=== PATIENT | female | born 1955 | race Caucasian/White ===

== ENCOUNTER 2016-07-05 10:44 | Emergency (ER) | payer MEDICARE, MEDICAID ==
[~2016-07-05] VITALS: Ht 162.6 cm; Wt 68.5 kg
[~2016-07-05 10:44] MED LIST: ALPR0.5T PO; AMLO5TAB2 PO; AMLO5TAB4 PO; CIPR500T94 PO; CLON0.5T PO; CLON1PAT2; DICY10CA53 PO; DOXY100T PO; DULO30CA2; DULO30CA2 PO; DULO60CA6 PO; ESCI10TA PO; ESOM40CA; ESOM40CA PO; FENT1PAT91 TP; FLUC100T7 PO; HYDR-971 PO; HYDR2TAB13 PO; HYDR4TAB13; HYDR4TAB13 PO; LEVO75TA PO; LIDO700A4 TP; LIPA1CAP12 PO; LISI10TA2 PO; LORA-434 PO; LORA2TAB PO; LORA2TAB89 PO; METO10TA81 PO; METO5VIA4 PO; METR500T PO; MORP30TA83 PO; NYST15CR2 TP; ONDA4TAB10 PO; OXYC10TA PO; OXYC10TA32; OXYC15TA60 PO; OXYC1TAB7 PO; OXYC1TAB9 PO; SILV400C TP; SIMV20TA3 PO; SULF1TAB24 PO; Sulfamethoxazole/Trimethoprim PO; TRAZ50TA15 PO; VANC125C2 PO; VITS56.7 TP; Vancomycin Hcl PO; ZOLP5TAB PO
[2016-07-05] MEDS ORDERED: LIDO:MAALOX:DONNATAL 1:1:1 15 ML SINGLE DOSE SWSW ONE (11:00)
[2016-07-05] MEDS ORDERED: ONDANSETRON PF 4 MG/2 ML VIAL. IV ONE (11:00)
[2016-07-05] MEDS ORDERED: IV NORMAL SALINE 1000ML BAG 1,000 ML IV SCH (11:00)
[2016-07-05 11:22] LABS: BILIRUBIN,URINE NEGATIVE (NEG); GLUCOSE,URINE NEGATIVE (NEG); NITRITE,URINE NEGATIVE (NEG); PH,URINE 6.5; PROTEIN,URINE >=300 mg/dL (NEG-TRACE); UROBILINOGEN,URINE 0.2 mg/dL (0.2 mg/dL)
--- NOTE | 2016-07-05 11:22 | EKG ---
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
--- NOTE | 2016-07-05 11:24 | PHYS DOC ---
Past Medical History Past Medical History: Alcoholism, Anxiety, Arthritis Additional Past Medical Histor: c diff, chronic n/v/d and abdominal pain, gastritis, renal insufficiency, Past Surgical History: Knee Replacement, Other Additional Past Surgical Histo: back and foot surger, LEFT KNEE REPLACEMENT X2 Additional Information: non-smoker Alcohol Use: Heavy Drug Use: None Adult General Chief Complaint Chief Complaint: ABDOMINAL PAIN HPI HPI Patient is a 60 year old female who presents with nausea, vomiting, and epigastric pain starting yesterday. She estimates approximately 10 episodes of emesis in the last 24 hours. She denies fevers, diarrhea, chest pain, or shortness of breath. She has a history of gastroparesis. She reports that she took 1 Reglan yesterday and another this morning at 0730. She vomited shortly after taking the Reglan this morning, however did not see the pill in the vomitus. She has a history of heavy alcohol use. She admits to drinking on and had one beer yesterday. She vomited shortly after drinking the period. She states that she is trying to quit drinking. She also has a history of hypertension. She did not take her blood pressure medication this morning. Upon arrival to the emergency department, her blood pressure significantly elevated and she is tachycardic. She states that she believes her pulse is high because she is in pain. She also informs me that she is allergic to morphine and Dilaudid is the only medication that ever helps her pain; fentanyl does not work. The patient has been seen in this emergency department 13 times in the past year, mostly for her chronic nausea, vomiting, and abdominal pain. She does not have a PCP. She has seen Dr. Amezquita with GI. Review of Systems Review of Systems Constitutional: Denies fever or chills. [] Eyes: Denies change in visual acuity, redness, or eye pain. [] HENT: Denies ear pain, nasal congestion or sore throat. [] Respiratory: Denies cough or shortness of breath. [] Cardiovascular: Denies chest pain. [] GI: Denies bloody stools or diarrhea. Reports nausea, vomiting, and epigastric pain. : Denies dysuria, hematuria or urinary frequency. [] Musculoskeletal: Denies back pain or joint pain. [] Integument: Denies rash or skin lesions. [] Neurologic: Denies headache, focal weakness or sensory changes. [] Endocrine: Denies polyuria or polydipsia. [] Psych: Denies anxiety or depression. [] All systems reviewed and negative unless otherwise stated in the HPI. Current Medications Current Medications Current Medications Medications (Trade) Dose Ordered Sig/Taz Start Time Stop Time Status Last Admin Dose Admin Ceftriaxone Sodium 1 gm/ Sodium Chloride 50 ml @ 100 mls/hr Q24H 07/06/16 13:00 07/06/16 13:00 DC Ceftriaxone Sodium (Rocephin 1gm Ivpb For Omni) 50 ml @ 100 mls/hr 1X ONCE 07/05/16 12:45 07/05/16 13:14 DC 07/05/16 12:46 100 MLS/HR Hydromorphone HCl 0.25 mg 0.25 mg PRN Q15MIN PRN 07/05/16 11:00 07/05/16 14:07 DC 07/05/16 12:27 0.25 MG Labetalol HCl 10 mg 10 mg 1X ONCE 07/05/16 12:45 07/05/16 12:46 DC 07/05/16 12:47 10 MG Multi-Ingredient Mouthwash/Gargle (Gi Cocktail Single Dose) 15 ml 1X ONCE 07/05/16 11:00 07/05/16 11:04 DC 07/05/16 11:20 15 ML Ondansetron HCl (Zofran) 4 mg 1X ONCE 07/05/16 11:00 07/05/16 11:04 DC 07/05/16 11:26 4 MG Sodium Chloride 1,000 ml @ 1,000 mls/hr 1X ONCE 07/05/16 12:45 07/05/16 13:44 DC 07/05/16 12:46 1,000 MLS/HR Sodium Chloride (Iv Sodium Chloride 0.9% 1000ml Bag) 1,000 ml @ 1,000 mls/hr Q1H 07/05/16 11:00 07/05/16 11:59 DC 07/05/16 11:20 1,000 MLS/HR Allergies Allergies Allergies Coded Allergies Type Severity Reaction Last Updated Verified levofloxacin Allergy Intermediate 01/27/16 Yes morphine Allergy Intermediate tolerates Dilaudid 01/27/16 Yes I S O L A T I O N *CONTACT* Allergy Unknown 04/06/16 Yes diphenhydramine HCl Adverse Reaction Intermediate "Jittery on the inside" 01/26 Yes Physical Exam Physical Exam Constitutional: Well developed, well nourished, no acute distress, non-toxic appearance. [] HENT: Normocephalic, atraumatic, oropharynx moist. [] Eyes: PERRLA, EOMI, conjunctiva normal, no discharge. [] Neck: Normal range of motion, no tenderness, supple, no stridor. [] Cardiovascular: Tachycardia, regular rhythm, no murmur. [] Lungs & Thorax: Bilateral breath sounds clear to auscultation without wheezes, rales, or rhonchi. [] Abdomen: Bowel sounds normal, soft, epigastric tenderness, no masses, no pulsatile masses. [] Skin: Warm, dry, no erythema, no rash. [] Extremities: No tenderness, ROM intact, no edema. 2+ DP pulses bilaterally. [] Neurologic: Alert and oriented X 3, normal motor function, normal sensory function, no focal deficits noted. [] Psychologic: Affect normal, judgement normal, mood normal. [] Current Patient Data Vital Signs Vital Signs Date Time Temp Pulse Resp B/P Pulse Ox O2 Delivery O2 Flow Rate FiO2 07/05/16 13:28 94 20 189/105 94 07/05/16 10:55 98.6 Room Air 98.6 Lab Values Laboratory Tests Test 07/05/16 10:50 07/05/16 11:25 Urine Collection Type Unknown Urine Color Yellow Urine Clarity Cloudy Urine pH 6.5 Urine Specific [place] 1.020 Urine Protein >=300mg/dL (NEG-TRACE) Urine Glucose (UA) Negativemg/dL (NEG) Urine Ketones (Stick) Negativemg/dL (NEG) Urine Blood Moderate (NEG) Urine Nitrite Negative (NEG) Urine Bilirubin Negative (NEG) Urine Urobilinogen Dipstick 0.2mg/dL (0.2 mg/dL) Urine Leukocyte Esterase Small (NEG) Urine RBC 3-5/HPF (0-2) Urine WBC 20-40/HPF (0-4) Urine Squamous Epithelial Cells Few/LPF Urine Bacteria Many/HPF (0-FEW) Urine Hyaline Casts Occasional/HPF White Blood Count 12.1x10^3/uL (4.0-11.0) H Red Blood Count 4.57x10^6/uL (3.50-5.40) Hemoglobin 14.3g/dL (12.0-15.5) Hematocrit 42.4% (36.0-47.0) Mean Corpuscular Volume 93fL (79-100) Mean Corpuscular Hemoglobin 31pg (25-35) Mean Corpuscular Hemoglobin Concent 34g/dL (31-37) Red Cell Distribution Width 17.0% (11.5-14.5) H Platelet Count 420x10^3/uL (140-400) #H Neutrophils (%) (Auto) 87% (31-73) H Lymphocytes (%) (Auto) 8% (24-48) L Monocytes (%) (Auto) 5% (0-9) Eosinophils (%) (Auto) 0% (0-3) Basophils (%) (Auto) 1% (0-3) Neutrophils # (Auto) 10.5x10^3uL (1.8-7.7) H Lymphocytes # (Auto) 0.9x10^3/uL (1.0-4.8) L Monocytes # (Auto) 0.6x10^3/uL (0.0-1.1) Eosinophils # (Auto) 0.0x10^3/uL (0.0-0.7) Basophils # (Auto) 0.1x10^3/uL (0.0-0.2) Segmented Neutrophils % 86% (35-66) H Lymphocytes % 6% (24-48) L Monocytes % 7% (0-10) Basophils % 1% (0-3) Platelet Estimate Increased (ADEQUATE) Stomatocytes Occ Sodium Level 136mmol/L (136-145) Potassium Level 3.0mmol/L (3.5-5.1) L Chloride Level 92mmol/L (98-107) L Carbon Dioxide Level 24mmol/L (21-32) Anion Gap 20 (6-14) H Blood Urea Nitrogen 20mg/dL (7-20) Creatinine 2.4mg/dL (0.6-1.0) H Estimated GFR (Cockcroft-Gault) 20.7 BUN/Creatinine Ratio 8 (6-20) Glucose Level 133mg/dL (70-99) H Calcium Level 10.9mg/dL (8.5-10.1) H Total Bilirubin 0.5mg/dL (0.2-1.0) Aspartate Amino Transferase (AST) 33U/L (15-37) Alanine Aminotransferase (ALT) 27U/L (14-59) Alkaline Phosphatase 87U/L (46-116) Troponin I Quantitative 0.017ng/mL (0.000-0.055) Total Protein 9.5g/dL (6.4-8.2) H Albumin 4.3g/dL (3.4-5.0) Albumin/Globulin Ratio 0.8 (1.0-1.7) L Lipase 171U/L (73-393) Laboratory Tests 07/05/16 11:25 Laboratory Tests 07/05/16 11:25 EKG EKG EKG at 1107. Heart rate 124 bpm. Sinus tachycardia without acute ischemic changes or STEMI, as interpreted by Dr. Landa. Radiology/Procedures Radiology/Procedures REASON: epigastric pain, n/v PROCEDURE: ACUTE ABDOMEN SERIES Abdomen series with chest, 3 views, 07/05/2016: History: Epigastric pain, nausea and vomiting The abdominal gas pattern is unremarkable. No free air seen in the abdomen. There is no evidence of organomegaly. Lower pelvic calcifications are probably phleboliths. There is a mild thoracolumbar scoliosis. Surgical rods and screws are present in the lower lumbar spine. The heart size and pulmonary vascularity are normal. No pulmonary infiltrates are seen. There is no evidence of pleural fluid. IMPRESSION: No acute abdominal abnormality is detected. Course & Med Decision Making Course & Med Decision Making Pertinent Labs and Imaging studies reviewed. (See chart for details) The patient is a 60-year-old female with history of chronic abdominal pain with nausea and vomiting who presents with epigastric pain with nausea and vomiting starting yesterday. On exam, her abdomen is soft and nonsurgical with epigastric tenderness. Upon arrival to the emergency department, her blood pressure significantly elevated and she is tachycardic. She is afebrile. She did not take her blood pressure medication today. EKG shows a sinus rhythm without acute ischemic changes or STEMI. Initial troponin level is negative. Abdominal x-ray does not show any obstruction or other acute abnormalities. Urine is positive for infection. There are no other significant laboratory abnormalities. Her pain improved with IV Dilaudid, given in small doses. She is given a dose of IV labetalol to decrease her blood pressure in her heart rate with adequate results. Heart rate decreased to 90s with blood pressure 190s/ 100s. She was also given a dose of Rocephin in the emergency department for her UTI. Patient is instructed to follow-up with her GI doctor. She is encouraged to establish a primary care doctor as well. She states that she has tried this in the past but has been denied due to her ongoing pain issues. We discussed the relationship of alcohol with gastritis. We also discussed the potential for both alcohol and narcotic withdrawal as possible causes of her symptoms. She states that she has detoxed from alcohol in the past and has never had withdrawal symptoms. She informs me that she has not taken narcotics at home for approximately 8 months. She has however been seen in the emergency department and admitted to the hospital many times for pain related issues and discharged home with narcotic medications. Today she is discharged home in stable condition with prescription for UTI, Zofran, and #10 [place]. She is again given contact information for Dr. Amezquita with GI for follow-up. Patient verbalizes understanding of all of the above and agrees with plan. Dragon Disclaimer Dragon Disclaimer This electronic medical record was generated, in whole or in part, using a voice recognition dictation system. Departure Departure Impression: Primary Impression: UTI (urinary tract infection) Additional Impressions: Abdominal pain Nausea & vomiting Disposition: 01 HOME, SELF-CARE Condition: IMPROVED Referrals: PREET AMEZQUITA MD Patient Instructions: Abdominal Pain, Ymsd-de-Payn, Nausea and Vomiting, Easy- to-Read, Urinary Tract Infection, Mlcc-[id number] Additional Instructions: Your urine shows a urinary tract infection. Please complete all the prescribed antibiotics. Please follow-up with your GI doctor regarding your abdominal pain with nausea and vomiting. Return to the emergency department if you have continued nausea and vomiting, severe pain, diarrhea, fever, or other new or concerning symptoms. Scripts Ondansetron (Zofran Odt)4 Mg Tab.rapdis1 Tab SL Q8HRS #10 TAB Prov:MANUEL CAVANAUGH 07/05/16 Hydrocodone/Apap 5-325 ([place] 5-325 Tablet)1 Each Tablet1 Tab PO PRN Q6HRS PRN PAIN #10 TAB Prov:MANUEL CAVANAUGH 07/05/16 Cephalexin (Keflex)500 Mg Capsule1 Cap PO BID #14 CAP Prov:MANUEL CAVANAUGH 07/05/16 Problem Qualifiers Primary Impression: UTI (urinary tract infection) Urinary tract infection type: acute cystitis Hematuria presence: with hematuria Qualified Code: N30.01 - Acute cystitis with hematuria Additional Impressions: Abdominal pain Abdominal location: epigastric Qualified Code: R10.13 - Epigastric pain Nausea & vomiting Vomiting type: unspecified Vomiting Intractability: non-intractable Qualified Code: R11.2 - Nausea with vomiting, unspecified MANUEL CAVANAUGH Jul 05, 2016 11:24
[2016-07-05] MEDS: HYDROMORPHONE 2 MG/ML VIAL. IV/SQ PRN ×2 (11:26→12:27)
--- NOTE | 2016-07-05 11:29 | RAD ---
Abdomen series with chest, 3 views, 07/05/2016: History: Epigastric pain, nausea and vomiting The abdominal gas pattern is unremarkable. No free air seen in the abdomen. There is no evidence of organomegaly. Lower pelvic calcifications are probably phleboliths. There is a mild thoracolumbar scoliosis. Surgical rods and screws are present in the lower lumbar spine. The heart size and pulmonary vascularity are normal. No pulmonary infiltrates are seen. There is no evidence of pleural fluid. IMPRESSION: No acute abdominal abnormality is detected.
[2016-07-05 11:37] LABS: BASO # 0.1 x10^3/uL (0.0-0.2); BASO % 1 % (0-3); EOS % 0 % (0-3); HEMATOCRIT 42.4 % (36.0-47.0); HEMOGLOBIN 14.3 g/dL (12.0-15.5); LYMPH # 0.9 x10^3/uL (1.0-4.8); LYMPH % 8 % (24-48); MEAN CORPUSCULAR HEMOGLOBIN 31 pg (25-35); MEAN CORPUSCULAR HGB CONC 34 g/dL (31-37); MEAN CORPUSCULAR VOLUME 93 fL (79-100); MONO % 5 % (0-9); NEUT % 87 % (31-73); PLATELET COUNT 420 x10^3/uL (140-400); RED BLOOD COUNT 4.57 x10^6/uL (3.50-5.40); WHITE BLOOD COUNT 12.1 x10^3/uL (4.0-11.0)
[2016-07-05 11:39] LABS: BACTERIA,URINE MANY /HPF (0-FEW); SQUAMOUS EPITHELIAL CELL,UR FEW /LPF; WBC,URINE 20-40 /HPF (0-4)
[2016-07-05 11:39] LABS: CALCIUM 10.9 mg/dL (8.5-10.1); CREATININE 2.4 mg/dL (0.6-1.0); GFR 20.7
[2016-07-05 11:45] LABS: ALBUMIN 4.3 g/dL (3.4-5.0); ALBUMIN/GLOBULIN RATIO 0.8 (1.0-1.7); TOTAL BILIRUBIN 0.5 mg/dL (0.2-1.0); TOTAL PROTEIN 9.5 g/dL (6.4-8.2)
[2016-07-05] MEDS ORDERED: CEFTRIAXONE 1GM IVPB FOR OMNI 50 ML IV ONE (12:45)
[2016-07-05] MEDS ORDERED: IV NORMAL SALINE 1000ML BAG 1,000 ML IV ONE (12:45)
[2016-07-05] MEDS ORDERED: LABETALOL 20 MG/4 ML DISP.SYRIN. IVP ONE (12:45)
[2016-07-05 13:24] LABS: % BASOS 1 % (0-3)
[2016-07-05 13:25] LABS: PLT ESTIMATE INCREASED (ADEQUATE)
[2016-07-05 13:27] LABS: STOMATOCYTES OCC
[2016-07-05 13:28] VITALS: BP 189/105
[2016-07-05] MEDS ORDERED: CEPH-264 PO (13:42)
[2016-07-05] MEDS ORDERED: ONDA4TAB10 SL (13:42)
[2016-07-05] MEDS ORDERED: HYDR-971 PO (13:42)
[2016-07-06] MEDS ORDERED: CEFTRIAXONE SODIUM 1 GM in IV NORMAL SALINE 50ML 50 ML IV SCH (13:00)
[2016-07-10] MEDS ORDERED: HYDR2TAB13 PO (13:03)
== END 2016-07-05 14:07 | disposition home or self-care (01) ==
LOC: ER 10:44
DX: N39.0 Urinary tract infection, site not specified (principal); R11.2 Nausea with vomiting, unspecified; R10.13 Epigastric pain; F41.9 Anxiety disorder, unspecified; M19.90 Unspecified osteoarthritis, unspecified site; Z96.659 Presence of unspecified artificial knee joint; F10.20 Alcohol dependence, uncomplicated; Y90.9 Presence of alcohol in blood, level not specified; Z88.5 Allergy status to narcotic agent; Z88.8 Allergy status to other drugs, medicaments and biological substances; Z88.1 Allergy status to other antibiotic agents; Z91.041 Radiographic dye allergy status
CPT/HCPCS: 99285; J0690; J1170; J2405; J3490; J7030; 36415; 74022; 80053; 81001; 83690; 84484; 85007; 85027; 87086; 87186; 93005

== ENCOUNTER 2016-08-13 11:57 | Inpatient (IN) | payer MEDICARE, MEDICAID ==
[~2016-08-13] VITALS: Ht 154.9 cm; Wt 68.0 kg
[~2016-08-13 11:57] MED LIST changes: +ACET325T16 PO; +ACID1TAB14 PO; +CEPH-264 PO; +ESOM20CA30 PO; +IBUP-1060 PO; +ONDA4TAB10 SL; +OSEL30CA PO; +OXYC5TAB PO
[2016-08-13] MEDS ORDERED: FENTANYL PF 100 MCG/2 ML VIAL. IV ONE (14:30)
[2016-08-13] MEDS ORDERED: IV NORMAL SALINE 500ML BAG 500 ML IV ONE (14:30)
--- NOTE | 2016-08-13 14:42 | EKG ---
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
[2016-08-13 14:52] LABS: CALCIUM 9.2 mg/dL (8.5-10.1); CREATININE 2.8 mg/dL (0.6-1.0); GFR 17.3; POTASSIUM 4.5 mmol/L (3.5-5.1)
[2016-08-13 14:53] LABS: BASO % 0 % (0-3); EOS % 3 % (0-3); HEMATOCRIT 31.7 % (36.0-47.0); HEMOGLOBIN 10.4 g/dL (12.0-15.5); LYMPH # 2.4 x10^3/uL (1.0-4.8); LYMPH % 20 % (24-48); MEAN CORPUSCULAR HEMOGLOBIN 31 pg (25-35); MEAN CORPUSCULAR HGB CONC 33 g/dL (31-37); MEAN CORPUSCULAR VOLUME 94 fL (79-100); MONO % 13 % (0-9); NEUT % 64 % (31-73); PLATELET COUNT 385 x10^3/uL (140-400); RED BLOOD COUNT 3.37 x10^6/uL (3.50-5.40); RED CELL DISTRIBUTION WIDTH 15.8 % (11.5-14.5); WHITE BLOOD COUNT 12.1 x10^3/uL (4.0-11.0)
[2016-08-13 14:53] LABS: BILIRUBIN,URINE NEGATIVE (NEG); GLUCOSE,URINE NEGATIVE (NEG); NITRITE,URINE NEGATIVE (NEG); PROTEIN,URINE 100 mg/dL (NEG-TRACE); UROBILINOGEN,URINE 0.2 mg/dL (0.2 mg/dL)
[2016-08-13 15:13] LABS: BACTERIA,URINE MANY /HPF (0-FEW); RBC,URINE OCC /HPF (0-2); WBC,URINE >40 /HPF (0-4)
[2016-08-13 15:14] LABS: BARBITURATES NEG (NEG); BENZODIAZEPINES NEG (NEG); CANNABINOIDS NEG (NEG); COCAINE NEG (NEG); METHADONE NEG (NEG); OPIATES NEG (NEG); PHENCYCLIDINE NEG (NEG); SQUAMOUS EPITHELIAL CELL,UR OCC /LPF
--- NOTE | 2016-08-13 15:49 | RAD ---
INDICATION: multiple falls with head and neck pain COMPARISON: 08/11/2016 TECHNIQUE: Axial CT images obtained through the head and cervical spine without intravenous contrast. FINDINGS: No intracranial hemorrhage. No midline shift. Basal cisterns patents. Ventricles and sulci are globally prominent. Eastman white differentiation is maintained without evidence of acute ischemia to large vessel territory. No acute osseous abnormality. Orbits and paranasal sinuses unremarkable. Scattered foci of low attenuation within the white matter. Cervical spine: No definite acute fracture or dislocation. No paravertebral hematoma. Degenerative changes. IMPRESSION: 1. No acute intracranial hemorrhage. 2. Scattered regions of low attenuation within the white matter. Non-specific in nature but frequently secondary to chronic small vessel ischemic disease. 3. Prominence of ventricles and sulci which is frequently secondary to age related volume loss. 4. Degenerative changes without acute fracture of cervical spine. 5. Apparent 20 x 7 mm expansile lytic focus in the right posterior aspect of the calvarium this has been present since at least 2008 and therefore would favor benign causes. May be slightly increased in size. PQRS Compliance Statement: One or more of the following individualized dose reduction techniques were utilized for this examination: 1. Automated exposure control 2. Adjustment of the mA and/or kV according to patient size 3. Use of iterative reconstruction technique
--- NOTE | 2016-08-13 16:30 | PHYS DOC ---
Past Medical History Past Medical History: Alcoholism, Anxiety, Arthritis Additional Past Medical Histor: c diff, chronic n/v/d and abdominal pain, gastritis, renal insufficiency Past Surgical History: Knee Replacement, Other Additional Past Surgical Histo: back and foot surger, LEFT KNEE REPLACEMENT X2 Alcohol Use: Occasionally Drug Use: None Adult General Chief Complaint Chief Complaint: LOWER BACK PAIN OR INJURY HPI HPI Patient is a 60 year old female who suffers from alcoholism and chronic pain who presents by EMS for severe pain all over her body and multiple falls recently. She states she gets up and her legs follow-up from under her. She has fallen multiple times in the past few days and hit her head each time. She notes severe pain all over her body and cannot localize what hurts the worst. She denies any focal bony pain. She denies chest pain, dyspnea, abdominal pain, nausea or vomiting, fever or chills, vision changes, numbness, tingling, bowel or bladder dysfunction, saddle anesthesia. She states she is taking no [id number] medicines for her chronic or acute pain. Review of Systems Review of Systems Constitutional: Denies fever or chills [] Eyes: Denies change in visual acuity, redness, or eye pain [] HENT: Denies nasal congestion or sore throat [] Respiratory: Denies cough or shortness of breath [] Cardiovascular: No additional information not addressed in HPI [] GI: Denies abdominal pain, nausea, vomiting, bloody stools or diarrhea [] : Denies dysuria or hematuria [] Musculoskeletal: Denies specific joint pain [] Integument: Denies rash or skin lesions [] Neurologic: Denies focal weakness or sensory changes [] Endocrine: Denies polyuria or polydipsia [] Current Medications Current Medications Current Medications Medications (Trade) Dose Ordered Sig/Taz Start Time Stop Time Status Last Admin Dose Admin Fentanyl Citrate (Fentanyl 2ml Vial) 50 mcg 1X ONCE 08/13/16 14:30 08/13/16 14:31 DC 08/13/16 14:37 50 MCG Sodium Chloride (Iv Sodium Chloride 0.9% 500ml Bag) 500 ml @ 500 mls/hr 1X ONCE 08/13/16 14:30 08/13/16 15:29 DC 08/13/16 14:30 500 MLS/HR Allergies Allergies Allergies Coded Allergies Type Severity Reaction Last Updated Verified levofloxacin Allergy Intermediate 07/26/16 Yes morphine Allergy Intermediate tolerates Dilaudid 07/26/16 Yes I S O L A T I O N *CONTACT* Allergy Unknown 07/26/16 Yes diphenhydramine HCl Adverse Reaction Intermediate "Jittery on the inside" 07/26 Yes Physical Exam Physical Exam Constitutional: Well developed, well nourished, mild distress, non-toxic appearance. Constantly adjusting position in bed. Smells of poor hygiene. [] HENT: Normocephalic, atraumatic, bilateral external ears normal, oropharynx moist, no oral exudates, nose normal. [] Eyes: PERRLA, EOMI, conjunctiva normal, no discharge. [] Neck: Normal range of motion, no tenderness, supple. [] Cardiovascular:Heart rate regular rhythm [] Lungs & Thorax: Bilateral breath sounds clear to auscultation [] Abdomen: Bowel sounds normal, soft, no tenderness. [] Skin: Warm, dry, no erythema, no rash. [] Back: No midline spinal tenderness, no CVA tenderness. Has diffuse bilateral paraspinal tenderness with no visual or palpable abnormality. [] Extremities: No focal bony tenderness, ROM intact, no edema. [] Neurologic: Alert and oriented X 3, normal motor function, normal sensory function, no focal deficits noted, cranial nerves II through XII intact. [] Psychologic: Affect normal, judgement normal, mood normal. [] Current Patient Data Vital Signs Vital Signs Date Time Temp Pulse Resp B/P Pulse Ox O2 Delivery O2 Flow Rate FiO2 08/13/16 16:00 74 20 141/81 97 08/13/16 13:15 97.8 Room Air 97.8 Lab Values Laboratory Tests Test 08/13/16 14:30 08/13/16 14:40 White Blood Count 12.1x10^3/uL (4.0-11.0) H Red Blood Count 3.37x10^6/uL (3.50-5.40) L Hemoglobin 10.4g/dL (12.0-15.5) L Hematocrit 31.7% (36.0-47.0) L Mean Corpuscular Volume 94fL (79-100) Mean Corpuscular Hemoglobin 31pg (25-35) Mean Corpuscular Hemoglobin Concent 33g/dL (31-37) Red Cell Distribution Width 15.8% (11.5-14.5) H Platelet Count 385x10^3/uL (140-400) Neutrophils (%) (Auto) 64% (31-73) Lymphocytes (%) (Auto) 20% (24-48) L Monocytes (%) (Auto) 13% (0-9) H Eosinophils (%) (Auto) 3% (0-3) Basophils (%) (Auto) 0% (0-3) Neutrophils # (Auto) 7.7x10^3uL (1.8-7.7) Lymphocytes # (Auto) 2.4x10^3/uL (1.0-4.8) Monocytes # (Auto) 1.6x10^3/uL (0.0-1.1) H Eosinophils # (Auto) 0.4x10^3/uL (0.0-0.7) Basophils # (Auto) 0.0x10^3/uL (0.0-0.2) Sodium Level 134mmol/L (136-145) L Potassium Level 4.5mmol/L (3.5-5.1) Chloride Level 103mmol/L (98-107) Carbon Dioxide Level 25mmol/L (21-32) Anion Gap 6 (6-14) Blood Urea Nitrogen 21mg/dL (7-20) H Creatinine 2.8mg/dL (0.6-1.0) H Estimated GFR (Cockcroft-Gault) 17.3 Glucose Level 96mg/dL (70-99) Calcium Level 9.2mg/dL (8.5-10.1) Creatine Kinase 128U/L (26-192) Urine Collection Type U cath Urine Color Yellow Urine Clarity Cloudy Urine pH 6.0 Urine Specific [place] 1.010 Urine Protein 100mg/dL (NEG-TRACE) Urine Glucose (UA) Negativemg/dL (NEG) Urine Ketones (Stick) Negativemg/dL (NEG) Urine Blood Small (NEG) Urine Nitrite Negative (NEG) Urine Bilirubin Negative (NEG) Urine Urobilinogen Dipstick 0.2mg/dL (0.2 mg/dL) Urine Leukocyte Esterase Large (NEG) Urine RBC Occ/HPF (0-2) Urine WBC >40/HPF (0-4) Urine Squamous Epithelial Cells Occ/LPF Urine Transitional Epithelial Cells Occ/LPF Urine Renal Epithelial Cells Occ/LPF Urine Bacteria Many/HPF (0-FEW) Urine Mucus Slight/LPF Urine Opiates Screen Neg (NEG) Urine Methadone Screen Neg (NEG) Urine Barbiturates Neg (NEG) Urine Phencyclidine Screen Neg (NEG) Urine Amphetamine/Methamphetamine Neg (NEG) Urine Benzodiazepines Screen Neg (NEG) Urine Cocaine Screen Neg (NEG) Urine Cannabinoids Screen Neg (NEG) Urine Ethyl Alcohol (NEG) Laboratory Tests 08/13/16 14:30 Laboratory Tests 08/13/16 14:30 EKG EKG EKG as interpreted by me as normal sinus rhythm, rate 74, no ST-T changes, normal intervals, no ectopy Radiology/Procedures Radiology/Procedures CT head and C-spine without contrast IMPRESSION: 1. No acute intracranial hemorrhage. 2. Scattered regions of low attenuation within the white matter. Non-specific in nature but frequently secondary to chronic small vessel ischemic disease. 3. Prominence of ventricles and sulci which is frequently secondary to age related volume loss. 4. Degenerative changes without acute fracture of cervical spine. 5. Apparent 20 x 7 mm expansile lytic focus in the right posterior aspect of the calvarium this has been present since at least 2008 and therefore would favor benign causes. May be slightly increased in size. DICTATED and SIGNED BY: ELA DEVLIN MD DATE: 08/13/161531 Course & Med Decision Making Course & Med Decision Making Pertinent Labs and Imaging studies reviewed. (See chart for details) Imaging is unremarkable as above. Laboratory evaluation reveals acute on chronic renal insufficiency and urinary tract infection. Will admit for hydration and PT/OT evaluation as it is obvious she is not caring for herself appropriately. Discussed case with Dr. Marin, who will. Dragon Disclaimer Dragon Disclaimer This electronic medical record was generated, in whole or in part, using a voice recognition dictation system. Departure Departure Impression: Primary Impression: Fall Additional Impression: Acute renal failure Disposition: ADMITTED INPATIENT Condition: STABLE Referrals: UNKNOWN PCP NAME (PCP) Problem Qualifiers Primary Impression: Fall Encounter type: initial encounter Qualified Code: W19.XXXA - Unspecified fall, initial encounter Additional Impression: Acute renal failure Acute renal failure type: unspecified Qualified Code: N17.9 - Acute kidney failure, unspecified Stephany HOROWITZ MD Aug 13, 2016 16:30
[2016-08-13] MEDS ORDERED: ONDANSETRON PF 4 MG/2 ML VIAL. IV PRN (18:00)
[2016-08-13] MEDS ORDERED: ACETAMINOPHEN 325 MG TABLET. PO PRN ×2 (18:00→22:30)
[2016-08-13] MEDS ORDERED: CEFTRIAXONE SODIUM 1 GM in IV NORMAL SALINE 50ML 50 ML IV SCH (20:00)
[2016-08-13 21:02] VITALS: BP 137/86
[2016-08-13] MEDS ORDERED: ALPR0.5T PO (21:41)
[2016-08-13] MEDS ORDERED: HYDROMORPHONE 2 MG/ML VIAL. IVP PRN (22:30)
[2016-08-13] MEDS ORDERED: HYDROMORPHONE 2 MG/ML VIAL. IV ONE (22:30)
[2016-08-13 23:00] VITALS: BP 158/83
[2016-08-13] MEDS: ALPRAZOLAM 0.5 MG TABLET PO PRN (23:01)
[2016-08-14] VITALS (7 sets, daily range): BP systolic 90–115; BP diastolic 60–78
[2016-08-14] MEDS: OXYCODONE IR 5 MG TABLET. PO PRN ×4 (01:28→20:26)
--- NOTE | 2016-08-14 01:40 | HP ---
ADMIT DATE: 08/13/2016 CHIEF COMPLAINT: Status post fall x 2 with back and shoulder injury. HISTORY OF PRESENT ILLNESS: The patient is a 60-year-old woman, well known to our service with history of alcohol use and chronic pain issues, who actually had been discharged from this hospital on 08/02/2016. The patient relates that she had been doing fairly well at home since then, had not been tolerating in any alcohol whatsoever. Last Saturday; however, she had a fall at home when getting up to go to the bathroom. She was unable to get up by herself called her daughter, who actually brought her to the Emergency Room. No injuries were found. The following morning; however, the patient once again got up and fell once again unable to get up. Unfortunately, her phone was turned off and the patient essentially remained on the floor for the next 2 days, till her neighbor came to check up on her today. She was brought in to the ER by her neighbor. She is unclear if she had loss of consciousness with these episodes. She said everything just gave out. Further details not known. In the Emergency Room, no bony injury was noted. She did have bruising and was admitted for pain control. PAST MEDICAL HISTORY: Alcoholism, anxiety, diffuse abdominal pain, gastritis, renal insufficiency, osteoarthritis, status post lower back surgery, status post knee replacement as well as back and foot surgery. FAMILY HISTORY: Noncontributory. She has no contact to family safe for daughter. SOCIAL HISTORY: Lives by herself. History of severe alcohol use, has been try according to herself for the past couple of months. No tobacco use. ALLERGIES: INCLUDE LEVOFLOXACIN AND MORPHINE WELL BENADRYL. MEDICATIONS: MAR reconciled with home medications. REVIEW OF SYSTEMS: The patient complains of severe pain in her lower back, in her shoulder and head with falling onto the front of her head and back of her head with each fall. Denies any nausea, vomiting, very hungry. No other focal symptoms. PHYSICAL EXAMINATION: VITAL SIGNS: From today shows a blood pressure of 137/86, heart rate of 78, respiratory rate at 18. She is afebrile. GENERAL: This is a well-nourished, a very pale appearing, 60-year-old, woman, alert and oriented, in no acute distress. HEENT: Shows no scleral icterus. Oral mucosa is pink and moist. NECK: Supple. LUNGS: Fairly clear anteriorly. HEART: Regular rate and rhythm. ABDOMEN: Has positive bowel sounds, soft, nontender. EXTREMITIES: Show no edema. Bruising noted over her right upper extremity close to the axillary, no other bruises over lower extremities, back hips or torso. LABORATORY DATA: CBC from today shows a WBC of 12.1, hemoglobin 10.4, platelets of 385. Of note, hemoglobin with last admission was in the 7-8 range. Chemistries with BUN and creatinine of 21 and 2.8. Typically, creatinine baseline at 1.6 and 1.8. Electrolytes with a sodium of 134, creatine kinase was 128. Urinalysis with greater than 40 wbc's, negative nitrite. Drug screen completely negative. RADIOGRAPHIC IMAGING: CT of the head and cervical spine without contrast shows no acute intracranial hemorrhage, low attenuation areas in the white matter, nonspecific in nature, but suspicious for chronic small vessel ischemic disease. Degenerative changes seen, but no acute fracture or other injury. ASSESSMENT AND PLAN: The patient is a 60-year-old woman status post fall x 2 found on the ground at home by neighbor after approximately 2 days. Now admitted for pain control. Interestingly enough, her CK is actually perfectly normal, ruling out a rhabdomyolysis. We will treat with IV fluids. She does have a history for IV drug seeking behavior. We will get her started tonight with IV Dilaudid, but otherwise will switch to p.o. pain medication. We will continue all her other home medications. She has not bee drinking alcohol since her last hospitalization, and with negative drug screen, will hold off on CIWA protocol for now. She will be evaluated by OT, PT in a.m. She has declined SNF placement in the past. We will rediscuss with her, would most likely benefit from ongoing OT, PT rehabilitation. MARK MONTES MD DR: MIKE/hal JOB#: [id number] / [id number] GREGORY
[2016-08-14] MEDS: PANTOPRAZOLE 40 MG TABLET. PO SCH (08:19)
[2016-08-14] MEDS: ESCITALOPRAM 10 MG TABLET. PO SCH (08:59)
[2016-08-14] MEDS: LACTOBACILLUS ACIDOPH & BULGAR 1 TABLET. PO SCH ×3 (08:59→20:26)
[2016-08-14] MEDS: ALPRAZOLAM 0.5 MG TABLET PO PRN ×2 (08:59→20:26)
[2016-08-14] MEDS: LISINOPRIL 10 MG TABLET PO SCH (09:00)
--- NOTE | 2016-08-14 14:44 | PDOC ---
PROGRESS NOTES Chief Complaint Chief Complaint s/p fall Back pain ASSESSMENT AND PLAN: 1. Acute on chronic back pain: long-standing hx of back pain, post surgery in distant past. now aggravated s/p falls x2 and down for 2 days. current oxy not covering sufficiently. increase dose and frequency. She does have IV dilaudid PRN prior to activity. 2. Narcotic dependence: try and avoid IV meds as possible. difficult to manage with true underlying pain issues 3. EtOH dependence: states she has been "dry" since her last admit. drug screen neg. observe for W/D sx. 4. GILES: 2/2 dehydration/vasomotor. cont IVF/PO fluids. monitor creat. 5. CKD: baseline creat about 1.5 6. UTI: on empiric ceftriax. awaiting cult and sens 7. Dispo: OT/PT eval in progress; limited by severe pain. She has declined SNF placement in the past and has only a few days available. would most likely benefit from ongoing OT/ PT Vitals Vitals Vital Signs Date Time Temp Pulse Resp B/P Pulse Ox O2 Delivery O2 Flow Rate FiO2 08/14/16 11:05 97.9 84 18 100/73 97 Room Air 97.9 Physical Exam General: Alert, Oriented X3, Cooperative Heart: Regular rate Lungs: Clear Abdomen: Normal bowel sounds, No tenderness Extremities: No edema Skin: No rashes Labs LABS Laboratory Tests Test 08/13/16 14:30 08/13/16 14:40 White Blood Count 12.1x10^3/uL (4.0-11.0) Red Blood Count 3.37x10^6/uL (3.50-5.40) Hemoglobin 10.4g/dL (12.0-15.5) Hematocrit 31.7% (36.0-47.0) Mean Corpuscular Volume 94fL (79-100) Mean Corpuscular Hemoglobin 31pg (25-35) Mean Corpuscular Hemoglobin Concent 33g/dL (31-37) Red Cell Distribution Width 15.8% (11.5-14.5) Platelet Count 385x10^3/uL (140-400) Neutrophils (%) (Auto) 64% (31-73) Lymphocytes (%) (Auto) 20% (24-48) Monocytes (%) (Auto) 13% (0-9) Eosinophils (%) (Auto) 3% (0-3) Basophils (%) (Auto) 0% (0-3) Neutrophils # (Auto) 7.7x10^3uL (1.8-7.7) Lymphocytes # (Auto) 2.4x10^3/uL (1.0-4.8) Monocytes # (Auto) 1.6x10^3/uL (0.0-1.1) Eosinophils # (Auto) 0.4x10^3/uL (0.0-0.7) Basophils # (Auto) 0.0x10^3/uL (0.0-0.2) Sodium Level 134mmol/L (136-145) Potassium Level 4.5mmol/L (3.5-5.1) Chloride Level 103mmol/L (98-107) Carbon Dioxide Level 25mmol/L (21-32) Anion Gap 6 (6-14) Blood Urea Nitrogen 21mg/dL (7-20) Creatinine 2.8mg/dL (0.6-1.0) Estimated GFR (Cockcroft-Gault) 17.3 Glucose Level 96mg/dL (70-99) Calcium Level 9.2mg/dL (8.5-10.1) Creatine Kinase 128U/L (26-192) Urine Collection Type U cath Urine Color Yellow Urine Clarity Cloudy Urine pH 6.0 Urine Specific [place] 1.010 Urine Protein 100mg/dL (NEG-TRACE) Urine Glucose (UA) Negativemg/dL (NEG) Urine Ketones (Stick) Negativemg/dL (NEG) Urine Blood Small (NEG) Urine Nitrite Negative (NEG) Urine Bilirubin Negative (NEG) Urine Urobilinogen Dipstick 0.2mg/dL (0.2 mg/dL) Urine Leukocyte Esterase Large (NEG) Urine RBC Occ/HPF (0-2) Urine WBC >40/HPF (0-4) Urine Squamous Epithelial Cells Occ/LPF Urine Transitional Epithelial Cells Occ/LPF Urine Renal Epithelial Cells Occ/LPF Urine Bacteria Many/HPF (0-FEW) Urine Mucus Slight/LPF Urine Opiates Screen Neg (NEG) Urine Methadone Screen Neg (NEG) Urine Barbiturates Neg (NEG) Urine Phencyclidine Screen Neg (NEG) Urine Amphetamine/Methamphetamine Neg (NEG) Urine Benzodiazepines Screen Neg (NEG) Urine Cocaine Screen Neg (NEG) Urine Cannabinoids Screen Neg (NEG) Urine Ethyl Alcohol (NEG) Review of Systems Review of Systems c/o severe back pain, yanely w/ moving. at rest she is doing ok. states oxy "not touching it" MARK MONTES MD Aug 14, 2016 14:44
[2016-08-14] MEDS: IV 1/2 NORMAL SALINE 1,000 ML IV SCH (15:22)
[2016-08-14] MEDS: POLYETHYLENE GLYCOL 3350 17 GM PACKET. PO SCH (15:23)
[2016-08-14] MEDS: HYDROMORPHONE 2 MG/ML VIAL. IVP PRN ×2 (15:49→22:09)
[2016-08-14] MEDS ORDERED: CEFTRIAXONE SODIUM 1 GM in IV NORMAL SALINE 50ML 50 ML IV SCH (21:00)
[2016-08-15] MEDS: OXYCODONE IR 5 MG TABLET. PO PRN ×4 (01:13→16:52)
[2016-08-15] MEDS: IV 1/2 NORMAL SALINE 1,000 ML IV SCH ×3 (01:15→16:55)
[2016-08-15 03:00] VITALS: BP 113/73
[2016-08-15] MEDS: HYDROMORPHONE 2 MG/ML VIAL. IVP PRN ×4 (03:13→21:42)
[2016-08-15 06:13] LABS: BASO # 0.1 x10^3/uL (0.0-0.2); BASO % 1 % (0-3); EOS % 5 % (0-3); HEMATOCRIT 29.2 % (36.0-47.0); HEMOGLOBIN 9.6 g/dL (12.0-15.5); LYMPH # 1.9 x10^3/uL (1.0-4.8); LYMPH % 24 % (24-48); MEAN CORPUSCULAR HEMOGLOBIN 31 pg (25-35); MEAN CORPUSCULAR HGB CONC 33 g/dL (31-37); MEAN CORPUSCULAR VOLUME 95 fL (79-100); MONO % 12 % (0-9); NEUT % 58 % (31-73); PLATELET COUNT 345 x10^3/uL (140-400); RED BLOOD COUNT 3.07 x10^6/uL (3.50-5.40); RED CELL DISTRIBUTION WIDTH 15.6 % (11.5-14.5); WHITE BLOOD COUNT 8.1 x10^3/uL (4.0-11.0)
[2016-08-15 06:30] LABS: CALCIUM 8.7 mg/dL (8.5-10.1); CREATININE 2.3 mg/dL (0.6-1.0); GFR 21.7; POTASSIUM 4.7 mmol/L (3.5-5.1)
[2016-08-15 07:00] VITALS: BP 110/68
[2016-08-15] MEDS: POLYETHYLENE GLYCOL 3350 17 GM PACKET. PO SCH (09:00)
[2016-08-15] MEDS: LACTOBACILLUS ACIDOPH & BULGAR 1 TABLET. PO SCH ×3 (09:00→21:31)
[2016-08-15] MEDS: LISINOPRIL 10 MG TABLET PO SCH (09:00)
[2016-08-15 11:00] VITALS: BP 113/67
[2016-08-15] MEDS: PANTOPRAZOLE 40 MG TABLET. PO SCH ×2 (11:01→21:31)
[2016-08-15] MEDS: ESCITALOPRAM 10 MG TABLET. PO SCH (11:01)
--- NOTE | 2016-08-15 13:48 | PDOC ---
PROGRESS NOTES Chief Complaint Chief Complaint s/p fall Back pain ASSESSMENT AND PLAN: 1. Acute on chronic back pain: long-standing hx of back pain, post surgery in distant past. now aggravated s/p falls x2 and down for 2 days. oxyIR still not adequate, but she can deal with it. using dilaudid regularly 2. Narcotic dependence: try and avoid IV meds as possible. difficult to manage with true underlying pain issues 3. EtOH dependence: states she has been "dry" since her last admit. drug screen neg. observe for W/D sx. 4. GILES: 2/2 dehydration/vasomotor. improving. cont IVF/PO fluids. monitor creat. 5. CKD: baseline creat about 1.5 6. UTI: E.coli with high resistance. switch to cipro 7. Dispo: Home with services in AM Vitals Vitals Vital Signs Date Time Temp Pulse Resp B/P Pulse Ox O2 Delivery O2 Flow Rate FiO2 08/15/16 11:00 97.7 80 18 113/67 97 Room Air 97.7 Physical Exam General: Alert, Oriented X3, Cooperative Heart: Regular rate Lungs: Clear Abdomen: Normal bowel sounds, No tenderness Extremities: No edema Skin: No rashes Labs LABS Laboratory Tests Test 08/15/16 05:27 White Blood Count 8.1x10^3/uL (4.0-11.0) Red Blood Count 3.07x10^6/uL (3.50-5.40) Hemoglobin 9.6g/dL (12.0-15.5) Hematocrit 29.2% (36.0-47.0) Mean Corpuscular Volume 95fL (79-100) Mean Corpuscular Hemoglobin 31pg (25-35) Mean Corpuscular Hemoglobin Concent 33g/dL (31-37) Red Cell Distribution Width 15.6% (11.5-14.5) Platelet Count 345x10^3/uL (140-400) Neutrophils (%) (Auto) 58% (31-73) Lymphocytes (%) (Auto) 24% (24-48) Monocytes (%) (Auto) 12% (0-9) Eosinophils (%) (Auto) 5% (0-3) Basophils (%) (Auto) 1% (0-3) Neutrophils # (Auto) 4.7x10^3uL (1.8-7.7) Lymphocytes # (Auto) 1.9x10^3/uL (1.0-4.8) Monocytes # (Auto) 1.0x10^3/uL (0.0-1.1) Eosinophils # (Auto) 0.4x10^3/uL (0.0-0.7) Basophils # (Auto) 0.1x10^3/uL (0.0-0.2) Sodium Level 136mmol/L (136-145) Potassium Level 4.7mmol/L (3.5-5.1) Chloride Level 104mmol/L (98-107) Carbon Dioxide Level 23mmol/L (21-32) Anion Gap 9 (6-14) Blood Urea Nitrogen 25mg/dL (7-20) Creatinine 2.3mg/dL (0.6-1.0) Estimated GFR (Cockcroft-Gault) 21.7 Glucose Level 97mg/dL (70-99) Calcium Level 8.7mg/dL (8.5-10.1) Review of Systems Review of Systems pain tolerable. requesting dilaudid as preferred med MARK MONTES MD Aug 15, 2016 13:48
[2016-08-15 15:00] VITALS: BP 115/68
[2016-08-15] MEDS ORDERED: SIMETHICONE 80 MG TAB.CHEW PO PRN (18:45)
[2016-08-15] MEDS ORDERED: MAG HYDROX/ALUMINUM HYD/SIMETH 30 ML ORAL.SUSP PO PRN (18:45)
[2016-08-15] MEDS ORDERED: CALCIUM CARBONATE 500 MG TAB.CHEW PO PRN (18:45)
[2016-08-15 19:00] VITALS: BP 108/76
[2016-08-15] MEDS ORDERED: CIPROFLOXACIN HCL 250 MG TABLET PO SCH (21:15)
[2016-08-15] MEDS: ALPRAZOLAM 0.5 MG TABLET PO PRN (21:41)
[2016-08-15 23:00] VITALS: BP 144/83
[2016-08-15] MEDS ORDERED: NORMAL SALINE IV SCH (23:00)
[2016-08-15] MEDS ORDERED: TOBRAMYCIN SULFATE IV SCH (23:00)
[2016-08-15] MEDS ORDERED: TOBRAMYCIN PER PHARMACY MC PRN (23:15)
[2016-08-16] MEDS: HYDROMORPHONE 2 MG/ML VIAL. IVP PRN ×5 (00:14→22:54)
[2016-08-16 03:00] VITALS: BP_SYST 133; BP_SYST 144; BP_DIAS 83; BP_DIAS 84
[2016-08-16] MEDS: OXYCODONE IR 5 MG TABLET. PO PRN (03:20)
[2016-08-16] MEDS: IV 1/2 NORMAL SALINE 1,000 ML IV SCH ×2 (04:53→15:15)
[2016-08-16] MEDS ORDERED: TOBRAMYCIN SULFATE IV SCH (06:00)
[2016-08-16] MEDS ORDERED: NORMAL SALINE IV SCH (06:00)
[2016-08-16 07:00] VITALS: BP 130/86
[2016-08-16] MEDS: POLYETHYLENE GLYCOL 3350 17 GM PACKET. PO SCH (09:00)
--- NOTE | 2016-08-16 09:14 | PDOC ---
Infectious Disease Note ROS ROS GEN: Denies fevers, chills, sweats HEENT: Denies blurred vision, sore throat CV: Denies chest pain RESP: Denies shortness of air, cough GI: Denies n/v/d NEURO: Denies confusion, dizziness MSK: Denies weakness, joint pain/swelling Vital Sign Vital Signs Vital Signs Date Time Temp Pulse Resp B/P Pulse Ox O2 Delivery O2 Flow Rate FiO2 08/16/16 04:20 96 Room Air 08/16/16 03:00 98.8 83 144/83 98.8 08/16/16 03:00 18 Objective Assessment S/P Fall UTI Diarrhea rule out c diff h/o ETOH Plan Plan of Care po vanco check c diff d/c maday,, cipro for 3 days fluids TESS ONEILL MD Aug 16, 2016 09:14
[2016-08-16] MEDS: PANTOPRAZOLE 40 MG TABLET. PO SCH ×2 (09:18→18:44)
[2016-08-16] MEDS: LACTOBACILLUS ACIDOPH & BULGAR 1 TABLET. PO SCH ×3 (09:18→20:47)
[2016-08-16] MEDS: ESCITALOPRAM 10 MG TABLET. PO SCH (09:18)
[2016-08-16] MEDS: LISINOPRIL 10 MG TABLET PO SCH (09:20)
[2016-08-16 11:00] VITALS: BP 107/69
[2016-08-16] MEDS: ALPRAZOLAM 0.5 MG TABLET PO PRN ×2 (11:24→22:54)
[2016-08-16] MEDS: CIPROFLOXACIN HCL 250 MG TABLET PO SCH ×2 (11:24→20:48)
[2016-08-16] MEDS: VANCOMYCIN 125 MG/2.5 ML ORAL SOLUTION. PO SCH ×4 (11:24→20:49)
--- NOTE | 2016-08-16 13:15 | PDOC ---
PROGRESS NOTES Chief Complaint Chief Complaint s/p fall Back pain ASSESSMENT AND PLAN: 1. Acute on chronic back pain: long-standing hx of back pain, post surgery in distant past. now aggravated s/p falls x2 and down for 2 days. oxyIR still not adequate, but she can deal with it. using dilaudid regularly 2. Narcotic dependence: try and avoid IV meds as possible. difficult to manage with true underlying pain issues 3. EtOH dependence: states she has been "dry" since her last admit. drug screen neg. observe for W/D sx. 4. GILES: 2/2 dehydration/vasomotor. improving. cont IVF/PO fluids. monitor creat. 5. CKD: baseline creat about 1.5 6. UTI: E.coli with high resistance. switch to cipro 7. C.diff colitis: dx.ed at previous admit, never completed Abx at home. still diarrhea. restart PO vanco 8. Dispo: Home with services in AM Vitals Vitals Vital Signs Date Time Temp Pulse Resp B/P Pulse Ox O2 Delivery O2 Flow Rate FiO2 08/16/16 09:45 18 96 Room Air 08/16/16 09:20 138/87 08/16/16 03:00 98.8 83 98.8 Physical Exam General: Alert, Oriented X3, Cooperative Heart: Regular rate Lungs: Clear Abdomen: Normal bowel sounds, No tenderness Extremities: No edema Skin: No rashes Review of Systems Review of Systems states she is feeling poorly, mainly due to aches and pains in shoulder and back. diarrhea ongoing, no incontinence MARK MONTES MD Aug 16, 2016 13:15
[2016-08-16 15:00] VITALS: BP 135/84
[2016-08-16 19:00] VITALS: BP 124/75
[2016-08-16 23:00] VITALS: BP 131/81
[2016-08-17] MEDS: IV 1/2 NORMAL SALINE 1,000 ML IV SCH ×2 (01:32→12:34)
[2016-08-17 03:00] VITALS: BP 135/86
[2016-08-17] MEDS: HYDROMORPHONE 2 MG/ML VIAL. IVP PRN ×3 (03:02→12:35)
[2016-08-17 07:15] VITALS: BP 155/98
[2016-08-17] MEDS: PANTOPRAZOLE 40 MG TABLET. PO SCH ×2 (08:06→17:39)
[2016-08-17] MEDS: CIPROFLOXACIN HCL 250 MG TABLET PO SCH (09:03)
[2016-08-17] MEDS: VANCOMYCIN 125 MG/2.5 ML ORAL SOLUTION. PO SCH ×3 (09:03→17:39)
[2016-08-17] MEDS: LACTOBACILLUS ACIDOPH & BULGAR 1 TABLET. PO SCH ×2 (09:03→13:23)
[2016-08-17] MEDS: POLYETHYLENE GLYCOL 3350 17 GM PACKET. PO SCH (09:04)
[2016-08-17] MEDS: ESCITALOPRAM 10 MG TABLET. PO SCH (09:04)
[2016-08-17] MEDS: ALPRAZOLAM 0.5 MG TABLET PO PRN (09:05)
[2016-08-17] MEDS: LISINOPRIL 10 MG TABLET PO SCH (09:05)
--- NOTE | 2016-08-17 09:57 | PDOC ---
Infectious Disease Note Subjective Subjective feeling better ROS ROS GEN: Denies fevers, chills, sweats HEENT: Denies blurred vision, sore throat CV: Denies chest pain RESP: Denies shortness of air, cough NEURO: Denies confusion, dizziness MSK: Denies weakness, joint pain/swelling Vital Sign Vital Signs Vital Signs Date Time Temp Pulse Resp B/P Pulse Ox O2 Delivery O2 Flow Rate FiO2 08/17/16 09:08 14 Room Air 08/17/16 09:05 79 155/98 08/17/16 07:45 96 08/17/16 07:15 98.2 98.2 Physical Exam PHYSICAL EXAM GENERAL: NAD, Alert HEENT: PERRL, OC/OP NECK: Supple, no JVD, no LN LUNGS: Clear HEART: S1S2, no gallop, no murmur ABD: Soft, NT, no organomegaly, no rebound EXT: No edema, no cyanosis 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
[2016-08-17 11:15] VITALS: BP 131/77
[2016-08-17 11:22] VITALS: BP 131/77
[2016-08-17 15:15] VITALS: BP 132/78
--- NOTE | 2016-08-17 15:51 | PDOC ---
PROGRESS NOTES Chief Complaint Chief Complaint s/p fall Back pain ASSESSMENT AND PLAN: 1. Acute on chronic back pain: long-standing hx of back pain, post surgery in distant past. now aggravated s/p falls x2 and down for 2 days. oxyIR PRN 2. Narcotic dependence: difficult to manage with true underlying pain issues. no IV narcotics 3. EtOH dependence: states she has been "dry" since her last admit. drug screen neg. no W/D sx 4. GILES: resolving 5. CKD: baseline creat about 1.5 6. UTI: E.coli with high resistance. on cipro 7. C.diff colitis: dx.ed at previous admit, never completed Abx at home. still diarrhea. PO vanco 8. Dispo: Home, declines services Vitals Vitals Vital Signs Date Time Temp Pulse Resp B/P Pulse Ox O2 Delivery O2 Flow Rate FiO2 08/17/16 15:15 97.5 84 18 132/78 95 Room Air 97.5 Physical Exam General: Alert, Oriented X3, Cooperative Heart: Regular rate Lungs: Clear Abdomen: Normal bowel sounds, No tenderness Extremities: No edema Skin: No rashes Review of Systems Review of Systems requesting IV dilaudid. trying to stay in for another day, stating another MD told her she would go home in AM Comment Review of Relevant I have reviewed the following items blade (where applicable) has been applied. Labs Laboratory Tests Test 08/16/16 09:00 Clostridium difficile Toxin (PCR) Positive (Negative) Microbiology 08/13/16 Urine Culture - Final, Complete 08/13/16 Urine Culture Result 1 (DARCIE) - Final, Complete 08/13/16 Antimicrobic Susceptibility - Final, Complete Medications Current Medications Sodium Chloride (Iv Sodium Chloride 0.9% 500ml Bag) 500 ml @ 500 mls/hr 1X ONCE IV Last administered on 08/13/16 14:30; Start 08/13/16 at 14:30; Stop at 15:29; Status DC Fentanyl Citrate (Fentanyl 2ml Vial) 50 mcg 1X ONCE IV Last administered on t 14:37; Start 08/13/16 at 14:30; Stop 08/13/16 at 14:31; Status DC Ondansetron HCl (Zofran) 4 mg PRN Q8HRS PRN IV NAUSEA/VOMITING; Start 08/13/16 at 18:00; Stop 08/14/16 at 17:59; Status DC Acetaminophen 650 mg 650 mg PRN Q4HRS PRN PO FEVER or pain; Start 08/13/16 at 18:00; Stop 08/14/16 at 17:59; Status DC Ceftriaxone Sodium/Sodium Chloride (Rocephin/Iv Sodium Chloride 0.9% 50ml) 50 ml @ 100 mls/hr Q24H IV Last administered on 08/13/16 22:02; Start 08/13/16 at 20:00; Stop 08/13/16 at 22:32; Status DC Acetaminophen (Tylenol) 650 mg PRN Q6HRS PRN PO PAIN; Start 08/13/16 at 22:30 Lactobacillus Acidophilus (Bacid, Kathryn-Bid) 1 tab TID PO Last administered on 13:23; Start 08/14/16 at 09:00 Alprazolam (Xanax) 0.5 mg PRN BID PRN PO ANXIETY / AGITATION Last administered on 08/17/16 09:05; Start 08/13/16 at 22:30 Escitalopram Oxalate (Lexapro) 20 mg DAILY PO Last administered on 08/17/16 09 :04; Start 08/14/16 at 09:00 Lisinopril (Prinivil) 10 mg DAILY PO Last administered on 08/17/16 09:05; Start 08/14/16 at 09:00 Oxycodone HCl (Roxicodone) 5 mg PRN Q8HRS PRN PO severe pain Last administered on 08/14/16 09:00; Start 08/13/16 at 22:30; Stop 08/14/16 at 14:44; Status DC Pantoprazole Sodium (Protonix) 40 mg DAILYAC PO Last administered on 08/15/16 11:01; Start 08/14/16 at 07:30; Stop 08/15/16 at 18:36; Status DC Hydromorphone HCl (Dilaudid) 2 mg 1X ONCE IV Last administered on 08/13/16 22 :55; Start 08/13/16 at 22:30; Stop 08/13/16 at 22:31; Status DC Hydromorphone HCl 0.3 mg 0.3 mg PRN Q4HRS PRN IVP PAIN 2nd choice; Start at 22:30; Stop 08/14/16 at 14:44; Status DC Ceftriaxone Sodium/Sodium Chloride (Rocephin/Iv Sodium Chloride 0.9% 50ml) 50 ml @ 100 mls/hr Q24H IV Last administered on 08/14/16 20:26; Start 08/14/16 at 21:00; Stop 08/15/16 at 21:03; Status DC Hydromorphone HCl (Dilaudid) 0.6 mg PRN Q4HRS PRN IVP PAIN 2nd choice Last administered on 08/17/16 12:35; Start 08/14/16 at 14:45 Oxycodone HCl 10 mg 10 mg PRN Q4HRS PRN PO severe pain Last administered on 03:20; Start 08/14/16 at 14:45 Sodium Chloride (Iv Sodium Chloride 0.45%) 1,000 ml @ 100 mls/hr Q10H IV Last administered on 08/17/16 12:34; Start 08/14/16 at 15:30 Polyethylene Glycol (miraLAX PACKET) 17 gm DAILY PO Last administered on 09:04; Start 08/14/16 at 15:30 Pantoprazole Sodium (Protonix) 40 mg BIDAC PO Last administered on 08/17/16 08 :06; Start 08/15/16 at 21:00 Calcium Carbonate/ Glycine (Tums) 500 mg PRN AFTMEALHC PRN PO INDIGESTION Last administered on 08/16/16 13:33; Start 08/15/16 at 18:45 Simethicone (Gas-X) 80 mg PRN AFTMEALHC PRN PO GAS / BLOATING; Start 08/15/16 at 18:45 Ciprofloxacin 500 mg 500 mg BID PO ; Start 08/15/16 at 21:15; Stop 08/15/16 at 22:54; Status DC Tobramycin Sulfate 80 mg/ Sodium Chloride 52 ml @ 104 mls/hr Q8HRS IV ; Start 08/16/16 at 06:00; Stop 08/16/16 at 06:00; Status DC Tobramycin Sulfate/Sodium Chloride (Nebcin/Iv Sodium Chloride 0.9% 50ml) 52 ml @ 104 mls/hr Q24H IV Last administered on 08/16/16 00:39; Start 08/15/16 at 23:00; Stop 08/16/16 at 16:42; Status DC Tobramycin Sulfate (Nebcin Per Pharmacy) 1 each PRN DAILY PRN MC SEE COMMENTS Last administered on 08/16/16 00:31; Start 08/15/16 at 23:15; Stop 08/16/16 at 16:43; Status DC Vancomycin HCl 125 mg [id number] PO Last administered on 08/17/16 13:23; Start at 09:30 Ciprofloxacin (Cipro) 250 mg BID PO Last administered on 08/17/16 09:03; Start 08/16/16 at 09:30; Stop 08/18/16 at 21:01 Active Scripts Active Ibuprofen 800 Mg Tablet 800 Mg PO PRN Q6HRS PRN Nexium 24Hr (Esomeprazole Magnesium) 20 Mg Capsule.dr 20 Mg PO DAILY Flagyl (Metronidazole) 500 Mg Tablet 500 Mg PO TID Oxycodone Hcl 5 Mg Tablet 5 Mg PO Q8H PRN Tamiflu (Oseltamivir Phosphate) 30 Mg Capsule 30 Mg PO BID Kathryn-Bid Caplet (Acidoph/L.bulg/Bif.b/S.thermop) 1 Each Tablet 1 Tab PO TID Mapap (Acetaminophen) 325 Mg Tablet 650 Mg PO PRN Q6HRS PRN Zofran Odt (Ondansetron) 4 Mg Tab.rapdis 1 Tab SL Q8HRS Escitalopram Oxalate 10 Mg Tablet 1 Tab PO DAILY Reported Xanax (Alprazolam) 0.5 Mg Tablet 1 Tab PO BID PRN Lisinopril 10 Mg Tablet 1 Tab PO DAILY Vitals/I & O Vital Sign - Last 24 Hours 08/16/16 08/16/16 08/16/16 08/16/16 18:43 19:00 20:00 22:54 Temp 98.4 98.4 Pulse 82 Resp 20 18 20 B/P 124/75 Pulse Ox 96 98 96 O2 Delivery Room Air Room Air Room Air Room Air 08/16/16 08/17/16 08/17/16 08/17/16 23:00 03:00 03:02 03:32 Temp 98.7 98.8 98.7 98.8 Pulse 80 81 Resp 18 18 B/P 131/81 135/86 Pulse Ox 96 98 96 96 O2 Delivery Room Air Room Air Room Air 08/17/16 08/17/16 08/17/16 08/17/16 07:15 07:45 08:00 09:05 Temp 98.2 98.2 Pulse 79 79 Resp 18 18 B/P 155/98 155/98 Pulse Ox 96 96 O2 Delivery Room Air Room Air Room Air 08/17/16 08/17/16 08/17/16 08/17/16 11:15 11:22 12:35 13:24 Temp 97.7 97.7 97.7 97.7 Pulse 80 80 Resp 16 16 20 16 B/P 131/77 131/77 Pulse Ox 97 99 99 O2 Delivery Room Air Room Air Room Air Room Air 08/17/16 15:15 Temp 97.5 97.5 Pulse 84 Resp 18 B/P 132/78 Pulse Ox 95 O2 Delivery Room Air Intake and Output 08/16/16 08/16/16 08/17/16 15:00 23:00 07:00 Intake Total 1380 ml Output Total 1100 ml Balance 1380 ml -1100 ml MARK MONTES MD Aug 17, 2016 15:51
[2016-08-17] MEDS ORDERED: CIPR250T30 PO (15:55)
[2016-08-17] MEDS ORDERED: OXYC5TAB PO (15:55)
[2016-08-17] MEDS ORDERED: Vancomycin Hcl PO (15:56)
[2016-08-17] MEDS: OXYCODONE IR 5 MG TABLET. PO PRN (17:39)
--- NOTE | 2016-08-18 03:36 | CONS ---
DATE OF CONSULTATION: 08/16/2016 REQUESTING PHYSICIAN: Dr. Marin REASON FOR CONSULTATION: Multidrug resistant UTI. HISTORY OF PRESENT ILLNESS: This is a 60-year-old female who is well known to us from multiple admissions, alcohol issues in the past. Now, she says she has not had any alcohol for one month. She had a fall. She came in the ER, was discharged. She came back with a fall, another fall. The patient now is found to have acute renal failure, dehydration, UTI. The patient says she was having some burning since Saturday. The patient has been getting tobramycin and consult has been requested. The patient also had the C. difficile in July and early August and the patient was supposed to be on p.o. vancomycin, but she says she was not sent on anything. PAST MEDICAL HISTORY: Positive for multiple admissions. The patient also has alcoholism, chronic pain problem with back surgery in the past, knee replacement done, C. diff in the past, multiple UTIs. SOCIAL HISTORY: Negative for smoking. The patient says she quit alcohol about a month ago. No drug use. ALLERGIES: LISTED ALLERGIC TO LEVOFLOXACIN, WHICH SHE SAYS SHE HAD MUSCLE WEAKNESS WHEN SHE WAS REALLY SICK WITH C. DIFF. CURRENT MEDICATIONS: The patient is on tobramycin. REVIEW OF SYSTEMS: As per HPI, all other systems reviewed are negative. PHYSICAL EXAMINATION: GENERAL: Alert, oriented female, not in distress. VITAL SIGNS: Stable, afebrile. HEENT: NAD. NECK: Supple, no JVP, no lymphadenopathy. LUNGS: Clear. HEART: S1, S2 regular. ABDOMEN: Benign. EXTREMITIES: No edema or cyanosis. SKIN: Unremarkable. NEUROLOGIC: The patient is neurologically intact. LABORATORY DATA: White count is 8.1, two days ago was 12.1. BUN is 25, creatinine is 2.3. Urinalysis showed more than 40 wbc's. The last C. diff positive was in 07/23/2016. Urine culture is showing Enterobacter cloacae, which is sensitive to fluoroquinolone, Bactrim, and tobramycin. IMPRESSION: 1. Status post fall. 2. Multidrug-resistant urinary tract infection. 3. Diarrhea, rule out Clostridium difficile. 4. History of alcohol abuse, which she says she has quit a month ago. 5. Acute renal failure. RECOMMENDATIONS: We will start p.o. vancomycin. Check stool for C. diff. Discontinue tobramycin. We will start ciprofloxacin ____ should need more than three days, fluids and we will continue to follow. Thank you very much, Dr. Marin for giving me the opportunity to participate in this patient's care. TESS ONEILL MD DR: BIRGIT/hal JOB#: [id number] / [id number]
--- NOTE | 2016-08-19 00:24 | DS ---
DATE OF DISCHARGE: 08/17/2016 CHIEF COMPLAINT: Status post fall and back pain. HOSPITAL COURSE: This is a 60-year-old woman, well known to our service with ETOH as well as narcotic dependence who presented after a syncopal fall and back pain. She was diagnosed with an E. coli UTI with high resistance and after initial empiric cephalosporins, she had to be switched to ciprofloxacin. Suspicion was also that she had ongoing C. diff colitis as she had ongoing diarrhea and I filled her prescriptions for p.o. vancomycin after her most recent discharge. With infectious issues under control, she was treated with narcotics for her acute on chronic back pain. Try to minimize IV drug use given her dependence. She was deemed stable for discharge on the . She declined home services. PHYSICAL EXAMINATION: Please refer to note. DISCHARGE DISPOSITION: To home. DISCHARGE CONDITION: Improved. DISCHARGE DIAGNOSES: Acute on chronic back pain, status post fall, urinary tract infection, Clostridium difficile colitis. DISCHARGE MEDICATIONS: Please refer to MAR. DISCHARGE INSTRUCTIONS: The patient will seek help with a new PCP TANJA. MARK MONTES MD DR: MIKE/nts JOB#: [id number] / [id number] GREGORY
[2016-09-09] MEDS ORDERED: METO10TA81 PO (11:32)
== END 2016-08-17 19:30 | disposition home or self-care (01) | DRG 871 ==
LOC: ER 11:57 → 5 NORTH 16:10
PROVIDERS: ADMIT Internal Medicine Hematology & Oncology; ATTEND Internal Medicine Hematology & Oncology
DX: A41.9 Sepsis, unspecified organism (principal); N17.0 Acute kidney failure with tubular necrosis; N39.0 Urinary tract infection, site not specified; A04.7 Enterocolitis due to Clostridium difficile; F11.20 Opioid dependence, uncomplicated; M54.9 Dorsalgia, unspecified; B96.20 Unspecified Escherichia coli [E. coli] as the cause of diseases classified elsewhere; Z96.652 Presence of left artificial knee joint; F10.20 Alcohol dependence, uncomplicated; G89.29 Other chronic pain; N18.9 Chronic kidney disease, unspecified; Z16.24 Resistance to multiple antibiotics; Z91.81 History of falling; Z88.6 Allergy status to analgesic agent; Z88.1 Allergy status to other antibiotic agents; Z88.8 Allergy status to other drugs, medicaments and biological substances
CPT/HCPCS: 36415; 70450; 72100; 72125; 73130; 73502; 80048; 81001; 82550; 85027; 87086; 87186; 87324; 87641; 93005; 96374; G0481; J0696; J1170; J3010; J7040; 97116; 97535; 99285-25

== ENCOUNTER 2016-08-25 13:38 | Inpatient (IN) | payer MEDICARE, MEDICAID ==
[~2016-08-25] VITALS: Ht 162.6 cm; Wt 68.0 kg
[~2016-08-25 13:38] MED LIST changes: +CIPR250T30 PO
[2016-08-25] MEDS ORDERED: IV NORMAL SALINE 1000ML BAG 1,000 ML IV SCH (15:14)
--- NOTE | 2016-08-25 15:14 | PHYS DOC ---
Past Medical History Past Medical History: Alcoholism, Anxiety, Arthritis Additional Past Medical Histor: c diff, chronic n/v/d and abdominal pain, gastritis, renal insufficiency Past Surgical History: Knee Replacement, Other Additional Past Surgical Histo: back and foot surger, LEFT KNEE REPLACEMENT X2 Alcohol Use: Occasionally Drug Use: None Adult General Chief Complaint Chief Complaint: NAUSEA/VOMITING/DIARRHA HPI HPI Patient is a 60 year old female well known to the ED who presents with acute on chronic N/V/D. Patient reports she has been having these symptoms for the past two weeks. The N/V have been especially bad for the past 2-3 days. She was admitted for several days starting on 08/13 and was treated with PO vancomycin for C diff and cipro for UTI. She says she has completed both courses, but continues to have diarrhea, she estimates x12 today. Also complains of general abdominal pain. She has not taken anything for pain or nausea today. Review of Systems Review of Systems Constitutional: Fatigue. Denies fever or chills Eyes: Denies change in visual acuity or eye pain HENT: Denies nasal congestion or sore throat Respiratory: Denies cough or shortness of breath Cardiovascular: Denies chest pain GI: General abdominal pain, nausea, vomiting, diarrhea. Denies bloody stools : Denies dysuria or hematuria Musculoskeletal: Denies back pain or joint pain Integument: Denies rash or skin lesions Neurologic: Denies headache, focal weakness or sensory changes Current Medications Current Medications Current Medications Medications (Trade) Dose Ordered Sig/Taz Start Time Stop Time Status Last Admin Dose Admin Acetaminophen (Tylenol) 650 mg PRN Q4HRS PRN 08/25/16 17:30 08/26/16 17:29 Famotidine (Pepcid) 20 mg 1X ONCE 08/25/16 15:15 08/25/16 17:10 DC 08/25/16 15:33 20 MG Fentanyl Citrate (Fentanyl 2ml Vial) 50 mcg 1X ONCE 08/25/16 15:15 08/25/16 17:10 DC 08/25/16 15:33 50 MCG Fentanyl Citrate 25 mcg 25 mcg PRN Q1HR PRN 08/25/16 17:30 08/26/16 17:29 Ondansetron HCl (Zofran) 4 mg PRN Q8HRS PRN 08/25/16 17:30 08/26/16 17:29 Potassium Chloride (Klor-Con) 40 meq 1X ONCE 08/25/16 18:00 08/25/16 18:01 UNV Sodium Chloride (Iv Sodium Chloride 0.9% 1000ml Bag) 1,000 ml @ 125 mls/hr Q8H 08/25/16 17:28 08/26/16 17:27 Vancomycin HCl 125 mg [id number] 08/25/16 23:00 UNV Allergies Allergies Allergies Coded Allergies Type Severity Reaction Last Updated Verified levofloxacin Allergy Intermediate 08/16/16 Yes morphine Allergy Intermediate tolerates Dilaudid 07/26/16 Yes I S O L A T I O N *CONTACT* Allergy Unknown 07/26/16 Yes diphenhydramine HCl Adverse Reaction Intermediate "Jittery on the inside" 07/26 Yes Physical Exam Physical Exam Constitutional: Well developed, well nourished, no acute distress, non-toxic appearance HENT: Normocephalic, atraumatic, bilateral external ears normal Eyes: EOMI, conjunctiva normal, no discharge Neck: Normal range of motion, no stridor Cardiovascular: Heart rate normal, regular rhythm, murmur noted; tachycardic up to 130 with sitting up in bed Lungs & Thorax: Bilateral breath sounds clear to auscultation Abdomen: Bowel sounds normal, soft, non-distended, mild generalized TTP without guarding or rebound Skin: Warm, dry, no erythema, no rash Extremities: No obvious deformity, no edema Neurologic: Alert and oriented X 3, no gross deficits noted Current Patient Data Vital Signs Vital Signs Date Time Temp Pulse Resp B/P Pulse Ox O2 Delivery O2 Flow Rate FiO2 08/25/16 13:50 98.9 97 20 153/82 97 Room Air 98.9 Lab Values Laboratory Tests Test 08/25/16 13:50 White Blood Count 18.0x10^3/uL (4.0-11.0) H Red Blood Count 3.98x10^6/uL (3.50-5.40) Hemoglobin 12.0g/dL (12.0-15.5) Hematocrit 36.4% (36.0-47.0) Mean Corpuscular Volume 91fL (79-100) Mean Corpuscular Hemoglobin 30pg (25-35) Mean Corpuscular Hemoglobin Concent 33g/dL (31-37) Red Cell Distribution Width 14.9% (11.5-14.5) H Platelet Count 501x10^3/uL (140-400) H Neutrophils (%) (Auto) 80% (31-73) H Lymphocytes (%) (Auto) 13% (24-48) L Monocytes (%) (Auto) 7% (0-9) Eosinophils (%) (Auto) 0% (0-3) Basophils (%) (Auto) 1% (0-3) Neutrophils # (Auto) 14.3x10^3uL (1.8-7.7) H Lymphocytes # (Auto) 2.3x10^3/uL (1.0-4.8) Monocytes # (Auto) 1.2x10^3/uL (0.0-1.1) H Eosinophils # (Auto) 0.0x10^3/uL (0.0-0.7) Basophils # (Auto) 0.1x10^3/uL (0.0-0.2) Segmented Neutrophils % 65% (35-66) Band Neutrophils % 10% (0-9) H Lymphocytes % 13% (24-48) L Monocytes % 10% (0-10) Basophils % 2% (0-3) Toxic Granulation Mod Platelet Estimate Increased (ADEQUATE) Sodium Level 137mmol/L (136-145) Potassium Level 3.1mmol/L (3.5-5.1) L Chloride Level 91mmol/L (98-107) L Carbon Dioxide Level 28mmol/L (21-32) Anion Gap 18 (6-14) H Blood Urea Nitrogen 17mg/dL (7-20) Creatinine 3.5mg/dL (0.6-1.0) H Estimated GFR (Cockcroft-Gault) 13.4 BUN/Creatinine Ratio 5 (6-20) L Glucose Level 126mg/dL (70-99) H Calcium Level 9.4mg/dL (8.5-10.1) Total Bilirubin 0.3mg/dL (0.2-1.0) Aspartate Amino Transferase (AST) 23U/L (15-37) Alanine Aminotransferase (ALT) 16U/L (14-59) Alkaline Phosphatase 82U/L (46-116) Total Protein 8.4g/dL (6.4-8.2) H Albumin 3.1g/dL (3.4-5.0) L Albumin/Globulin Ratio 0.6 (1.0-1.7) L Lipase 117U/L (73-393) Laboratory Tests 08/25/16 13:50 Laboratory Tests 08/25/16 13:50 EKG EKG [] Radiology/Procedures Radiology/Procedures [] Course & Med Decision Making Course & Med Decision Making Pertinent Labs and Imaging studies reviewed. (See chart for details) Patient is 60 year old female who presents with abdominal pain, N/V/D. Concern for persistent C diff diarrhea. Will check labs, UA, C diff PCR. IVF bolus, pain meds, nausea meds, pepcid ordered for relief of symptoms. Labs notable for leukocytosis (WBC up to 18 from 8 10 days ago), elevated creatinine (up to 3.5 from 2.3 10 days ago), hypokalemia. Still awaiting UA and C diff PCR. Discussed results with patient, who continues to have pain. Discussed with Dr. Campos, will admit under his care for further evaluation and treatment. Per his request will consult GI and Nephro. Hugo Disclaimer Hugo Disclaimer This electronic medical record was generated, in whole or in part, using a voice recognition dictation system. Departure Departure Impression: Primary Impression: GILES (acute kidney injury) Additional Impression: C. difficile diarrhea Disposition: ADMITTED INPATIENT Admitting Physician: Leda Campos Condition: STABLE Referrals: UNKNOWN PCP NAME (PCP) Problem Qualifiers TAMMY RUIZ MD Aug 25, 2016 15:14
[2016-08-25] MEDS ORDERED: FENTANYL PF 100 MCG/2 ML VIAL. IV ONE (15:15)
[2016-08-25] MEDS ORDERED: ONDANSETRON PF 4 MG/2 ML VIAL. IV ONE (15:15)
[2016-08-25] MEDS ORDERED: FAMOTIDINE 20 MG/2 ML VIAL IVP ONE (15:15)
[2016-08-25 15:35] LABS: BASO # 0.1 x10^3/uL (0.0-0.2); BASO % 1 % (0-3); EOS % 0 % (0-3); HEMATOCRIT 36.4 % (36.0-47.0); LYMPH # 2.3 x10^3/uL (1.0-4.8); LYMPH % 13 % (24-48); MEAN CORPUSCULAR HEMOGLOBIN 30 pg (25-35); MEAN CORPUSCULAR HGB CONC 33 g/dL (31-37); MEAN CORPUSCULAR VOLUME 91 fL (79-100); MONO % 7 % (0-9); NEUT % 80 % (31-73); PLATELET COUNT 501 x10^3/uL (140-400); RED BLOOD COUNT 3.98 x10^6/uL (3.50-5.40); RED CELL DISTRIBUTION WIDTH 14.9 % (11.5-14.5)
[2016-08-25 15:45] LABS: CALCIUM 9.4 mg/dL (8.5-10.1); CREATININE 3.5 mg/dL (0.6-1.0); GFR 13.4; POTASSIUM 3.1 mmol/L (3.5-5.1)
[2016-08-25 15:51] LABS: ALBUMIN 3.1 g/dL (3.4-5.0); ALBUMIN/GLOBULIN RATIO 0.6 (1.0-1.7); TOTAL BILIRUBIN 0.3 mg/dL (0.2-1.0); TOTAL PROTEIN 8.4 g/dL (6.4-8.2)
[2016-08-25 16:15] LABS: % BASOS 2 % (0-3)
[2016-08-25 16:17] LABS: PLT ESTIMATE INCREASED (ADEQUATE); TOXIC GRANULATION MOD
[2016-08-25] MEDS ORDERED: VANCOMYCIN 125 MG/2.5 ML ORAL SOLUTION. PO ONE (17:15)
[2016-08-25] MEDS ORDERED: ACETAMINOPHEN 325 MG TABLET. PO PRN (17:30)
[2016-08-25] MEDS: FENTANYL PF 100 MCG/2 ML VIAL. IV PRN ×2 (17:59→20:07)
[2016-08-25] MEDS ORDERED: POTASSIUM CHLORIDE 20 MEQ TABLET.ER. PO ONE (18:00)
--- NOTE | 2016-08-25 18:08 | ACF ---
Admission Forms Criteria RENAL FAILURE, ACUTE Clinical Indications for Admission to Inpatient Care ( Place 'X' for any and all applicable criteria): Admission is indicated for ALL (if I & II) or III of the following [A](2)(3)(4)( 5)(6)(7): [X]I. Acute renal failure as indicated by ANY ONE of the following: [X]a) A 3-fold rise in serum creatinine from baseline [ ]b) Serum creatinine greater than 4 mg/dL (354 micromoles/L) with an acute rise greater than 0.5 mg/dL (44.2 micromoles/L) [ ]c) Reduction of more than 75% in estimated glomerular filtration rate from baseline [ ]d) Estimated glomerular filtration rate less than 35 mL/min/1.73m2 (0.59mL/sec/1.73m2)in a child up to 18 years of age [ ]e) Anuria indicated by ALL of the following: [ ]i) Adequate volume status [ ]ii) Cessation of urine output indicated by ANY ONE of the following: [ ]1) Urine output less than 0.3 mL/kg/hr for 24 hours [ ]2) Anuria (urine output less than 0.1 mL/kg/ hr) for 12 hours [X] II. Renal failure cannot be managed in an outpatient setting or observational care setting as indicating by ANY ONE of the following: [ ]a) Altered mental status that is severe or persistent [ ]b) Volume overload or Respiratory distress (eg, clinically significant pulmonary edema) that is severe or persistent [ ]c) Cardiac arrhythmias of immediate concern [ ]d) Hemodynamic instability [ ]e) Clinically significant electrolyte abnormality that requires inpatient care (eg, hyperkalemia with severe ECG findings)[B] [ ]f) Clinically significant metabolic abnormality (eg, acidosis) that is severe or persistent [ ]g) Acute treatment of renal failure (eg, renal replacement therapy) not feasible or appropriate in observational care setting [ ]h) Clinical situation too unstable or uncertain (eg, inadequate urine output, ongoing decline in renal function, etiology unclear) [ ]i) Necessary support and caregiver ability to comply with outpatient treatment cannot be arranged in observation care timeframe (eg, within 24 hours) [X]j) Other significant finding or clinical condition judged not to be within scope of observation care [ ]III.General contraindications and/or Inappropriate clinical situations for Observational Care in patients with Acute Renal Failure, when ANY ONE of the following is required: [ ]a) Prediction of prolongation of LOS based on ANY ONE of the following may be considered as a contraindication for observational care 2, 3, 4, 5, 6, 7, 8 , 9, 10, 11 [ ]i) Age > 65 yrs. [ ]ii) Patient arriving by ambulance [ ]iii) Patient with high acuity [ ]iv) Patient requiring vital sign monitoring [ ]v) Patient on IV medication [ ]b) Systolic blood pressures 180mmHg 3,12 [ ]c) Patient with altered mental status including delirium and other alteration of consciousness, (3) [ ]d) Patient whose discharge disposition will be to a group home home or rehabilitation home should not be managed in Emergency Department Observation Unit. CMS rule requires 3 days hospital stay before such placement.3,13 [ ]e) Patient with failure to thrive due to broad array of etiologies 3, 16,17 [ ]f) Inability to ambulate 3,14 Extended stay beyond goal length of stay may be needed for(13) [ ]a) Continuing uremic complications [ ]b) Care for comorbidities [ ]c) acute renal failure [ ]d) Need for dialysis The original [employer] content created by [employer] has been revised. The portions of the content which have been revised are identified through the use of italic text or in bold, and [facility] has neither reviewed nor approved the modified material. All other unmodified content is copyright [employer]. Please see references footnoted in the original [email or web address] edition 2016 Admission Criteria Met?: Yes JENNIFER TRIMBLE Aug 25, 2016 18:08
[2016-08-25 19:00] VITALS: BP 168/82
[2016-08-25] MEDS: IV NORMAL SALINE 1000ML BAG 1,000 ML IV SCH (20:00)
[2016-08-25] MEDS ORDERED: CIPROFLOXACIN HCL 250 MG TABLET PO SCH (21:00)
[2016-08-25] MEDS ORDERED: VANCOMYCIN HCL 125 MG PO SCH (21:00)
[2016-08-25] MEDS: HYDROMORPHONE 2 MG/ML VIAL. IV PRN (21:18)
[2016-08-25] MEDS: ALPRAZOLAM 0.5 MG TABLET PO PRN (21:20)
[2016-08-25] MEDS: LACTOBACILLUS ACIDOPH & BULGAR 1 TABLET. PO SCH (21:20)
[2016-08-25] MEDS: VANCOMYCIN 125 MG/2.5 ML ORAL SOLUTION. PO SCH (21:20)
[2016-08-25] MEDS: ONDANSETRON PF 4 MG/2 ML VIAL. IV PRN (21:27)
--- NOTE | 2016-08-25 22:52 | HP ---
ADMIT DATE: 08/25/2016 CHIEF COMPLAINT: Abdominal pain, nausea, vomiting and diarrhea. HISTORY OF PRESENT ILLNESS: The patient is a pleasant 60-year-old female, who was admitted perhaps 50 times in the last few years. Once again, she presents with signs of C. diff. She has got nausea, vomiting, diarrhea. Her white count is 18,000. I have discussed the case with the ER physician. We are going to admit the patient. Consult ID and GI. PAST MEDICAL HISTORY: Chronic C. difficile; previous alcohol abuse, but she states she is quit now; anxiety; arthritis; chronic pain; gastritis; renal insufficiency; knee replacement; back surgery and foot surgery. ALLERGIES: BENADRYL, LEVAQUIN AND MORPHINE. FAMILY HISTORY: Coronary artery disease. SOCIAL HISTORY: She is quit drinking and smoking. Does not do any drugs. MEDICATIONS: Reviewed, please refer to the MRAD. REVIEW OF SYSTEMS: GENERAL: No history of weight change, weakness or fevers. SKIN: No bruising, hair changes or rashes. EYES: No blurred, double or loss of vision. NOSE AND THROAT: No history of nosebleeds, hoarseness or sore throat. HEART: No history of palpitations, chest pain or shortness of breath on exertion. LUNGS: Denies cough, hemoptysis, wheezing or shortness of breath. GASTROINTESTINAL: She complains of abdominal pain, nausea, vomiting and diarrhea. GENITOURINARY: No history of frequency, urgency, hesitancy or nocturia. NEUROLOGIC: Denies history of numbness, tingling, tremor or weakness. PSYCHIATRIC: No history of panic, anxiety or depression. ENDOCRINE: No history of heat or cold intolerance, polyuria or polydipsia. EXTREMITIES: Denies muscle weakness, joint pain, pain on walking or stiffness. PHYSICAL EXAMINATION: VITAL SIGNS: Temperature afebrile, pulse 77, respirations 20, blood pressure 153/62. GENERAL: She is alert, cooperative. HEART: Normal S1, S2. LUNGS: Clear. ABDOMEN: Soft. Decreased bowel sounds and tender. EXTREMITIES: No edema. SKIN: No rashes. PSYCHIATRIC: She is anxious. VASCULAR: Good capillary refill. ENDOCRINE: No thyromegaly. LYMPHATICS: No cervical nodes. HEMATOPOIETIC: No bruising. LABORATORY DATA: White count 18, hemoglobin 12, platelets 501. Electrolytes: Sodium 137, potassium 3.1, chloride ____, bicarbonate 28, BUN 17, creatinine 3.5, glucose 126. 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 She is going to be admitted. We are going to give her IV fluids. Continue her home meds. We will start either Flagyl or vancomycin according per ID once they see the patient. Frequent labs, p.r.n. Dilaudid, replace her potassium and consult Nephrology. ZA MAHONEY DO DR: CORY/hal JOB#: [id number] / [id number]
[2016-08-25 23:00] VITALS: BP 153/95
[2016-08-26] MEDS: HYDROMORPHONE 2 MG/ML VIAL. IV PRN ×6 (01:24→22:53)
[2016-08-26 03:00] VITALS: BP 141/80
[2016-08-26] MEDS: IV NORMAL SALINE 1000ML BAG 1,000 ML IV SCH ×2 (03:39→09:28)
[2016-08-26 05:21] LABS: BASO # 0.1 x10^3/uL (0.0-0.2); BASO % 1 % (0-3); EOS % 2 % (0-3); HEMATOCRIT 28.7 % (36.0-47.0); HEMOGLOBIN 9.3 g/dL (12.0-15.5); LYMPH % 26 % (24-48); MEAN CORPUSCULAR HEMOGLOBIN 30 pg (25-35); MEAN CORPUSCULAR HGB CONC 32 g/dL (31-37); MEAN CORPUSCULAR VOLUME 94 fL (79-100); MONO % 8 % (0-9); NEUT % 63 % (31-73); PLATELET COUNT 337 x10^3/uL (140-400); RED BLOOD COUNT 3.06 x10^6/uL (3.50-5.40); RED CELL DISTRIBUTION WIDTH 14.8 % (11.5-14.5); WHITE BLOOD COUNT 11.8 x10^3/uL (4.0-11.0)
[2016-08-26 05:35] LABS: CREATININE 2.9 mg/dL (0.6-1.0); GFR 16.6; POTASSIUM 3.3 mmol/L (3.5-5.1)
[2016-08-26 07:00] VITALS: BP 139/84
[2016-08-26] MEDS: ESCITALOPRAM 10 MG TABLET. PO SCH (08:21)
[2016-08-26] MEDS: LACTOBACILLUS ACIDOPH & BULGAR 1 TABLET. PO SCH ×3 (08:21→20:30)
[2016-08-26] MEDS: PANTOPRAZOLE 40 MG TABLET. PO SCH (08:21)
[2016-08-26] MEDS ORDERED: LISINOPRIL 10 MG TABLET PO SCH (09:00)
[2016-08-26] MEDS: VANCOMYCIN 125 MG/2.5 ML ORAL SOLUTION. PO SCH ×4 (09:25→20:30)
[2016-08-26 11:00] VITALS: BP 98/59
[2016-08-26] MEDS: ONDANSETRON PF 4 MG/2 ML VIAL. IV PRN (11:37)
[2016-08-26] MEDS: ALPRAZOLAM 0.5 MG TABLET PO PRN ×2 (11:37→22:52)
[2016-08-26 15:00] VITALS: BP 113/63
--- NOTE | 2016-08-26 15:51 | PDOC ---
Infectious Disease Note Vital Sign Vital Signs Vital Signs Date Time Temp Pulse Resp B/P Pulse Ox O2 Delivery O2 Flow Rate FiO2 08/26/16 14:31 20 95 Room Air 08/26/16 11:00 98.1 84 98/59 98.1 Labs Lab Laboratory Tests Test 08/26/16 04:34 White Blood Count 11.8x10^3/uL (4.0-11.0) Red Blood Count 3.06x10^6/uL (3.50-5.40) Hemoglobin 9.3g/dL (12.0-15.5) Hematocrit 28.7% (36.0-47.0) Mean Corpuscular Volume 94fL (79-100) Mean Corpuscular Hemoglobin 30pg (25-35) Mean Corpuscular Hemoglobin Concent 32g/dL (31-37) Red Cell Distribution Width 14.8% (11.5-14.5) Platelet Count 337x10^3/uL (140-400) Neutrophils (%) (Auto) 63% (31-73) Lymphocytes (%) (Auto) 26% (24-48) Monocytes (%) (Auto) 8% (0-9) Eosinophils (%) (Auto) 2% (0-3) Basophils (%) (Auto) 1% (0-3) Neutrophils # (Auto) 7.4x10^3uL (1.8-7.7) Lymphocytes # (Auto) 3.0x10^3/uL (1.0-4.8) Monocytes # (Auto) 1.0x10^3/uL (0.0-1.1) Eosinophils # (Auto) 0.2x10^3/uL (0.0-0.7) Basophils # (Auto) 0.1x10^3/uL (0.0-0.2) Sodium Level 139mmol/L (136-145) Potassium Level 3.3mmol/L (3.5-5.1) Chloride Level 101mmol/L (98-107) Carbon Dioxide Level 30mmol/L (21-32) Anion Gap 8 (6-14) Blood Urea Nitrogen 16mg/dL (7-20) Creatinine 2.9mg/dL (0.6-1.0) Estimated GFR (Cockcroft-Gault) 16.6 Glucose Level 94mg/dL (70-99) Calcium Level 8.0mg/dL (8.5-10.1) Objective Assessment Diarrhea. Recent C. diff Leukocytosis GILES on CKD Plan Plan of Care Agree with po vanc QID Maintain hydration f/u am labs Thank you [id number] Patient seen and examined. Chart reviewed. Case discussed with HISTOLOGY ASSISTANT. Agree with above plan in addition to checking for Norovirus due to N/V MURTAZA TSAI APRN Aug 26, 2016 15:51 BEN CARDONA MD Aug 26, 2016 17:17
[2016-08-26 19:00] VITALS: BP 100/68
[2016-08-26] MEDS ORDERED: IV NORMAL SALINE 1000ML BAG 1,000 ML IV ONE (22:15)
[2016-08-26 23:00] VITALS: BP 113/72
--- NOTE | 2016-08-26 23:22 | PDOC ---
PROGRESS NOTES Chief Complaint Chief Complaint Diarrhea Dehydration ASSESSMENT AND PLAN: 1. Diarrhea: recent dx of C.diff, on PO vanco at home. no improvement of sx. recheck C.diff toxin. cont vanco for now. appreciate ID input 2. Dehydration: 2/2 above. IFV 3. GILES: vasomotor. improving. cont IVF 4. Hypokalemia: GI losses. replete PO and IV 5. chronic back pain: long-standing hx of back pain, post surgery in distant past. oxyIR PRN 6. Narcotic dependence: difficult to manage with true underlying pain issues. no IV narcotics 7. EtOH dependence: states she has been "dry" since Jul. 8. CKD: baseline creat about 1.5 Vitals Vitals Vital Signs Date Time Temp Pulse Resp B/P Pulse Ox O2 Delivery O2 Flow Rate FiO2 08/26/16 22:53 95 Room Air 08/26/16 19:00 97.9 78 18 100/68 97.9 Physical Exam General: Alert, Oriented X3, Cooperative Heart: Regular rate Lungs: Clear Abdomen: Normal bowel sounds, No tenderness Extremities: No edema Skin: No significant lesion Labs LABS Laboratory Tests Test 08/26/16 04:34 White Blood Count 11.8x10^3/uL (4.0-11.0) Red Blood Count 3.06x10^6/uL (3.50-5.40) Hemoglobin 9.3g/dL (12.0-15.5) Hematocrit 28.7% (36.0-47.0) Mean Corpuscular Volume 94fL (79-100) Mean Corpuscular Hemoglobin 30pg (25-35) Mean Corpuscular Hemoglobin Concent 32g/dL (31-37) Red Cell Distribution Width 14.8% (11.5-14.5) Platelet Count 337x10^3/uL (140-400) Neutrophils (%) (Auto) 63% (31-73) Lymphocytes (%) (Auto) 26% (24-48) Monocytes (%) (Auto) 8% (0-9) Eosinophils (%) (Auto) 2% (0-3) Basophils (%) (Auto) 1% (0-3) Neutrophils # (Auto) 7.4x10^3uL (1.8-7.7) Lymphocytes # (Auto) 3.0x10^3/uL (1.0-4.8) Monocytes # (Auto) 1.0x10^3/uL (0.0-1.1) Eosinophils # (Auto) 0.2x10^3/uL (0.0-0.7) Basophils # (Auto) 0.1x10^3/uL (0.0-0.2) Sodium Level 139mmol/L (136-145) Potassium Level 3.3mmol/L (3.5-5.1) Chloride Level 101mmol/L (98-107) Carbon Dioxide Level 30mmol/L (21-32) Anion Gap 8 (6-14) Blood Urea Nitrogen 16mg/dL (7-20) Creatinine 2.9mg/dL (0.6-1.0) Estimated GFR (Cockcroft-Gault) 16.6 Glucose Level 94mg/dL (70-99) Calcium Level 8.0mg/dL (8.5-10.1) Review of Systems Review of Systems good appetite. no U/O or diarrhea since admit Comment Labs Laboratory Tests Test 08/25/16 13:50 08/25/16 21:30 08/26/16 04:34 White Blood Count 18.0x10^3/uL (4.0-11.0) 11.8x10^3/uL (4.0-11.0) Red Blood Count 3.98x10^6/uL (3.50-5.40) 3.06x10^6/uL (3.50-5.40) Hemoglobin 12.0g/dL (12.0-15.5) 9.3g/dL (12.0-15.5) Hematocrit 36.4% (36.0-47.0) 28.7% (36.0-47.0) Mean Corpuscular Volume 91fL (79-100) 94fL (79-100) Mean Corpuscular Hemoglobin 30pg (25-35) 30pg (25-35) Mean Corpuscular Hemoglobin Concent 33g/dL (31-37) 32g/dL (31-37) Red Cell Distribution Width 14.9% (11.5-14.5) 14.8% (11.5-14.5) Platelet Count 501x10^3/uL (140-400) 337x10^3/uL (140-400) Neutrophils (%) (Auto) 80% (31-73) 63% (31-73) Lymphocytes (%) (Auto) 13% (24-48) 26% (24-48) Monocytes (%) (Auto) 7% (0-9) 8% (0-9) Eosinophils (%) (Auto) 0% (0-3) 2% (0-3) Basophils (%) (Auto) 1% (0-3) 1% (0-3) Neutrophils # (Auto) 14.3x10^3uL (1.8-7.7) 7.4x10^3uL (1.8-7.7) Lymphocytes # (Auto) 2.3x10^3/uL (1.0-4.8) 3.0x10^3/uL (1.0-4.8) Monocytes # (Auto) 1.2x10^3/uL (0.0-1.1) 1.0x10^3/uL (0.0-1.1) Eosinophils # (Auto) 0.0x10^3/uL (0.0-0.7) 0.2x10^3/uL (0.0-0.7) Basophils # (Auto) 0.1x10^3/uL (0.0-0.2) 0.1x10^3/uL (0.0-0.2) Segmented Neutrophils % 65% (35-66) Band Neutrophils % 10% (0-9) Lymphocytes % 13% (24-48) Monocytes % 10% (0-10) Basophils % 2% (0-3) Toxic Granulation Mod Platelet Estimate Increased (ADEQUATE) Sodium Level 137mmol/L (136-145) 139mmol/L (136-145) Potassium Level 3.1mmol/L (3.5-5.1) 3.3mmol/L (3.5-5.1) Chloride Level 91mmol/L (98-107) 101mmol/L (98-107) Carbon Dioxide Level 28mmol/L (21-32) 30mmol/L (21-32) Anion Gap 18 (6-14) 8 (6-14) Blood Urea Nitrogen 17mg/dL (7-20) 16mg/dL (7-20) Creatinine 3.5mg/dL (0.6-1.0) 2.9mg/dL (0.6-1.0) Estimated GFR (Cockcroft-Gault) 13.4 16.6 BUN/Creatinine Ratio 5 (6-20) Glucose Level 126mg/dL (70-99) 94mg/dL (70-99) Calcium Level 9.4mg/dL (8.5-10.1) 8.0mg/dL (8.5-10.1) Total Bilirubin 0.3mg/dL (0.2-1.0) Aspartate Amino Transf (AST/SGOT) 23U/L (15-37) Alanine Aminotransferase (ALT/SGPT) 16U/L (14-59) Alkaline Phosphatase 82U/L (46-116) Total Protein 8.4g/dL (6.4-8.2) Albumin 3.1g/dL (3.4-5.0) Albumin/Globulin Ratio 0.6 (1.0-1.7) Lipase 117U/L (73-393) Nasal Screen MRSA (PCR) Negative (Negative) Laboratory Tests Test 08/26/16 04:34 White Blood Count 11.8x10^3/uL (4.0-11.0) Red Blood Count 3.06x10^6/uL (3.50-5.40) Hemoglobin 9.3g/dL (12.0-15.5) Hematocrit 28.7% (36.0-47.0) Mean Corpuscular Volume 94fL (79-100) Mean Corpuscular Hemoglobin 30pg (25-35) Mean Corpuscular Hemoglobin Concent 32g/dL (31-37) Red Cell Distribution Width 14.8% (11.5-14.5) Platelet Count 337x10^3/uL (140-400) Neutrophils (%) (Auto) 63% (31-73) Lymphocytes (%) (Auto) 26% (24-48) Monocytes (%) (Auto) 8% (0-9) Eosinophils (%) (Auto) 2% (0-3) Basophils (%) (Auto) 1% (0-3) Neutrophils # (Auto) 7.4x10^3uL (1.8-7.7) Lymphocytes # (Auto) 3.0x10^3/uL (1.0-4.8) Monocytes # (Auto) 1.0x10^3/uL (0.0-1.1) Eosinophils # (Auto) 0.2x10^3/uL (0.0-0.7) Basophils # (Auto) 0.1x10^3/uL (0.0-0.2) Sodium Level 139mmol/L (136-145) Potassium Level 3.3mmol/L (3.5-5.1) Chloride Level 101mmol/L (98-107) Carbon Dioxide Level 30mmol/L (21-32) Anion Gap 8 (6-14) Blood Urea Nitrogen 16mg/dL (7-20) Creatinine 2.9mg/dL (0.6-1.0) Estimated GFR (Cockcroft-Gault) 16.6 Glucose Level 94mg/dL (70-99) Calcium Level 8.0mg/dL (8.5-10.1) Medications Current Medications Sodium Chloride (Iv Sodium Chloride 0.9% 1000ml Bag) 1,000 ml @ 1,000 mls/hr Q1H IV Last administered on 08/25/16 15:32; Start 08/25/16 at 15:14; Stop at 17:10; Status DC Fentanyl Citrate (Fentanyl 2ml Vial) 50 mcg 1X ONCE IV Last administered on 15:33; Start 08/25/16 at 15:15; Stop 08/25/16 at 17:10; Status DC Ondansetron HCl (Zofran) 4 mg 1X ONCE IV Last administered on 08/25/16 15:33 ; Start 08/25/16 at 15:15; Stop 08/25/16 at 17:10; Status DC Famotidine (Pepcid) 20 mg 1X ONCE IVP Last administered on 08/25/16 15:33; Start 08/25/16 at 15:15; Stop 08/25/16 at 17:10; Status DC Vancomycin HCl 125 mg 1X ONCE PO Last administered on 08/25/16 17:20; Start 08/25/16 at 17:15; Stop 08/25/16 at 17:16; Status DC Ondansetron HCl (Zofran) 4 mg PRN Q8HRS PRN IV NAUSEA/VOMITING Last administered on 08/26/16 11:37; Start 08/25/16 at 17:30; Stop 08/26/16 at 17:29 ; Status DC Fentanyl Citrate 25 mcg 25 mcg PRN Q1HR PRN IV PAIN Last administered on 20:07; Start 08/25/16 at 17:30; Stop 08/26/16 at 17:29; Status DC Sodium Chloride (Iv Sodium Chloride 0.9% 1000ml Bag) 1,000 ml @ 125 mls/hr Q8H IV Last administered on 08/26/16 09:28; Start 08/25/16 at 17:28; Stop at 17:27; Status DC Acetaminophen (Tylenol) 650 mg PRN Q4HRS PRN PO FEVER; Start 08/25/16 at 17:30 ; Stop 08/26/16 at 17:29; Status DC Vancomycin HCl 125 mg [id number] PO Last administered on 08/26/16 20:30; Start at 23:00 Potassium Chloride (Klor-Con) 40 meq 1X ONCE PO Last administered on 18:51; Start 08/25/16 at 18:00; Stop 08/25/16 at 18:01; Status DC Acetaminophen (Tylenol) 650 mg PRN Q6HRS PRN PO PAIN MILD; Start 08/25/16 at 20 :15 Lactobacillus Acidophilus (Bacid, Kathryn-Bid) 1 tab TID PO Last administered on 20:30; Start 08/25/16 at 21:00 Alprazolam (Xanax) 0.5 mg PRN BID PRN PO ANXIETY / AGITATION Last administered on 08/26/16 22:52; Start 08/25/16 at 20:15 Ciprofloxacin (Cipro) 250 mg BID PO ; Start 08/25/16 at 21:00; Status UNV Escitalopram Oxalate (Lexapro) 10 mg DAILY PO Last administered on 08/26/16 08 :21; Start 08/26/16 at 09:00 Lisinopril (Prinivil) 10 mg DAILY PO Last administered on 08/26/16 08:23; Start 08/26/16 at 09:00; Stop 08/26/16 at 18:45; Status DC Oxycodone HCl (Roxicodone) 5 mg PRN Q8HRS PRN PO severe pain; Start 08/25/16 at 20:15 Pantoprazole Sodium (Protonix) 40 mg DAILYAC PO Last administered on 08/26/16 08:21; Start 08/26/16 at 07:30 Non-Formulary Medication 125 mg QID PO ; Start 08/25/16 at 21:00; Status UNV Hydromorphone HCl 1 mg 1 mg PRN Q4HRS PRN IV PAIN Last administered on 22:53; Start 08/25/16 at 20:15 Sodium Chloride (Iv Sodium Chloride 0.9% 1000ml Bag) 1,000 ml @ 1,000 mls/hr 1X ONCE IV Last administered on 08/26/16 22:15; Start 08/26/16 at 22:15; Stop 08/26/16 at 23:14 Active Scripts Active [Vancomycin Hcl] 125 MG/2.5 ML Solution 125 Mg PO QID 14 Days Cipro (Ciprofloxacin Hcl) 250 Mg Tablet 250 Mg PO BID Oxycodone Hcl 5 Mg Tablet 5 Mg PO Q8H PRN Nexium 24Hr (Esomeprazole Magnesium) 20 Mg Capsule.dr 20 Mg PO DAILY Kathryn-Bid Caplet (Acidoph/L.bulg/Bif.b/S.thermop) 1 Each Tablet 1 Tab PO TID Mapap (Acetaminophen) 325 Mg Tablet 650 Mg PO PRN Q6HRS PRN Escitalopram Oxalate 10 Mg Tablet 1 Tab PO DAILY Reported Xanax (Alprazolam) 0.5 Mg Tablet 1 Tab PO BID PRN Lisinopril 10 Mg Tablet 1 Tab PO DAILY Vitals/I & O Vital Sign - Last 24 Hours 08/26/16 08/26/16 08/26/16 08/26/16 01:24 03:00 05:25 07:00 Temp 97.9 97.9 97.9 97.9 Pulse 80 87 Resp 16 18 B/P 141/80 139/84 Pulse Ox 100 97 100 96 O2 Delivery Room Air Room Air Room Air Room Air 08/26/16 08/26/16 08/26/16 08/26/16 08:00 08:23 09:25 11:00 Temp 98.1 98.1 Pulse 87 84 Resp 18 B/P 139/84 98/59 Pulse Ox 96 95 O2 Delivery Room Air Room Air Room Air 08/26/16 08/26/16 08/26/16 08/26/16 14:31 15:00 18:38 19:00 Temp 98.8 97.9 98.8 97.9 Pulse 86 78 Resp 20 18 18 B/P 113/63 100/68 Pulse Ox 95 97 95 95 O2 Delivery Room Air Room Air Room Air Room Air 08/26/16 08/26/16 08/26/16 19:08 20:18 22:53 Pulse Ox 95 95 O2 Delivery Room Air Room Air Room Air Intake and Output 08/25/16 08/25/16 08/26/16 15:00 23:00 07:00 Intake Total 1000 ml 180 ml Balance 1000 ml 180 ml MARK MONTES MD Aug 26, 2016 23:22
--- NOTE | 2016-08-26 23:45 | PDOC2 ---
CONSULT Date of Consult Date of Consult DATE: 08/26/16 TIME: 23:44 Past Medical History Cardiovascular: HTN Heme/Onc: Anemia NOS Psych: Anxiety, Depression Musculoskeletal: Osteoarthritis Rheumatologic: Fibromyalgia Infectious disease: Other Renal/: Chronic renal insuff, Other Past Surgical History Past Surgical History: Total knee replacement, Tubal Ligation, Other Family History Family History: Stroke Social History ALCOHOL: heavy Drugs: None Lives: Alone Current Problem List Problem List Problems Medical Problems: (1) GILES (acute kidney injury) Status: Acute (2) C. difficile diarrhea Status: Acute Current Medications Current Medications Current Medications Sodium Chloride (Iv Sodium Chloride 0.9% 1000ml Bag) 1,000 ml @ 1,000 mls/hr Q1H IV Last administered on 08/25/16 15:32; Start 08/25/16 at 15:14; Stop at 17:10; Status DC Fentanyl Citrate (Fentanyl 2ml Vial) 50 mcg 1X ONCE IV Last administered on 15:33; Start 08/25/16 at 15:15; Stop 08/25/16 at 17:10; Status DC Ondansetron HCl (Zofran) 4 mg 1X ONCE IV Last administered on 08/25/16 15:33 ; Start 08/25/16 at 15:15; Stop 08/25/16 at 17:10; Status DC Famotidine (Pepcid) 20 mg 1X ONCE IVP Last administered on 08/25/16 15:33; Start 08/25/16 at 15:15; Stop 08/25/16 at 17:10; Status DC Vancomycin HCl 125 mg 1X ONCE PO Last administered on 08/25/16 17:20; Start 08/25/16 at 17:15; Stop 08/25/16 at 17:16; Status DC Ondansetron HCl (Zofran) 4 mg PRN Q8HRS PRN IV NAUSEA/VOMITING Last administered on 08/26/16 11:37; Start 08/25/16 at 17:30; Stop 08/26/16 at 17:29 ; Status DC Fentanyl Citrate 25 mcg 25 mcg PRN Q1HR PRN IV PAIN Last administered on 20:07; Start 08/25/16 at 17:30; Stop 08/26/16 at 17:29; Status DC Sodium Chloride (Iv Sodium Chloride 0.9% 1000ml Bag) 1,000 ml @ 125 mls/hr Q8H IV Last administered on 08/26/16 09:28; Start 08/25/16 at 17:28; Stop at 17:27; Status DC Acetaminophen (Tylenol) 650 mg PRN Q4HRS PRN PO FEVER; Start 08/25/16 at 17:30 ; Stop 08/26/16 at 17:29; Status DC Vancomycin HCl 125 mg [id number] PO Last administered on 08/26/16 20:30; Start at 23:00 Potassium Chloride (Klor-Con) 40 meq 1X ONCE PO Last administered on 18:51; Start 08/25/16 at 18:00; Stop 08/25/16 at 18:01; Status DC Acetaminophen (Tylenol) 650 mg PRN Q6HRS PRN PO PAIN MILD; Start 08/25/16 at 20 :15 Lactobacillus Acidophilus (Bacid, Kathryn-Bid) 1 tab TID PO Last administered on 20:30; Start 08/25/16 at 21:00 Alprazolam (Xanax) 0.5 mg PRN BID PRN PO ANXIETY / AGITATION Last administered on 08/26/16 22:52; Start 08/25/16 at 20:15 Ciprofloxacin (Cipro) 250 mg BID PO ; Start 08/25/16 at 21:00; Status UNV Escitalopram Oxalate (Lexapro) 10 mg DAILY PO Last administered on 08/26/16 08 :21; Start 08/26/16 at 09:00 Lisinopril (Prinivil) 10 mg DAILY PO Last administered on 08/26/16 08:23; Start 08/26/16 at 09:00; Stop 08/26/16 at 18:45; Status DC Oxycodone HCl (Roxicodone) 5 mg PRN Q8HRS PRN PO severe pain; Start 08/25/16 at 20:15 Pantoprazole Sodium (Protonix) 40 mg DAILYAC PO Last administered on 08/26/16 08:21; Start 08/26/16 at 07:30 Non-Formulary Medication 125 mg QID PO ; Start 08/25/16 at 21:00; Status UNV Hydromorphone HCl 1 mg 1 mg PRN Q4HRS PRN IV PAIN Last administered on 22:53; Start 08/25/16 at 20:15 Sodium Chloride (Iv Sodium Chloride 0.9% 1000ml Bag) 1,000 ml @ 1,000 mls/hr 1X ONCE IV Last administered on 08/26/16 22:15; Start 08/26/16 at 22:15; Stop 08/26/16 at 23:14; Status DC Active Scripts Active [Vancomycin Hcl] 125 MG/2.5 ML Solution 125 Mg PO QID 14 Days Cipro (Ciprofloxacin Hcl) 250 Mg Tablet 250 Mg PO BID Oxycodone Hcl 5 Mg Tablet 5 Mg PO Q8H PRN Nexium 24Hr (Esomeprazole Magnesium) 20 Mg Capsule.dr 20 Mg PO DAILY Kathryn-Bid Caplet (Acidoph/L.bulg/Bif.b/S.thermop) 1 Each Tablet 1 Tab PO TID Mapap (Acetaminophen) 325 Mg Tablet 650 Mg PO PRN Q6HRS PRN Escitalopram Oxalate 10 Mg Tablet 1 Tab PO DAILY Reported Xanax (Alprazolam) 0.5 Mg Tablet 1 Tab PO BID PRN Lisinopril 10 Mg Tablet 1 Tab PO DAILY Allergies Allergies: Coded Allergies: levofloxacin (Verified Allergy, Intermediate, 08/16/16) TOLERATES CIPRO morphine (Verified Allergy, Intermediate, tolerates Dilaudid, 07/26/16) I S O L A T I O N *CONTACT* (Verified Allergy, Unknown, 07/26/16) mrsa diphenhydramine HCl (Verified Adverse Reaction, Intermediate, "Jittery on the inside", 07/26/16) Vitals VITALS Vital Signs Date Time Temp Pulse Resp B/P Pulse Ox O2 Delivery O2 Flow Rate FiO2 08/26/16 23:23 97 Room Air 08/26/16 23:00 98.1 77 18 113/72 98.1 Labs Labs Laboratory Tests Test 08/25/16 13:50 08/25/16 21:30 08/26/16 04:34 White Blood Count 18.0x10^3/uL (4.0-11.0) 11.8x10^3/uL (4.0-11.0) Red Blood Count 3.98x10^6/uL (3.50-5.40) 3.06x10^6/uL (3.50-5.40) Hemoglobin 12.0g/dL (12.0-15.5) 9.3g/dL (12.0-15.5) Hematocrit 36.4% (36.0-47.0) 28.7% (36.0-47.0) Mean Corpuscular Volume 91fL (79-100) 94fL (79-100) Mean Corpuscular Hemoglobin 30pg (25-35) 30pg (25-35) Mean Corpuscular Hemoglobin Concent 33g/dL (31-37) 32g/dL (31-37) Red Cell Distribution Width 14.9% (11.5-14.5) 14.8% (11.5-14.5) Platelet Count 501x10^3/uL (140-400) 337x10^3/uL (140-400) Neutrophils (%) (Auto) 80% (31-73) 63% (31-73) Lymphocytes (%) (Auto) 13% (24-48) 26% (24-48) Monocytes (%) (Auto) 7% (0-9) 8% (0-9) Eosinophils (%) (Auto) 0% (0-3) 2% (0-3) Basophils (%) (Auto) 1% (0-3) 1% (0-3) Neutrophils # (Auto) 14.3x10^3uL (1.8-7.7) 7.4x10^3uL (1.8-7.7) Lymphocytes # (Auto) 2.3x10^3/uL (1.0-4.8) 3.0x10^3/uL (1.0-4.8) Monocytes # (Auto) 1.2x10^3/uL (0.0-1.1) 1.0x10^3/uL (0.0-1.1) Eosinophils # (Auto) 0.0x10^3/uL (0.0-0.7) 0.2x10^3/uL (0.0-0.7) Basophils # (Auto) 0.1x10^3/uL (0.0-0.2) 0.1x10^3/uL (0.0-0.2) Segmented Neutrophils % 65% (35-66) Band Neutrophils % 10% (0-9) Lymphocytes % 13% (24-48) Monocytes % 10% (0-10) Basophils % 2% (0-3) Toxic Granulation Mod Platelet Estimate Increased (ADEQUATE) Sodium Level 137mmol/L (136-145) 139mmol/L (136-145) Potassium Level 3.1mmol/L (3.5-5.1) 3.3mmol/L (3.5-5.1) Chloride Level 91mmol/L (98-107) 101mmol/L (98-107) Carbon Dioxide Level 28mmol/L (21-32) 30mmol/L (21-32) Anion Gap 18 (6-14) 8 (6-14) Blood Urea Nitrogen 17mg/dL (7-20) 16mg/dL (7-20) Creatinine 3.5mg/dL (0.6-1.0) 2.9mg/dL (0.6-1.0) Estimated GFR (Cockcroft-Gault) 13.4 16.6 BUN/Creatinine Ratio 5 (6-20) Glucose Level 126mg/dL (70-99) 94mg/dL (70-99) Calcium Level 9.4mg/dL (8.5-10.1) 8.0mg/dL (8.5-10.1) Total Bilirubin 0.3mg/dL (0.2-1.0) Aspartate Amino Transf (AST/SGOT) 23U/L (15-37) Alanine Aminotransferase (ALT/SGPT) 16U/L (14-59) Alkaline Phosphatase 82U/L (46-116) Total Protein 8.4g/dL (6.4-8.2) Albumin 3.1g/dL (3.4-5.0) Albumin/Globulin Ratio 0.6 (1.0-1.7) Lipase 117U/L (73-393) Nasal Screen MRSA (PCR) Negative (Negative) Laboratory Tests Test 08/26/16 04:34 White Blood Count 11.8x10^3/uL (4.0-11.0) Red Blood Count 3.06x10^6/uL (3.50-5.40) Hemoglobin 9.3g/dL (12.0-15.5) Hematocrit 28.7% (36.0-47.0) Mean Corpuscular Volume 94fL (79-100) Mean Corpuscular Hemoglobin 30pg (25-35) Mean Corpuscular Hemoglobin Concent 32g/dL (31-37) Red Cell Distribution Width 14.8% (11.5-14.5) Platelet Count 337x10^3/uL (140-400) Neutrophils (%) (Auto) 63% (31-73) Lymphocytes (%) (Auto) 26% (24-48) Monocytes (%) (Auto) 8% (0-9) Eosinophils (%) (Auto) 2% (0-3) Basophils (%) (Auto) 1% (0-3) Neutrophils # (Auto) 7.4x10^3uL (1.8-7.7) Lymphocytes # (Auto) 3.0x10^3/uL (1.0-4.8) Monocytes # (Auto) 1.0x10^3/uL (0.0-1.1) Eosinophils # (Auto) 0.2x10^3/uL (0.0-0.7) Basophils # (Auto) 0.1x10^3/uL (0.0-0.2) Sodium Level 139mmol/L (136-145) Potassium Level 3.3mmol/L (3.5-5.1) Chloride Level 101mmol/L (98-107) Carbon Dioxide Level 30mmol/L (21-32) Anion Gap 8 (6-14) Blood Urea Nitrogen 16mg/dL (7-20) Creatinine 2.9mg/dL (0.6-1.0) Estimated GFR (Cockcroft-Gault) 16.6 Glucose Level 94mg/dL (70-99) Calcium Level 8.0mg/dL (8.5-10.1) Assessment/Plan Assessment/Plan RENAL CONSULT / DAVI Dictated. See orders. ARF on CKD Flu like illness. Labs I/Os Thank you. SONG TOMLINSON MD Aug 26, 2016 23:45
[2016-08-27] MEDS ORDERED: IV NORMAL SALINE 1000ML BAG 1,000 ML IV ONE (00:30)
--- NOTE | 2016-08-27 00:46 | CONS ---
DATE OF CONSULTATION: PRIMARY CARE PHYSICIAN: . CHIEF COMPLAINT: Nausea, vomiting, history of C. diff. HISTORY OF PRESENT ILLNESS: This is a fairly complicated lady with a history of chronic alcohol use, but more recently chronic diarrhea. She has been documented to have Clostridium difficile infection on a couple of occasions, although many occasions last year, she had negative cultures. Most recently, she was in the hospital about 10 days ago and was seen by Infectious Disease because she had multidrug resistant urinary tract infection and also had a recurrence of her C. diff with positive stool toxin. At that time, she was placed on vancomycin on a 14-day course, but it turns out she ran out after about 5 days apparently taking too much, I am not sure, but she ran out Saturday and her symptoms now have recurred 24-48 hours after discontinuing the vancomycin. She has had difficulty with compliance in the past, although on this occasion it sounds like she took more of the liquid vancomycin with each dose than she should have. She returns now with these recurrent symptoms that are very consistent with recurrence of C. difficile infection, although other possibilities should be considered because she has a long history of multiple medical issues including alcohol abuse with pancreatitis in the past and a history of what is described as gastroparesis with abnormal gastric emptying and some retained food. However, she says that when she is not ill with acute symptoms, she does not have a significant amount of chronic nausea and vomiting. This seems to be more directly related to other illnesses. She also has chronic diarrhea, but it improved with the use of Questran in the past when she was not acutely ill with an infection such as C. difficile. She was readmitted and we were asked to see her. PAST MEDICAL HISTORY: Extensive. She has spent most of the last year here in the hospital with numerous admissions. She has a history of hypertension, alcohol abuse, chronic renal insufficiency, chronic urinary tract infection, chronic nausea and vomiting, depression, suicidal ideation, C. difficile infection in the past, and acute on chronic pancreatitis. PAST SURGICAL HISTORY: Includes numerous endoscopic evaluations, total knee replacement, tubal ligation. ALLERGIES: LEVAQUIN, MORPHINE AND BENADRYL. SOCIAL HISTORY: Does smoke, heavy alcohol use. No illicit drugs presently, but apparently in the past by the chart. FAMILY HISTORY: Positive for stroke, but negative for GI related disorders. MEDICATIONS: See the list. However, as mentioned above, she ran out of vancomycin back on Saturday. REVIEW OF SYSTEMS: GENERAL: Nausea, vomiting, diarrhea. No fever. HEENT: No headache or blurred vision. PULMONARY: No shortness of breath or productive cough. CARDIOVASCULAR: No chest pain, pedal edema. GENITOURINARY: No change in urinary pattern, but a history of urinary tract infections in the past. NEUROLOGIC: Some weakness. No focal deficits. MUSCULOSKELETAL: No acute arthritis or arthralgias. SKIN: No rashes, pruritus or jaundice. PHYSICAL EXAMINATION: GENERAL: She is awake and alert, feels better today. VITAL SIGNS: Blood pressure 139/82, pulse 89, respirations 18. She is afebrile, but she was hypotensive yesterday. She is anicteric. NECK: Supple. CHEST: Clear. HEART: Regular rate and rhythm. ABDOMEN: Bowel sounds are present, soft, nontender, no organomegaly or masses. RECTAL: Deferred. EXTREMITIES: No cyanosis, clubbing or edema. LABORATORY DATA: On admission, white blood cell count 18,000, now 11,800, platelet count 501,000 now 337,000, hemoglobin was 12, now 9.3. Electrolytes show potassium of 3.1 with an anion gap, BUN 17, creatinine 3.5, now after hydration, creatinine is 2.9. Liver function studies are normal. Lipase normal. Stool studies are pending, but was C. diff toxin positive on 08/16/2016. ASSESSMENT: 1. Nausea, vomiting, diarrhea. This is a chronic recurring for her. 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 She was given appropriate vancomycin, but apparently took it too quickly and as soon as she stopped taking it, her symptoms recurred. All of her symptoms certainly could be related to C. diff, but she has an underlying number of other medical problems including what is described as gastroparesis, chronic and acute pancreatitis in the past, all of which could be contributing to this. She has a long history of alcohol abuse, although she presently has stopped drinking. This certainly could be playing a role if she continues to drink. 2. Clostridium difficile infection. This has been documented on a couple of occasions, but most of the time with her diarrhea, it is not related to C. diff directly. She has responded to bile binder such as Questran in the past, but presently she has what sounds like a recurrent and acute C. diff infection. She was seen by Dr. Agrawal in infectious disease, but she did not follow the appropriate treatment regimen and ran out of vancomycin early. Because of her urinary tract infection, history of exposure to antibiotics and now this inadequate treatment, I certainly think Infectious Disease ought to be involved again to plan another course of therapy. Vancomycin was reinstituted yesterday and already clinically she has improved. PLAN: 1. Supportive care with reintroduction of vancomycin with a careful approach to making sure that she takes an adequate regimen. 2. Once the vancomycin treatment, the acute treatment, for C. diff is completed, then I would reintroduce Questran or similar agent. 3. Outpatient evaluation if she has any other chronic medical problems would be appropriate, but she has had an extensive endoscopic evaluation in the past. REYNALDO HOWE MD DR: MARIBEL/hal JOB#: [id number] / [id number]
[2016-08-27] MEDS: IV NORMAL SALINE 1000ML BAG 1,000 ML IV SCH ×3 (01:59→18:00)
[2016-08-27 03:00] VITALS: BP 126/76
[2016-08-27] MEDS: HYDROMORPHONE 2 MG/ML VIAL. IV PRN ×4 (03:04→17:28)
[2016-08-27 06:36] LABS: BASO # 0.2 x10^3/uL (0.0-0.2); BASO % 2 % (0-3); EOS % 9 % (0-3); HEMATOCRIT 29.5 % (36.0-47.0); HEMOGLOBIN 9.4 g/dL (12.0-15.5); LYMPH # 3.3 x10^3/uL (1.0-4.8); LYMPH % 37 % (24-48); MEAN CORPUSCULAR HEMOGLOBIN 31 pg (25-35); MEAN CORPUSCULAR HGB CONC 32 g/dL (31-37); MEAN CORPUSCULAR VOLUME 96 fL (79-100); MONO % 9 % (0-9); NEUT % 43 % (31-73); PLATELET COUNT 329 x10^3/uL (140-400); RED BLOOD COUNT 3.06 x10^6/uL (3.50-5.40); RED CELL DISTRIBUTION WIDTH 15.4 % (11.5-14.5); WHITE BLOOD COUNT 8.8 x10^3/uL (4.0-11.0)
[2016-08-27 07:00] VITALS: BP 126/79
[2016-08-27 07:07] LABS: CALCIUM 8.1 mg/dL (8.5-10.1); CREATININE 2.5 mg/dL (0.6-1.0); GFR 19.7; MAGNESIUM 1.7 mg/dL (1.8-2.4); POTASSIUM 3.8 mmol/L (3.5-5.1)
[2016-08-27] MEDS: PANTOPRAZOLE 40 MG TABLET. PO SCH (07:30)
[2016-08-27] MEDS: ESCITALOPRAM 10 MG TABLET. PO SCH (09:00)
[2016-08-27] MEDS: LACTOBACILLUS ACIDOPH & BULGAR 1 TABLET. PO SCH ×3 (09:00→20:39)
[2016-08-27] MEDS: VANCOMYCIN 125 MG/2.5 ML ORAL SOLUTION. PO SCH ×4 (09:00→20:40)
[2016-08-27] MEDS: ALPRAZOLAM 0.5 MG TABLET PO PRN ×2 (09:15→20:39)
--- NOTE | 2016-08-27 09:22 | PDOC ---
Infectious Disease Note Subjective Subjective Pt feeling better this am No diarrhea or BM since admission Still feels nauseous intermittently Complains of throat pain due to frequency of vomiting [employer] ROS ROS GEN: Denies fevers, chills, sweats HEENT: Denies blurred vision, complains of sore throat CV: Denies chest pain RESP: Denies shortness of air, cough GI: Complains of n/v, no diarrhea since admission, slight abdominal pain NEURO: Denies confusion, dizziness MSK: Denies weakness, joint pain/swelling Vital Sign Vital Signs Vital Signs Date Time Temp Pulse Resp B/P Pulse Ox O2 Delivery O2 Flow Rate FiO2 08/27/16 09:07 16 Room Air 08/27/16 07:00 97.7 70 126/79 98 97.7 Physical Exam PHYSICAL EXAM GENERAL: NAD, Alert - looks well HEENT: PERRL, OC/OP- clear NECK: Supple, no JVD, no LN LUNGS: Clear HEART: S1S2, no gallop, no murmur ABD: Soft, no organomegaly, no rebound, slight TTP EXT: No edema, no cyanosis [employer]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, 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, no focal neurologic deficit SKIN: No rash IV: ok Labs Lab Laboratory Tests Test 08/27/16 06:10 White Blood Count 8.8x10^3/uL (4.0-11.0) Red Blood Count 3.06x10^6/uL (3.50-5.40) Hemoglobin 9.4g/dL (12.0-15.5) Hematocrit 29.5% (36.0-47.0) Mean Corpuscular Volume 96fL (79-100) Mean Corpuscular Hemoglobin 31pg (25-35) Mean Corpuscular Hemoglobin Concent 32g/dL (31-37) Red Cell Distribution Width 15.4% (11.5-14.5) Platelet Count 329x10^3/uL (140-400) Neutrophils (%) (Auto) 43% (31-73) Lymphocytes (%) (Auto) 37% (24-48) Monocytes (%) (Auto) 9% (0-9) Eosinophils (%) (Auto) 9% (0-3) Basophils (%) (Auto) 2% (0-3) Neutrophils # (Auto) 3.8x10^3uL (1.8-7.7) Lymphocytes # (Auto) 3.3x10^3/uL (1.0-4.8) Monocytes # (Auto) 0.8x10^3/uL (0.0-1.1) Eosinophils # (Auto) 0.8x10^3/uL (0.0-0.7) Basophils # (Auto) 0.2x10^3/uL (0.0-0.2) Sodium Level 142mmol/L (136-145) Potassium Level 3.8mmol/L (3.5-5.1) Chloride Level 107mmol/L (98-107) Carbon Dioxide Level 24mmol/L (21-32) Anion Gap 11 (6-14) Blood Urea Nitrogen 16mg/dL (7-20) Creatinine 2.5mg/dL (0.6-1.0) Estimated GFR (Cockcroft-Gault) 19.7 Glucose Level 87mg/dL (70-99) Calcium Level 8.1mg/dL (8.5-10.1) Magnesium Level 1.7mg/dL (1.8-2.4) Objective Assessment N/V - POA - improved Diarrhea - Recurrent C.diff infections, awaiting stool sample for dx. No significant stool since admit Leukocytosis - resolved GILES on CKD Plan Plan of Care Cont po vanc QID for 10 days then taper to BID for a month F/u ID office 2 weeks [phone] ID to sign off GILBERTO SEQUEIRA MD Aug 27, 2016 09:22
--- NOTE | 2016-08-27 11:11 | PDOC ---
Renal-Progress Notes Subjective Notes Notes FEELING BETTER BUT STILL HAS DIARRHEA History of Present Illness Hx of present illness BETTER Vitals Vitals Vital Signs Date Time Temp Pulse Resp B/P Pulse Ox O2 Delivery O2 Flow Rate FiO2 08/27/16 09:07 16 Room Air 08/27/16 07:00 97.7 70 126/79 98 97.7 Weight Weight [ ] I.O. Intake and Output Intake and Output 08/27/16 06:59 Intake Total 1420 ml Output Total 350 ml Balance 1070 ml Intake Oral 1420 ml Output Urine Total 350 ml Labs Labs Laboratory Tests Test 08/27/16 06:10 White Blood Count 8.8x10^3/uL (4.0-11.0) Red Blood Count 3.06x10^6/uL (3.50-5.40) Hemoglobin 9.4g/dL (12.0-15.5) Hematocrit 29.5% (36.0-47.0) Mean Corpuscular Volume 96fL (79-100) Mean Corpuscular Hemoglobin 31pg (25-35) Mean Corpuscular Hemoglobin Concent 32g/dL (31-37) Red Cell Distribution Width 15.4% (11.5-14.5) Platelet Count 329x10^3/uL (140-400) Neutrophils (%) (Auto) 43% (31-73) Lymphocytes (%) (Auto) 37% (24-48) Monocytes (%) (Auto) 9% (0-9) Eosinophils (%) (Auto) 9% (0-3) Basophils (%) (Auto) 2% (0-3) Neutrophils # (Auto) 3.8x10^3uL (1.8-7.7) Lymphocytes # (Auto) 3.3x10^3/uL (1.0-4.8) Monocytes # (Auto) 0.8x10^3/uL (0.0-1.1) Eosinophils # (Auto) 0.8x10^3/uL (0.0-0.7) Basophils # (Auto) 0.2x10^3/uL (0.0-0.2) Sodium Level 142mmol/L (136-145) Potassium Level 3.8mmol/L (3.5-5.1) Chloride Level 107mmol/L (98-107) Carbon Dioxide Level 24mmol/L (21-32) Anion Gap 11 (6-14) Blood Urea Nitrogen 16mg/dL (7-20) Creatinine 2.5mg/dL (0.6-1.0) Estimated GFR (Cockcroft-Gault) 19.7 Glucose Level 87mg/dL (70-99) Calcium Level 8.1mg/dL (8.5-10.1) Magnesium Level 1.7mg/dL (1.8-2.4) Review of Systems Constitutional: yes: alert, oriented, weakness Ears/Nose/Throat: Yes: no symptom reported Eyes: Yes: no symptom reported Cardiovascular: Yes no symptom reported Gastrointestional: Yes: diarrhea Genitourinary: Yes: no symptom reported Musculoskeletal: Yes: no symptom reported Skin: Yes no symptom reported Physical Exam General Appearance: no apparent distress Skin: warm Respiratory: bilateral CTA Heart: S1S2, RRR Abdomen: soft, bowel sounds present Genitourinary: bladder flat Extremities: no edema Neurology: alert, oriented, follow commands Assessment Assessment IMP GILES-BETTER CKD STAGE 3 WITH CR OF 1.8 AT BASELINE DEHYDRATION C DIF LOW MAG PLAN CONT IVF'S REPLACE MAG WILL FOLLOW LABS IN AM DESIREE HERNANDEZ MD Aug 27, 2016 11:11
[2016-08-27 11:23] VITALS: BP 112/72
--- NOTE | 2016-08-27 12:17 | PDOC ---
PROGRESS NOTES Chief Complaint Chief Complaint Diarrhea Dehydration ASSESSMENT AND PLAN: 1. Diarrhea: recent dx of C.diff, on PO vanco at home. no improvement of sx. recheck C.diff toxin. cont vanco for now. labs pending. 2. Dehydration: 2/2 above. IFV 3. GILES: vasomotor. improving. cont IVF 4. Hypokalemia: better now 5. chronic back pain: long-standing hx of back pain, post surgery in distant past. oxyIR PRN 6. Narcotic dependence: difficult to manage with true underlying pain issues. on IV Dilaudid prn 7. EtOH dependence: states she has been "dry" since Jul.08. CKD: baseline creat about 1.5 History of Present Illness History of Present Illness pain /10, nausea no vomiting. dehydration Vitals Vitals Vital Signs Date Time Temp Pulse Resp B/P Pulse Ox O2 Delivery O2 Flow Rate FiO2 08/27/16 11:23 98.4 73 18 112/72 100 Room Air 98.4 Physical Exam General: Alert, Oriented X3, Cooperative Heart: Regular rate Lungs: Clear Abdomen: Normal bowel sounds, No tenderness Extremities: No edema Skin: No significant lesion Labs LABS Laboratory Tests Test 08/27/16 06:10 White Blood Count 8.8x10^3/uL (4.0-11.0) Red Blood Count 3.06x10^6/uL (3.50-5.40) Hemoglobin 9.4g/dL (12.0-15.5) Hematocrit 29.5% (36.0-47.0) Mean Corpuscular Volume 96fL (79-100) Mean Corpuscular Hemoglobin 31pg (25-35) Mean Corpuscular Hemoglobin Concent 32g/dL (31-37) Red Cell Distribution Width 15.4% (11.5-14.5) Platelet Count 329x10^3/uL (140-400) Neutrophils (%) (Auto) 43% (31-73) Lymphocytes (%) (Auto) 37% (24-48) Monocytes (%) (Auto) 9% (0-9) Eosinophils (%) (Auto) 9% (0-3) Basophils (%) (Auto) 2% (0-3) Neutrophils # (Auto) 3.8x10^3uL (1.8-7.7) Lymphocytes # (Auto) 3.3x10^3/uL (1.0-4.8) Monocytes # (Auto) 0.8x10^3/uL (0.0-1.1) Eosinophils # (Auto) 0.8x10^3/uL (0.0-0.7) Basophils # (Auto) 0.2x10^3/uL (0.0-0.2) Sodium Level 142mmol/L (136-145) Potassium Level 3.8mmol/L (3.5-5.1) Chloride Level 107mmol/L (98-107) Carbon Dioxide Level 24mmol/L (21-32) Anion Gap 11 (6-14) Blood Urea Nitrogen 16mg/dL (7-20) Creatinine 2.5mg/dL (0.6-1.0) Estimated GFR (Cockcroft-Gault) 19.7 Glucose Level 87mg/dL (70-99) Calcium Level 8.1mg/dL (8.5-10.1) Magnesium Level 1.7mg/dL (1.8-2.4) Assessment and Plan Assessmemt and Plan Problems Medical Problems: (1) GILES (acute kidney injury) Status: Acute (2) C. difficile diarrhea Status: Acute Problems: Comment Review of Relevant I have reviewed the following items blade (where applicable) has been applied. Labs Laboratory Tests Test 08/25/16 13:50 08/25/16 21:30 08/26/16 04:34 08/27/16 06:10 White Blood Count 18.0x10^3/uL (4.0-11.0) 11.8x10^3/uL (4.0-11.0) 8.8x10^3/uL (4.0-11.0) Red Blood Count 3.98x10^6/uL (3.50-5.40) 3.06x10^6/uL (3.50-5.40) 3.06x10^6/uL (3.50-5.40) Hemoglobin 12.0g/dL (12.0-15.5) 9.3g/dL (12.0-15.5) 9.4g/dL (12.0-15.5) Hematocrit 36.4% (36.0-47.0) 28.7% (36.0-47.0) 29.5% (36.0-47.0) Mean Corpuscular Volume 91fL (79-100) 94fL (79-100) 96fL (79-100) Mean Corpuscular Hemoglobin 30pg (25-35) 30pg (25-35) 31pg (25-35) Mean Corpuscular Hemoglobin Concent 33g/dL (31-37) 32g/dL (31-37) 32g/dL (31-37) Red Cell Distribution Width 14.9% (11.5-14.5) 14.8% (11.5-14.5) 15.4% (11.5-14.5) Platelet Count 501x10^3/uL (140-400) 337x10^3/uL (140-400) 329x10^3/uL (140-400) Neutrophils (%) (Auto) 80% (31-73) 63% (31-73) 43% (31-73) Lymphocytes (%) (Auto) 13% (24-48) 26% (24-48) 37% (24-48) Monocytes (%) (Auto) 7% (0-9) 8% (0-9) 9% (0-9) Eosinophils (%) (Auto) 0% (0-3) 2% (0-3) 9% (0-3) Basophils (%) (Auto) 1% (0-3) 1% (0-3) 2% (0-3) Neutrophils # (Auto) 14.3x10^3uL (1.8-7.7) 7.4x10^3uL (1.8-7.7) 3.8x10^3uL (1.8-7.7) Lymphocytes # (Auto) 2.3x10^3/uL (1.0-4.8) 3.0x10^3/uL (1.0-4.8) 3.3x10^3/uL (1.0-4.8) Monocytes # (Auto) 1.2x10^3/uL (0.0-1.1) 1.0x10^3/uL (0.0-1.1) 0.8x10^3/uL (0.0-1.1) Eosinophils # (Auto) 0.0x10^3/uL (0.0-0.7) 0.2x10^3/uL (0.0-0.7) 0.8x10^3/uL (0.0-0.7) Basophils # (Auto) 0.1x10^3/uL (0.0-0.2) 0.1x10^3/uL (0.0-0.2) 0.2x10^3/uL (0.0-0.2) Segmented Neutrophils % 65% (35-66) Band Neutrophils % 10% (0-9) Lymphocytes % 13% (24-48) Monocytes % 10% (0-10) Basophils % 2% (0-3) Toxic Granulation Mod Platelet Estimate Increased (ADEQUATE) Sodium Level 137mmol/L (136-145) 139mmol/L (136-145) 142mmol/L (136-145) Potassium Level 3.1mmol/L (3.5-5.1) 3.3mmol/L (3.5-5.1) 3.8mmol/L (3.5-5.1) Chloride Level 91mmol/L (98-107) 101mmol/L (98-107) 107mmol/L (98-107) Carbon Dioxide Level 28mmol/L (21-32) 30mmol/L (21-32) 24mmol/L (21-32) Anion Gap 18 (6-14) 8 (6-14) 11 (6-14) Blood Urea Nitrogen 17mg/dL (7-20) 16mg/dL (7-20) 16mg/dL (7-20) Creatinine 3.5mg/dL (0.6-1.0) 2.9mg/dL (0.6-1.0) 2.5mg/dL (0.6-1.0) Estimated GFR (Cockcroft-Gault) 13.4 16.6 19.7 BUN/Creatinine Ratio 5 (6-20) Glucose Level 126mg/dL (70-99) 94mg/dL (70-99) 87mg/dL (70-99) Calcium Level 9.4mg/dL (8.5-10.1) 8.0mg/dL (8.5-10.1) 8.1mg/dL (8.5-10.1) Total Bilirubin 0.3mg/dL (0.2-1.0) Aspartate Amino Transf (AST/SGOT) 23U/L (15-37) Alanine Aminotransferase (ALT/SGPT) 16U/L (14-59) Alkaline Phosphatase 82U/L (46-116) Total Protein 8.4g/dL (6.4-8.2) Albumin 3.1g/dL (3.4-5.0) Albumin/Globulin Ratio 0.6 (1.0-1.7) Lipase 117U/L (73-393) Nasal Screen MRSA (PCR) Negative (Negative) Magnesium Level 1.7mg/dL (1.8-2.4) Laboratory Tests Test 08/27/16 06:10 White Blood Count 8.8x10^3/uL (4.0-11.0) Red Blood Count 3.06x10^6/uL (3.50-5.40) Hemoglobin 9.4g/dL (12.0-15.5) Hematocrit 29.5% (36.0-47.0) Mean Corpuscular Volume 96fL (79-100) Mean Corpuscular Hemoglobin 31pg (25-35) Mean Corpuscular Hemoglobin Concent 32g/dL (31-37) Red Cell Distribution Width 15.4% (11.5-14.5) Platelet Count 329x10^3/uL (140-400) Neutrophils (%) (Auto) 43% (31-73) Lymphocytes (%) (Auto) 37% (24-48) Monocytes (%) (Auto) 9% (0-9) Eosinophils (%) (Auto) 9% (0-3) Basophils (%) (Auto) 2% (0-3) Neutrophils # (Auto) 3.8x10^3uL (1.8-7.7) Lymphocytes # (Auto) 3.3x10^3/uL (1.0-4.8) Monocytes # (Auto) 0.8x10^3/uL (0.0-1.1) Eosinophils # (Auto) 0.8x10^3/uL (0.0-0.7) Basophils # (Auto) 0.2x10^3/uL (0.0-0.2) Sodium Level 142mmol/L (136-145) Potassium Level 3.8mmol/L (3.5-5.1) Chloride Level 107mmol/L (98-107) Carbon Dioxide Level 24mmol/L (21-32) Anion Gap 11 (6-14) Blood Urea Nitrogen 16mg/dL (7-20) Creatinine 2.5mg/dL (0.6-1.0) Estimated GFR (Cockcroft-Gault) 19.7 Glucose Level 87mg/dL (70-99) Calcium Level 8.1mg/dL (8.5-10.1) Magnesium Level 1.7mg/dL (1.8-2.4) Medications Current Medications Sodium Chloride (Iv Sodium Chloride 0.9% 1000ml Bag) 1,000 ml @ 1,000 mls/hr Q1H IV Last administered on 08/25/16 15:32; Start 08/25/16 at 15:14; Stop at 17:10; Status DC Fentanyl Citrate (Fentanyl 2ml Vial) 50 mcg 1X ONCE IV Last administered on 15:33; Start 08/25/16 at 15:15; Stop 08/25/16 at 17:10; Status DC Ondansetron HCl (Zofran) 4 mg 1X ONCE IV Last administered on 08/25/16 15:33 ; Start 08/25/16 at 15:15; Stop 08/25/16 at 17:10; Status DC Famotidine (Pepcid) 20 mg 1X ONCE IVP Last administered on 08/25/16 15:33; Start 08/25/16 at 15:15; Stop 08/25/16 at 17:10; Status DC Vancomycin HCl 125 mg 1X ONCE PO Last administered on 08/25/16 17:20; Start 08/25/16 at 17:15; Stop 08/25/16 at 17:16; Status DC Ondansetron HCl (Zofran) 4 mg PRN Q8HRS PRN IV NAUSEA/VOMITING Last administered on 08/26/16 11:37; Start 08/25/16 at 17:30; Stop 08/26/16 at 17:29 ; Status DC Fentanyl Citrate 25 mcg 25 mcg PRN Q1HR PRN IV PAIN Last administered on 20:07; Start 08/25/16 at 17:30; Stop 08/26/16 at 17:29; Status DC Sodium Chloride (Iv Sodium Chloride 0.9% 1000ml Bag) 1,000 ml @ 125 mls/hr Q8H IV Last administered on 08/26/16 09:28; Start 08/25/16 at 17:28; Stop at 17:27; Status DC Acetaminophen (Tylenol) 650 mg PRN Q4HRS PRN PO FEVER; Start 08/25/16 at 17:30 ; Stop 08/26/16 at 17:29; Status DC Vancomycin HCl 125 mg [id number] PO Last administered on 08/27/16 09:00; Start at 23:00 Potassium Chloride (Klor-Con) 40 meq 1X ONCE PO Last administered on 18:51; Start 08/25/16 at 18:00; Stop 08/25/16 at 18:01; Status DC Acetaminophen (Tylenol) 650 mg PRN Q6HRS PRN PO PAIN MILD; Start 08/25/16 at 20 :15 Lactobacillus Acidophilus (Bacid, Kathryn-Bid) 1 tab TID PO Last administered on 09:00; Start 08/25/16 at 21:00 Alprazolam (Xanax) 0.5 mg PRN BID PRN PO ANXIETY / AGITATION Last administered on 08/27/16 09:15; Start 08/25/16 at 20:15 Ciprofloxacin (Cipro) 250 mg BID PO ; Start 08/25/16 at 21:00; Status UNV Escitalopram Oxalate (Lexapro) 10 mg DAILY PO Last administered on 08/27/16 09 :00; Start 08/26/16 at 09:00 Lisinopril (Prinivil) 10 mg DAILY PO Last administered on 08/26/16 08:23; Start 08/26/16 at 09:00; Stop 08/26/16 at 18:45; Status DC Oxycodone HCl (Roxicodone) 5 mg PRN Q8HRS PRN PO severe pain; Start 08/25/16 at 20:15 Pantoprazole Sodium (Protonix) 40 mg DAILYAC PO Last administered on 08/27/16 07:30; Start 08/26/16 at 07:30 Non-Formulary Medication 125 mg QID PO ; Start 08/25/16 at 21:00; Status UNV Hydromorphone HCl 1 mg 1 mg PRN Q4HRS PRN IV PAIN Last administered on 09:07; Start 08/25/16 at 20:15 Sodium Chloride 1,000 ml @ 1,000 mls/hr 1X ONCE IV Last administered on 22:15; Start 08/26/16 at 22:15; Stop 08/26/16 at 23:14; Status DC Sodium Chloride 1,000 ml @ 1,000 mls/hr 1X ONCE IV Last administered on 00:30; Start 08/27/16 at 00:30; Stop 08/27/16 at 01:29; Status DC Sodium Chloride (Iv Sodium Chloride 0.9% 1000ml Bag) 1,000 ml @ 125 mls/hr Q8H IV Last administered on 08/27/16 10:00; Start 08/27/16 at 02:00 Ondansetron HCl (Zofran) 4 mg PRN Q8HRS PRN IV NAUSEA/VOMITING; Start 08/27/16 at 12:15 Active Scripts Active [Vancomycin Hcl] 125 MG/2.5 ML Solution 125 Mg PO QID 14 Days Cipro (Ciprofloxacin Hcl) 250 Mg Tablet 250 Mg PO BID Oxycodone Hcl 5 Mg Tablet 5 Mg PO Q8H PRN Nexium 24Hr (Esomeprazole Magnesium) 20 Mg Capsule.dr 20 Mg PO DAILY Kathryn-Bid Caplet (Acidoph/L.bulg/Bif.b/S.thermop) 1 Each Tablet 1 Tab PO TID Mapap (Acetaminophen) 325 Mg Tablet 650 Mg PO PRN Q6HRS PRN Escitalopram Oxalate 10 Mg Tablet 1 Tab PO DAILY Reported Xanax (Alprazolam) 0.5 Mg Tablet 1 Tab PO BID PRN Lisinopril 10 Mg Tablet 1 Tab PO DAILY Vitals/I & O Vital Sign - Last 24 Hours 08/26/16 08/26/16 08/26/16 08/26/16 14:31 15:00 18:38 19:00 Temp 98.8 97.9 98.8 97.9 Pulse 86 78 Resp 20 18 18 B/P 113/63 100/68 Pulse Ox 95 97 95 95 O2 Delivery Room Air Room Air Room Air Room Air 08/26/16 08/26/16 08/26/16 08/27/16 20:18 22:53 23:00 03:00 Temp 98.1 97.7 98.1 97.7 Pulse 77 76 Resp 18 18 B/P 113/72 126/76 Pulse Ox 95 97 97 O2 Delivery Room Air Room Air Room Air Room Air 08/27/16 08/27/16 08/27/16 08/27/16 03:04 03:34 07:00 09:07 Temp 97.7 97.7 Pulse 70 Resp 20 16 B/P 126/79 Pulse Ox 97 97 98 O2 Delivery Room Air Room Air Room Air 08/27/16 08/27/16 09:37 11:23 Temp 98.4 98.4 Pulse 73 Resp 18 18 B/P 112/72 Pulse Ox 100 O2 Delivery Room Air Room Air Intake and Output 08/26/16 08/26/16 08/27/16 15:00 23:00 07:00 Intake Total 720 ml 0 ml 700 ml Output Total 350 ml Balance 720 ml 0 ml 350 ml MARY PARISI MD Aug 27, 2016 12:17
[2016-08-27] MEDS: ONDANSETRON PF 4 MG/2 ML VIAL. IV PRN (13:03)
--- NOTE | 2016-08-27 13:43 | PDOC ---
Subjective: Subjective: No appetite. No vomiting, no diarrhea. Concerned because hasn't urinated much. Objective: Vital Signs: Vital Signs Date Time Temp Pulse Resp B/P Pulse Ox O2 Delivery O2 Flow Rate FiO2 08/27/16 12:55 16 Room Air 08/27/16 11:23 98.4 73 112/72 100 98.4 Labs: Laboratory Tests Test 08/27/16 06:10 White Blood Count 8.8x10^3/uL Red Blood Count 3.06x10^6/uL Hemoglobin 9.4g/dL Hematocrit 29.5% Mean Corpuscular Volume 96fL Mean Corpuscular Hemoglobin 31pg Mean Corpuscular Hemoglobin Concent 32g/dL Red Cell Distribution Width 15.4% Platelet Count 329x10^3/uL Neutrophils (%) (Auto) 43% Lymphocytes (%) (Auto) 37% Monocytes (%) (Auto) 9% Eosinophils (%) (Auto) 9% Basophils (%) (Auto) 2% Neutrophils # (Auto) 3.8x10^3uL Lymphocytes # (Auto) 3.3x10^3/uL Monocytes # (Auto) 0.8x10^3/uL Eosinophils # (Auto) 0.8x10^3/uL Basophils # (Auto) 0.2x10^3/uL Sodium Level 142mmol/L Potassium Level 3.8mmol/L Chloride Level 107mmol/L Carbon Dioxide Level 24mmol/L Anion Gap 11 Blood Urea Nitrogen 16mg/dL Creatinine 2.5mg/dL Estimated GFR (Cockcroft-Gault) 19.7 Glucose Level 87mg/dL Calcium Level 8.1mg/dL Magnesium Level 1.7mg/dL PE: GEN: NAD, sitting up in bed, hamburger about half-eaten LUNGS: CTAB anteriorly HEART: RRR ABD: NABS, S/ND/NT NEURO/PSYCH: A & O 3 A/P: N/v, diarrhea - no recurrence since admission -h/o alcohol use -on PPI, Reglan susp, cholestyramine at home H/o C Diff -vanco recs per ID CKD -- Will restart Reglan. Other per Dr. Orosco. ANNE-MARIE GARCIA Aug 27, 2016 13:43
[2016-08-27 15:00] VITALS: BP 122/84
--- NOTE | 2016-08-27 15:05 | CONS ---
DATE OF CONSULTATION: 08/26/2016 REFERRING PHYSICIAN: Dr. Campos. REASON FOR CONSULTATION: Possible Clostridium difficile. HISTORY OF PRESENT ILLNESS: The patient is a 60-year-old female well known to our service for recurrent clostridium difficile colitis and multidrug resistant Enterobacter UTI. She recently was discharged from the hospital on 08/17/2016. The patient explains she continued to have watery diarrhea, averaging about 12 stools a day. She was needing to wear pads for bowel incontinence at times and also was having to get up at night to go to the bathroom. Few days ago, she developed nausea and vomiting. She was unable to keep fluids down. She tried to drink Gatorade spray water, but was unable to keep fluids down. She also developed subjective on fevers. On arrival to the ER, she was afebrile with an elevated WBC of 18,000. She was in acute renal failure with a creatinine of 3.5. Lipase was normal. She has been restarted on oral vancomycin. PAST MEDICAL HISTORY: Recurrent clostridium difficile on 06/15/2016, 07/23/2016 and 08/16/2016. History of MRSA of the nares. Influenza A on 07/20/2016. Cardiomyopathy, hypertension, esophagitis, pancreatitis, hiatal hernia, gastroesophageal reflux disease, urinary tract infection, fibromyalgia, osteoarthritis, hypothyroidism, systemic lupus erythematosus, depression, anxiety, alcoholism, anemia, chronic kidney disease ____ and also a Klebsiella bacteremia, urinary retention requiring self catheterization and also gastroparesis. Multidrug resistant Enterobacter cloacae sensitive to ciprofloxacin, levofloxacin, gentamicin, tobramycin and Bactrim, otherwise resistant an intermediate nitrofurantoin. PAST SURGICAL HISTORY: 1. Tubal ligation. 2. Joint replacement. 3. Back surgery. ALLERGIES: LISTED LEVOFLOXACIN CAUSING BONE PAIN; HOWEVER, HAS TOLERATED CIPROFLOXACIN WITHOUT PROBLEM. BENADRYL AND MORPHINE ARE ALSO LISTED. SOCIAL HISTORY: The patient lives at home alone. History of alcohol and tobacco abuse. FAMILY HISTORY: Positive for cancer, stroke, heart disease and hypertension. MEDICATIONS: Oral vancomycin q.i.d., Xanax, Lexapro, probiotics, lisinopril, Zofran p.r.n., oxycodone, Protonix, Klor-Con and Tylenol. REVIEW OF SYSTEMS: The patient is feeling a little bit better since admission. She is starting to feel a little bit hungry. Denies headache, nasal/sinus congestion or sore throat. Denies cough, shortness of air or wheezing. Denies chest pain, palpitations or swelling. Denies muscle aches or joint pains. PHYSICAL EXAMINATION: GENERAL: female, propped up in bed, in no apparent distress. VITAL SIGNS: Afebrile. Stable. HEENT: Pupils equally round, reactive. Normal conjunctivae. Oral mucosa is pink and moist. NECK: Supple, no adenopathy present. LUNGS: Clear to auscultation. CARDIOVASCULAR: Normal S1, S2. ABDOMEN: Bowel sounds are present, soft, nontender. EXTREMITIES: No gross edema or cyanosis. SKIN: Without rash. Warm to touch. NEUROLOGIC: Alert and 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. Moves all extremities. LABORATORY DATA: Today's WBC 11.8 from 18.0 on admission, hemoglobin 9.3, platelet count 337,000. Sodium 139, potassium 3.3, creatinine 2.9 from 3.5 on admission. BUN 16, glucose 94, total bilirubin 0.3, AST 23, ALT 16, albumin 3.1, lipase 117. MRSA screen pending, C. diff with PCR pending. IMPRESSION: 1. Diarrhea. Recent Clostridium difficile colitis. 2. Leukocytosis. 3. Acute kidney injury. 4. ALLERGY TO LEVOFLOXACIN CAUSING BONE PAIN. HAS TOLERATED CIPROFLOXACIN. PLAN: Agree with oral vancomycin q.i.d. Maintain hydration. We will follow up on laboratory values in the morning. Supportive care. Thank you, Dr. Campos, for asking me to participate in this patient's care. Should you have further questions or concerns, please call. BEN CARDONA MD DR: DAVID/hal JOB#: [id number] / [id number]
[2016-08-27] MEDS: METOCLOPRAMIDE HCL 10 MG/10 ML SOLUTION. PO SCH ×2 (16:30→20:40)
[2016-08-27 19:00] VITALS: BP 139/73
[2016-08-27] MEDS: OXYCODONE IR 5 MG TABLET. PO PRN (20:40)
[2016-08-27 22:29] VITALS: BP 119/79
[2016-08-28] VITALS (14 sets, daily range): BP systolic 130–215; BP diastolic 76–136
[2016-08-28] MEDS: HYDROMORPHONE 2 MG/ML VIAL. IV PRN ×4 (02:23→20:18)
[2016-08-28] MEDS: IV NORMAL SALINE 1000ML BAG 1,000 ML IV SCH ×3 (02:26→20:21)
[2016-08-28 04:53] LABS: CREATININE 2.1 mg/dL (0.6-1.0); GFR 24.1; POTASSIUM 4.5 mmol/L (3.5-5.1)
[2016-08-28] MEDS: METOCLOPRAMIDE HCL 10 MG/10 ML SOLUTION. PO SCH ×4 (08:50→20:17)
[2016-08-28] MEDS: ESCITALOPRAM 10 MG TABLET. PO SCH (08:51)
[2016-08-28] MEDS: LACTOBACILLUS ACIDOPH & BULGAR 1 TABLET. PO SCH ×3 (08:51→20:17)
[2016-08-28] MEDS: ALPRAZOLAM 0.5 MG TABLET PO PRN ×2 (08:51→20:17)
[2016-08-28] MEDS: PANTOPRAZOLE 40 MG TABLET. PO SCH (08:51)
[2016-08-28] MEDS: VANCOMYCIN 125 MG/2.5 ML ORAL SOLUTION. PO SCH ×4 (08:51→20:16)
--- NOTE | 2016-08-28 09:55 | PDOC ---
PROGRESS NOTES Chief Complaint Chief Complaint Diarrhea Dehydration ASSESSMENT AND PLAN: 1. Diarrhea: recent dx of C.diff, on PO vanco , continue to have diarrhea, C diff positive. 2. Dehydration: 2/2 above. IFV 3. GILES: vasomotor. improving. cont IVF 4. Hypokalemia: better now 5. chronic back pain: long-standing hx of back pain, post surgery in distant past. oxyIR PRN on iv Dilaudid pRN 6. Narcotic dependence: difficult to manage with true underlying pain issues. 7. EtOH dependence: states she has been "dry" since Jul. 8. CKD: baseline creat about 1.5 9. Accelerated HTN: IV hydralazine 20 mg History of Present Illness History of Present Illness pain 12/08, nausea no vomiting. dehydration Vitals Vitals Vital Signs Date Time Temp Pulse Resp B/P Pulse Ox O2 Delivery O2 Flow Rate FiO2 08/28/16 09:15 20 100 Room Air 08/28/16 07:00 98.7 87 145/90 98.7 Physical Exam General: Alert, Oriented X3, Cooperative Heart: Regular rate, Normal S1, Normal S2 Lungs: Clear Abdomen: Normal bowel sounds, No tenderness Extremities: No edema Skin: No significant lesion Labs LABS Laboratory Tests Test 08/28/16 04:15 Sodium Level 141mmol/L (136-145) Potassium Level 4.5mmol/L (3.5-5.1) Chloride Level 110mmol/L (98-107) Carbon Dioxide Level 20mmol/L (21-32) Anion Gap 11 (6-14) Blood Urea Nitrogen 18mg/dL (7-20) Creatinine 2.1mg/dL (0.6-1.0) Estimated GFR (Cockcroft-Gault) 24.1 Glucose Level 100mg/dL (70-99) Calcium Level 8.0mg/dL (8.5-10.1) Assessment and Plan Assessmemt and Plan Problems Medical Problems: (1) GILES (acute kidney injury) Status: Acute (2) C. difficile diarrhea Status: Acute Problems: Comment Review of Relevant I have reviewed the following items blade (where applicable) has been applied. Labs Laboratory Tests Test 08/27/16 06:10 08/28/16 04:15 White Blood Count 8.8x10^3/uL (4.0-11.0) Red Blood Count 3.06x10^6/uL (3.50-5.40) Hemoglobin 9.4g/dL (12.0-15.5) Hematocrit 29.5% (36.0-47.0) Mean Corpuscular Volume 96fL (79-100) Mean Corpuscular Hemoglobin 31pg (25-35) Mean Corpuscular Hemoglobin Concent 32g/dL (31-37) Red Cell Distribution Width 15.4% (11.5-14.5) Platelet Count 329x10^3/uL (140-400) Neutrophils (%) (Auto) 43% (31-73) Lymphocytes (%) (Auto) 37% (24-48) Monocytes (%) (Auto) 9% (0-9) Eosinophils (%) (Auto) 9% (0-3) Basophils (%) (Auto) 2% (0-3) Neutrophils # (Auto) 3.8x10^3uL (1.8-7.7) Lymphocytes # (Auto) 3.3x10^3/uL (1.0-4.8) Monocytes # (Auto) 0.8x10^3/uL (0.0-1.1) Eosinophils # (Auto) 0.8x10^3/uL (0.0-0.7) Basophils # (Auto) 0.2x10^3/uL (0.0-0.2) Sodium Level 142mmol/L (136-145) 141mmol/L (136-145) Potassium Level 3.8mmol/L (3.5-5.1) 4.5mmol/L (3.5-5.1) Chloride Level 107mmol/L (98-107) 110mmol/L (98-107) Carbon Dioxide Level 24mmol/L (21-32) 20mmol/L (21-32) Anion Gap 11 (6-14) 11 (6-14) Blood Urea Nitrogen 16mg/dL (7-20) 18mg/dL (7-20) Creatinine 2.5mg/dL (0.6-1.0) 2.1mg/dL (0.6-1.0) Estimated GFR (Cockcroft-Gault) 19.7 24.1 Glucose Level 87mg/dL (70-99) 100mg/dL (70-99) Calcium Level 8.1mg/dL (8.5-10.1) 8.0mg/dL (8.5-10.1) Magnesium Level 1.7mg/dL (1.8-2.4) Laboratory Tests Test 08/28/16 04:15 Sodium Level 141mmol/L (136-145) Potassium Level 4.5mmol/L (3.5-5.1) Chloride Level 110mmol/L (98-107) Carbon Dioxide Level 20mmol/L (21-32) Anion Gap 11 (6-14) Blood Urea Nitrogen 18mg/dL (7-20) Creatinine 2.1mg/dL (0.6-1.0) Estimated GFR (Cockcroft-Gault) 24.1 Glucose Level 100mg/dL (70-99) Calcium Level 8.0mg/dL (8.5-10.1) Medications Current Medications Sodium Chloride (Iv Sodium Chloride 0.9% 1000ml Bag) 1,000 ml @ 1,000 mls/hr Q1H IV Last administered on 08/25/16 15:32; Start 08/25/16 at 15:14; Stop at 17:10; Status DC Fentanyl Citrate (Fentanyl 2ml Vial) 50 mcg 1X ONCE IV Last administered on 15:33; Start 08/25/16 at 15:15; Stop 08/25/16 at 17:10; Status DC Ondansetron HCl (Zofran) 4 mg 1X ONCE IV Last administered on 08/25/16 15:33 ; Start 08/25/16 at 15:15; Stop 08/25/16 at 17:10; Status DC Famotidine (Pepcid) 20 mg 1X ONCE IVP Last administered on 08/25/16 15:33; Start 08/25/16 at 15:15; Stop 08/25/16 at 17:10; Status DC Vancomycin HCl 125 mg 1X ONCE PO Last administered on 08/25/16 17:20; Start 08/25/16 at 17:15; Stop 08/25/16 at 17:16; Status DC Ondansetron HCl (Zofran) 4 mg PRN Q8HRS PRN IV NAUSEA/VOMITING Last administered on 08/26/16 11:37; Start 08/25/16 at 17:30; Stop 08/26/16 at 17:29 ; Status DC Fentanyl Citrate 25 mcg 25 mcg PRN Q1HR PRN IV PAIN Last administered on 20:07; Start 08/25/16 at 17:30; Stop 08/26/16 at 17:29; Status DC Sodium Chloride (Iv Sodium Chloride 0.9% 1000ml Bag) 1,000 ml @ 125 mls/hr Q8H IV Last administered on 08/26/16 09:28; Start 08/25/16 at 17:28; Stop at 17:27; Status DC Acetaminophen (Tylenol) 650 mg PRN Q4HRS PRN PO FEVER; Start 08/25/16 at 17:30 ; Stop 08/26/16 at 17:29; Status DC Vancomycin HCl 125 mg [id number] PO Last administered on 08/28/16 08:51; Start at 23:00 Potassium Chloride (Klor-Con) 40 meq 1X ONCE PO Last administered on 18:51; Start 08/25/16 at 18:00; Stop 08/25/16 at 18:01; Status DC Acetaminophen (Tylenol) 650 mg PRN Q6HRS PRN PO PAIN MILD; Start 08/25/16 at 20 :15 Lactobacillus Acidophilus (Bacid, Kathryn-Bid) 1 tab TID PO Last administered on 08:51; Start 08/25/16 at 21:00 Alprazolam (Xanax) 0.5 mg PRN BID PRN PO ANXIETY / AGITATION Last administered on 08/28/16 08:51; Start 08/25/16 at 20:15 Ciprofloxacin (Cipro) 250 mg BID PO ; Start 08/25/16 at 21:00; Status UNV Escitalopram Oxalate (Lexapro) 10 mg DAILY PO Last administered on 08/28/16 08 :51; Start 08/26/16 at 09:00 Lisinopril (Prinivil) 10 mg DAILY PO Last administered on 08/26/16 08:23; Start 08/26/16 at 09:00; Stop 08/26/16 at 18:45; Status DC Oxycodone HCl (Roxicodone) 5 mg PRN Q8HRS PRN PO severe pain Last administered on 08/27/16 20:40; Start 08/25/16 at 20:15 Pantoprazole Sodium (Protonix) 40 mg DAILYAC PO Last administered on 08/28/16 08:51; Start 08/26/16 at 07:30 Non-Formulary Medication 125 mg QID PO ; Start 08/25/16 at 21:00; Status UNV Hydromorphone HCl 1 mg 1 mg PRN Q4HRS PRN IV PAIN Last administered on 09:15; Start 08/25/16 at 20:15 Sodium Chloride 1,000 ml @ 1,000 mls/hr 1X ONCE IV Last administered on 22:15; Start 08/26/16 at 22:15; Stop 08/26/16 at 23:14; Status DC Sodium Chloride 1,000 ml @ 1,000 mls/hr 1X ONCE IV Last administered on 00:30; Start 08/27/16 at 00:30; Stop 08/27/16 at 01:29; Status DC Sodium Chloride (Iv Sodium Chloride 0.9% 1000ml Bag) 1,000 ml @ 125 mls/hr Q8H IV Last administered on 08/28/16 02:26; Start 08/27/16 at 02:00 Ondansetron HCl (Zofran) 4 mg PRN Q8HRS PRN IV NAUSEA/VOMITING Last administered on 08/27/16 13:03; Start 08/27/16 at 12:15 Metoclopramide HCl (Reglan) 5 mg QIDACHS PO Last administered on 08/28/16 08: 50; Start 08/27/16 at 16:30 Active Scripts Active [Vancomycin Hcl] 125 MG/2.5 ML Solution 125 Mg PO QID 14 Days Cipro (Ciprofloxacin Hcl) 250 Mg Tablet 250 Mg PO BID Oxycodone Hcl 5 Mg Tablet 5 Mg PO Q8H PRN Nexium 24Hr (Esomeprazole Magnesium) 20 Mg Capsule.dr 20 Mg PO DAILY Kathryn-Bid Caplet (Acidoph/L.bulg/Bif.b/S.thermop) 1 Each Tablet 1 Tab PO TID Mapap (Acetaminophen) 325 Mg Tablet 650 Mg PO PRN Q6HRS PRN Escitalopram Oxalate 10 Mg Tablet 1 Tab PO DAILY Reported Xanax (Alprazolam) 0.5 Mg Tablet 1 Tab PO BID PRN Lisinopril 10 Mg Tablet 1 Tab PO DAILY Vitals/I & O Vital Sign - Last 24 Hours 08/27/16 08/27/16 08/27/16 08/27/16 11:23 12:55 15:00 17:28 Temp 98.4 98.2 98.4 98.2 Pulse 73 66 Resp 18 16 18 16 B/P 112/72 122/84 Pulse Ox 100 98 O2 Delivery Room Air Room Air Room Air Room Air 08/27/16 08/27/16 08/27/16 08/27/16 17:58 19:00 20:00 20:40 Temp 98.2 98.2 Pulse 83 Resp 18 18 18 B/P 139/73 Pulse Ox 100 100 O2 Delivery Room Air Room Air Room Air Room Air 08/27/16 08/27/16 08/28/16 08/28/16 21:40 22:29 02:23 03:10 Temp 97.9 98.1 97.9 98.1 Pulse 76 86 Resp 18 18 18 B/P 119/79 146/93 Pulse Ox 100 96 96 94 O2 Delivery Room Air Room Air Room Air Room Air 08/28/16 08/28/16 07:00 09:15 Temp 98.7 98.7 Pulse 87 Resp 19 20 B/P 145/90 Pulse Ox 100 100 O2 Delivery Room Air Room Air Intake and Output 08/27/16 08/27/16 08/28/16 15:00 23:00 07:00 Intake Total 1000 ml 600 ml Balance 1000 ml 600 ml MARY PARISI MD Aug 28, 2016 09:55
--- NOTE | 2016-08-28 10:11 | PDOC ---
Subjective: Subjective: Had some runny stools - hard to make it to restroom. Appetite a little better w/ Reglan. Objective: Vital Signs: Vital Signs Date Time Temp Pulse Resp B/P Pulse Ox O2 Delivery O2 Flow Rate FiO2 08/28/16 09:15 20 100 Room Air 08/28/16 07:00 98.7 87 145/90 98.7 Labs: Laboratory Tests Test 08/28/16 04:15 Sodium Level 141mmol/L Potassium Level 4.5mmol/L Chloride Level 110mmol/L Carbon Dioxide Level 20mmol/L Anion Gap 11 Blood Urea Nitrogen 18mg/dL Creatinine 2.1mg/dL Estimated GFR (Cockcroft-Gault) 24.1 Glucose Level 100mg/dL Calcium Level 8.0mg/dL PE: GEN: NAD, sitting up in bed eating cheerios LUNGS: CTAB HEART: RRR ABD: NABS, S/ND/NT NEURO/PSYCH: A & O 3 A/P: Recurrent n/v, diarrhea -h/o alcohol use -on PPI and Reglan susp here, cholestyramine at home -on vanco for C Diff (again +) -- Continue same per GI. ANNE-MARIE GARCIA Aug 28, 2016 10:11
--- NOTE | 2016-08-28 11:00 | PDOC ---
Renal-Progress Notes Subjective Notes Notes STILL HAVING DIARRHEA History of Present Illness Hx of present illness BETTER Vitals Vitals Vital Signs Date Time Temp Pulse Resp B/P Pulse Ox O2 Delivery O2 Flow Rate FiO2 08/28/16 10:54 98.1 97 19 147/86 98 Room Air 98.1 Weight Weight [ ] I.O. Intake and Output Intake and Output 08/28/16 07:00 Intake Total 1600 ml Balance 1600 ml Intake Oral 600 ml IV Total 1000 ml # Voids 1 # Bowel Movements 2 Labs Labs Laboratory Tests Test 08/28/16 04:15 Sodium Level 141mmol/L (136-145) Potassium Level 4.5mmol/L (3.5-5.1) Chloride Level 110mmol/L (98-107) Carbon Dioxide Level 20mmol/L (21-32) Anion Gap 11 (6-14) Blood Urea Nitrogen 18mg/dL (7-20) Creatinine 2.1mg/dL (0.6-1.0) Estimated GFR (Cockcroft-Gault) 24.1 Glucose Level 100mg/dL (70-99) Calcium Level 8.0mg/dL (8.5-10.1) Review of Systems Constitutional: yes: alert, oriented, weakness Ears/Nose/Throat: Yes: no symptom reported Eyes: Yes: no symptom reported Cardiovascular: Yes no symptom reported Gastrointestional: Yes: diarrhea Genitourinary: Yes: no symptom reported Musculoskeletal: Yes: no symptom reported Skin: Yes no symptom reported Physical Exam General Appearance: no apparent distress Skin: warm Respiratory: bilateral CTA Heart: S1S2, RRR Abdomen: soft, bowel sounds present Genitourinary: bladder flat Extremities: no edema Neurology: alert, oriented, follow commands Assessment Assessment IMP GILES-BETTER WITH CR DOWN TO 2.1 CKD STAGE 3 WITH CR OF 1.8 AT BASELINE DEHYDRATION C DIF-DIARRHEA LOW MAG LOW K CORRECTED PLAN CONT IVF'S REPLACE MAG WILL FOLLOW LABS IN AM DESIREE HERNANDEZ MD Aug 28, 2016 11:00
[2016-08-28] MEDS ORDERED: MAGNESIUM SULFATE 2GM 50 ML IV ONE (11:30)
[2016-08-28] MEDS: hydrALAZINE 20 MG/ML VIAL. IVP PRN (15:13)
[2016-08-28] MEDS ORDERED: IV NORMAL SALINE 500ML BAG 500 ML IV ONE (19:15)
[2016-08-28] MEDS: ONDANSETRON PF 4 MG/2 ML VIAL. IV PRN (20:18)
[2016-08-29] MEDS: OXYCODONE IR 5 MG TABLET. PO PRN ×3 (00:30→22:23)
[2016-08-29] MEDS: IV NORMAL SALINE 1000ML BAG 1,000 ML IV SCH ×3 (02:00→17:59)
[2016-08-29] MEDS: HYDROMORPHONE 2 MG/ML VIAL. IV PRN ×4 (04:07→17:59)
[2016-08-29 06:00] LABS: CALCIUM 8.3 mg/dL (8.5-10.1); CREATININE 1.9 mg/dL (0.6-1.0); GFR 27.1; MAGNESIUM 2.1 mg/dL (1.8-2.4); POTASSIUM 4.9 mmol/L (3.5-5.1)
[2016-08-29 07:00] VITALS: BP 150/99
--- NOTE | 2016-08-29 09:12 | PDOC ---
Subjective: Subjective: Vomiting and abdominal pain. Objective: Vital Signs: Vital Signs Date Time Temp Pulse Resp B/P Pulse Ox O2 Delivery O2 Flow Rate FiO2 08/29/16 07:00 98.6 93 20 150/99 97 Room Air 98.6 Labs: Laboratory Tests Test 08/29/16 05:15 Sodium Level 141mmol/L Potassium Level 4.9mmol/L Chloride Level 111mmol/L Carbon Dioxide Level 23mmol/L Anion Gap 7 Blood Urea Nitrogen 16mg/dL Creatinine 1.9mg/dL Estimated GFR (Cockcroft-Gault) 27.1 Glucose Level 94mg/dL Calcium Level 8.3mg/dL Magnesium Level 2.1mg/dL PE: GEN: tearful, holding emesis basin LUNGS: CTAB HEART: RRR ABD: tender NEURO/PSYCH: A & O 3 A/P: Recurrent n/v, abd pain, diarrhea - recurrence of n/v and pain today -h/o alcohol use -on PPI and Reglan susp here, cholestyramine at home -on vanco for C Diff (again +) -- Change to NPO, IV Reglan. ANNE-MARIE GARCIA Aug 29, 2016 09:12
[2016-08-29] MEDS: ONDANSETRON PF 4 MG/2 ML VIAL. IV PRN (09:21)
[2016-08-29] MEDS: VANCOMYCIN 125 MG/2.5 ML ORAL SOLUTION. PO SCH ×4 (09:26→22:23)
[2016-08-29] MEDS: ESCITALOPRAM 10 MG TABLET. PO SCH (09:27)
[2016-08-29] MEDS: LACTOBACILLUS ACIDOPH & BULGAR 1 TABLET. PO SCH ×3 (09:27→22:24)
[2016-08-29] MEDS: ALPRAZOLAM 0.5 MG TABLET PO PRN ×2 (09:28→22:23)
[2016-08-29] MEDS: PANTOPRAZOLE IV PUSH 40 MG VIAL. IVP SCH (09:58)
--- NOTE | 2016-08-29 10:05 | PDOC ---
PROGRESS NOTES Chief Complaint Chief Complaint Diarrhea Dehydration ASSESSMENT AND PLAN: 1. Diarrhea: recent dx of C.diff, on PO vanco , continue to have diarrhea, C diff positive. 2. Dehydration: 2/2 above. IFV 3. GILES: vasomotor. improving. cont IVF 4. Hypokalemia: better now 5. chronic back pain: long-standing hx of back pain, post surgery in distant past. oxyIR PRN on iv Dilaudid pRN 6. Narcotic dependence: difficult to manage with true underlying pain issues. 7. EtOH dependence: states she has been "dry" since Jul. 8. CKD: baseline creat about 1.5 9. Accelerated HTN: IV hydralazine 20 mg better. History of Present Illness History of Present Illness vomiting today no fever not feeling well wants to eat. Vitals Vitals Vital Signs Date Time Temp Pulse Resp B/P Pulse Ox O2 Delivery O2 Flow Rate FiO2 08/29/16 09:49 20 97 Room Air 08/29/16 07:00 98.6 93 150/99 98.6 Physical Exam General: Alert, Oriented X3, Cooperative Heart: Regular rate, Normal S1, Normal S2 Lungs: Clear Abdomen: Normal bowel sounds, No tenderness Extremities: No edema Skin: No significant lesion Labs LABS Laboratory Tests Test 08/29/16 05:15 Sodium Level 141mmol/L (136-145) Potassium Level 4.9mmol/L (3.5-5.1) Chloride Level 111mmol/L (98-107) Carbon Dioxide Level 23mmol/L (21-32) Anion Gap 7 (6-14) Blood Urea Nitrogen 16mg/dL (7-20) Creatinine 1.9mg/dL (0.6-1.0) Estimated GFR (Cockcroft-Gault) 27.1 Glucose Level 94mg/dL (70-99) Calcium Level 8.3mg/dL (8.5-10.1) Magnesium Level 2.1mg/dL (1.8-2.4) Assessment and Plan Assessmemt and Plan Problems Medical Problems: (1) GILES (acute kidney injury) Status: Acute (2) C. difficile diarrhea Status: Acute Problems: Comment Review of Relevant I have reviewed the following items blade (where applicable) has been applied. Labs Laboratory Tests Test 08/28/16 04:15 08/29/16 05:15 Sodium Level 141mmol/L (136-145) 141mmol/L (136-145) Potassium Level 4.5mmol/L (3.5-5.1) 4.9mmol/L (3.5-5.1) Chloride Level 110mmol/L (98-107) 111mmol/L (98-107) Carbon Dioxide Level 20mmol/L (21-32) 23mmol/L (21-32) Anion Gap 11 (6-14) 7 (6-14) Blood Urea Nitrogen 18mg/dL (7-20) 16mg/dL (7-20) Creatinine 2.1mg/dL (0.6-1.0) 1.9mg/dL (0.6-1.0) Estimated GFR (Cockcroft-Gault) 24.1 27.1 Glucose Level 100mg/dL (70-99) 94mg/dL (70-99) Calcium Level 8.0mg/dL (8.5-10.1) 8.3mg/dL (8.5-10.1) Magnesium Level 2.1mg/dL (1.8-2.4) Laboratory Tests Test 08/29/16 05:15 Sodium Level 141mmol/L (136-145) Potassium Level 4.9mmol/L (3.5-5.1) Chloride Level 111mmol/L (98-107) Carbon Dioxide Level 23mmol/L (21-32) Anion Gap 7 (6-14) Blood Urea Nitrogen 16mg/dL (7-20) Creatinine 1.9mg/dL (0.6-1.0) Estimated GFR (Cockcroft-Gault) 27.1 Glucose Level 94mg/dL (70-99) Calcium Level 8.3mg/dL (8.5-10.1) Magnesium Level 2.1mg/dL (1.8-2.4) Medications Current Medications Sodium Chloride (Iv Sodium Chloride 0.9% 1000ml Bag) 1,000 ml @ 1,000 mls/hr Q1H IV Last administered on 08/25/16t 15:32; Start 08/25/16 at 15:14; Stop at 17:10; Status DC Fentanyl Citrate (Fentanyl 2ml Vial) 50 mcg 1X ONCE IV Last administered on 15:33; Start 08/25/16 at 15:15; Stop 08/25/16 at 17:10; Status DC Ondansetron HCl (Zofran) 4 mg 1X ONCE IV Last administered on 08/25/16 15:33 ; Start 08/25/16 at 15:15; Stop 08/25/16 at 17:10; Status DC Famotidine (Pepcid) 20 mg 1X ONCE IVP Last administered on 08/25/16 15:33; Start 08/25/16 at 15:15; Stop 08/25/16 at 17:10; Status DC Vancomycin HCl 125 mg 1X ONCE PO Last administered on 08/25/16 17:20; Start 08/25/16 at 17:15; Stop 08/25/16 at 17:16; Status DC Ondansetron HCl (Zofran) 4 mg PRN Q8HRS PRN IV NAUSEA/VOMITING Last administered on 08/26/16 11:37; Start 08/25/16 at 17:30; Stop 08/26/16 at 17:29 ; Status DC Fentanyl Citrate 25 mcg 25 mcg PRN Q1HR PRN IV PAIN Last administered on 20:07; Start 08/25/16 at 17:30; Stop 08/26/16 at 17:29; Status DC Sodium Chloride (Iv Sodium Chloride 0.9% 1000ml Bag) 1,000 ml @ 125 mls/hr Q8H IV Last administered on 08/26/16 09:28; Start 08/25/16 at 17:28; Stop at 17:27; Status DC Acetaminophen (Tylenol) 650 mg PRN Q4HRS PRN PO FEVER; Start 08/25/16 at 17:30 ; Stop 08/26/16 at 17:29; Status DC Vancomycin HCl 125 mg [id number] PO Last administered on 08/29/16 09:26; Start at 23:00 Potassium Chloride (Klor-Con) 40 meq 1X ONCE PO Last administered on 18:51; Start 08/25/16 at 18:00; Stop 08/25/16 at 18:01; Status DC Acetaminophen (Tylenol) 650 mg PRN Q6HRS PRN PO PAIN MILD; Start 08/25/16 at 20 :15 Lactobacillus Acidophilus (Bacid, Kathryn-Bid) 1 tab TID PO Last administered on 09:27; Start 08/25/16 at 21:00 Alprazolam (Xanax) 0.5 mg PRN BID PRN PO ANXIETY / AGITATION Last administered on 08/29/16 09:28; Start 08/25/16 at 20:15 Ciprofloxacin (Cipro) 250 mg BID PO ; Start 08/25/16 at 21:00; Status UNV Escitalopram Oxalate (Lexapro) 10 mg DAILY PO Last administered on 08/29/16 09: 27; Start 08/26/16 at 09:00 Lisinopril (Prinivil) 10 mg DAILY PO Last administered on 08/26/16 08:23; Start 08/26/16 at 09:00; Stop 08/26/16 at 18:45; Status DC Oxycodone HCl (Roxicodone) 5 mg PRN Q8HRS PRN PO severe pain Last administered on 08/29/16 00:30; Start 08/25/16 at 20:15 Pantoprazole Sodium (Protonix) 40 mg DAILYAC PO Last administered on 08/28/16 08:51; Start 08/26/16 at 07:30; Stop 08/29/16 at 09:13; Status DC Non-Formulary Medication 125 mg QID PO ; Start 08/25/16 at 21:00; Status UNV Hydromorphone HCl 1 mg 1 mg PRN Q4HRS PRN IV PAIN Last administered on 09:19; Start 08/25/16 at 20:15 Sodium Chloride 1,000 ml @ 1,000 mls/hr 1X ONCE IV Last administered on 22:15; Start 08/26/16 at 22:15; Stop 08/26/16 at 23:14; Status DC Sodium Chloride 1,000 ml @ 1,000 mls/hr 1X ONCE IV Last administered on 00:30; Start 08/27/16 at 00:30; Stop 08/27/16 at 01:29; Status DC Sodium Chloride (Iv Sodium Chloride 0.9% 1000ml Bag) 1,000 ml @ 125 mls/hr Q8H IV Last administered on 08/29/16 02:00; Start 08/27/16 at 02:00 Ondansetron HCl (Zofran) 4 mg PRN Q8HRS PRN IV NAUSEA/VOMITING Last administered on 08/29/16 09:21; Start 08/27/16 at 12:15 Metoclopramide HCl 5 mg 5 mg QIDACHS PO Last administered on 08/28/16 20:17; Start 08/27/16 at 16:30; Stop 08/29/16 at 09:13; Status DC Magnesium Sulfate/ Dextrose (Magnesium Sulfate PREMIX 2GM) 50 ml @ 25 mls/hr 1X ONCE IV Last administered on 08/28/16 13:52; Start 08/28/16 at 11:30; Stop 08/28/16 at 13:29; Status DC Hydralazine HCl 20 mg 20 mg PRN Q4HRS PRN IVP for SBP > 170 Last administered on 08/28/16 15:13; Start 08/28/16 at 15:00 Sodium Chloride (Iv Sodium Chloride 0.9% 500ml Bag) 500 ml @ 500 mls/hr 1X ONCE IV Last administered on 08/28/16 19:15; Start 08/28/16 at 19:15; Stop at 20:14; Status DC Metoclopramide HCl (Reglan) 5 mg QIDACHS IV ; Start 08/29/16 at 11:30 Pantoprazole Sodium (Protonix Vial) 40 mg DAILYAC IVP ; Start 08/29/16 at 10:00 Active Scripts Active [Vancomycin Hcl] 125 MG/2.5 ML Solution 125 Mg PO QID 14 Days Cipro (Ciprofloxacin Hcl) 250 Mg Tablet 250 Mg PO BID Oxycodone Hcl 5 Mg Tablet 5 Mg PO Q8H PRN Nexium 24Hr (Esomeprazole Magnesium) 20 Mg Capsule.dr 20 Mg PO DAILY Kathryn-Bid Caplet (Acidoph/L.bulg/Bif.b/S.thermop) 1 Each Tablet 1 Tab PO TID Mapap (Acetaminophen) 325 Mg Tablet 650 Mg PO PRN Q6HRS PRN Escitalopram Oxalate 10 Mg Tablet 1 Tab PO DAILY Reported Xanax (Alprazolam) 0.5 Mg Tablet 1 Tab PO BID PRN Lisinopril 10 Mg Tablet 1 Tab PO DAILY Vitals/I & O Vital Sign - Last 24 Hours 08/28/16 08/28/16 08/28/16 08/28/16 10:54 14:59 15:03 15:13 Temp 98.1 96.6 98.1 96.6 Pulse 97 101 109 Resp 19 22 20 B/P 147/86 209/123 208/121 Pulse Ox 98 100 100 O2 Delivery Room Air Room Air Room Air 08/28/16 08/28/16 08/28/16 08/28/16 16:05 16:11 16:16 16:22 Pulse 108 114 114 115 Resp 22 20 20 20 B/P 215/136 198/125 167/96 150/88 Pulse Ox 97 97 97 97 O2 Delivery Room Air Room Air Room Air Room Air 08/28/16 08/28/16 08/28/16 08/28/16 16:30 16:38 16:53 17:00 Pulse 119 120 125 123 Resp 20 20 20 20 B/P 131/76 139/79 130/80 130/79 Pulse Ox 97 97 97 97 O2 Delivery Room Air Room Air Room Air Room Air 08/28/16 08/28/16 08/28/16 08/28/16 19:00 19:00 20:00 20:18 Temp 98.8 98.8 Pulse 115 113 Resp 18 20 B/P 163/96 167/96 Pulse Ox 99 97 99 O2 Delivery Room Air Room Air Room Air Room Air 08/28/16 08/29/16 08/29/16 08/29/16 23:00 00:30 01:30 02:55 Temp 99.0 99.0 Pulse 102 Resp 18 18 18 B/P 141/86 Pulse Ox 97 97 97 O2 Delivery Room Air Room Air Room Air Room Air 08/29/16 08/29/16 08/29/16 08/29/16 04:07 07:00 09:19 09:49 Temp 98.6 98.6 Pulse 93 Resp 18 20 20 20 B/P 150/99 Pulse Ox 97 97 97 97 O2 Delivery Room Air Room Air Room Air Room Air Intake and Output 08/28/16 08/28/16 08/29/16 15:00 23:00 07:00 Intake Total 450 ml 800 ml Output Total 0 ml Balance 450 ml 800 ml 0 ml MARY PARISI MD Aug 29, 2016 10:05
--- NOTE | 2016-08-29 10:47 | PDOC ---
Renal-Progress Notes Subjective Notes Notes STABLE History of Present Illness Hx of present illness BETTER Vitals Vitals Vital Signs Date Time Temp Pulse Resp B/P Pulse Ox O2 Delivery O2 Flow Rate FiO2 08/29/16 09:49 20 97 Room Air 08/29/16 07:00 98.6 93 150/99 98.6 Weight Weight [ ] I.O. Intake and Output Intake and Output 08/29/16 07:00 Intake Total 1250 ml Output Total 0 ml Balance 1250 ml Intake Oral 1250 ml Output Urine Total 0 ml # Voids 3 # Bowel Movements 2 Labs Labs Laboratory Tests Test 08/29/16 05:15 Sodium Level 141mmol/L (136-145) Potassium Level 4.9mmol/L (3.5-5.1) Chloride Level 111mmol/L (98-107) Carbon Dioxide Level 23mmol/L (21-32) Anion Gap 7 (6-14) Blood Urea Nitrogen 16mg/dL (7-20) Creatinine 1.9mg/dL (0.6-1.0) Estimated GFR (Cockcroft-Gault) 27.1 Glucose Level 94mg/dL (70-99) Calcium Level 8.3mg/dL (8.5-10.1) Magnesium Level 2.1mg/dL (1.8-2.4) Review of Systems Constitutional: yes: alert, oriented, weakness Ears/Nose/Throat: Yes: no symptom reported Eyes: Yes: no symptom reported Cardiovascular: Yes no symptom reported Gastrointestional: Yes: diarrhea Genitourinary: Yes: no symptom reported Musculoskeletal: Yes: no symptom reported Skin: Yes no symptom reported Physical Exam General Appearance: no apparent distress Skin: warm Respiratory: bilateral CTA Heart: S1S2, RRR Abdomen: soft, bowel sounds present Genitourinary: bladder flat Extremities: no edema Neurology: alert, oriented, follow commands Assessment Assessment IMP GILES-BETTER WITH CR DOWN TO 1.9 CKD STAGE 3 WITH CR OF 1.8 AT BASELINE DEHYDRATION C DIF-DIARRHEA LOW MAG-CORRECTED LOW K CORRECTED PLAN DECREASE IVF'S REPLACE MAG WILL FOLLOW LABS IN AM DESIREE HERNANDEZ MD Aug 29, 2016 10:47
[2016-08-29 11:00] VITALS: BP 146/87
[2016-08-29] MEDS: METOCLOPRAMIDE HCL 10 MG/2 ML VIAL. IV SCH ×3 (12:23→22:22)
[2016-08-29 15:00] VITALS: BP 152/91
[2016-08-29 19:00] VITALS: BP 153/89
[2016-08-29 23:00] VITALS: BP 140/91
[2016-08-30] VITALS (9 sets, daily range): BP systolic 126–227; BP diastolic 83–141
[2016-08-30] MEDS: IV NORMAL SALINE 1000ML BAG 1,000 ML IV SCH ×3 (01:12→20:00)
[2016-08-30] MEDS: HYDROMORPHONE 2 MG/ML VIAL. IV PRN ×5 (02:55→21:17)
[2016-08-30] MEDS: ONDANSETRON PF 4 MG/2 ML VIAL. IV PRN ×2 (02:55→11:45)
[2016-08-30 03:51] LABS: CALCIUM 8.7 mg/dL (8.5-10.1); CREATININE 1.8 mg/dL (0.6-1.0); GFR 28.8; POTASSIUM 4.8 mmol/L (3.5-5.1)
[2016-08-30] MEDS: ALPRAZOLAM 0.5 MG TABLET PO PRN ×2 (06:30→21:16)
[2016-08-30] MEDS: OXYCODONE IR 5 MG TABLET. PO PRN ×3 (06:30→22:59)
[2016-08-30] MEDS: METOCLOPRAMIDE HCL 10 MG/2 ML VIAL. IV SCH ×4 (08:12→21:17)
[2016-08-30] MEDS: ESCITALOPRAM 10 MG TABLET. PO SCH (08:14)
[2016-08-30] MEDS: hydrALAZINE 20 MG/ML VIAL. IVP PRN (08:14)
[2016-08-30] MEDS: LACTOBACILLUS ACIDOPH & BULGAR 1 TABLET. PO SCH ×3 (08:14→21:17)
[2016-08-30] MEDS: PANTOPRAZOLE IV PUSH 40 MG VIAL. IVP SCH (08:15)
[2016-08-30] MEDS: VANCOMYCIN 125 MG/2.5 ML ORAL SOLUTION. PO SCH ×4 (08:30→21:16)
--- NOTE | 2016-08-30 09:54 | PDOC ---
PROGRESS NOTES Chief Complaint Chief Complaint Diarrhea Dehydration ASSESSMENT AND PLAN: 1. Diarrhea: recent dx of C.diff, on PO vanco , continue to have diarrhea, C diff positive. 2. Nausea and vomiting: on iv Zofran and IV regaln, GI following. 3. GILES: vasomotor. improving. cont IVF 4. Hypokalemia: better now 5. Acute abdominal pain:increase dilaudid to 2 mg, add CT abdomen, 6. Narcotic dependence: difficult to manage with true underlying pain issues. 7. EtOH dependence: states she has been "dry" since Jul. 8. CKD: baseline creat about 1.5 9. Accelerated HTN: IV hydralazine 20 mg better. with IV Metoprolol. History of Present Illness History of Present Illness vomiting today no fever not feeling well clear liquid diet. Vitals Vitals Vital Signs Date Time Temp Pulse Resp B/P Pulse Ox O2 Delivery O2 Flow Rate FiO2 08/30/16 09:33 121 175/99 08/30/16 07:50 99.1 20 96 Room Air 99.1 Physical Exam General: Alert, Oriented X3, Cooperative Heart: Regular rate, Normal S1, Normal S2 Lungs: Clear Abdomen: Normal bowel sounds, No tenderness Extremities: No edema Skin: No significant lesion Labs LABS Laboratory Tests Test 08/30/16 03:10 Sodium Level 139mmol/L (136-145) Potassium Level 4.8mmol/L (3.5-5.1) Chloride Level 110mmol/L (98-107) Carbon Dioxide Level 22mmol/L (21-32) Anion Gap 7 (6-14) Blood Urea Nitrogen 15mg/dL (7-20) Creatinine 1.8mg/dL (0.6-1.0) Estimated GFR (Cockcroft-Gault) 28.8 Glucose Level 90mg/dL (70-99) Calcium Level 8.7mg/dL (8.5-10.1) Assessment and Plan Assessmemt and Plan Problems Medical Problems: (1) GILES (acute kidney injury) Status: Acute (2) C. difficile diarrhea Status: Acute Problems: Comment Review of Relevant I have reviewed the following items blade (where applicable) has been applied. Labs Laboratory Tests Test 08/29/16 05:15 08/30/16 03:10 Sodium Level 141mmol/L (136-145) 139mmol/L (136-145) Potassium Level 4.9mmol/L (3.5-5.1) 4.8mmol/L (3.5-5.1) Chloride Level 111mmol/L (98-107) 110mmol/L (98-107) Carbon Dioxide Level 23mmol/L (21-32) 22mmol/L (21-32) Anion Gap 7 (6-14) 7 (6-14) Blood Urea Nitrogen 16mg/dL (7-20) 15mg/dL (7-20) Creatinine 1.9mg/dL (0.6-1.0) 1.8mg/dL (0.6-1.0) Estimated GFR (Cockcroft-Gault) 27.1 28.8 Glucose Level 94mg/dL (70-99) 90mg/dL (70-99) Calcium Level 8.3mg/dL (8.5-10.1) 8.7mg/dL (8.5-10.1) Magnesium Level 2.1mg/dL (1.8-2.4) Laboratory Tests Test 08/30/16 03:10 Sodium Level 139mmol/L (136-145) Potassium Level 4.8mmol/L (3.5-5.1) Chloride Level 110mmol/L (98-107) Carbon Dioxide Level 22mmol/L (21-32) Anion Gap 7 (6-14) Blood Urea Nitrogen 15mg/dL (7-20) Creatinine 1.8mg/dL (0.6-1.0) Estimated GFR (Cockcroft-Gault) 28.8 Glucose Level 90mg/dL (70-99) Calcium Level 8.7mg/dL (8.5-10.1) Medications Current Medications Sodium Chloride (Iv Sodium Chloride 0.9% 1000ml Bag) 1,000 ml @ 1,000 mls/hr Q1H IV Last administered on 08/25/16 15:32; Start 08/25/16 at 15:14; Stop at 17:10; Status DC Fentanyl Citrate (Fentanyl 2ml Vial) 50 mcg 1X ONCE IV Last administered on 15:33; Start 08/25/16 at 15:15; Stop 08/25/16 at 17:10; Status DC Ondansetron HCl (Zofran) 4 mg 1X ONCE IV Last administered on 08/25/16 15:33 ; Start 08/25/16 at 15:15; Stop 08/25/16 at 17:10; Status DC Famotidine (Pepcid) 20 mg 1X ONCE IVP Last administered on 08/25/16 15:33; Start 08/25/16 at 15:15; Stop 08/25/16 at 17:10; Status DC Vancomycin HCl 125 mg 1X ONCE PO Last administered on 08/25/16 17:20; Start 08/25/16 at 17:15; Stop 08/25/16 at 17:16; Status DC Ondansetron HCl (Zofran) 4 mg PRN Q8HRS PRN IV NAUSEA/VOMITING Last administered on 08/26/16 11:37; Start 08/25/16 at 17:30; Stop 08/26/16 at 17:29 ; Status DC Fentanyl Citrate 25 mcg 25 mcg PRN Q1HR PRN IV PAIN Last administered on 20:07; Start 08/25/16 at 17:30; Stop 08/26/16 at 17:29; Status DC Sodium Chloride (Iv Sodium Chloride 0.9% 1000ml Bag) 1,000 ml @ 125 mls/hr Q8H IV Last administered on 08/26/16 09:28; Start 08/25/16 at 17:28; Stop at 17:27; Status DC Acetaminophen (Tylenol) 650 mg PRN Q4HRS PRN PO FEVER; Start 08/25/16 at 17:30 ; Stop 08/26/16 at 17:29; Status DC Vancomycin HCl 125 mg [id number] PO Last administered on 08/30/16 08:30; Start at 23:00 Potassium Chloride (Klor-Con) 40 meq 1X ONCE PO Last administered on 18:51; Start 08/25/16 at 18:00; Stop 08/25/16 at 18:01; Status DC Acetaminophen (Tylenol) 650 mg PRN Q6HRS PRN PO PAIN MILD; Start 08/25/16 at 20 :15 Lactobacillus Acidophilus (Bacid, Kathryn-Bid) 1 tab TID PO Last administered on 08:14; Start 08/25/16 at 21:00 Alprazolam (Xanax) 0.5 mg PRN BID PRN PO ANXIETY / AGITATION Last administered on 08/30/16 06:30; Start 08/25/16 at 20:15 Ciprofloxacin (Cipro) 250 mg BID PO ; Start 08/25/16 at 21:00; Status UNV Escitalopram Oxalate (Lexapro) 10 mg DAILY PO Last administered on 08/30/16 08: 14; Start 08/26/16 at 09:00 Lisinopril (Prinivil) 10 mg DAILY PO Last administered on 08/26/16 08:23; Start 08/26/16 at 09:00; Stop 08/26/16 at 18:45; Status DC Oxycodone HCl (Roxicodone) 5 mg PRN Q8HRS PRN PO severe pain Last administered on 08/30/16 06:30; Start 08/25/16 at 20:15 Pantoprazole Sodium (Protonix) 40 mg DAILYAC PO Last administered on 08/28/16 08:51; Start 08/26/16 at 07:30; Stop 08/29/16 at 09:13; Status DC Non-Formulary Medication 125 mg QID PO ; Start 08/25/16 at 21:00; Status UNV Hydromorphone HCl 1 mg 1 mg PRN Q4HRS PRN IV PAIN Last administered on 08:10; Start 08/25/16 at 20:15 Sodium Chloride 1,000 ml @ 1,000 mls/hr 1X ONCE IV Last administered on 22:15; Start 08/26/16 at 22:15; Stop 08/26/16 at 23:14; Status DC Sodium Chloride 1,000 ml @ 1,000 mls/hr 1X ONCE IV Last administered on 00:30; Start 08/27/16 at 00:30; Stop 08/27/16 at 01:29; Status DC Sodium Chloride (Iv Sodium Chloride 0.9% 1000ml Bag) 1,000 ml @ 125 mls/hr Q8H IV Last administered on 08/30/16 01:12; Start 08/27/16 at 02:00 Ondansetron HCl (Zofran) 4 mg PRN Q8HRS PRN IV NAUSEA/VOMITING Last administered on 08/30/16 02:55; Start 08/27/16 at 12:15 Metoclopramide HCl 5 mg 5 mg QIDACHS PO Last administered on 08/28/16 20:17; Start 08/27/16 at 16:30; Stop 08/29/16 at 09:13; Status DC Magnesium Sulfate/ Dextrose (Magnesium Sulfate PREMIX 2GM) 50 ml @ 25 mls/hr 1X ONCE IV Last administered on 08/28/16 13:52; Start 08/28/16 at 11:30; Stop 08/28/16 at 13:29; Status DC Hydralazine HCl 20 mg 20 mg PRN Q4HRS PRN IVP for SBP > 170 Last administered on 08/30/16 08:14; Start 08/28/16 at 15:00 Sodium Chloride (Iv Sodium Chloride 0.9% 500ml Bag) 500 ml @ 500 mls/hr 1X ONCE IV Last administered on 08/28/16 19:15; Start 08/28/16 at 19:15; Stop at 20:14; Status DC Metoclopramide HCl (Reglan) 5 mg QIDACHS IV Last administered on 08/30/16 08:12 ; Start 08/29/16 at 11:30 Pantoprazole Sodium (Protonix Vial) 40 mg DAILYAC IVP Last administered on 08:15; Start 08/29/16 at 10:00 Active Scripts Active [Vancomycin Hcl] 125 MG/2.5 ML Solution 125 Mg PO QID 14 Days Cipro (Ciprofloxacin Hcl) 250 Mg Tablet 250 Mg PO BID Oxycodone Hcl 5 Mg Tablet 5 Mg PO Q8H PRN Nexium 24Hr (Esomeprazole Magnesium) 20 Mg Capsule.dr 20 Mg PO DAILY Kathryn-Bid Caplet (Acidoph/L.bulg/Bif.b/S.thermop) 1 Each Tablet 1 Tab PO TID Mapap (Acetaminophen) 325 Mg Tablet 650 Mg PO PRN Q6HRS PRN Escitalopram Oxalate 10 Mg Tablet 1 Tab PO DAILY Reported Xanax (Alprazolam) 0.5 Mg Tablet 1 Tab PO BID PRN Lisinopril 10 Mg Tablet 1 Tab PO DAILY Vitals/I & O Vital Sign - Last 24 Hours 08/29/16 08/29/16 08/29/16 08/29/16 11:00 12:25 13:25 13:56 Temp 98.6 98.6 Pulse 84 Resp 20 20 20 20 B/P 146/87 Pulse Ox 98 98 98 98 O2 Delivery Room Air Room Air Room Air Room Air 08/29/16 08/29/16 08/29/16 08/29/16 15:00 17:59 18:29 19:00 Temp 98.5 98.7 98.5 98.7 Pulse 95 101 Resp 19 20 20 20 B/P 152/91 153/89 Pulse Ox 98 98 98 98 O2 Delivery Room Air Room Air Room Air Room Air 08/29/16 08/29/16 08/29/16 08/30/16 20:00 22:23 23:00 02:55 Temp 98.9 98.9 Pulse 100 Resp 18 20 18 B/P 140/91 Pulse Ox 98 97 97 O2 Delivery Room Air Room Air Room Air Room Air 08/30/16 08/30/16 08/30/16 08/30/16 03:00 06:30 07:50 08:14 Temp 98.9 99.1 98.9 99.1 Pulse 89 117 117 Resp 20 18 20 B/P 156/95 218/131 218/131 Pulse Ox 98 98 96 O2 Delivery Room Air Room Air Room Air 08/30/16 09:33 Pulse 121 B/P 175/99 Intake and Output 08/29/16 08/29/16 08/30/16 15:00 23:00 07:00 Intake Total 250 ml 250 ml 600 ml Output Total 1 ml Balance 250 ml 249 ml 600 ml MARY PARISI MD Aug 30, 2016 09:54
--- NOTE | 2016-08-30 10:59 | PDOC ---
Subjective: Subjective: Still miserable w/ nausea, vomiting (twice this morning - clear, greenish bile) , and epigastric pain. Diarrhea x 2-3. Objective: Objective: HTN noted. GI history/workup: EGD 07/21/[address] Orosco: acute esophagitis, hiatal hernia. HIDA in 03/2015 was normal w/ normal gallbladder ejection fraction. GET in 03/2015 showed markedly delayed gastric emptying w/ T1/2 time of [address]3 min[address] Dr[address] Díaz in 2013: colon biopsies were negative for microscopic colitis. Vital Signs: Vital Signs Date Time Temp Pulse Resp B/P Pulse Ox O2 Delivery O2 Flow Rate FiO2 08/30/16 09:33 121 175/99 08/30/16 08:00 Room Air 08/30/16 07:50 99.1 20 96 99.1 Labs: Laboratory Tests Test 08/30/16 03:10 Sodium Level 139mmol/L Potassium Level 4.8mmol/L Chloride Level 110mmol/L Carbon Dioxide Level 22mmol/L Anion Gap 7 Blood Urea Nitrogen 15mg/dL Creatinine 1.8mg/dL Estimated GFR (Cockcroft-Gault) 28.8 Glucose Level 90mg/dL Calcium Level 8.7mg/dL PE: GEN: looks ill LUNGS: clear anteriorly HEART: tachycardic ABD: epigastric tenderness NEURO/PSYCH: A & O 3 A/P: Recurrent n/v, abd pain, diarrhea -h/o reflux, gastroparesis, alcoholism -changed Reglan and PPI to IV yesterday, along w/ NPO -on oral vanco for C Diff (again +) -- Will review w/ Dr. Orosco. ANNE-MARIE GARCIA Aug 30, 2016 10:59
[2016-08-30] MEDS ORDERED: METOPROLOL TART IMMED RELEASE 25 MG TABLET PO SCH (11:00)
--- NOTE | 2016-08-30 11:09 | PDOC ---
Renal-Progress Notes Subjective Notes Notes NONE History of Present Illness Hx of present illness NO CHANGE STILL HAVING SAME SYMPTOMS Vitals Vitals Vital Signs Date Time Temp Pulse Resp B/P Pulse Ox O2 Delivery O2 Flow Rate FiO2 08/30/16 11:03 121 175/99 08/30/16 08:00 Room Air 08/30/16 07:50 99.1 20 96 99.1 Weight Weight [ ] I.O. Intake and Output Intake and Output 08/30/16 07:00 Intake Total 1100 ml Output Total 1 ml Balance 1099 ml Intake Oral 1100 ml Output Urine Total 1 ml # Voids 3 Labs Labs Laboratory Tests Test 08/30/16 03:10 Sodium Level 139mmol/L (136-145) Potassium Level 4.8mmol/L (3.5-5.1) Chloride Level 110mmol/L (98-107) Carbon Dioxide Level 22mmol/L (21-32) Anion Gap 7 (6-14) Blood Urea Nitrogen 15mg/dL (7-20) Creatinine 1.8mg/dL (0.6-1.0) Estimated GFR (Cockcroft-Gault) 28.8 Glucose Level 90mg/dL (70-99) Calcium Level 8.7mg/dL (8.5-10.1) Review of Systems Constitutional: yes: alert, oriented, weakness Ears/Nose/Throat: Yes: no symptom reported Eyes: Yes: no symptom reported Cardiovascular: Yes no symptom reported Gastrointestional: Yes: diarrhea Genitourinary: Yes: no symptom reported Musculoskeletal: Yes: no symptom reported Skin: Yes no symptom reported Physical Exam General Appearance: no apparent distress Skin: warm Respiratory: bilateral CTA Heart: S1S2, RRR Abdomen: soft, bowel sounds present Genitourinary: bladder flat Extremities: no edema Neurology: alert, oriented, follow commands Assessment Assessment IMP GILES-BETTER WITH CR DOWN TO 1.8 NOW CKD STAGE 3 WITH CR OF 1.8 AT BASELINE DEHYDRATION C DIF-DIARRHEA LOW MAG-CORRECTED LOW K CORRECTED PLAN DECREASE IVF'S REPLACE MAG WILL FOLLOW LABS IN AM DESIREE HERNANDEZ MD Aug 30, 2016 11:09
[2016-08-30] MEDS: METOPROLOL TARTRATE 5 MG/5 ML VIAL. IVP SCH ×2 (11:45→16:51)
--- NOTE | 2016-08-30 13:14 | RAD ---
Exam performed: CT abdomen pelvis without contrast. History: Abdominal pain and intractable nausea and vomiting. Date of service: 08/30/16. Comparison: 07/30/16. Technique: Contiguous helical acquisitions are obtained through the abdomen and pelvis without IV contrast. Sagittal and coronal reformatted images are obtained and reviewed. Findings: The lung bases demonstrates small right and tiny left pleural effusion. Small hiatal hernia. Lack of IV contrast limits evaluation of abdominal viscera, however the liver, spleen, pancreas and gallbladder appear normal. Both adrenal glands and bilateral kidneys are normal in size and mild bilateral renal cortical scarring is noted. There is mild right extrarenal pelvis, no hydronephrosis. No nephrolithiasis. The appearance is similar to the previous study. The small and large bowel loops are nondilated and unremarkable. The urinary bladder is massively distended. No adnexal masses are seen. There is no free fluid. Sigmoid diverticulosis without acute diverticulitis. Interrogation of bone windows demonstrates postoperative changes at L3-4 and 5 level. Scoliosis, spondylotic changes and multilevel disc degenerative changes are seen. Impression: 1. Small bilateral pleural effusions. 2. No acute intra-abdominal or pelvic process seen. 3. Bilateral renal cortical scarring with a distended urinary bladder. PQRS Compliance Statement: One or more of the following individualized dose reduction techniques were utilized for this examination: 1. Automated exposure control 2. Adjustment of the mA and/or kV according to patient size 3. Use of iterative reconstruction technique
[2016-08-31] VITALS (8 sets, daily range): BP systolic 129–169; BP diastolic 69–102
[2016-08-31] MEDS: METOPROLOL TARTRATE 5 MG/5 ML VIAL. IVP SCH ×4 (00:07→18:40)
[2016-08-31] MEDS: HYDROMORPHONE 2 MG/ML VIAL. IV PRN ×5 (02:37→20:19)
[2016-08-31] MEDS: IV NORMAL SALINE 1000ML BAG 1,000 ML IV SCH ×3 (02:39→20:20)
[2016-08-31 06:41] LABS: CALCIUM 8.9 mg/dL (8.5-10.1); CREATININE 1.8 mg/dL (0.6-1.0); GFR 28.8; POTASSIUM 4.7 mmol/L (3.5-5.1)
[2016-08-31] MEDS: VANCOMYCIN 125 MG/2.5 ML ORAL SOLUTION. PO SCH ×4 (07:40→20:19)
[2016-08-31] MEDS: METOCLOPRAMIDE HCL 10 MG/2 ML VIAL. IV SCH ×4 (07:40→20:18)
[2016-08-31] MEDS: PANTOPRAZOLE IV PUSH 40 MG VIAL. IVP SCH (07:40)
[2016-08-31] MEDS: ESCITALOPRAM 10 MG TABLET. PO SCH (07:42)
[2016-08-31] MEDS: LACTOBACILLUS ACIDOPH & BULGAR 1 TABLET. PO SCH ×3 (07:42→20:18)
[2016-08-31] MEDS: hydrALAZINE 20 MG/ML VIAL. IVP PRN (07:43)
--- NOTE | 2016-08-31 09:52 | PDOC ---
PROGRESS NOTES Chief Complaint Chief Complaint Diarrhea Dehydration ASSESSMENT AND PLAN: 1. Diarrhea: recent dx of C.diff, on PO vanco , continue to have diarrhea, C diff positive. 2. Nausea and vomiting: on iv Zofran and IV regaln, GI following. advance diet. 3. GILES: vasomotor. improving. cont IVF 4. Hypokalemia: better now 5. Acute abdominal pain:increase Dilaudid to 2 mg, add CT abdomen, not acute abdominal process. 6. Narcotic dependence: limit narcotics. 7. EtOH dependence: states she has been "dry" since Jul. 8. CKD: baseline creat about 1.5 9. HTN: stable. History of Present Illness History of Present Illness vomiting better no fever no chills. Vitals Vitals Vital Signs Date Time Temp Pulse Resp B/P Pulse Ox O2 Delivery O2 Flow Rate FiO2 08/31/16 08:47 129/69 08/31/16 08:00 Room Air 08/31/16 07:43 98 08/31/16 07:43 86 08/31/16 07:00 98.1 14 98.1 Physical Exam General: Alert, Oriented X3, Cooperative Heart: Regular rate, Normal S1, Normal S2 Lungs: Clear Abdomen: Normal bowel sounds, No tenderness Extremities: No edema Skin: No significant lesion Labs LABS Laboratory Tests Test 08/31/16 05:45 Sodium Level 143mmol/L (136-145) Potassium Level 4.7mmol/L (3.5-5.1) Chloride Level 110mmol/L (98-107) Carbon Dioxide Level 24mmol/L (21-32) Anion Gap 9 (6-14) Blood Urea Nitrogen 11mg/dL (7-20) Creatinine 1.8mg/dL (0.6-1.0) Estimated GFR (Cockcroft-Gault) 28.8 Glucose Level 88mg/dL (70-99) Calcium Level 8.9mg/dL (8.5-10.1) Assessment and Plan Assessmemt and Plan Problems Medical Problems: (1) GILES (acute kidney injury) Status: Acute (2) C. difficile diarrhea Status: Acute Problems: Comment Review of Relevant I have reviewed the following items blade (where applicable) has been applied. Labs Laboratory Tests Test 08/30/16 03:10 08/31/16 05:45 Sodium Level 139mmol/L (136-145) 143mmol/L (136-145) Potassium Level 4.8mmol/L (3.5-5.1) 4.7mmol/L (3.5-5.1) Chloride Level 110mmol/L (98-107) 110mmol/L (98-107) Carbon Dioxide Level 22mmol/L (21-32) 24mmol/L (21-32) Anion Gap 7 (6-14) 9 (6-14) Blood Urea Nitrogen 15mg/dL (7-20) 11mg/dL (7-20) Creatinine 1.8mg/dL (0.6-1.0) 1.8mg/dL (0.6-1.0) Estimated GFR (Cockcroft-Gault) 28.8 28.8 Glucose Level 90mg/dL (70-99) 88mg/dL (70-99) Calcium Level 8.7mg/dL (8.5-10.1) 8.9mg/dL (8.5-10.1) Lipase 320U/L (73-393) Laboratory Tests Test 08/31/16 05:45 Sodium Level 143mmol/L (136-145) Potassium Level 4.7mmol/L (3.5-5.1) Chloride Level 110mmol/L (98-107) Carbon Dioxide Level 24mmol/L (21-32) Anion Gap 9 (6-14) Blood Urea Nitrogen 11mg/dL (7-20) Creatinine 1.8mg/dL (0.6-1.0) Estimated GFR (Cockcroft-Gault) 28.8 Glucose Level 88mg/dL (70-99) Calcium Level 8.9mg/dL (8.5-10.1) Medications Current Medications Sodium Chloride (Iv Sodium Chloride 0.9% 1000ml Bag) 1,000 ml @ 1,000 mls/hr Q1H IV Last administered on 08/25/16 15:32; Start 08/25/16 at 15:14; Stop at 17:10; Status DC Fentanyl Citrate (Fentanyl 2ml Vial) 50 mcg 1X ONCE IV Last administered on 15:33; Start 08/25/16 at 15:15; Stop 08/25/16 at 17:10; Status DC Ondansetron HCl (Zofran) 4 mg 1X ONCE IV Last administered on 08/25/16 15:33 ; Start 08/25/16 at 15:15; Stop 08/25/16 at 17:10; Status DC Famotidine (Pepcid) 20 mg 1X ONCE IVP Last administered on 08/25/16 15:33; Start 08/25/16 at 15:15; Stop 08/25/16 at 17:10; Status DC Vancomycin HCl 125 mg 1X ONCE PO Last administered on 08/25/16 17:20; Start 08/25/16 at 17:15; Stop 08/25/16 at 17:16; Status DC Ondansetron HCl (Zofran) 4 mg PRN Q8HRS PRN IV NAUSEA/VOMITING Last administered on 08/26/16 11:37; Start 08/25/16 at 17:30; Stop 08/26/16 at 17:29 ; Status DC Fentanyl Citrate 25 mcg 25 mcg PRN Q1HR PRN IV PAIN Last administered on 20:07; Start 08/25/16 at 17:30; Stop 08/26/16 at 17:29; Status DC Sodium Chloride (Iv Sodium Chloride 0.9% 1000ml Bag) 1,000 ml @ 125 mls/hr Q8H IV Last administered on 08/26/16 09:28; Start 08/25/16 at 17:28; Stop at 17:27; Status DC Acetaminophen (Tylenol) 650 mg PRN Q4HRS PRN PO FEVER; Start 08/25/16 at 17:30 ; Stop 08/26/16 at 17:29; Status DC Vancomycin HCl 125 mg [id number] PO Last administered on 08/31/16 07:40; Start at 23:00 Potassium Chloride (Klor-Con) 40 meq 1X ONCE PO Last administered on 18:51; Start 08/25/16 at 18:00; Stop 08/25/16 at 18:01; Status DC Acetaminophen (Tylenol) 650 mg PRN Q6HRS PRN PO PAIN MILD; Start 08/25/16 at 20 :15 Lactobacillus Acidophilus (Bacid, Kathryn-Bid) 1 tab TID PO Last administered on 07:42; Start 08/25/16 at 21:00 Alprazolam (Xanax) 0.5 mg PRN BID PRN PO ANXIETY / AGITATION Last administered on 08/30/16 21:16; Start 08/25/16 at 20:15 Ciprofloxacin (Cipro) 250 mg BID PO ; Start 08/25/16 at 21:00; Status UNV Escitalopram Oxalate (Lexapro) 10 mg DAILY PO Last administered on 08/31/16 07: 42; Start 08/26/16 at 09:00 Lisinopril (Prinivil) 10 mg DAILY PO Last administered on 08/26/16 08:23; Start 08/26/16 at 09:00; Stop 08/26/16 at 18:45; Status DC Oxycodone HCl (Roxicodone) 5 mg PRN Q8HRS PRN PO severe pain Last administered on 08/30/16 22:59; Start 08/25/16 at 20:15 Pantoprazole Sodium (Protonix) 40 mg DAILYAC PO Last administered on 08/28/16 08:51; Start 08/26/16 at 07:30; Stop 08/29/16 at 09:13; Status DC Non-Formulary Medication 125 mg QID PO ; Start 08/25/16 at 21:00; Status UNV Hydromorphone HCl 1 mg 1 mg PRN Q4HRS PRN IV PAIN Last administered on 08:10; Start 08/25/16 at 20:15; Stop 08/30/16 at 11:11; Status DC Sodium Chloride 1,000 ml @ 1,000 mls/hr 1X ONCE IV Last administered on 22:15; Start 08/26/16 at 22:15; Stop 08/26/16 at 23:14; Status DC Sodium Chloride 1,000 ml @ 1,000 mls/hr 1X ONCE IV Last administered on 00:30; Start 08/27/16 at 00:30; Stop 08/27/16 at 01:29; Status DC Sodium Chloride (Iv Sodium Chloride 0.9% 1000ml Bag) 1,000 ml @ 125 mls/hr Q8H IV Last administered on 08/31/16 02:39; Start 08/27/16 at 02:00 Ondansetron HCl (Zofran) 4 mg PRN Q8HRS PRN IV NAUSEA/VOMITING Last administered on 08/30/16 11:45; Start 08/27/16 at 12:15 Metoclopramide HCl 5 mg 5 mg QIDACHS PO Last administered on 08/28/16 20:17; Start 08/27/16 at 16:30; Stop 08/29/16 at 09:13; Status DC Magnesium Sulfate/ Dextrose (Magnesium Sulfate PREMIX 2GM) 50 ml @ 25 mls/hr 1X ONCE IV Last administered on 08/28/16 13:52; Start 08/28/16 at 11:30; Stop 08/28/16 at 13:29; Status DC Hydralazine HCl 20 mg 20 mg PRN Q4HRS PRN IVP for SBP > 170 Last administered on 08/31/16 07:43; Start 08/28/16 at 15:00 Sodium Chloride (Iv Sodium Chloride 0.9% 500ml Bag) 500 ml @ 500 mls/hr 1X ONCE IV Last administered on 08/28/16 19:15; Start 08/28/16 at 19:15; Stop at 20:14; Status DC Metoclopramide HCl (Reglan) 5 mg QIDACHS IV Last administered on 08/31/16 07:40 ; Start 08/29/16 at 11:30 Pantoprazole Sodium (Protonix Vial) 40 mg DAILYAC IVP Last administered on 07:40; Start 08/29/16 at 10:00 Metoprolol Tartrate (Lopressor) 25 mg BID PO Last administered on 08/30/16 11: 03; Start 08/30/16 at 11:00; Stop 08/30/16 at 11:11; Status DC Hydromorphone HCl (Dilaudid) 2 mg PRN Q4HRS PRN IV PAIN Last administered on 07:43; Start 08/30/16 at 11:15 Metoprolol Tartrate (Lopressor) 5 mg Q6HRS IVP Last administered on 08/31/16 05 :17; Start 08/30/16 at 12:00 Active Scripts Active [Vancomycin Hcl] 125 MG/2.5 ML Solution 125 Mg PO QID 14 Days Cipro (Ciprofloxacin Hcl) 250 Mg Tablet 250 Mg PO BID Oxycodone Hcl 5 Mg Tablet 5 Mg PO Q8H PRN Nexium 24Hr (Esomeprazole Magnesium) 20 Mg Capsule.dr 20 Mg PO DAILY Kathryn-Bid Caplet (Acidoph/L.bulg/Bif.b/S.thermop) 1 Each Tablet 1 Tab PO TID Mapap (Acetaminophen) 325 Mg Tablet 650 Mg PO PRN Q6HRS PRN Escitalopram Oxalate 10 Mg Tablet 1 Tab PO DAILY Reported Xanax (Alprazolam) 0.5 Mg Tablet 1 Tab PO BID PRN Lisinopril 10 Mg Tablet 1 Tab PO DAILY Vitals/I & O Vital Sign - Last 24 Hours 08/30/16 08/30/16 08/30/16 08/30/16 10:55 11:03 11:45 12:59 Temp 98.6 97.7 98.6 97.7 Pulse 121 121 121 95 Resp 20 18 B/P 195/119 175/99 197/121 140/91 Pulse Ox 98 95 O2 Delivery Room Air Room Air 08/30/16 08/30/16 08/30/16 08/30/16 14:40 16:51 17:17 19:10 Temp 97.9 98.6 98.3 97.9 98.6 98.3 Pulse 91 102 102 83 Resp 18 18 20 B/P 160/94 227/141 227/141 126/83 Pulse Ox 98 96 95 O2 Delivery Room Air Room Air 08/30/16 08/30/16 08/30/16 08/30/16 20:15 21:17 21:50 22:59 Resp 18 18 18 Pulse Ox 95 95 95 O2 Delivery Room Air Room Air Room Air Room Air 08/30/16 08/30/16 08/31/16 08/31/16 23:04 23:59 00:07 02:37 Temp 98.3 98.3 Pulse 83 83 Resp 20 18 18 B/P 137/94 137/94 Pulse Ox 98 98 98 O2 Delivery Room Air Room Air Room Air 08/31/16 08/31/16 08/31/16 08/31/16 03:00 05:17 07:00 07:43 Temp 98.6 98.1 98.6 98.1 Pulse 87 85 86 86 Resp 20 14 B/P 145/92 131/76 165/102 165/102 Pulse Ox 98 98 O2 Delivery Room Air Room Air 08/31/16 08/31/16 08/31/16 07:43 08:00 08:47 B/P 129/69 Pulse Ox 98 O2 Delivery Room Air Room Air Intake and Output 08/30/16 08/30/16 08/31/16 15:00 23:00 07:00 Intake Total 300 ml 880 ml Output Total 1375 ml 1500 ml Balance -1375 ml 300 ml -620 ml MARY PARISI MD Aug 31, 2016 09:52
[2016-08-31] MEDS: ALPRAZOLAM 0.5 MG TABLET PO PRN (10:55)
--- NOTE | 2016-08-31 12:50 | PDOC ---
Renal-Progress Notes Subjective Notes Notes NAUSEA AND VOMITING History of Present Illness Hx of present illness NO CHANGE Vitals Vitals Vital Signs Date Time Temp Pulse Resp B/P Pulse Ox O2 Delivery O2 Flow Rate FiO2 08/31/16 11:51 16 96 Room Air 08/31/16 11:25 102 130/77 08/31/16 11:00 99.3 99.3 Weight Weight [ ] I.O. Intake and Output Intake and Output 08/31/16 07:00 Intake Total 1180 ml Output Total 2875 ml Balance -1695 ml Intake Oral 1180 ml Output Urine Total 2875 ml # Voids 2 Labs Labs Laboratory Tests Test 08/31/16 05:45 Sodium Level 143mmol/L (136-145) Potassium Level 4.7mmol/L (3.5-5.1) Chloride Level 110mmol/L (98-107) Carbon Dioxide Level 24mmol/L (21-32) Anion Gap 9 (6-14) Blood Urea Nitrogen 11mg/dL (7-20) Creatinine 1.8mg/dL (0.6-1.0) Estimated GFR (Cockcroft-Gault) 28.8 Glucose Level 88mg/dL (70-99) Calcium Level 8.9mg/dL (8.5-10.1) Review of Systems Constitutional: yes: alert, oriented, weakness Ears/Nose/Throat: Yes: no symptom reported Eyes: Yes: no symptom reported Cardiovascular: Yes no symptom reported Gastrointestional: Yes: diarrhea Genitourinary: Yes: no symptom reported Musculoskeletal: Yes: no symptom reported Skin: Yes no symptom reported Physical Exam General Appearance: no apparent distress Skin: warm Respiratory: bilateral CTA Heart: S1S2, RRR Abdomen: soft, bowel sounds present Genitourinary: bladder flat Extremities: no edema Neurology: alert, oriented, follow commands Assessment Assessment IMP GILES-BETTER WITH CR DOWN TO 1.8 NOW CKD STAGE 3 WITH CR OF 1.8 AT BASELINE DEHYDRATION C DIF-DIARRHEA LOW K CORRECTED PLAN IVF'S WILL FOLLOW LABS IN AM DESIREE HERNANDEZ MD Aug 31, 2016 12:49
--- NOTE | 2016-08-31 13:44 | PDOC ---
Subjective: Subjective: No n/v. Ate some cheerios for breakfast, going to try mashed potatoes for lunch. Less abd pain. No stools today. Has a "terrible" headache - had some double-vision earlier. Concerned about her BP. Would like to advance diet for more options although not feeling too hungry. Objective: Objective: Per RN - 1300cc urine out yesterday. No n/v today. Asks about advancing diet. Vital Signs: Vital Signs Date Time Temp Pulse Resp B/P Pulse Ox O2 Delivery O2 Flow Rate FiO2 08/31/16 13:28 16 95 Room Air 08/31/16 11:25 102 130/77 08/31/16 11:00 99.3 99.3 Labs: Laboratory Tests Test 08/31/16 05:45 Sodium Level 143mmol/L Potassium Level 4.7mmol/L Chloride Level 110mmol/L Carbon Dioxide Level 24mmol/L Anion Gap 9 Blood Urea Nitrogen 11mg/dL Creatinine 1.8mg/dL Estimated GFR (Cockcroft-Gault) 28.8 Glucose Level 88mg/dL Calcium Level 8.9mg/dL Note normal lipase (320) yesterday. Imaging: CT A/P w/o contrast 08/30/16 Impression: 1. Small bilateral pleural effusions. 2. No acute intra-abdominal or pelvic process seen. 3. Bilateral renal cortical scarring with a distended urinary bladder. PE: GEN: looks better LUNGS: clear anteriorly HEART: tachycardic ABD: less tender NEURO/PSYCH: A & O 3 A/P: Recurrent n/v, abd pain, diarrhea - IMPROVED -h/o reflux, gastroparesis, alcoholism -currently on Reglan and PPI to IV yesterday -on oral vanco for C Diff (again + this admission) Urinary retention -now w/ Drummond -- GI symptoms improved w/ placement of Drummond. Will discuss diet w/ Dr. Orosco. ANNE-MARIE GARCIA Aug 31, 2016 13:44
[2016-08-31] MEDS: OXYCODONE IR 5 MG TABLET. PO PRN (16:52)
[2016-09-01] MEDS: HYDROMORPHONE 2 MG/ML VIAL. IV PRN ×6 (00:13→21:20)
[2016-09-01] MEDS: METOPROLOL TARTRATE 5 MG/5 ML VIAL. IVP SCH ×5 (00:14→23:57)
[2016-09-01 03:00] VITALS: BP 166/95
[2016-09-01] MEDS: IV NORMAL SALINE 1000ML BAG 1,000 ML IV SCH ×4 (04:24→23:47)
[2016-09-01 06:08] LABS: CALCIUM 8.4 mg/dL (8.5-10.1); CREATININE 1.6 mg/dL (0.6-1.0); POTASSIUM 4.6 mmol/L (3.5-5.1)
[2016-09-01] MEDS: OXYCODONE IR 5 MG TABLET. PO PRN ×3 (06:31→23:57)
[2016-09-01] MEDS: ALPRAZOLAM 0.5 MG TABLET PO PRN ×2 (06:31→21:19)
[2016-09-01 07:00] VITALS: BP 159/100
[2016-09-01] MEDS: METOCLOPRAMIDE HCL 10 MG/2 ML VIAL. IV SCH (08:35)
[2016-09-01] MEDS: PANTOPRAZOLE IV PUSH 40 MG VIAL. IVP SCH (08:37)
[2016-09-01] MEDS: VANCOMYCIN 125 MG/2.5 ML ORAL SOLUTION. PO SCH ×4 (08:46→21:19)
[2016-09-01] MEDS: ESCITALOPRAM 10 MG TABLET. PO SCH (08:47)
[2016-09-01] MEDS: LACTOBACILLUS ACIDOPH & BULGAR 1 TABLET. PO SCH ×3 (08:47→21:19)
[2016-09-01] MEDS: ACETAMINOPHEN 325 MG TABLET. PO PRN (09:31)
[2016-09-01 11:14] VITALS: BP 158/95
--- NOTE | 2016-09-01 11:21 | PDOC ---
G I PROGRESS NOTE Subjective Has headache. No more N or V. Diarrhea better. Physical Exam Lungs clear. RRR Abdomen soft, not distended. Review of Relevant I have reviewed the following items blade (where applicable) has been applied. Labs Laboratory Tests Test 08/31/16 05:45 09/01/16 05:40 Sodium Level 143mmol/L (136-145) 138mmol/L (136-145) Potassium Level 4.7mmol/L (3.5-5.1) 4.6mmol/L (3.5-5.1) Chloride Level 110mmol/L (98-107) 108mmol/L (98-107) Carbon Dioxide Level 24mmol/L (21-32) 22mmol/L (21-32) Anion Gap 9 (6-14) 8 (6-14) Blood Urea Nitrogen 11mg/dL (7-20) 10mg/dL (7-20) Creatinine 1.8mg/dL (0.6-1.0) 1.6mg/dL (0.6-1.0) Estimated GFR (Cockcroft-Gault) 28.8 33.0 Glucose Level 88mg/dL (70-99) 99mg/dL (70-99) Calcium Level 8.9mg/dL (8.5-10.1) 8.4mg/dL (8.5-10.1) Laboratory Tests Test 09/01/16 05:40 Sodium Level 138mmol/L (136-145) Potassium Level 4.6mmol/L (3.5-5.1) Chloride Level 108mmol/L (98-107) Carbon Dioxide Level 22mmol/L (21-32) Anion Gap 8 (6-14) Blood Urea Nitrogen 10mg/dL (7-20) Creatinine 1.6mg/dL (0.6-1.0) Estimated GFR (Cockcroft-Gault) 33.0 Glucose Level 99mg/dL (70-99) Calcium Level 8.4mg/dL (8.5-10.1) Medications Current Medications Sodium Chloride (Iv Sodium Chloride 0.9% 1000ml Bag) 1,000 ml @ 1,000 mls/hr Q1H IV Last administered on 08/25/16t 15:32; Start 08/25/16 at 15:14; Stop at 17:10; Status DC Fentanyl Citrate (Fentanyl 2ml Vial) 50 mcg 1X ONCE IV Last administered on 15:33; Start 08/25/16 at 15:15; Stop 08/25/16 at 17:10; Status DC Ondansetron HCl (Zofran) 4 mg 1X ONCE IV Last administered on 08/25/16 15:33 ; Start 08/25/16 at 15:15; Stop 08/25/16 at 17:10; Status DC Famotidine (Pepcid) 20 mg 1X ONCE IVP Last administered on 08/25/16 15:33; Start 08/25/16 at 15:15; Stop 08/25/16 at 17:10; Status DC Vancomycin HCl 125 mg 1X ONCE PO Last administered on 08/25/16 17:20; Start 08/25/16 at 17:15; Stop 08/25/16 at 17:16; Status DC Ondansetron HCl (Zofran) 4 mg PRN Q8HRS PRN IV NAUSEA/VOMITING Last administered on 08/26/16 11:37; Start 08/25/16 at 17:30; Stop 08/26/16 at 17:29 ; Status DC Fentanyl Citrate 25 mcg 25 mcg PRN Q1HR PRN IV PAIN Last administered on 20:07; Start 08/25/16 at 17:30; Stop 08/26/16 at 17:29; Status DC Sodium Chloride (Iv Sodium Chloride 0.9% 1000ml Bag) 1,000 ml @ 125 mls/hr Q8H IV Last administered on 08/26/16 09:28; Start 08/25/16 at 17:28; Stop at 17:27; Status DC Acetaminophen (Tylenol) 650 mg PRN Q4HRS PRN PO FEVER; Start 08/25/16 at 17:30 ; Stop 08/26/16 at 17:29; Status DC Vancomycin HCl 125 mg [id number] PO Last administered on 09/01/16 08:46; Start at 23:00 Potassium Chloride (Klor-Con) 40 meq 1X ONCE PO Last administered on 18:51; Start 08/25/16 at 18:00; Stop 08/25/16 at 18:01; Status DC Acetaminophen (Tylenol) 650 mg PRN Q6HRS PRN PO PAIN MILD Last administered on 09/01/16 09:31; Start 08/25/16 at 20:15 Lactobacillus Acidophilus (Bacid, Kathryn-Bid) 1 tab TID PO Last administered on 08:47; Start 08/25/16 at 21:00 Alprazolam (Xanax) 0.5 mg PRN BID PRN PO ANXIETY / AGITATION Last administered on 09/01/16 06:31; Start 08/25/16 at 20:15 Ciprofloxacin (Cipro) 250 mg BID PO ; Start 08/25/16 at 21:00; Status UNV Escitalopram Oxalate (Lexapro) 10 mg DAILY PO Last administered on 09/01/16 08: 47; Start 08/26/16 at 09:00 Lisinopril (Prinivil) 10 mg DAILY PO Last administered on 08/26/16 08:23; Start 08/26/16 at 09:00; Stop 08/26/16 at 18:45; Status DC Oxycodone HCl (Roxicodone) 5 mg PRN Q8HRS PRN PO severe pain Last administered on 09/01/16 06:31; Start 08/25/16 at 20:15 Pantoprazole Sodium (Protonix) 40 mg DAILYAC PO Last administered on 08/28/16 08:51; Start 08/26/16 at 07:30; Stop 08/29/16 at 09:13; Status DC Non-Formulary Medication 125 mg QID PO ; Start 08/25/16 at 21:00; Status UNV Hydromorphone HCl 1 mg 1 mg PRN Q4HRS PRN IV PAIN Last administered on 08:10; Start 08/25/16 at 20:15; Stop 08/30/16 at 11:11; Status DC Sodium Chloride 1,000 ml @ 1,000 mls/hr 1X ONCE IV Last administered on 22:15; Start 08/26/16 at 22:15; Stop 08/26/16 at 23:14; Status DC Sodium Chloride 1,000 ml @ 1,000 mls/hr 1X ONCE IV Last administered on 00:30; Start 08/27/16 at 00:30; Stop 08/27/16 at 01:29; Status DC Sodium Chloride (Iv Sodium Chloride 0.9% 1000ml Bag) 1,000 ml @ 125 mls/hr Q8H IV Last administered on 09/01/16 04:24; Start 08/27/16 at 02:00 Ondansetron HCl (Zofran) 4 mg PRN Q8HRS PRN IV NAUSEA/VOMITING Last administered on 08/30/16 11:45; Start 08/27/16 at 12:15 Metoclopramide HCl 5 mg 5 mg QIDACHS PO Last administered on 08/28/16 20:17; Start 08/27/16 at 16:30; Stop 08/29/16 at 09:13; Status DC Magnesium Sulfate/ Dextrose (Magnesium Sulfate PREMIX 2GM) 50 ml @ 25 mls/hr 1X ONCE IV Last administered on 08/28/16 13:52; Start 08/28/16 at 11:30; Stop 08/28/16 at 13:29; Status DC Hydralazine HCl 20 mg 20 mg PRN Q4HRS PRN IVP for SBP > 170 Last administered on 08/31/16 07:43; Start 08/28/16 at 15:00 Sodium Chloride (Iv Sodium Chloride 0.9% 500ml Bag) 500 ml @ 500 mls/hr 1X ONCE IV Last administered on 08/28/16 19:15; Start 08/28/16 at 19:15; Stop at 20:14; Status DC Metoclopramide HCl (Reglan) 5 mg QIDACHS IV Last administered on 09/01/16 08:35 ; Start 08/29/16 at 11:30 Pantoprazole Sodium (Protonix Vial) 40 mg DAILYAC IVP Last administered on 08:37; Start 08/29/16 at 10:00 Metoprolol Tartrate (Lopressor) 25 mg BID PO Last administered on 08/30/16 11: 03; Start 08/30/16 at 11:00; Stop 08/30/16 at 11:11; Status DC Hydromorphone HCl (Dilaudid) 2 mg PRN Q4HRS PRN IV PAIN Last administered on 11:51; Start 08/30/16 at 11:15; Stop 08/31/16 at 14:05; Status DC Metoprolol Tartrate (Lopressor) 5 mg Q6HRS IVP Last administered on 09/01/16 06 :25; Start 08/30/16 at 12:00 Hydromorphone HCl (Dilaudid) 1 mg PRN Q4HRS PRN IV PAIN Last administered on 08:32; Start 08/31/16 at 14:15 Active Scripts Active [Vancomycin Hcl] 125 MG/2.5 ML Solution 125 Mg PO QID 14 Days Cipro (Ciprofloxacin Hcl) 250 Mg Tablet 250 Mg PO BID Oxycodone Hcl 5 Mg Tablet 5 Mg PO Q8H PRN Nexium 24Hr (Esomeprazole Magnesium) 20 Mg Capsule.dr 20 Mg PO DAILY Kathryn-Bid Caplet (Acidoph/L.bulg/Bif.b/S.thermop) 1 Each Tablet 1 Tab PO TID Mapap (Acetaminophen) 325 Mg Tablet 650 Mg PO PRN Q6HRS PRN Escitalopram Oxalate 10 Mg Tablet 1 Tab PO DAILY Reported Xanax (Alprazolam) 0.5 Mg Tablet 1 Tab PO BID PRN Lisinopril 10 Mg Tablet 1 Tab PO DAILY Vitals/I & O Vital Sign - Last 24 Hours 08/31/16 08/31/16 08/31/16 08/31/16 11:25 11:51 13:28 14:46 Temp 98.4 98.4 Pulse 102 94 Resp 16 16 18 B/P 130/77 157/91 Pulse Ox 96 95 98 O2 Delivery Room Air Room Air Room Air 08/31/16 08/31/16 08/31/16 08/31/16 18:02 18:40 19:00 20:19 Temp 99.1 99.1 Pulse 88 88 85 Resp 16 18 20 B/P 155/91 155/91 157/88 Pulse Ox 98 99 O2 Delivery Room Air Room Air Room Air 08/31/16 08/31/16 09/01/16 09/01/16 20:19 23:00 00:13 00:14 Temp 98.8 98.8 Pulse 82 82 Resp 18 20 B/P 169/99 169/99 Pulse Ox 95 O2 Delivery Room Air Room Air Room Air 09/01/16 09/01/16 09/01/16 09/01/16 03:00 04:24 06:25 06:31 Temp 98.1 98.1 Pulse 77 76 Resp 18 20 20 B/P 166/95 148/86 Pulse Ox 97 O2 Delivery Room Air Room Air Room Air 09/01/16 09/01/16 09/01/16 09/01/16 07:00 07:31 08:00 08:32 Temp 98.4 98.4 Pulse 82 Resp 19 20 20 B/P 159/100 Pulse Ox 97 97 97 O2 Delivery Room Air Room Air Room Air Room Air 09/01/16 09/01/16 09:02 11:14 Temp 99.1 99.1 Pulse 77 Resp 20 20 B/P 158/95 Pulse Ox 97 96 O2 Delivery Room Air Room Air Intake and Output 08/31/16 08/31/16 09/01/16 15:00 23:00 07:00 Intake Total 375 ml 250 ml 1173 ml Output Total 550 ml 300 ml Balance -175 ml -50 ml 1173 ml Problem List Problems Medical Problems: (1) GILES (acute kidney injury) Status: Acute (2) C. difficile diarrhea Status: Acute Assessment Seems to be responding to treatment. Plan of Care Note Back to po prokinetic and PPI. Probably needs re-instruction re: self-cathing at home; reinforced she needs to do this on scheduled basis. PREET AMEZQUITA MD Sep 01, 2016 11:21
[2016-09-01] MEDS: METOCLOPRAMIDE HCL 10 MG/10 ML SOLUTION. PO SCH ×3 (12:32→21:19)
--- NOTE | 2016-09-01 12:41 | PDOC ---
PROGRESS NOTES Chief Complaint Chief Complaint - Diarrhea - Dehydration - CKD - ETOH dependence - Hypokalemia - Acute abdominal pain - HTN - Nausea/Vomiting History of Present Illness History of Present Illness Patient was lying in bed, complaining headache, reported improved vomiting, nausea and diarrhea, plan of care discussed. Vitals Vitals Vital Signs Date Time Temp Pulse Resp B/P Pulse Ox O2 Delivery O2 Flow Rate FiO2 09/01/16 11:14 99.1 77 20 158/95 96 Room Air 99.1 Physical Exam General: Alert, Oriented X3, Cooperative Heart: Regular rate, Normal S1, Normal S2 Lungs: Clear Abdomen: Normal bowel sounds, Soft, No tenderness Extremities: No edema Skin: No significant lesion Labs LABS Laboratory Tests Test 09/01/16 05:40 Sodium Level 138mmol/L (136-145) Potassium Level 4.6mmol/L (3.5-5.1) Chloride Level 108mmol/L (98-107) Carbon Dioxide Level 22mmol/L (21-32) Anion Gap 8 (6-14) Blood Urea Nitrogen 10mg/dL (7-20) Creatinine 1.6mg/dL (0.6-1.0) Estimated GFR (Cockcroft-Gault) 33.0 Glucose Level 99mg/dL (70-99) Calcium Level 8.4mg/dL (8.5-10.1) Review of Systems Review of Systems Improved nausea, vomiting, and diarrhea, abdomen soft and nontender, no SOB, no CP, awake, alert and oriented. Assessment and Plan Assessmemt and Plan ASSESSMENT: - Diarrhea - Dehydration - CKD - ETOH dependence - Hypokalemia - Acute abdominal pain - HTN - Nausea/Vomiting PLAN: - Continue care per floor protocol - continue Vanco and Cipro PO - Recheck labs in AM - Continue prn pain meds - Probable discharge if subspecialities ok to it - appreciate subspecialities inputs and recommendations Problems Medical Problems: (1) GILES (acute kidney injury) Status: Acute (2) C. difficile diarrhea Status: Acute Problems: Comment Review of Relevant I have reviewed the following items blade (where applicable) has been applied. Labs Laboratory Tests Test 08/31/16 05:45 09/01/16 05:40 Sodium Level 143mmol/L (136-145) 138mmol/L (136-145) Potassium Level 4.7mmol/L (3.5-5.1) 4.6mmol/L (3.5-5.1) Chloride Level 110mmol/L (98-107) 108mmol/L (98-107) Carbon Dioxide Level 24mmol/L (21-32) 22mmol/L (21-32) Anion Gap 9 (6-14) 8 (6-14) Blood Urea Nitrogen 11mg/dL (7-20) 10mg/dL (7-20) Creatinine 1.8mg/dL (0.6-1.0) 1.6mg/dL (0.6-1.0) Estimated GFR (Cockcroft-Gault) 28.8 33.0 Glucose Level 88mg/dL (70-99) 99mg/dL (70-99) Calcium Level 8.9mg/dL (8.5-10.1) 8.4mg/dL (8.5-10.1) Laboratory Tests Test 09/01/16 05:40 Sodium Level 138mmol/L (136-145) Potassium Level 4.6mmol/L (3.5-5.1) Chloride Level 108mmol/L (98-107) Carbon Dioxide Level 22mmol/L (21-32) Anion Gap 8 (6-14) Blood Urea Nitrogen 10mg/dL (7-20) Creatinine 1.6mg/dL (0.6-1.0) Estimated GFR (Cockcroft-Gault) 33.0 Glucose Level 99mg/dL (70-99) Calcium Level 8.4mg/dL (8.5-10.1) Medications Current Medications Sodium Chloride (Iv Sodium Chloride 0.9% 1000ml Bag) 1,000 ml @ 1,000 mls/hr Q1H IV Last administered on 08/25/16 15:32; Start 08/25/16 at 15:14; Stop at 17:10; Status DC Fentanyl Citrate (Fentanyl 2ml Vial) 50 mcg 1X ONCE IV Last administered on 15:33; Start 08/25/16 at 15:15; Stop 08/25/16 at 17:10; Status DC Ondansetron HCl (Zofran) 4 mg 1X ONCE IV Last administered on 08/25/16 15:33 ; Start 08/25/16 at 15:15; Stop 08/25/16 at 17:10; Status DC Famotidine (Pepcid) 20 mg 1X ONCE IVP Last administered on 08/25/16 15:33; Start 08/25/16 at 15:15; Stop 08/25/16 at 17:10; Status DC Vancomycin HCl 125 mg 1X ONCE PO Last administered on 08/25/16 17:20; Start 08/25/16 at 17:15; Stop 08/25/16 at 17:16; Status DC Ondansetron HCl (Zofran) 4 mg PRN Q8HRS PRN IV NAUSEA/VOMITING Last administered on 08/26/16 11:37; Start 08/25/16 at 17:30; Stop 08/26/16 at 17:29 ; Status DC Fentanyl Citrate 25 mcg 25 mcg PRN Q1HR PRN IV PAIN Last administered on 20:07; Start 08/25/16 at 17:30; Stop 08/26/16 at 17:29; Status DC Sodium Chloride (Iv Sodium Chloride 0.9% 1000ml Bag) 1,000 ml @ 125 mls/hr Q8H IV Last administered on 08/26/16 09:28; Start 08/25/16 at 17:28; Stop at 17:27; Status DC Acetaminophen (Tylenol) 650 mg PRN Q4HRS PRN PO FEVER; Start 08/25/16 at 17:30 ; Stop 08/26/16 at 17:29; Status DC Vancomycin HCl 125 mg [id number] PO Last administered on 09/01/16 08:46; Start at 23:00 Potassium Chloride (Klor-Con) 40 meq 1X ONCE PO Last administered on 18:51; Start 08/25/16 at 18:00; Stop 08/25/16 at 18:01; Status DC Acetaminophen (Tylenol) 650 mg PRN Q6HRS PRN PO PAIN MILD Last administered on 09/01/16 09:31; Start 08/25/16 at 20:15 Lactobacillus Acidophilus (Bacid, Kathryn-Bid) 1 tab TID PO Last administered on 08:47; Start 08/25/16 at 21:00 Alprazolam (Xanax) 0.5 mg PRN BID PRN PO ANXIETY / AGITATION Last administered on 09/01/16 06:31; Start 08/25/16 at 20:15 Ciprofloxacin (Cipro) 250 mg BID PO ; Start 08/25/16 at 21:00; Status UNV Escitalopram Oxalate (Lexapro) 10 mg DAILY PO Last administered on 09/01/16 08: 47; Start 08/26/16 at 09:00 Lisinopril (Prinivil) 10 mg DAILY PO Last administered on 08/26/16 08:23; Start 08/26/16 at 09:00; Stop 08/26/16 at 18:45; Status DC Oxycodone HCl (Roxicodone) 5 mg PRN Q8HRS PRN PO severe pain Last administered on 09/01/16 06:31; Start 08/25/16 at 20:15 Pantoprazole Sodium (Protonix) 40 mg DAILYAC PO Last administered on 08/28/16 08:51; Start 08/26/16 at 07:30; Stop 08/29/16 at 09:13; Status DC Non-Formulary Medication 125 mg QID PO ; Start 08/25/16 at 21:00; Status UNV Hydromorphone HCl 1 mg 1 mg PRN Q4HRS PRN IV PAIN Last administered on 08:10; Start 08/25/16 at 20:15; Stop 08/30/16 at 11:11; Status DC Sodium Chloride 1,000 ml @ 1,000 mls/hr 1X ONCE IV Last administered on 22:15; Start 08/26/16 at 22:15; Stop 08/26/16 at 23:14; Status DC Sodium Chloride 1,000 ml @ 1,000 mls/hr 1X ONCE IV Last administered on 00:30; Start 08/27/16 at 00:30; Stop 08/27/16 at 01:29; Status DC Sodium Chloride (Iv Sodium Chloride 0.9% 1000ml Bag) 1,000 ml @ 125 mls/hr Q8H IV Last administered on 09/01/16 04:24; Start 08/27/16 at 02:00 Ondansetron HCl (Zofran) 4 mg PRN Q8HRS PRN IV NAUSEA/VOMITING Last administered on 08/30/16 11:45; Start 08/27/16 at 12:15 Metoclopramide HCl 5 mg 5 mg QIDACHS PO Last administered on 08/28/16 20:17; Start 08/27/16 at 16:30; Stop 08/29/16 at 09:13; Status DC Magnesium Sulfate/ Dextrose (Magnesium Sulfate PREMIX 2GM) 50 ml @ 25 mls/hr 1X ONCE IV Last administered on 08/28/16 13:52; Start 08/28/16 at 11:30; Stop 08/28/16 at 13:29; Status DC Hydralazine HCl 20 mg 20 mg PRN Q4HRS PRN IVP for SBP > 170 Last administered on 08/31/16 07:43; Start 08/28/16 at 15:00 Sodium Chloride (Iv Sodium Chloride 0.9% 500ml Bag) 500 ml @ 500 mls/hr 1X ONCE IV Last administered on 08/28/16 19:15; Start 08/28/16 at 19:15; Stop at 20:14; Status DC Metoclopramide HCl (Reglan) 5 mg QIDACHS IV Last administered on 09/01/16 08:35 ; Start 08/29/16 at 11:30; Stop 09/01/16 at 11:25; Status DC Pantoprazole Sodium (Protonix Vial) 40 mg DAILYAC IVP Last administered on 08:37; Start 08/29/16 at 10:00; Stop 09/01/16 at 11:25; Status DC Metoprolol Tartrate (Lopressor) 25 mg BID PO Last administered on 08/30/16 11: 03; Start 08/30/16 at 11:00; Stop 08/30/16 at 11:11; Status DC Hydromorphone HCl (Dilaudid) 2 mg PRN Q4HRS PRN IV PAIN Last administered on 11:51; Start 08/30/16 at 11:15; Stop 08/31/16 at 14:05; Status DC Metoprolol Tartrate (Lopressor) 5 mg Q6HRS IVP Last administered on 09/01/16 06 :25; Start 08/30/16 at 12:00 Hydromorphone HCl (Dilaudid) 1 mg PRN Q4HRS PRN IV PAIN Last administered on 08:32; Start 08/31/16 at 14:15 Metoclopramide HCl (Reglan) 10 mg QIDACHS PO ; Start 09/01/16 at 11:30 Pantoprazole Sodium (Protonix) 40 mg BIDAC PO ; Start 09/01/16 at 16:30 Active Scripts Active [Vancomycin Hcl] 125 MG/2.5 ML Solution 125 Mg PO QID 14 Days Cipro (Ciprofloxacin Hcl) 250 Mg Tablet 250 Mg PO BID Oxycodone Hcl 5 Mg Tablet 5 Mg PO Q8H PRN Nexium 24Hr (Esomeprazole Magnesium) 20 Mg Capsule.dr 20 Mg PO DAILY Kathryn-Bid Caplet (Acidoph/L.bulg/Bif.b/S.thermop) 1 Each Tablet 1 Tab PO TID Mapap (Acetaminophen) 325 Mg Tablet 650 Mg PO PRN Q6HRS PRN Escitalopram Oxalate 10 Mg Tablet 1 Tab PO DAILY Reported Xanax (Alprazolam) 0.5 Mg Tablet 1 Tab PO BID PRN Lisinopril 10 Mg Tablet 1 Tab PO DAILY Vitals/I & O Vital Sign - Last 24 Hours 08/31/16 08/31/16 08/31/16 08/31/16 13:28 14:46 18:02 18:40 Temp 98.4 98.4 Pulse 94 88 88 Resp 16 18 16 B/P 157/91 155/91 155/91 Pulse Ox 95 98 98 O2 Delivery Room Air Room Air Room Air 08/31/16 08/31/16 08/31/16 08/31/16 19:00 20:19 20:19 23:00 Temp 99.1 98.8 99.1 98.8 Pulse 85 82 Resp 18 20 18 B/P 157/88 169/99 Pulse Ox 99 95 O2 Delivery Room Air Room Air Room Air Room Air 09/01/16 09/01/16 09/01/16 09/01/16 00:13 00:14 03:00 04:24 Temp 98.1 98.1 Pulse 82 77 Resp 20 18 20 B/P 169/99 166/95 Pulse Ox 97 O2 Delivery Room Air Room Air Room Air 09/01/16 09/01/16 09/01/16 09/01/16 06:25 06:31 07:00 07:31 Temp 98.4 98.4 Pulse 76 82 Resp 20 19 20 B/P 148/86 159/100 Pulse Ox 97 97 O2 Delivery Room Air Room Air Room Air 09/01/16 09/01/16 09/01/16 09/01/16 08:00 08:32 09:02 11:14 Temp 99.1 99.1 Pulse 77 Resp 20 20 20 B/P 158/95 Pulse Ox 97 97 96 O2 Delivery Room Air Room Air Room Air Room Air Intake and Output 08/31/16 08/31/16 09/01/16 15:00 23:00 07:00 Intake Total 375 ml 250 ml 1173 ml Output Total 550 ml 300 ml Balance -175 ml -50 ml 1173 ml ZA MAHONEY III DO Sep 01, 2016 12:41
--- NOTE | 2016-09-01 14:07 | PDOC ---
PROGRESS NOTES Subjective Subjective SEEN IN FOLLOW UP OF CKD3 Objective Objective Vital Signs Date Time Temp Pulse Resp B/P Pulse Ox O2 Delivery O2 Flow Rate FiO2 09/01/16 12:36 20 96 Room Air 09/01/16 12:33 77 158/95 09/01/16 11:14 99.1 99.1 Intake and Output 09/01/16 07:00 Intake Total 1798 ml Output Total 850 ml Balance 948 ml Intake Oral 1375 ml IV Total 423 ml Output Urine Total 850 ml Physical Exam Abdomen: Normal bowel sounds, Soft, No tenderness, No hepatosplenomegaly, No masses Heart: Regular rate, Normal S1, Normal S2, No murmurs, Gallops Extremities: No clubbing, No cyanosis, No edema, Normal pulses, No tenderness/ swelling General: Alert, Oriented X3, Cooperative, No acute distress Lungs: Clear to auscultation, Normal air movement Psych/Mental Status: Mental status NL, Mood NL Diagnosis RENAL FAILURE: Chronic (CKD stage III), Other Assessment Assessment Problems Medical Problems: (1) GILES (acute kidney injury) Status: Acute (2) C. difficile diarrhea Status: Acute Plan Plan of Care HER GFR IS BETTER. CONT IVF Comment Review of Relevant I have reviewed the following items blade (where applicable) has been applied. Labs Laboratory Tests Test 08/31/16 05:45 09/01/16 05:40 Sodium Level 143mmol/L (136-145) 138mmol/L (136-145) Potassium Level 4.7mmol/L (3.5-5.1) 4.6mmol/L (3.5-5.1) Chloride Level 110mmol/L (98-107) 108mmol/L (98-107) Carbon Dioxide Level 24mmol/L (21-32) 22mmol/L (21-32) Anion Gap 9 (6-14) 8 (6-14) Blood Urea Nitrogen 11mg/dL (7-20) 10mg/dL (7-20) Creatinine 1.8mg/dL (0.6-1.0) 1.6mg/dL (0.6-1.0) Estimated GFR (Cockcroft-Gault) 28.8 33.0 Glucose Level 88mg/dL (70-99) 99mg/dL (70-99) Calcium Level 8.9mg/dL (8.5-10.1) 8.4mg/dL (8.5-10.1) Laboratory Tests Test 09/01/16 05:40 Sodium Level 138mmol/L (136-145) Potassium Level 4.6mmol/L (3.5-5.1) Chloride Level 108mmol/L (98-107) Carbon Dioxide Level 22mmol/L (21-32) Anion Gap 8 (6-14) Blood Urea Nitrogen 10mg/dL (7-20) Creatinine 1.6mg/dL (0.6-1.0) Estimated GFR (Cockcroft-Gault) 33.0 Glucose Level 99mg/dL (70-99) Calcium Level 8.4mg/dL (8.5-10.1) Medications Current Medications Sodium Chloride (Iv Sodium Chloride 0.9% 1000ml Bag) 1,000 ml @ 1,000 mls/hr Q1H IV Last administered on 08/25/16 15:32; Start 08/25/16 at 15:14; Stop at 17:10; Status DC Fentanyl Citrate (Fentanyl 2ml Vial) 50 mcg 1X ONCE IV Last administered on 15:33; Start 08/25/16 at 15:15; Stop 08/25/16 at 17:10; Status DC Ondansetron HCl (Zofran) 4 mg 1X ONCE IV Last administered on 08/25/16 15:33 ; Start 08/25/16 at 15:15; Stop 08/25/16 at 17:10; Status DC Famotidine (Pepcid) 20 mg 1X ONCE IVP Last administered on 08/25/16 15:33; Start 08/25/16 at 15:15; Stop 08/25/16 at 17:10; Status DC Vancomycin HCl 125 mg 1X ONCE PO Last administered on 08/25/16 17:20; Start 08/25/16 at 17:15; Stop 08/25/16 at 17:16; Status DC Ondansetron HCl (Zofran) 4 mg PRN Q8HRS PRN IV NAUSEA/VOMITING Last administered on 08/26/16 11:37; Start 08/25/16 at 17:30; Stop 08/26/16 at 17:29 ; Status DC Fentanyl Citrate 25 mcg 25 mcg PRN Q1HR PRN IV PAIN Last administered on 20:07; Start 08/25/16 at 17:30; Stop 08/26/16 at 17:29; Status DC Sodium Chloride (Iv Sodium Chloride 0.9% 1000ml Bag) 1,000 ml @ 125 mls/hr Q8H IV Last administered on 08/26/16 09:28; Start 08/25/16 at 17:28; Stop at 17:27; Status DC Acetaminophen (Tylenol) 650 mg PRN Q4HRS PRN PO FEVER; Start 08/25/16 at 17:30 ; Stop 08/26/16 at 17:29; Status DC Vancomycin HCl 125 mg [id number] PO Last administered on 09/01/16 12:35; Start at 23:00 Potassium Chloride (Klor-Con) 40 meq 1X ONCE PO Last administered on 18:51; Start 08/25/16 at 18:00; Stop 08/25/16 at 18:01; Status DC Acetaminophen (Tylenol) 650 mg PRN Q6HRS PRN PO PAIN MILD Last administered on 09/01/16 09:31; Start 08/25/16 at 20:15 Lactobacillus Acidophilus (Bacid, Kathryn-Bid) 1 tab TID PO Last administered on 08:47; Start 08/25/16 at 21:00 Alprazolam (Xanax) 0.5 mg PRN BID PRN PO ANXIETY / AGITATION Last administered on 09/01/16 06:31; Start 08/25/16 at 20:15 Ciprofloxacin (Cipro) 250 mg BID PO ; Start 08/25/16 at 21:00; Status UNV Escitalopram Oxalate (Lexapro) 10 mg DAILY PO Last administered on 09/01/16 08: 47; Start 08/26/16 at 09:00 Lisinopril (Prinivil) 10 mg DAILY PO Last administered on 08/26/16 08:23; Start 08/26/16 at 09:00; Stop 08/26/16 at 18:45; Status DC Oxycodone HCl (Roxicodone) 5 mg PRN Q8HRS PRN PO severe pain Last administered on 09/01/16 06:31; Start 08/25/16 at 20:15 Pantoprazole Sodium (Protonix) 40 mg DAILYAC PO Last administered on 08/28/16 08:51; Start 08/26/16 at 07:30; Stop 08/29/16 at 09:13; Status DC Non-Formulary Medication 125 mg QID PO ; Start 08/25/16 at 21:00; Status UNV Hydromorphone HCl 1 mg 1 mg PRN Q4HRS PRN IV PAIN Last administered on 08:10; Start 08/25/16 at 20:15; Stop 08/30/16 at 11:11; Status DC Sodium Chloride 1,000 ml @ 1,000 mls/hr 1X ONCE IV Last administered on 22:15; Start 08/26/16 at 22:15; Stop 08/26/16 at 23:14; Status DC Sodium Chloride 1,000 ml @ 1,000 mls/hr 1X ONCE IV Last administered on 00:30; Start 08/27/16 at 00:30; Stop 08/27/16 at 01:29; Status DC Sodium Chloride (Iv Sodium Chloride 0.9% 1000ml Bag) 1,000 ml @ 125 mls/hr Q8H IV Last administered on 09/01/16 12:32; Start 08/27/16 at 02:00 Ondansetron HCl (Zofran) 4 mg PRN Q8HRS PRN IV NAUSEA/VOMITING Last administered on 08/30/16 11:45; Start 08/27/16 at 12:15 Metoclopramide HCl 5 mg 5 mg QIDACHS PO Last administered on 08/28/16 20:17; Start 08/27/16 at 16:30; Stop 08/29/16 at 09:13; Status DC Magnesium Sulfate/ Dextrose (Magnesium Sulfate PREMIX 2GM) 50 ml @ 25 mls/hr 1X ONCE IV Last administered on 08/28/16 13:52; Start 08/28/16 at 11:30; Stop 08/28/16 at 13:29; Status DC Hydralazine HCl 20 mg 20 mg PRN Q4HRS PRN IVP for SBP > 170 Last administered on 08/31/16 07:43; Start 08/28/16 at 15:00 Sodium Chloride (Iv Sodium Chloride 0.9% 500ml Bag) 500 ml @ 500 mls/hr 1X ONCE IV Last administered on 08/28/16 19:15; Start 08/28/16 at 19:15; Stop at 20:14; Status DC Metoclopramide HCl (Reglan) 5 mg QIDACHS IV Last administered on 09/01/16 08:35 ; Start 08/29/16 at 11:30; Stop 09/01/16 at 11:25; Status DC Pantoprazole Sodium (Protonix Vial) 40 mg DAILYAC IVP Last administered on 08:37; Start 08/29/16 at 10:00; Stop 09/01/16 at 11:25; Status DC Metoprolol Tartrate (Lopressor) 25 mg BID PO Last administered on 08/30/16 11: 03; Start 08/30/16 at 11:00; Stop 08/30/16 at 11:11; Status DC Hydromorphone HCl (Dilaudid) 2 mg PRN Q4HRS PRN IV PAIN Last administered on 11:51; Start 08/30/16 at 11:15; Stop 08/31/16 at 14:05; Status DC Metoprolol Tartrate (Lopressor) 5 mg Q6HRS IVP Last administered on 09/01/16 12 :33; Start 08/30/16 at 12:00 Hydromorphone HCl (Dilaudid) 1 mg PRN Q4HRS PRN IV PAIN Last administered on 12:36; Start 08/31/16 at 14:15 Metoclopramide HCl (Reglan) 10 mg QIDACHS PO Last administered on 09/01/16 12: 32; Start 09/01/16 at 11:30 Pantoprazole Sodium (Protonix) 40 mg BIDAC PO ; Start 09/01/16 at 16:30 Active Scripts Active [Vancomycin Hcl] 125 MG/2.5 ML Solution 125 Mg PO QID 14 Days Cipro (Ciprofloxacin Hcl) 250 Mg Tablet 250 Mg PO BID Oxycodone Hcl 5 Mg Tablet 5 Mg PO Q8H PRN Nexium 24Hr (Esomeprazole Magnesium) 20 Mg Capsule.dr 20 Mg PO DAILY Kathryn-Bid Caplet (Acidoph/L.bulg/Bif.b/S.thermop) 1 Each Tablet 1 Tab PO TID Mapap (Acetaminophen) 325 Mg Tablet 650 Mg PO PRN Q6HRS PRN Escitalopram Oxalate 10 Mg Tablet 1 Tab PO DAILY Reported Xanax (Alprazolam) 0.5 Mg Tablet 1 Tab PO BID PRN Lisinopril 10 Mg Tablet 1 Tab PO DAILY Vitals/I & O Vital Sign - Last 24 Hours 08/31/16 08/31/16 08/31/16 08/31/16 14:46 18:02 18:40 19:00 Temp 98.4 99.1 98.4 99.1 Pulse 94 88 88 85 Resp 18 16 18 B/P 157/91 155/91 155/91 157/88 Pulse Ox 98 98 99 O2 Delivery Room Air Room Air Room Air 08/31/16 08/31/16 08/31/16 09/01/16 20:19 20:19 23:00 00:13 Temp 98.8 98.8 Pulse 82 Resp 20 18 20 B/P 169/99 Pulse Ox 95 O2 Delivery Room Air Room Air Room Air Room Air 09/01/16 09/01/16 09/01/16 09/01/16 00:14 03:00 04:24 06:25 Temp 98.1 98.1 Pulse 82 77 76 Resp 18 20 B/P 169/99 166/95 148/86 Pulse Ox 97 O2 Delivery Room Air Room Air 09/01/16 09/01/16 09/01/16 09/01/16 06:31 07:00 07:31 08:00 Temp 98.4 98.4 Pulse 82 Resp 20 19 20 B/P 159/100 Pulse Ox 97 97 O2 Delivery Room Air Room Air Room Air Room Air 09/01/16 09/01/16 09/01/16 09/01/16 08:32 09:02 11:14 12:33 Temp 99.1 99.1 Pulse 77 77 Resp 20 20 20 B/P 158/95 158/95 Pulse Ox 97 97 96 O2 Delivery Room Air Room Air Room Air 09/01/16 12:36 Resp 20 Pulse Ox 96 O2 Delivery Room Air Intake and Output 08/31/16 08/31/16 09/01/16 15:00 23:00 07:00 Intake Total 375 ml 250 ml 1173 ml Output Total 550 ml 300 ml Balance -175 ml -50 ml 1173 ml PREET HAYS MD Sep 01, 2016 14:07
[2016-09-01 14:59] VITALS: BP 150/90
[2016-09-01] MEDS: PANTOPRAZOLE 40 MG TABLET. PO SCH (16:59)
[2016-09-01 19:00] VITALS: BP 162/89
[2016-09-01 23:00] VITALS: BP 165/96
[2016-09-02] VITALS (7 sets, daily range): BP systolic 118–219; BP diastolic 83–118
[2016-09-02] MEDS: HYDROMORPHONE 2 MG/ML VIAL. IV PRN ×6 (01:40→23:48)
[2016-09-02 04:50] LABS: BASO # 0.1 x10^3/uL (0.0-0.2); BASO % 1 % (0-3); EOS % 6 % (0-3); HEMATOCRIT 25.6 % (36.0-47.0); HEMOGLOBIN 8.2 g/dL (12.0-15.5); LYMPH # 2.6 x10^3/uL (1.0-4.8); LYMPH % 33 % (24-48); MEAN CORPUSCULAR HEMOGLOBIN 30 pg (25-35); MEAN CORPUSCULAR HGB CONC 32 g/dL (31-37); MEAN CORPUSCULAR VOLUME 95 fL (79-100); MONO % 14 % (0-9); NEUT % 46 % (31-73); PLATELET COUNT 259 x10^3/uL (140-400); RED CELL DISTRIBUTION WIDTH 15.1 % (11.5-14.5); WHITE BLOOD COUNT 7.7 x10^3/uL (4.0-11.0)
[2016-09-02 05:14] LABS: CALCIUM 8.8 mg/dL (8.5-10.1); CREATININE 1.6 mg/dL (0.6-1.0); POTASSIUM 4.9 mmol/L (3.5-5.1)
[2016-09-02] MEDS: IV NORMAL SALINE 1000ML BAG 1,000 ML IV SCH ×2 (05:21→15:08)
[2016-09-02] MEDS: ACETAMINOPHEN 325 MG TABLET. PO PRN ×3 (05:21→22:42)
[2016-09-02] MEDS: METOPROLOL TARTRATE 5 MG/5 ML VIAL. IVP SCH ×4 (05:22→22:43)
[2016-09-02] MEDS: METOCLOPRAMIDE HCL 10 MG/10 ML SOLUTION. PO SCH ×4 (05:50→19:45)
[2016-09-02] MEDS: PANTOPRAZOLE 40 MG TABLET. PO SCH ×2 (05:51→17:04)
[2016-09-02] MEDS: VANCOMYCIN 125 MG/2.5 ML ORAL SOLUTION. PO SCH ×4 (08:58→19:45)
[2016-09-02] MEDS: LACTOBACILLUS ACIDOPH & BULGAR 1 TABLET. PO SCH ×3 (08:59→19:45)
[2016-09-02] MEDS: ESCITALOPRAM 10 MG TABLET. PO SCH (08:59)
[2016-09-02] MEDS: OXYCODONE IR 5 MG TABLET. PO PRN ×2 (09:00→17:05)
[2016-09-02] MEDS: ALPRAZOLAM 0.5 MG TABLET PO PRN ×2 (09:18→19:45)
[2016-09-02] MEDS: hydrALAZINE 20 MG/ML VIAL. IVP PRN ×4 (09:19→23:49)
--- NOTE | 2016-09-02 09:51 | PDOC ---
G I PROGRESS NOTE Subjective No nausea or vomiting. Having some odynodysphagia like last time. Diarrhea better. Keeping meds down. Physical Exam Lungs clear. RRR Abdomen soft, not tender nor distended. Review of Relevant I have reviewed the following items blade (where applicable) has been applied. Labs Laboratory Tests Test 09/01/16 05:40 09/02/16 04:20 Sodium Level 138mmol/L (136-145) 140mmol/L (136-145) Potassium Level 4.6mmol/L (3.5-5.1) 4.9mmol/L (3.5-5.1) Chloride Level 108mmol/L (98-107) 108mmol/L (98-107) Carbon Dioxide Level 22mmol/L (21-32) 23mmol/L (21-32) Anion Gap 8 (6-14) 9 (6-14) Blood Urea Nitrogen 10mg/dL (7-20) 12mg/dL (7-20) Creatinine 1.6mg/dL (0.6-1.0) 1.6mg/dL (0.6-1.0) Estimated GFR (Cockcroft-Gault) 33.0 33.0 Glucose Level 99mg/dL (70-99) 90mg/dL (70-99) Calcium Level 8.4mg/dL (8.5-10.1) 8.8mg/dL (8.5-10.1) White Blood Count 7.7x10^3/uL (4.0-11.0) Red Blood Count 2.70x10^6/uL (3.50-5.40) Hemoglobin 8.2g/dL (12.0-15.5) Hematocrit 25.6% (36.0-47.0) Mean Corpuscular Volume 95fL (79-100) Mean Corpuscular Hemoglobin 30pg (25-35) Mean Corpuscular Hemoglobin Concent 32g/dL (31-37) Red Cell Distribution Width 15.1% (11.5-14.5) Platelet Count 259x10^3/uL (140-400) Neutrophils (%) (Auto) 46% (31-73) Lymphocytes (%) (Auto) 33% (24-48) Monocytes (%) (Auto) 14% (0-9) Eosinophils (%) (Auto) 6% (0-3) Basophils (%) (Auto) 1% (0-3) Neutrophils # (Auto) 3.5x10^3uL (1.8-7.7) Lymphocytes # (Auto) 2.6x10^3/uL (1.0-4.8) Monocytes # (Auto) 1.1x10^3/uL (0.0-1.1) Eosinophils # (Auto) 0.5x10^3/uL (0.0-0.7) Basophils # (Auto) 0.1x10^3/uL (0.0-0.2) Laboratory Tests Test 09/02/16 04:20 White Blood Count 7.7x10^3/uL (4.0-11.0) Red Blood Count 2.70x10^6/uL (3.50-5.40) Hemoglobin 8.2g/dL (12.0-15.5) Hematocrit 25.6% (36.0-47.0) Mean Corpuscular Volume 95fL (79-100) Mean Corpuscular Hemoglobin 30pg (25-35) Mean Corpuscular Hemoglobin Concent 32g/dL (31-37) Red Cell Distribution Width 15.1% (11.5-14.5) Platelet Count 259x10^3/uL (140-400) Neutrophils (%) (Auto) 46% (31-73) Lymphocytes (%) (Auto) 33% (24-48) Monocytes (%) (Auto) 14% (0-9) Eosinophils (%) (Auto) 6% (0-3) Basophils (%) (Auto) 1% (0-3) Neutrophils # (Auto) 3.5x10^3uL (1.8-7.7) Lymphocytes # (Auto) 2.6x10^3/uL (1.0-4.8) Monocytes # (Auto) 1.1x10^3/uL (0.0-1.1) Eosinophils # (Auto) 0.5x10^3/uL (0.0-0.7) Basophils # (Auto) 0.1x10^3/uL (0.0-0.2) Sodium Level 140mmol/L (136-145) Potassium Level 4.9mmol/L (3.5-5.1) Chloride Level 108mmol/L (98-107) Carbon Dioxide Level 23mmol/L (21-32) Anion Gap 9 (6-14) Blood Urea Nitrogen 12mg/dL (7-20) Creatinine 1.6mg/dL (0.6-1.0) Estimated GFR (Cockcroft-Gault) 33.0 Glucose Level 90mg/dL (70-99) Calcium Level 8.8mg/dL (8.5-10.1) Medications Current Medications Sodium Chloride (Iv Sodium Chloride 0.9% 1000ml Bag) 1,000 ml @ 1,000 mls/hr Q1H IV Last administered on 08/25/16 15:32; Start 08/25/16 at 15:14; Stop at 17:10; Status DC Fentanyl Citrate (Fentanyl 2ml Vial) 50 mcg 1X ONCE IV Last administered on 15:33; Start 08/25/16 at 15:15; Stop 08/25/16 at 17:10; Status DC Ondansetron HCl (Zofran) 4 mg 1X ONCE IV Last administered on 08/25/16 15:33 ; Start 08/25/16 at 15:15; Stop 08/25/16 at 17:10; Status DC Famotidine (Pepcid) 20 mg 1X ONCE IVP Last administered on 08/25/16 15:33; Start 08/25/16 at 15:15; Stop 08/25/16 at 17:10; Status DC Vancomycin HCl 125 mg 1X ONCE PO Last administered on 08/25/16 17:20; Start 08/25/16 at 17:15; Stop 08/25/16 at 17:16; Status DC Ondansetron HCl (Zofran) 4 mg PRN Q8HRS PRN IV NAUSEA/VOMITING Last administered on 08/26/16 11:37; Start 08/25/16 at 17:30; Stop 08/26/16 at 17:29 ; Status DC Fentanyl Citrate 25 mcg 25 mcg PRN Q1HR PRN IV PAIN Last administered on 20:07; Start 08/25/16 at 17:30; Stop 08/26/16 at 17:29; Status DC Sodium Chloride (Iv Sodium Chloride 0.9% 1000ml Bag) 1,000 ml @ 125 mls/hr Q8H IV Last administered on 08/26/16 09:28; Start 08/25/16 at 17:28; Stop at 17:27; Status DC Acetaminophen (Tylenol) 650 mg PRN Q4HRS PRN PO FEVER; Start 08/25/16 at 17:30 ; Stop 08/26/16 at 17:29; Status DC Vancomycin HCl 125 mg [id number] PO Last administered on 09/02/16 08:58; Start at 23:00 Potassium Chloride (Klor-Con) 40 meq 1X ONCE PO Last administered on 18:51; Start 08/25/16 at 18:00; Stop 08/25/16 at 18:01; Status DC Acetaminophen (Tylenol) 650 mg PRN Q6HRS PRN PO PAIN MILD Last administered on 09/02/16 05:21; Start 08/25/16 at 20:15 Lactobacillus Acidophilus (Bacid, Kathryn-Bid) 1 tab TID PO Last administered on 08:59; Start 08/25/16 at 21:00 Alprazolam (Xanax) 0.5 mg PRN BID PRN PO ANXIETY / AGITATION Last administered on 09/02/16 09:18; Start 08/25/16 at 20:15 Ciprofloxacin (Cipro) 250 mg BID PO ; Start 08/25/16 at 21:00; Status UNV Escitalopram Oxalate (Lexapro) 10 mg DAILY PO Last administered on 09/02/16 08: 59; Start 08/26/16 at 09:00 Lisinopril (Prinivil) 10 mg DAILY PO Last administered on 08/26/16 08:23; Start 08/26/16 at 09:00; Stop 08/26/16 at 18:45; Status DC Oxycodone HCl (Roxicodone) 5 mg PRN Q8HRS PRN PO severe pain Last administered on 09/02/16 09:00; Start 08/25/16 at 20:15 Pantoprazole Sodium (Protonix) 40 mg DAILYAC PO Last administered on 08/28/16 08:51; Start 08/26/16 at 07:30; Stop 08/29/16 at 09:13; Status DC Non-Formulary Medication 125 mg QID PO ; Start 08/25/16 at 21:00; Status UNV Hydromorphone HCl 1 mg 1 mg PRN Q4HRS PRN IV PAIN Last administered on 08:10; Start 08/25/16 at 20:15; Stop 08/30/16 at 11:11; Status DC Sodium Chloride 1,000 ml @ 1,000 mls/hr 1X ONCE IV Last administered on 22:15; Start 08/26/16 at 22:15; Stop 08/26/16 at 23:14; Status DC Sodium Chloride 1,000 ml @ 1,000 mls/hr 1X ONCE IV Last administered on 00:30; Start 08/27/16 at 00:30; Stop 08/27/16 at 01:29; Status DC Sodium Chloride (Iv Sodium Chloride 0.9% 1000ml Bag) 1,000 ml @ 125 mls/hr Q8H IV Last administered on 09/02/16 05:21; Start 08/27/16 at 02:00 Ondansetron HCl (Zofran) 4 mg PRN Q8HRS PRN IV NAUSEA/VOMITING Last administered on 08/30/16 11:45; Start 08/27/16 at 12:15 Metoclopramide HCl 5 mg 5 mg QIDACHS PO Last administered on 08/28/16 20:17; Start 08/27/16 at 16:30; Stop 08/29/16 at 09:13; Status DC Magnesium Sulfate/ Dextrose (Magnesium Sulfate PREMIX 2GM) 50 ml @ 25 mls/hr 1X ONCE IV Last administered on 08/28/16 13:52; Start 08/28/16 at 11:30; Stop 08/28/16 at 13:29; Status DC Hydralazine HCl 20 mg 20 mg PRN Q4HRS PRN IVP for SBP > 170 Last administered on 09/02/16 09:19; Start 08/28/16 at 15:00 Sodium Chloride (Iv Sodium Chloride 0.9% 500ml Bag) 500 ml @ 500 mls/hr 1X ONCE IV Last administered on 08/28/16 19:15; Start 08/28/16 at 19:15; Stop at 20:14; Status DC Metoclopramide HCl (Reglan) 5 mg QIDACHS IV Last administered on 09/01/16 08:35 ; Start 08/29/16 at 11:30; Stop 09/01/16 at 11:25; Status DC Pantoprazole Sodium (Protonix Vial) 40 mg DAILYAC IVP Last administered on 08:37; Start 08/29/16 at 10:00; Stop 09/01/16 at 11:25; Status DC Metoprolol Tartrate (Lopressor) 25 mg BID PO Last administered on 08/30/16 11: 03; Start 08/30/16 at 11:00; Stop 08/30/16 at 11:11; Status DC Hydromorphone HCl (Dilaudid) 2 mg PRN Q4HRS PRN IV PAIN Last administered on 11:51; Start 08/30/16 at 11:15; Stop 08/31/16 at 14:05; Status DC Metoprolol Tartrate (Lopressor) 5 mg Q6HRS IVP Last administered on 09/02/16 05 :22; Start 08/30/16 at 12:00 Hydromorphone HCl (Dilaudid) 1 mg PRN Q4HRS PRN IV PAIN Last administered on 05:50; Start 08/31/16 at 14:15 Metoclopramide HCl (Reglan) 10 mg QIDACHS PO Last administered on 09/02/16 05: 50; Start 09/01/16 at 11:30 Pantoprazole Sodium (Protonix) 40 mg BIDAC PO Last administered on 09/02/16 05: 51; Start 09/01/16 at 16:30 Active Scripts Active [Vancomycin Hcl] 125 MG/2.5 ML Solution 125 Mg PO QID 14 Days Cipro (Ciprofloxacin Hcl) 250 Mg Tablet 250 Mg PO BID Oxycodone Hcl 5 Mg Tablet 5 Mg PO Q8H PRN Nexium 24Hr (Esomeprazole Magnesium) 20 Mg Capsule.dr 20 Mg PO DAILY Kathryn-Bid Caplet (Acidoph/L.bulg/Bif.b/S.thermop) 1 Each Tablet 1 Tab PO TID Mapap (Acetaminophen) 325 Mg Tablet 650 Mg PO PRN Q6HRS PRN Escitalopram Oxalate 10 Mg Tablet 1 Tab PO DAILY Reported Xanax (Alprazolam) 0.5 Mg Tablet 1 Tab PO BID PRN Lisinopril 10 Mg Tablet 1 Tab PO DAILY Vitals/I & O Vital Sign - Last 24 Hours 09/01/16 09/01/16 09/01/16 09/01/16 11:14 12:33 12:36 14:59 Temp 99.1 98.2 99.1 98.2 Pulse 77 77 128 Resp 20 20 20 B/P 158/95 158/95 150/90 Pulse Ox 96 96 95 O2 Delivery Room Air Room Air Room Air 09/01/16 09/01/16 09/01/16 09/01/16 15:02 16:02 17:08 17:11 Pulse 128 Resp 20 20 20 B/P 150/90 Pulse Ox 95 95 95 O2 Delivery Room Air Room Air Room Air 09/01/16 09/01/16 09/01/16 09/01/16 17:38 19:00 20:00 23:00 Temp 98.6 98.2 98.6 98.2 Pulse 74 76 Resp 20 20 20 B/P 162/89 165/96 Pulse Ox 95 97 97 O2 Delivery Room Air Room Air Room Air Room Air 09/01/16 09/02/16 09/02/16 09/02/16 23:57 03:01 05:22 07:00 Temp 98.6 97.8 98.6 97.8 Pulse 76 74 74 77 Resp 20 18 B/P 165/96 167/98 167/98 173/95 Pulse Ox 95 93 O2 Delivery Room Air Room Air 09/02/16 09/02/16 09:00 09:19 Pulse 77 Resp 20 B/P 173/95 Pulse Ox 93 O2 Delivery Room Air Intake and Output 09/01/16 09/01/16 09/02/16 15:00 23:00 07:00 Intake Total 480 ml 400 ml Output Total 2000 ml 1600 ml 1400 ml Balance -2000 ml -1120 ml -1000 ml Problem List Problems Medical Problems: (1) GILES (acute kidney injury) Status: Acute (2) C. difficile diarrhea Status: Acute Assessment Swallowing issues likely reflect her severe esophagitis from all the emesis we saw last EGD; time and meds should help. C.diff, clinically better. Neurogenic bladder--certainly contributes. Plan of Care: Continue current Tx, Mgmt Plan of Care Note Will likely take some time for the esophageal issues to markedly improve. PREET AMEZQUITA MD Sep 02, 2016 09:51
--- NOTE | 2016-09-02 10:23 | PDOC ---
PROGRESS NOTES Chief Complaint Chief Complaint - Diarrhea, hx c diff - resolving/resolved - Dehydration, resolved - CKD' - GILES sec to volume loss, resolved - ETOH dependence - Hypokalemia, corrected - Acute abdominal pain, on chronic GAstroparesis - HTN, uncontrolled - Nausea/Vomiting with hypokalemia Hx chronic UTI Neurogenic bladder self caths intermittently History of Present Illness History of Present Illness Headache SBP 170s IVF running NOt eating much claims [place] in, good UO Creatinine back to baseline at 1,.6 PLAn: Inc lopressor to 10 IV q6 REstart home lisinopril Dc kerns Dec iVF If better rach, home rach Vitals Vitals Vital Signs Date Time Temp Pulse Resp B/P Pulse Ox O2 Delivery O2 Flow Rate FiO2 09/02/16 09:19 77 173/95 09/02/16 09:00 20 93 Room Air 09/02/16 07:00 97.8 97.8 Physical Exam General: Alert, Oriented X3, Cooperative, No acute distress Heart: Regular rate, Normal S1, Normal S2, No murmurs, Gallops Lungs: Clear Abdomen: Normal bowel sounds, Soft, No tenderness, No hepatosplenomegaly, No masses Extremities: No clubbing, No cyanosis, No edema, Normal pulses, No tenderness/ swelling Skin: No significant lesion Labs LABS Laboratory Tests Test 09/02/16 04:20 White Blood Count 7.7x10^3/uL (4.0-11.0) Red Blood Count 2.70x10^6/uL (3.50-5.40) Hemoglobin 8.2g/dL (12.0-15.5) Hematocrit 25.6% (36.0-47.0) Mean Corpuscular Volume 95fL (79-100) Mean Corpuscular Hemoglobin 30pg (25-35) Mean Corpuscular Hemoglobin Concent 32g/dL (31-37) Red Cell Distribution Width 15.1% (11.5-14.5) Platelet Count 259x10^3/uL (140-400) Neutrophils (%) (Auto) 46% (31-73) Lymphocytes (%) (Auto) 33% (24-48) Monocytes (%) (Auto) 14% (0-9) Eosinophils (%) (Auto) 6% (0-3) Basophils (%) (Auto) 1% (0-3) Neutrophils # (Auto) 3.5x10^3uL (1.8-7.7) Lymphocytes # (Auto) 2.6x10^3/uL (1.0-4.8) Monocytes # (Auto) 1.1x10^3/uL (0.0-1.1) Eosinophils # (Auto) 0.5x10^3/uL (0.0-0.7) Basophils # (Auto) 0.1x10^3/uL (0.0-0.2) Sodium Level 140mmol/L (136-145) Potassium Level 4.9mmol/L (3.5-5.1) Chloride Level 108mmol/L (98-107) Carbon Dioxide Level 23mmol/L (21-32) Anion Gap 9 (6-14) Blood Urea Nitrogen 12mg/dL (7-20) Creatinine 1.6mg/dL (0.6-1.0) Estimated GFR (Cockcroft-Gault) 33.0 Glucose Level 90mg/dL (70-99) Calcium Level 8.8mg/dL (8.5-10.1) Review of Systems Review of Systems headache, no appetite, nausea Assessment and Plan Assessmemt and Plan Problems Medical Problems: (1) GILES (acute kidney injury) Status: Acute (2) C. difficile diarrhea Status: Acute Problems: Comment Review of Relevant I have reviewed the following items blade (where applicable) has been applied. Labs Laboratory Tests Test 09/01/16 05:40 09/02/16 04:20 Sodium Level 138mmol/L (136-145) 140mmol/L (136-145) Potassium Level 4.6mmol/L (3.5-5.1) 4.9mmol/L (3.5-5.1) Chloride Level 108mmol/L (98-107) 108mmol/L (98-107) Carbon Dioxide Level 22mmol/L (21-32) 23mmol/L (21-32) Anion Gap 8 (6-14) 9 (6-14) Blood Urea Nitrogen 10mg/dL (7-20) 12mg/dL (7-20) Creatinine 1.6mg/dL (0.6-1.0) 1.6mg/dL (0.6-1.0) Estimated GFR (Cockcroft-Gault) 33.0 33.0 Glucose Level 99mg/dL (70-99) 90mg/dL (70-99) Calcium Level 8.4mg/dL (8.5-10.1) 8.8mg/dL (8.5-10.1) White Blood Count 7.7x10^3/uL (4.0-11.0) Red Blood Count 2.70x10^6/uL (3.50-5.40) Hemoglobin 8.2g/dL (12.0-15.5) Hematocrit 25.6% (36.0-47.0) Mean Corpuscular Volume 95fL (79-100) Mean Corpuscular Hemoglobin 30pg (25-35) Mean Corpuscular Hemoglobin Concent 32g/dL (31-37) Red Cell Distribution Width 15.1% (11.5-14.5) Platelet Count 259x10^3/uL (140-400) Neutrophils (%) (Auto) 46% (31-73) Lymphocytes (%) (Auto) 33% (24-48) Monocytes (%) (Auto) 14% (0-9) Eosinophils (%) (Auto) 6% (0-3) Basophils (%) (Auto) 1% (0-3) Neutrophils # (Auto) 3.5x10^3uL (1.8-7.7) Lymphocytes # (Auto) 2.6x10^3/uL (1.0-4.8) Monocytes # (Auto) 1.1x10^3/uL (0.0-1.1) Eosinophils # (Auto) 0.5x10^3/uL (0.0-0.7) Basophils # (Auto) 0.1x10^3/uL (0.0-0.2) Laboratory Tests Test 09/02/16 04:20 White Blood Count 7.7x10^3/uL (4.0-11.0) Red Blood Count 2.70x10^6/uL (3.50-5.40) Hemoglobin 8.2g/dL (12.0-15.5) Hematocrit 25.6% (36.0-47.0) Mean Corpuscular Volume 95fL (79-100) Mean Corpuscular Hemoglobin 30pg (25-35) Mean Corpuscular Hemoglobin Concent 32g/dL (31-37) Red Cell Distribution Width 15.1% (11.5-14.5) Platelet Count 259x10^3/uL (140-400) Neutrophils (%) (Auto) 46% (31-73) Lymphocytes (%) (Auto) 33% (24-48) Monocytes (%) (Auto) 14% (0-9) Eosinophils (%) (Auto) 6% (0-3) Basophils (%) (Auto) 1% (0-3) Neutrophils # (Auto) 3.5x10^3uL (1.8-7.7) Lymphocytes # (Auto) 2.6x10^3/uL (1.0-4.8) Monocytes # (Auto) 1.1x10^3/uL (0.0-1.1) Eosinophils # (Auto) 0.5x10^3/uL (0.0-0.7) Basophils # (Auto) 0.1x10^3/uL (0.0-0.2) Sodium Level 140mmol/L (136-145) Potassium Level 4.9mmol/L (3.5-5.1) Chloride Level 108mmol/L (98-107) Carbon Dioxide Level 23mmol/L (21-32) Anion Gap 9 (6-14) Blood Urea Nitrogen 12mg/dL (7-20) Creatinine 1.6mg/dL (0.6-1.0) Estimated GFR (Cockcroft-Gault) 33.0 Glucose Level 90mg/dL (70-99) Calcium Level 8.8mg/dL (8.5-10.1) Medications Current Medications Sodium Chloride (Iv Sodium Chloride 0.9% 1000ml Bag) 1,000 ml @ 1,000 mls/hr Q1H IV Last administered on 08/25/16 15:32; Start 08/25/16 at 15:14; Stop at 17:10; Status DC Fentanyl Citrate (Fentanyl 2ml Vial) 50 mcg 1X ONCE IV Last administered on 15:33; Start 08/25/16 at 15:15; Stop 08/25/16 at 17:10; Status DC Ondansetron HCl (Zofran) 4 mg 1X ONCE IV Last administered on 08/25/16 15:33 ; Start 08/25/16 at 15:15; Stop 08/25/16 at 17:10; Status DC Famotidine (Pepcid) 20 mg 1X ONCE IVP Last administered on 08/25/16 15:33; Start 08/25/16 at 15:15; Stop 08/25/16 at 17:10; Status DC Vancomycin HCl 125 mg 1X ONCE PO Last administered on 08/25/16 17:20; Start 08/25/16 at 17:15; Stop 08/25/16 at 17:16; Status DC Ondansetron HCl (Zofran) 4 mg PRN Q8HRS PRN IV NAUSEA/VOMITING Last administered on 08/26/16 11:37; Start 08/25/16 at 17:30; Stop 08/26/16 at 17:29 ; Status DC Fentanyl Citrate 25 mcg 25 mcg PRN Q1HR PRN IV PAIN Last administered on 20:07; Start 08/25/16 at 17:30; Stop 08/26/16 at 17:29; Status DC Sodium Chloride (Iv Sodium Chloride 0.9% 1000ml Bag) 1,000 ml @ 125 mls/hr Q8H IV Last administered on 08/26/16 09:28; Start 08/25/16 at 17:28; Stop at 17:27; Status DC Acetaminophen (Tylenol) 650 mg PRN Q4HRS PRN PO FEVER; Start 08/25/16 at 17:30 ; Stop 08/26/16 at 17:29; Status DC Vancomycin HCl 125 mg [id number] PO Last administered on 09/02/16 08:58; Start at 23:00 Potassium Chloride (Klor-Con) 40 meq 1X ONCE PO Last administered on 18:51; Start 08/25/16 at 18:00; Stop 08/25/16 at 18:01; Status DC Acetaminophen (Tylenol) 650 mg PRN Q6HRS PRN PO PAIN MILD Last administered on 09/02/16 05:21; Start 08/25/16 at 20:15 Lactobacillus Acidophilus (Bacid, Kathryn-Bid) 1 tab TID PO Last administered on 08:59; Start 08/25/16 at 21:00 Alprazolam (Xanax) 0.5 mg PRN BID PRN PO ANXIETY / AGITATION Last administered on 09/02/16 09:18; Start 08/25/16 at 20:15 Ciprofloxacin (Cipro) 250 mg BID PO ; Start 08/25/16 at 21:00; Status UNV Escitalopram Oxalate (Lexapro) 10 mg DAILY PO Last administered on 09/02/16 08: 59; Start 08/26/16 at 09:00 Lisinopril (Prinivil) 10 mg DAILY PO Last administered on 08/26/16 08:23; Start 08/26/16 at 09:00; Stop 08/26/16 at 18:45; Status DC Oxycodone HCl (Roxicodone) 5 mg PRN Q8HRS PRN PO severe pain Last administered on 09/02/16 09:00; Start 08/25/16 at 20:15 Pantoprazole Sodium (Protonix) 40 mg DAILYAC PO Last administered on 08/28/16 08:51; Start 08/26/16 at 07:30; Stop 08/29/16 at 09:13; Status DC Non-Formulary Medication 125 mg QID PO ; Start 08/25/16 at 21:00; Status UNV Hydromorphone HCl 1 mg 1 mg PRN Q4HRS PRN IV PAIN Last administered on 08:10; Start 08/25/16 at 20:15; Stop 08/30/16 at 11:11; Status DC Sodium Chloride 1,000 ml @ 1,000 mls/hr 1X ONCE IV Last administered on 22:15; Start 08/26/16 at 22:15; Stop 08/26/16 at 23:14; Status DC Sodium Chloride 1,000 ml @ 1,000 mls/hr 1X ONCE IV Last administered on 00:30; Start 08/27/16 at 00:30; Stop 08/27/16 at 01:29; Status DC Sodium Chloride (Iv Sodium Chloride 0.9% 1000ml Bag) 1,000 ml @ 125 mls/hr Q8H IV Last administered on 09/02/16 05:21; Start 08/27/16 at 02:00 Ondansetron HCl (Zofran) 4 mg PRN Q8HRS PRN IV NAUSEA/VOMITING Last administered on 08/30/16 11:45; Start 08/27/16 at 12:15 Metoclopramide HCl 5 mg 5 mg QIDACHS PO Last administered on 08/28/16 20:17; Start 08/27/16 at 16:30; Stop 08/29/16 at 09:13; Status DC Magnesium Sulfate/ Dextrose (Magnesium Sulfate PREMIX 2GM) 50 ml @ 25 mls/hr 1X ONCE IV Last administered on 08/28/16 13:52; Start 08/28/16 at 11:30; Stop 08/28/16 at 13:29; Status DC Hydralazine HCl 20 mg 20 mg PRN Q4HRS PRN IVP for SBP > 170 Last administered on 09/02/16 09:19; Start 08/28/16 at 15:00 Sodium Chloride (Iv Sodium Chloride 0.9% 500ml Bag) 500 ml @ 500 mls/hr 1X ONCE IV Last administered on 08/28/16 19:15; Start 08/28/16 at 19:15; Stop at 20:14; Status DC Metoclopramide HCl (Reglan) 5 mg QIDACHS IV Last administered on 09/01/16 08:35 ; Start 08/29/16 at 11:30; Stop 09/01/16 at 11:25; Status DC Pantoprazole Sodium (Protonix Vial) 40 mg DAILYAC IVP Last administered on 08:37; Start 08/29/16 at 10:00; Stop 09/01/16 at 11:25; Status DC Metoprolol Tartrate (Lopressor) 25 mg BID PO Last administered on 08/30/16 11: 03; Start 08/30/16 at 11:00; Stop 08/30/16 at 11:11; Status DC Hydromorphone HCl (Dilaudid) 2 mg PRN Q4HRS PRN IV PAIN Last administered on 11:51; Start 08/30/16 at 11:15; Stop 08/31/16 at 14:05; Status DC Metoprolol Tartrate (Lopressor) 5 mg Q6HRS IVP Last administered on 09/02/16 05 :22; Start 08/30/16 at 12:00; Stop 09/02/16 at 09:49; Status DC Hydromorphone HCl (Dilaudid) 1 mg PRN Q4HRS PRN IV PAIN Last administered on 05:50; Start 08/31/16 at 14:15 Metoclopramide HCl (Reglan) 10 mg QIDACHS PO Last administered on 09/02/16 05: 50; Start 09/01/16 at 11:30 Pantoprazole Sodium (Protonix) 40 mg BIDAC PO Last administered on 09/02/16 05: 51; Start 09/01/16 at 16:30 Metoprolol Tartrate (Lopressor) 10 mg Q6HRS IVP ; Start 09/02/16 at 12:00 Lisinopril (Prinivil) 10 mg DAILY PO ; Start 09/02/16 at 10:00 Active Scripts Active [Vancomycin Hcl] 125 MG/2.5 ML Solution 125 Mg PO QID 14 Days Cipro (Ciprofloxacin Hcl) 250 Mg Tablet 250 Mg PO BID Oxycodone Hcl 5 Mg Tablet 5 Mg PO Q8H PRN Nexium 24Hr (Esomeprazole Magnesium) 20 Mg Capsule.dr 20 Mg PO DAILY Kathryn-Bid Caplet (Acidoph/L.bulg/Bif.b/S.thermop) 1 Each Tablet 1 Tab PO TID Mapap (Acetaminophen) 325 Mg Tablet 650 Mg PO PRN Q6HRS PRN Escitalopram Oxalate 10 Mg Tablet 1 Tab PO DAILY Reported Xanax (Alprazolam) 0.5 Mg Tablet 1 Tab PO BID PRN Lisinopril 10 Mg Tablet 1 Tab PO DAILY Vitals/I & O Vital Sign - Last 24 Hours 09/01/16 09/01/16 09/01/16 09/01/16 11:14 12:33 12:36 14:59 Temp 99.1 98.2 99.1 98.2 Pulse 77 77 128 Resp 20 20 20 B/P 158/95 158/95 150/90 Pulse Ox 96 96 95 O2 Delivery Room Air Room Air Room Air 09/01/16 09/01/16 09/01/16 09/01/16 15:02 16:02 17:08 17:11 Pulse 128 Resp 20 20 20 B/P 150/90 Pulse Ox 95 95 95 O2 Delivery Room Air Room Air Room Air 09/01/16 09/01/16 09/01/16 09/01/16 17:38 19:00 20:00 23:00 Temp 98.6 98.2 98.6 98.2 Pulse 74 76 Resp 20 20 20 B/P 162/89 165/96 Pulse Ox 95 97 97 O2 Delivery Room Air Room Air Room Air Room Air 09/01/16 09/02/16 09/02/16 09/02/16 23:57 03:01 05:22 07:00 Temp 98.6 97.8 98.6 97.8 Pulse 76 74 74 77 Resp 20 18 B/P 165/96 167/98 167/98 173/95 Pulse Ox 95 93 O2 Delivery Room Air Room Air 09/02/16 09/02/16 09:00 09:19 Pulse 77 Resp 20 B/P 173/95 Pulse Ox 93 O2 Delivery Room Air Intake and Output 09/01/16 09/01/16 09/02/16 15:00 23:00 07:00 Intake Total 480 ml 400 ml Output Total 2000 ml 1600 ml 1400 ml Balance -2000 ml -1120 ml -1000 ml LIDIA URIAS MD Sep 02, 2016 10:23
[2016-09-02] MEDS: LISINOPRIL 10 MG TABLET PO SCH (10:43)
[2016-09-03] MEDS: HYDROMORPHONE 2 MG/ML VIAL. IV PRN ×7 (02:58→21:36)
[2016-09-03 03:05] VITALS: BP 146/89
[2016-09-03] MEDS: METOPROLOL TARTRATE 5 MG/5 ML VIAL. IVP SCH ×2 (05:56→11:25)
[2016-09-03 07:00] VITALS: BP 172/95
[2016-09-03 07:03] LABS: CALCIUM 8.9 mg/dL (8.5-10.1); CREATININE 1.7 mg/dL (0.6-1.0); GFR 30.8; POTASSIUM 4.7 mmol/L (3.5-5.1)
[2016-09-03] MEDS: METOCLOPRAMIDE HCL 10 MG/10 ML SOLUTION. PO SCH ×4 (07:56→20:16)
[2016-09-03] MEDS: PANTOPRAZOLE 40 MG TABLET. PO SCH ×2 (07:56→16:37)
[2016-09-03] MEDS: LACTOBACILLUS ACIDOPH & BULGAR 1 TABLET. PO SCH ×3 (07:56→20:17)
[2016-09-03] MEDS: LISINOPRIL 10 MG TABLET PO SCH (07:56)
[2016-09-03] MEDS: ESCITALOPRAM 10 MG TABLET. PO SCH (07:56)
[2016-09-03] MEDS: VANCOMYCIN 125 MG/2.5 ML ORAL SOLUTION. PO SCH ×4 (07:56→20:17)
[2016-09-03] MEDS: OXYCODONE IR 5 MG TABLET. PO PRN ×2 (08:00→16:41)
[2016-09-03] MEDS: ACETAMINOPHEN 325 MG TABLET. PO PRN ×2 (09:06→16:41)
[2016-09-03] MEDS: ALPRAZOLAM 0.5 MG TABLET PO PRN ×2 (09:07→20:17)
[2016-09-03 10:51] VITALS: BP 130/77
--- NOTE | 2016-09-03 12:51 | PDOC ---
Subjective: Subjective: Better. Some odynophagia but eating soft foods okay. No n/v. Mild upper abd discomfort. Had a semi-formed stool yesterday but was looser today. Says going home tomorrow. Daughter and family moving in to help her. Plans to self cath QID. Still concerned about BP. Objective: Vital Signs: Vital Signs Date Time Temp Pulse Resp B/P Pulse Ox O2 Delivery O2 Flow Rate FiO2 09/03/16 12:15 Room Air 09/03/16 11:25 77 130/77 09/03/16 10:51 97.9 18 92 97.9 Labs: Laboratory Tests Test 09/03/16 06:30 Sodium Level 140mmol/L Potassium Level 4.7mmol/L Chloride Level 107mmol/L Carbon Dioxide Level 24mmol/L Anion Gap 9 Blood Urea Nitrogen 12mg/dL Creatinine 1.7mg/dL Estimated GFR (Cockcroft-Gault) 30.8 Glucose Level 93mg/dL Calcium Level 8.9mg/dL PE: GEN: NAD, sitting up in bed eating chicken salad sandwich LUNGS: CTAB HEART: RRR ABD: NABS, S/ND, epigastric discomfort (typical for her) NEURO/PSYCH: A & O 3 A/P: Recurrent n/v, abd pain, C Diff diarrhea - improving -h/o reflux, gastroparesis, alcoholism, urinary retention -on oral vanco, probiotics, pantoprazole, Reglan susp Odynophagia - stable -- Continue same per GI. ANNE-MARIE GARCIA Sep 03, 2016 12:51
--- NOTE | 2016-09-03 13:56 | PDOC ---
PROGRESS NOTES Chief Complaint Chief Complaint - Diarrhea, + cdiff h/o cdiff - Dehydration, resolved - CKD' - GILES sec to volume loss, resolved - ETOH dependence - Hypokalemia, corrected - Acute abdominal pain, on chronic GAstroparesis - HTN, uncontrolled - Nausea/Vomiting with hypokalemia Hx chronic UTI Neurogenic bladder self caths intermittently alcoholism plan: 1. fu with GI 2. ON IVF 3. ON lisinopril. dc lopressor on dilaudid pt always required pain med iv in every admission. pt comes here every month dc tmr with vancomycin bid for 1month History of Present Illness History of Present Illness Headache SBP 170s better to 130s IVF running NOt eating much claims [place] in, good UO Creatinine back to baseline at 1,.6 Vitals Vitals Vital Signs Date Time Temp Pulse Resp B/P Pulse Ox O2 Delivery O2 Flow Rate FiO2 09/03/16 13:11 Room Air 09/03/16 11:25 77 130/77 09/03/16 10:51 97.9 18 92 97.9 Physical Exam General: Alert, Oriented X3, Cooperative, No acute distress Heart: Regular rate, Normal S1, Normal S2, No murmurs, Gallops Lungs: Clear Abdomen: Normal bowel sounds, Soft, No tenderness, No hepatosplenomegaly, No masses Extremities: No clubbing, No cyanosis, No edema, Normal pulses, No tenderness/ swelling Skin: No significant lesion Labs LABS Laboratory Tests Test 09/03/16 06:30 Sodium Level 140mmol/L (136-145) Potassium Level 4.7mmol/L (3.5-5.1) Chloride Level 107mmol/L (98-107) Carbon Dioxide Level 24mmol/L (21-32) Anion Gap 9 (6-14) Blood Urea Nitrogen 12mg/dL (7-20) Creatinine 1.7mg/dL (0.6-1.0) Estimated GFR (Cockcroft-Gault) 30.8 Glucose Level 93mg/dL (70-99) Calcium Level 8.9mg/dL (8.5-10.1) Review of Systems Review of Systems no fever, chills, sob or chest pain Assessment and Plan Assessmemt and Plan Problems Medical Problems: (1) GILES (acute kidney injury) Status: Acute (2) C. difficile diarrhea Status: Acute Problems: Comment Review of Relevant I have reviewed the following items blade (where applicable) has been applied. Labs Laboratory Tests Test 09/02/16 04:20 09/03/16 06:30 White Blood Count 7.7x10^3/uL (4.0-11.0) Red Blood Count 2.70x10^6/uL (3.50-5.40) Hemoglobin 8.2g/dL (12.0-15.5) Hematocrit 25.6% (36.0-47.0) Mean Corpuscular Volume 95fL (79-100) Mean Corpuscular Hemoglobin 30pg (25-35) Mean Corpuscular Hemoglobin Concent 32g/dL (31-37) Red Cell Distribution Width 15.1% (11.5-14.5) Platelet Count 259x10^3/uL (140-400) Neutrophils (%) (Auto) 46% (31-73) Lymphocytes (%) (Auto) 33% (24-48) Monocytes (%) (Auto) 14% (0-9) Eosinophils (%) (Auto) 6% (0-3) Basophils (%) (Auto) 1% (0-3) Neutrophils # (Auto) 3.5x10^3uL (1.8-7.7) Lymphocytes # (Auto) 2.6x10^3/uL (1.0-4.8) Monocytes # (Auto) 1.1x10^3/uL (0.0-1.1) Eosinophils # (Auto) 0.5x10^3/uL (0.0-0.7) Basophils # (Auto) 0.1x10^3/uL (0.0-0.2) Sodium Level 140mmol/L (136-145) 140mmol/L (136-145) Potassium Level 4.9mmol/L (3.5-5.1) 4.7mmol/L (3.5-5.1) Chloride Level 108mmol/L (98-107) 107mmol/L (98-107) Carbon Dioxide Level 23mmol/L (21-32) 24mmol/L (21-32) Anion Gap 9 (6-14) 9 (6-14) Blood Urea Nitrogen 12mg/dL (7-20) 12mg/dL (7-20) Creatinine 1.6mg/dL (0.6-1.0) 1.7mg/dL (0.6-1.0) Estimated GFR (Cockcroft-Gault) 33.0 30.8 Glucose Level 90mg/dL (70-99) 93mg/dL (70-99) Calcium Level 8.8mg/dL (8.5-10.1) 8.9mg/dL (8.5-10.1) Laboratory Tests Test 09/03/16 06:30 Sodium Level 140mmol/L (136-145) Potassium Level 4.7mmol/L (3.5-5.1) Chloride Level 107mmol/L (98-107) Carbon Dioxide Level 24mmol/L (21-32) Anion Gap 9 (6-14) Blood Urea Nitrogen 12mg/dL (7-20) Creatinine 1.7mg/dL (0.6-1.0) Estimated GFR (Cockcroft-Gault) 30.8 Glucose Level 93mg/dL (70-99) Calcium Level 8.9mg/dL (8.5-10.1) Medications Current Medications Sodium Chloride (Iv Sodium Chloride 0.9% 1000ml Bag) 1,000 ml @ 1,000 mls/hr Q1H IV Last administered on 08/25/16 15:32; Start 08/25/16 at 15:14; Stop at 17:10; Status DC Fentanyl Citrate (Fentanyl 2ml Vial) 50 mcg 1X ONCE IV Last administered on 15:33; Start 08/25/16 at 15:15; Stop 08/25/16 at 17:10; Status DC Ondansetron HCl (Zofran) 4 mg 1X ONCE IV Last administered on 08/25/16 15:33 ; Start 08/25/16 at 15:15; Stop 08/25/16 at 17:10; Status DC Famotidine (Pepcid) 20 mg 1X ONCE IVP Last administered on 08/25/16 15:33; Start 08/25/16 at 15:15; Stop 08/25/16 at 17:10; Status DC Vancomycin HCl 125 mg 1X ONCE PO Last administered on 08/25/16 17:20; Start 08/25/16 at 17:15; Stop 08/25/16 at 17:16; Status DC Ondansetron HCl (Zofran) 4 mg PRN Q8HRS PRN IV NAUSEA/VOMITING Last administered on 08/26/16 11:37; Start 08/25/16 at 17:30; Stop 08/26/16 at 17:29 ; Status DC Fentanyl Citrate 25 mcg 25 mcg PRN Q1HR PRN IV PAIN Last administered on 20:07; Start 08/25/16 at 17:30; Stop 08/26/16 at 17:29; Status DC Sodium Chloride (Iv Sodium Chloride 0.9% 1000ml Bag) 1,000 ml @ 125 mls/hr Q8H IV Last administered on 08/26/16 09:28; Start 08/25/16 at 17:28; Stop at 17:27; Status DC Acetaminophen (Tylenol) 650 mg PRN Q4HRS PRN PO FEVER; Start 08/25/16 at 17:30 ; Stop 08/26/16 at 17:29; Status DC Vancomycin HCl 125 mg [id number] PO Last administered on 09/03/16 13:11; Start at 23:00 Potassium Chloride (Klor-Con) 40 meq 1X ONCE PO Last administered on 18:51; Start 08/25/16 at 18:00; Stop 08/25/16 at 18:01; Status DC Acetaminophen (Tylenol) 650 mg PRN Q6HRS PRN PO PAIN MILD Last administered on 09/03/16 09:06; Start 08/25/16 at 20:15 Lactobacillus Acidophilus (Bacid, Kathryn-Bid) 1 tab TID PO Last administered on 13:12; Start 08/25/16 at 21:00 Alprazolam (Xanax) 0.5 mg PRN BID PRN PO ANXIETY / AGITATION Last administered on 09/03/16 09:07; Start 08/25/16 at 20:15 Ciprofloxacin (Cipro) 250 mg BID PO ; Start 08/25/16 at 21:00; Status UNV Escitalopram Oxalate (Lexapro) 10 mg DAILY PO Last administered on 09/03/16 07: 56; Start 08/26/16 at 09:00 Lisinopril (Prinivil) 10 mg DAILY PO Last administered on 08/26/16 08:23; Start 08/26/16 at 09:00; Stop 08/26/16 at 18:45; Status DC Oxycodone HCl (Roxicodone) 5 mg PRN Q8HRS PRN PO severe pain Last administered on 09/03/16 08:00; Start 08/25/16 at 20:15 Pantoprazole Sodium (Protonix) 40 mg DAILYAC PO Last administered on 08/28/16 08:51; Start 08/26/16 at 07:30; Stop 08/29/16 at 09:13; Status DC Non-Formulary Medication 125 mg QID PO ; Start 08/25/16 at 21:00; Status UNV Hydromorphone HCl 1 mg 1 mg PRN Q4HRS PRN IV PAIN Last administered on 08:10; Start 08/25/16 at 20:15; Stop 08/30/16 at 11:11; Status DC Sodium Chloride 1,000 ml @ 1,000 mls/hr 1X ONCE IV Last administered on 22:15; Start 08/26/16 at 22:15; Stop 08/26/16 at 23:14; Status DC Sodium Chloride 1,000 ml @ 1,000 mls/hr 1X ONCE IV Last administered on 00:30; Start 08/27/16 at 00:30; Stop 08/27/16 at 01:29; Status DC Sodium Chloride (Iv Sodium Chloride 0.9% 1000ml Bag) 1,000 ml @ 80 mls/hr [id number] IV Last administered on 09/02/16 15:08; Start 08/27/16 at 02:00 Ondansetron HCl (Zofran) 4 mg PRN Q8HRS PRN IV NAUSEA/VOMITING Last administered on 08/30/16 11:45; Start 08/27/16 at 12:15 Metoclopramide HCl 5 mg 5 mg QIDACHS PO Last administered on 08/28/16 20:17; Start 08/27/16 at 16:30; Stop 08/29/16 at 09:13; Status DC Magnesium Sulfate/ Dextrose (Magnesium Sulfate PREMIX 2GM) 50 ml @ 25 mls/hr 1X ONCE IV Last administered on 08/28/16 13:52; Start 08/28/16 at 11:30; Stop 08/28/16 at 13:29; Status DC Hydralazine HCl 20 mg 20 mg PRN Q4HRS PRN IVP for SBP > 170 Last administered on 09/02/16 23:49; Start 08/28/16 at 15:00 Sodium Chloride (Iv Sodium Chloride 0.9% 500ml Bag) 500 ml @ 500 mls/hr 1X ONCE IV Last administered on 08/28/16 19:15; Start 08/28/16 at 19:15; Stop at 20:14; Status DC Metoclopramide HCl (Reglan) 5 mg QIDACHS IV Last administered on 09/01/16 08:35 ; Start 08/29/16 at 11:30; Stop 09/01/16 at 11:25; Status DC Pantoprazole Sodium (Protonix Vial) 40 mg DAILYAC IVP Last administered on 08:37; Start 08/29/16 at 10:00; Stop 09/01/16 at 11:25; Status DC Metoprolol Tartrate (Lopressor) 25 mg BID PO Last administered on 08/30/16 11: 03; Start 08/30/16 at 11:00; Stop 08/30/16 at 11:11; Status DC Hydromorphone HCl (Dilaudid) 2 mg PRN Q4HRS PRN IV PAIN Last administered on 11:51; Start 08/30/16 at 11:15; Stop 08/31/16 at 14:05; Status DC Metoprolol Tartrate (Lopressor) 5 mg Q6HRS IVP Last administered on 09/02/16 05 :22; Start 08/30/16 at 12:00; Stop 09/02/16 at 09:49; Status DC Hydromorphone HCl (Dilaudid) 1 mg PRN Q4HRS PRN IV PAIN Last administered on 19:44; Start 08/31/16 at 14:15; Stop 09/02/16 at 23:27; Status DC Metoclopramide HCl (Reglan) 10 mg QIDACHS PO Last administered on 09/03/16 11: 27; Start 09/01/16 at 11:30 Pantoprazole Sodium (Protonix) 40 mg BIDAC PO Last administered on 09/03/16 07: 56; Start 09/01/16 at 16:30 Metoprolol Tartrate (Lopressor) 10 mg Q6HRS IVP Last administered on 09/03/16 05:56; Start 09/02/16 at 12:00 Lisinopril (Prinivil) 10 mg DAILY PO Last administered on 09/03/16 07:56; Start 09/02/16 at 10:00 Hydromorphone HCl (Dilaudid) 1 mg PRN Q3HRS PRN IV SEVERE PAIN Last administered on 09/03/16 12:15; Start 09/02/16 at 23:25 Active Scripts Active [Vancomycin Hcl] 125 MG/2.5 ML Solution 125 Mg PO QID 14 Days Cipro (Ciprofloxacin Hcl) 250 Mg Tablet 250 Mg PO BID Oxycodone Hcl 5 Mg Tablet 5 Mg PO Q8H PRN Nexium 24Hr (Esomeprazole Magnesium) 20 Mg Capsule.dr 20 Mg PO DAILY Kathryn-Bid Caplet (Acidoph/L.bulg/Bif.b/S.thermop) 1 Each Tablet 1 Tab PO TID Mapap (Acetaminophen) 325 Mg Tablet 650 Mg PO PRN Q6HRS PRN Escitalopram Oxalate 10 Mg Tablet 1 Tab PO DAILY Reported Xanax (Alprazolam) 0.5 Mg Tablet 1 Tab PO BID PRN Lisinopril 10 Mg Tablet 1 Tab PO DAILY Vitals/I & O Vital Sign - Last 24 Hours 09/02/16 09/02/16 09/02/16 09/02/16 14:26 15:08 15:32 15:34 Temp 97.8 97.8 Pulse 87 79 79 Resp 18 20 20 B/P 145/83 174/109 174/109 Pulse Ox 96 96 96 O2 Delivery Room Air Room Air Room Air 09/02/16 09/02/16 09/02/16 09/02/16 15:38 17:05 17:09 18:05 Pulse 89 Resp 20 20 20 B/P 191/102 Pulse Ox 96 96 96 O2 Delivery Room Air Room Air 09/02/16 09/02/16 09/02/16 09/02/16 19:44 19:55 20:00 22:43 Temp 98.8 98.8 Pulse 86 91 85 Resp 20 B/P 219/118 219/118 180/111 Pulse Ox 95 O2 Delivery Room Air Room Air 09/02/16 09/02/16 09/03/16 09/03/16 23:14 23:49 03:05 05:56 Temp 99.3 98.1 99.3 98.1 Pulse 85 75 134 Resp 18 B/P 118/111 178/107 146/89 172/117 Pulse Ox 95 O2 Delivery Room Air Room Air 09/03/16 09/03/16 09/03/16 09/03/16 06:06 06:36 07:00 07:30 Temp 98.1 98.1 Pulse 78 Resp 18 B/P 172/95 Pulse Ox 95 95 92 O2 Delivery Room Air Room Air Room Air 09/03/16 09/03/16 09/03/16 09/03/16 07:56 08:00 09:07 09:07 Pulse 78 B/P 172/95 O2 Delivery Room Air Room Air Room Air 09/03/16 09/03/16 09/03/16 09/03/16 10:51 11:25 12:15 13:11 Temp 97.9 97.9 Pulse 77 77 Resp 18 B/P 130/77 130/77 Pulse Ox 92 O2 Delivery Room Air Room Air Room Air Intake and Output 09/02/16 09/02/16 09/03/16 15:00 23:00 07:00 Intake Total 360 ml 720 ml 240 ml Output Total 2150 ml 500 ml 1000 ml Balance -1790 ml 220 ml -760 ml NIA MANLEY MD Sep 03, 2016 13:56
[2016-09-03 15:00] VITALS: BP 135/79
--- NOTE | 2016-09-03 15:57 | PDOC ---
SUBJECTIVE ROS CKD III Doing OK overall OBJECTIVE Vital Signs Vital Signs Date Time Temp Pulse Resp B/P Pulse Ox O2 Delivery O2 Flow Rate FiO2 09/03/16 15:24 Room Air 09/03/16 15:00 97.9 78 18 135/79 92 97.9 I & 0 Intake and Output 09/03/16 07:00 Intake Total 1320 ml Output Total 3650 ml Balance -2330 ml Intake Oral 1320 ml Output Urine Total 3650 ml # Voids 1 # Bowel Movements 2 PHYSICAL EXAM Physical Exam General Appearance: Awake: Alert Oriented x 3 Neck: No JVD or JVP Chest: CTA Ashu Heart: S1 S2 Abdomen - Soft NTND Extremities - No Edema DIAGNOSIS/ASSESSMENT Assessment & Plan CK DIII - Creat at or close to basline; encourage PO intake Problems: COMMENT/RELEVANT DATA Meds Current Medications Medications (Trade) Dose Ordered Sig/Taz Start Time Stop Time Status Last Admin Dose Admin Acetaminophen (Tylenol) 650 mg PRN Q6HRS PRN 08/25/16 20:15 09/03/16 09:06 650 MG Alprazolam (Xanax) 0.5 mg PRN BID PRN 08/25/16 20:15 09/03/16 09:07 0.5 MG Ciprofloxacin (Cipro) 250 mg BID 08/25/16 21:00 UNV Escitalopram Oxalate (Lexapro) 10 mg DAILY 08/26/16 09:00 09/03/16 07:56 10 MG Famotidine (Pepcid) 20 mg 1X ONCE 08/25/16 15:15 08/25/16 17:10 DC 08/25/16 15:33 20 MG Fentanyl Citrate (Fentanyl 2ml Vial) 25 mcg PRN Q1HR PRN 08/25/16 17:30 08/26/16 17:29 DC 08/25/16 20:07 25 MCG Hydralazine HCl 20 mg 20 mg PRN Q4HRS PRN 08/28/16 15:00 09/02/16 23:49 20 MG Hydromorphone HCl (Dilaudid) 1 mg PRN Q3HRS PRN 09/02/16 23:25 09/03/16 15:24 1 MG Hydromorphone HCl 1 mg 1 mg PRN Q4HRS PRN 08/25/16 20:15 08/30/16 11:11 DC 08/30/16 08:10 1 MG Lactobacillus Acidophilus (Bacid, Kathryn-Bid) 1 tab TID 08/25/16 21:00 09/03/16 13:12 1 TAB Lisinopril (Prinivil) 10 mg DAILY 09/02/16 10:00 09/03/16 07:56 10 MG Magnesium Sulfate/ Dextrose (Magnesium Sulfate PREMIX 2GM) 50 ml @ 25 mls/hr 1X ONCE 08/28/16 11:30 08/28/16 13:29 DC 08/28/16 13:52 25 MLS/HR Metoclopramide HCl 5 mg 5 mg QIDACHS 08/27/16 16:30 08/29/16 09:13 DC 08/28/16 20:17 5 MG Metoclopramide HCl (Reglan) 10 mg QIDACHS 09/01/16 11:30 09/03/16 11:27 10 MG Metoprolol Tartrate (Lopressor) 10 mg Q6HRS 09/02/16 12:00 09/03/16 13:54 DC 09/03/16 05:56 10 MG Non-Formulary Medication 125 mg QID 08/25/16 21:00 UNV Ondansetron HCl (Zofran) 4 mg PRN Q8HRS PRN 08/27/16 12:15 08/30/16 11:45 4 MG Oxycodone HCl (Roxicodone) 5 mg PRN Q8HRS PRN 08/25/16 20:15 09/03/16 08:00 5 MG Pantoprazole Sodium (Protonix Vial) 40 mg DAILYAC 08/29/16 10:00 09/01/16 11:25 DC 09/01/16 08:37 40 MG Pantoprazole Sodium (Protonix) 40 mg BIDAC 09/01/16 16:30 09/03/16 07:56 40 MG Potassium Chloride (Klor-Con) 40 meq 1X ONCE 08/25/16 18:00 08/25/16 18:01 DC 08/25/16 18:51 40 MEQ Sodium Chloride (Iv Sodium Chloride 0.9% 500ml Bag) 500 ml @ 500 mls/hr 1X ONCE 08/28/16 19:15 08/28/16 20:14 DC 08/28/16 19:15 500 MLS/HR Sodium Chloride (Iv Sodium Chloride 0.9% 1000ml Bag) 1,000 ml @ 80 mls/hr [id number] 08/27/16 02:00 09/02/16 15:08 80 MLS/HR Vancomycin HCl 125 mg [id number] 08/25/16 23:00 09/03/16 13:11 125 MG Lab Laboratory Tests Test 09/03/16 06:30 Sodium Level 140mmol/L (136-145) Potassium Level 4.7mmol/L (3.5-5.1) Chloride Level 107mmol/L (98-107) Carbon Dioxide Level 24mmol/L (21-32) Anion Gap 9 (6-14) Blood Urea Nitrogen 12mg/dL (7-20) Creatinine 1.7mg/dL (0.6-1.0) Estimated GFR (Cockcroft-Gault) 30.8 Glucose Level 93mg/dL (70-99) Calcium Level 8.9mg/dL (8.5-10.1) CHLOE ONEILL MD Sep 03, 2016 15:57
[2016-09-03] MEDS: IV NORMAL SALINE 1000ML BAG 1,000 ML IV SCH (16:37)
[2016-09-03 19:00] VITALS: BP 141/75
[2016-09-03 23:00] VITALS: BP 129/78
[2016-09-04] MEDS: HYDROMORPHONE 2 MG/ML VIAL. IV PRN ×4 (00:37→12:40)
[2016-09-04 03:00] VITALS: BP 185/117
[2016-09-04] MEDS: IV NORMAL SALINE 1000ML BAG 1,000 ML IV SCH ×2 (03:50→11:08)
[2016-09-04] MEDS: hydrALAZINE 20 MG/ML VIAL. IVP PRN (03:55)
[2016-09-04 04:17] LABS: BASO # 0.1 x10^3/uL (0.0-0.2); BASO % 1 % (0-3); EOS % 5 % (0-3); HEMATOCRIT 25.7 % (36.0-47.0); HEMOGLOBIN 8.6 g/dL (12.0-15.5); LYMPH # 2.5 x10^3/uL (1.0-4.8); LYMPH % 34 % (24-48); MEAN CORPUSCULAR HEMOGLOBIN 31 pg (25-35); MEAN CORPUSCULAR HGB CONC 33 g/dL (31-37); MEAN CORPUSCULAR VOLUME 92 fL (79-100); MONO % 16 % (0-9); NEUT % 43 % (31-73); PLATELET COUNT 286 x10^3/uL (140-400); RED BLOOD COUNT 2.81 x10^6/uL (3.50-5.40); RED CELL DISTRIBUTION WIDTH 15.1 % (11.5-14.5); WHITE BLOOD COUNT 7.3 x10^3/uL (4.0-11.0)
[2016-09-04 04:34] LABS: CALCIUM 8.7 mg/dL (8.5-10.1); CREATININE 1.8 mg/dL (0.6-1.0); GFR 28.8; POTASSIUM 4.4 mmol/L (3.5-5.1)
[2016-09-04] MEDS: METOCLOPRAMIDE HCL 10 MG/10 ML SOLUTION. PO SCH ×2 (07:14→11:05)
[2016-09-04] MEDS: PANTOPRAZOLE 40 MG TABLET. PO SCH (07:15)
[2016-09-04 07:45] VITALS: BP 169/99
[2016-09-04] MEDS: LACTOBACILLUS ACIDOPH & BULGAR 1 TABLET. PO SCH (09:02)
[2016-09-04] MEDS: ESCITALOPRAM 10 MG TABLET. PO SCH (09:02)
[2016-09-04] MEDS: LISINOPRIL 10 MG TABLET PO SCH (09:02)
[2016-09-04] MEDS: ALPRAZOLAM 0.5 MG TABLET PO PRN (09:02)
[2016-09-04] MEDS: VANCOMYCIN 125 MG/2.5 ML ORAL SOLUTION. PO SCH (09:02)
[2016-09-04] MEDS: ACETAMINOPHEN 325 MG TABLET. PO PRN (09:11)
[2016-09-04] MEDS: OXYCODONE IR 5 MG TABLET. PO PRN (09:12)
[2016-09-04 10:33] VITALS: BP 160/93
[2016-09-04] MEDS ORDERED: ALPR0.5T PO (10:38)
[2016-09-04] MEDS ORDERED: Vancomycin Hcl PO (10:42)
[2016-09-04] MEDS ORDERED: HYDROMORPHONE 2 MG TABLET. PO PRN (10:45)
[2016-09-04] MEDS ORDERED: HYDR2TAB13 PO (10:46)
--- NOTE | 2016-09-04 11:20 | PDOC ---
Subjective: Subjective: Feels about the same. Some epigastric pain (unchanged), some odynophagia ( unchanged), eating a little. Worried she might not get to DC because elevated BP overnight. Objective: Vital Signs: Vital Signs Date Time Temp Pulse Resp B/P Pulse Ox O2 Delivery O2 Flow Rate FiO2 09/04/16 11:06 Room Air 09/04/16 10:33 97.9 91 18 160/93 98 97.9 Labs: Laboratory Tests Test 09/04/16 03:14 White Blood Count 7.3x10^3/uL Red Blood Count 2.81x10^6/uL Hemoglobin 8.6g/dL Hematocrit 25.7% Mean Corpuscular Volume 92fL Mean Corpuscular Hemoglobin 31pg Mean Corpuscular Hemoglobin Concent 33g/dL Red Cell Distribution Width 15.1% Platelet Count 286x10^3/uL Neutrophils (%) (Auto) 43% Lymphocytes (%) (Auto) 34% Monocytes (%) (Auto) 16% Eosinophils (%) (Auto) 5% Basophils (%) (Auto) 1% Neutrophils # (Auto) 3.1x10^3uL Lymphocytes # (Auto) 2.5x10^3/uL Monocytes # (Auto) 1.2x10^3/uL Eosinophils # (Auto) 0.4x10^3/uL Basophils # (Auto) 0.1x10^3/uL Sodium Level 139mmol/L Potassium Level 4.4mmol/L Chloride Level 106mmol/L Carbon Dioxide Level 25mmol/L Anion Gap 8 Blood Urea Nitrogen 13mg/dL Creatinine 1.8mg/dL Estimated GFR (Cockcroft-Gault) 28.8 Glucose Level 87mg/dL Calcium Level 8.7mg/dL PE: GEN: NAD LUNGS: CTAB HEART: RRR ABD: NABS, S/ND, epigastric tenderness NEURO/PSYCH: A & O 3 A/P: Recurrent n/v, abd pain, C Diff diarrhea - improved -h/o reflux, gastroparesis, alcoholism, urinary retention -on oral vanco, probiotics, pantoprazole, Reglan susp Odynophagia HTN -- Continue same per GI - if DCs, would send w/ Reglan suspension (not pills). Has Nexium at home. ?30 days of vanc KRISTAL-ANNE-MARIE CHICAS Sep 04, 2016 11:20
--- NOTE | 2016-09-04 12:27 | PDOC3 ---
Discharge Summary [facility] Date of Admission: Sep 22, 2016 Discharge Date: Sep 04, 2016 Admitting Diagnosis - Diarrhea, + cdiff h/o cdiff - Dehydration, resolved - CKD' - GILES sec to volume loss, resolved - ETOH dependence - Hypokalemia, corrected - Acute abdominal pain, on chronic GAstroparesis - HTN, uncontrolled - Nausea/Vomiting with hypokalemia Hx chronic UTI Neurogenic bladder self caths intermittently alcoholism plan: 1. fu with GI 2. ON IVF 3. ON lisinopril. dc lopressor on dilaudid pt always required pain med iv in every admission. pt comes here every month dc tmr with vancomycin bid for 1month History of Present Illness History of Present Illness Headache SBP 170s better to 130s IVF running NOt eating much claims Luong in, good UO Creatinine back to baseline at 1,.6 Vitals Vitals Vital Signs Date Time Temp Pulse Resp B/P Pulse Ox O2 Delivery O2 Flow Rate FiO2 09/03/16 13:11 Room Air 09/03/16 11:25 77 130/77 09/03/16 10:51 97.9 18 92 97.9 Physical Exam Problems: Final Diagnosis Problems Medical Problems: (1) GILES (acute kidney injury) Status: Acute (2) Back pain Status: Acute (3) C. difficile diarrhea Status: Acute (4) Fall Status: Acute CONSULTS gi id Brief Hospital Course Ms. Rodriguez is a 60 old F, comes here every month for abd pain and diarrhea. Pt lives alone, alcoholism, always comes to hosp for pain meds since her PCP wont give it to her. cdiff positive again this time, altho just treated last month. She knows what to say to keep her here in hosp, always require iv dilaudid and refuse to go home. she still has diarrhea, better. dc home with dilaudid 2mg 10 pills, xanax 20 pills, vanco 125mcg bid x30ds. refer to pain clinic. cannot dc to rehab or snf, because she comes to hosp every month and used ALL her days for medicaid. dc time 40min General: Alert, Oriented X3, Cooperative, No acute distress Heart: Regular rate, Normal S1, Normal S2, No murmurs, Gallops Lungs: Clear Abdomen: Normal bowel sounds, Soft, No tenderness, No hepatosplenomegaly, No masses Extremities: No clubbing, No cyanosis, No edema, Normal pulses, No tenderness/ swelling Skin: No significant lesion Patient History: Cancer confirmed (situation) 32 MOTHER, Onset:52 Family history: Angina (situation) 32 MOTHER Family history: Autoimmune disease (situation) 32 MOTHER Family history: Cardiomyopathy (situation) 32 MOTHER Family history: Cardiovascular disease (situation) 32 MOTHER Family history: Depression (situation) 32 MOTHER Family history: Gastrointestinal disease (situation) 32 MOTHER Family history: Hypertension (situation) 32 MOTHER Stroke 33 FATHER, Onset:77 No Family History of: Family history: Allergy Family history: Alzheimer's disease (situation) Family history: Asthma Family history: Blood disorder (situation) Family history: Breast disease (situation) Family history: Crohn's disease (situation) Family history: Diabetes mellitus (situation) Family history: Epilepsy (situation) Family history: Gallbladder disease (situation) Family history: Hemophilia (situation) Family history: Obesity (situation) Family history: Schizophrenia (situation) Family history: Sickle cell trait (situation) Family history: Suicide (situation) Family history: neoplasm - trachea/bronchus/lung (situation) Family history: neoplasm - urinary organ (situation) Family history: neoplasm of skin (situation) Malignant hyperthermia Sleep apnea Problems: Disposition home CONDITION AT DISCHARGE: Improved, Stable Diet regular Scheduled ([Vancomycin Hcl]) 125 MG PO BID Acidoph/L.bulg/Bif.b/S.thermop (Kathryn-Bid Caplet) 1 TAB PO TID Escitalopram Oxalate (Escitalopram Oxalate) 1 TAB PO DAILY Esomeprazole Magnesium (Nexium 24Hr) 20 MG PO DAILY Lisinopril (Lisinopril) 1 TAB PO DAILY (Reported) Scheduled PRN Acetaminophen (Mapap) 650 MG PO PRN Q6HRS PRN PRN PAIN Alprazolam (Xanax) 1 TAB PO BID PRN PRN ANXIETY / AGITATION Hydromorphone Hcl (Dilaudid) 1 MG PO PRN Q4HRS PRN PRN PAIN Discontinued Medications ([Vancomycin Hcl]) 125 MG PO QID Ciprofloxacin Hcl (Cipro) 250 MG PO BID Oxycodone Hcl (Oxycodone Hcl) 5 MG PO Q8H PRN PRN severe pain Follow Up pcp in 2 week NIA MANLEY MD Sep 04, 2016 12:27
[2016-09-04] MEDS ORDERED: HYDR25TA9 PO (18:52)
[2016-09-04] MEDS ORDERED: VANCOMYCIN 125 MG/2.5 ML ORAL SOLUTION. PO SCH (21:00)
[2016-09-05] MEDS ORDERED: AMLO5TAB4 PO (01:24)
[2016-09-09] MEDS ORDERED: METO10TA81 PO (11:32)
== END 2016-09-04 13:14 | disposition home or self-care (01) | DRG 371 ==
LOC: ER 13:38 → 5 NORTH 17:26
PROVIDERS: ADMIT Internal Medicine; ATTEND Internal Medicine
DX: A04.7 Enterocolitis due to Clostridium difficile (principal); N17.0 Acute kidney failure with tubular necrosis; F11.20 Opioid dependence, uncomplicated; I42.9 Cardiomyopathy, unspecified; K86.1 Other chronic pancreatitis; E03.9 Hypothyroidism, unspecified; E87.6 Hypokalemia; F10.20 Alcohol dependence, uncomplicated; F17.200 Nicotine dependence, unspecified, uncomplicated; G89.29 Other chronic pain; K21.0 Gastro-esophageal reflux disease with esophagitis; F32.9 Major depressive disorder, single episode, unspecified; F41.9 Anxiety disorder, unspecified; M19.90 Unspecified osteoarthritis, unspecified site; I12.9 Hypertensive chronic kidney disease with stage 1 through stage 4 chronic kidney disease, or unspecified chronic kidney disease; K31.84 Gastroparesis; M32.9 Systemic lupus erythematosus, unspecified; D72.829 Elevated white blood cell count, unspecified; Z60.2 Problems related to living alone; M79.7 Fibromyalgia; N18.3 Chronic kidney disease, stage 3 (moderate); N31.9 Neuromuscular dysfunction of bladder, unspecified; Z96.652 Presence of left artificial knee joint; Z16.24 Resistance to multiple antibiotics; Z81.8 Family history of other mental and behavioral disorders; Z82.0 Family history of epilepsy and other diseases of the nervous system; Z82.49 Family history of ischemic heart disease and other diseases of the circulatory system; Z82.5 Family history of asthma and other chronic lower respiratory diseases; Z83.3 Family history of diabetes mellitus; Z86.14 Personal history of Methicillin resistant Staphylococcus aureus infection; Z82.3 Family history of stroke; Z88.5 Allergy status to narcotic agent; Z88.1 Allergy status to other antibiotic agents; Z88.8 Allergy status to other drugs, medicaments and biological substances; Z98.51 Tubal ligation status; Z87.440 Personal history of urinary (tract) infections
CPT/HCPCS: 36415; 74176; 80048; 80053; 83690; 83735; 85007; 85027; 87324; 87641; 96361; 96374; 96375; A4314; C9113; J0360; J1170; J2405; J2765; J3010; J3490; J7030; J7040; J7060; J8597; S0028; 99285-25

== ENCOUNTER 2016-09-04 17:47 | Emergency (ER) | payer MEDICARE, MEDICAID ==
[~2016-09-04] VITALS: Ht 162.6 cm; Wt 68.0 kg
[2016-09-04] MEDS ORDERED: CLONIDINE HCL 0.1 MG TABLET PO ONE (18:45)
[2016-09-04] MEDS ORDERED: HYDR25TA9 PO (18:52)
--- NOTE | 2016-09-04 18:52 | PHYS DOC ---
Past Medical History Past Medical History: Alcoholism, Anxiety, Arthritis, Hypertension, Other Additional Past Medical Histor: c diff, chronic n/v/d & abdominal pain, gastritis, renal insufficiency Past Surgical History: Knee Replacement, Other Additional Past Surgical Histo: back and foot surger, LEFT KNEE REPLACEMENT X2 Alcohol Use: Occasionally Drug Use: None Adult General Chief Complaint Chief Complaint: HYPERTENSION HPI HPI 60-year-old female presenting to the emergency department today after having significant hypertension at home. She recently was admitted to our hospital for nausea vomiting dehydration and C. difficile. She also had acute kidney injury and hypokalemia. She took her blood pressure 3 times a day home and all 3 times it was over 200 systolic. She called her nurse who instructed her to come to the emergency department for evaluation. Currently she has a mild headache. She denies vision changes. She denies chest pain or shortness of breath. She denies abdominal pain blood in her urine. She denies decreased urinary output. Review of systems is negative for chest pain shortness of breath abdominal pain nausea vomiting. All other review of systems is negative unless otherwise noted in history of present illness. Review of Systems Review of Systems SEE ABOVE Current Medications Current Medications Current Medications Medications (Trade) Dose Ordered Sig/Taz Start Time Stop Time Status Last Admin Dose Admin Amlodipine Besylate (Norvasc) 5 mg 1X ONCE 09/04/16 20:30 09/04/16 20:31 DC 09/04/16 20:39 5 MG Aspirin (Children'S Aspirin) 324 mg 1X ONCE 09/04/16 20:00 09/04/16 20:03 DC 09/04/16 20:07 324 MG Clonidine HCl (Catapres) 0.1 mg 1X ONCE 09/04/16 18:45 09/04/16 18:46 DC 09/04/16 18:49 0.1 MG Morphine Sulfate 2 mg PRN Q2HR PRN 09/04/16 20:15 09/05/16 20:14 UNV Ondansetron HCl (Zofran) 4 mg PRN Q8HRS PRN 09/04/16 20:15 09/05/16 20:14 Allergies Allergies Allergies Coded Allergies Type Severity Reaction Last Updated Verified levofloxacin Allergy Intermediate 08/16/16 Yes morphine Allergy Intermediate tolerates Dilaudid 07/26/16 Yes I S O L A T I O N *CONTACT* Allergy Unknown 07/26/16 Yes diphenhydramine HCl Adverse Reaction Intermediate "Jittery on the inside" 07/26 Yes Physical Exam Physical Exam Constitutional: Well developed, well nourished, no acute distress, non-toxic appearance. HENT: Normocephalic, atraumatic, bilateral external ears normal, oropharynx moist, no oral exudates, nose normal. [] Eyes: PERRLA, EOMI, conjunctiva normal, no discharge. [] Neck: Normal range of motion, no tenderness, supple, no stridor. Cardiovascular:Heart rate regular rhythm, no murmur [] Lungs & Thorax: Bilateral breath sounds clear to auscultation . No crackles on auscultation. No wheezing. Abdomen: Bowel sounds normal, soft, no tenderness, no masses, no pulsatile masses. [] Skin: Warm, dry, no erythema, no rash. Back: No tenderness, no flank pain to palpation. Extremities: No tenderness, no cyanosis, no clubbing, ROM intact, no edema. Neurologic: Alert and oriented X 3, normal motor function, normal sensory function, no focal deficits noted. [] Psychologic: Affect normal, judgement normal, mood normal. [] Current Patient Data Vital Signs Vital Signs Date Time Temp Pulse Resp B/P Pulse Ox O2 Delivery O2 Flow Rate FiO2 09/04/16 20:39 78 154/106 09/04/16 20:18 18 96 Room Air 09/04/16 18:12 98.9 98.9 Lab Values Laboratory Tests Test 09/04/16 18:38 09/04/16 19:05 09/04/16 23:20 Sodium Level 139mmol/L (136-145) Potassium Level 4.4mmol/L (3.5-5.1) Chloride Level 104mmol/L (98-107) Carbon Dioxide Level 23mmol/L (21-32) Anion Gap 12 (6-14) Blood Urea Nitrogen 12mg/dL (7-20) Creatinine 1.9mg/dL (0.6-1.0) H Estimated GFR (Cockcroft-Gault) 27.1 Glucose Level 89mg/dL (70-99) Calcium Level 9.1mg/dL (8.5-10.1) Total Bilirubin 0.2mg/dL (0.2-1.0) Direct Bilirubin < 0.1mg/dL (0.0-0.2) Aspartate Amino Transferase (AST) 18U/L (15-37) Alanine Aminotransferase (ALT) 10U/L (14-59) L Alkaline Phosphatase 59U/L (46-116) Troponin I Quantitative 0.109ng/mL (0.000-0.055) 0.105ng/mL (0.000-0.055) Total Protein 7.1g/dL (6.4-8.2) Albumin 2.6g/dL (3.4-5.0) L Lipase 139U/L (73-393) White Blood Count 9.4x10^3/uL (4.0-11.0) Red Blood Count 3.12x10^6/uL (3.50-5.40) L Hemoglobin 9.5g/dL (12.0-15.5) L Hematocrit 28.5% (36.0-47.0) L Mean Corpuscular Volume 92fL (79-100) Mean Corpuscular Hemoglobin 31pg (25-35) Mean Corpuscular Hemoglobin Concent 33g/dL (31-37) Red Cell Distribution Width 15.0% (11.5-14.5) H Platelet Count 317x10^3/uL (140-400) Neutrophils (%) (Auto) 50% (31-73) Lymphocytes (%) (Auto) 32% (24-48) Monocytes (%) (Auto) 15% (0-9) H Eosinophils (%) (Auto) 3% (0-3) Basophils (%) (Auto) 1% (0-3) Neutrophils # (Auto) 4.7x10^3uL (1.8-7.7) Lymphocytes # (Auto) 3.0x10^3/uL (1.0-4.8) Monocytes # (Auto) 1.4x10^3/uL (0.0-1.1) H Eosinophils # (Auto) 0.3x10^3/uL (0.0-0.7) Basophils # (Auto) 0.1x10^3/uL (0.0-0.2) Laboratory Tests 09/04/16 19:05 Laboratory Tests 09/04/16 18:38 EKG EKG [] Radiology/Procedures Radiology/Procedures [] Course & Med Decision Making Course & Med Decision Making Pertinent Labs and Imaging studies reviewed. (See chart for details) [] 60-year-old female presenting to the emergency department today after having elevated blood pressures at home. On triage here she was afebrile with normal heart rate. Blood pressure was elevated at 220 systolic. In the emergency department she was given oral clonidine which improved her blood pressure. Blood work was sent along with chest x-ray. Chest x-ray unremarkable. Blood work showed troponin elevated just above the reference range of normal. She was feeling much better on reevaluation. Otherwise her blood work showed mild baseline anemia. Chemistry panel shows chronic kidney disease. Repeat troponin 3 hours afterwards similar to previous. I discussed the case with Dr. Hill at 2014 for admission to the hospital for the positive troponin. She refused for the patient to be admitted because she felt the patient's positive troponin was not clinically significant. I insisted that I did not feel comfortable discharging the patient because the patient had a positive troponin. She asked me metacarpal or cardiology colleagues for recommendations. I discussed the case with Dr. Clayton who agreed that the patient should be hospitalized for serial troponins and further care. I then rediscussed the case with Dr. Hill who again refused to admit the patient to her team because she felt that the patient's positive troponin was insignificant. I again insisted however she refused admission. I then discussed the case with Dr. Concepcion who recommended that I repeated troponin the emergency department and if the troponin was not above 0.2 that the patient was to be discharged home to follow up with cardiology over the next day or 2. I called another hospital at [facility] for possible transfer for direct admission as an alternative way to continue caring for the patient. They also refused admission. I repeated the patient's troponin 3 hours after the initial. The troponin continued to be elevated but was less than 0.2. As instructed by Dr. Concepcion, the patient was started on Norvasc in the emergency department and subsequently allowed to follow-up with him over the next day or 2 for continue hypertensive management. I feel that I did everything within my power to admit this patient for further monitoring evaluation and care. Unfortunately, I'm unable to force our admitting physician to take this patient. Subsequently discharged home to follow -up with Dr. Concepcion tomorrow. She was prescribed oral norvasc to help maintain her blood pressure until she saw him. Patient was comfortable with discharge. [id number] discharge instructions were given. Hugo Disclaimer Dragon Disclaimer This electronic medical record was generated, in whole or in part, using a voice recognition dictation system. Departure Departure Impression: Primary Impression: Severe hypertension Disposition: HOME, SELF-CARE Condition: STABLE Referrals: UNKNOWN PCP NAME (PCP) PREET JASSO MD Patient Instructions: Hypertension Additional Instructions: Thank you for allowing us to participate in your care today. Followup with your primary care physician in 3 days if your symptoms do not improve. Return to the emergency department you have any new or concerning findings. This should be evaluated by the primary care physician and any necessary consulting services for continued management within a few days after discharge. Return to emergency room if you have any new or concerning symptoms including but not limited to fever, chills, nausea, vomiting, intractable pain, any new rashes, chest pain, shortness of air, uncontrolled bleeding, difficulty breathing, and/or vision loss. Scripts Amlodipine Besylate (Norvasc)5 Mg Tablet1 Tab PO DAILY #7 TAB Ref 5 Prov:RIC DESHPANDE MD 09/05/16 Hydrochlorothiazide (Hydrochlorothiazide Tablet )25 Mg Tablet1 Tab PO DAILY # 7 TAB Ref 5 Prov:RIC DESHPANDE MD 09/04/16 RIC DESHPANDE MD Sep 04, 2016 18:52
[2016-09-04 19:08] LABS: ANION GAP 12 (6-14); BLOOD UREA NITROGEN 12 mg/dL (7-20); CALCIUM 9.1 mg/dL (8.5-10.1); CARBON DIOXIDE 23 mmol/L (21-32); CHLORIDE 104 mmol/L (98-107); CREATININE 1.9 mg/dL (0.6-1.0); GFR 27.1; GLUCOSE 89 mg/dL (70-99); POTASSIUM 4.4 mmol/L (3.5-5.1); SODIUM 139 mmol/L (136-145)
[2016-09-04 19:13] LABS: ALBUMIN 2.6 g/dL (3.4-5.0); ALK PHOS 59 U/L (46-116); ALT (SGPT) 10 U/L (14-59); AST (SGOT) 18 U/L (15-37); DIRECT BILIRUBIN < 0.1 mg/dL (0.0-0.2); TOTAL BILIRUBIN 0.2 mg/dL (0.2-1.0); TOTAL PROTEIN 7.1 g/dL (6.4-8.2)
[2016-09-04 19:16] LABS: BASO # 0.1 x10^3/uL (0.0-0.2); BASO % 1 % (0-3); EOS % 3 % (0-3); HEMATOCRIT 28.5 % (36.0-47.0); HEMOGLOBIN 9.5 g/dL (12.0-15.5); LYMPH % 32 % (24-48); MEAN CORPUSCULAR HEMOGLOBIN 31 pg (25-35); MEAN CORPUSCULAR HGB CONC 33 g/dL (31-37); MEAN CORPUSCULAR VOLUME 92 fL (79-100); MONO % 15 % (0-9); NEUT % 50 % (31-73); PLATELET COUNT 317 x10^3/uL (140-400); RED BLOOD COUNT 3.12 x10^6/uL (3.50-5.40); WHITE BLOOD COUNT 9.4 x10^3/uL (4.0-11.0)
[2016-09-04] MEDS ORDERED: ASPIRIN 81 MG TAB.CHEW PO ONE (20:00)
[2016-09-04] MEDS ORDERED: ONDANSETRON PF 4 MG/2 ML VIAL. IV PRN (20:15)
[2016-09-04] MEDS ORDERED: MORPHINE SULFATE 2 MG/ML DISP.SYRIN. IV PRN (20:15)
[2016-09-04] MEDS ORDERED: AMLODIPINE BESYLATE 5 MG TABLET PO ONE (20:30)
[2016-09-04 20:39] VITALS: BP 154/106
[2016-09-05] MEDS ORDERED: AMLO5TAB4 PO (01:24)
--- NOTE | 2016-09-05 06:28 | EKG ---
[facility] [address] [place] [address] Test Date: 2016-09-04 Test Time: 19:01:16 Pat Name: SANTI HERRON Department: Room: Gender: F [employer]: : [id number] Requested By: RIC DESHPANDE Order Number: [id number] Reading MD: Measurements Intervals [place] Rate: 74 P: 48 [place]: 140 QRS: 0 QRSD: 82 T: 8 QT: 428 QTc: 481 Interpretive Statements SINUS RHYTHM LEFTWARD AXIS PROLONGED QT RI6.01 Unconfirmed report No previous ECG available for comparison
--- NOTE | 2016-09-05 08:46 | RAD ---
EXAM: Chest one view. HISTORY: Hypertension. COMPARISON: 07/05/2016. FINDINGS: A frontal view of the chest is obtained. There is a small left pleural effusion. Trace pulmonary edema is likely present. There is no pneumothorax. The heart is not enlarged. IMPRESSION: 1. Suspect trace pulmonary edema and a small left pleural effusion. Correlate with volume status.
== END 2016-09-05 01:54 | disposition home or self-care (01) ==
LOC: ER 17:51
DX: I10 Essential (primary) hypertension (principal); R11.2 Nausea with vomiting, unspecified; E86.0 Dehydration; E87.6 Hypokalemia; R51 Headache; M19.90 Unspecified osteoarthritis, unspecified site; F10.20 Alcohol dependence, uncomplicated; Z88.5 Allergy status to narcotic agent; Z88.1 Allergy status to other antibiotic agents; Z88.8 Allergy status to other drugs, medicaments and biological substances; Z91.041 Radiographic dye allergy status
CPT/HCPCS: 36415; 71010; 80048; 80076; 83690; 84484; 85027; 93005; 99285-25

== ENCOUNTER 2016-09-08 12:53 | Inpatient (IN) | payer MEDICARE, MEDICAID ==
[~2016-09-08] VITALS: Ht 162.6 cm; Wt 66.3 kg
[~2016-09-08 12:53] MED LIST changes: +HYDR25TA9 PO
[2016-09-08] MEDS ORDERED: HYDROMORPHONE 2 MG/ML VIAL. IV ONE (14:00)
[2016-09-08] MEDS ORDERED: IV NORMAL SALINE 1000ML BAG 1,000 ML IV SCH ×2 (14:00→16:20)
[2016-09-08] MEDS ORDERED: METOCLOPRAMIDE HCL 10 MG/2 ML VIAL. IV ONE (14:00)
[2016-09-08 14:31] LABS: BASO # 0.1 x10^3/uL (0.0-0.2); BASO % 1 % (0-3); EOS % 0 % (0-3); HEMATOCRIT 31.5 % (36.0-47.0); HEMOGLOBIN 10.5 g/dL (12.0-15.5); LYMPH # 2.6 x10^3/uL (1.0-4.8); LYMPH % 18 % (24-48); MEAN CORPUSCULAR HEMOGLOBIN 30 pg (25-35); MEAN CORPUSCULAR HGB CONC 33 g/dL (31-37); MEAN CORPUSCULAR VOLUME 91 fL (79-100); MONO % 13 % (0-9); NEUT % 68 % (31-73); PLATELET COUNT 382 x10^3/uL (140-400); RED BLOOD COUNT 3.48 x10^6/uL (3.50-5.40); RED CELL DISTRIBUTION WIDTH 14.7 % (11.5-14.5); WHITE BLOOD COUNT 14.6 x10^3/uL (4.0-11.0)
[2016-09-08 14:41] LABS: ALBUMIN 3.1 g/dL (3.4-5.0); ALBUMIN/GLOBULIN RATIO 0.6 (1.0-1.7); CALCIUM 9.4 mg/dL (8.5-10.1); CREATININE 2.5 mg/dL (0.6-1.0); GFR 19.6; TOTAL BILIRUBIN 0.3 mg/dL (0.2-1.0); TOTAL PROTEIN 8.1 g/dL (6.4-8.2)
[2016-09-08 14:47] LABS: POTASSIUM 2.8 mmol/L (3.5-5.1)
[2016-09-08 14:49] LABS: CKMB INDEX 1.3 % (0-4)
[2016-09-08] MEDS ORDERED: POTASSIUM CHLORIDE 20 MEQ/15 ML ORAL LIQUID. PO ONE (15:15)
--- NOTE | 2016-09-08 15:40 | PHYS DOC ---
Past Medical History Past Medical History: Alcoholism, Anxiety, Arthritis, Hypertension, Other Additional Past Medical Histor: c diff, chronic n/v/d & abdominal pain, gastritis, renal insufficiency Past Surgical History: Knee Replacement, Other Additional Past Surgical Histo: back and foot surger, LEFT KNEE REPLACEMENT X2 Alcohol Use: Occasionally Drug Use: Opiates Adult General Chief Complaint Chief Complaint: vomiting HPI HPI Patient is a 61 year old female who presents from home with the complaint of vomiting and abdominal pain. The patient states that night she ate some [place] food, she was fine, she refrigerated leftovers and reheated them and ate them for lunch on Saturday, about 30 minutes later she started vomiting, and has vomited all night long maybe 15 times since then. It is now just coming up clear. No blood in the emesis. She last vomited at 11 AM. She's had no blood in the vomit. She had one episode of a little bit of diarrhea. She does have a history of gastroparesis, takes Reglan for that. She has been taking the Reglan but may have vomited it. She also is prescribed Dilaudid for back pain and Zofran, she has tried taking both of those. She does have a recent history of C. difficile and was in the hospital for 10 days and treated for that. That seemed to be better[facility] Systems Review of Systems Constitutional: Denies fever or chills [] Eyes: Denies change in visual acuity, redness, or eye pain [] HENT: Denies nasal congestion or sore throat [] Respiratory: Denies cough or shortness of breath [] Cardiovascular: Denies chest pain GI: As in history of present illness : Denies dysuria or hematuria [] Musculoskeletal: Denies back pain or joint pain [] Integument: Denies rash or skin lesions [] Neurologic: Denies headache, focal weakness or sensory changes [] Current Medications Current Medications Current Medications Medications (Trade) Dose Ordered Sig/Taz Start Time Stop Time Status Last Admin Dose Admin Hydromorphone HCl (Dilaudid) 1 mg 1X ONCE 09/08/16 14:00 09/08/16 14:01 DC 09/08/16 14:06 1 MG Metoclopramide HCl (Reglan) 10 mg 1X ONCE 09/08/16 14:00 09/08/16 14:01 DC 09/08/16 14:07 10 MG Potassium Chloride (KCl Oral Soln) 40 meq 1X ONCE 09/08/16 15:15 09/08/16 15:16 DC 09/08/16 15:15 40 MEQ Sodium Chloride (Iv Sodium Chloride 0.9% 1000ml Bag) 1,000 ml @ 1,000 mls/hr Q1H 09/08/16 14:00 09/08/16 14:59 DC 09/08/16 14:07 1,000 MLS/HR Allergies Allergies Allergies Coded Allergies Type Severity Reaction Last Updated Verified levofloxacin Allergy Intermediate 08/16/16 Yes morphine Allergy Intermediate tolerates Dilaudid 07/26/16 Yes I S O L A T I O N *CONTACT* Allergy Unknown 07/26/16 Yes diphenhydramine HCl Adverse Reaction Intermediate "Jittery on the inside" 07/26 Yes Physical Exam Physical Exam Constitutional: Well developed, well nourished, no acute distress, non-toxic appearance. [] HENT: Normocephalic, atraumatic, bilateral external ears normal, nose normal. [] Eyes: conjunctiva normal, no discharge. [] Neck: Normal range of motion, no stridor. [] Cardiovascular:Heart rate regular rhythm, no murmur [] Lungs & Thorax: Bilateral breath sounds clear to auscultation [] Abdomen: Bowel sounds normal, soft, nondistended, no masses, no pulsatile masses. Mild tenderness to palpation down the mid abdomen, no rebound or guarding, benign exam overall. Skin: Warm, dry, no erythema, no rash. [] Extremities: No tenderness, no cyanosis, no clubbing, ROM intact, no edema. [] Neurologic: Alert and oriented X 3, normal motor function, normal sensory function, no focal deficits noted. [] Current Patient Data Vital Signs Vital Signs Date Time Temp Pulse Resp B/P Pulse Ox O2 Delivery O2 Flow Rate FiO2 09/08/16 14:06 18 97 Room Air 09/08/16 13:10 98.7 99 141/86 98.7 Lab Values Laboratory Tests Test 09/08/16 14:10 White Blood Count 14.6x10^3/uL (4.0-11.0) #H Red Blood Count 3.48x10^6/uL (3.50-5.40) L Hemoglobin 10.5g/dL (12.0-15.5) L Hematocrit 31.5% (36.0-47.0) L Mean Corpuscular Volume 91fL (79-100) Mean Corpuscular Hemoglobin 30pg (25-35) Mean Corpuscular Hemoglobin Concent 33g/dL (31-37) Red Cell Distribution Width 14.7% (11.5-14.5) H Platelet Count 382x10^3/uL (140-400) Neutrophils (%) (Auto) 68% (31-73) Lymphocytes (%) (Auto) 18% (24-48) L Monocytes (%) (Auto) 13% (0-9) H Eosinophils (%) (Auto) 0% (0-3) Basophils (%) (Auto) 1% (0-3) Neutrophils # (Auto) 10.0x10^3uL (1.8-7.7) H Lymphocytes # (Auto) 2.6x10^3/uL (1.0-4.8) Monocytes # (Auto) 1.8x10^3/uL (0.0-1.1) H Eosinophils # (Auto) 0.0x10^3/uL (0.0-0.7) Basophils # (Auto) 0.1x10^3/uL (0.0-0.2) Sodium Level 139mmol/L (136-145) Potassium Level 2.8mmol/L (3.5-5.1) *L Chloride Level 94mmol/L (98-107) L Carbon Dioxide Level 38mmol/L (21-32) H Anion Gap 7 (6-14) Blood Urea Nitrogen 15mg/dL (7-20) Creatinine 2.5mg/dL (0.6-1.0) H Estimated GFR (Cockcroft-Gault) 19.6 BUN/Creatinine Ratio 6 (6-20) Glucose Level 121mg/dL (70-99) H Calcium Level 9.4mg/dL (8.5-10.1) Magnesium Level 1.9mg/dL (1.8-2.4) Total Bilirubin 0.3mg/dL (0.2-1.0) Aspartate Amino Transferase (AST) 22U/L (15-37) Alanine Aminotransferase (ALT) 14U/L (14-59) Alkaline Phosphatase 83U/L (46-116) Creatine Kinase 79U/L (26-192) Creatine Kinase MB (Mass) 1.0ng/mL (0.0-3.6) Creatine Kinase MB Relative Index 1.3% (0-4) Troponin I Quantitative 0.033ng/mL (0.000-0.055) Total Protein 8.1g/dL (6.4-8.2) Albumin 3.1g/dL (3.4-5.0) L Albumin/Globulin Ratio 0.6 (1.0-1.7) L Lipase 183U/L (73-393) Laboratory Tests 09/08/16 14:10 Laboratory Tests 09/08/16 14:10 EKG EKG [] Radiology/Procedures Radiology/Procedures [] Course & Med Decision Making Course & Med Decision Making Pertinent Labs and Imaging studies reviewed. (See chart for details) 61-year-old female presents with abdominal pain and vomiting. She does have a history of gastroparesis. It sounds like that was diagnosed with a gastric emptying study. I reviewed her chart and the patient is here relatively regularly for abdominal pain and vomiting. I discussed with the patient some pain and nausea medicine and IV fluids and she is agreeable to that plan. The patient did not have any significant vomiting while in the ED. She did get a liter of fluids and some pain and nausea medicine. Labs significant for an elevated creatinine and hypokalemia, both likely secondary to dehydration from vomiting. I feel the patient will need a longer episode of IV fluids and symptom control so needs to be admitted to the hospital. I discussed the case with Dr. Mcgill, [facility], who will admit the patient. I wrote bridge orders. It's possible that some of her symptoms are from opiate withdrawal. The patient states that she does not take Dilaudid even every day but she is prescribed that at home for back pain and that's a consideration. She is requesting IV Dilaudid here. I gave her one dose in the emergency department but I don't believe it is indicated to continue at will IV dosing of Dilaudid in the hospital. She does not have any documentation of an acutely painful condition that would necessitate this. I discussed with the patient that some of her symptoms may be worsened by strong IV opiates and I suggested that we back off a little bit and use and now. She is reluctantly agreeable to that. [] Dragon Disclaimer Dragon Disclaimer This electronic medical record was generated, in whole or in part, using a voice recognition dictation system. Departure Departure Impression: Primary Impression: Dehydration Additional Impression: Hypokalemia Disposition: ADMITTED INPATIENT Admitting Physician: Franck Mcgill Condition: STABLE Referrals: UNKNOWN PCP NAME (PCP) Problem Qualifiers HARSH BEY MD Sep 08, 2016 15:40
--- NOTE | 2016-09-08 16:02 | ACF ---
Admission Forms Criteria DEHYDRATION Clinical Indications for Admission to Inpatient Care (Place 'X' for any and all applicable criteria): Admission is indicated for ANY ONE of the following (1)(2)(3)(4)(5): [X]I. Inpatient admission required rather than observation care (see Dehydration: Observation Care guideline as appropriate) because of ANY ONE of the following: [X]a) Vomiting that is severe or persistent [X]b) Severe electrolyte abnormalities requiring inpatient care [ ]c) Hemodynamic instability [ ]d) IV fluid to replace significant ongoing losses (greater than 3 L/m2 per day (10) (11) [ ]e) Parenteral nutrition regimen that must be implemented on inpatient basis [X]f) Other condition,treatment or monitoring requiring inpatient admission [ ]II. Serious cause for dehydration requiring acute hospitalization (eg, bowel obstruction, increased intracranial pressure, infectious cause) Extended stay beyond goal length of stay may be needed for(1)(3 )(4)(17): [ ]a) Chronic severe dehydration [ ]b) Persistent vital sign changes, severe electrolyte imbalance, or diagnosed cause of dehydration that requires continued hospitalization (eg, bowel obstruction, increased intracranial pressure) [ ]c) Older patients (65 years or older) [ ]d) Severe comorbid illness (eg, renal failure, heart failure, poorly controlled diabetes) The original [employer] content created by [employer] has been revised. The portions of the content which have been revised are identified through the use of italic text or in bold, and [facility] [employer] has neither reviewed nor approved the modified material. All other unmodified content is copyright [employer]. Please see references footnoted in the original [employer] edition 2016 Admission Criteria Met?: Yes NIKKIE TRINIDAD Sep 08, 2016 16:02
[2016-09-08] MEDS ORDERED: METOCLOPRAMIDE HCL 10 MG/2 ML VIAL. IV PRN (16:30)
[2016-09-08] MEDS: FENTANYL PF 100 MCG/2 ML VIAL. IV PRN (16:52)
[2016-09-08 17:30] VITALS: BP 152/98
[2016-09-08] MEDS ORDERED: METO10TA81 PO (17:47)
[2016-09-08 18:15] VITALS: BP 152/98
[2016-09-08] MEDS ORDERED: HYDROMORPHONE 2 MG/ML VIAL. IV PRN (19:00)
[2016-09-08] MEDS ORDERED: ONDANSETRON PF 4 MG/2 ML VIAL. IV PRN (19:00)
[2016-09-08] MEDS ORDERED: ACETAMINOPHEN 325 MG TABLET. PO PRN (19:00)
[2016-09-08] MEDS ORDERED: HYDROMORPHONE 2 MG TABLET. PO PRN (19:00)
--- NOTE | 2016-09-08 19:02 | PDOC1 ---
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 pt also like to lie to different staff , docs and then require for dilaudid all the time and refuse to leave the hosp. cannot send to SNF since she stayed in hosp too long and too many times and likely SNF too many times too, used up her insurance coverage. She was found Cr 2.5 from 1.9 when dced last week, with low k, likely 2/2 dehydration. Past Medical History Cardiovascular: HTN Heme/Onc: Anemia NOS Psych: Anxiety, Depression Rheumatologic: Fibromyalgia Infectious disease: Other Renal/: Chronic renal insuff, Other Past Surgical History Past Surgical History: Total knee replacement, Tubal Ligation, Other Family History Family History: Stroke Social History Smoke: <1 pack per day ALCOHOL: heavy Drugs: None Current Problem List Problem List Problems Medical Problems: (1) Dehydration Status: Acute (2) Hypokalemia Status: Acute Current Medications Current Medications Current Medications Medications (Trade) Dose Ordered Sig/Taz Start Time Stop Time Status Last Admin Dose Admin Fentanyl Citrate 50 mcg 50 mcg PRN Q1HR PRN 09/08/16 16:30 09/09/16 16:29 09/08/16 16:52 50 MCG Hydromorphone HCl (Dilaudid) 1 mg 1X ONCE 09/08/16 14:00 09/08/16 14:01 DC 09/08/16 14:06 1 MG Metoclopramide HCl (Reglan) 10 mg PRN Q6HRS PRN 09/08/16 16:30 Potassium Chloride (KCl Oral Soln) 40 meq 1X ONCE 09/08/16 15:15 09/08/16 15:16 DC 09/08/16 15:15 40 MEQ Sodium Chloride (Iv Sodium Chloride 0.9% 1000ml Bag) 1,000 ml @ 100 mls/hr Q10H 09/08/16 16:20 09/09/16 16:19 09/08/16 17:24 100 MLS/HR Allergies Allergies Allergies Coded Allergies Type Severity Reaction Last Updated Verified levofloxacin Allergy Intermediate 08/16/16 Yes morphine Allergy Intermediate tolerates Dilaudid 07/26/16 Yes I S O L A T I O N *CONTACT* Allergy Unknown 07/26/16 Yes diphenhydramine HCl Adverse Reaction Intermediate "Jittery on the inside" 07/26 Yes ROS Review of System CONSTITUTIONAL: No fever or chills EYES: No recent changes SKIN: No rash or itching CARDIOVASCULAR: No chest pain, syncope, palpitations, or edema RESPIRATORY: No SOB or cough GASTROINTESTINAL: No nausea, vomiting or abdominal pain NEUROLOGICAL: No headaches or weakness ENDOCRINE: No cold or heat intolerance GENITOURINARY: No urgency or frequency of urination MUSCULOSKELETAL: No back pain or joint pain LYMPHATICS: No enlarged lymph nodes PSYCHIATRIC: No anxiety or depression Physical Exam Physical Exam GEN.: No apparent distress. Alert and oriented. HEENT: Head is normocephalic, atraumatic NECK: Supple. LUNGS: Clear to auscultation. HEART: RRR, S1, S2 present. Peripheral pulses intact ABDOMEN: Soft, nontender. Positive bowel sounds. EXTREMITIES: Without any cyanosis. NEUROLOGIC: Normal speech, normal tone PSYCHIATRIC: Normal affect, normal mood. SKIN: No ulcerations Vitals Vitals Vital Signs Date Time Temp Pulse Resp B/P Pulse Ox O2 Delivery O2 Flow Rate FiO2 09/08/16 18:15 97.9 116 19 152/98 Room Air 97.9 09/08/16 17:30 95 Labs Labs Laboratory Tests Test 09/08/16 14:10 White Blood Count 14.6x10^3/uL (4.0-11.0) Red Blood Count 3.48x10^6/uL (3.50-5.40) Hemoglobin 10.5g/dL (12.0-15.5) Hematocrit 31.5% (36.0-47.0) Mean Corpuscular Volume 91fL (79-100) Mean Corpuscular Hemoglobin 30pg (25-35) Mean Corpuscular Hemoglobin Concent 33g/dL (31-37) Red Cell Distribution Width 14.7% (11.5-14.5) Platelet Count 382x10^3/uL (140-400) Neutrophils (%) (Auto) 68% (31-73) Lymphocytes (%) (Auto) 18% (24-48) Monocytes (%) (Auto) 13% (0-9) Eosinophils (%) (Auto) 0% (0-3) Basophils (%) (Auto) 1% (0-3) Neutrophils # (Auto) 10.0x10^3uL (1.8-7.7) Lymphocytes # (Auto) 2.6x10^3/uL (1.0-4.8) Monocytes # (Auto) 1.8x10^3/uL (0.0-1.1) Eosinophils # (Auto) 0.0x10^3/uL (0.0-0.7) Basophils # (Auto) 0.1x10^3/uL (0.0-0.2) Sodium Level 139mmol/L (136-145) Potassium Level 2.8mmol/L (3.5-5.1) Chloride Level 94mmol/L (98-107) Carbon Dioxide Level 38mmol/L (21-32) Anion Gap 7 (6-14) Blood Urea Nitrogen 15mg/dL (7-20) Creatinine 2.5mg/dL (0.6-1.0) Estimated GFR (Cockcroft-Gault) 19.6 BUN/Creatinine Ratio 6 (6-20) Glucose Level 121mg/dL (70-99) Calcium Level 9.4mg/dL (8.5-10.1) Total Bilirubin 0.3mg/dL (0.2-1.0) Aspartate Amino Transf (AST/SGOT) 22U/L (15-37) Alanine Aminotransferase (ALT/SGPT) 14U/L (14-59) Alkaline Phosphatase 83U/L (46-116) Creatine Kinase 79U/L (26-192) Creatine Kinase MB (Mass) 1.0ng/mL (0.0-3.6) Creatine Kinase MB Relative Index 1.3% (0-4) Troponin I Quantitative 0.033ng/mL (0.000-0.055) Total Protein 8.1g/dL (6.4-8.2) Albumin 3.1g/dL (3.4-5.0) Albumin/Globulin Ratio 0.6 (1.0-1.7) Lipase 183U/L (73-393) Laboratory Tests Test 09/08/16 14:10 White Blood Count 14.6x10^3/uL (4.0-11.0) Red Blood Count 3.48x10^6/uL (3.50-5.40) Hemoglobin 10.5g/dL (12.0-15.5) Hematocrit 31.5% (36.0-47.0) Mean Corpuscular Volume 91fL (79-100) Mean Corpuscular Hemoglobin 30pg (25-35) Mean Corpuscular Hemoglobin Concent 33g/dL (31-37) Red Cell Distribution Width 14.7% (11.5-14.5) Platelet Count 382x10^3/uL (140-400) Neutrophils (%) (Auto) 68% (31-73) Lymphocytes (%) (Auto) 18% (24-48) Monocytes (%) (Auto) 13% (0-9) Eosinophils (%) (Auto) 0% (0-3) Basophils (%) (Auto) 1% (0-3) Neutrophils # (Auto) 10.0x10^3uL (1.8-7.7) Lymphocytes # (Auto) 2.6x10^3/uL (1.0-4.8) Monocytes # (Auto) 1.8x10^3/uL (0.0-1.1) Eosinophils # (Auto) 0.0x10^3/uL (0.0-0.7) Basophils # (Auto) 0.1x10^3/uL (0.0-0.2) Sodium Level 139mmol/L (136-145) Potassium Level 2.8mmol/L (3.5-5.1) Chloride Level 94mmol/L (98-107) Carbon Dioxide Level 38mmol/L (21-32) Anion Gap 7 (6-14) Blood Urea Nitrogen 15mg/dL (7-20) Creatinine 2.5mg/dL (0.6-1.0) Estimated GFR (Cockcroft-Gault) 19.6 BUN/Creatinine Ratio 6 (6-20) Glucose Level 121mg/dL (70-99) Calcium Level 9.4mg/dL (8.5-10.1) Total Bilirubin 0.3mg/dL (0.2-1.0) Aspartate Amino Transf (AST/SGOT) 22U/L (15-37) Alanine Aminotransferase (ALT/SGPT) 14U/L (14-59) Alkaline Phosphatase 83U/L (46-116) Creatine Kinase 79U/L (26-192) Creatine Kinase MB (Mass) 1.0ng/mL (0.0-3.6) Creatine Kinase MB Relative Index 1.3% (0-4) Troponin I Quantitative 0.033ng/mL (0.000-0.055) Total Protein 8.1g/dL (6.4-8.2) Albumin 3.1g/dL (3.4-5.0) Albumin/Globulin Ratio 0.6 (1.0-1.7) Lipase 183U/L (73-393) VTE Prophylaxis Ordered VTE Prophylaxis Devices: Yes VTE Pharmacological Prophylaxi: Yes Assessment/Plan Assessment/Plan chronic Diarrhea, + cdiff, on vanco chronic now GILES with Vasomotor, dehydration hypokalemia CKD 3 ETOH dependence chronic abd pain GAstroparesis HTN, uncontrolled Nausea/Vomiting with gastroparesis possibly Hx chronic UTI Neurogenic bladder self caths intermittently 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 GI consult 2. dilaudid po prn. 0.5mg iv q4h prn . 3. ivf 4. replete K ptot need cont vanco bid for 1 month lisinopril incease to 20mg daily for now dvt ppx NIA MANLEY MD Sep 08, 2016 19:02
[2016-09-08 19:16] VITALS: BP 157/97
[2016-09-08] MEDS: POTASSIUM CHLORIDE 10MEQ 100 ML IV SCH ×2 (19:30→20:30)
[2016-09-08] MEDS ORDERED: POTASSIUM CHLORIDE 20 MEQ TABLET.ER. PO ONE (21:00)
[2016-09-08] MEDS: METOCLOPRAMIDE 10 MG TABLET PO SCH (22:07)
[2016-09-08] MEDS: VANCOMYCIN 125 MG/2.5 ML ORAL SOLUTION. PO SCH (22:17)
[2016-09-08] MEDS: HEPARIN PF for SUB-Q USE 5,000 UNIT/0.5 ML VIAL. SQ SCH (22:17)
[2016-09-08] MEDS: HYDROMORPHONE 2 MG/ML VIAL. IV PRN (22:20)
[2016-09-08] MEDS: POTASSIUM CL 20MEQ D5-0.9%NACL 1,000 ML IV SCH (22:41)
[2016-09-08 23:18] VITALS: BP 170/109
[2016-09-08] MEDS: ALPRAZOLAM 0.5 MG TABLET PO PRN (23:32)
[2016-09-09 03:00] VITALS: BP 151/92
[2016-09-09] MEDS: HYDROMORPHONE 2 MG/ML VIAL. IV PRN (03:24)
[2016-09-09 04:06] LABS: BARBITURATES NEG (NEG); BENZODIAZEPINES POS (NEG); CANNABINOIDS NEG (NEG); COCAINE NEG (NEG); METHADONE NEG (NEG); OPIATES POS (NEG); PHENCYCLIDINE NEG (NEG)
[2016-09-09 04:07] LABS: ETHANOL, URINE NEG (NEG)
[2016-09-09] MEDS: HEPARIN PF for SUB-Q USE 5,000 UNIT/0.5 ML VIAL. SQ SCH (06:00)
[2016-09-09 07:00] LABS: CALCIUM 8.4 mg/dL (8.5-10.1); CREATININE 2.2 mg/dL (0.6-1.0); GFR 22.8; POTASSIUM 3.8 mmol/L (3.5-5.1)
[2016-09-09 07:02] LABS: BASO # 0.1 x10^3/uL (0.0-0.2); BASO % 1 % (0-3); EOS % 3 % (0-3); HEMATOCRIT 28.8 % (36.0-47.0); HEMOGLOBIN 9.2 g/dL (12.0-15.5); LYMPH # 3.4 x10^3/uL (1.0-4.8); LYMPH % 32 % (24-48); MEAN CORPUSCULAR HEMOGLOBIN 30 pg (25-35); MEAN CORPUSCULAR HGB CONC 32 g/dL (31-37); MEAN CORPUSCULAR VOLUME 93 fL (79-100); MONO % 12 % (0-9); NEUT % 53 % (31-73); PLATELET COUNT 316 x10^3/uL (140-400); RED BLOOD COUNT 3.11 x10^6/uL (3.50-5.40); RED CELL DISTRIBUTION WIDTH 15.2 % (11.5-14.5); WHITE BLOOD COUNT 10.7 x10^3/uL (4.0-11.0)
[2016-09-09 07:25] VITALS: BP 169/105
[2016-09-09] MEDS ORDERED: PANTOPRAZOLE 40 MG TABLET. PO SCH (07:30)
[2016-09-09] MEDS: FENTANYL PF 100 MCG/2 ML VIAL. IV PRN (08:11)
[2016-09-09] MEDS: METOCLOPRAMIDE 10 MG TABLET PO SCH ×2 (08:13→12:29)
[2016-09-09] MEDS ORDERED: ESCITALOPRAM 10 MG TABLET. PO SCH (09:00)
[2016-09-09] MEDS ORDERED: LISINOPRIL 20 MG TABLET PO SCH (09:00)
[2016-09-09] MEDS: POTASSIUM CL 20MEQ D5-0.9%NACL 1,000 ML IV SCH (09:20)
[2016-09-09] MEDS: VANCOMYCIN 125 MG/2.5 ML ORAL SOLUTION. PO SCH (10:09)
[2016-09-09] MEDS: ALPRAZOLAM 0.5 MG TABLET PO PRN (10:10)
--- NOTE | 2016-09-09 10:33 | PDOC2 ---
GI CONSULT Date Date/Time DATE: 09/09/16 TIME: 10:26 Providers Attending Physician Ba Mcgill MD Referring Physician Consulting Physician Dr. Howe History of Present Illness HPI REcurrent n/v and diarrhea just a few days after d/c from prolonged hospitalization- several issues- she thinks from "bad" food but on no restriction regarding diet- has not picked up vanco or Reglan yet inspite of similar issue last admission with inadequate C diff treatment. Denies recent alcohol and urine is negative History Past Medical History pancreatitis gastroparesis C diff see last admission Past Surgical History no change from last consultation Past Surgical History: Total knee replacement, Tubal Ligation, Other Review of Systems Constitutional: yes: weakness Gastrointestinal: Yes: diarrhea, nausea, vomiting Allergies Allergies Allergies Coded Allergies Type Severity Reaction Last Updated Verified levofloxacin Allergy Intermediate 08/16/16 Yes morphine Allergy Intermediate tolerates Dilaudid 07/26/16 Yes I S O L A T I O N *CONTACT* Allergy Unknown 07/26/16 Yes diphenhydramine HCl Adverse Reaction Intermediate "Jittery on the inside" 07/26 Yes Medications Medications Current Medications Sodium Chloride (Iv Sodium Chloride 0.9% 1000ml Bag) 1,000 ml @ 1,000 mls/hr Q1H IV Last administered on 09/08/16 14:07; Start 09/08/16 at 14:00; Stop 05/17 at 14:59; Status DC Metoclopramide HCl (Reglan) 10 mg 1X ONCE IV Last administered on 09/08/16 14 :07; Start 09/08/16 at 14:00; Stop 09/08/16 at 14:01; Status DC Hydromorphone HCl (Dilaudid) 1 mg 1X ONCE IV Last administered on 09/08/16 14 :06; Start 09/08/16 at 14:00; Stop 09/08/16 at 14:01; Status DC Potassium Chloride (KCl Oral Soln) 40 meq 1X ONCE PO Last administered on 09/08 15:15; Start 09/08/16 at 15:15; Stop 09/08/16 at 15:16; Status DC Fentanyl Citrate 50 mcg 50 mcg PRN Q1HR PRN IV PAIN Last administered on 08:11; Start 09/08/16 at 16:30; Stop 09/09/16 at 16:29 Sodium Chloride (Iv Sodium Chloride 0.9% 1000ml Bag) 1,000 ml @ 100 mls/hr Q10H IV Last administered on 09/08/16 17:24; Start 09/08/16 at 16:20; Stop 05/17 at 20:33; Status DC Metoclopramide HCl (Reglan) 10 mg PRN Q6HRS PRN IV NAUSEA/VOMITING; Start 09/08 at 16:30; Stop 09/08/16 at 19:02; Status DC Alprazolam (Xanax) 0.5 mg PRN BID PRN PO ANXIETY / AGITATION Last administered on 09/09/16 10:10; Start 09/08/16 at 19:00 Escitalopram Oxalate (Lexapro) 10 mg DAILY PO Last administered on 09/09/16 08 :13; Start 09/09/16 at 09:00 Hydromorphone HCl (Dilaudid) 1 mg PRN Q4HRS PRN PO PAIN Last administered on 10:10; Start 09/08/16 at 19:00 Lisinopril (Prinivil) 20 mg DAILY PO Last administered on 09/09/16 08:12; Start 09/09/16 at 09:00 Metoclopramide HCl (Reglan) 10 mg QIDACHS PO Last administered on 09/09/16 08: 13; Start 09/08/16 at 21:00 Pantoprazole Sodium (Protonix) 40 mg DAILYAC PO Last administered on 09/09/16 08:13; Start 09/09/16 at 07:30 Acetaminophen (Tylenol) 650 mg PRN Q6HRS PRN PO MILD PAIN / TEMP; Start at 19:00 Ondansetron HCl (Zofran) 4 mg PRN Q6HRS PRN IV NAUSEA/VOMITING; Start 09/08/16 at 19:00 Vancomycin HCl 125 mg BID PO Last administered on 09/09/16 10:09; Start at 21:00; Stop 10/08/16 at 09:01 Hydromorphone HCl 0.5 mg 0.5 mg PRN Q4HRS PRN IV PAIN; Start 09/08/16 at 19:00 ; Stop 09/08/16 at 19:05; Status DC Potassium Chloride/Dextrose/ Sod Cl 1,000 ml @ 75 mls/hr [id number] IV Last administered on 09/08/16 22:41; Start 09/08/16 at 20:00 Potassium Chloride (KCl Premix 10meq) 100 ml @ 100 mls/hr Q1H IV ; Start at 19:30; Stop 09/08/16 at 20:33; Status DC Heparin Sodium (Porcine) 5,000 unit Q8HRS SQ Last administered on 09/08/16 22: 17; Start 09/08/16 at 22:00 Hydromorphone HCl (Dilaudid) 0.25 mg PRN Q4HRS PRN IV PAIN Last administered on 09/09/16 03:24; Start 09/08/16 at 19:15 Potassium Chloride (Klor-Con) 40 meq 1X ONCE PO Last administered on 22:08; Start 09/08/16 at 21:00; Stop 09/08/16 at 21:01; Status DC Active Scripts Active Dilaudid (Hydromorphone Hcl) 2 Mg Tablet 1 Mg PO PRN Q4HRS PRN Xanax (Alprazolam) 0.5 Mg Tablet 1 Tab PO BID PRN Nexium 24Hr (Esomeprazole Magnesium) 20 Mg Capsule.dr 20 Mg PO DAILY Escitalopram Oxalate 10 Mg Tablet 1 Tab PO DAILY Reported Reglan (Metoclopramide Hcl) 10 Mg Tablet 10 Ml PO QID Lisinopril 10 Mg Tablet 1 Tab PO DAILY Physical Exam Physical Exam VSS alert in NO distress chest- clear abd- soft non tender Labs Labs Laboratory Tests Test 09/08/16 14:10 09/09/16 01:40 09/09/16 06:30 White Blood Count 14.6x10^3/uL (4.0-11.0) 10.7x10^3/uL (4.0-11.0) Red Blood Count 3.48x10^6/uL (3.50-5.40) 3.11x10^6/uL (3.50-5.40) Hemoglobin 10.5g/dL (12.0-15.5) 9.2g/dL (12.0-15.5) Hematocrit 31.5% (36.0-47.0) 28.8% (36.0-47.0) Mean Corpuscular Volume 91fL (79-100) 93fL (79-100) Mean Corpuscular Hemoglobin 30pg (25-35) 30pg (25-35) Mean Corpuscular Hemoglobin Concent 33g/dL (31-37) 32g/dL (31-37) Red Cell Distribution Width 14.7% (11.5-14.5) 15.2% (11.5-14.5) Platelet Count 382x10^3/uL (140-400) 316x10^3/uL (140-400) Neutrophils (%) (Auto) 68% (31-73) 53% (31-73) Lymphocytes (%) (Auto) 18% (24-48) 32% (24-48) Monocytes (%) (Auto) 13% (0-9) 12% (0-9) Eosinophils (%) (Auto) 0% (0-3) 3% (0-3) Basophils (%) (Auto) 1% (0-3) 1% (0-3) Neutrophils # (Auto) 10.0x10^3uL (1.8-7.7) 5.6x10^3uL (1.8-7.7) Lymphocytes # (Auto) 2.6x10^3/uL (1.0-4.8) 3.4x10^3/uL (1.0-4.8) Monocytes # (Auto) 1.8x10^3/uL (0.0-1.1) 1.3x10^3/uL (0.0-1.1) Eosinophils # (Auto) 0.0x10^3/uL (0.0-0.7) 0.3x10^3/uL (0.0-0.7) Basophils # (Auto) 0.1x10^3/uL (0.0-0.2) 0.1x10^3/uL (0.0-0.2) Sodium Level 139mmol/L (136-145) 140mmol/L (136-145) Potassium Level 2.8mmol/L (3.5-5.1) 3.8mmol/L (3.5-5.1) Chloride Level 94mmol/L (98-107) 101mmol/L (98-107) Carbon Dioxide Level 38mmol/L (21-32) 31mmol/L (21-32) Anion Gap 7 (6-14) 8 (6-14) Blood Urea Nitrogen 15mg/dL (7-20) 11mg/dL (7-20) Creatinine 2.5mg/dL (0.6-1.0) 2.2mg/dL (0.6-1.0) Estimated GFR (Cockcroft-Gault) 19.6 22.8 BUN/Creatinine Ratio 6 (6-20) Glucose Level 121mg/dL (70-99) 98mg/dL (70-99) Calcium Level 9.4mg/dL (8.5-10.1) 8.4mg/dL (8.5-10.1) Magnesium Level 1.9mg/dL (1.8-2.4) Total Bilirubin 0.3mg/dL (0.2-1.0) Aspartate Amino Transf (AST/SGOT) 22U/L (15-37) Alanine Aminotransferase (ALT/SGPT) 14U/L (14-59) Alkaline Phosphatase 83U/L (46-116) Creatine Kinase 79U/L (26-192) Creatine Kinase MB (Mass) 1.0ng/mL (0.0-3.6) Creatine Kinase MB Relative Index 1.3% (0-4) Troponin I Quantitative 0.033ng/mL (0.000-0.055) Total Protein 8.1g/dL (6.4-8.2) Albumin 3.1g/dL (3.4-5.0) Albumin/Globulin Ratio 0.6 (1.0-1.7) Lipase 183U/L (73-393) Urine Opiates Screen Pos (NEG) Urine Methadone Screen Neg (NEG) Urine Barbiturates Neg (NEG) Urine Phencyclidine Screen Neg (NEG) Urine Amphetamine/Methamphetamine Neg (NEG) Urine Benzodiazepines Screen Pos (NEG) Urine Cocaine Screen Neg (NEG) Urine Cannabinoids Screen Neg (NEG) Urine Ethyl Alcohol Neg (NEG) Assessment Assessment Recurrent n/v and diarrhea- lots of potential triggers- has not picked up beck nelson or Reglan in spite of similar issues precipitating last admission. Also has no knowledge of any diet restrictions- ate meatballs after d/c - thinks it might have triggered food poisioning but more likely, high fat meal with no reglan or vanco is the issue Problems: Plan Plan make sure she is aware of diet - gastroparesis restrictions make sure she gets vanco as outpt make sure she gets reglan as outpt No further Gi suggestions Thank you for allowing us to participate in the care of your patient. We will continue to follow the patient with you and provide an appropriate recommendation as it becomes available. REYNALDO HOWE MD Sep 09, 2016 10:33
[2016-09-09 10:51] VITALS: BP 136/87
[2016-09-09] MEDS ORDERED: METO10TA81 PO (11:32)
--- NOTE | 2016-09-09 14:13 | PDOC3 ---
Discharge Summary 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 pt also like to lie to different staff , docs and then require for dilaudid all the time and refuse to leave the hosp. cannot send to SNF since she stayed in hosp too long and too many times and likely SNF too many times too, used up her insurance coverage. She was found Cr 2.5 from 1.9 when dced last week, with low k, likely 2/2 dehydration. Pt feels better overnight for N/V. cr better with ivf. dc home with lisinopril 40mg daily. reglan prescript given. need to take vanco for 1 month, but cannot afford it, not sure why. her daughter should pay for her. dc time 40min GEN.: No apparent distress. Alert and oriented. HEENT: Head is normocephalic, atraumatic NECK: Supple. LUNGS: Clear to auscultation. HEART: RRR, S1, S2 present. Peripheral pulses intact ABDOMEN: Soft, nontender. Positive bowel sounds. EXTREMITIES: Without any cyanosis. NEUROLOGIC: Normal speech, normal tone PSYCHIATRIC: Normal affect, normal mood. SKIN: No ulcerations Patient History: Cancer confirmed (situation) 32 MOTHER, Onset:52 Family history: Angina (situation) 32 MOTHER Family history: Autoimmune disease (situation) 32 MOTHER Family history: Cardiomyopathy (situation) 32 MOTHER Family history: Cardiovascular disease (situation) 32 MOTHER Family history: Depression (situation) 32 MOTHER Family history: Gastrointestinal disease (situation) 32 MOTHER Family history: Hypertension (situation) 32 MOTHER Stroke 33 FATHER, Onset:77 No Family History of: Family history: Allergy Family history: Alzheimer's disease (situation) Family history: Asthma Family history: Blood disorder (situation) Family history: Breast disease (situation) Family history: Crohn's disease (situation) Family history: Diabetes mellitus (situation) Family history: Epilepsy (situation) Family history: Gallbladder disease (situation) Family history: Hemophilia (situation) Family history: Obesity (situation) Family history: Schizophrenia (situation) Family history: Sickle cell trait (situation) Family history: Suicide (situation) Family history: neoplasm - trachea/bronchus/lung (situation) Family history: neoplasm - urinary organ (situation) Family history: neoplasm of skin (situation) Malignant hyperthermia Sleep apnea Problems: Disposition home CONDITION AT DISCHARGE: Improved, Stable Diet regular Scheduled Escitalopram Oxalate (Escitalopram Oxalate) 1 TAB PO DAILY Esomeprazole Magnesium (Nexium 24Hr) 20 MG PO DAILY Lisinopril (Lisinopril) 1 TAB PO DAILY (Reported) Metoclopramide Hcl (Reglan) 10 ML PO QID Scheduled PRN Alprazolam (Xanax) 1 TAB PO BID PRN PRN ANXIETY / AGITATION Hydromorphone Hcl (Dilaudid) 1 MG PO PRN Q4HRS PRN PRN PAIN Discontinued Medications ([Vancomycin Hcl]) 125 MG PO QID Ciprofloxacin Hcl (Cipro) 250 MG PO BID Oxycodone Hcl (Oxycodone Hcl) 5 MG PO Q8H PRN PRN severe pain Follow Up pcp in 2 weeks NIA MANLEY MD Sep 09, 2016 14:13
[2016-09-10] MEDS ORDERED: LISINOPRIL 40 MG TABLET. PO SCH (09:00)
== END 2016-09-09 13:30 | disposition home or self-care (01) | DRG 683 ==
LOC: ER 12:53 → 6 SOUTH 15:25
PROVIDERS: ADMIT Internal Medicine; ATTEND Internal Medicine
DX: N17.0 Acute kidney failure with tubular necrosis (principal); A04.7 Enterocolitis due to Clostridium difficile; N18.3 Chronic kidney disease, stage 3 (moderate); I12.9 Hypertensive chronic kidney disease with stage 1 through stage 4 chronic kidney disease, or unspecified chronic kidney disease; F10.20 Alcohol dependence, uncomplicated; M19.90 Unspecified osteoarthritis, unspecified site; F41.9 Anxiety disorder, unspecified; Z96.652 Presence of left artificial knee joint; E87.6 Hypokalemia; G89.29 Other chronic pain; K31.84 Gastroparesis; F32.9 Major depressive disorder, single episode, unspecified; Z96.659 Presence of unspecified artificial knee joint; F17.210 Nicotine dependence, cigarettes, uncomplicated; N31.9 Neuromuscular dysfunction of bladder, unspecified; E86.0 Dehydration; Z98.51 Tubal ligation status; Z81.8 Family history of other mental and behavioral disorders; Z82.0 Family history of epilepsy and other diseases of the nervous system; Z82.3 Family history of stroke; Z82.49 Family history of ischemic heart disease and other diseases of the circulatory system; Z82.5 Family history of asthma and other chronic lower respiratory diseases; Z83.3 Family history of diabetes mellitus; Z88.1 Allergy status to other antibiotic agents; Z88.5 Allergy status to narcotic agent; Z79.899 Other long term (current) drug therapy; Z87.440 Personal history of urinary (tract) infections
CPT/HCPCS: 36415; 80048; 80053; 82553; 83690; 83735; 84484; 85027; 87641; 96361; 96374; 96375; G0481; J1170; J2765; J3010; J7030; J8597; 99285-25

== ENCOUNTER 2016-09-11 15:59 | Inpatient (IN) | payer MEDICARE, MEDICAID ==
[~2016-09-11] VITALS: Ht 162.6 cm; Wt 65.3 kg
[2016-09-11] MEDS ORDERED: IV NORMAL SALINE 1000ML BAG 1,000 ML IV ONE (17:15)
[2016-09-11] MEDS ORDERED: ONDANSETRON PF 4 MG/2 ML VIAL. IV ONE (17:30)
[2016-09-11] MEDS ORDERED: VANCOMYCIN 125 MG/2.5 ML ORAL SOLUTION. PO ONE (17:30)
[2016-09-11 17:31] LABS: BASO % 0 % (0-3); EOS % 1 % (0-3); HEMATOCRIT 39.1 % (36.0-47.0); HEMOGLOBIN 12.6 g/dL (12.0-15.5); LYMPH # 4.1 x10^3/uL (1.0-4.8); LYMPH % 28 % (24-48); MEAN CORPUSCULAR HEMOGLOBIN 30 pg (25-35); MEAN CORPUSCULAR HGB CONC 32 g/dL (31-37); MEAN CORPUSCULAR VOLUME 92 fL (79-100); MONO % 9 % (0-9); NEUT % 61 % (31-73); PLATELET COUNT 439 x10^3/uL (140-400); RED BLOOD COUNT 4.26 x10^6/uL (3.50-5.40); RED CELL DISTRIBUTION WIDTH 15.5 % (11.5-14.5); WHITE BLOOD COUNT 14.6 x10^3/uL (4.0-11.0)
[2016-09-11 17:43] LABS: INR 1.1 (0.8-1.1); PROTHROMBIN TIME PATIENT 13.3 SEC (11.7-14.0)
[2016-09-11] MEDS ORDERED: HYDROMORPHONE 2 MG/ML VIAL. IV ONE (17:45)
[2016-09-11 17:51] LABS: CALCIUM 9.8 mg/dL (8.5-10.1); CREATININE 2.1 mg/dL (0.6-1.0)
[2016-09-11 18:02] LABS: ALBUMIN/GLOBULIN RATIO 0.6 (1.0-1.7); TOTAL BILIRUBIN 0.3 mg/dL (0.2-1.0); TOTAL PROTEIN 8.3 g/dL (6.4-8.2)
[2016-09-11] MEDS ORDERED: ACETAMINOPHEN 325 MG TABLET. PO PRN (19:15)
[2016-09-11] MEDS ORDERED: ONDANSETRON PF 4 MG/2 ML VIAL. IV PRN (19:15)
[2016-09-11] MEDS: FENTANYL PF 100 MCG/2 ML VIAL. IV PRN ×2 (19:32→22:17)
[2016-09-11] MEDS: IV NORMAL SALINE 1000ML BAG 1,000 ML IV SCH (20:22)
[2016-09-11] MEDS ORDERED: VANCOMYCIN 125 MG/2.5 ML ORAL SOLUTION. PO SCH (21:00)
--- NOTE | 2016-09-11 21:56 | PHYS DOC ---
Past Medical History Past Medical History: Alcoholism, Anxiety, Arthritis, Hypertension, Other Additional Past Medical Histor: c diff, chronic n/v/d & abdominal pain, gastritis, renal insufficiency Past Surgical History: Knee Replacement, Other Additional Past Surgical Histo: back and foot surger, LEFT KNEE REPLACEMENT X2 Alcohol Use: Occasionally Drug Use: Opiates Adult General Chief Complaint Chief Complaint: ABDOMINAL PAIN HPI HPI 61-year-old female who was recently in the hospital for 10 days secondary to Clostridium difficile colitis and chronic abdominal pain presents secondary to intractable diarrhea at home and more abdominal pain. She also states that she is supposed to be on 30 days of oral vancomycin which she states she cannot afford. When asked if she has taken her medication she states she has not because she is unable to afford it. She denies any melena or hematochezia or hematemesis. She states she's really not been eating or drinking because she can 't hold anything down. [] Review of Systems Review of Systems Constitutional: Denies fever or chills [] Eyes: Denies change in visual acuity, redness, or eye pain [] HENT: Denies nasal congestion or sore throat [] Respiratory: Denies cough or shortness of breath [] Cardiovascular: No additional information not addressed in HPI [] GI: Per history of present illness [] : Denies dysuria or hematuria [] Musculoskeletal: Denies back pain or joint pain [] Integument: Denies rash or skin lesions [] Neurologic: Denies headache, focal weakness or sensory changes [] Endocrine: Denies polyuria or polydipsia [] Current Medications Current Medications Current Medications Medications (Trade) Dose Ordered Sig/[facility] Start Time Stop Time Status Last Admin Dose Admin Acetaminophen (Tylenol) 650 mg PRN Q4HRS PRN 09/11/16 19:15 09/12/16 19:14 Fentanyl Citrate (Fentanyl 2ml Vial) 50 mcg PRN Q2HRS PRN 09/11/16 19:30 09/11/16 19:32 50 MCG Hydromorphone HCl (Dilaudid) 1 mg 1X ONCE 09/11/16 17:45 09/11/16 17:46 DC 09/11/16 17:43 1 MG Ondansetron HCl (Zofran) 4 mg 1X ONCE 09/11/16 17:30 09/11/16 17:31 DC 09/11/16 17:26 4 MG Ondansetron HCl 4 mg 4 mg PRN Q8HRS PRN 09/11/16 19:15 09/12/16 19:14 Sodium Chloride (Iv Sodium Chloride 0.9% 1000ml Bag) 1,000 ml @ 125 mls/hr Q8H 09/11/16 19:13 09/12/16 19:12 09/11/16 20:22 125 MLS/HR Vancomycin HCl 125 mg 1X ONCE 09/11/16 17:30 09/11/16 17:31 DC 09/11/16 17:27 125 MG Allergies Allergies Allergies Coded Allergies Type Severity Reaction Last Updated Verified levofloxacin Allergy Intermediate 08/16/16 Yes morphine Allergy Intermediate tolerates Dilaudid 07/26/16 Yes I S O L A T I O N *CONTACT* Allergy Unknown 07/26/16 Yes diphenhydramine HCl Adverse Reaction Intermediate "Jittery on the inside" 07/26 Yes Physical Exam Physical Exam Constitutional: Well developed, well nourished, no acute distress, non-toxic appearance. [] HENT: Normocephalic, atraumatic, bilateral external ears normal, oropharynx moist, no oral exudates, nose normal. [] Eyes: PERRLA, EOMI, conjunctiva normal, no discharge. [] Neck: Normal range of motion, no tenderness, supple, no stridor. [] Cardiovascular:Heart rate regular rhythm, no murmur [] Lungs & Thorax: Bilateral breath sounds clear to auscultation [] Abdomen: Diffuse tender to palp no rebound or guarding. [] Skin: Warm, dry, no erythema, no rash. [] Back: No tenderness, no CVA tenderness. [] Extremities: No tenderness, no cyanosis, no clubbing, ROM intact, no edema. [] Neurologic: Alert and oriented X 3, normal motor function, normal sensory function, no focal deficits noted. [] Psychologic: Affect normal, judgement normal, mood normal. [] Current Patient Data Vital Signs Vital Signs Date Time Temp Pulse Resp B/P Pulse Ox O2 Delivery O2 Flow Rate FiO2 09/11/16 17:43 Room Air 09/11/16 16:12 98.0 107 18 175/112 98 98.0 Lab Values Laboratory Tests Test 09/11/16 16:36 White Blood Count 14.6x10^3/uL (4.0-11.0) H Red Blood Count 4.26x10^6/uL (3.50-5.40) Hemoglobin 12.6g/dL (12.0-15.5) # Hematocrit 39.1% (36.0-47.0) # Mean Corpuscular Volume 92fL (79-100) Mean Corpuscular Hemoglobin 30pg (25-35) Mean Corpuscular Hemoglobin Concent 32g/dL (31-37) Red Cell Distribution Width 15.5% (11.5-14.5) H Platelet Count 439x10^3/uL (140-400) H Neutrophils (%) (Auto) 61% (31-73) Lymphocytes (%) (Auto) 28% (24-48) Monocytes (%) (Auto) 9% (0-9) Eosinophils (%) (Auto) 1% (0-3) Basophils (%) (Auto) 0% (0-3) Neutrophils # (Auto) 9.0x10^3uL (1.8-7.7) H Lymphocytes # (Auto) 4.1x10^3/uL (1.0-4.8) Monocytes # (Auto) 1.3x10^3/uL (0.0-1.1) H Eosinophils # (Auto) 0.1x10^3/uL (0.0-0.7) Basophils # (Auto) 0.0x10^3/uL (0.0-0.2) Prothrombin Time 13.3SEC (11.7-14.0) Prothrombin Time INR 1.1 (0.8-1.1) Sodium Level 136mmol/L (136-145) Potassium Level 4.0mmol/L (3.5-5.1) Chloride Level 97mmol/L (98-107) L Carbon Dioxide Level 25mmol/L (21-32) Anion Gap 14 (6-14) Blood Urea Nitrogen 15mg/dL (7-20) Creatinine 2.1mg/dL (0.6-1.0) H Estimated GFR (Cockcroft-Gault) 24.0 BUN/Creatinine Ratio 7 (6-20) Glucose Level 102mg/dL (70-99) H Calcium Level 9.8mg/dL (8.5-10.1) Total Bilirubin 0.3mg/dL (0.2-1.0) Aspartate Amino Transferase (AST) 21U/L (15-37) Alanine Aminotransferase (ALT) 15U/L (14-59) Alkaline Phosphatase 82U/L (46-116) Total Protein 8.3g/dL (6.4-8.2) H Albumin 3.0g/dL (3.4-5.0) L Albumin/Globulin Ratio 0.6 (1.0-1.7) L Lipase 157U/L (73-393) Laboratory Tests 09/11/16 16:36 Laboratory Tests 09/11/16 16:36 EKG EKG [] Radiology/Procedures Radiology/Procedures [] Course & Med Decision Making Course & Med Decision Making Pertinent Labs and Imaging studies reviewed. (See chart for details) [ED course: Evaluation reveals 61-year-old chronically ill female with abdominal pain. She was given IV fluids and pain medicine during her stay in the MRSA from which did help alleviate her symptoms. Was noted that she had a 14 ,000 white count which is likely residual from her Clostridium differential still colitis. I was able to provide her with some oral vancomycin during her stay in the department. I spoke with Dr. [address] the patient well and agreed to accept her for admission to the hospital.] Hugo Disclaimer Dragon Disclaimer This electronic medical record was generated, in whole or in part, using a voice recognition dictation system. Departure Departure Impression: Primary Impression: C. difficile diarrhea Disposition: ADMITTED INPATIENT Admitting Physician: Other (Mary Janeuscmera) Condition: GUARDED Referrals: UNKNOWN PCP NAME (PCP) EARLE ARREOLA DO Sep 11, 2016 21:56
--- NOTE | 2016-09-11 22:06 | ACF ---
Admission Forms Criteria GASTROENTEROLOGY [facility] Clinical Indications for Admission to Inpatient Care (Place 'X' for any and all applicable criteria): Hospital admission is needed for appropriate care of the patient because of ANY ONE of the following: [ ]I. Hemoperitoneum(7) [ ]II. Ascites requiring acute treatment indicated by ANY ONE of the following( 8)(9): [ ]a) Hemodynamic instability remaining after emergency or observation level care (as appropriate) [ ]b) Peritoneal signs present (eg, abdominal rigidity, rebound tenderness, absent bowel sounds) [ ]c) Tachypnea, Hypoxemia, or other respiratory symptoms remain after emergency or observation level care (as appropriate) [ ]d) Suspected infected ascites as indicated by ANY ONE of the following: [ ]i) Temperature greater than 100 degrees F (37.8 degrees C) [ ]ii) Abdominal pain or tenderness not relieved by paracentesis [ ]iii) Systemic signs of infection (eg, elevated WBC count, fever) [ ]iv) Ascitic fluid analysis consistent with infection ( eg, elevated WBC count): [ ]v) Vital sign abnormality [ ]III. Suspected acute intra-abdominal process indicated by ANY ONE of the following(1)(2)(3)(4)(5): [ ]a) Hemodynamic instability [ ]b) Peritoneal signs present (eg, abdominal rigidity, rebound tenderness, absent bowel sounds) [ ]c) Bowel obstruction suspected (eg, severe vomiting, abdominal distension) [ ]d) Suspected mesenteric ischemia or ischemic colitis(6) [ ]e) Other signs or symptoms of acute abdominal disease (eg, severe pain, free air): [ ]IV. Severe liver disease indicated by ANY ONE of the following(8)(9)(10)(11)( 12)(13)(14): [ ]a) Acute hepatitis (eg, transaminase level greater than 1000 IU/L) [ ]b) Acute elevation of prothrombin time to more than 50% above normal or INR greater than 1.5 [ ]c) Bilirubin greater than 20 mg/dL (342 micromoles/L) (15) [ ]d) New-onset or worsening hepatic encephalopathy [ ]e) Acute liver necrosis [ ]f) Vomiting or dehydration that is severe of persistent [ ]g) Hemodynamic instability due to liver disease [ ]h) Acute renal failure [ ]i) Hepatic abscess [ ]j) Dehydration that is severe or persistent [ ]k) Hepatic hydrothorax(21) [ ]l) Other indications of severe liver disease (eg, persistent fever , ingestion of hepatotoxin) [X]V. Severe diarrhea indicated by ANY ONE of the following(17)(18)(19)(20)(21)( 22)(23): [ ]a) High fever or other high-risk infection situation [ ]b) Intractable bloody diarrhea (eg, more than 6 bloody stools per day) [X]c) Suspected Clostridium difficile-associated diarrhea(24) [ ]d) Change in mental status that persists after emergency or observation level care (as appropriate) [ ]e) Severe dehydration (eg, greater than 9% loss of body weight in children) [ ]f) Inability to maintain hydration [ ]g) Peritoneal signs present (eg, abdominal rigidity, rebound tenderness, absent bowel sounds) [ ]h) Abdominal ischemia suspected(6) [ ]i) Hemodynamic instability that persists after emergency or observation level care (as appropriate) [ ]j) Severe electrolyte abnormalities requiring inpatient care [ ]k) Acute renal failure [ ]. Suspected toxic megacolon(5)(6) [ ]VII.Severe dysphagia indicated by ANY ONE of the following(25)(26): [ ]a) Suspected esophageal perforation or fistula(27) [ ]b) Suspected cause that requires inpatient care (eg, caustic ingestion, severe esophagitis) (28) [ ]c) Severe dehydration (eg, greater than 9% loss of body weight in children) [ ]d) Inability to manage secretions or maintain hydration [ ]e) Hemodynamic instability that persists after emergency or observation level care (as appropriate) [ ]f) Severe electrolyte abnormalities requiring inpatient care [ ]g) Acute renal failure [ ]VIII.Vomiting and ANY ONE of the following (29)(30)(31)(32): [ ]a) High fever or other high-risk infection situation [ ]b) Change in mental status that persists after emergency or observation level care (as appropriate) [ ]c) Severe dehydration (e.g., greater than 9% loss of body weight in children) [ ]d) Peritoneal signs present (e.g., abdominal rigidity, rebound tenderness, absent bowel sounds) [ ]e) Hemodynamic instability that persists after emergency or observation level care (as appropriate) [ ]f) Severe electrolyte abnormalities requiring inpatient care [ ]g) Acute renal failure [ ]h) Bowel obstruction suspected (e.g., severe vomiting, abdominal distension) [ ]i) Vomiting that is severe or persistent after medical treatment [ ]IX. Significant dehydration indicated by ANY ONE of the following(23)(24)(25) [ ]a) Clinical findings of severe dehydration indicated by ANY ONE of the following: [ ]i) Acute loss of weight from baseline (5% of body weight in adults, 9% in pediatric patients) [ ]ii) Hemodynamic instability [ ]iii) Acute renal failure [ ]iv) Serum sodium greater than 150 mEq/L (mmol/L) [ ]b) Dehydration that is persistent indicated by ALL of the following: [ ]i) Oral rehydration therapy not tolerated or insufficient to adequately correct dehydration [ ]ii) Appropriate intravenous treatment (eg, fluids) does not readily correct dehydration hours of (ie, after 12 to 24 of treatment) [ ]X. Gastroparesis and ANY ONE of the following(37)(38)(39): [ ]a) Dehydration that is severe or persistent [ ]b) Severe electrolyte abnormalities requiring inpatient care [ ]c) Acute renal failure [ ]d) Vomiting that is severe or persistent [ ]XI. Complications of transplanted liver indicated by ANY ONE of the following (40)(41): [ ]a) Acute graft rejection requiring inpatient management (eg, intravenous immunosuppression)(42) [ ]b) Failure of transplanted liver as indicated by ANY ONE of the following: [ ]i) Acute hepatitis (eg, transaminase level greater than 1000 International Units per liter (IU/L)) [ ]ii) Acute elevation of prothrombin time to more than 50% above baseline or INR greater than 1.5 [ ]iii) Bilirubin greater than 20 mg/dL (342 micromoles/L) [ ]iv) New-onset or worsening hepatic encephalopathy [ ]v) Acute elevation of serum ammonia level (eg, greater than 210 mcg/dL (150 micromoles/L)) [ ]vi) Acute liver necrosis [ ]c) Infection requiring inpatient management (eg, Hemodynamic instability, need for intravenous antimicrobial treatment)(43)(44)(45)(46)(47)(48)(49)(50) [ ]d) Other complication of transplanted liver (eg, thrombosis, autoimmune hepatitis, variceal bleeding) requiring inpatient management(51)(52) [ ]XII Complications of transplanted pancreas indicated by ANY ONE of the following(53): [ ]a) Acute graft rejection requiring inpatient management (eg, intravenous immunosuppression)(42)(54) [ ]b) Failure of transplanted pancreas as indicated by ANY ONE of the following: [ ]i) Serum amylase greater than 3 times the upper limit of normal or baseline [ ]ii) Serum lipase greater than 3 times the upper limit of normal or baseline [ ]iii) Imaging findings consistent with pancreatic inflammation or necrosis [ ]c) Infection requiring inpatient management (eg, Hemodynamic instability, need for intravenous antimicrobial treatment)(43)(44)(45)(46)(47)(48)(49)(50) [ ]d) Other complication of transplanted liver (eg, thrombosis, autoimmune hepatitis, variceal bleeding) requiring inpatient management(51)(52) [ ]X. Gastroenterology condition and ALL of the following: [ ]a) Symptom or finding for which emergency and observation care have failed or are not considered appropriate (Also use General Criteria: Observation Care as appropriate) [ ]b) Presence of ANY ONE of the following: [ ]i) A General Admission Criteria [ ]ii) A Pediatric General Admission Criteria. The original [facility] [email or web address] content created by [employer] has been revised. The portions of the content which have been revised are identified through the use of italic text or in bold,and [facility] has neither reviewed nor approved the modified material. All other unmodified content is copyright [facility]. Please see references footnoted in the original [facility] edition 2016 Admission Criteria Met?: Yes JENNIFER TRIMBLE Sep 11, 2016 22:06
[2016-09-11] MEDS: VANCOMYCIN 125 MG/2.5 ML ORAL SOLUTION. PO SCH (22:18)
[2016-09-11 22:42] VITALS: BP 195/121
[2016-09-11] MEDS ORDERED: hydrALAZINE 20 MG/ML VIAL. IVP PRN (23:15)
[2016-09-11] MEDS: HYDROMORPHONE 2 MG TABLET. PO PRN (23:45)
[2016-09-11] MEDS: ALPRAZOLAM 0.5 MG TABLET PO PRN (23:45)
--- NOTE | 2016-09-11 23:57 | HP ---
ADMIT DATE: 09/11/2016 CHIEF COMPLAINT: Abdominal pain, diarrhea. HISTORY OF PRESENT ILLNESS: The patient is a 61-year-old woman with chronic C. diff infection who had been admitted for diarrhea, nausea, vomiting multiple times in recent past. She had been admitted here in the hospital recently for C. diff colitis, had been discharged on p.o. vancomycin, but was unable to afford medications, therefore never filled her script. She now once again presents with abdominal pain, copious diarrhea, mild nausea, vomiting without any blood in bowel movements or emesis. She has not been eating and drinking well because of her vomiting. In the Emergency Room, she was found once again with leukocytosis, elevated creatinine and admitted for further management of her C. diff. PAST MEDICAL HISTORY: C. diff colitis with diffuse abdominal pain, gastritis, alcoholism, osteoarthritis status post back surgery as well as knee replacement and foot surgery. Renal insufficiency. FAMILY HISTORY: No known family history. SOCIAL HISTORY: Currently living by herself, but her daughter's family preparing to move in with her. History of severe alcohol use, has been dry since May and no tobacco use. ALLERGIES: LEVOFLOXACIN, MORPHINE AND BENADRYL. MEDICATIONS: MAR reconciled with home medications. REVIEW OF SYSTEMS: Positive as per HPI with diarrhea, some nausea and diffuse abdominal pain. She does have chronic lower back pain, but has been minimizing her narcotic use. Rest of organ system review is essentially negative save for generalized malaise and weakness. PHYSICAL EXAMINATION: VITAL SIGNS: From today show a blood pressure of 195/121, heart rate of 95, respiratory rate at 18. She is afebrile. GENERAL: This is an ill-appearing 61-year-old woman, alert and oriented, in no acute distress. HEENT: Shows no scleral icterus. NECK: Supple. LUNGS: Fairly clear anteriorly. HEART: Regular rate and rhythm. ABDOMEN: Has positive bowel sounds, soft, minimal tenderness to palpation throughout. EXTREMITIES: Show no edema. SKIN: Warm, soft and dry without any rashes. LABORATORY DATA: CBC with a WBC of 14.6, hemoglobin 12.6, platelets of 439, normal differential. Chemistries with a BUN and creatinine of 15 and 2.1, which is slightly elevated over her baseline of 1.6-1.8. Electrolytes are within normal limits today. Calcium at 9.8, total bilirubin 0.3. LFTs otherwise normal. Albumin at 3.0, lipase at 157. IMAGING: None obtained. The patient had been in the hospital with CT of the abdomen and pelvis on 08/30/2016, at which time no acute intra-abdominal or pelvic process was seen. ASSESSMENT AND PLAN: The patient is a 61-year-old woman with C. diff for which she unfortunately is unable to afford the appropriate antibiotics. We will have to elucidate if Flagyl may be a cheaper option for her. Given the choice between none or a second choice antibiotic, a second choice clearly would be preferable. We will gently hydrate. No other issues save for hypertension are at play currently. We will restart her home medications. Add hydralazine p.r.n. Anticipate discharge within the next couple of days. Continue on p.o. narcotics only. MARK MONTES MD DR: MIKE/nts JOB#: [id number] / [id number] GREGORY
[2016-09-12 03:00] VITALS: BP 141/103
[2016-09-12] MEDS: IV NORMAL SALINE 1000ML BAG 1,000 ML IV SCH ×2 (03:13→17:13)
[2016-09-12] MEDS: HYDROMORPHONE 2 MG TABLET. PO PRN ×5 (03:56→20:48)
[2016-09-12] MEDS: METRONIDAZOLE 500 MG TABLET. PO SCH ×3 (05:37→23:55)
[2016-09-12 06:11] LABS: BASO # 0.2 x10^3/uL (0.0-0.2); BASO % 1 % (0-3); EOS % 3 % (0-3); HEMATOCRIT 33.4 % (36.0-47.0); HEMOGLOBIN 10.7 g/dL (12.0-15.5); LYMPH # 3.3 x10^3/uL (1.0-4.8); LYMPH % 27 % (24-48); MEAN CORPUSCULAR HEMOGLOBIN 30 pg (25-35); MEAN CORPUSCULAR HGB CONC 32 g/dL (31-37); MEAN CORPUSCULAR VOLUME 93 fL (79-100); MONO % 12 % (0-9); NEUT % 57 % (31-73); PLATELET COUNT 386 x10^3/uL (140-400); RED BLOOD COUNT 3.59 x10^6/uL (3.50-5.40); RED CELL DISTRIBUTION WIDTH 14.8 % (11.5-14.5); WHITE BLOOD COUNT 12.2 x10^3/uL (4.0-11.0)
--- NOTE | 2016-09-12 06:11 | EKG ---
[facility] [address] [place] [address] Test Date: 2016-09-11 Test Time: 16:33:36 Pat Name: SANTI HERRON Department: Room: 524 1 Gender: F Pet Caregiver: / : 1955 Requested By: MARK MONTES Order Number: [id number] Reading MD: Julieta Wu Measurements Intervals Hope Rate: 98 P: 34 LA: 128 QRS: 7 QRSD: 68 T: 22 QT: 376 QTc: 482 Interpretive Statements SINUS RHYTHM. MISSING LEAD V 4. OTHERWISE NORMAL EKG. Electronically Signed On 09-13-2016 21:34:43 CDT by Julieta Wu
[2016-09-12 06:12] LABS: GFR 25.4; POTASSIUM 4.1 mmol/L (3.5-5.1)
[2016-09-12] MEDS ORDERED: PANTOPRAZOLE 40 MG TABLET. PO SCH (07:30)
[2016-09-12 08:44] VITALS: BP 187/112
[2016-09-12] MEDS: ESCITALOPRAM 10 MG TABLET. PO SCH (09:08)
[2016-09-12] MEDS: LISINOPRIL 10 MG TABLET PO SCH (09:09)
[2016-09-12] MEDS: VANCOMYCIN 125 MG/2.5 ML ORAL SOLUTION. PO SCH ×4 (09:09→20:47)
[2016-09-12] MEDS: ALPRAZOLAM 0.5 MG TABLET PO PRN ×2 (09:31→21:01)
--- NOTE | 2016-09-12 10:00 | PDOC ---
Subjective: Subjective: Discharged 09/09. Readmitted through ER last night w/ n/v, abd pain, diarrhea. Says unable to afford vanco as outpatient ($130). Says urinating okay at home but hasn't used cath. Objective: Objective: See previous GI consults. Vital Signs: Vital Signs Date Time Temp Pulse Resp B/P Pulse Ox O2 Delivery O2 Flow Rate FiO2 09/12/16 09:31 97 Room Air 09/12/16 09:09 96 187/112 09/12/16 08:44 98.1 16 98.1 Labs: Laboratory Tests Test 09/11/16 16:36 09/12/16 05:00 White Blood Count 14.6x10^3/uL 12.2x10^3/uL Red Blood Count 4.26x10^6/uL 3.59x10^6/uL Hemoglobin 12.6g/dL 10.7g/dL Hematocrit 39.1% 33.4% Mean Corpuscular Volume 92fL 93fL Mean Corpuscular Hemoglobin 30pg 30pg Mean Corpuscular Hemoglobin Concent 32g/dL 32g/dL Red Cell Distribution Width 15.5% 14.8% Platelet Count 439x10^3/uL 386x10^3/uL Neutrophils (%) (Auto) 61% 57% Lymphocytes (%) (Auto) 28% 27% Monocytes (%) (Auto) 9% 12% Eosinophils (%) (Auto) 1% 3% Basophils (%) (Auto) 0% 1% Neutrophils # (Auto) 9.0x10^3uL 6.9x10^3uL Lymphocytes # (Auto) 4.1x10^3/uL 3.3x10^3/uL Monocytes # (Auto) 1.3x10^3/uL 1.5x10^3/uL Eosinophils # (Auto) 0.1x10^3/uL 0.3x10^3/uL Basophils # (Auto) 0.0x10^3/uL 0.2x10^3/uL Prothrombin Time 13.3SEC Prothromb Time International Ratio 1.1 Sodium Level 136mmol/L 135mmol/L Potassium Level 4.0mmol/L 4.1mmol/L Chloride Level 97mmol/L 101mmol/L Carbon Dioxide Level 25mmol/L 24mmol/L Anion Gap 14 10 Blood Urea Nitrogen 15mg/dL 15mg/dL Creatinine 2.1mg/dL 2.0mg/dL Estimated GFR (Cockcroft-Gault) 24.0 25.4 BUN/Creatinine Ratio 7 Glucose Level 102mg/dL 103mg/dL Calcium Level 9.8mg/dL 9.0mg/dL Total Bilirubin 0.3mg/dL Aspartate Amino Transf (AST/SGOT) 21U/L Alanine Aminotransferase (ALT/SGPT) 15U/L Alkaline Phosphatase 82U/L Total Protein 8.3g/dL Albumin 3.0g/dL Albumin/Globulin Ratio 0.6 Lipase 157U/L PE: GEN: ill, actively vomiting HEENT: atraumatic, PERRL LUNGS: CTAB HEART: RRR ABD: BS+, soft, epigastric tenderness EXTREMITY: no edema SKIN: no rashes, no jaundice NEURO/PSYCH: A & O 3 A/P: Recurrent n/v, abd pain, C Diff diarrhea -frequent admissions, apparently unable to afford vanco as outpatient -h/o reflux, gastroparesis, alcoholism, urinary retention -- On PO Flagyl and vanco. Will change to IV PPI and add IV Reglan, which usually helps her. ?bladder scan since this has been an issue previously ?SW consult ANNE-MARIE GARCIA Sep 12, 2016 10:00
[2016-09-12 11:00] VITALS: BP 126/81
--- NOTE | 2016-09-12 13:03 | PDOC ---
PROGRESS NOTES Chief Complaint Chief Complaint Abdominal pain, diarrhea - recurring C. Diff colitis with diffuse abdominal pain - recurring gastritis - alcoholism - osteoarthritis status post back surgery as well as knee replacement and foot surgery. - Renal insufficiency History of Present Illness History of Present Illness Patient was febrile T 101.0 at 0300, but is now afebrile. Continues to complain of diarrhea, nausea, and diffuse abdominal pain. Pt reiterated cost of vanco is a problem at home, and has not been able to take it as prescribed. Vitals Vitals Vital Signs Date Time Temp Pulse Resp B/P Pulse Ox O2 Delivery O2 Flow Rate FiO2 09/12/16 11:00 97.8 101 16 126/81 96 Room Air 97.8 Physical Exam General: Alert, Cooperative, No acute distress Heart: Regular rate, Normal S1, No murmurs Lungs: Clear Abdomen: Soft, No tenderness Extremities: No cyanosis, No edema Skin: No significant lesion Labs LABS Laboratory Tests Test 09/11/16 16:36 09/12/16 05:00 White Blood Count 14.6x10^3/uL (4.0-11.0) 12.2x10^3/uL (4.0-11.0) Red Blood Count 4.26x10^6/uL (3.50-5.40) 3.59x10^6/uL (3.50-5.40) Hemoglobin 12.6g/dL (12.0-15.5) 10.7g/dL (12.0-15.5) Hematocrit 39.1% (36.0-47.0) 33.4% (36.0-47.0) Mean Corpuscular Volume 92fL (79-100) 93fL (79-100) Mean Corpuscular Hemoglobin 30pg (25-35) 30pg (25-35) Mean Corpuscular Hemoglobin Concent 32g/dL (31-37) 32g/dL (31-37) Red Cell Distribution Width 15.5% (11.5-14.5) 14.8% (11.5-14.5) Platelet Count 439x10^3/uL (140-400) 386x10^3/uL (140-400) Neutrophils (%) (Auto) 61% (31-73) 57% (31-73) Lymphocytes (%) (Auto) 28% (24-48) 27% (24-48) Monocytes (%) (Auto) 9% (0-9) 12% (0-9) Eosinophils (%) (Auto) 1% (0-3) 3% (0-3) Basophils (%) (Auto) 0% (0-3) 1% (0-3) Neutrophils # (Auto) 9.0x10^3uL (1.8-7.7) 6.9x10^3uL (1.8-7.7) Lymphocytes # (Auto) 4.1x10^3/uL (1.0-4.8) 3.3x10^3/uL (1.0-4.8) Monocytes # (Auto) 1.3x10^3/uL (0.0-1.1) 1.5x10^3/uL (0.0-1.1) Eosinophils # (Auto) 0.1x10^3/uL (0.0-0.7) 0.3x10^3/uL (0.0-0.7) Basophils # (Auto) 0.0x10^3/uL (0.0-0.2) 0.2x10^3/uL (0.0-0.2) Prothrombin Time 13.3SEC (11.7-14.0) Prothromb Time International Ratio 1.1 (0.8-1.1) Sodium Level 136mmol/L (136-145) 135mmol/L (136-145) Potassium Level 4.0mmol/L (3.5-5.1) 4.1mmol/L (3.5-5.1) Chloride Level 97mmol/L (98-107) 101mmol/L (98-107) Carbon Dioxide Level 25mmol/L (21-32) 24mmol/L (21-32) Anion Gap 14 (6-14) 10 (6-14) Blood Urea Nitrogen 15mg/dL (7-20) 15mg/dL (7-20) Creatinine 2.1mg/dL (0.6-1.0) 2.0mg/dL (0.6-1.0) Estimated GFR (Cockcroft-Gault) 24.0 25.4 BUN/Creatinine Ratio 7 (6-20) Glucose Level 102mg/dL (70-99) 103mg/dL (70-99) Calcium Level 9.8mg/dL (8.5-10.1) 9.0mg/dL (8.5-10.1) Total Bilirubin 0.3mg/dL (0.2-1.0) Aspartate Amino Transf (AST/SGOT) 21U/L (15-37) Alanine Aminotransferase (ALT/SGPT) 15U/L (14-59) Alkaline Phosphatase 82U/L (46-116) Total Protein 8.3g/dL (6.4-8.2) Albumin 3.0g/dL (3.4-5.0) Albumin/Globulin Ratio 0.6 (1.0-1.7) Lipase 157U/L (73-393) Review of Systems Review of Systems afebrile at this time; 101.0 @ 0300 + diarrhea, mild nausea, and diffuse abdominal pain + chronic lower back pain Assessment and Plan Assessmemt and Plan ASSESSMENT: - abdominal pain, diarrhea - recurring C. Diff colitis with diffuse abdominal pain - recurring gastritis - alcoholism - osteoarthritis status post back surgery as well as knee replacement and foot surgery. - renal insufficiency PLAN: - cont IVF - cont pain control - cont antibiotics - appreciate subspecialist input - repeat daily labs Problems: Comment Review of Relevant I have reviewed the following items blade (where applicable) has been applied. Labs Laboratory Tests Test 09/11/16 16:36 09/12/16 05:00 White Blood Count 14.6x10^3/uL (4.0-11.0) 12.2x10^3/uL (4.0-11.0) Red Blood Count 4.26x10^6/uL (3.50-5.40) 3.59x10^6/uL (3.50-5.40) Hemoglobin 12.6g/dL (12.0-15.5) 10.7g/dL (12.0-15.5) Hematocrit 39.1% (36.0-47.0) 33.4% (36.0-47.0) Mean Corpuscular Volume 92fL (79-100) 93fL (79-100) Mean Corpuscular Hemoglobin 30pg (25-35) 30pg (25-35) Mean Corpuscular Hemoglobin Concent 32g/dL (31-37) 32g/dL (31-37) Red Cell Distribution Width 15.5% (11.5-14.5) 14.8% (11.5-14.5) Platelet Count 439x10^3/uL (140-400) 386x10^3/uL (140-400) Neutrophils (%) (Auto) 61% (31-73) 57% (31-73) Lymphocytes (%) (Auto) 28% (24-48) 27% (24-48) Monocytes (%) (Auto) 9% (0-9) 12% (0-9) Eosinophils (%) (Auto) 1% (0-3) 3% (0-3) Basophils (%) (Auto) 0% (0-3) 1% (0-3) Neutrophils # (Auto) 9.0x10^3uL (1.8-7.7) 6.9x10^3uL (1.8-7.7) Lymphocytes # (Auto) 4.1x10^3/uL (1.0-4.8) 3.3x10^3/uL (1.0-4.8) Monocytes # (Auto) 1.3x10^3/uL (0.0-1.1) 1.5x10^3/uL (0.0-1.1) Eosinophils # (Auto) 0.1x10^3/uL (0.0-0.7) 0.3x10^3/uL (0.0-0.7) Basophils # (Auto) 0.0x10^3/uL (0.0-0.2) 0.2x10^3/uL (0.0-0.2) Prothrombin Time 13.3SEC (11.7-14.0) Prothromb Time International Ratio 1.1 (0.8-1.1) Sodium Level 136mmol/L (136-145) 135mmol/L (136-145) Potassium Level 4.0mmol/L (3.5-5.1) 4.1mmol/L (3.5-5.1) Chloride Level 97mmol/L (98-107) 101mmol/L (98-107) Carbon Dioxide Level 25mmol/L (21-32) 24mmol/L (21-32) Anion Gap 14 (6-14) 10 (6-14) Blood Urea Nitrogen 15mg/dL (7-20) 15mg/dL (7-20) Creatinine 2.1mg/dL (0.6-1.0) 2.0mg/dL (0.6-1.0) Estimated GFR (Cockcroft-Gault) 24.0 25.4 BUN/Creatinine Ratio 7 (6-20) Glucose Level 102mg/dL (70-99) 103mg/dL (70-99) Calcium Level 9.8mg/dL (8.5-10.1) 9.0mg/dL (8.5-10.1) Total Bilirubin 0.3mg/dL (0.2-1.0) Aspartate Amino Transf (AST/SGOT) 21U/L (15-37) Alanine Aminotransferase (ALT/SGPT) 15U/L (14-59) Alkaline Phosphatase 82U/L (46-116) Total Protein 8.3g/dL (6.4-8.2) Albumin 3.0g/dL (3.4-5.0) Albumin/Globulin Ratio 0.6 (1.0-1.7) Lipase 157U/L (73-393) Laboratory Tests Test 09/11/16 16:36 09/12/16 05:00 White Blood Count 14.6x10^3/uL (4.0-11.0) 12.2x10^3/uL (4.0-11.0) Red Blood Count 4.26x10^6/uL (3.50-5.40) 3.59x10^6/uL (3.50-5.40) Hemoglobin 12.6g/dL (12.0-15.5) 10.7g/dL (12.0-15.5) Hematocrit 39.1% (36.0-47.0) 33.4% (36.0-47.0) Mean Corpuscular Volume 92fL (79-100) 93fL (79-100) Mean Corpuscular Hemoglobin 30pg (25-35) 30pg (25-35) Mean Corpuscular Hemoglobin Concent 32g/dL (31-37) 32g/dL (31-37) Red Cell Distribution Width 15.5% (11.5-14.5) 14.8% (11.5-14.5) Platelet Count 439x10^3/uL (140-400) 386x10^3/uL (140-400) Neutrophils (%) (Auto) 61% (31-73) 57% (31-73) Lymphocytes (%) (Auto) 28% (24-48) 27% (24-48) Monocytes (%) (Auto) 9% (0-9) 12% (0-9) Eosinophils (%) (Auto) 1% (0-3) 3% (0-3) Basophils (%) (Auto) 0% (0-3) 1% (0-3) Neutrophils # (Auto) 9.0x10^3uL (1.8-7.7) 6.9x10^3uL (1.8-7.7) Lymphocytes # (Auto) 4.1x10^3/uL (1.0-4.8) 3.3x10^3/uL (1.0-4.8) Monocytes # (Auto) 1.3x10^3/uL (0.0-1.1) 1.5x10^3/uL (0.0-1.1) Eosinophils # (Auto) 0.1x10^3/uL (0.0-0.7) 0.3x10^3/uL (0.0-0.7) Basophils # (Auto) 0.0x10^3/uL (0.0-0.2) 0.2x10^3/uL (0.0-0.2) Prothrombin Time 13.3SEC (11.7-14.0) Prothromb Time International Ratio 1.1 (0.8-1.1) Sodium Level 136mmol/L (136-145) 135mmol/L (136-145) Potassium Level 4.0mmol/L (3.5-5.1) 4.1mmol/L (3.5-5.1) Chloride Level 97mmol/L (98-107) 101mmol/L (98-107) Carbon Dioxide Level 25mmol/L (21-32) 24mmol/L (21-32) Anion Gap 14 (6-14) 10 (6-14) Blood Urea Nitrogen 15mg/dL (7-20) 15mg/dL (7-20) Creatinine 2.1mg/dL (0.6-1.0) 2.0mg/dL (0.6-1.0) Estimated GFR (Cockcroft-Gault) 24.0 25.4 BUN/Creatinine Ratio 7 (6-20) Glucose Level 102mg/dL (70-99) 103mg/dL (70-99) Calcium Level 9.8mg/dL (8.5-10.1) 9.0mg/dL (8.5-10.1) Total Bilirubin 0.3mg/dL (0.2-1.0) Aspartate Amino Transf (AST/SGOT) 21U/L (15-37) Alanine Aminotransferase (ALT/SGPT) 15U/L (14-59) Alkaline Phosphatase 82U/L (46-116) Total Protein 8.3g/dL (6.4-8.2) Albumin 3.0g/dL (3.4-5.0) Albumin/Globulin Ratio 0.6 (1.0-1.7) Lipase 157U/L (73-393) Medications Current Medications Vancomycin HCl 125 mg 125 mg [id number] PO Last administered on 09/12/16 09:09; Start 09/11/16 at 21:00 Sodium Chloride (Iv Sodium Chloride 0.9% 1000ml Bag) 1,000 ml @ 1,000 mls/hr 1X ONCE IV Last administered on 09/11/16 17:26; Start 09/11/16 at 17:15; Stop 09/11/16 at 18:14; Status DC Ondansetron HCl (Zofran) 4 mg 1X ONCE IV Last administered on 09/11/16 17:26 ; Start 09/11/16 at 17:30; Stop 09/11/16 at 17:31; Status DC Vancomycin HCl 125 mg 1X ONCE PO Last administered on 09/11/16 17:27; Start 09/11/16 at 17:30; Stop 09/11/16 at 17:31; Status DC Hydromorphone HCl (Dilaudid) 1 mg 1X ONCE IV Last administered on 09/11/16 17 :43; Start 09/11/16 at 17:45; Stop 09/11/16 at 17:46; Status DC Ondansetron HCl 4 mg 4 mg PRN Q8HRS PRN IV NAUSEA/VOMITING Last administered on 09/12/16 09:32; Start 09/11/16 at 19:15; Stop 09/12/16 at 19:14 Sodium Chloride (Iv Sodium Chloride 0.9% 1000ml Bag) 1,000 ml @ 125 mls/hr Q8H IV Last administered on 09/12/16 03:13; Start 09/11/16 at 19:13; Stop at 19:12 Acetaminophen (Tylenol) 650 mg PRN Q4HRS PRN PO FEVER Last administered on 09/12 03:56; Start 09/11/16 at 19:15; Stop 09/12/16 at 19:14 Vancomycin HCl 125 mg [id number] PO ; Start 09/11/16 at 21:00; Status UNV Fentanyl Citrate (Fentanyl 2ml Vial) 50 mcg PRN Q2HRS PRN IV PAIN Last administered on 09/11/16 22:17; Start 09/11/16 at 19:30; Stop 09/11/16 at 23:13 ; Status DC Alprazolam (Xanax) 0.5 mg PRN BID PRN PO ANXIETY / AGITATION Last administered on 09/12/16 09:31; Start 09/11/16 at 23:15 Escitalopram Oxalate (Lexapro) 10 mg DAILY PO Last administered on 09/12/16 09 :08; Start 09/12/16 at 09:00 Hydromorphone HCl (Dilaudid) 1 mg PRN Q4HRS PRN PO PAIN Last administered on 09:31; Start 09/11/16 at 23:15 Lisinopril (Prinivil) 10 mg DAILY PO Last administered on 09/12/16 09:09; Start 09/12/16 at 09:00 Pantoprazole Sodium (Protonix) 40 mg DAILYAC PO Last administered on 09/12/16 09:08; Start 09/12/16 at 07:30; Stop 09/12/16 at 09:59; Status DC Hydralazine HCl (Apresoline) 10 mg PRN Q4HRS PRN IVP ELEVATED BP, SEE COMMENTS Last administered on 3/14/17at 23:47; Start 09/11/16 at 23:15 Metronidazole (Flagyl) 500 mg Q8HRS PO Last administered on 09/12/16t 05:37; Start 09/12/16 at 06:00 Pantoprazole Sodium (Protonix Vial) 40 mg DAILYAC IVP ; Start 09/13/16 at 07:30 Metoclopramide HCl (Reglan) 5 mg QIDACHS IV ; Start 09/12/16 at 11:30 Active Scripts Active Reglan (Metoclopramide Hcl) 10 Mg Tablet 10 Ml PO QID Dilaudid (Hydromorphone Hcl) 2 Mg Tablet 1 Mg PO PRN Q4HRS PRN Xanax (Alprazolam) 0.5 Mg Tablet 1 Tab PO BID PRN Nexium 24Hr (Esomeprazole Magnesium) 20 Mg Capsule.dr 20 Mg PO DAILY Escitalopram Oxalate 10 Mg Tablet 1 Tab PO DAILY Reported Lisinopril 10 Mg Tablet 1 Tab PO DAILY Vitals/I & O Vital Sign - Last 24 Hours 09/11/16 09/11/16 09/11/16 09/11/16 16:12 17:43 19:32 19:51 Temp 98.0 98.0 Pulse 107 106 Resp 18 15 B/P 175/112 158/99 Pulse Ox 98 97 94 O2 Delivery Room Air Room Air Room Air 09/11/16 09/11/16 09/11/16 09/11/16 20:21 20:51 21:21 22:17 Pulse 96 88 92 Resp 14 14 20 B/P 153/103 201/105 215/109 Pulse Ox 97 96 96 97 09/11/16 09/11/16 09/11/16 09/11/16 22:39 22:42 22:42 22:47 Temp 98.9 98.9 Pulse 95 Resp 18 B/P 195/121 Pulse Ox 97 97 O2 Delivery Room Air Room Air Room Air Room Air 09/11/16 09/11/16 09/12/16 09/12/16 23:45 23:47 03:00 03:56 Temp 101.0 101.0 Pulse 95 105 Resp 20 B/P 195/121 141/103 Pulse Ox 97 95 95 O2 Delivery Room Air Room Air Room Air 09/12/16 09/12/16 09/12/16 09/12/16 04:56 08:44 09:00 09:09 Temp 98.1 98.1 Pulse 96 96 Resp 16 B/P 187/112 187/112 Pulse Ox 95 97 O2 Delivery Room Air Room Air Room Air 09/12/16 09/12/16 09:31 11:00 Temp 97.8 97.8 Pulse 101 Resp 16 B/P 126/81 Pulse Ox 97 96 O2 Delivery Room Air Room Air Intake and Output 09/11/16 09/11/16 09/12/16 15:00 23:00 07:00 Intake Total 1250 ml 850 ml Balance 1250 ml 850 ml ZA MAHONEY III DO Sep 12, 2016 13:02
[2016-09-12] MEDS: METOCLOPRAMIDE HCL 10 MG/2 ML VIAL. IV SCH ×3 (13:25→20:49)
[2016-09-12 16:00] VITALS: BP 133/88
[2016-09-12 19:00] VITALS: BP 92/60
[2016-09-12 23:26] VITALS: BP 97/58
[2016-09-13 03:49] VITALS: BP 129/96
[2016-09-13] MEDS: HYDROMORPHONE 2 MG TABLET. PO PRN ×3 (03:55→14:49)
[2016-09-13 03:58] LABS: BASO # 0.1 x10^3/uL (0.0-0.2); BASO % 1 % (0-3); EOS % 6 % (0-3); HEMATOCRIT 34.3 % (36.0-47.0); HEMOGLOBIN 10.9 g/dL (12.0-15.5); LYMPH # 3.1 x10^3/uL (1.0-4.8); LYMPH % 36 % (24-48); MEAN CORPUSCULAR HEMOGLOBIN 30 pg (25-35); MEAN CORPUSCULAR HGB CONC 32 g/dL (31-37); MEAN CORPUSCULAR VOLUME 94 fL (79-100); MONO % 10 % (0-9); NEUT % 47 % (31-73); PLATELET COUNT 316 x10^3/uL (140-400); RED BLOOD COUNT 3.66 x10^6/uL (3.50-5.40); RED CELL DISTRIBUTION WIDTH 15.5 % (11.5-14.5); WHITE BLOOD COUNT 8.6 x10^3/uL (4.0-11.0)
[2016-09-13 04:18] LABS: CALCIUM 9.1 mg/dL (8.5-10.1); CREATININE 1.9 mg/dL (0.6-1.0); POTASSIUM 4.3 mmol/L (3.5-5.1)
[2016-09-13] MEDS: METRONIDAZOLE 500 MG TABLET. PO SCH ×2 (05:56→14:00)
[2016-09-13 07:15] VITALS: BP 113/77
[2016-09-13] MEDS ORDERED: PANTOPRAZOLE IV PUSH 40 MG VIAL. IVP SCH (07:30)
[2016-09-13] MEDS: VANCOMYCIN 125 MG/2.5 ML ORAL SOLUTION. PO SCH ×2 (08:49→14:48)
[2016-09-13] MEDS: ESCITALOPRAM 10 MG TABLET. PO SCH (08:49)
[2016-09-13] MEDS: LISINOPRIL 10 MG TABLET PO SCH (08:50)
[2016-09-13] MEDS: METOCLOPRAMIDE HCL 10 MG/2 ML VIAL. IV SCH ×2 (08:52→11:32)
[2016-09-13 11:00] VITALS: BP 108/75
[2016-09-13] MEDS: ALPRAZOLAM 0.5 MG TABLET PO PRN (11:32)
--- NOTE | 2016-09-13 12:27 | PDOC ---
PROGRESS NOTES Chief Complaint Chief Complaint Abdominal pain, diarrhea - recurring C. Diff colitis with diffuse abdominal pain - recurring gastritis - alcoholism - osteoarthritis status post back surgery as well as knee replacement and foot surgery. - Renal insufficiency History of Present Illness History of Present Illness Patient was lying in her bed at the time of evaluation, she is feeling better but still have some ?subjective abdominal pain, her leukocytosis resolved, she is afebrile, renal function improving, plan of care discussed with pt. and case management specialist. Vitals Vitals Vital Signs Date Time Temp Pulse Resp B/P Pulse Ox O2 Delivery O2 Flow Rate FiO2 09/13/16 08:51 20 95 Room Air 09/13/16 08:50 90 113/77 09/13/16 07:15 98.7 98.7 Physical Exam General: Alert, Oriented X3, Cooperative, No acute distress Heart: Regular rate, Normal S1, No murmurs Lungs: Clear Abdomen: Soft, No tenderness Extremities: No cyanosis, No edema Skin: No significant lesion Labs LABS Laboratory Tests Test 09/13/16 03:30 White Blood Count 8.6x10^3/uL (4.0-11.0) Red Blood Count 3.66x10^6/uL (3.50-5.40) Hemoglobin 10.9g/dL (12.0-15.5) Hematocrit 34.3% (36.0-47.0) Mean Corpuscular Volume 94fL (79-100) Mean Corpuscular Hemoglobin 30pg (25-35) Mean Corpuscular Hemoglobin Concent 32g/dL (31-37) Red Cell Distribution Width 15.5% (11.5-14.5) Platelet Count 316x10^3/uL (140-400) Neutrophils (%) (Auto) 47% (31-73) Lymphocytes (%) (Auto) 36% (24-48) Monocytes (%) (Auto) 10% (0-9) Eosinophils (%) (Auto) 6% (0-3) Basophils (%) (Auto) 1% (0-3) Neutrophils # (Auto) 4.1x10^3uL (1.8-7.7) Lymphocytes # (Auto) 3.1x10^3/uL (1.0-4.8) Monocytes # (Auto) 0.8x10^3/uL (0.0-1.1) Eosinophils # (Auto) 0.5x10^3/uL (0.0-0.7) Basophils # (Auto) 0.1x10^3/uL (0.0-0.2) Sodium Level 135mmol/L (136-145) Potassium Level 4.3mmol/L (3.5-5.1) Chloride Level 103mmol/L (98-107) Carbon Dioxide Level 22mmol/L (21-32) Anion Gap 10 (6-14) Blood Urea Nitrogen 17mg/dL (7-20) Creatinine 1.9mg/dL (0.6-1.0) Estimated GFR (Cockcroft-Gault) 27.0 Glucose Level 111mg/dL (70-99) Calcium Level 9.1mg/dL (8.5-10.1) Review of Systems Review of Systems Denies fever, chills Denies SOB, CP reported mild ?subjective abdominal pain Awake, alert, oriented Assessment and Plan Assessmemt and Plan ASSESSMENT: - abdominal pain, diarrhea - recurring C. Diff colitis with diffuse abdominal pain - recurring gastritis - alcoholism - osteoarthritis status post back surgery as well as knee replacement and foot surgery. - renal insufficiency PLAN: - Probable discharge home today - Encourage PO intakes - Labs improved - cont pain control - cont antibiotics - appreciate subspecialist input - repeat daily labs Problems Medical Problems: (1) C. difficile diarrhea Status: Acute Problems: Comment Review of Relevant I have reviewed the following items blade (where applicable) has been applied. Labs Laboratory Tests Test 09/11/16 16:36 09/11/16 23:00 09/12/16 05:00 09/13/16 03:30 White Blood Count 14.6x10^3/uL (4.0-11.0) 12.2x10^3/uL (4.0-11.0) 8.6x10^3/uL (4.0-11.0) Red Blood Count 4.26x10^6/uL (3.50-5.40) 3.59x10^6/uL (3.50-5.40) 3.66x10^6/uL (3.50-5.40) Hemoglobin 12.6g/dL (12.0-15.5) 10.7g/dL (12.0-15.5) 10.9g/dL (12.0-15.5) Hematocrit 39.1% (36.0-47.0) 33.4% (36.0-47.0) 34.3% (36.0-47.0) Mean Corpuscular Volume 92fL (79-100) 93fL (79-100) 94fL (79-100) Mean Corpuscular Hemoglobin 30pg (25-35) 30pg (25-35) 30pg (25-35) Mean Corpuscular Hemoglobin Concent 32g/dL (31-37) 32g/dL (31-37) 32g/dL (31-37) Red Cell Distribution Width 15.5% (11.5-14.5) 14.8% (11.5-14.5) 15.5% (11.5-14.5) Platelet Count 439x10^3/uL (140-400) 386x10^3/uL (140-400) 316x10^3/uL (140-400) Neutrophils (%) (Auto) 61% (31-73) 57% (31-73) 47% (31-73) Lymphocytes (%) (Auto) 28% (24-48) 27% (24-48) 36% (24-48) Monocytes (%) (Auto) 9% (0-9) 12% (0-9) 10% (0-9) Eosinophils (%) (Auto) 1% (0-3) 3% (0-3) 6% (0-3) Basophils (%) (Auto) 0% (0-3) 1% (0-3) 1% (0-3) Neutrophils # (Auto) 9.0x10^3uL (1.8-7.7) 6.9x10^3uL (1.8-7.7) 4.1x10^3uL (1.8-7.7) Lymphocytes # (Auto) 4.1x10^3/uL (1.0-4.8) 3.3x10^3/uL (1.0-4.8) 3.1x10^3/uL (1.0-4.8) Monocytes # (Auto) 1.3x10^3/uL (0.0-1.1) 1.5x10^3/uL (0.0-1.1) 0.8x10^3/uL (0.0-1.1) Eosinophils # (Auto) 0.1x10^3/uL (0.0-0.7) 0.3x10^3/uL (0.0-0.7) 0.5x10^3/uL (0.0-0.7) Basophils # (Auto) 0.0x10^3/uL (0.0-0.2) 0.2x10^3/uL (0.0-0.2) 0.1x10^3/uL (0.0-0.2) Prothrombin Time 13.3SEC (11.7-14.0) Prothromb Time International Ratio 1.1 (0.8-1.1) Sodium Level 136mmol/L (136-145) 135mmol/L (136-145) 135mmol/L (136-145) Potassium Level 4.0mmol/L (3.5-5.1) 4.1mmol/L (3.5-5.1) 4.3mmol/L (3.5-5.1) Chloride Level 97mmol/L (98-107) 101mmol/L (98-107) 103mmol/L (98-107) Carbon Dioxide Level 25mmol/L (21-32) 24mmol/L (21-32) 22mmol/L (21-32) Anion Gap 14 (6-14) 10 (6-14) 10 (6-14) Blood Urea Nitrogen 15mg/dL (7-20) 15mg/dL (7-20) 17mg/dL (7-20) Creatinine 2.1mg/dL (0.6-1.0) 2.0mg/dL (0.6-1.0) 1.9mg/dL (0.6-1.0) Estimated GFR (Cockcroft-Gault) 24.0 25.4 27.0 BUN/Creatinine Ratio 7 (6-20) Glucose Level 102mg/dL (70-99) 103mg/dL (70-99) 111mg/dL (70-99) Calcium Level 9.8mg/dL (8.5-10.1) 9.0mg/dL (8.5-10.1) 9.1mg/dL (8.5-10.1) Total Bilirubin 0.3mg/dL (0.2-1.0) Aspartate Amino Transf (AST/SGOT) 21U/L (15-37) Alanine Aminotransferase (ALT/SGPT) 15U/L (14-59) Alkaline Phosphatase 82U/L (46-116) Total Protein 8.3g/dL (6.4-8.2) Albumin 3.0g/dL (3.4-5.0) Albumin/Globulin Ratio 0.6 (1.0-1.7) Lipase 157U/L (73-393) Nasal Screen MRSA (PCR) Negative (Negative) Laboratory Tests Test 09/13/16 03:30 White Blood Count 8.6x10^3/uL (4.0-11.0) Red Blood Count 3.66x10^6/uL (3.50-5.40) Hemoglobin 10.9g/dL (12.0-15.5) Hematocrit 34.3% (36.0-47.0) Mean Corpuscular Volume 94fL (79-100) Mean Corpuscular Hemoglobin 30pg (25-35) Mean Corpuscular Hemoglobin Concent 32g/dL (31-37) Red Cell Distribution Width 15.5% (11.5-14.5) Platelet Count 316x10^3/uL (140-400) Neutrophils (%) (Auto) 47% (31-73) Lymphocytes (%) (Auto) 36% (24-48) Monocytes (%) (Auto) 10% (0-9) Eosinophils (%) (Auto) 6% (0-3) Basophils (%) (Auto) 1% (0-3) Neutrophils # (Auto) 4.1x10^3uL (1.8-7.7) Lymphocytes # (Auto) 3.1x10^3/uL (1.0-4.8) Monocytes # (Auto) 0.8x10^3/uL (0.0-1.1) Eosinophils # (Auto) 0.5x10^3/uL (0.0-0.7) Basophils # (Auto) 0.1x10^3/uL (0.0-0.2) Sodium Level 135mmol/L (136-145) Potassium Level 4.3mmol/L (3.5-5.1) Chloride Level 103mmol/L (98-107) Carbon Dioxide Level 22mmol/L (21-32) Anion Gap 10 (6-14) Blood Urea Nitrogen 17mg/dL (7-20) Creatinine 1.9mg/dL (0.6-1.0) Estimated GFR (Cockcroft-Gault) 27.0 Glucose Level 111mg/dL (70-99) Calcium Level 9.1mg/dL (8.5-10.1) Medications Current Medications Vancomycin HCl 125 mg 125 mg [id number] PO Last administered on 09/13/16 08:49; Start 09/11/16 at 21:00 Sodium Chloride (Iv Sodium Chloride 0.9% 1000ml Bag) 1,000 ml @ 1,000 mls/hr 1X ONCE IV Last administered on 09/11/16 17:26; Start 09/11/16 at 17:15; Stop 09/11/16 at 18:14; Status DC Ondansetron HCl (Zofran) 4 mg 1X ONCE IV Last administered on 09/11/16 17:26 ; Start 09/11/16 at 17:30; Stop 09/11/16 at 17:31; Status DC Vancomycin HCl 125 mg 1X ONCE PO Last administered on 09/11/16 17:27; Start 09/11/16 at 17:30; Stop 09/11/16 at 17:31; Status DC Hydromorphone HCl (Dilaudid) 1 mg 1X ONCE IV Last administered on 09/11/16 17 :43; Start 09/11/16 at 17:45; Stop 09/11/16 at 17:46; Status DC Ondansetron HCl 4 mg 4 mg PRN Q8HRS PRN IV NAUSEA/VOMITING Last administered on 09/12/16 09:32; Start 09/11/16 at 19:15; Stop 09/12/16 at 19:14; Status DC Sodium Chloride (Iv Sodium Chloride 0.9% 1000ml Bag) 1,000 ml @ 125 mls/hr Q8H IV Last administered on 09/12/16 17:13; Start 09/11/16 at 19:13; Stop at 19:12; Status DC Acetaminophen (Tylenol) 650 mg PRN Q4HRS PRN PO FEVER Last administered on 09/12 03:56; Start 09/11/16 at 19:15; Stop 09/12/16 at 19:14; Status DC Vancomycin HCl 125 mg [id number] PO ; Start 09/11/16 at 21:00; Status UNV Fentanyl Citrate (Fentanyl 2ml Vial) 50 mcg PRN Q2HRS PRN IV PAIN Last administered on 09/11/16 22:17; Start 09/11/16 at 19:30; Stop 09/11/16 at 23:13 ; Status DC Alprazolam (Xanax) 0.5 mg PRN BID PRN PO ANXIETY / AGITATION Last administered on 09/13/16 11:32; Start 09/11/16 at 23:15 Escitalopram Oxalate (Lexapro) 10 mg DAILY PO Last administered on 09/13/16 08 :49; Start 09/12/16 at 09:00 Hydromorphone HCl (Dilaudid) 1 mg PRN Q4HRS PRN PO PAIN Last administered on 13:26; Start 09/11/16 at 23:15; Stop 09/12/16 at 15:45; Status DC Lisinopril (Prinivil) 10 mg DAILY PO Last administered on 09/13/16 08:50; Start 09/12/16 at 09:00 Pantoprazole Sodium (Protonix) 40 mg DAILYAC PO Last administered on 09/12/16 09:08; Start 09/12/16 at 07:30; Stop 09/12/16 at 09:59; Status DC Hydralazine HCl (Apresoline) 10 mg PRN Q4HRS PRN IVP ELEVATED BP, SEE COMMENTS Last administered on 09/11/16 23:47; Start 09/11/16 at 23:15 Metronidazole (Flagyl) 500 mg Q8HRS PO Last administered on 09/13/16 05:56; Start 09/12/16 at 06:00 Pantoprazole Sodium (Protonix Vial) 40 mg DAILYAC IVP Last administered on 09/13 08:48; Start 09/13/16 at 07:30 Metoclopramide HCl (Reglan) 5 mg QIDACHS IV Last administered on 09/13/16 11: 32; Start 09/12/16 at 11:30 Hydromorphone HCl (Dilaudid) 2 mg PRN Q4HRS PRN PO PAIN Last administered on 08:51; Start 09/12/16 at 15:45 Active Scripts Active Reglan (Metoclopramide Hcl) 10 Mg Tablet 10 Ml PO QID Dilaudid (Hydromorphone Hcl) 2 Mg Tablet 1 Mg PO PRN Q4HRS PRN Xanax (Alprazolam) 0.5 Mg Tablet 1 Tab PO BID PRN Nexium 24Hr (Esomeprazole Magnesium) 20 Mg Capsule.dr 20 Mg PO DAILY Escitalopram Oxalate 10 Mg Tablet 1 Tab PO DAILY Reported Lisinopril 10 Mg Tablet 1 Tab PO DAILY Vitals/I & O Vital Sign - Last 24 Hours 09/12/16 09/12/16 09/12/16 09/12/16 13:26 16:00 17:09 18:17 Temp 98.6 98.6 Pulse 102 Resp 16 B/P 133/88 Pulse Ox 96 96 96 O2 Delivery Room Air Room Air Room Air Room Air 09/12/16 09/12/16 09/12/16 09/13/16 19:00 20:48 23:26 03:49 Temp 98.8 97.0 98.3 98.8 97.0 98.3 Pulse 94 91 88 Resp 20 18 20 20 B/P 92/60 97/58 129/96 Pulse Ox 96 95 97 O2 Delivery Room Air Room Air Room Air Room Air 09/13/16 09/13/16 09/13/16 09/13/16 03:55 07:15 08:50 08:51 Temp 98.7 98.7 Pulse 93 90 Resp 20 20 20 B/P 113/77 113/77 Pulse Ox 97 95 95 O2 Delivery Room Air Room Air Room Air Intake and Output 09/12/16 09/12/16 09/13/16 15:00 23:00 07:00 Intake Total 1350 ml 180 ml Output Total 800 ml Balance 1350 ml -620 ml Nutrition Consultation Dietary Evaluation: Recommendations by RD: Increase Calorie Intake, Protein supplementation Comments: boost plus Expected Outcomes/Goals: to meet > 75% est nutr needs Interpretation of weight loss: >5% in 1 month Malnutrition Findings: Food and Nutrition Intake (Mod: <75% est energy req 7days Reduced [employer] Strength: N/A Weight Status: Appropriate Fluid Accumulation (N/A): N/A ZA MAHONEY III DO Sep 13, 2016 12:27
--- NOTE | 2016-09-13 13:51 | PDOC ---
G I PROGRESS NOTE Subjective Complains mostly of nausea. Not eating much at least not at lunch. Physical Exam Lungs clear. RRR Abdomen soft, not distended. Review of Relevant I have reviewed the following items blade (where applicable) has been applied. Labs Laboratory Tests Test 09/11/16 16:36 09/11/16 23:00 09/12/16 05:00 09/13/16 03:30 White Blood Count 14.6x10^3/uL (4.0-11.0) 12.2x10^3/uL (4.0-11.0) 8.6x10^3/uL (4.0-11.0) Red Blood Count 4.26x10^6/uL (3.50-5.40) 3.59x10^6/uL (3.50-5.40) 3.66x10^6/uL (3.50-5.40) Hemoglobin 12.6g/dL (12.0-15.5) 10.7g/dL (12.0-15.5) 10.9g/dL (12.0-15.5) Hematocrit 39.1% (36.0-47.0) 33.4% (36.0-47.0) 34.3% (36.0-47.0) Mean Corpuscular Volume 92fL (79-100) 93fL (79-100) 94fL (79-100) Mean Corpuscular Hemoglobin 30pg (25-35) 30pg (25-35) 30pg (25-35) Mean Corpuscular Hemoglobin Concent 32g/dL (31-37) 32g/dL (31-37) 32g/dL (31-37) Red Cell Distribution Width 15.5% (11.5-14.5) 14.8% (11.5-14.5) 15.5% (11.5-14.5) Platelet Count 439x10^3/uL (140-400) 386x10^3/uL (140-400) 316x10^3/uL (140-400) Neutrophils (%) (Auto) 61% (31-73) 57% (31-73) 47% (31-73) Lymphocytes (%) (Auto) 28% (24-48) 27% (24-48) 36% (24-48) Monocytes (%) (Auto) 9% (0-9) 12% (0-9) 10% (0-9) Eosinophils (%) (Auto) 1% (0-3) 3% (0-3) 6% (0-3) Basophils (%) (Auto) 0% (0-3) 1% (0-3) 1% (0-3) Neutrophils # (Auto) 9.0x10^3uL (1.8-7.7) 6.9x10^3uL (1.8-7.7) 4.1x10^3uL (1.8-7.7) Lymphocytes # (Auto) 4.1x10^3/uL (1.0-4.8) 3.3x10^3/uL (1.0-4.8) 3.1x10^3/uL (1.0-4.8) Monocytes # (Auto) 1.3x10^3/uL (0.0-1.1) 1.5x10^3/uL (0.0-1.1) 0.8x10^3/uL (0.0-1.1) Eosinophils # (Auto) 0.1x10^3/uL (0.0-0.7) 0.3x10^3/uL (0.0-0.7) 0.5x10^3/uL (0.0-0.7) Basophils # (Auto) 0.0x10^3/uL (0.0-0.2) 0.2x10^3/uL (0.0-0.2) 0.1x10^3/uL (0.0-0.2) Prothrombin Time 13.3SEC (11.7-14.0) Prothromb Time International Ratio 1.1 (0.8-1.1) Sodium Level 136mmol/L (136-145) 135mmol/L (136-145) 135mmol/L (136-145) Potassium Level 4.0mmol/L (3.5-5.1) 4.1mmol/L (3.5-5.1) 4.3mmol/L (3.5-5.1) Chloride Level 97mmol/L (98-107) 101mmol/L (98-107) 103mmol/L (98-107) Carbon Dioxide Level 25mmol/L (21-32) 24mmol/L (21-32) 22mmol/L (21-32) Anion Gap 14 (6-14) 10 (6-14) 10 (6-14) Blood Urea Nitrogen 15mg/dL (7-20) 15mg/dL (7-20) 17mg/dL (7-20) Creatinine 2.1mg/dL (0.6-1.0) 2.0mg/dL (0.6-1.0) 1.9mg/dL (0.6-1.0) Estimated GFR (Cockcroft-Gault) 24.0 25.4 27.0 BUN/Creatinine Ratio 7 (6-20) Glucose Level 102mg/dL (70-99) 103mg/dL (70-99) 111mg/dL (70-99) Calcium Level 9.8mg/dL (8.5-10.1) 9.0mg/dL (8.5-10.1) 9.1mg/dL (8.5-10.1) Total Bilirubin 0.3mg/dL (0.2-1.0) Aspartate Amino Transf (AST/SGOT) 21U/L (15-37) Alanine Aminotransferase (ALT/SGPT) 15U/L (14-59) Alkaline Phosphatase 82U/L (46-116) Total Protein 8.3g/dL (6.4-8.2) Albumin 3.0g/dL (3.4-5.0) Albumin/Globulin Ratio 0.6 (1.0-1.7) Lipase 157U/L (73-393) Nasal Screen MRSA (PCR) Negative (Negative) Laboratory Tests Test 09/13/16 03:30 White Blood Count 8.6x10^3/uL (4.0-11.0) Red Blood Count 3.66x10^6/uL (3.50-5.40) Hemoglobin 10.9g/dL (12.0-15.5) Hematocrit 34.3% (36.0-47.0) Mean Corpuscular Volume 94fL (79-100) Mean Corpuscular Hemoglobin 30pg (25-35) Mean Corpuscular Hemoglobin Concent 32g/dL (31-37) Red Cell Distribution Width 15.5% (11.5-14.5) Platelet Count 316x10^3/uL (140-400) Neutrophils (%) (Auto) 47% (31-73) Lymphocytes (%) (Auto) 36% (24-48) Monocytes (%) (Auto) 10% (0-9) Eosinophils (%) (Auto) 6% (0-3) Basophils (%) (Auto) 1% (0-3) Neutrophils # (Auto) 4.1x10^3uL (1.8-7.7) Lymphocytes # (Auto) 3.1x10^3/uL (1.0-4.8) Monocytes # (Auto) 0.8x10^3/uL (0.0-1.1) Eosinophils # (Auto) 0.5x10^3/uL (0.0-0.7) Basophils # (Auto) 0.1x10^3/uL (0.0-0.2) Sodium Level 135mmol/L (136-145) Potassium Level 4.3mmol/L (3.5-5.1) Chloride Level 103mmol/L (98-107) Carbon Dioxide Level 22mmol/L (21-32) Anion Gap 10 (6-14) Blood Urea Nitrogen 17mg/dL (7-20) Creatinine 1.9mg/dL (0.6-1.0) Estimated GFR (Cockcroft-Gault) 27.0 Glucose Level 111mg/dL (70-99) Calcium Level 9.1mg/dL (8.5-10.1) Medications Current Medications Vancomycin HCl 125 mg 125 mg [id number] PO Last administered on 09/13/16 08:49; Start 09/11/16 at 21:00 Sodium Chloride (Iv Sodium Chloride 0.9% 1000ml Bag) 1,000 ml @ 1,000 mls/hr 1X ONCE IV Last administered on 09/11/16 17:26; Start 09/11/16 at 17:15; Stop 09/11/16 at 18:14; Status DC Ondansetron HCl (Zofran) 4 mg 1X ONCE IV Last administered on 09/11/16 17:26 ; Start 09/11/16 at 17:30; Stop 09/11/16 at 17:31; Status DC Vancomycin HCl 125 mg 1X ONCE PO Last administered on 09/11/16 17:27; Start 09/11/16 at 17:30; Stop 09/11/16 at 17:31; Status DC Hydromorphone HCl (Dilaudid) 1 mg 1X ONCE IV Last administered on 09/11/16 17 :43; Start 09/11/16 at 17:45; Stop 09/11/16 at 17:46; Status DC Ondansetron HCl 4 mg 4 mg PRN Q8HRS PRN IV NAUSEA/VOMITING Last administered on 09/12/16 09:32; Start 09/11/16 at 19:15; Stop 09/12/16 at 19:14; Status DC Sodium Chloride (Iv Sodium Chloride 0.9% 1000ml Bag) 1,000 ml @ 125 mls/hr Q8H IV Last administered on 09/12/16 17:13; Start 09/11/16 at 19:13; Stop at 19:12; Status DC Acetaminophen (Tylenol) 650 mg PRN Q4HRS PRN PO FEVER Last administered on 09/12 03:56; Start 09/11/16 at 19:15; Stop 09/12/16 at 19:14; Status DC Vancomycin HCl 125 mg [id number] PO ; Start 09/11/16 at 21:00; Status UNV Fentanyl Citrate (Fentanyl 2ml Vial) 50 mcg PRN Q2HRS PRN IV PAIN Last administered on 09/11/16 22:17; Start 09/11/16 at 19:30; Stop 09/11/16 at 23:13 ; Status DC Alprazolam (Xanax) 0.5 mg PRN BID PRN PO ANXIETY / AGITATION Last administered on 09/13/16 11:32; Start 09/11/16 at 23:15 Escitalopram Oxalate (Lexapro) 10 mg DAILY PO Last administered on 09/13/16 08 :49; Start 09/12/16 at 09:00 Hydromorphone HCl (Dilaudid) 1 mg PRN Q4HRS PRN PO PAIN Last administered on 13:26; Start 09/11/16 at 23:15; Stop 09/12/16 at 15:45; Status DC Lisinopril (Prinivil) 10 mg DAILY PO Last administered on 09/13/16 08:50; Start 09/12/16 at 09:00 Pantoprazole Sodium (Protonix) 40 mg DAILYAC PO Last administered on 09/12/16 09:08; Start 09/12/16 at 07:30; Stop 09/12/16 at 09:59; Status DC Hydralazine HCl (Apresoline) 10 mg PRN Q4HRS PRN IVP ELEVATED BP, SEE COMMENTS Last administered on 09/11/16 23:47; Start 09/11/16 at 23:15 Metronidazole (Flagyl) 500 mg Q8HRS PO Last administered on 09/13/16 05:56; Start 09/12/16 at 06:00 Pantoprazole Sodium (Protonix Vial) 40 mg DAILYAC IVP Last administered on 09/13 08:48; Start 09/13/16 at 07:30 Metoclopramide HCl (Reglan) 5 mg QIDACHS IV Last administered on 09/13/16 11: 32; Start 09/12/16 at 11:30 Hydromorphone HCl (Dilaudid) 2 mg PRN Q4HRS PRN PO PAIN Last administered on 08:51; Start 09/12/16 at 15:45 Active Scripts Active Reglan (Metoclopramide Hcl) 10 Mg Tablet 10 Ml PO QID Dilaudid (Hydromorphone Hcl) 2 Mg Tablet 1 Mg PO PRN Q4HRS PRN Xanax (Alprazolam) 0.5 Mg Tablet 1 Tab PO BID PRN Nexium 24Hr (Esomeprazole Magnesium) 20 Mg Capsule.dr 20 Mg PO DAILY Escitalopram Oxalate 10 Mg Tablet 1 Tab PO DAILY Reported Lisinopril 10 Mg Tablet 1 Tab PO DAILY Vitals/I & O Vital Sign - Last 24 Hours 09/12/16 09/12/16 09/12/16 09/12/16 16:00 17:09 18:17 19:00 Temp 98.6 98.8 98.6 98.8 Pulse 102 94 Resp 16 16 20 B/P 133/88 92/60 Pulse Ox 96 96 96 O2 Delivery Room Air Room Air Room Air Room Air 3/1509/12/16 09/13/16 09/13/16 20:48 23:26 03:49 03:55 Temp 97.0 98.3 97.0 98.3 Pulse 91 88 Resp 18 20 20 20 B/P 97/58 129/96 Pulse Ox 95 97 97 O2 Delivery Room Air Room Air Room Air Room Air 09/13/16 09/13/16 09/13/16 07:15 08:50 08:51 Temp 98.7 98.7 Pulse 93 90 Resp 20 20 B/P 113/77 113/77 Pulse Ox 95 95 O2 Delivery Room Air Room Air Intake and Output 09/12/16 09/12/16 09/13/16 15:00 23:00 07:00 Intake Total 1350 ml 180 ml Output Total 800 ml Balance 1350 ml -620 ml Problem List Problems Medical Problems: (1) C. difficile diarrhea Status: Acute Assessment On-going issues. Last admit, issues with bladder upset GI tract. Plan of Care Note Continue PPI, iv Reglan. Check post-void residual (doesn't reliably self-cath at home). PREET AMEZQUITA MD Sep 13, 2016 13:51
[2016-09-13 15:19] VITALS: BP 111/70
[2016-09-14] MEDS ORDERED: PANTOPRAZOLE IV PUSH 40 MG VIAL. IVP SCH (16:30)
--- NOTE | 2016-09-19 12:24 | DS ---
DATE OF DISCHARGE: 09/13/2016 ADMISSION DIAGNOSIS: Clostridium difficile. DISCHARGE DIAGNOSIS: Resolving chronic C. difficile. HOSPITAL COURSE: The patient is a pleasant 61-year-old female well known to our service. She gets admitted about once a week with chronic C. difficile. She also has some drug narcotic dependence. She was admitted. We gave her Flagyl and narcotics. Her symptoms resolved. She usually has an element of chronic renal failure as well today her creatinine is 1.9, which is good for her. Her white count is 8.6. She is doing well. We will plan to discharge. DISPOSITION: Home. ACTIVITY: As tolerated. DIET: Low sodium. MEDICATIONS: Please see the MRAD. TOTAL TIME ON DISCHARGE: 33 minutes. ZA MAHONEY DO DR: CORY/hal JOB#: [id number] / [id number]
== END 2016-09-13 16:45 | disposition home or self-care (01) | DRG 371 ==
LOC: ER 15:59 → 5 NORTH 19:30
PROVIDERS: ADMIT Internal Medicine Hematology & Oncology; ATTEND Internal Medicine Hematology & Oncology
DX: A04.7 Enterocolitis due to Clostridium difficile (principal); R65.11 Systemic inflammatory response syndrome (SIRS) of non-infectious origin with acute organ dysfunction; K29.70 Gastritis, unspecified, without bleeding; N28.9 Disorder of kidney and ureter, unspecified; F10.20 Alcohol dependence, uncomplicated; G89.29 Other chronic pain; I10 Essential (primary) hypertension; K21.9 Gastro-esophageal reflux disease without esophagitis; K31.84 Gastroparesis; Z96.652 Presence of left artificial knee joint; F41.9 Anxiety disorder, unspecified; Z88.1 Allergy status to other antibiotic agents; Z88.5 Allergy status to narcotic agent; Z88.8 Allergy status to other drugs, medicaments and biological substances
CPT/HCPCS: 36415; 80048; 80053; 83690; 85027; 85610; 87641; 93005; 96361; 96374; 96375; C9113; J0360; J1170; J2405; J2765; J3010; J7030; 99285-25

== ENCOUNTER 2016-10-16 19:24 | Emergency (ER) | payer MEDICARE, MEDICAID ==
[~2016-10-16] VITALS: Ht 162.6 cm; Wt 65.8 kg
[2016-10-16 20:10] LABS: BILIRUBIN,URINE NEGATIVE (NEG); GLUCOSE,URINE NEGATIVE (NEG); NITRITE,URINE NEGATIVE (NEG); PH,URINE 5.5; PROTEIN,URINE 30 mg/dL (NEG-TRACE); UROBILINOGEN,URINE 0.2 mg/dL (0.2 mg/dL)
[2016-10-16 20:16] LABS: BACTERIA,URINE MANY /HPF (0-FEW); RBC,URINE 0 /HPF (0-2); SQUAMOUS EPITHELIAL CELL,UR FEW /LPF; WBC,URINE 20-40 /HPF (0-4)
[2016-10-16] MEDS ORDERED: SULF1TAB24 PO (21:27)
[2016-10-16] MEDS ORDERED: ACET-704 PO (21:27)
--- NOTE | 2016-10-16 21:28 | PHYS DOC ---
Past Medical History Past Medical History: Alcoholism, Anxiety, Arthritis, Hypertension, Other Additional Past Medical Histor: c diff, chronic n/v/d & abdominal pain, gastritis, renal insufficiency Past Surgical History: Knee Replacement, Other Additional Past Surgical Histo: back and foot surger, LEFT KNEE REPLACEMENT X2 Alcohol Use: Occasionally Drug Use: Opiates Adult General Chief Complaint Chief Complaint: FLANK PAIN HPI HPI Patient is a 61 year old female who is well-known to the Emergency Department who presents with bilateral flank pain, urinary urgency and frequency. Has been having symptoms for the past week. Has tried Nexium and Reglan at home with insufficient relief. No fever. No other acute complaints. Review of Systems Review of Systems Constitutional: Denies fever or chills Eyes: Denies change in visual acuity or eye pain HENT: Denies nasal congestion or sore throat Respiratory: Denies cough or shortness of breath Cardiovascular: Denies chest pain GI: Denies abdominal pain, nausea, vomiting, bloody stools or diarrhea : Urinary urgency and frequency Musculoskeletal: B/l flank pain Integument: Denies rash or skin lesions Neurologic: Denies headache, focal weakness or sensory changes Current Medications Current Medications Current Medications Medications (Trade) Dose Ordered Sig/Taz Start Time Stop Time Status Last Admin Dose Admin Ceftriaxone Sodium 1 gm/ Sodium Chloride 50 ml @ 100 mls/hr 1X ONCE 10/16/16 21:30 10/16/16 21:59 UNV Ceftriaxone Sodium (Rocephin 1gm Ivpb For Omni) 50 ml @ 100 mls/hr 1X ONCE 10/16/16 22:00 10/16/16 22:29 DC 10/16/16 21:36 100 MLS/HR Fentanyl Citrate 50 mcg 50 mcg 1X ONCE 10/16/16 22:00 10/16/16 22:01 DC 10/16/16 21:35 50 MCG Sodium Chloride (Iv Sodium Chloride 0.9% 1000ml Bag) 1,000 ml @ 1,000 mls/hr Q1H 10/16/16 22:00 10/16/16 22:48 DC 10/16/16 21:34 1,000 MLS/HR Allergies Allergies Allergies Coded Allergies Type Severity Reaction Last Updated Verified levofloxacin Allergy Intermediate 08/16/16 Yes morphine Allergy Intermediate tolerates Dilaudid 07/26/16 Yes I S O L A T I O N *CONTACT* Allergy Unknown 07/26/16 Yes diphenhydramine HCl Adverse Reaction Intermediate "Jittery on the inside" 07/26 Yes Physical Exam Physical Exam Constitutional: Well developed, well nourished, no acute distress, non-toxic appearance HENT: Normocephalic, atraumatic, bilateral external ears normal Neck: Normal range of motion, no stridor Cardiovascular: Heart rate normal, regular rhythm, no murmur Lungs & Thorax: Bilateral breath sounds clear to auscultation Abdomen: Bowel sounds normal, soft, non-distended, no TTP Skin: Warm, dry, no erythema, no rash Back: Minimal b/l CVA tenderness Extremities: No obvious deformity, no edema Neurologic: Alert and oriented X 3, no gross deficits noted Current Patient Data Vital Signs Vital Signs Date Time Temp Pulse Resp B/P Pulse Ox O2 Delivery O2 Flow Rate FiO2 10/16/16 22:43 87 22 144/82 98 Room Air 10/16/16 20:09 97.9 97.9 Lab Values Laboratory Tests Test 10/16/16 19:35 Urine Collection Type Unknown Urine Color Yellow Urine Clarity Clear Urine pH 5.5 Urine Specific [place] <=1.005 Urine Protein 30mg/dL (NEG-TRACE) Urine Glucose (UA) Negativemg/dL (NEG) Urine Ketones (Stick) Negativemg/dL (NEG) Urine Blood Negative (NEG) Urine Nitrite Negative (NEG) Urine Bilirubin Negative (NEG) Urine Urobilinogen Dipstick 0.2mg/dL (0.2 mg/dL) Urine Leukocyte Esterase Moderate (NEG) Urine RBC 0/HPF (0-2) Urine WBC 20-40/HPF (0-4) Urine Squamous Epithelial Cells Few/LPF Urine Bacteria Many/HPF (0-FEW) Urine Mucus Slight/LPF EKG EKG [] Radiology/Procedures Radiology/Procedures [] Course & Med Decision Making Course & Med Decision Making Pertinent Labs and Imaging studies reviewed. (See chart for details) Patient is 7-year-old female who presents with urinary symptoms, flank pain. UA already obtained, shows UTI. IV fluids, Rocephin, pain medication ordered. Discussed results with patient. Will discharge with prescription for pain medication and antibiotics. Given instructions for follow-up and return precautions. Dragon Disclaimer Dragon Disclaimer This electronic medical record was generated, in whole or in part, using a voice recognition dictation system. Departure Departure Impression: Primary Impression: UTI (urinary tract infection) Disposition: 01 HOME, SELF-CARE Condition: STABLE Referrals: UNKNOWN PCP NAME (PCP) JENNIFER MITCHELL MD Patient Instructions: Urinary Tract Infection Additional Instructions: Thank you for allowing us to provide care today in the Emergency Department. Take the provided medication as directed. Use caution when taking the pain medication as it can make you drowsy. Schedule a follow up appointment with your primary care doctor and a GI doctor using the provided contact information. Return promptly to the Emergency Department if you develop any new or concerning symptoms. Scripts Sulfamethoxazole/Trimethoprim (Bactrim Ds Tablet)1 Each Tablet1 Tab PO BID #14 TAB Prov:TAMMY RUIZ MD 10/16/16 Acetaminophen With Codeine (Tylenol With Codeine #3 Tablet)1 Each Tablet1 Tab PO PRN Q6HRS PRN PAIN #15 TAB Prov:TAMMY RUIZ MD 10/16/16 TAMMY RUIZ MD Oct 16, 2016 21:28
[2016-10-16] MEDS ORDERED: CEFTRIAXONE SODIUM 1 GM in IV NORMAL SALINE 50ML 50 ML IV ONE (21:30)
[2016-10-16] MEDS ORDERED: FENTANYL PF 100 MCG/2 ML VIAL. IV ONE (22:00)
[2016-10-16] MEDS ORDERED: IV NORMAL SALINE 1000ML BAG 1,000 ML IV SCH (22:00)
[2016-10-16] MEDS ORDERED: CEFTRIAXONE 1GM IVPB FOR OMNI 50 ML IV ONE (22:00)
[2016-10-16 22:43] VITALS: BP 144/82
--- NOTE | 2016-10-19 08:18 | VNOTE ---
CALL BACK NOTE CALL BACK Microbiology 10/16/16 Urine Culture - Final, Complete 10/16/16 Urine Culture Result 1 (DARCIE) - Final, Complete 10/16/16 Antimicrobic Susceptibility - Final, Complete Attempted to contact patient regards to urine cultures was positive for Escherichia coli. Patient was placed on Bactrim at discharge which shows resistant to this infection. Patient's message was left at [phone] for her to call the emergency department. KENNETH MCKEON APRN Oct 19, 2016 08:18
== END 2016-10-16 22:47 | disposition home or self-care (01) ==
LOC: ER 19:24
DX: N39.0 Urinary tract infection, site not specified (principal); M19.90 Unspecified osteoarthritis, unspecified site; I12.9 Hypertensive chronic kidney disease with stage 1 through stage 4 chronic kidney disease, or unspecified chronic kidney disease; N18.9 Chronic kidney disease, unspecified; F11.10 Opioid abuse, uncomplicated; Z88.1 Allergy status to other antibiotic agents; Z91.041 Radiographic dye allergy status; Z88.5 Allergy status to narcotic agent; Z88.8 Allergy status to other drugs, medicaments and biological substances
CPT/HCPCS: 81001; 87086; 96365; 96375; 99284; J0690; J3010; J7030

== ENCOUNTER 2016-11-01 14:03 | Inpatient (IN) | payer MEDICARE, MEDICAID ==
[~2016-11-01] VITALS: Ht 162.6 cm; Wt 65.8 kg
[~2016-11-01 14:03] MED LIST changes: +ACET-704 PO
--- NOTE | 2016-11-01 14:37 | EKG ---
[facility] [address] [place] [address] Test Date: 2016-11-01 Test Time: 14:15:06 Pat Name: SANTI HERRON Department: Room: Gender: Female Ultrasound Tech: : [id number] Requested By: RIC DESHPANDE Order Number: [id number] Reading MD: Julieta Wu Measurements Intervals [place] Rate: 90 P: 33 TX: 136 QRS: -21 QRSD: 74 T: 9 QT: 390 QTc: 481 Interpretive Statements SINUS RHYTHM LEFTWARD AXIS NON SPECIFIC T ABNORMALITY Electronically Signed On 11-04-2016 17:41:01 CDT by Julieta Wu
[2016-11-01 14:38] LABS: BASO # 0.1 x10^3/uL (0.0-0.2); BASO % 1 % (0-3); EOS % 0 % (0-3); HEMATOCRIT 38.1 % (36.0-47.0); HEMOGLOBIN 12.9 g/dL (12.0-15.5); LYMPH # 3.4 x10^3/uL (1.0-4.8); LYMPH % 19 % (24-48); MEAN CORPUSCULAR HEMOGLOBIN 29 pg (25-35); MEAN CORPUSCULAR HGB CONC 34 g/dL (31-37); MEAN CORPUSCULAR VOLUME 87 fL (79-100); MONO % 8 % (0-9); NEUT % 72 % (31-73); PLATELET COUNT 429 x10^3/uL (140-400); RED BLOOD COUNT 4.38 x10^6/uL (3.50-5.40); RED CELL DISTRIBUTION WIDTH 14.7 % (11.5-14.5); WHITE BLOOD COUNT 17.8 x10^3/uL (4.0-11.0)
[2016-11-01 14:44] LABS: CALCIUM 10.5 mg/dL (8.5-10.1); CREATININE 2.4 mg/dL (0.6-1.0); GFR 20.6; POTASSIUM 4.4 mmol/L (3.5-5.1)
[2016-11-01] MEDS ORDERED: ONDANSETRON PF 4 MG/2 ML VIAL. IV ONE (14:45)
[2016-11-01] MEDS ORDERED: IV NORMAL SALINE 1000ML BAG 1,000 ML IV ONE (14:45)
[2016-11-01] MEDS ORDERED: ASPIRIN 325 MG TABLET PO ONE (14:45)
[2016-11-01] MEDS ORDERED: LIDO:MAALOX:DONNATAL 1:1:1 15 ML SINGLE DOSE SWSW ONE (14:45)
--- NOTE | 2016-11-01 14:46 | RAD ---
Portable chest, 11/01/2016: History: Chest pain Comparison is made to a study from 09/04/2016. The heart size and pulmonary vascularity are normal. No pulmonary infiltrate is seen. There is no evidence of pleural fluid. IMPRESSION: No acute cardiopulmonary abnormality is detected.
[2016-11-01 14:49] LABS: ALBUMIN 3.5 g/dL (3.4-5.0); DIRECT BILIRUBIN 0.1 mg/dL (0.0-0.2); TOTAL BILIRUBIN 0.3 mg/dL (0.2-1.0); TOTAL PROTEIN 8.4 g/dL (6.4-8.2)
[2016-11-01 14:52] LABS: BILIRUBIN,URINE NEGATIVE (NEG); GLUCOSE,URINE NEGATIVE (NEG); NITRITE,URINE NEGATIVE (NEG); PROTEIN,URINE 100 mg/dL (NEG-TRACE); UROBILINOGEN,URINE 0.2 mg/dL (0.2 mg/dL)
[2016-11-01 15:04] LABS: BACTERIA,URINE FEW /HPF (0-FEW); SQUAMOUS EPITHELIAL CELL,UR MOD /LPF
[2016-11-01] MEDS: fentaNYL PF VIAL 100 MCG/2 ML VIAL IV PRN ×4 (15:08→18:00)
[2016-11-01] MEDS ORDERED: HYDROmorphone 2 MG/ML VIAL IV ONE (15:45)
[2016-11-01] MEDS ORDERED: hydrALAZINE 20 MG/ML VIAL. IVP PRN (17:00)
[2016-11-01] MEDS ORDERED: ONDANSETRON PF 4 MG/2 ML VIAL. IV PRN ×2 (17:00)
[2016-11-01] MEDS ORDERED: ACETAMINOPHEN/CODEINE 300/30MG TABLET. PO PRN (17:00)
[2016-11-01] MEDS ORDERED: ACETAMINOPHEN 325 MG TABLET. PO PRN ×2 (17:00)
[2016-11-01] MEDS: METOCLOPRAMIDE 10 MG TABLET. PO SCH ×2 (17:00→20:33)
--- NOTE | 2016-11-01 17:12 | PDOC1 ---
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 pt also like to manipulate to different staff , docs and then require for dilaudid all the time and refuse to leave the hosp. Poor home environment, lives alone, sometimes get help from her daughter who refused to pay for her for vancomycin 2 months ago. Cannot send to SNF since she stayed in hosp too long and too many times and SNF too many times too, used up her insurance coverage. Pt said she saw her PCP last month, who aways refused to give her pain meds. She was here 2 weeks ago for UTI symptom, was given bactrim, but symptoms not improving with still dysuria and smells. She said chronic back pain is worse. She was found Cr 2.4 from baseline 1.9, likely 2/2 dehydration. She looks calm to me, refuses to go home. Past Medical History Cardiovascular: HTN Heme/Onc: Anemia NOS Psych: Anxiety, Depression Rheumatologic: Fibromyalgia Infectious disease: Other Renal/: Chronic renal insuff, Other Past Surgical History Past Surgical History: Total knee replacement, Tubal Ligation, Other Family History Family History: Stroke Social History Smoke: No ALCOHOL: heavy Drugs: None Current Medications Current Medications Current Medications Medications (Trade) Dose Ordered Sig/Taz Start Time Stop Time Status Last Admin Dose Admin Acetaminophen (Tylenol) 650 mg PRN Q4HRS PRN 11/01/16 17:00 11/02/16 16:59 UNV Aspirin (Belen Aspirin) 325 mg 1X ONCE 11/01/16 14:45 11/01/16 14:46 DC 11/01/16 14:45 325 MG Ceftriaxone Sodium 50 ml @ 100 mls/hr 1X ONCE 11/01/16 15:45 11/01/16 16:14 DC 11/01/16 15:45 100 MLS/HR Fentanyl Citrate (Fentanyl 2ml Vial) 50 mcg PRN Q15MIN PRN 11/01/16 14:45 11/02/16 14:44 11/01/16 15:36 50 MCG Hydromorphone HCl (Dilaudid) 1 mg 1X ONCE 11/01/16 15:45 11/01/16 15:46 DC 11/01/16 15:45 1 MG Lorazepam (Ativan) 1 mg 1X ONCE 11/01/16 14:45 11/01/16 14:46 DC 11/01/16 14:45 1 MG Multi-Ingredient Mouthwash/Gargle (Gi Cocktail Single Dose) 15 ml 1X ONCE 11/01/16 14:45 11/01/16 14:46 DC 11/01/16 14:45 15 ML Ondansetron HCl (Zofran) 4 mg PRN Q8HRS PRN 11/01/16 17:00 11/02/16 16:59 Sodium Chloride 1,000 ml @ 100 mls/hr Q10H 11/01/16 16:53 11/02/16 16:52 UNV Allergies Allergies Allergies Coded Allergies Type Severity Reaction Last Updated Verified levofloxacin Allergy Intermediate 08/16/16 Yes morphine Allergy Intermediate tolerates Dilaudid 07/26/16 Yes I S O L A T I O N *CONTACT* Allergy Unknown 07/26/16 Yes diphenhydramine HCl Adverse Reaction Intermediate "Jittery on the inside" 07/26 Yes ROS Review of System CONSTITUTIONAL: No fever or chills EYES: No recent changes SKIN: No rash or itching CARDIOVASCULAR: No chest pain, syncope, palpitations, or edema RESPIRATORY: No SOB or cough GASTROINTESTINAL: No nausea, vomiting or abdominal pain NEUROLOGICAL: No headaches or weakness ENDOCRINE: No cold or heat intolerance GENITOURINARY: No urgency or frequency of urination MUSCULOSKELETAL: No back pain or joint pain LYMPHATICS: No enlarged lymph nodes PSYCHIATRIC: No anxiety or depression Physical Exam Physical Exam GEN.: No apparent distress. Alert and oriented. HEENT: Head is normocephalic, atraumatic NECK: Supple. LUNGS: Clear to auscultation. HEART: RRR, S1, S2 present. Peripheral pulses intact ABDOMEN: Soft, nontender. Positive bowel sounds. EXTREMITIES: Without any cyanosis. NEUROLOGIC: Normal speech, normal tone PSYCHIATRIC: Normal affect, normal mood. SKIN: No ulcerations Vitals Vitals Vital Signs Date Time Temp Pulse Resp B/P (MAP) Pulse Ox O2 Delivery O2 Flow Rate FiO2 11/01/16 16:23 Room Air 11/01/16 15:43 84 34 138/83 (101) 94 11/01/16 14:10 99.2 99.2 Labs Labs Laboratory Tests Test 11/01/16 14:05 11/01/16 14:23 Urine Collection Type Unknown Urine Color Yellow Urine Clarity Clear Urine pH 8.0 Urine Specific [place] 1.010 Urine Protein 100 mg/dL (NEG-TRACE) Urine Glucose (UA) Negative mg/dL (NEG) Urine Ketones (Stick) Negative mg/dL (NEG) Urine Blood Small (NEG) Urine Nitrite Negative (NEG) Urine Bilirubin Negative (NEG) Urine Urobilinogen Dipstick 0.2 mg/dL (0.2 mg/dL) Urine Leukocyte Esterase Moderate (NEG) Urine RBC 1-2 /HPF (0-2) Urine WBC 11-20 /HPF (0-4) Urine Squamous Epithelial Cells Mod /LPF Urine Transitional Epithelial Cells Few /LPF Urine Bacteria Few /HPF (0-FEW) White Blood Count 17.8 x10^3/uL (4.0-11.0) Red Blood Count 4.38 x10^6/uL (3.50-5.40) Hemoglobin 12.9 g/dL (12.0-15.5) Hematocrit 38.1 % (36.0-47.0) Mean Corpuscular Volume 87 fL (79-100) Mean Corpuscular Hemoglobin 29 pg (25-35) Mean Corpuscular Hemoglobin Concent 34 g/dL (31-37) Red Cell Distribution Width 14.7 % (11.5-14.5) Platelet Count 429 x10^3/uL (140-400) Neutrophils (%) (Auto) 72 % (31-73) Lymphocytes (%) (Auto) 19 % (24-48) Monocytes (%) (Auto) 8 % (0-9) Eosinophils (%) (Auto) 0 % (0-3) Basophils (%) (Auto) 1 % (0-3) Neutrophils # (Auto) 12.8 x10^3uL (1.8-7.7) Lymphocytes # (Auto) 3.4 x10^3/uL (1.0-4.8) Monocytes # (Auto) 1.4 x10^3/uL (0.0-1.1) Eosinophils # (Auto) 0.1 x10^3/uL (0.0-0.7) Basophils # (Auto) 0.1 x10^3/uL (0.0-0.2) Sodium Level 138 mmol/L (136-145) Potassium Level 4.4 mmol/L (3.5-5.1) Chloride Level 94 mmol/L (98-107) Carbon Dioxide Level 32 mmol/L (21-32) Anion Gap 12 (6-14) Blood Urea Nitrogen 39 mg/dL (7-20) Creatinine 2.4 mg/dL (0.6-1.0) Estimated GFR (Cockcroft-Gault) 20.6 Glucose Level 100 mg/dL (70-99) Calcium Level 10.5 mg/dL (8.5-10.1) Total Bilirubin 0.3 mg/dL (0.2-1.0) Direct Bilirubin 0.1 mg/dL (0.0-0.2) Aspartate Amino Transf (AST/SGOT) 27 U/L (15-37) Alanine Aminotransferase (ALT/SGPT) 18 U/L (14-59) Alkaline Phosphatase 82 U/L (46-116) Troponin I Quantitative < 0.017 ng/mL (0.000-0.055) NN-Xik-Q-Type Natriuretic Peptide 1412 pg/mL (0-124) Total Protein 8.4 g/dL (6.4-8.2) Albumin 3.5 g/dL (3.4-5.0) Lipase 283 U/L (73-393) Laboratory Tests Test 11/01/16 14:05 11/01/16 14:23 Urine Collection Type Unknown Urine Color Yellow Urine Clarity Clear Urine pH 8.0 Urine Specific [place] 1.010 Urine Protein 100 mg/dL (NEG-TRACE) Urine Glucose (UA) Negative mg/dL (NEG) Urine Ketones (Stick) Negative mg/dL (NEG) Urine Blood Small (NEG) Urine Nitrite Negative (NEG) Urine Bilirubin Negative (NEG) Urine Urobilinogen Dipstick 0.2 mg/dL (0.2 mg/dL) Urine Leukocyte Esterase Moderate (NEG) Urine RBC 1-2 /HPF (0-2) Urine WBC 11-20 /HPF (0-4) Urine Squamous Epithelial Cells Mod /LPF Urine Transitional Epithelial Cells Few /LPF Urine Bacteria Few /HPF (0-FEW) White Blood Count 17.8 x10^3/uL (4.0-11.0) Red Blood Count 4.38 x10^6/uL (3.50-5.40) Hemoglobin 12.9 g/dL (12.0-15.5) Hematocrit 38.1 % (36.0-47.0) Mean Corpuscular Volume 87 fL (79-100) Mean Corpuscular Hemoglobin 29 pg (25-35) Mean Corpuscular Hemoglobin Concent 34 g/dL (31-37) Red Cell Distribution Width 14.7 % (11.5-14.5) Platelet Count 429 x10^3/uL (140-400) Neutrophils (%) (Auto) 72 % (31-73) Lymphocytes (%) (Auto) 19 % (24-48) Monocytes (%) (Auto) 8 % (0-9) Eosinophils (%) (Auto) 0 % (0-3) Basophils (%) (Auto) 1 % (0-3) Neutrophils # (Auto) 12.8 x10^3uL (1.8-7.7) Lymphocytes # (Auto) 3.4 x10^3/uL (1.0-4.8) Monocytes # (Auto) 1.4 x10^3/uL (0.0-1.1) Eosinophils # (Auto) 0.1 x10^3/uL (0.0-0.7) Basophils # (Auto) 0.1 x10^3/uL (0.0-0.2) Sodium Level 138 mmol/L (136-145) Potassium Level 4.4 mmol/L (3.5-5.1) Chloride Level 94 mmol/L (98-107) Carbon Dioxide Level 32 mmol/L (21-32) Anion Gap 12 (6-14) Blood Urea Nitrogen 39 mg/dL (7-20) Creatinine 2.4 mg/dL (0.6-1.0) Estimated GFR (Cockcroft-Gault) 20.6 Glucose Level 100 mg/dL (70-99) Calcium Level 10.5 mg/dL (8.5-10.1) Total Bilirubin 0.3 mg/dL (0.2-1.0) Direct Bilirubin 0.1 mg/dL (0.0-0.2) Aspartate Amino Transf (AST/SGOT) 27 U/L (15-37) Alanine Aminotransferase (ALT/SGPT) 18 U/L (14-59) Alkaline Phosphatase 82 U/L (46-116) Troponin I Quantitative < 0.017 ng/mL (0.000-0.055) DV-Owa-B-Type Natriuretic Peptide 1412 pg/mL (0-124) Total Protein 8.4 g/dL (6.4-8.2) Albumin 3.5 g/dL (3.4-5.0) Lipase 283 U/L (73-393) VTE Prophylaxis Ordered VTE Prophylaxis Devices: Yes VTE Pharmacological Prophylaxi: Yes Assessment/Plan Assessment/Plan UTI with h/o chronic UTI chronic abd pain chronic back pain GILES with Vasomotor, dehydration 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
[2016-11-01] MEDS ORDERED: traMADol 50 MG TABLET PO PRN (17:15)
--- NOTE | 2016-11-01 17:29 | PHYS DOC ---
Past Medical History Past Medical History: Alcoholism, Anxiety, Arthritis, Hypertension, Other Additional Past Medical Histor: c diff, chronic n/v/d & abdominal pain, gastritis, renal insufficiency Past Surgical History: Knee Replacement, Other Additional Past Surgical Histo: back and foot surger, LEFT KNEE REPLACEMENT X2 Alcohol Use: Occasionally Drug Use: Opiates Adult General Chief Complaint Chief Complaint: CHEST PAIN HPI HPI Patient is a 61 year old female who presents with abdominal pain. The patient reports 2 day history of epigastric pain & flank pain. She reports numerous episodes of vomiting & diarrhea. Denies fevers/chills, hematemesis, hematochezia/melena, dysuria/hematuria. Reports burning pain radiating to center of chest. She has history of gastroparesis & chronic abdominal pain, well known to this emergency department. PCP at [facility]. Review of Systems Review of Systems Constitutional: Denies fever or chills Eyes: Denies change in visual acuity HENT: Denies nasal congestion or sore throat Respiratory: Denies cough or shortness of breath Cardiovascular: Denies chest pain or edema GI: Reports abdominal pain, nausea, vomiting, and diarrhea, denies bloody stools : Denies dysuria or hematuria Musculoskeletal: Denies back pain or joint pain Integument: Denies rash or skin lesions Neurologic: Denies headache, focal weakness or sensory changes Current Medications Current Medications Current Medications Medications (Trade) Dose Ordered Sig/Taz Start Time Stop Time Status Last Admin Dose Admin Acetaminophen (Tylenol) 650 mg PRN Q6HRS PRN 11/01/16 17:00 Acetaminophen/ Codeine Phosphate (Tylenol #3) 1 tab PRN Q6HRS PRN 11/01/16 17:00 UNV Alprazolam (Xanax) 0.5 mg BID PRN 11/01/16 17:00 Aspirin (Belen Aspirin) 325 mg 1X ONCE 11/01/16 14:45 11/01/16 14:46 DC 11/01/16 14:45 325 MG Ceftriaxone Sodium 1 gm/ Sodium Chloride 50 ml @ 100 mls/hr Q24H 11/02/16 08:00 UNV Ceftriaxone Sodium 50 ml @ 100 mls/hr 1X ONCE 11/01/16 15:45 11/01/16 16:14 DC 11/01/16 15:45 100 MLS/HR Escitalopram Oxalate (Lexapro) 10 mg DAILY 11/02/16 09:00 UNV Fentanyl Citrate (Fentanyl 2ml Vial) 50 mcg PRN Q15MIN PRN 11/01/16 14:45 11/02/16 14:44 11/01/16 17:14 50 MCG Hydralazine HCl (Apresoline) 10 mg PRN Q4HRS PRN 11/01/16 17:00 Hydromorphone HCl (Dilaudid) 0.5 mg PRN Q4HRS PRN 11/01/16 17:00 UNV Lisinopril (Prinivil) 10 mg DAILY 11/02/16 09:00 UNV Lorazepam (Ativan) 2 mg PRN Q4HRS PRN 11/01/16 17:15 UNV Metoclopramide HCl (Reglan) 10 mg QID 11/01/16 17:00 Multi-Ingredient Mouthwash/Gargle (Gi Cocktail Single Dose) 15 ml 1X ONCE 11/01/16 14:45 11/01/16 14:46 DC 11/01/16 14:45 15 ML Non-Formulary Medication 20 mg DAILY 11/02/16 09:00 UNV Ondansetron HCl (Zofran) 4 mg PRN Q6HRS PRN 11/01/16 17:00 Sodium Chloride 1,000 ml @ 100 mls/hr Q10H 11/01/16 17:15 11/02/16 17:14 Tramadol HCl (Ultram) 100 mg PRN Q6HRS PRN 11/01/16 17:15 UNV Allergies Allergies Allergies Coded Allergies Type Severity Reaction Last Updated Verified levofloxacin Allergy Intermediate 08/16/16 Yes morphine Allergy Intermediate tolerates Dilaudid 07/26/16 Yes I S O L A T I O N *CONTACT* Allergy Unknown 07/26/16 Yes diphenhydramine HCl Adverse Reaction Intermediate "Jittery on the inside" 07/26 Yes Physical Exam Physical Exam Constitutional: Well developed, well nourished, no acute distress, non-toxic appearance. HENT: Normocephalic, atraumatic, bilateral external ears normal, oropharynx moist, nose normal. Eyes: PERRLA, EOMI, conjunctiva normal, no discharge. Neck: supple, no stridor. Cardiovascular: Tachycardic, regular, no murmurs, no edema. Lungs & Thorax: LCTAB, no wheezing, no respiratory distress. Abdomen: Normal bowel sounds, soft, epigastric tenderness without rebound or guarding, no masses or pulsatile masses, nondistended. Skin: Warm, dry, no erythema, no rash. Back: Bilateral CVA and lower back tenderness. It is present Extremities: No tenderness, no edema. Neurologic: Alert and oriented X 3, no focal deficits noted. Psychologic: Affect normal, judgement normal, mood normal. Current Patient Data Vital Signs Vital Signs Date Time Temp Pulse Resp B/P (MAP) Pulse Ox O2 Delivery O2 Flow Rate FiO2 11/01/16 17:14 Room Air 11/01/16 15:43 84 34 138/83 (101) 94 11/01/16 14:10 99.2 99.2 Lab Values Laboratory Tests Test 11/01/16 14:05 11/01/16 14:23 Urine Collection Type Unknown Urine Color Yellow Urine Clarity Clear Urine pH 8.0 Urine Specific [place] 1.010 Urine Protein 100 mg/dL (NEG-TRACE) Urine Glucose (UA) Negative mg/dL (NEG) Urine Ketones (Stick) Negative mg/dL (NEG) Urine Blood Small (NEG) Urine Nitrite Negative (NEG) Urine Bilirubin Negative (NEG) Urine Urobilinogen Dipstick 0.2 mg/dL (0.2 mg/dL) Urine Leukocyte Esterase Moderate (NEG) Urine RBC 1-2 /HPF (0-2) Urine WBC 11-20 /HPF (0-4) Urine Squamous Epithelial Cells Mod /LPF Urine Transitional Epithelial Cells Few /LPF Urine Bacteria Few /HPF (0-FEW) White Blood Count 17.8 x10^3/uL (4.0-11.0) H Red Blood Count 4.38 x10^6/uL (3.50-5.40) Hemoglobin 12.9 g/dL (12.0-15.5) Hematocrit 38.1 % (36.0-47.0) Mean Corpuscular Volume 87 fL (79-100) Mean Corpuscular Hemoglobin 29 pg (25-35) Mean Corpuscular Hemoglobin Concent 34 g/dL (31-37) Red Cell Distribution Width 14.7 % (11.5-14.5) H Platelet Count 429 x10^3/uL (140-400) H Neutrophils (%) (Auto) 72 % (31-73) Lymphocytes (%) (Auto) 19 % (24-48) L Monocytes (%) (Auto) 8 % (0-9) Eosinophils (%) (Auto) 0 % (0-3) Basophils (%) (Auto) 1 % (0-3) Neutrophils # (Auto) 12.8 x10^3uL (1.8-7.7) H Lymphocytes # (Auto) 3.4 x10^3/uL (1.0-4.8) Monocytes # (Auto) 1.4 x10^3/uL (0.0-1.1) H Eosinophils # (Auto) 0.1 x10^3/uL (0.0-0.7) Basophils # (Auto) 0.1 x10^3/uL (0.0-0.2) Sodium Level 138 mmol/L (136-145) Potassium Level 4.4 mmol/L (3.5-5.1) Chloride Level 94 mmol/L (98-107) L Carbon Dioxide Level 32 mmol/L (21-32) Anion Gap 12 (6-14) Blood Urea Nitrogen 39 mg/dL (7-20) H Creatinine 2.4 mg/dL (0.6-1.0) H Estimated GFR (Cockcroft-Gault) 20.6 Glucose Level 100 mg/dL (70-99) H Calcium Level 10.5 mg/dL (8.5-10.1) H Total Bilirubin 0.3 mg/dL (0.2-1.0) Direct Bilirubin 0.1 mg/dL (0.0-0.2) Aspartate Amino Transferase (AST) 27 U/L (15-37) Alanine Aminotransferase (ALT) 18 U/L (14-59) Alkaline Phosphatase 82 U/L (46-116) Troponin I Quantitative < 0.017 ng/mL (0.000-0.055) QZ-Rcc-Y-Type Natriuretic Peptide 1412 pg/mL (0-124) H Total Protein 8.4 g/dL (6.4-8.2) H Albumin 3.5 g/dL (3.4-5.0) Lipase 283 U/L (73-393) Laboratory Tests 11/01/16 14:23 Laboratory Tests 11/01/16 14:23 EKG EKG interpreted by me: NSR rate 90, no acute ST/T wave changes, QTc prolonged 481 ms, no ectopy.[] Radiology/Procedures Radiology/Procedures PROCEDURE: CHEST AP ONLY Portable chest, 11/01/2016: History: Chest pain Comparison is made to a study from 09/04/2016. The heart size and pulmonary vascularity are normal. No pulmonary infiltrate is seen. There is no evidence of pleural fluid. IMPRESSION: No acute cardiopulmonary abnormality is detected. DICTATED and SIGNED BY: FRANSISCO TREJO MD DATE: 11/01/16 1444[] Course & Med Decision Making Course & Med Decision Making Pertinent Labs and Imaging studies reviewed. (See chart for details) The patient presents with abdominal pain & chest pain. Gave IV fluids, zofran, pain medication, aspirin, & GI cocktail. Obtained labs, EKG, CXR, UA. She has UTI, leukocytosis, acute renal failure. Mild tachycardia resolved with IV fluids. Pain persistent. She recently took bactrim for UTI without resolution of symptoms. She did not improve with treatment here. Gave IV rocephin. Discussed with Dr. Mcgill who agrees to admit to inpatient status. The patient is admitted in stable condition. [] Dragon Disclaimer Dragon Disclaimer This electronic medical record was generated, in whole or in part, using a voice recognition dictation system. Departure Departure Impression: Primary Impression: Pyelonephritis Additional Impressions: Leukocytosis Acute renal failure Vomiting and diarrhea Gastroparesis Disposition: ADMITTED INPATIENT Admitting Physician: Franck Mcgill Condition: STABLE Problem Qualifiers JOSE C CHUA MD November 01, 2016 17:29
--- NOTE | 2016-11-01 18:20 | ACF ---
Admission Forms Criteria PYELONEPHRITIS, ACUTE Clinical Indications for Admission to Inpatient Care (Place 'X' for any and all applicable criteria): Admission is indicated for ANY ONE of the following 1,2,3,4,5 [ ]I. Outpatient treatment has failed or is not feasible (eg, multidrug- resistant organism).5 [ ]II. beyond 24 weeks' gestation6 [ ]III. Hemodynamic instability [ ]IV. Immunocompromised state (eg, AIDS, diabetes, sickle cell disease) [ ]V. Known renal or urologic abnormalities (eg, indwelling catheter, structural abnormalities, renal calculi, urinary stent, previous urologic surgery) [ ]. Condition that requires drainage procedure, including ANY ONE of the following: [ ]a) Urinary obstruction [ ]b) Pyelitis [ ]c) Pyonephrosis [ ]d) Renal or perinephric abscess [ ]e) Emphysematous pyelonephritis 7 [X]VII. Inpatient admission required rather than observation care (Also use Pyelonephritis, Acute: Observation Care Criteria as appropriate) because of ANY ONE of the following: [ ]a) High fever or infection requiring inpatient admission as indicated by ANY ONE of [id number] [ ]A. Documented bacteremia [ ]B. Temp>104.9 [id number] (oral) [ ]C. Temp>103.10F (oral) or <96.80F (rectal) that does not respond to all emergency treatment [X]b) Acute renal failure [ ]c) Other significant finding or clinical condition judged not to be within the scope of observation care [ ]d) IV fluid to replace significant ongoing (eg, for over 24hrs) losses (> 3 L/m2 per day) [ ]e) Other condition,treatment or monitoring requiring inpatient admission The original [facility] content created by [employer] has been revised. The portions of the content which have been revised are identified through the use of italic text or in bold, and [facility] has neither reviewed nor approved the modified material. All other unmodified content is copyright [facility]. Please see references footnoted in the original [facility] edition 2016 Admission Criteria Met?: Yes DUANE MILLER November 01, 2016 18:20
[2016-11-01 19:38] VITALS: BP 115/75
[2016-11-01] MEDS: IV NORMAL SALINE 1000ML BAG 1,000 ML IV SCH (20:27)
[2016-11-01] MEDS: HYDROmorphone 2 MG TABLET PO PRN (20:33)
[2016-11-01 23:00] VITALS: BP 137/86
[2016-11-02] VITALS (8 sets, daily range): BP systolic 100–176; BP diastolic 60–99
[2016-11-02 03:43] LABS: BASO # 0.1 x10^3/uL (0.0-0.2); BASO % 1 % (0-3); EOS % 4 % (0-3); HEMATOCRIT 32.2 % (36.0-47.0); HEMOGLOBIN 11.1 g/dL (12.0-15.5); LYMPH # 2.4 x10^3/uL (1.0-4.8); LYMPH % 29 % (24-48); MEAN CORPUSCULAR HEMOGLOBIN 31 pg (25-35); MEAN CORPUSCULAR HGB CONC 34 g/dL (31-37); MEAN CORPUSCULAR VOLUME 90 fL (79-100); MONO % 13 % (0-9); NEUT % 54 % (31-73); PLATELET COUNT 293 x10^3/uL (140-400); RED CELL DISTRIBUTION WIDTH 14.8 % (11.5-14.5); WHITE BLOOD COUNT 8.5 x10^3/uL (4.0-11.0)
[2016-11-02 04:04] LABS: CALCIUM 8.6 mg/dL (8.5-10.1); CREATININE 2.4 mg/dL (0.6-1.0); GFR 20.6; POTASSIUM 3.5 mmol/L (3.5-5.1)
[2016-11-02] MEDS: IV NORMAL SALINE 1000ML BAG 1,000 ML IV SCH ×2 (06:09→15:42)
[2016-11-02] MEDS: METOCLOPRAMIDE 10 MG TABLET. PO SCH ×4 (08:02→19:51)
[2016-11-02] MEDS: ESCITALOPRAM 10 MG TABLET. PO SCH (08:02)
[2016-11-02] MEDS: PANTOPRAZOLE 40 MG TABLET.DR. PO SCH (08:02)
[2016-11-02] MEDS: LISINOPRIL 10 MG TABLET PO SCH (08:03)
[2016-11-02] MEDS: HYDROmorphone 2 MG TABLET PO PRN ×3 (08:09→19:51)
[2016-11-02] MEDS ORDERED: HYDROmorphone 2 MG/ML VIAL IVP PRN (09:30)
--- NOTE | 2016-11-02 10:59 | PDOC ---
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 CKD 3 ETOH dependence GAstroparesis HTN, uncontrolled chronic Nausea/Vomiting with gastroparesis possibly Neurogenic bladder self caths intermittently chronic Diarrhea with h/o cdiff colitis SIRS with uti, no sepsis History of Present Illness History of Present Illness asleep, known to me Admittd for uTI and GILES on CKD CRea higher than baseline PT hx complicated uTI - self caths Urine cx pending WBC down to normal now NO temps Plan: Await urine C and S Contr iV rocephin for now COnt NS Renal consult for GILES on CKD REsume home meds Requests IV dilaudid Vitals Vitals Vital Signs Date Time Temp Pulse Resp B/P (MAP) Pulse Ox O2 Delivery O2 Flow Rate FiO2 11/02/16 09:09 17 Room Air 11/02/16 08:03 84 147/91 11/02/16 07:00 98.7 98 98.7 Physical Exam General: Cooperative Heart: Regular rate, Normal S1, Normal S2 Lungs: Clear Abdomen: Normal bowel sounds, Soft Extremities: No clubbing, No cyanosis Skin: No rashes, No breakdown Labs LABS Laboratory Tests Test 11/01/16 14:05 11/01/16 14:23 11/02/16 03:15 Urine Collection Type Unknown Urine Color Yellow Urine Clarity Clear Urine pH 8.0 Urine Specific [place]wl 1.010 Urine Protein 100 mg/dL (NEG-TRACE) Urine Glucose (UA) Negative mg/dL (NEG) Urine Ketones (Stick) Negative mg/dL (NEG) Urine Blood Small (NEG) Urine Nitrite Negative (NEG) Urine Bilirubin Negative (NEG) Urine Urobilinogen Dipstick 0.2 mg/dL (0.2 mg/dL) Urine Leukocyte Esterase Moderate (NEG) Urine RBC 1-2 /HPF (0-2) Urine WBC 11-20 /HPF (0-4) Urine Squamous Epithelial Cells Mod /LPF Urine Transitional Epithelial Cells Few /LPF Urine Bacteria Few /HPF (0-FEW) White Blood Count 17.8 x10^3/uL (4.0-11.0) 8.5 x10^3/uL (4.0-11.0) Red Blood Count 4.38 x10^6/uL (3.50-5.40) 3.60 x10^6/uL (3.50-5.40) Hemoglobin 12.9 g/dL (12.0-15.5) 11.1 g/dL (12.0-15.5) Hematocrit 38.1 % (36.0-47.0) 32.2 % (36.0-47.0) Mean Corpuscular Volume 87 fL (79-100) 90 fL (79-100) Mean Corpuscular Hemoglobin 29 pg (25-35) 31 pg (25-35) Mean Corpuscular Hemoglobin Concent 34 g/dL (31-37) 34 g/dL (31-37) Red Cell Distribution Width 14.7 % (11.5-14.5) 14.8 % (11.5-14.5) Platelet Count 429 x10^3/uL (140-400) 293 x10^3/uL (140-400) Neutrophils (%) (Auto) 72 % (31-73) 54 % (31-73) Lymphocytes (%) (Auto) 19 % (24-48) 29 % (24-48) Monocytes (%) (Auto) 8 % (0-9) 13 % (0-9) Eosinophils (%) (Auto) 0 % (0-3) 4 % (0-3) Basophils (%) (Auto) 1 % (0-3) 1 % (0-3) Neutrophils # (Auto) 12.8 x10^3uL (1.8-7.7) 4.5 x10^3uL (1.8-7.7) Lymphocytes # (Auto) 3.4 x10^3/uL (1.0-4.8) 2.4 x10^3/uL (1.0-4.8) Monocytes # (Auto) 1.4 x10^3/uL (0.0-1.1) 1.1 x10^3/uL (0.0-1.1) Eosinophils # (Auto) 0.1 x10^3/uL (0.0-0.7) 0.3 x10^3/uL (0.0-0.7) Basophils # (Auto) 0.1 x10^3/uL (0.0-0.2) 0.1 x10^3/uL (0.0-0.2) Sodium Level 138 mmol/L (136-145) 139 mmol/L (136-145) Potassium Level 4.4 mmol/L (3.5-5.1) 3.5 mmol/L (3.5-5.1) Chloride Level 94 mmol/L (98-107) 101 mmol/L (98-107) Carbon Dioxide Level 32 mmol/L (21-32) 33 mmol/L (21-32) Anion Gap 12 (6-14) 5 (6-14) Blood Urea Nitrogen 39 mg/dL (7-20) 38 mg/dL (7-20) Creatinine 2.4 mg/dL (0.6-1.0) 2.4 mg/dL (0.6-1.0) Estimated GFR (Cockcroft-Gault) 20.6 20.6 Glucose Level 100 mg/dL (70-99) 94 mg/dL (70-99) Calcium Level 10.5 mg/dL (8.5-10.1) 8.6 mg/dL (8.5-10.1) Total Bilirubin 0.3 mg/dL (0.2-1.0) Direct Bilirubin 0.1 mg/dL (0.0-0.2) Aspartate Amino Transf (AST/SGOT) 27 U/L (15-37) Alanine Aminotransferase (ALT/SGPT) 18 U/L (14-59) Alkaline Phosphatase 82 U/L (46-116) Troponin I Quantitative < 0.017 ng/mL (0.000-0.055) [id number]-Type Natriuretic Peptide 1412 pg/mL (0-124) Total Protein 8.4 g/dL (6.4-8.2) Albumin 3.5 g/dL (3.4-5.0) Lipase 283 U/L (73-393) Review of Systems Review of Systems asleep - did not obtain - but known to have chronic abd pain, nausea but no emesis or CP Assessment and Plan Assessmemt and Plan Problems Medical Problems: (1) Acute renal failure Status: Acute (2) Gastroparesis Status: Acute (3) Leukocytosis Status: Acute (4) Pyelonephritis Status: Acute (5) Vomiting and diarrhea Status: Acute Problems: Comment Review of Relevant I have reviewed the following items blade (where applicable) has been applied. Labs Laboratory Tests Test 11/01/16 14:05 11/01/16 14:23 11/02/16 03:15 Urine Collection Type Unknown Urine Color Yellow Urine Clarity Clear Urine pH 8.0 Urine Specific [place] 1.010 Urine Protein 100 mg/dL (NEG-TRACE) Urine Glucose (UA) Negative mg/dL (NEG) Urine Ketones (Stick) Negative mg/dL (NEG) Urine Blood Small (NEG) Urine Nitrite Negative (NEG) Urine Bilirubin Negative (NEG) Urine Urobilinogen Dipstick 0.2 mg/dL (0.2 mg/dL) Urine Leukocyte Esterase Moderate (NEG) Urine RBC 1-2 /HPF (0-2) Urine WBC 11-20 /HPF (0-4) Urine Squamous Epithelial Cells Mod /LPF Urine Transitional Epithelial Cells Few /LPF Urine Bacteria Few /HPF (0-FEW) White Blood Count 17.8 x10^3/uL (4.0-11.0) 8.5 x10^3/uL (4.0-11.0) Red Blood Count 4.38 x10^6/uL (3.50-5.40) 3.60 x10^6/uL (3.50-5.40) Hemoglobin 12.9 g/dL (12.0-15.5) 11.1 g/dL (12.0-15.5) Hematocrit 38.1 % (36.0-47.0) 32.2 % (36.0-47.0) Mean Corpuscular Volume 87 fL (79-100) 90 fL (79-100) Mean Corpuscular Hemoglobin 29 pg (25-35) 31 pg (25-35) Mean Corpuscular Hemoglobin Concent 34 g/dL (31-37) 34 g/dL (31-37) Red Cell Distribution Width 14.7 % (11.5-14.5) 14.8 % (11.5-14.5) Platelet Count 429 x10^3/uL (140-400) 293 x10^3/uL (140-400) Neutrophils (%) (Auto) 72 % (31-73) 54 % (31-73) Lymphocytes (%) (Auto) 19 % (24-48) 29 % (24-48) Monocytes (%) (Auto) 8 % (0-9) 13 % (0-9) Eosinophils (%) (Auto) 0 % (0-3) 4 % (0-3) Basophils (%) (Auto) 1 % (0-3) 1 % (0-3) Neutrophils # (Auto) 12.8 x10^3uL (1.8-7.7) 4.5 x10^3uL (1.8-7.7) Lymphocytes # (Auto) 3.4 x10^3/uL (1.0-4.8) 2.4 x10^3/uL (1.0-4.8) Monocytes # (Auto) 1.4 x10^3/uL (0.0-1.1) 1.1 x10^3/uL (0.0-1.1) Eosinophils # (Auto) 0.1 x10^3/uL (0.0-0.7) 0.3 x10^3/uL (0.0-0.7) Basophils # (Auto) 0.1 x10^3/uL (0.0-0.2) 0.1 x10^3/uL (0.0-0.2) Sodium Level 138 mmol/L (136-145) 139 mmol/L (136-145) Potassium Level 4.4 mmol/L (3.5-5.1) 3.5 mmol/L (3.5-5.1) Chloride Level 94 mmol/L (98-107) 101 mmol/L (98-107) Carbon Dioxide Level 32 mmol/L (21-32) 33 mmol/L (21-32) Anion Gap 12 (6-14) 5 (6-14) Blood Urea Nitrogen 39 mg/dL (7-20) 38 mg/dL (7-20) Creatinine 2.4 mg/dL (0.6-1.0) 2.4 mg/dL (0.6-1.0) Estimated GFR (Cockcroft-Gault) 20.6 20.6 Glucose Level 100 mg/dL (70-99) 94 mg/dL (70-99) Calcium Level 10.5 mg/dL (8.5-10.1) 8.6 mg/dL (8.5-10.1) Total Bilirubin 0.3 mg/dL (0.2-1.0) Direct Bilirubin 0.1 mg/dL (0.0-0.2) Aspartate Amino Transf (AST/SGOT) 27 U/L (15-37) Alanine Aminotransferase (ALT/SGPT) 18 U/L (14-59) Alkaline Phosphatase 82 U/L (46-116) Troponin I Quantitative < 0.017 ng/mL (0.000-0.055) [id number]-Type Natriuretic Peptide 1412 pg/mL (0-124) Total Protein 8.4 g/dL (6.4-8.2) Albumin 3.5 g/dL (3.4-5.0) Lipase 283 U/L (73-393) Laboratory Tests Test 11/01/16 14:05 11/01/16 14:23 11/02/16 03:15 Urine Collection Type Unknown Urine Color Yellow Urine Clarity Clear Urine pH 8.0 Urine Specific [place] 1.010 Urine Protein 100 mg/dL (NEG-TRACE) Urine Glucose (UA) Negative mg/dL (NEG) Urine Ketones (Stick) Negative mg/dL (NEG) Urine Blood Small (NEG) Urine Nitrite Negative (NEG) Urine Bilirubin Negative (NEG) Urine Urobilinogen Dipstick 0.2 mg/dL (0.2 mg/dL) Urine Leukocyte Esterase Moderate (NEG) Urine RBC 1-2 /HPF (0-2) Urine WBC 11-20 /HPF (0-4) Urine Squamous Epithelial Cells Mod /LPF Urine Transitional Epithelial Cells Few /LPF Urine Bacteria Few /HPF (0-FEW) White Blood Count 17.8 x10^3/uL (4.0-11.0) 8.5 x10^3/uL (4.0-11.0) Red Blood Count 4.38 x10^6/uL (3.50-5.40) 3.60 x10^6/uL (3.50-5.40) Hemoglobin 12.9 g/dL (12.0-15.5) 11.1 g/dL (12.0-15.5) Hematocrit 38.1 % (36.0-47.0) 32.2 % (36.0-47.0) Mean Corpuscular Volume 87 fL (79-100) 90 fL (79-100) Mean Corpuscular Hemoglobin 29 pg (25-35) 31 pg (25-35) Mean Corpuscular Hemoglobin Concent 34 g/dL (31-37) 34 g/dL (31-37) Red Cell Distribution Width 14.7 % (11.5-14.5) 14.8 % (11.5-14.5) Platelet Count 429 x10^3/uL (140-400) 293 x10^3/uL (140-400) Neutrophils (%) (Auto) 72 % (31-73) 54 % (31-73) Lymphocytes (%) (Auto) 19 % (24-48) 29 % (24-48) Monocytes (%) (Auto) 8 % (0-9) 13 % (0-9) Eosinophils (%) (Auto) 0 % (0-3) 4 % (0-3) Basophils (%) (Auto) 1 % (0-3) 1 % (0-3) Neutrophils # (Auto) 12.8 x10^3uL (1.8-7.7) 4.5 x10^3uL (1.8-7.7) Lymphocytes # (Auto) 3.4 x10^3/uL (1.0-4.8) 2.4 x10^3/uL (1.0-4.8) Monocytes # (Auto) 1.4 x10^3/uL (0.0-1.1) 1.1 x10^3/uL (0.0-1.1) Eosinophils # (Auto) 0.1 x10^3/uL (0.0-0.7) 0.3 x10^3/uL (0.0-0.7) Basophils # (Auto) 0.1 x10^3/uL (0.0-0.2) 0.1 x10^3/uL (0.0-0.2) Sodium Level 138 mmol/L (136-145) 139 mmol/L (136-145) Potassium Level 4.4 mmol/L (3.5-5.1) 3.5 mmol/L (3.5-5.1) Chloride Level 94 mmol/L (98-107) 101 mmol/L (98-107) Carbon Dioxide Level 32 mmol/L (21-32) 33 mmol/L (21-32) Anion Gap 12 (6-14) 5 (6-14) Blood Urea Nitrogen 39 mg/dL (7-20) 38 mg/dL (7-20) Creatinine 2.4 mg/dL (0.6-1.0) 2.4 mg/dL (0.6-1.0) Estimated GFR (Cockcroft-Gault) 20.6 20.6 Glucose Level 100 mg/dL (70-99) 94 mg/dL (70-99) Calcium Level 10.5 mg/dL (8.5-10.1) 8.6 mg/dL (8.5-10.1) Total Bilirubin 0.3 mg/dL (0.2-1.0) Direct Bilirubin 0.1 mg/dL (0.0-0.2) Aspartate Amino Transf (AST/SGOT) 27 U/L (15-37) Alanine Aminotransferase (ALT/SGPT) 18 U/L (14-59) Alkaline Phosphatase 82 U/L (46-116) Troponin I Quantitative < 0.017 ng/mL (0.000-0.055) QU-[id number]-Type Natriuretic Peptide 1412 pg/mL (0-124) Total Protein 8.4 g/dL (6.4-8.2) Albumin 3.5 g/dL (3.4-5.0) Lipase 283 U/L (73-393) Medications Current Medications Aspirin (Synergy Hub Aspirin) 325 mg 1X ONCE PO Last administered on 11/01/16 14:45 ; Start 11/01/16 at 14:45; Stop 11/01/16 at 14:46; Status DC Sodium Chloride 1,000 ml @ 1,000 mls/hr 1X ONCE IV Last administered on 14:45; Start 11/01/16 at 14:45; Stop 11/01/16 at 15:44; Status DC Ondansetron HCl (Zofran) 4 mg 1X ONCE IV Last administered on 11/01/16 14:45; Start 11/01/16 at 14:45; Stop 11/01/16 at 14:46; Status DC Lorazepam (Ativan) 1 mg 1X ONCE IV Last administered on 11/01/16 14:45; Start 11/01/16 at 14:45; Stop 11/01/16 at 14:46; Status DC Fentanyl Citrate (Fentanyl 2ml Vial) 50 mcg PRN Q15MIN PRN IV PAIN GREATER THAN 3/10 Last administered on 11/01/16 18:00; Start 11/01/16 at 14:45; Stop 11/02 at 09:29; Status DC Multi-Ingredient Mouthwash/Gargle (Gi Cocktail Single Dose) 15 ml 1X ONCE SWSW Last administered on 11/01/16 14:45; Start 11/01/16 at 14:45; Stop 11/01/16 at 14:46; Status DC Ceftriaxone Sodium 50 ml @ 100 mls/hr 1X ONCE IV Last administered on 15:45; Start 11/01/16 at 15:45; Stop 11/01/16 at 16:14; Status DC Hydromorphone HCl (Dilaudid) 1 mg 1X ONCE IV Last administered on 11/01/16 15: 45; Start 11/01/16 at 15:45; Stop 11/01/16 at 15:46; Status DC Ondansetron HCl (Zofran) 4 mg PRN Q8HRS PRN IV NAUSEA/VOMITING; Start 11/01/16 at 17:00; Stop 11/02/16 at 16:59 Sodium Chloride 1,000 ml @ 100 mls/hr Q10H IV Last administered on 11/02/16 06 :09; Start 11/01/16 at 17:15; Stop 11/02/16 at 17:14 Acetaminophen (Tylenol) 650 mg PRN Q4HRS PRN PO FEVER Last administered on 18:00; Start 11/01/16 at 17:00; Stop 11/02/16 at 16:59 Acetaminophen/ Codeine Phosphate (Tylenol #3) 1 tab PRN Q6HRS PRN PO PAIN; Start 11/01/16 at 17:00 Alprazolam (Xanax) 0.5 mg BID PRN PO ANXIETY / AGITATION; Start 11/01/16 at 17: 00 Escitalopram Oxalate (Lexapro) 10 mg DAILY PO Last administered on 11/02/16 08: 02; Start 11/02/16 at 09:00 Hydromorphone HCl (Dilaudid) 0.5 mg PRN Q4HRS PRN PO PAIN Last administered on 11/02/16 08:09; Start 11/01/16 at 17:00 Lisinopril (Prinivil) 10 mg DAILY PO Last administered on 11/02/16 08:03; Start 11/02/16 at 09:00 Metoclopramide HCl (Reglan) 10 mg QID PO Last administered on 11/02/16 08:02; Start 11/01/16 at 17:00 Pantoprazole Sodium (Protonix) 40 mg DAILYAC PO Last administered on 11/02/16 08:02; Start 11/02/16 at 07:30 Acetaminophen (Tylenol) 650 mg PRN Q6HRS PRN PO FEVER; Start 11/01/16 at 17:00 Ondansetron HCl (Zofran) 4 mg PRN Q6HRS PRN IV NAUSEA/VOMITING; Start 11/01/16 at 17:00 Ceftriaxone Sodium 1 gm/ Sodium Chloride 50 ml @ 100 mls/hr Q24H IV ; Start 11/02/16 at 16:00 Hydralazine HCl (Apresoline) 10 mg PRN Q4HRS PRN IVP ELEVATED BP, SEE COMMENTS ; Start 11/01/16 at 17:00 Tramadol HCl (Ultram) 100 mg PRN Q6HRS PRN PO PAIN; Start 11/01/16 at 17:15 Lorazepam (Ativan) 2 mg PRN Q4HRS PRN IV ANXIETY / AGITATION Last administered on 11/02/16 08:09; Start 11/01/16 at 17:15; Stop 11/02/16 at 09:29; Status DC Lorazepam (Ativan) 1 mg PRN Q4HRS PRN IV ANXIETY / AGITATION; Start 11/02/16 at 09:30 Hydromorphone HCl (Dilaudid) 0.4 mg PRN Q4HRS PRN IVP PAIN; Start 11/02/16 at 09 :30 Active Scripts Active Bactrim Ds Tablet (Sulfamethoxazole/Trimethoprim) 1 Each Tablet 1 Tab PO BID Tylenol With Codeine #3 Tablet (Acetaminophen/Codeine Phosphate) 1 Each Tablet 1 Tab PO PRN Q6HRS PRN Reglan (Metoclopramide Hcl) 10 Mg Tablet 10 Ml PO QID Dilaudid (Hydromorphone Hcl) 2 Mg Tablet 1 Mg PO PRN Q4HRS PRN Xanax (Alprazolam) 0.5 Mg Tablet 1 Tab PO BID PRN Nexium 24Hr (Esomeprazole Magnesium) 20 Mg Capsule.dr 20 Mg PO DAILY Escitalopram Oxalate 10 Mg Tablet 1 Tab PO DAILY Reported Lisinopril 10 Mg Tablet 1 Tab PO DAILY Vitals/I & O Vital Sign - Last 24 Hours 11/01/16 11/01/16 11/01/16 11/01/16 14:10 14:43 15:08 15:13 Temp 99.2 99.2 Pulse 95 90 80 Resp 17 32 29 B/P (MAP) 165/99 (121) 119/91 (100) 119/78 (92) Pulse Ox 100 98 95 O2 Delivery Room Air Room Air Room Air 11/01/16 11/01/16 11/01/16 11/01/16 15:36 15:43 15:45 16:13 Pulse 84 82 Resp 34 26 B/P (MAP) 138/83 (101) 122/80 (94) Pulse Ox 94 92 O2 Delivery Room Air Room Air 11/01/16 11/01/16 11/01/16 11/01/16 16:23 16:43 17:13 17:14 Pulse 84 88 Resp 23 30 B/P (MAP) 111/79 (90) 114/81 (92) Pulse Ox 94 95 O2 Delivery Room Air Room Air 11/01/16 11/01/16 11/01/16 11/01/16 17:43 17:49 18:00 18:13 Pulse 80 80 Resp 18 29 B/P (MAP) 103/69 (80) 110/77 (88) Pulse Ox 92 91 O2 Delivery Room Air Room Air 11/01/16 11/01/16 11/01/16 11/02/16 19:38 19:48 23:00 03:00 Temp 98.8 98.6 98.6 98.8 98.6 98.6 Pulse 70 76 74 Resp 19 19 19 B/P (MAP) 115/75 (88) 137/86 (103) 143/85 (104) Pulse Ox 92 94 94 O2 Delivery Room Air Room Air Room Air Room Air 11/02/16 11/02/16 11/02/16 11/02/16 07:00 08:03 08:09 09:09 Temp 98.7 98.7 Pulse 81 84 Resp 18 18 17 B/P (MAP) 147/94 (111) 147/91 Pulse Ox 98 O2 Delivery Room Air Room Air Room Air Intake and Output 11/01/16 11/01/16 11/02/16 15:00 23:00 07:00 Intake Total 1050 ml Balance 1050 ml LIDIA URIAS MD November 02, 2016 10:59
--- NOTE | 2016-11-02 11:06 | PDOC2 ---
CONSULT Date of Consult Date of Consult DATE: 11/02/16 TIME: 10:57 Reason for Consult Reason for Consult: GILES/ CKD III Referring Physician Referring Physician: Dr Hill Identification/Chief Complaint Chief Complaint NVD Problems: Source Source: Chart review, Patient History of Present Illness Reason for Visit: as dictated Past Medical History Cardiovascular: HTN Heme/Onc: Anemia NOS Psych: Anxiety, Depression Rheumatologic: Fibromyalgia Infectious disease: Other Renal/: Chronic renal insuff, Other Past Surgical History Past Surgical History: Total knee replacement, Tubal Ligation, Other Family History Family History: Stroke Social History No ALCOHOL: heavy Drugs: None Lives: Alone Current Problem List Problem List Problems Medical Problems: (1) Acute renal failure Status: Acute (2) Gastroparesis Status: Acute (3) Leukocytosis Status: Acute (4) Pyelonephritis Status: Acute (5) Vomiting and diarrhea Status: Acute Current Medications Current Medications Current Medications Aspirin (Belen Aspirin) 325 mg 1X ONCE PO Last administered on 11/01/16 14:45 ; Start 11/01/16 at 14:45; Stop 11/01/16 at 14:46; Status DC Sodium Chloride 1,000 ml @ 1,000 mls/hr 1X ONCE IV Last administered on 14:45; Start 11/01/16 at 14:45; Stop 11/01/16 at 15:44; Status DC Ondansetron HCl (Zofran) 4 mg 1X ONCE IV Last administered on 11/01/16 14:45; Start 11/01/16 at 14:45; Stop 11/01/16 at 14:46; Status DC Lorazepam (Ativan) 1 mg 1X ONCE IV Last administered on 11/01/16 14:45; Start 11/01/16 at 14:45; Stop 11/01/16 at 14:46; Status DC Fentanyl Citrate (Fentanyl 2ml Vial) 50 mcg PRN Q15MIN PRN IV PAIN GREATER THAN 3/10 Last administered on 11/01/16 18:00; Start 11/01/16 at 14:45; Stop 11/02 at 09:29; Status DC Multi-Ingredient Mouthwash/Gargle (Gi Cocktail Single Dose) 15 ml 1X ONCE SWSW Last administered on 11/01/16 14:45; Start 11/01/16 at 14:45; Stop 11/01/16 at 14:46; Status DC Ceftriaxone Sodium 50 ml @ 100 mls/hr 1X ONCE IV Last administered on 15:45; Start 11/01/16 at 15:45; Stop 11/01/16 at 16:14; Status DC Hydromorphone HCl (Dilaudid) 1 mg 1X ONCE IV Last administered on 11/01/16 15: 45; Start 11/01/16 at 15:45; Stop 11/01/16 at 15:46; Status DC Ondansetron HCl (Zofran) 4 mg PRN Q8HRS PRN IV NAUSEA/VOMITING; Start 11/01/16 at 17:00; Stop 11/02/16 at 16:59 Sodium Chloride 1,000 ml @ 100 mls/hr Q10H IV Last administered on 11/02/16 06 :09; Start 11/01/16 at 17:15; Stop 11/02/16 at 17:14 Acetaminophen (Tylenol) 650 mg PRN Q4HRS PRN PO FEVER Last administered on 18:00; Start 11/01/16 at 17:00; Stop 11/02/16 at 16:59 Acetaminophen/ Codeine Phosphate (Tylenol #3) 1 tab PRN Q6HRS PRN PO PAIN; Start 11/01/16 at 17:00 Alprazolam (Xanax) 0.5 mg BID PRN PO ANXIETY / AGITATION; Start 11/01/16 at 17: 00 Escitalopram Oxalate (Lexapro) 10 mg DAILY PO Last administered on 11/02/16 08: 02; Start 11/02/16 at 09:00 Hydromorphone HCl (Dilaudid) 0.5 mg PRN Q4HRS PRN PO PAIN Last administered on 11/02/16 08:09; Start 11/01/16 at 17:00 Lisinopril (Prinivil) 10 mg DAILY PO Last administered on 11/02/16 08:03; Start 11/02/16 at 09:00 Metoclopramide HCl (Reglan) 10 mg QID PO Last administered on 11/02/16 08:02; Start 11/01/16 at 17:00 Pantoprazole Sodium (Protonix) 40 mg DAILYAC PO Last administered on 11/02/16 08:02; Start 11/02/16 at 07:30 Acetaminophen (Tylenol) 650 mg PRN Q6HRS PRN PO FEVER; Start 11/01/16 at 17:00 Ondansetron HCl (Zofran) 4 mg PRN Q6HRS PRN IV NAUSEA/VOMITING; Start 11/01/16 at 17:00 Ceftriaxone Sodium 1 gm/ Sodium Chloride 50 ml @ 100 mls/hr Q24H IV ; Start 11/02/16 at 16:00 Hydralazine HCl (Apresoline) 10 mg PRN Q4HRS PRN IVP ELEVATED BP, SEE COMMENTS ; Start 11/01/16 at 17:00 Tramadol HCl (Ultram) 100 mg PRN Q6HRS PRN PO PAIN; Start 11/01/16 at 17:15 Lorazepam (Ativan) 2 mg PRN Q4HRS PRN IV ANXIETY / AGITATION Last administered on 11/02/16 08:09; Start 11/01/16 at 17:15; Stop 11/02/16 at 09:29; Status DC Lorazepam (Ativan) 1 mg PRN Q4HRS PRN IV ANXIETY / AGITATION; Start 11/02/16 at 09:30 Hydromorphone HCl (Dilaudid) 0.4 mg PRN Q4HRS PRN IVP PAIN; Start 11/02/16 at 09 :30 Active Scripts Active Bactrim Ds Tablet (Sulfamethoxazole/Trimethoprim) 1 Each Tablet 1 Tab PO BID Tylenol With Codeine #3 Tablet (Acetaminophen/Codeine Phosphate) 1 Each Tablet 1 Tab PO PRN Q6HRS PRN Reglan (Metoclopramide Hcl) 10 Mg Tablet 10 Ml PO QID Dilaudid (Hydromorphone Hcl) 2 Mg Tablet 1 Mg PO PRN Q4HRS PRN Xanax (Alprazolam) 0.5 Mg Tablet 1 Tab PO BID PRN Nexium 24Hr (Esomeprazole Magnesium) 20 Mg Capsule.dr 20 Mg PO DAILY Escitalopram Oxalate 10 Mg Tablet 1 Tab PO DAILY Reported Lisinopril 10 Mg Tablet 1 Tab PO DAILY Allergies Allergies: Coded Allergies: levofloxacin (Verified Allergy, Intermediate, 08/16/16) TOLERATES CIPRO morphine (Verified Allergy, Intermediate, tolerates Dilaudid, 07/26/16) I S O L A T I O N *CONTACT* (Verified Allergy, Unknown, 07/26/16) mrsa diphenhydramine HCl (Verified Adverse Reaction, Intermediate, "Jittery on the inside", 07/26/16) ROS Review of System GEN: no Fevers occ Chills EYES: no Visual Complaints ENT: no EN Drainage no Hearing deficiets CVS: no Orthopnea no CP RESP: no SOB no ROBIN GI: + Nausea + Vomiting + Diarrhea : occ Dysuria no Urgency + self-caths at times HEME: no easy bruising no Palp Ly Nodes NEURO no Focal Weakness no Sz PSYCH: no Suicidal Ideation + Depression SKIN: no Rashes ENDO: no Polyuria or Polydipsia no Hot/Cold Intolerance MU SK: no Arthraigia no Myalgia Physical Exam Physical Exam General Appearance: Awake Alert Oriented x 3 In no Distress Eyes: VIsion Unchanged Conjunctiva Normal EN: No EN Drainage Mucous Memb. moist Neck: no JVD no JVP Supple no Thyromegaly CVS: S1 S2 ? Murmur No Gallop No Rub no Edema Resp: no Rales no Rhonchi no Acc. Muscle use GI: BAS +ve NO Bruit min Epigastric Tender Non Distended : no CVA tenderness; no Suprapubic Tenderness SKIN: no Rashes Breast Exam deferred Mu.Sk: Adequate ROM no Muscle Atrophy Heme: Unable to palpate Obvious LAD no Splenomegaly NEURO: Good Strength and Tone Cranial Nerves II - XII grossly intact Psych: min Depressed no Active hallucination; flattish affect Vital Signs Vital Signs Date Time Temp Pulse Resp B/P (MAP) Pulse Ox O2 Delivery O2 Flow Rate FiO2 11/02/16 09:09 17 Room Air 11/02/16 08:03 84 147/91 11/02/16 07:00 98.7 98 98.7 Assessment & Plan ARF: suspect due to recent bactrim use and VMN from NVD. Current FLuid and E- lyte status does not necessitate emergent need for Dialysis. CKD III Creat is 1.8-2.0 at baseline Vol Depeltion - IVF as needed Anemia: check Izard; HTN: Current BP meds reviewed. See orders for changes. Discussed Plan of Care and prognosis Labs Labs Laboratory Tests Test 11/01/16 14:05 11/01/16 14:23 11/02/16 03:15 Urine Collection Type Unknown Urine Color Yellow Urine Clarity Clear Urine pH 8.0 Urine Specific [place] 1.010 Urine Protein 100 mg/dL (NEG-TRACE) Urine Glucose (UA) Negative mg/dL (NEG) Urine Ketones (Stick) Negative mg/dL (NEG) Urine Blood Small (NEG) Urine Nitrite Negative (NEG) Urine Bilirubin Negative (NEG) Urine Urobilinogen Dipstick 0.2 mg/dL (0.2 mg/dL) Urine Leukocyte Esterase Moderate (NEG) Urine RBC 1-2 /HPF (0-2) Urine WBC 11-20 /HPF (0-4) Urine Squamous Epithelial Cells Mod /LPF Urine Transitional Epithelial Cells Few /LPF Urine Bacteria Few /HPF (0-FEW) White Blood Count 17.8 x10^3/uL (4.0-11.0) 8.5 x10^3/uL (4.0-11.0) Red Blood Count 4.38 x10^6/uL (3.50-5.40) 3.60 x10^6/uL (3.50-5.40) Hemoglobin 12.9 g/dL (12.0-15.5) 11.1 g/dL (12.0-15.5) Hematocrit 38.1 % (36.0-47.0) 32.2 % (36.0-47.0) Mean Corpuscular Volume 87 fL (79-100) 90 fL (79-100) Mean Corpuscular Hemoglobin 29 pg (25-35) 31 pg (25-35) Mean Corpuscular Hemoglobin Concent 34 g/dL (31-37) 34 g/dL (31-37) Red Cell Distribution Width 14.7 % (11.5-14.5) 14.8 % (11.5-14.5) Platelet Count 429 x10^3/uL (140-400) 293 x10^3/uL (140-400) Neutrophils (%) (Auto) 72 % (31-73) 54 % (31-73) Lymphocytes (%) (Auto) 19 % (24-48) 29 % (24-48) Monocytes (%) (Auto) 8 % (0-9) 13 % (0-9) Eosinophils (%) (Auto) 0 % (0-3) 4 % (0-3) Basophils (%) (Auto) 1 % (0-3) 1 % (0-3) Neutrophils # (Auto) 12.8 x10^3uL (1.8-7.7) 4.5 x10^3uL (1.8-7.7) Lymphocytes # (Auto) 3.4 x10^3/uL (1.0-4.8) 2.4 x10^3/uL (1.0-4.8) Monocytes # (Auto) 1.4 x10^3/uL (0.0-1.1) 1.1 x10^3/uL (0.0-1.1) Eosinophils # (Auto) 0.1 x10^3/uL (0.0-0.7) 0.3 x10^3/uL (0.0-0.7) Basophils # (Auto) 0.1 x10^3/uL (0.0-0.2) 0.1 x10^3/uL (0.0-0.2) Sodium Level 138 mmol/L (136-145) 139 mmol/L (136-145) Potassium Level 4.4 mmol/L (3.5-5.1) 3.5 mmol/L (3.5-5.1) Chloride Level 94 mmol/L (98-107) 101 mmol/L (98-107) Carbon Dioxide Level 32 mmol/L (21-32) 33 mmol/L (21-32) Anion Gap 12 (6-14) 5 (6-14) Blood Urea Nitrogen 39 mg/dL (7-20) 38 mg/dL (7-20) Creatinine 2.4 mg/dL (0.6-1.0) 2.4 mg/dL (0.6-1.0) Estimated GFR (Cockcroft-Gault) 20.6 20.6 Glucose Level 100 mg/dL (70-99) 94 mg/dL (70-99) Calcium Level 10.5 mg/dL (8.5-10.1) 8.6 mg/dL (8.5-10.1) Total Bilirubin 0.3 mg/dL (0.2-1.0) Direct Bilirubin 0.1 mg/dL (0.0-0.2) Aspartate Amino Transf (AST/SGOT) 27 U/L (15-37) Alanine Aminotransferase (ALT/SGPT) 18 U/L (14-59) Alkaline Phosphatase 82 U/L (46-116) Troponin I Quantitative < 0.017 ng/mL (0.000-0.055) DK-Wgg-I-Type Natriuretic Peptide 1412 pg/mL (0-124) Total Protein 8.4 g/dL (6.4-8.2) Albumin 3.5 g/dL (3.4-5.0) Lipase 283 U/L (73-393) Laboratory Tests Test 11/01/16 14:05 11/01/16 14:23 11/02/16 03:15 Urine Collection Type Unknown Urine Color Yellow Urine Clarity Clear Urine pH 8.0 Urine Specific [place] 1.010 Urine Protein 100 mg/dL (NEG-TRACE) Urine Glucose (UA) Negative mg/dL (NEG) Urine Ketones (Stick) Negative mg/dL (NEG) Urine Blood Small (NEG) Urine Nitrite Negative (NEG) Urine Bilirubin Negative (NEG) Urine Urobilinogen Dipstick 0.2 mg/dL (0.2 mg/dL) Urine Leukocyte Esterase Moderate (NEG) Urine RBC 1-2 /HPF (0-2) Urine WBC 11-20 /HPF (0-4) Urine Squamous Epithelial Cells Mod /LPF Urine Transitional Epithelial Cells Few /LPF Urine Bacteria Few /HPF (0-FEW) White Blood Count 17.8 x10^3/uL (4.0-11.0) 8.5 x10^3/uL (4.0-11.0) Red Blood Count 4.38 x10^6/uL (3.50-5.40) 3.60 x10^6/uL (3.50-5.40) Hemoglobin 12.9 g/dL (12.0-15.5) 11.1 g/dL (12.0-15.5) Hematocrit 38.1 % (36.0-47.0) 32.2 % (36.0-47.0) Mean Corpuscular Volume 87 fL (79-100) 90 fL (79-100) Mean Corpuscular Hemoglobin 29 pg (25-35) 31 pg (25-35) Mean Corpuscular Hemoglobin Concent 34 g/dL (31-37) 34 g/dL (31-37) Red Cell Distribution Width 14.7 % (11.5-14.5) 14.8 % (11.5-14.5) Platelet Count 429 x10^3/uL (140-400) 293 x10^3/uL (140-400) Neutrophils (%) (Auto) 72 % (31-73) 54 % (31-73) Lymphocytes (%) (Auto) 19 % (24-48) 29 % (24-48) Monocytes (%) (Auto) 8 % (0-9) 13 % (0-9) Eosinophils (%) (Auto) 0 % (0-3) 4 % (0-3) Basophils (%) (Auto) 1 % (0-3) 1 % (0-3) Neutrophils # (Auto) 12.8 x10^3uL (1.8-7.7) 4.5 x10^3uL (1.8-7.7) Lymphocytes # (Auto) 3.4 x10^3/uL (1.0-4.8) 2.4 x10^3/uL (1.0-4.8) Monocytes # (Auto) 1.4 x10^3/uL (0.0-1.1) 1.1 x10^3/uL (0.0-1.1) Eosinophils # (Auto) 0.1 x10^3/uL (0.0-0.7) 0.3 x10^3/uL (0.0-0.7) Basophils # (Auto) 0.1 x10^3/uL (0.0-0.2) 0.1 x10^3/uL (0.0-0.2) Sodium Level 138 mmol/L (136-145) 139 mmol/L (136-145) Potassium Level 4.4 mmol/L (3.5-5.1) 3.5 mmol/L (3.5-5.1) Chloride Level 94 mmol/L (98-107) 101 mmol/L (98-107) Carbon Dioxide Level 32 mmol/L (21-32) 33 mmol/L (21-32) Anion Gap 12 (6-14) 5 (6-14) Blood Urea Nitrogen 39 mg/dL (7-20) 38 mg/dL (7-20) Creatinine 2.4 mg/dL (0.6-1.0) 2.4 mg/dL (0.6-1.0) Estimated GFR (Cockcroft-Gault) 20.6 20.6 Glucose Level 100 mg/dL (70-99) 94 mg/dL (70-99) Calcium Level 10.5 mg/dL (8.5-10.1) 8.6 mg/dL (8.5-10.1) Total Bilirubin 0.3 mg/dL (0.2-1.0) Direct Bilirubin 0.1 mg/dL (0.0-0.2) Aspartate Amino Transf (AST/SGOT) 27 U/L (15-37) Alanine Aminotransferase (ALT/SGPT) 18 U/L (14-59) Alkaline Phosphatase 82 U/L (46-116) Troponin I Quantitative < 0.017 ng/mL (0.000-0.055) IL-Unf-T-Type Natriuretic Peptide 1412 pg/mL (0-124) Total Protein 8.4 g/dL (6.4-8.2) Albumin 3.5 g/dL (3.4-5.0) Lipase 283 U/L (73-393) CHLOE ONEILL MD November 02, 2016 11:06
--- NOTE | 2016-11-03 01:32 | CONS ---
DATE OF CONSULTATION: PRIMARY PHYSICIAN: Dr. Hill. REASON FOR CONSULTATION: [id number] renal insufficiency. HISTORY OF PRESENT ILLNESS: The patient is a pleasant 61-year-old female who was known to have urinary retention related issues. She also developed severe nausea, vomiting, and diarrhea. She was also taking Bactrim recently. Through all this, she is noted to have an elevated creatinine at 2.4 with baselines running usually in the 1.8-2.0 range. She was admitted to the hospital for further evaluation. She initially presented with abdominal pain/chest pain, abdominal pain was felt to be in her epigastric area. She does usually self cath herself and was recently noted to have a UTI and was treated with Bactrim by her primary care physician. PAST MEDICAL HISTORY: Extensive. 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 FAMILY HISTORY: Positive for stroke, hypertension, GERD, depression, cardiovascular disease and angina. For rest of the details, see electronic records. CHLOE ONEILL MD DR: SHAWNEE/hal JOB#: [id number] / [id number]
[2016-11-03] MEDS: HYDROmorphone 2 MG TABLET PO PRN ×5 (02:22→20:25)
[2016-11-03 03:00] VITALS: BP 121/93
[2016-11-03 07:49] VITALS: BP 146/88
[2016-11-03] MEDS: PANTOPRAZOLE 40 MG TABLET.DR. PO SCH (08:17)
[2016-11-03] MEDS: ESCITALOPRAM 10 MG TABLET. PO SCH (08:18)
[2016-11-03] MEDS: LISINOPRIL 10 MG TABLET PO SCH (08:18)
[2016-11-03] MEDS: METOCLOPRAMIDE 10 MG TABLET. PO SCH ×4 (08:18→20:20)
--- NOTE | 2016-11-03 10:52 | PDOC ---
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 CKD 3 ETOH dependence GAstroparesis HTN, uncontrolled chronic Nausea/Vomiting with gastroparesis possibly Neurogenic bladder self caths intermittently chronic Diarrhea with h/o cdiff colitis SIRS with uti, no sepsis History of Present Illness History of Present Illness urine cx not yet out NO fevers no white ct Does not klnow she has IV dilaudid on board Needed to insert FC yesterday 900cc residula She admits to me she does not self ctah at home as often Did disucss with her suprapubic cath- she tells me she'll try harder at home to self cath Some GERD sxs, difficulty swallowing but ate breakfast tray 100% LAst EGD few mos ago - "ulcers" PLAn: Trial of viscous lidocaine and SW And SW Hold off GI consult - known to them and just ahd EGD few mos ago Add carafate Already on PPI dc IV dilaudid wait on urine cx Dw RN and Renal Vitals Vitals Vital Signs Date Time Temp Pulse Resp B/P (MAP) Pulse Ox O2 Delivery O2 Flow Rate FiO2 11/03/16 08:19 Room Air 11/03/16 08:18 71 121/93 11/03/16 07:49 98.0 18 94 98.0 Physical Exam General: Cooperative Heart: Regular rate, Normal S1, Normal S2 Lungs: Clear Abdomen: Normal bowel sounds, Soft Extremities: No clubbing, No cyanosis Skin: No rashes, No breakdown Review of Systems Review of Systems difficulty swallowing, no diarrhea, abd pain, cp Assessment and Plan Assessmemt and Plan Problems Medical Problems: (1) Acute renal failure Status: Acute (2) Gastroparesis Status: Acute (3) Leukocytosis Status: Acute (4) Pyelonephritis Status: Acute (5) Vomiting and diarrhea Status: Acute Problems: Comment Review of Relevant I have reviewed the following items blade (where applicable) has been applied. Labs Laboratory Tests Test 11/01/16 14:05 11/01/16 14:23 11/02/16 03:15 Urine Collection Type Unknown Urine Color Yellow Urine Clarity Clear Urine pH 8.0 Urine Specific [place] 1.010 Urine Protein 100 mg/dL (NEG-TRACE) Urine Glucose (UA) Negative mg/dL (NEG) Urine Ketones (Stick) Negative mg/dL (NEG) Urine Blood Small (NEG) Urine Nitrite Negative (NEG) Urine Bilirubin Negative (NEG) Urine Urobilinogen Dipstick 0.2 mg/dL (0.2 mg/dL) Urine Leukocyte Esterase Moderate (NEG) Urine RBC 1-2 /HPF (0-2) Urine WBC 11-20 /HPF (0-4) Urine Squamous Epithelial Cells Mod /LPF Urine Transitional Epithelial Cells Few /LPF Urine Bacteria Few /HPF (0-FEW) White Blood Count 17.8 x10^3/uL (4.0-11.0) 8.5 x10^3/uL (4.0-11.0) Red Blood Count 4.38 x10^6/uL (3.50-5.40) 3.60 x10^6/uL (3.50-5.40) Hemoglobin 12.9 g/dL (12.0-15.5) 11.1 g/dL (12.0-15.5) Hematocrit 38.1 % (36.0-47.0) 32.2 % (36.0-47.0) Mean Corpuscular Volume 87 fL (79-100) 90 fL (79-100) Mean Corpuscular Hemoglobin 29 pg (25-35) 31 pg (25-35) Mean Corpuscular Hemoglobin Concent 34 g/dL (31-37) 34 g/dL (31-37) Red Cell Distribution Width 14.7 % (11.5-14.5) 14.8 % (11.5-14.5) Platelet Count 429 x10^3/uL (140-400) 293 x10^3/uL (140-400) Neutrophils (%) (Auto) 72 % (31-73) 54 % (31-73) Lymphocytes (%) (Auto) 19 % (24-48) 29 % (24-48) Monocytes (%) (Auto) 8 % (0-9) 13 % (0-9) Eosinophils (%) (Auto) 0 % (0-3) 4 % (0-3) Basophils (%) (Auto) 1 % (0-3) 1 % (0-3) Neutrophils # (Auto) 12.8 x10^3uL (1.8-7.7) 4.5 x10^3uL (1.8-7.7) Lymphocytes # (Auto) 3.4 x10^3/uL (1.0-4.8) 2.4 x10^3/uL (1.0-4.8) Monocytes # (Auto) 1.4 x10^3/uL (0.0-1.1) 1.1 x10^3/uL (0.0-1.1) Eosinophils # (Auto) 0.1 x10^3/uL (0.0-0.7) 0.3 x10^3/uL (0.0-0.7) Basophils # (Auto) 0.1 x10^3/uL (0.0-0.2) 0.1 x10^3/uL (0.0-0.2) Sodium Level 138 mmol/L (136-145) 139 mmol/L (136-145) Potassium Level 4.4 mmol/L (3.5-5.1) 3.5 mmol/L (3.5-5.1) Chloride Level 94 mmol/L (98-107) 101 mmol/L (98-107) Carbon Dioxide Level 32 mmol/L (21-32) 33 mmol/L (21-32) Anion Gap 12 (6-14) 5 (6-14) Blood Urea Nitrogen 39 mg/dL (7-20) 38 mg/dL (7-20) Creatinine 2.4 mg/dL (0.6-1.0) 2.4 mg/dL (0.6-1.0) Estimated GFR (Cockcroft-Gault) 20.6 20.6 Glucose Level 100 mg/dL (70-99) 94 mg/dL (70-99) Calcium Level 10.5 mg/dL (8.5-10.1) 8.6 mg/dL (8.5-10.1) Total Bilirubin 0.3 mg/dL (0.2-1.0) Direct Bilirubin 0.1 mg/dL (0.0-0.2) Aspartate Amino Transf (AST/SGOT) 27 U/L (15-37) Alanine Aminotransferase (ALT/SGPT) 18 U/L (14-59) Alkaline Phosphatase 82 U/L (46-116) Troponin I Quantitative < 0.017 ng/mL (0.000-0.055) VW-Fmy-H-Type Natriuretic Peptide 1412 pg/mL (0-124) Total Protein 8.4 g/dL (6.4-8.2) Albumin 3.5 g/dL (3.4-5.0) Lipase 283 U/L (73-393) Medications Current Medications Aspirin (Belen Aspirin) 325 mg 1X ONCE PO Last administered on 11/01/16 14:45 ; Start 11/01/16 at 14:45; Stop 11/01/16 at 14:46; Status DC Sodium Chloride 1,000 ml @ 1,000 mls/hr 1X ONCE IV Last administered on 14:45; Start 11/01/16 at 14:45; Stop 11/01/16 at 15:44; Status DC Ondansetron HCl (Zofran) 4 mg 1X ONCE IV Last administered on 11/01/16 14:45; Start 11/01/16 at 14:45; Stop 11/01/16 at 14:46; Status DC Lorazepam (Ativan) 1 mg 1X ONCE IV Last administered on 11/01/16 14:45; Start 11/01/16 at 14:45; Stop 11/01/16 at 14:46; Status DC Fentanyl Citrate (Fentanyl 2ml Vial) 50 mcg PRN Q15MIN PRN IV PAIN GREATER THAN 3/10 Last administered on 11/01/16 18:00; Start 11/01/16 at 14:45; Stop 11/02 at 09:29; Status DC Multi-Ingredient Mouthwash/Gargle (Gi Cocktail Single Dose) 15 ml 1X ONCE SWSW Last administered on 11/01/16 14:45; Start 11/01/16 at 14:45; Stop 11/01/16 at 14:46; Status DC Ceftriaxone Sodium 50 ml @ 100 mls/hr 1X ONCE IV Last administered on 15:45; Start 11/01/16 at 15:45; Stop 11/01/16 at 16:14; Status DC Hydromorphone HCl (Dilaudid) 1 mg 1X ONCE IV Last administered on 11/01/16 15: 45; Start 11/01/16 at 15:45; Stop 11/01/16 at 15:46; Status DC Ondansetron HCl (Zofran) 4 mg PRN Q8HRS PRN IV NAUSEA/VOMITING; Start 11/01/16 at 17:00; Stop 11/02/16 at 16:59; Status DC Sodium Chloride 1,000 ml @ 100 mls/hr Q10H IV Last administered on 11/02/16 15 :42; Start 11/01/16 at 17:15; Stop 11/02/16 at 17:14; Status DC Acetaminophen (Tylenol) 650 mg PRN Q4HRS PRN PO FEVER Last administered on 18:00; Start 11/01/16 at 17:00; Stop 11/02/16 at 16:59; Status DC Acetaminophen/ Codeine Phosphate (Tylenol #3) 1 tab PRN Q6HRS PRN PO PAIN; Start 11/01/16 at 17:00 Alprazolam (Xanax) 0.5 mg BID PRN PO ANXIETY / AGITATION; Start 11/01/16 at 17: 00 Escitalopram Oxalate (Lexapro) 10 mg DAILY PO Last administered on 11/03/16 08: 18; Start 11/02/16 at 09:00 Hydromorphone HCl (Dilaudid) 0.5 mg PRN Q4HRS PRN PO PAIN Last administered on 11/03/16 08:19; Start 11/01/16 at 17:00 Lisinopril (Prinivil) 10 mg DAILY PO Last administered on 11/03/16 08:18; Start 11/02/16 at 09:00 Metoclopramide HCl (Reglan) 10 mg QID PO Last administered on 11/03/16 08:18; Start 11/01/16 at 17:00 Pantoprazole Sodium (Protonix) 40 mg DAILYAC PO Last administered on 11/03/16 08:17; Start 11/02/16 at 07:30 Acetaminophen (Tylenol) 650 mg PRN Q6HRS PRN PO FEVER; Start 11/01/16 at 17:00 Ondansetron HCl (Zofran) 4 mg PRN Q6HRS PRN IV NAUSEA/VOMITING; Start 11/01/16 at 17:00 Ceftriaxone Sodium 1 gm/ Sodium Chloride 50 ml @ 100 mls/hr Q24H IV Last administered on 11/02/16 15:45; Start 11/02/16 at 16:00 Hydralazine HCl (Apresoline) 10 mg PRN Q4HRS PRN IVP ELEVATED BP, SEE COMMENTS ; Start 11/01/16 at 17:00 Tramadol HCl (Ultram) 100 mg PRN Q6HRS PRN PO PAIN; Start 11/01/16 at 17:15 Lorazepam (Ativan) 2 mg PRN Q4HRS PRN IV ANXIETY / AGITATION Last administered on 11/02/16 08:09; Start 11/01/16 at 17:15; Stop 11/02/16 at 09:29; Status DC Lorazepam (Ativan) 1 mg PRN Q4HRS PRN IV ANXIETY / AGITATION Last administered on 11/03/16 08:29; Start 11/02/16 at 09:30 Hydromorphone HCl (Dilaudid) 0.4 mg PRN Q4HRS PRN IVP PAIN; Start 11/02/16 at 09 :30 Active Scripts Active Bactrim Ds Tablet (Sulfamethoxazole/Trimethoprim) 1 Each Tablet 1 Tab PO BID Tylenol With Codeine #3 Tablet (Acetaminophen/Codeine Phosphate) 1 Each Tablet 1 Tab PO PRN Q6HRS PRN Reglan (Metoclopramide Hcl) 10 Mg Tablet 10 Ml PO QID Dilaudid (Hydromorphone Hcl) 2 Mg Tablet 1 Mg PO PRN Q4HRS PRN Xanax (Alprazolam) 0.5 Mg Tablet 1 Tab PO BID PRN Nexium 24Hr (Esomeprazole Magnesium) 20 Mg Capsule.dr 20 Mg PO DAILY Escitalopram Oxalate 10 Mg Tablet 1 Tab PO DAILY Reported Lisinopril 10 Mg Tablet 1 Tab PO DAILY Vitals/I & O Vital Sign - Last 24 Hours 11/02/16 11/02/16 11/02/16 11/02/16 11:00 15:00 15:41 16:41 Temp 98.7 98.5 98.7 98.5 Pulse 93 92 Resp 18 18 18 16 B/P (MAP) 100/63 (75) 103/60 (74) Pulse Ox 93 95 93 93 O2 Delivery Room Air Room Air Room Air Room Air 11/02/16 11/02/16 11/02/16 11/03/16 19:42 20:20 23:00 03:00 Temp 98.3 98.8 98.4 98.3 98.8 98.4 Pulse 98 77 71 Resp 18 18 18 B/P (MAP) 176/99 (124) 137/84 (101) 121/93 (102) Pulse Ox 95 95 95 O2 Delivery Room Air Room Air Room Air Room Air 11/03/16 11/03/16 11/03/16 07:49 08:18 08:19 Temp 98.0 98.0 Pulse 73 71 Resp 18 B/P (MAP) 146/88 (107) 121/93 Pulse Ox 94 O2 Delivery Room Air Room Air Intake and Output 11/02/16 11/02/16 11/03/16 15:00 23:00 07:00 Intake Total 400 ml 240 ml Output Total 1650 ml Balance -1250 ml 240 ml LIDIA URIAS MD November 03, 2016 10:52
[2016-11-03] MEDS ORDERED: LIDOCAINE 2% VISCOUS 15 ML SOLUTION. SWSW PRN (11:00)
[2016-11-03] MEDS ORDERED: LIDOCAINE 2% JELLY 6ML IN APPLICATOR. MM ONE (11:00)
--- NOTE | 2016-11-03 11:08 | PDOC ---
SUBJECTIVE ROS GILES/ CKD III c/o odynophagia CVS: no Orthopnea, no CP RESP: no SOB, no ROBIN GI: no Nausea, no Vomiting : no Dysuria, no Urgency - now has kerns OBJECTIVE Vital Signs Vital Signs Date Time Temp Pulse Resp B/P (MAP) Pulse Ox O2 Delivery O2 Flow Rate FiO2 11/03/16 09:45 Room Air 11/03/16 08:18 71 121/93 11/03/16 07:49 98.0 18 94 98.0 I & 0 Intake and Output 11/03/16 07:00 Intake Total 640 ml Output Total 1650 ml Balance -1010 ml Intake Oral 640 ml Output Urine Total 1650 ml PHYSICAL EXAM Physical Exam General Appearance: Awake Alert Oriented x 3 In no Distress Eyes: VIsion Unchanged Conjunctiva Normal EN: No EN Drainage Mucous Memb. moist Neck: no JVD no JVP Supple no Thyromegaly CVS: S1 S2 ? Murmur No Gallop No Rub no Edema Resp: no Rales no Rhonchi no Acc. Muscle use GI: BAS +ve NO Bruit min Epigastric Tender Non Distended : no CVA tenderness; no Suprapubic Tenderness Assessment & Plan ARF: suspect due to recent bactrim use and VMN from NVD. Urinar retention may be contributing too. Check US to r/o Hydronephrosis; Current FLuid and E-lyte status does not necessitate emergent need for Dialysis. Previous UA looked benign. CKD III Creat is 1.8-2.0 at baseline Vol Depeltion - IVF as ordered Anemia: check Iron; HTN: Current BP meds reviewed. See orders for changes. Urinary Retention - highly suspicious that pt does not self-cath regularly at Home COMMENT/RELEVANT DATA Meds Current Medications Medications (Trade) Dose Ordered Sig/Taz Start Time Stop Time Status Last Admin Dose Admin Acetaminophen (Tylenol) 650 mg PRN Q6HRS PRN 11/01/16 17:00 Acetaminophen/ Codeine Phosphate (Tylenol #3) 1 tab PRN Q6HRS PRN 11/01/16 17:00 Alprazolam (Xanax) 0.5 mg BID PRN 11/01/16 17:00 Aspirin (Belen Aspirin) 325 mg 1X ONCE 11/01/16 14:45 11/01/16 14:46 DC 11/01/16 14:45 325 MG Ceftriaxone Sodium 1 gm/ Sodium Chloride 50 ml @ 100 mls/hr Q24H 11/02/16 16:00 11/02/16 15:45 100 MLS/HR Ceftriaxone Sodium 50 ml @ 100 mls/hr 1X ONCE 11/01/16 15:45 11/01/16 16:14 DC 11/01/16 15:45 100 MLS/HR Escitalopram Oxalate (Lexapro) 10 mg DAILY 11/02/16 09:00 11/03/16 08:18 10 MG Fentanyl Citrate (Fentanyl 2ml Vial) 50 mcg PRN Q15MIN PRN 11/01/16 14:45 11/02/16 09:29 DC 11/01/16 18:00 50 MCG Hydralazine HCl (Apresoline) 10 mg PRN Q4HRS PRN 11/01/16 17:00 Hydromorphone HCl (Dilaudid) 0.4 mg PRN Q4HRS PRN 11/02/16 09:30 11/03/16 10:50 DC Lidocaine HCl (Glydo (Lidocaine) Jelly) 1 veronica 1X ONCE 11/03/16 11:00 11/03/16 11:01 DC Lidocaine HCl (Viscous Lidocaine) 15 ml PRN Q4HRS PRN 11/03/16 11:00 Lisinopril (Prinivil) 10 mg DAILY 11/02/16 09:00 11/03/16 08:18 10 MG Lorazepam (Ativan) 1 mg PRN Q4HRS PRN 11/02/16 09:30 11/03/16 08:29 1 MG Metoclopramide HCl (Reglan) 10 mg QID 11/01/16 17:00 11/03/16 08:18 10 MG Multi-Ingredient Mouthwash/Gargle (Gi Cocktail Single Dose) 15 ml 1X ONCE 11/01/16 14:45 11/01/16 14:46 DC 11/01/16 14:45 15 ML Ondansetron HCl (Zofran) 4 mg PRN Q6HRS PRN 11/01/16 17:00 Pantoprazole Sodium (Protonix) 40 mg DAILYAC 11/02/16 07:30 11/03/16 08:17 40 MG Sodium Chloride 1,000 ml @ 100 mls/hr Q10H 11/01/16 17:15 11/02/16 17:14 DC 11/02/16 15:42 100 MLS/HR Sucralfate (Carafate) 1 gm QIDACHS 11/03/16 11:30 Tramadol HCl (Ultram) 100 mg PRN Q6HRS PRN 11/01/16 17:15 CHLOE ONEILL MD November 03, 2016 11:08
[2016-11-03] MEDS ORDERED: POTASSIUM CHLORIDE IV SCH (11:15)
[2016-11-03] MEDS ORDERED: SODIUM CHLORIDE IV SCH (11:15)
[2016-11-03 11:17] VITALS: BP 130/67
[2016-11-03 12:08] LABS: % SAT IRON 11 % (15-34); IRON,SERUM 39 ug/dL (50-170)
[2016-11-03] MEDS: SUCRALFATE 1 GM TABLET. PO SCH ×3 (12:10→20:20)
[2016-11-03] MEDS: POTASSIUM CL 20MEQ-0.45% NACL 1,000 ML IV SCH (12:11)
--- NOTE | 2016-11-03 15:29 | RAD ---
Indication abnormal renal function tests. The right kidney measures 8.2 x 3.5 x 3.7 cm. The kidney is echogenic compatible with medical renal disease. A dominant mass or hydronephrosis is not seen. There is a Drummond catheter in the urinary bladder. The bladder, as a result, is collapsed and poorly evaluated with ultrasound. The left kidney measures 8.8 x 3.9 x 4 cm. It is slightly echogenic but not nearly to the degree as the right kidney. No hydronephrosis or mass is seen. IMPRESSION: Findings suggesting medical renal disease right to a significantly greater than left
[2016-11-03 15:42] VITALS: BP 135/86
[2016-11-03 19:00] VITALS: BP 139/82
[2016-11-03 22:55] VITALS: BP 142/93
[2016-11-04] MEDS: POTASSIUM CL 20MEQ-0.45% NACL 1,000 ML IV SCH ×2 (01:40→14:24)
[2016-11-04 02:53] VITALS: BP 159/97
[2016-11-04 07:33] VITALS: BP 169/98
[2016-11-04] MEDS: METOCLOPRAMIDE 10 MG TABLET. PO SCH ×4 (08:23→20:56)
[2016-11-04] MEDS: ESCITALOPRAM 10 MG TABLET. PO SCH (08:23)
[2016-11-04] MEDS: PANTOPRAZOLE 40 MG TABLET.DR. PO SCH (08:23)
[2016-11-04] MEDS: SUCRALFATE 1 GM TABLET. PO SCH ×4 (08:23→20:56)
[2016-11-04] MEDS: LISINOPRIL 10 MG TABLET PO SCH (08:24)
[2016-11-04] MEDS: HYDROmorphone 2 MG TABLET PO PRN ×4 (08:25→22:38)
[2016-11-04 11:15] VITALS: BP 147/105
--- NOTE | 2016-11-04 13:49 | PDOC ---
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 CKD 3 ETOH dependence GAstroparesis HTN, uncontrolled chronic Nausea/Vomiting with gastroparesis possibly Neurogenic bladder self caths intermittently chronic Diarrhea with h/o cdiff colitis SIRS with uti, no sepsis History of Present Illness History of Present Illness urine cx not yet out NO fevers no white ct No IV dilaudid on board - and she is cool with that Needed to insert FC Saturday- 900cc residual She admits to me she does not self caths at home as often LAst EGD few mos ago - "ulcers" PLAn: Trial of viscous lidocaine and SW And SW Hold off GI consult - known to them and just had EGD few mos ago - no need this admission Add carafate Already on PPI dc IV dilaudid wait on urine cx ONCE URINE CX OUT AND SENSITIVITIES, DC HOME Dw RN Vitals Vitals Vital Signs Date Time Temp Pulse Resp B/P (MAP) Pulse Ox O2 Delivery O2 Flow Rate FiO2 11/04/16 12:35 Room Air 11/04/16 11:15 98.4 87 18 147/105 (119) 98 98.4 Physical Exam General: Cooperative Heart: Regular rate, Normal S1, Normal S2 Lungs: Clear Abdomen: Normal bowel sounds, Soft Extremities: No clubbing, No cyanosis Skin: No rashes, No breakdown Review of Systems Review of Systems abd pain, pain all over, no n/v/d Assessment and Plan Assessmemt and Plan Problems Medical Problems: (1) Acute renal failure Status: Acute (2) Gastroparesis Status: Acute (3) Leukocytosis Status: Acute (4) Pyelonephritis Status: Acute (5) Vomiting and diarrhea Status: Acute Problems: Comment Review of Relevant I have reviewed the following items blade (where applicable) has been applied. Labs Laboratory Tests Test 11/03/16 11:25 Reticulocyte Count (auto) 1.2 % (0.5-2.5) Iron Level 39 ug/dL (50-170) Total Iron Binding Capacity 340 ug/dL (250-450) Iron Saturation 11 % (15-34) Ferritin 110 ng/mL (8-252) Medications Current Medications Aspirin (Belen Aspirin) 325 mg 1X ONCE PO Last administered on 11/01/16t 14:45 ; Start 11/01/16 at 14:45; Stop 11/01/16 at 14:46; Status DC Sodium Chloride 1,000 ml @ 1,000 mls/hr 1X ONCE IV Last administered on 14:45; Start 11/01/16 at 14:45; Stop 11/01/16 at 15:44; Status DC Ondansetron HCl (Zofran) 4 mg 1X ONCE IV Last administered on 11/01/16 14:45; Start 11/01/16 at 14:45; Stop 11/01/16 at 14:46; Status DC Lorazepam (Ativan) 1 mg 1X ONCE IV Last administered on 11/01/16 14:45; Start 11/01/16 at 14:45; Stop 11/01/16 at 14:46; Status DC Fentanyl Citrate (Fentanyl 2ml Vial) 50 mcg PRN Q15MIN PRN IV PAIN GREATER THAN 3/10 Last administered on 11/01/16 18:00; Start 11/01/16 at 14:45; Stop 11/02 at 09:29; Status DC Multi-Ingredient Mouthwash/Gargle (Gi Cocktail Single Dose) 15 ml 1X ONCE SWSW Last administered on 11/01/16 14:45; Start 11/01/16 at 14:45; Stop 11/01/16 at 14:46; Status DC Ceftriaxone Sodium 50 ml @ 100 mls/hr 1X ONCE IV Last administered on 15:45; Start 11/01/16 at 15:45; Stop 11/01/16 at 16:14; Status DC Hydromorphone HCl (Dilaudid) 1 mg 1X ONCE IV Last administered on 11/01/16 15: 45; Start 11/01/16 at 15:45; Stop 11/01/16 at 15:46; Status DC Ondansetron HCl (Zofran) 4 mg PRN Q8HRS PRN IV NAUSEA/VOMITING; Start 11/01/16 at 17:00; Stop 11/02/16 at 16:59; Status DC Sodium Chloride 1,000 ml @ 100 mls/hr Q10H IV Last administered on 11/02/16 15 :42; Start 11/01/16 at 17:15; Stop 11/02/16 at 17:14; Status DC Acetaminophen (Tylenol) 650 mg PRN Q4HRS PRN PO FEVER Last administered on 18:00; Start 11/01/16 at 17:00; Stop 11/02/16 at 16:59; Status DC Acetaminophen/ Codeine Phosphate (Tylenol #3) 1 tab PRN Q6HRS PRN PO MILD PAIN ; Start 11/01/16 at 17:00 Alprazolam (Xanax) 0.5 mg BID PRN PO ANXIETY / AGITATION; Start 11/01/16 at 17: 00 Escitalopram Oxalate (Lexapro) 10 mg DAILY PO Last administered on 11/04/16 08: 23; Start 11/02/16 at 09:00 Hydromorphone HCl (Dilaudid) 0.5 mg PRN Q4HRS PRN PO SEVERE PAIN Last administered on 11/04/16 12:35; Start 11/01/16 at 17:00 Lisinopril (Prinivil) 10 mg DAILY PO Last administered on 11/04/16 08:24; Start 11/02/16 at 09:00 Metoclopramide HCl (Reglan) 10 mg QID PO Last administered on 11/03/16 12:10; Start 11/01/16 at 17:00; Stop 11/03/16 at 15:23; Status DC Pantoprazole Sodium (Protonix) 40 mg DAILYAC PO Last administered on 11/04/16 08:23; Start 11/02/16 at 07:30 Acetaminophen (Tylenol) 650 mg PRN Q6HRS PRN PO FEVER; Start 11/01/16 at 17:00 Ondansetron HCl (Zofran) 4 mg PRN Q6HRS PRN IV NAUSEA/VOMITING; Start 11/01/16 at 17:00 Ceftriaxone Sodium 1 gm/ Sodium Chloride 50 ml @ 100 mls/hr Q24H IV Last administered on 11/03/16 16:22; Start 11/02/16 at 16:00 Hydralazine HCl (Apresoline) 10 mg PRN Q4HRS PRN IVP ELEVATED BP, SEE COMMENTS ; Start 11/01/16 at 17:00 Tramadol HCl (Ultram) 100 mg PRN Q6HRS PRN PO MODERATE PAIN; Start 11/01/16 at 17:15 Lorazepam (Ativan) 2 mg PRN Q4HRS PRN IV ANXIETY / AGITATION Last administered on 11/02/16 08:09; Start 11/01/16 at 17:15; Stop 11/02/16 at 09:29; Status DC Lorazepam (Ativan) 1 mg PRN Q4HRS PRN IV ANXIETY / AGITATION Last administered on 11/04/16 08:26; Start 11/02/16 at 09:30 Hydromorphone HCl (Dilaudid) 0.4 mg PRN Q4HRS PRN IVP PAIN; Start 11/02/16 at 09 :30; Stop 11/03/16 at 10:50; Status DC Lidocaine HCl (Glydo (Lidocaine) Jelly) 1 veronica 1X ONCE MM ; Start 11/03/16 at 11: 00; Stop 11/03/16 at 11:01; Status DC Lidocaine HCl (Viscous Lidocaine) 15 ml PRN Q4HRS PRN SWSW MOUTH PAIN; Start at 11:00 Sucralfate (Carafate) 1 gm QIDACHS PO Last administered on 11/04/16 12:34; Start 11/03/16 at 11:30 Potassium Chloride 20 meq/ Potassium Chloride/Sodium Chloride 1,010 ml @ 75 mls /hr [id number] IV ; Start 11/03/16 at 11:15; Status Cancel Potassium Chloride/Sodium Chloride 1,000 ml @ 75 mls/hr [id number] IV Last administered on 11/04/16 01:40; Start 11/03/16 at 11:15 Metoclopramide HCl (Reglan) 5 mg QID PO Last administered on 11/04/16 12:34; Start 11/03/16 at 17:00 Active Scripts Active Bactrim Ds Tablet (Sulfamethoxazole/Trimethoprim) 1 Each Tablet 1 Tab PO BID Tylenol With Codeine #3 Tablet (Acetaminophen/Codeine Phosphate) 1 Each Tablet 1 Tab PO PRN Q6HRS PRN Reglan (Metoclopramide Hcl) 10 Mg Tablet 10 Ml PO QID Dilaudid (Hydromorphone Hcl) 2 Mg Tablet 1 Mg PO PRN Q4HRS PRN Xanax (Alprazolam) 0.5 Mg Tablet 1 Tab PO BID PRN Nexium 24Hr (Esomeprazole Magnesium) 20 Mg Capsule.dr 20 Mg PO DAILY Escitalopram Oxalate 10 Mg Tablet 1 Tab PO DAILY Reported Lisinopril 10 Mg Tablet 1 Tab PO DAILY Vitals/I & O Vital Sign - Last 24 Hours 11/03/16 11/03/16 11/03/16 11/03/16 15:42 16:23 19:00 20:00 Temp 98.3 98.7 98.3 98.7 Pulse 83 81 Resp 18 18 B/P (MAP) 135/86 (102) 139/82 (101) Pulse Ox 97 95 O2 Delivery Room Air Room Air Room Air Room Air 11/03/16 11/04/16 11/04/16 11/04/16 22:55 02:53 07:33 08:08 Temp 98.4 98.4 98.2 98.4 98.4 98.2 Pulse 76 70 76 Resp 18 18 18 B/P (MAP) 142/93 (109) 159/97 (117) 169/98 (121) Pulse Ox 96 96 97 O2 Delivery Room Air Room Air Room Air Room Air 11/04/16 11/04/16 11/04/16 11/04/16 08:24 08:25 09:27 11:15 Temp 98.4 98.4 Pulse 76 87 Resp 18 B/P (MAP) 169/98 147/105 (119) Pulse Ox 98 O2 Delivery Room Air Room Air Room Air 11/04/16 12:35 O2 Delivery Room Air Intake and Output 11/03/16 11/03/16 11/04/16 15:00 23:00 07:00 Intake Total 1037.89 ml 612.11 ml Output Total 1300 ml 1500 ml Balance -262.11 ml -887.89 ml LIDIA URIAS MD November 04, 2016 13:49
[2016-11-04 14:24] VITALS: BP 151/98
[2016-11-04 19:43] VITALS: BP 147/97
[2016-11-04 23:55] VITALS: BP 154/97
--- NOTE | 2016-11-04 23:57 | PDOC ---
Provider Note Provider Note RENAL F/U : DAVI S : Doing better O : VSS Afebrile. Neck : Supple Lungs : Non labored. CVS : RRR Abd : Bengin appearance with no obvious distention Ext : No edema/trace Alert No distress. Labs reviewed. Overall labs better. CPM. SONG TOMLINSON MD November 04, 2016 23:57
[2016-11-05] MEDS: HYDROmorphone 2 MG TABLET PO PRN ×5 (03:23→22:21)
[2016-11-05 03:56] VITALS: BP 146/96
[2016-11-05] MEDS: SUCRALFATE 1 GM TABLET. PO SCH ×4 (06:08→21:17)
[2016-11-05] MEDS: PANTOPRAZOLE 40 MG TABLET.DR. PO SCH (06:08)
[2016-11-05 07:00] VITALS: BP 152/98
[2016-11-05] MEDS: ESCITALOPRAM 10 MG TABLET. PO SCH (08:02)
[2016-11-05] MEDS: METOCLOPRAMIDE 10 MG TABLET. PO SCH ×4 (08:03→21:17)
[2016-11-05] MEDS: LISINOPRIL 10 MG TABLET PO SCH (08:03)
[2016-11-05] MEDS: POTASSIUM CL 20MEQ-0.45% NACL 1,000 ML IV SCH ×2 (08:16→16:35)
[2016-11-05 11:00] VITALS: BP 155/97
[2016-11-05] MEDS ORDERED: LOPERAMIDE 2 MG CAPSULE PO PRN (14:00)
--- NOTE | 2016-11-05 14:11 | PDOC2 ---
GI CONSULT Reason For Consult: Abd pain, possible C Diff HPI: HPI: 60 y/o white female well-known to GI service. Chronic flares of diarrhea, abd pain, and n/v with repeated admissions. Symptoms possibly correlate w/ recurrent UTIs, at one point also thought to be related to alcohol use. GI history/workup: Most recent EGD by Dr. Orosco in 07/2016: acute esophagitis (entire esophagus) , small hiatal hernia. Colonoscopy by Dr. Díaz in 2013; colon biopsies were negative for microscopic colitis. GET in 03/2015 showed markedly delayed gastric emptying w/ T1/2 time of 1203 min. She does well w/ Reglan suspension, which is too expensive as an outpt, so she has been taking pills QIDACHS. HIDA in 03/2015 was normal w/ normal gallbladder ejection fraction. H/o GERD, symptoms controlled best w/ Nexium. H/o recurrent C Diff, treated w/ vanco as inpatient which is too expensive for her as outpt. Cholestyramine helps w/ diarrhea. Apparently was doing well GI-pink until last when LUQ/epigastric pain, n/v, odynophagia, and diarrhea recurred. Admitted w/ pyelonephritis on Rocephin. GI-pink, on Reglan, Carafate, viscous lidocaine, and PPI here. C Diff pending. Still has nausea although hasn't vomited in a couple days. Tolerating PO although hurts to swallow. Abd pain ongoing. Diarrhea w/ incontinence throughout the day. Now drinks wine "every now and again." PMH: PMH: HTN, GERD, gastroparesis, anemia, anxiety/depression, OA, fibromyalgia, C Diff, CRI, urinary retention w/ intermittent self cath, UTIs, knee replacement, tubal ligation, back surgery, foot surgery FH: Family History: No pertinent hx, CVA Social History: Smoke: No ALCOHOL: heavy (says now only a glass of wine "every now and again") Drugs: None ROS: GEN: Denies fevers, chills, sweats HEENT: Denies blurred vision, sore throat CV: Denies chest pain RESP: Denies shortness of air, cough GI: Per HPI : +dysuria - better ENDO: Denies weight changes NEURO: Denies confusion, dizziness MSK: Denies weakness, joint pain/swelling SKIN: Denies jaundice, pruritus Vitals: Vitals: Vital Signs Date Time Temp Pulse Resp B/P (MAP) Pulse Ox O2 Delivery O2 Flow Rate FiO2 11/05/16 11:23 97 Room Air 11/05/16 11:00 98.5 71 18 155/97 (116) 98.5 Labs: Labs: Please see EMR. Allergies: Coded Allergies: levofloxacin (Verified Allergy, Intermediate, 08/16/16) TOLERATES CIPRO morphine (Verified Allergy, Intermediate, tolerates Dilaudid, 07/26/16) I S O L A T I O N *CONTACT* (Verified Allergy, Unknown, 07/26/16) mrsa diphenhydramine HCl (Verified Adverse Reaction, Intermediate, "Jittery on the inside", 07/26/16) Medications: Please see EMR. Imaging: Imaging: Renal US IMPRESSION: Findings suggesting medical renal disease right to a significantly greater than left. CXR IMPRESSION: No acute cardiopulmonary abnormality is detected. PE: GEN: NAD HEENT: Atraumatic, PERRLA LUNGS: CTAB HEART: RRR, no murmurs ABD: NABS, S/ND/NT, no masses EXTREMITY: No edema SKIN: No rashes, no jaundice NEURO/PSYCH: A & O 3 A/P: A/P: Recurrent n/v, upper abd pain, diarrhea, and odynophagia -extensive GI workup as above -h/o gastroparesis, GERD/esophagitis, C Diff H/o C Diff UTI, GILES -- Await C Diff. Other per Dr. Orosco. ANNE-MARIE GARCIA November 05, 2016 14:11
[2016-11-05 15:00] VITALS: BP 135/78
--- NOTE | 2016-11-05 16:57 | PDOC ---
Renal-Progress Notes Subjective Notes Notes NONE History of Present Illness Hx of present illness NO CHANGE Vitals Vitals Vital Signs Date Time Temp Pulse Resp B/P (MAP) Pulse Ox O2 Delivery O2 Flow Rate FiO2 11/05/16 15:25 93 Room Air 11/05/16 15:00 98.5 89 18 135/78 (97) 98.5 Weight Weight [ ] I.O. Intake and Output Intake and Output 11/05/16 07:00 Intake Total 890 ml Output Total 3803 ml Balance -2913 ml Intake Oral 890 ml Output Urine Total 3800 ml Stool Total 3 ml Micro Micro Microbiology 11/01/16 Urine Culture - Final, Complete Review of Systems Constitutional: yes: alert Ears/Nose/Throat: Yes: no symptom reported Eyes: Yes: no symptom reported Genitourinary: Yes: no symptom reported Skin: Yes no symptom reported Psychiatric/Neurological: Yes: no symptom reported Physical Exam General Appearance: no apparent distress Skin: warm Respiratory: bilateral CTA Heart: S1S2, RRR Abdomen: soft, bowel sounds present Genitourinary: bladder flat Extremities: pulses present Neurology: alert Assessment Assessment IMP UTI URINARY RETENTION CKD STAGE 4 WITH CR OF 2.4 AND AT BASELINE LEUCOCYTOSIS-BETTER PLAN CONT IVF'S CONT ANTIBIOTICS CONT ESVIN-I ENC COMPLIANCE WITH SELF CATH LABS IN AM DESIREE HERNANDEZ MD November 05, 2016 16:56
[2016-11-05] MEDS: VANCOMYCIN 125 MG/2.5 ML ORAL SOLUTION. PO SCH ×2 (17:19→21:16)
[2016-11-05 19:30] VITALS: BP 144/98
[2016-11-05 23:00] VITALS: BP 123/82
[2016-11-06 03:00] VITALS: BP 128/81
[2016-11-06 07:00] VITALS: BP 131/78
[2016-11-06] MEDS: VANCOMYCIN 125 MG/2.5 ML ORAL SOLUTION. PO SCH ×4 (08:50→21:03)
[2016-11-06] MEDS: HYDROmorphone 2 MG TABLET PO PRN ×4 (08:51→21:04)
[2016-11-06] MEDS: ESCITALOPRAM 10 MG TABLET. PO SCH (08:51)
[2016-11-06] MEDS: METOCLOPRAMIDE 10 MG TABLET. PO SCH ×4 (08:51→21:03)
[2016-11-06] MEDS: SUCRALFATE 1 GM TABLET. PO SCH ×4 (08:52→21:03)
[2016-11-06] MEDS: LISINOPRIL 10 MG TABLET PO SCH (08:52)
[2016-11-06] MEDS: PANTOPRAZOLE 40 MG TABLET.DR. PO SCH (08:52)
--- NOTE | 2016-11-06 10:58 | PDOC ---
G I PROGRESS NOTE Subjective Sleeping, did not awaken. Physical Exam NO PE. Review of Relevant I have reviewed the following items blade (where applicable) has been applied. Labs Microbiology 11/01/16 Urine Culture - Final, Complete Medications Current Medications Aspirin (Belen Aspirin) 325 mg 1X ONCE PO Last administered on 11/01/16 14:45 ; Start 11/01/16 at 14:45; Stop 11/01/16 at 14:46; Status DC Sodium Chloride 1,000 ml @ 1,000 mls/hr 1X ONCE IV Last administered on 14:45; Start 11/01/16 at 14:45; Stop 11/01/16 at 15:44; Status DC Ondansetron HCl (Zofran) 4 mg 1X ONCE IV Last administered on 11/01/16 14:45; Start 11/01/16 at 14:45; Stop 11/01/16 at 14:46; Status DC Lorazepam (Ativan) 1 mg 1X ONCE IV Last administered on 11/01/16 14:45; Start 11/01/16 at 14:45; Stop 11/01/16 at 14:46; Status DC Fentanyl Citrate (Fentanyl 2ml Vial) 50 mcg PRN Q15MIN PRN IV PAIN GREATER THAN 3/10 Last administered on 11/01/16 18:00; Start 11/01/16 at 14:45; Stop 11/02 at 09:29; Status DC Multi-Ingredient Mouthwash/Gargle (Gi Cocktail Single Dose) 15 ml 1X ONCE SWSW Last administered on 11/01/16 14:45; Start 11/01/16 at 14:45; Stop 11/01/16 at 14:46; Status DC Ceftriaxone Sodium 50 ml @ 100 mls/hr 1X ONCE IV Last administered on 15:45; Start 11/01/16 at 15:45; Stop 11/01/16 at 16:14; Status DC Hydromorphone HCl (Dilaudid) 1 mg 1X ONCE IV Last administered on 11/01/16 15: 45; Start 11/01/16 at 15:45; Stop 11/01/16 at 15:46; Status DC Ondansetron HCl (Zofran) 4 mg PRN Q8HRS PRN IV NAUSEA/VOMITING; Start 11/01/16 at 17:00; Stop 11/02/16 at 16:59; Status DC Sodium Chloride 1,000 ml @ 100 mls/hr Q10H IV Last administered on 11/02/16 15 :42; Start 11/01/16 at 17:15; Stop 11/02/16 at 17:14; Status DC Acetaminophen (Tylenol) 650 mg PRN Q4HRS PRN PO FEVER Last administered on 18:00; Start 11/01/16 at 17:00; Stop 11/02/16 at 16:59; Status DC Acetaminophen/ Codeine Phosphate (Tylenol #3) 1 tab PRN Q6HRS PRN PO MILD PAIN ; Start 11/01/16 at 17:00 Alprazolam (Xanax) 0.5 mg BID PRN PO ANXIETY / AGITATION; Start 11/01/16 at 17: 00 Escitalopram Oxalate (Lexapro) 10 mg DAILY PO Last administered on 11/06/16 08: 51; Start 11/02/16 at 09:00 Hydromorphone HCl (Dilaudid) 0.5 mg PRN Q4HRS PRN PO SEVERE PAIN Last administered on 11/06/16 08:51; Start 11/01/16 at 17:00 Lisinopril (Prinivil) 10 mg DAILY PO Last administered on 11/06/16 08:52; Start 11/02/16 at 09:00 Metoclopramide HCl (Reglan) 10 mg QID PO Last administered on 11/03/16 12:10; Start 11/01/16 at 17:00; Stop 11/03/16 at 15:23; Status DC Pantoprazole Sodium (Protonix) 40 mg DAILYAC PO Last administered on 11/06/16 08:52; Start 11/02/16 at 07:30 Acetaminophen (Tylenol) 650 mg PRN Q6HRS PRN PO FEVER; Start 11/01/16 at 17:00 Ondansetron HCl (Zofran) 4 mg PRN Q6HRS PRN IV NAUSEA/VOMITING; Start 11/01/16 at 17:00 Ceftriaxone Sodium 1 gm/ Sodium Chloride 50 ml @ 100 mls/hr Q24H IV Last administered on 11/05/16 17:19; Start 11/02/16 at 16:00 Hydralazine HCl (Apresoline) 10 mg PRN Q4HRS PRN IVP ELEVATED BP, SEE COMMENTS ; Start 11/01/16 at 17:00 Tramadol HCl (Ultram) 100 mg PRN Q6HRS PRN PO MODERATE PAIN; Start 11/01/16 at 17:15 Lorazepam (Ativan) 2 mg PRN Q4HRS PRN IV ANXIETY / AGITATION Last administered on 11/02/16 08:09; Start 11/01/16 at 17:15; Stop 11/02/16 at 09:29; Status DC Lorazepam (Ativan) 1 mg PRN Q4HRS PRN IV ANXIETY / AGITATION Last administered on 11/06/16 08:50; Start 11/02/16 at 09:30 Hydromorphone HCl (Dilaudid) 0.4 mg PRN Q4HRS PRN IVP PAIN; Start 11/02/16 at 09 :30; Stop 11/03/16 at 10:50; Status DC Lidocaine HCl (Glydo (Lidocaine) Jelly) 1 veronica 1X ONCE MM ; Start 11/03/16 at 11: 00; Stop 11/03/16 at 11:01; Status DC Lidocaine HCl (Viscous Lidocaine) 15 ml PRN Q4HRS PRN SWSW MOUTH PAIN; Start at 11:00 Sucralfate (Carafate) 1 gm QIDACHS PO Last administered on 11/06/16 08:52; Start 11/03/16 at 11:30 Potassium Chloride 20 meq/ Potassium Chloride/Sodium Chloride 1,010 ml @ 75 mls /hr [id number] IV ; Start 11/03/16 at 11:15; Status Cancel Potassium Chloride/Sodium Chloride 1,000 ml @ 75 mls/hr [id number] IV Last administered on 11/05/16 16:35; Start 11/03/16 at 11:15 Metoclopramide HCl (Reglan) 5 mg QID PO Last administered on 11/06/16 08:51; Start 11/03/16 at 17:00 Loperamide HCl (Imodium) 2 mg PRN Q15MIN PRN PO DIARRHEA Last administered on 13:57; Start 5/8/17 at 14:00 Vancomycin HCl 125 mg [id number] PO Last administered on 11/06/16t 08:50; Start 11/05/16 at 17:00 Active Scripts Active Bactrim Ds Tablet (Sulfamethoxazole/Trimethoprim) 1 Each Tablet 1 Tab PO BID Tylenol With Codeine #3 Tablet (Acetaminophen/Codeine Phosphate) 1 Each Tablet 1 Tab PO PRN Q6HRS PRN Reglan (Metoclopramide Hcl) 10 Mg Tablet 10 Ml PO QID Dilaudid (Hydromorphone Hcl) 2 Mg Tablet 1 Mg PO PRN Q4HRS PRN Xanax (Alprazolam) 0.5 Mg Tablet 1 Tab PO BID PRN Nexium 24Hr (Esomeprazole Magnesium) 20 Mg Capsule.dr 20 Mg PO DAILY Escitalopram Oxalate 10 Mg Tablet 1 Tab PO DAILY Reported Lisinopril 10 Mg Tablet 1 Tab PO DAILY Vitals/I & O Vital Sign - Last 24 Hours 11/05/16 11/05/16 11/05/16 11/05/16 11:00 13:57 15:00 18:14 Temp 98.5 98.5 98.5 98.5 Pulse 71 89 Resp 18 18 B/P (MAP) 155/97 (116) 135/78 (97) Pulse Ox 97 97 93 93 O2 Delivery Room Air Room Air Room Air Room Air 11/05/16 11/05/16 11/05/16 11/06/16 19:30 22:21 23:00 03:00 Temp 98.9 98.2 98.4 98.9 98.2 98.4 Pulse 90 60 71 Resp 18 20 18 18 B/P (MAP) 144/98 (113) 123/82 (96) 128/81 (97) Pulse Ox 96 98 96 O2 Delivery Room Air Room Air Room Air Room Air 11/06/16 11/06/16 11/06/16 11/06/16 07:00 07:29 08:00 08:51 Temp 98.5 98.5 Pulse 82 Resp 18 B/P (MAP) 131/78 (95) Pulse Ox 97 96 96 O2 Delivery Room Air Room Air Room Air Room Air 11/06/16 08:52 Pulse 82 B/P (MAP) 131/78 Intake and Output 11/05/16 11/05/16 11/06/16 15:00 23:00 07:00 Intake Total 200 ml 840 ml Output Total 2903 ml 1600 ml Balance -2703 ml -760 ml Problem List Problems Medical Problems: (1) Acute renal failure Status: Acute (2) Gastroparesis Status: Acute (3) Leukocytosis Status: Acute (4) Pyelonephritis Status: Acute (5) Vomiting and diarrhea Status: Acute Assessment Recurrent C.diff. Management will be an issue, I think, given limited financial resources. Plan of Care: Continue current Tx, Mgmt PREET AMEZQUITA MD November 06, 2016 10:58
[2016-11-06 11:00] VITALS: BP 129/86
--- NOTE | 2016-11-06 11:48 | PDOC ---
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 Rodriguez states that her pain is "unbearable" today. She reports still having diarrhea. We discussed care with nurse. Vitals Vitals Vital Signs Date Time Temp Pulse Resp B/P (MAP) Pulse Ox O2 Delivery O2 Flow Rate FiO2 11/06/16 08:52 82 131/78 11/06/16 08:51 96 Room Air 11/06/16 07:00 98.5 18 98.5 Physical Exam General: Alert, Cooperative Heart: Regular rate, Normal S1, Normal S2 Lungs: Clear Abdomen: Normal bowel sounds, Soft Extremities: No clubbing, No cyanosis Skin: No rashes, No breakdown Review of Systems Review of Systems General: complains of generalized pain GI: complains of diarrhea, denies N/V/C Assessment and Plan Assessmemt and Plan Problems Medical Problems: (1) Acute renal failure Status: Acute (2) Gastroparesis Status: Acute (3) Leukocytosis Status: Acute (4) Pyelonephritis Status: Acute (5) Vomiting and diarrhea Status: Acute Complicated UTI UTI with h/o chronic UTI chronic abd pain chronic back pain 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 C.diff positive - GI recommends continued Vanc and Ceftriaxone 2. Increase pain meds 3. Repeat labs in AM 4. PT/OT as appropriate 5. Subspecialist input appreciated Problems: Comment Review of Relevant I have reviewed the following items blade (where applicable) has been applied. Labs Microbiology 11/01/16 Urine Culture - Final, Complete Medications Current Medications Aspirin (Belen Aspirin) 325 mg 1X ONCE PO Last administered on 11/01/16t 14:45 ; Start 11/01/16 at 14:45; Stop 11/01/16 at 14:46; Status DC Sodium Chloride 1,000 ml @ 1,000 mls/hr 1X ONCE IV Last administered on 14:45; Start 11/01/16 at 14:45; Stop 11/01/16 at 15:44; Status DC Ondansetron HCl (Zofran) 4 mg 1X ONCE IV Last administered on 11/01/16 14:45; Start 11/01/16 at 14:45; Stop 11/01/16 at 14:46; Status DC Lorazepam (Ativan) 1 mg 1X ONCE IV Last administered on 11/01/16 14:45; Start 11/01/16 at 14:45; Stop 11/01/16 at 14:46; Status DC Fentanyl Citrate (Fentanyl 2ml Vial) 50 mcg PRN Q15MIN PRN IV PAIN GREATER THAN 3/10 Last administered on 11/01/16 18:00; Start 11/01/16 at 14:45; Stop 11/02 at 09:29; Status DC Multi-Ingredient Mouthwash/Gargle (Gi Cocktail Single Dose) 15 ml 1X ONCE SWSW Last administered on 11/01/16 14:45; Start 11/01/16 at 14:45; Stop 11/01/16 at 14:46; Status DC Ceftriaxone Sodium 50 ml @ 100 mls/hr 1X ONCE IV Last administered on 15:45; Start 11/01/16 at 15:45; Stop 11/01/16 at 16:14; Status DC Hydromorphone HCl (Dilaudid) 1 mg 1X ONCE IV Last administered on 11/01/16 15: 45; Start 11/01/16 at 15:45; Stop 11/01/16 at 15:46; Status DC Ondansetron HCl (Zofran) 4 mg PRN Q8HRS PRN IV NAUSEA/VOMITING; Start 11/01/16 at 17:00; Stop 11/02/16 at 16:59; Status DC Sodium Chloride 1,000 ml @ 100 mls/hr Q10H IV Last administered on 11/02/16 15 :42; Start 11/01/16 at 17:15; Stop 11/02/16 at 17:14; Status DC Acetaminophen (Tylenol) 650 mg PRN Q4HRS PRN PO FEVER Last administered on 18:00; Start 11/01/16 at 17:00; Stop 11/02/16 at 16:59; Status DC Acetaminophen/ Codeine Phosphate (Tylenol #3) 1 tab PRN Q6HRS PRN PO MILD PAIN ; Start 11/01/16 at 17:00 Alprazolam (Xanax) 0.5 mg BID PRN PO ANXIETY / AGITATION; Start 11/01/16 at 17: 00 Escitalopram Oxalate (Lexapro) 10 mg DAILY PO Last administered on 11/06/16 08: 51; Start 11/02/16 at 09:00 Hydromorphone HCl (Dilaudid) 0.5 mg PRN Q4HRS PRN PO SEVERE PAIN Last administered on 11/06/16 08:51; Start 11/01/16 at 17:00 Lisinopril (Prinivil) 10 mg DAILY PO Last administered on 11/06/16 08:52; Start 11/02/16 at 09:00 Metoclopramide HCl (Reglan) 10 mg QID PO Last administered on 11/03/16 12:10; Start 11/01/16 at 17:00; Stop 11/03/16 at 15:23; Status DC Pantoprazole Sodium (Protonix) 40 mg DAILYAC PO Last administered on 11/06/16 08:52; Start 11/02/16 at 07:30 Acetaminophen (Tylenol) 650 mg PRN Q6HRS PRN PO FEVER; Start 11/01/16 at 17:00 Ondansetron HCl (Zofran) 4 mg PRN Q6HRS PRN IV NAUSEA/VOMITING; Start 11/01/16 at 17:00 Ceftriaxone Sodium 1 gm/ Sodium Chloride 50 ml @ 100 mls/hr Q24H IV Last administered on 11/05/16 17:19; Start 11/02/16 at 16:00 Hydralazine HCl (Apresoline) 10 mg PRN Q4HRS PRN IVP ELEVATED BP, SEE COMMENTS ; Start 11/01/16 at 17:00 Tramadol HCl (Ultram) 100 mg PRN Q6HRS PRN PO MODERATE PAIN; Start 11/01/16 at 17:15 Lorazepam (Ativan) 2 mg PRN Q4HRS PRN IV ANXIETY / AGITATION Last administered on 11/02/16 08:09; Start 11/01/16 at 17:15; Stop 11/02/16 at 09:29; Status DC Lorazepam (Ativan) 1 mg PRN Q4HRS PRN IV ANXIETY / AGITATION Last administered on 11/06/16 08:50; Start 11/02/16 at 09:30 Hydromorphone HCl (Dilaudid) 0.4 mg PRN Q4HRS PRN IVP PAIN; Start 11/02/16 at 09 :30; Stop 11/03/16 at 10:50; Status DC Lidocaine HCl (Glydo (Lidocaine) Jelly) 1 veronica 1X ONCE MM ; Start 11/03/16 at 11: 00; Stop 11/03/16 at 11:01; Status DC Lidocaine HCl (Viscous Lidocaine) 15 ml PRN Q4HRS PRN SWSW MOUTH PAIN; Start at 11:00 Sucralfate (Carafate) 1 gm QIDACHS PO Last administered on 11/06/16 08:52; Start 11/03/16 at 11:30 Potassium Chloride 20 meq/ Potassium Chloride/Sodium Chloride 1,010 ml @ 75 mls /hr [id number] IV ; Start 11/03/16 at 11:15; Status Cancel Potassium Chloride/Sodium Chloride 1,000 ml @ 75 mls/hr [id number] IV Last administered on 11/05/16 16:35; Start 11/03/16 at 11:15 Metoclopramide HCl (Reglan) 5 mg QID PO Last administered on 11/06/16 08:51; Start 11/03/16 at 17:00 Loperamide HCl (Imodium) 2 mg PRN Q15MIN PRN PO DIARRHEA Last administered on 13:57; Start 11/05/16 at 14:00 Vancomycin HCl 125 mg [id number] PO Last administered on 11/06/16 08:50; Start 11/05/16 at 17:00 Active Scripts Active Bactrim Ds Tablet (Sulfamethoxazole/Trimethoprim) 1 Each Tablet 1 Tab PO BID Tylenol With Codeine #3 Tablet (Acetaminophen/Codeine Phosphate) 1 Each Tablet 1 Tab PO PRN Q6HRS PRN Reglan (Metoclopramide Hcl) 10 Mg Tablet 10 Ml PO QID Dilaudid (Hydromorphone Hcl) 2 Mg Tablet 1 Mg PO PRN Q4HRS PRN Xanax (Alprazolam) 0.5 Mg Tablet 1 Tab PO BID PRN Nexium 24Hr (Esomeprazole Magnesium) 20 Mg Capsule.dr 20 Mg PO DAILY Escitalopram Oxalate 10 Mg Tablet 1 Tab PO DAILY Reported Lisinopril 10 Mg Tablet 1 Tab PO DAILY Vitals/I & O Vital Sign - Last 24 Hours 11/05/16 11/05/16 11/05/16 11/05/16 13:57 15:00 18:14 19:30 Temp 98.5 98.9 98.5 98.9 Pulse 89 90 Resp 18 18 B/P (MAP) 135/78 (97) 144/98 (113) Pulse Ox 97 93 93 96 O2 Delivery Room Air Room Air Room Air Room Air 11/05/16 11/05/16 11/06/16 11/06/16 22:21 23:00 03:00 07:00 Temp 98.2 98.4 98.5 98.2 98.4 98.5 Pulse 60 71 82 Resp 20 18 18 18 B/P (MAP) 123/82 (96) 128/81 (97) 131/78 (95) Pulse Ox 98 96 97 O2 Delivery Room Air Room Air Room Air Room Air 11/06/16 11/06/16 11/06/16 11/06/16 07:29 08:00 08:51 08:52 Pulse 82 B/P (MAP) 131/78 Pulse Ox 96 96 O2 Delivery Room Air Room Air Room Air Intake and Output 11/05/16 11/05/16 11/06/16 15:00 23:00 07:00 Intake Total 200 ml 840 ml Output Total 2903 ml 1600 ml Balance -2703 ml -760 ml ZA MAHONEY III DO November 06, 2016 11:48
--- NOTE | 2016-11-06 12:14 | PDOC ---
Renal-Progress Notes Subjective Notes Notes NONE History of Present Illness Hx of present illness NO CHANGE Vitals Vitals Vital Signs Date Time Temp Pulse Resp B/P (MAP) Pulse Ox O2 Delivery O2 Flow Rate FiO2 11/06/16 11:00 98.2 86 18 129/86 (100) 99 Room Air 98.2 Weight Weight [ ] I.O. Intake and Output Intake and Output 11/06/16 06:59 Intake Total 1040 ml Output Total 4503 ml Balance -3463 ml Intake Oral 440 ml Other 600 ml Output Urine Total 4500 ml Stool Total 3 ml Micro Micro Microbiology 11/01/16 Urine Culture - Final, Complete Review of Systems Constitutional: yes: alert Ears/Nose/Throat: Yes: no symptom reported Eyes: Yes: no symptom reported Genitourinary: Yes: no symptom reported Skin: Yes no symptom reported Psychiatric/Neurological: Yes: no symptom reported Physical Exam General Appearance: no apparent distress Skin: warm Respiratory: bilateral CTA Heart: S1S2, RRR Abdomen: soft, bowel sounds present Genitourinary: bladder flat Extremities: pulses present Neurology: alert Assessment Assessment IMP UTI URINARY RETENTION CKD STAGE 4 WITH CR OF 2.4 AND AT BASELINE YESTERDAY LEUCOCYTOSIS-BETTER PLAN CONT IVF'S CONT ANTIBIOTICS CONT ESVIN-I ENC COMPLIANCE WITH SELF CATH LABS IN AM, LABS TODAY STILL PENDING DESIREE HERNANDEZ MD November 06, 2016 12:14
[2016-11-06] MEDS: POTASSIUM CL 20MEQ-0.45% NACL 1,000 ML IV SCH ×2 (12:58→19:15)
[2016-11-06 15:00] VITALS: BP 119/83
[2016-11-06 19:38] VITALS: BP 133/78
[2016-11-06 23:09] VITALS: BP 131/81
[2016-11-07 02:38] VITALS: BP 124/86
[2016-11-07] MEDS: POTASSIUM CL 20MEQ-0.45% NACL 1,000 ML IV SCH ×2 (03:00→16:53)
[2016-11-07 05:44] LABS: BASO # 0.1 x10^3/uL (0.0-0.2); BASO % 1 % (0-3); EOS % 8 % (0-3); HEMATOCRIT 36.7 % (36.0-47.0); HEMOGLOBIN 12.5 g/dL (12.0-15.5); LYMPH # 2.9 x10^3/uL (1.0-4.8); LYMPH % 38 % (24-48); MEAN CORPUSCULAR HEMOGLOBIN 30 pg (25-35); MEAN CORPUSCULAR HGB CONC 34 g/dL (31-37); MEAN CORPUSCULAR VOLUME 88 fL (79-100); MONO % 13 % (0-9); NEUT % 40 % (31-73); PLATELET COUNT 356 x10^3/uL (140-400); RED BLOOD COUNT 4.16 x10^6/uL (3.50-5.40); WHITE BLOOD COUNT 7.8 x10^3/uL (4.0-11.0)
[2016-11-07 05:54] LABS: CALCIUM 9.3 mg/dL (8.5-10.1); GFR 25.4; POTASSIUM 5.1 mmol/L (3.5-5.1)
[2016-11-07 05:59] LABS: RED CELL DISTRIBUTION WIDTH 14.8 % (11.5-14.5)
[2016-11-07 07:00] VITALS: BP 156/99
[2016-11-07] MEDS: VANCOMYCIN 125 MG/2.5 ML ORAL SOLUTION. PO SCH ×4 (09:01→21:25)
[2016-11-07] MEDS: SUCRALFATE 1 GM TABLET. PO SCH ×4 (09:01→21:15)
[2016-11-07] MEDS: PANTOPRAZOLE 40 MG TABLET.DR. PO SCH (09:01)
[2016-11-07] MEDS: HYDROmorphone 2 MG TABLET PO PRN ×4 (09:02→21:16)
[2016-11-07] MEDS: METOCLOPRAMIDE 10 MG TABLET. PO SCH (09:02)
[2016-11-07] MEDS: ESCITALOPRAM 10 MG TABLET. PO SCH (09:02)
[2016-11-07] MEDS: LISINOPRIL 10 MG TABLET PO SCH (09:03)
--- NOTE | 2016-11-07 09:38 | PDOC ---
G I PROGRESS NOTE Subjective Diarrhea/incontinence continue. Odynophagia/occasional nausea and vomiting as well. Objective Discussed better effect with prokinetic suspension; she's to speak with insurance company re: this. Physical Exam Lungs clear. RRR Abdomen soft, not tender nor distended. Review of Relevant I have reviewed the following items blade (where applicable) has been applied. Labs Laboratory Tests Test 11/07/16 04:30 White Blood Count 7.8 x10^3/uL (4.0-11.0) Red Blood Count 4.16 x10^6/uL (3.50-5.40) Hemoglobin 12.5 g/dL (12.0-15.5) Hematocrit 36.7 % (36.0-47.0) Mean Corpuscular Volume 88 fL (79-100) Mean Corpuscular Hemoglobin 30 pg (25-35) Mean Corpuscular Hemoglobin Concent 34 g/dL (31-37) Red Cell Distribution Width 14.8 % (11.5-14.5) Platelet Count 356 x10^3/uL (140-400) Neutrophils (%) (Auto) 40 % (31-73) Lymphocytes (%) (Auto) 38 % (24-48) Monocytes (%) (Auto) 13 % (0-9) Eosinophils (%) (Auto) 8 % (0-3) Basophils (%) (Auto) 1 % (0-3) Neutrophils # (Auto) 3.1 x10^3uL (1.8-7.7) Lymphocytes # (Auto) 2.9 x10^3/uL (1.0-4.8) Monocytes # (Auto) 1.0 x10^3/uL (0.0-1.1) Eosinophils # (Auto) 0.6 x10^3/uL (0.0-0.7) Basophils # (Auto) 0.1 x10^3/uL (0.0-0.2) Sodium Level 132 mmol/L (136-145) Potassium Level 5.1 mmol/L (3.5-5.1) Chloride Level 103 mmol/L (98-107) Carbon Dioxide Level 26 mmol/L (21-32) Anion Gap 3 (6-14) Blood Urea Nitrogen 40 mg/dL (7-20) Creatinine 2.0 mg/dL (0.6-1.0) Estimated GFR (Cockcroft-Gault) 25.4 Glucose Level 83 mg/dL (70-99) Calcium Level 9.3 mg/dL (8.5-10.1) Laboratory Tests Test 11/07/16 04:30 White Blood Count 7.8 x10^3/uL (4.0-11.0) Red Blood Count 4.16 x10^6/uL (3.50-5.40) Hemoglobin 12.5 g/dL (12.0-15.5) Hematocrit 36.7 % (36.0-47.0) Mean Corpuscular Volume 88 fL (79-100) Mean Corpuscular Hemoglobin 30 pg (25-35) Mean Corpuscular Hemoglobin Concent 34 g/dL (31-37) Red Cell Distribution Width 14.8 % (11.5-14.5) Platelet Count 356 x10^3/uL (140-400) Neutrophils (%) (Auto) 40 % (31-73) Lymphocytes (%) (Auto) 38 % (24-48) Monocytes (%) (Auto) 13 % (0-9) Eosinophils (%) (Auto) 8 % (0-3) Basophils (%) (Auto) 1 % (0-3) Neutrophils # (Auto) 3.1 x10^3uL (1.8-7.7) Lymphocytes # (Auto) 2.9 x10^3/uL (1.0-4.8) Monocytes # (Auto) 1.0 x10^3/uL (0.0-1.1) Eosinophils # (Auto) 0.6 x10^3/uL (0.0-0.7) Basophils # (Auto) 0.1 x10^3/uL (0.0-0.2) Sodium Level 132 mmol/L (136-145) Potassium Level 5.1 mmol/L (3.5-5.1) Chloride Level 103 mmol/L (98-107) Carbon Dioxide Level 26 mmol/L (21-32) Anion Gap 3 (6-14) Blood Urea Nitrogen 40 mg/dL (7-20) Creatinine 2.0 mg/dL (0.6-1.0) Estimated GFR (Cockcroft-Gault) 25.4 Glucose Level 83 mg/dL (70-99) Calcium Level 9.3 mg/dL (8.5-10.1) Microbiology 11/01/16 Urine Culture - Final, Complete Medications Current Medications Aspirin (Belen Aspirin) 325 mg 1X ONCE PO Last administered on 11/01/16 14:45 ; Start 11/01/16 at 14:45; Stop 11/01/16 at 14:46; Status DC Sodium Chloride 1,000 ml @ 1,000 mls/hr 1X ONCE IV Last administered on 14:45; Start 11/01/16 at 14:45; Stop 11/01/16 at 15:44; Status DC Ondansetron HCl (Zofran) 4 mg 1X ONCE IV Last administered on 11/01/16 14:45; Start 11/01/16 at 14:45; Stop 11/01/16 at 14:46; Status DC Lorazepam (Ativan) 1 mg 1X ONCE IV Last administered on 11/01/16 14:45; Start 11/01/16 at 14:45; Stop 11/01/16 at 14:46; Status DC Fentanyl Citrate (Fentanyl 2ml Vial) 50 mcg PRN Q15MIN PRN IV PAIN GREATER THAN 3/10 Last administered on 11/01/16 18:00; Start 11/01/16 at 14:45; Stop 11/02 at 09:29; Status DC Multi-Ingredient Mouthwash/Gargle (Gi Cocktail Single Dose) 15 ml 1X ONCE SWSW Last administered on 11/01/16 14:45; Start 11/01/16 at 14:45; Stop 11/01/16 at 14:46; Status DC Ceftriaxone Sodium 50 ml @ 100 mls/hr 1X ONCE IV Last administered on 15:45; Start 11/01/16 at 15:45; Stop 11/01/16 at 16:14; Status DC Hydromorphone HCl (Dilaudid) 1 mg 1X ONCE IV Last administered on 11/01/16 15: 45; Start 11/01/16 at 15:45; Stop 11/01/16 at 15:46; Status DC Ondansetron HCl (Zofran) 4 mg PRN Q8HRS PRN IV NAUSEA/VOMITING; Start 11/01/16 at 17:00; Stop 11/02/16 at 16:59; Status DC Sodium Chloride 1,000 ml @ 100 mls/hr Q10H IV Last administered on 11/02/16 15 :42; Start 11/01/16 at 17:15; Stop 11/02/16 at 17:14; Status DC Acetaminophen (Tylenol) 650 mg PRN Q4HRS PRN PO FEVER Last administered on 18:00; Start 11/01/16 at 17:00; Stop 11/02/16 at 16:59; Status DC Acetaminophen/ Codeine Phosphate (Tylenol #3) 1 tab PRN Q6HRS PRN PO MILD PAIN ; Start 11/01/16 at 17:00 Alprazolam (Xanax) 0.5 mg BID PRN PO ANXIETY / AGITATION; Start 11/01/16 at 17: 00 Escitalopram Oxalate (Lexapro) 10 mg DAILY PO Last administered on 11/07/16 09 :02; Start 11/02/16 at 09:00 Hydromorphone HCl (Dilaudid) 0.5 mg PRN Q4HRS PRN PO SEVERE PAIN Last administered on 11/07/16 09:02; Start 11/01/16 at 17:00 Lisinopril (Prinivil) 10 mg DAILY PO Last administered on 11/07/16 09:03; Start 11/02/16 at 09:00 Metoclopramide HCl (Reglan) 10 mg QID PO Last administered on 11/03/16 12:10; Start 11/01/16 at 17:00; Stop 11/03/16 at 15:23; Status DC Pantoprazole Sodium (Protonix) 40 mg DAILYAC PO Last administered on 11/07/16 09:01; Start 11/02/16 at 07:30 Acetaminophen (Tylenol) 650 mg PRN Q6HRS PRN PO FEVER; Start 11/01/16 at 17:00 Ondansetron HCl (Zofran) 4 mg PRN Q6HRS PRN IV NAUSEA/VOMITING; Start 11/01/16 at 17:00 Ceftriaxone Sodium 1 gm/ Sodium Chloride 50 ml @ 100 mls/hr Q24H IV Last administered on 11/06/16 16:47; Start 11/02/16 at 16:00 Hydralazine HCl (Apresoline) 10 mg PRN Q4HRS PRN IVP ELEVATED BP, SEE COMMENTS ; Start 11/01/16 at 17:00 Tramadol HCl (Ultram) 100 mg PRN Q6HRS PRN PO MODERATE PAIN; Start 11/01/16 at 17:15 Lorazepam (Ativan) 2 mg PRN Q4HRS PRN IV ANXIETY / AGITATION Last administered on 11/02/16 08:09; Start 11/01/16 at 17:15; Stop 11/02/16 at 09:29; Status DC Lorazepam (Ativan) 1 mg PRN Q4HRS PRN IV ANXIETY / AGITATION Last administered on 11/07/16 09:03; Start 11/02/16 at 09:30 Hydromorphone HCl (Dilaudid) 0.4 mg PRN Q4HRS PRN IVP PAIN; Start 11/02/16 at 09 :30; Stop 11/03/16 at 10:50; Status DC Lidocaine HCl (Glydo (Lidocaine) Jelly) 1 veronica 1X ONCE MM ; Start 11/03/16 at 11: 00; Stop 11/03/16 at 11:01; Status DC Lidocaine HCl (Viscous Lidocaine) 15 ml PRN Q4HRS PRN SWSW MOUTH PAIN; Start at 11:00 Sucralfate (Carafate) 1 gm QIDACHS PO Last administered on 11/07/16 09:01; Start 11/03/16 at 11:30 Potassium Chloride 20 meq/ Potassium Chloride/Sodium Chloride 1,010 ml @ 75 mls /hr [id number] IV ; Start 11/03/16 at 11:15; Status Cancel Potassium Chloride/Sodium Chloride 1,000 ml @ 75 mls/hr [id number] IV Last administered on 11/07/16 03:00; Start 11/03/16 at 11:15 Metoclopramide HCl (Reglan) 5 mg QID PO Last administered on 11/07/16 09:02; Start 11/03/16 at 17:00 Loperamide HCl (Imodium) 2 mg PRN Q15MIN PRN PO DIARRHEA Last administered on 13:57; Start 11/05/16 at 14:00 Vancomycin HCl 125 mg [id number] PO Last administered on 5/10/17at 09:01; Start at 17:00 Active Scripts Active Bactrim Ds Tablet (Sulfamethoxazole/Trimethoprim) 1 Each Tablet 1 Tab PO BID Tylenol With Codeine #3 Tablet (Acetaminophen/Codeine Phosphate) 1 Each Tablet 1 Tab PO PRN Q6HRS PRN Reglan (Metoclopramide Hcl) 10 Mg Tablet 10 Ml PO QID Dilaudid (Hydromorphone Hcl) 2 Mg Tablet 1 Mg PO PRN Q4HRS PRN Xanax (Alprazolam) 0.5 Mg Tablet 1 Tab PO BID PRN Nexium 24Hr (Esomeprazole Magnesium) 20 Mg Capsule.dr 20 Mg PO DAILY Escitalopram Oxalate 10 Mg Tablet 1 Tab PO DAILY Reported Lisinopril 10 Mg Tablet 1 Tab PO DAILY Vitals/I & O Vital Sign - Last 24 Hours 11/06/16 11/06/16 11/06/16 11/06/16 11:00 13:00 15:00 16:44 Temp 98.2 98.2 98.2 98.2 Pulse 86 84 Resp 18 18 B/P (MAP) 129/86 (100) 119/83 (95) Pulse Ox 99 99 96 96 O2 Delivery Room Air Room Air Room Air Room Air 11/06/16 11/06/16 11/06/16 11/06/16 18:17 19:38 20:00 21:04 Pulse 93 Resp 18 16 B/P (MAP) 133/78 (96) Pulse Ox 96 98 O2 Delivery Room Air Room Air Room Air Room Air 11/06/16 11/07/16 11/07/16 11/07/16 23:09 02:38 07:00 09:02 Temp 98.8 97.5 98.8 97.5 Pulse 75 74 81 Resp 18 18 18 18 B/P (MAP) 131/81 (98) 124/86 (99) 156/99 (118) Pulse Ox 97 96 99 O2 Delivery Room Air Room Air Room Air Room Air 11/07/16 09:03 Pulse 81 B/P (MAP) 156/99 Intake and Output 11/06/16 11/06/16 11/07/16 14:59 22:59 06:59 Intake Total 600 ml 840 ml Output Total 1400 ml 950 ml Balance 600 ml -560 ml -950 ml Problem List Problems Medical Problems: (1) Acute renal failure Status: Acute (2) Gastroparesis Status: Acute (3) Leukocytosis Status: Acute (4) Pyelonephritis Status: Acute (5) Vomiting and diarrhea Status: Acute Assessment Recurrent C.diff. GERD/gastroparesis. Plan of Care: Continue current Tx, Mgmt Plan of Care Note Will be sure she's on Reglan suspension. PREET AMEZQUITA MD November 07, 2016 09:38
[2016-11-07 11:00] VITALS: BP 109/79
--- NOTE | 2016-11-07 11:03 | PDOC ---
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 Nurse was present changing bed covers bc of loose BM by patient. Patient educated on C. Diff. Patient states that she's had this for a couple of years. Plans to chronically manage were discussed. Vitals Vitals Vital Signs Date Time Temp Pulse Resp B/P (MAP) Pulse Ox O2 Delivery O2 Flow Rate FiO2 11/07/16 09:58 16 Room Air 11/07/16 09:03 81 156/99 11/07/16 07:00 97.5 99 97.5 Physical Exam General: Alert, Cooperative Heart: Regular rate, Normal S1, Normal S2 Lungs: Clear Abdomen: Normal bowel sounds, Soft Extremities: No clubbing, No cyanosis Skin: No rashes, No breakdown Labs LABS Laboratory Tests Test 11/07/16 04:30 White Blood Count 7.8 x10^3/uL (4.0-11.0) Red Blood Count 4.16 x10^6/uL (3.50-5.40) Hemoglobin 12.5 g/dL (12.0-15.5) Hematocrit 36.7 % (36.0-47.0) Mean Corpuscular Volume 88 fL (79-100) Mean Corpuscular Hemoglobin 30 pg (25-35) Mean Corpuscular Hemoglobin Concent 34 g/dL (31-37) Red Cell Distribution Width 14.8 % (11.5-14.5) Platelet Count 356 x10^3/uL (140-400) Neutrophils (%) (Auto) 40 % (31-73) Lymphocytes (%) (Auto) 38 % (24-48) Monocytes (%) (Auto) 13 % (0-9) Eosinophils (%) (Auto) 8 % (0-3) Basophils (%) (Auto) 1 % (0-3) Neutrophils # (Auto) 3.1 x10^3uL (1.8-7.7) Lymphocytes # (Auto) 2.9 x10^3/uL (1.0-4.8) Monocytes # (Auto) 1.0 x10^3/uL (0.0-1.1) Eosinophils # (Auto) 0.6 x10^3/uL (0.0-0.7) Basophils # (Auto) 0.1 x10^3/uL (0.0-0.2) Sodium Level 132 mmol/L (136-145) Potassium Level 5.1 mmol/L (3.5-5.1) Chloride Level 103 mmol/L (98-107) Carbon Dioxide Level 26 mmol/L (21-32) Anion Gap 3 (6-14) Blood Urea Nitrogen 40 mg/dL (7-20) Creatinine 2.0 mg/dL (0.6-1.0) Estimated GFR (Cockcroft-Gault) 25.4 Glucose Level 83 mg/dL (70-99) Calcium Level 9.3 mg/dL (8.5-10.1) Review of Systems Review of Systems No HOLLAND/blurry vision No SOB No chest pain No rashes Assessment and Plan Assessmemt and Plan Problems Medical Problems: (1) Acute renal failure Status: Acute (2) Gastroparesis Status: Acute (3) Leukocytosis Status: Acute (4) Pyelonephritis Status: Acute (5) Vomiting and diarrhea Status: Acute Chronic Diarrhea with h/o cdiff colitis Complicated UTI UTI with h/o chronic UTI Chronic abd pain Chronic back pain GILES with Vasomotor, dehydration 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 -Continue contact precautions due to confirmed C. Diff. -Continue consultation with GI b/c of C. Diff. -Continue consultation with nephrology b/c of CKD. -Continue daily blood draws to monitor CKD. -Continue PT/OT. Problems: Comment Review of Relevant I have reviewed the following items blade (where applicable) has been applied. Labs Laboratory Tests Test 11/07/16 04:30 White Blood Count 7.8 x10^3/uL (4.0-11.0) Red Blood Count 4.16 x10^6/uL (3.50-5.40) Hemoglobin 12.5 g/dL (12.0-15.5) Hematocrit 36.7 % (36.0-47.0) Mean Corpuscular Volume 88 fL (79-100) Mean Corpuscular Hemoglobin 30 pg (25-35) Mean Corpuscular Hemoglobin Concent 34 g/dL (31-37) Red Cell Distribution Width 14.8 % (11.5-14.5) Platelet Count 356 x10^3/uL (140-400) Neutrophils (%) (Auto) 40 % (31-73) Lymphocytes (%) (Auto) 38 % (24-48) Monocytes (%) (Auto) 13 % (0-9) Eosinophils (%) (Auto) 8 % (0-3) Basophils (%) (Auto) 1 % (0-3) Neutrophils # (Auto) 3.1 x10^3uL (1.8-7.7) Lymphocytes # (Auto) 2.9 x10^3/uL (1.0-4.8) Monocytes # (Auto) 1.0 x10^3/uL (0.0-1.1) Eosinophils # (Auto) 0.6 x10^3/uL (0.0-0.7) Basophils # (Auto) 0.1 x10^3/uL (0.0-0.2) Sodium Level 132 mmol/L (136-145) Potassium Level 5.1 mmol/L (3.5-5.1) Chloride Level 103 mmol/L (98-107) Carbon Dioxide Level 26 mmol/L (21-32) Anion Gap 3 (6-14) Blood Urea Nitrogen 40 mg/dL (7-20) Creatinine 2.0 mg/dL (0.6-1.0) Estimated GFR (Cockcroft-Gault) 25.4 Glucose Level 83 mg/dL (70-99) Calcium Level 9.3 mg/dL (8.5-10.1) Laboratory Tests Test 11/07/16 04:30 White Blood Count 7.8 x10^3/uL (4.0-11.0) Red Blood Count 4.16 x10^6/uL (3.50-5.40) Hemoglobin 12.5 g/dL (12.0-15.5) Hematocrit 36.7 % (36.0-47.0) Mean Corpuscular Volume 88 fL (79-100) Mean Corpuscular Hemoglobin 30 pg (25-35) Mean Corpuscular Hemoglobin Concent 34 g/dL (31-37) Red Cell Distribution Width 14.8 % (11.5-14.5) Platelet Count 356 x10^3/uL (140-400) Neutrophils (%) (Auto) 40 % (31-73) Lymphocytes (%) (Auto) 38 % (24-48) Monocytes (%) (Auto) 13 % (0-9) Eosinophils (%) (Auto) 8 % (0-3) Basophils (%) (Auto) 1 % (0-3) Neutrophils # (Auto) 3.1 x10^3uL (1.8-7.7) Lymphocytes # (Auto) 2.9 x10^3/uL (1.0-4.8) Monocytes # (Auto) 1.0 x10^3/uL (0.0-1.1) Eosinophils # (Auto) 0.6 x10^3/uL (0.0-0.7) Basophils # (Auto) 0.1 x10^3/uL (0.0-0.2) Sodium Level 132 mmol/L (136-145) Potassium Level 5.1 mmol/L (3.5-5.1) Chloride Level 103 mmol/L (98-107) Carbon Dioxide Level 26 mmol/L (21-32) Anion Gap 3 (6-14) Blood Urea Nitrogen 40 mg/dL (7-20) Creatinine 2.0 mg/dL (0.6-1.0) Estimated GFR (Cockcroft-Gault) 25.4 Glucose Level 83 mg/dL (70-99) Calcium Level 9.3 mg/dL (8.5-10.1) Microbiology 11/01/16 Urine Culture - Final, Complete Medications Current Medications Aspirin (Belen Aspirin) 325 mg 1X ONCE PO Last administered on 11/01/16 14:45 ; Start 11/01/16 at 14:45; Stop 11/01/16 at 14:46; Status DC Sodium Chloride 1,000 ml @ 1,000 mls/hr 1X ONCE IV Last administered on 14:45; Start 11/01/16 at 14:45; Stop 11/01/16 at 15:44; Status DC Ondansetron HCl (Zofran) 4 mg 1X ONCE IV Last administered on 11/01/16 14:45; Start 11/01/16 at 14:45; Stop 11/01/16 at 14:46; Status DC Lorazepam (Ativan) 1 mg 1X ONCE IV Last administered on 11/01/16 14:45; Start 11/01/16 at 14:45; Stop 11/01/16 at 14:46; Status DC Fentanyl Citrate (Fentanyl 2ml Vial) 50 mcg PRN Q15MIN PRN IV PAIN GREATER THAN 3/10 Last administered on 11/01/16 18:00; Start 11/01/16 at 14:45; Stop 11/02 at 09:29; Status DC Multi-Ingredient Mouthwash/Gargle (Gi Cocktail Single Dose) 15 ml 1X ONCE SWSW Last administered on 11/01/16 14:45; Start 11/01/16 at 14:45; Stop 11/01/16 at 14:46; Status DC Ceftriaxone Sodium 50 ml @ 100 mls/hr 1X ONCE IV Last administered on 15:45; Start 11/01/16 at 15:45; Stop 11/01/16 at 16:14; Status DC Hydromorphone HCl (Dilaudid) 1 mg 1X ONCE IV Last administered on 11/01/16 15: 45; Start 11/01/16 at 15:45; Stop 11/01/16 at 15:46; Status DC Ondansetron HCl (Zofran) 4 mg PRN Q8HRS PRN IV NAUSEA/VOMITING; Start 11/01/16 at 17:00; Stop 11/02/16 at 16:59; Status DC Sodium Chloride 1,000 ml @ 100 mls/hr Q10H IV Last administered on 11/02/16 15 :42; Start 11/01/16 at 17:15; Stop 11/02/16 at 17:14; Status DC Acetaminophen (Tylenol) 650 mg PRN Q4HRS PRN PO FEVER Last administered on 18:00; Start 11/01/16 at 17:00; Stop 11/02/16 at 16:59; Status DC Acetaminophen/ Codeine Phosphate (Tylenol #3) 1 tab PRN Q6HRS PRN PO MILD PAIN ; Start 11/01/16 at 17:00 Alprazolam (Xanax) 0.5 mg BID PRN PO ANXIETY / AGITATION; Start 11/01/16 at 17: 00 Escitalopram Oxalate (Lexapro) 10 mg DAILY PO Last administered on 11/07/16 09 :02; Start 11/02/16 at 09:00 Hydromorphone HCl (Dilaudid) 0.5 mg PRN Q4HRS PRN PO SEVERE PAIN Last administered on 11/07/16 09:02; Start 11/01/16 at 17:00; Stop 11/07/16 at 10:07 ; Status DC Lisinopril (Prinivil) 10 mg DAILY PO Last administered on 11/07/16 09:03; Start 11/02/16 at 09:00 Metoclopramide HCl (Reglan) 10 mg QID PO Last administered on 11/03/16 12:10; Start 11/01/16 at 17:00; Stop 11/03/16 at 15:23; Status DC Pantoprazole Sodium (Protonix) 40 mg DAILYAC PO Last administered on 11/07/16 09:01; Start 11/02/16 at 07:30 Acetaminophen (Tylenol) 650 mg PRN Q6HRS PRN PO FEVER; Start 11/01/16 at 17:00 Ondansetron HCl (Zofran) 4 mg PRN Q6HRS PRN IV NAUSEA/VOMITING; Start 11/01/16 at 17:00 Ceftriaxone Sodium 1 gm/ Sodium Chloride 50 ml @ 100 mls/hr Q24H IV Last administered on 11/06/16 16:47; Start 11/02/16 at 16:00 Hydralazine HCl (Apresoline) 10 mg PRN Q4HRS PRN IVP ELEVATED BP, SEE COMMENTS ; Start 11/01/16 at 17:00 Tramadol HCl (Ultram) 100 mg PRN Q6HRS PRN PO MODERATE PAIN; Start 11/01/16 at 17:15 Lorazepam (Ativan) 2 mg PRN Q4HRS PRN IV ANXIETY / AGITATION Last administered on 11/02/16 08:09; Start 11/01/16 at 17:15; Stop 11/02/16 at 09:29; Status DC Lorazepam (Ativan) 1 mg PRN Q4HRS PRN IV ANXIETY / AGITATION Last administered on 11/07/16 09:03; Start 11/02/16 at 09:30 Hydromorphone HCl (Dilaudid) 0.4 mg PRN Q4HRS PRN IVP PAIN; Start 11/02/16 at 09 :30; Stop 11/03/16 at 10:50; Status DC Lidocaine HCl (Glydo (Lidocaine) Jelly) 1 veronica 1X ONCE MM ; Start 11/03/16 at 11: 00; Stop 11/03/16 at 11:01; Status DC Lidocaine HCl (Viscous Lidocaine) 15 ml PRN Q4HRS PRN SWSW MOUTH PAIN; Start at 11:00 Sucralfate (Carafate) 1 gm QIDACHS PO Last administered on 11/07/16 09:01; Start 11/03/16 at 11:30 Potassium Chloride 20 meq/ Potassium Chloride/Sodium Chloride 1,010 ml @ 75 mls /hr [id number] IV ; Start 11/03/16 at 11:15; Status Cancel Potassium Chloride/Sodium Chloride 1,000 ml @ 75 mls/hr [id number] IV Last administered on 11/07/16 03:00; Start 11/03/16 at 11:15 Metoclopramide HCl (Reglan) 5 mg QID PO Last administered on 11/07/16 09:02; Start 11/03/16 at 17:00; Stop 11/07/16 at 09:41; Status DC Loperamide HCl (Imodium) 2 mg PRN Q15MIN PRN PO DIARRHEA Last administered on 13:57; Start 11/05/16 at 14:00 Vancomycin HCl 125 mg [id number] PO Last administered on 11/07/16 09:01; Start at 17:00 Metoclopramide HCl (Reglan) 5 mg QIDACHS PO ; Start 11/07/16 at 11:30 Hydromorphone HCl (Dilaudid) 1 mg PRN Q4HRS PRN PO PAIN; Start 11/07/16 at 11: 00 Active Scripts Active Bactrim Ds Tablet (Sulfamethoxazole/Trimethoprim) 1 Each Tablet 1 Tab PO BID Tylenol With Codeine #3 Tablet (Acetaminophen/Codeine Phosphate) 1 Each Tablet 1 Tab PO PRN Q6HRS PRN Reglan (Metoclopramide Hcl) 10 Mg Tablet 10 Ml PO QID Dilaudid (Hydromorphone Hcl) 2 Mg Tablet 1 Mg PO PRN Q4HRS PRN Xanax (Alprazolam) 0.5 Mg Tablet 1 Tab PO BID PRN Nexium 24Hr (Esomeprazole Magnesium) 20 Mg Capsule.dr 20 Mg PO DAILY Escitalopram Oxalate 10 Mg Tablet 1 Tab PO DAILY Reported Lisinopril 10 Mg Tablet 1 Tab PO DAILY Vitals/I & O Vital Sign - Last 24 Hours 11/06/16 11/06/16 11/06/16 11/06/16 11:00 13:00 15:00 16:44 Temp 98.2 98.2 98.2 98.2 Pulse 86 84 Resp 18 18 B/P (MAP) 129/86 (100) 119/83 (95) Pulse Ox 99 99 96 96 O2 Delivery Room Air Room Air Room Air Room Air 11/06/16 11/06/16 11/06/16 11/06/16 18:17 19:38 20:00 21:04 Pulse 93 Resp 18 16 B/P (MAP) 133/78 (96) Pulse Ox 96 98 O2 Delivery Room Air Room Air Room Air 11/06/16 11/07/16 11/07/16 11/07/16 23:09 02:38 07:00 08:00 Temp 98.8 97.5 98.8 97.5 Pulse 75 74 81 Resp 18 18 18 B/P (MAP) 131/81 (98) 124/86 (99) 156/99 (118) Pulse Ox 97 96 99 O2 Delivery Room Air Room Air Room Air Room Air 11/07/16 11/07/16 11/07/16 09:02 09:03 09:58 Pulse 81 Resp 18 16 B/P (MAP) 156/99 O2 Delivery Room Air Room Air Intake and Output 11/06/16 11/06/16 11/07/16 15:00 23:00 07:00 Intake Total 600 ml 840 ml Output Total 1400 ml 950 ml Balance 600 ml -560 ml -950 ml ZA MAHONEY III DO November 07, 2016 11:03
--- NOTE | 2016-11-07 12:07 | PDOC ---
Renal-Progress Notes Subjective Notes Notes STILL TIRED, AND STILL HAS NO APPETITE History of Present Illness Hx of present illness BETTER Vitals Vitals Vital Signs Date Time Temp Pulse Resp B/P (MAP) Pulse Ox O2 Delivery O2 Flow Rate FiO2 11/07/16 11:00 97.9 94 18 109/79 (89) 98 Room Air 97.9 Weight Weight [ ] I.O. Intake and Output Intake and Output 11/07/16 06:59 Intake Total 1440 ml Output Total 2350 ml Balance -910 ml Intake Oral 1440 ml Output Urine Total 2350 ml # Voids 2 # Bowel Movements 1 Labs Labs Laboratory Tests Test 11/07/16 04:30 White Blood Count 7.8 x10^3/uL (4.0-11.0) Red Blood Count 4.16 x10^6/uL (3.50-5.40) Hemoglobin 12.5 g/dL (12.0-15.5) Hematocrit 36.7 % (36.0-47.0) Mean Corpuscular Volume 88 fL (79-100) Mean Corpuscular Hemoglobin 30 pg (25-35) Mean Corpuscular Hemoglobin Concent 34 g/dL (31-37) Red Cell Distribution Width 14.8 % (11.5-14.5) Platelet Count 356 x10^3/uL (140-400) Neutrophils (%) (Auto) 40 % (31-73) Lymphocytes (%) (Auto) 38 % (24-48) Monocytes (%) (Auto) 13 % (0-9) Eosinophils (%) (Auto) 8 % (0-3) Basophils (%) (Auto) 1 % (0-3) Neutrophils # (Auto) 3.1 x10^3uL (1.8-7.7) Lymphocytes # (Auto) 2.9 x10^3/uL (1.0-4.8) Monocytes # (Auto) 1.0 x10^3/uL (0.0-1.1) Eosinophils # (Auto) 0.6 x10^3/uL (0.0-0.7) Basophils # (Auto) 0.1 x10^3/uL (0.0-0.2) Sodium Level 132 mmol/L (136-145) Potassium Level 5.1 mmol/L (3.5-5.1) Chloride Level 103 mmol/L (98-107) Carbon Dioxide Level 26 mmol/L (21-32) Anion Gap 3 (6-14) Blood Urea Nitrogen 40 mg/dL (7-20) Creatinine 2.0 mg/dL (0.6-1.0) Estimated GFR (Cockcroft-Gault) 25.4 Glucose Level 83 mg/dL (70-99) Calcium Level 9.3 mg/dL (8.5-10.1) Micro Micro Microbiology 11/01/16 Urine Culture - Final, Complete Review of Systems Constitutional: yes: alert Ears/Nose/Throat: Yes: no symptom reported Eyes: Yes: no symptom reported Genitourinary: Yes: no symptom reported Skin: Yes no symptom reported Psychiatric/Neurological: Yes: no symptom reported Physical Exam General Appearance: no apparent distress Skin: warm Respiratory: bilateral CTA Heart: S1S2, RRR Abdomen: soft, bowel sounds present Genitourinary: bladder flat Extremities: pulses present Neurology: alert Assessment Assessment IMP UTI URINARY RETENTION CKD STAGE 4 WITH CR OF 2.0 LEUCOCYTOSIS-BETTER PLAN CONT IVF'S CONT ANTIBIOTICS CONT ESVIN-I ENC COMPLIANCE WITH SELF CATH LABS IN AM DESIREE HERNANDEZ MD November 07, 2016 12:07
[2016-11-07] MEDS: METOCLOPRAMIDE HCL 10 MG/10 ML SOLUTION. PO SCH ×3 (12:41→21:15)
[2016-11-07 15:00] VITALS: BP 131/86
[2016-11-07 19:15] VITALS: BP 113/74
[2016-11-07] MEDS: CEFPODOXIME PROXETIL 100 MG TABLET. PO SCH (21:15)
[2016-11-07 23:05] VITALS: BP 103/70
[2016-11-08] MEDS: ALPRAZolam 0.5 MG TABLET PO PRN (02:42)
[2016-11-08] MEDS: HYDROmorphone 2 MG TABLET PO PRN ×5 (02:42→20:48)
[2016-11-08 03:05] VITALS: BP 116/69
[2016-11-08] MEDS: POTASSIUM CL 20MEQ-0.45% NACL 1,000 ML IV SCH (06:34)
[2016-11-08 07:08] VITALS: BP 97/64
[2016-11-08 07:31] LABS: BASO # 0.1 x10^3/uL (0.0-0.2); BASO % 1 % (0-3); EOS % 7 % (0-3); HEMATOCRIT 33.9 % (36.0-47.0); HEMOGLOBIN 11.6 g/dL (12.0-15.5); LYMPH # 3.4 x10^3/uL (1.0-4.8); LYMPH % 46 % (24-48); MEAN CORPUSCULAR HEMOGLOBIN 30 pg (25-35); MEAN CORPUSCULAR HGB CONC 34 g/dL (31-37); MEAN CORPUSCULAR VOLUME 88 fL (79-100); MONO % 14 % (0-9); NEUT % 32 % (31-73); PLATELET COUNT 316 x10^3/uL (140-400); RED BLOOD COUNT 3.85 x10^6/uL (3.50-5.40); RED CELL DISTRIBUTION WIDTH 14.6 % (11.5-14.5); WHITE BLOOD COUNT 7.4 x10^3/uL (4.0-11.0)
[2016-11-08 07:43] LABS: CALCIUM 9.6 mg/dL (8.5-10.1); CREATININE 1.9 mg/dL (0.6-1.0); POTASSIUM 5.7 mmol/L (3.5-5.1)
[2016-11-08] MEDS: METOCLOPRAMIDE HCL 10 MG/10 ML SOLUTION. PO SCH ×4 (08:51→20:39)
[2016-11-08] MEDS: VANCOMYCIN 125 MG/2.5 ML ORAL SOLUTION. PO SCH ×4 (08:51→20:41)
[2016-11-08] MEDS: CEFPODOXIME PROXETIL 100 MG TABLET. PO SCH ×2 (08:52→20:39)
[2016-11-08] MEDS: SUCRALFATE 1 GM TABLET. PO SCH ×4 (08:52→20:40)
[2016-11-08] MEDS: PANTOPRAZOLE 40 MG TABLET.DR. PO SCH (08:54)
[2016-11-08] MEDS: ESCITALOPRAM 10 MG TABLET. PO SCH (08:54)
[2016-11-08] MEDS: LISINOPRIL 10 MG TABLET PO SCH (08:56)
--- NOTE | 2016-11-08 10:53 | PDOC ---
Renal-Progress Notes Subjective Notes Notes NO NEW COMPLAINTS History of Present Illness Hx of present illness STABLE Vitals Vitals Vital Signs Date Time Temp Pulse Resp B/P (MAP) Pulse Ox O2 Delivery O2 Flow Rate FiO2 11/08/16 10:45 94 Room Air 11/08/16 08:56 70 97/64 11/08/16 07:08 99.4 20 99.4 Weight Weight [ ] I.O. Intake and Output Intake and Output 11/08/16 07:00 Intake Total 500 ml Output Total 1400 ml Balance -900 ml Intake Oral 500 ml Output Urine Total 1400 ml # Voids 1 Labs Labs Laboratory Tests Test 11/08/16 07:10 White Blood Count 7.4 x10^3/uL (4.0-11.0) Red Blood Count 3.85 x10^6/uL (3.50-5.40) Hemoglobin 11.6 g/dL (12.0-15.5) Hematocrit 33.9 % (36.0-47.0) Mean Corpuscular Volume 88 fL (79-100) Mean Corpuscular Hemoglobin 30 pg (25-35) Mean Corpuscular Hemoglobin Concent 34 g/dL (31-37) Red Cell Distribution Width 14.6 % (11.5-14.5) Platelet Count 316 x10^3/uL (140-400) Neutrophils (%) (Auto) 32 % (31-73) Lymphocytes (%) (Auto) 46 % (24-48) Monocytes (%) (Auto) 14 % (0-9) Eosinophils (%) (Auto) 7 % (0-3) Basophils (%) (Auto) 1 % (0-3) Neutrophils # (Auto) 2.3 x10^3uL (1.8-7.7) Lymphocytes # (Auto) 3.4 x10^3/uL (1.0-4.8) Monocytes # (Auto) 1.0 x10^3/uL (0.0-1.1) Eosinophils # (Auto) 0.6 x10^3/uL (0.0-0.7) Basophils # (Auto) 0.1 x10^3/uL (0.0-0.2) Sodium Level 135 mmol/L (136-145) Potassium Level 5.7 mmol/L (3.5-5.1) Chloride Level 104 mmol/L (98-107) Carbon Dioxide Level 24 mmol/L (21-32) Anion Gap 7 (6-14) Blood Urea Nitrogen 44 mg/dL (7-20) Creatinine 1.9 mg/dL (0.6-1.0) Estimated GFR (Cockcroft-Gault) 27.0 Glucose Level 91 mg/dL (70-99) Calcium Level 9.6 mg/dL (8.5-10.1) Micro Micro Microbiology 11/01/16 Urine Culture - Final, Complete Review of Systems Constitutional: yes: alert Ears/Nose/Throat: Yes: no symptom reported Eyes: Yes: no symptom reported Genitourinary: Yes: no symptom reported Skin: Yes no symptom reported Psychiatric/Neurological: Yes: no symptom reported Physical Exam General Appearance: no apparent distress Skin: warm Respiratory: bilateral CTA Heart: S1S2, RRR Abdomen: soft, bowel sounds present Genitourinary: bladder flat Extremities: pulses present Neurology: alert Assessment Assessment IMP UTI URINARY RETENTION 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
[2016-11-08 11:00] VITALS: BP 110/73
--- NOTE | 2016-11-08 11:34 | PDOC ---
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 Patient continues to have loose stools. Patient understands plan of action to continue antibiotics for C.Diff. and pyelonephritis. Vitals Vitals Vital Signs Date Time Temp Pulse Resp B/P (MAP) Pulse Ox O2 Delivery O2 Flow Rate FiO2 11/08/16 11:00 97.6 78 19 110/73 (85) 95 Room Air 97.6 Physical Exam General: Alert, Cooperative Heart: Regular rate, Normal S1, Normal S2 Lungs: Clear Abdomen: Normal bowel sounds, Soft Extremities: No clubbing, No cyanosis Skin: No rashes, No breakdown Labs LABS Laboratory Tests Test 11/08/16 07:10 White Blood Count 7.4 x10^3/uL (4.0-11.0) Red Blood Count 3.85 x10^6/uL (3.50-5.40) Hemoglobin 11.6 g/dL (12.0-15.5) Hematocrit 33.9 % (36.0-47.0) Mean Corpuscular Volume 88 fL (79-100) Mean Corpuscular Hemoglobin 30 pg (25-35) Mean Corpuscular Hemoglobin Concent 34 g/dL (31-37) Red Cell Distribution Width 14.6 % (11.5-14.5) Platelet Count 316 x10^3/uL (140-400) Neutrophils (%) (Auto) 32 % (31-73) Lymphocytes (%) (Auto) 46 % (24-48) Monocytes (%) (Auto) 14 % (0-9) Eosinophils (%) (Auto) 7 % (0-3) Basophils (%) (Auto) 1 % (0-3) Neutrophils # (Auto) 2.3 x10^3uL (1.8-7.7) Lymphocytes # (Auto) 3.4 x10^3/uL (1.0-4.8) Monocytes # (Auto) 1.0 x10^3/uL (0.0-1.1) Eosinophils # (Auto) 0.6 x10^3/uL (0.0-0.7) Basophils # (Auto) 0.1 x10^3/uL (0.0-0.2) Sodium Level 135 mmol/L (136-145) Potassium Level 5.7 mmol/L (3.5-5.1) Chloride Level 104 mmol/L (98-107) Carbon Dioxide Level 24 mmol/L (21-32) Anion Gap 7 (6-14) Blood Urea Nitrogen 44 mg/dL (7-20) Creatinine 1.9 mg/dL (0.6-1.0) Estimated GFR (Cockcroft-Gault) 27.0 Glucose Level 91 mg/dL (70-99) Calcium Level 9.6 mg/dL (8.5-10.1) Review of Systems Review of Systems No JVD No SOB No chest pain No rashes No HOLLAND/blurry vision Assessment and Plan Assessmemt and Plan Problems Medical Problems: (1) Acute renal failure Status: Acute (2) Gastroparesis Status: Acute (3) Leukocytosis Status: Acute (4) Pyelonephritis Status: Acute (5) Vomiting and diarrhea Status: Acute Chronic Diarrhea with h/o cdiff colitis Complicated UTI UTI with h/o chronic UTI Chronic abd pain Chronic back pain 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 -Continue PT/OT. -Continue contact precautions since patient is C Diff. positive. -Consider chronic Flagyl to prophylax patient- patient has chronic C Diff. -Continue consultation with GI b/c of C. Diff. -Continue consultation with nephrology b/c of CKD. -Continue daily blood draws to monitor CKD. Problems: Comment Review of Relevant I have reviewed the following items blade (where applicable) has been applied. Labs Laboratory Tests Test 11/07/16 04:30 11/08/16 07:10 White Blood Count 7.8 x10^3/uL (4.0-11.0) 7.4 x10^3/uL (4.0-11.0) Red Blood Count 4.16 x10^6/uL (3.50-5.40) 3.85 x10^6/uL (3.50-5.40) Hemoglobin 12.5 g/dL (12.0-15.5) 11.6 g/dL (12.0-15.5) Hematocrit 36.7 % (36.0-47.0) 33.9 % (36.0-47.0) Mean Corpuscular Volume 88 fL (79-100) 88 fL (79-100) Mean Corpuscular Hemoglobin 30 pg (25-35) 30 pg (25-35) Mean Corpuscular Hemoglobin Concent 34 g/dL (31-37) 34 g/dL (31-37) Red Cell Distribution Width 14.8 % (11.5-14.5) 14.6 % (11.5-14.5) Platelet Count 356 x10^3/uL (140-400) 316 x10^3/uL (140-400) Neutrophils (%) (Auto) 40 % (31-73) 32 % (31-73) Lymphocytes (%) (Auto) 38 % (24-48) 46 % (24-48) Monocytes (%) (Auto) 13 % (0-9) 14 % (0-9) Eosinophils (%) (Auto) 8 % (0-3) 7 % (0-3) Basophils (%) (Auto) 1 % (0-3) 1 % (0-3) Neutrophils # (Auto) 3.1 x10^3uL (1.8-7.7) 2.3 x10^3uL (1.8-7.7) Lymphocytes # (Auto) 2.9 x10^3/uL (1.0-4.8) 3.4 x10^3/uL (1.0-4.8) Monocytes # (Auto) 1.0 x10^3/uL (0.0-1.1) 1.0 x10^3/uL (0.0-1.1) Eosinophils # (Auto) 0.6 x10^3/uL (0.0-0.7) 0.6 x10^3/uL (0.0-0.7) Basophils # (Auto) 0.1 x10^3/uL (0.0-0.2) 0.1 x10^3/uL (0.0-0.2) Sodium Level 132 mmol/L (136-145) 135 mmol/L (136-145) Potassium Level 5.1 mmol/L (3.5-5.1) 5.7 mmol/L (3.5-5.1) Chloride Level 103 mmol/L (98-107) 104 mmol/L (98-107) Carbon Dioxide Level 26 mmol/L (21-32) 24 mmol/L (21-32) Anion Gap 3 (6-14) 7 (6-14) Blood Urea Nitrogen 40 mg/dL (7-20) 44 mg/dL (7-20) Creatinine 2.0 mg/dL (0.6-1.0) 1.9 mg/dL (0.6-1.0) Estimated GFR (Cockcroft-Gault) 25.4 27.0 Glucose Level 83 mg/dL (70-99) 91 mg/dL (70-99) Calcium Level 9.3 mg/dL (8.5-10.1) 9.6 mg/dL (8.5-10.1) Laboratory Tests Test 11/08/16 07:10 White Blood Count 7.4 x10^3/uL (4.0-11.0) Red Blood Count 3.85 x10^6/uL (3.50-5.40) Hemoglobin 11.6 g/dL (12.0-15.5) Hematocrit 33.9 % (36.0-47.0) Mean Corpuscular Volume 88 fL (79-100) Mean Corpuscular Hemoglobin 30 pg (25-35) Mean Corpuscular Hemoglobin Concent 34 g/dL (31-37) Red Cell Distribution Width 14.6 % (11.5-14.5) Platelet Count 316 x10^3/uL (140-400) Neutrophils (%) (Auto) 32 % (31-73) Lymphocytes (%) (Auto) 46 % (24-48) Monocytes (%) (Auto) 14 % (0-9) Eosinophils (%) (Auto) 7 % (0-3) Basophils (%) (Auto) 1 % (0-3) Neutrophils # (Auto) 2.3 x10^3uL (1.8-7.7) Lymphocytes # (Auto) 3.4 x10^3/uL (1.0-4.8) Monocytes # (Auto) 1.0 x10^3/uL (0.0-1.1) Eosinophils # (Auto) 0.6 x10^3/uL (0.0-0.7) Basophils # (Auto) 0.1 x10^3/uL (0.0-0.2) Sodium Level 135 mmol/L (136-145) Potassium Level 5.7 mmol/L (3.5-5.1) Chloride Level 104 mmol/L (98-107) Carbon Dioxide Level 24 mmol/L (21-32) Anion Gap 7 (6-14) Blood Urea Nitrogen 44 mg/dL (7-20) Creatinine 1.9 mg/dL (0.6-1.0) Estimated GFR (Cockcroft-Gault) 27.0 Glucose Level 91 mg/dL (70-99) Calcium Level 9.6 mg/dL (8.5-10.1) Microbiology 11/01/16 Urine Culture - Final, Complete Medications Current Medications Aspirin (FatSkunk Aspirin) 325 mg 1X ONCE PO Last administered on 11/01/16 14:45 ; Start 11/01/16 at 14:45; Stop 11/01/16 at 14:46; Status DC Sodium Chloride 1,000 ml @ 1,000 mls/hr 1X ONCE IV Last administered on 14:45; Start 11/01/16 at 14:45; Stop 11/01/16 at 15:44; Status DC Ondansetron HCl (Zofran) 4 mg 1X ONCE IV Last administered on 11/01/16 14:45; Start 11/01/16 at 14:45; Stop 11/01/16 at 14:46; Status DC Lorazepam (Ativan) 1 mg 1X ONCE IV Last administered on 11/01/16 14:45; Start 11/01/16 at 14:45; Stop 11/01/16 at 14:46; Status DC Fentanyl Citrate (Fentanyl 2ml Vial) 50 mcg PRN Q15MIN PRN IV PAIN GREATER THAN 3/10 Last administered on 11/01/16 18:00; Start 11/01/16 at 14:45; Stop 11/02 at 09:29; Status DC Multi-Ingredient Mouthwash/Gargle (Gi Cocktail Single Dose) 15 ml 1X ONCE SWSW Last administered on 11/01/16 14:45; Start 11/01/16 at 14:45; Stop 11/01/16 at 14:46; Status DC Ceftriaxone Sodium 50 ml @ 100 mls/hr 1X ONCE IV Last administered on 15:45; Start 11/01/16 at 15:45; Stop 11/01/16 at 16:14; Status DC Hydromorphone HCl (Dilaudid) 1 mg 1X ONCE IV Last administered on 11/01/16 15: 45; Start 11/01/16 at 15:45; Stop 11/01/16 at 15:46; Status DC Ondansetron HCl (Zofran) 4 mg PRN Q8HRS PRN IV NAUSEA/VOMITING; Start 11/01/16 at 17:00; Stop 11/02/16 at 16:59; Status DC Sodium Chloride 1,000 ml @ 100 mls/hr Q10H IV Last administered on 11/02/16 15 :42; Start 11/01/16 at 17:15; Stop 11/02/16 at 17:14; Status DC Acetaminophen (Tylenol) 650 mg PRN Q4HRS PRN PO FEVER Last administered on 18:00; Start 11/01/16 at 17:00; Stop 11/02/16 at 16:59; Status DC Acetaminophen/ Codeine Phosphate (Tylenol #3) 1 tab PRN Q6HRS PRN PO MILD PAIN ; Start 11/01/16 at 17:00 Alprazolam (Xanax) 0.5 mg BID PRN PO ANXIETY / AGITATION Last administered on 02:42; Start 11/01/16 at 17:00 Escitalopram Oxalate (Lexapro) 10 mg DAILY PO Last administered on 11/08/16 08 :54; Start 11/02/16 at 09:00 Hydromorphone HCl (Dilaudid) 0.5 mg PRN Q4HRS PRN PO SEVERE PAIN Last administered on 11/07/16 09:02; Start 11/01/16 at 17:00; Stop 11/07/16 at 10:07 ; Status DC Lisinopril (Prinivil) 10 mg DAILY PO Last administered on 11/07/16 09:03; Start 11/02/16 at 09:00 Metoclopramide HCl (Reglan) 10 mg QID PO Last administered on 11/03/16 12:10; Start 11/01/16 at 17:00; Stop 11/03/16 at 15:23; Status DC Pantoprazole Sodium (Protonix) 40 mg DAILYAC PO Last administered on 11/08/16 08:54; Start 11/02/16 at 07:30 Acetaminophen (Tylenol) 650 mg PRN Q6HRS PRN PO FEVER; Start 11/01/16 at 17:00 Ondansetron HCl (Zofran) 4 mg PRN Q6HRS PRN IV NAUSEA/VOMITING; Start 11/01/16 at 17:00 Ceftriaxone Sodium 1 gm/ Sodium Chloride 50 ml @ 100 mls/hr Q24H IV Last administered on 11/07/16 15:53; Start 11/02/16 at 16:00; Stop 11/07/16 at 18:00 ; Status DC Hydralazine HCl (Apresoline) 10 mg PRN Q4HRS PRN IVP ELEVATED BP, SEE COMMENTS ; Start 11/01/16 at 17:00 Tramadol HCl (Ultram) 100 mg PRN Q6HRS PRN PO MODERATE PAIN; Start 11/01/16 at 17:15 Lorazepam (Ativan) 2 mg PRN Q4HRS PRN IV ANXIETY / AGITATION Last administered on 11/02/16 08:09; Start 11/01/16 at 17:15; Stop 11/02/16 at 09:29; Status DC Lorazepam (Ativan) 1 mg PRN Q4HRS PRN IV ANXIETY / AGITATION Last administered on 11/08/16 08:55; Start 11/02/16 at 09:30 Hydromorphone HCl (Dilaudid) 0.4 mg PRN Q4HRS PRN IVP PAIN; Start 11/02/16 at 09 :30; Stop 11/03/16 at 10:50; Status DC Lidocaine HCl (Glydo (Lidocaine) Jelly) 1 veronica 1X ONCE MM ; Start 11/03/16 at 11: 00; Stop 11/03/16 at 11:01; Status DC Lidocaine HCl (Viscous Lidocaine) 15 ml PRN Q4HRS PRN SWSW MOUTH PAIN; Start at 11:00 Sucralfate (Carafate) 1 gm QIDACHS PO Last administered on 11/08/16 08:52; Start 11/03/16 at 11:30 Potassium Chloride 20 meq/ Potassium Chloride/Sodium Chloride 1,010 ml @ 75 mls /hr [id number] IV ; Start 11/03/16 at 11:15; Status Cancel Potassium Chloride/Sodium Chloride 1,000 ml @ 75 mls/hr [id number] IV Last administered on 11/08/16 06:34; Start 11/03/16 at 11:15; Stop 11/08/16 at 10:55 ; Status DC Metoclopramide HCl (Reglan) 5 mg QID PO Last administered on 11/07/16 09:02; Start 11/03/16 at 17:00; Stop 11/07/16 at 09:41; Status DC Loperamide HCl (Imodium) 2 mg PRN Q15MIN PRN PO DIARRHEA Last administered on 13:57; Start 11/05/16 at 14:00 Vancomycin HCl 125 mg [id number] PO Last administered on 11/08/16 08:51; Start at 17:00 Metoclopramide HCl (Reglan) 5 mg QIDACHS PO Last administered on 11/08/16 08: 51; Start 11/07/16 at 11:30 Hydromorphone HCl (Dilaudid) 1 mg PRN Q4HRS PRN PO PAIN Last administered on 08:55; Start 11/07/16 at 11:00 Cefpodoxime Proxetil (Vantin) 200 mg BID PO Last administered on 11/08/16 08: 52; Start 11/07/16 at 21:00 Sodium Chloride 1,000 ml @ 75 mls/hr [id number] IV ; Start 11/08/16 at 11:00 Active Scripts Active Bactrim Ds Tablet (Sulfamethoxazole/Trimethoprim) 1 Each Tablet 1 Tab PO BID Tylenol With Codeine #3 Tablet (Acetaminophen/Codeine Phosphate) 1 Each Tablet 1 Tab PO PRN Q6HRS PRN Reglan (Metoclopramide Hcl) 10 Mg Tablet 10 Ml PO QID Dilaudid (Hydromorphone Hcl) 2 Mg Tablet 1 Mg PO PRN Q4HRS PRN Xanax (Alprazolam) 0.5 Mg Tablet 1 Tab PO BID PRN Nexium 24Hr (Esomeprazole Magnesium) 20 Mg Capsule.dr 20 Mg PO DAILY Escitalopram Oxalate 10 Mg Tablet 1 Tab PO DAILY Reported Lisinopril 10 Mg Tablet 1 Tab PO DAILY Vitals/I & O Vital Sign - Last 24 Hours 11/07/16 11/07/16 11/07/16 11/07/16 12:42 15:00 16:54 17:58 Temp 98.7 98.7 Pulse 88 Resp 16 18 16 16 B/P (MAP) 131/86 (101) Pulse Ox 96 O2 Delivery Room Air Room Air Room Air 11/07/16 11/07/16 11/07/16 11/08/16 19:15 20:00 23:05 03:05 Temp 99.4 99.4 Pulse 81 83 74 Resp 18 18 18 B/P (MAP) 113/74 (87) 103/70 (81) 116/69 (85) Pulse Ox 95 94 95 O2 Delivery Room Air Room Air Room Air Room Air 11/08/16 11/08/16 11/08/16 11/08/16 07:08 08:00 08:55 08:56 Temp 99.4 99.4 Pulse 70 70 Resp 20 B/P (MAP) 97/64 (75) 97/64 Pulse Ox 94 94 O2 Delivery Room Air Room Air Room Air 11/08/16 11/08/16 10:45 11:00 Temp 97.6 97.6 Pulse 78 Resp 19 B/P (MAP) 110/73 (85) Pulse Ox 94 95 O2 Delivery Room Air Room Air Intake and Output 11/07/16 11/07/16 11/08/16 15:00 23:00 07:00 Intake Total 500 ml Output Total 1000 ml 400 ml Balance -1000 ml 500 ml -400 ml ZA MAHONEY III DO November 08, 2016 11:34
[2016-11-08] MEDS: IV NORMAL SALINE 1000ML BAG 1,000 ML IV SCH (12:42)
--- NOTE | 2016-11-08 12:53 | PDOC ---
G I PROGRESS NOTE Subjective No worse. Odynophagia seems to be worst issue today. Physical Exam Lungs clear. RRR Abdomen soft, not tender. Review of Relevant I have reviewed the following items blade (where applicable) has been applied. Labs Laboratory Tests Test 11/07/16 04:30 11/08/16 07:10 White Blood Count 7.8 x10^3/uL (4.0-11.0) 7.4 x10^3/uL (4.0-11.0) Red Blood Count 4.16 x10^6/uL (3.50-5.40) 3.85 x10^6/uL (3.50-5.40) Hemoglobin 12.5 g/dL (12.0-15.5) 11.6 g/dL (12.0-15.5) Hematocrit 36.7 % (36.0-47.0) 33.9 % (36.0-47.0) Mean Corpuscular Volume 88 fL (79-100) 88 fL (79-100) Mean Corpuscular Hemoglobin 30 pg (25-35) 30 pg (25-35) Mean Corpuscular Hemoglobin Concent 34 g/dL (31-37) 34 g/dL (31-37) Red Cell Distribution Width 14.8 % (11.5-14.5) 14.6 % (11.5-14.5) Platelet Count 356 x10^3/uL (140-400) 316 x10^3/uL (140-400) Neutrophils (%) (Auto) 40 % (31-73) 32 % (31-73) Lymphocytes (%) (Auto) 38 % (24-48) 46 % (24-48) Monocytes (%) (Auto) 13 % (0-9) 14 % (0-9) Eosinophils (%) (Auto) 8 % (0-3) 7 % (0-3) Basophils (%) (Auto) 1 % (0-3) 1 % (0-3) Neutrophils # (Auto) 3.1 x10^3uL (1.8-7.7) 2.3 x10^3uL (1.8-7.7) Lymphocytes # (Auto) 2.9 x10^3/uL (1.0-4.8) 3.4 x10^3/uL (1.0-4.8) Monocytes # (Auto) 1.0 x10^3/uL (0.0-1.1) 1.0 x10^3/uL (0.0-1.1) Eosinophils # (Auto) 0.6 x10^3/uL (0.0-0.7) 0.6 x10^3/uL (0.0-0.7) Basophils # (Auto) 0.1 x10^3/uL (0.0-0.2) 0.1 x10^3/uL (0.0-0.2) Sodium Level 132 mmol/L (136-145) 135 mmol/L (136-145) Potassium Level 5.1 mmol/L (3.5-5.1) 5.7 mmol/L (3.5-5.1) Chloride Level 103 mmol/L (98-107) 104 mmol/L (98-107) Carbon Dioxide Level 26 mmol/L (21-32) 24 mmol/L (21-32) Anion Gap 3 (6-14) 7 (6-14) Blood Urea Nitrogen 40 mg/dL (7-20) 44 mg/dL (7-20) Creatinine 2.0 mg/dL (0.6-1.0) 1.9 mg/dL (0.6-1.0) Estimated GFR (Cockcroft-Gault) 25.4 27.0 Glucose Level 83 mg/dL (70-99) 91 mg/dL (70-99) Calcium Level 9.3 mg/dL (8.5-10.1) 9.6 mg/dL (8.5-10.1) Laboratory Tests Test 11/08/16 07:10 White Blood Count 7.4 x10^3/uL (4.0-11.0) Red Blood Count 3.85 x10^6/uL (3.50-5.40) Hemoglobin 11.6 g/dL (12.0-15.5) Hematocrit 33.9 % (36.0-47.0) Mean Corpuscular Volume 88 fL (79-100) Mean Corpuscular Hemoglobin 30 pg (25-35) Mean Corpuscular Hemoglobin Concent 34 g/dL (31-37) Red Cell Distribution Width 14.6 % (11.5-14.5) Platelet Count 316 x10^3/uL (140-400) Neutrophils (%) (Auto) 32 % (31-73) Lymphocytes (%) (Auto) 46 % (24-48) Monocytes (%) (Auto) 14 % (0-9) Eosinophils (%) (Auto) 7 % (0-3) Basophils (%) (Auto) 1 % (0-3) Neutrophils # (Auto) 2.3 x10^3uL (1.8-7.7) Lymphocytes # (Auto) 3.4 x10^3/uL (1.0-4.8) Monocytes # (Auto) 1.0 x10^3/uL (0.0-1.1) Eosinophils # (Auto) 0.6 x10^3/uL (0.0-0.7) Basophils # (Auto) 0.1 x10^3/uL (0.0-0.2) Sodium Level 135 mmol/L (136-145) Potassium Level 5.7 mmol/L (3.5-5.1) Chloride Level 104 mmol/L (98-107) Carbon Dioxide Level 24 mmol/L (21-32) Anion Gap 7 (6-14) Blood Urea Nitrogen 44 mg/dL (7-20) Creatinine 1.9 mg/dL (0.6-1.0) Estimated GFR (Cockcroft-Gault) 27.0 Glucose Level 91 mg/dL (70-99) Calcium Level 9.6 mg/dL (8.5-10.1) Microbiology 11/01/16 Urine Culture - Final, Complete Medications Current Medications Aspirin (Belen Aspirin) 325 mg 1X ONCE PO Last administered on 11/01/16 14:45 ; Start 11/01/16 at 14:45; Stop 11/01/16 at 14:46; Status DC Sodium Chloride 1,000 ml @ 1,000 mls/hr 1X ONCE IV Last administered on 14:45; Start 11/01/16 at 14:45; Stop 11/01/16 at 15:44; Status DC Ondansetron HCl (Zofran) 4 mg 1X ONCE IV Last administered on 11/01/16 14:45; Start 11/01/16 at 14:45; Stop 11/01/16 at 14:46; Status DC Lorazepam (Ativan) 1 mg 1X ONCE IV Last administered on 11/01/16 14:45; Start 11/01/16 at 14:45; Stop 11/01/16 at 14:46; Status DC Fentanyl Citrate (Fentanyl 2ml Vial) 50 mcg PRN Q15MIN PRN IV PAIN GREATER THAN 3/10 Last administered on 11/01/16 18:00; Start 11/01/16 at 14:45; Stop 11/02 at 09:29; Status DC Multi-Ingredient Mouthwash/Gargle (Gi Cocktail Single Dose) 15 ml 1X ONCE SWSW Last administered on 11/01/16 14:45; Start 11/01/16 at 14:45; Stop 11/01/16 at 14:46; Status DC Ceftriaxone Sodium 50 ml @ 100 mls/hr 1X ONCE IV Last administered on 15:45; Start 11/01/16 at 15:45; Stop 11/01/16 at 16:14; Status DC Hydromorphone HCl (Dilaudid) 1 mg 1X ONCE IV Last administered on 11/01/16 15: 45; Start 11/01/16 at 15:45; Stop 11/01/16 at 15:46; Status DC Ondansetron HCl (Zofran) 4 mg PRN Q8HRS PRN IV NAUSEA/VOMITING; Start 11/01/16 at 17:00; Stop 11/02/16 at 16:59; Status DC Sodium Chloride 1,000 ml @ 100 mls/hr Q10H IV Last administered on 11/02/16 15 :42; Start 11/01/16 at 17:15; Stop 11/02/16 at 17:14; Status DC Acetaminophen (Tylenol) 650 mg PRN Q4HRS PRN PO FEVER Last administered on 18:00; Start 11/01/16 at 17:00; Stop 11/02/16 at 16:59; Status DC Acetaminophen/ Codeine Phosphate (Tylenol #3) 1 tab PRN Q6HRS PRN PO MILD PAIN ; Start 11/01/16 at 17:00 Alprazolam (Xanax) 0.5 mg BID PRN PO ANXIETY / AGITATION Last administered on 02:42; Start 11/01/16 at 17:00 Escitalopram Oxalate (Lexapro) 10 mg DAILY PO Last administered on 11/08/16 08 :54; Start 11/02/16 at 09:00 Hydromorphone HCl (Dilaudid) 0.5 mg PRN Q4HRS PRN PO SEVERE PAIN Last administered on 11/07/16 09:02; Start 11/01/16 at 17:00; Stop 11/07/16 at 10:07 ; Status DC Lisinopril (Prinivil) 10 mg DAILY PO Last administered on 11/07/16 09:03; Start 11/02/16 at 09:00 Metoclopramide HCl (Reglan) 10 mg QID PO Last administered on 11/03/16 12:10; Start 11/01/16 at 17:00; Stop 11/03/16 at 15:23; Status DC Pantoprazole Sodium (Protonix) 40 mg DAILYAC PO Last administered on 11/08/16 08:54; Start 11/02/16 at 07:30 Acetaminophen (Tylenol) 650 mg PRN Q6HRS PRN PO FEVER; Start 11/01/16 at 17:00 Ondansetron HCl (Zofran) 4 mg PRN Q6HRS PRN IV NAUSEA/VOMITING; Start 11/01/16 at 17:00 Ceftriaxone Sodium 1 gm/ Sodium Chloride 50 ml @ 100 mls/hr Q24H IV Last administered on 11/07/16 15:53; Start 11/02/16 at 16:00; Stop 11/07/16 at 18:00 ; Status DC Hydralazine HCl (Apresoline) 10 mg PRN Q4HRS PRN IVP ELEVATED BP, SEE COMMENTS ; Start 11/01/16 at 17:00 Tramadol HCl (Ultram) 100 mg PRN Q6HRS PRN PO MODERATE PAIN; Start 11/01/16 at 17:15 Lorazepam (Ativan) 2 mg PRN Q4HRS PRN IV ANXIETY / AGITATION Last administered on 11/02/16 08:09; Start 11/01/16 at 17:15; Stop 11/02/16 at 09:29; Status DC Lorazepam (Ativan) 1 mg PRN Q4HRS PRN IV ANXIETY / AGITATION Last administered on 11/08/16 12:40; Start 11/02/16 at 09:30 Hydromorphone HCl (Dilaudid) 0.4 mg PRN Q4HRS PRN IVP PAIN; Start 11/02/16 at 09 :30; Stop 11/03/16 at 10:50; Status DC Lidocaine HCl (Glydo (Lidocaine) Jelly) 1 veronica 1X ONCE MM ; Start 11/03/16 at 11: 00; Stop 11/03/16 at 11:01; Status DC Lidocaine HCl (Viscous Lidocaine) 15 ml PRN Q4HRS PRN SWSW MOUTH PAIN; Start at 11:00 Sucralfate (Carafate) 1 gm QIDACHS PO Last administered on 11/08/16 12:41; Start 11/03/16 at 11:30 Potassium Chloride 20 meq/ Potassium Chloride/Sodium Chloride 1,010 ml @ 75 mls /hr [id number] IV ; Start 11/03/16 at 11:15; Status Cancel Potassium Chloride/Sodium Chloride 1,000 ml @ 75 mls/hr [id number] IV Last administered on 11/08/16 06:34; Start 11/03/16 at 11:15; Stop 11/08/16 at 10:55 ; Status DC Metoclopramide HCl (Reglan) 5 mg QID PO Last administered on 11/07/16 09:02; Start 11/03/16 at 17:00; Stop 11/07/16 at 09:41; Status DC Loperamide HCl (Imodium) 2 mg PRN Q15MIN PRN PO DIARRHEA Last administered on 13:57; Start 11/05/16 at 14:00 Vancomycin HCl 125 mg [id number] PO Last administered on 11/08/16 12:42; Start at 17:00 Metoclopramide HCl (Reglan) 5 mg QIDACHS PO Last administered on 11/08/16 12: 41; Start 11/07/16 at 11:30 Hydromorphone HCl (Dilaudid) 1 mg PRN Q4HRS PRN PO PAIN Last administered on 12:40; Start 11/07/16 at 11:00 Cefpodoxime Proxetil (Vantin) 200 mg BID PO Last administered on 11/08/16 08: 52; Start 11/07/16 at 21:00 Sodium Chloride 1,000 ml @ 75 mls/hr [id number] IV Last administered on 12:42; Start 11/08/16 at 11:00 Active Scripts Active Bactrim Ds Tablet (Sulfamethoxazole/Trimethoprim) 1 Each Tablet 1 Tab PO BID Tylenol With Codeine #3 Tablet (Acetaminophen/Codeine Phosphate) 1 Each Tablet 1 Tab PO PRN Q6HRS PRN Reglan (Metoclopramide Hcl) 10 Mg Tablet 10 Ml PO QID Dilaudid (Hydromorphone Hcl) 2 Mg Tablet 1 Mg PO PRN Q4HRS PRN Xanax (Alprazolam) 0.5 Mg Tablet 1 Tab PO BID PRN Nexium 24Hr (Esomeprazole Magnesium) 20 Mg Capsule.dr 20 Mg PO DAILY Escitalopram Oxalate 10 Mg Tablet 1 Tab PO DAILY Reported Lisinopril 10 Mg Tablet 1 Tab PO DAILY Vitals/I & O Vital Sign - Last 24 Hours 11/07/16 11/07/16 11/07/16 11/07/16 15:00 16:54 17:58 19:15 Temp 98.7 99.4 98.7 99.4 Pulse 88 81 Resp 18 16 16 18 B/P (MAP) 131/86 (101) 113/74 (87) Pulse Ox 96 95 O2 Delivery Room Air Room Air Room Air 11/07/16 11/07/16 11/08/16 11/08/16 20:00 23:05 03:05 07:08 Temp 99.4 99.4 Pulse 83 74 70 Resp 18 18 20 B/P (MAP) 103/70 (81) 116/69 (85) 97/64 (75) Pulse Ox 94 95 94 O2 Delivery Room Air Room Air Room Air Room Air 11/08/16 11/08/16 11/08/16 11/08/16 08:00 08:55 08:56 10:45 Pulse 70 B/P (MAP) 97/64 Pulse Ox 94 94 O2 Delivery Room Air Room Air Room Air 11/08/16 11/08/16 11:00 12:40 Temp 97.6 97.6 Pulse 78 Resp 19 B/P (MAP) 110/73 (85) Pulse Ox 95 95 O2 Delivery Room Air Room Air Intake and Output 11/07/16 11/07/16 11/08/16 15:00 23:00 07:00 Intake Total 500 ml Output Total 1000 ml 400 ml Balance -1000 ml 500 ml -400 ml Problem List Problems Medical Problems: (1) Acute renal failure Status: Acute (2) Gastroparesis Status: Acute (3) Leukocytosis Status: Acute (4) Pyelonephritis Status: Acute (5) Vomiting and diarrhea Status: Acute Assessment Reflux/esophagitis/gastroparesis. Recurrent C.diff. Plan of Care: Continue current Tx, Mgmt Plan of Care Note If not getting GI cocktail, will start prn. PREET AMEZQUITA MD November 08, 2016 12:53
[2016-11-08] MEDS ORDERED: LIDO:MAALOX:DONNATAL 1:1:1 15 ML SINGLE DOSE SWSW PRN (13:00)
[2016-11-08 15:00] VITALS: BP 118/74
[2016-11-08 19:00] VITALS: BP 116/72
[2016-11-08 23:00] VITALS: BP 124/75
[2016-11-09] MEDS: IV NORMAL SALINE 1000ML BAG 1,000 ML IV SCH (03:13)
[2016-11-09 03:40] VITALS: BP 119/73
[2016-11-09] MEDS: HYDROmorphone 2 MG TABLET PO PRN ×2 (04:17→08:42)
[2016-11-09 04:36] LABS: BASO # 0.1 x10^3/uL (0.0-0.2); BASO % 1 % (0-3); EOS % 6 % (0-3); HEMATOCRIT 32.6 % (36.0-47.0); LYMPH # 3.3 x10^3/uL (1.0-4.8); LYMPH % 44 % (24-48); MEAN CORPUSCULAR HEMOGLOBIN 30 pg (25-35); MEAN CORPUSCULAR HGB CONC 34 g/dL (31-37); MEAN CORPUSCULAR VOLUME 88 fL (79-100); MONO % 14 % (0-9); NEUT % 35 % (31-73); PLATELET COUNT 302 x10^3/uL (140-400); RED BLOOD COUNT 3.69 x10^6/uL (3.50-5.40); RED CELL DISTRIBUTION WIDTH 14.6 % (11.5-14.5); WHITE BLOOD COUNT 7.4 x10^3/uL (4.0-11.0)
[2016-11-09 04:56] LABS: CALCIUM 9.2 mg/dL (8.5-10.1); CREATININE 1.9 mg/dL (0.6-1.0); POTASSIUM 5.2 mmol/L (3.5-5.1)
[2016-11-09 07:25] VITALS: BP 124/81
[2016-11-09] MEDS: SUCRALFATE 1 GM TABLET. PO SCH (07:30)
[2016-11-09 08:41] VITALS: BP 124/81
[2016-11-09] MEDS: LISINOPRIL 10 MG TABLET PO SCH (08:41)
[2016-11-09] MEDS: ALPRAZolam 0.5 MG TABLET PO PRN (08:42)
[2016-11-09] MEDS: CEFPODOXIME PROXETIL 100 MG TABLET. PO SCH (08:42)
[2016-11-09] MEDS: PANTOPRAZOLE 40 MG TABLET.DR. PO SCH (08:43)
[2016-11-09] MEDS: METOCLOPRAMIDE HCL 10 MG/10 ML SOLUTION. PO SCH (08:43)
[2016-11-09] MEDS: ESCITALOPRAM 10 MG TABLET. PO SCH (08:43)
[2016-11-09] MEDS: VANCOMYCIN 125 MG/2.5 ML ORAL SOLUTION. PO SCH (08:45)
--- NOTE | 2016-11-09 11:29 | PDOC ---
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 Patient continues to have loose stools. Prescriptions for Percocet and Xanax were written and given to nursing staff. Patient understands plan of action to continue antibiotics for C.Diff. and pyelonephritis. Discussed with patient hoping to D/C. Vitals Vitals Vital Signs Date Time Temp Pulse Resp B/P (MAP) Pulse Ox O2 Delivery O2 Flow Rate FiO2 11/09/16 08:42 100 Room Air 11/09/16 08:41 63 124/81 11/09/16 07:25 97.5 18 97.5 Physical Exam General: Alert, Cooperative Heart: Regular rate, Normal S1, Normal S2 Lungs: Clear Abdomen: Normal bowel sounds, Soft Extremities: No clubbing, No cyanosis Skin: No rashes, No breakdown Labs LABS Laboratory Tests Test 11/09/16 04:00 White Blood Count 7.4 x10^3/uL (4.0-11.0) Red Blood Count 3.69 x10^6/uL (3.50-5.40) Hemoglobin 11.0 g/dL (12.0-15.5) Hematocrit 32.6 % (36.0-47.0) Mean Corpuscular Volume 88 fL (79-100) Mean Corpuscular Hemoglobin 30 pg (25-35) Mean Corpuscular Hemoglobin Concent 34 g/dL (31-37) Red Cell Distribution Width 14.6 % (11.5-14.5) Platelet Count 302 x10^3/uL (140-400) Neutrophils (%) (Auto) 35 % (31-73) Lymphocytes (%) (Auto) 44 % (24-48) Monocytes (%) (Auto) 14 % (0-9) Eosinophils (%) (Auto) 6 % (0-3) Basophils (%) (Auto) 1 % (0-3) Neutrophils # (Auto) 2.6 x10^3uL (1.8-7.7) Lymphocytes # (Auto) 3.3 x10^3/uL (1.0-4.8) Monocytes # (Auto) 1.0 x10^3/uL (0.0-1.1) Eosinophils # (Auto) 0.5 x10^3/uL (0.0-0.7) Basophils # (Auto) 0.1 x10^3/uL (0.0-0.2) Sodium Level 135 mmol/L (136-145) Potassium Level 5.2 mmol/L (3.5-5.1) Chloride Level 105 mmol/L (98-107) Carbon Dioxide Level 25 mmol/L (21-32) Anion Gap 5 (6-14) Blood Urea Nitrogen 45 mg/dL (7-20) Creatinine 1.9 mg/dL (0.6-1.0) Estimated GFR (Cockcroft-Gault) 27.0 Glucose Level 95 mg/dL (70-99) Calcium Level 9.2 mg/dL (8.5-10.1) Review of Systems Review of Systems No HOLLAND/blurry vision No rashes No fever/chills No SOB No chest pain Assessment and Plan Assessmemt and Plan Problems Medical Problems: (1) Acute renal failure Status: Acute (2) Gastroparesis Status: Acute (3) Leukocytosis Status: Acute (4) Pyelonephritis Status: Acute (5) Vomiting and diarrhea Status: Acute Chronic Diarrhea with h/o cdiff colitis Complicated UTI UTI with h/o chronic UTI Chronic abd pain Chronic back pain 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 -Gave prescription Percocet #20 tabs 5 mg q 6 hr prn pain to nursing staff. -Gave prescription Xanax #20 tabs 5 mg q 6 hrs prn. -Continue PT/OT -Continue to consult GI. -D/C patient if specialities agree. Problems: Comment Review of Relevant I have reviewed the following items blade (where applicable) has been applied. Labs Laboratory Tests Test 11/08/16 07:10 11/09/16 04:00 White Blood Count 7.4 x10^3/uL (4.0-11.0) 7.4 x10^3/uL (4.0-11.0) Red Blood Count 3.85 x10^6/uL (3.50-5.40) 3.69 x10^6/uL (3.50-5.40) Hemoglobin 11.6 g/dL (12.0-15.5) 11.0 g/dL (12.0-15.5) Hematocrit 33.9 % (36.0-47.0) 32.6 % (36.0-47.0) Mean Corpuscular Volume 88 fL (79-100) 88 fL (79-100) Mean Corpuscular Hemoglobin 30 pg (25-35) 30 pg (25-35) Mean Corpuscular Hemoglobin Concent 34 g/dL (31-37) 34 g/dL (31-37) Red Cell Distribution Width 14.6 % (11.5-14.5) 14.6 % (11.5-14.5) Platelet Count 316 x10^3/uL (140-400) 302 x10^3/uL (140-400) Neutrophils (%) (Auto) 32 % (31-73) 35 % (31-73) Lymphocytes (%) (Auto) 46 % (24-48) 44 % (24-48) Monocytes (%) (Auto) 14 % (0-9) 14 % (0-9) Eosinophils (%) (Auto) 7 % (0-3) 6 % (0-3) Basophils (%) (Auto) 1 % (0-3) 1 % (0-3) Neutrophils # (Auto) 2.3 x10^3uL (1.8-7.7) 2.6 x10^3uL (1.8-7.7) Lymphocytes # (Auto) 3.4 x10^3/uL (1.0-4.8) 3.3 x10^3/uL (1.0-4.8) Monocytes # (Auto) 1.0 x10^3/uL (0.0-1.1) 1.0 x10^3/uL (0.0-1.1) Eosinophils # (Auto) 0.6 x10^3/uL (0.0-0.7) 0.5 x10^3/uL (0.0-0.7) Basophils # (Auto) 0.1 x10^3/uL (0.0-0.2) 0.1 x10^3/uL (0.0-0.2) Sodium Level 135 mmol/L (136-145) 135 mmol/L (136-145) Potassium Level 5.7 mmol/L (3.5-5.1) 5.2 mmol/L (3.5-5.1) Chloride Level 104 mmol/L (98-107) 105 mmol/L (98-107) Carbon Dioxide Level 24 mmol/L (21-32) 25 mmol/L (21-32) Anion Gap 7 (6-14) 5 (6-14) Blood Urea Nitrogen 44 mg/dL (7-20) 45 mg/dL (7-20) Creatinine 1.9 mg/dL (0.6-1.0) 1.9 mg/dL (0.6-1.0) Estimated GFR (Cockcroft-Gault) 27.0 27.0 Glucose Level 91 mg/dL (70-99) 95 mg/dL (70-99) Calcium Level 9.6 mg/dL (8.5-10.1) 9.2 mg/dL (8.5-10.1) Laboratory Tests Test 11/09/16 04:00 White Blood Count 7.4 x10^3/uL (4.0-11.0) Red Blood Count 3.69 x10^6/uL (3.50-5.40) Hemoglobin 11.0 g/dL (12.0-15.5) Hematocrit 32.6 % (36.0-47.0) Mean Corpuscular Volume 88 fL (79-100) Mean Corpuscular Hemoglobin 30 pg (25-35) Mean Corpuscular Hemoglobin Concent 34 g/dL (31-37) Red Cell Distribution Width 14.6 % (11.5-14.5) Platelet Count 302 x10^3/uL (140-400) Neutrophils (%) (Auto) 35 % (31-73) Lymphocytes (%) (Auto) 44 % (24-48) Monocytes (%) (Auto) 14 % (0-9) Eosinophils (%) (Auto) 6 % (0-3) Basophils (%) (Auto) 1 % (0-3) Neutrophils # (Auto) 2.6 x10^3uL (1.8-7.7) Lymphocytes # (Auto) 3.3 x10^3/uL (1.0-4.8) Monocytes # (Auto) 1.0 x10^3/uL (0.0-1.1) Eosinophils # (Auto) 0.5 x10^3/uL (0.0-0.7) Basophils # (Auto) 0.1 x10^3/uL (0.0-0.2) Sodium Level 135 mmol/L (136-145) Potassium Level 5.2 mmol/L (3.5-5.1) Chloride Level 105 mmol/L (98-107) Carbon Dioxide Level 25 mmol/L (21-32) Anion Gap 5 (6-14) Blood Urea Nitrogen 45 mg/dL (7-20) Creatinine 1.9 mg/dL (0.6-1.0) Estimated GFR (Cockcroft-Gault) 27.0 Glucose Level 95 mg/dL (70-99) Calcium Level 9.2 mg/dL (8.5-10.1) Microbiology 11/01/16 Urine Culture - Final, Complete Medications Current Medications Aspirin (DerbyJackpot Aspirin) 325 mg 1X ONCE PO Last administered on 11/01/16 14:45 ; Start 11/01/16 at 14:45; Stop 11/01/16 at 14:46; Status DC Sodium Chloride 1,000 ml @ 1,000 mls/hr 1X ONCE IV Last administered on 14:45; Start 11/01/16 at 14:45; Stop 11/01/16 at 15:44; Status DC Ondansetron HCl (Zofran) 4 mg 1X ONCE IV Last administered on 11/01/16 14:45; Start 11/01/16 at 14:45; Stop 11/01/16 at 14:46; Status DC Lorazepam (Ativan) 1 mg 1X ONCE IV Last administered on 11/01/16 14:45; Start 11/01/16 at 14:45; Stop 11/01/16 at 14:46; Status DC Fentanyl Citrate (Fentanyl 2ml Vial) 50 mcg PRN Q15MIN PRN IV PAIN GREATER THAN 3/10 Last administered on 11/01/16 18:00; Start 11/01/16 at 14:45; Stop 11/02 at 09:29; Status DC Multi-Ingredient Mouthwash/Gargle (Gi Cocktail Single Dose) 15 ml 1X ONCE SWSW Last administered on 11/01/16 14:45; Start 11/01/16 at 14:45; Stop 11/01/16 at 14:46; Status DC Ceftriaxone Sodium 50 ml @ 100 mls/hr 1X ONCE IV Last administered on 15:45; Start 11/01/16 at 15:45; Stop 11/01/16 at 16:14; Status DC Hydromorphone HCl (Dilaudid) 1 mg 1X ONCE IV Last administered on 11/01/16 15: 45; Start 11/01/16 at 15:45; Stop 11/01/16 at 15:46; Status DC Ondansetron HCl (Zofran) 4 mg PRN Q8HRS PRN IV NAUSEA/VOMITING; Start 11/01/16 at 17:00; Stop 11/02/16 at 16:59; Status DC Sodium Chloride 1,000 ml @ 100 mls/hr Q10H IV Last administered on 11/02/16 15 :42; Start 11/01/16 at 17:15; Stop 11/02/16 at 17:14; Status DC Acetaminophen (Tylenol) 650 mg PRN Q4HRS PRN PO FEVER Last administered on 18:00; Start 11/01/16 at 17:00; Stop 11/02/16 at 16:59; Status DC Acetaminophen/ Codeine Phosphate (Tylenol #3) 1 tab PRN Q6HRS PRN PO MILD PAIN ; Start 11/01/16 at 17:00 Alprazolam (Xanax) 0.5 mg BID PRN PO ANXIETY / AGITATION Last administered on 08:42; Start 11/01/16 at 17:00 Escitalopram Oxalate (Lexapro) 10 mg DAILY PO Last administered on 11/09/16 08 :43; Start 11/02/16 at 09:00 Hydromorphone HCl (Dilaudid) 0.5 mg PRN Q4HRS PRN PO SEVERE PAIN Last administered on 11/07/16 09:02; Start 11/01/16 at 17:00; Stop 11/07/16 at 10:07 ; Status DC Lisinopril (Prinivil) 10 mg DAILY PO Last administered on 11/09/16 08:41; Start 11/02/16 at 09:00 Metoclopramide HCl (Reglan) 10 mg QID PO Last administered on 11/03/16 12:10; Start 11/01/16 at 17:00; Stop 11/03/16 at 15:23; Status DC Pantoprazole Sodium (Protonix) 40 mg DAILYAC PO Last administered on 11/09/16 08:43; Start 11/02/16 at 07:30 Acetaminophen (Tylenol) 650 mg PRN Q6HRS PRN PO FEVER; Start 11/01/16 at 17:00 Ondansetron HCl (Zofran) 4 mg PRN Q6HRS PRN IV NAUSEA/VOMITING; Start 11/01/16 at 17:00 Ceftriaxone Sodium 1 gm/ Sodium Chloride 50 ml @ 100 mls/hr Q24H IV Last administered on 11/07/16 15:53; Start 11/02/16 at 16:00; Stop 11/07/16 at 18:00 ; Status DC Hydralazine HCl (Apresoline) 10 mg PRN Q4HRS PRN IVP ELEVATED BP, SEE COMMENTS ; Start 11/01/16 at 17:00 Tramadol HCl (Ultram) 100 mg PRN Q6HRS PRN PO MODERATE PAIN; Start 11/01/16 at 17:15 Lorazepam (Ativan) 2 mg PRN Q4HRS PRN IV ANXIETY / AGITATION Last administered on 11/02/16 08:09; Start 11/01/16 at 17:15; Stop 11/02/16 at 09:29; Status DC Lorazepam (Ativan) 1 mg PRN Q4HRS PRN IV ANXIETY / AGITATION Last administered on 11/09/16 04:17; Start 11/02/16 at 09:30 Hydromorphone HCl (Dilaudid) 0.4 mg PRN Q4HRS PRN IVP PAIN; Start 11/02/16 at 09 :30; Stop 11/03/16 at 10:50; Status DC Lidocaine HCl (Glydo (Lidocaine) Jelly) 1 veronica 1X ONCE MM ; Start 11/03/16 at 11: 00; Stop 11/03/16 at 11:01; Status DC Lidocaine HCl (Viscous Lidocaine) 15 ml PRN Q4HRS PRN SWSW MOUTH PAIN; Start at 11:00 Sucralfate (Carafate) 1 gm QIDACHS PO Last administered on 11/08/16 20:40; Start 11/03/16 at 11:30 Potassium Chloride 20 meq/ Potassium Chloride/Sodium Chloride 1,010 ml @ 75 mls /hr [id number] IV ; Start 11/03/16 at 11:15; Status Cancel Potassium Chloride/Sodium Chloride 1,000 ml @ 75 mls/hr [id number] IV Last administered on 11/08/16 06:34; Start 11/03/16 at 11:15; Stop 11/08/16 at 10:55 ; Status DC Metoclopramide HCl (Reglan) 5 mg QID PO Last administered on 11/07/16 09:02; Start 11/03/16 at 17:00; Stop 11/07/16 at 09:41; Status DC Loperamide HCl (Imodium) 2 mg PRN Q15MIN PRN PO DIARRHEA Last administered on 13:57; Start 11/05/16 at 14:00 Vancomycin HCl 125 mg [id number] PO Last administered on 11/09/16 08:45; Start at 17:00 Metoclopramide HCl (Reglan) 5 mg QIDACHS PO Last administered on 11/09/16 08: 43; Start 11/07/16 at 11:30 Hydromorphone HCl (Dilaudid) 1 mg PRN Q4HRS PRN PO PAIN Last administered on 08:42; Start 11/07/16 at 11:00 Cefpodoxime Proxetil (Vantin) 200 mg BID PO Last administered on 11/09/16 08: 42; Start 11/07/16 at 21:00 Sodium Chloride 1,000 ml @ 75 mls/hr [id number] IV Last administered on 03:13; Start 11/08/16 at 11:00 Multi-Ingredient Mouthwash/Gargle (Gi Cocktail Single Dose) 15 ml PRN Q2HRS PRN SWSW ODYNOPHAGIA Last administered on 11/08/16t 16:33; Start 11/08/16 at 13: 00 Active Scripts Active Bactrim Ds Tablet (Sulfamethoxazole/Trimethoprim) 1 Each Tablet 1 Tab PO BID Tylenol With Codeine #3 Tablet (Acetaminophen/Codeine Phosphate) 1 Each Tablet 1 Tab PO PRN Q6HRS PRN Reglan (Metoclopramide Hcl) 10 Mg Tablet 10 Ml PO QID Dilaudid (Hydromorphone Hcl) 2 Mg Tablet 1 Mg PO PRN Q4HRS PRN Xanax (Alprazolam) 0.5 Mg Tablet 1 Tab PO BID PRN Nexium 24Hr (Esomeprazole Magnesium) 20 Mg Capsule.dr 20 Mg PO DAILY Escitalopram Oxalate 10 Mg Tablet 1 Tab PO DAILY Reported Lisinopril 10 Mg Tablet 1 Tab PO DAILY Vitals/I & O Vital Sign - Last 24 Hours 11/08/16 11/08/16 11/08/16 11/08/16 12:40 15:00 16:32 19:00 Temp 98.0 98.0 98.0 98.0 Pulse 72 75 Resp 19 18 B/P (MAP) 118/74 (89) 116/72 (87) Pulse Ox 95 92 92 96 O2 Delivery Room Air Room Air Room Air 11/08/16 11/08/16 11/08/16 11/08/16 19:55 20:48 21:48 23:00 Temp 99.0 99.0 Pulse 83 Resp 20 18 B/P (MAP) 124/75 (91) Pulse Ox 96 98 O2 Delivery Room Air Room Air Room Air 11/09/16 11/09/16 11/09/16 11/09/16 03:40 04:17 05:17 07:25 Temp 98.1 97.5 98.1 97.5 Pulse 65 63 Resp 20 18 18 18 B/P (MAP) 119/73 (88) 124/81 (95) Pulse Ox 98 96 96 100 O2 Delivery Room Air Room Air Room Air 11/09/16 11/09/16 11/09/16 08:00 08:41 08:42 Pulse 63 B/P (MAP) 124/81 Pulse Ox 100 O2 Delivery Room Air Room Air Intake and Output 5/11/17 5/11/17 5/12/17 15:00 23:00 07:00 Intake Total 1350 ml 250 ml Output Total 825 ml 1400 ml Balance 525 ml -1150 ml ZA MAHONEY III DO November 09, 2016 11:29
--- NOTE | 2016-11-09 11:49 | PDOC ---
Renal-Progress Notes Subjective Notes Notes SLEEPING History of Present Illness Hx of present illness BETTER Vitals Vitals Vital Signs Date Time Temp Pulse Resp B/P (MAP) Pulse Ox O2 Delivery O2 Flow Rate FiO2 11/09/16 08:42 100 Room Air 11/09/16 08:41 63 124/81 11/09/16 07:25 97.5 18 97.5 Weight Weight [ ] I.O. Intake and Output Intake and Output 11/09/16 07:00 Intake Total 1600 ml Output Total 2225 ml Balance -625 ml Intake Oral 1600 ml Output Urine Total 2225 ml # Bowel Movements 2 Labs Labs Laboratory Tests Test 11/09/16 04:00 White Blood Count 7.4 x10^3/uL (4.0-11.0) Red Blood Count 3.69 x10^6/uL (3.50-5.40) Hemoglobin 11.0 g/dL (12.0-15.5) Hematocrit 32.6 % (36.0-47.0) Mean Corpuscular Volume 88 fL (79-100) Mean Corpuscular Hemoglobin 30 pg (25-35) Mean Corpuscular Hemoglobin Concent 34 g/dL (31-37) Red Cell Distribution Width 14.6 % (11.5-14.5) Platelet Count 302 x10^3/uL (140-400) Neutrophils (%) (Auto) 35 % (31-73) Lymphocytes (%) (Auto) 44 % (24-48) Monocytes (%) (Auto) 14 % (0-9) Eosinophils (%) (Auto) 6 % (0-3) Basophils (%) (Auto) 1 % (0-3) Neutrophils # (Auto) 2.6 x10^3uL (1.8-7.7) Lymphocytes # (Auto) 3.3 x10^3/uL (1.0-4.8) Monocytes # (Auto) 1.0 x10^3/uL (0.0-1.1) Eosinophils # (Auto) 0.5 x10^3/uL (0.0-0.7) Basophils # (Auto) 0.1 x10^3/uL (0.0-0.2) Sodium Level 135 mmol/L (136-145) Potassium Level 5.2 mmol/L (3.5-5.1) Chloride Level 105 mmol/L (98-107) Carbon Dioxide Level 25 mmol/L (21-32) Anion Gap 5 (6-14) Blood Urea Nitrogen 45 mg/dL (7-20) Creatinine 1.9 mg/dL (0.6-1.0) Estimated GFR (Cockcroft-Gault) 27.0 Glucose Level 95 mg/dL (70-99) Calcium Level 9.2 mg/dL (8.5-10.1) Micro Micro Microbiology 11/01/16 Urine Culture - Final, Complete Review of Systems Constitutional: yes: alert Ears/Nose/Throat: Yes: no symptom reported Eyes: Yes: no symptom reported Genitourinary: Yes: no symptom reported Skin: Yes no symptom reported Psychiatric/Neurological: Yes: no symptom reported Physical Exam General Appearance: no apparent distress Skin: warm Respiratory: bilateral CTA Heart: S1S2, RRR Abdomen: soft, bowel sounds present Genitourinary: bladder flat Extremities: pulses present Neurology: alert Assessment Assessment IMP UTI URINARY RETENTION CKD STAGE 4 WITH CR OF 2.0 LEUCOCYTOSIS-BETTER HYPERKALEMIA-BETTER PLAN CONT IVF'S CONT ANTIBIOTICS CONT ESVIN-I ENC COMPLIANCE WITH SELF CATH LABS IN AM DESIREE HERNANDEZ MD November 09, 2016 11:49
== END 2016-11-09 11:15 | disposition home or self-care (01) | DRG 371 ==
LOC: ER 14:03 → 6 SOUTH 16:37
PROVIDERS: ADMIT Internal Medicine; ATTEND Internal Medicine
DX: A04.7 Enterocolitis due to Clostridium difficile (principal); N17.0 Acute kidney failure with tubular necrosis; R65.10 Systemic inflammatory response syndrome (SIRS) of non-infectious origin without acute organ dysfunction; I42.9 Cardiomyopathy, unspecified; N18.4 Chronic kidney disease, stage 4 (severe); N12 Tubulo-interstitial nephritis, not specified as acute or chronic; K31.84 Gastroparesis; F10.20 Alcohol dependence, uncomplicated; E86.0 Dehydration; E87.5 Hyperkalemia; F32.9 Major depressive disorder, single episode, unspecified; G89.29 Other chronic pain; I12.9 Hypertensive chronic kidney disease with stage 1 through stage 4 chronic kidney disease, or unspecified chronic kidney disease; K21.0 Gastro-esophageal reflux disease with esophagitis; Z81.8 Family history of other mental and behavioral disorders; Z82.3 Family history of stroke; Z82.49 Family history of ischemic heart disease and other diseases of the circulatory system; Z87.440 Personal history of urinary (tract) infections; Z87.11 Personal history of peptic ulcer disease; Z96.652 Presence of left artificial knee joint; M19.90 Unspecified osteoarthritis, unspecified site; Z98.51 Tubal ligation status
CPT/HCPCS: 36415; 71010; 76770; 80048; 80076; 81001; 82728; 83540; 83550; 83690; 83880; 84484; 85027; 85045; 87086; 87324; 93005; 96361; 96374; 96375; J0690; J0696; J1170; J2060; J2405; J3010; J7030; J8597; 99285-25

== ENCOUNTER 2016-11-12 21:25 | Inpatient (IN) | payer MEDICARE, MEDICAID ==
[~2016-11-12] VITALS: Ht 162.6 cm; Wt 65.8 kg
[2016-11-12 23:16] LABS: BASO # 0.1 x10^3/uL (0.0-0.2); BASO % 1 % (0-3); EOS % 5 % (0-3); HEMATOCRIT 33.5 % (36.0-47.0); HEMOGLOBIN 11.4 g/dL (12.0-15.5); LYMPH # 3.4 x10^3/uL (1.0-4.8); LYMPH % 33 % (24-48); MEAN CORPUSCULAR HEMOGLOBIN 30 pg (25-35); MEAN CORPUSCULAR HGB CONC 34 g/dL (31-37); MEAN CORPUSCULAR VOLUME 88 fL (79-100); MONO % 13 % (0-9); NEUT % 48 % (31-73); PLATELET COUNT 348 x10^3/uL (140-400); RED BLOOD COUNT 3.83 x10^6/uL (3.50-5.40); RED CELL DISTRIBUTION WIDTH 14.3 % (11.5-14.5); WHITE BLOOD COUNT 10.2 x10^3/uL (4.0-11.0)
--- NOTE | 2016-11-12 23:27 | ED.ADGEN ---
Past Medical History Past Medical History: Alcoholism, Anxiety, Arthritis, Hypertension, Other Additional Past Medical Histor: c diff, chronic n/v/d & abdominal pain, gastritis, renal insufficiency Past Surgical History: Knee Replacement, Other Additional Past Surgical Histo: back and foot surger, LEFT KNEE REPLACEMENT X2 Alcohol Use: Occasionally Drug Use: Opiates Adult General Chief Complaint Chief Complaint: DIARRHEA HPI HPI Patient is a 61 year oldfemale with multiple coronary disease and recent hospital admission for pyelonephritis, chronic C. difficile, exacerbation of reflux disease, and chronic abdominal pain and gastroparesis who presents with continued abdominal pain since discharge from hospital 3 days ago. Patient reports nausea, denies vomiting. She reports continued diarrhea and feelings of generalized weakness and fatigue and dizziness. She does not have fever chills or sweats. She denies flank pain or dysuria.She denies any new symptoms or complaints. Patient is not currently on antibiotics. Review of Systems Review of Systems ROS as per HPI Current Medications Current Medications Current Medications Medications (Trade) Dose Ordered Sig/Taz Start Time Stop Time Status Last Admin Dose Admin Haloperidol Lactate (Haldol) 1.25 mg 1X ONCE 11/12/16 23:45 11/12/16 23:46 UNV Sodium Chloride 1,000 ml @ 1,000 mls/hr 1X ONCE 11/12/16 23:45 11/13/16 00:44 UNV Allergies Allergies Allergies Coded Allergies Type Severity Reaction Last Updated Verified levofloxacin Allergy Intermediate 08/16/16 Yes morphine Allergy Intermediate tolerates Dilaudid 07/26/16 Yes I S O L A T I O N *CONTACT* Allergy Unknown 07/26/16 Yes diphenhydramine HCl Adverse Reaction Intermediate "Jittery on the inside" 07/26 Yes Physical Exam Physical Exam Constitutional: Well developed, well nourished, no acute distress, non-toxic appearance. HENT: Normocephalic, atraumatic, bilateral external ears normal, oropharynx moist, no oral exudates, nose normal. Eyes: PERRLA, EOMI, conjunctiva normal, no discharge. Neck: Normal range of motion, no tenderness, supple, no stridor. Cardiovascular:Heart rate regular rhythm, no murmur Lungs & Thorax: Bilateral breath sounds clear to auscultation. Abdomen: Bowel sounds normal, soft, epigastric pain, tenderness. Skin: Warm, dry, no erythema, no rash. Back: No tenderness, no CVA TTP Extremities: No tenderness, no cyanosis, no clubbing, ROM intact, no edema. Neurologic: Alert and oriented X 3, normal motor function, normal sensory function, no focal deficits noted. Psychologic: Affect, anxious, tearful. Current Patient Data Vital Signs Vital Signs Date Time Temp Pulse Resp B/P (MAP) Pulse Ox O2 Delivery O2 Flow Rate FiO2 11/12/16 22:33 98.1 94 18 128/84 (99) 97 Room Air 98.1 Lab Values Laboratory Tests Test 11/12/16 23:10 White Blood Count 10.2 x10^3/uL (4.0-11.0) Red Blood Count 3.83 x10^6/uL (3.50-5.40) Hemoglobin 11.4 g/dL (12.0-15.5) L Hematocrit 33.5 % (36.0-47.0) L Mean Corpuscular Volume 88 fL (79-100) Mean Corpuscular Hemoglobin 30 pg (25-35) Mean Corpuscular Hemoglobin Concent 34 g/dL (31-37) Red Cell Distribution Width 14.3 % (11.5-14.5) Platelet Count 348 x10^3/uL (140-400) Neutrophils (%) (Auto) 48 % (31-73) Lymphocytes (%) (Auto) 33 % (24-48) Monocytes (%) (Auto) 13 % (0-9) H Eosinophils (%) (Auto) 5 % (0-3) H Basophils (%) (Auto) 1 % (0-3) Neutrophils # (Auto) 4.8 x10^3uL (1.8-7.7) Lymphocytes # (Auto) 3.4 x10^3/uL (1.0-4.8) Monocytes # (Auto) 1.3 x10^3/uL (0.0-1.1) H Eosinophils # (Auto) 0.5 x10^3/uL (0.0-0.7) Basophils # (Auto) 0.1 x10^3/uL (0.0-0.2) Laboratory Tests 11/12/16 23:10 EKG EKG [] Radiology/Procedures Radiology/Procedures [] Course & Med Decision Making Course & Med Decision Making Pertinent Labs and Imaging studies reviewed. (See chart for details) [This is an unfortunate 61-year-old female suffers from multiple chronic abdominal complaints. On my evaluation today, the patient's abdomen soft, nonsurgical. She is afebrile with stable vital signs with a normal white blood cell count.she states she is continued of chronic diarrhea and has had poor oral intake. current creatinine is 2.9, which is elevated approximately 50% over mostyou during hospitalization. Will admit to the hospital service for further evaluation and treatment. IV fluids started in the emergency department. Dragon Disclaimer Dragon Disclaimer This electronic medical record was generated, in whole or in part, using a voice recognition dictation system. GABRIELA ATKINSON DO November 12, 2016 23:27
[2016-11-12] MEDS ORDERED: IV DEXTROSE 5 %-0.45 % NACL 1,000 ML IV ONE (23:45)
[2016-11-12] MEDS ORDERED: ONDANSETRON PF 4 MG/2 ML VIAL. IV PRN (23:45)
[2016-11-12] MEDS ORDERED: fentaNYL PF VIAL 100 MCG/2 ML VIAL IV PRN (23:45)
[2016-11-13] MEDS ORDERED: HALOPERIDOL LACTATE 5 MG/ML VIAL. IVP ONE
[2016-11-13] MEDS ORDERED: HYDROcodone/APAP 5/325MG 1 TAB TABLET ONE (00:29)
[2016-11-13] MEDS ORDERED: HYDROcodone/APAP 5/325MG 1 TAB TABLET PO PRN (00:30)
[2016-11-13] MEDS ORDERED: ACETAMINOPHEN/CODEINE 300/30MG TABLET. PO PRN (02:15)
[2016-11-13] MEDS: ALPRAZolam 0.5 MG TABLET PO PRN ×3 (02:29→20:23)
[2016-11-13] MEDS: HYDROmorphone 2 MG TABLET PO PRN ×5 (02:30→20:24)
[2016-11-13 03:55] VITALS: BP 132/84
[2016-11-13 04:25] LABS: BASO # 0.1 x10^3/uL (0.0-0.2); BASO % 1 % (0-3); EOS % 6 % (0-3); HEMATOCRIT 29.5 % (36.0-47.0); HEMOGLOBIN 10.1 g/dL (12.0-15.5); LYMPH # 3.5 x10^3/uL (1.0-4.8); LYMPH % 36 % (24-48); MEAN CORPUSCULAR HEMOGLOBIN 30 pg (25-35); MEAN CORPUSCULAR HGB CONC 34 g/dL (31-37); MEAN CORPUSCULAR VOLUME 88 fL (79-100); MONO % 13 % (0-9); NEUT % 45 % (31-73); PLATELET COUNT 293 x10^3/uL (140-400); RED BLOOD COUNT 3.36 x10^6/uL (3.50-5.40); RED CELL DISTRIBUTION WIDTH 14.3 % (11.5-14.5)
[2016-11-13 04:51] LABS: ALBUMIN 2.6 g/dL (3.4-5.0); ALBUMIN/GLOBULIN RATIO 0.6 (1.0-1.7); CALCIUM 9.1 mg/dL (8.5-10.1); CREATININE 2.7 mg/dL (0.6-1.0); POTASSIUM 4.1 mmol/L (3.5-5.1); TOTAL BILIRUBIN 0.1 mg/dL (0.2-1.0); TOTAL PROTEIN 6.7 g/dL (6.4-8.2)
[2016-11-13 06:31] LABS: POTASSIUM ISTAT 3.9 mmol/L (3.5-5.0)
[2016-11-13 06:55] VITALS: BP 159/108
[2016-11-13] MEDS ORDERED: METOCLOPRAMIDE 5 MG TABLET. PO SCH (07:30)
[2016-11-13] MEDS: SMZ/TMP 800/160MG TABLET. PO SCH (08:16)
[2016-11-13] MEDS: ESCITALOPRAM 10 MG TABLET. PO SCH (08:16)
[2016-11-13] MEDS: PANTOPRAZOLE 40 MG TABLET.DR. PO SCH (08:16)
[2016-11-13] MEDS: LISINOPRIL 10 MG TABLET PO SCH (08:17)
[2016-11-13] MEDS ORDERED: FAMOTIDINE 20 MG/2 ML VIAL IVP SCH (09:00)
[2016-11-13] MEDS ORDERED: ONDANSETRON PF 4 MG/2 ML VIAL. IV PRN (09:15)
--- NOTE | 2016-11-13 10:08 | PDOC ---
Subjective: Subjective: Last GI consult 11/05/16. Discharged 11/09, says wasn't given atbx, diarrhea continued. Vomited twice at home, still hurts to swallow. Was urinating frequently at home. No vomiting or diarrhea here, sent breakfast (clears) back. Objective: Objective: No GI concerns per RN. Vital Signs: Vital Signs Date Time Temp Pulse Resp B/P (MAP) Pulse Ox O2 Delivery O2 Flow Rate FiO2 11/13/16 09:10 16 Room Air 11/13/16 08:17 88 159/108 11/13/16 06:55 97.9 100 97.9 Labs: Laboratory Tests Test 11/12/16 23:10 11/12/16 23:27 11/13/16 04:00 White Blood Count 10.2 x10^3/uL 10.0 x10^3/uL Red Blood Count 3.83 x10^6/uL 3.36 x10^6/uL Hemoglobin 11.4 g/dL 10.1 g/dL Hematocrit 33.5 % 29.5 % Mean Corpuscular Volume 88 fL 88 fL Mean Corpuscular Hemoglobin 30 pg 30 pg Mean Corpuscular Hemoglobin Concent 34 g/dL 34 g/dL Red Cell Distribution Width 14.3 % 14.3 % Platelet Count 348 x10^3/uL 293 x10^3/uL Neutrophils (%) (Auto) 48 % 45 % Lymphocytes (%) (Auto) 33 % 36 % Monocytes (%) (Auto) 13 % 13 % Eosinophils (%) (Auto) 5 % 6 % Basophils (%) (Auto) 1 % 1 % Neutrophils # (Auto) 4.8 x10^3uL 4.5 x10^3uL Lymphocytes # (Auto) 3.4 x10^3/uL 3.5 x10^3/uL Monocytes # (Auto) 1.3 x10^3/uL 1.3 x10^3/uL Eosinophils # (Auto) 0.5 x10^3/uL 0.6 x10^3/uL Basophils # (Auto) 0.1 x10^3/uL 0.1 x10^3/uL Lipase 145 U/L Bedside Hemoglobin 11.6 g/dL Bedside Hematocrit 34 % Bedside Sodium 137 mmol/L Bedside Potassium 3.9 mmol/L Bedside Chloride 98 mmol/L Bedside Total CO2 27 mmol/L Anion Gap 17 mmol/L 7 Bedside Blood Urea Nitrogen 46 mg/dL Bedside Creatinine 2.9 mg/dL Glucose Level 105 mg/dL 132 mg/dL Bedside Ionized Calcium (Jim) 1.22 mmol/L Sodium Level 136 mmol/L Potassium Level 4.1 mmol/L Chloride Level 102 mmol/L Carbon Dioxide Level 27 mmol/L Blood Urea Nitrogen 38 mg/dL Creatinine 2.7 mg/dL Estimated GFR (Cockcroft-Gault) 18.0 BUN/Creatinine Ratio 14 Calcium Level 9.1 mg/dL Total Bilirubin 0.1 mg/dL Aspartate Amino Transf (AST/SGOT) 18 U/L Alanine Aminotransferase (ALT/SGPT) 13 U/L Alkaline Phosphatase 73 U/L Total Protein 6.7 g/dL Albumin 2.6 g/dL Albumin/Globulin Ratio 0.6 PE: GEN: NAD LUNGS: CTAB HEART: RRR ABD: S/ND/NT NEURO/PSYCH: A & O 3 A/P: Recurrent n/v, upper abd pain, diarrhea, and odynophagia -extensive GI workup previously -h/o gastroparesis, GERD/esophagitis, C Diff -has Reglan and PPI GILES -- ?restart treatment for C Diff - will review w/ Dr. Orosco. ANNE-MARIE GARCIA November 13, 2016 10:07
[2016-11-13 10:33] VITALS: BP 103/79
[2016-11-13] MEDS: VANCOMYCIN 125 MG/2.5 ML ORAL SOLUTION. PO SCH ×3 (10:58→20:25)
[2016-11-13] MEDS: METOCLOPRAMIDE HCL 10 MG/2 ML VIAL. IV SCH ×2 (10:59→16:02)
[2016-11-13] MEDS ORDERED: IV NORMAL SALINE 1000ML BAG 1,000 ML IV ONE ×2 (11:15)
--- NOTE | 2016-11-13 11:21 | PDOC1 ---
History and Physical Date of Admission Date of Admission DATE: 11/13/16 TIME: 11:14 Identification/Chief Complaint Chief Complaint abd pain, nausea, vomiting Problems: Source Source: Caregiver, Chart review, Patient History of Present Illness History of Present Illness 61 y/o female, known to us, depressed,w as just dcd 3 days ago for complicated uTI, back again bec if whats he claims as nausea, emesis, abd pain, LAbs are at baseline including ehr crea 2,.7 (now her new baseline). She was not sent home with PO antibiotics for complicated UTI, no micro seen on review on EMAR. NO emesis this AM or overnight per staff, no diarrhea, no hypokalemia or met acidosis, Dw RN and SW, will try to arrange for visiting RN at home I did open up to her about depression, her only friend has not visited her in a while, one other friend recommended "pot" to help with her pain, (she has not tried), her dtr brings her to ER and dtr thinks "she is dying"./ Pt admits she does not self cath as often as instructed. HEr dtr takes care of her dog when she is admitted Past Medical History Cardiovascular: HTN Heme/Onc: Anemia NOS Psych: Anxiety, Depression Rheumatologic: Fibromyalgia Infectious disease: Other Renal/: Chronic renal insuff, Other Past Surgical History Past Surgical History: Total knee replacement, Tubal Ligation, Other Family History Family History: Stroke Social History Smoke: No ALCOHOL: heavy Drugs: None Current Problem List Problem List Problems Medical Problems: (1) Acute kidney injury Status: Acute Problems: Current Medications Current Medications Current Medications Sodium Chloride 1,000 ml @ 1,000 mls/hr 1X ONCE IV Last administered on 23:54; Start 11/13/16 at 00:00; Stop 11/13/16 at 00:59; Status DC Haloperidol Lactate (Haldol) 1.25 mg 1X ONCE IVP Last administered on 23:54; Start 11/13/16 at 00:00; Stop 11/13/16 at 00:01; Status DC Ondansetron HCl (Zofran) 4 mg PRN Q8HRS PRN IV NAUSEA/VOMITING Last administered on 11/12/16 23:53; Start 11/12/16 at 23:45; Stop 11/13/16 at 09:17 ; Status DC Famotidine (Pepcid) 20 mg DAILY IVP Last administered on 11/13/16 08:19; Start 11/13/16 at 09:00; Stop 11/13/16 at 11:14; Status DC Dextrose/Sodium Chloride 1,000 ml @ 150 mls/hr 1X ONCE IV Last administered on 11/13/16 02:30; Start 11/12/16 at 23:45; Stop 11/13/16 at 06:24; Status DC Fentanyl Citrate (Fentanyl 2ml Vial) 50 mcg PRN Q2HRS PRN IV SEVERE PAIN; Start 11/12/16 at 23:45; Stop 11/13/16 at 00:00; Status DC Acetaminophen/ Hydrocodone Bitart (Lortab 5/325) 1 tab PRN Q4HRS PRN PO SEVERE PAIN Last administered on 11/13/16 00:34; Start 11/13/16 at 00:30; Stop at 02:19; Status DC Acetaminophen/ Hydrocodone Bitart (Lortab 5/325) 1 tab STK-MED ONCE .ROUTE ; Start 11/13/16 at 00:29; Stop 11/13/16 at 00:30; Status DC Acetaminophen/ Codeine Phosphate (Tylenol #3) 1 tab PRN Q6HRS PRN PO MODERATE PAIN; Start 11/13/16 at 02:15 Alprazolam (Xanax) 0.5 mg PRN BID PRN PO ANXIETY / AGITATION Last administered on 11/13/16 02:29; Start 11/13/16 at 02:15 Escitalopram Oxalate (Lexapro) 10 mg DAILY PO Last administered on 11/13/16 08 :16; Start 11/13/16 at 09:00 Hydromorphone HCl (Dilaudid) 1 mg PRN Q4HRS PRN PO SEVERE PAIN Last administered on 11/13/16 08:18; Start 11/13/16 at 02:15 Lisinopril (Prinivil) 10 mg DAILY PO Last administered on 11/13/16 08:17; Start 11/13/16 at 09:00 Metoclopramide HCl (Reglan) 5 mg QIDACHS PO Last administered on 11/13/16 08: 16; Start 11/13/16 at 07:30; Stop 11/13/16 at 10:29; Status DC Trimethoprim/ Sulfamethoxazole (Bactrim Ds) 1 tab DAILY PO Last administered on 11/13/16 08:16; Start 11/13/16 at 09:00 Pantoprazole Sodium (Protonix) 40 mg DAILYAC PO Last administered on 11/13/16 08:16; Start 11/13/16 at 07:30 Ondansetron HCl (Zofran) 4 mg PRN Q6HRS PRN IV NAUSEA/VOMITING; Start 11/13/16 at 09:15; Stop 11/14/16 at 09:14 Metoclopramide HCl (Reglan) 10 mg Q6HRS IV Last administered on 11/13/16 10:59 ; Start 11/13/16 at 12:00 Vancomycin HCl 125 mg [id number] PO Last administered on 11/13/16 10:58; Start at 11:00 Active Scripts Active Bactrim Ds Tablet (Sulfamethoxazole/Trimethoprim) 1 Each Tablet 1 Tab PO BID Tylenol With Codeine #3 Tablet (Acetaminophen/Codeine Phosphate) 1 Each Tablet 1 Tab PO PRN Q6HRS PRN Reglan (Metoclopramide Hcl) 10 Mg Tablet 10 Ml PO QID Dilaudid (Hydromorphone Hcl) 2 Mg Tablet 1 Mg PO PRN Q4HRS PRN Xanax (Alprazolam) 0.5 Mg Tablet 1 Tab PO BID PRN Nexium 24Hr (Esomeprazole Magnesium) 20 Mg Capsule.dr 20 Mg PO DAILY Escitalopram Oxalate 10 Mg Tablet 1 Tab PO DAILY Reported Lisinopril 10 Mg Tablet 1 Tab PO DAILY Allergies Allergies: Coded Allergies: levofloxacin (Verified Allergy, Intermediate, 08/16/16) TOLERATES CIPRO morphine (Verified Allergy, Intermediate, tolerates Dilaudid, 07/26/16) I S O L A T I O N *CONTACT* (Verified Allergy, Unknown, 07/26/16) mrsa diphenhydramine HCl (Verified Adverse Reaction, Intermediate, "Jittery on the inside", 07/26/16) ROS General: YES: Fatigue, Malaise PSYCHOLOGICAL ROS: YES: Decreased libido, Depression Eyes: No Blurry vision, No Decreased vision, No Double vision, No Dry eyes, No Excessive tearing, No Eye Pain, No Itchy Eyes, No Loss of vision, No Photophobia , No Scotomata, No Uses contacts, No Uses glasses, No Other HEENT: No: Heacaches, Visual Changes, Hearing change, Nasal congestion, Nasal discharge, Oral lesions, Sinus pain, Sore Throat, Epistaxis, Sneezing, Snoring, Tinnitus, Vertigo, Vocal changes, Other ALLERGY AND IMMUNOLOGY: No: Hives, Insect Bite Sensitivity, Itchy/Watery Eyes, Nasal Congestion, Post Nasal Drip, Seasonal Allergies, Other Hematological and Lymphatic: No: Bleeding Problems, Blood Clots, Blood Transfusions, Brusing, Night Sweats, Pallor, Swollen Lymph Nodes, Other ENDOCRINE: No: Breast Changes, Galactorrhea, Hair Pattern Changes, Hot Flashes , Malaise/lethargy, Mood Swings, Palpitations, Polydipsia/polyuria, Skin Changes , Temperature Intolerance, Unexpected Weight Changes, Other Breast: No New/Changing Breast Lumps, No Nipple changes, No Nipple discharge, No Other Respiratory: No: Cough, Hemoptysis, Orthopnea, Pleuritic Pain, Shortness of breath, SOB with excertion, Sputum Changes, Stridor, Tachypnea, Wheezing, Other Cardiovascular: No Chest Pain, No Palpitations, No Orthopnea, No Paroxysmal Noc. Dyspnea, No Edema, No Lt Headedness, No Other Gastrointestinal: Yes Nausea, Yes Vomiting, Yes Abdominal Pain Genitourinary: YES Retention Musculoskeletal: No Gait Disturbance, No Joint Pain, No Joint Stiffness, No Joint Swelling, No Muscle Pain, No Muscular Weakness, No Pain In:, No Swelling In:, No Other Skin: No Dry Skin, No Eczema, No Hair Changes, No Lumps, No Mole Changes, No Mottling, No Nail Changes, No Pruritus, No Rash, No Skin Lesion Changes, No Other, No Acne Physical Exam General: Alert, Oriented X3, Cooperative, No acute distress HEENT: PERRLA Lungs: Clear to auscultation, Normal air movement Heart: S1S2, RRR, no thrills, no rubs, no gallops, no murmurs Breasts: Normal, Rt breast nml w/o mass, Lt breast nml w/o mass, Nipples normal Abdomen: Normal bowel sounds, Soft, No tenderness, No hepatosplenomegaly, No masses Male Genitals Exam: normal genitalia, normal prostate Rectal Exam: not examined PELVIC: Nml ext genitalia Extremities: No clubbing, No cyanosis, No edema, Normal pulses, No tenderness/ swelling Skin: No rashes, No breakdown, No significant lesion Neuro: Normal gait, Normal speech, Strength at 5/5 X4 ext, Normal tone, Sensation intact, Cranial nerves 3-12 NL, Reflexes 2+ Psych/Mental Status: Mental status NL, Mood NL Vitals Vitals Vital Signs Date Time Temp Pulse Resp B/P (MAP) Pulse Ox O2 Delivery O2 Flow Rate FiO2 11/13/16 10:33 97.8 73 17 103/79 (87) 95 Room Air 97.8 Labs Labs Laboratory Tests Test 11/12/16 23:10 11/12/16 23:27 11/13/16 04:00 White Blood Count 10.2 x10^3/uL (4.0-11.0) 10.0 x10^3/uL (4.0-11.0) Red Blood Count 3.83 x10^6/uL (3.50-5.40) 3.36 x10^6/uL (3.50-5.40) Hemoglobin 11.4 g/dL (12.0-15.5) 10.1 g/dL (12.0-15.5) Hematocrit 33.5 % (36.0-47.0) 29.5 % (36.0-47.0) Mean Corpuscular Volume 88 fL (79-100) 88 fL (79-100) Mean Corpuscular Hemoglobin 30 pg (25-35) 30 pg (25-35) Mean Corpuscular Hemoglobin Concent 34 g/dL (31-37) 34 g/dL (31-37) Red Cell Distribution Width 14.3 % (11.5-14.5) 14.3 % (11.5-14.5) Platelet Count 348 x10^3/uL (140-400) 293 x10^3/uL (140-400) Neutrophils (%) (Auto) 48 % (31-73) 45 % (31-73) Lymphocytes (%) (Auto) 33 % (24-48) 36 % (24-48) Monocytes (%) (Auto) 13 % (0-9) 13 % (0-9) Eosinophils (%) (Auto) 5 % (0-3) 6 % (0-3) Basophils (%) (Auto) 1 % (0-3) 1 % (0-3) Neutrophils # (Auto) 4.8 x10^3uL (1.8-7.7) 4.5 x10^3uL (1.8-7.7) Lymphocytes # (Auto) 3.4 x10^3/uL (1.0-4.8) 3.5 x10^3/uL (1.0-4.8) Monocytes # (Auto) 1.3 x10^3/uL (0.0-1.1) 1.3 x10^3/uL (0.0-1.1) Eosinophils # (Auto) 0.5 x10^3/uL (0.0-0.7) 0.6 x10^3/uL (0.0-0.7) Basophils # (Auto) 0.1 x10^3/uL (0.0-0.2) 0.1 x10^3/uL (0.0-0.2) Lipase 145 U/L (73-393) Bedside Hemoglobin 11.6 g/dL (12-15) Bedside Hematocrit 34 % (36-40) Bedside Sodium 137 mmol/L (135-145) Bedside Potassium 3.9 mmol/L (3.5-5.0) Bedside Chloride 98 mmol/L (98-110) Bedside Total CO2 27 mmol/L (23-32) Anion Gap 17 mmol/L (6-14) 7 (6-14) Bedside Blood Urea Nitrogen 46 mg/dL (8-26) Bedside Creatinine 2.9 mg/dL (0.5-1.4) Glucose Level 105 mg/dL (70-99) 132 mg/dL (70-99) Bedside Ionized Calcium (Jim) 1.22 mmol/L (1.13-1.32) Sodium Level 136 mmol/L (136-145) Potassium Level 4.1 mmol/L (3.5-5.1) Chloride Level 102 mmol/L (98-107) Carbon Dioxide Level 27 mmol/L (21-32) Blood Urea Nitrogen 38 mg/dL (7-20) Creatinine 2.7 mg/dL (0.6-1.0) Estimated GFR (Cockcroft-Gault) 18.0 BUN/Creatinine Ratio 14 (6-20) Calcium Level 9.1 mg/dL (8.5-10.1) Total Bilirubin 0.1 mg/dL (0.2-1.0) Aspartate Amino Transf (AST/SGOT) 18 U/L (15-37) Alanine Aminotransferase (ALT/SGPT) 13 U/L (14-59) Alkaline Phosphatase 73 U/L (46-116) Total Protein 6.7 g/dL (6.4-8.2) Albumin 2.6 g/dL (3.4-5.0) Albumin/Globulin Ratio 0.6 (1.0-1.7) Laboratory Tests Test 11/12/16 23:10 11/12/16 23:27 11/13/16 04:00 White Blood Count 10.2 x10^3/uL (4.0-11.0) 10.0 x10^3/uL (4.0-11.0) Red Blood Count 3.83 x10^6/uL (3.50-5.40) 3.36 x10^6/uL (3.50-5.40) Hemoglobin 11.4 g/dL (12.0-15.5) 10.1 g/dL (12.0-15.5) Hematocrit 33.5 % (36.0-47.0) 29.5 % (36.0-47.0) Mean Corpuscular Volume 88 fL (79-100) 88 fL (79-100) Mean Corpuscular Hemoglobin 30 pg (25-35) 30 pg (25-35) Mean Corpuscular Hemoglobin Concent 34 g/dL (31-37) 34 g/dL (31-37) Red Cell Distribution Width 14.3 % (11.5-14.5) 14.3 % (11.5-14.5) Platelet Count 348 x10^3/uL (140-400) 293 x10^3/uL (140-400) Neutrophils (%) (Auto) 48 % (31-73) 45 % (31-73) Lymphocytes (%) (Auto) 33 % (24-48) 36 % (24-48) Monocytes (%) (Auto) 13 % (0-9) 13 % (0-9) Eosinophils (%) (Auto) 5 % (0-3) 6 % (0-3) Basophils (%) (Auto) 1 % (0-3) 1 % (0-3) Neutrophils # (Auto) 4.8 x10^3uL (1.8-7.7) 4.5 x10^3uL (1.8-7.7) Lymphocytes # (Auto) 3.4 x10^3/uL (1.0-4.8) 3.5 x10^3/uL (1.0-4.8) Monocytes # (Auto) 1.3 x10^3/uL (0.0-1.1) 1.3 x10^3/uL (0.0-1.1) Eosinophils # (Auto) 0.5 x10^3/uL (0.0-0.7) 0.6 x10^3/uL (0.0-0.7) Basophils # (Auto) 0.1 x10^3/uL (0.0-0.2) 0.1 x10^3/uL (0.0-0.2) Lipase 145 U/L (73-393) Bedside Hemoglobin 11.6 g/dL (12-15) Bedside Hematocrit 34 % (36-40) Bedside Sodium 137 mmol/L (135-145) Bedside Potassium 3.9 mmol/L (3.5-5.0) Bedside Chloride 98 mmol/L (98-110) Bedside Total CO2 27 mmol/L (23-32) Anion Gap 17 mmol/L (6-14) 7 (6-14) Bedside Blood Urea Nitrogen 46 mg/dL (8-26) Bedside Creatinine 2.9 mg/dL (0.5-1.4) Glucose Level 105 mg/dL (70-99) 132 mg/dL (70-99) Bedside Ionized Calcium (Jim) 1.22 mmol/L (1.13-1.32) Sodium Level 136 mmol/L (136-145) Potassium Level 4.1 mmol/L (3.5-5.1) Chloride Level 102 mmol/L (98-107) Carbon Dioxide Level 27 mmol/L (21-32) Blood Urea Nitrogen 38 mg/dL (7-20) Creatinine 2.7 mg/dL (0.6-1.0) Estimated GFR (Cockcroft-Gault) 18.0 BUN/Creatinine Ratio 14 (6-20) Calcium Level 9.1 mg/dL (8.5-10.1) Total Bilirubin 0.1 mg/dL (0.2-1.0) Aspartate Amino Transf (AST/SGOT) 18 U/L (15-37) Alanine Aminotransferase (ALT/SGPT) 13 U/L (14-59) Alkaline Phosphatase 73 U/L (46-116) Total Protein 6.7 g/dL (6.4-8.2) Albumin 2.6 g/dL (3.4-5.0) Albumin/Globulin Ratio 0.6 (1.0-1.7) VTE Prophylaxis Ordered VTE Prophylaxis Devices: Yes VTE Pharmacological Prophylaxi: Yes Assessment/Plan Assessment/Plan 1. N[place], emesis,a bd pain, gastroparesis on previous GET] 2. CKD stage 3-4 4. AOCD 5. ETOHism 6. Severe depression NOS 7. NArc seeking behavior 8. HX complicated UTI 9. Urinary retention, self caths 10. NOn compliance PLAN: Await urine cx SW - arrange for home visiting RN Dc iV ranitidine Keep PPI REglan liquid GI soft diet then ADAT NO nephrotoxins IVF 100cc/hr BMP rach Baker pt and RN and SW LIDIA URIAS MD November 13, 2016 11:21
[2016-11-13 14:35] VITALS: BP 106/74
[2016-11-13 19:00] VITALS: BP 128/83
[2016-11-13 23:00] VITALS: BP 138/64
[2016-11-14] MEDS: METOCLOPRAMIDE HCL 10 MG/2 ML VIAL. IV SCH ×3 (01:08→12:00)
[2016-11-14] MEDS: HYDROmorphone 2 MG TABLET PO PRN ×3 (01:09→10:04)
[2016-11-14 03:00] VITALS: BP 115/78
[2016-11-14 06:00] LABS: CALCIUM 9.6 mg/dL (8.5-10.1); CREATININE 2.5 mg/dL (0.6-1.0); GFR 19.6; POTASSIUM 4.8 mmol/L (3.5-5.1)
[2016-11-14 07:00] VITALS: BP 126/77
[2016-11-14] MEDS: VANCOMYCIN 125 MG/2.5 ML ORAL SOLUTION. PO SCH (07:54)
[2016-11-14] MEDS: SMZ/TMP 800/160MG TABLET. PO SCH (07:54)
[2016-11-14 07:56] VITALS: BP 126/77
[2016-11-14] MEDS: ESCITALOPRAM 10 MG TABLET. PO SCH (07:56)
[2016-11-14] MEDS: PANTOPRAZOLE 40 MG TABLET.DR. PO SCH (07:56)
[2016-11-14] MEDS: LISINOPRIL 10 MG TABLET PO SCH (07:56)
[2016-11-14] MEDS: ALPRAZolam 0.5 MG TABLET PO PRN (08:06)
--- NOTE | 2016-11-14 09:34 | PDOC ---
G I PROGRESS NOTE Subjective Nausea, odynophagia persist. Denies much diarrhea. Physical Exam Lungs clear. RRR Abdomen soft, not tender nor distended. Review of Relevant I have reviewed the following items blade (where applicable) has been applied. Labs Laboratory Tests Test 11/12/16 23:10 11/12/16 23:27 11/13/16 04:00 11/14/16 05:25 White Blood Count 10.2 x10^3/uL (4.0-11.0) 10.0 x10^3/uL (4.0-11.0) Red Blood Count 3.83 x10^6/uL (3.50-5.40) 3.36 x10^6/uL (3.50-5.40) Hemoglobin 11.4 g/dL (12.0-15.5) 10.1 g/dL (12.0-15.5) Hematocrit 33.5 % (36.0-47.0) 29.5 % (36.0-47.0) Mean Corpuscular Volume 88 fL (79-100) 88 fL (79-100) Mean Corpuscular Hemoglobin 30 pg (25-35) 30 pg (25-35) Mean Corpuscular Hemoglobin Concent 34 g/dL (31-37) 34 g/dL (31-37) Red Cell Distribution Width 14.3 % (11.5-14.5) 14.3 % (11.5-14.5) Platelet Count 348 x10^3/uL (140-400) 293 x10^3/uL (140-400) Neutrophils (%) (Auto) 48 % (31-73) 45 % (31-73) Lymphocytes (%) (Auto) 33 % (24-48) 36 % (24-48) Monocytes (%) (Auto) 13 % (0-9) 13 % (0-9) Eosinophils (%) (Auto) 5 % (0-3) 6 % (0-3) Basophils (%) (Auto) 1 % (0-3) 1 % (0-3) Neutrophils # (Auto) 4.8 x10^3uL (1.8-7.7) 4.5 x10^3uL (1.8-7.7) Lymphocytes # (Auto) 3.4 x10^3/uL (1.0-4.8) 3.5 x10^3/uL (1.0-4.8) Monocytes # (Auto) 1.3 x10^3/uL (0.0-1.1) 1.3 x10^3/uL (0.0-1.1) Eosinophils # (Auto) 0.5 x10^3/uL (0.0-0.7) 0.6 x10^3/uL (0.0-0.7) Basophils # (Auto) 0.1 x10^3/uL (0.0-0.2) 0.1 x10^3/uL (0.0-0.2) Lipase 145 U/L (73-393) Bedside Hemoglobin 11.6 g/dL (12-15) Bedside Hematocrit 34 % (36-40) Bedside Sodium 137 mmol/L (135-145) Bedside Potassium 3.9 mmol/L (3.5-5.0) Bedside Chloride 98 mmol/L (98-110) Bedside Total CO2 27 mmol/L (23-32) Anion Gap 17 mmol/L (6-14) 7 (6-14) 6 (6-14) Bedside Blood Urea Nitrogen 46 mg/dL (8-26) Bedside Creatinine 2.9 mg/dL (0.5-1.4) Glucose Level 105 mg/dL (70-99) 132 mg/dL (70-99) 93 mg/dL (70-99) Bedside Ionized Calcium (Jim) 1.22 mmol/L (1.13-1.32) Sodium Level 136 mmol/L (136-145) 138 mmol/L (136-145) Potassium Level 4.1 mmol/L (3.5-5.1) 4.8 mmol/L (3.5-5.1) Chloride Level 102 mmol/L (98-107) 105 mmol/L (98-107) Carbon Dioxide Level 27 mmol/L (21-32) 27 mmol/L (21-32) Blood Urea Nitrogen 38 mg/dL (7-20) 26 mg/dL (7-20) Creatinine 2.7 mg/dL (0.6-1.0) 2.5 mg/dL (0.6-1.0) Estimated GFR (Cockcroft-Gault) 18.0 19.6 BUN/Creatinine Ratio 14 (6-20) Calcium Level 9.1 mg/dL (8.5-10.1) 9.6 mg/dL (8.5-10.1) Total Bilirubin 0.1 mg/dL (0.2-1.0) Aspartate Amino Transf (AST/SGOT) 18 U/L (15-37) Alanine Aminotransferase (ALT/SGPT) 13 U/L (14-59) Alkaline Phosphatase 73 U/L (46-116) Total Protein 6.7 g/dL (6.4-8.2) Albumin 2.6 g/dL (3.4-5.0) Albumin/Globulin Ratio 0.6 (1.0-1.7) Laboratory Tests Test 11/14/16 05:25 Sodium Level 138 mmol/L (136-145) Potassium Level 4.8 mmol/L (3.5-5.1) Chloride Level 105 mmol/L (98-107) Carbon Dioxide Level 27 mmol/L (21-32) Anion Gap 6 (6-14) Blood Urea Nitrogen 26 mg/dL (7-20) Creatinine 2.5 mg/dL (0.6-1.0) Estimated GFR (Cockcroft-Gault) 19.6 Glucose Level 93 mg/dL (70-99) Calcium Level 9.6 mg/dL (8.5-10.1) Medications Current Medications Sodium Chloride 1,000 ml @ 1,000 mls/hr 1X ONCE IV Last administered on 23:54; Start 11/13/16 at 00:00; Stop 11/13/16 at 00:59; Status DC Haloperidol Lactate (Haldol) 1.25 mg 1X ONCE IVP Last administered on 23:54; Start 11/13/16 at 00:00; Stop 11/13/16 at 00:01; Status DC Ondansetron HCl (Zofran) 4 mg PRN Q8HRS PRN IV NAUSEA/VOMITING Last administered on 11/12/16 23:53; Start 11/12/16 at 23:45; Stop 11/13/16 at 09:17 ; Status DC Famotidine (Pepcid) 20 mg DAILY IVP Last administered on 11/13/16 08:19; Start 11/13/16 at 09:00; Stop 11/13/16 at 11:14; Status DC Dextrose/Sodium Chloride 1,000 ml @ 150 mls/hr 1X ONCE IV Last administered on 11/13/16 02:30; Start 11/12/16 at 23:45; Stop 11/13/16 at 06:24; Status DC Fentanyl Citrate (Fentanyl 2ml Vial) 50 mcg PRN Q2HRS PRN IV SEVERE PAIN; Start 11/12/16 at 23:45; Stop 11/13/16 at 00:00; Status DC Acetaminophen/ Hydrocodone Bitart (Lortab 5/325) 1 tab PRN Q4HRS PRN PO SEVERE PAIN Last administered on 11/13/16 00:34; Start 11/13/16 at 00:30; Stop at 02:19; Status DC Acetaminophen/ Hydrocodone Bitart (Lortab 5/325) 1 tab STK-MED ONCE .ROUTE ; Start 11/13/16 at 00:29; Stop 11/13/16 at 00:30; Status DC Acetaminophen/ Codeine Phosphate (Tylenol #3) 1 tab PRN Q6HRS PRN PO MODERATE PAIN; Start 11/13/16 at 02:15 Alprazolam (Xanax) 0.5 mg PRN BID PRN PO ANXIETY / AGITATION Last administered on 11/14/16 08:06; Start 11/13/16 at 02:15 Escitalopram Oxalate (Lexapro) 10 mg DAILY PO Last administered on 11/14/16 07 :56; Start 11/13/16 at 09:00 Hydromorphone HCl (Dilaudid) 1 mg PRN Q4HRS PRN PO SEVERE PAIN Last administered on 11/14/16 05:30; Start 11/13/16 at 02:15 Lisinopril (Prinivil) 10 mg DAILY PO Last administered on 11/14/16 07:56; Start 11/13/16 at 09:00 Metoclopramide HCl (Reglan) 5 mg QIDACHS PO Last administered on 11/13/16 08: 16; Start 11/13/16 at 07:30; Stop 11/13/16 at 10:29; Status DC Trimethoprim/ Sulfamethoxazole (Bactrim Ds) 1 tab DAILY PO Last administered on 11/14/16 07:54; Start 11/13/16 at 09:00 Pantoprazole Sodium (Protonix) 40 mg DAILYAC PO Last administered on 11/14/16 07:56; Start 11/13/16 at 07:30 Ondansetron HCl (Zofran) 4 mg PRN Q6HRS PRN IV NAUSEA/VOMITING; Start 11/13/16 at 09:15; Stop 11/14/16 at 09:14; Status DC Metoclopramide HCl (Reglan) 10 mg Q6HRS IV Last administered on 11/14/16 05:30 ; Start 11/13/16 at 12:00 Vancomycin HCl 125 mg [id number] PO Last administered on 11/14/16 07:54; Start at 11:00 Sodium Chloride 1,000 ml @ 100 mls/hr 1X ONCE IV Last administered on 11:58; Start 11/13/16 at 11:15; Stop 11/13/16 at 21:14; Status DC Active Scripts Active Bactrim Ds Tablet (Sulfamethoxazole/Trimethoprim) 1 Each Tablet 1 Tab PO BID Tylenol With Codeine #3 Tablet (Acetaminophen/Codeine Phosphate) 1 Each Tablet 1 Tab PO PRN Q6HRS PRN Reglan (Metoclopramide Hcl) 10 Mg Tablet 10 Ml PO QID Dilaudid (Hydromorphone Hcl) 2 Mg Tablet 1 Mg PO PRN Q4HRS PRN Xanax (Alprazolam) 0.5 Mg Tablet 1 Tab PO BID PRN Nexium 24Hr (Esomeprazole Magnesium) 20 Mg Capsule.dr 20 Mg PO DAILY Escitalopram Oxalate 10 Mg Tablet 1 Tab PO DAILY Reported Lisinopril 10 Mg Tablet 1 Tab PO DAILY Vitals/I & O Vital Sign - Last 24 Hours 11/13/16 11/13/16 11/13/16 11/13/16 10:33 11:59 14:35 16:02 Temp 97.8 98.3 97.8 98.3 Pulse 73 72 Resp 17 14 18 14 B/P (MAP) 103/79 (87) 106/74 (85) Pulse Ox 95 94 O2 Delivery Room Air Room Air Room Air Room Air 11/13/16 11/13/16 11/13/16 11/13/16 19:00 20:00 20:24 23:00 Temp 97.3 98.3 97.3 98.3 Pulse 73 88 Resp 18 20 18 B/P (MAP) 128/83 (98) 138/64 (88) Pulse Ox 98 96 95 O2 Delivery Room Air Room Air Room Air Room Air 11/14/16 11/14/16 11/14/16 11/14/16 01:09 03:00 05:30 06:28 Temp 97.3 97.3 Pulse 73 Resp 20 18 20 20 B/P (MAP) 115/78 (90) Pulse Ox 96 97 96 96 O2 Delivery Room Air Room Air Room Air Room Air 11/14/16 11/14/16 11/14/16 07:00 07:56 07:58 Temp 97.9 97.9 Pulse 67 67 Resp 18 B/P (MAP) 126/77 (93) 126/77 Pulse Ox 96 O2 Delivery Room Air Room Air Intake and Output 11/13/16 11/13/16 11/14/16 15:00 23:00 07:00 Intake Total 660 ml 950 ml 450 ml Output Total 400 ml Balance 660 ml 950 ml 50 ml Problem List Problems Medical Problems: (1) Acute kidney injury Status: Acute Assessment Reflux/gastroparesis C.diff; even w/o diarrhea, needs to continue vanc. Plan of Care: Continue current Tx, Mgmt Plan of Care Note Add GI cocktail prn. Maybe transition Reglan in a day or two. PREET AMEZQUITA MD November 14, 2016 09:34
--- NOTE | 2016-11-14 10:16 | PDOC3 ---
Discharge Summary Visit Information Date of Admission: November 13, 2016 Date of Discharge: November 14, 2016 Admitting Diagnosis Comment: 1. NAsuea, emesis,a bd pain, gastroparesis on previous GET] 2. CKD stage 3-4 4. AOCD 5. ETOHism 6. Severe depression NOS 7. NArc seeking behavior 8. HX complicated UTI 9. Urinary retention, self caths 10. NOn compliance Final Diagnosis Problems Medical Problems: (1) Acute kidney injury Status: Acute Brief Hospital Course Allergies Allergies Coded Allergies Type Severity Reaction Last Updated Verified levofloxacin Allergy Intermediate 08/16/16 Yes morphine Allergy Intermediate tolerates Dilaudid 07/26/16 Yes I S O L A T I O N *CONTACT* Allergy Unknown 07/26/16 Yes diphenhydramine HCl Adverse Reaction Intermediate "Jittery on the inside" 07/26 Yes Vital Signs Vital Signs Date Time Temp Pulse Resp B/P (MAP) Pulse Ox O2 Delivery O2 Flow Rate FiO2 11/14/16 10:04 96 Room Air 11/14/16 07:56 67 126/77 11/14/16 07:00 97.9 18 97.9 Lab Results Laboratory Tests Test 11/12/16 23:10 11/12/16 23:27 11/13/16 04:00 11/14/16 05:25 White Blood Count 10.2 x10^3/uL (4.0-11.0) 10.0 x10^3/uL (4.0-11.0) Red Blood Count 3.83 x10^6/uL (3.50-5.40) 3.36 x10^6/uL (3.50-5.40) Hemoglobin 11.4 g/dL (12.0-15.5) 10.1 g/dL (12.0-15.5) Hematocrit 33.5 % (36.0-47.0) 29.5 % (36.0-47.0) Mean Corpuscular Volume 88 fL (79-100) 88 fL (79-100) Mean Corpuscular Hemoglobin 30 pg (25-35) 30 pg (25-35) Mean Corpuscular Hemoglobin Concent 34 g/dL (31-37) 34 g/dL (31-37) Red Cell Distribution Width 14.3 % (11.5-14.5) 14.3 % (11.5-14.5) Platelet Count 348 x10^3/uL (140-400) 293 x10^3/uL (140-400) Neutrophils (%) (Auto) 48 % (31-73) 45 % (31-73) Lymphocytes (%) (Auto) 33 % (24-48) 36 % (24-48) Monocytes (%) (Auto) 13 % (0-9) 13 % (0-9) Eosinophils (%) (Auto) 5 % (0-3) 6 % (0-3) Basophils (%) (Auto) 1 % (0-3) 1 % (0-3) Neutrophils # (Auto) 4.8 x10^3uL (1.8-7.7) 4.5 x10^3uL (1.8-7.7) Lymphocytes # (Auto) 3.4 x10^3/uL (1.0-4.8) 3.5 x10^3/uL (1.0-4.8) Monocytes # (Auto) 1.3 x10^3/uL (0.0-1.1) 1.3 x10^3/uL (0.0-1.1) Eosinophils # (Auto) 0.5 x10^3/uL (0.0-0.7) 0.6 x10^3/uL (0.0-0.7) Basophils # (Auto) 0.1 x10^3/uL (0.0-0.2) 0.1 x10^3/uL (0.0-0.2) Lipase 145 U/L (73-393) Bedside Hemoglobin 11.6 g/dL (12-15) Bedside Hematocrit 34 % (36-40) Bedside Sodium 137 mmol/L (135-145) Bedside Potassium 3.9 mmol/L (3.5-5.0) Bedside Chloride 98 mmol/L (98-110) Bedside Total CO2 27 mmol/L (23-32) Anion Gap 17 mmol/L (6-14) 7 (6-14) 6 (6-14) Bedside Blood Urea Nitrogen 46 mg/dL (8-26) Bedside Creatinine 2.9 mg/dL (0.5-1.4) Glucose Level 105 mg/dL (70-99) 132 mg/dL (70-99) 93 mg/dL (70-99) Bedside Ionized Calcium (Jim) 1.22 mmol/L (1.13-1.32) Sodium Level 136 mmol/L (136-145) 138 mmol/L (136-145) Potassium Level 4.1 mmol/L (3.5-5.1) 4.8 mmol/L (3.5-5.1) Chloride Level 102 mmol/L (98-107) 105 mmol/L (98-107) Carbon Dioxide Level 27 mmol/L (21-32) 27 mmol/L (21-32) Blood Urea Nitrogen 38 mg/dL (7-20) 26 mg/dL (7-20) Creatinine 2.7 mg/dL (0.6-1.0) 2.5 mg/dL (0.6-1.0) Estimated GFR (Cockcroft-Gault) 18.0 19.6 BUN/Creatinine Ratio 14 (6-20) Calcium Level 9.1 mg/dL (8.5-10.1) 9.6 mg/dL (8.5-10.1) Total Bilirubin 0.1 mg/dL (0.2-1.0) Aspartate Amino Transf (AST/SGOT) 18 U/L (15-37) Alanine Aminotransferase (ALT/SGPT) 13 U/L (14-59) Alkaline Phosphatase 73 U/L (46-116) Total Protein 6.7 g/dL (6.4-8.2) Albumin 2.6 g/dL (3.4-5.0) Albumin/Globulin Ratio 0.6 (1.0-1.7) Laboratory Tests Test 11/14/16 05:25 Sodium Level 138 mmol/L (136-145) Potassium Level 4.8 mmol/L (3.5-5.1) Chloride Level 105 mmol/L (98-107) Carbon Dioxide Level 27 mmol/L (21-32) Anion Gap 6 (6-14) Blood Urea Nitrogen 26 mg/dL (7-20) Creatinine 2.5 mg/dL (0.6-1.0) Estimated GFR (Cockcroft-Gault) 19.6 Glucose Level 93 mg/dL (70-99) Calcium Level 9.6 mg/dL (8.5-10.1) Brief Hospital Course Ms. Rodriguez is a 61 old [sex] who presented with [ ]61 y/o female, known to us, depressed,w as just dcd 3 days ago for complicated uTI, back again bec if whats he claims as nausea, emesis, abd pain, LAbs are at baseline including ehr crea 2,.7 (now her new baseline). She was not sent home with PO antibiotics for complicated UTI, no micro seen on review on EMAR. NO emesis this AM or overnight per staff, no diarrhea, no hypokalemia or met acidosis, Samuel RN and SW, will try to arrange for visiting RN at home I did open up to her about depression, her only friend has not visited her in a while, one other friend recommended "pot" to help with her pain, (she has not tried), her dtr brings her to ER and dtr thinks "she is dying"./ Pt admits she does not self cath as often as instructed. HEr dtr takes care of her dog when she is admitted Stayed overnight, crea better new baseline is 2.5 Does not really eat - so depressed. Given rx for reglan as advised by GI We have arranged for visiting RN to help dec her freq of admits SHe does admit she gets lonely at home She does not actually ask for too much pain meds while in house Samuel RN and JONHSON Discharge Information Condition at Discharge: Improved, Stable Disposition/Orders: D/C to Home w/ HH Scheduled Escitalopram Oxalate (Escitalopram Oxalate), 1 TAB PO DAILY Esomeprazole Magnesium (Nexium 24Hr), 20 MG PO DAILY Lisinopril (Lisinopril), 1 TAB PO DAILY, (Reported) Metoclopramide Hcl (Reglan), 10 ML PO QID Sulfamethoxazole/Trimethoprim (Bactrim Ds Tablet), 1 TAB PO BID Scheduled PRN Acetaminophen With Codeine (Tylenol With Codeine #3 Tablet), 1 TAB PO PRN Q6HRS PRN for PAIN Alprazolam (Xanax), 1 TAB PO BID PRN for ANXIETY / AGITATION Hydromorphone Hcl (Dilaudid), 1 MG PO PRN Q4HRS PRN for PAIN LIDIA URIAS MD November 14, 2016 10:16
[2016-11-14] MEDS ORDERED: LIDO:MAALOX:DONNATAL 1:1:1 15 ML SINGLE DOSE SWSW PRN (14:15)
== END 2016-11-14 13:10 | disposition home health service (06) | DRG 391 ==
LOC: ER 21:25 → 6 SOUTH 11-13 01:37
PROVIDERS: ADMIT Internal Medicine Hematology & Oncology; ATTEND Internal Medicine Hematology & Oncology
DX: K31.84 Gastroparesis (principal); E43 Unspecified severe protein-calorie malnutrition; N17.9 Acute kidney failure, unspecified; N18.4 Chronic kidney disease, stage 4 (severe); K21.9 Gastro-esophageal reflux disease without esophagitis; I12.9 Hypertensive chronic kidney disease with stage 1 through stage 4 chronic kidney disease, or unspecified chronic kidney disease; F41.9 Anxiety disorder, unspecified; F32.9 Major depressive disorder, single episode, unspecified; F10.20 Alcohol dependence, uncomplicated; D63.8 Anemia in other chronic diseases classified elsewhere; M79.7 Fibromyalgia; R33.9 Retention of urine, unspecified; Z96.652 Presence of left artificial knee joint; G89.29 Other chronic pain; M19.90 Unspecified osteoarthritis, unspecified site; Z88.1 Allergy status to other antibiotic agents; Z82.3 Family history of stroke; Z91.19 Patient's noncompliance with other medical treatment and regimen; Z88.5 Allergy status to narcotic agent; Z88.8 Allergy status to other drugs, medicaments and biological substances; Z98.51 Tubal ligation status
CPT/HCPCS: 36415; 80047; 80048; 80053; 83690; 85027; 87086; 87186; 96361; 96374; 96375; J1630; J2405; J2765; J7030; J8597; S0028; 99285-25

== ENCOUNTER 2016-12-02 10:40 | Emergency (ER) | payer MEDICARE, MEDICAID ==
[~2016-12-02] VITALS: Ht 162.6 cm; Wt 68.0 kg
[2016-12-02 10:58] VITALS: BP 137/95
[2016-12-02] MEDS ORDERED: fentaNYL PF VIAL 100 MCG/2 ML VIAL IM ONE (11:15)
--- NOTE | 2016-12-02 11:36 | RAD ---
Indication: Fall with pain to the right knee. Time of exam 11:24 AM Multiple views of the right knee were obtained. There is significant medial compartmental degenerative change with joint space narrowing and marginal spurring. Moderate lateral compartmental degenerative change is also seen. No fracture or dislocation is identified. There is no joint effusion. Impression: Degenerative changes. No acute bony abnormality is detected.
--- NOTE | 2016-12-02 11:37 | RAD ---
Fall and pain to the right hip. Time of exam 11:27 AM Multiple views of the pelvis and hips were performed. Femoral acetabular alignment is normal. The femoral heads and necks are intact. The rami are intact. No fractures are seen. There are postop changes lower lumbar spine. Impression: No acute bony abnormality is detected.
--- NOTE | 2016-12-02 11:38 | RAD ---
Indication: Fall and right arm pain. Time of exam 11:26 AM 2 views of the right humerus demonstrate normal alignment at the shoulder and elbow. The humerus is intact. No fractures are seen. Impression: No acute bony abnormality is detected.
--- NOTE | 2016-12-02 11:38 | RAD ---
Indication: Fall and right shoulder pain. Time of exam 11:23 AM 3 views of the right shoulder demonstrate normal glenohumeral and acromioclavicular alignment. No fracture is detected. Impression: No acute bony abnormality is identified.
[2016-12-02] MEDS ORDERED: OXYC-250 PO (12:34)
--- NOTE | 2016-12-02 12:34 | PHYS DOC ---
Past Medical History Past Medical History: Alcoholism, Anxiety, Arthritis, Hypertension, Other Additional Past Medical Histor: c diff, chronic n/v/d & abdominal pain, gastritis, renal insufficiency Past Surgical History: Knee Replacement, Other Additional Past Surgical Histo: back and foot surger, LEFT KNEE REPLACEMENT X2 Alcohol Use: Occasionally Drug Use: Opiates Adult General Chief Complaint Chief Complaint: MECHANICAL FALL HPI HPI Patient is a 61 year old female with history of anxiety arthritis hypertension alcoholism who presents today with right humerus pain and right knee pain after falling last night. Patient states her dog ran behind hit her hard enough that she fell. Patient states she fell on her right side. Patient denies any loss of consciousness. She states her neighbor had to come and get her off the ground and put her into the house. She states she lives by herself but her daughter lives a couple houses down the street who somehow brought her to the ED but is not present. Patient denies hitting her head on the ground. Denies taking any Coumadin. She states she has not been able to ambulate yet the nurses report she ambulated in her room with no difficulty. PCP Dr. Rojo Review of Systems Review of Systems Constitutional: Denies fever or chills [] Eyes: Denies change in visual acuity, redness, or eye pain [] HENT: Denies nasal congestion or sore throat [] Respiratory: Denies cough or shortness of breath [] Cardiovascular: No additional information not addressed in HPI [] GI: Denies abdominal pain, nausea, vomiting, bloody stools or diarrhea [] : Denies dysuria or hematuria [] Musculoskeletal: Right humerus and right knee pain Integument: Denies rash or skin lesions [] Neurologic: Denies headache, focal weakness or sensory changes [] Endocrine: Denies polyuria or polydipsia [] Current Medications Current Medications Current Medications Medications (Trade) Dose Ordered Sig/Taz Start Time Stop Time Status Last Admin Dose Admin Fentanyl Citrate (Fentanyl 2ml Vial) 50 mcg 1X ONCE 12/02/16 11:15 12/02/16 11:16 DC 12/02/16 11:25 50 MCG Allergies Allergies Allergies Coded Allergies Type Severity Reaction Last Updated Verified levofloxacin Allergy Intermediate 08/16/16 Yes morphine Allergy Intermediate tolerates Dilaudid 07/26/16 Yes I S O L A T I O N *CONTACT* Allergy Unknown 07/26/16 Yes diphenhydramine HCl Adverse Reaction Intermediate "Jittery on the inside" 07/26 Yes Physical Exam Physical Exam Constitutional: Well developed, well nourished, no acute distress, non-toxic appearance. [] HENT: Normocephalic, atraumatic, bilateral external ears normal, oropharynx moist, no oral exudates, nose normal. [] Eyes: PERRLA, EOMI, conjunctiva normal, no discharge. [] Neck: Normal range of motion, no tenderness, supple, no stridor. [] Cardiovascular:Heart rate regular rhythm, no murmur [] Lungs & Thorax: Bilateral breath sounds clear to auscultation [] Abdomen: Bowel sounds normal, soft, no tenderness, no masses, no pulsatile masses. [] Skin: Warm, dry, no erythema, no rash. [] Back: No tenderness, no CVA tenderness. [] Extremities: No obvious bruising or signs of trauma noted on the right shoulder or humerus. No bruising on her knees. No right shoulder pain. No right clavicle pain, no right ACM pain. No scapular pain. Full range of motion to the right shoulder including abduction and adduction. Adequate medial radial and ulnar sensation to the right forearm. Right knee with no obvious deformity. No signs of trauma. Full range of motion to the right knee including flexion and extension, negative Cathy sign and negative Adilene's sign. +2 right pedal pulse. Cap refill less than to the right lower extremity. Neurologic: Alert and oriented X 3, normal motor function, normal sensory function, no focal deficits noted. [] Psychologic: Affect normal, judgement normal, mood normal. [] Current Patient Data Vital Signs Vital Signs Date Time Temp Pulse Resp B/P (MAP) Pulse Ox O2 Delivery O2 Flow Rate FiO2 12/02/16 10:58 98.5 100 19 137/95 (109) 97 Room Air 98.5 EKG EKG [] Radiology/Procedures Radiology/Procedures []PROCEDURE: SHOULDER 2+V RIGHT Indication: Fall and right shoulder pain. Time of exam 11:23 AM 3 views of the right shoulder demonstrate normal glenohumeral and acromioclavicular alignment. No fracture is detected. Impression: No acute bony abnormality is identified. DICTATED and SIGNED BY: MELODY MARTINEZ MD DATE: 12/02/16 1135 CC: TK COLVIN APRN; UNKNOWN PCP NAME; NAT PAREDES DO ~ PROCEDURE: HUMERUS RIGHT Indication: Fall and right arm pain. Time of exam 11:26 AM 2 views of the right humerus demonstrate normal alignment at the shoulder and elbow. The humerus is intact. No fractures are seen. Impression: No acute bony abnormality is detected. DICTATED and SIGNED BY: MELODY MARTINEZ MD DATE: 12/02/16 1135 CC: TK COLVIN APRN; UNKNOWN PCP NAME; NAT PAREDES DO ~ PROCEDURE: KNEE RIGHT 4V Indication: Fall with pain to the right knee. Time of exam 11:24 AM Multiple views of the right knee were obtained. There is significant medial compartmental degenerative change with joint space narrowing and marginal spurring. Moderate lateral compartmental degenerative change is also seen. No fracture or dislocation is identified. There is no joint effusion. Impression: Degenerative changes. No acute bony abnormality is detected. DICTATED and SIGNED BY: MELODY MARTINEZ MD DATE: 12/02/16 1133 CC: TK COLVIN APRN; UNKNOWN PCP NAME; NAT PAREDES DO ~ PROCEDURE: HIP RIGHT 2V WITH PELVIS Fall and pain to the right hip. Time of exam 11:27 AM Multiple views of the pelvis and hips were performed. Femoral acetabular alignment is normal. The femoral heads and necks are intact. The rami are intact. No fractures are seen. There are postop changes lower lumbar spine. Impression: No acute bony abnormality is detected. DICTATED and SIGNED BY: MELODY MARTINEZ MD DATE: 12/02/16 1134 CC: TK COLVIN APRN; UNKNOWN PCP NAME; NAT PAREDES DO ~ Course & Med Decision Making Course & Med Decision Making Pertinent Labs and Imaging studies reviewed. (See chart for details) Patient is in the ED right humerus and right knee pain after falling last night. There is no bruising or signs of trauma anywhere in her body. We did x- rays of her right shoulder, right humerus, right hip with pelvic, and right knee x-rays interpreted by radiologist as negative for any acute findings. Patient was stating she cannot ambulate. The nursing staff states patient has been ambulating in the ED since arrival with no difficulties. Went to talk to patient. Informed her if she is not able to ambulate will contact the healthcare social worker and she'll be placed in a senior care. Patient immediately stated she cannot go to a senior care and would like to be discharged home. Inquired from her if she is able to ambulate she stated she will be able to ambulate and go home. She requested something for pain she states she takes oxycodone at home. Prescription given to her and she left. She is to follow-up with her PCP and orthopedic doctor next week. Dragon Disclaimer Dragon Disclaimer This electronic medical record was generated, in whole or in part, using a voice recognition dictation system. Departure Departure Impression: Primary Impression: Fall from standing Additional Impressions: Contusion of right shoulder Contusion of right knee Disposition: HOME, SELF-CARE Condition: STABLE Referrals: UNKNOWN PCP NAME (PCP) JUDY SAMSON MD follow-up with the orthopedic doctor and your primary care doctor in a week Patient Instructions: Contusion, Fall Prevention and Home Safety Additional Instructions: You were seen for right knee and right shoulder contusion after falling. Take the prescribed medicines as needed for pain. Follow-up with the provided orthopedic doctor or your own doctor in one week if pain continues. Scripts Oxycodone/Apap 10-325 (PERCOCET 10-325 MG TABLET) 1 Each Tablet 1 TAB PO Q4-6HRS, #6 TAB Prov: TK COLVIN APRN 12/02/16 Problem Qualifiers Primary Impression: Fall from standing Encounter type: initial encounter Qualified Codes: W19.XXXA - Unspecified fall, initial encounter Additional Impressions: Contusion of right shoulder Encounter type: initial encounter Qualified Codes: S40.011A - Contusion of right shoulder, initial encounter Contusion of right knee Encounter type: initial encounter Qualified Codes: S80.01XA - Contusion of right knee, initial encounter TK COLVIN APRN Dec 02, 2016 12:34
== END 2016-12-02 13:02 | disposition home or self-care (01) ==
LOC: ER 10:40
DX: S40.011A Contusion of right shoulder, initial encounter (principal); S80.01XA Contusion of right knee, initial encounter; F41.9 Anxiety disorder, unspecified; I10 Essential (primary) hypertension; F10.20 Alcohol dependence, uncomplicated; M19.90 Unspecified osteoarthritis, unspecified site; F11.10 Opioid abuse, uncomplicated; Z96.652 Presence of left artificial knee joint; Z88.1 Allergy status to other antibiotic agents; Z88.5 Allergy status to narcotic agent; Z88.8 Allergy status to other drugs, medicaments and biological substances; Z91.041 Radiographic dye allergy status; W18.39XA Other fall on same level, initial encounter; Y93.89 Activity, other specified; Y92.89 Other specified places as the place of occurrence of the external cause; Y99.8 Other external cause status
CPT/HCPCS: 73030; 73060; 73502; 73564; 96372; 99284; J3010

== ENCOUNTER 2016-12-05 11:54 | Inpatient (IN) | payer MEDICAID, MEDICARE ==
[~2016-12-05] VITALS: Ht 162.6 cm; Wt 68.6 kg
[~2016-12-05 11:54] MED LIST changes: -HYDR2TAB13 PO; +HYDR2TAB31 PO; -HYDR4TAB13; -HYDR4TAB13 PO; +HYDR4TAB45; +HYDR4TAB45 PO; +OXYC-328 PO; -OXYC10TA32; +OXYC10TA45
--- NOTE | 2016-12-05 12:28 | ED.ADGEN ---
Past Medical History Past Medical History: Alcoholism, Anxiety, Arthritis, Hypertension, Other Additional Past Medical Histor: c diff, chronic n/v/d & abdominal pain, gastritis, renal insufficiency Past Surgical History: Knee Replacement, Other Additional Past Surgical Histo: back and foot surger, LEFT KNEE REPLACEMENT X2 Alcohol Use: Occasionally Drug Use: Opiates Adult General Chief Complaint Chief Complaint: LOWER BACK PAIN OR INJURY HPI HPI Patient is a 61 year old well known to this institution who presents with exacerbation of chronic back pain. Patient has history of chronic pain syndrome , chronic alcoholism, GERD, chronic kidney disease who presents with nontraumatic back pain for the past 2-3 days. Patient reports escalation of pain. No motor weakness loss of sensation bowel or bladder incontinence. Patient was last seen at this facility 4 days ago for fall from standing. Patient did not plane of acute back pain at that time. She was discharged home with pain medication in addition to her home oxycodone. She was instructed to follow-up with her PCP and/or orthopedic physician. Patient has not scheduled any of these appointments at this time. Patient denies any other acute injury or complaints. Review of Systems Review of Systems ROS as per HPI. Current Medications Current Medications Current Medications Medications (Trade) Dose Ordered Sig/Taz Start Time Stop Time Status Last Admin Dose Admin Ketorolac Tromethamine (Toradol Im) 60 mg 1X ONCE 12/05/16 12:30 12/05/16 12:31 DC 12/05/16 13:02 60 MG Sodium Polystyrene Sulfonate (Kayexalate) 30 gm 1X ONCE 12/05/16 13:15 12/05/16 13:16 DC Sodium Chloride 1,000 ml @ 1,000 mls/hr 1X ONCE 12/05/16 12:45 12/05/16 13:44 12/05/16 13:01 1,000 MLS/HR Allergies Allergies Allergies Coded Allergies Type Severity Reaction Last Updated Verified levofloxacin Allergy Intermediate 08/16/16 Yes morphine Allergy Intermediate tolerates Dilaudid 07/26/16 Yes I S O L A T I O N *CONTACT* Allergy Unknown 07/26/16 Yes diphenhydramine HCl Adverse Reaction Intermediate "Jittery on the inside" 07/26 Yes Physical Exam Physical Exam Constitutional: Well developed, anxious, moderate to discomfort secondary to pain. Antalgic gait. HENT: Normocephalic, atraumatic, bilateral external ears normal, oropharynx moist, no oral exudates, nose normal. Eyes: PERRL. Neck: Normal range of motion. Cardiovascular:Heart rate regular rhythm, no murmur. Lungs & Thorax: Bilateral breath sounds clear to auscultation. Abdomen: Bowel sounds normal, soft, no tenderness. Skin: Warm, dry. Back: No CVA TTP. Extremities: No midline tenderness, Neurologic: Alert and oriented, normal motor function, normal sensory function, no focal deficits noted. Psychologic: Affect normal, judgement normal, mood normal. Current Patient Data Vital Signs Vital Signs Date Time Temp Pulse Resp B/P (MAP) Pulse Ox O2 Delivery O2 Flow Rate FiO2 12/05/16 12:05 98.7 108 20 160/95 (116) 93 Room Air 98.7 Lab Values Laboratory Tests Test 12/05/16 12:20 12/05/16 12:25 Urine Collection Type U cath Urine Color Yellow Urine Clarity Turbid Urine pH 6.0 Urine Specific Grayson 1.015 Urine Protein >=300 mg/dL (NEG-TRACE) Urine Glucose (UA) Negative mg/dL (NEG) Urine Ketones (Stick) Negative mg/dL (NEG) Urine Blood Large (NEG) Urine Nitrite Negative (NEG) Urine Bilirubin Negative (NEG) Urine Urobilinogen Dipstick 0.2 mg/dL (0.2 mg/dL) Urine Leukocyte Esterase Large (NEG) Urine RBC >40 /HPF (0-2) Urine WBC Tntc /HPF (0-4) Urine Bacteria Many /HPF (0-FEW) White Blood Count 10.8 x10^3/uL (4.0-11.0) Red Blood Count 4.73 x10^6/uL (3.50-5.40) Hemoglobin 14.0 g/dL (12.0-15.5) Hematocrit 42.5 % (36.0-47.0) Mean Corpuscular Volume 90 fL (79-100) Mean Corpuscular Hemoglobin 30 pg (25-35) Mean Corpuscular Hemoglobin Concent 33 g/dL (31-37) Red Cell Distribution Width 15.3 % (11.5-14.5) H Platelet Count 400 x10^3/uL (140-400) Neutrophils (%) (Auto) 59 % (31-73) Lymphocytes (%) (Auto) 28 % (24-48) Monocytes (%) (Auto) 9 % (0-9) Eosinophils (%) (Auto) 4 % (0-3) H Basophils (%) (Auto) 1 % (0-3) Neutrophils # (Auto) 6.4 x10^3uL (1.8-7.7) Lymphocytes # (Auto) 3.0 x10^3/uL (1.0-4.8) Monocytes # (Auto) 1.0 x10^3/uL (0.0-1.1) Eosinophils # (Auto) 0.4 x10^3/uL (0.0-0.7) Basophils # (Auto) 0.1 x10^3/uL (0.0-0.2) Sodium Level 138 mmol/L (136-145) Potassium Level 5.9 mmol/L (3.5-5.1) H Chloride Level 105 mmol/L (98-107) Carbon Dioxide Level 22 mmol/L (21-32) Anion Gap 11 (6-14) Blood Urea Nitrogen 40 mg/dL (7-20) H Creatinine 2.3 mg/dL (0.6-1.0) H Estimated GFR (Cockcroft-Gault) 21.6 BUN/Creatinine Ratio 17 (6-20) Glucose Level 105 mg/dL (70-99) H Calcium Level 10.5 mg/dL (8.5-10.1) H Total Bilirubin 0.4 mg/dL (0.2-1.0) Aspartate Amino Transferase (AST) 38 U/L (15-37) H Alanine Aminotransferase (ALT) 13 U/L (14-59) L Alkaline Phosphatase 93 U/L (46-116) Total Protein 8.6 g/dL (6.4-8.2) H Albumin 3.4 g/dL (3.4-5.0) Albumin/Globulin Ratio 0.7 (1.0-1.7) L Laboratory Tests 12/05/16 12:25 Laboratory Tests 12/05/16 12:25 EKG EKG [EKG: Normal sinus rhythm, no acute ST-T wave changes.] Radiology/Procedures Radiology/Procedures [EKG: Course & Med Decision Making Course & Med Decision Making Pertinent Labs and Imaging studies reviewed. (See chart for details) [Hyperkalemia in the setting of chronic kidney disease and UTI. Patient is not on potassium replacement. VS stable. Kayexalate given. Dr. Marquez to admit. Hugo Disclaimer Hugo Disclaimer This electronic medical record was generated, in whole or in part, using a voice recognition dictation system. GABRIELA ATKINSON DO Dec 05, 2016 12:28
[2016-12-05] MEDS ORDERED: KETOROLAC TROMETHAMINE 60 MG/2 ML INJ. IM ONE (12:30)
[2016-12-05] MEDS ORDERED: IV NORMAL SALINE 1000ML BAG 1,000 ML IV ONE (12:45)
[2016-12-05 12:49] LABS: BILIRUBIN,URINE NEGATIVE (NEG); GLUCOSE,URINE NEGATIVE (NEG); NITRITE,URINE NEGATIVE (NEG); PROTEIN,URINE >=300 mg/dL (NEG-TRACE); UROBILINOGEN,URINE 0.2 mg/dL (0.2 mg/dL)
[2016-12-05 13:00] LABS: BASO # 0.1 x10^3/uL (0.0-0.2); BASO % 1 % (0-3); EOS % 4 % (0-3); HEMATOCRIT 42.5 % (36.0-47.0); LYMPH % 28 % (24-48); MEAN CORPUSCULAR HEMOGLOBIN 30 pg (25-35); MEAN CORPUSCULAR HGB CONC 33 g/dL (31-37); MEAN CORPUSCULAR VOLUME 90 fL (79-100); MONO % 9 % (0-9); NEUT % 59 % (31-73); PLATELET COUNT 400 x10^3/uL (140-400); RED BLOOD COUNT 4.73 x10^6/uL (3.50-5.40); RED CELL DISTRIBUTION WIDTH 15.3 % (11.5-14.5); WHITE BLOOD COUNT 10.8 x10^3/uL (4.0-11.0)
[2016-12-05 13:06] LABS: CALCIUM 10.5 mg/dL (8.5-10.1); CREATININE 2.3 mg/dL (0.6-1.0); GFR 21.6
[2016-12-05 13:12] LABS: ALBUMIN 3.4 g/dL (3.4-5.0); ALBUMIN/GLOBULIN RATIO 0.7 (1.0-1.7); TOTAL BILIRUBIN 0.4 mg/dL (0.2-1.0); TOTAL PROTEIN 8.6 g/dL (6.4-8.2)
[2016-12-05 13:14] LABS: BACTERIA,URINE MANY /HPF (0-FEW); RBC,URINE >40 /HPF (0-2); WBC,URINE TNTC /HPF (0-4)
[2016-12-05] MEDS ORDERED: SODIUM POLYSTYRENE SULFONATE 15 GM/60 ML ORAL.SUSP. PO ONE (13:15)
[2016-12-05 13:17] LABS: POTASSIUM 5.9 mmol/L (3.5-5.1)
[2016-12-05] MEDS ORDERED: oxyCODONE/APAP 10/325 1 TAB TABLET PO ONE (13:30)
[2016-12-05] MEDS ORDERED: ONDANSETRON PF 4 MG/2 ML VIAL. IV PRN (13:30)
--- NOTE | 2016-12-05 13:52 | ACF ---
Admit Criteria Forms Admit Criteria Forms Admit Criteria Forms HYPONATREMIA; HYPERNATREMIA; HYPOKALEMIA; HYPERKALEMIA; HYPOCALCEMIA; HYPERCALCEMIA Clinical Indications for Inpatient Care (Place 'X' for any and all applicable criteria): Ongoing inpatient care may be indicated for ANY ONE of the following [G](1)(2)(3 )(5): [ ]I. Hyponatremia with ANY ONE of the following: [ ]a) Sodium less than 130 mEq/L (mmol/L) (new) (6)(22) [ ]b) Sodium less than 135 mEq/L (mmol/L) with ANY ONE of the following: [ ]i) Severe medical etiology requiring inpatient management (eg, heart failure, hypovolemia) [ ]ii) Altered mental status [ ]iii) Seizures [ ]II. Hypernatremia with ANY ONE of the following: [ ]a) Sodium greater than 155 mEq/L (mmol/L) [ ]b) Sodium greater than 150 mEq/L (mmol/L) with ANY ONE of the following: [ ] i) Altered mental status [ ]ii) Seizures [ ]iii) Severe medical etiology (eg, hypovolemia, diabetes insipidus) [ ]iv) Severe weakness [ ]v) Severe medical etiology (eg, hemolysis, infection, drug overdose) [ ]III. Hypokalemia with ANY ONE of the following: [ ]a) Potassium less than 2.5 mEq/L (mmol/L) despite outpatient and emergency treatment [ ]b) Potassium less than 3.0 mEq/L (mmol/L) with ANY ONE of the following: [ ]i) Weakness [ ]ii) Cardiac abnormality (eg, arrhythmia, conduction disturbance) [ ]iii) Cardiac ischemia [ ]iv) Ileus [ ]v) Ongoing medical cause requiring inpatient management. ( e.g., acute renal wasting, SIADH) [ ]vi) Other severe symptoms [X] IV. Hyperkalemia with ANY ONE of the following: [ ]a) Potassium greater than 6.5 mEq/L (mmol/L) [X]b) Potassium greater than 5 mEq/L (mmol/L) with ANY ONE of the following: [ ]i) Severe ECG findings [H] [X]ii) Acute worsening of renal failure (creatinine greater than 2.5 mg/dL (221 micromoles/L) or significant elevation for age and size) [ ] V. Hypocalcemia with ANY ONE of the following: [ ]a) Calcium less than 7 mg/dL (1.75 mmol/L) despite outpatient and emergency treatment(19) [ ]b) Calcium less than 8 mg/dL (2 mmol/L) with significant symptoms or findings; examples include: [ ]i) Cardiac abnormality (eg, arrhythmia or conduction disturbance) [ ]ii) Altered mental status [ ]iii) Seizures [ ]iv) Breathing difficulty [ ]v) Muscle spasms [ ]. Hypercalcemia with ANY ONE of the following: [ ]a) Calcium greater than 14 mg/dL (3.5 mmol/L) [ ]b) Calcium greater than 12 mg/dL (3 mmol/L) with ANY ONE of the following: [ ]i) Significant dehydration or hypovolemia as indicated by ANY ONE of the following(2): [ ]1. Clinically significant dehydration as indicated by ANY ONE of the following: [ ]A. Acute loss of weight from baseline (5% of body weight in adults, 9% in pediatric patients) [ ]B. Hemodynamic instability [ ]C. Acute renal failure [ ]D. Serum sodium greater than 150 mEq/L (mmol/L) [ ]2) Dehydration that is persistent indicated by ALL of the following: [ ]A. Oral rehydration therapy not tolerated or insufficient to adequately correct dehydration [ ]B. Appropriate intravenous treatment (eg, fluids ) does not readily correct dehydration ie, after 12 to 24 hours of treatment) [ ]ii) Significant symptoms or findings; examples include: [ ]1) Altered mental status [ ]2) Cardiac abnormality (eg, arrhythmia, conduction disturbance) [ ]3) Cardiac abnormality (eg, arrhythmia, conduction disturbance) The original [facility] content created by [employer] has been revised. The portions of the content which have been revised are identified through the use of italic text or in bold, and [facility] has neither reviewed nor approved the modified material. All other unmodified content is copyright [facility] Please see references footnoted in the original [employer] edition 2016 RORY PUCKETT Dec 05, 2016 13:52
[2016-12-05 14:45] VITALS: BP 130/93
[2016-12-05] MEDS: oxyCODONE IR 5 MG TABLET PO PRN ×2 (16:25→21:08)
[2016-12-05] MEDS: IV NORMAL SALINE 1000ML BAG 1,000 ML IV SCH (16:26)
--- NOTE | 2016-12-05 16:27 | EKG ---
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
[2016-12-05 17:49] VITALS: BP 130/93
[2016-12-05 19:00] VITALS: BP 124/69
[2016-12-05 21:09] LABS: POTASSIUM 4.2 mmol/L (3.5-5.1)
[2016-12-05 23:00] VITALS: BP 102/75
--- NOTE | 2016-12-05 23:02 | HP ---
ADMIT DATE: 12/05/2016 CHIEF COMPLAINT: Abdominal pain, weakness. I tripped over my dog. HISTORY OF PRESENT ILLNESS: The patient is a pleasant 61-year-old female well known to our service. We admit her every ____. At this time, she presents with after a falling over her dog. She had some pain. We hope to discharge her, but her potassium levels are presently high at 5.9, I have discussed the case with the ER physician. We are going to admit the patient. We are going to consult Nephrology. It should be noted that she rates her symptoms at 9/10. She has associated weakness. She also has an elevated creatinine of 2.4 with acute renal failure. PAST MEDICAL HISTORY: Chronic pain, narcotic dependence, previous alcohol issues, C. difficile, sepsis, respiratory failure, previous tobacco abuse, depression and anxiety. ALLERGIES: None. FAMILY HISTORY: Diabetes. SOCIAL HISTORY: She does not drink or smoke. She quit smoking and drinking, no drugs. MEDICATIONS: Reviewed, please refer to the MRAD. REVIEW OF SYSTEMS: GENERAL: No history of weight change, weakness or fevers. SKIN: No bruising, hair changes or rashes. EYES: No blurred, double or loss of vision. NOSE AND THROAT: No history of nosebleeds, hoarseness or sore throat. HEART: No history of palpitations, chest pain or shortness of breath on exertion. LUNGS: Denies cough, hemoptysis, wheezing or shortness of breath. GASTROINTESTINAL: She complains of abdominal pain. GENITOURINARY: No history of frequency, urgency, hesitancy or nocturia. NEUROLOGIC: Denies history of numbness, tingling, tremor or weakness. PSYCHIATRIC: No history of panic, anxiety or depression. ENDOCRINE: No history of heat or cold intolerance, polyuria or polydipsia. EXTREMITIES: Denies muscle weakness, joint pain, pain on walking or stiffness. PHYSICAL EXAMINATION: VITAL SIGNS: Temperature afebrile, pulse 92, respirations 18, blood pressure 136/82. GENERAL: She is alert, cooperative, flat affect, somewhat depressed, which is her baseline. HEART: Normal S1, S2. LUNGS: Clear. ABDOMEN: Soft. Decreased bowel sounds, tender. EXTREMITIES: Trace edema. SKIN: No rashes. PSYCHIATRIC: She is depressed. VASCULAR: Good capillary refill. ENDOCRINE: No thyromegaly. LYMPHATICS: No cervical nodes. HEMATOPOIETIC: No bruising. ASSESSMENT AND PLAN: Hyperkalemia and acute on chronic renal failure. The patient will be admitted. We will consult Nephrology. IV fluids, we will consider Kayexalate therapy if Nephrology agrees, frequent labs, home meds, PT, OT. ZA MAHONEY DO DR: CORY/hal JOB#: [id number] / [id number]
[2016-12-06] MEDS: IV NORMAL SALINE 1000ML BAG 1,000 ML IV SCH (02:45)
[2016-12-06] MEDS: oxyCODONE IR 5 MG TABLET PO PRN (02:45)
[2016-12-06 05:10] LABS: BASO # 0.1 x10^3/uL (0.0-0.2); BASO % 1 % (0-3); EOS % 6 % (0-3); HEMATOCRIT 33.3 % (36.0-47.0); HEMOGLOBIN 10.8 g/dL (12.0-15.5); LYMPH # 2.1 x10^3/uL (1.0-4.8); LYMPH % 34 % (24-48); MEAN CORPUSCULAR HEMOGLOBIN 29 pg (25-35); MEAN CORPUSCULAR HGB CONC 33 g/dL (31-37); MEAN CORPUSCULAR VOLUME 89 fL (79-100); MONO % 13 % (0-9); NEUT % 47 % (31-73); PLATELET COUNT 268 x10^3/uL (140-400); RED BLOOD COUNT 3.74 x10^6/uL (3.50-5.40); RED CELL DISTRIBUTION WIDTH 15.1 % (11.5-14.5); WHITE BLOOD COUNT 6.3 x10^3/uL (4.0-11.0)
[2016-12-06 05:34] LABS: CALCIUM 9.1 mg/dL (8.5-10.1); CREATININE 2.5 mg/dL (0.6-1.0); GFR 19.6; POTASSIUM 4.3 mmol/L (3.5-5.1)
[2016-12-06 07:41] VITALS: BP 110/66
[2016-12-06] MEDS ORDERED: ALPR0.5T6 PO (09:46)
[2016-12-06] MEDS ORDERED: ESOM40CA PO (09:46)
[2016-12-06 10:51] VITALS: BP_SYST 120; BP_SYST 95; BP_DIAS 57; BP_DIAS 82
[2016-12-06] MEDS: oxyCODONE/APAP 10/325 1 TAB TABLET PO PRN ×3 (11:17→21:09)
[2016-12-06] MEDS: PANTOPRAZOLE 40 MG TABLET.DR. PO SCH (11:17)
[2016-12-06] MEDS: METOCLOPRAMIDE 5 MG TABLET. PO SCH ×3 (11:17→21:09)
[2016-12-06] MEDS: ESCITALOPRAM 10 MG TABLET. PO SCH (11:18)
[2016-12-06] MEDS ORDERED: LISINOPRIL 10 MG TABLET PO SCH (11:30)
--- NOTE | 2016-12-06 13:49 | PDOC2 ---
GI CONSULT Reason For Consult: H/o C Diff HPI: HPI: 61 y/o female who we have seen many times for diarrhea, abd pain, n/v, and odynophagia. Past GI workup: EGD 07/2016: acute esophagitis (entire esophagus), small hiatal hernia. Colonoscopy 2013; colon biopsies were negative for microscopic colitis. GET 03/2015: delayed w/ T1/2 time of 1203 min. Needs a refill of Reglan QIDACHS. HIDA 03/2015 was normal w/ normal gallbladder ejection fraction. H/o GERD, controlled best w/ Nexium QD. H/o recurrent C Diff, treated w/ vanco, chronic diarrhea improved w/ cholestyramine. On Saturday, her dog Mega who is 120 pounds, knocked her over while she was talking to her neighbor. She landed on her right side, hurting her knee and shoulder while rolling down a hill. Was evaluated in the ER and sent home. On Saturday (yesterday), she began having a burning sensation in her lower abdomen and realized she hadn't urinated in at least a day. Labs: K+ 5.9 ( improved), Cr 2.5. On Rocephin for UTI. Actually has been doing okay GI-pink. Decreased appetite here, attributes to not liking renal diet. Vomited x 1 on Saturday w/ knee pain after fall. Saw PCP recently for HTN, was started on lisinopril and Xanax TID. Stress at home, says daughter and family are moving in and "redoing the house." Diarrhea hasn' t been bothersome, but has had several loose stools since taking Kayexalate. C Diff not ordered yet. PMH: PMH: HTN, GERD, gastroparesis, C Diff (treated w/ vanco), CKD and urinary retention/ UTIs, anemia, anxiety/depression, OA, fibromyalgia, knee replacement, tubal ligation, back surgery, foot surgery FH: Family History: No pertinent hx, CVA Social History: ALCOHOL: heavy Drugs: None ROS: GEN: Denies fevers, chills, sweats HEENT: Denies blurred vision, sore throat CV: Denies chest pain RESP: Denies shortness of air, cough GI: Per HPI : +urinary retention ENDO: Denies weight changes NEURO:+anxiety MSK: right knee and shoulder pain SKIN: Denies jaundice, pruritus Vitals: Vitals: Vital Signs Date Time Temp Pulse Resp B/P (MAP) Pulse Ox O2 Delivery O2 Flow Rate FiO2 12/06/16 12:28 95 Room Air 12/06/16 11:17 88 120/82 12/06/16 10:51 98.3 18 98.3 Labs: Labs: Laboratory Tests Test 12/05/16 20:50 12/06/16 04:30 Sodium Level 144 mmol/L (136-145) 142 mmol/L (136-145) Potassium Level 4.2 mmol/L (3.5-5.1) 4.3 mmol/L (3.5-5.1) Chloride Level 110 mmol/L (98-107) 110 mmol/L (98-107) Carbon Dioxide Level 23 mmol/L (21-32) 23 mmol/L (21-32) Anion Gap 11 (6-14) 9 (6-14) White Blood Count 6.3 x10^3/uL (4.0-11.0) Red Blood Count 3.74 x10^6/uL (3.50-5.40) Hemoglobin 10.8 g/dL (12.0-15.5) Hematocrit 33.3 % (36.0-47.0) Mean Corpuscular Volume 89 fL (79-100) Mean Corpuscular Hemoglobin 29 pg (25-35) Mean Corpuscular Hemoglobin Concent 33 g/dL (31-37) Red Cell Distribution Width 15.1 % (11.5-14.5) Platelet Count 268 x10^3/uL (140-400) Neutrophils (%) (Auto) 47 % (31-73) Lymphocytes (%) (Auto) 34 % (24-48) Monocytes (%) (Auto) 13 % (0-9) Eosinophils (%) (Auto) 6 % (0-3) Basophils (%) (Auto) 1 % (0-3) Neutrophils # (Auto) 2.9 x10^3uL (1.8-7.7) Lymphocytes # (Auto) 2.1 x10^3/uL (1.0-4.8) Monocytes # (Auto) 0.8 x10^3/uL (0.0-1.1) Eosinophils # (Auto) 0.4 x10^3/uL (0.0-0.7) Basophils # (Auto) 0.1 x10^3/uL (0.0-0.2) Blood Urea Nitrogen 40 mg/dL (7-20) Creatinine 2.5 mg/dL (0.6-1.0) Estimated GFR (Cockcroft-Gault) 19.6 Glucose Level 98 mg/dL (70-99) Calcium Level 9.1 mg/dL (8.5-10.1) Allergies: Coded Allergies: levofloxacin (Verified Allergy, Intermediate, 08/16/16) TOLERATES CIPRO morphine (Verified Allergy, Intermediate, tolerates Dilaudid, 07/26/16) I S O L A T I O N *CONTACT* (Verified Allergy, Unknown, 07/26/16) mrsa diphenhydramine HCl (Verified Adverse Reaction, Intermediate, "Jittery on the inside", 07/26/16) Medications: Current Medications Medications (Trade) Dose Ordered Sig/Taz Route PRN Reason Start Time Stop Time Status Last Admin Dose Admin Ceftriaxone Sodium 50 ml @ 100 mls/hr 1X ONCE IV 12/05/16 13:45 12/05/16 14:14 DC 12/05/16 13:43 Oxycodone HCl (Roxicodone) 5 mg PRN Q4HRS PRN PO PAIN 12/05/16 16:00 12/06/16 02:45 Escitalopram Oxalate (Lexapro) 10 mg DAILY PO 12/06/16 11:30 12/06/16 11:18 Lisinopril (Prinivil) 10 mg DAILY PO 12/06/16 11:30 12/06/16 11:17 Metoclopramide HCl (Reglan) 5 mg QIDACHS PO 12/06/16 11:30 12/06/16 11:17 Oxycodone/ Acetaminophen (Percocet 10/325) 1 tab PRN Q6HRS PRN PO PAIN 12/06/16 10:30 12/06/16 11:17 Pantoprazole Sodium (Protonix) 40 mg DAILYAC PO 12/06/16 11:30 12/06/16 11:17 Imaging: Imaging: - PE: GEN: NAD HEENT: Atraumatic, PERRL LUNGS: CTAB HEART: RRR ABD: NABS, S/ND/NT EXTREMITY: No edema SKIN: No rashes, no jaundice NEURO/PSYCH: A & O 3 A/P: A/P: UTI, urinary retention, CKD H/o C Diff -diarrhea not bothersome recently, has had loose stools after Kayexalate H/o gastroparesis, GERD, diarrhea, n/v - stable -- Await C Diff test. Continue Reglan and PPI. *She says she needs a Reglan Rx upon discharge. ANNE-MARIE GARCIA Dec 06, 2016 13:49
[2016-12-06] MEDS: ALPRAZolam 0.5 MG TABLET PO SCH ×2 (14:46→21:09)
[2016-12-06 14:54] VITALS: BP 158/89
[2016-12-06 14:57] VITALS: BP 115/76
[2016-12-06 19:00] VITALS: BP 105/72
--- NOTE | 2016-12-06 22:53 | PDOC ---
PROGRESS NOTES Chief Complaint Chief Complaint Hyperkalemia UTI HTN, GERD, gastroparesis, C Diff (treated w/ vanco), CKD and urinary retention/ UTIs, anemia, anxiety/depression, OA, fibromyalgia, knee replacement, tubal ligation, back surgery, foot surgery History of Present Illness History of Present Illness Resting with NAD Labs noted Notes reviewed Vitals Vitals Vital Signs Date Time Temp Pulse Resp B/P (MAP) Pulse Ox O2 Delivery O2 Flow Rate FiO2 12/06/16 22:16 17 Room Air 12/06/16 19:00 98.2 79 105/72 (83) 95 98.2 Physical Exam General: No acute distress Heart: Regular rate, Normal S1, Normal S2, No murmurs Lungs: Clear Abdomen: Normal bowel sounds Extremities: No clubbing, No cyanosis Skin: No breakdown Labs LABS Laboratory Tests Test 12/06/16 04:30 White Blood Count 6.3 x10^3/uL (4.0-11.0) Red Blood Count 3.74 x10^6/uL (3.50-5.40) Hemoglobin 10.8 g/dL (12.0-15.5) Hematocrit 33.3 % (36.0-47.0) Mean Corpuscular Volume 89 fL (79-100) Mean Corpuscular Hemoglobin 29 pg (25-35) Mean Corpuscular Hemoglobin Concent 33 g/dL (31-37) Red Cell Distribution Width 15.1 % (11.5-14.5) Platelet Count 268 x10^3/uL (140-400) Neutrophils (%) (Auto) 47 % (31-73) Lymphocytes (%) (Auto) 34 % (24-48) Monocytes (%) (Auto) 13 % (0-9) Eosinophils (%) (Auto) 6 % (0-3) Basophils (%) (Auto) 1 % (0-3) Neutrophils # (Auto) 2.9 x10^3uL (1.8-7.7) Lymphocytes # (Auto) 2.1 x10^3/uL (1.0-4.8) Monocytes # (Auto) 0.8 x10^3/uL (0.0-1.1) Eosinophils # (Auto) 0.4 x10^3/uL (0.0-0.7) Basophils # (Auto) 0.1 x10^3/uL (0.0-0.2) Sodium Level 142 mmol/L (136-145) Potassium Level 4.3 mmol/L (3.5-5.1) Chloride Level 110 mmol/L (98-107) Carbon Dioxide Level 23 mmol/L (21-32) Anion Gap 9 (6-14) Blood Urea Nitrogen 40 mg/dL (7-20) Creatinine 2.5 mg/dL (0.6-1.0) Estimated GFR (Cockcroft-Gault) 19.6 Glucose Level 98 mg/dL (70-99) Calcium Level 9.1 mg/dL (8.5-10.1) Review of Systems Review of Systems co weak co nausea Assessment and Plan Assessmemt and Plan Problems Medical Problems: (1) Chronic kidney disease Status: Acute Hyperkalemia UTI HTN, GERD, gastroparesis, C Diff (treated w/ vanco), CKD and urinary retention/ UTIs, anemia, anxiety/depression, OA, fibromyalgia, knee replacement, tubal ligation, back surgery, foot surgery Plan C-Diff precautions Recheck labs PTOT Narcotics Zofran Problems: Comment Review of Relevant I have reviewed the following items blade (where applicable) has been applied. Labs Laboratory Tests Test 12/05/16 12:20 12/05/16 12:25 12/05/16 20:50 12/06/16 04:30 Urine Collection Type U cath Urine Color Yellow Urine Clarity Turbid Urine pH 6.0 Urine Specific [place] 1.015 Urine Protein >=300 mg/dL (NEG-TRACE) Urine Glucose (UA) Negative mg/dL (NEG) Urine Ketones (Stick) Negative mg/dL (NEG) Urine Blood Large (NEG) Urine Nitrite Negative (NEG) Urine Bilirubin Negative (NEG) Urine Urobilinogen Dipstick 0.2 mg/dL (0.2 mg/dL) Urine Leukocyte Esterase Large (NEG) Urine RBC >40 /HPF (0-2) Urine WBC Tntc /HPF (0-4) Urine Bacteria Many /HPF (0-FEW) White Blood Count 10.8 x10^3/uL (4.0-11.0) 6.3 x10^3/uL (4.0-11.0) Red Blood Count 4.73 x10^6/uL (3.50-5.40) 3.74 x10^6/uL (3.50-5.40) Hemoglobin 14.0 g/dL (12.0-15.5) 10.8 g/dL (12.0-15.5) Hematocrit 42.5 % (36.0-47.0) 33.3 % (36.0-47.0) Mean Corpuscular Volume 90 fL (79-100) 89 fL (79-100) Mean Corpuscular Hemoglobin 30 pg (25-35) 29 pg (25-35) Mean Corpuscular Hemoglobin Concent 33 g/dL (31-37) 33 g/dL (31-37) Red Cell Distribution Width 15.3 % (11.5-14.5) 15.1 % (11.5-14.5) Platelet Count 400 x10^3/uL (140-400) 268 x10^3/uL (140-400) Neutrophils (%) (Auto) 59 % (31-73) 47 % (31-73) Lymphocytes (%) (Auto) 28 % (24-48) 34 % (24-48) Monocytes (%) (Auto) 9 % (0-9) 13 % (0-9) Eosinophils (%) (Auto) 4 % (0-3) 6 % (0-3) Basophils (%) (Auto) 1 % (0-3) 1 % (0-3) Neutrophils # (Auto) 6.4 x10^3uL (1.8-7.7) 2.9 x10^3uL (1.8-7.7) Lymphocytes # (Auto) 3.0 x10^3/uL (1.0-4.8) 2.1 x10^3/uL (1.0-4.8) Monocytes # (Auto) 1.0 x10^3/uL (0.0-1.1) 0.8 x10^3/uL (0.0-1.1) Eosinophils # (Auto) 0.4 x10^3/uL (0.0-0.7) 0.4 x10^3/uL (0.0-0.7) Basophils # (Auto) 0.1 x10^3/uL (0.0-0.2) 0.1 x10^3/uL (0.0-0.2) Sodium Level 138 mmol/L (136-145) 144 mmol/L (136-145) 142 mmol/L (136-145) Potassium Level 5.9 mmol/L (3.5-5.1) 4.2 mmol/L (3.5-5.1) 4.3 mmol/L (3.5-5.1) Chloride Level 105 mmol/L (98-107) 110 mmol/L (98-107) 110 mmol/L (98-107) Carbon Dioxide Level 22 mmol/L (21-32) 23 mmol/L (21-32) 23 mmol/L (21-32) Anion Gap 11 (6-14) 11 (6-14) 9 (6-14) Blood Urea Nitrogen 40 mg/dL (7-20) 40 mg/dL (7-20) Creatinine 2.3 mg/dL (0.6-1.0) 2.5 mg/dL (0.6-1.0) Estimated GFR (Cockcroft-Gault) 21.6 19.6 BUN/Creatinine Ratio 17 (6-20) Glucose Level 105 mg/dL (70-99) 98 mg/dL (70-99) Calcium Level 10.5 mg/dL (8.5-10.1) 9.1 mg/dL (8.5-10.1) Total Bilirubin 0.4 mg/dL (0.2-1.0) Aspartate Amino Transf (AST/SGOT) 38 U/L (15-37) Alanine Aminotransferase (ALT/SGPT) 13 U/L (14-59) Alkaline Phosphatase 93 U/L (46-116) Total Protein 8.6 g/dL (6.4-8.2) Albumin 3.4 g/dL (3.4-5.0) Albumin/Globulin Ratio 0.7 (1.0-1.7) Laboratory Tests Test 12/06/16 04:30 White Blood Count 6.3 x10^3/uL (4.0-11.0) Red Blood Count 3.74 x10^6/uL (3.50-5.40) Hemoglobin 10.8 g/dL (12.0-15.5) Hematocrit 33.3 % (36.0-47.0) Mean Corpuscular Volume 89 fL (79-100) Mean Corpuscular Hemoglobin 29 pg (25-35) Mean Corpuscular Hemoglobin Concent 33 g/dL (31-37) Red Cell Distribution Width 15.1 % (11.5-14.5) Platelet Count 268 x10^3/uL (140-400) Neutrophils (%) (Auto) 47 % (31-73) Lymphocytes (%) (Auto) 34 % (24-48) Monocytes (%) (Auto) 13 % (0-9) Eosinophils (%) (Auto) 6 % (0-3) Basophils (%) (Auto) 1 % (0-3) Neutrophils # (Auto) 2.9 x10^3uL (1.8-7.7) Lymphocytes # (Auto) 2.1 x10^3/uL (1.0-4.8) Monocytes # (Auto) 0.8 x10^3/uL (0.0-1.1) Eosinophils # (Auto) 0.4 x10^3/uL (0.0-0.7) Basophils # (Auto) 0.1 x10^3/uL (0.0-0.2) Sodium Level 142 mmol/L (136-145) Potassium Level 4.3 mmol/L (3.5-5.1) Chloride Level 110 mmol/L (98-107) Carbon Dioxide Level 23 mmol/L (21-32) Anion Gap 9 (6-14) Blood Urea Nitrogen 40 mg/dL (7-20) Creatinine 2.5 mg/dL (0.6-1.0) Estimated GFR (Cockcroft-Gault) 19.6 Glucose Level 98 mg/dL (70-99) Calcium Level 9.1 mg/dL (8.5-10.1) Microbiology 12/05/16 Blood Culture - Preliminary, Resulted NO GROWTH AFTER 1 DAY 12/05/16 Urine Culture - Preliminary, Resulted 12/05/16 Urine Culture Result 1 (DARCIE) - Preliminary, Resulted Medications Current Medications Ketorolac Tromethamine (Toradol Im) 60 mg 1X ONCE IM Last administered on 13:02; Start 12/05/16 at 12:30; Stop 12/05/16 at 12:31; Status DC Sodium Chloride 1,000 ml @ 1,000 mls/hr 1X ONCE IV Last administered on 13:01; Start 12/05/16 at 12:45; Stop 12/05/16 at 13:44; Status DC Sodium Polystyrene Sulfonate (Kayexalate) 30 gm 1X ONCE PO Last administered on 12/05/16 13:44; Start 12/05/16 at 13:15; Stop 12/05/16 at 13:16; Status DC Ceftriaxone Sodium 1 gm/ Sodium Chloride 50 ml @ 100 mls/hr Q24H IV Last administered on 12/06/16 14:46; Start 12/06/16 at 14:00 Oxycodone/ Acetaminophen (Percocet 10/325) 1 tab 1X ONCE PO Last administered on 12/05/16 13:43; Start 12/05/16 at 13:30; Stop 12/05/16 at 13:32; Status DC Ceftriaxone Sodium 50 ml @ 100 mls/hr 1X ONCE IV Last administered on 13:43; Start 12/05/16 at 13:45; Stop 12/05/16 at 14:14; Status DC Ondansetron HCl (Zofran) 4 mg PRN Q8HRS PRN IV NAUSEA/VOMITING; Start 12/05/16 at 13:30; Stop 12/06/16 at 13:29; Status DC Sodium Chloride 1,000 ml @ 75 mls/hr [id number] IV Last administered on 12/06/16 02:45; Start 12/05/16 at 13:27; Stop 12/06/16 at 13:26; Status DC Oxycodone HCl (Roxicodone) 5 mg PRN Q4HRS PRN PO PAIN Last administered on 02:45; Start 12/05/16 at 16:00 Alprazolam (Xanax) 0.5 mg TID PO Last administered on 12/06/16 21:09; Start 12/06/16 at 14:00 Escitalopram Oxalate (Lexapro) 10 mg DAILY PO Last administered on 12/06/16 11: 18; Start 12/06/16 at 11:30 Lisinopril (Prinivil) 10 mg DAILY PO Last administered on 12/06/16 11:17; Start 12/06/16 at 11:30 Metoclopramide HCl (Reglan) 5 mg QIDACHS PO Last administered on 12/06/16 21:09 ; Start 12/06/16 at 11:30 Oxycodone/ Acetaminophen (Percocet 10/325) 1 tab PRN Q6HRS PRN PO PAIN Last administered on 12/06/16 21:09; Start 12/06/16 at 10:30 Pantoprazole Sodium (Protonix) 40 mg DAILYAC PO Last administered on 12/06/16 11:17; Start 12/06/16 at 11:30 Active Scripts Active Percocet 10-325 Mg Tablet (Oxycodone/Acetaminophen) 1 Each Tablet 1 Tab PO Q4- 6HRS Reglan (Metoclopramide Hcl) 10 Mg Tablet 10 Ml PO QID Escitalopram Oxalate 10 Mg Tablet 1 Tab PO DAILY Reported Nexium Capsule (Esomeprazole Magnesium) 40 Mg Capsule.dr 1 Cap PO DAILY Alprazolam 0.5 Mg Tablet 1 Tab PO TID Lisinopril 10 Mg Tablet 1 Tab PO DAILY Vitals/I & O Vital Sign - Last 24 Hours 12/05/16 12/06/16 12/06/16 12/06/16 23:00 02:45 03:30 07:41 Temp 98.3 98.2 98.3 98.2 Pulse 82 70 Resp 18 17 18 B/P (MAP) 102/75 (84) 110/66 (81) Pulse Ox 97 96 O2 Delivery Room Air Room Air Room Air Room Air 12/06/16 12/06/16 12/06/16 12/06/16 08:00 10:51 11:17 12:28 Temp 98.3 98.3 Pulse 88 88 Resp 18 B/P (MAP) 120/82 (95) 120/82 Pulse Ox 95 95 O2 Delivery Room Air Room Air 12/06/16 12/06/16 12/06/16 12/06/16 14:57 19:00 20:00 21:09 Temp 98.1 98.2 98.1 98.2 Pulse 79 79 Resp 16 20 19 B/P (MAP) 115/76 (89) 105/72 (83) Pulse Ox 98 95 O2 Delivery Room Air Room Air Room Air Room Air 12/06/16 22:16 Resp 17 O2 Delivery Room Air Intake and Output 12/05/16 12/05/16 12/06/16 15:00 23:00 07:00 Intake Total 240 ml 650 ml Output Total 3 ml Balance 237 ml 650 ml ZA MAHONEY III DO Dec 06, 2016 22:53
[2016-12-06 23:00] VITALS: BP 107/67
--- NOTE | 2016-12-06 23:52 | PDOC2 ---
CONSULT Date of Consult Date of Consult DATE: 12/06/16 TIME: 1300 Reason for Consult Reason for Consult: ARF/CKD History of Present Illness Reason for Visit: HISTORY OF PRESENT ILLNESS: The patient is a pleasant 61-year-old female well known to our service. At this time, she presents with after a falling over her dog. She had some pain. Non specific c/oWeak and tired. No CP Has stage III CKD Baseline Cr about 1.8 She also has an elevated creatinine of 2.4 with acute renal failure. Past Medical History Past Medical History PAST MEDICAL HISTORY: Chronic pain, narcotic dependence, previous alcohol issues, C. difficile, sepsis, respiratory failure, previous tobacco abuse, depression and anxiety. Cardiovascular: HTN Heme/Onc: Anemia NOS Psych: Anxiety, Depression Rheumatologic: Fibromyalgia Infectious disease: Other Renal/: Chronic renal insuff, Other Past Surgical History Past Surgical History: Total knee replacement, Tubal Ligation, Other Family History Family History: Stroke Social History ALCOHOL: heavy Drugs: None Lives: Alone Current Problem List Problem List Problems Medical Problems: (1) Chronic kidney disease Status: Acute Current Medications Current Medications Current Medications Ketorolac Tromethamine (Toradol Im) 60 mg 1X ONCE IM Last administered on 13:02; Start 12/05/16 at 12:30; Stop 12/05/16 at 12:31; Status DC Sodium Chloride 1,000 ml @ 1,000 mls/hr 1X ONCE IV Last administered on 13:01; Start 12/05/16 at 12:45; Stop 12/05/16 at 13:44; Status DC Sodium Polystyrene Sulfonate (Kayexalate) 30 gm 1X ONCE PO Last administered on 12/05/16 13:44; Start 12/05/16 at 13:15; Stop 12/05/16 at 13:16; Status DC Ceftriaxone Sodium 1 gm/ Sodium Chloride 50 ml @ 100 mls/hr Q24H IV Last administered on 12/06/16 14:46; Start 12/06/16 at 14:00 Oxycodone/ Acetaminophen (Percocet 10/325) 1 tab 1X ONCE PO Last administered on 12/05/16 13:43; Start 12/05/16 at 13:30; Stop 12/05/16 at 13:32; Status DC Ceftriaxone Sodium 50 ml @ 100 mls/hr 1X ONCE IV Last administered on 13:43; Start 12/05/16 at 13:45; Stop 12/05/16 at 14:14; Status DC Ondansetron HCl (Zofran) 4 mg PRN Q8HRS PRN IV NAUSEA/VOMITING; Start 12/05/16 at 13:30; Stop 12/06/16 at 13:29; Status DC Sodium Chloride 1,000 ml @ 75 mls/hr [id number] IV Last administered on 12/06/16 02:45; Start 12/05/16 at 13:27; Stop 12/06/16 at 13:26; Status DC Oxycodone HCl (Roxicodone) 5 mg PRN Q4HRS PRN PO PAIN Last administered on 02:45; Start 12/05/16 at 16:00 Alprazolam (Xanax) 0.5 mg TID PO Last administered on 12/06/16 21:09; Start 12/06/16 at 14:00 Escitalopram Oxalate (Lexapro) 10 mg DAILY PO Last administered on 12/06/16 11: 18; Start 12/06/16 at 11:30 Lisinopril (Prinivil) 10 mg DAILY PO Last administered on 12/06/16 11:17; Start 12/06/16 at 11:30 Metoclopramide HCl (Reglan) 5 mg QIDACHS PO Last administered on 12/06/16 21:09 ; Start 12/06/16 at 11:30 Oxycodone/ Acetaminophen (Percocet 10/325) 1 tab PRN Q6HRS PRN PO PAIN Last administered on 12/06/16 21:09; Start 12/06/16 at 10:30 Pantoprazole Sodium (Protonix) 40 mg DAILYAC PO Last administered on 12/06/16 11:17; Start 12/06/16 at 11:30 Active Scripts Active Percocet 10-325 Mg Tablet (Oxycodone/Acetaminophen) 1 Each Tablet 1 Tab PO Q4- 6HRS Reglan (Metoclopramide Hcl) 10 Mg Tablet 10 Ml PO QID Escitalopram Oxalate 10 Mg Tablet 1 Tab PO DAILY Reported Nexium Capsule (Esomeprazole Magnesium) 40 Mg Capsule.dr 1 Cap PO DAILY Alprazolam 0.5 Mg Tablet 1 Tab PO TID Lisinopril 10 Mg Tablet 1 Tab PO DAILY Allergies Allergies: Coded Allergies: levofloxacin (Verified Allergy, Intermediate, 08/16/16) TOLERATES CIPRO morphine (Verified Allergy, Intermediate, tolerates Dilaudid, 07/26/16) I S O L A T I O N *CONTACT* (Verified Allergy, Unknown, 07/26/16) mrsa diphenhydramine HCl (Verified Adverse Reaction, Intermediate, "Jittery on the inside", 07/26/16) Physical Exam Physical Exam REVIEW OF SYSTEMS: GENERAL: No history of weight change, weakness or fevers. SKIN: No bruising, hair changes or rashes. EYES: No blurred, double or loss of vision. NOSE AND THROAT: No history of nosebleeds, hoarseness or sore throat. HEART: No history of palpitations, chest pain or shortness of breath on exertion. LUNGS: Denies cough, hemoptysis, wheezing or shortness of breath. GASTROINTESTINAL: She complains of abdominal pain. GENITOURINARY: No history of frequency, urgency, hesitancy or nocturia. NEUROLOGIC: Denies history of numbness, tingling, tremor or weakness. PSYCHIATRIC: No history of panic, anxiety or depression. ENDOCRINE: No history of heat or cold intolerance, polyuria or polydipsia. EXTREMITIES: Denies muscle weakness, joint pain, pain on walking or stiffness. PHYSICAL EXAMINATION: VITAL SIGNS: Temperature afebrile, pulse 92, respirations 18, blood pressure 136/82. GENERAL: She is alert, cooperative, flat affect, somewhat depressed, which is her baseline. HEART: Normal S1, S2. LUNGS: Clear. ABDOMEN: Soft. Decreased bowel sounds, tender. EXTREMITIES: Trace edema. SKIN: No rashes. PSYCHIATRIC: She is depressed. VASCULAR: Good capillary refill. ENDOCRINE: No thyromegaly. LYMPHATICS: No cervical nodes. HEMATOPOIETIC: No bruising. Vitals VITALS Vital Signs Date Time Temp Pulse Resp B/P (MAP) Pulse Ox O2 Delivery O2 Flow Rate FiO2 12/06/16 23:00 98.4 74 20 107/67 (80) 97 Room Air 98.4 Labs Labs Laboratory Tests Test 12/05/16 12:20 12/05/16 12:25 12/05/16 20:50 12/06/16 04:30 Urine Collection Type U cath Urine Color Yellow Urine Clarity Turbid Urine pH 6.0 Urine Specific [place] 1.015 Urine Protein >=300 mg/dL (NEG-TRACE) Urine Glucose (UA) Negative mg/dL (NEG) Urine Ketones (Stick) Negative mg/dL (NEG) Urine Blood Large (NEG) Urine Nitrite Negative (NEG) Urine Bilirubin Negative (NEG) Urine Urobilinogen Dipstick 0.2 mg/dL (0.2 mg/dL) Urine Leukocyte Esterase Large (NEG) Urine RBC >40 /HPF (0-2) Urine WBC Tntc /HPF (0-4) Urine Bacteria Many /HPF (0-FEW) White Blood Count 10.8 x10^3/uL (4.0-11.0) 6.3 x10^3/uL (4.0-11.0) Red Blood Count 4.73 x10^6/uL (3.50-5.40) 3.74 x10^6/uL (3.50-5.40) Hemoglobin 14.0 g/dL (12.0-15.5) 10.8 g/dL (12.0-15.5) Hematocrit 42.5 % (36.0-47.0) 33.3 % (36.0-47.0) Mean Corpuscular Volume 90 fL (79-100) 89 fL (79-100) Mean Corpuscular Hemoglobin 30 pg (25-35) 29 pg (25-35) Mean Corpuscular Hemoglobin Concent 33 g/dL (31-37) 33 g/dL (31-37) Red Cell Distribution Width 15.3 % (11.5-14.5) 15.1 % (11.5-14.5) Platelet Count 400 x10^3/uL (140-400) 268 x10^3/uL (140-400) Neutrophils (%) (Auto) 59 % (31-73) 47 % (31-73) Lymphocytes (%) (Auto) 28 % (24-48) 34 % (24-48) Monocytes (%) (Auto) 9 % (0-9) 13 % (0-9) Eosinophils (%) (Auto) 4 % (0-3) 6 % (0-3) Basophils (%) (Auto) 1 % (0-3) 1 % (0-3) Neutrophils # (Auto) 6.4 x10^3uL (1.8-7.7) 2.9 x10^3uL (1.8-7.7) Lymphocytes # (Auto) 3.0 x10^3/uL (1.0-4.8) 2.1 x10^3/uL (1.0-4.8) Monocytes # (Auto) 1.0 x10^3/uL (0.0-1.1) 0.8 x10^3/uL (0.0-1.1) Eosinophils # (Auto) 0.4 x10^3/uL (0.0-0.7) 0.4 x10^3/uL (0.0-0.7) Basophils # (Auto) 0.1 x10^3/uL (0.0-0.2) 0.1 x10^3/uL (0.0-0.2) Sodium Level 138 mmol/L (136-145) 144 mmol/L (136-145) 142 mmol/L (136-145) Potassium Level 5.9 mmol/L (3.5-5.1) 4.2 mmol/L (3.5-5.1) 4.3 mmol/L (3.5-5.1) Chloride Level 105 mmol/L (98-107) 110 mmol/L (98-107) 110 mmol/L (98-107) Carbon Dioxide Level 22 mmol/L (21-32) 23 mmol/L (21-32) 23 mmol/L (21-32) Anion Gap 11 (6-14) 11 (6-14) 9 (6-14) Blood Urea Nitrogen 40 mg/dL (7-20) 40 mg/dL (7-20) Creatinine 2.3 mg/dL (0.6-1.0) 2.5 mg/dL (0.6-1.0) Estimated GFR (Cockcroft-Gault) 21.6 19.6 BUN/Creatinine Ratio 17 (6-20) Glucose Level 105 mg/dL (70-99) 98 mg/dL (70-99) Calcium Level 10.5 mg/dL (8.5-10.1) 9.1 mg/dL (8.5-10.1) Total Bilirubin 0.4 mg/dL (0.2-1.0) Aspartate Amino Transf (AST/SGOT) 38 U/L (15-37) Alanine Aminotransferase (ALT/SGPT) 13 U/L (14-59) Alkaline Phosphatase 93 U/L (46-116) Total Protein 8.6 g/dL (6.4-8.2) Albumin 3.4 g/dL (3.4-5.0) Albumin/Globulin Ratio 0.7 (1.0-1.7) Laboratory Tests Test 12/06/16 04:30 White Blood Count 6.3 x10^3/uL (4.0-11.0) Red Blood Count 3.74 x10^6/uL (3.50-5.40) Hemoglobin 10.8 g/dL (12.0-15.5) Hematocrit 33.3 % (36.0-47.0) Mean Corpuscular Volume 89 fL (79-100) Mean Corpuscular Hemoglobin 29 pg (25-35) Mean Corpuscular Hemoglobin Concent 33 g/dL (31-37) Red Cell Distribution Width 15.1 % (11.5-14.5) Platelet Count 268 x10^3/uL (140-400) Neutrophils (%) (Auto) 47 % (31-73) Lymphocytes (%) (Auto) 34 % (24-48) Monocytes (%) (Auto) 13 % (0-9) Eosinophils (%) (Auto) 6 % (0-3) Basophils (%) (Auto) 1 % (0-3) Neutrophils # (Auto) 2.9 x10^3uL (1.8-7.7) Lymphocytes # (Auto) 2.1 x10^3/uL (1.0-4.8) Monocytes # (Auto) 0.8 x10^3/uL (0.0-1.1) Eosinophils # (Auto) 0.4 x10^3/uL (0.0-0.7) Basophils # (Auto) 0.1 x10^3/uL (0.0-0.2) Sodium Level 142 mmol/L (136-145) Potassium Level 4.3 mmol/L (3.5-5.1) Chloride Level 110 mmol/L (98-107) Carbon Dioxide Level 23 mmol/L (21-32) Anion Gap 9 (6-14) Blood Urea Nitrogen 40 mg/dL (7-20) Creatinine 2.5 mg/dL (0.6-1.0) Estimated GFR (Cockcroft-Gault) 19.6 Glucose Level 98 mg/dL (70-99) Calcium Level 9.1 mg/dL (8.5-10.1) Assessment/Plan Assessment/Plan A/P ARF/ATN HTN w CKD CKD III DEHYDRATION. Agree with gentle hydration. Labs I/Os Hopefully home in 1-2 days. SONG TOMLINSON MD Dec 06, 2016 23:52
[2016-12-07] MEDS: oxyCODONE IR 5 MG TABLET PO PRN (01:29)
[2016-12-07] MEDS: oxyCODONE/APAP 10/325 1 TAB TABLET PO PRN ×4 (05:27→20:39)
[2016-12-07 05:36] LABS: ALBUMIN 2.6 g/dL (3.4-5.0); ALBUMIN/GLOBULIN RATIO 0.7 (1.0-1.7); CALCIUM 9.3 mg/dL (8.5-10.1); CREATININE 2.5 mg/dL (0.6-1.0); GFR 19.6; MAGNESIUM 2.2 mg/dL (1.8-2.4); POTASSIUM 4.6 mmol/L (3.5-5.1); TOTAL BILIRUBIN 0.1 mg/dL (0.2-1.0); TOTAL PROTEIN 6.5 g/dL (6.4-8.2)
[2016-12-07 07:36] VITALS: BP 107/72
[2016-12-07] MEDS: ESCITALOPRAM 10 MG TABLET. PO SCH (07:37)
[2016-12-07] MEDS: METOCLOPRAMIDE 5 MG TABLET. PO SCH ×4 (07:37→20:38)
[2016-12-07] MEDS: PANTOPRAZOLE 40 MG TABLET.DR. PO SCH (07:37)
[2016-12-07] MEDS: ALPRAZolam 0.5 MG TABLET PO SCH ×3 (07:37→20:38)
[2016-12-07 11:00] VITALS: BP 130/92
--- NOTE | 2016-12-07 12:16 | PDOC ---
PROGRESS NOTES Chief Complaint Chief Complaint Hyperkalemia UTI HTN, with prio h/o: GERD, gastroparesis, C Diff (treated w/ vanco), CKD and urinary retention/UTIs, anemia, anxiety/depression, OA, fibromyalgia, knee replacement, tubal ligation, back surgery, foot surgery, narcotic dependance History of Present Illness History of Present Illness Seen and examined Watching TV NAD Labs noted Notes reviewed Vitals Vitals Vital Signs Date Time Temp Pulse Resp B/P (MAP) Pulse Ox O2 Delivery O2 Flow Rate FiO2 12/07/16 11:57 20 90 Room Air 12/07/16 07:36 97.6 67 107/72 (84) 97.6 Physical Exam General: No acute distress Heart: Regular rate, Normal S1, Normal S2, No murmurs Lungs: Clear Abdomen: Normal bowel sounds Extremities: No clubbing, No cyanosis Skin: No breakdown Labs LABS Laboratory Tests Test 12/07/16 03:30 Sodium Level 138 mmol/L (136-145) Potassium Level 4.6 mmol/L (3.5-5.1) Chloride Level 107 mmol/L (98-107) Carbon Dioxide Level 23 mmol/L (21-32) Anion Gap 8 (6-14) Blood Urea Nitrogen 41 mg/dL (7-20) Creatinine 2.5 mg/dL (0.6-1.0) Estimated GFR (Cockcroft-Gault) 19.6 BUN/Creatinine Ratio 16 (6-20) Glucose Level 99 mg/dL (70-99) Calcium Level 9.3 mg/dL (8.5-10.1) Phosphorus Level 5.0 mg/dL (2.6-4.7) Magnesium Level 2.2 mg/dL (1.8-2.4) Total Bilirubin 0.1 mg/dL (0.2-1.0) Aspartate Amino Transf (AST/SGOT) 13 U/L (15-37) Alanine Aminotransferase (ALT/SGPT) 12 U/L (14-59) Alkaline Phosphatase 69 U/L (46-116) Total Protein 6.5 g/dL (6.4-8.2) Albumin 2.6 g/dL (3.4-5.0) Albumin/Globulin Ratio 0.7 (1.0-1.7) Review of Systems Review of Systems co pain co weakness Assessment and Plan Assessmemt and Plan Problems Medical Problems: (1) Chronic kidney disease Status: Acute Hyperkalemia UTI HTN, with prio h/o: GERD, gastroparesis, C Diff (treated w/ vanco), CKD and urinary retention/UTIs, anemia, anxiety/depression, OA, fibromyalgia, knee replacement, tubal ligation, back surgery, foot surgery, narcotic dependance Plan IV fluids Home meds Recheck labs PTOT Problems: Comment Review of Relevant I have reviewed the following items blade (where applicable) has been applied. Labs Laboratory Tests Test 12/05/16 12:20 12/05/16 12:25 12/05/16 20:50 12/06/16 04:30 Urine Collection Type U cath Urine Color Yellow Urine Clarity Turbid Urine pH 6.0 Urine Specific [place] 1.015 Urine Protein >=300 mg/dL (NEG-TRACE) Urine Glucose (UA) Negative mg/dL (NEG) Urine Ketones (Stick) Negative mg/dL (NEG) Urine Blood Large (NEG) Urine Nitrite Negative (NEG) Urine Bilirubin Negative (NEG) Urine Urobilinogen Dipstick 0.2 mg/dL (0.2 mg/dL) Urine Leukocyte Esterase Large (NEG) Urine RBC >40 /HPF (0-2) Urine WBC Tntc /HPF (0-4) Urine Bacteria Many /HPF (0-FEW) White Blood Count 10.8 x10^3/uL (4.0-11.0) 6.3 x10^3/uL (4.0-11.0) Red Blood Count 4.73 x10^6/uL (3.50-5.40) 3.74 x10^6/uL (3.50-5.40) Hemoglobin 14.0 g/dL (12.0-15.5) 10.8 g/dL (12.0-15.5) Hematocrit 42.5 % (36.0-47.0) 33.3 % (36.0-47.0) Mean Corpuscular Volume 90 fL (79-100) 89 fL (79-100) Mean Corpuscular Hemoglobin 30 pg (25-35) 29 pg (25-35) Mean Corpuscular Hemoglobin Concent 33 g/dL (31-37) 33 g/dL (31-37) Red Cell Distribution Width 15.3 % (11.5-14.5) 15.1 % (11.5-14.5) Platelet Count 400 x10^3/uL (140-400) 268 x10^3/uL (140-400) Neutrophils (%) (Auto) 59 % (31-73) 47 % (31-73) Lymphocytes (%) (Auto) 28 % (24-48) 34 % (24-48) Monocytes (%) (Auto) 9 % (0-9) 13 % (0-9) Eosinophils (%) (Auto) 4 % (0-3) 6 % (0-3) Basophils (%) (Auto) 1 % (0-3) 1 % (0-3) Neutrophils # (Auto) 6.4 x10^3uL (1.8-7.7) 2.9 x10^3uL (1.8-7.7) Lymphocytes # (Auto) 3.0 x10^3/uL (1.0-4.8) 2.1 x10^3/uL (1.0-4.8) Monocytes # (Auto) 1.0 x10^3/uL (0.0-1.1) 0.8 x10^3/uL (0.0-1.1) Eosinophils # (Auto) 0.4 x10^3/uL (0.0-0.7) 0.4 x10^3/uL (0.0-0.7) Basophils # (Auto) 0.1 x10^3/uL (0.0-0.2) 0.1 x10^3/uL (0.0-0.2) Sodium Level 138 mmol/L (136-145) 144 mmol/L (136-145) 142 mmol/L (136-145) Potassium Level 5.9 mmol/L (3.5-5.1) 4.2 mmol/L (3.5-5.1) 4.3 mmol/L (3.5-5.1) Chloride Level 105 mmol/L (98-107) 110 mmol/L (98-107) 110 mmol/L (98-107) Carbon Dioxide Level 22 mmol/L (21-32) 23 mmol/L (21-32) 23 mmol/L (21-32) Anion Gap 11 (6-14) 11 (6-14) 9 (6-14) Blood Urea Nitrogen 40 mg/dL (7-20) 40 mg/dL (7-20) Creatinine 2.3 mg/dL (0.6-1.0) 2.5 mg/dL (0.6-1.0) Estimated GFR (Cockcroft-Gault) 21.6 19.6 BUN/Creatinine Ratio 17 (6-20) Glucose Level 105 mg/dL (70-99) 98 mg/dL (70-99) Calcium Level 10.5 mg/dL (8.5-10.1) 9.1 mg/dL (8.5-10.1) Total Bilirubin 0.4 mg/dL (0.2-1.0) Aspartate Amino Transf (AST/SGOT) 38 U/L (15-37) Alanine Aminotransferase (ALT/SGPT) 13 U/L (14-59) Alkaline Phosphatase 93 U/L (46-116) Total Protein 8.6 g/dL (6.4-8.2) Albumin 3.4 g/dL (3.4-5.0) Albumin/Globulin Ratio 0.7 (1.0-1.7) Test 12/07/16 03:30 Sodium Level 138 mmol/L (136-145) Potassium Level 4.6 mmol/L (3.5-5.1) Chloride Level 107 mmol/L (98-107) Carbon Dioxide Level 23 mmol/L (21-32) Anion Gap 8 (6-14) Blood Urea Nitrogen 41 mg/dL (7-20) Creatinine 2.5 mg/dL (0.6-1.0) Estimated GFR (Cockcroft-Gault) 19.6 BUN/Creatinine Ratio 16 (6-20) Glucose Level 99 mg/dL (70-99) Calcium Level 9.3 mg/dL (8.5-10.1) Phosphorus Level 5.0 mg/dL (2.6-4.7) Magnesium Level 2.2 mg/dL (1.8-2.4) Total Bilirubin 0.1 mg/dL (0.2-1.0) Aspartate Amino Transf (AST/SGOT) 13 U/L (15-37) Alanine Aminotransferase (ALT/SGPT) 12 U/L (14-59) Alkaline Phosphatase 69 U/L (46-116) Total Protein 6.5 g/dL (6.4-8.2) Albumin 2.6 g/dL (3.4-5.0) Albumin/Globulin Ratio 0.7 (1.0-1.7) Laboratory Tests Test 12/07/16 03:30 Sodium Level 138 mmol/L (136-145) Potassium Level 4.6 mmol/L (3.5-5.1) Chloride Level 107 mmol/L (98-107) Carbon Dioxide Level 23 mmol/L (21-32) Anion Gap 8 (6-14) Blood Urea Nitrogen 41 mg/dL (7-20) Creatinine 2.5 mg/dL (0.6-1.0) Estimated GFR (Cockcroft-Gault) 19.6 BUN/Creatinine Ratio 16 (6-20) Glucose Level 99 mg/dL (70-99) Calcium Level 9.3 mg/dL (8.5-10.1) Phosphorus Level 5.0 mg/dL (2.6-4.7) Magnesium Level 2.2 mg/dL (1.8-2.4) Total Bilirubin 0.1 mg/dL (0.2-1.0) Aspartate Amino Transf (AST/SGOT) 13 U/L (15-37) Alanine Aminotransferase (ALT/SGPT) 12 U/L (14-59) Alkaline Phosphatase 69 U/L (46-116) Total Protein 6.5 g/dL (6.4-8.2) Albumin 2.6 g/dL (3.4-5.0) Albumin/Globulin Ratio 0.7 (1.0-1.7) Microbiology 12/05/16 Blood Culture - Preliminary, Resulted NO GROWTH AFTER 1 DAY 12/05/16 Urine Culture - Preliminary, Resulted 12/05/16 Urine Culture Result 1 (DARCIE) - Preliminary, Resulted Medications Current Medications Ketorolac Tromethamine (Toradol Im) 60 mg 1X ONCE IM Last administered on 13:02; Start 12/05/16 at 12:30; Stop 12/05/16 at 12:31; Status DC Sodium Chloride 1,000 ml @ 1,000 mls/hr 1X ONCE IV Last administered on 13:01; Start 12/05/16 at 12:45; Stop 12/05/16 at 13:44; Status DC Sodium Polystyrene Sulfonate (Kayexalate) 30 gm 1X ONCE PO Last administered on 12/05/16 13:44; Start 12/05/16 at 13:15; Stop 12/05/16 at 13:16; Status DC Ceftriaxone Sodium 1 gm/ Sodium Chloride 50 ml @ 100 mls/hr Q24H IV Last administered on 12/06/16 14:46; Start 12/06/16 at 14:00 Oxycodone/ Acetaminophen (Percocet 10/325) 1 tab 1X ONCE PO Last administered on 12/05/16 13:43; Start 12/05/16 at 13:30; Stop 12/05/16 at 13:32; Status DC Ceftriaxone Sodium 50 ml @ 100 mls/hr 1X ONCE IV Last administered on 13:43; Start 12/05/16 at 13:45; Stop 12/05/16 at 14:14; Status DC Ondansetron HCl (Zofran) 4 mg PRN Q8HRS PRN IV NAUSEA/VOMITING; Start 12/05/16 at 13:30; Stop 12/06/16 at 13:29; Status DC Sodium Chloride 1,000 ml @ 75 mls/hr [id number] IV Last administered on 12/06/16 02:45; Start 12/05/16 at 13:27; Stop 12/06/16 at 13:26; Status DC Oxycodone HCl (Roxicodone) 5 mg PRN Q4HRS PRN PO PAIN Last administered on 01:29; Start 12/05/16 at 16:00 Alprazolam (Xanax) 0.5 mg TID PO Last administered on 12/07/16 07:37; Start 12/06/16 at 14:00 Escitalopram Oxalate (Lexapro) 10 mg DAILY PO Last administered on 12/07/16 07: 37; Start 12/06/16 at 11:30 Lisinopril (Prinivil) 10 mg DAILY PO Last administered on 12/06/16 11:17; Start 12/06/16 at 11:30; Stop 12/06/16 at 23:54; Status DC Metoclopramide HCl (Reglan) 5 mg QIDACHS PO Last administered on 6/9/17at 11:57 ; Start 12/06/16 at 11:30 Oxycodone/ Acetaminophen (Percocet 10/325) 1 tab PRN Q6HRS PRN PO PAIN Last administered on 12/07/16 11:57; Start 12/06/16 at 10:30 Pantoprazole Sodium (Protonix) 40 mg DAILYAC PO Last administered on 12/07/16 07:37; Start 12/06/16 at 11:30 Active Scripts Active Percocet 10-325 Mg Tablet (Oxycodone/Acetaminophen) 1 Each Tablet 1 Tab PO Q4- 6HRS Reglan (Metoclopramide Hcl) 10 Mg Tablet 10 Ml PO QID Escitalopram Oxalate 10 Mg Tablet 1 Tab PO DAILY Reported Nexium Capsule (Esomeprazole Magnesium) 40 Mg Capsule.dr 1 Cap PO DAILY Alprazolam 0.5 Mg Tablet 1 Tab PO TID Lisinopril 10 Mg Tablet 1 Tab PO DAILY Vitals/I & O Vital Sign - Last 24 Hours 12/06/16 12/06/16 12/06/16 12/06/16 12:28 14:57 19:00 20:00 Temp 98.1 98.2 98.1 98.2 Pulse 79 79 Resp 16 20 B/P (MAP) 115/76 (89) 105/72 (83) Pulse Ox 95 98 95 O2 Delivery Room Air Room Air Room Air 12/06/16 12/06/16 12/07/16 12/07/16 21:09 23:00 01:29 02:48 Temp 98.4 98.4 Pulse 74 Resp 19 20 18 17 B/P (MAP) 107/67 (80) Pulse Ox 97 O2 Delivery Room Air Room Air Room Air Room Air 12/07/16 12/07/16 12/07/16 12/07/16 05:27 06:41 07:36 08:00 Temp 97.6 97.6 Pulse 67 Resp 18 20 18 B/P (MAP) 107/72 (84) Pulse Ox 90 O2 Delivery Room Air Room Air Room Air Room Air 12/07/16 11:57 Resp 20 Pulse Ox 90 O2 Delivery Room Air Intake and Output 12/06/16 12/06/16 12/07/16 15:00 23:00 07:00 Intake Total 840 ml 240 ml 170 ml Output Total 600 ml Balance 840 ml 240 ml -430 ml CASTLE,NIAL K III DO Dec 07, 2016 12:15
--- NOTE | 2016-12-07 13:21 | PDOC ---
Subjective: Subjective: Denies diarrhea. Doesn't like food. Objective: Vital Signs: Vital Signs Date Time Temp Pulse Resp B/P (MAP) Pulse Ox O2 Delivery O2 Flow Rate FiO2 12/07/16 11:57 20 90 Room Air 12/07/16 11:00 97.9 69 130/92 (105) 97.9 Labs: Laboratory Tests Test 12/07/16 03:30 Sodium Level 138 mmol/L Potassium Level 4.6 mmol/L Chloride Level 107 mmol/L Carbon Dioxide Level 23 mmol/L Anion Gap 8 Blood Urea Nitrogen 41 mg/dL Creatinine 2.5 mg/dL Estimated GFR (Cockcroft-Gault) 19.6 BUN/Creatinine Ratio 16 Glucose Level 99 mg/dL Calcium Level 9.3 mg/dL Phosphorus Level 5.0 mg/dL Magnesium Level 2.2 mg/dL Total Bilirubin 0.1 mg/dL Aspartate Amino Transf (AST/SGOT) 13 U/L Alanine Aminotransferase (ALT/SGPT) 12 U/L Alkaline Phosphatase 69 U/L Total Protein 6.5 g/dL Albumin 2.6 g/dL Albumin/Globulin Ratio 0.7 PE: GEN: NAD, laying in bed LUNGS: CTAB HEART: RRR ABD: S/ND/NT NEURO/PSYCH: A & O 3, drowsy A/P: UTI, urinary retention, CKD -per nephrology H/o C Diff - no diarrhea H/o gastroparesis, GERD, diarrhea, n/v - stable -- Continue same per GI. ANNE-MARIE GARCIA Dec 07, 2016 13:21
[2016-12-07 15:00] VITALS: BP 126/86
[2016-12-07] MEDS: VANCOMYCIN 125 MG/2.5 ML ORAL SOLUTION. PO SCH ×2 (17:00→20:38)
[2016-12-07 19:59] VITALS: BP 117/80
[2016-12-07 23:43] VITALS: BP 105/72
--- NOTE | 2016-12-07 23:51 | PDOC ---
Provider Note Provider Note RENAL F/U : DAVI S : No new issues or c/o O : VSS Afebrile. Neck : Supple Lungs : Non labored. CVS : RRR Abd : Benign in appearance, without distention. Ext : No edema Neuro : Awake. Labs reviewed. A/P : ARF/ATN HTN w CKD CKD III Doing Ok Cr stable. K better. UOP improved. Supportive care. SONG TOMLINSON MD Dec 07, 2016 23:51
[2016-12-08] MEDS: oxyCODONE/APAP 10/325 1 TAB TABLET PO PRN ×3 (02:26→13:44)
[2016-12-08 03:59] VITALS: BP 107/67
[2016-12-08 05:28] LABS: BASO # 0.1 x10^3/uL (0.0-0.2); BASO % 1 % (0-3); EOS % 7 % (0-3); HEMATOCRIT 31.8 % (36.0-47.0); HEMOGLOBIN 10.3 g/dL (12.0-15.5); LYMPH # 2.3 x10^3/uL (1.0-4.8); LYMPH % 41 % (24-48); MEAN CORPUSCULAR HEMOGLOBIN 29 pg (25-35); MEAN CORPUSCULAR HGB CONC 32 g/dL (31-37); MEAN CORPUSCULAR VOLUME 90 fL (79-100); MONO % 12 % (0-9); NEUT % 38 % (31-73); PLATELET COUNT 237 x10^3/uL (140-400); RED BLOOD COUNT 3.51 x10^6/uL (3.50-5.40); RED CELL DISTRIBUTION WIDTH 14.6 % (11.5-14.5); WHITE BLOOD COUNT 5.7 x10^3/uL (4.0-11.0)
[2016-12-08 07:00] VITALS: BP 117/87
[2016-12-08] MEDS: METOCLOPRAMIDE 5 MG TABLET. PO SCH ×2 (07:27→11:23)
[2016-12-08] MEDS: PANTOPRAZOLE 40 MG TABLET.DR. PO SCH (07:27)
[2016-12-08] MEDS: VANCOMYCIN 125 MG/2.5 ML ORAL SOLUTION. PO SCH ×2 (08:55→13:17)
[2016-12-08] MEDS: ALPRAZolam 0.5 MG TABLET PO SCH ×2 (08:55→13:30)
[2016-12-08] MEDS: ESCITALOPRAM 10 MG TABLET. PO SCH (08:55)
[2016-12-08 11:00] VITALS: BP 114/78
[2016-12-08] MEDS ORDERED: OXYC-328 PO (12:03)
--- NOTE | 2016-12-08 14:02 | PDOC ---
PROGRESS NOTES Subjective Subjective SEEN IN FOLLOW UP OF ARF Objective Objective Vital Signs Date Time Temp Pulse Resp B/P (MAP) Pulse Ox O2 Delivery O2 Flow Rate FiO2 12/08/16 13:44 18 98 Room Air 12/08/16 11:00 98.2 88 114/78 (90) 98.2 Intake and Output 12/08/16 07:00 Intake Total 1440 ml Output Total 2100 ml Balance -660 ml Intake Oral 1440 ml Output Urine Total 2100 ml Physical Exam Abdomen: Normal bowel sounds, Soft, No tenderness, No hepatosplenomegaly, No masses Heart: Regular rate, Normal S1, Normal S2, No murmurs, Gallops Extremities: No clubbing, No cyanosis, No edema, Normal pulses, No tenderness/ swelling General: Alert, Oriented X3, Cooperative, No acute distress Lungs: Clear to auscultation, Normal air movement Diagnosis RENAL FAILURE: Acute, Other (DEHYDRATION) Assessment Assessment Problems Medical Problems: (1) Chronic kidney disease Status: Acute Plan Plan of Care RENAL FUNCTION IS BETTER Comment Review of Relevant I have reviewed the following items blade (where applicable) has been applied. Labs Laboratory Tests Test 12/07/16 01:30 12/07/16 03:30 12/08/16 04:45 Clostridium difficile Toxin (PCR) Positive (Negative) Sodium Level 138 mmol/L (136-145) Potassium Level 4.6 mmol/L (3.5-5.1) Chloride Level 107 mmol/L (98-107) Carbon Dioxide Level 23 mmol/L (21-32) Anion Gap 8 (6-14) Blood Urea Nitrogen 41 mg/dL (7-20) Creatinine 2.5 mg/dL (0.6-1.0) Estimated GFR (Cockcroft-Gault) 19.6 BUN/Creatinine Ratio 16 (6-20) Glucose Level 99 mg/dL (70-99) Calcium Level 9.3 mg/dL (8.5-10.1) Phosphorus Level 5.0 mg/dL (2.6-4.7) Magnesium Level 2.2 mg/dL (1.8-2.4) Total Bilirubin 0.1 mg/dL (0.2-1.0) Aspartate Amino Transf (AST/SGOT) 13 U/L (15-37) Alanine Aminotransferase (ALT/SGPT) 12 U/L (14-59) Alkaline Phosphatase 69 U/L (46-116) Total Protein 6.5 g/dL (6.4-8.2) Albumin 2.6 g/dL (3.4-5.0) Albumin/Globulin Ratio 0.7 (1.0-1.7) White Blood Count 5.7 x10^3/uL (4.0-11.0) Red Blood Count 3.51 x10^6/uL (3.50-5.40) Hemoglobin 10.3 g/dL (12.0-15.5) Hematocrit 31.8 % (36.0-47.0) Mean Corpuscular Volume 90 fL (79-100) Mean Corpuscular Hemoglobin 29 pg (25-35) Mean Corpuscular Hemoglobin Concent 32 g/dL (31-37) Red Cell Distribution Width 14.6 % (11.5-14.5) Platelet Count 237 x10^3/uL (140-400) Neutrophils (%) (Auto) 38 % (31-73) Lymphocytes (%) (Auto) 41 % (24-48) Monocytes (%) (Auto) 12 % (0-9) Eosinophils (%) (Auto) 7 % (0-3) Basophils (%) (Auto) 1 % (0-3) Neutrophils # (Auto) 2.2 x10^3uL (1.8-7.7) Lymphocytes # (Auto) 2.3 x10^3/uL (1.0-4.8) Monocytes # (Auto) 0.7 x10^3/uL (0.0-1.1) Eosinophils # (Auto) 0.4 x10^3/uL (0.0-0.7) Basophils # (Auto) 0.1 x10^3/uL (0.0-0.2) Laboratory Tests Test 12/08/16 04:45 White Blood Count 5.7 x10^3/uL (4.0-11.0) Red Blood Count 3.51 x10^6/uL (3.50-5.40) Hemoglobin 10.3 g/dL (12.0-15.5) Hematocrit 31.8 % (36.0-47.0) Mean Corpuscular Volume 90 fL (79-100) Mean Corpuscular Hemoglobin 29 pg (25-35) Mean Corpuscular Hemoglobin Concent 32 g/dL (31-37) Red Cell Distribution Width 14.6 % (11.5-14.5) Platelet Count 237 x10^3/uL (140-400) Neutrophils (%) (Auto) 38 % (31-73) Lymphocytes (%) (Auto) 41 % (24-48) Monocytes (%) (Auto) 12 % (0-9) Eosinophils (%) (Auto) 7 % (0-3) Basophils (%) (Auto) 1 % (0-3) Neutrophils # (Auto) 2.2 x10^3uL (1.8-7.7) Lymphocytes # (Auto) 2.3 x10^3/uL (1.0-4.8) Monocytes # (Auto) 0.7 x10^3/uL (0.0-1.1) Eosinophils # (Auto) 0.4 x10^3/uL (0.0-0.7) Basophils # (Auto) 0.1 x10^3/uL (0.0-0.2) Microbiology 12/05/16 Blood Culture - Preliminary, Resulted NO GROWTH AFTER 2 DAYS 12/05/16 Urine Culture - Final, Complete 12/05/16 Urine Culture Result 1 (DARCIE) - Final, Complete 12/05/16 Antimicrobic Susceptibility - Final, Complete Medications Current Medications Ketorolac Tromethamine (Toradol Im) 60 mg 1X ONCE IM Last administered on 13:02; Start 12/05/16 at 12:30; Stop 12/05/16 at 12:31; Status DC Sodium Chloride 1,000 ml @ 1,000 mls/hr 1X ONCE IV Last administered on 13:01; Start 12/05/16 at 12:45; Stop 12/05/16 at 13:44; Status DC Sodium Polystyrene Sulfonate (Kayexalate) 30 gm 1X ONCE PO Last administered on 12/05/16 13:44; Start 12/05/16 at 13:15; Stop 12/05/16 at 13:16; Status DC Ceftriaxone Sodium 1 gm/ Sodium Chloride 50 ml @ 100 mls/hr Q24H IV Last administered on 12/08/16 13:26; Start 12/06/16 at 14:00 Oxycodone/ Acetaminophen (Percocet 10/325) 1 tab 1X ONCE PO Last administered on 12/05/16 13:43; Start 12/05/16 at 13:30; Stop 12/05/16 at 13:32; Status DC Ceftriaxone Sodium 50 ml @ 100 mls/hr 1X ONCE IV Last administered on 13:43; Start 12/05/16 at 13:45; Stop 12/05/16 at 14:14; Status DC Ondansetron HCl (Zofran) 4 mg PRN Q8HRS PRN IV NAUSEA/VOMITING; Start 12/05/16 at 13:30; Stop 12/06/16 at 13:29; Status DC Sodium Chloride 1,000 ml @ 75 mls/hr [id number] IV Last administered on 12/06/16 02:45; Start 12/05/16 at 13:27; Stop 12/06/16 at 13:26; Status DC Oxycodone HCl (Roxicodone) 5 mg PRN Q4HRS PRN PO PAIN Last administered on 01:29; Start 12/05/16 at 16:00 Alprazolam (Xanax) 0.5 mg TID PO Last administered on 12/08/16 13:30; Start at 14:00 Escitalopram Oxalate (Lexapro) 10 mg DAILY PO Last administered on 12/08/16 08 :55; Start 12/06/16 at 11:30 Lisinopril (Prinivil) 10 mg DAILY PO Last administered on 12/06/16 11:17; Start 12/06/16 at 11:30; Stop 12/06/16 at 23:54; Status DC Metoclopramide HCl (Reglan) 5 mg QIDACHS PO Last administered on 12/08/16 11: 23; Start 12/06/16 at 11:30 Oxycodone/ Acetaminophen (Percocet 10/325) 1 tab PRN Q6HRS PRN PO PAIN Last administered on 12/07/16 11:57; Start 12/06/16 at 10:30; Stop 12/07/16 at 15:43; Status DC Pantoprazole Sodium (Protonix) 40 mg DAILYAC PO Last administered on 12/08/16 07:27; Start 12/06/16 at 11:30 Vancomycin HCl 125 mg [id number] PO Last administered on 12/08/16 13:17; Start at 17:00 Oxycodone/ Acetaminophen (Percocet 10/325) 1 tab PRN Q4HRS PRN PO PAIN Last administered on 12/08/16 13:44; Start 12/07/16 at 16:26 Active Scripts Active Percocet 10-325 Mg Tablet (Oxycodone/Acetaminophen) 1 Each Tablet 0.5-1 Tab PO Q4-6HRS Reglan (Metoclopramide Hcl) 10 Mg Tablet 10 Ml PO QID Escitalopram Oxalate 10 Mg Tablet 1 Tab PO DAILY Reported Nexium Capsule (Esomeprazole Magnesium) 40 Mg Capsule.dr 1 Cap PO DAILY Alprazolam 0.5 Mg Tablet 1 Tab PO TID Lisinopril 10 Mg Tablet 1 Tab PO DAILY Vitals/I & O Vital Sign - Last 24 Hours 12/07/16 12/07/16 12/07/16 12/07/16 15:00 16:43 19:59 20:30 Temp 98.2 97.9 98.2 97.9 Pulse 68 69 Resp 24 18 18 B/P (MAP) 126/86 (99) 117/80 (92) Pulse Ox 97 97 96 O2 Delivery Room Air Room Air Room Air Room Air 12/07/16 12/07/16 12/08/16 12/08/16 20:39 23:43 02:26 03:59 Temp 98.1 98.5 98.1 98.5 Pulse 71 69 Resp 20 18 20 18 B/P (MAP) 105/72 (83) 107/67 (80) Pulse Ox 95 94 O2 Delivery Room Air Room Air Room Air Room Air 12/08/16 12/08/16 12/08/16 12/08/16 07:00 07:28 07:30 08:28 Temp 98.2 98.2 Pulse 66 Resp 22 18 18 B/P (MAP) 117/87 (97) Pulse Ox 98 94 94 O2 Delivery Room Air Room Air Room Air Room Air 12/08/16 12/08/16 11:00 13:44 Temp 98.2 98.2 Pulse 88 Resp 22 18 B/P (MAP) 114/78 (90) Pulse Ox 98 98 O2 Delivery Room Air Room Air Intake and Output 12/07/16 12/07/16 12/08/16 15:00 23:00 07:00 Intake Total 600 ml 600 ml 240 ml Output Total 1300 ml 800 ml Balance 600 ml -700 ml -560 ml PREET HAYS MD Dec 08, 2016 14:02
== END 2016-12-08 14:30 | disposition home or self-care (01) | DRG 371 ==
LOC: ER 11:54 → 5 SOUTH 13:15
PROVIDERS: ADMIT Internal Medicine; ATTEND Internal Medicine
DX: A04.7 Enterocolitis due to Clostridium difficile (principal); N17.0 Acute kidney failure with tubular necrosis; N39.0 Urinary tract infection, site not specified; K20.9 Esophagitis, unspecified; M19.90 Unspecified osteoarthritis, unspecified site; D64.9 Anemia, unspecified; E86.0 Dehydration; E87.5 Hyperkalemia; F32.9 Major depressive disorder, single episode, unspecified; F41.9 Anxiety disorder, unspecified; G89.4 Chronic pain syndrome; Z96.652 Presence of left artificial knee joint; R33.9 Retention of urine, unspecified; W01.0XXA Fall on same level from slipping, tripping and stumbling without subsequent striking against object, initial encounter; I12.9 Hypertensive chronic kidney disease with stage 1 through stage 4 chronic kidney disease, or unspecified chronic kidney disease; K21.9 Gastro-esophageal reflux disease without esophagitis; K31.84 Gastroparesis; M79.7 Fibromyalgia; N18.3 Chronic kidney disease, stage 3 (moderate); Z82.3 Family history of stroke; Z83.3 Family history of diabetes mellitus; Z87.891 Personal history of nicotine dependence; Y93.89 Activity, other specified; Y92.89 Other specified places as the place of occurrence of the external cause; Y99.8 Other external cause status; Z98.51 Tubal ligation status
CPT/HCPCS: 36415; 51701; 73030; 73060; 73502; 73564; 80048; 80051; 80053; 81001; 83735; 84100; 85027; 87040; 87086; 87186; 87324; 93005; 96361; 96365; 96372; J0690; J0696; J1885; J7030; J8597; 99285-25

== ENCOUNTER 2016-12-26 12:53 | Emergency (ER) | payer MEDICARE ==
[~2016-12-26] VITALS: Ht 162.6 cm; Wt 68.0 kg
[~2016-12-26 12:53] MED LIST changes: +ALPR0.5T6 PO; +AMLO10TA2 PO; -ESCI10TA PO; +ESCITALOPRAM OX10 MG PO; +HYDR-2867 PO; +LOPE2CAP PO
[2016-12-26] MEDS ORDERED: ONDANSETRON PF 4 MG/2 ML VIAL. IV ONE (14:30)
[2016-12-26] MEDS ORDERED: IV NORMAL SALINE 1000ML BAG 1,000 ML IV SCH (14:30)
[2016-12-26] MEDS ORDERED: fentaNYL PF VIAL 100 MCG/2 ML VIAL IV PRN (14:30)
[2016-12-26 15:16] LABS: BASO # 0.1 x10^3/uL (0.0-0.2); BASO % 1 % (0-3); EOS % 0 % (0-3); HEMATOCRIT 35.9 % (36.0-47.0); HEMOGLOBIN 11.6 g/dL (12.0-15.5); LYMPH # 1.2 x10^3/uL (1.0-4.8); LYMPH % 11 % (24-48); MEAN CORPUSCULAR HEMOGLOBIN 28 pg (25-35); MEAN CORPUSCULAR HGB CONC 32 g/dL (31-37); MEAN CORPUSCULAR VOLUME 88 fL (79-100); MONO % 5 % (0-9); NEUT % 83 % (31-73); PLATELET COUNT 340 x10^3/uL (140-400); RED BLOOD COUNT 4.09 x10^6/uL (3.50-5.40); RED CELL DISTRIBUTION WIDTH 14.3 % (11.5-14.5); WHITE BLOOD COUNT 11.1 x10^3/uL (4.0-11.0)
[2016-12-26 15:51] LABS: ALBUMIN 3.7 g/dL (3.4-5.0); ALBUMIN/GLOBULIN RATIO 0.9 (1.0-1.7); CALCIUM 9.7 mg/dL (8.5-10.1); CREATININE 2.2 mg/dL (0.6-1.0); GFR 22.8; TOTAL BILIRUBIN 0.3 mg/dL (0.2-1.0); TOTAL PROTEIN 7.8 g/dL (6.4-8.2)
[2016-12-26 16:00] VITALS: BP 155/80
[2016-12-26] MEDS ORDERED: CLON0.1T PO (16:32)
--- NOTE | 2016-12-26 16:33 | PHYS DOC ---
Past Medical History Past Medical History: Alcoholism, Anxiety, Arthritis, Hypertension, Other Additional Past Medical Histor: c diff, chronic n/v/d & abdominal pain, gastritis, renal insufficiency Past Surgical History: Knee Replacement, Other Additional Past Surgical Histo: back and foot surger, LEFT KNEE REPLACEMENT X2 Alcohol Use: Occasionally Drug Use: None Adult General Chief Complaint Chief Complaint: ABDOMINAL PAIN HPI HPI Patient is a 61 year old female with a history of C. difficile, history of gastroparesis, who presents complaining of abdominal pain, nausea, vomiting 6 times this morning, diarrhea 2. No blood in the vomit or diarrhea. The patient has Reglan and Zofran at home and tried this without relief. She has loperamide at home and took that but has had no further diarrhea. The patient was recently hospitalized from December 17- for similar symptoms. At that time, her C. difficile testing was negative. She was released from the hospital with a prescription for Percocet and she ran out 2 days ago. The patient has had opiate withdrawal before and is not sure whether this would be it or not. Denies fever or chills. PCP Dr. Peterson at [facility] [place] Review of Systems Review of Systems Constitutional: Denies fever or chills [] Eyes: Denies change in visual acuity, redness, or eye pain [] HENT: Denies nasal congestion or sore throat [] Respiratory: Denies cough or shortness of breath [] Cardiovascular: Denies chest pain GI: As in history of present illness : Denies dysuria or hematuria [] Musculoskeletal: Denies back pain or joint pain [] Integument: Denies rash or skin lesions [] Neurologic: Denies headache, focal weakness or sensory changes [] Current Medications Current Medications Current Medications Medications (Trade) Dose Ordered Sig/Taz Start Time Stop Time Status Last Admin Dose Admin Clonidine HCl (Catapres) 0.1 mg 1X ONCE 12/26/16 16:45 12/26/16 16:46 DC Fentanyl Citrate (Fentanyl 2ml Vial) 50 mcg PRN Q15MIN PRN 12/26/16 14:30 12/26/16 16:52 DC 12/26/16 15:04 50 MCG Ondansetron HCl (Zofran) 4 mg 1X ONCE 12/26/16 14:30 12/26/16 14:33 DC 12/26/16 15:04 4 MG Sodium Chloride 1,000 ml @ 1,000 mls/hr Q1H 12/26/16 14:30 12/26/16 15:29 DC 12/26/16 15:05 1,000 MLS/HR Allergies Allergies Allergies Coded Allergies Type Severity Reaction Last Updated Verified levofloxacin Allergy Intermediate 08/16/16 Yes morphine Allergy Intermediate tolerates Dilaudid 07/26/16 Yes I S O L A T I O N *CONTACT* Allergy Unknown 07/26/16 Yes diphenhydramine HCl Adverse Reaction Intermediate "Jittery on the inside" 07/26 Yes Physical Exam Physical Exam Constitutional: Well developed, well nourished, appears uncomfortable, she has spit a little saliva into a basin but has not vomited HENT: Normocephalic, atraumatic, bilateral external ears normal, oropharynx moist, no oral exudates, nose normal. [] Eyes: conjunctiva normal, no discharge. [] Neck: Normal range of motion, no stridor. [] Cardiovascular:Heart rate regular rhythm, no murmur [] Lungs & Thorax: Bilateral breath sounds clear to auscultation [] Abdomen: Bowel sounds normal, soft, no masses, no pulsatile masses. Nondistended. Mild tenderness throughout to palpation, no rebound or guarding. Skin: Warm, dry, no erythema, no rash. [] Extremities: No tenderness, no cyanosis, no clubbing, ROM intact, no edema. [] Neurologic: Alert and oriented X 3, normal motor function, normal sensory function, no focal deficits noted. [] Current Patient Data Vital Signs Vital Signs Date Time Temp Pulse Resp B/P (MAP) Pulse Ox O2 Delivery O2 Flow Rate FiO2 12/26/16 16:00 80 155/80 (105) 100 Room Air 12/26/16 15:04 20 12/26/16 13:46 98.4 98.4 Lab Values Laboratory Tests Test 12/26/16 14:20 White Blood Count 11.1 x10^3/uL (4.0-11.0) H Red Blood Count 4.09 x10^6/uL (3.50-5.40) Hemoglobin 11.6 g/dL (12.0-15.5) L Hematocrit 35.9 % (36.0-47.0) L Mean Corpuscular Volume 88 fL (79-100) Mean Corpuscular Hemoglobin 28 pg (25-35) Mean Corpuscular Hemoglobin Concent 32 g/dL (31-37) Red Cell Distribution Width 14.3 % (11.5-14.5) Platelet Count 340 x10^3/uL (140-400) Neutrophils (%) (Auto) 83 % (31-73) H Lymphocytes (%) (Auto) 11 % (24-48) L Monocytes (%) (Auto) 5 % (0-9) Eosinophils (%) (Auto) 0 % (0-3) Basophils (%) (Auto) 1 % (0-3) Neutrophils # (Auto) 9.2 x10^3uL (1.8-7.7) H Lymphocytes # (Auto) 1.2 x10^3/uL (1.0-4.8) Monocytes # (Auto) 0.6 x10^3/uL (0.0-1.1) Eosinophils # (Auto) 0.0 x10^3/uL (0.0-0.7) Basophils # (Auto) 0.1 x10^3/uL (0.0-0.2) Sodium Level 141 mmol/L (136-145) Potassium Level 3.0 mmol/L (3.5-5.1) L Chloride Level 102 mmol/L (98-107) Carbon Dioxide Level 20 mmol/L (21-32) L Anion Gap 19 (6-14) H Blood Urea Nitrogen 10 mg/dL (7-20) Creatinine 2.2 mg/dL (0.6-1.0) H Estimated GFR (Cockcroft-Gault) 22.8 BUN/Creatinine Ratio 5 (6-20) L Glucose Level 144 mg/dL (70-99) H Calcium Level 9.7 mg/dL (8.5-10.1) Total Bilirubin 0.3 mg/dL (0.2-1.0) Aspartate Amino Transferase (AST) 30 U/L (15-37) Alanine Aminotransferase (ALT) 20 U/L (14-59) Alkaline Phosphatase 98 U/L (46-116) Total Protein 7.8 g/dL (6.4-8.2) Albumin 3.7 g/dL (3.4-5.0) Albumin/Globulin Ratio 0.9 (1.0-1.7) L Lipase 289 U/L (73-393) Laboratory Tests 12/26/16 14:20 Laboratory Tests 12/26/16 14:20 EKG EKG [] Radiology/Procedures Radiology/Procedures [] Course & Med Decision Making Course & Med Decision Making Pertinent Labs and Imaging studies reviewed. (See chart for details) 61-year-old female who ran out of her opiates yesterday, today is having abdominal pain, vomiting and diarrhea. I wonder whether her symptoms may be partly opiate withdrawal. She also does chronically have problems with these symptoms. Labs today unrevealing. She was given some IV symptom control and IV fluids. I reassured the patient and offered her clonidine for possible opiate withdrawal symptoms. I don't believe that further prescriptions of opiates for abdominal pain will be doing her any favors, I explained carefully that since her symptoms may be from opiate withdrawal we do not want to set up a vicious cycle by continuing those. [] Dragon Disclaimer Dragon Disclaimer This electronic medical record was generated, in whole or in part, using a voice recognition dictation system. Departure Departure Impression: Primary Impression: Abdominal pain Additional Impressions: Nausea and vomiting in adult Opiate withdrawal Disposition: HOME, SELF-CARE Condition: STABLE Referrals: UNKNOWN PCP NAME (PCP) Patient Instructions: Narcotic Withdrawal-Brief, Nausea and Vomiting, Easy-to- Read Additional Instructions: As we discussed, I believe your symptoms may be due to withdrawing from opiates. If we use opiates for your symptoms, you will not be able to stop taking them. I recommend that we treat your symptoms. You were given a dose of clonidine in the emergency department. Your next dose is due in 12 hours. Follow-up with your primary care doctor to discuss your chronic medical problems. Scripts Clonidine Hcl (CLONIDINE HCL) 0.1 Mg Tablet 0.1 MG PO BID for opiate withdrawal symptoms for 5 Days, #10 TAB Prov: HARSH BEY MD 12/26/16 Problem Qualifiers HARSH BEY MD Dec 26, 2016 16:33
[2016-12-26] MEDS ORDERED: cloNIDine HCL 0.1 MG TABLET PO ONE (16:45)
== END 2016-12-26 16:35 | disposition home or self-care (01) ==
LOC: ER 12:53
DX: R10.84 Generalized abdominal pain (principal); R11.2 Nausea with vomiting, unspecified; F11.23 Opioid dependence with withdrawal; F41.9 Anxiety disorder, unspecified; I10 Essential (primary) hypertension; K31.84 Gastroparesis; M19.90 Unspecified osteoarthritis, unspecified site; F10.20 Alcohol dependence, uncomplicated; Z88.5 Allergy status to narcotic agent; Z88.8 Allergy status to other drugs, medicaments and biological substances; Z88.1 Allergy status to other antibiotic agents; Z91.041 Radiographic dye allergy status; Z96.652 Presence of left artificial knee joint
CPT/HCPCS: 36415; 80053; 83690; 85027; 96361; 96374; 96375; 99284; J2405; J3010; J7030

== ENCOUNTER 2017-01-06 17:29 | Emergency (ER) | payer MEDICARE ==
[~2017-01-06] VITALS: Ht 162.6 cm; Wt 68.0 kg
[~2017-01-06 17:29] MED LIST changes: +CLON0.1T PO
[2017-01-06] MEDS ORDERED: IV NORMAL SALINE 1000ML BAG 1,000 ML IV ONE (18:30)
--- NOTE | 2017-01-06 18:34 | PHYS DOC ---
Past Medical History Past Medical History: Alcoholism, Anxiety, Arthritis, Hypertension, MRSA, Other Additional Past Medical Histor: c diff, chronic n/v/d & abdominal pain, gastritis, renal insufficiency Past Surgical History: Knee Replacement, Other Additional Past Surgical Histo: back and foot surger, LEFT KNEE REPLACEMENT X2 Alcohol Use: Sober Drug Use: None Adult General Chief Complaint Chief Complaint: ABDOMINAL PAIN HPI HPI 61-year-old female well known to our emergency medicine service for frequent visits and chronic abdominal pain now presents to emergency department complaining of intermittent crampy abdominal pain nausea and vomiting intermittently as well as lightheadedness today after urinating this morning. She states she got up this morning had P went to the bathroom after being she felt a little lightheaded. No fevers chills sweats or shaking chills. Denies abdominal pain or flank pain currently. Patient states she has had some loose stool recently out radha diarrhea. She is an alcoholic and currently only drinks once a week by her description. She has prior history of pancreatitis polysubstance abuse and gastroparesis but she is not having intractable vomiting today. Patient was discussed concerned about feeling lightheaded earlier so she came for evaluation. States she is out of her Percocet and is not currently on any narcotics at home She previously was prescribed Percocet 10 Review of Systems Review of Systems Constitutional: Denies fever or chills [] Eyes: Denies change in visual acuity, redness, or eye pain [] HENT: Denies nasal congestion or sore throat [] Respiratory: Denies cough or shortness of breath [] Cardiovascular: No additional information not addressed in HPI [] GI: Denies abdominal pain, nausea, vomiting, bloody stools or diarrhea [] : Denies dysuria or hematuria [] Musculoskeletal: Denies back pain or joint pain [] Integument: Denies rash or skin lesions [] Neurologic: Denies headache, focal weakness or sensory changes [] Endocrine: Denies polyuria or polydipsia [] Current Medications Current Medications Current Medications Medications (Trade) Dose Ordered Sig/Taz Start Time Stop Time Status Last Admin Dose Admin Ketorolac Tromethamine (Toradol) 30 mg 1X ONCE 01/06/17 19:30 01/06/17 19:31 DC 01/06/17 19:19 30 MG Ondansetron HCl (Zofran Odt) 4 mg 1X ONCE 01/06/17 19:00 01/06/17 19:01 DC 01/06/17 18:38 4 MG Sodium Chloride 1,000 ml @ 1,000 mls/hr 1X ONCE 01/06/17 18:30 01/06/17 19:29 DC 01/06/17 18:29 1,000 MLS/HR Allergies Allergies Allergies Coded Allergies Type Severity Reaction Last Updated Verified levofloxacin Allergy Intermediate 08/16/16 Yes morphine Allergy Intermediate tolerates Dilaudid 07/26/16 Yes I S O L A T I O N *CONTACT* Allergy Unknown 07/26/16 Yes diphenhydramine HCl Adverse Reaction Intermediate "Jittery on the inside" 07/26 Yes Physical Exam Physical Exam 61-year-old female appearing older than her stated age no acute distress alert communicative and cooperative. Mucous membranes mildly dry. No Vomiting. Vital signs markable only for mild tachycardia at 106 on M.D. exam. Normal respiratory rate and pulse ox. Appropriate blood pressure. Abdominal exam is benign with no focal tenderness. No CVA tenderness. Nonfocal neurologic exam Constitutional: Well developed, well nourished, no acute distress, non-toxic appearance. [] HENT: Normocephalic, atraumatic, bilateral external ears normal, oropharynx moist, no oral exudates, nose normal. [] Eyes: PERRLA, EOMI, conjunctiva normal, no discharge. [] Neck: Normal range of motion, no tenderness, supple, no stridor. [] Cardiovascular:Heart rate regular rhythm, no murmur [] Lungs & Thorax: Bilateral breath sounds clear to auscultation [] Abdomen: Bowel sounds normal, soft, no tenderness, no masses, no pulsatile masses. [] Skin: Warm, dry, no erythema, no rash. [] Back: No tenderness, no CVA tenderness. [] Extremities: No tenderness, no cyanosis, no clubbing, ROM intact, no edema. [] Neurologic: Alert and oriented X 3, normal motor function, normal sensory function, no focal deficits noted. [] Psychologic: Affect normal, judgement normal, mood normal. [] Current Patient Data Vital Signs Vital Signs Date Time Temp Pulse Resp B/P (MAP) Pulse Ox O2 Delivery O2 Flow Rate FiO2 01/06/17 18:42 92 22 161/103 (122) 96 Room Air 01/06/17 17:40 98.5 98.5 Lab Values Laboratory Tests Test 01/06/17 17:46 01/06/17 18:22 01/06/17 18:32 Urine Collection Type Unknown Urine Color Yellow Urine Clarity Turbid Urine pH 7.0 Urine Specific [place] 1.010 Urine Protein >=300 mg/dL (NEG-TRACE) Urine Glucose (UA) Negative mg/dL (NEG) Urine Ketones (Stick) Negative mg/dL (NEG) Urine Blood Moderate (NEG) Urine Nitrite Negative (NEG) Urine Bilirubin Negative (NEG) Urine Urobilinogen Dipstick 0.2 mg/dL (0.2 mg/dL) Urine Leukocyte Esterase Large (NEG) Urine RBC /HPF (0-2) Urine WBC Tntc /HPF (0-4) Urine Bacteria Many /HPF (0-FEW) Troponin I Quantitative 0.030 ng/mL (0.000-0.055) Thyroid Stimulating Hormone (TSH) 3.186 uIU/mL (0.358-3.74) POC Hemoglobin 14.3 g/dL (12-15) POC Hematocrit 42 % (36-40) H POC Sodium 129 mmol/L (135-145) L POC Potassium 3.6 mmol/L (3.5-5.0) POC Chloride 86 mmol/L (98-110) L POC Total CO2 34 mmol/L (23-32) H Anion Gap 14 mmol/L (6-14) POC Blood Urea Nitrogen 29 mg/dL (8-26) H POC Creatinine 2.7 mg/dL (0.5-1.4) H Glucose Level 123 mg/dL (70-99) H POC Ionized Calcium (Jim) 1.02 mmol/L (1.13-1.32) L Laboratory Tests 01/06/17 18:32 EKG EKG EKG normal sinus rhythm at 95 left axis deviation no STEMI interpreted by me [] Radiology/Procedures Radiology/Procedures Chest x-ray chronic changes no acute disease interpreted by me [] Course & Med Decision Making Course & Med Decision Making Pertinent Labs and Imaging studies reviewed. (See chart for details)d Patient with a history of polysubstance abuse and chronic abdominal pain however now well appearing with unremarkable vital signs with clinical suggestion of very mild dehydration as a contributory etiology to what appears clinically consistent with a mild vasovagal episode today. Labs EKG and chest x- ray pending. IV fluids initiated. Patient states her chronic pain is unchanged. Offered single by mouth [place] to patient as she has previously been prescribed this chronically.. Vital signs stable workup pending Since stable on multiple re-exams. She is comfortable appearing. EKG and chest x -ray unremarkable. Labs with hyponatremia sodium of 129 however this is not clinically relevant at this visit. BUN/creatinine 29 and 2.7. This is actually improved from patient's prior creatinine of 2.9 on November 12. TSH and troponin were negative. Urinalysis is consistent with infection. Keflex by mouth dose given here and prescription dispensed. No Evidence of pyelonephritis or systemic illness. No further workup or treatment indicated at this time. Patient agrees with outpatient follow-up and strict return precautions given [] Dragon Disclaimer Dragon Disclaimer This electronic medical record was generated, in whole or in part, using a voice recognition dictation system. Departure Departure Impression: Primary Impression: Vasovagal episode Additional Impressions: Mild dehydration UTI (urinary tract infection) Disposition: HOME, SELF-CARE Condition: GOOD Referrals: UNKNOWN PCP NAME (PCP) Patient Instructions: Dehydration, Adult Additional Instructions: It appears the have very mild dehydration today, likely a result of decreased by mouth intake and loose stool which you described as typical for you. Your description of lightheadedness before or after needing to urinate is consistent with a vasovagal episode. Vasovagal episodes occur when certain stimuli triggered her blood pressure to drop and make him lightheaded. He already may be prone to this type of episode especially given her chronic abdominal pain return recurrent crampy pain and your vomiting and diarrhea proclivity. Use Zofran under your tongue once every 4 hours as needed rest and drink plenty of fluids. Follow up with her doctor tomorrow and return immediately for any severe or worsening symptoms Scripts Cephalexin (KEFLEX) 500 Mg Capsule 1 CAP PO QID, #40 CAP Prov: PREET RANDOLPH MD 01/06/17 Problem Qualifiers PREET RANDOLPH MD Jan 06, 2017 18:33
[2017-01-06 18:36] LABS: POTASSIUM ISTAT 3.6 mmol/L (3.5-5.0)
[2017-01-06 18:42] LABS: BILIRUBIN,URINE NEGATIVE (NEG); GLUCOSE,URINE NEGATIVE (NEG); NITRITE,URINE NEGATIVE (NEG); PROTEIN,URINE >=300 mg/dL (NEG-TRACE); UROBILINOGEN,URINE 0.2 mg/dL (0.2 mg/dL)
[2017-01-06 18:46] LABS: BACTERIA,URINE MANY /HPF (0-FEW); WBC,URINE TNTC /HPF (0-4)
--- NOTE | 2017-01-06 18:50 | EKG ---
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
[2017-01-06] MEDS ORDERED: ONDANSETRON ODT 4 MG TAB.RAPDIS. PO ONE (19:00)
[2017-01-06] MEDS ORDERED: KETOROLAC TROMETHAMINE 30 MG/ML INJ. IV ONE (19:30)
[2017-01-06] MEDS ORDERED: CEPH-264 PO (19:54)
[2017-01-06 20:00] VITALS: BP 151/94
[2017-01-06] MEDS ORDERED: CEPHALEXIN 250 MG CAPSULE. PO ONE (20:15)
--- NOTE | 2017-01-07 08:43 | RAD ---
Single view of the Chest 01/06/2017 8:14 PM Indication: medical workup/NEAR SYNCOPE Comparison: Chest radiograph November 01, 2016 Findings: There is no focal consolidation or infiltrate identified. There is no effusion or pneumothorax. Heart size is within normal limits. No osseous abnormality is identified. Impression: No evidence of acute cardiopulmonary process.
== END 2017-01-06 20:13 | disposition home or self-care (01) ==
LOC: ER 17:29
DX: N39.0 Urinary tract infection, site not specified (principal); E86.0 Dehydration; R55 Syncope and collapse; G89.29 Other chronic pain; I10 Essential (primary) hypertension; Z96.652 Presence of left artificial knee joint; F41.9 Anxiety disorder, unspecified; M19.90 Unspecified osteoarthritis, unspecified site; K31.84 Gastroparesis; Z86.14 Personal history of Methicillin resistant Staphylococcus aureus infection; Z88.5 Allergy status to narcotic agent; Z88.8 Allergy status to other drugs, medicaments and biological substances; Z91.041 Radiographic dye allergy status; F19.10 Other psychoactive substance abuse, uncomplicated
CPT/HCPCS: 36415; 71010; 80047; 81001; 84443; 84484; 93005; 96361; 96374; 99285; J1885; J7030; Q0162

== ENCOUNTER 2017-04-06 22:39 | Inpatient (IN) | payer MEDICARE ==
[~2017-04-06] VITALS: Ht 162.6 cm; Wt 73.5 kg
[~2017-04-06 22:39] MED LIST changes: -OXYC5TAB PO; +OXYC5TAB95 PO
[2017-04-06] MEDS ORDERED: IV NORMAL SALINE 1000ML BAG 1,000 ML IV SCH (23:15)
[2017-04-06] MEDS ORDERED: fentaNYL PF VIAL 100 MCG/2 ML VIAL IV PRN (23:15)
[2017-04-06] MEDS ORDERED: METOCLOPRAMIDE HCL 10 MG/2 ML VIAL. IV ONE (23:15)
--- NOTE | 2017-04-06 23:15 | PHYS DOC ---
Past Medical History Past Medical History: Alcoholism, Anxiety, Arthritis, Hypertension, MRSA, Other Additional Past Medical Histor: c diff, chronic n/v/d & abdominal pain, gastritis, renal insufficiency Past Surgical History: Knee Replacement, Other Additional Past Surgical Histo: back and foot surger, LEFT KNEE REPLACEMENT X2 Alcohol Use: Sober Drug Use: None Adult General Chief Complaint Chief Complaint: NAUSEA/VOMITING/DIARRHA HPI HPI Patient is a 61 year old female who presents with complaint of nausea, vomiting , diarrhea, and abdominal pain. Patient states that her symptoms started suddenly this morning. Patient has a chronic history of abdominal pain, gastroparesis, and diarrhea. Patient was last seen in the emergency department on January 06, 2017. Patient has had multiple visits to the emergency department for similar symptoms. Patient states that she had been feeling well up until this morning. Patient has had documented history of pain medication use and suspicion for withdrawal symptoms in the past. Patient states that she has not been taking any pain medications over the past several weeks at home. Patient states that she has had problems with acid reflux and has an appointment scheduled next week with Dr. Orosco of gastroenterology for follow-up. Patient denies any associated fevers. Patient states she is having pain in her upper abdomen which she attributes to vomiting. Patient states that she has been very lightheaded and states that she is unable to sit upright as she feels like she is going to pass out. Review of Systems Review of Systems Constitutional: Lightheadedness, denies fever or chills[] Eyes: Denies change in visual acuity, redness, or eye pain [] HENT: Denies nasal congestion or sore throat [] Respiratory: Denies cough or shortness of breath [] Cardiovascular: Denies chest pain or edema[] GI: Abdominal pain, nausea, vomiting, diarrhea[] : Denies dysuria or hematuria [] Musculoskeletal: Denies back pain or joint pain [] Integument: Denies rash or skin lesions [] Neurologic: Denies headache, focal weakness or sensory changes [] Current Medications Current Medications Current Medications Medications (Trade) Dose Ordered Sig/Taz Start Time Stop Time Status Last Admin Dose Admin Ceftriaxone Sodium 50 ml @ 100 mls/hr 1X ONCE 04/07/17 00:00 04/07/17 00:29 DC 04/07/17 00:36 100 MLS/HR Fentanyl Citrate (Fentanyl 2ml Vial) 50 mcg PRN Q15MIN PRN 04/06/17 23:15 04/07/17 23:14 04/06/17 23:25 50 MCG Metoclopramide HCl (Reglan) 10 mg 1X ONCE 04/06/17 23:15 04/06/17 23:16 DC 04/06/17 23:25 10 MG Sodium Chloride 1,000 ml @ 1,000 mls/hr 1X ONCE 04/07/17 00:15 04/07/17 01:14 DC 04/07/17 00:36 1,000 MLS/HR Allergies Allergies Allergies Coded Allergies Type Severity Reaction Last Updated Verified levofloxacin Allergy Intermediate 08/16/16 Yes morphine Allergy Intermediate tolerates Dilaudid 07/26/16 Yes I S O L A T I O N *CONTACT* Allergy Unknown 07/26/16 Yes diphenhydramine HCl Adverse Reaction Intermediate "Jittery on the inside" 07/26 Yes Physical Exam Physical Exam Constitutional: Alert, afebrile, appears in mild to moderate discomfort[] HENT: Normocephalic, atraumatic, bilateral external ears normal, oropharynx moist, no oral exudates, nose normal. [] Eyes: PERRLA, EOMI, conjunctiva normal, no discharge. [] Neck: Normal range of motion, no tenderness, supple, no stridor. [] Cardiovascular:Heart rate regular rhythm, no murmur [] Lungs & Thorax: Bilateral breath sounds clear to auscultation [] Abdomen: Bowel sounds normal, soft, mild epigastric tenderness to palpation with no guarding or rebound tenderness, no masses, no pulsatile masses. [] Skin: Warm, dry, no erythema, no rash. [] Back: No tenderness, no CVA tenderness. [] Extremities: No tenderness, no cyanosis, no clubbing, ROM intact, no edema. [] Neurologic: Alert and oriented X 3, normal motor function, normal sensory function, no focal deficits noted. [] Current Patient Data Vital Signs Vital Signs Date Time Temp Pulse Resp B/P (MAP) Pulse Ox O2 Delivery O2 Flow Rate FiO2 04/06/17 22:57 99.2 97 16 159/112 (128) 100 Room Air 99.2 Lab Values Laboratory Tests Test 04/06/17 22:50 04/06/17 23:02 Urine Collection Type Unknown Urine Color Yellow Urine Clarity Cloudy Urine pH 6.0 Urine Specific [place] 1.015 Urine Protein >=300 mg/dL (NEG-TRACE) Urine Glucose (UA) Negative mg/dL (NEG) Urine Ketones (Stick) Negative mg/dL (NEG) Urine Blood Moderate (NEG) Urine Nitrite Negative (NEG) Urine Bilirubin Negative (NEG) Urine Urobilinogen Dipstick 0.2 mg/dL (0.2 mg/dL) Urine Leukocyte Esterase Large (NEG) Urine RBC Occ /HPF (0-2) Urine WBC Tntc /HPF (0-4) Urine Squamous Epithelial Cells Few /LPF Urine Bacteria Many /HPF (0-FEW) Urine Mucus Slight /LPF White Blood Count 16.3 x10^3/uL (4.0-11.0) H Red Blood Count 4.36 x10^6/uL (3.50-5.40) Hemoglobin 11.6 g/dL (12.0-15.5) L Hematocrit 36.1 % (36.0-47.0) Mean Corpuscular Volume 83 fL (79-100) Mean Corpuscular Hemoglobin 27 pg (25-35) Mean Corpuscular Hemoglobin Concent 32 g/dL (31-37) Red Cell Distribution Width 14.7 % (11.5-14.5) H Platelet Count 286 x10^3/uL (140-400) Neutrophils (%) (Auto) 85 % (31-73) H Lymphocytes (%) (Auto) 7 % (24-48) L Monocytes (%) (Auto) 7 % (0-9) Eosinophils (%) (Auto) 0 % (0-3) Basophils (%) (Auto) 1 % (0-3) Neutrophils # (Auto) 13.9 x10^3uL (1.8-7.7) H Lymphocytes # (Auto) 1.2 x10^3/uL (1.0-4.8) Monocytes # (Auto) 1.2 x10^3/uL (0.0-1.1) H Eosinophils # (Auto) 0.0 x10^3/uL (0.0-0.7) Basophils # (Auto) 0.1 x10^3/uL (0.0-0.2) Platelet Estimate Pending Sodium Level 133 mmol/L (136-145) L Potassium Level 4.1 mmol/L (3.5-5.1) Chloride Level 98 mmol/L (98-107) Carbon Dioxide Level 19 mmol/L (21-32) L Anion Gap 16 (6-14) H Blood Urea Nitrogen 23 mg/dL (7-20) H Creatinine 2.2 mg/dL (0.6-1.0) H Estimated GFR (Cockcroft-Gault) 22.8 BUN/Creatinine Ratio 10 (6-20) Glucose Level 170 mg/dL (70-99) H Calcium Level 9.8 mg/dL (8.5-10.1) Total Bilirubin 0.7 mg/dL (0.2-1.0) Aspartate Amino Transferase (AST) 27 U/L (15-37) Alanine Aminotransferase (ALT) 17 U/L (14-59) Alkaline Phosphatase 104 U/L (46-116) Total Protein 8.7 g/dL (6.4-8.2) H Albumin 3.2 g/dL (3.4-5.0) L Albumin/Globulin Ratio 0.6 (1.0-1.7) L Lipase 171 U/L (73-393) Laboratory Tests 04/06/17 23:02 Laboratory Tests 04/06/17 23:02 EKG EKG Interpreted by me: Heart rate 95, sinus rhythm, normal intervals, normal axis, no acute ST/T-wave abnormalities present[] Radiology/Procedures Radiology/Procedures 3 view acute abdominal series interpreted by me: No pulmonary infiltrates or effusions, normal cardiac silhouette, nonobstructive bowel gas pattern, no free air under the diaphragm[] Course & Med Decision Making Course & Med Decision Making Pertinent Labs and Imaging studies reviewed. (See chart for details) Patient was given IV Reglan, fentanyl, and 2 L of IV fluids. Patient found to have evidence of urinary tract infection which may be exacerbating her chronic abdominal symptoms. Despite treatment, patient continues to be unable to tolerate oral intake and states that she is still lightheaded though this has improved slightly with IV administration. The patient will be admitted the hospital for further treatment with IV antibiotics and IV fluids. Patient admitted to Dr. Mcgill. Hugo Disclaimer Hugo Disclaimer This electronic medical record was generated, in whole or in part, using a voice recognition dictation system. Departure Departure Impression: Primary Impression: UTI (urinary tract infection) Additional Impressions: Dehydration Intractable nausea and vomiting CKD (chronic kidney disease) stage 4, GFR 15-29 ml/min Disposition: 09 ADMITTED INPATIENT Admitting Physician: Franck Mcgill Condition: GUARDED Referrals: UNKNOWN PCP NAME (PCP) Problem Qualifiers Primary Impression: UTI (urinary tract infection) Urinary tract infection type: site unspecified Hematuria presence: without hematuria Qualified Codes: N39.0 - Urinary tract infection, site not specified Additional Impressions: Intractable nausea and vomiting Vomiting type: unspecified Qualified Codes: R11.2 - Nausea with vomiting, unspecified EDUARDO HERNANDEZ MD Apr 06, 2017 23:15
[2017-04-06 23:24] LABS: BASO # 0.1 x10^3/uL (0.0-0.2); BASO % 1 % (0-3); EOS % 0 % (0-3); HEMATOCRIT 36.1 % (36.0-47.0); HEMOGLOBIN 11.6 g/dL (12.0-15.5); LYMPH # 1.2 x10^3/uL (1.0-4.8); LYMPH % 7 % (24-48); MEAN CORPUSCULAR HEMOGLOBIN 27 pg (25-35); MEAN CORPUSCULAR HGB CONC 32 g/dL (31-37); MEAN CORPUSCULAR VOLUME 83 fL (79-100); MONO % 7 % (0-9); NEUT % 85 % (31-73); PLATELET COUNT 286 x10^3/uL (140-400); RED BLOOD COUNT 4.36 x10^6/uL (3.50-5.40); RED CELL DISTRIBUTION WIDTH 14.7 % (11.5-14.5); WHITE BLOOD COUNT 16.3 x10^3/uL (4.0-11.0)
[2017-04-06 23:25] LABS: BILIRUBIN,URINE NEGATIVE (NEG); GLUCOSE,URINE NEGATIVE (NEG); NITRITE,URINE NEGATIVE (NEG); PROTEIN,URINE >=300 mg/dL (NEG-TRACE); UROBILINOGEN,URINE 0.2 mg/dL (0.2 mg/dL)
[2017-04-06 23:29] LABS: BACTERIA,URINE MANY /HPF (0-FEW); RBC,URINE OCC /HPF (0-2); SQUAMOUS EPITHELIAL CELL,UR FEW /LPF; WBC,URINE TNTC /HPF (0-4)
[2017-04-06 23:40] LABS: CALCIUM 9.8 mg/dL (8.5-10.1); CREATININE 2.2 mg/dL (0.6-1.0); GFR 22.8; POTASSIUM 4.1 mmol/L (3.5-5.1)
[2017-04-06 23:49] LABS: ALBUMIN 3.2 g/dL (3.4-5.0); ALBUMIN/GLOBULIN RATIO 0.6 (1.0-1.7); TOTAL BILIRUBIN 0.7 mg/dL (0.2-1.0); TOTAL PROTEIN 8.7 g/dL (6.4-8.2)
[2017-04-07] MEDS ORDERED: IV NORMAL SALINE 1000ML BAG 1,000 ML IV ONE (00:15)
[2017-04-07 03:25] LABS: PLT ESTIMATE ADEQUATE (ADEQUATE)
[2017-04-07] MEDS ORDERED: INFLUENZA VAX SCREEN BY RX. MC ONE (03:30)
[2017-04-07] MEDS ORDERED: METO10TA81 PO (03:51)
[2017-04-07 04:17] VITALS: BP 187/113
[2017-04-07] MEDS ORDERED: hydrALAZINE 20 MG/ML VIAL. IVP PRN (05:00)
[2017-04-07] MEDS: HYDROmorphone 2 MG/ML VIAL IVP PRN ×2 (05:07→11:36)
[2017-04-07 07:44] VITALS: BP 169/102
[2017-04-07] MEDS: IV NORMAL SALINE 1000ML BAG 1,000 ML IV SCH ×2 (08:30→18:23)
[2017-04-07] MEDS ORDERED: FLU VACC QS2017-18 (36MOS+)/PF 0.5 ML SYRINGE. VAX IM ONE (09:00)
[2017-04-07 09:13] LABS: OBC FLU VALID
--- NOTE | 2017-04-07 11:21 | RAD ---
Acute abdomen series with chest, 3 views, 04/06/2017: History: Abdominal pain and vomiting A moderate size gas collection in the pelvis probably lies in the rectum. A bladder origin is much less likely. There is a general paucity of bowel gas in the abdomen compatible with the history of vomiting. No free air seen in the abdomen. There is no evidence of organomegaly. Lower pelvic calcifications are compatible with phleboliths. Surgical rods and screws are present in the lower lumbar spine. There is a mild lumbar scoliosis with multilevel degenerative change. The heart size and pulmonary vascularity are normal. The lungs are clear. There is no evidence of pleural fluid. IMPRESSION: 1. A moderate-sized pelvic gas collection probably lies in a distended rectum. A bladder origin is less likely. Is there clinical evidence to suggest an enterovesical fistula? 2. Otherwise no acute abdominal abnormality is detected.
[2017-04-07 11:31] VITALS: BP 157/98
--- NOTE | 2017-04-07 12:27 | EKG ---
[facility] [address] [place] [address] Test Date: 2017-04-06 Test Time: 23:20:18 Pat Name: SANTI HERRON Department: Room: Gender: F Cap Sewer: : 1955 Requested By: EDUARDO HERNANDEZ Order Number: [id number] Reading MD: Measurements Intervals [place] Rate: 95 P: 51 OH: 144 QRS: 8 QRSD: 72 T: 25 QT: 358 QTc: 453 Interpretive Statements SINUS RHYTHM ATRIAL PREMATURE COMPLEX(ES) OTHERWISE NORMAL ECG RI6.01 No previous ECG available for comparison
[2017-04-07 14:46] VITALS: BP 150/90
[2017-04-07] MEDS ORDERED: LOPERAMIDE 2 MG CAPSULE PO PRN (18:15)
[2017-04-07] MEDS ORDERED: oxyCODONE/APAP 10/325 1 TAB TABLET PO PRN (18:15)
[2017-04-07] MEDS: oxyCODONE IR 5 MG TABLET PO PRN (18:22)
[2017-04-07] MEDS: PANTOPRAZOLE 40 MG TABLET.DR. PO SCH (18:27)
[2017-04-07] MEDS: CITALOPRAM 20 MG TABLET. PO SCH (18:27)
--- NOTE | 2017-04-07 18:46 | HP ---
ADMIT DATE: 04/07/2017 CHIEF COMPLAINT: Nausea, vomiting, abdominal pain. HISTORY OF PRESENT ILLNESS: The patient is a 61-year-old woman, well known to our service with chronic back pain, abdominal pain, and C. diff diarrhea who presented to the Emergency Room with nausea, vomiting. She relates that this started suddenly earlier this morning. She had been doing great since her last admission, which was actually 3 months ago. Denied any changes in her bowel movement, although is always on the loose side. In the Emergency Room, she was found with signs and symptoms of UTI and therefore admitted to the hospital. On further questioning, she denies any subjective fevers, has felt dizzy, especially upon standing up, however, and still feels a little woozy now. PAST MEDICAL HISTORY: C. diff colitis, recurrent chronic abdominal and back pain, chronic renal insufficiency, anxiety, history of alcoholism. FAMILY HISTORY: No heart disease, hypertension, abdominal issues. SOCIAL HISTORY: Currently lives by herself. Daughter close by. She has quit drinking earlier this year. No other toxic habits. ALLERGIES: DIPHENHYDRAMINE, LEVAQUIN, MORPHINE. MEDICATIONS: MAR reconciled with home medications. REVIEW OF SYSTEMS: Positive as per HPI. She actually denies dysuria. Denies any other symptoms in rest of organ system review. PHYSICAL EXAMINATION: VITAL SIGNS: Show blood pressure of 157/98, heart rate of 91, respiratory rate at 20. She is afebrile, although temperature earlier this morning was 100.4. GENERAL: This is a 61-year-old well-nourished woman, alert and oriented, in no acute distress. LUNGS: Clear. HEART: Regular rate and rhythm. ABDOMEN: Has positive bowel sounds, soft, nontender. EXTREMITIES: Show no edema. SKIN: Warm, soft and dry. LABORATORY DATA: CBC with a WBC of 16.3, hemoglobin 11.6, platelets of 286. Segmented neutrophils at 84, bands at 3. Chemistries with a BUN and creatinine of 23 and 2.2, which is essentially her baseline. LFTs within normal, albumin at 3.2. Urine with TNTC, wbc and many bacteria. ASSESSMENT AND PLAN: The patient is a 61-year-old woman, well known to our service with longstanding history of recurrent C. diff, now admitted with acute urinary tract infection and early septic symptoms. She has been started on antibiotics. We will continue empirically for now until urine culture and sensitivities show specifics. She will receive IV fluid and support as needed. Because of her history of narcotic-seeking behavior, we will avoid IV narcotics, she responds well to oxycodone. We will continue all her other home medications as well. She does have a history of gastroparesis, but has not been on any Reglan for a while. We will hold off on the medication for the time being. Because of history of C. diff, she will be treated with isolation empirically. MARK MONTES MD DR: UR/nts JOB#: [id number] / [id number] GREGORY
[2017-04-07 19:52] VITALS: BP 148/90
[2017-04-07] MEDS: ALPRAZolam 0.5 MG TABLET PO SCH (20:24)
[2017-04-07] MEDS: oxyCODONE/APAP 10/325 1 TAB TABLET PO PRN (20:45)
[2017-04-07 23:27] VITALS: BP 133/83
[2017-04-08] VITALS (7 sets, daily range): BP systolic 126–156; BP diastolic 76–95
[2017-04-08] MEDS: oxyCODONE IR 5 MG TABLET PO PRN ×3 (00:54→18:28)
[2017-04-08] MEDS: oxyCODONE/APAP 10/325 1 TAB TABLET PO PRN ×3 (03:12→20:50)
[2017-04-08] MEDS: IV NORMAL SALINE 1000ML BAG 1,000 ML IV SCH ×3 (03:14→20:48)
[2017-04-08 04:35] LABS: BASO # 0.1 x10^3/uL (0.0-0.2); BASO % 1 % (0-3); EOS % 2 % (0-3); HEMATOCRIT 29.7 % (36.0-47.0); HEMOGLOBIN 9.4 g/dL (12.0-15.5); LYMPH # 1.9 x10^3/uL (1.0-4.8); LYMPH % 19 % (24-48); MEAN CORPUSCULAR HEMOGLOBIN 27 pg (25-35); MEAN CORPUSCULAR HGB CONC 32 g/dL (31-37); MEAN CORPUSCULAR VOLUME 84 fL (79-100); MONO % 10 % (0-9); NEUT % 68 % (31-73); PLATELET COUNT 192 x10^3/uL (140-400); RED BLOOD COUNT 3.53 x10^6/uL (3.50-5.40); RED CELL DISTRIBUTION WIDTH 14.8 % (11.5-14.5); WHITE BLOOD COUNT 9.8 x10^3/uL (4.0-11.0)
[2017-04-08 05:05] LABS: ALBUMIN 2.3 g/dL (3.4-5.0); ALBUMIN/GLOBULIN RATIO 0.5 (1.0-1.7); CALCIUM 8.7 mg/dL (8.5-10.1); GFR 25.4; MAGNESIUM 1.7 mg/dL (1.8-2.4); POTASSIUM 3.9 mmol/L (3.5-5.1); TOTAL BILIRUBIN 0.2 mg/dL (0.2-1.0); TOTAL PROTEIN 6.5 g/dL (6.4-8.2)
[2017-04-08] MEDS: PANTOPRAZOLE 40 MG TABLET.DR. PO SCH (09:04)
[2017-04-08] MEDS: CITALOPRAM 20 MG TABLET. PO SCH (09:05)
[2017-04-08] MEDS: ALPRAZolam 0.5 MG TABLET PO SCH ×3 (09:05→20:50)
--- NOTE | 2017-04-08 10:01 | PDOC ---
PROGRESS NOTES Chief Complaint Chief Complaint UTI Urosepsis ASSESSMENT AND PLAN: 1. UTI: on empiric ceftriax. awaiting culture and sensitivities 2. Leukocytosis: reactive. improving 3. CKD4: creat at baseline 4. HTN: not on meds at home. 5. Hx recurrent C.diff colitis: no sx at this time. 6. Prophylaxis: heparin SQ History of Present Illness History of Present Illness no dizziness, no N/V. mild abd pain (chronic). tired Vitals Vitals Vital Signs Date Time Temp Pulse Resp B/P (MAP) Pulse Ox O2 Delivery O2 Flow Rate FiO2 04/08/17 09:07 95 Room Air 04/08/17 07:00 98.4 75 18 149/89 (109) 98.4 Physical Exam General: Alert, Oriented X3, Cooperative, No acute distress Heart: Regular rate Lungs: Clear Abdomen: Normal bowel sounds, Other (diffuse mild TTP) Extremities: No edema Skin: No rashes Labs LABS Laboratory Tests Test 04/08/17 04:10 White Blood Count 9.8 x10^3/uL (4.0-11.0) Red Blood Count 3.53 x10^6/uL (3.50-5.40) Hemoglobin 9.4 g/dL (12.0-15.5) Hematocrit 29.7 % (36.0-47.0) Mean Corpuscular Volume 84 fL (79-100) Mean Corpuscular Hemoglobin 27 pg (25-35) Mean Corpuscular Hemoglobin Concent 32 g/dL (31-37) Red Cell Distribution Width 14.8 % (11.5-14.5) Platelet Count 192 x10^3/uL (140-400) Neutrophils (%) (Auto) 68 % (31-73) Lymphocytes (%) (Auto) 19 % (24-48) Monocytes (%) (Auto) 10 % (0-9) Eosinophils (%) (Auto) 2 % (0-3) Basophils (%) (Auto) 1 % (0-3) Neutrophils # (Auto) 6.7 x10^3uL (1.8-7.7) Lymphocytes # (Auto) 1.9 x10^3/uL (1.0-4.8) Monocytes # (Auto) 1.0 x10^3/uL (0.0-1.1) Eosinophils # (Auto) 0.1 x10^3/uL (0.0-0.7) Basophils # (Auto) 0.1 x10^3/uL (0.0-0.2) Sodium Level 137 mmol/L (136-145) Potassium Level 3.9 mmol/L (3.5-5.1) Chloride Level 106 mmol/L (98-107) Carbon Dioxide Level 22 mmol/L (21-32) Anion Gap 9 (6-14) Blood Urea Nitrogen 18 mg/dL (7-20) Creatinine 2.0 mg/dL (0.6-1.0) Estimated GFR (Cockcroft-Gault) 25.4 BUN/Creatinine Ratio 9 (6-20) Glucose Level 90 mg/dL (70-99) Calcium Level 8.7 mg/dL (8.5-10.1) Magnesium Level 1.7 mg/dL (1.8-2.4) Total Bilirubin 0.2 mg/dL (0.2-1.0) Aspartate Amino Transf (AST/SGOT) 16 U/L (15-37) Alanine Aminotransferase (ALT/SGPT) 14 U/L (14-59) Alkaline Phosphatase 70 U/L (46-116) Total Protein 6.5 g/dL (6.4-8.2) Albumin 2.3 g/dL (3.4-5.0) Albumin/Globulin Ratio 0.5 (1.0-1.7) MARK MONTES MD Apr 08, 2017 10:01
[2017-04-08] MEDS: CEPHALEXIN 250 MG CAPSULE. PO SCH (20:50)
[2017-04-09] MEDS: oxyCODONE IR 5 MG TABLET PO PRN ×2 (02:28→09:10)
[2017-04-09 03:45] VITALS: BP 168/92
[2017-04-09] MEDS: oxyCODONE/APAP 10/325 1 TAB TABLET PO PRN ×2 (04:16→12:15)
[2017-04-09 07:10] VITALS: BP 131/81
[2017-04-09] MEDS: CEPHALEXIN 250 MG CAPSULE. PO SCH ×2 (07:55→12:14)
[2017-04-09] MEDS: CITALOPRAM 20 MG TABLET. PO SCH (07:55)
[2017-04-09] MEDS: PANTOPRAZOLE 40 MG TABLET.DR. PO SCH (07:55)
[2017-04-09] MEDS: ALPRAZolam 0.5 MG TABLET PO SCH ×2 (07:57→12:14)
[2017-04-09 10:47] VITALS: BP 144/88
[2017-04-09] MEDS ORDERED: ALPR0.5T6 PO (13:09)
[2017-04-09] MEDS ORDERED: ESCITALOPRAM OX10 MG PO (13:09)
[2017-04-09] MEDS ORDERED: OXYC-328 PO (13:09)
[2017-04-09 14:33] VITALS: BP 122/80
--- NOTE | 2017-04-10 22:46 | DS ---
DATE OF DISCHARGE: 04/09/2017 CHIEF COMPLAINT: Nausea, vomiting, abdominal pain. HOSPITAL COURSE: The patient is a 61-year-old woman, well known to our service with a longstanding admissions for abdominal pain, back pain, and C. diff colitis who presented with nausea, vomiting and abdominal pain. She was diagnosed actually with UTI and started on ceftriaxone empirically. The final culture grew out cephalosporin sensitive Klebsiella oxytoca and patient was discharged after completion of her antibiotic regimen. She had significantly improved in her symptoms all around. PHYSICAL EXAMINATION: VITAL SIGNS: Show a blood pressure of 122/80, heart rate of 75, respiratory rate at 18. She is afebrile. GENERAL: This was a well-nourished 61-year-old woman, alert and oriented, in no acute distress. LUNGS: Clear. HEART: Regular rate and rhythm. ABDOMEN: Has positive bowel sounds, soft, nontender. EXTREMITIES: Show no edema. DISCHARGE DIAGNOSIS: Urinary tract infection. DISCHARGE DISPOSITION: To home. DISCHARGE CONDITION: Improved. DISCHARGE MEDICATIONS: Please refer to MAR. DISCHARGE INSTRUCTIONS: The patient will follow up with PCP in 1-2 weeks. MARK MONTES MD DR: MIKE/nts JOB#: [id number] / [id number]
== END 2017-04-09 14:50 | disposition home health service (06) | DRG 872 ==
LOC: ER 22:39 → 6 SOUTH 04-07 01:32
PROVIDERS: ADMIT Internal Medicine; ATTEND Internal Medicine
DX: A41.9 Sepsis, unspecified organism (principal); N18.4 Chronic kidney disease, stage 4 (severe); N39.0 Urinary tract infection, site not specified; E44.1 Mild protein-calorie malnutrition; Z68.27 Body mass index [BMI] 27.0-27.9, adult; E86.0 Dehydration; G89.29 Other chronic pain; I12.9 Hypertensive chronic kidney disease with stage 1 through stage 4 chronic kidney disease, or unspecified chronic kidney disease; K21.9 Gastro-esophageal reflux disease without esophagitis; Z96.652 Presence of left artificial knee joint; M54.9 Dorsalgia, unspecified; F10.20 Alcohol dependence, uncomplicated; F41.9 Anxiety disorder, unspecified; M19.90 Unspecified osteoarthritis, unspecified site; Z76.5 Malingerer [conscious simulation]; Z88.8 Allergy status to other drugs, medicaments and biological substances
CPT/HCPCS: 36415; 74022; 80053; 81001; 83690; 83735; 85007; 85025; 87086; 87186; 87641; 87804; 90686; 93005; 96361; 96365; 96375; J0690; J0696; J1170; J2765; J3010; J7030; 99285-25

== ENCOUNTER 2017-04-15 17:43 | Emergency (ER) | payer MEDICARE ==
[~2017-04-15] VITALS: Ht 162.6 cm; Wt 68.0 kg
--- NOTE | 2017-04-15 19:23 | PHYS DOC ---
Past Medical History Past Medical History: Alcoholism, Anxiety, Arthritis, Hypertension, MRSA, Other Additional Past Medical Histor: c diff, chronic n/v/d & abdominal pain, gastritis, renal insufficiency Past Surgical History: Knee Replacement, Other Additional Past Surgical Histo: back and foot surgery, LEFT KNEE REPLACEMENT X2 Alcohol Use: Occasionally Additional Information: Pt. reports she drinks once a week and has 2-4 beers. Drug Use: None Adult General Chief Complaint Chief Complaint: MECHANICAL FALL HPI HPI Patient is a 61 year old F who presents with a fall and mid back pain and right knee pain. Patient states she tripped over a bed frame on the floor falling back hitting her mid back on the edge of the bed frame. Patient states she had no loss of consciousness. Then patient got up went to the bathroom and slipped and fell and hit her head on the bathtub. The second fall the patient had no loss of consciousness. Patient states she is on blood thinners. Patient has no other injuries noted. Review of Systems Review of Systems GEN: Denies fevers, chills, sweats HEENT: Denies blurred vision, sore throat CV: Denies chest pain RESP: Denies shortness of air, cough GI: Denies n/v/d NEURO: Denies confusion, dizziness MSK: Back and right knee pain Current Medications Current Medications Current Medications Medications (Trade) Dose Ordered Sig/Taz Start Time Stop Time Status Last Admin Dose Admin Fentanyl Citrate (Fentanyl 2ml Vial) 50 mcg 1X ONCE 04/15/17 21:00 04/15/17 21:00 DC Oxycodone/ Acetaminophen (Percocet 5/325) 1 tab 1X ONCE 04/15/17 21:00 04/15/17 21:01 DC 04/15/17 21:05 1 TAB Allergies Allergies Allergies Coded Allergies Type Severity Reaction Last Updated Verified levofloxacin Allergy Intermediate 08/16/16 Yes morphine Allergy Intermediate tolerates Dilaudid 07/26/16 Yes I S O L A T I O N *CONTACT* Allergy Unknown 07/26/16 Yes diphenhydramine HCl Adverse Reaction Intermediate "Jittery on the inside" 07/26 Yes Physical Exam Physical Exam GEN.: No apparent distress. Alert and oriented. HEENT: Head is normocephalic, atraumatic NECK: Supple. No tenderness palpation over the C-spine LUNGS: CTAB. HEART: RRR, S1, S2 present. Peripheral pulses intact ABDOMEN: Soft, nontender. Positive bowel sounds. EXTREMITIES: Without any cyanosis. Tenderness palpation of her right knee with minimal swelling and decreased range of motion secondary to pain BACK: Positive tenderness palpation over the mid thoracic spine with midline tenderness and no step-off NEUROLOGIC: Normal speech, normal tone PSYCHIATRIC: Normal affect, normal mood. SKIN: No ulcerations Current Patient Data Vital Signs Vital Signs Date Time Temp Pulse Resp B/P (MAP) Pulse Ox O2 Delivery O2 Flow Rate FiO2 04/15/17 21:05 84 20 98 04/15/17 21:05 Room Air 04/15/17 18:52 98.3 160/84 (109) 98.3 EKG EKG [] Radiology/Procedures Radiology/Procedures CT scan of the head/C-spine/C-spine/L-spine no obvious fracture X-ray of the right knee shows no obvious fracture[] Course & Med Decision Making Course & Med Decision Making Pertinent Labs and Imaging studies reviewed. (See chart for details) ED course: Patient was seen and examined emergency room CT scans of the head/C-spine/C- spine/L-spine and x-ray of the right knee were ordered 2118: Patient was reevaluated in which she was feeling better updated on x-ray findings and CT results. Patient states that her primary care doctor will not prescribe narcotic pain medication and needs to see a pain specialist for her chronic back pain. Explained to the patient that I would not prescribe her narcotic pain medication either and that she needs to have a pain management doctor Elizabeth her pain medications and she is a fall risk at home. MDM: After reviewing the chart, CC/HPI/PMH, physical exam, [radiological results], the patient did not sustain a significant traumatic injury warranting further workup and/or admission at this time. Patient is stable for discharge. Recommended patient follow-up with PCP or pain management physician discussed her narcotic pain medication usage. Additional verbal discharge instructions were provided to the patient and that if symptoms get worse or any new symptoms arise that are worrisome to the patient she is to return to the emergency room immediately [] Dragon Disclaimer Dragon Disclaimer This electronic medical record was generated, in whole or in part, using a voice recognition dictation system. Departure Departure Impression: Primary Impression: Thoracic spine pain Additional Impressions: Fall Closed head injury Right knee pain Disposition: HOME, SELF-CARE Condition: IMPROVED Referrals: UNKNOWN PCP NAME (PCP) Patient Instructions: Back Pain, Adult Additional Instructions: Please follow-up with your family doctor next one to 2 days Problem Qualifiers SANDRA KWOK DO Apr 15, 2017 19:23
--- NOTE | 2017-04-15 20:28 | RAD ---
CT head without intravenous contrast History: Fall. Comparison: Same examinations August 13, 2016. Technique: Axial images are obtained of the head from the skull base through the vertex without IV contrast. Exposure: One or more of the following individualized dose reduction techniques were utilized for this examination: 1. Automated exposure control 2. Adjustment of the mA and/or kV according to patient size 3. Use of iterative reconstruction technique Findings: The ventricles are appropriate in size, shape, and location for the patient's age. No obvious intracranial mass, mass-effect, midline shift, hemorrhage or obvious acute infarction is identified. Basilar cisterns are patent. Bone windows demonstrate no acute calvarial abnormality. The visualized paranasal sinuses appear clear. Impression: No acute intracranial process. Please note that CT can be relatively insensitive to acute ischemic infarction for up to [address] cervical spine Technique: Noncontrast CT of the cervical spine was performed using helical technique. Axial, sagittal, coronal reconstructions were obtained. Exposure: One or more of the following individualized dose reduction techniques were utilized for this examination: 1. Automated exposure control 2. Adjustment of the mA and/or kV according to patient size 3. Use of iterative reconstruction technique Findings: There is no evidence of acute fracture or acute malalignment involving the cervical spine. No prevertebral soft tissue swelling is identified. Multilevel degeneration is seen with facet and uncovertebral hypertrophy as well as degenerative disc disease. Impression: 1. No evidence of acute traumatic injury involving the cervical spine. 2. Degeneration. Electronically signed by: Hussain Walsh MD (04/15/2017 8:25 PM) [facility]
--- NOTE | 2017-04-15 20:34 | RAD ---
CT of the thoracic and lumbar spine History: Fall, pain. Technique: CT of the thoracic and lumbar spine was performed without intravenous contrast . Axial, sagittal, and coronal 2-D reconstructions were obtained of both the thoracic and lumbar spine. Exposure: One or more of the following individualized dose reduction techniques were utilized for this examination: 1. Automated exposure control 2. Adjustment of the mA and/or kV according to patient size 3. Use of iterative reconstruction technique Findings: There is no evidence of acute traumatic injury involving the thoracic spine. There is no evidence of acute traumatic injury involving the lumbar spine. Levoconvex scoliosis of the lower thoracic and lumbar spine is seen. Laminectomy and posterior spinal fusion changes are seen from L3 through L5. Discectomy changes are seen at L3-4 and L4-5. Multilevel degeneration is present. Impression: 1. No evidence of acute traumatic injury to the thoracic or lumbar spine. Electronically signed by: Hussain Walsh MD (04/15/2017 8:30 PM) [facility]
[2017-04-15] MEDS ORDERED: fentaNYL PF VIAL 100 MCG/2 ML VIAL IV ONE (21:00)
[2017-04-15] MEDS ORDERED: oxyCODONE/APAP 5/325 1 TAB TABLET PO ONE (21:00)
[2017-04-15 21:05] VITALS: BP 143/82
--- NOTE | 2017-04-16 08:05 | RAD ---
Indication: Pain after fall today twice. Technique: 3 views of the right knee are submitted for review. Comparison is from December 02, 2016. Findings: There is no fracture or dislocation. There is no joint effusion or soft tissue swelling. Degenerative changes are stable. They are advanced in the medial compartment. Impression: 1. Negative for acute fracture or dislocation. 2. Advanced osteoarthritis again most notable in the medial compartment.
== END 2017-04-15 21:55 | disposition home or self-care (01) ==
LOC: ER 17:43
DX: S09.90XA Unspecified injury of head, initial encounter (principal); M54.6 Pain in thoracic spine; M25.561 Pain in right knee; I10 Essential (primary) hypertension; F10.20 Alcohol dependence, uncomplicated; Z86.14 Personal history of Methicillin resistant Staphylococcus aureus infection; M19.90 Unspecified osteoarthritis, unspecified site; Z88.1 Allergy status to other antibiotic agents; Z96.652 Presence of left artificial knee joint; Z88.5 Allergy status to narcotic agent; Z91.041 Radiographic dye allergy status; W01.190A Fall on same level from slipping, tripping and stumbling with subsequent striking against furniture, initial encounter; Y93.89 Activity, other specified; Y99.8 Other external cause status; Y92.89 Other specified places as the place of occurrence of the external cause
CPT/HCPCS: 70450; 72125; 72128; 72131; 73562; 99284-25

== ENCOUNTER 2017-06-22 13:21 | Inpatient (IN) | payer MEDICARE ==
[~2017-06-22] VITALS: Ht 162.6 cm; Wt 68.6 kg
[2017-06-22] MEDS ORDERED: IV NORMAL SALINE 1000ML BAG 1,000 ML IV ONE (14:30)
[2017-06-22] MEDS ORDERED: ONDANSETRON PF 4 MG/2 ML VIAL. IV ONE (14:30)
[2017-06-22 14:34] LABS: BILIRUBIN,URINE NEGATIVE (NEG); GLUCOSE,URINE NEGATIVE (NEG); NITRITE,URINE NEGATIVE (NEG); PROTEIN,URINE >=300 mg/dL (NEG-TRACE); UROBILINOGEN,URINE 0.2 mg/dL (0.2 mg/dL)
[2017-06-22 14:39] LABS: BACTERIA,URINE MANY /HPF (0-FEW); SQUAMOUS EPITHELIAL CELL,UR FEW /LPF
--- NOTE | 2017-06-22 15:21 | RAD ---
PQRS Compliance Statement: One or more of the following individualized dose reduction techniques were utilized for this examination: 1. Automated exposure control 2. Adjustment of the mA and/or kV according to patient size 3. Use of iterative reconstruction technique CT HEAD WITHOUT CONTRAST History: dizzy htn . Comparison: CT head without contrast 04/15/2017. Procedure: Axial images are obtained of the head from the skull base through the vertex without IV contrast. Findings: Eastman-white matter differentiation is preserved. The ventricles and sulci are normal for the patient's age. There is scattered periventricular white matter hypoattenuation. This is a nonspecific finding but is commonly due to chronic small vessel ischemic disease in a patient of this age. No mass-effect, midline shift, hemorrhage or obvious acute infarction is identified. Basilar cisterns are patent. Bone windows demonstrate no significant calvarial abnormality.The visualized paranasal sinuses appear clear. Mastoid air cells are well aerated. IMPRESSION: No acute intracranial abnormality.
[2017-06-22 15:32] LABS: BASO # 0.1 x10^3/uL (0.0-0.2); BASO % 2 % (0-3); EOS % 1 % (0-3); HEMOGLOBIN 13.4 g/dL (12.0-15.5); LYMPH # 1.4 x10^3/uL (1.0-4.8); LYMPH % 25 % (24-48); MEAN CORPUSCULAR HEMOGLOBIN 27 pg (25-35); MEAN CORPUSCULAR HGB CONC 33 g/dL (31-37); MEAN CORPUSCULAR VOLUME 84 fL (79-100); MONO % 8 % (0-9); NEUT % 64 % (31-73); PLATELET COUNT 228 x10^3/uL (140-400); RED CELL DISTRIBUTION WIDTH 17.4 % (11.5-14.5); WHITE BLOOD COUNT 5.7 x10^3/uL (4.0-11.0)
[2017-06-22 15:42] LABS: PROTHROMBIN TIME PATIENT 12.6 SEC (11.7-14.0)
[2017-06-22 15:43] LABS: CALCIUM 9.2 mg/dL (8.5-10.1); CREATININE 2.1 mg/dL (0.6-1.0); POTASSIUM 3.2 mmol/L (3.5-5.1)
[2017-06-22 15:49] LABS: ALBUMIN 3.7 g/dL (3.4-5.0); ALBUMIN/GLOBULIN RATIO 0.7 (1.0-1.7); TOTAL BILIRUBIN 0.2 mg/dL (0.2-1.0); TOTAL PROTEIN 8.8 g/dL (6.4-8.2)
[2017-06-22] MEDS: fentaNYL PF VIAL 100 MCG/2 ML VIAL IV PRN ×3 (16:16→21:04)
--- NOTE | 2017-06-22 17:06 | EKG ---
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
[2017-06-22] MEDS ORDERED: ACETAMINOPHEN 325 MG TABLET. PO PRN (17:15)
[2017-06-22] MEDS ORDERED: ONDANSETRON PF 4 MG/2 ML VIAL. IV PRN (17:15)
[2017-06-22] MEDS ORDERED: hydrALAZINE 20 MG/ML VIAL. IVP ONE (17:45)
--- NOTE | 2017-06-22 17:59 | PHYS DOC ---
Past Medical History Past Medical History: Alcoholism, Anxiety, Arthritis, Hypertension, MRSA, Other Additional Past Medical Histor: c diff, chronic n/v/d & abdominal pain, gastritis, renal insufficiency Past Surgical History: Knee Replacement, Other Additional Past Surgical Histo: back and foot surgery, LEFT KNEE REPLACEMENT X2 Alcohol Use: Occasionally Drug Use: None Adult General Chief Complaint Chief Complaint: NAUSEA/VOMITING/DIARRHA HPI HPI Patient is a 61 year old female who presents with nausea & vomiting. The patient is a poor historian. She has had nausea & vomiting since yesterday with many episodes of diarrhea. She reports dysuria & states she was recently treated for UTI with bactrim. She completed antibiotics. She reports dizziness which she describes as lightheadedness & near syncope. She denies headache, vision changes, chest pain, palpitations, shortness of breath, hematemesis, hematochezia/melena, hematuria. She reports back pain. She is not tolerating oral intake. She has history of hypertension, reports difficulty tolerating medications because of illness. Review of Systems Review of Systems Constitutional: Denies fever or chills Eyes: Denies change in visual acuity HENT: Denies nasal congestion or sore throat Respiratory: Denies cough or shortness of breath Cardiovascular: Denies chest pain or edema GI: Reports nausea, vomiting, & diarrhea. Denies abdominal pain, bloody stools : Denies dysuria or hematuria Musculoskeletal: Denies back pain or joint pain Integument: Denies rash or skin lesions Neurologic: Denies headache, focal weakness or sensory changes All other systems were reviewed and found to be within normal limits, except as documented in this note. Current Medications Current Medications Current Medications Medications (Trade) Dose Ordered Sig/Taz Start Time Stop Time Status Last Admin Dose Admin Ondansetron HCl (Zofran) 4 mg 1X ONCE 06/22/17 14:30 06/22/17 14:31 DC 06/22/17 15:23 4 MG Sodium Chloride 1,000 ml @ 1,000 mls/hr 1X ONCE 06/22/17 14:30 06/22/17 15:29 DC 06/22/17 15:21 1,000 MLS/HR Allergies Allergies Allergies Coded Allergies Type Severity Reaction Last Updated Verified levofloxacin Allergy Intermediate 08/16/16 Yes morphine Allergy Intermediate tolerates Dilaudid 07/26/16 Yes I S O L A T I O N *CONTACT* Allergy Unknown 07/26/16 Yes diphenhydramine HCl Adverse Reaction Intermediate "Jittery on the inside" 07/26 Yes Physical Exam Physical Exam Constitutional: Well developed, well nourished, no acute distress, non-toxic appearance. HENT: Normocephalic, atraumatic, bilateral external ears normal, oropharynx moist, nose normal. Eyes: PERRLA, EOMI, conjunctiva normal, no discharge. Neck: supple, no stridor. Cardiovascular: RRR, no murmurs, no edema. Lungs & Thorax: LCTAB, no wheezing, no respiratory distress. Abdomen: soft, no focal tenderness with palpation, no rebound/guarding, no masses or pulsatile masses, nondistended. Skin: Warm, dry, no erythema, no rash. Back: bilateral CVA tenderness is present. Extremities: No tenderness, no edema. Neurologic: Alert and oriented X 3, cranial nerves 2-12 grossly intact, symmetric strength/sensation to upper & lower extremities, no focal deficits noted. Psychologic: flat affect Current Patient Data Vital Signs Vital Signs Date Time Temp Pulse Resp B/P (MAP) Pulse Ox O2 Delivery O2 Flow Rate FiO2 06/22/17 15:48 88 24 179/108 (131) 96 Room Air 06/22/17 13:53 98.2 98.2 Lab Values Laboratory Tests Test 06/22/17 13:46 06/22/17 15:20 Urine Collection Type Unknown Urine Color Yellow Urine Clarity Clear Urine pH 6.0 Urine Specific [place] 1.010 Urine Protein >=300 mg/dL (NEG-TRACE) Urine Glucose (UA) Negative mg/dL (NEG) Urine Ketones (Stick) Negative mg/dL (NEG) Urine Blood Moderate (NEG) Urine Nitrite Negative (NEG) Urine Bilirubin Negative (NEG) Urine Urobilinogen Dipstick 0.2 mg/dL (0.2 mg/dL) Urine Leukocyte Esterase Small (NEG) Urine RBC 3-5 /HPF (0-2) Urine WBC 11-20 /HPF (0-4) Urine Squamous Epithelial Cells Few /LPF Urine Bacteria Many /HPF (0-FEW) White Blood Count 5.7 x10^3/uL (4.0-11.0) Red Blood Count 4.90 x10^6/uL (3.50-5.40) Hemoglobin 13.4 g/dL (12.0-15.5) Hematocrit 41.0 % (36.0-47.0) Mean Corpuscular Volume 84 fL (79-100) Mean Corpuscular Hemoglobin 27 pg (25-35) Mean Corpuscular Hemoglobin Concent 33 g/dL (31-37) Red Cell Distribution Width 17.4 % (11.5-14.5) H Platelet Count 228 x10^3/uL (140-400) Neutrophils (%) (Auto) 64 % (31-73) Lymphocytes (%) (Auto) 25 % (24-48) Monocytes (%) (Auto) 8 % (0-9) Eosinophils (%) (Auto) 1 % (0-3) Basophils (%) (Auto) 2 % (0-3) Neutrophils # (Auto) 3.7 x10^3uL (1.8-7.7) Lymphocytes # (Auto) 1.4 x10^3/uL (1.0-4.8) Monocytes # (Auto) 0.4 x10^3/uL (0.0-1.1) Eosinophils # (Auto) 0.1 x10^3/uL (0.0-0.7) Basophils # (Auto) 0.1 x10^3/uL (0.0-0.2) Prothrombin Time 12.6 SEC (11.7-14.0) Prothrombin Time INR 1.0 (0.8-1.1) PTT 33 SEC (24-38) Sodium Level 132 mmol/L (136-145) L Potassium Level 3.2 mmol/L (3.5-5.1) L Chloride Level 90 mmol/L (98-107) L Carbon Dioxide Level 24 mmol/L (21-32) Anion Gap 18 (6-14) H Blood Urea Nitrogen 17 mg/dL (7-20) Creatinine 2.1 mg/dL (0.6-1.0) H Estimated GFR (Cockcroft-Gault) 24.0 BUN/Creatinine Ratio 8 (6-20) Glucose Level 86 mg/dL (70-99) Calcium Level 9.2 mg/dL (8.5-10.1) Total Bilirubin 0.2 mg/dL (0.2-1.0) Aspartate Amino Transferase (AST) 41 U/L (15-37) H Alanine Aminotransferase (ALT) 25 U/L (14-59) Alkaline Phosphatase 100 U/L (46-116) Troponin I Quantitative < 0.017 ng/mL (0.000-0.055) OJ-Oju-K-Type Natriuretic Peptide 1762 pg/mL (0-124) H Total Protein 8.8 g/dL (6.4-8.2) H Albumin 3.7 g/dL (3.4-5.0) Albumin/Globulin Ratio 0.7 (1.0-1.7) L Lipase 212 U/L (73-393) Laboratory Tests 06/22/17 15:20 Laboratory Tests 06/22/17 15:20 EKG EKG Interpreted by me: 1450: Normal sinus rhythm rate 85, no acute ST/T wave changes, QTc prolonged 488 ms, no ectopy, artifact present. Radiology/Procedures Radiology/Procedures PROCEDURE: CT HEAD WO CONTRAST PQRS Compliance Statement: One or more of the following individualized dose reduction techniques were utilized for this examination: 1. Automated exposure control 2. Adjustment of the mA and/or kV according to patient size 3. Use of iterative reconstruction technique CT HEAD WITHOUT CONTRAST History: dizzy htn . Comparison: CT head without contrast 04/15/2017. Procedure: Axial images are obtained of the head from the skull base through the vertex without IV contrast. Findings: Eastman-white matter differentiation is preserved. The ventricles and sulci are normal for the patient's age. There is scattered periventricular white matter hypoattenuation. This is a nonspecific finding but is commonly due to chronic small vessel ischemic disease in a patient of this age. No mass-effect, midline shift, hemorrhage or obvious acute infarction is identified. Basilar cisterns are patent. Bone windows demonstrate no significant calvarial abnormality.The visualized paranasal sinuses appear clear. Mastoid air cells are well aerated. IMPRESSION: No acute intracranial abnormality. DICTATED and SIGNED BY: SHALINI REYNA[] Course & Med Decision Making Course & Med Decision Making Pertinent Labs and Imaging studies reviewed. (See chart for details) The patient presents with nausea, vomiting, diarrhea. She had markedly elevated blood pressure 220s systolic upon arrival, with lightheadedness/ dizziness. Obtained head CT which was negative for acute intracranial process, & her blood pressure decreased to 160s systolic. Later there was rise to 180s so she received hydralazine. She was given IV fluids & zofran for nausa & vomiting. Labs were as above. She has persistent UTI. No abdominal tenderness , no imaging at this time. Urine culture sent. Gave rocephin here in ED for pyelonephritis. Recommended admission for failed outpatient treatment with inability to tolerate oral intake. She agrees with plan of care. Discussed with Dr. Kc who agrees to admit to inpatient status. The patient is admitted in stable condition. [] Dragon Disclaimer Dragon Disclaimer This electronic medical record was generated, in whole or in part, using a voice recognition dictation system. Departure Departure Impression: Primary Impression: Acute pyelonephritis Additional Impressions: Accelerated hypertension Hypokalemia Acute renal failure Elevated brain natriuretic peptide (BNP) level Disposition: 09 ADMITTED INPATIENT Admitting Physician: Alexia Kc Condition: STABLE Referrals: UNKNOWN PCP NAME (PCP) Problem Qualifiers JOSE C CHUA MD Jun 22, 2017 17:59
[2017-06-22 18:39] VITALS: BP_SYST 158; BP_SYST 165; BP_DIAS 101; BP_DIAS 104
[2017-06-22] MEDS: IV NORMAL SALINE 1000ML BAG 1,000 ML IV SCH (18:43)
[2017-06-22] MEDS: POTASSIUM CHLORIDE 10MEQ 100 ML IV SCH ×4 (18:45→23:07)
[2017-06-22] MEDS ORDERED: POTASSIUM CHLORIDE 20 MEQ TABLET.ER. PO ONE (20:45)
[2017-06-22] MEDS ORDERED: METOCLOPRAMIDE 10 MG TABLET. PO PRN (20:45)
[2017-06-22] MEDS ORDERED: LOPERAMIDE 2 MG CAPSULE PO PRN (20:45)
--- NOTE | 2017-06-22 20:45 | PDOC1 ---
History and Physical Date of Admission Date of Admission DATE: 06/22/17 TIME: 20:39 History of Present Illness History of Present Illness Mr. Rodriguez was brought to the ER by her daugvhter, she didn;'t want to come, as the holiday season. worsening back pain, lethargy, fatigue. Also poor po intake and nausea, having trouble keeping clears down today. Back pain is severe, needs MRI to get another epidural, pain 9./10 now, wants pain meds, would try lidoderm patch flank pain and nausea, urine not increased freq. or painful Past Medical History Cardiovascular: HTN Heme/Onc: Anemia NOS Psych: Anxiety, Depression Rheumatologic: Fibromyalgia Infectious disease: Other Renal/: Chronic renal insuff, Other Past Surgical History Past Surgical History: Total knee replacement, Tubal Ligation, Other Family History Family History: Stroke Social History Smoke: No ALCOHOL: none Drugs: None Current Problem List Problem List Problems Medical Problems: (1) Acute pyelonephritis Status: Acute Problems: Current Medications Current Medications Current Medications Sodium Chloride 1,000 ml @ 1,000 mls/hr 1X ONCE IV Last administered on 06/22 15:21; Start 06/22/17 at 14:30; Stop 06/22/17 at 15:29; Status DC Ondansetron HCl (Zofran) 4 mg 1X ONCE IV Last administered on 06/22/17 15:23 ; Start 06/22/17 at 14:30; Stop 06/22/17 at 14:31; Status DC Fentanyl Citrate (Fentanyl 2ml Vial) 50 mcg PRN Q15MIN PRN IV PAIN GREATER THAN 3/10 Last administered on 06/22/17 16:16; Start 06/22/17 at 16:00; Stop 06/23/17 at 15:59 Ceftriaxone Sodium 50 ml @ 100 mls/hr 1X ONCE IV Last administered on 16:20; Start 06/22/17 at 16:00; Stop 06/22/17 at 16:29; Status DC Hydralazine HCl (Apresoline Inj) 10 mg 1X ONCE IVP Last administered on 17:29; Start 06/22/17 at 17:45; Stop 06/22/17 at 17:46; Status DC Ondansetron HCl (Zofran) 4 mg PRN Q8HRS PRN IV NAUSEA/VOMITING; Start at 17:15; Stop 06/23/17 at 17:14 Fentanyl Citrate (Fentanyl 2ml Vial) 50 mcg PRN Q2HR PRN IV PAIN Last administered on 06/22/17 19:03; Start 06/22/17 at 17:15; Stop 06/23/17 at 17 :14 Sodium Chloride 1,000 ml @ 100 mls/hr Q10H IV Last administered on 06/22/17 18:43; Start 06/22/17 at 17:09; Stop 06/23/17 at 17:08 Acetaminophen (Tylenol) 650 mg PRN Q4HRS PRN PO FEVER; Start 06/22/17 at 17:15 ; Stop 06/23/17 at 17:14 Potassium Chloride 100 ml @ 100 mls/hr Q1H IV Last administered on 06/22/17 18:45; Start 06/22/17 at 18:30; Stop 06/22/17 at 22:29 Active Scripts Active Percocet 10-325 Mg Tablet (Oxycodone/Acetaminophen) 1 Each Tablet 0.5-1 Tab PO Q6HRS PRN Alprazolam 0.5 Mg Tablet 1 Tab PO TID Escitalopram Oxalate 10 Mg Tablet 1 Tab PO DAILY Loperamide (Loperamide Hcl) 2 Mg Capsule 2 Mg PO PRN Q15MIN PRN Reported Reglan (Metoclopramide Hcl) 10 Mg Tablet 1 Tab PO PRN QID Nexium Capsule (Esomeprazole Magnesium) 40 Mg Capsule.dr 1 Cap PO DAILY Allergies Allergies: Coded Allergies: levofloxacin (Verified Allergy, Intermediate, 08/16/16) TOLERATES CIPRO morphine (Verified Allergy, Intermediate, tolerates Dilaudid, 07/26/16) I S O L A T I O N *CONTACT* (Verified Allergy, Unknown, 07/26/16) mrsa diphenhydramine HCl (Verified Adverse Reaction, Intermediate, "Jittery on the inside", 07/26/16) ROS General: YES: Fatigue, Malaise, Appetite PSYCHOLOGICAL ROS: YES: Anxiety, Memory difficulties, Sleep disturbances, No: Behavioral Disorder, Concentration difficultie, Decreased libido, Depression, Disorientation, Hallucinations, Hostility, Irritablity, Mood Swings , Obsessive thoughts Eyes: No Blurry vision, No Decreased vision, No Double vision, No Dry eyes, No Excessive tearing, No Eye Pain, No Itchy Eyes, No Loss of vision, No Photophobia , No Scotomata, No Uses contacts, No Uses glasses, No Other HEENT: YES: Heacaches, No: Visual Changes, Hearing change, Nasal congestion, Nasal discharge, Oral lesions, Sinus pain, Sore Throat, Epistaxis, Sneezing, Snoring, Tinnitus, Vertigo, Vocal changes, Other Respiratory: No: Cough, Hemoptysis, Orthopnea, Pleuritic Pain, Shortness of breath, SOB with excertion, Sputum Changes, Stridor, Tachypnea, Wheezing, Other Cardiovascular: No Chest Pain, No Palpitations, No Orthopnea, No Paroxysmal Noc. Dyspnea, No Edema, No Lt Headedness, No Other Gastrointestinal: Yes Nausea, Yes Abdominal Pain, No Vomiting, No Diarrhea, No Constipation, No Melena, No Hematochezia, No Other Genitourinary: YES Flank Pain, No Dysuria, No Frequency, No Incontinence, No Hematuria, No Retention, No Discharge, No Other, No , No , No , No , No , No , No Musculoskeletal: Yes Joint Pain, Yes Joint Stiffness, Yes Pain In: (back), No Gait Disturbance, No Joint Swelling, No Muscle Pain, No Muscular Weakness , No Swelling In:, No Other Neurological: No Behavorial Changes, No Bowel/Bladder ControlChng, No Confusion , No Dizziness, No Gait Disturbance, No Headaches, No Impaired Coord/balance, No Memory Loss, No Numbness/Tingling, No Seizures, No Speech Problems, No Tremors, No Visual Changes, No Weakness, No Other Skin: Yes Dry Skin, No Eczema, No Hair Changes, No Lumps, No Mole Changes, No Mottling, No Nail Changes, No Pruritus, No Rash, No Skin Lesion Changes, No Other, No Acne Physical Exam General: Alert, Cooperative, mild distress, moderate distress (pain) HEENT: PERRLA, EOMI, Mucous membr. moist/pink Lungs: Clear to auscultation, Normal air movement Heart: no murmurs Abdomen: Normal bowel sounds, Soft Extremities: No cyanosis, No edema Skin: No rashes, No significant lesion Neuro: Normal speech, Normal tone, Sensation intact, Cranial nerves 3-12 NL Psych/Mental Status: Mental status NL Vitals Vitals Vital Signs Date Time Temp Pulse Resp B/P (MAP) Pulse Ox O2 Delivery O2 Flow Rate FiO2 06/22/17 19:48 Room Air 06/22/17 19:03 20 97 06/22/17 18:39 99.1 110 158/104 (122) 99.1 165/101 (122) Labs Labs Laboratory Tests Test 06/22/17 13:46 06/22/17 15:20 Urine Collection Type Unknown Urine Color Yellow Urine Clarity Clear Urine pH 6.0 Urine Specific [place] 1.010 Urine Protein >=300 mg/dL (NEG-TRACE) Urine Glucose (UA) Negative mg/dL (NEG) Urine Ketones (Stick) Negative mg/dL (NEG) Urine Blood Moderate (NEG) Urine Nitrite Negative (NEG) Urine Bilirubin Negative (NEG) Urine Urobilinogen Dipstick 0.2 mg/dL (0.2 mg/dL) Urine Leukocyte Esterase Small (NEG) Urine RBC 3-5 /HPF (0-2) Urine WBC 11-20 /HPF (0-4) Urine Squamous Epithelial Cells Few /LPF Urine Bacteria Many /HPF (0-FEW) White Blood Count 5.7 x10^3/uL (4.0-11.0) Red Blood Count 4.90 x10^6/uL (3.50-5.40) Hemoglobin 13.4 g/dL (12.0-15.5) Hematocrit 41.0 % (36.0-47.0) Mean Corpuscular Volume 84 fL (79-100) Mean Corpuscular Hemoglobin 27 pg (25-35) Mean Corpuscular Hemoglobin Concent 33 g/dL (31-37) Red Cell Distribution Width 17.4 % (11.5-14.5) Platelet Count 228 x10^3/uL (140-400) Neutrophils (%) (Auto) 64 % (31-73) Lymphocytes (%) (Auto) 25 % (24-48) Monocytes (%) (Auto) 8 % (0-9) Eosinophils (%) (Auto) 1 % (0-3) Basophils (%) (Auto) 2 % (0-3) Neutrophils # (Auto) 3.7 x10^3uL (1.8-7.7) Lymphocytes # (Auto) 1.4 x10^3/uL (1.0-4.8) Monocytes # (Auto) 0.4 x10^3/uL (0.0-1.1) Eosinophils # (Auto) 0.1 x10^3/uL (0.0-0.7) Basophils # (Auto) 0.1 x10^3/uL (0.0-0.2) Prothrombin Time 12.6 SEC (11.7-14.0) Prothromb Time International Ratio 1.0 (0.8-1.1) Activated Partial Thromboplast Time 33 SEC (24-38) Sodium Level 132 mmol/L (136-145) Potassium Level 3.2 mmol/L (3.5-5.1) Chloride Level 90 mmol/L (98-107) Carbon Dioxide Level 24 mmol/L (21-32) Anion Gap 18 (6-14) Blood Urea Nitrogen 17 mg/dL (7-20) Creatinine 2.1 mg/dL (0.6-1.0) Estimated GFR (Cockcroft-Gault) 24.0 BUN/Creatinine Ratio 8 (6-20) Glucose Level 86 mg/dL (70-99) Calcium Level 9.2 mg/dL (8.5-10.1) Total Bilirubin 0.2 mg/dL (0.2-1.0) Aspartate Amino Transf (AST/SGOT) 41 U/L (15-37) Alanine Aminotransferase (ALT/SGPT) 25 U/L (14-59) Alkaline Phosphatase 100 U/L (46-116) Troponin I Quantitative < 0.017 ng/mL (0.000-0.055) LE-Ymr-[id number]-Type Natriuretic Peptide 1762 pg/mL (0-124) Total Protein 8.8 g/dL (6.4-8.2) Albumin 3.7 g/dL (3.4-5.0) Albumin/Globulin Ratio 0.7 (1.0-1.7) Lipase 212 U/L (73-393) Laboratory Tests Test 06/22/17 13:46 06/22/17 15:20 Urine Collection Type Unknown Urine Color Yellow Urine Clarity Clear Urine pH 6.0 Urine Specific [place] 1.010 Urine Protein >=300 mg/dL (NEG-TRACE) Urine Glucose (UA) Negative mg/dL (NEG) Urine Ketones (Stick) Negative mg/dL (NEG) Urine Blood Moderate (NEG) Urine Nitrite Negative (NEG) Urine Bilirubin Negative (NEG) Urine Urobilinogen Dipstick 0.2 mg/dL (0.2 mg/dL) Urine Leukocyte Esterase Small (NEG) Urine RBC 3-5 /HPF (0-2) Urine WBC 11-20 /HPF (0-4) Urine Squamous Epithelial Cells Few /LPF Urine Bacteria Many /HPF (0-FEW) White Blood Count 5.7 x10^3/uL (4.0-11.0) Red Blood Count 4.90 x10^6/uL (3.50-5.40) Hemoglobin 13.4 g/dL (12.0-15.5) Hematocrit 41.0 % (36.0-47.0) Mean Corpuscular Volume 84 fL (79-100) Mean Corpuscular Hemoglobin 27 pg (25-35) Mean Corpuscular Hemoglobin Concent 33 g/dL (31-37) Red Cell Distribution Width 17.4 % (11.5-14.5) Platelet Count 228 x10^3/uL (140-400) Neutrophils (%) (Auto) 64 % (31-73) Lymphocytes (%) (Auto) 25 % (24-48) Monocytes (%) (Auto) 8 % (0-9) Eosinophils (%) (Auto) 1 % (0-3) Basophils (%) (Auto) 2 % (0-3) Neutrophils # (Auto) 3.7 x10^3uL (1.8-7.7) Lymphocytes # (Auto) 1.4 x10^3/uL (1.0-4.8) Monocytes # (Auto) 0.4 x10^3/uL (0.0-1.1) Eosinophils # (Auto) 0.1 x10^3/uL (0.0-0.7) Basophils # (Auto) 0.1 x10^3/uL (0.0-0.2) Prothrombin Time 12.6 SEC (11.7-14.0) Prothromb Time International Ratio 1.0 (0.8-1.1) Activated Partial Thromboplast Time 33 SEC (24-38) Sodium Level 132 mmol/L (136-145) Potassium Level 3.2 mmol/L (3.5-5.1) Chloride Level 90 mmol/L (98-107) Carbon Dioxide Level 24 mmol/L (21-32) Anion Gap 18 (6-14) Blood Urea Nitrogen 17 mg/dL (7-20) Creatinine 2.1 mg/dL (0.6-1.0) Estimated GFR (Cockcroft-Gault) 24.0 BUN/Creatinine Ratio 8 (6-20) Glucose Level 86 mg/dL (70-99) Calcium Level 9.2 mg/dL (8.5-10.1) Total Bilirubin 0.2 mg/dL (0.2-1.0) Aspartate Amino Transf (AST/SGOT) 41 U/L (15-37) Alanine Aminotransferase (ALT/SGPT) 25 U/L (14-59) Alkaline Phosphatase 100 U/L (46-116) Troponin I Quantitative < 0.017 ng/mL (0.000-0.055) IE-Izb-T-Type Natriuretic Peptide 1762 pg/mL (0-124) Total Protein 8.8 g/dL (6.4-8.2) Albumin 3.7 g/dL (3.4-5.0) Albumin/Globulin Ratio 0.7 (1.0-1.7) Lipase 212 U/L (73-393) VTE Prophylaxis Ordered VTE Prophylaxis Devices: No VTE Pharmacological Prophylaxi: Yes Assessment/Plan Assessment/Plan acute pain to back and flank UTI? minimal LE, rocephin started, may stop soon CKD 4 back pain, acute on chronic w. s/p prior epidural injections weakness, debility chronic pain, narcotic dependence fibromyalgia, depression and anxiety admit ERNIE FAITH MD Jun 22, 2017 20:45
[2017-06-22] MEDS: ALPRAZolam 0.5 MG TABLET PO SCH (21:11)
[2017-06-22] MEDS: LIDOCAINE (700MG/PATCH) PATCH. TD SCH (21:30)
[2017-06-22 23:00] VITALS: BP 180/105
[2017-06-23] MEDS: fentaNYL PF VIAL 100 MCG/2 ML VIAL IV PRN ×6 (00:12→12:49)
[2017-06-23] MEDS: IV NORMAL SALINE 1000ML BAG 1,000 ML IV SCH ×2 (02:44→13:10)
[2017-06-23 03:00] VITALS: BP 168/102
[2017-06-23] MEDS: PANTOPRAZOLE 40 MG TABLET.DR. PO SCH (06:23)
[2017-06-23 06:39] LABS: BASO # 0.1 x10^3/uL (0.0-0.2); BASO % 1 % (0-3); EOS % 1 % (0-3); HEMATOCRIT 34.8 % (36.0-47.0); HEMOGLOBIN 11.3 g/dL (12.0-15.5); LYMPH # 1.4 x10^3/uL (1.0-4.8); LYMPH % 24 % (24-48); MEAN CORPUSCULAR HEMOGLOBIN 27 pg (25-35); MEAN CORPUSCULAR HGB CONC 32 g/dL (31-37); MEAN CORPUSCULAR VOLUME 85 fL (79-100); MONO % 12 % (0-9); NEUT % 62 % (31-73); PLATELET COUNT 193 x10^3/uL (140-400); RED BLOOD COUNT 4.12 x10^6/uL (3.50-5.40); RED CELL DISTRIBUTION WIDTH 17.5 % (11.5-14.5); WHITE BLOOD COUNT 5.7 x10^3/uL (4.0-11.0)
[2017-06-23 06:47] LABS: CALCIUM 8.3 mg/dL (8.5-10.1); CREATININE 2.2 mg/dL (0.6-1.0); GFR 22.8
[2017-06-23 07:00] VITALS: BP 144/84
[2017-06-23] MEDS: POTASSIUM CHLORIDE 20 MEQ TABLET.ER. PO SCH (07:55)
[2017-06-23] MEDS: ALPRAZolam 0.5 MG TABLET PO SCH ×3 (07:55→21:02)
[2017-06-23] MEDS: CITALOPRAM 20 MG TABLET. PO SCH (07:55)
[2017-06-23] MEDS: LIDOCAINE (700MG/PATCH) PATCH. TD SCH (07:57)
[2017-06-23 11:00] VITALS: BP 176/97
--- NOTE | 2017-06-23 12:01 | PDOC2 ---
CONSULT Date of Consult Date of Consult DATE: 06/23/17 TIME: 11:50 Reason for Consult Reason for Consult: CKD IV Referring Physician Referring Physician: Dr Kc Identification/Chief Complaint Chief Complaint back pain Problems: Source Source: Chart review, Patient History of Present Illness Reason for Visit: as dictated Past Medical History Cardiovascular: HTN Heme/Onc: Anemia NOS Psych: Anxiety, Depression Rheumatologic: Fibromyalgia Infectious disease: Other Renal/: Chronic renal insuff, Other Past Surgical History Past Surgical History: Total knee replacement, Tubal Ligation, Other Family History Family History: Stroke Social History No ALCOHOL: none Drugs: None Lives: Alone Current Problem List Problem List Problems Medical Problems: (1) Accelerated hypertension Status: Acute (2) Acute pyelonephritis Status: Acute (3) Acute renal failure Status: Acute (4) Elevated brain natriuretic peptide (BNP) level Status: Acute (5) Hypokalemia Status: Acute Current Medications Current Medications Current Medications Sodium Chloride 1,000 ml @ 1,000 mls/hr 1X ONCE IV Last administered on 06/22 15:21; Start 06/22/17 at 14:30; Stop 06/22/17 at 15:29; Status DC Ondansetron HCl (Zofran) 4 mg 1X ONCE IV Last administered on 06/22/17 15:23 ; Start 06/22/17 at 14:30; Stop 06/22/17 at 14:31; Status DC Fentanyl Citrate (Fentanyl 2ml Vial) 50 mcg PRN Q15MIN PRN IV PAIN GREATER THAN 3/10 Last administered on 06/23/17 06:23; Start 06/22/17 at 16:00; Stop 06/23/17 at 15:59 Ceftriaxone Sodium 50 ml @ 100 mls/hr 1X ONCE IV Last administered on 16:20; Start 06/22/17 at 16:00; Stop 06/22/17 at 16:29; Status DC Hydralazine HCl (Apresoline Inj) 10 mg 1X ONCE IVP Last administered on 17:29; Start 06/22/17 at 17:45; Stop 06/22/17 at 17:46; Status DC Ondansetron HCl (Zofran) 4 mg PRN Q8HRS PRN IV NAUSEA/VOMITING; Start at 17:15; Stop 06/23/17 at 17:14 Fentanyl Citrate (Fentanyl 2ml Vial) 50 mcg PRN Q2HR PRN IV PAIN Last administered on 06/23/17 09:49; Start 06/22/17 at 17:15; Stop 06/23/17 at 17 :14 Sodium Chloride 1,000 ml @ 100 mls/hr Q10H IV Last administered on 06/23/17 02:44; Start 06/22/17 at 17:09; Stop 06/23/17 at 17:08 Acetaminophen (Tylenol) 650 mg PRN Q4HRS PRN PO FEVER; Start 06/22/17 at 17:15 ; Stop 06/23/17 at 17:14 Potassium Chloride 100 ml @ 100 mls/hr Q1H IV Last administered on 06/22/17 23:07; Start 06/22/17 at 18:30; Stop 06/22/17 at 22:29; Status DC Ceftriaxone Sodium 1 gm/ Dextrose 50 ml @ 100 mls/hr Q24H IV ; Start 06/22/17 at 20:45; Stop 06/22/17 at 20:46; Status DC Potassium Chloride (Klor-Con) 20 meq [id number] PO Last administered on 07:55; Start 06/23/17 at 08:00 Potassium Chloride (Klor-Con) 20 meq 1X ONCE PO Last administered on 21:17; Start 06/22/17 at 20:45; Stop 06/22/17 at 20:46; Status DC Lidocaine (Lidoderm) 1 patch DAILY TD Last administered on 06/23/17 07:57; Start 06/22/17 at 21:30 Alprazolam (Xanax) 0.5 mg TID PO Last administered on 06/23/17 07:55; Start 06/22/17 at 21:00 Loperamide HCl (Imodium) 2 mg PRN Q15MIN PRN PO DIARRHEA; Start 06/22/17 at 20 :45 Metoclopramide HCl (Reglan) 10 mg PRN QID PRN PO NAUSEA; Start 06/22/17 at 20: 45 Oxycodone/ Acetaminophen (Percocet 10/325) 1 tab PRN Q6HRS PRN PO severe pain; Start 06/22/17 at 20:45 Citalopram Hydrobromide (CeleXA) 20 mg DAILY PO Last administered on 07:55; Start 06/23/17 at 09:00 Pantoprazole Sodium (Protonix) 40 mg DAILYAC PO Last administered on 06:23; Start 06/23/17 at 07:30 Ceftriaxone Sodium (Rocephin) 1 gm Q24H IVP ; Start 06/23/17 at 17:00 Active Scripts Active Percocet 10-325 Mg Tablet (Oxycodone/Acetaminophen) 1 Each Tablet 0.5-1 Tab PO Q6HRS PRN Alprazolam 0.5 Mg Tablet 1 Tab PO TID Escitalopram Oxalate 10 Mg Tablet 1 Tab PO DAILY Loperamide (Loperamide Hcl) 2 Mg Capsule 2 Mg PO PRN Q15MIN PRN Reported Reglan (Metoclopramide Hcl) 10 Mg Tablet 1 Tab PO PRN QID Nexium Capsule (Esomeprazole Magnesium) 40 Mg Capsule. 1 Cap PO DAILY Allergies Allergies: Coded Allergies: levofloxacin (Verified Allergy, Intermediate, 08/16/16) TOLERATES CIPRO morphine (Verified Allergy, Intermediate, tolerates Dilaudid, 07/26/16) I S O L A T I O N *CONTACT* (Verified Allergy, Unknown, 07/26/16) mrsa diphenhydramine HCl (Verified Adverse Reaction, Intermediate, "Jittery on the inside", 07/26/16) ROS Review of System GEN: subj Fevers no Chills EYES: no new Visual Complaints ENT: no EN Drainage no Hearing deficiets CVS: no Orthopnea no CP RESP: no SOB no ROBIN GI: + Nausea + Vomiting : no Dysuria no Urgency No Gross hematruia HEME: no easy bruising no Palp Ly Nodes NEURO no Focal Weakness no Sz PSYCH: no Suicidal Ideation no Depression SKIN: no Rashes ENDO: no Polyuria or Polydipsia no Hot/Cold Intolerance MU SK: + ch Back Arthraigia no Myalgia Physical Exam Physical Exam General Appearance: Awake Alert Oriented x 3 In no Distress Eyes: VIsion Unchanged Conjunctiva Normal EN: No EN Drainage Mucous Memb. moist Neck: no JVD no JVP Supple no Thyromegaly CVS: S1 S2 no Murmur No Gallop No Rub no Edema Resp: no Rales no Rhonchi no Acc. Muscle use GI: BAS +ve NO Bruit Non Tender Non Distended : no CVA tenderness; no Suprapubic Tenderness SKIN: no Rashes Breast Exam deferred Mu.Sk: Adequate ROM no Muscle Atrophy Heme: Unable to palpate Obvious LAD no Splenomegaly NEURO: Good Strength and Tone Cranial Nerves II - XII grossly intact Psych: not Depressed / Flattish affect no Active hallucination Vital Signs Vital Signs Date Time Temp Pulse Resp B/P (MAP) Pulse Ox O2 Delivery O2 Flow Rate FiO2 06/23/17 10:19 20 99 Room Air 06/23/17 07:00 98.6 85 144/84 (104) 98.6 Assessment & Plan CKD IV - stable function and Creat: Current FLuid and E-lyte status does not necessitate emergent need for Dialysis. Will re-evaluate for Dialysis in am back pain - appears to be [place] in nature given area affected; Doubt Pyleo. low suspicion for stone (given none noted in the past on CT) Doubt Renal vein Duplex (previous proteinruia 1.2gms) but will check duplex for completion Renal scelrosis as ntoe don Previous imagign studies ? UTI - defer Abx to Primary team - Cx NA yet Marginal Anemia: watch trend. Epogen if hgb < 11. HTN asso with CKD : Current BP meds reviewed. See orders for changes. Proteinuria - Could quantitate with ratio but may be skewed by Blood in UA; hence Not doen. also ? UTI Discussed Plan of Care and prognosis etc. at length with family. Labs Labs Laboratory Tests Test 06/22/17 13:46 06/22/17 15:20 06/23/17 04:00 Urine Collection Type Unknown Urine Color Yellow Urine Clarity Clear Urine pH 6.0 Urine Specific [place] 1.010 Urine Protein >=300 mg/dL (NEG-TRACE) Urine Glucose (UA) Negative mg/dL (NEG) Urine Ketones (Stick) Negative mg/dL (NEG) Urine Blood Moderate (NEG) Urine Nitrite Negative (NEG) Urine Bilirubin Negative (NEG) Urine Urobilinogen Dipstick 0.2 mg/dL (0.2 mg/dL) Urine Leukocyte Esterase Small (NEG) Urine RBC 3-5 /HPF (0-2) Urine WBC 11-20 /HPF (0-4) Urine Squamous Epithelial Cells Few /LPF Urine Bacteria Many /HPF (0-FEW) White Blood Count 5.7 x10^3/uL (4.0-11.0) 5.7 x10^3/uL (4.0-11.0) Red Blood Count 4.90 x10^6/uL (3.50-5.40) 4.12 x10^6/uL (3.50-5.40) Hemoglobin 13.4 g/dL (12.0-15.5) 11.3 g/dL (12.0-15.5) Hematocrit 41.0 % (36.0-47.0) 34.8 % (36.0-47.0) Mean Corpuscular Volume 84 fL (79-100) 85 fL (79-100) Mean Corpuscular Hemoglobin 27 pg (25-35) 27 pg (25-35) Mean Corpuscular Hemoglobin Concent 33 g/dL (31-37) 32 g/dL (31-37) Red Cell Distribution Width 17.4 % (11.5-14.5) 17.5 % (11.5-14.5) Platelet Count 228 x10^3/uL (140-400) 193 x10^3/uL (140-400) Neutrophils (%) (Auto) 64 % (31-73) 62 % (31-73) Lymphocytes (%) (Auto) 25 % (24-48) 24 % (24-48) Monocytes (%) (Auto) 8 % (0-9) 12 % (0-9) Eosinophils (%) (Auto) 1 % (0-3) 1 % (0-3) Basophils (%) (Auto) 2 % (0-3) 1 % (0-3) Neutrophils # (Auto) 3.7 x10^3uL (1.8-7.7) 3.5 x10^3uL (1.8-7.7) Lymphocytes # (Auto) 1.4 x10^3/uL (1.0-4.8) 1.4 x10^3/uL (1.0-4.8) Monocytes # (Auto) 0.4 x10^3/uL (0.0-1.1) 0.7 x10^3/uL (0.0-1.1) Eosinophils # (Auto) 0.1 x10^3/uL (0.0-0.7) 0.0 x10^3/uL (0.0-0.7) Basophils # (Auto) 0.1 x10^3/uL (0.0-0.2) 0.1 x10^3/uL (0.0-0.2) Prothrombin Time 12.6 SEC (11.7-14.0) Prothromb Time International Ratio 1.0 (0.8-1.1) Activated Partial Thromboplast Time 33 SEC (24-38) Sodium Level 132 mmol/L (136-145) 133 mmol/L (136-145) Potassium Level 3.2 mmol/L (3.5-5.1) 4.0 mmol/L (3.5-5.1) Chloride Level 90 mmol/L (98-107) 98 mmol/L (98-107) Carbon Dioxide Level 24 mmol/L (21-32) 24 mmol/L (21-32) Anion Gap 18 (6-14) 11 (6-14) Blood Urea Nitrogen 17 mg/dL (7-20) 18 mg/dL (7-20) Creatinine 2.1 mg/dL (0.6-1.0) 2.2 mg/dL (0.6-1.0) Estimated GFR (Cockcroft-Gault) 24.0 22.8 BUN/Creatinine Ratio 8 (6-20) Glucose Level 86 mg/dL (70-99) 96 mg/dL (70-99) Calcium Level 9.2 mg/dL (8.5-10.1) 8.3 mg/dL (8.5-10.1) Total Bilirubin 0.2 mg/dL (0.2-1.0) Aspartate Amino Transf (AST/SGOT) 41 U/L (15-37) Alanine Aminotransferase (ALT/SGPT) 25 U/L (14-59) Alkaline Phosphatase 100 U/L (46-116) Troponin I Quantitative < 0.017 ng/mL (0.000-0.055) BQ-Gox-E-Type Natriuretic Peptide 1762 pg/mL (0-124) Total Protein 8.8 g/dL (6.4-8.2) Albumin 3.7 g/dL (3.4-5.0) Albumin/Globulin Ratio 0.7 (1.0-1.7) Lipase 212 U/L (73-393) Laboratory Tests Test 06/22/17 13:46 06/22/17 15:20 06/23/17 04:00 Urine Collection Type Unknown Urine Color Yellow Urine Clarity Clear Urine pH 6.0 Urine Specific [place] 1.010 Urine Protein >=300 mg/dL (NEG-TRACE) Urine Glucose (UA) Negative mg/dL (NEG) Urine Ketones (Stick) Negative mg/dL (NEG) Urine Blood Moderate (NEG) Urine Nitrite Negative (NEG) Urine Bilirubin Negative (NEG) Urine Urobilinogen Dipstick 0.2 mg/dL (0.2 mg/dL) Urine Leukocyte Esterase Small (NEG) Urine RBC 3-5 /HPF (0-2) Urine WBC 11-20 /HPF (0-4) Urine Squamous Epithelial Cells Few /LPF Urine Bacteria Many /HPF (0-FEW) White Blood Count 5.7 x10^3/uL (4.0-11.0) 5.7 x10^3/uL (4.0-11.0) Red Blood Count 4.90 x10^6/uL (3.50-5.40) 4.12 x10^6/uL (3.50-5.40) Hemoglobin 13.4 g/dL (12.0-15.5) 11.3 g/dL (12.0-15.5) Hematocrit 41.0 % (36.0-47.0) 34.8 % (36.0-47.0) Mean Corpuscular Volume 84 fL (79-100) 85 fL (79-100) Mean Corpuscular Hemoglobin 27 pg (25-35) 27 pg (25-35) Mean Corpuscular Hemoglobin Concent 33 g/dL (31-37) 32 g/dL (31-37) Red Cell Distribution Width 17.4 % (11.5-14.5) 17.5 % (11.5-14.5) Platelet Count 228 x10^3/uL (140-400) 193 x10^3/uL (140-400) Neutrophils (%) (Auto) 64 % (31-73) 62 % (31-73) Lymphocytes (%) (Auto) 25 % (24-48) 24 % (24-48) Monocytes (%) (Auto) 8 % (0-9) 12 % (0-9) Eosinophils (%) (Auto) 1 % (0-3) 1 % (0-3) Basophils (%) (Auto) 2 % (0-3) 1 % (0-3) Neutrophils # (Auto) 3.7 x10^3uL (1.8-7.7) 3.5 x10^3uL (1.8-7.7) Lymphocytes # (Auto) 1.4 x10^3/uL (1.0-4.8) 1.4 x10^3/uL (1.0-4.8) Monocytes # (Auto) 0.4 x10^3/uL (0.0-1.1) 0.7 x10^3/uL (0.0-1.1) Eosinophils # (Auto) 0.1 x10^3/uL (0.0-0.7) 0.0 x10^3/uL (0.0-0.7) Basophils # (Auto) 0.1 x10^3/uL (0.0-0.2) 0.1 x10^3/uL (0.0-0.2) Prothrombin Time 12.6 SEC (11.7-14.0) Prothromb Time International Ratio 1.0 (0.8-1.1) Activated Partial Thromboplast Time 33 SEC (24-38) Sodium Level 132 mmol/L (136-145) 133 mmol/L (136-145) Potassium Level 3.2 mmol/L (3.5-5.1) 4.0 mmol/L (3.5-5.1) Chloride Level 90 mmol/L (98-107) 98 mmol/L (98-107) Carbon Dioxide Level 24 mmol/L (21-32) 24 mmol/L (21-32) Anion Gap 18 (6-14) 11 (6-14) Blood Urea Nitrogen 17 mg/dL (7-20) 18 mg/dL (7-20) Creatinine 2.1 mg/dL (0.6-1.0) 2.2 mg/dL (0.6-1.0) Estimated GFR (Cockcroft-Gault) 24.0 22.8 BUN/Creatinine Ratio 8 (6-20) Glucose Level 86 mg/dL (70-99) 96 mg/dL (70-99) Calcium Level 9.2 mg/dL (8.5-10.1) 8.3 mg/dL (8.5-10.1) Total Bilirubin 0.2 mg/dL (0.2-1.0) Aspartate Amino Transf (AST/SGOT) 41 U/L (15-37) Alanine Aminotransferase (ALT/SGPT) 25 U/L (14-59) Alkaline Phosphatase 100 U/L (46-116) Troponin I Quantitative < 0.017 ng/mL (0.000-0.055) BM-Kna-U-Type Natriuretic Peptide 1762 pg/mL (0-124) Total Protein 8.8 g/dL (6.4-8.2) Albumin 3.7 g/dL (3.4-5.0) Albumin/Globulin Ratio 0.7 (1.0-1.7) Lipase 212 U/L (73-393) CHLOE ONEILL MD Jun 23, 2017 12:01
--- NOTE | 2017-06-23 12:52 | PDOC ---
PROGRESS NOTES Chief Complaint Chief Complaint N/V, acute pyelonephritis, UTI, flank pain HTN Hypokalemia, resolved CKD 4 History of Present Illness History of Present Illness Patient doesn't have a fever or elevated white count Receiving antibiotics Cultures pending VSS Complains of pain Vitals Vitals Vital Signs Date Time Temp Pulse Resp B/P (MAP) Pulse Ox O2 Delivery O2 Flow Rate FiO2 06/23/17 10:19 20 99 Room Air 06/23/17 07:00 98.6 85 144/84 (104) 98.6 Physical Exam General: Alert, Oriented X3, Cooperative, mild distress, moderate distress ( pain) Heart: Regular rate, Normal S1, Normal S2 Lungs: Clear Abdomen: Normal bowel sounds, Soft Extremities: No cyanosis, No edema Skin: No rashes, No significant lesion Labs LABS Laboratory Tests Test 06/22/17 13:46 06/22/17 15:20 06/23/17 04:00 Urine Collection Type Unknown Urine Color Yellow Urine Clarity Clear Urine pH 6.0 Urine Specific [place] 1.010 Urine Protein >=300 mg/dL (NEG-TRACE) Urine Glucose (UA) Negative mg/dL (NEG) Urine Ketones (Stick) Negative mg/dL (NEG) Urine Blood Moderate (NEG) Urine Nitrite Negative (NEG) Urine Bilirubin Negative (NEG) Urine Urobilinogen Dipstick 0.2 mg/dL (0.2 mg/dL) Urine Leukocyte Esterase Small (NEG) Urine RBC 3-5 /HPF (0-2) Urine WBC 11-20 /HPF (0-4) Urine Squamous Epithelial Cells Few /LPF Urine Bacteria Many /HPF (0-FEW) White Blood Count 5.7 x10^3/uL (4.0-11.0) 5.7 x10^3/uL (4.0-11.0) Red Blood Count 4.90 x10^6/uL (3.50-5.40) 4.12 x10^6/uL (3.50-5.40) Hemoglobin 13.4 g/dL (12.0-15.5) 11.3 g/dL (12.0-15.5) Hematocrit 41.0 % (36.0-47.0) 34.8 % (36.0-47.0) Mean Corpuscular Volume 84 fL (79-100) 85 fL (79-100) Mean Corpuscular Hemoglobin 27 pg (25-35) 27 pg (25-35) Mean Corpuscular Hemoglobin Concent 33 g/dL (31-37) 32 g/dL (31-37) Red Cell Distribution Width 17.4 % (11.5-14.5) 17.5 % (11.5-14.5) Platelet Count 228 x10^3/uL (140-400) 193 x10^3/uL (140-400) Neutrophils (%) (Auto) 64 % (31-73) 62 % (31-73) Lymphocytes (%) (Auto) 25 % (24-48) 24 % (24-48) Monocytes (%) (Auto) 8 % (0-9) 12 % (0-9) Eosinophils (%) (Auto) 1 % (0-3) 1 % (0-3) Basophils (%) (Auto) 2 % (0-3) 1 % (0-3) Neutrophils # (Auto) 3.7 x10^3uL (1.8-7.7) 3.5 x10^3uL (1.8-7.7) Lymphocytes # (Auto) 1.4 x10^3/uL (1.0-4.8) 1.4 x10^3/uL (1.0-4.8) Monocytes # (Auto) 0.4 x10^3/uL (0.0-1.1) 0.7 x10^3/uL (0.0-1.1) Eosinophils # (Auto) 0.1 x10^3/uL (0.0-0.7) 0.0 x10^3/uL (0.0-0.7) Basophils # (Auto) 0.1 x10^3/uL (0.0-0.2) 0.1 x10^3/uL (0.0-0.2) Prothrombin Time 12.6 SEC (11.7-14.0) Prothromb Time International Ratio 1.0 (0.8-1.1) Activated Partial Thromboplast Time 33 SEC (24-38) Sodium Level 132 mmol/L (136-145) 133 mmol/L (136-145) Potassium Level 3.2 mmol/L (3.5-5.1) 4.0 mmol/L (3.5-5.1) Chloride Level 90 mmol/L (98-107) 98 mmol/L (98-107) Carbon Dioxide Level 24 mmol/L (21-32) 24 mmol/L (21-32) Anion Gap 18 (6-14) 11 (6-14) Blood Urea Nitrogen 17 mg/dL (7-20) 18 mg/dL (7-20) Creatinine 2.1 mg/dL (0.6-1.0) 2.2 mg/dL (0.6-1.0) Estimated GFR (Cockcroft-Gault) 24.0 22.8 BUN/Creatinine Ratio 8 (6-20) Glucose Level 86 mg/dL (70-99) 96 mg/dL (70-99) Calcium Level 9.2 mg/dL (8.5-10.1) 8.3 mg/dL (8.5-10.1) Total Bilirubin 0.2 mg/dL (0.2-1.0) Aspartate Amino Transf (AST/SGOT) 41 U/L (15-37) Alanine Aminotransferase (ALT/SGPT) 25 U/L (14-59) Alkaline Phosphatase 100 U/L (46-116) Troponin I Quantitative < 0.017 ng/mL (0.000-0.055) QZ-[id number]-H-Type Natriuretic Peptide 1762 pg/mL (0-124) Total Protein 8.8 g/dL (6.4-8.2) Albumin 3.7 g/dL (3.4-5.0) Albumin/Globulin Ratio 0.7 (1.0-1.7) Lipase 212 U/L (73-393) Review of Systems Review of Systems Denies dyspnea Denies chest pain Assessment and Plan Assessmemt and Plan Problems Medical Problems: (1) Accelerated hypertension Status: Acute (2) Acute pyelonephritis Status: Acute (3) Acute renal failure Status: Acute (4) Elevated brain natriuretic peptide (BNP) level Status: Acute (5) Hypokalemia Status: Acute Assessment N/V, acute pyelonephritis, UTI, flank pain HTN Hypokalemia, resolved CKD 4 Plan Antibiotics - ceftriaxone Awaiting cultures per ID PT/OT Recheck labs Appreciate subspecialty Problems: Comment Review of Relevant I have reviewed the following items blade (where applicable) has been applied. Labs Laboratory Tests Test 06/22/17 13:46 06/22/17 15:20 06/23/17 04:00 Urine Collection Type Unknown Urine Color Yellow Urine Clarity Clear Urine pH 6.0 Urine Specific [place] 1.010 Urine Protein >=300 mg/dL (NEG-TRACE) Urine Glucose (UA) Negative mg/dL (NEG) Urine Ketones (Stick) Negative mg/dL (NEG) Urine Blood Moderate (NEG) Urine Nitrite Negative (NEG) Urine Bilirubin Negative (NEG) Urine Urobilinogen Dipstick 0.2 mg/dL (0.2 mg/dL) Urine Leukocyte Esterase Small (NEG) Urine RBC 3-5 /HPF (0-2) Urine WBC 11-20 /HPF (0-4) Urine Squamous Epithelial Cells Few /LPF Urine Bacteria Many /HPF (0-FEW) White Blood Count 5.7 x10^3/uL (4.0-11.0) 5.7 x10^3/uL (4.0-11.0) Red Blood Count 4.90 x10^6/uL (3.50-5.40) 4.12 x10^6/uL (3.50-5.40) Hemoglobin 13.4 g/dL (12.0-15.5) 11.3 g/dL (12.0-15.5) Hematocrit 41.0 % (36.0-47.0) 34.8 % (36.0-47.0) Mean Corpuscular Volume 84 fL (79-100) 85 fL (79-100) Mean Corpuscular Hemoglobin 27 pg (25-35) 27 pg (25-35) Mean Corpuscular Hemoglobin Concent 33 g/dL (31-37) 32 g/dL (31-37) Red Cell Distribution Width 17.4 % (11.5-14.5) 17.5 % (11.5-14.5) Platelet Count 228 x10^3/uL (140-400) 193 x10^3/uL (140-400) Neutrophils (%) (Auto) 64 % (31-73) 62 % (31-73) Lymphocytes (%) (Auto) 25 % (24-48) 24 % (24-48) Monocytes (%) (Auto) 8 % (0-9) 12 % (0-9) Eosinophils (%) (Auto) 1 % (0-3) 1 % (0-3) Basophils (%) (Auto) 2 % (0-3) 1 % (0-3) Neutrophils # (Auto) 3.7 x10^3uL (1.8-7.7) 3.5 x10^3uL (1.8-7.7) Lymphocytes # (Auto) 1.4 x10^3/uL (1.0-4.8) 1.4 x10^3/uL (1.0-4.8) Monocytes # (Auto) 0.4 x10^3/uL (0.0-1.1) 0.7 x10^3/uL (0.0-1.1) Eosinophils # (Auto) 0.1 x10^3/uL (0.0-0.7) 0.0 x10^3/uL (0.0-0.7) Basophils # (Auto) 0.1 x10^3/uL (0.0-0.2) 0.1 x10^3/uL (0.0-0.2) Prothrombin Time 12.6 SEC (11.7-14.0) Prothromb Time International Ratio 1.0 (0.8-1.1) Activated Partial Thromboplast Time 33 SEC (24-38) Sodium Level 132 mmol/L (136-145) 133 mmol/L (136-145) Potassium Level 3.2 mmol/L (3.5-5.1) 4.0 mmol/L (3.5-5.1) Chloride Level 90 mmol/L (98-107) 98 mmol/L (98-107) Carbon Dioxide Level 24 mmol/L (21-32) 24 mmol/L (21-32) Anion Gap 18 (6-14) 11 (6-14) Blood Urea Nitrogen 17 mg/dL (7-20) 18 mg/dL (7-20) Creatinine 2.1 mg/dL (0.6-1.0) 2.2 mg/dL (0.6-1.0) Estimated GFR (Cockcroft-Gault) 24.0 22.8 BUN/Creatinine Ratio 8 (6-20) Glucose Level 86 mg/dL (70-99) 96 mg/dL (70-99) Calcium Level 9.2 mg/dL (8.5-10.1) 8.3 mg/dL (8.5-10.1) Total Bilirubin 0.2 mg/dL (0.2-1.0) Aspartate Amino Transf (AST/SGOT) 41 U/L (15-37) Alanine Aminotransferase (ALT/SGPT) 25 U/L (14-59) Alkaline Phosphatase 100 U/L (46-116) Troponin I Quantitative < 0.017 ng/mL (0.000-0.055) PB-Igf-N-Type Natriuretic Peptide 1762 pg/mL (0-124) Total Protein 8.8 g/dL (6.4-8.2) Albumin 3.7 g/dL (3.4-5.0) Albumin/Globulin Ratio 0.7 (1.0-1.7) Lipase 212 U/L (73-393) Laboratory Tests Test 06/22/17 13:46 06/22/17 15:20 06/23/17 04:00 Urine Collection Type Unknown Urine Color Yellow Urine Clarity Clear Urine pH 6.0 Urine Specific [place] 1.010 Urine Protein >=300 mg/dL (NEG-TRACE) Urine Glucose (UA) Negative mg/dL (NEG) Urine Ketones (Stick) Negative mg/dL (NEG) Urine Blood Moderate (NEG) Urine Nitrite Negative (NEG) Urine Bilirubin Negative (NEG) Urine Urobilinogen Dipstick 0.2 mg/dL (0.2 mg/dL) Urine Leukocyte Esterase Small (NEG) Urine RBC 3-5 /HPF (0-2) Urine WBC 11-20 /HPF (0-4) Urine Squamous Epithelial Cells Few /LPF Urine Bacteria Many /HPF (0-FEW) White Blood Count 5.7 x10^3/uL (4.0-11.0) 5.7 x10^3/uL (4.0-11.0) Red Blood Count 4.90 x10^6/uL (3.50-5.40) 4.12 x10^6/uL (3.50-5.40) Hemoglobin 13.4 g/dL (12.0-15.5) 11.3 g/dL (12.0-15.5) Hematocrit 41.0 % (36.0-47.0) 34.8 % (36.0-47.0) Mean Corpuscular Volume 84 fL (79-100) 85 fL (79-100) Mean Corpuscular Hemoglobin 27 pg (25-35) 27 pg (25-35) Mean Corpuscular Hemoglobin Concent 33 g/dL (31-37) 32 g/dL (31-37) Red Cell Distribution Width 17.4 % (11.5-14.5) 17.5 % (11.5-14.5) Platelet Count 228 x10^3/uL (140-400) 193 x10^3/uL (140-400) Neutrophils (%) (Auto) 64 % (31-73) 62 % (31-73) Lymphocytes (%) (Auto) 25 % (24-48) 24 % (24-48) Monocytes (%) (Auto) 8 % (0-9) 12 % (0-9) Eosinophils (%) (Auto) 1 % (0-3) 1 % (0-3) Basophils (%) (Auto) 2 % (0-3) 1 % (0-3) Neutrophils # (Auto) 3.7 x10^3uL (1.8-7.7) 3.5 x10^3uL (1.8-7.7) Lymphocytes # (Auto) 1.4 x10^3/uL (1.0-4.8) 1.4 x10^3/uL (1.0-4.8) Monocytes # (Auto) 0.4 x10^3/uL (0.0-1.1) 0.7 x10^3/uL (0.0-1.1) Eosinophils # (Auto) 0.1 x10^3/uL (0.0-0.7) 0.0 x10^3/uL (0.0-0.7) Basophils # (Auto) 0.1 x10^3/uL (0.0-0.2) 0.1 x10^3/uL (0.0-0.2) Prothrombin Time 12.6 SEC (11.7-14.0) Prothromb Time International Ratio 1.0 (0.8-1.1) Activated Partial Thromboplast Time 33 SEC (24-38) Sodium Level 132 mmol/L (136-145) 133 mmol/L (136-145) Potassium Level 3.2 mmol/L (3.5-5.1) 4.0 mmol/L (3.5-5.1) Chloride Level 90 mmol/L (98-107) 98 mmol/L (98-107) Carbon Dioxide Level 24 mmol/L (21-32) 24 mmol/L (21-32) Anion Gap 18 (6-14) 11 (6-14) Blood Urea Nitrogen 17 mg/dL (7-20) 18 mg/dL (7-20) Creatinine 2.1 mg/dL (0.6-1.0) 2.2 mg/dL (0.6-1.0) Estimated GFR (Cockcroft-Gault) 24.0 22.8 BUN/Creatinine Ratio 8 (6-20) Glucose Level 86 mg/dL (70-99) 96 mg/dL (70-99) Calcium Level 9.2 mg/dL (8.5-10.1) 8.3 mg/dL (8.5-10.1) Total Bilirubin 0.2 mg/dL (0.2-1.0) Aspartate Amino Transf (AST/SGOT) 41 U/L (15-37) Alanine Aminotransferase (ALT/SGPT) 25 U/L (14-59) Alkaline Phosphatase 100 U/L (46-116) Troponin I Quantitative < 0.017 ng/mL (0.000-0.055) KE-Ztz-K-Type Natriuretic Peptide 1762 pg/mL (0-124) Total Protein 8.8 g/dL (6.4-8.2) Albumin 3.7 g/dL (3.4-5.0) Albumin/Globulin Ratio 0.7 (1.0-1.7) Lipase 212 U/L (73-393) Microbiology 06/22/17 Urine Culture - Preliminary, Resulted 06/22/17 Urine Culture Result 1 (DARCIE) - Preliminary, Resulted Medications Current Medications Sodium Chloride 1,000 ml @ 1,000 mls/hr 1X ONCE IV Last administered on 06/22 15:21; Start 06/22/17 at 14:30; Stop 06/22/17 at 15:29; Status DC Ondansetron HCl (Zofran) 4 mg 1X ONCE IV Last administered on 06/22/17 15:23 ; Start 06/22/17 at 14:30; Stop 06/22/17 at 14:31; Status DC Fentanyl Citrate (Fentanyl 2ml Vial) 50 mcg PRN Q15MIN PRN IV PAIN GREATER THAN 3/10 Last administered on 06/23/17 06:23; Start 06/22/17 at 16:00; Stop 06/23/17 at 15:59 Ceftriaxone Sodium 50 ml @ 100 mls/hr 1X ONCE IV Last administered on 16:20; Start 06/22/17 at 16:00; Stop 06/22/17 at 16:29; Status DC Hydralazine HCl (Apresoline Inj) 10 mg 1X ONCE IVP Last administered on 17:29; Start 06/22/17 at 17:45; Stop 06/22/17 at 17:46; Status DC Ondansetron HCl (Zofran) 4 mg PRN Q8HRS PRN IV NAUSEA/VOMITING; Start at 17:15; Stop 06/23/17 at 17:14 Fentanyl Citrate (Fentanyl 2ml Vial) 50 mcg PRN Q2HR PRN IV PAIN Last administered on 06/23/17 09:49; Start 06/22/17 at 17:15; Stop 06/23/17 at 17 :14 Sodium Chloride 1,000 ml @ 100 mls/hr Q10H IV Last administered on 06/23/17 02:44; Start 06/22/17 at 17:09; Stop 06/23/17 at 17:08 Acetaminophen (Tylenol) 650 mg PRN Q4HRS PRN PO FEVER; Start 06/22/17 at 17:15 ; Stop 06/23/17 at 17:14 Potassium Chloride 100 ml @ 100 mls/hr Q1H IV Last administered on 06/22/17 23:07; Start 06/22/17 at 18:30; Stop 06/22/17 at 22:29; Status DC Ceftriaxone Sodium 1 gm/ Dextrose 50 ml @ 100 mls/hr Q24H IV ; Start 06/22/17 at 20:45; Stop 06/22/17 at 20:46; Status DC Potassium Chloride (Klor-Con) 20 meq [id number] PO Last administered on 07:55; Start 06/23/17 at 08:00 Potassium Chloride (Klor-Con) 20 meq 1X ONCE PO Last administered on 21:17; Start 06/22/17 at 20:45; Stop 06/22/17 at 20:46; Status DC Lidocaine (Lidoderm) 1 patch DAILY TD Last administered on 06/23/17 07:57; Start 06/22/17 at 21:30 Alprazolam (Xanax) 0.5 mg TID PO Last administered on 06/23/17 07:55; Start 06/22/17 at 21:00 Loperamide HCl (Imodium) 2 mg PRN Q15MIN PRN PO DIARRHEA; Start 06/22/17 at 20 :45 Metoclopramide HCl (Reglan) 10 mg PRN QID PRN PO NAUSEA; Start 06/22/17 at 20: 45 Oxycodone/ Acetaminophen (Percocet 10/325) 1 tab PRN Q6HRS PRN PO severe pain; Start 06/22/17 at 20:45 Citalopram Hydrobromide (CeleXA) 20 mg DAILY PO Last administered on 07:55; Start 06/23/17 at 09:00 Pantoprazole Sodium (Protonix) 40 mg DAILYAC PO Last administered on 06:23; Start 06/23/17 at 07:30 Ceftriaxone Sodium (Rocephin) 1 gm Q24H IVP ; Start 06/23/17 at 17:00 Active Scripts Active Percocet 10-325 Mg Tablet (Oxycodone/Acetaminophen) 1 Each Tablet 0.5-1 Tab PO Q6HRS PRN Alprazolam 0.5 Mg Tablet 1 Tab PO TID Escitalopram Oxalate 10 Mg Tablet 1 Tab PO DAILY Loperamide (Loperamide Hcl) 2 Mg Capsule 2 Mg PO PRN Q15MIN PRN Reported Reglan (Metoclopramide Hcl) 10 Mg Tablet 1 Tab PO PRN QID Nexium Capsule (Esomeprazole Magnesium) 40 Mg Capsule. 1 Cap PO DAILY Vitals/I & O Vital Sign - Last 24 Hours 06/22/17 06/22/17 06/22/17 06/22/17 13:53 14:18 14:48 15:18 Temp 98.2 98.2 Pulse 93 83 84 Resp 12 B/P (MAP) 200/114 (142) 163/105 (124) 193/114 (140) 178/112 (134) Pulse Ox 94 96 96 96 O2 Delivery Room Air Room Air Room Air Room Air 06/22/17 06/22/17 06/22/17 06/22/17 15:48 16:16 16:18 16:48 Pulse 88 82 88 Resp 24 11 B/P (MAP) 179/108 (131) 177/104 (128) 189/120 (143) Pulse Ox 96 97 96 91 O2 Delivery Room Air Room Air Room Air Room Air 06/22/17 06/22/17 06/22/17 06/22/17 17:29 17:34 17:48 18:39 Temp 99.1 99.1 Pulse 87 92 104 110 Resp 21 20 B/P (MAP) 198/118 187/96 (126) 163/88 (113) 158/104 (122) 165/101 (122) Pulse Ox 93 96 97 O2 Delivery Room Air Room Air Room Air 06/22/17 06/22/17 06/22/17 06/22/17 19:03 19:33 19:48 20:00 Resp 20 Pulse Ox 97 O2 Delivery Room Air Room Air Room Air Room Air 06/22/17 06/22/17 06/23/17 06/23/17 21:04 23:00 00:12 02:44 Temp 99.3 99.3 Pulse 102 Resp 18 18 18 18 B/P (MAP) 180/105 (130) Pulse Ox 97 92 92 92 O2 Delivery Room Air Room Air Room Air Room Air 06/23/17 06/23/17 06/23/17 06/23/17 03:00 06:23 06:53 07:00 Temp 98.8 98.6 98.8 98.6 Pulse 101 85 Resp 18 18 20 18 B/P (MAP) 168/102 (124) 144/84 (104) Pulse Ox 93 93 93 99 O2 Delivery Room Air Room Air Room Air Room Air 06/23/17 06/23/17 06/23/17 08:00 09:49 10:19 Resp 20 20 Pulse Ox 99 99 O2 Delivery Room Air Room Air Room Air Intake and Output 06/22/17 06/22/17 06/23/17 15:00 23:00 07:00 Intake Total 1300 ml 200 ml Output Total 0 ml Balance 1300 ml 200 ml CASTLE,NIAL K III DO Jun 23, 2017 12:52
[2017-06-23 15:00] VITALS: BP 149/86
[2017-06-23] MEDS: HYDROmorphone 2 MG/ML VIAL IV PRN ×2 (16:39→20:18)
[2017-06-23] MEDS ORDERED: cefTRIAXone IV Push 1 GM VIAL. IVP SCH (17:00)
[2017-06-23 19:00] VITALS: BP 138/77
--- NOTE | 2017-06-23 21:49 | CONS ---
DATE OF CONSULTATION: 06/23/2017 PRIMARY PHYSICIAN: Dr. Kc. REASON FOR CONSULTATION: Chronic renal insufficiency stage 4. HISTORY OF PRESENT ILLNESS: The patient is a 61-year-old female presented with nausea and vomiting and diarrhea. She was seen in the ER. She also complained of back pain. She was admitted for the same by Dr. Kc. She initially was brought in by her daughter for the same. She was also noted to be more lethargic and fatigued to have a poor p.o. intake. She has had some nausea and vomiting over the last few days. She is felt to have possible pyelonephritis. She denies dysuria, urgency or frequency, per se. Creatinine was noted to be 2.2, which is close to her baseline. We were asked to see her for the same. Sodium is 132 and potassium of 3.2 on presentation with a gap of 18. Gap is closed at this time. She has chronic paraproteinemia and her protein electrophoresis has been negative in the past. Head CT showed no acute intracranial abnormalities. PAST MEDICAL HISTORY: Significant for CKD stage 4, issues with neck pain, DJD of the spine, heart murmur, hypertension, esophagitis, peptic ulcer disease, pancreatitis, hiatal hernia, previous history of diarrhea on and off, frequent UTIs, previous urinary retention, chronic arthritis, osteoarthritis, joint replacements bilateral knee, back surgery in the past, questionable history of lupus, depression, previous alcohol abuse. FAMILY HISTORY: Positive for stroke, cancer, hypertension, GERD, depression, cardiomyopathy, autoimmune diseases and angina. No family history of renal insufficiency that she is aware of. SOCIAL HISTORY: Nonsmoker, currently nondrinker, but is known to have had alcoholism in the past. For rest of details, see electronic records. CHLOE ONEILL MD DR: SHAWNEE/hal JOB#: [id number] / [id number]
[2017-06-23 23:00] VITALS: BP 159/89
[2017-06-24] MEDS: oxyCODONE/APAP 10/325 1 TAB TABLET PO PRN ×2 (00:08→09:31)
[2017-06-24] MEDS: HYDROmorphone 2 MG/ML VIAL IV PRN ×3 (01:43→10:54)
[2017-06-24 03:00] VITALS: BP 142/87
[2017-06-24 04:44] LABS: BASO % 1 % (0-3); EOS % 5 % (0-3); HEMOGLOBIN 10.3 g/dL (12.0-15.5); LYMPH # 1.9 x10^3/uL (1.0-4.8); LYMPH % 36 % (24-48); MEAN CORPUSCULAR HEMOGLOBIN 28 pg (25-35); MEAN CORPUSCULAR HGB CONC 32 g/dL (31-37); MEAN CORPUSCULAR VOLUME 87 fL (79-100); MONO % 9 % (0-9); NEUT % 49 % (31-73); PLATELET COUNT 163 x10^3/uL (140-400); RED BLOOD COUNT 3.67 x10^6/uL (3.50-5.40); RED CELL DISTRIBUTION WIDTH 17.8 % (11.5-14.5); WHITE BLOOD COUNT 5.2 x10^3/uL (4.0-11.0)
[2017-06-24 05:02] LABS: CALCIUM 8.5 mg/dL (8.5-10.1); CREATININE 2.4 mg/dL (0.6-1.0); GFR 20.6; POTASSIUM 4.4 mmol/L (3.5-5.1)
[2017-06-24] MEDS: PANTOPRAZOLE 40 MG TABLET.DR. PO SCH (06:21)
[2017-06-24 07:10] VITALS: BP 133/88
[2017-06-24] MEDS ORDERED: LACTOBACILLUS RHAMNOSUS GG 1 CAPSULE. PO SCH (09:00)
[2017-06-24] MEDS: POTASSIUM CHLORIDE 20 MEQ TABLET.ER. PO SCH (09:29)
[2017-06-24] MEDS: CITALOPRAM 20 MG TABLET. PO SCH (09:30)
[2017-06-24] MEDS: LIDOCAINE (700MG/PATCH) PATCH. TD SCH (09:39)
[2017-06-24] MEDS: ALPRAZolam 0.5 MG TABLET PO SCH (09:39)
[2017-06-24 10:30] VITALS: BP 174/102
--- NOTE | 2017-06-24 10:41 | PDOC ---
PROGRESS NOTES Chief Complaint Chief Complaint N/V, acute pyelonephritis, UTI, flank pain HTN Hypokalemia, resolved CKD 4 History of Present Illness History of Present Illness Patient doesn't have a fever or elevated white count Receiving antibiotics Cultures pending VSS Nephrology doubts there is pyelonephritis. Wants to start epogen if Hgb continues to drop DW nurse Vitals Vitals Vital Signs Date Time Temp Pulse Resp B/P (MAP) Pulse Ox O2 Delivery O2 Flow Rate FiO2 06/24/17 09:31 20 95 Room Air 06/24/17 07:10 97.7 92 133/88 (103) 97.7 Physical Exam General: Alert, Oriented X3, Cooperative, mild distress, moderate distress ( pain) Heart: Regular rate, Normal S1, Normal S2 Lungs: Clear Abdomen: Normal bowel sounds, Soft Extremities: No cyanosis, No edema Skin: No rashes, No significant lesion Labs LABS Laboratory Tests Test 06/24/17 03:50 White Blood Count 5.2 x10^3/uL (4.0-11.0) Red Blood Count 3.67 x10^6/uL (3.50-5.40) Hemoglobin 10.3 g/dL (12.0-15.5) Hematocrit 32.0 % (36.0-47.0) Mean Corpuscular Volume 87 fL (79-100) Mean Corpuscular Hemoglobin 28 pg (25-35) Mean Corpuscular Hemoglobin Concent 32 g/dL (31-37) Red Cell Distribution Width 17.8 % (11.5-14.5) Platelet Count 163 x10^3/uL (140-400) Neutrophils (%) (Auto) 49 % (31-73) Lymphocytes (%) (Auto) 36 % (24-48) Monocytes (%) (Auto) 9 % (0-9) Eosinophils (%) (Auto) 5 % (0-3) Basophils (%) (Auto) 1 % (0-3) Neutrophils # (Auto) 2.5 x10^3uL (1.8-7.7) Lymphocytes # (Auto) 1.9 x10^3/uL (1.0-4.8) Monocytes # (Auto) 0.5 x10^3/uL (0.0-1.1) Eosinophils # (Auto) 0.2 x10^3/uL (0.0-0.7) Basophils # (Auto) 0.0 x10^3/uL (0.0-0.2) Sodium Level 139 mmol/L (136-145) Potassium Level 4.4 mmol/L (3.5-5.1) Chloride Level 105 mmol/L (98-107) Carbon Dioxide Level 24 mmol/L (21-32) Anion Gap 10 (6-14) Blood Urea Nitrogen 22 mg/dL (7-20) Creatinine 2.4 mg/dL (0.6-1.0) Estimated GFR (Cockcroft-Gault) 20.6 Glucose Level 102 mg/dL (70-99) Calcium Level 8.5 mg/dL (8.5-10.1) Review of Systems Review of Systems Denies abdominal pain Denies dyspnea Assessment and Plan Assessmemt and Plan Problems Medical Problems: (1) Accelerated hypertension Status: Acute (2) Acute pyelonephritis Status: Acute (3) Acute renal failure Status: Acute (4) Elevated brain natriuretic peptide (BNP) level Status: Acute (5) Hypokalemia Status: Acute Assessment N/V, acute pyelonephritis, UTI, flank pain HTN Hypokalemia, resolved CKD 4 Plan DC home today on antibiotics Continue home meds PT/OT F/up with PCP 1-2 weeks Appreciate subspecialty Problems: Comment Review of Relevant I have reviewed the following items blade (where applicable) has been applied. Labs Laboratory Tests Test 06/22/17 13:46 06/22/17 15:20 06/23/17 03:10 06/23/17 04:00 Urine Collection Type Unknown Urine Color Yellow Urine Clarity Clear Urine pH 6.0 Urine Specific [place] 1.010 Urine Protein >=300 mg/dL (NEG-TRACE) Urine Glucose (UA) Negative mg/dL (NEG) Urine Ketones (Stick) Negative mg/dL (NEG) Urine Blood Moderate (NEG) Urine Nitrite Negative (NEG) Urine Bilirubin Negative (NEG) Urine Urobilinogen Dipstick 0.2 mg/dL (0.2 mg/dL) Urine Leukocyte Esterase Small (NEG) Urine RBC 3-5 /HPF (0-2) Urine WBC 11-20 /HPF (0-4) Urine Squamous Epithelial Cells Few /LPF Urine Bacteria Many /HPF (0-FEW) White Blood Count 5.7 x10^3/uL (4.0-11.0) 5.7 x10^3/uL (4.0-11.0) Red Blood Count 4.90 x10^6/uL (3.50-5.40) 4.12 x10^6/uL (3.50-5.40) Hemoglobin 13.4 g/dL (12.0-15.5) 11.3 g/dL (12.0-15.5) Hematocrit 41.0 % (36.0-47.0) 34.8 % (36.0-47.0) Mean Corpuscular Volume 84 fL (79-100) 85 fL (79-100) Mean Corpuscular Hemoglobin 27 pg (25-35) 27 pg (25-35) Mean Corpuscular Hemoglobin Concent 33 g/dL (31-37) 32 g/dL (31-37) Red Cell Distribution Width 17.4 % (11.5-14.5) 17.5 % (11.5-14.5) Platelet Count 228 x10^3/uL (140-400) 193 x10^3/uL (140-400) Neutrophils (%) (Auto) 64 % (31-73) 62 % (31-73) Lymphocytes (%) (Auto) 25 % (24-48) 24 % (24-48) Monocytes (%) (Auto) 8 % (0-9) 12 % (0-9) Eosinophils (%) (Auto) 1 % (0-3) 1 % (0-3) Basophils (%) (Auto) 2 % (0-3) 1 % (0-3) Neutrophils # (Auto) 3.7 x10^3uL (1.8-7.7) 3.5 x10^3uL (1.8-7.7) Lymphocytes # (Auto) 1.4 x10^3/uL (1.0-4.8) 1.4 x10^3/uL (1.0-4.8) Monocytes # (Auto) 0.4 x10^3/uL (0.0-1.1) 0.7 x10^3/uL (0.0-1.1) Eosinophils # (Auto) 0.1 x10^3/uL (0.0-0.7) 0.0 x10^3/uL (0.0-0.7) Basophils # (Auto) 0.1 x10^3/uL (0.0-0.2) 0.1 x10^3/uL (0.0-0.2) Prothrombin Time 12.6 SEC (11.7-14.0) Prothromb Time International Ratio 1.0 (0.8-1.1) Activated Partial Thromboplast Time 33 SEC (24-38) Sodium Level 132 mmol/L (136-145) 133 mmol/L (136-145) Potassium Level 3.2 mmol/L (3.5-5.1) 4.0 mmol/L (3.5-5.1) Chloride Level 90 mmol/L (98-107) 98 mmol/L (98-107) Carbon Dioxide Level 24 mmol/L (21-32) 24 mmol/L (21-32) Anion Gap 18 (6-14) 11 (6-14) Blood Urea Nitrogen 17 mg/dL (7-20) 18 mg/dL (7-20) Creatinine 2.1 mg/dL (0.6-1.0) 2.2 mg/dL (0.6-1.0) Estimated GFR (Cockcroft-Gault) 24.0 22.8 BUN/Creatinine Ratio 8 (6-20) Glucose Level 86 mg/dL (70-99) 96 mg/dL (70-99) Calcium Level 9.2 mg/dL (8.5-10.1) 8.3 mg/dL (8.5-10.1) Total Bilirubin 0.2 mg/dL (0.2-1.0) Aspartate Amino Transf (AST/SGOT) 41 U/L (15-37) Alanine Aminotransferase (ALT/SGPT) 25 U/L (14-59) Alkaline Phosphatase 100 U/L (46-116) Troponin I Quantitative < 0.017 ng/mL (0.000-0.055) AO-Cee-S-Type Natriuretic Peptide 1762 pg/mL (0-124) Total Protein 8.8 g/dL (6.4-8.2) Albumin 3.7 g/dL (3.4-5.0) Albumin/Globulin Ratio 0.7 (1.0-1.7) Lipase 212 U/L (73-393) Nasal Screen MRSA (PCR) Negative (Negative) Test 06/24/17 03:50 White Blood Count 5.2 x10^3/uL (4.0-11.0) Red Blood Count 3.67 x10^6/uL (3.50-5.40) Hemoglobin 10.3 g/dL (12.0-15.5) Hematocrit 32.0 % (36.0-47.0) Mean Corpuscular Volume 87 fL (79-100) Mean Corpuscular Hemoglobin 28 pg (25-35) Mean Corpuscular Hemoglobin Concent 32 g/dL (31-37) Red Cell Distribution Width 17.8 % (11.5-14.5) Platelet Count 163 x10^3/uL (140-400) Neutrophils (%) (Auto) 49 % (31-73) Lymphocytes (%) (Auto) 36 % (24-48) Monocytes (%) (Auto) 9 % (0-9) Eosinophils (%) (Auto) 5 % (0-3) Basophils (%) (Auto) 1 % (0-3) Neutrophils # (Auto) 2.5 x10^3uL (1.8-7.7) Lymphocytes # (Auto) 1.9 x10^3/uL (1.0-4.8) Monocytes # (Auto) 0.5 x10^3/uL (0.0-1.1) Eosinophils # (Auto) 0.2 x10^3/uL (0.0-0.7) Basophils # (Auto) 0.0 x10^3/uL (0.0-0.2) Sodium Level 139 mmol/L (136-145) Potassium Level 4.4 mmol/L (3.5-5.1) Chloride Level 105 mmol/L (98-107) Carbon Dioxide Level 24 mmol/L (21-32) Anion Gap 10 (6-14) Blood Urea Nitrogen 22 mg/dL (7-20) Creatinine 2.4 mg/dL (0.6-1.0) Estimated GFR (Cockcroft-Gault) 20.6 Glucose Level 102 mg/dL (70-99) Calcium Level 8.5 mg/dL (8.5-10.1) Laboratory Tests Test 06/24/17 03:50 White Blood Count 5.2 x10^3/uL (4.0-11.0) Red Blood Count 3.67 x10^6/uL (3.50-5.40) Hemoglobin 10.3 g/dL (12.0-15.5) Hematocrit 32.0 % (36.0-47.0) Mean Corpuscular Volume 87 fL (79-100) Mean Corpuscular Hemoglobin 28 pg (25-35) Mean Corpuscular Hemoglobin Concent 32 g/dL (31-37) Red Cell Distribution Width 17.8 % (11.5-14.5) Platelet Count 163 x10^3/uL (140-400) Neutrophils (%) (Auto) 49 % (31-73) Lymphocytes (%) (Auto) 36 % (24-48) Monocytes (%) (Auto) 9 % (0-9) Eosinophils (%) (Auto) 5 % (0-3) Basophils (%) (Auto) 1 % (0-3) Neutrophils # (Auto) 2.5 x10^3uL (1.8-7.7) Lymphocytes # (Auto) 1.9 x10^3/uL (1.0-4.8) Monocytes # (Auto) 0.5 x10^3/uL (0.0-1.1) Eosinophils # (Auto) 0.2 x10^3/uL (0.0-0.7) Basophils # (Auto) 0.0 x10^3/uL (0.0-0.2) Sodium Level 139 mmol/L (136-145) Potassium Level 4.4 mmol/L (3.5-5.1) Chloride Level 105 mmol/L (98-107) Carbon Dioxide Level 24 mmol/L (21-32) Anion Gap 10 (6-14) Blood Urea Nitrogen 22 mg/dL (7-20) Creatinine 2.4 mg/dL (0.6-1.0) Estimated GFR (Cockcroft-Gault) 20.6 Glucose Level 102 mg/dL (70-99) Calcium Level 8.5 mg/dL (8.5-10.1) Microbiology 06/22/17 Urine Culture - Preliminary, Resulted 06/22/17 Urine Culture Result 1 (DARCIE) - Preliminary, Resulted Medications Current Medications Sodium Chloride 1,000 ml @ 1,000 mls/hr 1X ONCE IV Last administered on 06/22 15:21; Start 06/22/17 at 14:30; Stop 06/22/17 at 15:29; Status DC Ondansetron HCl (Zofran) 4 mg 1X ONCE IV Last administered on 06/22/17 15:23 ; Start 06/22/17 at 14:30; Stop 06/22/17 at 14:31; Status DC Fentanyl Citrate (Fentanyl 2ml Vial) 50 mcg PRN Q15MIN PRN IV PAIN GREATER THAN 3/10 Last administered on 06/23/17 06:23; Start 06/22/17 at 16:00; Stop 06/23/17 at 15:59; Status DC Ceftriaxone Sodium 50 ml @ 100 mls/hr 1X ONCE IV Last administered on 16:20; Start 06/22/17 at 16:00; Stop 06/22/17 at 16:29; Status DC Hydralazine HCl (Apresoline Inj) 10 mg 1X ONCE IVP Last administered on 17:29; Start 06/22/17 at 17:45; Stop 06/22/17 at 17:46; Status DC Ondansetron HCl (Zofran) 4 mg PRN Q8HRS PRN IV NAUSEA/VOMITING; Start at 17:15; Stop 06/23/17 at 17:14; Status DC Fentanyl Citrate (Fentanyl 2ml Vial) 50 mcg PRN Q2HR PRN IV PAIN Last administered on 06/23/17 12:49; Start 06/22/17 at 17:15; Stop 06/23/17 at 17 :14; Status DC Sodium Chloride 1,000 ml @ 100 mls/hr Q10H IV Last administered on 06/23/17 13:10; Start 06/22/17 at 17:09; Stop 06/23/17 at 17:08; Status DC Acetaminophen (Tylenol) 650 mg PRN Q4HRS PRN PO FEVER; Start 06/22/17 at 17:15 ; Stop 06/23/17 at 17:14; Status DC Potassium Chloride 100 ml @ 100 mls/hr Q1H IV Last administered on 06/22/17 23:07; Start 06/22/17 at 18:30; Stop 06/22/17 at 22:29; Status DC Ceftriaxone Sodium 1 gm/ Dextrose 50 ml @ 100 mls/hr Q24H IV ; Start 06/22/17 at 20:45; Stop 06/22/17 at 20:46; Status DC Potassium Chloride (Klor-Con) 20 meq DAILYWBKFT PO Last administered on 09:29; Start 06/23/17 at 08:00 Potassium Chloride (Klor-Con) 20 meq 1X ONCE PO Last administered on 21:17; Start 06/22/17 at 20:45; Stop 06/22/17 at 20:46; Status DC Lidocaine (Lidoderm) 1 patch DAILY TD Last administered on 06/24/17 09:39; Start 06/22/17 at 21:30 Alprazolam (Xanax) 0.5 mg TID PO Last administered on 06/24/17 09:39; Start 06/22/17 at 21:00 Loperamide HCl (Imodium) 2 mg PRN Q15MIN PRN PO DIARRHEA; Start 06/22/17 at 20 :45 Metoclopramide HCl (Reglan) 10 mg PRN QID PRN PO NAUSEA; Start 06/22/17 at 20: 45 Oxycodone/ Acetaminophen (Percocet 10/325) 1 tab PRN Q6HRS PRN PO severe pain Last administered on 06/24/17 09:31; Start 06/22/17 at 20:45 Citalopram Hydrobromide (CeleXA) 20 mg DAILY PO Last administered on 09:30; Start 06/23/17 at 09:00 Pantoprazole Sodium (Protonix) 40 mg DAILYAC PO Last administered on 06:21; Start 06/23/17 at 07:30 Ceftriaxone Sodium (Rocephin) 1 gm Q24H IVP Last administered on 06/23/17 16: 38; Start 06/23/17 at 17:00 Hydromorphone HCl (Dilaudid) 1 mg PRN Q2HR PRN IV PAIN Last administered on 06:21; Start 06/23/17 at 12:45 Lactobacillus Rhamnosus (Culturelle) 1 cap BID PO Last administered on 09:30; Start 06/24/17 at 09:00 Active Scripts Active Percocet 10-325 Mg Tablet (Oxycodone/Acetaminophen) 1 Each Tablet 0.5-1 Tab PO Q6HRS PRN Alprazolam 0.5 Mg Tablet 1 Tab PO TID Escitalopram Oxalate 10 Mg Tablet 1 Tab PO DAILY Loperamide (Loperamide Hcl) 2 Mg Capsule 2 Mg PO PRN Q15MIN PRN Reported Reglan (Metoclopramide Hcl) 10 Mg Tablet 1 Tab PO PRN QID Nexium Capsule (Esomeprazole Magnesium) 40 Mg Capsule.dr 1 Cap PO DAILY Vitals/I & O Vital Sign - Last 24 Hours 06/23/17 06/23/17 06/23/17 06/23/17 11:00 12:49 13:19 15:00 Temp 97.7 97.5 97.7 97.5 Pulse 88 80 Resp 19 20 20 19 B/P (MAP) 176/97 (123) 149/86 (107) Pulse Ox 95 99 99 97 O2 Delivery Room Air Room Air Room Air Room Air 06/23/17 06/23/17 06/23/17 06/23/17 16:39 19:00 20:00 20:18 Temp 97.9 97.9 Pulse 92 Resp 20 18 20 B/P (MAP) 138/77 (97) Pulse Ox 97 96 96 O2 Delivery Room Air Room Air Room Air Room Air 06/23/17 06/24/17 06/24/17 06/24/17 23:00 00:08 01:08 01:43 Temp 98.4 98.4 Pulse 92 Resp 20 18 20 B/P (MAP) 159/89 (112) Pulse Ox 96 96 96 96 O2 Delivery Room Air Room Air Room Air Room Air 06/24/17 06/24/17 06/24/17 06/24/17 03:00 06:21 06:51 07:10 Temp 97.5 97.7 97.5 97.7 Pulse 97 92 Resp 18 20 18 18 B/P (MAP) 142/87 (105) 133/88 (103) Pulse Ox 93 93 95 95 O2 Delivery Room Air Room Air Room Air Room Air 06/24/17 06/24/17 07:52 09:31 Resp 20 Pulse Ox 95 O2 Delivery Room Air Room Air Intake and Output 06/23/17 06/23/1717 15:00 23:00 07:00 Intake Total 340 ml 120 ml 0 ml Balance 340 ml 120 ml 0 ml ZA MAHONEY III DO Jun 24, 2017 10:40
--- NOTE | 2017-06-24 13:42 | PDOC ---
PROGRESS NOTES Subjective Subjective Pt left before I could see her. Abx being called in by Dr Campos as per RN report Objective Objective Vital Signs Date Time Temp Pulse Resp B/P (MAP) Pulse Ox O2 Delivery O2 Flow Rate FiO2 06/24/17 10:54 20 95 Room Air 06/24/17 10:30 97.9 96 174/102 (126) 97.9 Intake and Output 06/24/17 07:00 Intake Total 460 ml Balance 460 ml Intake Oral 460 ml Tube Feeding 0 ml # Voids 5 Assessment Assessment Problems Medical Problems: (1) Accelerated hypertension Status: Acute (2) Acute pyelonephritis Status: Acute (3) Acute renal failure Status: Acute (4) Elevated brain natriuretic peptide (BNP) level Status: Acute (5) Hypokalemia Status: Acute Comment Review of Relevant I have reviewed the following items blade (where applicable) has been applied. Labs Laboratory Tests Test 06/22/17 13:46 06/22/17 15:20 06/23/17 03:10 06/23/17 04:00 Urine Collection Type Unknown Urine Color Yellow Urine Clarity Clear Urine pH 6.0 Urine Specific [place] 1.010 Urine Protein >=300 mg/dL (NEG-TRACE) Urine Glucose (UA) Negative mg/dL (NEG) Urine Ketones (Stick) Negative mg/dL (NEG) Urine Blood Moderate (NEG) Urine Nitrite Negative (NEG) Urine Bilirubin Negative (NEG) Urine Urobilinogen Dipstick 0.2 mg/dL (0.2 mg/dL) Urine Leukocyte Esterase Small (NEG) Urine RBC 3-5 /HPF (0-2) Urine WBC 11-20 /HPF (0-4) Urine Squamous Epithelial Cells Few /LPF Urine Bacteria Many /HPF (0-FEW) White Blood Count 5.7 x10^3/uL (4.0-11.0) 5.7 x10^3/uL (4.0-11.0) Red Blood Count 4.90 x10^6/uL (3.50-5.40) 4.12 x10^6/uL (3.50-5.40) Hemoglobin 13.4 g/dL (12.0-15.5) 11.3 g/dL (12.0-15.5) Hematocrit 41.0 % (36.0-47.0) 34.8 % (36.0-47.0) Mean Corpuscular Volume 84 fL (79-100) 85 fL (79-100) Mean Corpuscular Hemoglobin 27 pg (25-35) 27 pg (25-35) Mean Corpuscular Hemoglobin Concent 33 g/dL (31-37) 32 g/dL (31-37) Red Cell Distribution Width 17.4 % (11.5-14.5) 17.5 % (11.5-14.5) Platelet Count 228 x10^3/uL (140-400) 193 x10^3/uL (140-400) Neutrophils (%) (Auto) 64 % (31-73) 62 % (31-73) Lymphocytes (%) (Auto) 25 % (24-48) 24 % (24-48) Monocytes (%) (Auto) 8 % (0-9) 12 % (0-9) Eosinophils (%) (Auto) 1 % (0-3) 1 % (0-3) Basophils (%) (Auto) 2 % (0-3) 1 % (0-3) Neutrophils # (Auto) 3.7 x10^3uL (1.8-7.7) 3.5 x10^3uL (1.8-7.7) Lymphocytes # (Auto) 1.4 x10^3/uL (1.0-4.8) 1.4 x10^3/uL (1.0-4.8) Monocytes # (Auto) 0.4 x10^3/uL (0.0-1.1) 0.7 x10^3/uL (0.0-1.1) Eosinophils # (Auto) 0.1 x10^3/uL (0.0-0.7) 0.0 x10^3/uL (0.0-0.7) Basophils # (Auto) 0.1 x10^3/uL (0.0-0.2) 0.1 x10^3/uL (0.0-0.2) Prothrombin Time 12.6 SEC (11.7-14.0) Prothromb Time International Ratio 1.0 (0.8-1.1) Activated Partial Thromboplast Time 33 SEC (24-38) Sodium Level 132 mmol/L (136-145) 133 mmol/L (136-145) Potassium Level 3.2 mmol/L (3.5-5.1) 4.0 mmol/L (3.5-5.1) Chloride Level 90 mmol/L (98-107) 98 mmol/L (98-107) Carbon Dioxide Level 24 mmol/L (21-32) 24 mmol/L (21-32) Anion Gap 18 (6-14) 11 (6-14) Blood Urea Nitrogen 17 mg/dL (7-20) 18 mg/dL (7-20) Creatinine 2.1 mg/dL (0.6-1.0) 2.2 mg/dL (0.6-1.0) Estimated GFR (Cockcroft-Gault) 24.0 22.8 BUN/Creatinine Ratio 8 (6-20) Glucose Level 86 mg/dL (70-99) 96 mg/dL (70-99) Calcium Level 9.2 mg/dL (8.5-10.1) 8.3 mg/dL (8.5-10.1) Total Bilirubin 0.2 mg/dL (0.2-1.0) Aspartate Amino Transf (AST/SGOT) 41 U/L (15-37) Alanine Aminotransferase (ALT/SGPT) 25 U/L (14-59) Alkaline Phosphatase 100 U/L (46-116) Troponin I Quantitative < 0.017 ng/mL (0.000-0.055) DU-Yjh-[id number]-Type Natriuretic Peptide 1762 pg/mL (0-124) Total Protein 8.8 g/dL (6.4-8.2) Albumin 3.7 g/dL (3.4-5.0) Albumin/Globulin Ratio 0.7 (1.0-1.7) Lipase 212 U/L (73-393) Nasal Screen MRSA (PCR) Negative (Negative) Test 06/24/17 03:50 White Blood Count 5.2 x10^3/uL (4.0-11.0) Red Blood Count 3.67 x10^6/uL (3.50-5.40) Hemoglobin 10.3 g/dL (12.0-15.5) Hematocrit 32.0 % (36.0-47.0) Mean Corpuscular Volume 87 fL (79-100) Mean Corpuscular Hemoglobin 28 pg (25-35) Mean Corpuscular Hemoglobin Concent 32 g/dL (31-37) Red Cell Distribution Width 17.8 % (11.5-14.5) Platelet Count 163 x10^3/uL (140-400) Neutrophils (%) (Auto) 49 % (31-73) Lymphocytes (%) (Auto) 36 % (24-48) Monocytes (%) (Auto) 9 % (0-9) Eosinophils (%) (Auto) 5 % (0-3) Basophils (%) (Auto) 1 % (0-3) Neutrophils # (Auto) 2.5 x10^3uL (1.8-7.7) Lymphocytes # (Auto) 1.9 x10^3/uL (1.0-4.8) Monocytes # (Auto) 0.5 x10^3/uL (0.0-1.1) Eosinophils # (Auto) 0.2 x10^3/uL (0.0-0.7) Basophils # (Auto) 0.0 x10^3/uL (0.0-0.2) Sodium Level 139 mmol/L (136-145) Potassium Level 4.4 mmol/L (3.5-5.1) Chloride Level 105 mmol/L (98-107) Carbon Dioxide Level 24 mmol/L (21-32) Anion Gap 10 (6-14) Blood Urea Nitrogen 22 mg/dL (7-20) Creatinine 2.4 mg/dL (0.6-1.0) Estimated GFR (Cockcroft-Gault) 20.6 Glucose Level 102 mg/dL (70-99) Calcium Level 8.5 mg/dL (8.5-10.1) Laboratory Tests Test 06/24/17 03:50 White Blood Count 5.2 x10^3/uL (4.0-11.0) Red Blood Count 3.67 x10^6/uL (3.50-5.40) Hemoglobin 10.3 g/dL (12.0-15.5) Hematocrit 32.0 % (36.0-47.0) Mean Corpuscular Volume 87 fL (79-100) Mean Corpuscular Hemoglobin 28 pg (25-35) Mean Corpuscular Hemoglobin Concent 32 g/dL (31-37) Red Cell Distribution Width 17.8 % (11.5-14.5) Platelet Count 163 x10^3/uL (140-400) Neutrophils (%) (Auto) 49 % (31-73) Lymphocytes (%) (Auto) 36 % (24-48) Monocytes (%) (Auto) 9 % (0-9) Eosinophils (%) (Auto) 5 % (0-3) Basophils (%) (Auto) 1 % (0-3) Neutrophils # (Auto) 2.5 x10^3uL (1.8-7.7) Lymphocytes # (Auto) 1.9 x10^3/uL (1.0-4.8) Monocytes # (Auto) 0.5 x10^3/uL (0.0-1.1) Eosinophils # (Auto) 0.2 x10^3/uL (0.0-0.7) Basophils # (Auto) 0.0 x10^3/uL (0.0-0.2) Sodium Level 139 mmol/L (136-145) Potassium Level 4.4 mmol/L (3.5-5.1) Chloride Level 105 mmol/L (98-107) Carbon Dioxide Level 24 mmol/L (21-32) Anion Gap 10 (6-14) Blood Urea Nitrogen 22 mg/dL (7-20) Creatinine 2.4 mg/dL (0.6-1.0) Estimated GFR (Cockcroft-Gault) 20.6 Glucose Level 102 mg/dL (70-99) Calcium Level 8.5 mg/dL (8.5-10.1) Microbiology 06/22/17 Urine Culture - Preliminary, Resulted 06/22/17 Urine Culture Result 1 (DARCIE) - Preliminary, Resulted Medications Current Medications Sodium Chloride 1,000 ml @ 1,000 mls/hr 1X ONCE IV Last administered on 06/22 15:21; Start 06/22/17 at 14:30; Stop 06/22/17 at 15:29; Status DC Ondansetron HCl (Zofran) 4 mg 1X ONCE IV Last administered on 06/22/17 15:23 ; Start 06/22/17 at 14:30; Stop 06/22/17 at 14:31; Status DC Fentanyl Citrate (Fentanyl 2ml Vial) 50 mcg PRN Q15MIN PRN IV PAIN GREATER THAN 3/10 Last administered on 12/24/17at 06:23; Start 06/22/17 at 16:00; Stop 06/23/17 at 15:59; Status DC Ceftriaxone Sodium 50 ml @ 100 mls/hr 1X ONCE IV Last administered on 16:20; Start 06/22/17 at 16:00; Stop 06/22/17 at 16:29; Status DC Hydralazine HCl (Apresoline Inj) 10 mg 1X ONCE IVP Last administered on 17:29; Start 06/22/17 at 17:45; Stop 06/22/17 at 17:46; Status DC Ondansetron HCl (Zofran) 4 mg PRN Q8HRS PRN IV NAUSEA/VOMITING; Start at 17:15; Stop 06/23/17 at 17:14; Status DC Fentanyl Citrate (Fentanyl 2ml Vial) 50 mcg PRN Q2HR PRN IV PAIN Last administered on 06/23/17 12:49; Start 06/22/17 at 17:15; Stop 06/23/17 at 17 :14; Status DC Sodium Chloride 1,000 ml @ 100 mls/hr Q10H IV Last administered on 06/23/17 13:10; Start 06/22/17 at 17:09; Stop 06/23/17 at 17:08; Status DC Acetaminophen (Tylenol) 650 mg PRN Q4HRS PRN PO FEVER; Start 06/22/17 at 17:15 ; Stop 06/23/17 at 17:14; Status DC Potassium Chloride 100 ml @ 100 mls/hr Q1H IV Last administered on 06/22/17 23:07; Start 06/22/17 at 18:30; Stop 06/22/17 at 22:29; Status DC Ceftriaxone Sodium 1 gm/ Dextrose 50 ml @ 100 mls/hr Q24H IV ; Start 06/22/17 at 20:45; Stop 06/22/17 at 20:46; Status DC Potassium Chloride (Klor-Con) 20 meq [id number] PO Last administered on 09:29; Start 06/23/17 at 08:00 Potassium Chloride (Klor-Con) 20 meq 1X ONCE PO Last administered on 21:17; Start 06/22/17 at 20:45; Stop 06/22/17 at 20:46; Status DC Lidocaine (Lidoderm) 1 patch DAILY TD Last administered on 06/24/17 09:39; Start 06/22/17 at 21:30 Alprazolam (Xanax) 0.5 mg TID PO Last administered on 06/24/17 09:39; Start 06/22/17 at 21:00 Loperamide HCl (Imodium) 2 mg PRN Q15MIN PRN PO DIARRHEA; Start 06/22/17 at 20 :45 Metoclopramide HCl (Reglan) 10 mg PRN QID PRN PO NAUSEA; Start 06/22/17 at 20: 45 Oxycodone/ Acetaminophen (Percocet 10/325) 1 tab PRN Q6HRS PRN PO severe pain Last administered on 06/24/17 09:31; Start 06/22/17 at 20:45 Citalopram Hydrobromide (CeleXA) 20 mg DAILY PO Last administered on 09:30; Start 06/23/17 at 09:00 Pantoprazole Sodium (Protonix) 40 mg DAILYAC PO Last administered on 06:21; Start 06/23/17 at 07:30 Ceftriaxone Sodium (Rocephin) 1 gm Q24H IVP Last administered on 06/23/17 16: 38; Start 06/23/17 at 17:00 Hydromorphone HCl (Dilaudid) 1 mg PRN Q2HR PRN IV PAIN Last administered on 10:54; Start 06/23/17 at 12:45 Lactobacillus Rhamnosus (Culturelle) 1 cap BID PO Last administered on 09:30; Start 06/24/17 at 09:00 Active Scripts Active Percocet 10-325 Mg Tablet (Oxycodone/Acetaminophen) 1 Each Tablet 0.5-1 Tab PO Q6HRS PRN Alprazolam 0.5 Mg Tablet 1 Tab PO TID Escitalopram Oxalate 10 Mg Tablet 1 Tab PO DAILY Loperamide (Loperamide Hcl) 2 Mg Capsule 2 Mg PO PRN Q15MIN PRN Reported Reglan (Metoclopramide Hcl) 10 Mg Tablet 1 Tab PO PRN QID Nexium Capsule (Esomeprazole Magnesium) 40 Mg Capsule.dr 1 Cap PO DAILY Vitals/I & O Vital Sign - Last 24 Hours 06/23/17 06/23/17 06/23/17 06/23/17 15:00 16:39 19:00 20:00 Temp 97.5 97.9 97.5 97.9 Pulse 80 92 Resp 19 20 18 B/P (MAP) 149/86 (107) 138/77 (97) Pulse Ox 97 97 96 O2 Delivery Room Air Room Air Room Air Room Air 06/23/17 06/23/17 06/24/17 06/24/17 20:18 23:00 00:08 01:08 Temp 98.4 98.4 Pulse 92 Resp 20 20 18 B/P (MAP) 159/89 (112) Pulse Ox 96 96 96 96 O2 Delivery Room Air Room Air Room Air Room Air 06/24/17 06/24/17 06/24/17 06/24/17 01:43 03:00 06:21 06:51 Temp 97.5 97.5 Pulse 97 Resp 20 18 20 18 B/P (MAP) 142/87 (105) Pulse Ox 96 93 93 95 O2 Delivery Room Air Room Air Room Air Room Air 06/24/17 06/24/17 06/24/17 06/24/17 07:10 07:52 09:31 10:30 Temp 97.7 97.9 97.7 97.9 Pulse 92 96 Resp 18 20 18 B/P (MAP) 133/88 (103) 174/102 (126) Pulse Ox 95 95 95 O2 Delivery Room Air Room Air Room Air Room Air 06/24/17 10:54 Resp 20 Pulse Ox 95 O2 Delivery Room Air Intake and Output 06/23/17 06/23/17 06/24/17 15:00 23:00 07:00 Intake Total 340 ml 120 ml 0 ml Balance 340 ml 120 ml 0 ml CHLOE ONEILL MD Jun 24, 2017 13:42
== END 2017-06-24 12:45 | disposition home or self-care (01) | DRG 683 ==
LOC: ER 13:21 → 5 NORTH 15:53
PROVIDERS: ADMIT Internal Medicine; ATTEND Internal Medicine
DX: N17.9 Acute kidney failure, unspecified (principal); F11.20 Opioid dependence, uncomplicated; I12.9 Hypertensive chronic kidney disease with stage 1 through stage 4 chronic kidney disease, or unspecified chronic kidney disease; N10 Acute pyelonephritis; N18.4 Chronic kidney disease, stage 4 (severe); E87.6 Hypokalemia; F32.9 Major depressive disorder, single episode, unspecified; F41.9 Anxiety disorder, unspecified; G89.29 Other chronic pain; F10.21 Alcohol dependence, in remission; M79.7 Fibromyalgia; Z96.652 Presence of left artificial knee joint; Z81.8 Family history of other mental and behavioral disorders; Z82.3 Family history of stroke; Z82.49 Family history of ischemic heart disease and other diseases of the circulatory system; Z87.11 Personal history of peptic ulcer disease; Z87.440 Personal history of urinary (tract) infections; Z86.14 Personal history of Methicillin resistant Staphylococcus aureus infection
CPT/HCPCS: 36415; 70450; 80048; 80053; 81001; 83690; 83880; 84484; 85025; 85610; 85730; 87086; 87641; 93005; 96361; 96365; 96375; J0360; J0690; J0696; J1170; J2405; J3010; J3480; J7030; 97530; 99285-25

== ENCOUNTER 2017-06-25 11:31 | Inpatient (IN) | payer MEDICARE ==
[2017-06-25 12:27] LABS: BILIRUBIN,URINE NEGATIVE (NEG); GLUCOSE,URINE NEGATIVE (NEG); NITRITE,URINE NEGATIVE (NEG); PROTEIN,URINE 100 mg/dL (NEG-TRACE); UROBILINOGEN,URINE 0.2 mg/dL (0.2 mg/dL)
[2017-06-25 12:41] LABS: SQUAMOUS EPITHELIAL CELL,UR MOD /LPF
[2017-06-25 12:42] LABS: BACTERIA,URINE MODERATE /HPF (0-FEW)
[2017-06-25 13:06] LABS: ADD MAN DIFF? NO
[2017-06-25 13:08] LABS: BASO # 0.1 x10^3/uL (0.0-0.2); BASO % 2 % (0-3); EOS % 7 % (0-3); HEMATOCRIT 32.7 % (36.0-47.0); HEMOGLOBIN 10.5 g/dL (12.0-15.5); LYMPH % 32 % (24-48); MEAN CORPUSCULAR HEMOGLOBIN 28 pg (25-35); MEAN CORPUSCULAR HGB CONC 32 g/dL (31-37); MEAN CORPUSCULAR VOLUME 87 fL (79-100); MONO % 8 % (0-9); NEUT % 52 % (31-73); PLATELET COUNT 195 x10^3/uL (140-400); RED BLOOD COUNT 3.78 x10^6/uL (3.50-5.40); RED CELL DISTRIBUTION WIDTH 17.8 % (11.5-14.5); WHITE BLOOD COUNT 6.2 x10^3/uL (4.0-11.0)
[2017-06-25 14:00] LABS: ANION GAP 9 (6-14); BLOOD UREA NITROGEN 23 mg/dL (7-20); CALCIUM 8.5 mg/dL (8.5-10.1); CARBON DIOXIDE 26 mmol/L (21-32); CHLORIDE 105 mmol/L (98-107); CREATININE 2.3 mg/dL (0.6-1.0); GFR 21.6; GLUCOSE 90 mg/dL (70-99); POTASSIUM 3.8 mmol/L (3.5-5.1); SODIUM 140 mmol/L (136-145)
[2017-06-25 14:05] LABS: ALBUMIN 2.8 g/dL (3.4-5.0); ALK PHOS 63 U/L (46-116); ALT (SGPT) 16 U/L (14-59); AST (SGOT) 22 U/L (15-37); DIRECT BILIRUBIN < 0.1 mg/dL (0.0-0.2); MAGNESIUM 1.9 mg/dL (1.8-2.4); TOTAL BILIRUBIN 0.2 mg/dL (0.2-1.0); TOTAL PROTEIN 6.9 g/dL (6.4-8.2)
[2017-06-25 14:11] LABS: CKMB INDEX 5.9 % (0-4); CKMB MASS 4.2 ng/mL (0.0-3.6); CREATINE KINASE 71 U/L (26-192)
[2017-06-25 14:11] LABS: NT-PRO BNP 5175 pg/mL (0-124)
[2017-06-25 14:14] LABS: TROPONINI < 0.017 ng/mL (0.000-0.055)
[2017-06-25] MEDS ORDERED: ONDANSETRON PF 4 MG/2 ML VIAL. IV (15:00)
[2017-06-25] MEDS: oxyCODONE/APAP 10/325 1 TAB TABLET PO ×2 (15:17→18:02)
[2017-06-25] MEDS: LABETALOL 20 MG/4 ML DISP.SYRIN. IVP (16:39)
[2017-06-25] MEDS ORDERED: METOCLOPRAMIDE 10 MG TABLET. PO (17:45)
[2017-06-25] MEDS: LISINOPRIL 10 MG TABLET PO (18:01)
[2017-06-25 21:00] LABS: TROPONINI 0.037 ng/mL (0.000-0.055)
[2017-06-25] MEDS: ALPRAZolam 0.5 MG TABLET PO (21:19)
[2017-06-25] MEDS: HYDROmorphone 2 MG/ML VIAL IV ×2 (22:10→23:00)
[2017-06-26] MEDS: LOPERAMIDE 2 MG CAPSULE PO (01:58)
[2017-06-26 05:54] LABS: ADD MAN DIFF? NO
[2017-06-26 06:19] LABS: BASO % 0 % (0-3); EOS % 5 % (0-3); HEMATOCRIT 31.5 % (36.0-47.0); LYMPH # 2.1 x10^3/uL (1.0-4.8); LYMPH % 31 % (24-48); MEAN CORPUSCULAR HEMOGLOBIN 28 pg (25-35); MEAN CORPUSCULAR HGB CONC 32 g/dL (31-37); MEAN CORPUSCULAR VOLUME 87 fL (79-100); MONO % 8 % (0-9); NEUT % 56 % (31-73); PLATELET COUNT 187 x10^3/uL (140-400); RED BLOOD COUNT 3.62 x10^6/uL (3.50-5.40); RED CELL DISTRIBUTION WIDTH 17.7 % (11.5-14.5); WHITE BLOOD COUNT 6.7 x10^3/uL (4.0-11.0)
[2017-06-26 06:23] LABS: ANION GAP 9 (6-14); BLOOD UREA NITROGEN 25 mg/dL (7-20); CALCIUM 8.3 mg/dL (8.5-10.1); CARBON DIOXIDE 27 mmol/L (21-32); CHLORIDE 100 mmol/L (98-107); CREATININE 2.6 mg/dL (0.6-1.0); GFR 18.8; GLUCOSE 102 mg/dL (70-99); SODIUM 136 mmol/L (136-145)
[2017-06-26 06:41] LABS: TROPONINI 0.028 ng/mL (0.000-0.055)
[2017-06-26] MEDS ORDERED: ONDANSETRON PF 4 MG/2 ML VIAL. IV (09:15)
[2017-06-26] MEDS: AMOXICILLIN/K CLAV 500/125MG TABLET. PO ×2 (09:32→22:29)
[2017-06-26] MEDS: PANTOPRAZOLE 40 MG TABLET.DR. PO (09:33)
[2017-06-26] MEDS: ALPRAZolam 0.5 MG TABLET PO ×3 (09:33→22:29)
[2017-06-26] MEDS: CITALOPRAM 20 MG TABLET. PO (09:33)
[2017-06-26] MEDS ORDERED: diphenhydrAMINE 50 MG/ML VIAL IVP (12:00)
[2017-06-26] MEDS ORDERED: ZOLPIDEM 5 MG TABLET. PO (12:00)
[2017-06-26] MEDS: MIDAZOLAM HCL/PF 5 MG/5 ML VIAL. IV (12:15)
[2017-06-26] MEDS: HYDROmorphone 2 MG/ML VIAL IVP (16:10)
[2017-06-26] MEDS: BUPIVACAINE MPF 0.25% 10 ML VIAL. IJ (17:45)
[2017-06-26] MEDS: methylPREDNISolone ACETATE 40 MG/ML VIAL. IM (17:45)
[2017-06-26] MEDS: CYCLOBENZAPRINE 10 MG TABLET. PO (18:19)
[2017-06-26] MEDS: LACTOBACILLUS RHAMNOSUS GG 1 CAPSULE. PO (22:29)
[2017-06-27] MEDS: PANTOPRAZOLE 40 MG TABLET.DR. PO (06:07)
[2017-06-27] MEDS: CYCLOBENZAPRINE 10 MG TABLET. PO ×5 (06:07→23:01)
[2017-06-27] MEDS: oxyCODONE IR 5 MG TABLET PO ×3 (06:17→23:01)
[2017-06-27] MEDS ORDERED: LIDOCAINE 1% PF 2 ML VIAL. ID (07:00)
[2017-06-27] MEDS ORDERED: fentaNYL PF VIAL 100 MCG/2 ML VIAL IV ×2 (07:00)
[2017-06-27] MEDS ORDERED: IV RINGERS,LACTATED 1000ML 1,000 ML IV (07:00)
[2017-06-27] MEDS ORDERED: fentaNYL PF VIAL 100 MCG/2 ML VIAL (07:20)
[2017-06-27] MEDS ORDERED: PROPOFOL 20 ML IV (07:20)
[2017-06-27] MEDS ORDERED: MIDAZOLAM HCL/PF 2 MG/2 ML VIAL. (07:20)
[2017-06-27] MEDS: AMOXICILLIN/K CLAV 500/125MG TABLET. PO ×2 (09:35→20:35)
[2017-06-27] MEDS: CITALOPRAM 20 MG TABLET. PO (09:35)
[2017-06-27] MEDS: LACTOBACILLUS RHAMNOSUS GG 1 CAPSULE. PO ×2 (09:35→20:35)
[2017-06-27] MEDS: ALPRAZolam 0.5 MG TABLET PO ×3 (09:35→20:35)
[2017-06-27 21:37] LABS: C DIFF BY PCR Positive (Negative)
[2017-06-27] MEDS: metroNIDAZOLE 500 MG TABLET PO (23:01)
[2017-06-27] MEDS: LABETALOL 20 MG/4 ML DISP.SYRIN. IVP (23:08)
[2017-06-28] MEDS: CYCLOBENZAPRINE 10 MG TABLET. PO ×4 (05:18→23:09)
[2017-06-28] MEDS: oxyCODONE IR 5 MG TABLET PO ×5 (05:18→23:10)
[2017-06-28] MEDS: metroNIDAZOLE 500 MG TABLET PO ×3 (05:18→20:59)
[2017-06-28 05:39] LABS: ADD MAN DIFF? NO
[2017-06-28 06:06] LABS: BASO % 0 % (0-3); EOS % 5 % (0-3); HEMATOCRIT 30.8 % (36.0-47.0); HEMOGLOBIN 9.7 g/dL (12.0-15.5); LYMPH # 1.8 x10^3/uL (1.0-4.8); LYMPH % 36 % (24-48); MEAN CORPUSCULAR HEMOGLOBIN 28 pg (25-35); MEAN CORPUSCULAR HGB CONC 32 g/dL (31-37); MEAN CORPUSCULAR VOLUME 88 fL (79-100); MONO % 14 % (0-9); NEUT % 45 % (31-73); PLATELET COUNT 202 x10^3/uL (140-400); RED BLOOD COUNT 3.51 x10^6/uL (3.50-5.40); RED CELL DISTRIBUTION WIDTH 17.4 % (11.5-14.5)
[2017-06-28 06:38] LABS: ALBUMIN 2.4 g/dL (3.4-5.0); ALBUMIN/GLOBULIN RATIO 0.6 (1.0-1.7); ALK PHOS 61 U/L (46-116); ALT (SGPT) 13 U/L (14-59); ANION GAP 8 (6-14); AST (SGOT) 19 U/L (15-37); BLOOD UREA NITROGEN 22 mg/dL (7-20); BUN/CREATININE RATIO 10 (6-20); CARBON DIOXIDE 26 mmol/L (21-32); CHLORIDE 107 mmol/L (98-107); CREATININE 2.3 mg/dL (0.6-1.0); GFR 21.6; GLUCOSE 92 mg/dL (70-99); POTASSIUM 4.4 mmol/L (3.5-5.1); SODIUM 141 mmol/L (136-145); TOTAL BILIRUBIN 0.2 mg/dL (0.2-1.0); TOTAL PROTEIN 6.3 g/dL (6.4-8.2)
[2017-06-28] MEDS: CITALOPRAM 20 MG TABLET. PO (08:15)
[2017-06-28] MEDS: PANTOPRAZOLE 40 MG TABLET.DR. PO (08:15)
[2017-06-28] MEDS: ALPRAZolam 0.5 MG TABLET PO ×3 (08:15→20:59)
[2017-06-28] MEDS: AMOXICILLIN/K CLAV 500/125MG TABLET. PO ×2 (08:15→20:59)
[2017-06-28] MEDS ORDERED: methylPREDNISolone ACETATE 40 MG/ML VIAL. (09:00)
[2017-06-28] MEDS ORDERED: BUPIVACAINE MPF 0.25% 10 ML VIAL. (09:00)
[2017-06-28] MEDS: LACTOBACILLUS RHAMNOSUS GG 1 CAPSULE. PO ×2 (09:29→20:59)
[2017-06-28] MEDS: HYDROmorphone 2 MG/ML VIAL IVP (21:07)
[2017-06-28] MEDS: LINEZOLID 600 MG TABLET PO (23:09)
[2017-06-29] MEDS: oxyCODONE IR 5 MG TABLET PO ×3 (03:19→13:45)
[2017-06-29 05:27] LABS: ADD MAN DIFF? NO
[2017-06-29 06:02] LABS: BASO % 0 % (0-3); EOS % 2 % (0-3); HEMATOCRIT 30.3 % (36.0-47.0); HEMOGLOBIN 9.7 g/dL (12.0-15.5); LYMPH # 1.1 x10^3/uL (1.0-4.8); LYMPH % 18 % (24-48); MEAN CORPUSCULAR HEMOGLOBIN 28 pg (25-35); MEAN CORPUSCULAR HGB CONC 32 g/dL (31-37); MEAN CORPUSCULAR VOLUME 86 fL (79-100); MONO % 11 % (0-9); NEUT % 69 % (31-73); PLATELET COUNT 244 x10^3/uL (140-400); RED BLOOD COUNT 3.51 x10^6/uL (3.50-5.40); RED CELL DISTRIBUTION WIDTH 17.7 % (11.5-14.5)
[2017-06-29] MEDS: metroNIDAZOLE 500 MG TABLET PO ×2 (06:05→13:45)
[2017-06-29] MEDS: CYCLOBENZAPRINE 10 MG TABLET. PO ×2 (06:05→11:34)
[2017-06-29] MEDS: HYDROmorphone 2 MG/ML VIAL IVP (06:09)
[2017-06-29 06:44] LABS: ALBUMIN 2.8 g/dL (3.4-5.0); ALBUMIN/GLOBULIN RATIO 0.6 (1.0-1.7); ALK PHOS 68 U/L (46-116); ALT (SGPT) 6 U/L (14-59); ANION GAP 10 (6-14); AST (SGOT) 17 U/L (15-37); BLOOD UREA NITROGEN 24 mg/dL (7-20); BUN/CREATININE RATIO 12 (6-20); CALCIUM 8.7 mg/dL (8.5-10.1); CARBON DIOXIDE 25 mmol/L (21-32); CHLORIDE 102 mmol/L (98-107); GFR 25.4; GLUCOSE 104 mg/dL (70-99); POTASSIUM 4.5 mmol/L (3.5-5.1); SODIUM 137 mmol/L (136-145); TOTAL BILIRUBIN 0.2 mg/dL (0.2-1.0); TOTAL PROTEIN 7.4 g/dL (6.4-8.2)
[2017-06-29] MEDS: PANTOPRAZOLE 40 MG TABLET.DR. PO (08:16)
[2017-06-29] MEDS: LACTOBACILLUS RHAMNOSUS GG 1 CAPSULE. PO (08:17)
[2017-06-29] MEDS: ALPRAZolam 0.5 MG TABLET PO ×2 (08:17→13:45)
[2017-06-29] MEDS: CITALOPRAM 20 MG TABLET. PO (08:17)
[2017-06-29] MEDS: LINEZOLID 600 MG TABLET PO (08:17)
[2017-06-29] MEDS: amLODIPine BESYLATE 5 MG TABLET PO (11:34)
== END 2017-06-29 14:11 | disposition home or self-care (01) | DRG 682 ==
LOC: ER 11:31 → 5 SOUTH 12:05
DX: N17.9 Acute kidney failure, unspecified (principal); E43 Unspecified severe protein-calorie malnutrition; A04.71 Enterocolitis due to Clostridium difficile, recurrent; I12.0 Hypertensive chronic kidney disease with stage 5 chronic kidney disease or end stage renal disease; F11.20 Opioid dependence, uncomplicated; G57.32 Lesion of lateral popliteal nerve, left lower limb; N31.9 Neuromuscular dysfunction of bladder, unspecified; N12 Tubulo-interstitial nephritis, not specified as acute or chronic; N18.5 Chronic kidney disease, stage 5; B95.2 Enterococcus as the cause of diseases classified elsewhere; B96.20 Unspecified Escherichia coli [E. coli] as the cause of diseases classified elsewhere; F32.9 Major depressive disorder, single episode, unspecified; F41.9 Anxiety disorder, unspecified; M54.5 Low back pain; F10.20 Alcohol dependence, uncomplicated; F41.0 Panic disorder [episodic paroxysmal anxiety]; G89.29 Other chronic pain; Z96.652 Presence of left artificial knee joint; M17.11 Unilateral primary osteoarthritis, right knee; M47.816 Spondylosis without myelopathy or radiculopathy, lumbar region; R62.7 Adult failure to thrive; Z16.21 Resistance to vancomycin; Z88.8 Allergy status to other drugs, medicaments and biological substances; Z68.27 Body mass index [BMI] 27.0-27.9, adult
CPT/HCPCS: 36415; 72148; 80048; 80053; 80076; 81001; 82553; 83690; 83735; 83880; 84484; 85025; 87086; 87186; 87324; 93005; 97161-GP; 97164-GP; 97165-GO; 99285; J1030; J1170; J2250; J2704; J3010; J3490

== ENCOUNTER 2017-07-23 15:05 | Inpatient (IN) | payer MEDICARE ==
[2017-07-23 16:11] LABS: BARBITURATES NEG (NEG); BENZODIAZEPINES NEG (NEG); CANNABINOIDS NEG (NEG); COCAINE NEG (NEG); METHADONE NEG (NEG); OPIATES NEG (NEG); PHENCYCLIDINE NEG (NEG)
[2017-07-23 16:13] LABS: POC GLUCOSE 110 mg/dL (70-99)
[2017-07-23 16:15] LABS: AMPHETAMINE/METHAMPHETAMINE NEG (NEG); ETHANOL, URINE POS (NEG)
[2017-07-23 16:20] LABS: ADD MAN DIFF? NO
[2017-07-23 16:26] LABS: BASO # 0.2 x10^3/uL (0.0-0.2); BASO % 2 % (0-3); EOS # 0.1 x10^3/uL (0.0-0.7); EOS % 1 % (0-3); HEMATOCRIT 29.8 % (36.0-47.0); HEMOGLOBIN 9.6 g/dL (12.0-15.5); LYMPH # 1.5 x10^3/uL (1.0-4.8); LYMPH % 11 % (24-48); MEAN CORPUSCULAR HEMOGLOBIN 28 pg (25-35); MEAN CORPUSCULAR HGB CONC 32 g/dL (31-37); MEAN CORPUSCULAR VOLUME 86 fL (79-100); MONO # 1.4 x10^3/uL (0.0-1.1); MONO % 11 % (0-9); NEUT # 10.4 x10^3uL (1.8-7.7); NEUT % 76 % (31-73); PLATELET COUNT 382 x10^3/uL (140-400); RED BLOOD COUNT 3.48 x10^6/uL (3.50-5.40); RED CELL DISTRIBUTION WIDTH 18.4 % (11.5-14.5); WHITE BLOOD COUNT 13.7 x10^3/uL (4.0-11.0)
[2017-07-23 16:35] LABS: BILIRUBIN,URINE NEGATIVE (NEG); CLARITY,URINE CLEAR; COLOR,URINE YELLOW; GLUCOSE,URINE NEGATIVE (NEG); NITRITE,URINE NEGATIVE (NEG); PROTEIN,URINE 100 mg/dL (NEG-TRACE); UROBILINOGEN,URINE 0.2 mg/dL (0.2 mg/dL)
[2017-07-23 16:40] LABS: INR 1.1 (0.8-1.1); PARTIAL THROMBOPLASTIN TIME 28 SEC (24-38); PROTHROMBIN TIME PATIENT 13.1 SEC (11.7-14.0)
[2017-07-23 16:41] LABS: AMMONIA < 10 mcmol/L (11-34)
[2017-07-23] MEDS: IV NORMAL SALINE 500ML BAG 500 ML IV (16:47)
[2017-07-23 16:51] LABS: ANION GAP 15 (6-14); BLOOD UREA NITROGEN 24 mg/dL (7-20); BUN/CREATININE RATIO 9 (6-20); CALCIUM 9.5 mg/dL (8.5-10.1); CARBON DIOXIDE 25 mmol/L (21-32); CHLORIDE 100 mmol/L (98-107); CREATININE 2.6 mg/dL (0.6-1.0); GFR 18.8; GLUCOSE 117 mg/dL (70-99); POTASSIUM 3.9 mmol/L (3.5-5.1); SODIUM 140 mmol/L (136-145)
[2017-07-23 16:55] LABS: ACETAMIN < 2 mcg/ml (10-30); ETHANOL < 10 mg/dL (0-10); SALIC < 2.8 mg/dL (2.8-20.0)
[2017-07-23 16:56] LABS: TROPONINI < 0.017 ng/mL (0.000-0.055)
[2017-07-23 16:59] LABS: NT-PRO BNP 1600 pg/mL (0-124)
[2017-07-23 17:03] LABS: ALBUMIN 3.7 g/dL (3.4-5.0); ALBUMIN/GLOBULIN RATIO 0.8 (1.0-1.7); ALK PHOS 88 U/L (46-116); ALT (SGPT) 22 U/L (14-59); AST (SGOT) 32 U/L (15-37); LIPASE 306 U/L (73-393); MAGNESIUM 2.1 mg/dL (1.8-2.4); TOTAL PROTEIN 8.6 g/dL (6.4-8.2)
[2017-07-23 17:15] LABS: BACTERIA,URINE 0 /HPF (0-FEW); RBC,URINE 0 /HPF (0-2); SQUAMOUS EPITHELIAL CELL,UR FEW /LPF
[2017-07-23 17:16] LABS: YEAST,URINE PRESENT /HPF
[2017-07-23] MEDS ORDERED: ACETAMINOPHEN 325 MG TABLET. PO (17:45)
[2017-07-23] MEDS ORDERED: ONDANSETRON PF 4 MG/2 ML VIAL. IV (17:45)
[2017-07-23] MEDS: IV NORMAL SALINE 1000ML BAG 1,000 ML IV ×2 (18:12→21:31)
[2017-07-23 19:00] LABS: LACTIC ACID 0.9 mmol/L (0.4-2.0)
[2017-07-23 22:17] LABS: LACTIC ACID 0.8 mmol/L (0.4-2.0)
[2017-07-23] MEDS ORDERED: METOCLOPRAMIDE 5 MG TABLET. PO (23:15)
[2017-07-23] MEDS ORDERED: oxyCODONE/APAP 10/325 1 TAB TABLET PO (23:15)
[2017-07-23] MEDS ORDERED: LOPERAMIDE 2 MG CAPSULE PO (23:15)
[2017-07-24 05:44] LABS: ADD MAN DIFF? NO
[2017-07-24 06:01] LABS: BASO # 0.1 x10^3/uL (0.0-0.2); BASO % 1 % (0-3); EOS # 0.3 x10^3/uL (0.0-0.7); EOS % 4 % (0-3); HEMATOCRIT 26.6 % (36.0-47.0); HEMOGLOBIN 8.6 g/dL (12.0-15.5); LYMPH # 1.2 x10^3/uL (1.0-4.8); LYMPH % 14 % (24-48); MEAN CORPUSCULAR HEMOGLOBIN 28 pg (25-35); MEAN CORPUSCULAR HGB CONC 32 g/dL (31-37); MEAN CORPUSCULAR VOLUME 87 fL (79-100); MONO % 11 % (0-9); NEUT % 70 % (31-73); PLATELET COUNT 296 x10^3/uL (140-400); RED BLOOD COUNT 3.05 x10^6/uL (3.50-5.40); RED CELL DISTRIBUTION WIDTH 19.3 % (11.5-14.5); WHITE BLOOD COUNT 8.6 x10^3/uL (4.0-11.0)
[2017-07-24 06:32] LABS: ALBUMIN 2.7 g/dL (3.4-5.0); ALBUMIN/GLOBULIN RATIO 0.7 (1.0-1.7); ALK PHOS 70 U/L (46-116); ALT (SGPT) 14 U/L (14-59); ANION GAP 12 (6-14); AST (SGOT) 18 U/L (15-37); BLOOD UREA NITROGEN 20 mg/dL (7-20); BUN/CREATININE RATIO 9 (6-20); CARBON DIOXIDE 23 mmol/L (21-32); CHLORIDE 106 mmol/L (98-107); CREATININE 2.3 mg/dL (0.6-1.0); GFR 21.6; GLUCOSE 90 mg/dL (70-99); POTASSIUM 3.1 mmol/L (3.5-5.1); SODIUM 141 mmol/L (136-145); TOTAL BILIRUBIN 0.6 mg/dL (0.2-1.0); TOTAL PROTEIN 6.7 g/dL (6.4-8.2)
[2017-07-24] MEDS: PANTOPRAZOLE 40 MG TABLET.DR. PO (07:30)
[2017-07-24] MEDS: IV NORMAL SALINE 1000ML BAG 1,000 ML IV ×2 (07:44→13:30)
[2017-07-24] MEDS: THIAMINE IM 200 MG/2 ML VIAL. IM (09:00)
[2017-07-24] MEDS: ALPRAZolam 0.5 MG TABLET PO ×3 (09:00→20:41)
[2017-07-24] MEDS: MULTIVITAMIN with MINERAL TABLET. PO (09:00)
[2017-07-24] MEDS: amLODIPine BESYLATE 5 MG TABLET PO (09:00)
[2017-07-24] MEDS: FUROSEMIDE 40 MG TABLET. PO (09:00)
[2017-07-24] MEDS: CITALOPRAM 20 MG TABLET. PO (09:00)
[2017-07-24] MEDS: FOLIC ACID 1 MG TABLET. PO (09:00)
[2017-07-24] MEDS: ASPIRIN CHEWABLE 81 MG TABLET. PO (09:00)
[2017-07-24] MEDS: POTASSIUM CHLORIDE 20 MEQ TABLET.ER. PO (12:30)
[2017-07-24] MEDS: MULTIVIT INFUSN,ADULT 4,VIT K 10 ML, THIAMINE 100 MG, FOLIC ACID 1 MG in IV NORMAL SALI... IV (15:09)
[2017-07-24] MEDS: POTASSIUM CL 40MEQ IN 0.9%NACL 1,000 ML IV (23:22)
[2017-07-25 05:39] LABS: ADD MAN DIFF? NO
[2017-07-25 05:45] LABS: BASO # 0.1 x10^3/uL (0.0-0.2); BASO % 1 % (0-3); EOS # 0.1 x10^3/uL (0.0-0.7); EOS % 1 % (0-3); HEMATOCRIT 25.2 % (36.0-47.0); LYMPH # 1.6 x10^3/uL (1.0-4.8); LYMPH % 14 % (24-48); MEAN CORPUSCULAR HEMOGLOBIN 28 pg (25-35); MEAN CORPUSCULAR HGB CONC 32 g/dL (31-37); MEAN CORPUSCULAR VOLUME 89 fL (79-100); MONO # 1.3 x10^3/uL (0.0-1.1); MONO % 12 % (0-9); NEUT % 72 % (31-73); PLATELET COUNT 284 x10^3/uL (140-400); RED BLOOD COUNT 2.84 x10^6/uL (3.50-5.40); RED CELL DISTRIBUTION WIDTH 19.7 % (11.5-14.5); WHITE BLOOD COUNT 11.2 x10^3/uL (4.0-11.0)
[2017-07-25 06:47] LABS: ALBUMIN 2.6 g/dL (3.4-5.0); ALBUMIN/GLOBULIN RATIO 0.6 (1.0-1.7); ALK PHOS 60 U/L (46-116); ALT (SGPT) 12 U/L (14-59); ANION GAP 15 (6-14); AST (SGOT) 13 U/L (15-37); BLOOD UREA NITROGEN 19 mg/dL (7-20); BUN/CREATININE RATIO 10 (6-20); CALCIUM 8.6 mg/dL (8.5-10.1); CARBON DIOXIDE 22 mmol/L (21-32); CHLORIDE 114 mmol/L (98-107); GFR 25.4; GLUCOSE 103 mg/dL (70-99); POTASSIUM 3.8 mmol/L (3.5-5.1); SODIUM 151 mmol/L (136-145); TOTAL BILIRUBIN 0.6 mg/dL (0.2-1.0); TOTAL PROTEIN 6.7 g/dL (6.4-8.2)
[2017-07-25] MEDS: PANTOPRAZOLE 40 MG TABLET.DR. PO (07:30)
[2017-07-25] MEDS: ASPIRIN CHEWABLE 81 MG TABLET. PO (07:33)
[2017-07-25] MEDS: CITALOPRAM 20 MG TABLET. PO (07:33)
[2017-07-25] MEDS: amLODIPine BESYLATE 5 MG TABLET PO (07:34)
[2017-07-25] MEDS: MULTIVITAMIN with MINERAL TABLET. PO (07:34)
[2017-07-25] MEDS: ALPRAZolam 0.5 MG TABLET PO ×3 (07:34→20:28)
[2017-07-25] MEDS: FUROSEMIDE 40 MG TABLET. PO (07:34)
[2017-07-25] MEDS: FOLIC ACID 1 MG TABLET. PO (07:34)
[2017-07-25] MEDS: THIAMINE 100 MG TABLET. PO (07:34)
[2017-07-25 10:34] LABS: BASE EXCESS ABG -6 mmol/L (-3-3); HCO3 ABG 18 mmol/L (21-28); PCO2 ABG 30 mmHg (35-46); PO2 ABG 83 mmHg (65-108); SAT O2 ABG 96 % (92-99)
[2017-07-25] MEDS: NYSTATIN TOPICAL POWDER 15GM BOTTLE. TP ×2 (10:50→20:28)
[2017-07-25] MEDS: SODIUM BICARB ADULT 8.4% 50 MEQ/50 ML DISP.SYRIN. IV (10:51)
[2017-07-25] MEDS: IV NORMAL SALINE 1000ML BAG 1,000 ML IV ×2 (11:08→17:05)
[2017-07-26 05:25] LABS: ADD MAN DIFF? NO
[2017-07-26 05:42] LABS: BASO # 0.1 x10^3/uL (0.0-0.2); BASO % 1 % (0-3); EOS # 0.2 x10^3/uL (0.0-0.7); EOS % 1 % (0-3); HEMATOCRIT 26.9 % (36.0-47.0); HEMOGLOBIN 8.3 g/dL (12.0-15.5); LYMPH # 1.3 x10^3/uL (1.0-4.8); LYMPH % 11 % (24-48); MEAN CORPUSCULAR HEMOGLOBIN 28 pg (25-35); MEAN CORPUSCULAR HGB CONC 31 g/dL (31-37); MEAN CORPUSCULAR VOLUME 90 fL (79-100); MONO # 1.2 x10^3/uL (0.0-1.1); MONO % 10 % (0-9); NEUT # 8.9 x10^3uL (1.8-7.7); NEUT % 77 % (31-73); PLATELET COUNT 296 x10^3/uL (140-400); RED BLOOD COUNT 2.98 x10^6/uL (3.50-5.40); RED CELL DISTRIBUTION WIDTH 19.8 % (11.5-14.5); WHITE BLOOD COUNT 11.6 x10^3/uL (4.0-11.0)
[2017-07-26 06:05] LABS: ALBUMIN 2.7 g/dL (3.4-5.0); ALBUMIN/GLOBULIN RATIO 0.6 (1.0-1.7); ALK PHOS 66 U/L (46-116); ALT (SGPT) 11 U/L (14-59); ANION GAP 15 (6-14); AST (SGOT) 13 U/L (15-37); BLOOD UREA NITROGEN 19 mg/dL (7-20); BUN/CREATININE RATIO 10 (6-20); CARBON DIOXIDE 22 mmol/L (21-32); CHLORIDE 118 mmol/L (98-107); CREATININE 1.9 mg/dL (0.6-1.0); GLUCOSE 105 mg/dL (70-99); POTASSIUM 3.7 mmol/L (3.5-5.1); SODIUM 155 mmol/L (136-145); TOTAL BILIRUBIN 0.7 mg/dL (0.2-1.0); TOTAL PROTEIN 7.4 g/dL (6.4-8.2)
[2017-07-26] MEDS: PANTOPRAZOLE 40 MG TABLET.DR. PO (07:30)
[2017-07-26] MEDS: NYSTATIN TOPICAL POWDER 15GM BOTTLE. TP ×2 (08:44→19:58)
[2017-07-26] MEDS: CITALOPRAM 20 MG TABLET. PO (08:52)
[2017-07-26] MEDS: ASPIRIN CHEWABLE 81 MG TABLET. PO (08:53)
[2017-07-26] MEDS: FOLIC ACID 1 MG TABLET. PO (08:53)
[2017-07-26] MEDS: FUROSEMIDE 40 MG TABLET. PO (08:54)
[2017-07-26] MEDS: amLODIPine BESYLATE 5 MG TABLET PO (08:54)
[2017-07-26] MEDS: THIAMINE 100 MG TABLET. PO (08:54)
[2017-07-26] MEDS: MULTIVITAMIN with MINERAL TABLET. PO (08:54)
[2017-07-26] MEDS: ALPRAZolam 0.5 MG TABLET PO ×3 (08:54→19:59)
[2017-07-26] MEDS: METOPROLOL TARTRATE 5 MG/5 ML VIAL. IVP ×2 (12:00→19:59)
[2017-07-26] MEDS: SODIUM BICARB ADULT 8.4% 50 MEQ/50 ML DISP.SYRIN. IV (12:56)
[2017-07-26] MEDS: IV 1/2 NORMAL SALINE 1,000 ML IV (13:12)
[2017-07-26] MEDS ORDERED: DEXTROSE 50% 25 GM / 50ML DISP.SYRIN. IV (20:45)
[2017-07-26 22:06] LABS: FIO2 ABG 28; HCO3 ABG 26 mmol/L (21-28); PCO2 ABG 41 mmHg (35-46); PH ABG 7.41 (7.35-7.45); PO2 ABG 57 mmHg (65-108); SAT O2 ABG 88 % (92-99)
[2017-07-26] MEDS: IV DEXTROSE 5 %-0.2 % NACL 1,000 ML IV (23:30)
[2017-07-27] MEDS: METOPROLOL TARTRATE 5 MG/5 ML VIAL. IVP ×4 (00:19→17:37)
[2017-07-27 04:22] LABS: ADD MAN DIFF? NO
[2017-07-27 04:35] LABS: BASO # 0.1 x10^3/uL (0.0-0.2); BASO % 1 % (0-3); EOS # 0.2 x10^3/uL (0.0-0.7); EOS % 2 % (0-3); HEMATOCRIT 28.9 % (36.0-47.0); HEMOGLOBIN 9.1 g/dL (12.0-15.5); LYMPH # 1.8 x10^3/uL (1.0-4.8); LYMPH % 14 % (24-48); MEAN CORPUSCULAR HEMOGLOBIN 28 pg (25-35); MEAN CORPUSCULAR HGB CONC 32 g/dL (31-37); MEAN CORPUSCULAR VOLUME 90 fL (79-100); MONO # 1.2 x10^3/uL (0.0-1.1); MONO % 9 % (0-9); NEUT # 9.9 x10^3uL (1.8-7.7); NEUT % 75 % (31-73); PLATELET COUNT 299 x10^3/uL (140-400); RED BLOOD COUNT 3.22 x10^6/uL (3.50-5.40); WHITE BLOOD COUNT 13.2 x10^3/uL (4.0-11.0)
[2017-07-27 04:55] LABS: ALBUMIN 2.7 g/dL (3.4-5.0); ALBUMIN/GLOBULIN RATIO 0.5 (1.0-1.7); ALK PHOS 65 U/L (46-116); ALT (SGPT) 13 U/L (14-59); ANION GAP 14 (6-14); AST (SGOT) 20 U/L (15-37); BLOOD UREA NITROGEN 20 mg/dL (7-20); BUN/CREATININE RATIO 11 (6-20); CALCIUM 9.7 mg/dL (8.5-10.1); CARBON DIOXIDE 25 mmol/L (21-32); CHLORIDE 116 mmol/L (98-107); CREATININE 1.9 mg/dL (0.6-1.0); GLUCOSE 123 mg/dL (70-99); POTASSIUM 3.7 mmol/L (3.5-5.1); SODIUM 155 mmol/L (136-145); TOTAL BILIRUBIN 0.7 mg/dL (0.2-1.0); TOTAL PROTEIN 7.9 g/dL (6.4-8.2)
[2017-07-27] MEDS: INSULIN ASPART 300 UNITS/3 ML INSULN.PEN SQ ×3 (08:00→17:00)
[2017-07-27] MEDS: FUROSEMIDE 40 MG/4 ML VIAL. IVP (08:29)
[2017-07-27] MEDS: PANTOPRAZOLE IV PUSH 40 MG VIAL. IVP (08:40)
[2017-07-27] MEDS: ASPIRIN CHEWABLE 81 MG TABLET. PO (09:00)
[2017-07-27] MEDS: MULTIVITAMIN with MINERAL TABLET. PO (09:00)
[2017-07-27] MEDS: ALPRAZolam 0.5 MG TABLET PO ×3 (09:00→20:28)
[2017-07-27] MEDS: amLODIPine BESYLATE 5 MG TABLET PO (09:00)
[2017-07-27] MEDS: MULTIVIT INFUSN,ADULT 4,VIT K 10 ML, THIAMINE 100 MG, FOLIC ACID 1 MG in IV DEXTROSE 5 ... IV (10:14)
[2017-07-27] MEDS: NYSTATIN TOPICAL POWDER 15GM BOTTLE. TP ×2 (10:26→20:28)
[2017-07-27 11:30] LABS: POC GLUCOSE 128 mg/dL (70-99)
[2017-07-27] MEDS: IV DEXTROSE 5 %-0.2 % NACL 1,000 ML IV ×2 (14:31→20:27)
[2017-07-27 17:36] LABS: POC GLUCOSE 97 mg/dL (70-99)
[2017-07-27] MEDS: oxyCODONE/APAP 10/325 1 TAB TABLET PO (17:38)
[2017-07-27] MEDS: ACETAMINOPHEN 325 MG TABLET. PO (20:28)
[2017-07-28] MEDS: ACETAMINOPHEN 650 MG SUPP.RECT. PR (00:15)
[2017-07-28 00:54] LABS: POC GLUCOSE 117 mg/dL (70-99)
[2017-07-28] MEDS: METOPROLOL TARTRATE 5 MG/5 ML VIAL. IVP ×5 (00:57→23:32)
[2017-07-28] MEDS: IV DEXTROSE 5 %-0.2 % NACL 1,000 ML IV ×2 (02:35→15:39)
[2017-07-28] MEDS: oxyCODONE/APAP 10/325 1 TAB TABLET PO ×2 (02:35→20:41)
[2017-07-28 05:04] LABS: ADD MAN DIFF? NO
[2017-07-28 05:09] LABS: BASO % 0 % (0-3); EOS # 0.3 x10^3/uL (0.0-0.7); EOS % 8 % (0-3); HEMATOCRIT 28.2 % (36.0-47.0); HEMOGLOBIN 8.9 g/dL (12.0-15.5); LYMPH # 0.7 x10^3/uL (1.0-4.8); LYMPH % 21 % (24-48); MEAN CORPUSCULAR HEMOGLOBIN 28 pg (25-35); MEAN CORPUSCULAR HGB CONC 31 g/dL (31-37); MEAN CORPUSCULAR VOLUME 89 fL (79-100); MONO # 0.3 x10^3/uL (0.0-1.1); MONO % 8 % (0-9); NEUT # 2.2 x10^3uL (1.8-7.7); NEUT % 63 % (31-73); PLATELET COUNT 256 x10^3/uL (140-400); RED BLOOD COUNT 3.16 x10^6/uL (3.50-5.40); RED CELL DISTRIBUTION WIDTH 19.2 % (11.5-14.5); WHITE BLOOD COUNT 3.4 x10^3/uL (4.0-11.0)
[2017-07-28 05:33] LABS: ALBUMIN 2.3 g/dL (3.4-5.0); ALBUMIN/GLOBULIN RATIO 0.5 (1.0-1.7); ALK PHOS 59 U/L (46-116); ANION GAP 10 (6-14); AST (SGOT) 17 U/L (15-37); BLOOD UREA NITROGEN 25 mg/dL (7-20); BUN/CREATININE RATIO 10 (6-20); CALCIUM 8.6 mg/dL (8.5-10.1); CARBON DIOXIDE 25 mmol/L (21-32); CHLORIDE 112 mmol/L (98-107); CREATININE 2.6 mg/dL (0.6-1.0); GFR 18.8; GLUCOSE 125 mg/dL (70-99); POTASSIUM 3.4 mmol/L (3.5-5.1); SODIUM 147 mmol/L (136-145); TOTAL BILIRUBIN 0.5 mg/dL (0.2-1.0); TOTAL PROTEIN 7.1 g/dL (6.4-8.2)
[2017-07-28 05:52] LABS: ALT (SGPT) 12 U/L (14-59)
[2017-07-28] MEDS: PANTOPRAZOLE IV PUSH 40 MG VIAL. IVP (07:30)
[2017-07-28] MEDS: INSULIN ASPART 300 UNITS/3 ML INSULN.PEN SQ ×3 (08:00→17:00)
[2017-07-28] MEDS: NYSTATIN TOPICAL POWDER 15GM BOTTLE. TP ×2 (08:55→20:41)
[2017-07-28] MEDS: ALPRAZolam 0.5 MG TABLET PO ×3 (08:55→20:40)
[2017-07-28] MEDS: amLODIPine BESYLATE 5 MG TABLET PO ×2 (08:55→09:00)
[2017-07-28] MEDS: MULTIVIT INFUSN,ADULT 4,VIT K 10 ML, THIAMINE 100 MG, FOLIC ACID 1 MG in IV DEXTROSE 5 ... IV (08:55)
[2017-07-28] MEDS: FUROSEMIDE 40 MG/4 ML VIAL. IVP (08:55)
[2017-07-28] MEDS: MULTIVITAMIN with MINERAL TABLET. PO ×2 (08:55→09:00)
[2017-07-28] MEDS: ASPIRIN CHEWABLE 81 MG TABLET. PO ×2 (08:55→09:00)
[2017-07-28 11:56] LABS: POC GLUCOSE 106 mg/dL (70-99)
[2017-07-28] MEDS: POTASSIUM CHLORIDE 20 MEQ TABLET.ER. PO (16:15)
[2017-07-28] MEDS: POTASSIUM CL 20MEQ D5-0.2%NACL 1,000 ML IV (17:37)
[2017-07-28 18:30] LABS: POC GLUCOSE 91 mg/dL (70-99)
[2017-07-29] MEDS: oxyCODONE/APAP 10/325 1 TAB TABLET PO ×2 (04:25→13:46)
[2017-07-29] MEDS: METOPROLOL TARTRATE 5 MG/5 ML VIAL. IVP ×3 (06:00→17:57)
[2017-07-29] MEDS: POTASSIUM CL 20MEQ D5-0.2%NACL 1,000 ML IV (06:38)
[2017-07-29 08:39] LABS: ADD MAN DIFF? NO
[2017-07-29] MEDS: ALPRAZolam 0.5 MG TABLET PO ×3 (08:42→20:33)
[2017-07-29] MEDS: MULTIVITAMIN with MINERAL TABLET. PO (08:42)
[2017-07-29] MEDS: PANTOPRAZOLE IV PUSH 40 MG VIAL. IVP (08:42)
[2017-07-29] MEDS: FUROSEMIDE 40 MG/4 ML VIAL. IVP (08:42)
[2017-07-29 08:45] LABS: BASO % 1 % (0-3); EOS # 0.4 x10^3/uL (0.0-0.7); EOS % 7 % (0-3); HEMATOCRIT 32.3 % (36.0-47.0); HEMOGLOBIN 9.9 g/dL (12.0-15.5); LYMPH # 1.6 x10^3/uL (1.0-4.8); LYMPH % 30 % (24-48); MEAN CORPUSCULAR HEMOGLOBIN 28 pg (25-35); MEAN CORPUSCULAR HGB CONC 31 g/dL (31-37); MEAN CORPUSCULAR VOLUME 90 fL (79-100); MONO # 0.5 x10^3/uL (0.0-1.1); MONO % 9 % (0-9); NEUT # 2.8 x10^3uL (1.8-7.7); NEUT % 54 % (31-73); PLATELET COUNT 188 x10^3/uL (140-400); RED BLOOD COUNT 3.57 x10^6/uL (3.50-5.40); RED CELL DISTRIBUTION WIDTH 19.1 % (11.5-14.5); WHITE BLOOD COUNT 5.3 x10^3/uL (4.0-11.0)
[2017-07-29] MEDS: POTASSIUM CHLORIDE 20 MEQ TABLET.ER. PO (08:45)
[2017-07-29] MEDS: MULTIVIT INFUSN,ADULT 4,VIT K 10 ML, THIAMINE 100 MG, FOLIC ACID 1 MG in IV DEXTROSE 5 ... IV (08:48)
[2017-07-29] MEDS: ASPIRIN CHEWABLE 81 MG TABLET. PO (08:49)
[2017-07-29] MEDS: amLODIPine BESYLATE 5 MG TABLET PO (08:53)
[2017-07-29] MEDS: NYSTATIN TOPICAL POWDER 15GM BOTTLE. TP ×2 (08:53→20:33)
[2017-07-29 09:06] LABS: ALBUMIN 2.3 g/dL (3.4-5.0); ALBUMIN/GLOBULIN RATIO 0.5 (1.0-1.7); ALK PHOS 61 U/L (46-116); ALT (SGPT) 13 U/L (14-59); ANION GAP 13 (6-14); AST (SGOT) 21 U/L (15-37); BLOOD UREA NITROGEN 36 mg/dL (7-20); BUN/CREATININE RATIO 9 (6-20); CALCIUM 8.6 mg/dL (8.5-10.1); CARBON DIOXIDE 20 mmol/L (21-32); CHLORIDE 108 mmol/L (98-107); CREATININE 4.1 mg/dL (0.6-1.0); GFR 11.1; GLUCOSE 111 mg/dL (70-99); POTASSIUM 3.6 mmol/L (3.5-5.1); SODIUM 141 mmol/L (136-145); TOTAL BILIRUBIN 0.3 mg/dL (0.2-1.0); TOTAL PROTEIN 7.3 g/dL (6.4-8.2)
[2017-07-29] MEDS: INSULIN ASPART 300 UNITS/3 ML INSULN.PEN SQ (09:22)
[2017-07-29] MEDS ORDERED: MAGNESIUM SULFATE 2GM 50 ML IV (11:00)
[2017-07-29] MEDS ORDERED: IRON SUCROSE COMPLEX 200 MG in TOTAL VOLUME SYRINGE 0 ML IVP (11:15)
[2017-07-29] MEDS: [UNRECOGNIZED DRUG - OTHER] IV (12:04)
[2017-07-29] MEDS: POTASSIUM ACETATE IV (12:04)
[2017-07-29] MEDS: SODIUM BICARBONATE IV (12:04)
[2017-07-29] MEDS: HYDROmorphone 2 MG/ML VIAL IVP ×3 (12:05→22:59)
[2017-07-29] MEDS: VANCOMYCIN 125 MG/2.5 ML ORAL SOLUTION. PO ×3 (12:45→20:33)
[2017-07-29] MEDS: IRON SUCROSE COMPLEX 200 MG in TOTAL VOLUME SYRINGE 0 ML IVP (16:47)
[2017-07-30] MEDS: HYDROmorphone 2 MG/ML VIAL IVP ×4 (03:50→21:28)
[2017-07-30 04:44] LABS: ADD MAN DIFF? NO
[2017-07-30] MEDS: POTASSIUM ACETATE IV ×2 (04:50→21:37)
[2017-07-30] MEDS: [UNRECOGNIZED DRUG - OTHER] IV ×2 (04:50→21:37)
[2017-07-30] MEDS: SODIUM BICARBONATE IV ×2 (04:50→21:37)
[2017-07-30 04:51] LABS: BASO % 0 % (0-3); EOS # 0.4 x10^3/uL (0.0-0.7); EOS % 7 % (0-3); HEMATOCRIT 26.4 % (36.0-47.0); HEMOGLOBIN 8.5 g/dL (12.0-15.5); LYMPH # 1.2 x10^3/uL (1.0-4.8); LYMPH % 20 % (24-48); MEAN CORPUSCULAR HEMOGLOBIN 29 pg (25-35); MEAN CORPUSCULAR HGB CONC 32 g/dL (31-37); MEAN CORPUSCULAR VOLUME 88 fL (79-100); MONO # 0.5 x10^3/uL (0.0-1.1); MONO % 8 % (0-9); NEUT # 3.9 x10^3uL (1.8-7.7); NEUT % 65 % (31-73); PLATELET COUNT 183 x10^3/uL (140-400); RED CELL DISTRIBUTION WIDTH 18.4 % (11.5-14.5)
[2017-07-30 05:20] LABS: ALBUMIN/GLOBULIN RATIO 0.5 (1.0-1.7); ALK PHOS 59 U/L (46-116); ALT (SGPT) 12 U/L (14-59); ANION GAP 8 (6-14); AST (SGOT) 20 U/L (15-37); BLOOD UREA NITROGEN 35 mg/dL (7-20); BUN/CREATININE RATIO 11 (6-20); CARBON DIOXIDE 25 mmol/L (21-32); CHLORIDE 105 mmol/L (98-107); CREATININE 3.2 mg/dL (0.6-1.0); GFR 14.8; GLUCOSE 99 mg/dL (70-99); MAGNESIUM 1.3 mg/dL (1.8-2.4); PHOSPHORUS 3.3 mg/dL (2.6-4.7); SODIUM 138 mmol/L (136-145); TOTAL BILIRUBIN 0.2 mg/dL (0.2-1.0); TOTAL PROTEIN 6.3 g/dL (6.4-8.2)
[2017-07-30] MEDS: METOPROLOL TARTRATE 5 MG/5 ML VIAL. IVP ×5 (07:00→23:22)
[2017-07-30] MEDS: MAGNESIUM SULFATE 2GM 50 ML IV (07:17)
[2017-07-30] MEDS: MULTIVITAMIN with MINERAL TABLET. PO (09:43)
[2017-07-30] MEDS: VANCOMYCIN 125 MG/2.5 ML ORAL SOLUTION. PO ×4 (09:43→21:37)
[2017-07-30] MEDS: ALPRAZolam 0.5 MG TABLET PO ×3 (09:43→21:37)
[2017-07-30] MEDS: amLODIPine BESYLATE 5 MG TABLET PO (09:44)
[2017-07-30] MEDS: oxyCODONE/APAP 10/325 1 TAB TABLET PO ×2 (09:44→19:38)
[2017-07-30] MEDS: NYSTATIN TOPICAL POWDER 15GM BOTTLE. TP ×2 (09:44→21:00)
[2017-07-30] MEDS: ASPIRIN CHEWABLE 81 MG TABLET. PO (09:44)
[2017-07-30] MEDS: LACTOBACILLUS RHAMNOSUS GG 1 CAPSULE. PO (21:30)
[2017-07-30 22:00] LABS: C DIFF BY PCR Positive (Negative)
[2017-07-31] MEDS: HYDROmorphone 2 MG/ML VIAL IVP ×5 (03:14→21:26)
[2017-07-31 05:25] LABS: ADD MAN DIFF? NO
[2017-07-31 05:42] LABS: BASO % 0 % (0-3); EOS # 0.3 x10^3/uL (0.0-0.7); EOS % 6 % (0-3); HEMATOCRIT 24.9 % (36.0-47.0); HEMOGLOBIN 7.9 g/dL (12.0-15.5); LYMPH # 1.7 x10^3/uL (1.0-4.8); LYMPH % 31 % (24-48); MEAN CORPUSCULAR HEMOGLOBIN 28 pg (25-35); MEAN CORPUSCULAR HGB CONC 32 g/dL (31-37); MEAN CORPUSCULAR VOLUME 87 fL (79-100); MONO # 0.5 x10^3/uL (0.0-1.1); MONO % 10 % (0-9); NEUT # 2.8 x10^3uL (1.8-7.7); NEUT % 53 % (31-73); PLATELET COUNT 210 x10^3/uL (140-400); RED BLOOD COUNT 2.85 x10^6/uL (3.50-5.40); RED CELL DISTRIBUTION WIDTH 18.5 % (11.5-14.5); WHITE BLOOD COUNT 5.3 x10^3/uL (4.0-11.0)
[2017-07-31] MEDS: METOPROLOL TARTRATE 5 MG/5 ML VIAL. IVP ×3 (05:59→18:15)
[2017-07-31 06:14] LABS: ALBUMIN 1.9 g/dL (3.4-5.0); ALBUMIN/GLOBULIN RATIO 0.5 (1.0-1.7); ALK PHOS 59 U/L (46-116); ALT (SGPT) 10 U/L (14-59); ANION GAP 9 (6-14); AST (SGOT) 14 U/L (15-37); BLOOD UREA NITROGEN 34 mg/dL (7-20); BUN/CREATININE RATIO 12 (6-20); CALCIUM 8.8 mg/dL (8.5-10.1); CARBON DIOXIDE 27 mmol/L (21-32); CHLORIDE 102 mmol/L (98-107); CREATININE 2.8 mg/dL (0.6-1.0); GFR 17.2; GLUCOSE 90 mg/dL (70-99); MAGNESIUM 1.8 mg/dL (1.8-2.4); POTASSIUM 4.6 mmol/L (3.5-5.1); SODIUM 138 mmol/L (136-145); TOTAL BILIRUBIN 0.2 mg/dL (0.2-1.0); TOTAL PROTEIN 6.1 g/dL (6.4-8.2)
[2017-07-31] MEDS: ALPRAZolam 0.5 MG TABLET PO ×3 (08:16→21:27)
[2017-07-31] MEDS: VANCOMYCIN 125 MG/2.5 ML ORAL SOLUTION. PO ×4 (08:16→21:29)
[2017-07-31] MEDS: MULTIVITAMIN with MINERAL TABLET. PO (08:16)
[2017-07-31] MEDS: LACTOBACILLUS RHAMNOSUS GG 1 CAPSULE. PO ×2 (08:16→21:27)
[2017-07-31] MEDS: ASPIRIN CHEWABLE 81 MG TABLET. PO (08:17)
[2017-07-31] MEDS: amLODIPine BESYLATE 5 MG TABLET PO (08:17)
[2017-07-31] MEDS ORDERED: IRON SUCROSE COMPLEX 200 MG in IV NORMAL SALINE 100ML 100 ML IV (09:00)
[2017-07-31] MEDS: NYSTATIN TOPICAL POWDER 15GM BOTTLE. TP ×2 (11:31→21:28)
[2017-07-31] MEDS: SODIUM BICARBONATE IV (11:34)
[2017-07-31] MEDS: [UNRECOGNIZED DRUG - OTHER] IV (11:34)
[2017-07-31] MEDS: POTASSIUM ACETATE IV (11:34)
[2017-07-31 13:22] LABS: CREAT CLEAR 24 35 mL/min (88-128); CREATININE UR 24HR 1578 mg/24 hr (800-1800); PROTEIN 24 HR UR 2326 mg/24 hr (30-150); TOTAL URINE CREATININE 54.4 mg/dL (Not Estab.); UR PROTEIN 80.2 mg/dL (Not Estab.); eGFR AFRICAN-AMER 18 (>59); eGFR NON AFRICAN-AMER 16 (>59)
[2017-07-31] MEDS: IRON SUCROSE COMPLEX 200 MG in TOTAL VOLUME SYRINGE 0 ML IVP (16:07)
[2017-08-01] MEDS: oxyCODONE/APAP 10/325 1 TAB TABLET PO (03:23)
[2017-08-01] MEDS: HYDROmorphone 2 MG/ML VIAL IVP ×5 (04:15→22:19)
[2017-08-01 05:50] LABS: ALBUMIN 1.8 g/dL (3.4-5.0); ANION GAP 4 (6-14); BLOOD UREA NITROGEN 34 mg/dL (7-20); CALCIUM 8.6 mg/dL (8.5-10.1); CARBON DIOXIDE 31 mmol/L (21-32); CHLORIDE 100 mmol/L (98-107); CREATININE 2.3 mg/dL (0.6-1.0); GFR 21.6; GLUCOSE 98 mg/dL (70-99); PHOSPHORUS 2.7 mg/dL (2.6-4.7); SODIUM 135 mmol/L (136-145)
[2017-08-01 05:52] LABS: POTASSIUM 4.9 mmol/L (3.5-5.1)
[2017-08-01] MEDS: METOPROLOL TARTRATE 5 MG/5 ML VIAL. IVP ×4 (05:52→16:40)
[2017-08-01] MEDS: VANCOMYCIN 125 MG/2.5 ML ORAL SOLUTION. PO ×4 (08:51→20:28)
[2017-08-01] MEDS: ASPIRIN CHEWABLE 81 MG TABLET. PO (08:51)
[2017-08-01] MEDS: NYSTATIN TOPICAL POWDER 15GM BOTTLE. TP ×2 (08:51→20:28)
[2017-08-01] MEDS: LACTOBACILLUS RHAMNOSUS GG 1 CAPSULE. PO ×2 (08:51→20:28)
[2017-08-01] MEDS: MULTIVITAMIN with MINERAL TABLET. PO (08:51)
[2017-08-01] MEDS: ALPRAZolam 0.5 MG TABLET PO ×3 (08:51→20:28)
[2017-08-01] MEDS: amLODIPine BESYLATE 5 MG TABLET PO (09:04)
[2017-08-01] MEDS: THIAMINE 100 MG TABLET. PO (18:30)
[2017-08-02] MEDS: HYDROmorphone 2 MG/ML VIAL IVP ×5 (03:02→21:29)
[2017-08-02] MEDS: METOPROLOL TARTRATE 5 MG/5 ML VIAL. IVP ×4 (06:00→17:25)
[2017-08-02 06:02] LABS: ALBUMIN 2.1 g/dL (3.4-5.0); ANION GAP 6 (6-14); BLOOD UREA NITROGEN 32 mg/dL (7-20); CALCIUM 9.4 mg/dL (8.5-10.1); CARBON DIOXIDE 29 mmol/L (21-32); CHLORIDE 99 mmol/L (98-107); CREATININE 2.2 mg/dL (0.6-1.0); GFR 22.8; GLUCOSE 99 mg/dL (70-99); SODIUM 134 mmol/L (136-145)
[2017-08-02] MEDS: MULTIVITAMIN with MINERAL TABLET. PO (08:03)
[2017-08-02] MEDS: THIAMINE 100 MG TABLET. PO (08:03)
[2017-08-02] MEDS: VANCOMYCIN 125 MG/2.5 ML ORAL SOLUTION. PO ×4 (08:03→21:35)
[2017-08-02] MEDS: LACTOBACILLUS RHAMNOSUS GG 1 CAPSULE. PO ×2 (08:03→21:35)
[2017-08-02] MEDS: ALPRAZolam 0.5 MG TABLET PO ×2 (08:03→21:46)
[2017-08-02] MEDS: ASPIRIN CHEWABLE 81 MG TABLET. PO (08:03)
[2017-08-02] MEDS: NYSTATIN TOPICAL POWDER 15GM BOTTLE. TP ×2 (09:00→21:00)
[2017-08-02 10:00] LABS: HEMATOCRIT 27.6 % (36.0-47.0); HEMOGLOBIN 8.7 g/dL (12.0-15.5); MEAN CORPUSCULAR HGB CONC 31 g/dL (31-37)
[2017-08-02] MEDS: amLODIPine BESYLATE 5 MG TABLET PO (10:54)
[2017-08-02] MEDS: FERROUS SULFATE 325 MG TABLET. PO (10:54)
[2017-08-02] MEDS: IRON SUCROSE COMPLEX 200 MG in TOTAL VOLUME SYRINGE 0 ML IVP (17:21)
[2017-08-02] MEDS: CALCIUM CARBONATE 500 MG TAB.CHEW PO (21:35)
[2017-08-03] MEDS: oxyCODONE/APAP 5/325 1 TAB TABLET PO ×3 (01:03→15:05)
[2017-08-03] MEDS: HYDROmorphone 2 MG/ML VIAL IVP ×4 (01:51→22:06)
[2017-08-03] MEDS: METOPROLOL TARTRATE 5 MG/5 ML VIAL. IVP ×4 (06:00→18:19)
[2017-08-03 06:41] LABS: ADD MAN DIFF? NO
[2017-08-03 07:12] LABS: BASO # 0.1 x10^3/uL (0.0-0.2); BASO % 1 % (0-3); EOS # 0.4 x10^3/uL (0.0-0.7); EOS % 5 % (0-3); HEMOGLOBIN 9.2 g/dL (12.0-15.5); LYMPH # 2.6 x10^3/uL (1.0-4.8); LYMPH % 35 % (24-48); MEAN CORPUSCULAR HEMOGLOBIN 28 pg (25-35); MEAN CORPUSCULAR HGB CONC 32 g/dL (31-37); MEAN CORPUSCULAR VOLUME 88 fL (79-100); MONO # 0.7 x10^3/uL (0.0-1.1); MONO % 10 % (0-9); NEUT # 3.7 x10^3uL (1.8-7.7); NEUT % 49 % (31-73); PLATELET COUNT 394 x10^3/uL (140-400); RED BLOOD COUNT 3.29 x10^6/uL (3.50-5.40); RED CELL DISTRIBUTION WIDTH 18.5 % (11.5-14.5); WHITE BLOOD COUNT 7.5 x10^3/uL (4.0-11.0)
[2017-08-03 07:21] LABS: MAGNESIUM 2.2 mg/dL (1.8-2.4)
[2017-08-03 07:37] LABS: ALBUMIN 2.2 g/dL (3.4-5.0); ANION GAP 7 (6-14); BLOOD UREA NITROGEN 32 mg/dL (7-20); CALCIUM 9.5 mg/dL (8.5-10.1); CARBON DIOXIDE 28 mmol/L (21-32); CHLORIDE 99 mmol/L (98-107); CREATININE 2.4 mg/dL (0.6-1.0); GFR 20.6; GLUCOSE 103 mg/dL (70-99); PHOSPHORUS 4.2 mg/dL (2.6-4.7); POTASSIUM 4.4 mmol/L (3.5-5.1); SODIUM 134 mmol/L (136-145)
[2017-08-03 07:58] LABS: SEDIMENTATION RATE 80 (0-25)
[2017-08-03] MEDS: NYSTATIN TOPICAL POWDER 15GM BOTTLE. TP ×2 (09:00→21:00)
[2017-08-03] MEDS: VANCOMYCIN 125 MG/2.5 ML ORAL SOLUTION. PO ×4 (09:37→22:07)
[2017-08-03] MEDS: THIAMINE 100 MG TABLET. PO (09:38)
[2017-08-03] MEDS: MULTIVITAMIN with MINERAL TABLET. PO (09:38)
[2017-08-03] MEDS: LACTOBACILLUS RHAMNOSUS GG 1 CAPSULE. PO ×2 (09:38→22:06)
[2017-08-03] MEDS: amLODIPine BESYLATE 5 MG TABLET PO (09:38)
[2017-08-03] MEDS: ASPIRIN CHEWABLE 81 MG TABLET. PO (09:38)
[2017-08-03] MEDS: PANTOPRAZOLE 40 MG TABLET.DR. PO (09:38)
[2017-08-03] MEDS: FERROUS SULFATE 325 MG TABLET. PO (09:38)
[2017-08-03] MEDS: CALCIUM CARBONATE 500 MG TAB.CHEW PO (22:07)
[2017-08-04] MEDS: ALPRAZolam 0.5 MG TABLET PO ×3 (00:17→20:57)
[2017-08-04] MEDS: HYDROmorphone 2 MG/ML VIAL IVP ×5 (01:34→20:57)
[2017-08-04] MEDS: METOPROLOL TARTRATE 5 MG/5 ML VIAL. IVP ×2 (06:00)
[2017-08-04 06:35] LABS: ALBUMIN 2.4 g/dL (3.4-5.0); ANION GAP 10 (6-14); BLOOD UREA NITROGEN 29 mg/dL (7-20); CARBON DIOXIDE 25 mmol/L (21-32); CHLORIDE 99 mmol/L (98-107); CREATININE 2.4 mg/dL (0.6-1.0); GFR 20.6; GLUCOSE 90 mg/dL (70-99); PHOSPHORUS 4.4 mg/dL (2.6-4.7); POTASSIUM 4.7 mmol/L (3.5-5.1); SODIUM 134 mmol/L (136-145)
[2017-08-04] MEDS: NYSTATIN TOPICAL POWDER 15GM BOTTLE. TP (09:00)
[2017-08-04] MEDS: THIAMINE 100 MG TABLET. PO (09:14)
[2017-08-04] MEDS: FERROUS SULFATE 325 MG TABLET. PO (09:14)
[2017-08-04] MEDS: MULTIVITAMIN with MINERAL TABLET. PO (09:14)
[2017-08-04] MEDS: oxyCODONE/APAP 5/325 1 TAB TABLET PO ×2 (09:14→21:54)
[2017-08-04] MEDS: PANTOPRAZOLE 40 MG TABLET.DR. PO (09:14)
[2017-08-04] MEDS: LACTOBACILLUS RHAMNOSUS GG 1 CAPSULE. PO ×2 (09:15→20:58)
[2017-08-04] MEDS: amLODIPine BESYLATE 5 MG TABLET PO (09:15)
[2017-08-04] MEDS: ASPIRIN CHEWABLE 81 MG TABLET. PO (09:15)
[2017-08-04] MEDS: VANCOMYCIN 125 MG/2.5 ML ORAL SOLUTION. PO ×4 (09:20→20:58)
[2017-08-04] MEDS ORDERED: MENTHOL/CAMPHOR 0.5%/0.5% LOTION 222ML BOTTLE. TP (14:45)
[2017-08-04] MEDS ORDERED: METOCLOPRAMIDE HCL 10 MG/2 ML VIAL. IV (16:00)
[2017-08-04] MEDS: ONDANSETRON PF 4 MG/2 ML VIAL. IV ×2 (16:29→20:57)
[2017-08-04] MEDS ORDERED: CALCIUM CARBONATE 500 MG TAB.CHEW PO (18:30)
[2017-08-04] MEDS: CALCIUM CARBONATE 500 MG TAB.CHEW PO (18:35)
[2017-08-04] MEDS: PSYLLIUM HUSK (SUGAR FREE) 1 PKT PACKET PO (18:35)
[2017-08-04] MEDS: DARBEPOETIN ALFA 60 MCG/0.3 ML DISP.SYRIN. SQ (21:54)
[2017-08-05] MEDS: HYDROmorphone 2 MG/ML VIAL IVP ×3 (01:20→12:11)
[2017-08-05] MEDS: CALCIUM CARBONATE 500 MG TAB.CHEW PO ×3 (03:59→12:10)
[2017-08-05] MEDS: oxyCODONE/APAP 5/325 1 TAB TABLET PO ×3 (04:00→14:39)
[2017-08-05 05:15] LABS: ALBUMIN 2.3 g/dL (3.4-5.0); ANION GAP 11 (6-14); BLOOD UREA NITROGEN 35 mg/dL (7-20); CALCIUM 9.9 mg/dL (8.5-10.1); CARBON DIOXIDE 26 mmol/L (21-32); CHLORIDE 98 mmol/L (98-107); CREATININE 2.8 mg/dL (0.6-1.0); GFR 17.2; GLUCOSE 103 mg/dL (70-99); PHOSPHORUS 5.4 mg/dL (2.6-4.7); POTASSIUM 4.6 mmol/L (3.5-5.1); SODIUM 135 mmol/L (136-145)
[2017-08-05] MEDS: PSYLLIUM HUSK (SUGAR FREE) 1 PKT PACKET PO (09:04)
[2017-08-05] MEDS: ASPIRIN CHEWABLE 81 MG TABLET. PO (09:18)
[2017-08-05] MEDS: LACTOBACILLUS RHAMNOSUS GG 1 CAPSULE. PO (09:18)
[2017-08-05] MEDS: THIAMINE 100 MG TABLET. PO (09:18)
[2017-08-05] MEDS: FERROUS SULFATE 325 MG TABLET. PO (09:18)
[2017-08-05] MEDS: MULTIVITAMIN with MINERAL TABLET. PO (09:18)
[2017-08-05] MEDS: PANTOPRAZOLE 40 MG TABLET.DR. PO (09:18)
[2017-08-05] MEDS: VANCOMYCIN 125 MG/2.5 ML ORAL SOLUTION. PO ×2 (09:18→12:10)
[2017-08-05] MEDS: amLODIPine BESYLATE 5 MG TABLET PO (09:19)
[2017-08-05] MEDS: ALPRAZolam 0.5 MG TABLET PO (14:38)
== END 2017-08-05 15:55 | disposition home or self-care (01) | DRG 871 ==
LOC: ER 15:05 → ED HOLD 16:58 → 5 SOUTH 20:35
PROC: 5A09357 Assistance with Respiratory Ventilation, Less than 24 Consecutive Hours, Continuous Positive Airway Pressure (ICD-10-PCS; principal; 2017-07-26)
DX: A41.9 Sepsis, unspecified organism (principal); J96.21 Acute and chronic respiratory failure with hypoxia; F10.231 Alcohol dependence with withdrawal delirium; N17.9 Acute kidney failure, unspecified; E44.0 Moderate protein-calorie malnutrition; G92 Toxic encephalopathy; N18.4 Chronic kidney disease, stage 4 (severe); D64.9 Anemia, unspecified; S00.83XA Contusion of other part of head, initial encounter; E87.0 Hyperosmolality and hypernatremia; N39.0 Urinary tract infection, site not specified; E87.1 Hypo-osmolality and hyponatremia; J98.11 Atelectasis; Z68.27 Body mass index [BMI] 27.0-27.9, adult; Z88.8 Allergy status to other drugs, medicaments and biological substances; E78.5 Hyperlipidemia, unspecified; E87.8 Other disorders of electrolyte and fluid balance, not elsewhere classified; F32.9 Major depressive disorder, single episode, unspecified; F41.9 Anxiety disorder, unspecified; G31.9 Degenerative disease of nervous system, unspecified; G89.29 Other chronic pain; I12.9 Hypertensive chronic kidney disease with stage 1 through stage 4 chronic kidney disease, or unspecified chronic kidney disease; K21.9 Gastro-esophageal reflux disease without esophagitis; M79.7 Fibromyalgia; M19.90 Unspecified osteoarthritis, unspecified site; R29.6 Repeated falls; Z96.652 Presence of left artificial knee joint; Y90.0 Blood alcohol level of less than 20 mg/100 ml; Z66 Do not resuscitate; Z86.19 Personal history of other infectious and parasitic diseases; Z87.01 Personal history of pneumonia (recurrent); Z87.891 Personal history of nicotine dependence
CPT/HCPCS: 36415; 36600; 70450; 70551; 71045; 76770; 80053; 80069; 80307; 80329; 81001; 82140; 82575; 82805; 82962; 83605; 83690; 83735; 83880; 83930; 84100; 84156; 84443; 84484; 85014; 85018; 85025; 85610; 85651; 85730; 87040; 87086; 87324; 93005; 94660; 95816; 96361; 96365; 96375; 97110-GO; 97110-GP; 97116-GP; 97162-GP; 97166-GO; 97530-GP; 97535-GO; 99285; 99285-25; A4314; C9113; G0480; J0690; J0881; J1170; J1756; J1815; J1940; J2060; J2405; J3480; J3490; J7030; J7040; J7042; J7060

== ENCOUNTER → 2017-08-26 | Outpatient (CLI) | payer MEDICARE ==
[~2017-08-26] MED LIST changes: -ACET-704 PO; -ACET325T16 PO; -ACID1TAB14 PO; -ALPR0.5T PO; -ALPR0.5T6 PO; -AMLO10TA2 PO; -AMLO5TAB2 PO; -AMLO5TAB4 PO; -CEPH-264 PO; -CIPR250T30 PO; -CIPR500T94 PO; -CLON0.1T PO; -CLON0.5T PO; -CLON1PAT2; -DICY10CA53 PO; -DOXY100T PO; -DULO30CA2; -DULO30CA2 PO; -DULO60CA6 PO; -ESCITALOPRAM OX10 MG PO; -ESOM20CA30 PO; -ESOM40CA; -ESOM40CA PO; -FENT1PAT91 TP; -FLUC100T7 PO; -HYDR-2867 PO; -HYDR-971 PO; -HYDR25TA9 PO; -HYDR2TAB31 PO; -HYDR4TAB45; -HYDR4TAB45 PO; -IBUP-1060 PO; +IOHEXOL 180 MG/ML 10 ML VIAL.; -LEVO75TA PO; -LIDO700A4 TP; -LIPA1CAP12 PO; -LISI10TA2 PO; -LOPE2CAP PO; -LORA-434 PO; -LORA2TAB PO; -LORA2TAB89 PO; -METO10TA81 PO; -METO5VIA4 PO; -METR500T PO; -MORP30TA83 PO; -NYST15CR2 TP; -ONDA4TAB10 PO; -ONDA4TAB10 SL; -OSEL30CA PO; -OXYC-328 PO; -OXYC10TA PO; -OXYC10TA45; -OXYC15TA60 PO; -OXYC1TAB7 PO; -OXYC1TAB9 PO; -OXYC5TAB95 PO; -SILV400C TP; -SIMV20TA3 PO; -SULF1TAB24 PO; -Sulfamethoxazole/Trimethoprim PO; -TRAZ50TA15 PO; -VANC125C2 PO; -VITS56.7 TP; -Vancomycin Hcl PO; -ZOLP5TAB PO; +methylPREDNISolone ACETATE 40 MG/ML VIAL.; +methylPREDNISolone ACETATE 80 MG/ML VIAL.
== END | disposition home or self-care (01) ==
LOC: PNCL 09:12
DX: M51.16 Intervertebral disc disorders with radiculopathy, lumbar region (principal); M96.1 Postlaminectomy syndrome, not elsewhere classified; E78.00 Pure hypercholesterolemia, unspecified; I10 Essential (primary) hypertension; M19.90 Unspecified osteoarthritis, unspecified site; F41.9 Anxiety disorder, unspecified; F32.9 Major depressive disorder, single episode, unspecified; D64.9 Anemia, unspecified; K21.9 Gastro-esophageal reflux disease without esophagitis; Z87.39 Personal history of other diseases of the musculoskeletal system and connective tissue; Z98.51 Tubal ligation status; Z96.652 Presence of left artificial knee joint; Z72.89 Other problems related to lifestyle; Z88.6 Allergy status to analgesic agent; Z88.1 Allergy status to other antibiotic agents; Z86.14 Personal history of Methicillin resistant Staphylococcus aureus infection; Z98.890 Other specified postprocedural states
CPT/HCPCS: 62323; J1030; J1040; Q9965

== ENCOUNTER 2017-09-03 13:15 | Inpatient (IN) | payer MEDICARE ==
[2017-09-03 14:17] LABS: BILIRUBIN,URINE NEGATIVE (NEG); CLARITY,URINE TURBID; COLOR,URINE YELLOW; GLUCOSE,URINE NEGATIVE (NEG); NITRITE,URINE NEGATIVE (NEG); PROTEIN,URINE >=300 mg/dL (NEG-TRACE); UROBILINOGEN,URINE 0.2 mg/dL (0.2 mg/dL)
[2017-09-03 14:38] LABS: BACTERIA,URINE MANY /HPF (0-FEW); SQUAMOUS EPITHELIAL CELL,UR OCC /LPF; WBC,URINE TNTC /HPF (0-4)
[2017-09-03 14:41] LABS: ADD MAN DIFF? NO
[2017-09-03 14:46] LABS: BARBITURATES POS (NEG); BASO # 0.2 x10^3/uL (0.0-0.2); BASO % 2 % (0-3); BENZODIAZEPINES NEG (NEG); CANNABINOIDS NEG (NEG); COCAINE NEG (NEG); EOS # 0.1 x10^3/uL (0.0-0.7); EOS % 1 % (0-3); HEMATOCRIT 38.5 % (36.0-47.0); HEMOGLOBIN 12.8 g/dL (12.0-15.5); LYMPH # 2.3 x10^3/uL (1.0-4.8); LYMPH % 25 % (24-48); MEAN CORPUSCULAR HEMOGLOBIN 30 pg (25-35); MEAN CORPUSCULAR HGB CONC 33 g/dL (31-37); MEAN CORPUSCULAR VOLUME 91 fL (79-100); METHADONE NEG (NEG); MONO # 0.5 x10^3/uL (0.0-1.1); MONO % 6 % (0-9); NEUT # 6.3 x10^3uL (1.8-7.7); NEUT % 67 % (31-73); OPIATES NEG (NEG); PHENCYCLIDINE NEG (NEG); PLATELET COUNT 457 x10^3/uL (140-400); RED BLOOD COUNT 4.25 x10^6/uL (3.50-5.40); RED CELL DISTRIBUTION WIDTH 19.1 % (11.5-14.5); WHITE BLOOD COUNT 9.3 x10^3/uL (4.0-11.0)
[2017-09-03] MEDS: IV NORMAL SALINE 1000ML BAG 1,000 ML IV (14:51)
[2017-09-03] MEDS: ONDANSETRON PF 4 MG/2 ML VIAL. IV (14:52)
[2017-09-03 14:53] LABS: AMPHETAMINE/METHAMPHETAMINE NEG (NEG); ETHANOL, URINE POS (NEG)
[2017-09-03 15:03] LABS: PROTHROMBIN TIME PATIENT 12.8 SEC (11.7-14.0)
[2017-09-03 15:04] LABS: PARTIAL THROMBOPLASTIN TIME 35 SEC (24-38)
[2017-09-03 15:05] LABS: ETHANOL 178 mg/dL (0-10)
[2017-09-03 15:08] LABS: ANION GAP 22 (6-14); BLOOD UREA NITROGEN 21 mg/dL (7-20); BUN/CREATININE RATIO 12 (6-20); CALCIUM 9.8 mg/dL (8.5-10.1); CARBON DIOXIDE 18 mmol/L (21-32); CHLORIDE 88 mmol/L (98-107); CREATININE 1.7 mg/dL (0.6-1.0); GFR 30.7; GLUCOSE 83 mg/dL (70-99); POTASSIUM 4.4 mmol/L (3.5-5.1); SODIUM 128 mmol/L (136-145)
[2017-09-03 15:11] LABS: ALBUMIN 3.5 g/dL (3.4-5.0); ALBUMIN/GLOBULIN RATIO 0.6 (1.0-1.7); ALK PHOS 152 U/L (46-116); ALT (SGPT) 24 U/L (14-59); AST (SGOT) 43 U/L (15-37); MAGNESIUM 2.4 mg/dL (1.8-2.4); TOTAL BILIRUBIN 0.3 mg/dL (0.2-1.0); TOTAL PROTEIN 9.3 g/dL (6.4-8.2)
[2017-09-03 15:15] LABS: NT-PRO BNP 991 pg/mL (0-124)
[2017-09-03 15:19] LABS: TROPONINI < 0.017 ng/mL (0.000-0.055)
[2017-09-03] MEDS ORDERED: ONDANSETRON PF 4 MG/2 ML VIAL. IV (15:45)
[2017-09-03] MEDS: METOPROLOL TART IMMED RELEASE 50 MG TABLET. PO (16:35)
[2017-09-03] MEDS: fentaNYL PF VIAL 100 MCG/2 ML VIAL IV ×2 (18:51→19:24)
[2017-09-03] MEDS: ALPRAZolam 0.5 MG TABLET PO (20:42)
[2017-09-03] MEDS: oxyCODONE IR 5 MG TABLET PO (20:42)
[2017-09-04] MEDS: oxyCODONE IR 5 MG TABLET PO ×3 (02:23→21:39)
[2017-09-04] MEDS: fentaNYL PF VIAL 100 MCG/2 ML VIAL IV ×7 (03:26→23:50)
[2017-09-04 05:22] LABS: ADD MAN DIFF? NO
[2017-09-04 05:33] LABS: BASO # 0.1 x10^3/uL (0.0-0.2); BASO % 2 % (0-3); EOS # 0.2 x10^3/uL (0.0-0.7); EOS % 2 % (0-3); HEMATOCRIT 36.3 % (36.0-47.0); HEMOGLOBIN 11.9 g/dL (12.0-15.5); LYMPH # 1.9 x10^3/uL (1.0-4.8); LYMPH % 23 % (24-48); MEAN CORPUSCULAR HEMOGLOBIN 30 pg (25-35); MEAN CORPUSCULAR HGB CONC 33 g/dL (31-37); MEAN CORPUSCULAR VOLUME 91 fL (79-100); MONO # 1.1 x10^3/uL (0.0-1.1); MONO % 14 % (0-9); NEUT # 4.9 x10^3uL (1.8-7.7); NEUT % 60 % (31-73); PLATELET COUNT 425 x10^3/uL (140-400); RED BLOOD COUNT 3.97 x10^6/uL (3.50-5.40); WHITE BLOOD COUNT 8.2 x10^3/uL (4.0-11.0)
[2017-09-04 06:12] LABS: ANION GAP 12 (6-14); BLOOD UREA NITROGEN 33 mg/dL (7-20); CALCIUM 9.1 mg/dL (8.5-10.1); CARBON DIOXIDE 24 mmol/L (21-32); CHLORIDE 100 mmol/L (98-107); CREATININE 2.6 mg/dL (0.6-1.0); GFR 18.8; GLUCOSE 145 mg/dL (70-99); SODIUM 136 mmol/L (136-145)
[2017-09-04] MEDS: PANTOPRAZOLE 40 MG TABLET.DR. PO (07:30)
[2017-09-04] MEDS: ALPRAZolam 0.5 MG TABLET PO ×3 (07:31→21:39)
[2017-09-04] MEDS: ENOXAPARIN 30 MG/0.3 ML SYRINGE. SQ (13:34)
[2017-09-04] MEDS ORDERED: PANTOPRAZOLE IV PUSH 40 MG VIAL. IVP (14:00)
[2017-09-04] MEDS: MULTIVIT INFUSN,ADULT 4,VIT K 10 ML, THIAMINE 100 MG, FOLIC ACID 1 MG in IV NORMAL SALI... IV (15:07)
[2017-09-04] MEDS ORDERED: LIDO:MAALOX:DONNATAL 1:1:1 15 ML SINGLE DOSE SWSW (15:15)
[2017-09-04] MEDS: METOCLOPRAMIDE ORAL SOLN 10 MG/10 ML SOLUTION. PO ×2 (16:30→21:40)
[2017-09-04] MEDS ORDERED: ONDANSETRON ODT 4 MG TAB.RAPDIS. PO (17:30)
[2017-09-04] MEDS ORDERED: ONDANSETRON PF 4 MG/2 ML VIAL. IV (17:30)
[2017-09-04] MEDS ORDERED: PROCHLORPERAZINE 10 MG/2 ML VIAL. IV (17:30)
[2017-09-04] MEDS: cefTRIAXone IV Push 1 GM VIAL. IVP (17:40)
[2017-09-04] MEDS: ZOLPIDEM 5 MG TABLET. PO (21:39)
[2017-09-04] MEDS: LACTOBACILLUS RHAMNOSUS GG 1 CAPSULE. PO (21:39)
[2017-09-04] MEDS: LABETALOL 20 MG/4 ML DISP.SYRIN. IVP (23:41)
[2017-09-05] MEDS: fentaNYL PF VIAL 100 MCG/2 ML VIAL IV ×8 (02:35→23:24)
[2017-09-05 03:18] LABS: MRSA BY PCR Positive (Negative)
[2017-09-05 06:09] LABS: ADD MAN DIFF? NO
[2017-09-05 06:19] LABS: BASO # 0.1 x10^3/uL (0.0-0.2); BASO % 1 % (0-3); EOS # 0.2 x10^3/uL (0.0-0.7); EOS % 3 % (0-3); HEMATOCRIT 32.9 % (36.0-47.0); HEMOGLOBIN 10.9 g/dL (12.0-15.5); LYMPH # 1.9 x10^3/uL (1.0-4.8); LYMPH % 26 % (24-48); MEAN CORPUSCULAR HEMOGLOBIN 31 pg (25-35); MEAN CORPUSCULAR HGB CONC 33 g/dL (31-37); MEAN CORPUSCULAR VOLUME 93 fL (79-100); MONO % 14 % (0-9); NEUT # 3.9 x10^3uL (1.8-7.7); NEUT % 55 % (31-73); PLATELET COUNT 308 x10^3/uL (140-400); RED BLOOD COUNT 3.54 x10^6/uL (3.50-5.40); RED CELL DISTRIBUTION WIDTH 19.3 % (11.5-14.5); WHITE BLOOD COUNT 7.2 x10^3/uL (4.0-11.0)
[2017-09-05 06:45] LABS: ALBUMIN 2.4 g/dL (3.4-5.0); ALBUMIN/GLOBULIN RATIO 0.6 (1.0-1.7); ALK PHOS 99 U/L (46-116); ALT (SGPT) 12 U/L (14-59); ANION GAP 10 (6-14); AST (SGOT) 16 U/L (15-37); BLOOD UREA NITROGEN 34 mg/dL (7-20); BUN/CREATININE RATIO 19 (6-20); CARBON DIOXIDE 25 mmol/L (21-32); CHLORIDE 105 mmol/L (98-107); CREATININE 1.8 mg/dL (0.6-1.0); GFR 28.7; GLUCOSE 105 mg/dL (70-99); SODIUM 140 mmol/L (136-145); TOTAL BILIRUBIN 0.2 mg/dL (0.2-1.0); TOTAL PROTEIN 6.7 g/dL (6.4-8.2)
[2017-09-05] MEDS ORDERED: LIDOCAINE 1% PF 2 ML VIAL. ID (07:30)
[2017-09-05] MEDS ORDERED: fentaNYL PF VIAL 100 MCG/2 ML VIAL IV ×2 (07:30)
[2017-09-05] MEDS ORDERED: PANTOPRAZOLE IV PUSH 40 MG VIAL. IVP (07:30)
[2017-09-05] MEDS ORDERED: MIDAZOLAM HCL/PF 2 MG/2 ML VIAL. IV (07:30)
[2017-09-05] MEDS: PANTOPRAZOLE 40 MG TABLET.DR. PO (08:12)
[2017-09-05] MEDS: METOCLOPRAMIDE ORAL SOLN 10 MG/10 ML SOLUTION. PO ×4 (08:12→21:05)
[2017-09-05] MEDS: ALPRAZolam 0.5 MG TABLET PO ×3 (08:14→21:05)
[2017-09-05] MEDS: LACTOBACILLUS RHAMNOSUS GG 1 CAPSULE. PO ×2 (09:58→21:05)
[2017-09-05] MEDS: LABETALOL 20 MG/4 ML DISP.SYRIN. IVP ×2 (10:46→21:10)
[2017-09-05] MEDS: oxyCODONE IR 5 MG TABLET PO ×2 (12:50→19:50)
[2017-09-05] MEDS: IV RINGERS,LACTATED 1000ML 1,000 ML IV (13:25)
[2017-09-05] MEDS ORDERED: PROPOFOL 20 ML IV (13:49)
[2017-09-05] MEDS ORDERED: LIDOCAINE 2% 100 MG/5 ML SYRINGE. (13:50)
[2017-09-05] MEDS: ENOXAPARIN 30 MG/0.3 ML SYRINGE. SQ (15:15)
[2017-09-05] MEDS: MUPIROCIN 2 % NASAL OINTMENT 22GM TUBE. NS ×2 (15:16→21:00)
[2017-09-05] MEDS: cefTRIAXone IV Push 1 GM VIAL. IVP (16:46)
[2017-09-05] MEDS: ZOLPIDEM 5 MG TABLET. PO (21:05)
[2017-09-06] MEDS: fentaNYL PF VIAL 100 MCG/2 ML VIAL IV ×6 (02:25→22:00)
[2017-09-06] MEDS: LABETALOL 20 MG/4 ML DISP.SYRIN. IVP ×4 (02:25→23:59)
[2017-09-06] MEDS: oxyCODONE IR 5 MG TABLET PO ×4 (03:24→20:44)
[2017-09-06 04:18] LABS: ADD MAN DIFF? NO
[2017-09-06 04:22] LABS: BASO # 0.1 x10^3/uL (0.0-0.2); BASO % 1 % (0-3); EOS # 0.3 x10^3/uL (0.0-0.7); EOS % 4 % (0-3); HEMATOCRIT 31.9 % (36.0-47.0); HEMOGLOBIN 10.3 g/dL (12.0-15.5); LYMPH # 2.1 x10^3/uL (1.0-4.8); LYMPH % 28 % (24-48); MEAN CORPUSCULAR HEMOGLOBIN 30 pg (25-35); MEAN CORPUSCULAR HGB CONC 32 g/dL (31-37); MEAN CORPUSCULAR VOLUME 93 fL (79-100); MONO % 13 % (0-9); NEUT # 4.1 x10^3uL (1.8-7.7); NEUT % 54 % (31-73); PLATELET COUNT 295 x10^3/uL (140-400); RED BLOOD COUNT 3.43 x10^6/uL (3.50-5.40); RED CELL DISTRIBUTION WIDTH 18.8 % (11.5-14.5); WHITE BLOOD COUNT 7.6 x10^3/uL (4.0-11.0)
[2017-09-06 04:45] LABS: ALBUMIN 2.4 g/dL (3.4-5.0); ALBUMIN/GLOBULIN RATIO 0.6 (1.0-1.7); ALK PHOS 94 U/L (46-116); ALT (SGPT) 12 U/L (14-59); ANION GAP 10 (6-14); AST (SGOT) 13 U/L (15-37); BLOOD UREA NITROGEN 24 mg/dL (7-20); BUN/CREATININE RATIO 16 (6-20); CALCIUM 9.1 mg/dL (8.5-10.1); CARBON DIOXIDE 23 mmol/L (21-32); CHLORIDE 104 mmol/L (98-107); CREATININE 1.5 mg/dL (0.6-1.0); GFR 35.4; GLUCOSE 133 mg/dL (70-99); POTASSIUM 3.9 mmol/L (3.5-5.1); SODIUM 137 mmol/L (136-145); TOTAL BILIRUBIN 0.1 mg/dL (0.2-1.0); TOTAL PROTEIN 6.7 g/dL (6.4-8.2)
[2017-09-06] MEDS: PANTOPRAZOLE 40 MG TABLET.DR. PO (07:20)
[2017-09-06] MEDS: METOCLOPRAMIDE ORAL SOLN 10 MG/10 ML SOLUTION. PO ×4 (07:30→20:44)
[2017-09-06] MEDS: LACTOBACILLUS RHAMNOSUS GG 1 CAPSULE. PO ×2 (09:28→20:44)
[2017-09-06] MEDS: ALPRAZolam 0.5 MG TABLET PO ×3 (09:29→20:44)
[2017-09-06] MEDS: MUPIROCIN 2 % NASAL OINTMENT 22GM TUBE. NS ×2 (09:32→22:01)
[2017-09-06] MEDS: NYSTATIN TOPICAL POWDER 15GM BOTTLE. TP ×2 (11:36→20:45)
[2017-09-06] MEDS: ENOXAPARIN 40 MG/0.4 ML SYRINGE. SQ (14:16)
[2017-09-06] MEDS: SMZ/TMP 800/160MG TABLET. PO ×2 (15:00→22:00)
[2017-09-06] MEDS: metroNIDAZOLE 500 MG TABLET PO (15:30)
[2017-09-06 15:47] LABS: C DIFF BY PCR Positive (Negative)
[2017-09-06] MEDS ORDERED: PANTOPRAZOLE 40 MG TABLET.DR. PO (16:30)
[2017-09-06] MEDS: VANCOMYCIN 125 MG/2.5 ML ORAL SOLUTION. PO ×2 (16:40→20:44)
[2017-09-06] MEDS: FAMOTIDINE 20 MG TABLET. PO (20:44)
[2017-09-06] MEDS: ZOLPIDEM 5 MG TABLET. PO (22:00)
[2017-09-07] MEDS: fentaNYL PF VIAL 100 MCG/2 ML VIAL IV ×4 (00:56→08:48)
[2017-09-07] MEDS: LABETALOL 20 MG/4 ML DISP.SYRIN. IVP ×2 (03:37→08:57)
[2017-09-07] MEDS: oxyCODONE IR 5 MG TABLET PO (07:30)
[2017-09-07] MEDS: METOCLOPRAMIDE ORAL SOLN 10 MG/10 ML SOLUTION. PO (07:30)
[2017-09-07] MEDS: VANCOMYCIN 125 MG/2.5 ML ORAL SOLUTION. PO (08:48)
[2017-09-07] MEDS: ALPRAZolam 0.5 MG TABLET PO (08:48)
[2017-09-07] MEDS: LACTOBACILLUS RHAMNOSUS GG 1 CAPSULE. PO (08:48)
[2017-09-07] MEDS: NYSTATIN TOPICAL POWDER 15GM BOTTLE. TP (08:48)
[2017-09-07] MEDS: MUPIROCIN 2 % NASAL OINTMENT 22GM TUBE. NS (08:48)
[2017-09-07] MEDS: SMZ/TMP 800/160MG TABLET. PO (08:48)
== END 2017-09-07 11:00 | disposition home or self-care (01) | DRG 871 ==
LOC: ER 13:15 → 5 NORTH 15:22
PROC: 0DB58ZX Excision of Esophagus, Via Natural or Artificial Opening Endoscopic, Diagnostic (ICD-10-PCS; principal; 2017-09-05 13:59)
DX: A41.9 Sepsis, unspecified organism (principal); N17.0 Acute kidney failure with tubular necrosis; A04.72 Enterocolitis due to Clostridium difficile, not specified as recurrent; K31.84 Gastroparesis; N13.30 Unspecified hydronephrosis; N31.9 Neuromuscular dysfunction of bladder, unspecified; N39.0 Urinary tract infection, site not specified; N18.4 Chronic kidney disease, stage 4 (severe); N32.0 Bladder-neck obstruction; D64.9 Anemia, unspecified; E78.5 Hyperlipidemia, unspecified; F10.20 Alcohol dependence, uncomplicated; F32.9 Major depressive disorder, single episode, unspecified; F41.9 Anxiety disorder, unspecified; I12.9 Hypertensive chronic kidney disease with stage 1 through stage 4 chronic kidney disease, or unspecified chronic kidney disease; K21.0 Gastro-esophageal reflux disease with esophagitis; K22.4 Dyskinesia of esophagus; K22.70 Barrett's esophagus without dysplasia; K25.9 Gastric ulcer, unspecified as acute or chronic, without hemorrhage or perforation; K44.9 Diaphragmatic hernia without obstruction or gangrene; M19.90 Unspecified osteoarthritis, unspecified site; M25.78 Osteophyte, vertebrae; M48.061 Spinal stenosis, lumbar region without neurogenic claudication; M51.36 Other intervertebral disc degeneration, lumbar region; M79.7 Fibromyalgia; Z96.652 Presence of left artificial knee joint; Y90.6 Blood alcohol level of 120-199 mg/100 ml; Z82.49 Family history of ischemic heart disease and other diseases of the circulatory system; Z88.1 Allergy status to other antibiotic agents; Z88.5 Allergy status to narcotic agent; Z88.8 Allergy status to other drugs, medicaments and biological substances
CPT/HCPCS: 36415; 72148; 74176; 76700; 80048; 80053; 80307; 81001; 83735; 83880; 84484; 85025; 85610; 85730; 87086; 87186; 87324; 87641; 88305; G0480; J0690; J0696; J1650; J2060; J2405; J2704; J3010; J3490; J7030; J7120; J8597

== ENCOUNTER → 2017-09-09 | Outpatient (CLI) | payer MEDICARE | LOC: PNCL 08:55 | DX: M51.16 Intervertebral disc disorders with radiculopathy, lumbar region (principal); M96.1 Postlaminectomy syndrome, not elsewhere classified; E78.00 Pure hypercholesterolemia, unspecified; I10 Essential (primary) hypertension; I95.9 Hypotension, unspecified; K21.9 Gastro-esophageal reflux disease without esophagitis; M19.90 Unspecified osteoarthritis, unspecified site; F32.9 Major depressive disorder, single episode, unspecified; F41.9 Anxiety disorder, unspecified; Z86.2 Personal history of diseases of the blood and blood-forming organs and certain disorders involving the immune mechanism; Z88.6 Allergy status to analgesic agent; Z98.51 Tubal ligation status; Z87.440 Personal history of urinary (tract) infections; Z96.652 Presence of left artificial knee joint; Z88.8 Allergy status to other drugs, medicaments and biological substances; Z88.1 Allergy status to other antibiotic agents; Z82.49 Family history of ischemic heart disease and other diseases of the circulatory system; Z81.8 Family history of other mental and behavioral disorders | CPT/HCPCS: 62323; J1030; J1040; Q9965 ==

== ENCOUNTER 2018-01-19 17:31 | Emergency (ER) | payer MEDICARE ==
[2018-01-19] MEDS: hydrALAZINE 20 MG/ML VIAL. IVP (18:31)
[2018-01-19 18:45] LABS: ADD MAN DIFF? NO
[2018-01-19 18:52] LABS: BASO % 0 % (0-3); EOS # 0.3 x10^3/uL (0.0-0.7); EOS % 4 % (0-3); HEMATOCRIT 35.4 % (36.0-47.0); HEMOGLOBIN 11.9 g/dL (12.0-15.5); LYMPH # 2.9 x10^3/uL (1.0-4.8); LYMPH % 40 % (24-48); MEAN CORPUSCULAR HEMOGLOBIN 28 pg (25-35); MEAN CORPUSCULAR HGB CONC 34 g/dL (31-37); MEAN CORPUSCULAR VOLUME 82 fL (79-100); MONO # 0.7 x10^3/uL (0.0-1.1); MONO % 9 % (0-9); NEUT # 3.4 x10^3uL (1.8-7.7); NEUT % 46 % (31-73); PLATELET COUNT 363 x10^3/uL (140-400); RED BLOOD COUNT 4.31 x10^6/uL (3.50-5.40); RED CELL DISTRIBUTION WIDTH 16.5 % (11.5-14.5); WHITE BLOOD COUNT 7.3 x10^3/uL (4.0-11.0)
[2018-01-19 19:04] LABS: PROTHROMBIN TIME PATIENT 12.9 SEC (11.7-14.0)
[2018-01-19 19:04] LABS: ETHANOL 29 mg/dL (0-10)
[2018-01-19 19:05] LABS: ANION GAP 15 (6-14); BLOOD UREA NITROGEN 21 mg/dL (7-20); BUN/CREATININE RATIO 11 (6-20); CALCIUM 9.9 mg/dL (8.5-10.1); CARBON DIOXIDE 21 mmol/L (21-32); CHLORIDE 101 mmol/L (98-107); GFR 25.3; GLUCOSE 77 mg/dL (70-99); POTASSIUM 4.1 mmol/L (3.5-5.1); SODIUM 137 mmol/L (136-145)
[2018-01-19 19:12] LABS: ALBUMIN 3.5 g/dL (3.4-5.0); ALBUMIN/GLOBULIN RATIO 0.8 (1.0-1.7); ALK PHOS 99 U/L (46-116); ALT (SGPT) 15 U/L (14-59); AST (SGOT) 22 U/L (15-37); DIRECT BILIRUBIN 0.1 mg/dL (0.0-0.2); LIPASE 235 U/L (73-393); MAGNESIUM 2.2 mg/dL (1.8-2.4); TOTAL BILIRUBIN 0.2 mg/dL (0.2-1.0); TOTAL PROTEIN 7.9 g/dL (6.4-8.2)
[2018-01-19 19:16] LABS: TROPONINI < 0.017 ng/mL (0.000-0.055)
[2018-01-19 19:23] LABS: LACTIC ACID 1.7 mmol/L (0.4-2.0)
[2018-01-19] MEDS: ONDANSETRON PF 4 MG/2 ML VIAL. IV (20:49)
[2018-01-19] MEDS: DEXAMETHASONE 4 MG TABLET PO (20:50)
[2018-01-19] MEDS: BUTALB/APAP/CAFEIN 50/325/40MG TABLET. PO (20:51)
[2018-01-19] MEDS: fentaNYL PF VIAL 100 MCG/2 ML VIAL IV (21:50)
[2018-01-19] MEDS ORDERED: fentaNYL PF VIAL 100 MCG/2 ML VIAL IM (22:00)
== END 2018-01-19 22:02 | disposition home or self-care (01) ==
LOC: ER 22:02
DX: I10 Essential (primary) hypertension (principal); R51 Headache; F41.9 Anxiety disorder, unspecified; Z88.1 Allergy status to other antibiotic agents; Z88.5 Allergy status to narcotic agent
CPT/HCPCS: 36415; 70450; 80053; 80076; 83605; 83690; 83735; 84484; 85025; 85610; 93005; 96374; 96375; 99285-25; G0480; J0360; J2405; J3010; J8540

== ENCOUNTER 2018-01-21 17:57 | Inpatient (IN) | payer MEDICARE ==
[2018-01-21 18:48] LABS: ADD MAN DIFF? NO
[2018-01-21] MEDS: IV NORMAL SALINE 1000ML BAG 1,000 ML IV (18:53)
[2018-01-21] MEDS: ONDANSETRON PF 4 MG/2 ML VIAL. IV (18:54)
[2018-01-21] MEDS: FAMOTIDINE 20 MG/2 ML VIAL IVP (18:56)
[2018-01-21] MEDS: fentaNYL PF VIAL 100 MCG/2 ML VIAL IV ×3 (18:57→22:05)
[2018-01-21 19:02] LABS: BASO # 0.1 x10^3/uL (0.0-0.2); BASO % 1 % (0-3); EOS % 0 % (0-3); HEMATOCRIT 37.1 % (36.0-47.0); HEMOGLOBIN 12.5 g/dL (12.0-15.5); LYMPH # 2.4 x10^3/uL (1.0-4.8); LYMPH % 18 % (24-48); MEAN CORPUSCULAR HEMOGLOBIN 27 pg (25-35); MEAN CORPUSCULAR HGB CONC 34 g/dL (31-37); MEAN CORPUSCULAR VOLUME 81 fL (79-100); MONO # 1.1 x10^3/uL (0.0-1.1); MONO % 8 % (0-9); NEUT # 9.5 x10^3uL (1.8-7.7); NEUT % 73 % (31-73); PLATELET COUNT 424 x10^3/uL (140-400); RED BLOOD COUNT 4.57 x10^6/uL (3.50-5.40); RED CELL DISTRIBUTION WIDTH 16.9 % (11.5-14.5); WHITE BLOOD COUNT 13.2 x10^3/uL (4.0-11.0)
[2018-01-21 19:08] LABS: BILIRUBIN,URINE NEGATIVE (NEG); CLARITY,URINE CLOUDY; COLOR,URINE YELLOW; GLUCOSE,URINE NEGATIVE (NEG); NITRITE,URINE NEGATIVE (NEG); PROTEIN,URINE >=300 mg/dL (NEG-TRACE); UROBILINOGEN,URINE 0.2 mg/dL (0.2 mg/dL)
[2018-01-21 19:09] LABS: ALBUMIN 4.2 g/dL (3.4-5.0); ALK PHOS 105 U/L (46-116); ALT (SGPT) 17 U/L (14-59); ANION GAP 13 (6-14); AST (SGOT) 26 U/L (15-37); BLOOD UREA NITROGEN 36 mg/dL (7-20); CALCIUM 11.1 mg/dL (8.5-10.1); CARBON DIOXIDE 32 mmol/L (21-32); CHLORIDE 91 mmol/L (98-107); CREATININE 3.1 mg/dL (0.6-1.0); DIRECT BILIRUBIN 0.1 mg/dL (0.0-0.2); GFR 15.3; GLUCOSE 117 mg/dL (70-99); LIPASE 237 U/L (73-393); SODIUM 136 mmol/L (136-145); TOTAL BILIRUBIN 0.2 mg/dL (0.2-1.0); TOTAL PROTEIN 9.8 g/dL (6.4-8.2)
[2018-01-21 19:14] LABS: POTASSIUM 2.8 mmol/L (3.5-5.1)
[2018-01-21 19:18] LABS: BACTERIA,URINE MANY /HPF (0-FEW); SQUAMOUS EPITHELIAL CELL,UR FEW /LPF; WBC,URINE 20-40 /HPF (0-4)
[2018-01-21] MEDS: POTASSIUM CHLORIDE 20 MEQ/15 ML ORAL LIQUID. PO (19:57)
[2018-01-21] MEDS ORDERED: MORPHINE SULFATE 4 MG/ML DISP.SYRIN. IV (20:30)
[2018-01-21] MEDS ORDERED: ONDANSETRON PF 4 MG/2 ML VIAL. IV (20:30)
[2018-01-21] MEDS ORDERED: ACETAMINOPHEN 325 MG TABLET. PO (20:30)
[2018-01-21] MEDS: hydrALAZINE 20 MG/ML VIAL. IVP (20:38)
[2018-01-21] MEDS: POTASSIUM CL 20MEQ-0.45% NACL 1,000 ML IV (20:48)
[2018-01-21] MEDS: cloNIDine HCL 0.1 MG TABLET PO (20:48)
[2018-01-21 21:30] LABS: ETHANOL < 10 mg/dL (0-10)
[2018-01-21 22:18] LABS: MAGNESIUM 2.2 mg/dL (1.8-2.4)
[2018-01-21] MEDS: PANTOPRAZOLE IV PUSH 40 MG VIAL. IVP (23:32)
[2018-01-22 00:15] LABS: LACTIC ACID 1.3 mmol/L (0.4-2.0)
[2018-01-22] MEDS: fentaNYL PF VIAL 100 MCG/2 ML VIAL IV ×6 (01:12→22:06)
[2018-01-22] MEDS: LIDO:MAALOX 1:1 20 ML SINGLE DOSE. PO ×2 (01:12→09:00)
[2018-01-22] MEDS: oxyCODONE IR 5 MG TABLET PO (04:19)
[2018-01-22] MEDS: POTASSIUM CL 20MEQ D5-0.45NACL 1,000 ML IV (04:54)
[2018-01-22] MEDS ORDERED: PANTOPRAZOLE 40 MG TABLET.DR. PO (07:30)
[2018-01-22] MEDS ORDERED: ONDANSETRON PF 4 MG/2 ML VIAL. IV (08:45)
[2018-01-22] MEDS ORDERED: ONDANSETRON ODT 4 MG TAB.RAPDIS. PO (08:45)
[2018-01-22] MEDS ORDERED: DULoxetine HCL 30 MG CAPSULE.DR PO (09:00)
[2018-01-22] MEDS ORDERED: C.DIFF MED SCREEN BY RX. MC (09:00)
[2018-01-22] MEDS: POTASSIUM CHLORIDE 20 MEQ TABLET.ER. PO (09:02)
[2018-01-22] MEDS: LACTOBACILLUS RHAMNOSUS GG 1 CAPSULE. PO ×2 (09:02→22:14)
[2018-01-22] MEDS: hydrALAZINE 20 MG/ML VIAL. IVP (09:03)
[2018-01-22] MEDS: ONDANSETRON PF 4 MG/2 ML VIAL. IV (09:12)
[2018-01-22] MEDS: POTASSIUM CL 30MEQ D5-0.45NACL 1,000 ML IV (09:33)
[2018-01-22] MEDS: ALPRAZolam 0.25 MG TABLET PO ×2 (10:18→22:15)
[2018-01-22] MEDS: PANTOPRAZOLE 40 MG TABLET.DR. PO (12:57)
[2018-01-22] MEDS: METOCLOPRAMIDE ORAL SOLN 10 MG/10 ML SOLUTION. PO ×3 (12:58→22:16)
[2018-01-22] MEDS: oxyCODONE/APAP 5/325 1 TAB TABLET PO (12:58)
[2018-01-22 13:06] LABS: ANION GAP 13 (6-14); BLOOD UREA NITROGEN 26 mg/dL (7-20); CALCIUM 9.4 mg/dL (8.5-10.1); CARBON DIOXIDE 25 mmol/L (21-32); CHLORIDE 97 mmol/L (98-107); CREATININE 2.6 mg/dL (0.6-1.0); GFR 18.7; GLUCOSE 110 mg/dL (70-99); POTASSIUM 4.1 mmol/L (3.5-5.1); SODIUM 135 mmol/L (136-145)
[2018-01-22 13:28] LABS: AMPHETAMINE/METHAMPHETAMINE NEG (NEG); BARBITURATES POS (NEG); BENZODIAZEPINES NEG (NEG); CANNABINOIDS NEG (NEG); COCAINE NEG (NEG); ETHANOL, URINE NEG (NEG); METHADONE NEG (NEG); OPIATES NEG (NEG); PHENCYCLIDINE NEG (NEG)
[2018-01-22] MEDS: FAMOTIDINE 20 MG TABLET. PO (22:14)
[2018-01-22] MEDS: cefTRIAXone IV Push 1 GM VIAL. IVP (22:19)
[2018-01-23] MEDS: fentaNYL PF VIAL 100 MCG/2 ML VIAL IV ×7 (01:04→23:01)
[2018-01-23] MEDS: POTASSIUM CL 30MEQ D5-0.45NACL 1,000 ML IV (04:06)
[2018-01-23] MEDS ORDERED: LIDOCAINE 1% PF 2 ML VIAL. ID (07:00)
[2018-01-23] MEDS: IV RINGERS,LACTATED 1000ML 1,000 ML IV ×2 (07:00→14:10)
[2018-01-23] MEDS ORDERED: ONDANSETRON PF 4 MG/2 ML VIAL. IV (07:00)
[2018-01-23] MEDS ORDERED: fentaNYL PF VIAL 100 MCG/2 ML VIAL IV ×2 (07:00)
[2018-01-23] MEDS ORDERED: MORPHINE SULFATE 2 MG/ML DISP.SYRIN. IV (07:00)
[2018-01-23] MEDS: ALPRAZolam 0.25 MG TABLET PO ×2 (07:41→20:30)
[2018-01-23 08:18] LABS: ALBUMIN 2.8 g/dL (3.4-5.0); ANION GAP 8 (6-14); BLOOD UREA NITROGEN 19 mg/dL (7-20); CARBON DIOXIDE 27 mmol/L (21-32); CHLORIDE 104 mmol/L (98-107); CREATININE 2.2 mg/dL (0.6-1.0); GFR 22.7; GLUCOSE 108 mg/dL (70-99); PHOSPHORUS 3.3 mg/dL (2.6-4.7); POTASSIUM 3.8 mmol/L (3.5-5.1); SODIUM 139 mmol/L (136-145)
[2018-01-23 09:25] LABS: ADD MAN DIFF? NO
[2018-01-23] MEDS: METOCLOPRAMIDE ORAL SOLN 10 MG/10 ML SOLUTION. PO ×4 (09:56→20:30)
[2018-01-23] MEDS: LACTOBACILLUS RHAMNOSUS GG 1 CAPSULE. PO ×2 (09:57→20:30)
[2018-01-23] MEDS: LIDO:MAALOX 1:1 20 ML SINGLE DOSE. PO (09:57)
[2018-01-23 10:19] LABS: BASO # 0.1 x10^3/uL (0.0-0.2); BASO % 1 % (0-3); EOS # 0.2 x10^3/uL (0.0-0.7); EOS % 3 % (0-3); HEMATOCRIT 29.2 % (36.0-47.0); HEMOGLOBIN 9.2 g/dL (12.0-15.5); LYMPH # 2.2 x10^3/uL (1.0-4.8); LYMPH % 32 % (24-48); MEAN CORPUSCULAR HEMOGLOBIN 27 pg (25-35); MEAN CORPUSCULAR HGB CONC 32 g/dL (31-37); MEAN CORPUSCULAR VOLUME 85 fL (79-100); MONO % 15 % (0-9); NEUT # 3.4 x10^3uL (1.8-7.7); NEUT % 49 % (31-73); PLATELET COUNT 275 x10^3/uL (140-400); RED BLOOD COUNT 3.44 x10^6/uL (3.50-5.40); RED CELL DISTRIBUTION WIDTH 16.9 % (11.5-14.5); WHITE BLOOD COUNT 6.9 x10^3/uL (4.0-11.0)
[2018-01-23] MEDS: oxyCODONE IR 5 MG TABLET PO (11:21)
[2018-01-23] MEDS: hydrALAZINE 20 MG/ML VIAL. IVP ×3 (11:22→22:54)
[2018-01-23] MEDS: IV NORMAL SALINE 1000ML BAG 1,000 ML IV ×2 (14:16→22:14)
[2018-01-23] MEDS ORDERED: PROPOFOL 20 ML IV (14:27)
[2018-01-23] MEDS: PANTOPRAZOLE 40 MG TABLET.DR. PO (15:46)
[2018-01-23] MEDS: amLODIPine BESYLATE 10 MG TABLET PO (15:47)
[2018-01-23] MEDS: POTASSIUM CHLORIDE 20 MEQ TABLET.ER. PO (15:48)
[2018-01-23] MEDS: ACETAMINOPHEN 500 MG TABLET PO (15:49)
[2018-01-23] MEDS: cefTRIAXone IV Push 1 GM VIAL. IVP (20:21)
[2018-01-24] MEDS: fentaNYL PF VIAL 100 MCG/2 ML VIAL IV ×7 (02:07→22:12)
[2018-01-24] MEDS: oxyCODONE IR 5 MG TABLET PO (05:03)
[2018-01-24 06:08] LABS: ALBUMIN 2.8 g/dL (3.4-5.0); ANION GAP 6 (6-14); BLOOD UREA NITROGEN 15 mg/dL (7-20); CARBON DIOXIDE 29 mmol/L (21-32); CHLORIDE 103 mmol/L (98-107); CREATININE 1.9 mg/dL (0.6-1.0); GFR 26.9; GLUCOSE 103 mg/dL (70-99); PHOSPHORUS 3.3 mg/dL (2.6-4.7); POTASSIUM 3.7 mmol/L (3.5-5.1); SODIUM 138 mmol/L (136-145)
[2018-01-24 07:02] LABS: ADD MAN DIFF? NO; BASO # 0.1 x10^3/uL (0.0-0.2); BASO % 1 % (0-3); EOS # 0.2 x10^3/uL (0.0-0.7); EOS % 3 % (0-3); HEMATOCRIT 29.6 % (36.0-47.0); HEMOGLOBIN 9.6 g/dL (12.0-15.5); LYMPH # 2.3 x10^3/uL (1.0-4.8); LYMPH % 31 % (24-48); MEAN CORPUSCULAR HEMOGLOBIN 27 pg (25-35); MEAN CORPUSCULAR HGB CONC 33 g/dL (31-37); MEAN CORPUSCULAR VOLUME 84 fL (79-100); MONO # 0.8 x10^3/uL (0.0-1.1); MONO % 12 % (0-9); NEUT # 3.9 x10^3uL (1.8-7.7); NEUT % 54 % (31-73); PLATELET COUNT 268 x10^3/uL (140-400); RED BLOOD COUNT 3.55 x10^6/uL (3.50-5.40); RED CELL DISTRIBUTION WIDTH 16.7 % (11.5-14.5); WHITE BLOOD COUNT 7.3 x10^3/uL (4.0-11.0)
[2018-01-24] MEDS: PANTOPRAZOLE 40 MG TABLET.DR. PO ×2 (07:51→16:00)
[2018-01-24] MEDS: METOCLOPRAMIDE ORAL SOLN 10 MG/10 ML SOLUTION. PO ×4 (07:51→20:58)
[2018-01-24] MEDS: POTASSIUM CHLORIDE 20 MEQ TABLET.ER. PO (08:11)
[2018-01-24] MEDS: LACTOBACILLUS RHAMNOSUS GG 1 CAPSULE. PO ×2 (08:11→20:58)
[2018-01-24] MEDS: ALPRAZolam 0.25 MG TABLET PO ×2 (08:11→20:58)
[2018-01-24] MEDS: amLODIPine BESYLATE 10 MG TABLET PO (08:12)
[2018-01-24] MEDS ORDERED: LABETALOL 20 MG/4 ML DISP.SYRIN. IVP (09:15)
[2018-01-24 09:45] LABS: SEDIMENTATION RATE 32 (0-25)
[2018-01-24] MEDS: cloNIDine HCL 0.1 MG TABLET PO ×3 (09:53→20:58)
[2018-01-24] MEDS: cefTRIAXone IV Push 1 GM VIAL. IVP (20:58)
[2018-01-25] MEDS: fentaNYL PF VIAL 100 MCG/2 ML VIAL IV ×7 (02:02→21:05)
[2018-01-25] MEDS: cloNIDine HCL 0.1 MG TABLET PO ×3 (05:00→21:10)
[2018-01-25] MEDS: METOCLOPRAMIDE ORAL SOLN 10 MG/10 ML SOLUTION. PO ×4 (08:23→21:05)
[2018-01-25] MEDS: amLODIPine BESYLATE 10 MG TABLET PO (08:24)
[2018-01-25] MEDS: PANTOPRAZOLE 40 MG TABLET.DR. PO ×2 (08:24→17:56)
[2018-01-25] MEDS: LACTOBACILLUS RHAMNOSUS GG 1 CAPSULE. PO ×2 (08:24→21:06)
[2018-01-25] MEDS: POTASSIUM CHLORIDE 20 MEQ TABLET.ER. PO (08:24)
[2018-01-25] MEDS: ALPRAZolam 0.25 MG TABLET PO ×2 (09:26→21:38)
[2018-01-25] MEDS: oxyCODONE IR 5 MG TABLET PO (15:33)
[2018-01-25] MEDS: cefTRIAXone IV Push 1 GM VIAL. IVP (21:11)
[2018-01-26] MEDS: fentaNYL PF VIAL 100 MCG/2 ML VIAL IV ×7 (00:36→21:44)
[2018-01-26 03:10] LABS: MRSA BY PCR Positive (Negative)
[2018-01-26] MEDS: cloNIDine HCL 0.1 MG TABLET PO ×3 (06:07→21:42)
[2018-01-26] MEDS: oxyCODONE IR 5 MG TABLET PO ×2 (06:10→13:10)
[2018-01-26] MEDS: METOCLOPRAMIDE ORAL SOLN 10 MG/10 ML SOLUTION. PO ×4 (07:45→21:39)
[2018-01-26] MEDS: PANTOPRAZOLE 40 MG TABLET.DR. PO ×2 (07:45→16:23)
[2018-01-26] MEDS: ALPRAZolam 0.25 MG TABLET PO ×2 (08:18→21:42)
[2018-01-26] MEDS: LACTOBACILLUS RHAMNOSUS GG 1 CAPSULE. PO ×2 (08:18→21:39)
[2018-01-26] MEDS: POTASSIUM CHLORIDE 20 MEQ TABLET.ER. PO (08:19)
[2018-01-26] MEDS: amLODIPine BESYLATE 10 MG TABLET PO (08:19)
[2018-01-26] MEDS: cefTRIAXone IV Push 1 GM VIAL. IVP (21:47)
[2018-01-27] MEDS: oxyCODONE IR 5 MG TABLET PO ×3 (00:04→20:35)
[2018-01-27] MEDS: fentaNYL PF VIAL 100 MCG/2 ML VIAL IV ×6 (01:21→21:38)
[2018-01-27 04:42] LABS: ADD MAN DIFF? NO
[2018-01-27 04:45] LABS: BASO # 0.1 x10^3/uL (0.0-0.2); BASO % 1 % (0-3); EOS # 0.3 x10^3/uL (0.0-0.7); EOS % 5 % (0-3); HEMATOCRIT 28.6 % (36.0-47.0); HEMOGLOBIN 9.2 g/dL (12.0-15.5); LYMPH # 2.3 x10^3/uL (1.0-4.8); LYMPH % 36 % (24-48); MEAN CORPUSCULAR HEMOGLOBIN 27 pg (25-35); MEAN CORPUSCULAR HGB CONC 32 g/dL (31-37); MEAN CORPUSCULAR VOLUME 84 fL (79-100); MONO # 0.9 x10^3/uL (0.0-1.1); MONO % 15 % (0-9); NEUT # 2.7 x10^3uL (1.8-7.7); NEUT % 43 % (31-73); PLATELET COUNT 248 x10^3/uL (140-400); RED BLOOD COUNT 3.41 x10^6/uL (3.50-5.40); RED CELL DISTRIBUTION WIDTH 16.1 % (11.5-14.5); WHITE BLOOD COUNT 6.3 x10^3/uL (4.0-11.0)
[2018-01-27] MEDS: cloNIDine HCL 0.1 MG TABLET PO ×3 (05:03→20:35)
[2018-01-27 05:04] LABS: ANION GAP 6 (6-14); BLOOD UREA NITROGEN 20 mg/dL (7-20); CALCIUM 9.1 mg/dL (8.5-10.1); CARBON DIOXIDE 27 mmol/L (21-32); CHLORIDE 101 mmol/L (98-107); CREATININE 1.7 mg/dL (0.6-1.0); GFR 30.6; GLUCOSE 92 mg/dL (70-99); POTASSIUM 4.6 mmol/L (3.5-5.1); SODIUM 134 mmol/L (136-145)
[2018-01-27] MEDS: LACTOBACILLUS RHAMNOSUS GG 1 CAPSULE. PO ×2 (08:45→20:34)
[2018-01-27] MEDS: PANTOPRAZOLE 40 MG TABLET.DR. PO ×2 (08:45→16:01)
[2018-01-27] MEDS: amLODIPine BESYLATE 10 MG TABLET PO (08:46)
[2018-01-27] MEDS: POTASSIUM CHLORIDE 20 MEQ TABLET.ER. PO (08:46)
[2018-01-27] MEDS: METOCLOPRAMIDE ORAL SOLN 10 MG/10 ML SOLUTION. PO ×4 (08:46→20:34)
[2018-01-27] MEDS: ALPRAZolam 0.25 MG TABLET PO ×2 (10:03→21:42)
[2018-01-27] MEDS: cefTRIAXone IV Push 1 GM VIAL. IVP (20:35)
[2018-01-28] MEDS: fentaNYL PF VIAL 100 MCG/2 ML VIAL IV ×3 (00:45→10:31)
[2018-01-28] MEDS: oxyCODONE IR 5 MG TABLET PO ×3 (03:42→16:01)
[2018-01-28] MEDS: cloNIDine HCL 0.1 MG TABLET PO ×2 (05:16→16:01)
[2018-01-28 08:56] LABS: ADD MAN DIFF? NO
[2018-01-28] MEDS: LACTOBACILLUS RHAMNOSUS GG 1 CAPSULE. PO (09:00)
[2018-01-28 09:07] LABS: BASO # 0.1 x10^3/uL (0.0-0.2); BASO % 1 % (0-3); EOS # 0.3 x10^3/uL (0.0-0.7); EOS % 4 % (0-3); HEMATOCRIT 31.8 % (36.0-47.0); HEMOGLOBIN 10.3 g/dL (12.0-15.5); LYMPH # 2.5 x10^3/uL (1.0-4.8); LYMPH % 38 % (24-48); MEAN CORPUSCULAR HEMOGLOBIN 27 pg (25-35); MEAN CORPUSCULAR HGB CONC 32 g/dL (31-37); MEAN CORPUSCULAR VOLUME 83 fL (79-100); MONO % 15 % (0-9); NEUT # 2.7 x10^3uL (1.8-7.7); NEUT % 42 % (31-73); PLATELET COUNT 265 x10^3/uL (140-400); RED BLOOD COUNT 3.85 x10^6/uL (3.50-5.40); RED CELL DISTRIBUTION WIDTH 16.1 % (11.5-14.5); WHITE BLOOD COUNT 6.5 x10^3/uL (4.0-11.0)
[2018-01-28 09:21] LABS: ANION GAP 8 (6-14); BLOOD UREA NITROGEN 21 mg/dL (7-20); CALCIUM 9.3 mg/dL (8.5-10.1); CARBON DIOXIDE 27 mmol/L (21-32); CHLORIDE 100 mmol/L (98-107); CREATININE 1.8 mg/dL (0.6-1.0); GFR 28.6; GLUCOSE 87 mg/dL (70-99); POTASSIUM 4.4 mmol/L (3.5-5.1); SODIUM 135 mmol/L (136-145)
[2018-01-28] MEDS: METOCLOPRAMIDE ORAL SOLN 10 MG/10 ML SOLUTION. PO ×2 (09:41→13:49)
[2018-01-28] MEDS: PANTOPRAZOLE 40 MG TABLET.DR. PO (09:41)
[2018-01-28] MEDS: POTASSIUM CHLORIDE 20 MEQ TABLET.ER. PO (09:53)
[2018-01-28] MEDS: amLODIPine BESYLATE 10 MG TABLET PO (09:55)
== END 2018-01-28 15:40 | disposition home or self-care (01) | DRG 871 ==
LOC: ER 17:57 → 5 SOUTH 21:00
PROC: 0D748ZZ Dilation of Esophagogastric Junction, Via Natural or Artificial Opening Endoscopic (ICD-10-PCS; principal; 2018-01-23 14:30)
DX: A41.9 Sepsis, unspecified organism (principal); G93.40 Encephalopathy, unspecified; N17.9 Acute kidney failure, unspecified; N39.0 Urinary tract infection, site not specified; N18.4 Chronic kidney disease, stage 4 (severe); K22.10 Ulcer of esophagus without bleeding; F11.20 Opioid dependence, uncomplicated; F41.9 Anxiety disorder, unspecified; M19.90 Unspecified osteoarthritis, unspecified site; Z96.653 Presence of artificial knee joint, bilateral; E78.5 Hyperlipidemia, unspecified; I12.9 Hypertensive chronic kidney disease with stage 1 through stage 4 chronic kidney disease, or unspecified chronic kidney disease; F32.9 Major depressive disorder, single episode, unspecified; M79.7 Fibromyalgia; E87.6 Hypokalemia; F12.90 Cannabis use, unspecified, uncomplicated; K31.84 Gastroparesis; E83.52 Hypercalcemia; D64.9 Anemia, unspecified; I16.0 Hypertensive urgency; K21.0 Gastro-esophageal reflux disease with esophagitis; K22.2 Esophageal obstruction; E86.0 Dehydration; G89.4 Chronic pain syndrome; F10.20 Alcohol dependence, uncomplicated; K44.9 Diaphragmatic hernia without obstruction or gangrene; N31.9 Neuromuscular dysfunction of bladder, unspecified; Z79.899 Other long term (current) drug therapy; Z86.14 Personal history of Methicillin resistant Staphylococcus aureus infection; Z88.1 Allergy status to other antibiotic agents; Z88.8 Allergy status to other drugs, medicaments and biological substances; Z98.51 Tubal ligation status; Z82.49 Family history of ischemic heart disease and other diseases of the circulatory system; Z91.19 Patient's noncompliance with other medical treatment and regimen
CPT/HCPCS: 36415; 74176; 80048; 80069; 80076; 80307; 81001; 83605; 83690; 83735; 85025; 85651; 87040; 87086; 87186; 87641; 96365; 96368; 96375; 96376; 99285; 99285-25; C9113; G0480; J0360; J0690; J0696; J2405; J2704; J3010; J7030; J7120; J8597; S0028

== ENCOUNTER 2018-01-31 22:52 | Inpatient (IN) | payer MEDICARE ==
[2018-02-01 00:41] LABS: HCO3 ABG 24 mmol/L (21-28); PCO2 ABG 37 mmHg (35-46); PH ABG 7.42 (7.35-7.45); PO2 ABG 83 mmHg (65-108)
[2018-02-01 00:42] LABS: SAT O2 ABG 96 % (92-99)
[2018-02-01 01:15] LABS: ADD MAN DIFF? NO
[2018-02-01 01:21] LABS: BASO # 0.1 x10^3/uL (0.0-0.2); BASO % 1 % (0-3); EOS # 0.3 x10^3/uL (0.0-0.7); EOS % 2 % (0-3); HEMATOCRIT 26.6 % (36.0-47.0); HEMOGLOBIN 8.6 g/dL (12.0-15.5); LYMPH # 1.5 x10^3/uL (1.0-4.8); LYMPH % 12 % (24-48); MEAN CORPUSCULAR HEMOGLOBIN 27 pg (25-35); MEAN CORPUSCULAR HGB CONC 32 g/dL (31-37); MEAN CORPUSCULAR VOLUME 82 fL (79-100); MONO # 0.9 x10^3/uL (0.0-1.1); MONO % 7 % (0-9); NEUT # 10.1 x10^3uL (1.8-7.7); NEUT % 78 % (31-73); PLATELET COUNT 282 x10^3/uL (140-400); RED BLOOD COUNT 3.24 x10^6/uL (3.50-5.40); RED CELL DISTRIBUTION WIDTH 16.4 % (11.5-14.5)
[2018-02-01 01:31] LABS: PROTHROMBIN TIME PATIENT 12.8 SEC (11.7-14.0)
[2018-02-01 01:32] LABS: PARTIAL THROMBOPLASTIN TIME 38 SEC (24-38)
[2018-02-01 01:34] LABS: ANION GAP 9 (6-14); BLOOD UREA NITROGEN 29 mg/dL (7-20); BUN/CREATININE RATIO 11 (6-20); CALCIUM 9.2 mg/dL (8.5-10.1); CARBON DIOXIDE 27 mmol/L (21-32); CHLORIDE 102 mmol/L (98-107); CREATININE 2.7 mg/dL (0.6-1.0); GFR 17.9; GLUCOSE 93 mg/dL (70-99); POTASSIUM 4.1 mmol/L (3.5-5.1); SODIUM 138 mmol/L (136-145)
[2018-02-01 01:41] LABS: ALBUMIN 2.5 g/dL (3.4-5.0); ALBUMIN/GLOBULIN RATIO 0.7 (1.0-1.7); ALK PHOS 79 U/L (46-116); ALT (SGPT) 13 U/L (14-59); AST (SGOT) 16 U/L (15-37); CREATINE KINASE 52 U/L (26-192); MAGNESIUM 2.1 mg/dL (1.8-2.4); TOTAL BILIRUBIN 0.2 mg/dL (0.2-1.0); TOTAL PROTEIN 6.2 g/dL (6.4-8.2)
[2018-02-01 01:48] LABS: CKMB MASS 0.9 ng/mL (0.0-3.6); CREATINE KINASE 51 U/L (26-192)
[2018-02-01 01:48] LABS: NT-PRO BNP 2477 pg/mL (0-124)
[2018-02-01 01:50] LABS: TROPONINI < 0.017 ng/mL (0.000-0.055)
[2018-02-01 01:54] LABS: AMMONIA < 10 mcmol/L (11-34)
[2018-02-01] MEDS: IPRATRPIUM/ALBUTEROL 0.5/2.5MG 3 ML NEBU. NEB (03:15)
[2018-02-01 03:48] LABS: BARBITURATES NEG (NEG); BENZODIAZEPINES POS (NEG); BILIRUBIN,URINE NEGATIVE (NEG); CANNABINOIDS NEG (NEG); CLARITY,URINE CLEAR; COCAINE NEG (NEG); COLOR,URINE YELLOW; GLUCOSE,URINE NEGATIVE (NEG); METHADONE NEG (NEG); NITRITE,URINE NEGATIVE (NEG); OPIATES POS (NEG); PH,URINE 6.5; PHENCYCLIDINE NEG (NEG); PROTEIN,URINE 100 mg/dL (NEG-TRACE); UROBILINOGEN,URINE 0.2 mg/dL (0.2 mg/dL)
[2018-02-01 04:24] LABS: BACTERIA,URINE MANY /HPF (0-FEW); SQUAMOUS EPITHELIAL CELL,UR FEW /LPF; WBC,URINE TNTC /HPF (0-4)
[2018-02-01 04:29] LABS: AMPHETAMINE/METHAMPHETAMINE NEG (NEG); ETHANOL, URINE NEG (NEG)
[2018-02-01] MEDS ORDERED: ONDANSETRON PF 4 MG/2 ML VIAL. IV (05:15)
[2018-02-01] MEDS ORDERED: ALBUTEROL SULFATE 2.5 MG/3 ML NEBU. NEB (05:30)
[2018-02-01] MEDS: IV NORMAL SALINE 1000ML BAG 1,000 ML IV (05:35)
[2018-02-01] MEDS ORDERED: MAGNESIUM SULFATE 2GM 50 ML IV (12:00)
[2018-02-01 12:41] LABS: RETIC COUNT 0.4 % (0.5-2.5)
[2018-02-01 12:46] LABS: % SAT IRON 3 % (15-34); IRON,SERUM 9 ug/dL (50-170)
[2018-02-01 13:01] LABS: FERRITIN 86 ng/mL (8-252)
[2018-02-01] MEDS: ALPRAZolam 0.5 MG TABLET PO (13:32)
[2018-02-01] MEDS: oxyCODONE IR 5 MG TABLET PO ×2 (14:10→23:17)
[2018-02-02] MEDS: ALPRAZolam 0.5 MG TABLET PO ×2 (04:25→16:32)
[2018-02-02 04:32] LABS: ADD MAN DIFF? NO
[2018-02-02 04:40] LABS: BASO # 0.1 x10^3/uL (0.0-0.2); BASO % 1 % (0-3); EOS # 0.2 x10^3/uL (0.0-0.7); EOS % 3 % (0-3); HEMATOCRIT 28.2 % (36.0-47.0); HEMOGLOBIN 9.2 g/dL (12.0-15.5); LYMPH # 2.2 x10^3/uL (1.0-4.8); LYMPH % 28 % (24-48); MEAN CORPUSCULAR HEMOGLOBIN 27 pg (25-35); MEAN CORPUSCULAR HGB CONC 33 g/dL (31-37); MEAN CORPUSCULAR VOLUME 82 fL (79-100); MONO # 0.9 x10^3/uL (0.0-1.1); MONO % 12 % (0-9); NEUT # 4.4 x10^3uL (1.8-7.7); NEUT % 57 % (31-73); PLATELET COUNT 325 x10^3/uL (140-400); RED BLOOD COUNT 3.44 x10^6/uL (3.50-5.40); RED CELL DISTRIBUTION WIDTH 16.3 % (11.5-14.5); WHITE BLOOD COUNT 7.7 x10^3/uL (4.0-11.0)
[2018-02-02 05:19] LABS: ANION GAP 13 (6-14); BLOOD UREA NITROGEN 19 mg/dL (7-20); CALCIUM 9.5 mg/dL (8.5-10.1); CARBON DIOXIDE 22 mmol/L (21-32); CHLORIDE 106 mmol/L (98-107); CREATININE 2.2 mg/dL (0.6-1.0); GFR 22.7; GLUCOSE 89 mg/dL (70-99); POTASSIUM 4.5 mmol/L (3.5-5.1); SODIUM 141 mmol/L (136-145)
[2018-02-02 05:23] LABS: MAGNESIUM 2.1 mg/dL (1.8-2.4)
[2018-02-02] MEDS: oxyCODONE IR 5 MG TABLET PO ×4 (06:17→19:47)
[2018-02-02] MEDS: cefTRIAXone IV Push 1 GM VIAL. IVP (06:18)
[2018-02-02 09:12] LABS: ALBUMIN 2.5 g/dL (3.4-5.0); ANION GAP 11 (6-14); BLOOD UREA NITROGEN 19 mg/dL (7-20); CALCIUM 9.2 mg/dL (8.5-10.1); CARBON DIOXIDE 23 mmol/L (21-32); CHLORIDE 106 mmol/L (98-107); CREATININE 2.3 mg/dL (0.6-1.0); GFR 21.6; GLUCOSE 90 mg/dL (70-99); PHOSPHORUS 4.2 mg/dL (2.6-4.7); POTASSIUM 4.2 mmol/L (3.5-5.1); SODIUM 140 mmol/L (136-145)
[2018-02-02 09:52] LABS: PREALBUMIN 14.5 mg/dL (16.0-42.0)
[2018-02-02] MEDS: IRON SUCROSE COMPLEX 200 MG in IV NORMAL SALINE 100ML 100 ML IV (11:17)
[2018-02-02] MEDS: IV 1/2 NORMAL SALINE 1,000 ML IV ×2 (11:18→23:20)
[2018-02-02] MEDS: LACTOBACILLUS RHAMNOSUS GG 1 CAPSULE. PO (20:52)
[2018-02-03] MEDS: ALPRAZolam 0.5 MG TABLET PO (02:02)
[2018-02-03] MEDS: oxyCODONE IR 5 MG TABLET PO ×2 (02:03→08:22)
[2018-02-03] MEDS: cefTRIAXone IV Push 1 GM VIAL. IVP (05:41)
[2018-02-03 05:49] LABS: ADD MAN DIFF? NO
[2018-02-03 05:51] LABS: BASO # 0.1 x10^3/uL (0.0-0.2); BASO % 1 % (0-3); EOS # 0.3 x10^3/uL (0.0-0.7); EOS % 4 % (0-3); HEMATOCRIT 26.9 % (36.0-47.0); HEMOGLOBIN 8.9 g/dL (12.0-15.5); LYMPH # 2.1 x10^3/uL (1.0-4.8); LYMPH % 29 % (24-48); MEAN CORPUSCULAR HEMOGLOBIN 27 pg (25-35); MEAN CORPUSCULAR HGB CONC 33 g/dL (31-37); MEAN CORPUSCULAR VOLUME 81 fL (79-100); MONO % 14 % (0-9); NEUT # 3.7 x10^3uL (1.8-7.7); NEUT % 52 % (31-73); PLATELET COUNT 322 x10^3/uL (140-400); RED BLOOD COUNT 3.32 x10^6/uL (3.50-5.40); WHITE BLOOD COUNT 7.1 x10^3/uL (4.0-11.0)
[2018-02-03 06:34] LABS: ALBUMIN 2.3 g/dL (3.4-5.0); ANION GAP 8 (6-14); BLOOD UREA NITROGEN 13 mg/dL (7-20); CALCIUM 9.6 mg/dL (8.5-10.1); CARBON DIOXIDE 26 mmol/L (21-32); CHLORIDE 104 mmol/L (98-107); GFR 25.3; GLUCOSE 91 mg/dL (70-99); MAGNESIUM 1.9 mg/dL (1.8-2.4); PHOSPHORUS 4.4 mg/dL (2.6-4.7); POTASSIUM 4.2 mmol/L (3.5-5.1); SODIUM 138 mmol/L (136-145)
[2018-02-03] MEDS: LACTOBACILLUS RHAMNOSUS GG 1 CAPSULE. PO (08:22)
[2018-02-03] MEDS: IRON SUCROSE COMPLEX 200 MG in IV NORMAL SALINE 100ML 100 ML IV (08:23)
[2018-02-03] MEDS ORDERED: HYDROcodone/APAP 10/325 1 TAB TABLET PO (11:30)
[2018-02-03] MEDS: fentaNYL PF VIAL 100 MCG/2 ML VIAL IV (11:35)
[2018-02-03] MEDS: IV 1/2 NORMAL SALINE 1,000 ML IV (12:40)
== END 2018-02-03 16:10 | disposition home or self-care (01) | DRG 871 ==
LOC: ER 22:52 → 5 SOUTH 02-01 05:16
DX: A41.9 Sepsis, unspecified organism (principal); G93.41 Metabolic encephalopathy; N17.9 Acute kidney failure, unspecified; N39.0 Urinary tract infection, site not specified; K22.10 Ulcer of esophagus without bleeding; N18.4 Chronic kidney disease, stage 4 (severe); F41.9 Anxiety disorder, unspecified; M19.90 Unspecified osteoarthritis, unspecified site; K21.9 Gastro-esophageal reflux disease without esophagitis; M79.7 Fibromyalgia; E78.00 Pure hypercholesterolemia, unspecified; Z96.652 Presence of left artificial knee joint; J04.0 Acute laryngitis; D64.9 Anemia, unspecified; I12.9 Hypertensive chronic kidney disease with stage 1 through stage 4 chronic kidney disease, or unspecified chronic kidney disease; F32.9 Major depressive disorder, single episode, unspecified; E78.5 Hyperlipidemia, unspecified; G89.29 Other chronic pain; F17.200 Nicotine dependence, unspecified, uncomplicated; F10.20 Alcohol dependence, uncomplicated; M47.816 Spondylosis without myelopathy or radiculopathy, lumbar region; G62.9 Polyneuropathy, unspecified; M21.372 Foot drop, left foot; R09.02 Hypoxemia; R13.10 Dysphagia, unspecified; Z86.14 Personal history of Methicillin resistant Staphylococcus aureus infection; Z76.5 Malingerer [conscious simulation]; Z87.19 Personal history of other diseases of the digestive system; Z91.19 Patient's noncompliance with other medical treatment and regimen; Z88.8 Allergy status to other drugs, medicaments and biological substances; Z82.49 Family history of ischemic heart disease and other diseases of the circulatory system
CPT/HCPCS: 36415; 36600; 51701; 70450; 71045; 80048; 80053; 80069; 80307; 81001; 82140; 82550; 82553; 82728; 82805; 83540; 83550; 83735; 83880; 84134; 84484; 85025; 85045; 85610; 85730; 87086; 93005; 94640; 94760; 96365; 97162-GP; 97166-GO; 97530-GP; 99285; 99285-25; J0690; J0696; J1756; J3010; J7030; J7620

== ENCOUNTER 2018-02-10 21:28 | Emergency (ER) | payer MEDICARE ==
[~2018-02-10] VITALS: Ht 162.6 cm; Wt 66.7 kg
[~2018-02-10 21:28] MED LIST changes: +ACET-704 PO; +ACET325T16 PO; +ACID1TAB14 PO; +ALPR0.254 PO; +ALPR0.5T PO; +ALPR0.5T6 PO; +ALPR1TAB6 PO; +AMLO10TA2 PO; +AMLO5TAB2 PO; +AMLO5TAB4 PO; +ASPI-630 PO; +ATEN50TA PO; +BUTA1TAB23 PO; +CEFP100T PO; +CEPH-263 PO; +CEPH-264 PO; +CHOL4POW3 PO; +CIPR250T30 PO; +CIPR500T94 PO; +CLON0.1T PO; +CLON0.5T PO; +CLON1PAT2; +DICY10CA53 PO; +DOXY100T PO; +DULO30CA2; +DULO30CA2 PO; +DULO60CA6 PO; +ESCITALOPRAM OX10 MG PO; +ESOM20CA30 PO; +ESOM40CA; +ESOM40CA PO; +FENT1PAT91 TP; +FLUC100T7 PO; +FURO-68 PO; +Fluconazole PO; +HYDR-2867 PO; +HYDR-971 PO; +HYDR25TA9 PO; +HYDR2TAB31 PO; +HYDR4TAB45; +HYDR4TAB45 PO; +IBUP-1060 PO; -IOHEXOL 180 MG/ML 10 ML VIAL.; +LACT1CAP19 PO; +LEVO75TA PO; +LIDO700A4 TP; +LINE600T PO; +LIPA1CAP12 PO; +LISI10TA2 PO; +LOPE2CAP PO; +LORA-434 PO; +LORA2TAB PO; +LORA2TAB89 PO; +METO10TA81 PO; +METO5VIA4 PO; +METR500T PO; +MORP30TA83 PO; +NYST15CR2 TP; +ONDA4TAB10 PO; +ONDA4TAB10 SL; +OSEL30CA PO; +OXYB5TAB7 PO; +OXYC-327 PO; +OXYC-328 PO; +OXYC-411 PO; +OXYC10TA PO; +OXYC10TA45; +OXYC15TA60 PO; +OXYC1TAB7 PO; +OXYC5TAB95 PO; +PARO20TA3 PO; +PARO20TA99 PO; +SILV400C TP; +SIMV20TA3 PO; +SULF-143 PO; +SULF1TAB24 PO; +Sulfamethoxazole/Trimethoprim PO; +TRAZ-85 PO; +VANC125C2 PO; +VANC125S PO; +VANC500V PO; +VITS56.7 TP; +Vancomycin Hcl PO; +ZOLP5TAB PO; -methylPREDNISolone ACETATE 40 MG/ML VIAL.; -methylPREDNISolone ACETATE 80 MG/ML VIAL.
[2018-02-10] MEDS ORDERED: ONDANSETRON PF 4 MG/2 ML VIAL. IV ONE (22:30)
[2018-02-10] MEDS ORDERED: METOPROLOL TARTRATE 5 MG/5 ML VIAL. IVP ONE (23:15)
[2018-02-10 23:25] LABS: BASO # 0.1 x10^3/uL (0.0-0.2); BASO % 1 % (0-3); EOS % 0 % (0-3); HEMATOCRIT 34.9 % (36.0-47.0); HEMOGLOBIN 11.4 g/dL (12.0-15.5); LYMPH # 1.1 x10^3/uL (1.0-4.8); LYMPH % 11 % (24-48); MEAN CORPUSCULAR HEMOGLOBIN 27 pg (25-35); MEAN CORPUSCULAR HGB CONC 33 g/dL (31-37); MEAN CORPUSCULAR VOLUME 82 fL (79-100); MONO # 0.4 x10^3/uL (0.0-1.1); MONO % 4 % (0-9); NEUT # 8.1 x10^3uL (1.8-7.7); NEUT % 84 % (31-73); PLATELET COUNT 542 x10^3/uL (140-400); RED BLOOD COUNT 4.28 x10^6/uL (3.50-5.40); WHITE BLOOD COUNT 9.6 x10^3/uL (4.0-11.0)
[2018-02-10] MEDS ORDERED: LIDO:MAALOX 1:1 20 ML SINGLE DOSE. SWSW ONE (23:30)
[2018-02-10 23:40] LABS: CALCIUM 10.1 mg/dL (8.5-10.1); CREATININE 2.9 mg/dL (0.6-1.0); GFR 16.5; POTASSIUM 3.7 mmol/L (3.5-5.1)
[2018-02-10 23:45] LABS: ALBUMIN 3.5 g/dL (3.4-5.0); ALBUMIN/GLOBULIN RATIO 0.7 (1.0-1.7); TOTAL BILIRUBIN 0.2 mg/dL (0.2-1.0); TOTAL PROTEIN 8.5 g/dL (6.4-8.2)
[2018-02-10] MEDS ORDERED: ONDA4TAB10 SL (23:56)
--- NOTE | 2018-02-10 23:57 | PHYS DOC ---
Past Medical History Past Medical History: Alcoholism, Anemia, Angina, Anxiety, Arthritis, Fibromyalgia, GERD, High Cholesterol, MRSA Additional Past Medical Histor: MURMUR, ESOPHAGITIS, ESOPHAGEAL ULCERS Past Surgical History: Knee Replacement Additional Past Surgical Histo: BACK SX Alcohol Use: Sober Drug Use: None Adult General Chief Complaint Chief Complaint: NAUSEA/VOMITING/DIARRHA HPI HPI Patient is a 62 year old [f__sex] who presents with [] Review of Systems Review of Systems Constitutional: Denies fever or chills [] Eyes: Denies change in visual acuity, redness, or eye pain [] HENT: Denies nasal congestion or sore throat [] Respiratory: Denies cough or shortness of breath [] Cardiovascular: No additional information not addressed in HPI [] GI: Denies abdominal pain, nausea, vomiting, bloody stools or diarrhea [] : Denies dysuria or hematuria [] Musculoskeletal: Denies back pain or joint pain [] Integument: Denies rash or skin lesions [] Neurologic: Denies headache, focal weakness or sensory changes [] Endocrine: Denies polyuria or polydipsia [] All other systems were reviewed and found to be within normal limits, except as documented in this note. Current Medications Current Medications Current Medications Medications (Trade) Dose Ordered Sig/Taz Start Time Stop Time Status Last Admin Dose Admin Metoprolol Tartrate (Lopressor Vial) 5 mg 1X ONCE 02/10/18 23:15 02/10/18 23:16 UNV 02/10/18 23:29 5 MG Multi-Ingredient Mouthwash/Gargle (Gi Cocktail) 20 ml 1X ONCE 02/10/18 23:30 02/10/18 23:31 UNV 02/10/18 23:30 20 ML Ondansetron HCl (Zofran) 4 mg 1X ONCE 02/10/18 22:30 02/10/18 22:31 DC 02/10/18 22:45 4 MG Allergies Allergies Allergies Coded Allergies Type Severity Reaction Last Updated Verified levofloxacin Allergy Intermediate 01/23/18 Yes I S O L A T I O N *CONTACT* Allergy Unknown 01/23/18 Yes diphenhydramine HCl Adverse Reaction Intermediate "Jittery on the inside" 01/23 Yes Physical Exam Physical Exam Constitutional: Well developed, well nourished, no acute distress, non-toxic appearance. [] HENT: Normocephalic, atraumatic, bilateral external ears normal, oropharynx moist, no oral exudates, nose normal. [] Eyes: PERRLA, EOMI, conjunctiva normal, no discharge. [] Neck: Normal range of motion, no tenderness, supple, no stridor. [] Cardiovascular:Heart rate regular rhythm, no murmur [] Lungs & Thorax: Bilateral breath sounds clear to auscultation [] Abdomen: Bowel sounds normal, soft, no tenderness, no masses, no pulsatile masses. [] Skin: Warm, dry, no erythema, no rash. [] Back: No tenderness, no CVA tenderness. [] Extremities: No tenderness, no cyanosis, no clubbing, ROM intact, no edema. [] Neurologic: Alert and oriented X 3, normal motor function, normal sensory function, no focal deficits noted. [] Psychologic: Affect normal, judgement normal, mood normal. [] Current Patient Data Vital Signs Vital Signs Date Time Temp Pulse Resp B/P (MAP) Pulse Ox O2 Delivery O2 Flow Rate FiO2 02/10/18 23:29 75 229/109 02/10/18 21:30 97.5 20 99 Room Air 97.5 Lab Values Laboratory Tests Test 02/10/18 23:10 White Blood Count 9.6 x10^3/uL (4.0-11.0) Red Blood Count 4.28 x10^6/uL (3.50-5.40) Hemoglobin 11.4 g/dL (12.0-15.5) L Hematocrit 34.9 % (36.0-47.0) L Mean Corpuscular Volume 82 fL (79-100) Mean Corpuscular Hemoglobin 27 pg (25-35) Mean Corpuscular Hemoglobin Concent 33 g/dL (31-37) Red Cell Distribution Width 18.0 % (11.5-14.5) H Platelet Count 542 x10^3/uL (140-400) H Neutrophils (%) (Auto) 84 % (31-73) H Lymphocytes (%) (Auto) 11 % (24-48) L Monocytes (%) (Auto) 4 % (0-9) Eosinophils (%) (Auto) 0 % (0-3) Basophils (%) (Auto) 1 % (0-3) Neutrophils # (Auto) 8.1 x10^3uL (1.8-7.7) H Lymphocytes # (Auto) 1.1 x10^3/uL (1.0-4.8) Monocytes # (Auto) 0.4 x10^3/uL (0.0-1.1) Eosinophils # (Auto) 0.0 x10^3/uL (0.0-0.7) Basophils # (Auto) 0.1 x10^3/uL (0.0-0.2) Sodium Level 136 mmol/L (136-145) Potassium Level 3.7 mmol/L (3.5-5.1) Chloride Level 100 mmol/L (98-107) Carbon Dioxide Level 26 mmol/L (21-32) Anion Gap 10 (6-14) Blood Urea Nitrogen 19 mg/dL (7-20) Creatinine 2.9 mg/dL (0.6-1.0) H Estimated GFR (Cockcroft-Gault) 16.5 BUN/Creatinine Ratio 7 (6-20) Glucose Level 137 mg/dL (70-99) H Calcium Level 10.1 mg/dL (8.5-10.1) Total Bilirubin 0.2 mg/dL (0.2-1.0) Aspartate Amino Transferase (AST) 18 U/L (15-37) Alanine Aminotransferase (ALT) 15 U/L (14-59) Alkaline Phosphatase 84 U/L (46-116) Total Protein 8.5 g/dL (6.4-8.2) H Albumin 3.5 g/dL (3.4-5.0) Albumin/Globulin Ratio 0.7 (1.0-1.7) L Laboratory Tests 02/10/18 23:10 Laboratory Tests 02/10/18 23:10 EKG EKG [] Radiology/Procedures Radiology/Procedures [] Course & Med Decision Making Course & Med Decision Making Pertinent Labs and Imaging studies reviewed. (See chart for details) [] Dragon Disclaimer Dragon Disclaimer This electronic medical record was generated, in whole or in part, using a voice recognition dictation system. Departure Departure Impression: Primary Impression: Nausea & vomiting Disposition: 01 HOME, SELF-CARE Condition: STABLE Referrals: NO PCP (PCP) Patient Instructions: Nausea, Adult Additional Instructions: You may use the medication as prescribed. Follow-up with your primary care provider for recheck in 3 days or return to the emergency department if worsening. Increase fluids and rest. Scripts Ondansetron (ZOFRAN ODT) 4 Mg Tab.rapdis 1 TAB SL Q8HRS, #10 TAB Prov: JONI SLAUGHTER APRN 02/10/18 JONI SLAUGHTER APRN Feb 10, 2018 23:57
[2018-02-11 00:10] VITALS: BP 201/112
[2018-02-11] MEDS ORDERED: ONDANSETRON ODT 4 MG TAB.RAPDIS. PO ONE (00:15)
== END 2018-02-11 00:22 | disposition home or self-care (01) ==
LOC: ER 21:28
DX: R11.2 Nausea with vomiting, unspecified (principal); R19.7 Diarrhea, unspecified; E78.00 Pure hypercholesterolemia, unspecified; K21.9 Gastro-esophageal reflux disease without esophagitis; Z86.14 Personal history of Methicillin resistant Staphylococcus aureus infection; Z88.1 Allergy status to other antibiotic agents; Z88.5 Allergy status to narcotic agent; Z91.041 Radiographic dye allergy status
CPT/HCPCS: 36415; 80053; 85025; 96374; 96375; 99284; J2405; J3490; Q0162

== ENCOUNTER 2018-02-17 18:13 | Inpatient (IN) | payer MEDICARE ==
[~2018-02-17] VITALS: Ht 162.6 cm; Wt 61.7 kg
[2018-02-17] MEDS ORDERED: IV NORMAL SALINE 1000ML BAG 1,000 ML IV SCH (19:00)
[2018-02-17 19:24] LABS: BASO % 1 % (0-3); EOS # 0.1 x10^3/uL (0.0-0.7); EOS % 1 % (0-3); HEMATOCRIT 39.4 % (36.0-47.0); HEMOGLOBIN 12.9 g/dL (12.0-15.5); LYMPH % 38 % (24-48); MEAN CORPUSCULAR HEMOGLOBIN 27 pg (25-35); MEAN CORPUSCULAR HGB CONC 33 g/dL (31-37); MEAN CORPUSCULAR VOLUME 82 fL (79-100); MONO # 0.9 x10^3/uL (0.0-1.1); MONO % 11 % (0-9); NEUT % 50 % (31-73); PLATELET COUNT 467 x10^3/uL (140-400); RED CELL DISTRIBUTION WIDTH 18.1 % (11.5-14.5)
[2018-02-17 19:39] LABS: ALBUMIN 3.6 g/dL (3.4-5.0); ALBUMIN/GLOBULIN RATIO 0.7 (1.0-1.7); CALCIUM 10.5 mg/dL (8.5-10.1); GFR 15.9; MAGNESIUM 1.8 mg/dL (1.8-2.4); TOTAL BILIRUBIN 0.2 mg/dL (0.2-1.0); TOTAL PROTEIN 8.5 g/dL (6.4-8.2)
[2018-02-17 19:43] LABS: POTASSIUM 2.9 mmol/L (3.5-5.1)
--- NOTE | 2018-02-17 19:49 | PHYS DOC ---
Past Medical History Past Medical History: Arthritis, Hypertension, Renal Disease, Other Additional Past Medical Histor: FIBROMIALGIA Past Surgical History: Knee Replacement, Other Additional Past Surgical Histo: BACK AND FEET SURGERY Alcohol Use: None Drug Use: None Adult General Chief Complaint Chief Complaint: NAUSEA/VOMITING/DIARRHA HPI HPI Patient is a 62 year old female who presents with nausea vomiting and diarrhea. Patient was most recently admitted on January 31 through the for altered mental status UTI chronic kidney disease. Patient was seen again in the emergency department on February 10 for nausea vomiting and diarrhea and was evaluated and discharged on Zofran at that time. Patient returns today stating that she's had continued nausea vomiting and diarrhea for the past week and feels no better. Patient has been admitted 10 times this year for somewhat similar diagnosis. She has a past medical history significant for Drug seeking behavior, alcoholism , anemia, anxiety,arthritis, fibromyalgia, GERD, hypertension, hyperlipidemia, cardiac murmur, esophagitis, esophageal ulcers, back surgery, knee replacement. 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 This is a 62-year-old female, known to me. She was admitted on 02/01/2018 with weakness, altered mental status. The patient was hospitalized several times this year. The patient with known chronic ethanol use, anxiety, osteoarthritis, status post left total knee arthroplasty in the past, multiple lumbar spine surgeries, chronic back pain, also neck pain, hypertension, narcotic seeking, MRSA urinary tract infection, C. diff colitis, gastritis, renal insufficiency, foot surgery, right knee arthroscopic debridement in the past. The patient had lumbar epidural steroid injections, also had lumbar corset and right knee brace. SHE IS KNOWN ALLERGIC TO BENADRYL, LEVAQUIN, AND MORPHINE. Since admission, she is being treated for urinary tract infection and renal insufficiency. She has an indwelling Drummond catheter in place. Family history of coronary artery disease. She still smokes and drinks. The patient lives with her family, has two steps to enter the house. Review of Systems Review of Systems Constitutional: Denies fever or chills, positive for weakness[] Eyes: Denies change in visual acuity, redness, or eye pain [] HENT: Denies nasal congestion or sore throat [] Respiratory: Denies cough or shortness of breath [] Cardiovascular: No additional information not addressed in HPI [] GI: abdominal pain, nausea, vomiting, diarrhea [] : Denies dysuria or hematuria [] Musculoskeletal: Denies back pain or joint pain [] Integument: Denies rash or skin lesions [] Neurologic: Denies headache, focal weakness or sensory changes [] Endocrine: Denies polyuria or polydipsia [] All other systems were reviewed and found to be within normal limits, except as documented in this note. Current Medications Current Medications Current Medications Medications (Trade) Dose Ordered Sig/Taz Start Time Stop Time Status Last Admin Dose Admin Alprazolam (Xanax) 1 mg PRN TID PRN 02/17/18 21:45 Duloxetine HCl (Cymbalta) 90 mg DAILY 02/18/18 09:00 Lidocaine (Lidoderm) 1 patch DAILY 02/18/18 09:00 Magnesium Sulfate 50 ml @ 25 mls/hr 1X ONCE 02/17/18 22:00 02/17/18 23:59 Ondansetron HCl (Zofran Odt) 4 mg Q8HRS 02/17/18 22:00 Oxycodone HCl (Roxicodone) 10 mg PRN Q6HRS PRN 02/17/18 22:00 Oxycodone/ Acetaminophen (Percocet 7.5/ 325) 1 tab QID 02/18/18 09:00 Pantoprazole Sodium (Protonix) 40 mg DAILYAC 02/18/18 07:30 Potassium Chloride/Dextrose/ Sod Cl 1,000 ml @ 100 mls/hr Q10H 02/17/18 22:00 Potassium Chloride (Klor-Con) 20 meq DAILY 02/18/18 09:00 Sodium Chloride 1,000 ml @ 150 mls/hr Q6H40M 02/17/18 19:00 02/17/18 21:46 DC 02/17/18 19:00 150 MLS/HR Allergies Allergies Allergies Coded Allergies Type Severity Reaction Last Updated Verified levofloxacin Allergy Intermediate 01/23/18 Yes I S O L A T I O N *CONTACT* Allergy Unknown 01/23/18 Yes diphenhydramine HCl Adverse Reaction Intermediate "Jittery on the inside" 01/23 Yes Physical Exam Physical Exam Constitutional: Well developed, well nourished, lethargic, non-toxic appearance. [] HENT: Normocephalic, atraumatic, bilateral external ears normal, oropharynx moist, no oral exudates, nose normal. [] Eyes: PERRLA, EOMI, conjunctiva normal, no discharge. [] Neck: Normal range of motion, no tenderness, supple, no stridor. [] Cardiovascular:Heart rate regular rhythm, no murmur [] Lungs & Thorax: Bilateral breath sounds clear to auscultation [] Abdomen: Bowel sounds normal, soft, no tenderness, no masses, no pulsatile masses. [] Skin: Warm, dry, no erythema, no rash. [] Back: No tenderness, no CVA tenderness. [] Extremities: No tenderness, no cyanosis, no clubbing, ROM intact, no edema. [] Neurologic: Alert and oriented X 3, normal motor function, normal sensory function, no focal deficits noted. [] Psychologic: Affect normal, judgement normal, mood normal. [] Current Patient Data Vital Signs Vital Signs Date Time Temp Pulse Resp B/P (MAP) Pulse Ox O2 Delivery O2 Flow Rate FiO2 02/17/18 18:44 98.6 104 16 191/108 (135) 93 Room Air 98.6 Lab Values Laboratory Tests Test 02/17/18 19:05 02/17/18 20:13 White Blood Count 8.0 x10^3/uL (4.0-11.0) Red Blood Count 4.80 x10^6/uL (3.50-5.40) Hemoglobin 12.9 g/dL (12.0-15.5) Hematocrit 39.4 % (36.0-47.0) Mean Corpuscular Volume 82 fL (79-100) Mean Corpuscular Hemoglobin 27 pg (25-35) Mean Corpuscular Hemoglobin Concent 33 g/dL (31-37) Red Cell Distribution Width 18.1 % (11.5-14.5) H Platelet Count 467 x10^3/uL (140-400) H Neutrophils (%) (Auto) 50 % (31-73) Lymphocytes (%) (Auto) 38 % (24-48) Monocytes (%) (Auto) 11 % (0-9) H Eosinophils (%) (Auto) 1 % (0-3) Basophils (%) (Auto) 1 % (0-3) Neutrophils # (Auto) 4.0 x10^3uL (1.8-7.7) Lymphocytes # (Auto) 3.0 x10^3/uL (1.0-4.8) Monocytes # (Auto) 0.9 x10^3/uL (0.0-1.1) Eosinophils # (Auto) 0.1 x10^3/uL (0.0-0.7) Basophils # (Auto) 0.0 x10^3/uL (0.0-0.2) Sodium Level 137 mmol/L (136-145) Potassium Level 2.9 mmol/L (3.5-5.1) *L Chloride Level 95 mmol/L (98-107) L Carbon Dioxide Level 33 mmol/L (21-32) H Anion Gap 9 (6-14) Blood Urea Nitrogen 22 mg/dL (7-20) H Creatinine 3.0 mg/dL (0.6-1.0) H Estimated GFR (Cockcroft-Gault) 15.9 BUN/Creatinine Ratio 7 (6-20) Glucose Level 120 mg/dL (70-99) H Calcium Level 10.5 mg/dL (8.5-10.1) H Magnesium Level 1.8 mg/dL (1.8-2.4) Total Bilirubin 0.2 mg/dL (0.2-1.0) Aspartate Amino Transferase (AST) 27 U/L (15-37) Alanine Aminotransferase (ALT) 17 U/L (14-59) Alkaline Phosphatase 86 U/L (46-116) Troponin I Quantitative < 0.017 ng/mL (0.000-0.055) Total Protein 8.5 g/dL (6.4-8.2) H Albumin 3.6 g/dL (3.4-5.0) Albumin/Globulin Ratio 0.7 (1.0-1.7) L Amylase Level 82 U/L (25-115) Lipase 334 U/L (73-393) Ethyl Alcohol Level < 10 mg/dL (0-10) Urine Collection Type Unknown Urine Color Yellow Urine Clarity Clear Urine pH 6.0 Urine Specific [place] 1.010 Urine Protein 100 mg/dL (NEG-TRACE) Urine Glucose (UA) Negative mg/dL (NEG) Urine Ketones (Stick) Negative mg/dL (NEG) Urine Blood Negative (NEG) Urine Nitrite Negative (NEG) Urine Bilirubin Negative (NEG) Urine Urobilinogen Dipstick 0.2 mg/dL (0.2 mg/dL) Urine Leukocyte Esterase Trace (NEG) Urine RBC 0 /HPF (0-2) Urine WBC 1-4 /HPF (0-4) Urine Squamous Epithelial Cells Occ /LPF Urine Bacteria Mod /HPF (0-FEW) Urine Opiates Screen Neg (NEG) Urine Methadone Screen Neg (NEG) Urine Barbiturates Pos (NEG) Urine Phencyclidine Screen Neg (NEG) Urine Amphetamine/Methamphetamine Neg (NEG) Urine Benzodiazepines Screen Pos (NEG) Urine Cocaine Screen Neg (NEG) Urine Cannabinoids Screen Neg (NEG) Urine Ethyl Alcohol Neg (NEG) Laboratory Tests 02/17/18 19:05 Laboratory Tests 02/17/18 19:05 EKG EKG Sinus rhythm at a rate of 100[] Radiology/Procedures Radiology/Procedures Chest x-ray - no acute disease noted[] Course & Med Decision Making Course & Med Decision Making Pertinent Labs and Imaging studies reviewed. (See chart for details) Past with Dr. Kc who agrees to admit the patient [] Dragon Disclaimer Dragon Disclaimer This electronic medical record was generated, in whole or in part, using a voice recognition dictation system. Departure Departure Impression: Primary Impression: Acute renal failure superimposed on chronic kidney disease Additional Impressions: Hypokalemia Vomiting and diarrhea Disposition: ADMITTED INPATIENT Admitting Physician: Alexia Kc Condition: IMPROVED Referrals: NO PCP (PCP) Problem Qualifiers EDWIN GONZALEZ MD Feb 17, 2018 19:48
[2018-02-17 20:22] LABS: BILIRUBIN,URINE NEGATIVE (NEG); CLARITY,URINE CLEAR; COLOR,URINE YELLOW; NITRITE,URINE NEGATIVE (NEG); PROTEIN,URINE 100 mg/dL (NEG-TRACE); UROBILINOGEN,URINE 0.2 mg/dL (0.2 mg/dL)
[2018-02-17 20:27] LABS: BARBITURATES POS (NEG); BENZODIAZEPINES POS (NEG); CANNABINOIDS NEG (NEG); COCAINE NEG (NEG); METHADONE NEG (NEG); OPIATES NEG (NEG); PHENCYCLIDINE NEG (NEG)
[2018-02-17 20:28] LABS: AMPHETAMINE/METHAMPHETAMINE NEG (NEG)
[2018-02-17 20:39] LABS: BACTERIA,URINE MOD /HPF (0-FEW); RBC,URINE 0 /HPF (0-2); SQUAMOUS EPITHELIAL CELL,UR OCC /LPF
[2018-02-17] MEDS ORDERED: POTASSIUM CHLORIDE 20 MEQ TABLET.ER. PO ONE (21:30)
--- NOTE | 2018-02-17 21:46 | PDOC1 ---
History and Physical Date of Admission Date of Admission DATE: 02/17/18 TIME: 21:34 Identification/Chief Complaint Chief Complaint nausea, abd pain Source Source: Chart review, Patient History of Present Illness History of Present Illness Ms. Rodriguez, is a 62 year old female admit with > 1 week of nausea vomiting and diarrhea. Her duaghter reported that she hasn't gotten out of bed much in a week, Kat reports she had been doing really well for a time after returning from the hospital after her recent admit Jan 31 for UTI chronic kidney disease. Patient was seen again in the emergency department on February 10 for nausea vomiting and diarrhea and was evaluated and discharged on Zofran at that time She is tearful and upset about not getting better, and repeatedly not doing well at home. multiple admits for similar, with nausea, abd pain, anxiety seem donis factors Past Medical History Past Medical History narcotic dependence, alcoholism, anemia, anxiety,arthritis, fibromyalgia, GERD , hypertension, hyperlipidemia, cardiac murmur, esophagitis, esophageal ulcers, back surgery, knee replacement. Cardiovascular: HTN, Hyperlipidemia Pulmonary: No pertinent hx GI: GERD, Other Heme/Onc: Anemia NOS Hepatobiliary: Other Psych: Anxiety, Depression Rheumatologic: Fibromyalgia Infectious disease: No pertinent hx, Other Renal/: Chronic renal insuff, Other Past Surgical History Past Surgical History: Total knee replacement, Tubal Ligation, Other Family History Family History: Heart Disease, Hypertension Social History ALCOHOL: other Drugs: Marijuana Current Medications Current Medications Current Medications Sodium Chloride 1,000 ml @ 150 mls/hr Q6H40M IV Last administered on at 19:00; Start 02/17/18 at 19:00; Stop 02/18/18 at 01:39 Potassium Chloride (Klor-Con) 40 meq 1X ONCE PO ; Start 02/17/18 at 21:30; Stop 02/17/18 at 21:31; Status DC Active Scripts Active Zofran Odt (Ondansetron) 4 Mg Tab.rapdis 1 Tab SL Q8HRS Percocet 7.5-325 Mg Tablet (Oxycodone/Acetaminophen) 1 Each Tablet 1 Tab PO QID Keflex (Cephalexin) 250 Mg Capsule 1 Cap PO TID Cymbalta (Duloxetine Hcl) 30 Mg Capsule.dr 90 Mg PO DAILY 30 Days Oxycodone Hcl 10 Mg Tablet 1 Tab PO PRN Q6HRS PRN 30 Days Alprazolam 0.5 Mg Tablet 1 Tab PO TID 30 Days Reported Alprazolam 1 Mg Tablet 1 Mg PO PRN TID PRN Nexium Capsule (Esomeprazole Magnesium) 40 Mg Capsule. 1 Cap PO DAILY Allergies Allergies: Coded Allergies: levofloxacin (Verified Allergy, Intermediate, 01/23/18) TOLERATES CIPRO I S O L A T I O N *CONTACT* (Verified Allergy, Unknown, 01/23/18) VRE, mrsa, chronic C.diff diphenhydramine HCl (Verified Adverse Reaction, Intermediate, "Jittery on the inside", 01/23/18) ROS General: YES: Chills, Fatigue, Malaise, Appetite; No: Night Sweats, Other PSYCHOLOGICAL ROS: YES: Anxiety, Concentration difficultie, Depression, Irritablity, Mood Swings, Sleep disturbances; No: Behavioral Disorder, Decreased libido, Disorientation, Hallucinations, Hostility, Memory difficulties, Obsessive thoughts, Suicidal ideation, Other Eyes: No Blurry vision, No Decreased vision, No Double vision, No Dry eyes, No Excessive tearing, No Eye Pain, No Itchy Eyes, No Loss of vision, No Photophobia , No Scotomata, No Uses contacts, No Uses glasses, No Other HEENT: No: Heacaches, Visual Changes, Hearing change, Nasal congestion, Nasal discharge, Oral lesions, Sinus pain, Sore Throat, Epistaxis, Sneezing, Snoring, Tinnitus, Vertigo, Vocal changes, Other Respiratory: No: Cough, Hemoptysis, Orthopnea, Pleuritic Pain, Shortness of breath, SOB with excertion, Sputum Changes, Stridor, Tachypnea, Wheezing, Other Cardiovascular: No Chest Pain, No Palpitations, No Orthopnea, No Paroxysmal Noc. Dyspnea, No Edema, No Lt Headedness, No Other Gastrointestinal: Yes Nausea, Yes Other; No Vomiting, No Abdominal Pain, No Diarrhea, No Constipation, No Melena, No Hematochezia Genitourinary: No Dysuria, No Frequency, No Incontinence, No Hematuria, No Retention, No Discharge, No Urgency, No Pain, No Flank Pain, No Other, No , No , No , No , No , No , No Musculoskeletal: Yes Gait Disturbance, Yes Joint Pain, Yes Joint Stiffness; No Joint Swelling, No Muscle Pain, No Muscular Weakness, No Pain In:, No Swelling In:, No Other Neurological: Yes Gait Disturbance; No Behavorial Changes, No Bowel/Bladder ControlChng, No Confusion, No Dizziness, No Headaches, No Impaired Coord/balance, No Memory Loss, No Numbness/ Tingling, No Seizures, No Speech Problems, No Tremors, No Visual Changes, No Weakness, No Other Skin: Yes Dry Skin; No Eczema, No Hair Changes, No Lumps, No Mole Changes, No Mottling, No Nail Changes, No Pruritus, No Rash, No Skin Lesion Changes, No Other, No Acne Physical Exam General: Alert, Cooperative, mild distress, moderate distress HEENT: Atraumatic Lungs: Clear to auscultation Heart: S1S2, no murmurs Abdomen: Soft, Other (mid diffuse TTP) Rectal Exam: not examined Extremities: No clubbing, No edema Skin: No rashes, No significant lesion Neuro: Normal speech, Sensation intact Psych/Mental Status: Mood NL, Other (very emotional, tearful that she is not getting better) Vitals Vitals Vital Signs Date Time Temp Pulse Resp B/P (MAP) Pulse Ox O2 Delivery O2 Flow Rate FiO2 02/17/18 18:44 98.6 104 16 191/108 (135) 93 Room Air 98.6 Labs Labs Laboratory Tests Test 02/17/18 19:05 02/17/18 20:13 White Blood Count 8.0 x10^3/uL (4.0-11.0) Red Blood Count 4.80 x10^6/uL (3.50-5.40) Hemoglobin 12.9 g/dL (12.0-15.5) Hematocrit 39.4 % (36.0-47.0) Mean Corpuscular Volume 82 fL (79-100) Mean Corpuscular Hemoglobin 27 pg (25-35) Mean Corpuscular Hemoglobin Concent 33 g/dL (31-37) Red Cell Distribution Width 18.1 % (11.5-14.5) Platelet Count 467 x10^3/uL (140-400) Neutrophils (%) (Auto) 50 % (31-73) Lymphocytes (%) (Auto) 38 % (24-48) Monocytes (%) (Auto) 11 % (0-9) Eosinophils (%) (Auto) 1 % (0-3) Basophils (%) (Auto) 1 % (0-3) Neutrophils # (Auto) 4.0 x10^3uL (1.8-7.7) Lymphocytes # (Auto) 3.0 x10^3/uL (1.0-4.8) Monocytes # (Auto) 0.9 x10^3/uL (0.0-1.1) Eosinophils # (Auto) 0.1 x10^3/uL (0.0-0.7) Basophils # (Auto) 0.0 x10^3/uL (0.0-0.2) Sodium Level 137 mmol/L (136-145) Potassium Level 2.9 mmol/L (3.5-5.1) Chloride Level 95 mmol/L (98-107) Carbon Dioxide Level 33 mmol/L (21-32) Anion Gap 9 (6-14) Blood Urea Nitrogen 22 mg/dL (7-20) Creatinine 3.0 mg/dL (0.6-1.0) Estimated GFR (Cockcroft-Gault) 15.9 BUN/Creatinine Ratio 7 (6-20) Glucose Level 120 mg/dL (70-99) Calcium Level 10.5 mg/dL (8.5-10.1) Magnesium Level 1.8 mg/dL (1.8-2.4) Total Bilirubin 0.2 mg/dL (0.2-1.0) Aspartate Amino Transf (AST/SGOT) 27 U/L (15-37) Alanine Aminotransferase (ALT/SGPT) 17 U/L (14-59) Alkaline Phosphatase 86 U/L (46-116) Troponin I Quantitative < 0.017 ng/mL (0.000-0.055) Total Protein 8.5 g/dL (6.4-8.2) Albumin 3.6 g/dL (3.4-5.0) Albumin/Globulin Ratio 0.7 (1.0-1.7) Amylase Level 82 U/L (25-115) Lipase 334 U/L (73-393) Ethyl Alcohol Level < 10 mg/dL (0-10) Urine Collection Type Unknown Urine Color Yellow Urine Clarity Clear Urine pH 6.0 Urine Specific [place] 1.010 Urine Protein 100 mg/dL (NEG-TRACE) Urine Glucose (UA) Negative mg/dL (NEG) Urine Ketones (Stick) Negative mg/dL (NEG) Urine Blood Negative (NEG) Urine Nitrite Negative (NEG) Urine Bilirubin Negative (NEG) Urine Urobilinogen Dipstick 0.2 mg/dL (0.2 mg/dL) Urine Leukocyte Esterase Trace (NEG) Urine RBC 0 /HPF (0-2) Urine WBC 1-4 /HPF (0-4) Urine Squamous Epithelial Cells Occ /LPF Urine Bacteria Mod /HPF (0-FEW) Urine Opiates Screen Neg (NEG) Urine Methadone Screen Neg (NEG) Urine Barbiturates Pos (NEG) Urine Phencyclidine Screen Neg (NEG) Urine Amphetamine/Methamphetamine Neg (NEG) Urine Benzodiazepines Screen Pos (NEG) Urine Cocaine Screen Neg (NEG) Urine Cannabinoids Screen Neg (NEG) Urine Ethyl Alcohol Neg (NEG) Laboratory Tests Test 02/17/18 19:05 02/17/18 20:13 White Blood Count 8.0 x10^3/uL (4.0-11.0) Red Blood Count 4.80 x10^6/uL (3.50-5.40) Hemoglobin 12.9 g/dL (12.0-15.5) Hematocrit 39.4 % (36.0-47.0) Mean Corpuscular Volume 82 fL (79-100) Mean Corpuscular Hemoglobin 27 pg (25-35) Mean Corpuscular Hemoglobin Concent 33 g/dL (31-37) Red Cell Distribution Width 18.1 % (11.5-14.5) Platelet Count 467 x10^3/uL (140-400) Neutrophils (%) (Auto) 50 % (31-73) Lymphocytes (%) (Auto) 38 % (24-48) Monocytes (%) (Auto) 11 % (0-9) Eosinophils (%) (Auto) 1 % (0-3) Basophils (%) (Auto) 1 % (0-3) Neutrophils # (Auto) 4.0 x10^3uL (1.8-7.7) Lymphocytes # (Auto) 3.0 x10^3/uL (1.0-4.8) Monocytes # (Auto) 0.9 x10^3/uL (0.0-1.1) Eosinophils # (Auto) 0.1 x10^3/uL (0.0-0.7) Basophils # (Auto) 0.0 x10^3/uL (0.0-0.2) Sodium Level 137 mmol/L (136-145) Potassium Level 2.9 mmol/L (3.5-5.1) Chloride Level 95 mmol/L (98-107) Carbon Dioxide Level 33 mmol/L (21-32) Anion Gap 9 (6-14) Blood Urea Nitrogen 22 mg/dL (7-20) Creatinine 3.0 mg/dL (0.6-1.0) Estimated GFR (Cockcroft-Gault) 15.9 BUN/Creatinine Ratio 7 (6-20) Glucose Level 120 mg/dL (70-99) Calcium Level 10.5 mg/dL (8.5-10.1) Magnesium Level 1.8 mg/dL (1.8-2.4) Total Bilirubin 0.2 mg/dL (0.2-1.0) Aspartate Amino Transf (AST/SGOT) 27 U/L (15-37) Alanine Aminotransferase (ALT/SGPT) 17 U/L (14-59) Alkaline Phosphatase 86 U/L (46-116) Troponin I Quantitative < 0.017 ng/mL (0.000-0.055) Total Protein 8.5 g/dL (6.4-8.2) Albumin 3.6 g/dL (3.4-5.0) Albumin/Globulin Ratio 0.7 (1.0-1.7) Amylase Level 82 U/L (25-115) Lipase 334 U/L (73-393) Ethyl Alcohol Level < 10 mg/dL (0-10) Urine Collection Type Unknown Urine Color Yellow Urine Clarity Clear Urine pH 6.0 Urine Specific [place] 1.010 Urine Protein 100 mg/dL (NEG-TRACE) Urine Glucose (UA) Negative mg/dL (NEG) Urine Ketones (Stick) Negative mg/dL (NEG) Urine Blood Negative (NEG) Urine Nitrite Negative (NEG) Urine Bilirubin Negative (NEG) Urine Urobilinogen Dipstick 0.2 mg/dL (0.2 mg/dL) Urine Leukocyte Esterase Trace (NEG) Urine RBC 0 /HPF (0-2) Urine WBC 1-4 /HPF (0-4) Urine Squamous Epithelial Cells Occ /LPF Urine Bacteria Mod /HPF (0-FEW) Urine Opiates Screen Neg (NEG) Urine Methadone Screen Neg (NEG) Urine Barbiturates Pos (NEG) Urine Phencyclidine Screen Neg (NEG) Urine Amphetamine/Methamphetamine Neg (NEG) Urine Benzodiazepines Screen Pos (NEG) Urine Cocaine Screen Neg (NEG) Urine Cannabinoids Screen Neg (NEG) Urine Ethyl Alcohol Neg (NEG) VTE Prophylaxis Ordered VTE Prophylaxis Devices: No VTE Pharmacological Prophylaxi: Yes Assessment/Plan Assessment/Plan acute renal failure, on CKD 3, vasomotor nephropathy, appears dry, or ATN on CKD, renal consult hypokalemia hypochloremia weakness and debility acute on chronic back pain with narcotic dependence, GERD, gastritis admit ERNIE FAITH MD Feb 17, 2018 21:46
--- NOTE | 2018-02-17 21:59 | RAD ---
PROCEDURE: PORTABLE CHEST 1V CLINICAL INDICATION: NAUSEA, VOMITING, DIARRHEA X 1 WEEK, WEAKNESS COMPARISON: 02/01/2018 FINDINGS: No pneumothorax identified. Cardiac and mediastinal contours unremarkable. No pulmonary consolidation or acute airspace disease. No acute osseous abnormalities identified. IMPRESSION: No pulmonary consolidation or acute airspace disease. Electronically signed by: Davi Baez DO (02/17/2018 9:56 PM) [facility]
[2018-02-17] MEDS ORDERED: MAGNESIUM SULFATE 2GM 50 ML IV ONE (22:00)
[2018-02-17] MEDS: POTASSIUM CL 20MEQ D5-0.45NACL 1,000 ML IV SCH (22:08)
[2018-02-17] MEDS: oxyCODONE IR 5 MG TABLET PO PRN (23:04)
[2018-02-17] MEDS: ONDANSETRON ODT 4 MG TAB.RAPDIS. PO SCH (23:05)
[2018-02-18] VITALS (7 sets, daily range): BP systolic 137–165; BP diastolic 68–100
[2018-02-18] MEDS: ALPRAZolam 1 MG TABLET PO PRN ×2 (00:17→09:22)
[2018-02-18] MEDS ORDERED: AMLO10TA2 PO (00:59)
[2018-02-18] MEDS: ONDANSETRON ODT 4 MG TAB.RAPDIS. PO SCH ×3 (05:46→21:00)
[2018-02-18] MEDS: oxyCODONE IR 5 MG TABLET PO PRN (05:46)
--- NOTE | 2018-02-18 06:22 | EKG ---
[facility] [address] [place] [address] Test Date: 2018-02-17 Test Time: 18:53:50 Pat Name: SANTI HERRON Department: Room: 562 1 Gender: F German Tutor: JOSY : 1955 Requested By: EDWIN GONZALEZ Order Number: [id number] Reading MD: Viraj Slulivan MD Measurements Intervals [place] Rate: 100 P: 42 AK: 150 QRS: 21 QRSD: 78 T: 30 QT: 380 QTc: 494 Interpretive Statements SINUS RHYTHM ATRIAL PREMATURE COMPLEX(ES) NON-SPECIFIC ST/T CHANGES Electronically Signed On 02-18-2018 12:09:51 CDT by Viraj Sullivan MD
[2018-02-18] MEDS: POTASSIUM CL 20MEQ D5-0.45NACL 1,000 ML IV SCH ×2 (08:00→15:00)
[2018-02-18] MEDS: PANTOPRAZOLE 40 MG TABLET.DR. PO SCH (09:22)
[2018-02-18] MEDS: POTASSIUM CHLORIDE 20 MEQ TABLET.ER. PO SCH (09:22)
[2018-02-18] MEDS: oxyCODONE/APAP 7.5/325 1 TAB TABLET PO SCH ×4 (09:22→20:59)
[2018-02-18] MEDS: DULoxetine HCL 30 MG CAPSULE.DR PO SCH (09:23)
[2018-02-18] MEDS: LIDOCAINE (700MG/PATCH) PATCH. TD SCH (09:24)
[2018-02-18 09:32] LABS: BASO # 0.2 x10^3/uL (0.0-0.2); BASO % 3 % (0-3); EOS # 0.2 x10^3/uL (0.0-0.7); EOS % 3 % (0-3); HEMATOCRIT 36.6 % (36.0-47.0); HEMOGLOBIN 11.8 g/dL (12.0-15.5); LYMPH # 3.1 x10^3/uL (1.0-4.8); LYMPH % 41 % (24-48); MEAN CORPUSCULAR HEMOGLOBIN 27 pg (25-35); MEAN CORPUSCULAR HGB CONC 32 g/dL (31-37); MEAN CORPUSCULAR VOLUME 83 fL (79-100); MONO # 0.9 x10^3/uL (0.0-1.1); MONO % 12 % (0-9); NEUT # 3.1 x10^3uL (1.8-7.7); NEUT % 41 % (31-73); PLATELET COUNT 413 x10^3/uL (140-400); RED BLOOD COUNT 4.43 x10^6/uL (3.50-5.40); RED CELL DISTRIBUTION WIDTH 18.4 % (11.5-14.5); WHITE BLOOD COUNT 7.6 x10^3/uL (4.0-11.0)
[2018-02-18 09:54] LABS: CALCIUM 9.6 mg/dL (8.5-10.1); CREATININE 2.7 mg/dL (0.6-1.0); GFR 17.9; POTASSIUM 3.2 mmol/L (3.5-5.1)
--- NOTE | 2018-02-18 11:01 | PDOC ---
PROGRESS NOTES History of Present Illness History of Present Illness Assessment/Plan Assessment/Plan acute renal failure, on CKD 3, vasomotor nephropathy, appears dry, or ATN on CKD, renal following hypokalemia hypochloremia weakness and debility acute on chronic back pain with narcotic dependence, GERD, gastritis discussed home dietary changes admit 2 mn Vitals Vitals Vital Signs Date Time Temp Pulse Resp B/P (MAP) Pulse Ox O2 Delivery O2 Flow Rate FiO2 02/18/18 09:22 14 Room Air 02/18/18 02:53 98.6 87 149/68 (95) 96 98.6 Physical Exam General: Alert, Oriented X3, Cooperative, mild distress, moderate distress Heart: Regular rate Lungs: Clear Abdomen: Normal bowel sounds, Soft, Other (mid diffuse TTP) Extremities: No clubbing, No cyanosis, No edema Skin: No rashes, No significant lesion Labs LABS Laboratory Tests Test 02/17/18 19:05 02/17/18 20:13 02/18/18 09:00 White Blood Count 8.0 x10^3/uL (4.0-11.0) 7.6 x10^3/uL (4.0-11.0) Red Blood Count 4.80 x10^6/uL (3.50-5.40) 4.43 x10^6/uL (3.50-5.40) Hemoglobin 12.9 g/dL (12.0-15.5) 11.8 g/dL (12.0-15.5) Hematocrit 39.4 % (36.0-47.0) 36.6 % (36.0-47.0) Mean Corpuscular Volume 82 fL (79-100) 83 fL (79-100) Mean Corpuscular Hemoglobin 27 pg (25-35) 27 pg (25-35) Mean Corpuscular Hemoglobin Concent 33 g/dL (31-37) 32 g/dL (31-37) Red Cell Distribution Width 18.1 % (11.5-14.5) 18.4 % (11.5-14.5) Platelet Count 467 x10^3/uL (140-400) 413 x10^3/uL (140-400) Neutrophils (%) (Auto) 50 % (31-73) 41 % (31-73) Lymphocytes (%) (Auto) 38 % (24-48) 41 % (24-48) Monocytes (%) (Auto) 11 % (0-9) 12 % (0-9) Eosinophils (%) (Auto) 1 % (0-3) 3 % (0-3) Basophils (%) (Auto) 1 % (0-3) 3 % (0-3) Neutrophils # (Auto) 4.0 x10^3uL (1.8-7.7) 3.1 x10^3uL (1.8-7.7) Lymphocytes # (Auto) 3.0 x10^3/uL (1.0-4.8) 3.1 x10^3/uL (1.0-4.8) Monocytes # (Auto) 0.9 x10^3/uL (0.0-1.1) 0.9 x10^3/uL (0.0-1.1) Eosinophils # (Auto) 0.1 x10^3/uL (0.0-0.7) 0.2 x10^3/uL (0.0-0.7) Basophils # (Auto) 0.0 x10^3/uL (0.0-0.2) 0.2 x10^3/uL (0.0-0.2) Sodium Level 137 mmol/L (136-145) 134 mmol/L (136-145) Potassium Level 2.9 mmol/L (3.5-5.1) 3.2 mmol/L (3.5-5.1) Chloride Level 95 mmol/L (98-107) 98 mmol/L (98-107) Carbon Dioxide Level 33 mmol/L (21-32) 30 mmol/L (21-32) Anion Gap 9 (6-14) 6 (6-14) Blood Urea Nitrogen 22 mg/dL (7-20) 18 mg/dL (7-20) Creatinine 3.0 mg/dL (0.6-1.0) 2.7 mg/dL (0.6-1.0) Estimated GFR (Cockcroft-Gault) 15.9 17.9 BUN/Creatinine Ratio 7 (6-20) Glucose Level 120 mg/dL (70-99) 125 mg/dL (70-99) Calcium Level 10.5 mg/dL (8.5-10.1) 9.6 mg/dL (8.5-10.1) Magnesium Level 1.8 mg/dL (1.8-2.4) Total Bilirubin 0.2 mg/dL (0.2-1.0) Aspartate Amino Transf (AST/SGOT) 27 U/L (15-37) Alanine Aminotransferase (ALT/SGPT) 17 U/L (14-59) Alkaline Phosphatase 86 U/L (46-116) Troponin I Quantitative < 0.017 ng/mL (0.000-0.055) Total Protein 8.5 g/dL (6.4-8.2) Albumin 3.6 g/dL (3.4-5.0) Albumin/Globulin Ratio 0.7 (1.0-1.7) Amylase Level 82 U/L (25-115) Lipase 334 U/L (73-393) Ethyl Alcohol Level < 10 mg/dL (0-10) Urine Collection Type Unknown Urine Color Yellow Urine Clarity Clear Urine pH 6.0 Urine Specific [place] 1.010 Urine Protein 100 mg/dL (NEG-TRACE) Urine Glucose (UA) Negative mg/dL (NEG) Urine Ketones (Stick) Negative mg/dL (NEG) Urine Blood Negative (NEG) Urine Nitrite Negative (NEG) Urine Bilirubin Negative (NEG) Urine Urobilinogen Dipstick 0.2 mg/dL (0.2 mg/dL) Urine Leukocyte Esterase Trace (NEG) Urine RBC 0 /HPF (0-2) Urine WBC 1-4 /HPF (0-4) Urine Squamous Epithelial Cells Occ /LPF Urine Bacteria Mod /HPF (0-FEW) Urine Opiates Screen Neg (NEG) Urine Methadone Screen Neg (NEG) Urine Barbiturates Pos (NEG) Urine Phencyclidine Screen Neg (NEG) Urine Amphetamine/Methamphetamine Neg (NEG) Urine Benzodiazepines Screen Pos (NEG) Urine Cocaine Screen Neg (NEG) Urine Cannabinoids Screen Neg (NEG) Urine Ethyl Alcohol Neg (NEG) Assessment and Plan Assessmemt and Plan Problems Medical Problems: (1) Acute renal failure superimposed on chronic kidney disease Status: Acute (2) Hypokalemia Status: Acute (3) Vomiting and diarrhea Status: Acute Past Medical History Past Medical History narcotic dependence, alcoholism, anemia, anxiety,arthritis, fibromyalgia, GERD , hypertension, hyperlipidemia, cardiac murmur, esophagitis, esophageal ulcers, back surgery, knee replacement. Cardiovascular: HTN, Hyperlipidemia Pulmonary: No pertinent hx GI: GERD, Other Heme/Onc: Anemia NOS Hepatobiliary: Other Psych: Anxiety, Depression Rheumatologic: Fibromyalgia Infectious disease: No pertinent hx, Other Renal/: Chronic renal insuff, Other Past Surgical History Past Surgical History: Total knee replacement, Tubal Ligation, Other Family History Family History: Heart Disease, Hypertension Social History ALCOHOL: other Drugs: Marijuana Comment Review of Relevant I have reviewed the following items blade (where applicable) has been applied. Labs Laboratory Tests Test 02/17/18 19:05 02/17/18 20:13 02/18/18 09:00 White Blood Count 8.0 x10^3/uL (4.0-11.0) 7.6 x10^3/uL (4.0-11.0) Red Blood Count 4.80 x10^6/uL (3.50-5.40) 4.43 x10^6/uL (3.50-5.40) Hemoglobin 12.9 g/dL (12.0-15.5) 11.8 g/dL (12.0-15.5) Hematocrit 39.4 % (36.0-47.0) 36.6 % (36.0-47.0) Mean Corpuscular Volume 82 fL (79-100) 83 fL (79-100) Mean Corpuscular Hemoglobin 27 pg (25-35) 27 pg (25-35) Mean Corpuscular Hemoglobin Concent 33 g/dL (31-37) 32 g/dL (31-37) Red Cell Distribution Width 18.1 % (11.5-14.5) 18.4 % (11.5-14.5) Platelet Count 467 x10^3/uL (140-400) 413 x10^3/uL (140-400) Neutrophils (%) (Auto) 50 % (31-73) 41 % (31-73) Lymphocytes (%) (Auto) 38 % (24-48) 41 % (24-48) Monocytes (%) (Auto) 11 % (0-9) 12 % (0-9) Eosinophils (%) (Auto) 1 % (0-3) 3 % (0-3) Basophils (%) (Auto) 1 % (0-3) 3 % (0-3) Neutrophils # (Auto) 4.0 x10^3uL (1.8-7.7) 3.1 x10^3uL (1.8-7.7) Lymphocytes # (Auto) 3.0 x10^3/uL (1.0-4.8) 3.1 x10^3/uL (1.0-4.8) Monocytes # (Auto) 0.9 x10^3/uL (0.0-1.1) 0.9 x10^3/uL (0.0-1.1) Eosinophils # (Auto) 0.1 x10^3/uL (0.0-0.7) 0.2 x10^3/uL (0.0-0.7) Basophils # (Auto) 0.0 x10^3/uL (0.0-0.2) 0.2 x10^3/uL (0.0-0.2) Sodium Level 137 mmol/L (136-145) 134 mmol/L (136-145) Potassium Level 2.9 mmol/L (3.5-5.1) 3.2 mmol/L (3.5-5.1) Chloride Level 95 mmol/L (98-107) 98 mmol/L (98-107) Carbon Dioxide Level 33 mmol/L (21-32) 30 mmol/L (21-32) Anion Gap 9 (6-14) 6 (6-14) Blood Urea Nitrogen 22 mg/dL (7-20) 18 mg/dL (7-20) Creatinine 3.0 mg/dL (0.6-1.0) 2.7 mg/dL (0.6-1.0) Estimated GFR (Cockcroft-Gault) 15.9 17.9 BUN/Creatinine Ratio 7 (6-20) Glucose Level 120 mg/dL (70-99) 125 mg/dL (70-99) Calcium Level 10.5 mg/dL (8.5-10.1) 9.6 mg/dL (8.5-10.1) Magnesium Level 1.8 mg/dL (1.8-2.4) Total Bilirubin 0.2 mg/dL (0.2-1.0) Aspartate Amino Transf (AST/SGOT) 27 U/L (15-37) Alanine Aminotransferase (ALT/SGPT) 17 U/L (14-59) Alkaline Phosphatase 86 U/L (46-116) Troponin I Quantitative < 0.017 ng/mL (0.000-0.055) Total Protein 8.5 g/dL (6.4-8.2) Albumin 3.6 g/dL (3.4-5.0) Albumin/Globulin Ratio 0.7 (1.0-1.7) Amylase Level 82 U/L (25-115) Lipase 334 U/L (73-393) Ethyl Alcohol Level < 10 mg/dL (0-10) Urine Collection Type Unknown Urine Color Yellow Urine Clarity Clear Urine pH 6.0 Urine Specific [place] 1.010 Urine Protein 100 mg/dL (NEG-TRACE) Urine Glucose (UA) Negative mg/dL (NEG) Urine Ketones (Stick) Negative mg/dL (NEG) Urine Blood Negative (NEG) Urine Nitrite Negative (NEG) Urine Bilirubin Negative (NEG) Urine Urobilinogen Dipstick 0.2 mg/dL (0.2 mg/dL) Urine Leukocyte Esterase Trace (NEG) Urine RBC 0 /HPF (0-2) Urine WBC 1-4 /HPF (0-4) Urine Squamous Epithelial Cells Occ /LPF Urine Bacteria Mod /HPF (0-FEW) Urine Opiates Screen Neg (NEG) Urine Methadone Screen Neg (NEG) Urine Barbiturates Pos (NEG) Urine Phencyclidine Screen Neg (NEG) Urine Amphetamine/Methamphetamine Neg (NEG) Urine Benzodiazepines Screen Pos (NEG) Urine Cocaine Screen Neg (NEG) Urine Cannabinoids Screen Neg (NEG) Urine Ethyl Alcohol Neg (NEG) Laboratory Tests Test 02/17/18 19:05 02/17/18 20:13 02/18/18 09:00 White Blood Count 8.0 x10^3/uL (4.0-11.0) 7.6 x10^3/uL (4.0-11.0) Red Blood Count 4.80 x10^6/uL (3.50-5.40) 4.43 x10^6/uL (3.50-5.40) Hemoglobin 12.9 g/dL (12.0-15.5) 11.8 g/dL (12.0-15.5) Hematocrit 39.4 % (36.0-47.0) 36.6 % (36.0-47.0) Mean Corpuscular Volume 82 fL (79-100) 83 fL (79-100) Mean Corpuscular Hemoglobin 27 pg (25-35) 27 pg (25-35) Mean Corpuscular Hemoglobin Concent 33 g/dL (31-37) 32 g/dL (31-37) Red Cell Distribution Width 18.1 % (11.5-14.5) 18.4 % (11.5-14.5) Platelet Count 467 x10^3/uL (140-400) 413 x10^3/uL (140-400) Neutrophils (%) (Auto) 50 % (31-73) 41 % (31-73) Lymphocytes (%) (Auto) 38 % (24-48) 41 % (24-48) Monocytes (%) (Auto) 11 % (0-9) 12 % (0-9) Eosinophils (%) (Auto) 1 % (0-3) 3 % (0-3) Basophils (%) (Auto) 1 % (0-3) 3 % (0-3) Neutrophils # (Auto) 4.0 x10^3uL (1.8-7.7) 3.1 x10^3uL (1.8-7.7) Lymphocytes # (Auto) 3.0 x10^3/uL (1.0-4.8) 3.1 x10^3/uL (1.0-4.8) Monocytes # (Auto) 0.9 x10^3/uL (0.0-1.1) 0.9 x10^3/uL (0.0-1.1) Eosinophils # (Auto) 0.1 x10^3/uL (0.0-0.7) 0.2 x10^3/uL (0.0-0.7) Basophils # (Auto) 0.0 x10^3/uL (0.0-0.2) 0.2 x10^3/uL (0.0-0.2) Sodium Level 137 mmol/L (136-145) 134 mmol/L (136-145) Potassium Level 2.9 mmol/L (3.5-5.1) 3.2 mmol/L (3.5-5.1) Chloride Level 95 mmol/L (98-107) 98 mmol/L (98-107) Carbon Dioxide Level 33 mmol/L (21-32) 30 mmol/L (21-32) Anion Gap 9 (6-14) 6 (6-14) Blood Urea Nitrogen 22 mg/dL (7-20) 18 mg/dL (7-20) Creatinine 3.0 mg/dL (0.6-1.0) 2.7 mg/dL (0.6-1.0) Estimated GFR (Cockcroft-Gault) 15.9 17.9 BUN/Creatinine Ratio 7 (6-20) Glucose Level 120 mg/dL (70-99) 125 mg/dL (70-99) Calcium Level 10.5 mg/dL (8.5-10.1) 9.6 mg/dL (8.5-10.1) Magnesium Level 1.8 mg/dL (1.8-2.4) Total Bilirubin 0.2 mg/dL (0.2-1.0) Aspartate Amino Transf (AST/SGOT) 27 U/L (15-37) Alanine Aminotransferase (ALT/SGPT) 17 U/L (14-59) Alkaline Phosphatase 86 U/L (46-116) Troponin I Quantitative < 0.017 ng/mL (0.000-0.055) Total Protein 8.5 g/dL (6.4-8.2) Albumin 3.6 g/dL (3.4-5.0) Albumin/Globulin Ratio 0.7 (1.0-1.7) Amylase Level 82 U/L (25-115) Lipase 334 U/L (73-393) Ethyl Alcohol Level < 10 mg/dL (0-10) Urine Collection Type Unknown Urine Color Yellow Urine Clarity Clear Urine pH 6.0 Urine Specific [place] 1.010 Urine Protein 100 mg/dL (NEG-TRACE) Urine Glucose (UA) Negative mg/dL (NEG) Urine Ketones (Stick) Negative mg/dL (NEG) Urine Blood Negative (NEG) Urine Nitrite Negative (NEG) Urine Bilirubin Negative (NEG) Urine Urobilinogen Dipstick 0.2 mg/dL (0.2 mg/dL) Urine Leukocyte Esterase Trace (NEG) Urine RBC 0 /HPF (0-2) Urine WBC 1-4 /HPF (0-4) Urine Squamous Epithelial Cells Occ /LPF Urine Bacteria Mod /HPF (0-FEW) Urine Opiates Screen Neg (NEG) Urine Methadone Screen Neg (NEG) Urine Barbiturates Pos (NEG) Urine Phencyclidine Screen Neg (NEG) Urine Amphetamine/Methamphetamine Neg (NEG) Urine Benzodiazepines Screen Pos (NEG) Urine Cocaine Screen Neg (NEG) Urine Cannabinoids Screen Neg (NEG) Urine Ethyl Alcohol Neg (NEG) Medications Current Medications Sodium Chloride 1,000 ml @ 150 mls/hr Q6H40M IV Last administered on 19:00; Start 02/17/18 at 19:00; Stop 02/17/18 at 21:46; Status DC Potassium Chloride (Klor-Con) 40 meq 1X ONCE PO Last administered on at 21:39; Start 02/17/18 at 21:30; Stop 02/17/18 at 21:31; Status DC Magnesium Sulfate 50 ml @ 25 mls/hr 1X ONCE IV Last administered on 02/18/18at 02:43; Start 02/17/18 at 22:00; Stop 02/17/18 at 23:59; Status DC Potassium Chloride (Klor-Con) 20 meq DAILY PO Last administered on 02/18/18 09 :22; Start 02/18/18 at 09:00 Alprazolam (Xanax) 1 mg PRN TID PRN PO ANXIETY / AGITATION Last administered on 02/18/18 09:22; Start 02/17/18 at 21:45 Duloxetine HCl (Cymbalta) 90 mg DAILY PO Last administered on 02/18/18at 09:23; Start 02/18/18 at 09:00 Ondansetron HCl (Zofran Odt) 4 mg Q8HRS PO Last administered on 02/18/18at 05:46 ; Start 02/17/18 at 22:00 Oxycodone/ Acetaminophen (Percocet 7.5/ 325) 1 tab QID PO Last administered on 02/18/18 09:22; Start 02/18/18 at 09:00 Pantoprazole Sodium (Protonix) 40 mg DAILYAC PO Last administered on 02/18/18 09:22; Start 02/18/18 at 07:30 Oxycodone HCl (Roxicodone) 10 mg PRN Q6HRS PRN PO SEVERE PAIN Last administered on 8/21/18at 05:46; Start 02/17/18 at 22:00 Lidocaine (Lidoderm) 1 patch DAILY TD Last administered on 02/18/18at 09:24; Start 02/18/18 at 09:00 Potassium Chloride/Dextrose/ Sod Cl 1,000 ml @ 100 mls/hr Q10H IV Last administered on 02/17/18at 22:08; Start 02/17/18 at 22:00 Active Scripts Active Zofran Odt (Ondansetron) 4 Mg Tab.rapdis 1 Tab SL Q8HRS Percocet 7.5-325 Mg Tablet (Oxycodone/Acetaminophen) 1 Each Tablet 1 Tab PO QID Keflex (Cephalexin) 250 Mg Capsule 1 Cap PO TID Cymbalta (Duloxetine Hcl) 30 Mg Capsule.dr 90 Mg PO DAILY 30 Days Oxycodone Hcl 10 Mg Tablet 1 Tab PO PRN Q6HRS PRN 30 Days Alprazolam 0.5 Mg Tablet 1 Tab PO TID 30 Days Reported Amlodipine Besylate 10 Mg Tablet 10 Mg PO DAILY Alprazolam 1 Mg Tablet 1 Mg PO PRN TID PRN Nexium Capsule (Esomeprazole Magnesium) 40 Mg Capsule. 1 Cap PO DAILY Vitals/I & O Vital Sign - Last 24 Hours 02/17/18 02/17/18 02/18/18 02/18/18 18:44 23:04 00:05 00:34 Temp 98.6 98.4 98.6 98.4 Pulse 104 94 Resp 16 18 18 B/P (MAP) 191/108 (135) 156/100 (118) Pulse Ox 93 95 96 O2 Delivery Room Air Room Air Room Air Room Air 02/18/18 02/18/18 02/18/18 02/18/18 02:53 05:46 06:41 09:22 Temp 98.6 98.6 Pulse 87 Resp 18 14 B/P (MAP) 149/68 (95) Pulse Ox 96 O2 Delivery Room Air Room Air Room Air Room Air Intake and Output 02/17/18 02/17/18 02/18/18 15:00 23:00 07:00 Intake Total 1000 ml 275 ml Balance 1000 ml 275 ml WEI COLLINS MD Feb 18, 2018 11:01
--- NOTE | 2018-02-18 11:46 | PDOC2 ---
CONSULT Date of Consult Date of Consult DATE: 02/18/18 TIME: 11:34 Reason for Consult Reason for Consult: Renal failure Source Source: Chart review, Patient History of Present Illness Reason for Visit: Pt is a 62 year CF multiple Hospitalizations , admitted with > 1 week of nausea vomiting and diarrhea. As per Pt daughter told her that she hasn't gotten out of bed much in a week, Pt reports she had been doing really well for a time after returning from the hospital after her recent admit Aug for Dysphagia, UTI chronic kidney disease. Patient was seen again in the emergency department on February 10 for nausea vomiting and diarrhea and was evaluated and discharged on Zofran at that time multiple admits for similar, with nausea, abd pain, anxiety States has been complaint with straight cath at Home- 4times/day, Denies dysuria , hematuria. Reports feeling better this am, No N/V She reports she follows with Dr. Crawford, Nephrology - But has Not seen him in OP setting due to Multiple Hospitalizations ALCOHOL: other (h/o heavy alcohol use - says now wine every few weeks) Drugs: Marijuana (her duaghter uses marijuana for stress and she has tried it a few times) Past Medical History Cardiovascular: HTN, Hyperlipidemia Pulmonary: No pertinent hx GI: GERD, Other Heme/Onc: Anemia NOS Hepatobiliary: Other Psych: Anxiety, Depression Rheumatologic: Fibromyalgia Infectious disease: No pertinent hx, Other Renal/: Chronic renal insuff, Other Past Surgical History Past Surgical History: Total knee replacement, Tubal Ligation, Other Family History Family History: Heart Disease, Hypertension Social History ALCOHOL: other Drugs: Marijuana Lives: Alone Current Problem List Problem List Problems Medical Problems: (1) Acute renal failure superimposed on chronic kidney disease Status: Acute (2) Hypokalemia Status: Acute (3) Vomiting and diarrhea Status: Acute Current Medications Current Medications Current Medications Sodium Chloride 1,000 ml @ 150 mls/hr Q6H40M IV Last administered on at 19:00; Start 02/17/18 at 19:00; Stop 02/17/18 at 21:46; Status DC Potassium Chloride (Klor-Con) 40 meq 1X ONCE PO Last administered on at 21:39; Start 02/17/18 at 21:30; Stop 02/17/18 at 21:31; Status DC Magnesium Sulfate 50 ml @ 25 mls/hr 1X ONCE IV Last administered on 02/18/18 02:43; Start 02/17/18 at 22:00; Stop 02/17/18 at 23:59; Status DC Potassium Chloride (Klor-Con) 20 meq DAILY PO Last administered on 02/18/18 09 :22; Start 02/18/18 at 09:00 Alprazolam (Xanax) 1 mg PRN TID PRN PO ANXIETY / AGITATION Last administered on 02/18/18 09:22; Start 02/17/18 at 21:45 Duloxetine HCl (Cymbalta) 90 mg DAILY PO Last administered on 02/18/18 09:23; Start 02/18/18 at 09:00 Ondansetron HCl (Zofran Odt) 4 mg Q8HRS PO Last administered on 02/18/18 05:46 ; Start 02/17/18 at 22:00 Oxycodone/ Acetaminophen (Percocet 7.5/ 325) 1 tab QID PO Last administered on 02/18/18 09:22; Start 02/18/18 at 09:00 Pantoprazole Sodium (Protonix) 40 mg DAILYAC PO Last administered on 02/18/18 09:22; Start 02/18/18 at 07:30 Oxycodone HCl (Roxicodone) 10 mg PRN Q6HRS PRN PO SEVERE PAIN Last administered on 02/18/18 05:46; Start 02/17/18 at 22:00 Lidocaine (Lidoderm) 1 patch DAILY TD Last administered on 02/18/18 09:24; Start 02/18/18 at 09:00 Potassium Chloride/Dextrose/ Sod Cl 1,000 ml @ 100 mls/hr Q10H IV Last administered on 02/17/18at 22:08; Start 02/17/18 at 22:00 Active Scripts Active Zofran Odt (Ondansetron) 4 Mg Tab.rapdis 1 Tab SL Q8HRS Percocet 7.5-325 Mg Tablet (Oxycodone/Acetaminophen) 1 Each Tablet 1 Tab PO QID Keflex (Cephalexin) 250 Mg Capsule 1 Cap PO TID Cymbalta (Duloxetine Hcl) 30 Mg Capsule.dr 90 Mg PO DAILY 30 Days Oxycodone Hcl 10 Mg Tablet 1 Tab PO PRN Q6HRS PRN 30 Days Alprazolam 0.5 Mg Tablet 1 Tab PO TID 30 Days Reported Amlodipine Besylate 10 Mg Tablet 10 Mg PO DAILY Alprazolam 1 Mg Tablet 1 Mg PO PRN TID PRN Nexium Capsule (Esomeprazole Magnesium) 40 Mg Capsule. 1 Cap PO DAILY Allergies Allergies: Coded Allergies: levofloxacin (Verified Allergy, Intermediate, 01/23/18) TOLERATES CIPRO I S O L A T I O N *CONTACT* (Verified Allergy, Unknown, 01/23/18) VRE, mrsa, chronic C.diff diphenhydramine HCl (Verified Adverse Reaction, Intermediate, "Jittery on the inside", 01/23/18) ROS Review of System As per HPI Physical Exam Physical Exam General: NAD HEENT: OM moist neck Supple Lungs: Clear to auscultation Bilat, Non labored Heart - RRR, ANJELICA+ no gallops Abdomen: Normal bowel sounds, Soft Extremities: No edema Skin: No rashes Neuro: Grossly Normal Skin No rash - No Drummond , No CVA or SP tenderness Vital Signs Vital Signs Date Time Temp Pulse Resp B/P (MAP) Pulse Ox O2 Delivery O2 Flow Rate FiO2 02/18/18 09:22 14 Room Air 02/18/18 02:53 98.6 87 149/68 (95) 96 98.6 Assessment & Plan AK I on CKD :Multifactorial- prerenal , ?LUGO(neurogenic bladder), decreased PO intake Multiple Hospitalizations with [facility] Please get Bladder scan , Does Self cath at home , SP catheter was removed by Urology due to UTI's Last Visit Pre--void 600 cc of Urine - Post Void 400 No e/o UTI , Current FLuid and electrolyte status does not necessitate emergent need for Dialysis Continue IVf 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 Presumably due to history of neurogenic bladder and noncompliance with self catheter possible reflux nephropathy She reports she follows with Dr. Crawford, Neph- hasnt seen him recently as she has been Hospitalized x 3 in past 1 Month Hypokalemia -Mildly low Monitor and replace as needed Hypercalcemia- likely sec to Dehydration Resolved today Anemia - Hgb stable HTN- Stable Labs Labs Laboratory Tests Test 02/17/18 19:05 02/17/18 20:13 02/18/18 09:00 White Blood Count 8.0 x10^3/uL (4.0-11.0) 7.6 x10^3/uL (4.0-11.0) Red Blood Count 4.80 x10^6/uL (3.50-5.40) 4.43 x10^6/uL (3.50-5.40) Hemoglobin 12.9 g/dL (12.0-15.5) 11.8 g/dL (12.0-15.5) Hematocrit 39.4 % (36.0-47.0) 36.6 % (36.0-47.0) Mean Corpuscular Volume 82 fL (79-100) 83 fL (79-100) Mean Corpuscular Hemoglobin 27 pg (25-35) 27 pg (25-35) Mean Corpuscular Hemoglobin Concent 33 g/dL (31-37) 32 g/dL (31-37) Red Cell Distribution Width 18.1 % (11.5-14.5) 18.4 % (11.5-14.5) Platelet Count 467 x10^3/uL (140-400) 413 x10^3/uL (140-400) Neutrophils (%) (Auto) 50 % (31-73) 41 % (31-73) Lymphocytes (%) (Auto) 38 % (24-48) 41 % (24-48) Monocytes (%) (Auto) 11 % (0-9) 12 % (0-9) Eosinophils (%) (Auto) 1 % (0-3) 3 % (0-3) Basophils (%) (Auto) 1 % (0-3) 3 % (0-3) Neutrophils # (Auto) 4.0 x10^3uL (1.8-7.7) 3.1 x10^3uL (1.8-7.7) Lymphocytes # (Auto) 3.0 x10^3/uL (1.0-4.8) 3.1 x10^3/uL (1.0-4.8) Monocytes # (Auto) 0.9 x10^3/uL (0.0-1.1) 0.9 x10^3/uL (0.0-1.1) Eosinophils # (Auto) 0.1 x10^3/uL (0.0-0.7) 0.2 x10^3/uL (0.0-0.7) Basophils # (Auto) 0.0 x10^3/uL (0.0-0.2) 0.2 x10^3/uL (0.0-0.2) Sodium Level 137 mmol/L (136-145) 134 mmol/L (136-145) Potassium Level 2.9 mmol/L (3.5-5.1) 3.2 mmol/L (3.5-5.1) Chloride Level 95 mmol/L (98-107) 98 mmol/L (98-107) Carbon Dioxide Level 33 mmol/L (21-32) 30 mmol/L (21-32) Anion Gap 9 (6-14) 6 (6-14) Blood Urea Nitrogen 22 mg/dL (7-20) 18 mg/dL (7-20) Creatinine 3.0 mg/dL (0.6-1.0) 2.7 mg/dL (0.6-1.0) Estimated GFR (Cockcroft-Gault) 15.9 17.9 BUN/Creatinine Ratio 7 (6-20) Glucose Level 120 mg/dL (70-99) 125 mg/dL (70-99) Calcium Level 10.5 mg/dL (8.5-10.1) 9.6 mg/dL (8.5-10.1) Magnesium Level 1.8 mg/dL (1.8-2.4) Total Bilirubin 0.2 mg/dL (0.2-1.0) Aspartate Amino Transf (AST/SGOT) 27 U/L (15-37) Alanine Aminotransferase (ALT/SGPT) 17 U/L (14-59) Alkaline Phosphatase 86 U/L (46-116) Troponin I Quantitative < 0.017 ng/mL (0.000-0.055) Total Protein 8.5 g/dL (6.4-8.2) Albumin 3.6 g/dL (3.4-5.0) Albumin/Globulin Ratio 0.7 (1.0-1.7) Amylase Level 82 U/L (25-115) Lipase 334 U/L (73-393) Ethyl Alcohol Level < 10 mg/dL (0-10) Urine Collection Type Unknown Urine Color Yellow Urine Clarity Clear Urine pH 6.0 Urine Specific [place] 1.010 Urine Protein 100 mg/dL (NEG-TRACE) Urine Glucose (UA) Negative mg/dL (NEG) Urine Ketones (Stick) Negative mg/dL (NEG) Urine Blood Negative (NEG) Urine Nitrite Negative (NEG) Urine Bilirubin Negative (NEG) Urine Urobilinogen Dipstick 0.2 mg/dL (0.2 mg/dL) Urine Leukocyte Esterase Trace (NEG) Urine RBC 0 /HPF (0-2) Urine WBC 1-4 /HPF (0-4) Urine Squamous Epithelial Cells Occ /LPF Urine Bacteria Mod /HPF (0-FEW) Urine Opiates Screen Neg (NEG) Urine Methadone Screen Neg (NEG) Urine Barbiturates Pos (NEG) Urine Phencyclidine Screen Neg (NEG) Urine Amphetamine/Methamphetamine Neg (NEG) Urine Benzodiazepines Screen Pos (NEG) Urine Cocaine Screen Neg (NEG) Urine Cannabinoids Screen Neg (NEG) Urine Ethyl Alcohol Neg (NEG) Laboratory Tests Test 02/17/18 19:05 02/17/18 20:13 02/18/18 09:00 White Blood Count 8.0 x10^3/uL (4.0-11.0) 7.6 x10^3/uL (4.0-11.0) Red Blood Count 4.80 x10^6/uL (3.50-5.40) 4.43 x10^6/uL (3.50-5.40) Hemoglobin 12.9 g/dL (12.0-15.5) 11.8 g/dL (12.0-15.5) Hematocrit 39.4 % (36.0-47.0) 36.6 % (36.0-47.0) Mean Corpuscular Volume 82 fL (79-100) 83 fL (79-100) Mean Corpuscular Hemoglobin 27 pg (25-35) 27 pg (25-35) Mean Corpuscular Hemoglobin Concent 33 g/dL (31-37) 32 g/dL (31-37) Red Cell Distribution Width 18.1 % (11.5-14.5) 18.4 % (11.5-14.5) Platelet Count 467 x10^3/uL (140-400) 413 x10^3/uL (140-400) Neutrophils (%) (Auto) 50 % (31-73) 41 % (31-73) Lymphocytes (%) (Auto) 38 % (24-48) 41 % (24-48) Monocytes (%) (Auto) 11 % (0-9) 12 % (0-9) Eosinophils (%) (Auto) 1 % (0-3) 3 % (0-3) Basophils (%) (Auto) 1 % (0-3) 3 % (0-3) Neutrophils # (Auto) 4.0 x10^3uL (1.8-7.7) 3.1 x10^3uL (1.8-7.7) Lymphocytes # (Auto) 3.0 x10^3/uL (1.0-4.8) 3.1 x10^3/uL (1.0-4.8) Monocytes # (Auto) 0.9 x10^3/uL (0.0-1.1) 0.9 x10^3/uL (0.0-1.1) Eosinophils # (Auto) 0.1 x10^3/uL (0.0-0.7) 0.2 x10^3/uL (0.0-0.7) Basophils # (Auto) 0.0 x10^3/uL (0.0-0.2) 0.2 x10^3/uL (0.0-0.2) Sodium Level 137 mmol/L (136-145) 134 mmol/L (136-145) Potassium Level 2.9 mmol/L (3.5-5.1) 3.2 mmol/L (3.5-5.1) Chloride Level 95 mmol/L (98-107) 98 mmol/L (98-107) Carbon Dioxide Level 33 mmol/L (21-32) 30 mmol/L (21-32) Anion Gap 9 (6-14) 6 (6-14) Blood Urea Nitrogen 22 mg/dL (7-20) 18 mg/dL (7-20) Creatinine 3.0 mg/dL (0.6-1.0) 2.7 mg/dL (0.6-1.0) Estimated GFR (Cockcroft-Gault) 15.9 17.9 BUN/Creatinine Ratio 7 (6-20) Glucose Level 120 mg/dL (70-99) 125 mg/dL (70-99) Calcium Level 10.5 mg/dL (8.5-10.1) 9.6 mg/dL (8.5-10.1) Magnesium Level 1.8 mg/dL (1.8-2.4) Total Bilirubin 0.2 mg/dL (0.2-1.0) Aspartate Amino Transf (AST/SGOT) 27 U/L (15-37) Alanine Aminotransferase (ALT/SGPT) 17 U/L (14-59) Alkaline Phosphatase 86 U/L (46-116) Troponin I Quantitative < 0.017 ng/mL (0.000-0.055) Total Protein 8.5 g/dL (6.4-8.2) Albumin 3.6 g/dL (3.4-5.0) Albumin/Globulin Ratio 0.7 (1.0-1.7) Amylase Level 82 U/L (25-115) Lipase 334 U/L (73-393) Ethyl Alcohol Level < 10 mg/dL (0-10) Urine Collection Type Unknown Urine Color Yellow Urine Clarity Clear Urine pH 6.0 Urine Specific [place] 1.010 Urine Protein 100 mg/dL (NEG-TRACE) Urine Glucose (UA) Negative mg/dL (NEG) Urine Ketones (Stick) Negative mg/dL (NEG) Urine Blood Negative (NEG) Urine Nitrite Negative (NEG) Urine Bilirubin Negative (NEG) Urine Urobilinogen Dipstick 0.2 mg/dL (0.2 mg/dL) Urine Leukocyte Esterase Trace (NEG) Urine RBC 0 /HPF (0-2) Urine WBC 1-4 /HPF (0-4) Urine Squamous Epithelial Cells Occ /LPF Urine Bacteria Mod /HPF (0-FEW) Urine Opiates Screen Neg (NEG) Urine Methadone Screen Neg (NEG) Urine Barbiturates Pos (NEG) Urine Phencyclidine Screen Neg (NEG) Urine Amphetamine/Methamphetamine Neg (NEG) Urine Benzodiazepines Screen Pos (NEG) Urine Cocaine Screen Neg (NEG) Urine Cannabinoids Screen Neg (NEG) Urine Ethyl Alcohol Neg (NEG) Review All relevant outside records, renal labs, imaging studies, telemetry/EKG's were reviewed. Images Images Cxr ---- No pulmonary consolidation or acute airspace disease. ALDAIR KRAFT MD Feb 18, 2018 11:46
[2018-02-18] MEDS: ALPRAZolam 0.5 MG TABLET PO SCH ×2 (12:56→21:00)
[2018-02-18] MEDS: amLODIPine BESYLATE 10 MG TABLET PO SCH (12:57)
[2018-02-18] MEDS ORDERED: POTASSIUM CHLORIDE 20 MEQ TABLET.ER. PO ONE (13:00)
--- NOTE | 2018-02-18 19:10 | CONS ---
DATE OF CONSULTATION: 02/18/2018 ATTENDING PHYSICIAN: Dr. Kc. The patient was seen at the request of Dr. Kc for rehab evaluation. HISTORY OF PRESENT ILLNESS: This is a 62-year-old female with chronic lower back pain status post previous lumbar spine surgery, also had gone through epidural steroid injection without much help. She was admitted on 02/19/2018 with severe back pain. She apparently was in bed for about a week or so. The patient denies any specific new injury. The patient is status post left total knee arthroplasty in the past. She lives with her daughter, usually walks using a walker. She had osteoarthritis of her right knee, but Dr. Restrepo, orthopedic surgeon, felt she is a high risk for any consideration of total knee arthroplasty. PHYSICAL EXAMINATION: Today revealed a middle-aged female. She is alert, oriented to time, place, person and circumstance and follows commands appropriately. She is in no acute distress. She had painful limited movements of her lumbar spine without any paraspinal muscle spasm and tenderness to palpation over lumbar paraspinal muscles extending over to sacroiliac joint area and straight leg raising test is negative bilaterally. She had 5/5 grade muscle strength in her upper and lower extremities with relatively increased weakness in left foot dorsiflexor muscles. The patient had deformed toes in that big toe and second toe, had much wider space in between. The patient had crepitus on range of motion of her right knee joint without any obvious knee joint ligamentous laxity. Mild knee joint effusion was noted. She had pain free range of motion on both hip joints. The patient had equal perception of touch and pinprick sensation bilaterally. She is independent with bed mobility and transfers. I have not tested her ambulation skills at present time. She had lumbar corset at home. She uses sometimes while she is doing some household tasks. ASSESSMENT: A middle-aged female with chronic lower back pain from degenerative disk disease and degenerative joint disease of lumbar vertebrae with left lumbar radiculitis, degenerative joint disease of her right knee, status post left total knee arthroplasty, chronic renal failure. RECOMMENDATION: To get her up as tolerated. I have offered her trigger point injection to her lumbar paraspinals and sacral joint area. She is not interested as epidural steroid injection did not help much. Dr. Kc, I appreciate asking me to participate in the care of this interesting patient. I will be glad to follow her with you as needed for her rehabilitation. UCHE RASCON MD DR: ARIS/hal JOB#: [id number] / [id number]
[2018-02-19] MEDS: POTASSIUM CL 20MEQ D5-0.45NACL 1,000 ML IV SCH ×2 (00:48→11:09)
[2018-02-19] MEDS: oxyCODONE IR 5 MG TABLET PO PRN ×2 (00:51→15:13)
[2018-02-19 03:00] VITALS: BP 141/85
[2018-02-19] MEDS: ALPRAZolam 1 MG TABLET PO PRN (03:15)
[2018-02-19] MEDS: PANTOPRAZOLE 40 MG TABLET.DR. PO SCH (05:38)
[2018-02-19] MEDS: ONDANSETRON ODT 4 MG TAB.RAPDIS. PO SCH ×3 (05:38→21:03)
[2018-02-19 07:00] VITALS: BP 149/88
[2018-02-19] MEDS: oxyCODONE/APAP 7.5/325 1 TAB TABLET PO SCH ×4 (07:50→21:03)
[2018-02-19] MEDS: amLODIPine BESYLATE 10 MG TABLET PO SCH (07:51)
[2018-02-19] MEDS: ALPRAZolam 0.5 MG TABLET PO SCH ×3 (07:51→21:03)
[2018-02-19] MEDS: POTASSIUM CHLORIDE 20 MEQ TABLET.ER. PO SCH (07:51)
[2018-02-19] MEDS: DULoxetine HCL 30 MG CAPSULE.DR PO SCH (07:52)
[2018-02-19] MEDS: LIDOCAINE (700MG/PATCH) PATCH. TD SCH (07:53)
[2018-02-19 08:56] LABS: ALBUMIN 2.7 g/dL (3.4-5.0); CALCIUM 9.1 mg/dL (8.5-10.1); CREATININE 2.5 mg/dL (0.6-1.0); GFR 19.6; PHOSPHORUS 2.6 mg/dL (2.6-4.7); POTASSIUM 4.9 mmol/L (3.5-5.1)
[2018-02-19] MEDS ORDERED: methylPREDNISolone ACETATE 40 MG/ML VIAL. IM ONE (10:00)
[2018-02-19] MEDS ORDERED: BUPIVACAINE MPF 0.25% 10 ML VIAL. IJ ONE (10:00)
--- NOTE | 2018-02-19 10:11 | PDOC ---
PROGRESS NOTES Subjective Subjective She admits continued low back pain disturbing her sleep and wants to try injections to her low back. Objective Objective Vital Signs Date Time Temp Pulse Resp B/P (MAP) Pulse Ox O2 Delivery O2 Flow Rate FiO2 02/19/18 09:14 Room Air 02/19/18 07:51 76 149/88 02/19/18 07:00 97.8 20 98 97.8 Intake and Output 02/19/18 07:00 Intake Total 1960 ml Output Total 0 ml Balance 1960 ml Intake Oral 1960 ml Output Urine Total 0 ml # Voids 1 Physical Exam Physical Exam She is supine in bed and comfortable but continues with painfully limited lumbar spine ROM with tenderness to palpation over sacroiliac joints,lumbar paraspinal muscles and residual weakness of left foot dorsiflexor muscles. Assessment Assessment Problems Medical Problems: (1) Acute renal failure superimposed on chronic kidney disease Status: Acute (2) Hypokalemia Status: Acute (3) Vomiting and diarrhea Status: Acute Plan Plan of Care At her request,I have injected painful left sacroiliac joint under aseptic skin technique with marcaine and depomedrol solution and she tolerated the procedure satisfactorily without any side effects. Home when medically stable. Comment Review of Relevant I have reviewed the following items blade (where applicable) has been applied. Labs Laboratory Tests Test 02/17/18 19:05 02/17/18 20:13 02/18/18 09:00 02/19/18 08:25 White Blood Count 8.0 x10^3/uL (4.0-11.0) 7.6 x10^3/uL (4.0-11.0) Red Blood Count 4.80 x10^6/uL (3.50-5.40) 4.43 x10^6/uL (3.50-5.40) Hemoglobin 12.9 g/dL (12.0-15.5) 11.8 g/dL (12.0-15.5) Hematocrit 39.4 % (36.0-47.0) 36.6 % (36.0-47.0) Mean Corpuscular Volume 82 fL (79-100) 83 fL (79-100) Mean Corpuscular Hemoglobin 27 pg (25-35) 27 pg (25-35) Mean Corpuscular Hemoglobin Concent 33 g/dL (31-37) 32 g/dL (31-37) Red Cell Distribution Width 18.1 % (11.5-14.5) 18.4 % (11.5-14.5) Platelet Count 467 x10^3/uL (140-400) 413 x10^3/uL (140-400) Neutrophils (%) (Auto) 50 % (31-73) 41 % (31-73) Lymphocytes (%) (Auto) 38 % (24-48) 41 % (24-48) Monocytes (%) (Auto) 11 % (0-9) 12 % (0-9) Eosinophils (%) (Auto) 1 % (0-3) 3 % (0-3) Basophils (%) (Auto) 1 % (0-3) 3 % (0-3) Neutrophils # (Auto) 4.0 x10^3uL (1.8-7.7) 3.1 x10^3uL (1.8-7.7) Lymphocytes # (Auto) 3.0 x10^3/uL (1.0-4.8) 3.1 x10^3/uL (1.0-4.8) Monocytes # (Auto) 0.9 x10^3/uL (0.0-1.1) 0.9 x10^3/uL (0.0-1.1) Eosinophils # (Auto) 0.1 x10^3/uL (0.0-0.7) 0.2 x10^3/uL (0.0-0.7) Basophils # (Auto) 0.0 x10^3/uL (0.0-0.2) 0.2 x10^3/uL (0.0-0.2) Sodium Level 137 mmol/L (136-145) 134 mmol/L (136-145) 134 mmol/L (136-145) Potassium Level 2.9 mmol/L (3.5-5.1) 3.2 mmol/L (3.5-5.1) 4.9 mmol/L (3.5-5.1) Chloride Level 95 mmol/L (98-107) 98 mmol/L (98-107) 102 mmol/L (98-107) Carbon Dioxide Level 33 mmol/L (21-32) 30 mmol/L (21-32) 31 mmol/L (21-32) Anion Gap 9 (6-14) 6 (6-14) 1 (6-14) Blood Urea Nitrogen 22 mg/dL (7-20) 18 mg/dL (7-20) 16 mg/dL (7-20) Creatinine 3.0 mg/dL (0.6-1.0) 2.7 mg/dL (0.6-1.0) 2.5 mg/dL (0.6-1.0) Estimated GFR (Cockcroft-Gault) 15.9 17.9 19.6 BUN/Creatinine Ratio 7 (6-20) Glucose Level 120 mg/dL (70-99) 125 mg/dL (70-99) 105 mg/dL (70-99) Calcium Level 10.5 mg/dL (8.5-10.1) 9.6 mg/dL (8.5-10.1) 9.1 mg/dL (8.5-10.1) Magnesium Level 1.8 mg/dL (1.8-2.4) Total Bilirubin 0.2 mg/dL (0.2-1.0) Aspartate Amino Transf (AST/SGOT) 27 U/L (15-37) Alanine Aminotransferase (ALT/SGPT) 17 U/L (14-59) Alkaline Phosphatase 86 U/L (46-116) Troponin I Quantitative < 0.017 ng/mL (0.000-0.055) Total Protein 8.5 g/dL (6.4-8.2) Albumin 3.6 g/dL (3.4-5.0) 2.7 g/dL (3.4-5.0) Albumin/Globulin Ratio 0.7 (1.0-1.7) Amylase Level 82 U/L (25-115) Lipase 334 U/L (73-393) Ethyl Alcohol Level < 10 mg/dL (0-10) Urine Collection Type Unknown Urine Color Yellow Urine Clarity Clear Urine pH 6.0 Urine Specific [place] 1.010 Urine Protein 100 mg/dL (NEG-TRACE) Urine Glucose (UA) Negative mg/dL (NEG) Urine Ketones (Stick) Negative mg/dL (NEG) Urine Blood Negative (NEG) Urine Nitrite Negative (NEG) Urine Bilirubin Negative (NEG) Urine Urobilinogen Dipstick 0.2 mg/dL (0.2 mg/dL) Urine Leukocyte Esterase Trace (NEG) Urine RBC 0 /HPF (0-2) Urine WBC 1-4 /HPF (0-4) Urine Squamous Epithelial Cells Occ /LPF Urine Bacteria Mod /HPF (0-FEW) Urine Opiates Screen Neg (NEG) Urine Methadone Screen Neg (NEG) Urine Barbiturates Pos (NEG) Urine Phencyclidine Screen Neg (NEG) Urine Amphetamine/Methamphetamine Neg (NEG) Urine Benzodiazepines Screen Pos (NEG) Urine Cocaine Screen Neg (NEG) Urine Cannabinoids Screen Neg (NEG) Urine Ethyl Alcohol Neg (NEG) Phosphorus Level 2.6 mg/dL (2.6-4.7) Laboratory Tests Test 02/19/18 08:25 Sodium Level 134 mmol/L (136-145) Potassium Level 4.9 mmol/L (3.5-5.1) Chloride Level 102 mmol/L (98-107) Carbon Dioxide Level 31 mmol/L (21-32) Anion Gap 1 (6-14) Blood Urea Nitrogen 16 mg/dL (7-20) Creatinine 2.5 mg/dL (0.6-1.0) Estimated GFR (Cockcroft-Gault) 19.6 Glucose Level 105 mg/dL (70-99) Calcium Level 9.1 mg/dL (8.5-10.1) Phosphorus Level 2.6 mg/dL (2.6-4.7) Albumin 2.7 g/dL (3.4-5.0) Medications Current Medications Sodium Chloride 1,000 ml @ 150 mls/hr Q6H40M IV Last administered on at 19:00; Start 02/17/18 at 19:00; Stop 02/17/18 at 21:46; Status DC Potassium Chloride (Klor-Con) 40 meq 1X ONCE PO Last administered on at 21:39; Start 02/17/18 at 21:30; Stop 02/17/18 at 21:31; Status DC Magnesium Sulfate 50 ml @ 25 mls/hr 1X ONCE IV Last administered on 02/18/18at 02:43; Start 02/17/18 at 22:00; Stop 02/17/18 at 23:59; Status DC Potassium Chloride (Klor-Con) 20 meq DAILY PO Last administered on 02/19/18at 07 :51; Start 02/18/18 at 09:00 Alprazolam (Xanax) 1 mg PRN TID PRN PO ANXIETY / AGITATION Last administered on 02/19/18 03:15; Start 02/17/18 at 21:45 Duloxetine HCl (Cymbalta) 90 mg DAILY PO Last administered on 02/19/18 07:52; Start 02/18/18 at 09:00 Ondansetron HCl (Zofran Odt) 4 mg Q8HRS PO Last administered on 02/19/18 05:38 ; Start 02/17/18 at 22:00 Oxycodone/ Acetaminophen (Percocet 7.5/ 325) 1 tab QID PO Last administered on 02/19/18 07:50; Start 02/18/18 at 09:00 Pantoprazole Sodium (Protonix) 40 mg DAILYAC PO Last administered on 02/19/18 05:38; Start 02/18/18 at 07:30 Oxycodone HCl (Roxicodone) 10 mg PRN Q6HRS PRN PO BREAKTHRU PAIN Last administered on 02/19/18 00:51; Start 02/17/18 at 22:00 Lidocaine (Lidoderm) 1 patch DAILY TD Last administered on 02/19/18 07:53; Start 02/18/18 at 09:00 Potassium Chloride/Dextrose/ Sod Cl 1,000 ml @ 100 mls/hr Q10H IV Last administered on 02/19/18at 00:48; Start 02/17/18 at 22:00 Potassium Chloride (Klor-Con) 20 meq 1X ONCE PO Last administered on at 12:57; Start 02/18/18 at 13:00; Stop 02/18/18 at 13:01; Status DC Alprazolam (Xanax) 0.5 mg TID PO Last administered on 02/19/18 07:51; Start at 14:00 Amlodipine Besylate (Norvasc) 10 mg DAILY PO Last administered on 02/19/18 07: 51; Start 02/18/18 at 13:00 Methylprednisolone Acetate (DEPO-Medrol 40MG VIAL) 40 mg 1X ONCE IM ; Start at 10:00; Stop 02/19/18 at 10:01; Status DC Bupivacaine HCl (Sensorcaine-Mpf 0.25%) 10 ml 1X ONCE IJ ; Start 02/19/18 at 10 :00; Stop 02/19/18 at 10:01; Status DC Active Scripts Active Zofran Odt (Ondansetron) 4 Mg Tab.rapdis 1 Tab SL Q8HRS Percocet 7.5-325 Mg Tablet (Oxycodone/Acetaminophen) 1 Each Tablet 1 Tab PO QID Keflex (Cephalexin) 250 Mg Capsule 1 Cap PO TID Cymbalta (Duloxetine Hcl) 30 Mg Capsule.dr 90 Mg PO DAILY 30 Days Oxycodone Hcl 10 Mg Tablet 1 Tab PO PRN Q6HRS PRN 30 Days Alprazolam 0.5 Mg Tablet 1 Tab PO TID 30 Days Reported Amlodipine Besylate 10 Mg Tablet 10 Mg PO DAILY Alprazolam 1 Mg Tablet 1 Mg PO PRN TID PRN Nexium Capsule (Esomeprazole Magnesium) 40 Mg Capsule.dr 1 Cap PO DAILY Vitals/I & O Vital Sign - Last 24 Hours 02/18/18 02/18/18 02/18/18 02/18/18 11:00 12:56 12:57 13:56 Temp 97.9 97.9 Pulse 79 79 Resp 20 16 14 B/P (MAP) 156/92 (113) 156/92 Pulse Ox 93 O2 Delivery Room Air Room Air 02/18/18 02/18/18 02/18/18 02/18/18 15:00 17:45 19:00 20:00 Temp 97.9 98.5 97.9 98.5 Pulse 79 94 Resp 20 16 18 B/P (MAP) 156/92 (113) 148/87 (107) Pulse Ox 93 93 95 O2 Delivery Room Air Room Air Room Air 02/18/18 02/18/18 02/19/18 02/19/18 20:59 23:00 00:51 02:16 Temp 98.6 98.6 Pulse 75 Resp 18 B/P (MAP) 137/87 (104) Pulse Ox 94 O2 Delivery Room Air Room Air Room Air 02/19/18 02/19/18 02/19/18 02/19/18 03:00 07:00 07:50 07:51 Temp 98.3 97.8 98.3 97.8 Pulse 77 76 76 Resp 18 20 B/P (MAP) 141/85 (103) 149/88 (108) 149/88 Pulse Ox 96 98 O2 Delivery Room Air Room Air 02/19/18 02/19/18 08:00 09:14 O2 Delivery Room Air Room Air Intake and Output 02/18/18 02/18/18 02/19/18 15:00 23:00 07:00 Intake Total 520 ml 1440 ml Output Total 0 ml Balance 520 ml 1440 ml 0 ml UCHE RASCON MD Feb 19, 2018 10:11
--- NOTE | 2018-02-19 10:49 | PDOC ---
SUBJECTIVE ROS No new concerns OBJECTIVE Vital Signs Vital Signs Date Time Temp Pulse Resp B/P (MAP) Pulse Ox O2 Delivery O2 Flow Rate FiO2 02/19/18 09:14 Room Air 02/19/18 07:51 76 149/88 02/19/18 07:00 97.8 20 98 97.8 I & 0 Intake and Output 02/19/18 07:00 Intake Total 1960 ml Output Total 0 ml Balance 1960 ml Intake Oral 1960 ml Output Urine Total 0 ml # Voids 1 PHYSICAL EXAM Physical Exam General: NAD HEENT: OM moist neck Supple Lungs: Clear to auscultation Bilat, Non labored Heart - RRR, ANJELICA+ no gallops Abdomen: Normal bowel sounds, Soft Extremities: No edema Skin: No rashes Neuro: Grossly Normal Skin No rash - No [place] , No CVA or SP tenderness DIAGNOSIS/ASSESSMENT Assessment & Plan AK I on CKD :Multifactorial- prerenal , ?LUGO(neurogenic bladder), decreased PO intake Improving 2.5 <-- 3 Multiple Hospitalizations with [facility] Please get Bladder scan , Does Self cath at home , SP catheter was removed by Urology due to UTI's Last Visit Pre--void 600 cc of Urine - Post Void 400 No e/o UTI , Current FLuid and electrolyte status does not necessitate emergent need for Dialysis 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 Presumably due to history of neurogenic bladder and noncompliance with self catheter possible reflux nephropathy She reports she follows with Dr. Crawford, Neph- hasnt seen him recently as she has been Hospitalized x 3 in past 1 Month Hypokalemia -Normal Monitor and replace as needed Hypercalcemia- likely sec to Dehydration Resolved today Anemia - Hgb stable HTN- Stable CT scan-- 1. There is atrophy of the kidneys, right greater than left. There is increased echogenicity of the renal parenchyma suggestive of medical renal disease. There is mild dilatation of the renal collecting systems, improved since the examination from 09/03/2017. Findings may be secondary to chronic urinary retention. 2. No evidence for cholelithiasis. COMMENT/RELEVANT DATA Meds Current Medications Medications (Trade) Dose Ordered Sig/Taz Start Time Stop Time Status Last Admin Dose Admin Alprazolam (Xanax) 0.5 mg TID 02/18/18 14:00 02/19/18 07:51 0.5 MG Amlodipine Besylate (Norvasc) 10 mg DAILY 02/18/18 13:00 02/19/18 07:51 10 MG Bupivacaine HCl (Sensorcaine-Mpf 0.25%) 10 ml 1X ONCE 02/19/18 10:00 02/19/18 10:01 DC Duloxetine HCl (Cymbalta) 90 mg DAILY 02/18/18 09:00 02/19/18 07:52 90 MG Lidocaine (Lidoderm) 1 patch DAILY 02/18/18 09:00 02/19/18 07:53 1 PATCH Magnesium Sulfate 50 ml @ 25 mls/hr 1X ONCE 02/17/18 22:00 02/17/18 23:59 DC 02/18/18 02:43 25 MLS/HR Methylprednisolone Acetate (DEPO-Medrol 40MG VIAL) 40 mg 1X ONCE 02/19/18 10:00 02/19/18 10:01 DC Ondansetron HCl (Zofran Odt) 4 mg Q8HRS 02/17/18 22:00 02/19/18 05:38 4 MG Oxycodone HCl (Roxicodone) 10 mg PRN Q6HRS PRN 02/17/18 22:00 02/19/18 00:51 10 MG Oxycodone/ Acetaminophen (Percocet 7.5/ 325) 1 tab QID 02/18/18 09:00 02/19/18 07:50 1 TAB Pantoprazole Sodium (Protonix) 40 mg DAILYAC 02/18/18 07:30 02/19/18 05:38 40 MG Potassium Chloride/Dextrose/ Sod Cl 1,000 ml @ 100 mls/hr Q10H 02/17/18 22:00 02/19/18 00:48 100 MLS/HR Potassium Chloride (Klor-Con) 20 meq 1X ONCE 02/18/18 13:00 02/18/18 13:01 DC 02/18/18 12:57 20 MEQ Sodium Chloride 1,000 ml @ 150 mls/hr Q6H40M 02/17/18 19:00 02/17/18 21:46 DC 02/17/18 19:00 150 MLS/HR Lab Laboratory Tests Test 02/19/18 08:25 Sodium Level 134 mmol/L (136-145) Potassium Level 4.9 mmol/L (3.5-5.1) Chloride Level 102 mmol/L (98-107) Carbon Dioxide Level 31 mmol/L (21-32) Anion Gap 1 (6-14) Blood Urea Nitrogen 16 mg/dL (7-20) Creatinine 2.5 mg/dL (0.6-1.0) Estimated GFR (Cockcroft-Gault) 19.6 Glucose Level 105 mg/dL (70-99) Calcium Level 9.1 mg/dL (8.5-10.1) Phosphorus Level 2.6 mg/dL (2.6-4.7) Albumin 2.7 g/dL (3.4-5.0) Results All relevant outside records, renal labs, imaging studies, telemetry/EKG's were reviewed. ALDAIR KRAFT MD Feb 19, 2018 10:49
[2018-02-19 11:28] VITALS: BP 134/77
--- NOTE | 2018-02-19 13:01 | PDOC ---
PROGRESS NOTES History of Present Illness History of Present Illness Assessment/Plan Assessment/Plan acute renal failure, on CKD 3, vasomotor nephropathy, appears dry, or ATN on CKD, renal following hypokalemia hypochloremia weakness and debility acute on chronic back pain with narcotic dependence, GERD, gastritis discussed home dietary changes RENAL FOLLOWING inc fluid intake bladder scan PT/OT Vitals Vitals Vital Signs Date Time Temp Pulse Resp B/P (MAP) Pulse Ox O2 Delivery O2 Flow Rate FiO2 02/19/18 12:47 Room Air 02/19/18 11:28 98.4 78 20 134/77 (96) 96 98.4 Physical Exam General: Alert, Oriented X3, Cooperative, No acute distress, mild distress, moderate distress Heart: Regular rate, Normal S1 Lungs: Clear Abdomen: Normal bowel sounds, Soft, Other (mid diffuse TTP) Extremities: No clubbing, No cyanosis, No edema Skin: No rashes, No significant lesion Labs LABS Laboratory Tests Test 02/19/18 08:25 Sodium Level 134 mmol/L (136-145) Potassium Level 4.9 mmol/L (3.5-5.1) Chloride Level 102 mmol/L (98-107) Carbon Dioxide Level 31 mmol/L (21-32) Anion Gap 1 (6-14) Blood Urea Nitrogen 16 mg/dL (7-20) Creatinine 2.5 mg/dL (0.6-1.0) Estimated GFR (Cockcroft-Gault) 19.6 Glucose Level 105 mg/dL (70-99) Calcium Level 9.1 mg/dL (8.5-10.1) Phosphorus Level 2.6 mg/dL (2.6-4.7) Albumin 2.7 g/dL (3.4-5.0) Assessment and Plan Assessmemt and Plan Problems Medical Problems: (1) Acute renal failure superimposed on chronic kidney disease Status: Acute (2) Hypokalemia Status: Acute (3) Vomiting and diarrhea Status: Acute Comment Review of Relevant I have reviewed the following items blade (where applicable) has been applied. Labs Laboratory Tests Test 02/17/18 19:05 02/17/18 20:13 02/18/18 09:00 02/19/18 08:25 White Blood Count 8.0 x10^3/uL (4.0-11.0) 7.6 x10^3/uL (4.0-11.0) Red Blood Count 4.80 x10^6/uL (3.50-5.40) 4.43 x10^6/uL (3.50-5.40) Hemoglobin 12.9 g/dL (12.0-15.5) 11.8 g/dL (12.0-15.5) Hematocrit 39.4 % (36.0-47.0) 36.6 % (36.0-47.0) Mean Corpuscular Volume 82 fL (79-100) 83 fL (79-100) Mean Corpuscular Hemoglobin 27 pg (25-35) 27 pg (25-35) Mean Corpuscular Hemoglobin Concent 33 g/dL (31-37) 32 g/dL (31-37) Red Cell Distribution Width 18.1 % (11.5-14.5) 18.4 % (11.5-14.5) Platelet Count 467 x10^3/uL (140-400) 413 x10^3/uL (140-400) Neutrophils (%) (Auto) 50 % (31-73) 41 % (31-73) Lymphocytes (%) (Auto) 38 % (24-48) 41 % (24-48) Monocytes (%) (Auto) 11 % (0-9) 12 % (0-9) Eosinophils (%) (Auto) 1 % (0-3) 3 % (0-3) Basophils (%) (Auto) 1 % (0-3) 3 % (0-3) Neutrophils # (Auto) 4.0 x10^3uL (1.8-7.7) 3.1 x10^3uL (1.8-7.7) Lymphocytes # (Auto) 3.0 x10^3/uL (1.0-4.8) 3.1 x10^3/uL (1.0-4.8) Monocytes # (Auto) 0.9 x10^3/uL (0.0-1.1) 0.9 x10^3/uL (0.0-1.1) Eosinophils # (Auto) 0.1 x10^3/uL (0.0-0.7) 0.2 x10^3/uL (0.0-0.7) Basophils # (Auto) 0.0 x10^3/uL (0.0-0.2) 0.2 x10^3/uL (0.0-0.2) Sodium Level 137 mmol/L (136-145) 134 mmol/L (136-145) 134 mmol/L (136-145) Potassium Level 2.9 mmol/L (3.5-5.1) 3.2 mmol/L (3.5-5.1) 4.9 mmol/L (3.5-5.1) Chloride Level 95 mmol/L (98-107) 98 mmol/L (98-107) 102 mmol/L (98-107) Carbon Dioxide Level 33 mmol/L (21-32) 30 mmol/L (21-32) 31 mmol/L (21-32) Anion Gap 9 (6-14) 6 (6-14) 1 (6-14) Blood Urea Nitrogen 22 mg/dL (7-20) 18 mg/dL (7-20) 16 mg/dL (7-20) Creatinine 3.0 mg/dL (0.6-1.0) 2.7 mg/dL (0.6-1.0) 2.5 mg/dL (0.6-1.0) Estimated GFR (Cockcroft-Gault) 15.9 17.9 19.6 BUN/Creatinine Ratio 7 (6-20) Glucose Level 120 mg/dL (70-99) 125 mg/dL (70-99) 105 mg/dL (70-99) Calcium Level 10.5 mg/dL (8.5-10.1) 9.6 mg/dL (8.5-10.1) 9.1 mg/dL (8.5-10.1) Magnesium Level 1.8 mg/dL (1.8-2.4) Total Bilirubin 0.2 mg/dL (0.2-1.0) Aspartate Amino Transf (AST/SGOT) 27 U/L (15-37) Alanine Aminotransferase (ALT/SGPT) 17 U/L (14-59) Alkaline Phosphatase 86 U/L (46-116) Troponin I Quantitative < 0.017 ng/mL (0.000-0.055) Total Protein 8.5 g/dL (6.4-8.2) Albumin 3.6 g/dL (3.4-5.0) 2.7 g/dL (3.4-5.0) Albumin/Globulin Ratio 0.7 (1.0-1.7) Amylase Level 82 U/L (25-115) Lipase 334 U/L (73-393) Ethyl Alcohol Level < 10 mg/dL (0-10) Urine Collection Type Unknown Urine Color Yellow Urine Clarity Clear Urine pH 6.0 Urine Specific [place] 1.010 Urine Protein 100 mg/dL (NEG-TRACE) Urine Glucose (UA) Negative mg/dL (NEG) Urine Ketones (Stick) Negative mg/dL (NEG) Urine Blood Negative (NEG) Urine Nitrite Negative (NEG) Urine Bilirubin Negative (NEG) Urine Urobilinogen Dipstick 0.2 mg/dL (0.2 mg/dL) Urine Leukocyte Esterase Trace (NEG) Urine RBC 0 /HPF (0-2) Urine WBC 1-4 /HPF (0-4) Urine Squamous Epithelial Cells Occ /LPF Urine Bacteria Mod /HPF (0-FEW) Urine Opiates Screen Neg (NEG) Urine Methadone Screen Neg (NEG) Urine Barbiturates Pos (NEG) Urine Phencyclidine Screen Neg (NEG) Urine Amphetamine/Methamphetamine Neg (NEG) Urine Benzodiazepines Screen Pos (NEG) Urine Cocaine Screen Neg (NEG) Urine Cannabinoids Screen Neg (NEG) Urine Ethyl Alcohol Neg (NEG) Phosphorus Level 2.6 mg/dL (2.6-4.7) Laboratory Tests Test 02/19/18 08:25 Sodium Level 134 mmol/L (136-145) Potassium Level 4.9 mmol/L (3.5-5.1) Chloride Level 102 mmol/L (98-107) Carbon Dioxide Level 31 mmol/L (21-32) Anion Gap 1 (6-14) Blood Urea Nitrogen 16 mg/dL (7-20) Creatinine 2.5 mg/dL (0.6-1.0) Estimated GFR (Cockcroft-Gault) 19.6 Glucose Level 105 mg/dL (70-99) Calcium Level 9.1 mg/dL (8.5-10.1) Phosphorus Level 2.6 mg/dL (2.6-4.7) Albumin 2.7 g/dL (3.4-5.0) Medications Current Medications Sodium Chloride 1,000 ml @ 150 mls/hr Q6H40M IV Last administered on 19:00; Start 02/17/18 at 19:00; Stop 02/17/18 at 21:46; Status DC Potassium Chloride (Klor-Con) 40 meq 1X ONCE PO Last administered on at 21:39; Start 02/17/18 at 21:30; Stop 02/17/18 at 21:31; Status DC Magnesium Sulfate 50 ml @ 25 mls/hr 1X ONCE IV Last administered on 02/18/18at 02:43; Start 02/17/18 at 22:00; Stop 02/17/18 at 23:59; Status DC Potassium Chloride (Klor-Con) 20 meq DAILY PO Last administered on 02/19/18 07 :51; Start 02/18/18 at 09:00 Alprazolam (Xanax) 1 mg PRN TID PRN PO ANXIETY / AGITATION Last administered on 02/19/18 03:15; Start 02/17/18 at 21:45 Duloxetine HCl (Cymbalta) 90 mg DAILY PO Last administered on 02/19/18 07:52; Start 02/18/18 at 09:00 Ondansetron HCl (Zofran Odt) 4 mg Q8HRS PO Last administered on 02/19/18 12:47 ; Start 02/17/18 at 22:00 Oxycodone/ Acetaminophen (Percocet 7.5/ 325) 1 tab QID PO Last administered on 02/19/18 12:47; Start 02/18/18 at 09:00 Pantoprazole Sodium (Protonix) 40 mg DAILYAC PO Last administered on 02/19/18at 05:38; Start 02/18/18 at 07:30 Oxycodone HCl (Roxicodone) 10 mg PRN Q6HRS PRN PO BREAKTHRU PAIN Last administered on 02/19/18 00:51; Start 02/17/18 at 22:00 Lidocaine (Lidoderm) 1 patch DAILY TD Last administered on 02/19/18 07:53; Start 02/18/18 at 09:00 Potassium Chloride/Dextrose/ Sod Cl 1,000 ml @ 100 mls/hr Q10H IV Last administered on 02/19/18at 11:09; Start 02/17/18 at 22:00 Potassium Chloride (Klor-Con) 20 meq 1X ONCE PO Last administered on at 12:57; Start 02/18/18 at 13:00; Stop 02/18/18 at 13:01; Status DC Alprazolam (Xanax) 0.5 mg TID PO Last administered on 02/19/18at 12:47; Start at 14:00 Amlodipine Besylate (Norvasc) 10 mg DAILY PO Last administered on 02/19/18at 07: 51; Start 02/18/18 at 13:00 Methylprednisolone Acetate (DEPO-Medrol 40MG VIAL) 40 mg 1X ONCE IM Last administered on 02/19/18at 10:00; Start 02/19/18 at 10:00; Stop 02/19/18 at 10:01 ; Status DC Bupivacaine HCl (Sensorcaine-Mpf 0.25%) 10 ml 1X ONCE IJ Last administered on 02/19/18at 10:00; Start 02/19/18 at 10:00; Stop 02/19/18 at 10:01; Status DC Active Scripts Active Zofran Odt (Ondansetron) 4 Mg Tab.rapdis 1 Tab SL Q8HRS Percocet 7.5-325 Mg Tablet (Oxycodone/Acetaminophen) 1 Each Tablet 1 Tab PO QID Keflex (Cephalexin) 250 Mg Capsule 1 Cap PO TID Cymbalta (Duloxetine Hcl) 30 Mg Capsule.dr 90 Mg PO DAILY 30 Days Oxycodone Hcl 10 Mg Tablet 1 Tab PO PRN Q6HRS PRN 30 Days Alprazolam 0.5 Mg Tablet 1 Tab PO TID 30 Days Reported Amlodipine Besylate 10 Mg Tablet 10 Mg PO DAILY Alprazolam 1 Mg Tablet 1 Mg PO PRN TID PRN Nexium Capsule (Esomeprazole Magnesium) 40 Mg Capsule.dr 1 Cap PO DAILY Vitals/I & O Vital Sign - Last 24 Hours 02/18/18 02/18/18 02/18/18 02/18/18 13:56 15:00 17:45 19:00 Temp 97.9 98.5 97.9 98.5 Pulse 79 94 Resp 14 20 16 18 B/P (MAP) 156/92 (113) 148/87 (107) Pulse Ox 93 93 95 O2 Delivery Room Air Room Air 02/18/18 02/18/18 02/18/18 02/19/18 20:00 20:59 23:00 00:51 Temp 98.6 98.6 Pulse 75 Resp 18 B/P (MAP) 137/87 (104) Pulse Ox 94 O2 Delivery Room Air Room Air Room Air 02/19/18 02/19/18 02/19/18 02/19/18 02:16 03:00 07:00 07:50 Temp 98.3 97.8 98.3 97.8 Pulse 77 76 Resp 18 20 B/P (MAP) 141/85 (103) 149/88 (108) Pulse Ox 96 98 O2 Delivery Room Air Room Air Room Air 02/19/18 02/19/18 02/19/18 02/19/18 07:51 08:00 09:14 11:28 Temp 98.4 98.4 Pulse 76 78 Resp 20 B/P (MAP) 149/88 134/77 (96) Pulse Ox 96 O2 Delivery Room Air Room Air Room Air 02/19/18 12:47 O2 Delivery Room Air Intake and Output 02/18/18 02/18/18 02/19/18 15:00 23:00 07:00 Intake Total 520 ml 1440 ml Output Total 0 ml Balance 520 ml 1440 ml 0 ml Nutrition Consultation Dietary Evaluation: Recommendations by RD: Dietary education by RD Comments: provided diet education on renal diet handouts given to use at d/c Expected Outcomes/Goals: improvement on food choices/ better compliance w/ renal diet Interpretation of weight loss: >1-2% in 1 week Malnutrition Findings: Food and Nutrition Intake (Mod: <75% est energy req 7days Weight Status: Appropriate WEI COLLINS MD Feb 19, 2018 13:01
[2018-02-19 15:54] VITALS: BP 133/87
[2018-02-19 19:00] VITALS: BP 144/86
[2018-02-19] MEDS ORDERED: ZOLPIDEM 5 MG TABLET. PO PRN (20:30)
[2018-02-19 23:00] VITALS: BP 141/84
[2018-02-20] MEDS: oxyCODONE IR 5 MG TABLET PO PRN ×2 (00:08→05:54)
[2018-02-20 03:00] VITALS: BP 145/89
[2018-02-20 04:23] LABS: BASO # 0.1 x10^3/uL (0.0-0.2); BASO % 2 % (0-3); EOS # 0.2 x10^3/uL (0.0-0.7); EOS % 4 % (0-3); HEMATOCRIT 33.2 % (36.0-47.0); HEMOGLOBIN 10.7 g/dL (12.0-15.5); LYMPH # 1.5 x10^3/uL (1.0-4.8); LYMPH % 26 % (24-48); MEAN CORPUSCULAR HEMOGLOBIN 27 pg (25-35); MEAN CORPUSCULAR HGB CONC 32 g/dL (31-37); MEAN CORPUSCULAR VOLUME 84 fL (79-100); MONO # 0.5 x10^3/uL (0.0-1.1); MONO % 9 % (0-9); NEUT # 3.6 x10^3uL (1.8-7.7); NEUT % 60 % (31-73); PLATELET COUNT 265 x10^3/uL (140-400); RED BLOOD COUNT 3.94 x10^6/uL (3.50-5.40); RED CELL DISTRIBUTION WIDTH 18.2 % (11.5-14.5); WHITE BLOOD COUNT 5.9 x10^3/uL (4.0-11.0)
[2018-02-20 04:46] LABS: ALBUMIN 2.9 g/dL (3.4-5.0); CALCIUM 9.3 mg/dL (8.5-10.1); CREATININE 2.4 mg/dL (0.6-1.0); GFR 20.5; PHOSPHORUS 3.3 mg/dL (2.6-4.7); POTASSIUM 4.6 mmol/L (3.5-5.1)
[2018-02-20] MEDS: ONDANSETRON ODT 4 MG TAB.RAPDIS. PO SCH ×3 (05:54→21:16)
[2018-02-20 07:00] VITALS: BP 132/47
[2018-02-20] MEDS: oxyCODONE/APAP 7.5/325 1 TAB TABLET PO SCH ×4 (08:12→21:16)
[2018-02-20] MEDS: DULoxetine HCL 30 MG CAPSULE.DR PO SCH (08:12)
[2018-02-20] MEDS: ALPRAZolam 0.5 MG TABLET PO SCH ×3 (08:12→21:16)
[2018-02-20] MEDS: PANTOPRAZOLE 40 MG TABLET.DR. PO SCH (08:13)
[2018-02-20] MEDS: amLODIPine BESYLATE 10 MG TABLET PO SCH (08:13)
[2018-02-20] MEDS: LIDOCAINE (700MG/PATCH) PATCH. TD SCH (08:13)
--- NOTE | 2018-02-20 10:12 | PDOC ---
PROGRESS NOTES Subjective Subjective She admits some help with left sacroiliac joint injection and would like to have refill of her medicines when she plans to go home tomorrow. Objective Objective Vital Signs Date Time Temp Pulse Resp B/P (MAP) Pulse Ox O2 Delivery O2 Flow Rate FiO2 02/20/18 09:12 Room Air 02/20/18 08:13 78 166/98 02/20/18 07:00 97.8 20 97 97.8 Intake and Output 02/20/18 07:00 Intake Total 1920 ml Output Total 650 ml Balance 1270 ml Intake Oral 1920 ml Output Urine Total 650 ml # Voids 2 Physical Exam Physical Exam She is alert,supine in bed and does not seem to be in any distress and she continues with left foot dorsiflexor muscle weakness and painfully limited lumbar spine and right knee joint ROM. Assessment Assessment Problems Medical Problems: (1) Acute renal failure superimposed on chronic kidney disease Status: Acute (2) Hypokalemia Status: Acute (3) Vomiting and diarrhea Status: Acute Plan Plan of Fdc when medically stable. Comment Review of Relevant I have reviewed the following items blade (where applicable) has been applied. Labs Laboratory Tests Test 02/19/18 08:25 02/20/18 02:55 Sodium Level 134 mmol/L (136-145) 135 mmol/L (136-145) Potassium Level 4.9 mmol/L (3.5-5.1) 4.6 mmol/L (3.5-5.1) Chloride Level 102 mmol/L (98-107) 103 mmol/L (98-107) Carbon Dioxide Level 31 mmol/L (21-32) 29 mmol/L (21-32) Anion Gap 1 (6-14) 3 (6-14) Blood Urea Nitrogen 16 mg/dL (7-20) 21 mg/dL (7-20) Creatinine 2.5 mg/dL (0.6-1.0) 2.4 mg/dL (0.6-1.0) Estimated GFR (Cockcroft-Gault) 19.6 20.5 Glucose Level 105 mg/dL (70-99) 117 mg/dL (70-99) Calcium Level 9.1 mg/dL (8.5-10.1) 9.3 mg/dL (8.5-10.1) Phosphorus Level 2.6 mg/dL (2.6-4.7) 3.3 mg/dL (2.6-4.7) Albumin 2.7 g/dL (3.4-5.0) 2.9 g/dL (3.4-5.0) White Blood Count 5.9 x10^3/uL (4.0-11.0) Red Blood Count 3.94 x10^6/uL (3.50-5.40) Hemoglobin 10.7 g/dL (12.0-15.5) Hematocrit 33.2 % (36.0-47.0) Mean Corpuscular Volume 84 fL (79-100) Mean Corpuscular Hemoglobin 27 pg (25-35) Mean Corpuscular Hemoglobin Concent 32 g/dL (31-37) Red Cell Distribution Width 18.2 % (11.5-14.5) Platelet Count 265 x10^3/uL (140-400) Neutrophils (%) (Auto) 60 % (31-73) Lymphocytes (%) (Auto) 26 % (24-48) Monocytes (%) (Auto) 9 % (0-9) Eosinophils (%) (Auto) 4 % (0-3) Basophils (%) (Auto) 2 % (0-3) Neutrophils # (Auto) 3.6 x10^3uL (1.8-7.7) Lymphocytes # (Auto) 1.5 x10^3/uL (1.0-4.8) Monocytes # (Auto) 0.5 x10^3/uL (0.0-1.1) Eosinophils # (Auto) 0.2 x10^3/uL (0.0-0.7) Basophils # (Auto) 0.1 x10^3/uL (0.0-0.2) Laboratory Tests Test 02/20/18 02:55 White Blood Count 5.9 x10^3/uL (4.0-11.0) Red Blood Count 3.94 x10^6/uL (3.50-5.40) Hemoglobin 10.7 g/dL (12.0-15.5) Hematocrit 33.2 % (36.0-47.0) Mean Corpuscular Volume 84 fL (79-100) Mean Corpuscular Hemoglobin 27 pg (25-35) Mean Corpuscular Hemoglobin Concent 32 g/dL (31-37) Red Cell Distribution Width 18.2 % (11.5-14.5) Platelet Count 265 x10^3/uL (140-400) Neutrophils (%) (Auto) 60 % (31-73) Lymphocytes (%) (Auto) 26 % (24-48) Monocytes (%) (Auto) 9 % (0-9) Eosinophils (%) (Auto) 4 % (0-3) Basophils (%) (Auto) 2 % (0-3) Neutrophils # (Auto) 3.6 x10^3uL (1.8-7.7) Lymphocytes # (Auto) 1.5 x10^3/uL (1.0-4.8) Monocytes # (Auto) 0.5 x10^3/uL (0.0-1.1) Eosinophils # (Auto) 0.2 x10^3/uL (0.0-0.7) Basophils # (Auto) 0.1 x10^3/uL (0.0-0.2) Sodium Level 135 mmol/L (136-145) Potassium Level 4.6 mmol/L (3.5-5.1) Chloride Level 103 mmol/L (98-107) Carbon Dioxide Level 29 mmol/L (21-32) Anion Gap 3 (6-14) Blood Urea Nitrogen 21 mg/dL (7-20) Creatinine 2.4 mg/dL (0.6-1.0) Estimated GFR (Cockcroft-Gault) 20.5 Glucose Level 117 mg/dL (70-99) Calcium Level 9.3 mg/dL (8.5-10.1) Phosphorus Level 3.3 mg/dL (2.6-4.7) Albumin 2.9 g/dL (3.4-5.0) Medications Current Medications Sodium Chloride 1,000 ml @ 150 mls/hr Q6H40M IV Last administered on at 19:00; Start 02/17/18 at 19:00; Stop 02/17/18 at 21:46; Status DC Potassium Chloride (Klor-Con) 40 meq 1X ONCE PO Last administered on at 21:39; Start 02/17/18 at 21:30; Stop 02/17/18 at 21:31; Status DC Magnesium Sulfate 50 ml @ 25 mls/hr 1X ONCE IV Last administered on 02/18/18 02:43; Start 02/17/18 at 22:00; Stop 02/17/18 at 23:59; Status DC Potassium Chloride (Klor-Con) 20 meq DAILY PO Last administered on 02/19/18at 07 :51; Start 02/18/18 at 09:00; Stop 02/19/18 at 15:01; Status DC Alprazolam (Xanax) 1 mg PRN TID PRN PO ANXIETY / AGITATION Last administered on 02/19/18at 03:15; Start 02/17/18 at 21:45 Duloxetine HCl (Cymbalta) 90 mg DAILY PO Last administered on 02/20/18 08:12; Start 02/18/18 at 09:00 Ondansetron HCl (Zofran Odt) 4 mg Q8HRS PO Last administered on 02/20/18at 05:54 ; Start 02/17/18 at 22:00 Oxycodone/ Acetaminophen (Percocet 7.5/ 325) 1 tab QID PO Last administered on 02/20/18at 08:12; Start 02/18/18 at 09:00 Pantoprazole Sodium (Protonix) 40 mg DAILYAC PO Last administered on 02/20/18 08:13; Start 02/18/18 at 07:30 Oxycodone HCl (Roxicodone) 10 mg PRN Q6HRS PRN PO BREAKTHRU PAIN Last administered on 02/20/18at 05:54; Start 02/17/18 at 22:00 Lidocaine (Lidoderm) 1 patch DAILY TD Last administered on 02/20/18at 08:13; Start 02/18/18 at 09:00 Potassium Chloride/Dextrose/ Sod Cl 1,000 ml @ 100 mls/hr Q10H IV Last administered on 02/19/18at 11:09; Start 02/17/18 at 22:00; Stop 02/19/18 at 15:01 ; Status DC Potassium Chloride (Klor-Con) 20 meq 1X ONCE PO Last administered on at 12:57; Start 02/18/18 at 13:00; Stop 02/18/18 at 13:01; Status DC Alprazolam (Xanax) 0.5 mg TID PO Last administered on 02/20/18at 08:12; Start at 14:00 Amlodipine Besylate (Norvasc) 10 mg DAILY PO Last administered on 02/20/18at 08: 13; Start 02/18/18 at 13:00 Methylprednisolone Acetate (DEPO-Medrol 40MG VIAL) 40 mg 1X ONCE IM Last administered on 02/19/18at 10:00; Start 02/19/18 at 10:00; Stop 02/19/18 at 10:01 ; Status DC Bupivacaine HCl (Sensorcaine-Mpf 0.25%) 10 ml 1X ONCE IJ Last administered on 02/19/18at 10:00; Start 02/19/18 at 10:00; Stop 02/19/18 at 10:01; Status DC Zolpidem Tartrate (Ambien) 5 mg PRN QHS PRN PO INSOMNIA Last administered on at 21:02; Start 02/19/18 at 20:30 Active Scripts Active Zofran Odt (Ondansetron) 4 Mg Tab.rapdis 1 Tab SL Q8HRS Percocet 7.5-325 Mg Tablet (Oxycodone/Acetaminophen) 1 Each Tablet 1 Tab PO QID Keflex (Cephalexin) 250 Mg Capsule 1 Cap PO TID Cymbalta (Duloxetine Hcl) 30 Mg Capsule.dr 90 Mg PO DAILY 30 Days Oxycodone Hcl 10 Mg Tablet 1 Tab PO PRN Q6HRS PRN 30 Days Alprazolam 0.5 Mg Tablet 1 Tab PO TID 30 Days Reported Amlodipine Besylate 10 Mg Tablet 10 Mg PO DAILY Alprazolam 1 Mg Tablet 1 Mg PO PRN TID PRN Nexium Capsule (Esomeprazole Magnesium) 40 Mg Capsule. 1 Cap PO DAILY Vitals/I & O Vital Sign - Last 24 Hours 02/19/18 02/19/18 02/19/18 02/19/18 11:28 12:47 15:13 15:54 Temp 98.4 99.5 98.4 99.5 Pulse 78 79 Resp 20 20 B/P (MAP) 134/77 (96) 133/87 (102) Pulse Ox 96 95 O2 Delivery Room Air Room Air Room Air Room Air 02/19/18 02/19/18 02/19/18 02/19/18 17:01 19:00 19:50 21:03 Temp 98.9 98.9 Pulse 77 Resp 18 B/P (MAP) 144/86 (105) Pulse Ox 96 O2 Delivery Room Air Room Air Room Air 02/19/18 02/19/18 02/20/18 02/20/18 22:03 23:00 00:08 01:08 Temp 98.8 98.8 Pulse 79 Resp 18 12 B/P (MAP) 141/84 (103) Pulse Ox 96 97 97 O2 Delivery Room Air 02/20/18 02/20/18 02/20/18 02/20/18 03:00 05:54 07:00 07:17 Temp 98.8 97.8 98.8 97.8 Pulse 74 54 Resp 18 20 B/P (MAP) 145/89 (107) 132/47 (75) Pulse Ox 95 97 O2 Delivery Room Air Room Air Room Air 02/20/18 02/20/18 02/20/18 02/20/18 07:42 08:12 08:13 09:12 Pulse 78 B/P (MAP) 166/98 O2 Delivery Room Air Room Air Room Air Intake and Output 02/19/18 02/19/18 02/20/18 15:00 23:00 07:00 Intake Total 480 ml 1440 ml Output Total 500 ml 150 ml Balance 480 ml 940 ml -150 ml Nutrition Consultation Dietary Evaluation: Recommendations by RD: Dietary education by RD Comments: provided diet education on renal diet handouts given to use at d/c Expected Outcomes/Goals: improvement on food choices/ better compliance w/ renal diet Interpretation of weight loss: >1-2% in 1 week Malnutrition Findings: Food and Nutrition Intake (Mod: <75% est energy req 7days Weight Status: Appropriate UCHE RASCON MD Feb 20, 2018 10:12
--- NOTE | 2018-02-20 10:56 | PDOC ---
PROGRESS NOTES History of Present Illness History of Present Illness Assessment/Plan Assessment/Plan acute renal failure, on CKD 3, vasomotor nephropathy, appears dry, or ATN on CKD, renal following URINARY RETENTION hypokalemia hypochloremia weakness and debility acute on chronic back pain with narcotic dependence, GERD, gastritis discussed home dietary changes RENAL FOLLOWING inc fluid intake bladder scan PT/OT US RENAL TODAY HAD 600CC ON BLADDER SCAN THIS AM Vitals Vitals Vital Signs Date Time Temp Pulse Resp B/P (MAP) Pulse Ox O2 Delivery O2 Flow Rate FiO2 02/20/18 09:12 Room Air 02/20/18 08:13 78 166/98 02/20/18 07:00 97.8 20 97 97.8 Physical Exam General: Alert, Oriented X3, Cooperative, No acute distress, mild distress, moderate distress Heart: Regular rate, Normal S1 Lungs: Clear Abdomen: Normal bowel sounds, Soft, Other (mid diffuse TTP) Extremities: No clubbing, No cyanosis, No edema Skin: No rashes, No significant lesion Labs LABS Laboratory Tests Test 02/20/18 02:55 White Blood Count 5.9 x10^3/uL (4.0-11.0) Red Blood Count 3.94 x10^6/uL (3.50-5.40) Hemoglobin 10.7 g/dL (12.0-15.5) Hematocrit 33.2 % (36.0-47.0) Mean Corpuscular Volume 84 fL (79-100) Mean Corpuscular Hemoglobin 27 pg (25-35) Mean Corpuscular Hemoglobin Concent 32 g/dL (31-37) Red Cell Distribution Width 18.2 % (11.5-14.5) Platelet Count 265 x10^3/uL (140-400) Neutrophils (%) (Auto) 60 % (31-73) Lymphocytes (%) (Auto) 26 % (24-48) Monocytes (%) (Auto) 9 % (0-9) Eosinophils (%) (Auto) 4 % (0-3) Basophils (%) (Auto) 2 % (0-3) Neutrophils # (Auto) 3.6 x10^3uL (1.8-7.7) Lymphocytes # (Auto) 1.5 x10^3/uL (1.0-4.8) Monocytes # (Auto) 0.5 x10^3/uL (0.0-1.1) Eosinophils # (Auto) 0.2 x10^3/uL (0.0-0.7) Basophils # (Auto) 0.1 x10^3/uL (0.0-0.2) Sodium Level 135 mmol/L (136-145) Potassium Level 4.6 mmol/L (3.5-5.1) Chloride Level 103 mmol/L (98-107) Carbon Dioxide Level 29 mmol/L (21-32) Anion Gap 3 (6-14) Blood Urea Nitrogen 21 mg/dL (7-20) Creatinine 2.4 mg/dL (0.6-1.0) Estimated GFR (Cockcroft-Gault) 20.5 Glucose Level 117 mg/dL (70-99) Calcium Level 9.3 mg/dL (8.5-10.1) Phosphorus Level 3.3 mg/dL (2.6-4.7) Albumin 2.9 g/dL (3.4-5.0) Assessment and Plan Assessmemt and Plan Problems Medical Problems: (1) Acute renal failure superimposed on chronic kidney disease Status: Acute (2) Hypokalemia Status: Acute (3) Vomiting and diarrhea Status: Acute Comment Review of Relevant I have reviewed the following items blade (where applicable) has been applied. Labs Laboratory Tests Test 02/19/18 08:25 02/20/18 02:55 Sodium Level 134 mmol/L (136-145) 135 mmol/L (136-145) Potassium Level 4.9 mmol/L (3.5-5.1) 4.6 mmol/L (3.5-5.1) Chloride Level 102 mmol/L (98-107) 103 mmol/L (98-107) Carbon Dioxide Level 31 mmol/L (21-32) 29 mmol/L (21-32) Anion Gap 1 (6-14) 3 (6-14) Blood Urea Nitrogen 16 mg/dL (7-20) 21 mg/dL (7-20) Creatinine 2.5 mg/dL (0.6-1.0) 2.4 mg/dL (0.6-1.0) Estimated GFR (Cockcroft-Gault) 19.6 20.5 Glucose Level 105 mg/dL (70-99) 117 mg/dL (70-99) Calcium Level 9.1 mg/dL (8.5-10.1) 9.3 mg/dL (8.5-10.1) Phosphorus Level 2.6 mg/dL (2.6-4.7) 3.3 mg/dL (2.6-4.7) Albumin 2.7 g/dL (3.4-5.0) 2.9 g/dL (3.4-5.0) White Blood Count 5.9 x10^3/uL (4.0-11.0) Red Blood Count 3.94 x10^6/uL (3.50-5.40) Hemoglobin 10.7 g/dL (12.0-15.5) Hematocrit 33.2 % (36.0-47.0) Mean Corpuscular Volume 84 fL (79-100) Mean Corpuscular Hemoglobin 27 pg (25-35) Mean Corpuscular Hemoglobin Concent 32 g/dL (31-37) Red Cell Distribution Width 18.2 % (11.5-14.5) Platelet Count 265 x10^3/uL (140-400) Neutrophils (%) (Auto) 60 % (31-73) Lymphocytes (%) (Auto) 26 % (24-48) Monocytes (%) (Auto) 9 % (0-9) Eosinophils (%) (Auto) 4 % (0-3) Basophils (%) (Auto) 2 % (0-3) Neutrophils # (Auto) 3.6 x10^3uL (1.8-7.7) Lymphocytes # (Auto) 1.5 x10^3/uL (1.0-4.8) Monocytes # (Auto) 0.5 x10^3/uL (0.0-1.1) Eosinophils # (Auto) 0.2 x10^3/uL (0.0-0.7) Basophils # (Auto) 0.1 x10^3/uL (0.0-0.2) Laboratory Tests Test 02/20/18 02:55 White Blood Count 5.9 x10^3/uL (4.0-11.0) Red Blood Count 3.94 x10^6/uL (3.50-5.40) Hemoglobin 10.7 g/dL (12.0-15.5) Hematocrit 33.2 % (36.0-47.0) Mean Corpuscular Volume 84 fL (79-100) Mean Corpuscular Hemoglobin 27 pg (25-35) Mean Corpuscular Hemoglobin Concent 32 g/dL (31-37) Red Cell Distribution Width 18.2 % (11.5-14.5) Platelet Count 265 x10^3/uL (140-400) Neutrophils (%) (Auto) 60 % (31-73) Lymphocytes (%) (Auto) 26 % (24-48) Monocytes (%) (Auto) 9 % (0-9) Eosinophils (%) (Auto) 4 % (0-3) Basophils (%) (Auto) 2 % (0-3) Neutrophils # (Auto) 3.6 x10^3uL (1.8-7.7) Lymphocytes # (Auto) 1.5 x10^3/uL (1.0-4.8) Monocytes # (Auto) 0.5 x10^3/uL (0.0-1.1) Eosinophils # (Auto) 0.2 x10^3/uL (0.0-0.7) Basophils # (Auto) 0.1 x10^3/uL (0.0-0.2) Sodium Level 135 mmol/L (136-145) Potassium Level 4.6 mmol/L (3.5-5.1) Chloride Level 103 mmol/L (98-107) Carbon Dioxide Level 29 mmol/L (21-32) Anion Gap 3 (6-14) Blood Urea Nitrogen 21 mg/dL (7-20) Creatinine 2.4 mg/dL (0.6-1.0) Estimated GFR (Cockcroft-Gault) 20.5 Glucose Level 117 mg/dL (70-99) Calcium Level 9.3 mg/dL (8.5-10.1) Phosphorus Level 3.3 mg/dL (2.6-4.7) Albumin 2.9 g/dL (3.4-5.0) Medications Current Medications Sodium Chloride 1,000 ml @ 150 mls/hr [id number] IV Last administered on at 19:00; Start 02/17/18 at 19:00; Stop 02/17/18 at 21:46; Status DC Potassium Chloride (Klor-Con) 40 meq 1X ONCE PO Last administered on 21:39; Start 02/17/18 at 21:30; Stop 02/17/18 at 21:31; Status DC Magnesium Sulfate 50 ml @ 25 mls/hr 1X ONCE IV Last administered on 02/18/18 02:43; Start 02/17/18 at 22:00; Stop 02/17/18 at 23:59; Status DC Potassium Chloride (Klor-Con) 20 meq DAILY PO Last administered on 02/19/18at 07 :51; Start 02/18/18 at 09:00; Stop 02/19/18 at 15:01; Status DC Alprazolam (Xanax) 1 mg PRN TID PRN PO ANXIETY / AGITATION Last administered on 02/19/18 03:15; Start 02/17/18 at 21:45 Duloxetine HCl (Cymbalta) 90 mg DAILY PO Last administered on 02/20/18 08:12; Start 02/18/18 at 09:00 Ondansetron HCl (Zofran Odt) 4 mg Q8HRS PO Last administered on 02/20/18 05:54 ; Start 02/17/18 at 22:00 Oxycodone/ Acetaminophen (Percocet 7.5/ 325) 1 tab QID PO Last administered on 02/20/18 08:12; Start 02/18/18 at 09:00 Pantoprazole Sodium (Protonix) 40 mg DAILYAC PO Last administered on 02/20/18 08:13; Start 02/18/18 at 07:30 Oxycodone HCl (Roxicodone) 10 mg PRN Q6HRS PRN PO BREAKTHRU PAIN Last administered on 02/20/18 05:54; Start 02/17/18 at 22:00 Lidocaine (Lidoderm) 1 patch DAILY TD Last administered on 02/20/18 08:13; Start 02/18/18 at 09:00 Potassium Chloride/Dextrose/ Sod Cl 1,000 ml @ 100 mls/hr Q10H IV Last administered on 02/19/18 11:09; Start 02/17/18 at 22:00; Stop 02/19/18 at 15:01 ; Status DC Potassium Chloride (Klor-Con) 20 meq 1X ONCE PO Last administered on at 12:57; Start 02/18/18 at 13:00; Stop 02/18/18 at 13:01; Status DC Alprazolam (Xanax) 0.5 mg TID PO Last administered on 02/20/18at 08:12; Start at 14:00 Amlodipine Besylate (Norvasc) 10 mg DAILY PO Last administered on 02/20/18at 08: 13; Start 02/18/18 at 13:00 Methylprednisolone Acetate (DEPO-Medrol 40MG VIAL) 40 mg 1X ONCE IM Last administered on 02/19/18at 10:00; Start 02/19/18 at 10:00; Stop 02/19/18 at 10:01 ; Status DC Bupivacaine HCl (Sensorcaine-Mpf 0.25%) 10 ml 1X ONCE IJ Last administered on 02/19/18at 10:00; Start 02/19/18 at 10:00; Stop 02/19/18 at 10:01; Status DC Zolpidem Tartrate (Ambien) 5 mg PRN QHS PRN PO INSOMNIA Last administered on at 21:02; Start 02/19/18 at 20:30 Active Scripts Active Zofran Odt (Ondansetron) 4 Mg Tab.rapdis 1 Tab SL Q8HRS Percocet 7.5-325 Mg Tablet (Oxycodone/Acetaminophen) 1 Each Tablet 1 Tab PO QID Keflex (Cephalexin) 250 Mg Capsule 1 Cap PO TID Cymbalta (Duloxetine Hcl) 30 Mg Capsule.dr 90 Mg PO DAILY 30 Days Oxycodone Hcl 10 Mg Tablet 1 Tab PO PRN Q6HRS PRN 30 Days Alprazolam 0.5 Mg Tablet 1 Tab PO TID 30 Days Reported Amlodipine Besylate 10 Mg Tablet 10 Mg PO DAILY Alprazolam 1 Mg Tablet 1 Mg PO PRN TID PRN Nexium Capsule (Esomeprazole Magnesium) 40 Mg Capsule. 1 Cap PO DAILY Vitals/I & O Vital Sign - Last 24 Hours 02/19/18 02/19/18 02/19/18 02/19/18 11:28 12:47 15:13 15:54 Temp 98.4 99.5 98.4 99.5 Pulse 78 79 Resp 20 20 B/P (MAP) 134/77 (96) 133/87 (102) Pulse Ox 96 95 O2 Delivery Room Air Room Air Room Air Room Air 02/19/18 02/19/18 02/19/18 02/19/18 17:01 19:00 19:50 21:03 Temp 98.9 98.9 Pulse 77 Resp 18 B/P (MAP) 144/86 (105) Pulse Ox 96 O2 Delivery Room Air Room Air Room Air 02/19/18 02/19/18 02/20/18 02/20/18 22:03 23:00 00:08 01:08 Temp 98.8 98.8 Pulse 79 Resp 18 12 B/P (MAP) 141/84 (103) Pulse Ox 96 97 97 O2 Delivery Room Air 02/20/18 02/20/18 02/20/18 02/20/18 03:00 05:54 07:00 07:17 Temp 98.8 97.8 98.8 97.8 Pulse 74 54 Resp 18 20 B/P (MAP) 145/89 (107) 132/47 (75) Pulse Ox 95 97 O2 Delivery Room Air Room Air Room Air 02/20/18 02/20/18 02/20/18 02/20/18 07:42 08:12 08:13 09:12 Pulse 78 B/P (MAP) 166/98 O2 Delivery Room Air Room Air Room Air Intake and Output 02/19/18 02/19/18 02/20/18 15:00 23:00 07:00 Intake Total 480 ml 1440 ml Output Total 500 ml 150 ml Balance 480 ml 940 ml -150 ml Nutrition Consultation Dietary Evaluation: Recommendations by RD: Dietary education by RD Comments: provided diet education on renal diet handouts given to use at d/c Expected Outcomes/Goals: improvement on food choices/ better compliance w/ renal diet Interpretation of weight loss: >1-2% in 1 week Malnutrition Findings: Food and Nutrition Intake (Mod: <75% est energy req 7days Weight Status: Appropriate WEI COLLINS MD Feb 20, 2018 10:56
[2018-02-20 11:00] VITALS: BP 166/97
[2018-02-20] MEDS: IV NORMAL SALINE 1000ML BAG 1,000 ML IV SCH (11:45)
--- NOTE | 2018-02-20 12:56 | PDOC ---
SUBJECTIVE ROS No new concerns OBJECTIVE Vital Signs Vital Signs Date Time Temp Pulse Resp B/P (MAP) Pulse Ox O2 Delivery O2 Flow Rate FiO2 02/20/18 12:33 Room Air 02/20/18 11:00 98.1 73 20 166/97 (120) 95 98.1 I & 0 Intake and Output 02/20/18 07:00 Intake Total 1920 ml Output Total 650 ml Balance 1270 ml Intake Oral 1920 ml Output Urine Total 650 ml # Voids 2 PHYSICAL EXAM Physical Exam General: NAD HEENT: OM moist neck Supple Lungs: Clear to auscultation Bilat, Non labored Heart - RRR, ANJELICA+ no gallops Abdomen: Normal bowel sounds, Soft Extremities: No edema Skin: No rashes Neuro: Grossly Normal Skin No rash - No Drummond , No CVA or SP tenderness DIAGNOSIS/ASSESSMENT Assessment & Plan AK I on CKD :Multifactorial- prerenal , ?LUOG(neurogenic bladder), decreased PO intake Improving Multiple Hospitalizations with GILES Hx of Urinary retention , Non compliant with straight cath at home SP catheter was removed by Urology due to UTI's 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 Presumably due to history of neurogenic bladder and noncompliance with self catheter possible reflux nephropathy She reports she follows with Dr. Crawford, Neph- hasnt seen him recently as she has been Hospitalized x 3 in past 1 Month Hypokalemia -Normal Monitor and replace as needed Hypercalcemia- likely sec to Dehydration Resolved today Anemia - Hgb stable HTN- Stable CT scan-- 1. There is atrophy of the kidneys, right greater than left. There is increased echogenicity of the renal parenchyma suggestive of medical renal disease. There is mild dilatation of the renal collecting systems, improved since the examination from 09/03/2017. Findings may be secondary to chronic urinary retention. 2. No evidence for cholelithiasis. Problems: COMMENT/RELEVANT DATA Meds Current Medications Medications (Trade) Dose Ordered Sig/Taz Start Time Stop Time Status Last Admin Dose Admin Alprazolam (Xanax) 0.5 mg TID 02/18/18 14:00 02/20/18 08:12 0.5 MG Amlodipine Besylate (Norvasc) 10 mg DAILY 02/18/18 13:00 02/20/18 08:13 10 MG Bupivacaine HCl (Sensorcaine-Mpf 0.25%) 10 ml 1X ONCE 02/19/18 10:00 02/19/18 10:01 DC 02/19/18 10:00 10 ML Duloxetine HCl (Cymbalta) 90 mg DAILY 02/18/18 09:00 02/20/18 08:12 90 MG Lidocaine (Lidoderm) 1 patch DAILY 02/18/18 09:00 02/20/18 08:13 1 PATCH Magnesium Sulfate 50 ml @ 25 mls/hr 1X ONCE 02/17/18 22:00 02/17/18 23:59 DC 02/18/18 02:43 25 MLS/HR Methylprednisolone Acetate (DEPO-Medrol 40MG VIAL) 40 mg 1X ONCE 02/19/18 10:00 02/19/18 10:01 DC 02/19/18 10:00 40 MG Ondansetron HCl (Zofran Odt) 4 mg Q8HRS 02/17/18 22:00 02/20/18 05:54 4 MG Oxycodone HCl (Roxicodone) 10 mg PRN Q6HRS PRN 02/17/18 22:00 02/20/18 05:54 10 MG Oxycodone/ Acetaminophen (Percocet 7.5/ 325) 1 tab QID 02/18/18 09:00 02/20/18 12:33 1 TAB Pantoprazole Sodium (Protonix) 40 mg DAILYAC 02/18/18 07:30 02/20/18 08:13 40 MG Potassium Chloride/Dextrose/ Sod Cl 1,000 ml @ 100 mls/hr Q10H 02/17/18 22:00 02/19/18 15:01 DC 02/19/18 11:09 100 MLS/HR Potassium Chloride (Klor-Con) 20 meq 1X ONCE 02/18/18 13:00 02/18/18 13:01 DC 02/18/18 12:57 20 MEQ Sodium Chloride 1,000 ml @ 75 mls/hr [id number] 02/20/18 11:45 02/20/18 11:45 75 MLS/HR Zolpidem Tartrate (Ambien) 5 mg PRN QHS PRN 02/19/18 20:30 02/19/18 21:02 5 MG Lab Laboratory Tests Test 02/20/18 02:55 White Blood Count 5.9 x10^3/uL (4.0-11.0) Red Blood Count 3.94 x10^6/uL (3.50-5.40) Hemoglobin 10.7 g/dL (12.0-15.5) Hematocrit 33.2 % (36.0-47.0) Mean Corpuscular Volume 84 fL (79-100) Mean Corpuscular Hemoglobin 27 pg (25-35) Mean Corpuscular Hemoglobin Concent 32 g/dL (31-37) Red Cell Distribution Width 18.2 % (11.5-14.5) Platelet Count 265 x10^3/uL (140-400) Neutrophils (%) (Auto) 60 % (31-73) Lymphocytes (%) (Auto) 26 % (24-48) Monocytes (%) (Auto) 9 % (0-9) Eosinophils (%) (Auto) 4 % (0-3) Basophils (%) (Auto) 2 % (0-3) Neutrophils # (Auto) 3.6 x10^3uL (1.8-7.7) Lymphocytes # (Auto) 1.5 x10^3/uL (1.0-4.8) Monocytes # (Auto) 0.5 x10^3/uL (0.0-1.1) Eosinophils # (Auto) 0.2 x10^3/uL (0.0-0.7) Basophils # (Auto) 0.1 x10^3/uL (0.0-0.2) Sodium Level 135 mmol/L (136-145) Potassium Level 4.6 mmol/L (3.5-5.1) Chloride Level 103 mmol/L (98-107) Carbon Dioxide Level 29 mmol/L (21-32) Anion Gap 3 (6-14) Blood Urea Nitrogen 21 mg/dL (7-20) Creatinine 2.4 mg/dL (0.6-1.0) Estimated GFR (Cockcroft-Gault) 20.5 Glucose Level 117 mg/dL (70-99) Calcium Level 9.3 mg/dL (8.5-10.1) Phosphorus Level 3.3 mg/dL (2.6-4.7) Albumin 2.9 g/dL (3.4-5.0) Results All relevant outside records, renal labs, imaging studies, telemetry/EKG's were reviewed. ALDAIR KRAFT MD Feb 20, 2018 12:56
--- NOTE | 2018-02-20 13:41 | RAD ---
EXAM: Renal sonogram. HISTORY: Urinary retention. TECHNIQUE: Sonographic imaging of the kidneys and bladder was performed. COMPARISON: CT dated 01/21/2018. FINDINGS: The right kidney measures 9.1 cm [id number]. The left kidney measures 7.9 cm [id number]. There is echogenic renal fragment. No solid or cystic renal lesion is seen. The prevoid bladder volume is 742 cc. The post void bladder volume is 550 cc. The right ureteral jet is not seen during the exam. IMPRESSION: 1. Left renal atrophy. 2. Echogenic bilateral renal parenchyma, a finding which can be seen with medical renal disease. 3. Large post void bladder residual of 550 cc. 4. Nonvisualization of the right ureteral jet during the exam. Electronically signed by: Esther Gallagher MD (02/20/2018 1:38 PM) [facility]
[2018-02-20 15:00] VITALS: BP 134/80
[2018-02-20 19:00] VITALS: BP 137/78
[2018-02-20 23:00] VITALS: BP 137/73
[2018-02-21] MEDS: IV NORMAL SALINE 1000ML BAG 1,000 ML IV SCH (01:05)
[2018-02-21 03:00] VITALS: BP 130/79
[2018-02-21] MEDS: oxyCODONE IR 5 MG TABLET PO PRN (03:38)
[2018-02-21] MEDS: ONDANSETRON ODT 4 MG TAB.RAPDIS. PO SCH ×2 (06:37→14:10)
[2018-02-21 07:00] VITALS: BP 139/84
[2018-02-21] MEDS: PANTOPRAZOLE 40 MG TABLET.DR. PO SCH (08:04)
[2018-02-21] MEDS: DULoxetine HCL 30 MG CAPSULE.DR PO SCH (08:05)
[2018-02-21] MEDS: amLODIPine BESYLATE 10 MG TABLET PO SCH (08:06)
[2018-02-21] MEDS: oxyCODONE/APAP 7.5/325 1 TAB TABLET PO SCH ×2 (08:07→14:10)
[2018-02-21] MEDS: ALPRAZolam 0.5 MG TABLET PO SCH ×2 (08:07→14:10)
[2018-02-21] MEDS: LIDOCAINE (700MG/PATCH) PATCH. TD SCH (08:07)
[2018-02-21 08:08] LABS: BASO # 0.1 x10^3/uL (0.0-0.2); BASO % 1 % (0-3); EOS # 0.3 x10^3/uL (0.0-0.7); EOS % 4 % (0-3); HEMATOCRIT 31.2 % (36.0-47.0); HEMOGLOBIN 10.2 g/dL (12.0-15.5); LYMPH # 1.8 x10^3/uL (1.0-4.8); LYMPH % 25 % (24-48); MEAN CORPUSCULAR HEMOGLOBIN 27 pg (25-35); MEAN CORPUSCULAR HGB CONC 33 g/dL (31-37); MEAN CORPUSCULAR VOLUME 84 fL (79-100); MONO # 0.6 x10^3/uL (0.0-1.1); MONO % 8 % (0-9); NEUT # 4.6 x10^3uL (1.8-7.7); NEUT % 62 % (31-73); PLATELET COUNT 246 x10^3/uL (140-400); RED BLOOD COUNT 3.72 x10^6/uL (3.50-5.40); RED CELL DISTRIBUTION WIDTH 18.2 % (11.5-14.5); WHITE BLOOD COUNT 7.4 x10^3/uL (4.0-11.0)
[2018-02-21 08:25] LABS: ALBUMIN 2.7 g/dL (3.4-5.0); CALCIUM 9.1 mg/dL (8.5-10.1); CREATININE 2.2 mg/dL (0.6-1.0); GFR 22.7; PHOSPHORUS 3.5 mg/dL (2.6-4.7); POTASSIUM 4.1 mmol/L (3.5-5.1)
--- NOTE | 2018-02-21 08:53 | PDOC2 ---
CAROL MORENO LUI 02/21/18 0853: UROLOGY CONSULT Date of Consult Date of Consult DATE: 02/21/18 TIME: 08:46 Reason for Consult Reason for Consult: Urinary Retention Identification/Chief Complaint Chief Complaint This 62 year old female is known to us and a patient of Dr. Coreas'ananth. She has a history of chronic urinary retention, managed with QID in and out cathing per Dr. Coreas, although she does have a history of noncompliance with this regimen. She was not due for another office visit for another year. She has a history of frequent hospitalizations, this one is for "vomiting and feeling ill." She was brought into the hospital for this and forgot to tell staff that she need to continue I and O cathing while she was here. Renal US revealed that she had over 500 worth of urinary retention, and so a kerns was inserted. She has this now and it is not bothering her. Other following physicians have mentioned they want her to move around more and are comfortable with her doing so. Source Source: Caregiver, Chart review, Patient History of Present Illness Reason for Visit: Urinary Retention, patient of Dr. Coreas Past Medical History Cardiovascular: HTN, Hyperlipidemia Pulmonary: No pertinent hx GI: GERD, Other Heme/Onc: Anemia NOS Hepatobiliary: Other Psych: Anxiety, Depression Rheumatologic: Fibromyalgia Infectious disease: No pertinent hx, Other Renal/: Chronic renal insuff, Other Past Surgical History Past Surgical History: Total knee replacement, Tubal Ligation, Other Family History Family History: Heart Disease, Hypertension Social History ALCOHOL: other Drugs: Marijuana Lives: Alone Current Problem List Problems: (1) Urinary retention Current Medications Current Medications Current Medications Sodium Chloride 1,000 ml @ 75 mls/hr [id number] IV Last administered on at 01:05; Start 02/20/18 at 11:45 Allergies Allergies: Coded Allergies: levofloxacin (Verified Allergy, Intermediate, 01/23/18) TOLERATES CIPRO I S O L A T I O N *CONTACT* (Verified Allergy, Unknown, 01/23/18) VRE, mrsa, chronic C.diff diphenhydramine HCl (Verified Adverse Reaction, Intermediate, "Jittery on the inside", 01/23/18) ROS Review Of Systems: CONSTITUTIONAL: No fever or chills EYES: No recent changes SKIN: No rash or itching CARDIOVASCULAR: No chest pain, syncope, palpitations, or edema RESPIRATORY: No SOB or cough GASTROINTESTINAL: No nausea, vomiting or abdominal pain NEUROLOGICAL: No headaches or weakness ENDOCRINE: No cold or heat intolerance GENITOURINARY: No urgency or frequency of urination, indwelling kerns present MUSCULOSKELETAL: No back pain or joint pain LYMPHATICS: No enlarged lymph nodes PSYCHIATRIC: No anxiety or depression Physical Exam Physical Exam: General: Pleasant, no acute distress, well groomed Eyes: conjunctiva anicteric, eyes full range of motion ENT: moist oral mucosa, normal dentition Neck: Trachea midline, no masses Respiratory: unlabored breathing, not using accessory muscles Pelvic: Kerns catheter draining clear yellow urine Skin: no rashes or skin lesions on visualized skin Psych: normal mood, affect. Alert and 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. Vitals VITALS Vital Signs Date Time Temp Pulse Resp B/P (MAP) Pulse Ox O2 Delivery O2 Flow Rate FiO2 02/21/18 08:07 Room Air 02/21/18 08:06 75 139/84 02/21/18 07:00 20 93 02/21/18 03:38 10.0 02/21/18 03:00 98.7 98.7 Labs Labs Laboratory Tests Test 02/20/18 02:55 02/21/18 06:57 White Blood Count 5.9 x10^3/uL (4.0-11.0) 7.4 x10^3/uL (4.0-11.0) Red Blood Count 3.94 x10^6/uL (3.50-5.40) 3.72 x10^6/uL (3.50-5.40) Hemoglobin 10.7 g/dL (12.0-15.5) 10.2 g/dL (12.0-15.5) Hematocrit 33.2 % (36.0-47.0) 31.2 % (36.0-47.0) Mean Corpuscular Volume 84 fL (79-100) 84 fL (79-100) Mean Corpuscular Hemoglobin 27 pg (25-35) 27 pg (25-35) Mean Corpuscular Hemoglobin Concent 32 g/dL (31-37) 33 g/dL (31-37) Red Cell Distribution Width 18.2 % (11.5-14.5) 18.2 % (11.5-14.5) Platelet Count 265 x10^3/uL (140-400) 246 x10^3/uL (140-400) Neutrophils (%) (Auto) 60 % (31-73) 62 % (31-73) Lymphocytes (%) (Auto) 26 % (24-48) 25 % (24-48) Monocytes (%) (Auto) 9 % (0-9) 8 % (0-9) Eosinophils (%) (Auto) 4 % (0-3) 4 % (0-3) Basophils (%) (Auto) 2 % (0-3) 1 % (0-3) Neutrophils # (Auto) 3.6 x10^3uL (1.8-7.7) 4.6 x10^3uL (1.8-7.7) Lymphocytes # (Auto) 1.5 x10^3/uL (1.0-4.8) 1.8 x10^3/uL (1.0-4.8) Monocytes # (Auto) 0.5 x10^3/uL (0.0-1.1) 0.6 x10^3/uL (0.0-1.1) Eosinophils # (Auto) 0.2 x10^3/uL (0.0-0.7) 0.3 x10^3/uL (0.0-0.7) Basophils # (Auto) 0.1 x10^3/uL (0.0-0.2) 0.1 x10^3/uL (0.0-0.2) Sodium Level 135 mmol/L (136-145) 139 mmol/L (136-145) Potassium Level 4.6 mmol/L (3.5-5.1) 4.1 mmol/L (3.5-5.1) Chloride Level 103 mmol/L (98-107) 104 mmol/L (98-107) Carbon Dioxide Level 29 mmol/L (21-32) 30 mmol/L (21-32) Anion Gap 3 (6-14) 5 (6-14) Blood Urea Nitrogen 21 mg/dL (7-20) 20 mg/dL (7-20) Creatinine 2.4 mg/dL (0.6-1.0) 2.2 mg/dL (0.6-1.0) Estimated GFR (Cockcroft-Gault) 20.5 22.7 Glucose Level 117 mg/dL (70-99) 88 mg/dL (70-99) Calcium Level 9.3 mg/dL (8.5-10.1) 9.1 mg/dL (8.5-10.1) Phosphorus Level 3.3 mg/dL (2.6-4.7) 3.5 mg/dL (2.6-4.7) Albumin 2.9 g/dL (3.4-5.0) 2.7 g/dL (3.4-5.0) Laboratory Tests Test 02/21/18 06:57 White Blood Count 7.4 x10^3/uL (4.0-11.0) Red Blood Count 3.72 x10^6/uL (3.50-5.40) Hemoglobin 10.2 g/dL (12.0-15.5) Hematocrit 31.2 % (36.0-47.0) Mean Corpuscular Volume 84 fL (79-100) Mean Corpuscular Hemoglobin 27 pg (25-35) Mean Corpuscular Hemoglobin Concent 33 g/dL (31-37) Red Cell Distribution Width 18.2 % (11.5-14.5) Platelet Count 246 x10^3/uL (140-400) Neutrophils (%) (Auto) 62 % (31-73) Lymphocytes (%) (Auto) 25 % (24-48) Monocytes (%) (Auto) 8 % (0-9) Eosinophils (%) (Auto) 4 % (0-3) Basophils (%) (Auto) 1 % (0-3) Neutrophils # (Auto) 4.6 x10^3uL (1.8-7.7) Lymphocytes # (Auto) 1.8 x10^3/uL (1.0-4.8) Monocytes # (Auto) 0.6 x10^3/uL (0.0-1.1) Eosinophils # (Auto) 0.3 x10^3/uL (0.0-0.7) Basophils # (Auto) 0.1 x10^3/uL (0.0-0.2) Sodium Level 139 mmol/L (136-145) Potassium Level 4.1 mmol/L (3.5-5.1) Chloride Level 104 mmol/L (98-107) Carbon Dioxide Level 30 mmol/L (21-32) Anion Gap 5 (6-14) Blood Urea Nitrogen 20 mg/dL (7-20) Creatinine 2.2 mg/dL (0.6-1.0) Estimated GFR (Cockcroft-Gault) 22.7 Glucose Level 88 mg/dL (70-99) Calcium Level 9.1 mg/dL (8.5-10.1) Phosphorus Level 3.5 mg/dL (2.6-4.7) Albumin 2.7 g/dL (3.4-5.0) Images Images Renal US IMPRESSION: 1. Left renal atrophy. 2. Echogenic bilateral renal parenchyma, a finding which can be seen with medical renal disease. 3. Large post void bladder residual of 550 cc. 4. Nonvisualization of the right ureteral jet during the exam. Assessment/Plan Assessment/Plan 62 year old female with multiple hospitalizations and history of noncompliance with I and O cathing regiment. An SP tube has been attempted in the past but this was removed for UTI's. Can remove kerns catheter as soon as patient has I and O supplies. Whenever kerns catheter is removed, patient will need I and O supplies to continue QID in and out cathing. I did discuss with her potential consequences of noncompliance with I and O regiment, to include kidney fialure; patient verbalized understanding. Imaging does show signs of kidney injury; nephrology following. Discussed with patient that she needs to continue her I and O routine, whether she is at home or in the hospital; she has a history of very frequent hospitalizations. If she is unable to do I and O cathing due to weakness/ illness, etc, she needs to let the staff know so and indwelling kerns catheter can be inserted. Patient did verbalize understanding. RAFAEL CARBALLO MD 02/22/18 1248: UROLOGY CONSULT Assessment/Plan Assessment/Plan Patient was discharged prior to my rounding. Agree with resuming CIC. Can f/u with Dr. Coreas as previously arranged. CAROL MORENO APRN Feb 21, 2018 08:53 RAFAEL CARBALLO MD Feb 22, 2018 12:48
--- NOTE | 2018-02-21 09:17 | PDOC ---
PROGRESS NOTES Subjective Subjective No new complaints. Objective Objective Vital Signs Date Time Temp Pulse Resp B/P (MAP) Pulse Ox O2 Delivery O2 Flow Rate FiO2 02/21/18 08:07 Room Air 02/21/18 08:06 75 139/84 02/21/18 07:00 20 93 02/21/18 03:38 10.0 02/21/18 03:00 98.7 98.7 Intake and Output 02/21/18 07:00 Intake Total 2045 ml Output Total 1250 ml Balance 795 ml Intake Oral 2045 ml Output Urine Total 1250 ml Physical Exam Physical Exam She feels better with her back pain but still having problems with neurogenic bladder which is a long standing problem with her for which she needs to perform straight cath regularly. Assessment Assessment Problems Medical Problems: (1) Acute renal failure superimposed on chronic kidney disease Status: Acute (2) Hypokalemia Status: Acute (3) Vomiting and diarrhea Status: Acute Plan Plan of Intermediate when medically stable. Comment Review of Relevant I have reviewed the following items blade (where applicable) has been applied. Labs Laboratory Tests Test 02/20/18 02:55 02/21/18 06:57 White Blood Count 5.9 x10^3/uL (4.0-11.0) 7.4 x10^3/uL (4.0-11.0) Red Blood Count 3.94 x10^6/uL (3.50-5.40) 3.72 x10^6/uL (3.50-5.40) Hemoglobin 10.7 g/dL (12.0-15.5) 10.2 g/dL (12.0-15.5) Hematocrit 33.2 % (36.0-47.0) 31.2 % (36.0-47.0) Mean Corpuscular Volume 84 fL (79-100) 84 fL (79-100) Mean Corpuscular Hemoglobin 27 pg (25-35) 27 pg (25-35) Mean Corpuscular Hemoglobin Concent 32 g/dL (31-37) 33 g/dL (31-37) Red Cell Distribution Width 18.2 % (11.5-14.5) 18.2 % (11.5-14.5) Platelet Count 265 x10^3/uL (140-400) 246 x10^3/uL (140-400) Neutrophils (%) (Auto) 60 % (31-73) 62 % (31-73) Lymphocytes (%) (Auto) 26 % (24-48) 25 % (24-48) Monocytes (%) (Auto) 9 % (0-9) 8 % (0-9) Eosinophils (%) (Auto) 4 % (0-3) 4 % (0-3) Basophils (%) (Auto) 2 % (0-3) 1 % (0-3) Neutrophils # (Auto) 3.6 x10^3uL (1.8-7.7) 4.6 x10^3uL (1.8-7.7) Lymphocytes # (Auto) 1.5 x10^3/uL (1.0-4.8) 1.8 x10^3/uL (1.0-4.8) Monocytes # (Auto) 0.5 x10^3/uL (0.0-1.1) 0.6 x10^3/uL (0.0-1.1) Eosinophils # (Auto) 0.2 x10^3/uL (0.0-0.7) 0.3 x10^3/uL (0.0-0.7) Basophils # (Auto) 0.1 x10^3/uL (0.0-0.2) 0.1 x10^3/uL (0.0-0.2) Sodium Level 135 mmol/L (136-145) 139 mmol/L (136-145) Potassium Level 4.6 mmol/L (3.5-5.1) 4.1 mmol/L (3.5-5.1) Chloride Level 103 mmol/L (98-107) 104 mmol/L (98-107) Carbon Dioxide Level 29 mmol/L (21-32) 30 mmol/L (21-32) Anion Gap 3 (6-14) 5 (6-14) Blood Urea Nitrogen 21 mg/dL (7-20) 20 mg/dL (7-20) Creatinine 2.4 mg/dL (0.6-1.0) 2.2 mg/dL (0.6-1.0) Estimated GFR (Cockcroft-Gault) 20.5 22.7 Glucose Level 117 mg/dL (70-99) 88 mg/dL (70-99) Calcium Level 9.3 mg/dL (8.5-10.1) 9.1 mg/dL (8.5-10.1) Phosphorus Level 3.3 mg/dL (2.6-4.7) 3.5 mg/dL (2.6-4.7) Albumin 2.9 g/dL (3.4-5.0) 2.7 g/dL (3.4-5.0) Laboratory Tests Test 02/21/18 06:57 White Blood Count 7.4 x10^3/uL (4.0-11.0) Red Blood Count 3.72 x10^6/uL (3.50-5.40) Hemoglobin 10.2 g/dL (12.0-15.5) Hematocrit 31.2 % (36.0-47.0) Mean Corpuscular Volume 84 fL (79-100) Mean Corpuscular Hemoglobin 27 pg (25-35) Mean Corpuscular Hemoglobin Concent 33 g/dL (31-37) Red Cell Distribution Width 18.2 % (11.5-14.5) Platelet Count 246 x10^3/uL (140-400) Neutrophils (%) (Auto) 62 % (31-73) Lymphocytes (%) (Auto) 25 % (24-48) Monocytes (%) (Auto) 8 % (0-9) Eosinophils (%) (Auto) 4 % (0-3) Basophils (%) (Auto) 1 % (0-3) Neutrophils # (Auto) 4.6 x10^3uL (1.8-7.7) Lymphocytes # (Auto) 1.8 x10^3/uL (1.0-4.8) Monocytes # (Auto) 0.6 x10^3/uL (0.0-1.1) Eosinophils # (Auto) 0.3 x10^3/uL (0.0-0.7) Basophils # (Auto) 0.1 x10^3/uL (0.0-0.2) Sodium Level 139 mmol/L (136-145) Potassium Level 4.1 mmol/L (3.5-5.1) Chloride Level 104 mmol/L (98-107) Carbon Dioxide Level 30 mmol/L (21-32) Anion Gap 5 (6-14) Blood Urea Nitrogen 20 mg/dL (7-20) Creatinine 2.2 mg/dL (0.6-1.0) Estimated GFR (Cockcroft-Gault) 22.7 Glucose Level 88 mg/dL (70-99) Calcium Level 9.1 mg/dL (8.5-10.1) Phosphorus Level 3.5 mg/dL (2.6-4.7) Albumin 2.7 g/dL (3.4-5.0) Medications Current Medications Sodium Chloride 1,000 ml @ 150 mls/hr Q6H40M IV Last administered on 19:00; Start 02/17/18 at 19:00; Stop 02/17/18 at 21:46; Status DC Potassium Chloride (Klor-Con) 40 meq 1X ONCE PO Last administered on at 21:39; Start 02/17/18 at 21:30; Stop 02/17/18 at 21:31; Status DC Magnesium Sulfate 50 ml @ 25 mls/hr 1X ONCE IV Last administered on 02/18/18at 02:43; Start 02/17/18 at 22:00; Stop 02/17/18 at 23:59; Status DC Potassium Chloride (Klor-Con) 20 meq DAILY PO Last administered on 02/19/18at 07 :51; Start 02/18/18 at 09:00; Stop 02/19/18 at 15:01; Status DC Alprazolam (Xanax) 1 mg PRN TID PRN PO ANXIETY / AGITATION Last administered on 02/19/18 03:15; Start 02/17/18 at 21:45 Duloxetine HCl (Cymbalta) 90 mg DAILY PO Last administered on 02/21/18 08:05; Start 02/18/18 at 09:00 Ondansetron HCl (Zofran Odt) 4 mg Q8HRS PO Last administered on 02/21/18 06:37 ; Start 02/17/18 at 22:00 Oxycodone/ Acetaminophen (Percocet 7.5/ 325) 1 tab QID PO Last administered on 02/21/18 08:07; Start 02/18/18 at 09:00 Pantoprazole Sodium (Protonix) 40 mg DAILYAC PO Last administered on 02/21/18 08:04; Start 02/18/18 at 07:30 Oxycodone HCl (Roxicodone) 10 mg PRN Q6HRS PRN PO BREAKTHRU PAIN Last administered on 02/21/18 03:38; Start 02/17/18 at 22:00 Lidocaine (Lidoderm) 1 patch DAILY TD Last administered on 02/21/18 08:07; Start 02/18/18 at 09:00 Potassium Chloride/Dextrose/ Sod Cl 1,000 ml @ 100 mls/hr Q10H IV Last administered on 02/19/18 11:09; Start 02/17/18 at 22:00; Stop 02/19/18 at 15:01 ; Status DC Potassium Chloride (Klor-Con) 20 meq 1X ONCE PO Last administered on at 12:57; Start 02/18/18 at 13:00; Stop 02/18/18 at 13:01; Status DC Alprazolam (Xanax) 0.5 mg TID PO Last administered on 02/21/18 08:07; Start at 14:00 Amlodipine Besylate (Norvasc) 10 mg DAILY PO Last administered on 02/21/18 08: 06; Start 02/18/18 at 13:00 Methylprednisolone Acetate (DEPO-Medrol 40MG VIAL) 40 mg 1X ONCE IM Last administered on 02/19/18at 10:00; Start 02/19/18 at 10:00; Stop 02/19/18 at 10:01 ; Status DC Bupivacaine HCl (Sensorcaine-Mpf 0.25%) 10 ml 1X ONCE IJ Last administered on 02/19/18at 10:00; Start 02/19/18 at 10:00; Stop 02/19/18 at 10:01; Status DC Zolpidem Tartrate (Ambien) 5 mg PRN QHS PRN PO INSOMNIA Last administered on at 21:02; Start 02/19/18 at 20:30 Sodium Chloride 1,000 ml @ 75 mls/hr [id number] IV Last administered on 01:05; Start 02/20/18 at 11:45 Active Scripts Active Zofran Odt (Ondansetron) 4 Mg Tab.rapdis 1 Tab SL Q8HRS Percocet 7.5-325 Mg Tablet (Oxycodone/Acetaminophen) 1 Each Tablet 1 Tab PO QID Keflex (Cephalexin) 250 Mg Capsule 1 Cap PO TID Cymbalta (Duloxetine Hcl) 30 Mg Capsule. 90 Mg PO DAILY 30 Days Oxycodone Hcl 10 Mg Tablet 1 Tab PO PRN Q6HRS PRN 30 Days Alprazolam 0.5 Mg Tablet 1 Tab PO TID 30 Days Reported Amlodipine Besylate 10 Mg Tablet 10 Mg PO DAILY Alprazolam 1 Mg Tablet 1 Mg PO PRN TID PRN Nexium Capsule (Esomeprazole Magnesium) 40 Mg Capsule. 1 Cap PO DAILY Vitals/I & O Vital Sign - Last 24 Hours 02/20/18 02/20/18 02/20/18 02/20/18 11:00 12:33 15:00 16:58 Temp 98.1 98.3 98.1 98.3 Pulse 73 80 Resp 20 20 B/P (MAP) 166/97 (120) 134/80 (98) Pulse Ox 95 97 O2 Delivery Room Air Room Air Room Air Room Air 02/20/18 02/20/18 02/20/18 02/20/18 18:03 19:00 20:00 21:16 Temp 98.5 98.5 Pulse 78 Resp 20 B/P (MAP) 137/78 (97) Pulse Ox 40 95 O2 Delivery Tracheal Collar Room Air Room Air Room Air O2 Flow Rate 10.0 02/20/18 02/21/18 02/21/18 02/21/18 23:00 03:00 03:38 07:00 Temp 98.2 98.7 98.2 98.7 Pulse 77 73 75 Resp 18 18 20 B/P (MAP) 137/73 (94) 130/79 (96) 139/84 (102) Pulse Ox 95 96 95 93 O2 Delivery Room Air Room Air Room Air Room Air O2 Flow Rate 10.0 02/21/18 02/21/18 02/21/18 08:00 08:06 08:07 Pulse 75 B/P (MAP) 139/84 O2 Delivery Room Air Room Air Intake and Output 02/20/18 02/20/18 02/21/18 15:00 23:00 07:00 Intake Total 240 ml 1155 ml 650 ml Output Total 300 ml 950 ml Balance 240 ml 855 ml -300 ml Nutrition Consultation Dietary Evaluation: Recommendations by RD: Dietary education by RD Comments: provided diet education on renal diet handouts given to use at d/c Expected Outcomes/Goals: improvement on food choices/ better compliance w/ renal diet Interpretation of weight loss: >1-2% in 1 week Malnutrition Findings: Food and Nutrition Intake (Mod: <75% est energy req 7days Weight Status: Appropriate UCHE RASCON MD Feb 21, 2018 09:17
--- NOTE | 2018-02-21 09:39 | PDOC3 ---
Discharge Summary Visit Information Date of Admission: Feb 17, 2018 Date of Discharge: Feb 21, 2018 Admitting Diagnosis Comment: acute renal failure, on CKD 3, vasomotor nephropathy, appears dry, or ATN on CKD, renal following hypokalemia hypochloremia weakness and debility acute on chronic back pain with narcotic dependence, GERD, gastritis Final Diagnosis Problems Medical Problems: (1) Acute renal failure superimposed on chronic kidney disease Status: Acute (2) Hypokalemia Status: Acute (3) Vomiting and diarrhea Status: Acute Brief Hospital Course Allergies Allergies Coded Allergies Type Severity Reaction Last Updated Verified levofloxacin Allergy Intermediate 01/23/18 Yes I S O L A T I O N *CONTACT* Allergy Unknown 01/23/18 Yes diphenhydramine HCl Adverse Reaction Intermediate "Jittery on the inside" 01/23 Yes Vital Signs Vital Signs Date Time Temp Pulse Resp B/P (MAP) Pulse Ox O2 Delivery O2 Flow Rate FiO2 02/21/18 09:33 Room Air 02/21/18 08:06 75 139/84 02/21/18 07:00 20 93 02/21/18 03:38 10.0 02/21/18 03:00 98.7 98.7 Lab Results Laboratory Tests Test 02/20/18 02:55 02/21/18 06:57 White Blood Count 5.9 x10^3/uL (4.0-11.0) 7.4 x10^3/uL (4.0-11.0) Red Blood Count 3.94 x10^6/uL (3.50-5.40) 3.72 x10^6/uL (3.50-5.40) Hemoglobin 10.7 g/dL (12.0-15.5) 10.2 g/dL (12.0-15.5) Hematocrit 33.2 % (36.0-47.0) 31.2 % (36.0-47.0) Mean Corpuscular Volume 84 fL (79-100) 84 fL (79-100) Mean Corpuscular Hemoglobin 27 pg (25-35) 27 pg (25-35) Mean Corpuscular Hemoglobin Concent 32 g/dL (31-37) 33 g/dL (31-37) Red Cell Distribution Width 18.2 % (11.5-14.5) 18.2 % (11.5-14.5) Platelet Count 265 x10^3/uL (140-400) 246 x10^3/uL (140-400) Neutrophils (%) (Auto) 60 % (31-73) 62 % (31-73) Lymphocytes (%) (Auto) 26 % (24-48) 25 % (24-48) Monocytes (%) (Auto) 9 % (0-9) 8 % (0-9) Eosinophils (%) (Auto) 4 % (0-3) 4 % (0-3) Basophils (%) (Auto) 2 % (0-3) 1 % (0-3) Neutrophils # (Auto) 3.6 x10^3uL (1.8-7.7) 4.6 x10^3uL (1.8-7.7) Lymphocytes # (Auto) 1.5 x10^3/uL (1.0-4.8) 1.8 x10^3/uL (1.0-4.8) Monocytes # (Auto) 0.5 x10^3/uL (0.0-1.1) 0.6 x10^3/uL (0.0-1.1) Eosinophils # (Auto) 0.2 x10^3/uL (0.0-0.7) 0.3 x10^3/uL (0.0-0.7) Basophils # (Auto) 0.1 x10^3/uL (0.0-0.2) 0.1 x10^3/uL (0.0-0.2) Sodium Level 135 mmol/L (136-145) 139 mmol/L (136-145) Potassium Level 4.6 mmol/L (3.5-5.1) 4.1 mmol/L (3.5-5.1) Chloride Level 103 mmol/L (98-107) 104 mmol/L (98-107) Carbon Dioxide Level 29 mmol/L (21-32) 30 mmol/L (21-32) Anion Gap 3 (6-14) 5 (6-14) Blood Urea Nitrogen 21 mg/dL (7-20) 20 mg/dL (7-20) Creatinine 2.4 mg/dL (0.6-1.0) 2.2 mg/dL (0.6-1.0) Estimated GFR (Cockcroft-Gault) 20.5 22.7 Glucose Level 117 mg/dL (70-99) 88 mg/dL (70-99) Calcium Level 9.3 mg/dL (8.5-10.1) 9.1 mg/dL (8.5-10.1) Phosphorus Level 3.3 mg/dL (2.6-4.7) 3.5 mg/dL (2.6-4.7) Albumin 2.9 g/dL (3.4-5.0) 2.7 g/dL (3.4-5.0) Laboratory Tests Test 02/21/18 06:57 White Blood Count 7.4 x10^3/uL (4.0-11.0) Red Blood Count 3.72 x10^6/uL (3.50-5.40) Hemoglobin 10.2 g/dL (12.0-15.5) Hematocrit 31.2 % (36.0-47.0) Mean Corpuscular Volume 84 fL (79-100) Mean Corpuscular Hemoglobin 27 pg (25-35) Mean Corpuscular Hemoglobin Concent 33 g/dL (31-37) Red Cell Distribution Width 18.2 % (11.5-14.5) Platelet Count 246 x10^3/uL (140-400) Neutrophils (%) (Auto) 62 % (31-73) Lymphocytes (%) (Auto) 25 % (24-48) Monocytes (%) (Auto) 8 % (0-9) Eosinophils (%) (Auto) 4 % (0-3) Basophils (%) (Auto) 1 % (0-3) Neutrophils # (Auto) 4.6 x10^3uL (1.8-7.7) Lymphocytes # (Auto) 1.8 x10^3/uL (1.0-4.8) Monocytes # (Auto) 0.6 x10^3/uL (0.0-1.1) Eosinophils # (Auto) 0.3 x10^3/uL (0.0-0.7) Basophils # (Auto) 0.1 x10^3/uL (0.0-0.2) Sodium Level 139 mmol/L (136-145) Potassium Level 4.1 mmol/L (3.5-5.1) Chloride Level 104 mmol/L (98-107) Carbon Dioxide Level 30 mmol/L (21-32) Anion Gap 5 (6-14) Blood Urea Nitrogen 20 mg/dL (7-20) Creatinine 2.2 mg/dL (0.6-1.0) Estimated GFR (Cockcroft-Gault) 22.7 Glucose Level 88 mg/dL (70-99) Calcium Level 9.1 mg/dL (8.5-10.1) Phosphorus Level 3.5 mg/dL (2.6-4.7) Albumin 2.7 g/dL (3.4-5.0) Brief Hospital Course Ms. Rodriguez is a 62 old female who is very well-known to us, this time she comes in because of AK I on CK D stage III to 4, she appeared dry. Received IV fluids and creatinine is back to baseline which is 2.4. Some urinary retention which is chronic for her. We actually had a suprapubic catheter taken out because of her request. Now back to baseline, no white count , history of C. difficile diarrhea but not taking vancomycin also, not taking not having any more diarrhea. Also history of, dated UTI, she is off antibiotics now just Keflex on last discharge Requests Xanax and Percocet prescription for chronic back pain Consulted physiatry, no further conditions No PT needs Discharge time less than 30 minutes Discharge Information Condition at Discharge: Improved, Stable Disposition/Orders: D/C to Home Scheduled Alprazolam (Alprazolam) 0.5 Mg Tablet, 1 TAB PO TID for 30 Days, #90 Prescribed by: LIDIA URIAS on 11/03/17 0902 Last Action: Continued on 02/18/181227 by WEI COLLINS MD Amlodipine Besylate (Amlodipine Besylate) 10 Mg Tablet, 10 MG PO DAILY, ( Reported) Entered as Reported by: TYLOR BAH on 02/18/18 0059 Last Taken: UNKNOWN on Unknown Date & Time Last Action: Continued on 02/18 by WEI COLLINS MD Cephalexin (Keflex) 250 Mg Capsule, 1 CAP PO TID, #21 Prescribed by: ERNIE FAITH on 02/03/18 1148 Last Action: HELD on 02/18/181227 by WEI COLLINS MD Duloxetine Hcl (Cymbalta) 30 Mg Capsule.dr, 90 MG PO DAILY for 30 Days, #90 Prescribed by: KERRIE GONZALEZ MD on 11/20/17 1643 Last Action: Continued on 02/17/182141 by ERNIE FAITH Esomeprazole Magnesium (Nexium Capsule) 40 Mg Capsule.dr, 1 CAP PO DAILY, #30 Ref 5 (Reported) Entered as Reported by: Jesus Mcmullen on 10/04/172003 Last Action: Converted on 02/17/182141 by ERNIE FAITH Ondansetron (Zofran Odt) 4 Mg Tab.rapdis, 1 TAB SL Q8HRS, #10 Prescribed by: JONI SLAUGHTER APRN on 02/10/186 Last Action: Continued on 02/17/182142 by ERNIE FAITH Oxycodone/Apap 7.5-325 (Percocet 7.5-325 Mg Tablet) 1 Each Tablet, 1 TAB PO QID , #40 Prescribed by: ERNIE FAITH on 02/03/18 1149 Last Action: Continued on 02/17/182141 by ERNIE FAITH Scheduled PRN Alprazolam (Alprazolam) 1 Mg Tablet, 1 MG PO PRN TID PRN for ANXIETY / AGITATION , (Reported) Entered as Reported by: ROLANDO JI on 01/22/18 0024 Last Action: Continued on 02/17/182141 by ERNIE FAITH Oxycodone Hcl (Oxycodone Hcl) 10 Mg Tablet, 1 TAB PO PRN Q6HRS PRN for PAIN for 30 Days, #20 Prescribed by: LIDIA URIAS on 11/03/1702 Last Action: Converted on 02/17/182141 by LIDIA CARRENO MD Feb 21, 2018 09:39
[2018-02-21] MEDS ORDERED: IRON POLYSACCHARIDE COMPLEX 150 MG CAPSULE PO SCH (10:00)
--- NOTE | 2018-02-21 10:29 | PDOC ---
SUBJECTIVE ROS No new concerns OBJECTIVE Vital Signs Vital Signs Date Time Temp Pulse Resp B/P (MAP) Pulse Ox O2 Delivery O2 Flow Rate FiO2 02/21/18 09:33 Room Air 02/21/18 08:06 75 139/84 02/21/18 07:00 20 93 02/21/18 03:38 10.0 02/21/18 03:00 98.7 98.7 I & 0 Intake and Output 02/21/18 07:00 Intake Total 2045 ml Output Total 1250 ml Balance 795 ml Intake Oral 2045 ml Output Urine Total 1250 ml PHYSICAL EXAM Physical Exam General: NAD HEENT: OM moist neck Supple Lungs: Clear to auscultation Bilat, Non labored Heart - RRR, ANJELICA+ no gallops Abdomen: Normal bowel sounds, Soft Extremities: No edema Skin: No rashes Neuro: Grossly Normal Skin No rash Drummond + , No CVA or SP tenderness DIAGNOSIS/ASSESSMENT Assessment & Plan AK I on CKD :Multifactorial- prerenal , ?LUGO(neurogenic bladder), decreased PO intake Improving Multiple Hospitalizations with GILES Hx of Urinary retention , Non compliant with straight cath at home SP catheter was removed by Urology due to UTI's 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 Presumably due to history of neurogenic bladder and noncompliance with self catheter possible reflux nephropathy She reports she follows with Dr. rCawford Neph- hasnt seen him recently as she has been Hospitalized x 3 in past 1 Month Hypokalemia -Normal Hypercalcemia- sec to Dehydration Resolved today Anemia - Hgb stable HTN- Stable CT scan-- 1. There is atrophy of the kidneys, right greater than left. There is increased echogenicity of the renal parenchyma suggestive of medical renal disease. There is mild dilatation of the renal collecting systems, improved since the examination from 09/03/2017. Findings may be secondary to chronic urinary retention. 2. No evidence for cholelithiasis. Problems: COMMENT/RELEVANT DATA Meds Current Medications Medications (Trade) Dose Ordered Sig/Taz Start Time Stop Time Status Last Admin Dose Admin Alprazolam (Xanax) 0.5 mg TID 02/18/18 14:00 02/21/18 08:07 0.5 MG Amlodipine Besylate (Norvasc) 10 mg DAILY 02/18/18 13:00 02/21/18 08:06 10 MG Bupivacaine HCl (Sensorcaine-Mpf 0.25%) 10 ml 1X ONCE 02/19/18 10:00 02/19/18 10:01 DC 02/19/18 10:00 10 ML Duloxetine HCl (Cymbalta) 90 mg DAILY 02/18/18 09:00 02/21/18 08:05 90 MG Lidocaine (Lidoderm) 1 patch DAILY 02/18/18 09:00 02/21/18 08:07 1 PATCH Magnesium Sulfate 50 ml @ 25 mls/hr 1X ONCE 02/17/18 22:00 02/17/18 23:59 DC 02/18/18 02:43 25 MLS/HR Methylprednisolone Acetate (DEPO-Medrol 40MG VIAL) 40 mg 1X ONCE 02/19/18 10:00 02/19/18 10:01 DC 02/19/18 10:00 40 MG Ondansetron HCl (Zofran Odt) 4 mg Q8HRS 02/17/18 22:00 02/21/18 06:37 4 MG Oxycodone HCl (Roxicodone) 10 mg PRN Q6HRS PRN 02/17/18 22:00 02/21/18 03:38 10 MG Oxycodone/ Acetaminophen (Percocet 7.5/ 325) 1 tab QID 02/18/18 09:00 02/21/18 08:07 1 TAB Pantoprazole Sodium (Protonix) 40 mg DAILYAC 02/18/18 07:30 02/21/18 08:04 40 MG Polysaccharide Iron Complex (Niferex 150) 150 mg DAILY 02/21/18 10:00 02/21/18 09:40 150 MG Potassium Chloride/Dextrose/ Sod Cl 1,000 ml @ 100 mls/hr Q10H 02/17/18 22:00 02/19/18 15:01 DC 02/19/18 11:09 100 MLS/HR Potassium Chloride (Klor-Con) 20 meq 1X ONCE 02/18/18 13:00 02/18/18 13:01 DC 02/18/18 12:57 20 MEQ Sodium Chloride 1,000 ml @ 75 mls/hr [id number] 02/20/18 11:45 02/21/18 01:05 75 MLS/HR Zolpidem Tartrate (Ambien) 5 mg PRN QHS PRN 02/19/18 20:30 02/19/18 21:02 5 MG Lab Laboratory Tests Test 02/21/18 06:57 White Blood Count 7.4 x10^3/uL (4.0-11.0) Red Blood Count 3.72 x10^6/uL (3.50-5.40) Hemoglobin 10.2 g/dL (12.0-15.5) Hematocrit 31.2 % (36.0-47.0) Mean Corpuscular Volume 84 fL (79-100) Mean Corpuscular Hemoglobin 27 pg (25-35) Mean Corpuscular Hemoglobin Concent 33 g/dL (31-37) Red Cell Distribution Width 18.2 % (11.5-14.5) Platelet Count 246 x10^3/uL (140-400) Neutrophils (%) (Auto) 62 % (31-73) Lymphocytes (%) (Auto) 25 % (24-48) Monocytes (%) (Auto) 8 % (0-9) Eosinophils (%) (Auto) 4 % (0-3) Basophils (%) (Auto) 1 % (0-3) Neutrophils # (Auto) 4.6 x10^3uL (1.8-7.7) Lymphocytes # (Auto) 1.8 x10^3/uL (1.0-4.8) Monocytes # (Auto) 0.6 x10^3/uL (0.0-1.1) Eosinophils # (Auto) 0.3 x10^3/uL (0.0-0.7) Basophils # (Auto) 0.1 x10^3/uL (0.0-0.2) Sodium Level 139 mmol/L (136-145) Potassium Level 4.1 mmol/L (3.5-5.1) Chloride Level 104 mmol/L (98-107) Carbon Dioxide Level 30 mmol/L (21-32) Anion Gap 5 (6-14) Blood Urea Nitrogen 20 mg/dL (7-20) Creatinine 2.2 mg/dL (0.6-1.0) Estimated GFR (Cockcroft-Gault) 22.7 Glucose Level 88 mg/dL (70-99) Calcium Level 9.1 mg/dL (8.5-10.1) Phosphorus Level 3.5 mg/dL (2.6-4.7) Albumin 2.7 g/dL (3.4-5.0) Results All relevant outside records, renal labs, imaging studies, telemetry/EKG's were reviewed. ALDAIR KRAFT MD Feb 21, 2018 10:29
[2018-02-21 11:00] VITALS: BP 137/72
[2018-02-21 19:13] LABS: IMMUNOGLOBULIN A 358 mg/dL (87-352); IMMUNOGLOBULIN G 994 mg/dL (700-1600); IMMUNOGLOBULIN M 96 mg/dL (26-217)
== END 2018-02-21 15:35 | disposition home or self-care (01) | DRG 683 ==
LOC: ER 18:13 → 5 SOUTH 21:15
PROVIDERS: ADMIT Internal Medicine; ATTEND Internal Medicine
DX: N17.0 Acute kidney failure with tubular necrosis (principal); F11.20 Opioid dependence, uncomplicated; E87.6 Hypokalemia; K21.0 Gastro-esophageal reflux disease with esophagitis; I12.9 Hypertensive chronic kidney disease with stage 1 through stage 4 chronic kidney disease, or unspecified chronic kidney disease; Z96.652 Presence of left artificial knee joint; M79.7 Fibromyalgia; F41.9 Anxiety disorder, unspecified; E78.5 Hyperlipidemia, unspecified; R01.1 Cardiac murmur, unspecified; F10.20 Alcohol dependence, uncomplicated; D64.9 Anemia, unspecified; G89.29 Other chronic pain; M54.2 Cervicalgia; B95.62 Methicillin resistant Staphylococcus aureus infection as the cause of diseases classified elsewhere; F17.200 Nicotine dependence, unspecified, uncomplicated; E87.8 Other disorders of electrolyte and fluid balance, not elsewhere classified; F12.90 Cannabis use, unspecified, uncomplicated; M47.26 Other spondylosis with radiculopathy, lumbar region; M21.372 Foot drop, left foot; M17.11 Unilateral primary osteoarthritis, right knee; N18.3 Chronic kidney disease, stage 3 (moderate); E83.52 Hypercalcemia; F32.9 Major depressive disorder, single episode, unspecified; Z87.19 Personal history of other diseases of the digestive system; Z76.5 Malingerer [conscious simulation]; Z82.49 Family history of ischemic heart disease and other diseases of the circulatory system; Z91.19 Patient's noncompliance with other medical treatment and regimen; Z88.8 Allergy status to other drugs, medicaments and biological substances
CPT/HCPCS: 36415; 71045; 76770; 80048; 80053; 80069; 80307; 81001; 82150; 83690; 83735; 84166; 84484; 85025; 86334; 93005; 96360; 96361; G0480; J1030; J3475; J3490; J7030; Q0162; 99285-25; G0479

== ENCOUNTER 2018-04-01 17:31 | Emergency (ER) | payer MEDICARE ==
[~2018-04-01] VITALS: Ht 162.6 cm; Wt 65.8 kg
[~2018-04-01 17:31] MED LIST changes: -AMLO10TA2 PO; +AMLO10TA6 PO; -AMLO5TAB2 PO; +AMLO5TAB7 PO
[2018-04-01 18:00] LABS: BILIRUBIN,URINE NEGATIVE (NEG); CLARITY,URINE TURBID; COLOR,URINE YELLOW; NITRITE,URINE NEGATIVE (NEG); PROTEIN,URINE 100 mg/dL (NEG-TRACE); UROBILINOGEN,URINE 0.2 mg/dL (0.2 mg/dL)
[2018-04-01] MEDS ORDERED: IV NORMAL SALINE 1000ML BAG 1,000 ML IV ONE (18:15)
[2018-04-01] MEDS ORDERED: LABETALOL 20 MG/4 ML DISP.SYRIN. IVP ONE (18:15)
[2018-04-01 18:27] LABS: BACTERIA,URINE FEW /HPF (0-FEW); SQUAMOUS EPITHELIAL CELL,UR OCC /LPF; WBC,URINE >40 /HPF (0-4)
--- NOTE | 2018-04-01 18:29 | PHYS DOC ---
Past Medical History Past Medical History: Arthritis, Hypertension, Renal Disease, Other Additional Past Medical Histor: FIBROMIALGIA,VRE,C-DIFF Past Surgical History: Knee Replacement, Other Additional Past Surgical Histo: BACK AND FEET SURGERY Alcohol Use: None Drug Use: None Adult General Chief Complaint Chief Complaint: ABDOMINAL PAIN HPI HPI Patient is a 62 year old female with history of arthritis, chronic back pain, renal failure, who presents today with multiple complaints. Patient states she' s had dysuria since this morning, she states she feels her chronic back pain has gotten worse. She is also complaining of hallucinations. She states today one of the family members walked into the house and found her talking to herself. Patient denies any fever nausea vomiting. Denies any chest pain or shortness of breath. She states she believes she has a UTI. She states she has taken oxycodone for her pain with no relief. Review of Systems Review of Systems Constitutional: Denies fever or chills [] Eyes: Denies change in visual acuity, redness, or eye pain [] HENT: Denies nasal congestion or sore throat [] Respiratory: Denies cough or shortness of breath [] Cardiovascular: No additional information not addressed in HPI [] GI: Denies abdominal pain, nausea, vomiting, bloody stools or diarrhea [] : Reports dysuria, denies hematuria [] Musculoskeletal: Denies back pain or joint pain [] Integument: Denies rash or skin lesions [] Neurologic: Reports hallucinations. Denies headache, focal weakness or sensory changes [] All other systems were reviewed and found to be within normal limits, except as documented in this note. Current Medications Current Medications Current Medications Medications (Trade) Dose Ordered Sig/Taz Start Time Stop Time Status Last Admin Dose Admin Ceftriaxone Sodium 50 ml @ 100 mls/hr 1X ONCE 04/01/18 19:45 04/01/18 20:14 DC 04/01/18 20:04 100 MLS/HR Clonidine HCl (Catapres) 0.2 mg 1X ONCE 04/01/18 20:30 04/01/18 20:31 DC Ketorolac Tromethamine (Toradol 30mg Vial) 30 mg 1X ONCE 04/01/18 20:00 04/01/18 20:01 DC 04/01/18 20:04 30 MG Labetalol HCl (Normodyne Iv Push) 10 mg 1X ONCE 04/01/18 18:15 04/01/18 18:16 DC Morphine Sulfate (Morphine Sulfate) 5 mg 1X ONCE 04/01/18 20:30 04/01/18 20:31 DC Sodium Chloride 1,000 ml @ 1,000 mls/hr 1X ONCE 04/01/18 18:15 04/01/18 19:14 DC 04/01/18 18:59 1,000 MLS/HR Allergies Allergies Allergies Coded Allergies Type Severity Reaction Last Updated Verified levofloxacin Allergy Intermediate 01/23/18 Yes I S O L A T I O N *CONTACT* Allergy Unknown 01/23/18 Yes diphenhydramine HCl Adverse Reaction Intermediate "Jittery on the inside" 01/23 Yes Physical Exam Physical Exam Constitutional: Well developed, well nourished, no acute distress, non-toxic appearance. [] HENT: Normocephalic, atraumatic, bilateral external ears normal, oropharynx moist, no oral exudates, nose normal. [] Eyes: PERRLA, EOMI, conjunctiva normal, no discharge. [] Neck: Normal range of motion, no tenderness, supple, no stridor. [] Cardiovascular:Heart rate regular rhythm, no murmur [] Lungs & Thorax: Bilateral breath sounds clear to auscultation [] Abdomen: Bowel sounds normal, soft, no tenderness, no masses, no pulsatile masses. [] Skin: Warm, dry, no erythema, no rash. [] Back: No tenderness, no CVA tenderness. [] Extremities: No tenderness, no cyanosis, no clubbing, ROM intact, no edema. [] Neurologic: Alert and oriented X 3, normal motor function, normal sensory function, no focal deficits noted. Cranial nerves II through XII intact Psychologic: Flat affect. Current Patient Data Vital Signs Vital Signs Date Time Temp Pulse Resp B/P (MAP) Pulse Ox O2 Delivery O2 Flow Rate FiO2 04/01/18 19:04 90 17 177/99 (125) 98 Room Air 04/01/18 17:40 98.5 98.5 Lab Values Laboratory Tests Test 04/01/18 17:45 04/01/18 18:40 Urine Collection Type Void Urine Color Yellow Urine Clarity Turbid Urine pH 6.0 Urine Specific [place] 1.010 Urine Protein 100 mg/dL (NEG-TRACE) Urine Glucose (UA) Negative mg/dL (NEG) Urine Ketones (Stick) Negative mg/dL (NEG) Urine Blood Moderate (NEG) Urine Nitrite Negative (NEG) Urine Bilirubin Negative (NEG) Urine Urobilinogen Dipstick 0.2 mg/dL (0.2 mg/dL) Urine Leukocyte Esterase Large (NEG) Urine RBC 1-2 /HPF (0-2) Urine WBC >40 /HPF (0-4) Urine Squamous Epithelial Cells Occ /LPF Urine Bacteria Few /HPF (0-FEW) Urine Opiates Screen Pos (NEG) Urine Methadone Screen Neg (NEG) Urine Barbiturates Neg (NEG) Urine Phencyclidine Screen Neg (NEG) Urine Amphetamine/Methamphetamine Neg (NEG) Urine Benzodiazepines Screen Neg (NEG) Urine Cocaine Screen Neg (NEG) Urine Cannabinoids Screen Neg (NEG) Urine Ethyl Alcohol Neg (NEG) White Blood Count 6.9 x10^3/uL (4.0-11.0) Red Blood Count 3.55 x10^6/uL (3.50-5.40) Hemoglobin 10.0 g/dL (12.0-15.5) L Hematocrit 30.6 % (36.0-47.0) L Mean Corpuscular Volume 86 fL (79-100) Mean Corpuscular Hemoglobin 28 pg (25-35) Mean Corpuscular Hemoglobin Concent 33 g/dL (31-37) Red Cell Distribution Width 18.8 % (11.5-14.5) H Platelet Count 215 x10^3/uL (140-400) Neutrophils (%) (Auto) 58 % (31-73) Lymphocytes (%) (Auto) 26 % (24-48) Monocytes (%) (Auto) 12 % (0-9) H Eosinophils (%) (Auto) 3 % (0-3) Basophils (%) (Auto) 1 % (0-3) Neutrophils # (Auto) 4.0 x10^3uL (1.8-7.7) Lymphocytes # (Auto) 1.8 x10^3/uL (1.0-4.8) Monocytes # (Auto) 0.8 x10^3/uL (0.0-1.1) Eosinophils # (Auto) 0.2 x10^3/uL (0.0-0.7) Basophils # (Auto) 0.1 x10^3/uL (0.0-0.2) Sodium Level 138 mmol/L (136-145) Potassium Level 3.7 mmol/L (3.5-5.1) Chloride Level 101 mmol/L (98-107) Carbon Dioxide Level 29 mmol/L (21-32) Anion Gap 8 (6-14) Blood Urea Nitrogen 32 mg/dL (7-20) H Creatinine 2.8 mg/dL (0.6-1.0) H Estimated GFR (Cockcroft-Gault) 17.2 BUN/Creatinine Ratio 11 (6-20) Glucose Level 122 mg/dL (70-99) H Calcium Level 9.5 mg/dL (8.5-10.1) Magnesium Level 2.2 mg/dL (1.8-2.4) Total Bilirubin 0.1 mg/dL (0.2-1.0) L Aspartate Amino Transferase (AST) 20 U/L (15-37) Alanine Aminotransferase (ALT) 15 U/L (14-59) Alkaline Phosphatase 75 U/L (46-116) Troponin I Quantitative < 0.017 ng/mL (0.000-0.055) HN-Lnt-A-Type Natriuretic Peptide 2161 pg/mL (0-124) H Total Protein 7.1 g/dL (6.4-8.2) Albumin 2.9 g/dL (3.4-5.0) L Albumin/Globulin Ratio 0.7 (1.0-1.7) L Laboratory Tests 04/01/18 18:40 Laboratory Tests 04/01/18 18:40 EKG EKG [] Radiology/Procedures Radiology/Procedures []PROCEDURE: CT HEAD WO CONTRAST CT scan of the head without contrast 04/01/2018 Clinical History: Altered mental status and hallucinations. Technique: Unenhanced, contiguous, 5 mm axial sections were obtained through the head. One or more of the following individualized dose reduction techniques were utilized for this study: 1. Automated exposure control. 2. Adjustment of the mA and/or kV according to patient size. 3. Use of iterative reconstruction technique. Findings: Comparison study is dated 02/01/2018. There is generalized parenchymal atrophy. Areas of decreased attenuation are seen within the periventricular and subcortical white matter of both cerebral hemispheres consistent with areas of small vessel ischemic disease. No acute parenchymal abnormality is seen. No extra-axial fluid collection is noted. No skull fracture is seen. Impression: No acute intracranial abnormality is seen. Electronically signed by: Luan Eubanks MD (04/01/2018 7:09 PM) [facility] DICTATED and SIGNED BY: LUAN EUBANKS MD DATE: 04/01/181904 Course & Med Decision Making Course & Med Decision Making Pertinent Labs and Imaging studies reviewed. (See chart for details) This is a 62-year-old female patient presenting to the ED today complaining of hallucinations, dysuria and increased chronic low back pain. CT of the head is negative for any acute findings, CBC with normal WBC, CMP with creatinine of 2.8 BUN 32, patient has history of renal insufficiency and this creatinine is around her baseline. Urine noted for UTI. Patient was discharged on cephalexin. She was given Rocephin IV in the ED. She is alert oriented 3. She's not had any hallucination episodes. Follow-up with PCP in 2-7 days. Provided return precautions and discharged in stable condition. Her blood pressure was 224/115 on arrival to the ED. Patient states she has not taken her lisinopril for today. She was given pain medicine in the ED, blood pressure is still 177/99, also given clonidine. Dragon Disclaimer Dragon Disclaimer This electronic medical record was generated, in whole or in part, using a voice recognition dictation system. Departure Departure Impression: Primary Impression: CKD (chronic kidney disease) stage 4, GFR 15-29 ml/min Additional Impressions: UTI (urinary tract infection) Hypertension Disposition: 01 HOME, SELF-CARE Condition: STABLE Referrals: NO PCP (PCP) follow up with your doctor in 2-7 days Patient Instructions: Hypertension, Kidney Failure, [id number], Urinary Tract Infection Additional Instructions: You were evaluated in the emergency room and noted to have urinary tract infection. We put you on antibiotics, ensure you complete them. Follow-up with your doctor in 2-7 days. Come back to the ED at any point symptoms worsen. Scripts Cephalexin (CEPHALEXIN) 500 Mg Tablet 1 TAB PO BID, #14 TAB Prov: TK COLVIN APRN 04/01/18 Problem Qualifiers Additional Impressions: UTI (urinary tract infection) Urinary tract infection type: site unspecified Hematuria presence: without hematuria Qualified Codes: N39.0 - Urinary tract infection, site not specified Hypertension Hypertension type: unspecified Qualified Codes: I10 - Essential (primary) hypertension TK COLVIN APRN Apr 01, 2018 18:29
[2018-04-01 18:41] LABS: BARBITURATES NEG (NEG); BENZODIAZEPINES NEG (NEG); CANNABINOIDS NEG (NEG); COCAINE NEG (NEG); METHADONE NEG (NEG); OPIATES POS (NEG); PHENCYCLIDINE NEG (NEG)
[2018-04-01 18:44] LABS: AMPHETAMINE/METHAMPHETAMINE NEG (NEG)
[2018-04-01 18:48] LABS: BASO # 0.1 x10^3/uL (0.0-0.2); BASO % 1 % (0-3); EOS # 0.2 x10^3/uL (0.0-0.7); EOS % 3 % (0-3); HEMATOCRIT 30.6 % (36.0-47.0); LYMPH # 1.8 x10^3/uL (1.0-4.8); LYMPH % 26 % (24-48); MEAN CORPUSCULAR HEMOGLOBIN 28 pg (25-35); MEAN CORPUSCULAR HGB CONC 33 g/dL (31-37); MEAN CORPUSCULAR VOLUME 86 fL (79-100); MONO # 0.8 x10^3/uL (0.0-1.1); MONO % 12 % (0-9); NEUT % 58 % (31-73); PLATELET COUNT 215 x10^3/uL (140-400); RED BLOOD COUNT 3.55 x10^6/uL (3.50-5.40); RED CELL DISTRIBUTION WIDTH 18.8 % (11.5-14.5); WHITE BLOOD COUNT 6.9 x10^3/uL (4.0-11.0)
--- NOTE | 2018-04-01 18:58 | EKG ---
[facility] [address] [place] [address] Test Date: 2018-04-01 Test Time: 18:53:52 Pat Name: SANTI HERRON Department: Room: Gender: F [employer]: TW : 1955 Requested By: TK COLVIN Order Number: [id number] Reading MD: Viraj Sullivan MD Measurements Intervals [place] Rate: 91 P: 42 MA: 174 QRS: 17 QRSD: 80 T: 24 QT: 388 QTc: 479 Interpretive Statements SINUS RHYTHM PROLONGED QT Electronically Signed On 04-07-2018 10:36:19 CDT by Viraj Sullivan MD
[2018-04-01 19:08] LABS: CALCIUM 9.5 mg/dL (8.5-10.1); CREATININE 2.8 mg/dL (0.6-1.0); GFR 17.2; POTASSIUM 3.7 mmol/L (3.5-5.1)
[2018-04-01 19:13] LABS: ALBUMIN 2.9 g/dL (3.4-5.0); ALBUMIN/GLOBULIN RATIO 0.7 (1.0-1.7); MAGNESIUM 2.2 mg/dL (1.8-2.4); TOTAL BILIRUBIN 0.1 mg/dL (0.2-1.0); TOTAL PROTEIN 7.1 g/dL (6.4-8.2)
--- NOTE | 2018-04-01 19:13 | RAD ---
CT scan of the head without contrast 04/01/2018 Clinical History: Altered mental status and hallucinations. Technique: Unenhanced, contiguous, 5 mm axial sections were obtained through the head. One or more of the following individualized dose reduction techniques were utilized for this study: 1. Automated exposure control. 2. Adjustment of the mA and/or kV according to patient size. 3. Use of iterative reconstruction technique. Findings: Comparison study is dated 02/01/2018. There is generalized parenchymal atrophy. Areas of decreased attenuation are seen within the periventricular and subcortical white matter of both cerebral hemispheres consistent with areas of small vessel ischemic disease. No acute parenchymal abnormality is seen. No extra-axial fluid collection is noted. No skull fracture is seen. Impression: No acute intracranial abnormality is seen. Electronically signed by: Luan Villasenor MD (04/01/2018 7:09 PM) [facility]
[2018-04-01] MEDS ORDERED: KETOROLAC 30 MG/ML VIAL. IV ONE (20:00)
[2018-04-01] MEDS ORDERED: cloNIDine HCL 0.1 MG TABLET PO ONE (20:30)
[2018-04-01] MEDS ORDERED: MORPHINE SULFATE 10 MG/ML VIAL. IV ONE (20:30)
[2018-04-01] MEDS ORDERED: CEPH500T PO (20:42)
[2018-04-01 20:50] VITALS: BP 184/92
--- NOTE | 2018-04-01 22:34 | RAD ---
AP portable chest radiograph 04/01/2018 Clinical History: Hypertension. Mid back pain. An AP erect portable digital radiograph of the chest was obtained. Comparison study is dated 02/17/2018. The cardiac silhouette is mildly enlarged. The thoracic aorta is tortuous. Atherosclerotic calcification of the thoracic aorta is seen. No acute pulmonary infiltrate is seen. No pleural effusion or pneumothorax is noted. Degenerative changes are seen involving the thoracic spine. Impression: No acute abnormality is seen. Electronically signed by: Luan Villasenor MD (04/01/2018 10:30 PM) [facility]
== END 2018-04-01 20:57 | disposition home or self-care (01) ==
LOC: ER 17:31
DX: I12.9 Hypertensive chronic kidney disease with stage 1 through stage 4 chronic kidney disease, or unspecified chronic kidney disease (principal); N18.4 Chronic kidney disease, stage 4 (severe); N39.0 Urinary tract infection, site not specified; M54.9 Dorsalgia, unspecified; G89.29 Other chronic pain; R44.3 Hallucinations, unspecified; M19.90 Unspecified osteoarthritis, unspecified site; Z96.659 Presence of unspecified artificial knee joint; Z88.8 Allergy status to other drugs, medicaments and biological substances; Z88.1 Allergy status to other antibiotic agents; Z91.041 Radiographic dye allergy status
CPT/HCPCS: 36415; 70450; 71045; 80053; 80307; 81001; 83735; 83880; 84484; 85025; 87086; 93005; 96365; 96375; 99285; J0690; J1885; J2270; J3490; J7030; G0479

== ENCOUNTER 2018-04-06 15:43 | Emergency (ER) | payer MEDICARE ==
[~2018-04-06] VITALS: Ht 162.6 cm; Wt 65.8 kg
[~2018-04-06 15:43] MED LIST changes: +CEPH500T PO
[2018-04-06 16:12] VITALS: BP 202/113
[2018-04-06] MEDS ORDERED: ONDANSETRON PF 4 MG/2 ML VIAL. IV ONE (16:15)
[2018-04-06] MEDS ORDERED: METOCLOPRAMIDE HCL 10 MG/2 ML VIAL. IV ONE (16:15)
[2018-04-06] MEDS ORDERED: HALOPERIDOL LACTATE 5 MG/ML VIAL. IVP ONE (16:15)
[2018-04-06 16:34] LABS: BASO # 0.1 x10^3/uL (0.0-0.2); BASO % 1 % (0-3); EOS % 0 % (0-3); HEMATOCRIT 38.4 % (36.0-47.0); LYMPH # 1.2 x10^3/uL (1.0-4.8); LYMPH % 10 % (24-48); MEAN CORPUSCULAR HEMOGLOBIN 28 pg (25-35); MEAN CORPUSCULAR HGB CONC 34 g/dL (31-37); MEAN CORPUSCULAR VOLUME 83 fL (79-100); MONO # 0.6 x10^3/uL (0.0-1.1); MONO % 5 % (0-9); NEUT # 9.5 x10^3uL (1.8-7.7); NEUT % 84 % (31-73); PLATELET COUNT 371 x10^3/uL (140-400); RED BLOOD COUNT 4.61 x10^6/uL (3.50-5.40); RED CELL DISTRIBUTION WIDTH 19.4 % (11.5-14.5); WHITE BLOOD COUNT 11.3 x10^3/uL (4.0-11.0)
[2018-04-06 16:41] LABS: CALCIUM 10.5 mg/dL (8.5-10.1); GFR 25.3; POTASSIUM 4.3 mmol/L (3.5-5.1)
--- NOTE | 2018-04-06 16:41 | PHYS DOC ---
Past Medical History Past Medical History: Hypertension Additional Past Medical Histor: FIBROMIALGIA,VRE,C-DIFF Past Surgical History: Knee Replacement, Other Additional Past Surgical Histo: BACK AND FEET SURGERY Alcohol Use: Heavy Drug Use: None Adult General Chief Complaint Chief Complaint: NAUSEA/VOMITING/DIARRHA HPI HPI Patient is a 62 year old presented to ER today for evaluation of nausea vomiting and abdominal pain since this morning. Patient had chronic abdominal pain, she had been evaluated here multiple times for the same medical condition. Patient was seen here on the second of this month for the same problem. She also complaint of anxiety. She denies any fever, no diarrhea, no headache, no blood in her urine or vomitus. Review of Systems Review of Systems Constitutional: Denies fever or chills [] Eyes: Denies change in visual acuity, redness, or eye pain [] HENT: Denies nasal congestion or sore throat [] Respiratory: Denies cough or shortness of breath [] Cardiovascular: No additional information not addressed in HPI [] GI: POSITIVE FOR abdominal pain, nausea, vomiting, no bloody stools or diarrhea [] : Denies dysuria or hematuria [] Musculoskeletal: Denies back pain or joint pain [] Integument: Denies rash or skin lesions [] Neurologic: Denies headache, focal weakness or sensory changes [] Endocrine: Denies polyuria or polydipsia [] psych: POSITIVE FOR ANXIETY All other systems were reviewed and found to be within normal limits, except as documented in this note. Current Medications Current Medications Current Medications Medications (Trade) Dose Ordered Sig/Taz Start Time Stop Time Status Last Admin Dose Admin Haloperidol Lactate (Haldol Inj) 5 mg 1X ONCE 04/06/18 16:15 04/06/18 16:17 DC 04/06/18 16:37 5 MG Lorazepam (Ativan) 1 mg 1X ONCE 04/06/18 16:15 04/06/18 16:17 DC 04/06/18 16:37 1 MG Metoclopramide HCl (Reglan Vial) 10 mg 1X ONCE 04/06/18 16:15 04/06/18 16:17 DC 04/06/18 16:37 10 MG Ondansetron HCl (Zofran) 4 mg 1X ONCE 04/06/18 16:15 04/06/18 16:17 DC 04/06/18 16:37 4 MG Sodium Chloride 500 ml @ 500 mls/hr 1X ONCE 04/06/18 17:15 04/06/18 18:14 Allergies Allergies Allergies Coded Allergies Type Severity Reaction Last Updated Verified levofloxacin Allergy Intermediate 01/23/18 Yes I S O L A T I O N *CONTACT* Allergy Unknown 01/23/18 Yes diphenhydramine HCl Adverse Reaction Intermediate "Jittery on the inside" 01/23 Yes Physical Exam Physical Exam Constitutional: Well developed, well nourished, no acute distress, non-toxic appearance. [] HENT: Normocephalic, atraumatic, bilateral external ears normal, oropharynx moist, no oral exudates, nose normal. [] Eyes: PERRLA, EOMI, conjunctiva normal, no discharge. [] Neck: Normal range of motion, no tenderness, supple, no stridor. [] Cardiovascular:Heart rate regular rhythm, no murmur [] Lungs & Thorax: Bilateral breath sounds clear to auscultation [] Abdomen: Bowel sounds normal, soft, no tenderness, no masses, no pulsatile masses. [] Skin: Warm, dry, no erythema, no rash. [] Back: No tenderness, no CVA tenderness. [] Extremities: No tenderness, no cyanosis, no clubbing, ROM intact, no edema. [] Neurologic: Alert and oriented X 3, normal motor function, normal sensory function, no focal deficits noted. [] Psychologic: Affect normal, judgement normal, APPEARED VERY ANXIOUS. Current Patient Data Vital Signs Vital Signs Date Time Temp Pulse Resp B/P (MAP) Pulse Ox O2 Delivery O2 Flow Rate FiO2 04/06/18 16:12 98.6 98 22 202/113 (142) 98 Room Air 98.6 Lab Values Laboratory Tests Test 04/06/18 16:00 White Blood Count 11.3 x10^3/uL (4.0-11.0) H Red Blood Count 4.61 x10^6/uL (3.50-5.40) Hemoglobin 13.0 g/dL (12.0-15.5) Hematocrit 38.4 % (36.0-47.0) Mean Corpuscular Volume 83 fL (79-100) Mean Corpuscular Hemoglobin 28 pg (25-35) Mean Corpuscular Hemoglobin Concent 34 g/dL (31-37) Red Cell Distribution Width 19.4 % (11.5-14.5) H Platelet Count 371 x10^3/uL (140-400) Neutrophils (%) (Auto) 84 % (31-73) H Lymphocytes (%) (Auto) 10 % (24-48) L Monocytes (%) (Auto) 5 % (0-9) Eosinophils (%) (Auto) 0 % (0-3) Basophils (%) (Auto) 1 % (0-3) Neutrophils # (Auto) 9.5 x10^3uL (1.8-7.7) H Lymphocytes # (Auto) 1.2 x10^3/uL (1.0-4.8) Monocytes # (Auto) 0.6 x10^3/uL (0.0-1.1) Eosinophils # (Auto) 0.0 x10^3/uL (0.0-0.7) Basophils # (Auto) 0.1 x10^3/uL (0.0-0.2) Sodium Level 140 mmol/L (136-145) Potassium Level 4.3 mmol/L (3.5-5.1) Chloride Level 98 mmol/L (98-107) Carbon Dioxide Level 24 mmol/L (21-32) Anion Gap 18 (6-14) H Blood Urea Nitrogen 21 mg/dL (7-20) H Creatinine 2.0 mg/dL (0.6-1.0) H Estimated GFR (Cockcroft-Gault) 25.3 BUN/Creatinine Ratio 11 (6-20) Glucose Level 159 mg/dL (70-99) H Calcium Level 10.5 mg/dL (8.5-10.1) H Total Bilirubin 0.5 mg/dL (0.2-1.0) Aspartate Amino Transferase (AST) 29 U/L (15-37) Alanine Aminotransferase (ALT) 19 U/L (14-59) Alkaline Phosphatase 128 U/L (46-116) H Total Protein 8.7 g/dL (6.4-8.2) H Albumin 3.9 g/dL (3.4-5.0) Albumin/Globulin Ratio 0.8 (1.0-1.7) L Lipase 258 U/L (73-393) Laboratory Tests 04/06/18 16:00 Laboratory Tests 04/06/18 16:00 EKG EKG [] Radiology/Procedures Radiology/Procedures [] Course & Med Decision Making Course & Med Decision Making Pertinent Labs and Imaging studies reviewed. (See chart for details) Patient was being treated for UTI with keflex, culture shown that it is one of the antibiotic of resistance. Will replace it with macrobid. Dragon Disclaimer Dragon Disclaimer This electronic medical record was generated, in whole or in part, using a voice recognition dictation system. Departure Departure Impression: Primary Impression: Nausea & vomiting Disposition: 01 HOME, SELF-CARE Condition: STABLE Referrals: NO PCP (PCP) follow up with pcp in 2 days for reevaluation if not getting better. Patient Instructions: Nausea and Vomiting Additional Instructions: stop taking CEPHALEXIN NOW. Scripts Ondansetron (ZOFRAN ODT) 4 Mg Tab.rapdis 1 TAB SL Q8HRS PRN for NAUSEA, #15 TAB Prov: MOON IRELAND DO 04/06/18 Nitrofurantoin Monohyd/M-Cryst (MACROBID 100 MG CAPSULE) 100 Mg Capsule 1 CAP PO BID, #14 CAP Prov: MOON IRELAND DO 04/06/18 MOON IRELAND DO Apr 06, 2018 16:41
[2018-04-06 16:46] LABS: ALBUMIN 3.9 g/dL (3.4-5.0); ALBUMIN/GLOBULIN RATIO 0.8 (1.0-1.7); TOTAL BILIRUBIN 0.5 mg/dL (0.2-1.0); TOTAL PROTEIN 8.7 g/dL (6.4-8.2)
[2018-04-06] MEDS ORDERED: IV NORMAL SALINE 500ML BAG 500 ML IV ONE (17:15)
--- NOTE | 2018-04-06 17:34 | RAD ---
EXAM: Abdomen acute complete. HISTORY: Pain. COMPARISON: 01/21/2018 FINDINGS: A frontal view of the chest and frontal upright and supine views of the abdomen are obtained. There is no infiltrate, pleural effusion or pneumothorax. The heart is normal in size. No abnormally dilated loop of bowel is seen. There is no free air. There is lumbar scoliosis and multilevel degenerative change. There is instrumented fusion at L3-L5. IMPRESSION: 1. No acute pulmonary finding. 2. Nonobstructive bowel gas pattern. Electronically signed by: Esther Gallagher MD (04/06/2018 5:31 PM) [facility]
[2018-04-06] MEDS ORDERED: ONDA4TAB10 SL (17:49)
[2018-04-06] MEDS ORDERED: NITR100C62 PO (17:49)
[2018-04-06 17:52] LABS: BILIRUBIN,URINE NEGATIVE (NEG); CLARITY,URINE CLOUDY; COLOR,URINE YELLOW; NITRITE,URINE NEGATIVE (NEG); PH,URINE 6.5; PROTEIN,URINE >=300 mg/dL (NEG-TRACE); UROBILINOGEN,URINE 0.2 mg/dL (0.2 mg/dL)
[2018-04-06 18:02] LABS: BACTERIA,URINE MODERATE /HPF (0-FEW); WBC,URINE TNTC /HPF (0-4)
== END 2018-04-06 18:00 | disposition home or self-care (01) ==
LOC: ER 15:43
DX: R11.2 Nausea with vomiting, unspecified (principal); G89.29 Other chronic pain; R10.9 Unspecified abdominal pain; I10 Essential (primary) hypertension; F10.20 Alcohol dependence, uncomplicated; F41.9 Anxiety disorder, unspecified; Z88.1 Allergy status to other antibiotic agents; Z88.5 Allergy status to narcotic agent; Z91.041 Radiographic dye allergy status
CPT/HCPCS: 36415; 74022; 80053; 81001; 83690; 85025; 96374; 96375; 99285; J1630; J2060; J2405; J2765

== ENCOUNTER 2018-04-14 17:23 | Emergency (ER) | payer MEDICARE ==
[~2018-04-14] VITALS: Ht 162.6 cm; Wt 63.5 kg
[~2018-04-14 17:23] MED LIST changes: +NITR100C62 PO
[2018-04-14 17:45] VITALS: BP 178/99
--- NOTE | 2018-04-14 18:47 | PHYS DOC ---
Past Medical History Past Medical History: Hypertension Additional Past Medical Histor: FIBROMIALGIA,VRE,C-DIFF Past Surgical History: Knee Replacement, Other Additional Past Surgical Histo: BACK AND FEET SURGERY Alcohol Use: Heavy Drug Use: None Adult General Chief Complaint Chief Complaint: MECHANICAL FALL HPI HPI Patient is a 62 year old male who presents with R knee presents right in, accident 3 days ago. Patient states she was wrestling with her granddaughter when she fell twisting her right knee. Patient's been weightbearing and treating with ibuprofen and pain medication. Denies any other injury or pain. Patient is not currently on anticoagulation therapy.[] Review of Systems Review of Systems ROS as per HPI All other systems were reviewed and found to be within normal limits, except as documented in this note. Allergies Allergies Allergies Coded Allergies Type Severity Reaction Last Updated Verified levofloxacin Allergy Intermediate 01/23/18 Yes I S O L A T I O N *CONTACT* Allergy Unknown 04/14/18 Yes diphenhydramine HCl Adverse Reaction Intermediate "Jittery on the inside" 01/23 Yes Physical Exam Physical Exam Constitutional: Well developed, well nourished, no acute distress, non-toxic appearance. [] HENT: Normocephalic, atraumatic, bilateral external ears normal, oropharynx moist, nose normal. [] Eyes: PERRLA. [] Neck: Normal range of motion, no midline tenderness. [] Cardiovascular:Heart rate regular rhythm. [] Extremities: R knee, small jont effusion, no deformity or joint tenderness, pain on range of motion,. [] Neurologic: Alert and oriented X 3, normal motor function, normal sensory function, no focal deficits noted. [] Psychologic: Affect normal, anxious, tearful. [] Current Patient Data Vital Signs Vital Signs Date Time Temp Pulse Resp B/P (MAP) Pulse Ox O2 Delivery O2 Flow Rate FiO2 04/14/18 17:45 98.1 105 16 178/99 (125) 95 Room Air 98.1 EKG EKG [] Radiology/Procedures Radiology/Procedures [X-ray right knee] Course & Med Decision Making Course & Med Decision Making Pertinent Labs and Imaging studies reviewed. (See chart for details) [Patient eloped from the emergency department prior to imaging studies.] Dragon Disclaimer Dragon Disclaimer This electronic medical record was generated, in whole or in part, using a voice recognition dictation system. Departure Departure Impression: Primary Impression: Right knee injury Disposition: 07 AGAINST MEDICAL ADVICE Condition: GUARDED Referrals: NO PCP (PCP) GABRIELA ATKINSON DO Apr 14, 2018 18:47
== END 2018-04-14 18:44 | disposition left against medical advice (07) ==
LOC: ER 17:23
DX: S89.91XA Unspecified injury of right lower leg, initial encounter (principal); I10 Essential (primary) hypertension; Z88.1 Allergy status to other antibiotic agents; Z88.8 Allergy status to other drugs, medicaments and biological substances; X50.1XXA Overexertion from prolonged static or awkward postures, initial encounter; Y93.89 Activity, other specified; Y92.89 Other specified places as the place of occurrence of the external cause; Y99.8 Other external cause status
CPT/HCPCS: 99281

== ENCOUNTER 2018-04-16 19:50 | Emergency (ER) | payer MEDICARE ==
[~2018-04-16] VITALS: Ht 162.6 cm; Wt 63.5 kg
--- NOTE | 2018-04-16 21:33 | PHYS DOC ---
Past Medical History Past Medical History: Fibromyalgia, Hypertension, Other Additional Past Medical Histor: VRE,C-DIFF,FALLS,CHRONIC BACK/KNEE PAIN Past Surgical History: Knee Replacement, Other Additional Past Surgical Histo: BACK AND FEET SURGERY Additional Information: PATIENT REPORTS "DRINKING A BOTTLE OF WINE DAILY X 1 WEEK, TODAY HAD 2 BEERS." Alcohol Use: Heavy Drug Use: None Adult General Chief Complaint Chief Complaint: MULTIPLE COMPLAINTS HPI HPI 62-year-old female since to ER for multiple complaints. Patient reports she's had multiple episodes of vomiting and diarrhea today. Patient states she has had is denying any fever. Patient has concerns for urinary tract infection reporting she was treated earlier this month for 1 and is uncertain if infection was completely treated. Patient reports she has had irritation which increases during urination. Patient reports he has had 2 beers today denying any additional alcohol or illicit drugs. Patient reports she has had increased stress with her daughter and family moving in with her in the past year. Patient denies any physical abuse and does feel safe at home. Patient states it has caused increased anxiety-denies any SI/HI. She also has concerns for right knee pain and swelling which she was in the ER for 2 days ago but left AGAINST MEDICAL ADVICE. Review of Systems Review of Systems Constitutional: Reports chills. Denies fever Eyes: Denies change in visual acuity, redness, or eye pain [] HENT: Denies nasal congestion or sore throat [] Respiratory: Denies cough or shortness of breath [] Cardiovascular: Denies chest pain or palpitations GI: Denies abdominal pain, nausea, vomiting. Denies diarrhea or dark tarry bloody stools : Denies hematuria. Denies incontinence. Reports irritation with urination causing worsening symptoms-with some burning Musculoskeletal: Denies back pain. Reports right knee pain swelling. Denies numbness or tingling Integument: Denies rash or skin lesions [] Neurologic: Denies headache, focal weakness or sensory changes [] Endocrine: Denies polyuria or polydipsia [] Psych: Reports anxiety and depression. Reports previous suicidal ideations- denies at this time. All other systems were reviewed and found to be within normal limits, except as documented in this note. Current Medications Current Medications Current Medications Medications (Trade) Dose Ordered Sig/Taz Start Time Stop Time Status Last Admin Dose Admin Dicyclomine HCl (Bentyl) 20 mg 1X ONCE 04/16/18 22:00 04/16/18 22:01 DC 04/16/18 23:35 20 MG Ondansetron HCl (Zofran) 4 mg 1X ONCE 04/16/18 22:00 04/16/18 22:01 DC 04/16/18 23:35 4 MG Potassium Chloride (KCl Oral Soln) 40 meq 1X ONCE 04/17/18 00:15 04/17/18 00:16 DC 04/17/18 00:27 40 MEQ Potassium Chloride (Klor-Con) 40 meq 1X ONCE 04/17/18 00:00 04/17/18 00:01 DC Sodium Chloride 500 ml @ 500 mls/hr 1X ONCE 04/16/18 22:00 04/16/18 22:59 DC 04/16/18 23:34 500 MLS/HR Allergies Allergies Allergies Coded Allergies Type Severity Reaction Last Updated Verified levofloxacin Allergy Intermediate 01/23/18 Yes I S O L A T I O N *CONTACT* Allergy Unknown 04/14/18 Yes diphenhydramine HCl Adverse Reaction Intermediate "Jittery on the inside" 01/23 Yes Physical Exam Physical Exam Constitutional: Well developed, well nourished, no acute distress, non-toxic appearance. [] HENT: Normocephalic, atraumatic, oropharynx moist, no oral exudates, nose normal. [] Eyes: PERRLA, no nystagmus, conjunctiva normal, no discharge. [] Neck: Normal range of motion, no tenderness, supple Cardiovascular:Heart rate regular rhythm, no murmur [] Lungs & Thorax: Bilateral breath sounds clear to auscultation. Respirations equal and nonlabored Abdomen: Bowel sounds normal, soft/nondistended with no rigidity, she is tenderness on palpation in all abdomen with no focal area or rebound tenderness , no masses, no pulsatile masses. [] Skin: Warm, dry, no erythema, no rash. [] Back: No tenderness, no CVA tenderness. [] Extremities: Tender to palpation right anterior and posterior knee with mild swelling- no ecchymosis or erythema, no cyanosis, no clubbing, ROM intact, no bilateral pedal edema. 2+ dorsal pedis and pedal pulses bilateral Neurologic: Alert and oriented X 3, normal motor function, normal sensory function, no focal deficits noted. [] Psychologic: Affect normal, judgement normal, mood normal. [] Current Patient Data Vital Signs Vital Signs Date Time Temp Pulse Resp B/P (MAP) Pulse Ox O2 Delivery O2 Flow Rate FiO2 04/17/18 00:17 90 20 179/94 (122) 99 Room Air 04/16/18 20:55 98.8 98.8 Lab Values Laboratory Tests Test 04/16/18 21:42 04/16/18 23:20 Urine Collection Type Unknown Urine Color Yellow Urine Clarity Clear Urine pH 6.0 Urine Specific [place] 1.020 Urine Protein >=300 mg/dL (NEG-TRACE) Urine Glucose (UA) Negative mg/dL (NEG) Urine Ketones (Stick) Negative mg/dL (NEG) Urine Blood Large (NEG) Urine Nitrite Negative (NEG) Urine Bilirubin Negative (NEG) Urine Urobilinogen Dipstick 0.2 mg/dL (0.2 mg/dL) Urine Leukocyte Esterase Negative (NEG) Urine RBC Occ /HPF (0-2) Urine WBC 11-20 /HPF (0-4) Urine Squamous Epithelial Cells Mod /LPF Urine Bacteria Many /HPF (0-FEW) Urine Mucus Slight /LPF White Blood Count 11.9 x10^3/uL (4.0-11.0) H Red Blood Count 4.25 x10^6/uL (3.50-5.40) Hemoglobin 12.2 g/dL (12.0-15.5) Hematocrit 35.4 % (36.0-47.0) L Mean Corpuscular Volume 83 fL (79-100) Mean Corpuscular Hemoglobin 29 pg (25-35) Mean Corpuscular Hemoglobin Concent 34 g/dL (31-37) Red Cell Distribution Width 18.5 % (11.5-14.5) H Platelet Count 291 x10^3/uL (140-400) Neutrophils (%) (Auto) 52 % (31-73) Lymphocytes (%) (Auto) 36 % (24-48) Monocytes (%) (Auto) 9 % (0-9) Eosinophils (%) (Auto) 1 % (0-3) Basophils (%) (Auto) 2 % (0-3) Neutrophils # (Auto) 6.2 x10^3uL (1.8-7.7) Lymphocytes # (Auto) 4.3 x10^3/uL (1.0-4.8) Monocytes # (Auto) 1.1 x10^3/uL (0.0-1.1) Eosinophils # (Auto) 0.1 x10^3/uL (0.0-0.7) Basophils # (Auto) 0.2 x10^3/uL (0.0-0.2) Sodium Level 129 mmol/L (136-145) L Potassium Level 2.5 mmol/L (3.5-5.1) *L Chloride Level 88 mmol/L (98-107) L Carbon Dioxide Level 24 mmol/L (21-32) Anion Gap 17 (6-14) H Blood Urea Nitrogen 25 mg/dL (7-20) H Creatinine 2.8 mg/dL (0.6-1.0) H Estimated GFR (Cockcroft-Gault) 17.2 BUN/Creatinine Ratio 9 (6-20) Glucose Level 91 mg/dL (70-99) Calcium Level 9.7 mg/dL (8.5-10.1) Magnesium Level 2.0 mg/dL (1.8-2.4) Total Bilirubin 0.4 mg/dL (0.2-1.0) Aspartate Amino Transferase (AST) 62 U/L (15-37) H Alanine Aminotransferase (ALT) 29 U/L (14-59) Alkaline Phosphatase 103 U/L (46-116) Total Protein 8.1 g/dL (6.4-8.2) Albumin 3.6 g/dL (3.4-5.0) Albumin/Globulin Ratio 0.8 (1.0-1.7) L Lipase 379 U/L (73-393) Ethyl Alcohol Level 108 mg/dL (0-10) H Laboratory Tests 04/16/18 23:20 Laboratory Tests 04/16/18 23:20 EKG EKG [] Radiology/Procedures Radiology/Procedures PROCEDURE: KNEE RIGHT 3V History: Chronic right knee pain with infection. Swelling. Comparison: None. Findings: AP, lateral, and oblique views of the right knee. No joint effusion is identified. No acute fracture or dislocation is seen. No osteolysis is appreciated. Severe medial compartment degeneration is seen with marginal osteophyte formation and complete loss of joint space as well as irregularity of articular surface. Mild lateral and patellofemoral compartment degeneration is seen. Impression: 1. No acute osseous abnormality identified. 2. Degeneration. Electronically signed by: Hussain Walsh MD (04/16/2018 10:26 PM) [facility] DICTATED and SIGNED BY: HUSSAIN WALSH MD DATE: 04/16/182224 Course & Med Decision Making Course & Med Decision Making Pertinent Labs and Imaging studies reviewed. (See chart for details) [] Dragon Disclaimer Dragon Disclaimer This electronic medical record was generated, in whole or in part, using a voice recognition dictation system. Departure Departure Impression: Primary Impression: Nausea and vomiting in adult Additional Impressions: Abdominal pain CKD (chronic kidney disease) stage 4, GFR 15-29 ml/min Alcoholism Disposition: HOME, SELF-CARE Condition: STABLE Referrals: NO PCP (PCP) Patient Instructions: Abdominal Pain, Alcohol Problems, Hypokalemia, Nausea and Vomiting Additional Instructions: Stop drinking alcohol. As discussed follow-up with your counselor for your anxiety and depression. Continue home medications as previously prescribed- take your potassium supplements. Follow-up with your primary doctor in next 1-2 days for re-evaluation. Problem Qualifiers JOE SAMANIEGO [employer] OPERATOR Apr 16, 2018 21:33
[2018-04-16 21:58] LABS: BILIRUBIN,URINE NEGATIVE (NEG); CLARITY,URINE CLEAR; COLOR,URINE YELLOW; NITRITE,URINE NEGATIVE (NEG); PROTEIN,URINE >=300 mg/dL (NEG-TRACE); UROBILINOGEN,URINE 0.2 mg/dL (0.2 mg/dL)
[2018-04-16] MEDS ORDERED: ONDANSETRON PF 4 MG/2 ML VIAL. IV ONE (22:00)
[2018-04-16] MEDS ORDERED: DICYCLOMINE 20 MG/2 ML AMPUL. IM ONE (22:00)
[2018-04-16] MEDS ORDERED: IV NORMAL SALINE 500ML BAG 500 ML IV ONE (22:00)
[2018-04-16 22:03] LABS: BACTERIA,URINE MANY /HPF (0-FEW); RBC,URINE OCC /HPF (0-2); SQUAMOUS EPITHELIAL CELL,UR MOD /LPF
--- NOTE | 2018-04-16 22:30 | RAD ---
History: Chronic right knee pain with infection. Swelling. Comparison: None. Findings: AP, lateral, and oblique views of the right knee. No joint effusion is identified. No acute fracture or dislocation is seen. No osteolysis is appreciated. Severe medial compartment degeneration is seen with marginal osteophyte formation and complete loss of joint space as well as irregularity of articular surface. Mild lateral and patellofemoral compartment degeneration is seen. Impression: 1. No acute osseous abnormality identified. 2. Degeneration. Electronically signed by: Hussain Walsh MD (04/16/2018 10:26 PM) [facility]
[2018-04-16 23:29] LABS: BASO # 0.2 x10^3/uL (0.0-0.2); BASO % 2 % (0-3); EOS # 0.1 x10^3/uL (0.0-0.7); EOS % 1 % (0-3); HEMATOCRIT 35.4 % (36.0-47.0); HEMOGLOBIN 12.2 g/dL (12.0-15.5); LYMPH # 4.3 x10^3/uL (1.0-4.8); LYMPH % 36 % (24-48); MEAN CORPUSCULAR HEMOGLOBIN 29 pg (25-35); MEAN CORPUSCULAR HGB CONC 34 g/dL (31-37); MEAN CORPUSCULAR VOLUME 83 fL (79-100); MONO # 1.1 x10^3/uL (0.0-1.1); MONO % 9 % (0-9); NEUT # 6.2 x10^3uL (1.8-7.7); NEUT % 52 % (31-73); PLATELET COUNT 291 x10^3/uL (140-400); RED BLOOD COUNT 4.25 x10^6/uL (3.50-5.40); RED CELL DISTRIBUTION WIDTH 18.5 % (11.5-14.5); WHITE BLOOD COUNT 11.9 x10^3/uL (4.0-11.0)
[2018-04-16 23:45] LABS: ALBUMIN 3.6 g/dL (3.4-5.0); ALBUMIN/GLOBULIN RATIO 0.8 (1.0-1.7); CALCIUM 9.7 mg/dL (8.5-10.1); CREATININE 2.8 mg/dL (0.6-1.0); GFR 17.2; TOTAL BILIRUBIN 0.4 mg/dL (0.2-1.0); TOTAL PROTEIN 8.1 g/dL (6.4-8.2)
[2018-04-16 23:48] LABS: POTASSIUM 2.5 mmol/L (3.5-5.1)
[2018-04-17] MEDS: POTASSIUM CHLORIDE 20 MEQ TABLET.ER. PO ONE ×2 (00:06)
[2018-04-17] MEDS ORDERED: POTASSIUM CHLORIDE 20 MEQ/15 ML ORAL LIQUID. PO ONE (00:15)
[2018-04-17 00:17] VITALS: BP 179/94
== END 2018-04-17 00:58 | disposition home or self-care (01) ==
LOC: ER 19:50
DX: I12.9 Hypertensive chronic kidney disease with stage 1 through stage 4 chronic kidney disease, or unspecified chronic kidney disease (principal); N18.4 Chronic kidney disease, stage 4 (severe); R11.2 Nausea with vomiting, unspecified; F10.20 Alcohol dependence, uncomplicated; Z88.1 Allergy status to other antibiotic agents; Z88.5 Allergy status to narcotic agent; Z91.041 Radiographic dye allergy status
CPT/HCPCS: 36415; 73562; 80053; 81001; 83690; 83735; 85025; 87086; 96361; 96372; 96374; 99285; G0480; J0500; J2405; J7040

== ENCOUNTER 2018-04-28 14:37 | Inpatient (IN) | payer MEDICARE ==
[~2018-04-28] VITALS: Ht 160 cm; Wt 69.2 kg
[2018-04-28] MEDS ORDERED: IV NORMAL SALINE 1000ML BAG 1,000 ML IV ONE (15:15)
[2018-04-28 15:24] LABS: BASO # 0.1 x10^3/uL (0.0-0.2); BASO % 0 % (0-3); EOS % 0 % (0-3); HEMATOCRIT 30.7 % (36.0-47.0); HEMOGLOBIN 10.3 g/dL (12.0-15.5); LYMPH # 1.1 x10^3/uL (1.0-4.8); LYMPH % 7 % (24-48); MEAN CORPUSCULAR HEMOGLOBIN 29 pg (25-35); MEAN CORPUSCULAR HGB CONC 33 g/dL (31-37); MEAN CORPUSCULAR VOLUME 87 fL (79-100); MONO # 1.8 x10^3/uL (0.0-1.1); MONO % 10 % (0-9); NEUT # 13.9 x10^3uL (1.8-7.7); NEUT % 82 % (31-73); PLATELET COUNT 288 x10^3/uL (140-400); RED BLOOD COUNT 3.55 x10^6/uL (3.50-5.40); WHITE BLOOD COUNT 16.9 x10^3/uL (4.0-11.0)
[2018-04-28 15:26] LABS: BILIRUBIN,URINE NEGATIVE (NEG); CLARITY,URINE CLEAR; COLOR,URINE YELLOW; NITRITE,URINE NEGATIVE (NEG); PH,URINE 6.5; PROTEIN,URINE 100 mg/dL (NEG-TRACE); UROBILINOGEN,URINE 0.2 mg/dL (0.2 mg/dL)
[2018-04-28 15:32] LABS: BACTERIA,URINE MANY /HPF (0-FEW); SQUAMOUS EPITHELIAL CELL,UR OCC /LPF
[2018-04-28 15:33] LABS: RBC,URINE OCC /HPF (0-2)
[2018-04-28 15:38] LABS: CALCIUM 9.4 mg/dL (8.5-10.1); CREATININE 2.7 mg/dL (0.6-1.0); GFR 17.9; POTASSIUM 3.6 mmol/L (3.5-5.1)
[2018-04-28 15:43] LABS: ALBUMIN 2.8 g/dL (3.4-5.0); ALBUMIN/GLOBULIN RATIO 0.5 (1.0-1.7); TOTAL BILIRUBIN 0.7 mg/dL (0.2-1.0)
--- NOTE | 2018-04-28 16:14 | RAD ---
PQRS Compliance Statement: One or more of the following individualized dose reduction techniques were utilized for this examination: 1. Automated exposure control 2. Adjustment of the mA and/or kV according to patient size 3. Use of iterative reconstruction technique CT HEAD WITHOUT CONTRAST History: AMS, falls. Comparison: CT head without contrast, April 01, 2018. Technique: Axial images are obtained of the head from the skull base through the vertex without IV contrast. Findings: No mass-effect, midline shift, extra-axial fluid collection, hemorrhage, or obvious acute infarction is identified. Basilar cisterns are patent. The ventricles and sulci are prominent, consistent with age-related cerebral atrophy. There is periventricular white matter hypoattenuation. This is a nonspecific finding but is commonly due to chronic small vessel ischemic disease. Bone windows demonstrate no acute calvarial abnormality. The visualized paranasal sinuses are clear. Mastoid air cells are well aerated. IMPRESSION: No acute intracranial abnormality. Electronically signed by: Tone Chavez MD (04/28/2018 4:11 PM) [id number]
[2018-04-28 16:16] LABS: % BANDS 6 % (0-9); % LYMPHS 7 % (24-48); % MONOS 8 % (0-10); % SEGS 79 % (35-66); ANISOCYTOSIS SLIGHT; PLT ESTIMATE ADEQUATE (ADEQUATE)
[2018-04-28 17:00] LABS: BARBITURATES NEG (NEG); BENZODIAZEPINES NEG (NEG); CANNABINOIDS NEG (NEG); COCAINE NEG (NEG); METHADONE NEG (NEG); OPIATES NEG (NEG); PHENCYCLIDINE NEG (NEG)
[2018-04-28 17:02] LABS: AMPHETAMINE/METHAMPHETAMINE NEG (NEG)
[2018-04-28] MEDS ORDERED: fentaNYL PF VIAL 100 MCG/2 ML VIAL IV PRN (17:15)
[2018-04-28] MEDS ORDERED: ONDANSETRON PF 4 MG/2 ML VIAL. IV PRN (17:15)
[2018-04-28] MEDS ORDERED: fentaNYL PF VIAL 100 MCG/2 ML VIAL IV ONE (17:15)
[2018-04-28] MEDS: IV NORMAL SALINE 1000ML BAG 1,000 ML IV SCH (17:53)
[2018-04-28 18:32] VITALS: BP 130/34
[2018-04-28 19:00] VITALS: BP 130/90
[2018-04-28] MEDS ORDERED: oxyCODONE/APAP 7.5/325 1 TAB TABLET PO SCH (21:00)
[2018-04-28] MEDS ORDERED: NITROFURANTOIN MONOHYD PO SCH (21:00)
[2018-04-28] MEDS ORDERED: M CRYST PO SCH (21:00)
[2018-04-28] MEDS: ALPRAZolam 1 MG TABLET PO PRN (21:41)
[2018-04-28] MEDS: oxyCODONE/APAP 7.5/325 1 TAB TABLET PO PRN (21:41)
--- NOTE | 2018-04-28 22:37 | HP ---
ADMIT DATE: 04/28/2018 CHIEF COMPLAINT: Mental status change, UTI. HISTORY OF PRESENT ILLNESS: The patient is a pleasant middle-aged white female well known to our service. We admit her a couple of times a month. Once again, she presents with mental status change, UTI. Usually, she has some substance abuse issues, but at this time, her drug screen has been clear. She does have a bad UTI. She has got metabolic encephalopathy rated at 9/10. Her family states that she has been very confused that has been getting worse for the past couple of days. I discussed the case with ER physician. We are going to admit the patient and give her IV antibiotics and fluids. PAST MEDICAL HISTORY: Substance abuse, depression, anxiety, chronic UTIs, recurrent C. diff and GERD. ALLERGIES: DIPHENHYDRAMINE AND LEVAQUIN. FAMILY HISTORY: Hypertension. SOCIAL HISTORY: She lives at home with her daughter. She smokes and drinks. No drugs, but she does seem to be dependent on prescription narcotics. PHYSICAL EXAMINATION: VITAL SIGNS: Temperature is 100, pulse 100, respirations 18, blood pressure 144/90. GENERAL: She is awake, very confused, mumbling. HEART: Distant S1, S2. LUNGS: Clear. ABDOMEN: Soft, slightly tender. EXTREMITIES: Trace edema. SKIN: No rashes. ENDOCRINE: No thyromegaly. LYMPHATICS: No cervical nodes. HEMATOPOIETIC: No bruising. LABORATORY DATA: White cells 17. ASSESSMENT AND PLAN: Probable urosepsis with metabolic encephalopathy. The patient will be admitted. We will start IV antibiotics, IV fluids. Continue home medicines, frequent labs. Urine cultures. Full code. PT, OT. ZA MAHONEY DO DR: CORY/hal JOB#: [id number] / [id number]
[2018-04-28 22:51] VITALS: BP 119/68
--- NOTE | 2018-04-29 00:46 | PHYS DOC ---
Past Medical History Past Medical History: Fibromyalgia, Hypertension, Other Additional Past Medical Histor: VRE,C-DIFF,FALLS,CHRONIC BACK/KNEE PAIN Past Surgical History: Knee Replacement, Other Additional Past Surgical Histo: BACK AND FEET SURGERY Alcohol Use: Heavy Drug Use: None Adult General Chief Complaint Chief Complaint: HALLUCINATIONS AUDIBLE/VISUAL HPI HPI Patient is a 62 year old female who presents with an altered mental state. The patient was brought to the emergency department by her daughter. The daughter then promptly left. She did tell EIC desk that her mother is been having hallucinations that are auditory and visual in nature. The patient has a long history of alcohol abuse. The patient states that she quit drinking last week. She was seeing little bugs on the floor and states that she saw a teepee in her room. She denies any thoughts of suicidal ideation or homicidal ideation. She denies previous hallucinations. The patient does have a history positive for chronic kidney disease. Review of Systems Review of Systems Unable to obtain due to patient's condition Current Medications Current Medications Current Medications Medications (Trade) Dose Ordered Sig/Taz Start Time Stop Time Status Last Admin Dose Admin Sodium Chloride 1,000 ml @ 1,000 mls/hr 1X ONCE 04/28/18 15:15 04/28/18 16:14 DC 04/28/18 15:58 1,000 MLS/HR Allergies Allergies Allergies Coded Allergies Type Severity Reaction Last Updated Verified levofloxacin Allergy Intermediate 01/23/18 Yes I S O L A T I O N *CONTACT* Allergy Unknown 04/14/18 Yes diphenhydramine HCl Adverse Reaction Intermediate "Jittery on the inside" 01/23 Yes Physical Exam Physical Exam Constitutional: Well developed, well nourished, no acute distress, non-toxic appearance. [] HENT: Normocephalic, atraumatic, bilateral tympanic membranes normal, oropharynx moist, no oral exudates, nose normal. [] Eyes: PERRLA, EOMI, conjunctiva normal, no discharge. [] Neck: Normal range of motion, no tenderness, supple, no stridor. [] Cardiovascular:Heart rate regular rhythm, no murmur [] Lungs & Thorax: Bilateral breath sounds clear to auscultation [] Abdomen: Bowel sounds normal, soft, no tenderness, no masses, no pulsatile masses. [] Skin: Warm, dry, no erythema, no rash. [] Back: No tenderness, no CVA tenderness. [] Extremities: No tenderness, no cyanosis, no clubbing, ROM intact, no edema. [] Neurologic: Alert and oriented X 3, normal motor function, normal sensory function, no focal deficits noted, cranial nerves II through XII are grossly intact. [] Psychologic: Affect flat, judgement impaired, mood normal. [] Current Patient Data Vital Signs Vital Signs Date Time Temp Pulse Resp B/P (MAP) Pulse Ox O2 Delivery O2 Flow Rate FiO2 04/28/18 16:48 99 18 132/81 (98) 96 Room Air 04/28/18 15:00 98.9 98.9 Lab Values Laboratory Tests Test 04/28/18 15:11 04/28/18 15:14 White Blood Count 16.9 x10^3/uL (4.0-11.0) H Red Blood Count 3.55 x10^6/uL (3.50-5.40) Hemoglobin 10.3 g/dL (12.0-15.5) L Hematocrit 30.7 % (36.0-47.0) L Mean Corpuscular Volume 87 fL (79-100) Mean Corpuscular Hemoglobin 29 pg (25-35) Mean Corpuscular Hemoglobin Concent 33 g/dL (31-37) Red Cell Distribution Width 18.0 % (11.5-14.5) H Platelet Count 288 x10^3/uL (140-400) Neutrophils (%) (Auto) 82 % (31-73) H Lymphocytes (%) (Auto) 7 % (24-48) L Monocytes (%) (Auto) 10 % (0-9) H Eosinophils (%) (Auto) 0 % (0-3) Basophils (%) (Auto) 0 % (0-3) Neutrophils # (Auto) 13.9 x10^3uL (1.8-7.7) H Lymphocytes # (Auto) 1.1 x10^3/uL (1.0-4.8) Monocytes # (Auto) 1.8 x10^3/uL (0.0-1.1) H Eosinophils # (Auto) 0.0 x10^3/uL (0.0-0.7) Basophils # (Auto) 0.1 x10^3/uL (0.0-0.2) Segmented Neutrophils % 79 % (35-66) H Band Neutrophils % 6 % (0-9) Lymphocytes % 7 % (24-48) L Monocytes % 8 % (0-10) Platelet Estimate Adequate (ADEQUATE) Anisocytosis Slight Sodium Level 135 mmol/L (136-145) L Potassium Level 3.6 mmol/L (3.5-5.1) Chloride Level 97 mmol/L (98-107) L Carbon Dioxide Level 24 mmol/L (21-32) Anion Gap 14 (6-14) Blood Urea Nitrogen 22 mg/dL (7-20) H Creatinine 2.7 mg/dL (0.6-1.0) H Estimated GFR (Cockcroft-Gault) 17.9 BUN/Creatinine Ratio 8 (6-20) Glucose Level 91 mg/dL (70-99) Lactic Acid Level 1.2 mmol/L (0.4-2.0) Calcium Level 9.4 mg/dL (8.5-10.1) Total Bilirubin 0.7 mg/dL (0.2-1.0) Aspartate Amino Transferase (AST) 14 U/L (15-37) L Alanine Aminotransferase (ALT) 15 U/L (14-59) Alkaline Phosphatase 91 U/L (46-116) Ammonia < 10 mcmol/L (11-34) L Total Protein 8.0 g/dL (6.4-8.2) Albumin 2.8 g/dL (3.4-5.0) L Albumin/Globulin Ratio 0.5 (1.0-1.7) L Ethyl Alcohol Level < 10 mg/dL (0-10) Urine Collection Type U cath Urine Color Yellow Urine Clarity Clear Urine pH 6.5 Urine Specific [place] 1.010 Urine Protein 100 mg/dL (NEG-TRACE) Urine Glucose (UA) Negative mg/dL (NEG) Urine Ketones (Stick) Negative mg/dL (NEG) Urine Blood Small (NEG) Urine Nitrite Negative (NEG) Urine Bilirubin Negative (NEG) Urine Urobilinogen Dipstick 0.2 mg/dL (0.2 mg/dL) Urine Leukocyte Esterase Moderate (NEG) Urine RBC Occ /HPF (0-2) Urine WBC 5-10 /HPF (0-4) Urine Squamous Epithelial Cells Occ /LPF Urine Bacteria Many /HPF (0-FEW) Urine Mucus Mod /LPF Urine Opiates Screen Neg (NEG) Urine Methadone Screen Neg (NEG) Urine Barbiturates Neg (NEG) Urine Phencyclidine Screen Neg (NEG) Urine Amphetamine/Methamphetamine Neg (NEG) Urine Benzodiazepines Screen Neg (NEG) Urine Cocaine Screen Neg (NEG) Urine Cannabinoids Screen Neg (NEG) Urine Ethyl Alcohol Neg (NEG) Laboratory Tests 04/28/18 15:11 Laboratory Tests 04/28/18 15:11 Microbiology 04/28/18 Blood Culture - Preliminary, Resulted NO GROWTH AFTER 1 DAY EKG EKG [] Radiology/Procedures Radiology/Procedures [] Course & Med Decision Making Course & Med Decision Making Pertinent Labs and Imaging studies reviewed. (See chart for details) []The patient was found to have a large UTI. She states that she has been on antibiotics for the past 2 weeks to treat a UTI. Due to her condition and her altered mental status she will be admitted to the hospital. Dr. Campos has accepted her to his service. A consult for infectious disease has been placed. Staff Physician Addendum: I was working in the ER during the course of this patient's visit. I was available for consultation as needed, but I was not directly involved in the care of this patient. Dragon Disclaimer Dragon Disclaimer This electronic medical record was generated, in whole or in part, using a voice recognition dictation system. Departure Departure Impression: Primary Impression: UTI (urinary tract infection) Additional Impression: Altered mental status Disposition: 09 ADMITTED INPATIENT Admitting Physician: Leda Campos Condition: GOOD Referrals: NO PCP (PCP) Problem Qualifiers JONI SLAUGHTER APRN Apr 29, 2018 00:46 PATTI LAWSON MD Apr 29, 2018 19:29
[2018-04-29 02:41] VITALS: BP 101/57
[2018-04-29] MEDS: oxyCODONE/APAP 7.5/325 1 TAB TABLET PO PRN ×3 (04:18→20:58)
[2018-04-29] MEDS: IV NORMAL SALINE 1000ML BAG 1,000 ML IV SCH ×2 (05:48→14:21)
[2018-04-29 07:20] VITALS: BP 91/61
[2018-04-29 07:35] LABS: BASO % 0 % (0-3); EOS # 0.1 x10^3/uL (0.0-0.7); EOS % 1 % (0-3); HEMATOCRIT 28.3 % (36.0-47.0); HEMOGLOBIN 9.3 g/dL (12.0-15.5); LYMPH # 1.3 x10^3/uL (1.0-4.8); LYMPH % 10 % (24-48); MEAN CORPUSCULAR HEMOGLOBIN 29 pg (25-35); MEAN CORPUSCULAR HGB CONC 33 g/dL (31-37); MEAN CORPUSCULAR VOLUME 87 fL (79-100); MONO # 1.6 x10^3/uL (0.0-1.1); MONO % 13 % (0-9); NEUT # 9.5 x10^3uL (1.8-7.7); NEUT % 76 % (31-73); PLATELET COUNT 261 x10^3/uL (140-400); RED BLOOD COUNT 3.24 x10^6/uL (3.50-5.40); RED CELL DISTRIBUTION WIDTH 18.1 % (11.5-14.5); WHITE BLOOD COUNT 12.5 x10^3/uL (4.0-11.0)
[2018-04-29 07:49] LABS: CALCIUM 8.4 mg/dL (8.5-10.1); CREATININE 2.5 mg/dL (0.6-1.0); GFR 19.6; POTASSIUM 3.5 mmol/L (3.5-5.1)
[2018-04-29] MEDS: PANTOPRAZOLE 40 MG TABLET.DR. PO SCH (08:35)
[2018-04-29] MEDS: DULoxetine HCL 30 MG CAPSULE.DR PO SCH (08:36)
[2018-04-29] MEDS: ALPRAZolam 1 MG TABLET PO PRN (08:43)
[2018-04-29] MEDS: amLODIPine BESYLATE 10 MG TABLET PO SCH (08:45)
--- NOTE | 2018-04-29 10:51 | PDOC ---
PROGRESS NOTES History of Present Illness History of Present Illness ASSESSMENT AND PLAN: urosepsis metabolic encephalopathy. admitted. IV antibiotics, IV fluids. home medicines, frequent labs. Urine culture. Full code. PT, OT. Vitals Vitals Vital Signs Date Time Temp Pulse Resp B/P (MAP) Pulse Ox O2 Delivery O2 Flow Rate FiO2 04/29/18 08:45 68 91/61 04/29/18 07:20 99.8 18 93 Room Air 99.8 Physical Exam Physical Exam GENERAL: She is awake, very confused, eating dinner HEART: Distant S1, S2. LUNGS: Clear. ABDOMEN: Soft, slightly tender. EXTREMITIES: Trace edema. SKIN: No rashes. ENDOCRINE: No thyromegaly. LYMPHATICS: No cervical nodes. HEMATOPOIETIC: No bruising. General: Cooperative, No acute distress, mild distress Heart: Regular rate Lungs: Clear Abdomen: Normal bowel sounds, Soft Extremities: No cyanosis Labs LABS Laboratory Tests Test 04/28/18 15:11 04/28/18 15:14 04/28/18 23:40 04/29/18 06:34 White Blood Count 16.9 x10^3/uL (4.0-11.0) 12.5 x10^3/uL (4.0-11.0) Red Blood Count 3.55 x10^6/uL (3.50-5.40) 3.24 x10^6/uL (3.50-5.40) Hemoglobin 10.3 g/dL (12.0-15.5) 9.3 g/dL (12.0-15.5) Hematocrit 30.7 % (36.0-47.0) 28.3 % (36.0-47.0) Mean Corpuscular Volume 87 fL (79-100) 87 fL (79-100) Mean Corpuscular Hemoglobin 29 pg (25-35) 29 pg (25-35) Mean Corpuscular Hemoglobin Concent 33 g/dL (31-37) 33 g/dL (31-37) Red Cell Distribution Width 18.0 % (11.5-14.5) 18.1 % (11.5-14.5) Platelet Count 288 x10^3/uL (140-400) 261 x10^3/uL (140-400) Neutrophils (%) (Auto) 82 % (31-73) 76 % (31-73) Lymphocytes (%) (Auto) 7 % (24-48) 10 % (24-48) Monocytes (%) (Auto) 10 % (0-9) 13 % (0-9) Eosinophils (%) (Auto) 0 % (0-3) 1 % (0-3) Basophils (%) (Auto) 0 % (0-3) 0 % (0-3) Neutrophils # (Auto) 13.9 x10^3uL (1.8-7.7) 9.5 x10^3uL (1.8-7.7) Lymphocytes # (Auto) 1.1 x10^3/uL (1.0-4.8) 1.3 x10^3/uL (1.0-4.8) Monocytes # (Auto) 1.8 x10^3/uL (0.0-1.1) 1.6 x10^3/uL (0.0-1.1) Eosinophils # (Auto) 0.0 x10^3/uL (0.0-0.7) 0.1 x10^3/uL (0.0-0.7) Basophils # (Auto) 0.1 x10^3/uL (0.0-0.2) 0.0 x10^3/uL (0.0-0.2) Segmented Neutrophils % 79 % (35-66) Band Neutrophils % 6 % (0-9) Lymphocytes % 7 % (24-48) Monocytes % 8 % (0-10) Platelet Estimate Adequate (ADEQUATE) Anisocytosis Slight Sodium Level 135 mmol/L (136-145) 138 mmol/L (136-145) Potassium Level 3.6 mmol/L (3.5-5.1) 3.5 mmol/L (3.5-5.1) Chloride Level 97 mmol/L (98-107) 105 mmol/L (98-107) Carbon Dioxide Level 24 mmol/L (21-32) 23 mmol/L (21-32) Anion Gap 14 (6-14) 10 (6-14) Blood Urea Nitrogen 22 mg/dL (7-20) 24 mg/dL (7-20) Creatinine 2.7 mg/dL (0.6-1.0) 2.5 mg/dL (0.6-1.0) Estimated GFR (Cockcroft-Gault) 17.9 19.6 BUN/Creatinine Ratio 8 (6-20) Glucose Level 91 mg/dL (70-99) 90 mg/dL (70-99) Lactic Acid Level 1.2 mmol/L (0.4-2.0) 0.5 mmol/L (0.4-2.0) Calcium Level 9.4 mg/dL (8.5-10.1) 8.4 mg/dL (8.5-10.1) Total Bilirubin 0.7 mg/dL (0.2-1.0) Aspartate Amino Transf (AST/SGOT) 14 U/L (15-37) Alanine Aminotransferase (ALT/SGPT) 15 U/L (14-59) Alkaline Phosphatase 91 U/L (46-116) Ammonia < 10 mcmol/L (11-34) Total Protein 8.0 g/dL (6.4-8.2) Albumin 2.8 g/dL (3.4-5.0) Albumin/Globulin Ratio 0.5 (1.0-1.7) Ethyl Alcohol Level < 10 mg/dL (0-10) Urine Collection Type U cath Urine Color Yellow Urine Clarity Clear Urine pH 6.5 Urine Specific Clint 1.010 Urine Protein 100 mg/dL (NEG-TRACE) Urine Glucose (UA) Negative mg/dL (NEG) Urine Ketones (Stick) Negative mg/dL (NEG) Urine Blood Small (NEG) Urine Nitrite Negative (NEG) Urine Bilirubin Negative (NEG) Urine Urobilinogen Dipstick 0.2 mg/dL (0.2 mg/dL) Urine Leukocyte Esterase Moderate (NEG) Urine RBC Occ /HPF (0-2) Urine WBC 5-10 /HPF (0-4) Urine Squamous Epithelial Cells Occ /LPF Urine Bacteria Many /HPF (0-FEW) Urine Mucus Mod /LPF Urine Opiates Screen Neg (NEG) Urine Methadone Screen Neg (NEG) Urine Barbiturates Neg (NEG) Urine Phencyclidine Screen Neg (NEG) Urine Amphetamine/Methamphetamine Neg (NEG) Urine Benzodiazepines Screen Neg (NEG) Urine Cocaine Screen Neg (NEG) Urine Cannabinoids Screen Neg (NEG) Urine Ethyl Alcohol Neg (NEG) Comment Review of Relevant I have reviewed the following items blade (where applicable) has been applied. Labs Laboratory Tests Test 04/28/18 15:11 04/28/18 15:14 04/28/18 23:40 04/29/18 06:34 White Blood Count 16.9 x10^3/uL (4.0-11.0) 12.5 x10^3/uL (4.0-11.0) Red Blood Count 3.55 x10^6/uL (3.50-5.40) 3.24 x10^6/uL (3.50-5.40) Hemoglobin 10.3 g/dL (12.0-15.5) 9.3 g/dL (12.0-15.5) Hematocrit 30.7 % (36.0-47.0) 28.3 % (36.0-47.0) Mean Corpuscular Volume 87 fL (79-100) 87 fL (79-100) Mean Corpuscular Hemoglobin 29 pg (25-35) 29 pg (25-35) Mean Corpuscular Hemoglobin Concent 33 g/dL (31-37) 33 g/dL (31-37) Red Cell Distribution Width 18.0 % (11.5-14.5) 18.1 % (11.5-14.5) Platelet Count 288 x10^3/uL (140-400) 261 x10^3/uL (140-400) Neutrophils (%) (Auto) 82 % (31-73) 76 % (31-73) Lymphocytes (%) (Auto) 7 % (24-48) 10 % (24-48) Monocytes (%) (Auto) 10 % (0-9) 13 % (0-9) Eosinophils (%) (Auto) 0 % (0-3) 1 % (0-3) Basophils (%) (Auto) 0 % (0-3) 0 % (0-3) Neutrophils # (Auto) 13.9 x10^3uL (1.8-7.7) 9.5 x10^3uL (1.8-7.7) Lymphocytes # (Auto) 1.1 x10^3/uL (1.0-4.8) 1.3 x10^3/uL (1.0-4.8) Monocytes # (Auto) 1.8 x10^3/uL (0.0-1.1) 1.6 x10^3/uL (0.0-1.1) Eosinophils # (Auto) 0.0 x10^3/uL (0.0-0.7) 0.1 x10^3/uL (0.0-0.7) Basophils # (Auto) 0.1 x10^3/uL (0.0-0.2) 0.0 x10^3/uL (0.0-0.2) Segmented Neutrophils % 79 % (35-66) Band Neutrophils % 6 % (0-9) Lymphocytes % 7 % (24-48) Monocytes % 8 % (0-10) Platelet Estimate Adequate (ADEQUATE) Anisocytosis Slight Sodium Level 135 mmol/L (136-145) 138 mmol/L (136-145) Potassium Level 3.6 mmol/L (3.5-5.1) 3.5 mmol/L (3.5-5.1) Chloride Level 97 mmol/L (98-107) 105 mmol/L (98-107) Carbon Dioxide Level 24 mmol/L (21-32) 23 mmol/L (21-32) Anion Gap 14 (6-14) 10 (6-14) Blood Urea Nitrogen 22 mg/dL (7-20) 24 mg/dL (7-20) Creatinine 2.7 mg/dL (0.6-1.0) 2.5 mg/dL (0.6-1.0) Estimated GFR (Cockcroft-Gault) 17.9 19.6 BUN/Creatinine Ratio 8 (6-20) Glucose Level 91 mg/dL (70-99) 90 mg/dL (70-99) Lactic Acid Level 1.2 mmol/L (0.4-2.0) 0.5 mmol/L (0.4-2.0) Calcium Level 9.4 mg/dL (8.5-10.1) 8.4 mg/dL (8.5-10.1) Total Bilirubin 0.7 mg/dL (0.2-1.0) Aspartate Amino Transf (AST/SGOT) 14 U/L (15-37) Alanine Aminotransferase (ALT/SGPT) 15 U/L (14-59) Alkaline Phosphatase 91 U/L (46-116) Ammonia < 10 mcmol/L (11-34) Total Protein 8.0 g/dL (6.4-8.2) Albumin 2.8 g/dL (3.4-5.0) Albumin/Globulin Ratio 0.5 (1.0-1.7) Ethyl Alcohol Level < 10 mg/dL (0-10) Urine Collection Type U cath Urine Color Yellow Urine Clarity Clear Urine pH 6.5 Urine Specific Clint 1.010 Urine Protein 100 mg/dL (NEG-TRACE) Urine Glucose (UA) Negative mg/dL (NEG) Urine Ketones (Stick) Negative mg/dL (NEG) Urine Blood Small (NEG) Urine Nitrite Negative (NEG) Urine Bilirubin Negative (NEG) Urine Urobilinogen Dipstick 0.2 mg/dL (0.2 mg/dL) Urine Leukocyte Esterase Moderate (NEG) Urine RBC Occ /HPF (0-2) Urine WBC 5-10 /HPF (0-4) Urine Squamous Epithelial Cells Occ /LPF Urine Bacteria Many /HPF (0-FEW) Urine Mucus Mod /LPF Urine Opiates Screen Neg (NEG) Urine Methadone Screen Neg (NEG) Urine Barbiturates Neg (NEG) Urine Phencyclidine Screen Neg (NEG) Urine Amphetamine/Methamphetamine Neg (NEG) Urine Benzodiazepines Screen Neg (NEG) Urine Cocaine Screen Neg (NEG) Urine Cannabinoids Screen Neg (NEG) Urine Ethyl Alcohol Neg (NEG) Laboratory Tests Test 04/28/18 15:11 04/28/18 15:14 04/28/18 23:40 04/29/18 06:34 White Blood Count 16.9 x10^3/uL (4.0-11.0) 12.5 x10^3/uL (4.0-11.0) Red Blood Count 3.55 x10^6/uL (3.50-5.40) 3.24 x10^6/uL (3.50-5.40) Hemoglobin 10.3 g/dL (12.0-15.5) 9.3 g/dL (12.0-15.5) Hematocrit 30.7 % (36.0-47.0) 28.3 % (36.0-47.0) Mean Corpuscular Volume 87 fL (79-100) 87 fL (79-100) Mean Corpuscular Hemoglobin 29 pg (25-35) 29 pg (25-35) Mean Corpuscular Hemoglobin Concent 33 g/dL (31-37) 33 g/dL (31-37) Red Cell Distribution Width 18.0 % (11.5-14.5) 18.1 % (11.5-14.5) Platelet Count 288 x10^3/uL (140-400) 261 x10^3/uL (140-400) Neutrophils (%) (Auto) 82 % (31-73) 76 % (31-73) Lymphocytes (%) (Auto) 7 % (24-48) 10 % (24-48) Monocytes (%) (Auto) 10 % (0-9) 13 % (0-9) Eosinophils (%) (Auto) 0 % (0-3) 1 % (0-3) Basophils (%) (Auto) 0 % (0-3) 0 % (0-3) Neutrophils # (Auto) 13.9 x10^3uL (1.8-7.7) 9.5 x10^3uL (1.8-7.7) Lymphocytes # (Auto) 1.1 x10^3/uL (1.0-4.8) 1.3 x10^3/uL (1.0-4.8) Monocytes # (Auto) 1.8 x10^3/uL (0.0-1.1) 1.6 x10^3/uL (0.0-1.1) Eosinophils # (Auto) 0.0 x10^3/uL (0.0-0.7) 0.1 x10^3/uL (0.0-0.7) Basophils # (Auto) 0.1 x10^3/uL (0.0-0.2) 0.0 x10^3/uL (0.0-0.2) Segmented Neutrophils % 79 % (35-66) Band Neutrophils % 6 % (0-9) Lymphocytes % 7 % (24-48) Monocytes % 8 % (0-10) Platelet Estimate Adequate (ADEQUATE) Anisocytosis Slight Sodium Level 135 mmol/L (136-145) 138 mmol/L (136-145) Potassium Level 3.6 mmol/L (3.5-5.1) 3.5 mmol/L (3.5-5.1) Chloride Level 97 mmol/L (98-107) 105 mmol/L (98-107) Carbon Dioxide Level 24 mmol/L (21-32) 23 mmol/L (21-32) Anion Gap 14 (6-14) 10 (6-14) Blood Urea Nitrogen 22 mg/dL (7-20) 24 mg/dL (7-20) Creatinine 2.7 mg/dL (0.6-1.0) 2.5 mg/dL (0.6-1.0) Estimated GFR (Cockcroft-Gault) 17.9 19.6 BUN/Creatinine Ratio 8 (6-20) Glucose Level 91 mg/dL (70-99) 90 mg/dL (70-99) Lactic Acid Level 1.2 mmol/L (0.4-2.0) 0.5 mmol/L (0.4-2.0) Calcium Level 9.4 mg/dL (8.5-10.1) 8.4 mg/dL (8.5-10.1) Total Bilirubin 0.7 mg/dL (0.2-1.0) Aspartate Amino Transf (AST/SGOT) 14 U/L (15-37) Alanine Aminotransferase (ALT/SGPT) 15 U/L (14-59) Alkaline Phosphatase 91 U/L (46-116) Ammonia < 10 mcmol/L (11-34) Total Protein 8.0 g/dL (6.4-8.2) Albumin 2.8 g/dL (3.4-5.0) Albumin/Globulin Ratio 0.5 (1.0-1.7) Ethyl Alcohol Level < 10 mg/dL (0-10) Urine Collection Type U cath Urine Color Yellow Urine Clarity Clear Urine pH 6.5 Urine Specific Clint 1.010 Urine Protein 100 mg/dL (NEG-TRACE) Urine Glucose (UA) Negative mg/dL (NEG) Urine Ketones (Stick) Negative mg/dL (NEG) Urine Blood Small (NEG) Urine Nitrite Negative (NEG) Urine Bilirubin Negative (NEG) Urine Urobilinogen Dipstick 0.2 mg/dL (0.2 mg/dL) Urine Leukocyte Esterase Moderate (NEG) Urine RBC Occ /HPF (0-2) Urine WBC 5-10 /HPF (0-4) Urine Squamous Epithelial Cells Occ /LPF Urine Bacteria Many /HPF (0-FEW) Urine Mucus Mod /LPF Urine Opiates Screen Neg (NEG) Urine Methadone Screen Neg (NEG) Urine Barbiturates Neg (NEG) Urine Phencyclidine Screen Neg (NEG) Urine Amphetamine/Methamphetamine Neg (NEG) Urine Benzodiazepines Screen Neg (NEG) Urine Cocaine Screen Neg (NEG) Urine Cannabinoids Screen Neg (NEG) Urine Ethyl Alcohol Neg (NEG) Medications Current Medications Sodium Chloride 1,000 ml @ 1,000 mls/hr 1X ONCE IV Last administered on 04/28at 15:58; Start 04/28/18 at 15:15; Stop 04/28/18 at 16:14; Status DC Ondansetron HCl (Zofran) 4 mg PRN Q8HRS PRN IV NAUSEA/VOMITING Last administered on 04/28/18at 17:52; Start 04/28/18 at 17:15; Stop 04/29/18 at 17 :14 Fentanyl Citrate (Fentanyl 2ml Vial) 50 mcg PRN Q2HR PRN IV PAIN; Start at 17:15; Stop 04/29/18 at 17:14 Sodium Chloride 1,000 ml @ 125 mls/hr Q8H IV Last administered on 04/29/18at 05:48; Start 04/28/18 at 17:15; Stop 04/29/18 at 17:14 Fentanyl Citrate (Fentanyl 2ml Vial) 50 mcg 1X ONCE IV Last administered on at 17:53; Start 04/28/18 at 17:15; Stop 04/28/18 at 17:20; Status DC Ceftriaxone Sodium 1 gm/ Dextrose 50 ml @ 100 mls/hr Q24H IV ; Start 04/29/18 at 17:00; Status UNV Ceftriaxone Sodium 50 ml @ 100 mls/hr 1X ONCE IV Last administered on at 17:53; Start 04/28/18 at 17:30; Stop 04/28/18 at 17:59; Status DC Ceftriaxone Sodium (Rocephin) 1 gm Q24H IVP ; Start 04/29/18 at 18:00 Alprazolam (Xanax) 1 mg PRN TID PRN PO ANXIETY / AGITATION Last administered on 04/29/18at 08:43; Start 04/28/18 at 20:45 Amlodipine Besylate (Norvasc) 10 mg DAILY PO ; Start 04/29/18 at 09:00 Duloxetine HCl (Cymbalta) 90 mg DAILY PO Last administered on 04/29/18at 08:36 ; Start 04/29/18 at 09:00 Oxycodone/ Acetaminophen (Percocet 7.5/ 325) 1 tab QID PO ; Start 04/28/18 at 21:00; Stop 04/28/18 at 21:00; Status DC Pantoprazole Sodium (Protonix) 40 mg DAILYAC PO Last administered on at 08:35; Start 04/29/18 at 07:30 Non-Formulary Medication (Nitrofurantoin Monohyd/M-Cryst (Macrobid 100 Mg Capsule)) 1 cap BID PO ; Start 04/28/18 at 21:00; Status UNV Oxycodone/ Acetaminophen (Percocet 7.5/ 325) 1 tab PRN QID PRN PO PAIN Last administered on 04/29/18at 04:18; Start 04/28/18 at 21:00 Active Scripts Active Zofran Odt (Ondansetron) 4 Mg Tab.rapdis 1 Tab SL Q8HRS PRN Macrobid 100 Mg Capsule (Nitrofurantoin Monohyd/M-Cryst) 100 Mg Capsule 1 Cap PO BID Zofran Odt (Ondansetron) 4 Mg Tab.rapdis 1 Tab SL Q8HRS Percocet 7.5-325 Mg Tablet (Oxycodone/Acetaminophen) 1 Each Tablet 1 Tab PO QID Cymbalta (Duloxetine Hcl) 30 Mg Capsule.dr 90 Mg PO DAILY 30 Days Oxycodone Hcl 10 Mg Tablet 1 Tab PO PRN Q6HRS PRN 30 Days Alprazolam 0.5 Mg Tablet 1 Tab PO TID 30 Days Reported Amlodipine Besylate 10 Mg Tablet 10 Mg PO DAILY Alprazolam 1 Mg Tablet 1 Mg PO PRN TID PRN Nexium Capsule (Esomeprazole Magnesium) 40 Mg Capsule.dr 1 Cap PO DAILY Vitals/I & O Vital Sign - Last 24 Hours 04/28/18 04/28/18 04/28/18 04/28/18 15:00 15:48 16:48 17:49 Temp 98.9 98.9 Pulse 100 96 99 83 Resp 20 18 18 18 B/P (MAP) 119/67 (84) 119/71 (87) 132/81 (98) 139/80 (99) Pulse Ox 98 95 96 98 O2 Delivery Room Air Room Air Room Air Room Air 04/28/18 04/28/18 04/28/18 04/28/18 18:32 19:00 20:00 21:41 Temp 98.9 99.5 98.9 99.5 Pulse 104 108 Resp 16 19 20 B/P (MAP) 130/34 (66) 130/90 (103) Pulse Ox 97 94 O2 Delivery Room Air Room Air Room Air Room Air 04/28/18 04/29/18 04/29/18 04/29/18 22:51 02:41 04:18 05:18 Temp 102.8 100.9 102.8 100.9 Pulse 104 68 Resp 19 18 20 18 B/P (MAP) 119/68 (85) 101/57 (72) Pulse Ox 92 91 O2 Delivery Room Air Room Air Room Air Room Air 04/29/18 04/29/18 07:20 08:45 Temp 99.8 99.8 Pulse 68 68 Resp 18 B/P (MAP) 91/61 (71) 91/61 Pulse Ox 93 O2 Delivery Room Air Intake and Output 04/28/18 04/28/18 04/29/18 15:00 23:00 07:00 Intake Total 1400 ml Output Total 1 ml 2 ml Balance -1 ml 1398 ml WEI COLLINS MD Apr 29, 2018 10:51
[2018-04-29 11:20] VITALS: BP 90/57
--- NOTE | 2018-04-29 14:09 | PDOC2 ---
CONSULT Date of Consult Date of Consult DATE: 04/29/18 TIME: 14:01 Reason for Consult Reason for Consult: UTI Source Source: Chart review, Patient History of Present Illness Reason for Visit: Pt is 62 yo CF, multiple Hospitalizations -at least couple of times a month. Admitted with mental status change, UTI. Usually, she has some substance abuse issues, but at this time, her drug screen has been clear. Her family states that she has been very confused that has been getting worse for the past couple of days. Past Medical History Cardiovascular: HTN, Hyperlipidemia Pulmonary: No pertinent hx GI: GERD, Other Heme/Onc: Anemia NOS Hepatobiliary: Other Psych: Anxiety, Depression Rheumatologic: Fibromyalgia Infectious disease: No pertinent hx, Other Renal/: Chronic renal insuff, Other Past Surgical History Past Surgical History: Total knee replacement, Tubal Ligation, Other Family History Family History: Heart Disease, Hypertension Social History ALCOHOL: other Drugs: Marijuana Lives: Alone Current Medications Current Medications Current Medications Sodium Chloride 1,000 ml @ 1,000 mls/hr 1X ONCE IV Last administered on 04/28at 15:58; Start 04/28/18 at 15:15; Stop 04/28/18 at 16:14; Status DC Ondansetron HCl (Zofran) 4 mg PRN Q8HRS PRN IV NAUSEA/VOMITING Last administered on 04/28/18at 17:52; Start 04/28/18 at 17:15; Stop 04/29/18 at 17 :14 Fentanyl Citrate (Fentanyl 2ml Vial) 50 mcg PRN Q2HR PRN IV PAIN; Start at 17:15; Stop 04/29/18 at 17:14 Sodium Chloride 1,000 ml @ 125 mls/hr Q8H IV Last administered on 04/29/18at 05:48; Start 04/28/18 at 17:15; Stop 04/29/18 at 17:14 Fentanyl Citrate (Fentanyl 2ml Vial) 50 mcg 1X ONCE IV Last administered on at 17:53; Start 04/28/18 at 17:15; Stop 04/28/18 at 17:20; Status DC Ceftriaxone Sodium 1 gm/ Dextrose 50 ml @ 100 mls/hr Q24H IV ; Start 04/29/18 at 17:00; Status UNV Ceftriaxone Sodium 50 ml @ 100 mls/hr 1X ONCE IV Last administered on at 17:53; Start 04/28/18 at 17:30; Stop 04/28/18 at 17:59; Status DC Ceftriaxone Sodium (Rocephin) 1 gm Q24H IVP ; Start 04/29/18 at 18:00 Alprazolam (Xanax) 1 mg PRN TID PRN PO ANXIETY / AGITATION Last administered on 04/29/18at 08:43; Start 04/28/18 at 20:45 Amlodipine Besylate (Norvasc) 10 mg DAILY PO ; Start 04/29/18 at 09:00 Duloxetine HCl (Cymbalta) 90 mg DAILY PO Last administered on 04/29/18at 08:36 ; Start 04/29/18 at 09:00 Oxycodone/ Acetaminophen (Percocet 7.5/ 325) 1 tab QID PO ; Start 04/28/18 at 21:00; Stop 04/28/18 at 21:00; Status DC Pantoprazole Sodium (Protonix) 40 mg DAILYAC PO Last administered on at 08:35; Start 04/29/18 at 07:30 Non-Formulary Medication (Nitrofurantoin Monohyd/M-Cryst (Macrobid 100 Mg Capsule)) 1 cap BID PO ; Start 04/28/18 at 21:00; Status UNV Oxycodone/ Acetaminophen (Percocet 7.5/ 325) 1 tab PRN QID PRN PO PAIN Last administered on 04/29/18at 04:18; Start 04/28/18 at 21:00 Active Scripts Active Zofran Odt (Ondansetron) 4 Mg Tab.rapdis 1 Tab SL Q8HRS PRN Macrobid 100 Mg Capsule (Nitrofurantoin Monohyd/M-Cryst) 100 Mg Capsule 1 Cap PO BID Zofran Odt (Ondansetron) 4 Mg Tab.rapdis 1 Tab SL Q8HRS Percocet 7.5-325 Mg Tablet (Oxycodone/Acetaminophen) 1 Each Tablet 1 Tab PO QID Cymbalta (Duloxetine Hcl) 30 Mg Capsule.dr 90 Mg PO DAILY 30 Days Oxycodone Hcl 10 Mg Tablet 1 Tab PO PRN Q6HRS PRN 30 Days Alprazolam 0.5 Mg Tablet 1 Tab PO TID 30 Days Reported Amlodipine Besylate 10 Mg Tablet 10 Mg PO DAILY Alprazolam 1 Mg Tablet 1 Mg PO PRN TID PRN Nexium Capsule (Esomeprazole Magnesium) 40 Mg Capsule. 1 Cap PO DAILY Allergies Allergies: Coded Allergies: levofloxacin (Verified Allergy, Intermediate, 01/23/18) TOLERATES CIPRO I S O L A T I O N *CONTACT* (Verified Allergy, Unknown, 04/14/18) mrsa, chronic C.diff diphenhydramine HCl (Verified Adverse Reaction, Intermediate, "Jittery on the inside", 01/23/18) ROS Review of System As per HPI Physical Exam Physical Exam General: NAD HEENT: OM moist neck Supple Lungs: Clear to auscultation Bilat, Non labored Heart - RRR, ANJELICA+ no gallops Abdomen: Normal bowel sounds, Soft Extremities: No edema Skin: No rashes Neuro: Grossly Normal Skin No rash - No Drummond , No CVA or SP tenderness Vital Signs Vital Signs Date Time Temp Pulse Resp B/P (MAP) Pulse Ox O2 Delivery O2 Flow Rate FiO2 04/29/18 11:20 97.5 86 16 90/57 (68) 90 Room Air 97.5 Assessment & Plan CKD stage 4 - Hx of LUGO(neurogenic bladder) possible reflux nephropathy Multiple Hospitalizations with GILES Self caths at home x4 , SP catheter was removed by Urology due to UTI's in past Current FLuid and electrolyte status does not necessitate emergent need for Dialysis Bladder scan if decreased UOP , strict I/O Anemia - Hgb stable HTN- BP Low , Hold BP meds ? UTI- as per primary DW RN Labs Labs Laboratory Tests Test 04/28/18 15:11 04/28/18 15:14 04/28/18 23:40 04/29/18 06:34 White Blood Count 16.9 x10^3/uL (4.0-11.0) 12.5 x10^3/uL (4.0-11.0) Red Blood Count 3.55 x10^6/uL (3.50-5.40) 3.24 x10^6/uL (3.50-5.40) Hemoglobin 10.3 g/dL (12.0-15.5) 9.3 g/dL (12.0-15.5) Hematocrit 30.7 % (36.0-47.0) 28.3 % (36.0-47.0) Mean Corpuscular Volume 87 fL (79-100) 87 fL (79-100) Mean Corpuscular Hemoglobin 29 pg (25-35) 29 pg (25-35) Mean Corpuscular Hemoglobin Concent 33 g/dL (31-37) 33 g/dL (31-37) Red Cell Distribution Width 18.0 % (11.5-14.5) 18.1 % (11.5-14.5) Platelet Count 288 x10^3/uL (140-400) 261 x10^3/uL (140-400) Neutrophils (%) (Auto) 82 % (31-73) 76 % (31-73) Lymphocytes (%) (Auto) 7 % (24-48) 10 % (24-48) Monocytes (%) (Auto) 10 % (0-9) 13 % (0-9) Eosinophils (%) (Auto) 0 % (0-3) 1 % (0-3) Basophils (%) (Auto) 0 % (0-3) 0 % (0-3) Neutrophils # (Auto) 13.9 x10^3uL (1.8-7.7) 9.5 x10^3uL (1.8-7.7) Lymphocytes # (Auto) 1.1 x10^3/uL (1.0-4.8) 1.3 x10^3/uL (1.0-4.8) Monocytes # (Auto) 1.8 x10^3/uL (0.0-1.1) 1.6 x10^3/uL (0.0-1.1) Eosinophils # (Auto) 0.0 x10^3/uL (0.0-0.7) 0.1 x10^3/uL (0.0-0.7) Basophils # (Auto) 0.1 x10^3/uL (0.0-0.2) 0.0 x10^3/uL (0.0-0.2) Segmented Neutrophils % 79 % (35-66) Band Neutrophils % 6 % (0-9) Lymphocytes % 7 % (24-48) Monocytes % 8 % (0-10) Platelet Estimate Adequate (ADEQUATE) Anisocytosis Slight Sodium Level 135 mmol/L (136-145) 138 mmol/L (136-145) Potassium Level 3.6 mmol/L (3.5-5.1) 3.5 mmol/L (3.5-5.1) Chloride Level 97 mmol/L (98-107) 105 mmol/L (98-107) Carbon Dioxide Level 24 mmol/L (21-32) 23 mmol/L (21-32) Anion Gap 14 (6-14) 10 (6-14) Blood Urea Nitrogen 22 mg/dL (7-20) 24 mg/dL (7-20) Creatinine 2.7 mg/dL (0.6-1.0) 2.5 mg/dL (0.6-1.0) Estimated GFR (Cockcroft-Gault) 17.9 19.6 BUN/Creatinine Ratio 8 (6-20) Glucose Level 91 mg/dL (70-99) 90 mg/dL (70-99) Lactic Acid Level 1.2 mmol/L (0.4-2.0) 0.5 mmol/L (0.4-2.0) Calcium Level 9.4 mg/dL (8.5-10.1) 8.4 mg/dL (8.5-10.1) Total Bilirubin 0.7 mg/dL (0.2-1.0) Aspartate Amino Transf (AST/SGOT) 14 U/L (15-37) Alanine Aminotransferase (ALT/SGPT) 15 U/L (14-59) Alkaline Phosphatase 91 U/L (46-116) Ammonia < 10 mcmol/L (11-34) Total Protein 8.0 g/dL (6.4-8.2) Albumin 2.8 g/dL (3.4-5.0) Albumin/Globulin Ratio 0.5 (1.0-1.7) Ethyl Alcohol Level < 10 mg/dL (0-10) Urine Collection Type U cath Urine Color Yellow Urine Clarity Clear Urine pH 6.5 Urine Specific [place] 1.010 Urine Protein 100 mg/dL (NEG-TRACE) Urine Glucose (UA) Negative mg/dL (NEG) Urine Ketones (Stick) Negative mg/dL (NEG) Urine Blood Small (NEG) Urine Nitrite Negative (NEG) Urine Bilirubin Negative (NEG) Urine Urobilinogen Dipstick 0.2 mg/dL (0.2 mg/dL) Urine Leukocyte Esterase Moderate (NEG) Urine RBC Occ /HPF (0-2) Urine WBC 5-10 /HPF (0-4) Urine Squamous Epithelial Cells Occ /LPF Urine Bacteria Many /HPF (0-FEW) Urine Mucus Mod /LPF Urine Opiates Screen Neg (NEG) Urine Methadone Screen Neg (NEG) Urine Barbiturates Neg (NEG) Urine Phencyclidine Screen Neg (NEG) Urine Amphetamine/Methamphetamine Neg (NEG) Urine Benzodiazepines Screen Neg (NEG) Urine Cocaine Screen Neg (NEG) Urine Cannabinoids Screen Neg (NEG) Urine Ethyl Alcohol Neg (NEG) Laboratory Tests Test 04/28/18 15:11 04/28/18 15:14 04/28/18 23:40 04/29/18 06:34 White Blood Count 16.9 x10^3/uL (4.0-11.0) 12.5 x10^3/uL (4.0-11.0) Red Blood Count 3.55 x10^6/uL (3.50-5.40) 3.24 x10^6/uL (3.50-5.40) Hemoglobin 10.3 g/dL (12.0-15.5) 9.3 g/dL (12.0-15.5) Hematocrit 30.7 % (36.0-47.0) 28.3 % (36.0-47.0) Mean Corpuscular Volume 87 fL (79-100) 87 fL (79-100) Mean Corpuscular Hemoglobin 29 pg (25-35) 29 pg (25-35) Mean Corpuscular Hemoglobin Concent 33 g/dL (31-37) 33 g/dL (31-37) Red Cell Distribution Width 18.0 % (11.5-14.5) 18.1 % (11.5-14.5) Platelet Count 288 x10^3/uL (140-400) 261 x10^3/uL (140-400) Neutrophils (%) (Auto) 82 % (31-73) 76 % (31-73) Lymphocytes (%) (Auto) 7 % (24-48) 10 % (24-48) Monocytes (%) (Auto) 10 % (0-9) 13 % (0-9) Eosinophils (%) (Auto) 0 % (0-3) 1 % (0-3) Basophils (%) (Auto) 0 % (0-3) 0 % (0-3) Neutrophils # (Auto) 13.9 x10^3uL (1.8-7.7) 9.5 x10^3uL (1.8-7.7) Lymphocytes # (Auto) 1.1 x10^3/uL (1.0-4.8) 1.3 x10^3/uL (1.0-4.8) Monocytes # (Auto) 1.8 x10^3/uL (0.0-1.1) 1.6 x10^3/uL (0.0-1.1) Eosinophils # (Auto) 0.0 x10^3/uL (0.0-0.7) 0.1 x10^3/uL (0.0-0.7) Basophils # (Auto) 0.1 x10^3/uL (0.0-0.2) 0.0 x10^3/uL (0.0-0.2) Segmented Neutrophils % 79 % (35-66) Band Neutrophils % 6 % (0-9) Lymphocytes % 7 % (24-48) Monocytes % 8 % (0-10) Platelet Estimate Adequate (ADEQUATE) Anisocytosis Slight Sodium Level 135 mmol/L (136-145) 138 mmol/L (136-145) Potassium Level 3.6 mmol/L (3.5-5.1) 3.5 mmol/L (3.5-5.1) Chloride Level 97 mmol/L (98-107) 105 mmol/L (98-107) Carbon Dioxide Level 24 mmol/L (21-32) 23 mmol/L (21-32) Anion Gap 14 (6-14) 10 (6-14) Blood Urea Nitrogen 22 mg/dL (7-20) 24 mg/dL (7-20) Creatinine 2.7 mg/dL (0.6-1.0) 2.5 mg/dL (0.6-1.0) Estimated GFR (Cockcroft-Gault) 17.9 19.6 BUN/Creatinine Ratio 8 (6-20) Glucose Level 91 mg/dL (70-99) 90 mg/dL (70-99) Lactic Acid Level 1.2 mmol/L (0.4-2.0) 0.5 mmol/L (0.4-2.0) Calcium Level 9.4 mg/dL (8.5-10.1) 8.4 mg/dL (8.5-10.1) Total Bilirubin 0.7 mg/dL (0.2-1.0) Aspartate Amino Transf (AST/SGOT) 14 U/L (15-37) Alanine Aminotransferase (ALT/SGPT) 15 U/L (14-59) Alkaline Phosphatase 91 U/L (46-116) Ammonia < 10 mcmol/L (11-34) Total Protein 8.0 g/dL (6.4-8.2) Albumin 2.8 g/dL (3.4-5.0) Albumin/Globulin Ratio 0.5 (1.0-1.7) Ethyl Alcohol Level < 10 mg/dL (0-10) Urine Collection Type U cath Urine Color Yellow Urine Clarity Clear Urine pH 6.5 Urine Specific [place] 1.010 Urine Protein 100 mg/dL (NEG-TRACE) Urine Glucose (UA) Negative mg/dL (NEG) Urine Ketones (Stick) Negative mg/dL (NEG) Urine Blood Small (NEG) Urine Nitrite Negative (NEG) Urine Bilirubin Negative (NEG) Urine Urobilinogen Dipstick 0.2 mg/dL (0.2 mg/dL) Urine Leukocyte Esterase Moderate (NEG) Urine RBC Occ /HPF (0-2) Urine WBC 5-10 /HPF (0-4) Urine Squamous Epithelial Cells Occ /LPF Urine Bacteria Many /HPF (0-FEW) Urine Mucus Mod /LPF Urine Opiates Screen Neg (NEG) Urine Methadone Screen Neg (NEG) Urine Barbiturates Neg (NEG) Urine Phencyclidine Screen Neg (NEG) Urine Amphetamine/Methamphetamine Neg (NEG) Urine Benzodiazepines Screen Neg (NEG) Urine Cocaine Screen Neg (NEG) Urine Cannabinoids Screen Neg (NEG) Urine Ethyl Alcohol Neg (NEG) Review All relevant outside records, renal labs, imaging studies, telemetry/EKG's were reviewed. ALDAIR KRAFT MD Apr 29, 2018 14:09
[2018-04-29 15:00] VITALS: BP 102/70
[2018-04-29 19:00] VITALS: BP 95/55
[2018-04-29] MEDS: cefTRIAXone IV Push 1 GM VIAL. IVP SCH (19:56)
[2018-04-29] MEDS: LACTOBACILLUS RHAMNOSUS GG 1 CAPSULE. PO SCH (20:58)
--- NOTE | 2018-04-29 22:19 | CONS ---
DATE OF CONSULTATION: 04/29/2018 REFERRING PHYSICIAN: Dr. Campos. REASON FOR CONSULTATION: Possible UTI. HISTORY OF PRESENT ILLNESS: A 62-year-old female well known to our service with multiple hospitalizations this year with UTIs, presented to the ER with episodes of vomiting, diarrhea, altered mental status. The patient had been recently treated for UTI with Keflex and Macrobid and continued to have increased urination. Today, she complains of diarrhea. Denies any urinary symptoms. Denies any fevers or chills. Denies any nausea, vomiting. The patient continues to have right knee pain, but states that is chronic. No changes. She is sleepy, answers a few questions, asking for pain medication. White count was elevated at 17K. UA showed pyuria which is chronic, was started on empiric ceftriaxone and ID consult has been requested. The patient is unable to give much details except for above. On presentation, she had a fever of 102.8. Blood cultures were done which are pending at this time. Urine culture is also pending at this time. Last urine culture from 04/16/2018 showed greater than 100,000 E. coli pansensitive. On 04/06/2018, she had Enterococcus faecium 50,000 to 100,000 colony sensitive to nitrofurantoin and vancomycin. Infectious Disease consult has been requested for antibiotic management. PAST MEDICAL HISTORY: Hypertension, hyperlipidemia, GERD, chronic renal insufficiency, anemia, anxiety, depression, fibromyalgia, history of recurrent C. diff, recurrent urinary tract infection, history of SPC, which the patient had removed earlier this year. PAST SURGICAL HISTORY: Total knee replacement, tubal ligation. CURRENT MEDICATIONS: IV ceftriaxone. Other medications reviewed in medication list. ALLERGIES: DIPHENHYDRAMINE AND LEVOFLOXACIN, though patient has tolerated, Cipro and morphine. SOCIAL HISTORY: History of heavy alcohol dependence. Denies any current use. Drugs, none. Lives with her daughter and granddaughter. Smoking, denies. REVIEW OF SYSTEMS: Limited, but as above. PHYSICAL EXAMINATION: VITAL SIGNS: Temperature 99.8, T-max 102.8; pulse 68; respiratory rate 18; blood pressure 91/61, oxygen saturation 93% on room air. GENERAL: Sleepy, but arousable female, appears comfortable, in no acute distress, answers only a few questions, goes back to sleep. HEENT: Normocephalic, atraumatic, anicteric. No thrush. Oral mucosa moist. No exudates. NECK: Supple. No JVD. LUNGS: Clear bilaterally. No wheezing. CARDIOVASCULAR: S1, S2. No gallops or murmurs. ABDOMEN: Soft, nontender, nondistended. No rebound, no guarding. EXTREMITIES: No edema, no cyanosis. MUSCULOSKELETAL: No joint effusion, left knee arthroplasty, site looks okay, with decrease in range of motion. DERMATOLOGIC: No generalized rash. Warm, dry. CENTRAL NERVOUS SYSTEM: Sleepy, but arousable. Grossly nonfocal. PSYCHIATRIC: Calm. LABORATORY DATA: WBC 12.5-16.9, hemoglobin 9.3, was 10.3, platelets 261. Sodium 138, potassium 3.5, chloride 105, bicarbonate 24, creatinine 2.5, was 2.7, lactate 1.2, repeat is 0.2, calcium 8.4. UDS negative. MICROBIOLOGY: Blood culture negative so far. Urine culture negative so far. IMAGING: Radiology CT head: No acute intracranial abnormality. Knee x-ray, right no acute osseous abnormality identified. Degenerative changes. IMPRESSION: 1. Encephalopathy, likely metabolic, multifactorial. 2. Urinary tract infection. 3. Sepsis, suspected urosepsis. 4. Leukocytosis, improving. 5. History of Clostridium difficile. 6. Chronic kidney disease. 7. Anemia, chronic. 8. Severe gastroesophageal reflux disease. 9. Gastroparesis. 10. History of urinary retention, status post suprapubic catheter, status post removal earlier this year with urinary incontinence. 11. History of hiatal hernia. 12. History of alcohol dependence, none for a couple of months. 13. History of left knee total arthroplasty, stable. 14. History of chronic right knee pain, stable. 15. History of recurrent urinary tract infection. RECOMMENDATIONS: 1. Continue empiric ceftriaxone. 2. If patient has diarrhea, check C. diff. 3. Follow up blood culture and urine culture. 4. Maintain aspiration precaution. 5. Continue local care and supportive care. Thank you for allowing us to participate in this patient's care. If you have any questions, do not hesitate to contact me. ILDA ONEILL MD DR: LIZBETH/hal JOB#: [id number] / [id number]
[2018-04-29 22:42] VITALS: BP 106/63
[2018-04-30 02:50] VITALS: BP 99/58
[2018-04-30 07:00] VITALS: BP 107/72
[2018-04-30] MEDS: DULoxetine HCL 30 MG CAPSULE.DR PO SCH (09:20)
[2018-04-30] MEDS: LACTOBACILLUS RHAMNOSUS GG 1 CAPSULE. PO SCH ×2 (09:20→20:52)
[2018-04-30] MEDS: PANTOPRAZOLE 40 MG TABLET.DR. PO SCH (09:20)
[2018-04-30] MEDS: oxyCODONE/APAP 7.5/325 1 TAB TABLET PO PRN ×2 (09:21→17:59)
[2018-04-30] MEDS: amLODIPine BESYLATE 10 MG TABLET PO SCH (09:21)
[2018-04-30 10:07] LABS: BASO % 1 % (0-3); EOS # 0.2 x10^3/uL (0.0-0.7); EOS % 3 % (0-3); HEMATOCRIT 27.6 % (36.0-47.0); LYMPH # 1.1 x10^3/uL (1.0-4.8); LYMPH % 15 % (24-48); MEAN CORPUSCULAR HEMOGLOBIN 29 pg (25-35); MEAN CORPUSCULAR HGB CONC 33 g/dL (31-37); MEAN CORPUSCULAR VOLUME 89 fL (79-100); MONO # 0.9 x10^3/uL (0.0-1.1); MONO % 12 % (0-9); NEUT # 5.1 x10^3uL (1.8-7.7); NEUT % 70 % (31-73); PLATELET COUNT 255 x10^3/uL (140-400); RED CELL DISTRIBUTION WIDTH 18.5 % (11.5-14.5); WHITE BLOOD COUNT 7.3 x10^3/uL (4.0-11.0)
[2018-04-30 10:26] LABS: ALBUMIN 1.9 g/dL (3.4-5.0); ALBUMIN/GLOBULIN RATIO 0.5 (1.0-1.7); CALCIUM 8.3 mg/dL (8.5-10.1); CREATININE 2.6 mg/dL (0.6-1.0); GFR 18.7; POTASSIUM 3.9 mmol/L (3.5-5.1); TOTAL BILIRUBIN 0.1 mg/dL (0.2-1.0)
--- NOTE | 2018-04-30 10:48 | PDOC ---
OBJECTIVE Vital Signs Vital Signs Date Time Temp Pulse Resp B/P (MAP) Pulse Ox O2 Delivery O2 Flow Rate FiO2 04/30/18 09:21 20 94 Room Air 04/30/18 09:21 83 107/72 04/30/18 07:00 98.4 98.4 I & 0 Intake and Output 04/30/18 07:00 Intake Total 700 ml Balance 700 ml Intake Oral 700 ml # Voids 5 PHYSICAL EXAM Physical Exam General: NAD HEENT: OM moist neck Supple Lungs: Clear to auscultation Bilat, Non labored Heart - RRR, ANJELICA+ no gallops Abdomen: Normal bowel sounds, Soft Extremities: No edema Skin: No rashes Neuro: Grossly Normal Skin No rash - No Drummond , No CVA or SP tenderness DIAGNOSIS/ASSESSMENT Assessment & Plan CKD stage 4 - Hx of LUGO(neurogenic bladder) possible reflux nephropathy Multiple Hospitalizations with GILES Self caths at home x4 , SP catheter was removed by Urology due to UTI's in past Current FLuid and electrolyte status does not necessitate emergent need for Dialysis Bladder scan if decreased UOP , strict I/O Anemia - Hgb stable HTN- BP Low , Hold BP meds ? UTI- as per primary DW RN COMMENT/RELEVANT DATA Meds Current Medications Medications (Trade) Dose Ordered Sig/Taz Start Time Stop Time Status Last Admin Dose Admin Alprazolam (Xanax) 1 mg PRN TID PRN 04/28/18 20:45 04/29/18 08:43 1 MG Amlodipine Besylate (Norvasc) 10 mg DAILY 04/29/18 09:00 04/30/18 09:21 10 MG Ceftriaxone Sodium 1 gm/ Dextrose 50 ml @ 100 mls/hr Q24H 04/29/18 17:00 UNV Ceftriaxone Sodium (Rocephin) 1 gm Q24H 04/29/18 18:00 04/29/18 19:56 1 GM Duloxetine HCl (Cymbalta) 90 mg DAILY 04/29/18 09:00 04/30/18 09:20 90 MG Fentanyl Citrate (Fentanyl 2ml Vial) 50 mcg 1X ONCE 04/28/18 17:15 04/28/18 17:20 DC 04/28/18 17:53 50 MCG Lactobacillus Rhamnosus (Culturelle) 1 cap BID 04/29/18 21:00 04/30/18 09:20 1 CAP Non-Formulary Medication (Nitrofurantoin Monohyd/M-Cryst (Macrobid 100 Mg Capsule)) 1 cap BID 04/28/18 21:00 UNV Ondansetron HCl (Zofran) 4 mg PRN Q8HRS PRN 04/28/18 17:15 04/29/18 17:14 DC 04/28/18 17:52 4 MG Oxycodone/ Acetaminophen (Percocet 7.5/ 325) 1 tab PRN QID PRN 04/28/18 21:00 04/30/18 09:21 1 TAB Pantoprazole Sodium (Protonix) 40 mg DAILYAC 04/29/18 07:30 04/30/18 09:20 40 MG Sodium Chloride 1,000 ml @ 125 mls/hr Q8H 04/28/18 17:15 04/29/18 17:14 DC 04/29/18 14:21 125 MLS/HR Lab Laboratory Tests Test 04/30/18 09:55 White Blood Count 7.3 x10^3/uL (4.0-11.0) Red Blood Count 3.10 x10^6/uL (3.50-5.40) Hemoglobin 9.0 g/dL (12.0-15.5) Hematocrit 27.6 % (36.0-47.0) Mean Corpuscular Volume 89 fL (79-100) Mean Corpuscular Hemoglobin 29 pg (25-35) Mean Corpuscular Hemoglobin Concent 33 g/dL (31-37) Red Cell Distribution Width 18.5 % (11.5-14.5) Platelet Count 255 x10^3/uL (140-400) Neutrophils (%) (Auto) 70 % (31-73) Lymphocytes (%) (Auto) 15 % (24-48) Monocytes (%) (Auto) 12 % (0-9) Eosinophils (%) (Auto) 3 % (0-3) Basophils (%) (Auto) 1 % (0-3) Neutrophils # (Auto) 5.1 x10^3uL (1.8-7.7) Lymphocytes # (Auto) 1.1 x10^3/uL (1.0-4.8) Monocytes # (Auto) 0.9 x10^3/uL (0.0-1.1) Eosinophils # (Auto) 0.2 x10^3/uL (0.0-0.7) Basophils # (Auto) 0.0 x10^3/uL (0.0-0.2) Sodium Level 141 mmol/L (136-145) Potassium Level 3.9 mmol/L (3.5-5.1) Chloride Level 109 mmol/L (98-107) Carbon Dioxide Level 21 mmol/L (21-32) Anion Gap 11 (6-14) Blood Urea Nitrogen 23 mg/dL (7-20) Creatinine 2.6 mg/dL (0.6-1.0) Estimated GFR (Cockcroft-Gault) 18.7 BUN/Creatinine Ratio 9 (6-20) Glucose Level 88 mg/dL (70-99) Calcium Level 8.3 mg/dL (8.5-10.1) Total Bilirubin 0.1 mg/dL (0.2-1.0) Aspartate Amino Transf (AST/SGOT) 10 U/L (15-37) Alanine Aminotransferase (ALT/SGPT) 10 U/L (14-59) Alkaline Phosphatase 72 U/L (46-116) Total Protein 6.0 g/dL (6.4-8.2) Albumin 1.9 g/dL (3.4-5.0) Albumin/Globulin Ratio 0.5 (1.0-1.7) Results All relevant outside records, renal labs, imaging studies, telemetry/EKG's were reviewed. ALDAIR KRAFT MD Apr 30, 2018 10:48
[2018-04-30 11:00] VITALS: BP 93/62
--- NOTE | 2018-04-30 11:33 | PDOC ---
Infectious Disease Note Subjective: Subjective Pt is drowsy arousable says has pain in her back and knee no f/c/n/v has some loose bm no dysuria ROS: ROS limited Vital Signs: Vital Signs Vital Signs Date Time Temp Pulse Resp B/P (MAP) Pulse Ox O2 Delivery O2 Flow Rate FiO2 04/30/18 09:21 20 94 Room Air 04/30/18 09:21 83 107/72 04/30/18 07:00 98.4 98.4 Physical Exam: PHYSICAL EXAM GENERAL: She is awake, very confused, eating dinner HEART: Distant S1, S2. LUNGS: Clear. ABDOMEN: Soft, slightly tender. EXTREMITIES: Trace edema. SKIN: No rashes. ENDOCRINE: No thyromegaly. LYMPHATICS: No cervical nodes. HEMATOPOIETIC: No bruising. Medications: Inpatient Meds: Current Medications Medications (Trade) Dose Ordered Sig/Taz Start Time Stop Time Status Last Admin Dose Admin Alprazolam (Xanax) 1 mg PRN TID PRN 04/28/18 20:45 04/29/18 08:43 1 MG Amlodipine Besylate (Norvasc) 10 mg DAILY 04/29/18 09:00 04/30/18 09:21 10 MG Ceftriaxone Sodium 1 gm/ Dextrose 50 ml @ 100 mls/hr Q24H 04/29/18 17:00 UNV Ceftriaxone Sodium (Rocephin) 1 gm Q24H 04/29/18 18:00 04/29/18 19:56 1 GM Duloxetine HCl (Cymbalta) 90 mg DAILY 04/29/18 09:00 04/30/18 09:20 90 MG Fentanyl Citrate (Fentanyl 2ml Vial) 50 mcg 1X ONCE 04/28/18 17:15 04/28/18 17:20 DC 04/28/18 17:53 50 MCG Lactobacillus Rhamnosus (Culturelle) 1 cap BID 04/29/18 21:00 04/30/18 09:20 1 CAP Non-Formulary Medication (Nitrofurantoin Monohyd/M-Cryst (Macrobid 100 Mg Capsule)) 1 cap BID 04/28/18 21:00 UNV Ondansetron HCl (Zofran) 4 mg PRN Q8HRS PRN 04/28/18 17:15 04/29/18 17:14 DC 04/28/18 17:52 4 MG Oxycodone/ Acetaminophen (Percocet 7.5/ 325) 1 tab PRN QID PRN 04/28/18 21:00 04/30/18 09:21 1 TAB Pantoprazole Sodium (Protonix) 40 mg DAILYAC 04/29/18 07:30 04/30/18 09:20 40 MG Sodium Chloride 1,000 ml @ 125 mls/hr Q8H 04/28/18 17:15 04/29/18 17:14 DC 04/29/18 14:21 125 MLS/HR Labs: Lab Laboratory Tests Test 04/30/18 09:55 White Blood Count 7.3 x10^3/uL (4.0-11.0) Red Blood Count 3.10 x10^6/uL (3.50-5.40) Hemoglobin 9.0 g/dL (12.0-15.5) Hematocrit 27.6 % (36.0-47.0) Mean Corpuscular Volume 89 fL (79-100) Mean Corpuscular Hemoglobin 29 pg (25-35) Mean Corpuscular Hemoglobin Concent 33 g/dL (31-37) Red Cell Distribution Width 18.5 % (11.5-14.5) Platelet Count 255 x10^3/uL (140-400) Neutrophils (%) (Auto) 70 % (31-73) Lymphocytes (%) (Auto) 15 % (24-48) Monocytes (%) (Auto) 12 % (0-9) Eosinophils (%) (Auto) 3 % (0-3) Basophils (%) (Auto) 1 % (0-3) Neutrophils # (Auto) 5.1 x10^3uL (1.8-7.7) Lymphocytes # (Auto) 1.1 x10^3/uL (1.0-4.8) Monocytes # (Auto) 0.9 x10^3/uL (0.0-1.1) Eosinophils # (Auto) 0.2 x10^3/uL (0.0-0.7) Basophils # (Auto) 0.0 x10^3/uL (0.0-0.2) Sodium Level 141 mmol/L (136-145) Potassium Level 3.9 mmol/L (3.5-5.1) Chloride Level 109 mmol/L (98-107) Carbon Dioxide Level 21 mmol/L (21-32) Anion Gap 11 (6-14) Blood Urea Nitrogen 23 mg/dL (7-20) Creatinine 2.6 mg/dL (0.6-1.0) Estimated GFR (Cockcroft-Gault) 18.7 BUN/Creatinine Ratio 9 (6-20) Glucose Level 88 mg/dL (70-99) Calcium Level 8.3 mg/dL (8.5-10.1) Total Bilirubin 0.1 mg/dL (0.2-1.0) Aspartate Amino Transf (AST/SGOT) 10 U/L (15-37) Alanine Aminotransferase (ALT/SGPT) 10 U/L (14-59) Alkaline Phosphatase 72 U/L (46-116) Total Protein 6.0 g/dL (6.4-8.2) Albumin 1.9 g/dL (3.4-5.0) Albumin/Globulin Ratio 0.5 (1.0-1.7) Objective: Assessment: 1. Encephalopathy, likely metabolic, multifactorial. improving though slowly 2. Pyuria , possible UTI 3. Sepsis, 4. Leukocytosis, improving. 5. History of Clostridium difficile. 6. Chronic kidney disease. 7. Anemia, chronic. 8. Severe gastroesophageal reflux disease. 9. Gastroparesis. 10. History of urinary retention, status post suprapubic catheter, status post removal earlier this year with urinary incontinence. 11. History of hiatal hernia. 12. History of alcohol dependence, none for a couple of months. 13. History of left knee total arthroplasty, stable. 14. History of chronic back and right knee pain, stable. 15. History of recurrent urinary tract infection. Plan: Plan of Care 1. Continue empiric ceftriaxone. 2. If patient has diarrhea, check C. diff. 3. Follow up blood culture and urine culture. 4. Maintain aspiration precaution. 5. Continue supportive care. ILDA ONEILL MD Apr 30, 2018 11:33
--- NOTE | 2018-04-30 12:23 | PDOC ---
PROGRESS NOTES History of Present Illness History of Present Illness ASSESSMENT AND PLAN: urosepsis metabolic encephalopathy. SLOW IMPROVEMENT admitted. IV antibiotics, IV fluids. home medicines, frequent labs. Urine culture. Full code. PT, OT. Vitals Vitals Vital Signs Date Time Temp Pulse Resp B/P (MAP) Pulse Ox O2 Delivery O2 Flow Rate FiO2 04/30/18 11:00 97.6 79 18 93/62 (72) 91 Room Air 97.6 Physical Exam Physical Exam GENERAL: She is awake, very confused, eating dinner HEART: Distant S1, S2. LUNGS: Clear. ABDOMEN: Soft, slightly tender. EXTREMITIES: Trace edema. SKIN: No rashes. ENDOCRINE: No thyromegaly. LYMPHATICS: No cervical nodes. HEMATOPOIETIC: No bruising. General: Alert, Oriented X3, Cooperative, No acute distress, mild distress Heart: Regular rate, Normal S1, Normal S2 Lungs: Clear Abdomen: Normal bowel sounds, Soft, No hepatosplenomegaly Extremities: No cyanosis Labs LABS Laboratory Tests Test 04/30/18 09:55 White Blood Count 7.3 x10^3/uL (4.0-11.0) Red Blood Count 3.10 x10^6/uL (3.50-5.40) Hemoglobin 9.0 g/dL (12.0-15.5) Hematocrit 27.6 % (36.0-47.0) Mean Corpuscular Volume 89 fL (79-100) Mean Corpuscular Hemoglobin 29 pg (25-35) Mean Corpuscular Hemoglobin Concent 33 g/dL (31-37) Red Cell Distribution Width 18.5 % (11.5-14.5) Platelet Count 255 x10^3/uL (140-400) Neutrophils (%) (Auto) 70 % (31-73) Lymphocytes (%) (Auto) 15 % (24-48) Monocytes (%) (Auto) 12 % (0-9) Eosinophils (%) (Auto) 3 % (0-3) Basophils (%) (Auto) 1 % (0-3) Neutrophils # (Auto) 5.1 x10^3uL (1.8-7.7) Lymphocytes # (Auto) 1.1 x10^3/uL (1.0-4.8) Monocytes # (Auto) 0.9 x10^3/uL (0.0-1.1) Eosinophils # (Auto) 0.2 x10^3/uL (0.0-0.7) Basophils # (Auto) 0.0 x10^3/uL (0.0-0.2) Sodium Level 141 mmol/L (136-145) Potassium Level 3.9 mmol/L (3.5-5.1) Chloride Level 109 mmol/L (98-107) Carbon Dioxide Level 21 mmol/L (21-32) Anion Gap 11 (6-14) Blood Urea Nitrogen 23 mg/dL (7-20) Creatinine 2.6 mg/dL (0.6-1.0) Estimated GFR (Cockcroft-Gault) 18.7 BUN/Creatinine Ratio 9 (6-20) Glucose Level 88 mg/dL (70-99) Calcium Level 8.3 mg/dL (8.5-10.1) Total Bilirubin 0.1 mg/dL (0.2-1.0) Aspartate Amino Transf (AST/SGOT) 10 U/L (15-37) Alanine Aminotransferase (ALT/SGPT) 10 U/L (14-59) Alkaline Phosphatase 72 U/L (46-116) Total Protein 6.0 g/dL (6.4-8.2) Albumin 1.9 g/dL (3.4-5.0) Albumin/Globulin Ratio 0.5 (1.0-1.7) Comment Review of Relevant I have reviewed the following items blade (where applicable) has been applied. Labs Laboratory Tests Test 04/28/18 15:11 04/28/18 15:14 04/28/18 23:40 04/29/18 06:34 White Blood Count 16.9 x10^3/uL (4.0-11.0) 12.5 x10^3/uL (4.0-11.0) Red Blood Count 3.55 x10^6/uL (3.50-5.40) 3.24 x10^6/uL (3.50-5.40) Hemoglobin 10.3 g/dL (12.0-15.5) 9.3 g/dL (12.0-15.5) Hematocrit 30.7 % (36.0-47.0) 28.3 % (36.0-47.0) Mean Corpuscular Volume 87 fL (79-100) 87 fL (79-100) Mean Corpuscular Hemoglobin 29 pg (25-35) 29 pg (25-35) Mean Corpuscular Hemoglobin Concent 33 g/dL (31-37) 33 g/dL (31-37) Red Cell Distribution Width 18.0 % (11.5-14.5) 18.1 % (11.5-14.5) Platelet Count 288 x10^3/uL (140-400) 261 x10^3/uL (140-400) Neutrophils (%) (Auto) 82 % (31-73) 76 % (31-73) Lymphocytes (%) (Auto) 7 % (24-48) 10 % (24-48) Monocytes (%) (Auto) 10 % (0-9) 13 % (0-9) Eosinophils (%) (Auto) 0 % (0-3) 1 % (0-3) Basophils (%) (Auto) 0 % (0-3) 0 % (0-3) Neutrophils # (Auto) 13.9 x10^3uL (1.8-7.7) 9.5 x10^3uL (1.8-7.7) Lymphocytes # (Auto) 1.1 x10^3/uL (1.0-4.8) 1.3 x10^3/uL (1.0-4.8) Monocytes # (Auto) 1.8 x10^3/uL (0.0-1.1) 1.6 x10^3/uL (0.0-1.1) Eosinophils # (Auto) 0.0 x10^3/uL (0.0-0.7) 0.1 x10^3/uL (0.0-0.7) Basophils # (Auto) 0.1 x10^3/uL (0.0-0.2) 0.0 x10^3/uL (0.0-0.2) Segmented Neutrophils % 79 % (35-66) Band Neutrophils % 6 % (0-9) Lymphocytes % 7 % (24-48) Monocytes % 8 % (0-10) Platelet Estimate Adequate (ADEQUATE) Anisocytosis Slight Sodium Level 135 mmol/L (136-145) 138 mmol/L (136-145) Potassium Level 3.6 mmol/L (3.5-5.1) 3.5 mmol/L (3.5-5.1) Chloride Level 97 mmol/L (98-107) 105 mmol/L (98-107) Carbon Dioxide Level 24 mmol/L (21-32) 23 mmol/L (21-32) Anion Gap 14 (6-14) 10 (6-14) Blood Urea Nitrogen 22 mg/dL (7-20) 24 mg/dL (7-20) Creatinine 2.7 mg/dL (0.6-1.0) 2.5 mg/dL (0.6-1.0) Estimated GFR (Cockcroft-Gault) 17.9 19.6 BUN/Creatinine Ratio 8 (6-20) Glucose Level 91 mg/dL (70-99) 90 mg/dL (70-99) Lactic Acid Level 1.2 mmol/L (0.4-2.0) 0.5 mmol/L (0.4-2.0) Calcium Level 9.4 mg/dL (8.5-10.1) 8.4 mg/dL (8.5-10.1) Total Bilirubin 0.7 mg/dL (0.2-1.0) Aspartate Amino Transf (AST/SGOT) 14 U/L (15-37) Alanine Aminotransferase (ALT/SGPT) 15 U/L (14-59) Alkaline Phosphatase 91 U/L (46-116) Ammonia < 10 mcmol/L (11-34) Total Protein 8.0 g/dL (6.4-8.2) Albumin 2.8 g/dL (3.4-5.0) Albumin/Globulin Ratio 0.5 (1.0-1.7) Ethyl Alcohol Level < 10 mg/dL (0-10) Urine Collection Type U cath Urine Color Yellow Urine Clarity Clear Urine pH 6.5 Urine Specific [place] 1.010 Urine Protein 100 mg/dL (NEG-TRACE) Urine Glucose (UA) Negative mg/dL (NEG) Urine Ketones (Stick) Negative mg/dL (NEG) Urine Blood Small (NEG) Urine Nitrite Negative (NEG) Urine Bilirubin Negative (NEG) Urine Urobilinogen Dipstick 0.2 mg/dL (0.2 mg/dL) Urine Leukocyte Esterase Moderate (NEG) Urine RBC Occ /HPF (0-2) Urine WBC 5-10 /HPF (0-4) Urine Squamous Epithelial Cells Occ /LPF Urine Bacteria Many /HPF (0-FEW) Urine Mucus Mod /LPF Urine Opiates Screen Neg (NEG) Urine Methadone Screen Neg (NEG) Urine Barbiturates Neg (NEG) Urine Phencyclidine Screen Neg (NEG) Urine Amphetamine/Methamphetamine Neg (NEG) Urine Benzodiazepines Screen Neg (NEG) Urine Cocaine Screen Neg (NEG) Urine Cannabinoids Screen Neg (NEG) Urine Ethyl Alcohol Neg (NEG) Test 04/30/18 09:55 White Blood Count 7.3 x10^3/uL (4.0-11.0) Red Blood Count 3.10 x10^6/uL (3.50-5.40) Hemoglobin 9.0 g/dL (12.0-15.5) Hematocrit 27.6 % (36.0-47.0) Mean Corpuscular Volume 89 fL (79-100) Mean Corpuscular Hemoglobin 29 pg (25-35) Mean Corpuscular Hemoglobin Concent 33 g/dL (31-37) Red Cell Distribution Width 18.5 % (11.5-14.5) Platelet Count 255 x10^3/uL (140-400) Neutrophils (%) (Auto) 70 % (31-73) Lymphocytes (%) (Auto) 15 % (24-48) Monocytes (%) (Auto) 12 % (0-9) Eosinophils (%) (Auto) 3 % (0-3) Basophils (%) (Auto) 1 % (0-3) Neutrophils # (Auto) 5.1 x10^3uL (1.8-7.7) Lymphocytes # (Auto) 1.1 x10^3/uL (1.0-4.8) Monocytes # (Auto) 0.9 x10^3/uL (0.0-1.1) Eosinophils # (Auto) 0.2 x10^3/uL (0.0-0.7) Basophils # (Auto) 0.0 x10^3/uL (0.0-0.2) Sodium Level 141 mmol/L (136-145) Potassium Level 3.9 mmol/L (3.5-5.1) Chloride Level 109 mmol/L (98-107) Carbon Dioxide Level 21 mmol/L (21-32) Anion Gap 11 (6-14) Blood Urea Nitrogen 23 mg/dL (7-20) Creatinine 2.6 mg/dL (0.6-1.0) Estimated GFR (Cockcroft-Gault) 18.7 BUN/Creatinine Ratio 9 (6-20) Glucose Level 88 mg/dL (70-99) Calcium Level 8.3 mg/dL (8.5-10.1) Total Bilirubin 0.1 mg/dL (0.2-1.0) Aspartate Amino Transf (AST/SGOT) 10 U/L (15-37) Alanine Aminotransferase (ALT/SGPT) 10 U/L (14-59) Alkaline Phosphatase 72 U/L (46-116) Total Protein 6.0 g/dL (6.4-8.2) Albumin 1.9 g/dL (3.4-5.0) Albumin/Globulin Ratio 0.5 (1.0-1.7) Laboratory Tests Test 04/30/18 09:55 White Blood Count 7.3 x10^3/uL (4.0-11.0) Red Blood Count 3.10 x10^6/uL (3.50-5.40) Hemoglobin 9.0 g/dL (12.0-15.5) Hematocrit 27.6 % (36.0-47.0) Mean Corpuscular Volume 89 fL (79-100) Mean Corpuscular Hemoglobin 29 pg (25-35) Mean Corpuscular Hemoglobin Concent 33 g/dL (31-37) Red Cell Distribution Width 18.5 % (11.5-14.5) Platelet Count 255 x10^3/uL (140-400) Neutrophils (%) (Auto) 70 % (31-73) Lymphocytes (%) (Auto) 15 % (24-48) Monocytes (%) (Auto) 12 % (0-9) Eosinophils (%) (Auto) 3 % (0-3) Basophils (%) (Auto) 1 % (0-3) Neutrophils # (Auto) 5.1 x10^3uL (1.8-7.7) Lymphocytes # (Auto) 1.1 x10^3/uL (1.0-4.8) Monocytes # (Auto) 0.9 x10^3/uL (0.0-1.1) Eosinophils # (Auto) 0.2 x10^3/uL (0.0-0.7) Basophils # (Auto) 0.0 x10^3/uL (0.0-0.2) Sodium Level 141 mmol/L (136-145) Potassium Level 3.9 mmol/L (3.5-5.1) Chloride Level 109 mmol/L (98-107) Carbon Dioxide Level 21 mmol/L (21-32) Anion Gap 11 (6-14) Blood Urea Nitrogen 23 mg/dL (7-20) Creatinine 2.6 mg/dL (0.6-1.0) Estimated GFR (Cockcroft-Gault) 18.7 BUN/Creatinine Ratio 9 (6-20) Glucose Level 88 mg/dL (70-99) Calcium Level 8.3 mg/dL (8.5-10.1) Total Bilirubin 0.1 mg/dL (0.2-1.0) Aspartate Amino Transf (AST/SGOT) 10 U/L (15-37) Alanine Aminotransferase (ALT/SGPT) 10 U/L (14-59) Alkaline Phosphatase 72 U/L (46-116) Total Protein 6.0 g/dL (6.4-8.2) Albumin 1.9 g/dL (3.4-5.0) Albumin/Globulin Ratio 0.5 (1.0-1.7) Microbiology 04/28/18 Blood Culture - Preliminary, Resulted NO GROWTH AFTER 1 DAY Medications Current Medications Sodium Chloride 1,000 ml @ 1,000 mls/hr 1X ONCE IV Last administered on 04/28at 15:58; Start 04/28/18 at 15:15; Stop 04/28/18 at 16:14; Status DC Ondansetron HCl (Zofran) 4 mg PRN Q8HRS PRN IV NAUSEA/VOMITING Last administered on 04/28/18at 17:52; Start 04/28/18 at 17:15; Stop 04/29/18 at 17 :14; Status DC Fentanyl Citrate (Fentanyl 2ml Vial) 50 mcg PRN Q2HR PRN IV PAIN; Start at 17:15; Stop 04/29/18 at 17:14; Status DC Sodium Chloride 1,000 ml @ 125 mls/hr Q8H IV Last administered on 04/29/18at 14:21; Start 04/28/18 at 17:15; Stop 04/29/18 at 17:14; Status DC Fentanyl Citrate (Fentanyl 2ml Vial) 50 mcg 1X ONCE IV Last administered on at 17:53; Start 04/28/18 at 17:15; Stop 04/28/18 at 17:20; Status DC Ceftriaxone Sodium 1 gm/ Dextrose 50 ml @ 100 mls/hr Q24H IV ; Start 04/29/18 at 17:00; Status UNV Ceftriaxone Sodium 50 ml @ 100 mls/hr 1X ONCE IV Last administered on at 17:53; Start 04/28/18 at 17:30; Stop 04/28/18 at 17:59; Status DC Ceftriaxone Sodium (Rocephin) 1 gm Q24H IVP Last administered on 04/29/18at 19: 56; Start 04/29/18 at 18:00 Alprazolam (Xanax) 1 mg PRN TID PRN PO ANXIETY / AGITATION Last administered on 04/29/18 08:43; Start 04/28/18 at 20:45 Amlodipine Besylate (Norvasc) 10 mg DAILY PO Last administered on 04/30/18 09 :21; Start 04/29/18 at 09:00 Duloxetine HCl (Cymbalta) 90 mg DAILY PO Last administered on 04/30/18 09:20 ; Start 04/29/18 at 09:00 Oxycodone/ Acetaminophen (Percocet 7.5/ 325) 1 tab QID PO ; Start 04/28/18 at 21:00; Stop 04/28/18 at 21:00; Status DC Pantoprazole Sodium (Protonix) 40 mg DAILYAC PO Last administered on at 09:20; Start 04/29/18 at 07:30 Non-Formulary Medication (Nitrofurantoin Monohyd/M-Cryst (Macrobid 100 Mg Capsule)) 1 cap BID PO ; Start 04/28/18 at 21:00; Status UNV Oxycodone/ Acetaminophen (Percocet 7.5/ 325) 1 tab PRN QID PRN PO PAIN Last administered on 04/30/18 09:21; Start 04/28/18 at 21:00 Lactobacillus Rhamnosus (Culturelle) 1 cap BID PO Last administered on at 09:20; Start 04/29/18 at 21:00 Active Scripts Active Zofran Odt (Ondansetron) 4 Mg Tab.rapdis 1 Tab SL Q8HRS PRN Macrobid 100 Mg Capsule (Nitrofurantoin Monohyd/M-Cryst) 100 Mg Capsule 1 Cap PO BID Zofran Odt (Ondansetron) 4 Mg Tab.rapdis 1 Tab SL Q8HRS Percocet 7.5-325 Mg Tablet (Oxycodone/Acetaminophen) 1 Each Tablet 1 Tab PO QID Cymbalta (Duloxetine Hcl) 30 Mg Capsule.dr 90 Mg PO DAILY 30 Days Oxycodone Hcl 10 Mg Tablet 1 Tab PO PRN Q6HRS PRN 30 Days Alprazolam 0.5 Mg Tablet 1 Tab PO TID 30 Days Reported Amlodipine Besylate 10 Mg Tablet 10 Mg PO DAILY Alprazolam 1 Mg Tablet 1 Mg PO PRN TID PRN Nexium Capsule (Esomeprazole Magnesium) 40 Mg Capsule. 1 Cap PO DAILY Vitals/I & O Vital Sign - Last 24 Hours 04/29/18 04/29/18 04/29/18 04/29/18 14:22 15:00 15:30 19:00 Temp 97.5 97.9 97.5 97.9 Pulse 91 76 Resp 20 16 19 18 B/P (MAP) 102/70 (81) 95/55 (68) Pulse Ox 93 92 97 O2 Delivery Room Air Room Air Room Air 04/29/18 04/29/18 04/29/18 04/29/18 20:00 20:58 22:00 22:42 Pulse 64 Resp 18 B/P (MAP) 106/63 (77) Pulse Ox 97 97 95 O2 Delivery Room Air Room Air Room Air Room Air 04/30/18 04/30/18 04/30/18 04/30/18 02:50 07:00 09:21 09:21 Temp 98.5 98.4 98.5 98.4 Pulse 71 83 83 Resp 19 20 20 B/P (MAP) 99/58 (72) 107/72 (84) 107/72 Pulse Ox 95 94 94 O2 Delivery Room Air Room Air Room Air 04/30/18 11:00 Temp 97.6 97.6 Pulse 79 Resp 18 B/P (MAP) 93/62 (72) Pulse Ox 91 O2 Delivery Room Air Intake and Output 10/30/18 10/30/18 10/31/18 15:00 23:00 07:00 Intake Total 200 ml 500 ml Balance 200 ml 500 ml WEI COLLINS MD Apr 30, 2018 12:23
--- NOTE | 2018-04-30 13:27 | PDOC2 ---
CAROL MORENO CONCESSION ATTENDANT 04/30/18 1327: UROLOGY CONSULT Date of Consult Date of Consult DATE: 04/30/18 TIME: 13:19 Reason for Consult Reason for Consult: Chronic Urinary Retention Identification/Chief Complaint Chief Complaint Chronic Urinary retention Source Source: Caregiver, Chart review, Patient History of Present Illness Reason for Visit: This 62 year old female is known to us and a patient of Dr. Abreu. She has been seen several times in our office for Chronic Urinary Retention. We tried several options for her chronic urinary retention/neurogenic bladder to include : traditional indwelling kerns, SP tube, and I and O catheterization. Patient tried the first two and did not like either. She is currently doing I and O catheterization two to four times daily as an outpatient. While admitted, she does not mind having an indwelling traditional kerns catheter. She has been in and out of the hospital several times for various complaints from UTI to alcoholism. This admission, she came in for severe disorientation and hallucinations. She is oriented currently, but seeing "bugs crawling" around different areas in the room, like the crucifix and around the smoke alarm. She denies any flank or abd pain currently but does feel like she needs to urinate. Past Medical History Cardiovascular: HTN, Hyperlipidemia Pulmonary: No pertinent hx GI: GERD, Other Heme/Onc: Anemia NOS Hepatobiliary: Other Psych: Anxiety, Depression Rheumatologic: Fibromyalgia Infectious disease: No pertinent hx, Other Renal/: Chronic renal insuff, Other Past Surgical History Past Surgical History: Total knee replacement, Tubal Ligation, Other Family History Family History: Heart Disease, Hypertension Social History ALCOHOL: other Drugs: Marijuana Lives: Alone Current Medications Current Medications Current Medications Ceftriaxone Sodium 1 gm/ Dextrose 50 ml @ 100 mls/hr Q24H IV ; Start 04/29/18 at 17:00; Status UNV Ceftriaxone Sodium (Rocephin) 1 gm Q24H IVP Last administered on 04/29/18at 19: 56; Start 04/29/18 at 18:00 Lactobacillus Rhamnosus (Culturelle) 1 cap BID PO Last administered on at 09:20; Start 04/29/18 at 21:00 Allergies Allergies: Coded Allergies: levofloxacin (Verified Allergy, Intermediate, 01/23/18) TOLERATES CIPRO I S O L A T I O N *CONTACT* (Verified Allergy, Unknown, 04/14/18) mrsa, chronic C.diff diphenhydramine HCl (Verified Adverse Reaction, Intermediate, "Jittery on the inside", 01/23/18) ROS Review Of Systems: CONSTITUTIONAL: No fever or chills EYES: No recent changes SKIN: No rash or itching CARDIOVASCULAR: No chest pain, syncope, palpitations, or edema RESPIRATORY: No SOB or cough GASTROINTESTINAL: No nausea, vomiting or abdominal pain NEUROLOGICAL: No headaches or weakness ENDOCRINE: No cold or heat intolerance GENITOURINARY: No urgency or frequency of urination MUSCULOSKELETAL: No back pain or joint pain LYMPHATICS: No enlarged lymph nodes PSYCHIATRIC: + hallucinations, bugs crawling Physical Exam Physical Exam: General: Pleasant, no acute distress, well groomed Eyes: conjunctiva anicteric, eyes full range of motion ENT: moist oral mucosa, normal dentition Neck: Trachea midline, no masses Respiratory: unlabored breathing, not using accessory muscles Abdomen: nontender, nondistended, no hepatosplenomegaly, no masses Skin: no rashes or skin lesions on visualized skin Psych: normal mood, affect. Alert and 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. Admits hallucinations. Vitals VITALS Vital Signs Date Time Temp Pulse Resp B/P (MAP) Pulse Ox O2 Delivery O2 Flow Rate FiO2 04/30/18 11:00 97.6 79 18 93/62 (72) 91 Room Air 97.6 Labs Labs Laboratory Tests Test 04/28/18 15:11 04/28/18 15:14 04/28/18 23:40 04/29/18 06:34 White Blood Count 16.9 x10^3/uL (4.0-11.0) 12.5 x10^3/uL (4.0-11.0) Red Blood Count 3.55 x10^6/uL (3.50-5.40) 3.24 x10^6/uL (3.50-5.40) Hemoglobin 10.3 g/dL (12.0-15.5) 9.3 g/dL (12.0-15.5) Hematocrit 30.7 % (36.0-47.0) 28.3 % (36.0-47.0) Mean Corpuscular Volume 87 fL (79-100) 87 fL (79-100) Mean Corpuscular Hemoglobin 29 pg (25-35) 29 pg (25-35) Mean Corpuscular Hemoglobin Concent 33 g/dL (31-37) 33 g/dL (31-37) Red Cell Distribution Width 18.0 % (11.5-14.5) 18.1 % (11.5-14.5) Platelet Count 288 x10^3/uL (140-400) 261 x10^3/uL (140-400) Neutrophils (%) (Auto) 82 % (31-73) 76 % (31-73) Lymphocytes (%) (Auto) 7 % (24-48) 10 % (24-48) Monocytes (%) (Auto) 10 % (0-9) 13 % (0-9) Eosinophils (%) (Auto) 0 % (0-3) 1 % (0-3) Basophils (%) (Auto) 0 % (0-3) 0 % (0-3) Neutrophils # (Auto) 13.9 x10^3uL (1.8-7.7) 9.5 x10^3uL (1.8-7.7) Lymphocytes # (Auto) 1.1 x10^3/uL (1.0-4.8) 1.3 x10^3/uL (1.0-4.8) Monocytes # (Auto) 1.8 x10^3/uL (0.0-1.1) 1.6 x10^3/uL (0.0-1.1) Eosinophils # (Auto) 0.0 x10^3/uL (0.0-0.7) 0.1 x10^3/uL (0.0-0.7) Basophils # (Auto) 0.1 x10^3/uL (0.0-0.2) 0.0 x10^3/uL (0.0-0.2) Segmented Neutrophils % 79 % (35-66) Band Neutrophils % 6 % (0-9) Lymphocytes % 7 % (24-48) Monocytes % 8 % (0-10) Platelet Estimate Adequate (ADEQUATE) Anisocytosis Slight Sodium Level 135 mmol/L (136-145) 138 mmol/L (136-145) Potassium Level 3.6 mmol/L (3.5-5.1) 3.5 mmol/L (3.5-5.1) Chloride Level 97 mmol/L (98-107) 105 mmol/L (98-107) Carbon Dioxide Level 24 mmol/L (21-32) 23 mmol/L (21-32) Anion Gap 14 (6-14) 10 (6-14) Blood Urea Nitrogen 22 mg/dL (7-20) 24 mg/dL (7-20) Creatinine 2.7 mg/dL (0.6-1.0) 2.5 mg/dL (0.6-1.0) Estimated GFR (Cockcroft-Gault) 17.9 19.6 BUN/Creatinine Ratio 8 (6-20) Glucose Level 91 mg/dL (70-99) 90 mg/dL (70-99) Lactic Acid Level 1.2 mmol/L (0.4-2.0) 0.5 mmol/L (0.4-2.0) Calcium Level 9.4 mg/dL (8.5-10.1) 8.4 mg/dL (8.5-10.1) Total Bilirubin 0.7 mg/dL (0.2-1.0) Aspartate Amino Transf (AST/SGOT) 14 U/L (15-37) Alanine Aminotransferase (ALT/SGPT) 15 U/L (14-59) Alkaline Phosphatase 91 U/L (46-116) Ammonia < 10 mcmol/L (11-34) Total Protein 8.0 g/dL (6.4-8.2) Albumin 2.8 g/dL (3.4-5.0) Albumin/Globulin Ratio 0.5 (1.0-1.7) Ethyl Alcohol Level < 10 mg/dL (0-10) Urine Collection Type U cath Urine Color Yellow Urine Clarity Clear Urine pH 6.5 Urine Specific [place] 1.010 Urine Protein 100 mg/dL (NEG-TRACE) Urine Glucose (UA) Negative mg/dL (NEG) Urine Ketones (Stick) Negative mg/dL (NEG) Urine Blood Small (NEG) Urine Nitrite Negative (NEG) Urine Bilirubin Negative (NEG) Urine Urobilinogen Dipstick 0.2 mg/dL (0.2 mg/dL) Urine Leukocyte Esterase Moderate (NEG) Urine RBC Occ /HPF (0-2) Urine WBC 5-10 /HPF (0-4) Urine Squamous Epithelial Cells Occ /LPF Urine Bacteria Many /HPF (0-FEW) Urine Mucus Mod /LPF Urine Opiates Screen Neg (NEG) Urine Methadone Screen Neg (NEG) Urine Barbiturates Neg (NEG) Urine Phencyclidine Screen Neg (NEG) Urine Amphetamine/Methamphetamine Neg (NEG) Urine Benzodiazepines Screen Neg (NEG) Urine Cocaine Screen Neg (NEG) Urine Cannabinoids Screen Neg (NEG) Urine Ethyl Alcohol Neg (NEG) Test 04/30/18 09:55 White Blood Count 7.3 x10^3/uL (4.0-11.0) Red Blood Count 3.10 x10^6/uL (3.50-5.40) Hemoglobin 9.0 g/dL (12.0-15.5) Hematocrit 27.6 % (36.0-47.0) Mean Corpuscular Volume 89 fL (79-100) Mean Corpuscular Hemoglobin 29 pg (25-35) Mean Corpuscular Hemoglobin Concent 33 g/dL (31-37) Red Cell Distribution Width 18.5 % (11.5-14.5) Platelet Count 255 x10^3/uL (140-400) Neutrophils (%) (Auto) 70 % (31-73) Lymphocytes (%) (Auto) 15 % (24-48) Monocytes (%) (Auto) 12 % (0-9) Eosinophils (%) (Auto) 3 % (0-3) Basophils (%) (Auto) 1 % (0-3) Neutrophils # (Auto) 5.1 x10^3uL (1.8-7.7) Lymphocytes # (Auto) 1.1 x10^3/uL (1.0-4.8) Monocytes # (Auto) 0.9 x10^3/uL (0.0-1.1) Eosinophils # (Auto) 0.2 x10^3/uL (0.0-0.7) Basophils # (Auto) 0.0 x10^3/uL (0.0-0.2) Sodium Level 141 mmol/L (136-145) Potassium Level 3.9 mmol/L (3.5-5.1) Chloride Level 109 mmol/L (98-107) Carbon Dioxide Level 21 mmol/L (21-32) Anion Gap 11 (6-14) Blood Urea Nitrogen 23 mg/dL (7-20) Creatinine 2.6 mg/dL (0.6-1.0) Estimated GFR (Cockcroft-Gault) 18.7 BUN/Creatinine Ratio 9 (6-20) Glucose Level 88 mg/dL (70-99) Calcium Level 8.3 mg/dL (8.5-10.1) Total Bilirubin 0.1 mg/dL (0.2-1.0) Aspartate Amino Transf (AST/SGOT) 10 U/L (15-37) Alanine Aminotransferase (ALT/SGPT) 10 U/L (14-59) Alkaline Phosphatase 72 U/L (46-116) Total Protein 6.0 g/dL (6.4-8.2) Albumin 1.9 g/dL (3.4-5.0) Albumin/Globulin Ratio 0.5 (1.0-1.7) Laboratory Tests Test 04/30/18 09:55 White Blood Count 7.3 x10^3/uL (4.0-11.0) Red Blood Count 3.10 x10^6/uL (3.50-5.40) Hemoglobin 9.0 g/dL (12.0-15.5) Hematocrit 27.6 % (36.0-47.0) Mean Corpuscular Volume 89 fL (79-100) Mean Corpuscular Hemoglobin 29 pg (25-35) Mean Corpuscular Hemoglobin Concent 33 g/dL (31-37) Red Cell Distribution Width 18.5 % (11.5-14.5) Platelet Count 255 x10^3/uL (140-400) Neutrophils (%) (Auto) 70 % (31-73) Lymphocytes (%) (Auto) 15 % (24-48) Monocytes (%) (Auto) 12 % (0-9) Eosinophils (%) (Auto) 3 % (0-3) Basophils (%) (Auto) 1 % (0-3) Neutrophils # (Auto) 5.1 x10^3uL (1.8-7.7) Lymphocytes # (Auto) 1.1 x10^3/uL (1.0-4.8) Monocytes # (Auto) 0.9 x10^3/uL (0.0-1.1) Eosinophils # (Auto) 0.2 x10^3/uL (0.0-0.7) Basophils # (Auto) 0.0 x10^3/uL (0.0-0.2) Sodium Level 141 mmol/L (136-145) Potassium Level 3.9 mmol/L (3.5-5.1) Chloride Level 109 mmol/L (98-107) Carbon Dioxide Level 21 mmol/L (21-32) Anion Gap 11 (6-14) Blood Urea Nitrogen 23 mg/dL (7-20) Creatinine 2.6 mg/dL (0.6-1.0) Estimated GFR (Cockcroft-Gault) 18.7 BUN/Creatinine Ratio 9 (6-20) Glucose Level 88 mg/dL (70-99) Calcium Level 8.3 mg/dL (8.5-10.1) Total Bilirubin 0.1 mg/dL (0.2-1.0) Aspartate Amino Transf (AST/SGOT) 10 U/L (15-37) Alanine Aminotransferase (ALT/SGPT) 10 U/L (14-59) Alkaline Phosphatase 72 U/L (46-116) Total Protein 6.0 g/dL (6.4-8.2) Albumin 1.9 g/dL (3.4-5.0) Albumin/Globulin Ratio 0.5 (1.0-1.7) Assessment/Plan Assessment/Plan Nephropathy is from chronic urinary retention. This has been an ongoing problem for her and she has been non-complaint with her bladder emptying regimen in the past. Nursing staff to insert kerns catheter. Collect UA with insertion and send for UA with culture if indicated. Record initial urinary output with catheter insertion. Leave indwelling kerns in place until discharge. At that time, patient can have Kerns D/C'ed and go back to I and O catheterization QID. If she goes to LTC today, please discharge with kerns catheter in place. Will check with biomedical specialist to ensure patient has follow up with Dr. Coreas. JOSE COREAS MD 04/30/18 1540: UROLOGY CONSULT Assessment/Plan Assessment/Plan Chronic UR. May increase risk of uti. Poorly compliant with SIC. Recommend SPT with IR or chronic kerns. 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 CAROL MORENO APRN Apr 30, 2018 13:27 JOSE COREAS MD Apr 30, 2018 15:40
[2018-04-30 15:00] VITALS: BP 92/61
[2018-04-30] MEDS: cefTRIAXone IV Push 1 GM VIAL. IVP SCH (17:51)
[2018-04-30 19:00] VITALS: BP 91/60
[2018-04-30] MEDS: ALPRAZolam 1 MG TABLET PO PRN (22:05)
[2018-04-30 23:00] VITALS: BP 103/66
[2018-05-01 03:00] VITALS: BP 97/65
[2018-05-01] MEDS: oxyCODONE/APAP 7.5/325 1 TAB TABLET PO PRN ×2 (05:22→12:23)
[2018-05-01 06:03] LABS: BASO # 0.1 x10^3/uL (0.0-0.2); BASO % 1 % (0-3); EOS # 0.2 x10^3/uL (0.0-0.7); EOS % 4 % (0-3); HEMOGLOBIN 8.9 g/dL (12.0-15.5); LYMPH # 1.6 x10^3/uL (1.0-4.8); LYMPH % 27 % (24-48); MEAN CORPUSCULAR HEMOGLOBIN 29 pg (25-35); MEAN CORPUSCULAR HGB CONC 33 g/dL (31-37); MEAN CORPUSCULAR VOLUME 88 fL (79-100); MONO # 0.7 x10^3/uL (0.0-1.1); MONO % 12 % (0-9); NEUT # 3.3 x10^3uL (1.8-7.7); NEUT % 55 % (31-73); PLATELET COUNT 310 x10^3/uL (140-400); RED BLOOD COUNT 3.09 x10^6/uL (3.50-5.40); RED CELL DISTRIBUTION WIDTH 18.6 % (11.5-14.5)
[2018-05-01 06:17] LABS: CALCIUM 8.3 mg/dL (8.5-10.1); CREATININE 2.5 mg/dL (0.6-1.0); GFR 19.6; POTASSIUM 4.1 mmol/L (3.5-5.1)
[2018-05-01 07:00] VITALS: BP 102/66
[2018-05-01] MEDS: PANTOPRAZOLE 40 MG TABLET.DR. PO SCH (09:37)
[2018-05-01] MEDS: LACTOBACILLUS RHAMNOSUS GG 1 CAPSULE. PO SCH (09:37)
[2018-05-01] MEDS: DULoxetine HCL 30 MG CAPSULE.DR PO SCH (09:37)
[2018-05-01] MEDS: amLODIPine BESYLATE 10 MG TABLET PO SCH (09:37)
[2018-05-01] MEDS: ALPRAZolam 1 MG TABLET PO PRN (09:40)
--- NOTE | 2018-05-01 10:23 | PDOC ---
PROGRESS NOTES History of Present Illness History of Present Illness ASSESSMENT AND PLAN: urosepsis metabolic encephalopathy. with IMPROVEMENT admitted. IV antibiotics, IV fluids. home medicines, frequent labs. Urine culture. Full code. PT, OT. d/c today to nitro Vitals Vitals Vital Signs Date Time Temp Pulse Resp B/P (MAP) Pulse Ox O2 Delivery O2 Flow Rate FiO2 05/01/18 09:37 84 102/66 05/01/18 08:00 Room Air 05/01/18 07:00 98.2 16 93 98.2 Physical Exam Physical Exam GENERAL: She is awake, very confused, eating dinner HEART: Distant S1, S2. LUNGS: Clear. ABDOMEN: Soft, slightly tender. EXTREMITIES: Trace edema. SKIN: No rashes. ENDOCRINE: No thyromegaly. LYMPHATICS: No cervical nodes. HEMATOPOIETIC: No bruising. General: Alert, Oriented X3, Cooperative, No acute distress, mild distress Heart: Regular rate, Normal S1, Normal S2 Lungs: Clear Abdomen: Normal bowel sounds, Soft, No hepatosplenomegaly Extremities: No cyanosis Labs LABS Laboratory Tests Test 05/01/18 05:25 05/01/18 05:35 White Blood Count 6.0 x10^3/uL (4.0-11.0) Red Blood Count 3.09 x10^6/uL (3.50-5.40) Hemoglobin 8.9 g/dL (12.0-15.5) Hematocrit 27.0 % (36.0-47.0) Mean Corpuscular Volume 88 fL (79-100) Mean Corpuscular Hemoglobin 29 pg (25-35) Mean Corpuscular Hemoglobin Concent 33 g/dL (31-37) Red Cell Distribution Width 18.6 % (11.5-14.5) Platelet Count 310 x10^3/uL (140-400) Neutrophils (%) (Auto) 55 % (31-73) Lymphocytes (%) (Auto) 27 % (24-48) Monocytes (%) (Auto) 12 % (0-9) Eosinophils (%) (Auto) 4 % (0-3) Basophils (%) (Auto) 1 % (0-3) Neutrophils # (Auto) 3.3 x10^3uL (1.8-7.7) Lymphocytes # (Auto) 1.6 x10^3/uL (1.0-4.8) Monocytes # (Auto) 0.7 x10^3/uL (0.0-1.1) Eosinophils # (Auto) 0.2 x10^3/uL (0.0-0.7) Basophils # (Auto) 0.1 x10^3/uL (0.0-0.2) Sodium Level 144 mmol/L (136-145) Potassium Level 4.1 mmol/L (3.5-5.1) Chloride Level 111 mmol/L (98-107) Carbon Dioxide Level 22 mmol/L (21-32) Anion Gap 11 (6-14) Blood Urea Nitrogen 27 mg/dL (7-20) Creatinine 2.5 mg/dL (0.6-1.0) Estimated GFR (Cockcroft-Gault) 19.6 Glucose Level 91 mg/dL (70-99) Calcium Level 8.3 mg/dL (8.5-10.1) Comment Review of Relevant I have reviewed the following items blade (where applicable) has been applied. Labs Laboratory Tests Test 04/30/18 09:55 05/01/18 05:25 05/01/18 05:35 White Blood Count 7.3 x10^3/uL (4.0-11.0) 6.0 x10^3/uL (4.0-11.0) Red Blood Count 3.10 x10^6/uL (3.50-5.40) 3.09 x10^6/uL (3.50-5.40) Hemoglobin 9.0 g/dL (12.0-15.5) 8.9 g/dL (12.0-15.5) Hematocrit 27.6 % (36.0-47.0) 27.0 % (36.0-47.0) Mean Corpuscular Volume 89 fL (79-100) 88 fL (79-100) Mean Corpuscular Hemoglobin 29 pg (25-35) 29 pg (25-35) Mean Corpuscular Hemoglobin Concent 33 g/dL (31-37) 33 g/dL (31-37) Red Cell Distribution Width 18.5 % (11.5-14.5) 18.6 % (11.5-14.5) Platelet Count 255 x10^3/uL (140-400) 310 x10^3/uL (140-400) Neutrophils (%) (Auto) 70 % (31-73) 55 % (31-73) Lymphocytes (%) (Auto) 15 % (24-48) 27 % (24-48) Monocytes (%) (Auto) 12 % (0-9) 12 % (0-9) Eosinophils (%) (Auto) 3 % (0-3) 4 % (0-3) Basophils (%) (Auto) 1 % (0-3) 1 % (0-3) Neutrophils # (Auto) 5.1 x10^3uL (1.8-7.7) 3.3 x10^3uL (1.8-7.7) Lymphocytes # (Auto) 1.1 x10^3/uL (1.0-4.8) 1.6 x10^3/uL (1.0-4.8) Monocytes # (Auto) 0.9 x10^3/uL (0.0-1.1) 0.7 x10^3/uL (0.0-1.1) Eosinophils # (Auto) 0.2 x10^3/uL (0.0-0.7) 0.2 x10^3/uL (0.0-0.7) Basophils # (Auto) 0.0 x10^3/uL (0.0-0.2) 0.1 x10^3/uL (0.0-0.2) Sodium Level 141 mmol/L (136-145) 144 mmol/L (136-145) Potassium Level 3.9 mmol/L (3.5-5.1) 4.1 mmol/L (3.5-5.1) Chloride Level 109 mmol/L (98-107) 111 mmol/L (98-107) Carbon Dioxide Level 21 mmol/L (21-32) 22 mmol/L (21-32) Anion Gap 11 (6-14) 11 (6-14) Blood Urea Nitrogen 23 mg/dL (7-20) 27 mg/dL (7-20) Creatinine 2.6 mg/dL (0.6-1.0) 2.5 mg/dL (0.6-1.0) Estimated GFR (Cockcroft-Gault) 18.7 19.6 BUN/Creatinine Ratio 9 (6-20) Glucose Level 88 mg/dL (70-99) 91 mg/dL (70-99) Calcium Level 8.3 mg/dL (8.5-10.1) 8.3 mg/dL (8.5-10.1) Total Bilirubin 0.1 mg/dL (0.2-1.0) Aspartate Amino Transf (AST/SGOT) 10 U/L (15-37) Alanine Aminotransferase (ALT/SGPT) 10 U/L (14-59) Alkaline Phosphatase 72 U/L (46-116) Total Protein 6.0 g/dL (6.4-8.2) Albumin 1.9 g/dL (3.4-5.0) Albumin/Globulin Ratio 0.5 (1.0-1.7) Laboratory Tests Test 05/01/18 05:25 05/01/18 05:35 White Blood Count 6.0 x10^3/uL (4.0-11.0) Red Blood Count 3.09 x10^6/uL (3.50-5.40) Hemoglobin 8.9 g/dL (12.0-15.5) Hematocrit 27.0 % (36.0-47.0) Mean Corpuscular Volume 88 fL (79-100) Mean Corpuscular Hemoglobin 29 pg (25-35) Mean Corpuscular Hemoglobin Concent 33 g/dL (31-37) Red Cell Distribution Width 18.6 % (11.5-14.5) Platelet Count 310 x10^3/uL (140-400) Neutrophils (%) (Auto) 55 % (31-73) Lymphocytes (%) (Auto) 27 % (24-48) Monocytes (%) (Auto) 12 % (0-9) Eosinophils (%) (Auto) 4 % (0-3) Basophils (%) (Auto) 1 % (0-3) Neutrophils # (Auto) 3.3 x10^3uL (1.8-7.7) Lymphocytes # (Auto) 1.6 x10^3/uL (1.0-4.8) Monocytes # (Auto) 0.7 x10^3/uL (0.0-1.1) Eosinophils # (Auto) 0.2 x10^3/uL (0.0-0.7) Basophils # (Auto) 0.1 x10^3/uL (0.0-0.2) Sodium Level 144 mmol/L (136-145) Potassium Level 4.1 mmol/L (3.5-5.1) Chloride Level 111 mmol/L (98-107) Carbon Dioxide Level 22 mmol/L (21-32) Anion Gap 11 (6-14) Blood Urea Nitrogen 27 mg/dL (7-20) Creatinine 2.5 mg/dL (0.6-1.0) Estimated GFR (Cockcroft-Gault) 19.6 Glucose Level 91 mg/dL (70-99) Calcium Level 8.3 mg/dL (8.5-10.1) Microbiology 04/28/18 Blood Culture - Preliminary, Resulted NO GROWTH AFTER 2 DAYS 04/28/18 Urine Culture - Preliminary, Resulted 04/28/18 Urine Culture Result 1 (DARCIE) - Preliminary, Resulted Medications Current Medications Sodium Chloride 1,000 ml @ 1,000 mls/hr 1X ONCE IV Last administered on 04/28at 15:58; Start 04/28/18 at 15:15; Stop 04/28/18 at 16:14; Status DC Ondansetron HCl (Zofran) 4 mg PRN Q8HRS PRN IV NAUSEA/VOMITING Last administered on 04/28/18at 17:52; Start 04/28/18 at 17:15; Stop 04/29/18 at 17 :14; Status DC Fentanyl Citrate (Fentanyl 2ml Vial) 50 mcg PRN Q2HR PRN IV PAIN; Start at 17:15; Stop 04/29/18 at 17:14; Status DC Sodium Chloride 1,000 ml @ 125 mls/hr Q8H IV Last administered on 04/29/18at 14:21; Start 04/28/18 at 17:15; Stop 04/29/18 at 17:14; Status DC Fentanyl Citrate (Fentanyl 2ml Vial) 50 mcg 1X ONCE IV Last administered on at 17:53; Start 04/28/18 at 17:15; Stop 04/28/18 at 17:20; Status DC Ceftriaxone Sodium 1 gm/ Dextrose 50 ml @ 100 mls/hr Q24H IV ; Start 04/29/18 at 17:00; Status UNV Ceftriaxone Sodium 50 ml @ 100 mls/hr 1X ONCE IV Last administered on at 17:53; Start 04/28/18 at 17:30; Stop 04/28/18 at 17:59; Status DC Ceftriaxone Sodium (Rocephin) 1 gm Q24H IVP Last administered on 04/30/18at 17: 51; Start 04/29/18 at 18:00 Alprazolam (Xanax) 1 mg PRN TID PRN PO ANXIETY / AGITATION Last administered on 05/01/18at 09:40; Start 04/28/18 at 20:45 Amlodipine Besylate (Norvasc) 10 mg DAILY PO Last administered on 05/01/18at 09: 37; Start 04/29/18 at 09:00 Duloxetine HCl (Cymbalta) 90 mg DAILY PO Last administered on 05/01/18at 09:37; Start 04/29/18 at 09:00 Oxycodone/ Acetaminophen (Percocet 7.5/ 325) 1 tab QID PO ; Start 04/28/18 at 21:00; Stop 04/28/18 at 21:00; Status DC Pantoprazole Sodium (Protonix) 40 mg DAILYAC PO Last administered on 05/01/18at 09:37; Start 04/29/18 at 07:30 Non-Formulary Medication (Nitrofurantoin Monohyd/M-Cryst (Macrobid 100 Mg Capsule)) 1 cap BID PO ; Start 04/28/18 at 21:00; Status UNV Oxycodone/ Acetaminophen (Percocet 7.5/ 325) 1 tab PRN QID PRN PO PAIN Last administered on 05/01/18at 05:22; Start 04/28/18 at 21:00 Lactobacillus Rhamnosus (Culturelle) 1 cap BID PO Last administered on at 09:37; Start 04/29/18 at 21:00 Active Scripts Active Zofran Odt (Ondansetron) 4 Mg Tab.rapdis 1 Tab SL Q8HRS PRN Macrobid 100 Mg Capsule (Nitrofurantoin Monohyd/M-Cryst) 100 Mg Capsule 1 Cap PO BID Zofran Odt (Ondansetron) 4 Mg Tab.rapdis 1 Tab SL Q8HRS Percocet 7.5-325 Mg Tablet (Oxycodone/Acetaminophen) 1 Each Tablet 1 Tab PO QID Cymbalta (Duloxetine Hcl) 30 Mg Capsule. 90 Mg PO DAILY 30 Days Oxycodone Hcl 10 Mg Tablet 1 Tab PO PRN Q6HRS PRN 30 Days Alprazolam 0.5 Mg Tablet 1 Tab PO TID 30 Days Reported Amlodipine Besylate 10 Mg Tablet 10 Mg PO DAILY Alprazolam 1 Mg Tablet 1 Mg PO PRN TID PRN Nexium Capsule (Esomeprazole Magnesium) 40 Mg Capsule.dr 1 Cap PO DAILY Vitals/I & O Vital Sign - Last 24 Hours 04/30/18 04/30/18 04/30/18 04/30/18 10:30 11:00 15:00 17:59 Temp 97.6 97.6 97.6 97.6 Pulse 79 83 Resp 19 18 20 20 B/P (MAP) 93/62 (72) 92/61 (71) Pulse Ox 94 91 94 93 O2 Delivery Room Air Room Air Room Air 04/30/18 04/30/18 04/30/18 05/01/18 19:00 20:00 23:00 03:00 Temp 97.7 97.7 98.2 97.7 97.7 98.2 Pulse 88 82 86 Resp 20 20 20 B/P (MAP) 91/60 (70) 103/66 (78) 97/65 (76) Pulse Ox 93 95 92 O2 Delivery Room Air Room Air Room Air Room Air 05/01/18 05/01/18 05/01/18 05/01/18 05:22 06:25 07:00 08:00 Temp 98.2 98.2 Pulse 84 Resp 16 B/P (MAP) 102/66 (78) Pulse Ox 93 O2 Delivery Room Air Room Air Room Air Room Air 05/01/18 09:37 Pulse 84 B/P (MAP) 102/66 Intake and Output 04/30/18 04/30/18 05/01/18 15:00 23:00 07:00 Intake Total 600 ml 660 ml 560 ml Output Total 1325 ml 600 ml Balance 600 ml -665 ml -40 ml WEI COLLINS MD May 01, 2018 10:23
--- NOTE | 2018-05-01 10:52 | PDOC ---
SUBJECTIVE ROS Stable OBJECTIVE Vital Signs Vital Signs Date Time Temp Pulse Resp B/P (MAP) Pulse Ox O2 Delivery O2 Flow Rate FiO2 05/01/18 09:37 84 102/66 05/01/18 08:00 Room Air 05/01/18 07:00 98.2 16 93 98.2 I & 0 Intake and Output 05/01/18 07:00 Intake Total 1820 ml Output Total 1925 ml Balance -105 ml Intake Oral 1820 ml Output Urine Total 1925 ml PHYSICAL EXAM Physical Exam General: NAD HEENT: OM moist neck Supple Lungs: Clear to auscultation Bilat, Non labored Heart - RRR, ANJELICA+ no gallops Abdomen: Normal bowel sounds, Soft Extremities: No edema Skin: No rashes Neuro: Grossly Normal Skin No rash - Drummond + today , No CVA or SP tenderness DIAGNOSIS/ASSESSMENT Assessment & Plan CKD stage 4 - Hx of LUGO(neurogenic bladder) possible reflux nephropathy Multiple Hospitalizations with [facility] Self caths at home x4 , non compliant SP catheter was removed by Urology due to UTI's in past Current FLuid and electrolyte status does not necessitate emergent need for Dialysis Urology Consulted Anemia - Hgb stable HTN- BP Low , Hold BP meds ? UTI- as per primary COMMENT/RELEVANT DATA Meds Current Medications Medications (Trade) Dose Ordered Sig/Taz Start Time Stop Time Status Last Admin Dose Admin Alprazolam (Xanax) 1 mg PRN TID PRN 04/28/18 20:45 05/01/18 09:40 1 MG Amlodipine Besylate (Norvasc) 10 mg DAILY 04/29/18 09:00 05/01/18 09:37 10 MG Ceftriaxone Sodium 1 gm/ Dextrose 50 ml @ 100 mls/hr Q24H 04/29/18 17:00 UNV Ceftriaxone Sodium (Rocephin) 1 gm Q24H 04/29/18 18:00 04/30/18 17:51 1 GM Duloxetine HCl (Cymbalta) 90 mg DAILY 04/29/18 09:00 05/01/18 09:37 90 MG Fentanyl Citrate (Fentanyl 2ml Vial) 50 mcg 1X ONCE 04/28/18 17:15 04/28/18 17:20 DC 04/28/18 17:53 50 MCG Lactobacillus Rhamnosus (Culturelle) 1 cap BID 04/29/18 21:00 05/01/18 09:37 1 CAP Non-Formulary Medication (Nitrofurantoin Monohyd/M-Cryst (Macrobid 100 Mg Capsule)) 1 cap BID 04/28/18 21:00 UNV Ondansetron HCl (Zofran) 4 mg PRN Q8HRS PRN 04/28/18 17:15 04/29/18 17:14 DC 04/28/18 17:52 4 MG Oxycodone/ Acetaminophen (Percocet 7.5/ 325) 1 tab PRN QID PRN 04/28/18 21:00 05/01/18 05:22 1 TAB Pantoprazole Sodium (Protonix) 40 mg DAILYAC 04/29/18 07:30 05/01/18 09:37 40 MG Sodium Chloride 1,000 ml @ 125 mls/hr Q8H 04/28/18 17:15 04/29/18 17:14 DC 04/29/18 14:21 125 MLS/HR Lab Laboratory Tests Test 05/01/18 05:25 05/01/18 05:35 White Blood Count 6.0 x10^3/uL (4.0-11.0) Red Blood Count 3.09 x10^6/uL (3.50-5.40) Hemoglobin 8.9 g/dL (12.0-15.5) Hematocrit 27.0 % (36.0-47.0) Mean Corpuscular Volume 88 fL (79-100) Mean Corpuscular Hemoglobin 29 pg (25-35) Mean Corpuscular Hemoglobin Concent 33 g/dL (31-37) Red Cell Distribution Width 18.6 % (11.5-14.5) Platelet Count 310 x10^3/uL (140-400) Neutrophils (%) (Auto) 55 % (31-73) Lymphocytes (%) (Auto) 27 % (24-48) Monocytes (%) (Auto) 12 % (0-9) Eosinophils (%) (Auto) 4 % (0-3) Basophils (%) (Auto) 1 % (0-3) Neutrophils # (Auto) 3.3 x10^3uL (1.8-7.7) Lymphocytes # (Auto) 1.6 x10^3/uL (1.0-4.8) Monocytes # (Auto) 0.7 x10^3/uL (0.0-1.1) Eosinophils # (Auto) 0.2 x10^3/uL (0.0-0.7) Basophils # (Auto) 0.1 x10^3/uL (0.0-0.2) Sodium Level 144 mmol/L (136-145) Potassium Level 4.1 mmol/L (3.5-5.1) Chloride Level 111 mmol/L (98-107) Carbon Dioxide Level 22 mmol/L (21-32) Anion Gap 11 (6-14) Blood Urea Nitrogen 27 mg/dL (7-20) Creatinine 2.5 mg/dL (0.6-1.0) Estimated GFR (Cockcroft-Gault) 19.6 Glucose Level 91 mg/dL (70-99) Calcium Level 8.3 mg/dL (8.5-10.1) Results All relevant outside records, renal labs, imaging studies, telemetry/EKG's were reviewed. ALDAIR KRAFT MD May 01, 2018 10:52
[2018-05-01 11:00] VITALS: BP 113/74
--- NOTE | 2018-05-01 14:37 | PDOC ---
SUBJECTIVE Subjective Pt resting comfortably, catheter working well. Not bothering her OBJECTIVE Objective Physical Exam: General appearance: Alert and Oriented Head: Normocephalic, without obvious abnormality Eyes: conjunctivae/corneas clear. PERRL, EOM's intact. Fundi benign Lungs: Regular respirations, non labored breathing. Abdomen: soft, non-tender. Bowel sounds normal. No masses, no organomegaly Pelvic: kerns in place draining clear yellow urine. Device in good working order Vital Signs Vital Signs Date Time Temp Pulse Resp B/P (MAP) Pulse Ox O2 Delivery O2 Flow Rate FiO2 05/01/18 12:23 Room Air 05/01/18 11:00 97.5 78 18 113/74 (87) 97 Room Air 97.5 05/01/18 09:37 84 102/66 05/01/18 08:00 Room Air 05/01/18 07:00 98.2 84 16 102/66 (78) 93 Room Air 98.2 05/01/18 06:25 Room Air 05/01/18 05:22 Room Air 05/01/18 03:00 98.2 86 20 97/65 (76) 92 Room Air 98.2 04/30/18 23:00 97.7 82 20 103/66 (78) 95 Room Air 97.7 04/30/18 20:00 Room Air 04/30/18 19:00 97.7 88 20 91/60 (70) 93 Room Air 97.7 04/30/18 17:59 20 93 Room Air 04/30/18 15:00 97.6 83 20 92/61 (71) 94 Room Air 97.6 I & O Intake and Output 05/01/18 07:00 Intake Total 1820 ml Output Total 1925 ml Balance -105 ml Intake Oral 1820 ml Output Urine Total 1925 ml PHYSICAL EXAM Physical Exam Physical Exam: General appearance: Alert and Oriented Head: Normocephalic, without obvious abnormality Eyes: conjunctivae/corneas clear. PERRL, EOM's intact. Fundi benign Lungs: Regular respirations, non labored breathing. Abdomen: soft, non-tender. Bowel sounds normal. No masses, no organomegaly Pelvic: kerns in place draining clear yellow urine. Device in good working order ASSESSMENT/PLAN Assessment/Plan Patient has chronic Urinary Retention. She will need some kind of assistance with bladder emptying. Given her non complaince with [facility] in the past, Dr. Coreas does recommend indwelling kerns catheter. She has tried an SP tube and this caused her too much pain, discomfort so she does not want to do this. Discussed with patient and she is open to trying indwelling kerns for a while. Could go to LTC/discharge from a Urology perspective, as long as she discharges with kerns in place. Patient understands this will need to be changed every 30 days which LTC staff should be able to do. . Will sign off at this time but please call with questions or changes in patient condition. COMMENT Lab Laboratory Tests Test 05/01/18 05:25 05/01/18 05:35 White Blood Count 6.0 x10^3/uL (4.0-11.0) Red Blood Count 3.09 x10^6/uL (3.50-5.40) Hemoglobin 8.9 g/dL (12.0-15.5) Hematocrit 27.0 % (36.0-47.0) Mean Corpuscular Volume 88 fL (79-100) Mean Corpuscular Hemoglobin 29 pg (25-35) Mean Corpuscular Hemoglobin Concent 33 g/dL (31-37) Red Cell Distribution Width 18.6 % (11.5-14.5) Platelet Count 310 x10^3/uL (140-400) Neutrophils (%) (Auto) 55 % (31-73) Lymphocytes (%) (Auto) 27 % (24-48) Monocytes (%) (Auto) 12 % (0-9) Eosinophils (%) (Auto) 4 % (0-3) Basophils (%) (Auto) 1 % (0-3) Neutrophils # (Auto) 3.3 x10^3uL (1.8-7.7) Lymphocytes # (Auto) 1.6 x10^3/uL (1.0-4.8) Monocytes # (Auto) 0.7 x10^3/uL (0.0-1.1) Eosinophils # (Auto) 0.2 x10^3/uL (0.0-0.7) Basophils # (Auto) 0.1 x10^3/uL (0.0-0.2) Sodium Level 144 mmol/L (136-145) Potassium Level 4.1 mmol/L (3.5-5.1) Chloride Level 111 mmol/L (98-107) Carbon Dioxide Level 22 mmol/L (21-32) Anion Gap 11 (6-14) Blood Urea Nitrogen 27 mg/dL (7-20) Creatinine 2.5 mg/dL (0.6-1.0) Estimated GFR (Cockcroft-Gault) 19.6 Glucose Level 91 mg/dL (70-99) Calcium Level 8.3 mg/dL (8.5-10.1) CAROL MORENO APRN May 01, 2018 14:37
[2018-05-01 15:00] VITALS: BP 99/65
--- NOTE | 2018-05-01 15:15 | PDOC ---
Infectious Disease Note Subjective Subjective c/o mild lower-back pain, requesting change in pain meds No F/C/S/aches/N/V/D ROS ROS per HPI otherwise neg Vital Sign Vital Signs Vital Signs Date Time Temp Pulse Resp B/P (MAP) Pulse Ox O2 Delivery O2 Flow Rate FiO2 05/01/18 14:39 Room Air 05/01/18 11:00 97.5 78 18 113/74 (87) 97 97.5 Physical Exam PHYSICAL EXAM GENERAL: Resting quietly, HENT: Oral cavity clear LUNGS: Clear HEART: S1, S2. ABDOMEN: Obese, soft, NT EXTREMITIES: Trace edema. No cyanosis SKIN: No rashes. SIGNING AGENT: Arouses easily to name, responds appropriately Labs Lab Laboratory Tests Test 05/01/18 05:25 05/01/18 05:35 White Blood Count 6.0 x10^3/uL (4.0-11.0) Red Blood Count 3.09 x10^6/uL (3.50-5.40) Hemoglobin 8.9 g/dL (12.0-15.5) Hematocrit 27.0 % (36.0-47.0) Mean Corpuscular Volume 88 fL (79-100) Mean Corpuscular Hemoglobin 29 pg (25-35) Mean Corpuscular Hemoglobin Concent 33 g/dL (31-37) Red Cell Distribution Width 18.6 % (11.5-14.5) Platelet Count 310 x10^3/uL (140-400) Neutrophils (%) (Auto) 55 % (31-73) Lymphocytes (%) (Auto) 27 % (24-48) Monocytes (%) (Auto) 12 % (0-9) Eosinophils (%) (Auto) 4 % (0-3) Basophils (%) (Auto) 1 % (0-3) Neutrophils # (Auto) 3.3 x10^3uL (1.8-7.7) Lymphocytes # (Auto) 1.6 x10^3/uL (1.0-4.8) Monocytes # (Auto) 0.7 x10^3/uL (0.0-1.1) Eosinophils # (Auto) 0.2 x10^3/uL (0.0-0.7) Basophils # (Auto) 0.1 x10^3/uL (0.0-0.2) Sodium Level 144 mmol/L (136-145) Potassium Level 4.1 mmol/L (3.5-5.1) Chloride Level 111 mmol/L (98-107) Carbon Dioxide Level 22 mmol/L (21-32) Anion Gap 11 (6-14) Blood Urea Nitrogen 27 mg/dL (7-20) Creatinine 2.5 mg/dL (0.6-1.0) Estimated GFR (Cockcroft-Gault) 19.6 Glucose Level 91 mg/dL (70-99) Calcium Level 8.3 mg/dL (8.5-10.1) Micro URINE CULTURE RES 1 Preliminary Escherichia coli BLOOD CULTURE Preliminary NO GROWTH AFTER 2 DAYS Objective Assessment Encephalopathy, likely metabolic, multifactorial - better Urinary tract infection, E. coli - had been on Bactrim prior to admit Sepsis - improved Leukocytosis, resolved History of Clostridium difficile. Chronic kidney disease. Chronic urinary retention, Drummond Plan Plan of Care Ceftriaxone f/u cultures Supportive care Pain management per primary Attending Co-Sign Attending Co-Sign The patient was seen and interviewed as well as examined at the bedside. The chart was reviewed. The case was discussed. Agree with the plan of care. JOSH TSAI APRN May 01, 2018 15:15 GILBERTO SEQUEIRA MD May 01, 2018 15:55
--- NOTE | 2018-05-01 16:02 | PDOC3 ---
Discharge Summary Date of Admission: Apr 28, 2018 Date of Discharge: May 01, 2018 Follow-Up: 1-2 days Admitting Diagnosis comment: discharge diagnosis- History of Present Illness ASSESSMENT AND PLAN: sepsis urosepsis metabolic encephalopathy. with IMPROVEMENT admitted. IV antibiotics, IV fluids. home medicines, frequent labs. Urine culture. Full code. PT, OT. d/c today to [facility] Vitals Vitals Vital Signs Date Time Temp Pulse Resp B/P (MAP) Pulse Ox O2 Delivery O2 Flow Rate FiO2 05/01/18 09:37 84 102/66 05/01/18 08:00 Room Air 05/01/18 07:00 98.2 16 93 98.2 Physical Exam Physical Exam GENERAL: She is awake, not confused, HEART: Distant S1, S2. LUNGS: Clear. ABDOMEN: Soft, nontender EXTREMITIES: Trace edema. SKIN: No rashes. ENDOCRINE: No thyromegaly. LYMPHATICS: No cervical nodes. HEMATOPOIETIC: No bruising. General: Alert, Oriented X3, Cooperative, No acute distress, Heart: Regular rate, Normal S1, Normal S2 Lungs: Clear Abdomen: Normal bowel sounds, Soft, No hepatosplenomegaly Extremities: No cyanosis Brief Hospital Course Ms. Rodriguez is a 62 old [sex] who presented with [uti/ sepsis ] CONDITION AT DISCHARGE: Improved Discharge Medications Current Medications Sodium Chloride 1,000 ml @ 1,000 mls/hr 1X ONCE IV Last administered on 04/28at 15:58; Start 04/28/18 at 15:15; Stop 04/28/18 at 16:14; Status DC Ondansetron HCl (Zofran) 4 mg PRN Q8HRS PRN IV NAUSEA/VOMITING Last administered on 04/28/18at 17:52; Start 04/28/18 at 17:15; Stop 04/29/18 at 17 :14; Status DC Fentanyl Citrate (Fentanyl 2ml Vial) 50 mcg PRN Q2HR PRN IV PAIN; Start at 17:15; Stop 04/29/18 at 17:14; Status DC Sodium Chloride 1,000 ml @ 125 mls/hr Q8H IV Last administered on 04/29/18at 14:21; Start 04/28/18 at 17:15; Stop 04/29/18 at 17:14; Status DC Fentanyl Citrate (Fentanyl 2ml Vial) 50 mcg 1X ONCE IV Last administered on at 17:53; Start 04/28/18 at 17:15; Stop 04/28/18 at 17:20; Status DC Ceftriaxone Sodium 1 gm/ Dextrose 50 ml @ 100 mls/hr Q24H IV ; Start 04/29/18 at 17:00; Status UNV Ceftriaxone Sodium 50 ml @ 100 mls/hr 1X ONCE IV Last administered on at 17:53; Start 04/28/18 at 17:30; Stop 04/28/18 at 17:59; Status DC Ceftriaxone Sodium (Rocephin) 1 gm Q24H IVP Last administered on 04/30/18at 17: 51; Start 04/29/18 at 18:00 Alprazolam (Xanax) 1 mg PRN TID PRN PO ANXIETY / AGITATION Last administered on 05/01/18at 09:40; Start 04/28/18 at 20:45 Amlodipine Besylate (Norvasc) 10 mg DAILY PO Last administered on 05/01/18at 09: 37; Start 04/29/18 at 09:00 Duloxetine HCl (Cymbalta) 90 mg DAILY PO Last administered on 05/01/18at 09:37; Start 04/29/18 at 09:00 Oxycodone/ Acetaminophen (Percocet 7.5/ 325) 1 tab QID PO ; Start 04/28/18 at 21:00; Stop 04/28/18 at 21:00; Status DC Pantoprazole Sodium (Protonix) 40 mg DAILYAC PO Last administered on 05/01/18at 09:37; Start 04/29/18 at 07:30 Non-Formulary Medication (Nitrofurantoin Monohyd/M-Cryst (Macrobid 100 Mg Capsule)) 1 cap BID PO ; Start 04/28/18 at 21:00; Status UNV Oxycodone/ Acetaminophen (Percocet 7.5/ 325) 1 tab PRN QID PRN PO PAIN Last administered on 05/01/18at 12:23; Start 04/28/18 at 21:00 Lactobacillus Rhamnosus (Culturelle) 1 cap BID PO Last administered on at 09:37; Start 04/29/18 at 21:00 Active Scripts Active Zofran Odt (Ondansetron) 4 Mg Tab.rapdis 1 Tab SL Q8HRS PRN Macrobid 100 Mg Capsule (Nitrofurantoin Monohyd/M-Cryst) 100 Mg Capsule 1 Cap PO BID Zofran Odt (Ondansetron) 4 Mg Tab.rapdis 1 Tab SL Q8HRS Percocet 7.5-325 Mg Tablet (Oxycodone/Acetaminophen) 1 Each Tablet 1 Tab PO QID Cymbalta (Duloxetine Hcl) 30 Mg Capsule.dr 90 Mg PO DAILY 30 Days Oxycodone Hcl 10 Mg Tablet 1 Tab PO PRN Q6HRS PRN 30 Days Alprazolam 0.5 Mg Tablet 1 Tab PO TID 30 Days Reported Amlodipine Besylate 10 Mg Tablet 10 Mg PO DAILY Alprazolam 1 Mg Tablet 1 Mg PO PRN TID PRN Nexium Capsule (Esomeprazole Magnesium) 40 Mg Capsule.dr 1 Cap PO DAILY Vital Signs Vital Signs Date Time Temp Pulse Resp B/P (MAP) Pulse Ox O2 Delivery O2 Flow Rate FiO2 05/01/18 14:39 Room Air 05/01/18 11:00 97.5 78 18 113/74 (87) 97 97.5 Labs Laboratory Tests Test 04/30/18 09:55 05/01/18 05:25 05/01/18 05:35 White Blood Count 7.3 x10^3/uL (4.0-11.0) 6.0 x10^3/uL (4.0-11.0) Red Blood Count 3.10 x10^6/uL (3.50-5.40) 3.09 x10^6/uL (3.50-5.40) Hemoglobin 9.0 g/dL (12.0-15.5) 8.9 g/dL (12.0-15.5) Hematocrit 27.6 % (36.0-47.0) 27.0 % (36.0-47.0) Mean Corpuscular Volume 89 fL (79-100) 88 fL (79-100) Mean Corpuscular Hemoglobin 29 pg (25-35) 29 pg (25-35) Mean Corpuscular Hemoglobin Concent 33 g/dL (31-37) 33 g/dL (31-37) Red Cell Distribution Width 18.5 % (11.5-14.5) 18.6 % (11.5-14.5) Platelet Count 255 x10^3/uL (140-400) 310 x10^3/uL (140-400) Neutrophils (%) (Auto) 70 % (31-73) 55 % (31-73) Lymphocytes (%) (Auto) 15 % (24-48) 27 % (24-48) Monocytes (%) (Auto) 12 % (0-9) 12 % (0-9) Eosinophils (%) (Auto) 3 % (0-3) 4 % (0-3) Basophils (%) (Auto) 1 % (0-3) 1 % (0-3) Neutrophils # (Auto) 5.1 x10^3uL (1.8-7.7) 3.3 x10^3uL (1.8-7.7) Lymphocytes # (Auto) 1.1 x10^3/uL (1.0-4.8) 1.6 x10^3/uL (1.0-4.8) Monocytes # (Auto) 0.9 x10^3/uL (0.0-1.1) 0.7 x10^3/uL (0.0-1.1) Eosinophils # (Auto) 0.2 x10^3/uL (0.0-0.7) 0.2 x10^3/uL (0.0-0.7) Basophils # (Auto) 0.0 x10^3/uL (0.0-0.2) 0.1 x10^3/uL (0.0-0.2) Sodium Level 141 mmol/L (136-145) 144 mmol/L (136-145) Potassium Level 3.9 mmol/L (3.5-5.1) 4.1 mmol/L (3.5-5.1) Chloride Level 109 mmol/L (98-107) 111 mmol/L (98-107) Carbon Dioxide Level 21 mmol/L (21-32) 22 mmol/L (21-32) Anion Gap 11 (6-14) 11 (6-14) Blood Urea Nitrogen 23 mg/dL (7-20) 27 mg/dL (7-20) Creatinine 2.6 mg/dL (0.6-1.0) 2.5 mg/dL (0.6-1.0) Estimated GFR (Cockcroft-Gault) 18.7 19.6 BUN/Creatinine Ratio 9 (6-20) Glucose Level 88 mg/dL (70-99) 91 mg/dL (70-99) Calcium Level 8.3 mg/dL (8.5-10.1) 8.3 mg/dL (8.5-10.1) Total Bilirubin 0.1 mg/dL (0.2-1.0) Aspartate Amino Transf (AST/SGOT) 10 U/L (15-37) Alanine Aminotransferase (ALT/SGPT) 10 U/L (14-59) Alkaline Phosphatase 72 U/L (46-116) Total Protein 6.0 g/dL (6.4-8.2) Albumin 1.9 g/dL (3.4-5.0) Albumin/Globulin Ratio 0.5 (1.0-1.7) Laboratory Tests Test 05/01/18 05:25 05/01/18 05:35 White Blood Count 6.0 x10^3/uL (4.0-11.0) Red Blood Count 3.09 x10^6/uL (3.50-5.40) Hemoglobin 8.9 g/dL (12.0-15.5) Hematocrit 27.0 % (36.0-47.0) Mean Corpuscular Volume 88 fL (79-100) Mean Corpuscular Hemoglobin 29 pg (25-35) Mean Corpuscular Hemoglobin Concent 33 g/dL (31-37) Red Cell Distribution Width 18.6 % (11.5-14.5) Platelet Count 310 x10^3/uL (140-400) Neutrophils (%) (Auto) 55 % (31-73) Lymphocytes (%) (Auto) 27 % (24-48) Monocytes (%) (Auto) 12 % (0-9) Eosinophils (%) (Auto) 4 % (0-3) Basophils (%) (Auto) 1 % (0-3) Neutrophils # (Auto) 3.3 x10^3uL (1.8-7.7) Lymphocytes # (Auto) 1.6 x10^3/uL (1.0-4.8) Monocytes # (Auto) 0.7 x10^3/uL (0.0-1.1) Eosinophils # (Auto) 0.2 x10^3/uL (0.0-0.7) Basophils # (Auto) 0.1 x10^3/uL (0.0-0.2) Sodium Level 144 mmol/L (136-145) Potassium Level 4.1 mmol/L (3.5-5.1) Chloride Level 111 mmol/L (98-107) Carbon Dioxide Level 22 mmol/L (21-32) Anion Gap 11 (6-14) Blood Urea Nitrogen 27 mg/dL (7-20) Creatinine 2.5 mg/dL (0.6-1.0) Estimated GFR (Cockcroft-Gault) 19.6 Glucose Level 91 mg/dL (70-99) Calcium Level 8.3 mg/dL (8.5-10.1) Allergies Allergies Coded Allergies Type Severity Reaction Last Updated Verified levofloxacin Allergy Intermediate 01/23/18 Yes I S O L A T I O N *CONTACT* Allergy Unknown 04/14/18 Yes diphenhydramine HCl Adverse Reaction Intermediate "Jittery on the inside" 01/23 Yes Disposition/Orders: Other (to snf bed) Patient Instructions d/c planning 32 min WEI COLLINS MD May 01, 2018 16:02
--- NOTE | 2018-05-01 16:03 | DISCH ---
DISCHARGE DISCHARGE INFORMATION: DISCHARGE DATE: May 01, 2018 CONDITION ON DISCHARGE: Stable CODE STATUS: Code Status: Full [facility]: SNF STAY <30 DAYS: Yes HOSPICE: HOSPICE: No HOSPICE EVAL & TREAT: No LTAC: ADMIT TO LTAC: No POST DISCHARGE ORDERS: ACTIVITY ORDERS: Activity as tolerated WEIGHT BEARING STATUS: As tolerated BATHING ORDERS: Shower-keep dressing dry, No Tub Bath until see WOUND/INCISION CARE: Ice to area for comfort, Routine catheter care CHECKS AFTER DISCHARGE: CHECKS AFTER DISCHARGE: Check blood press - daily, Check blood sugar, ac/hs TREATMENT/EQUIPMENT ORDERS: ADAPTIVE EQUIPMENT NEEDED: None Physical Therapy For: Evalulation/Treatment Occupational Therapy For: Evaluation/Treatment Speech Language Pathology For: Evaluation/Treatment DISCHARGE MEDICATIONS: Home Meds Active Scripts Ondansetron (ZOFRAN ODT) 4 Mg Tab.rapdis, 1 TAB SL Q8HRS PRN for NAUSEA, #15 TAB Prov:MOON IRELAND DO 04/06/18 Nitrofurantoin Monohyd/M-Cryst (MACROBID 100 MG CAPSULE) 100 Mg Capsule, 1 CAP PO BID, #14 CAP Prov:MOON IRELAND DO 04/06/18 Ondansetron (ZOFRAN ODT) 4 Mg Tab.rapdis, 1 TAB SL Q8HRS, #10 TAB Prov:JONI SLAUGHTER APRN 02/10/18 Oxycodone/Apap 7.5-325 (PERCOCET 7.5-325 MG TABLET) 1 Each Tablet, 1 TAB PO QID , #40 TAB Prov:ERNIE FAITH MD 02/03/18 Duloxetine Hcl (CYMBALTA) 30 Mg Capsule., 90 MG PO DAILY for 30 Days, #90 CAP Prov:KERRIE GONZALEZ MD 11/20/17 Oxycodone Hcl (OXYCODONE HCL) 10 Mg Tablet, 1 TAB PO PRN Q6HRS PRN for PAIN for 30 Days, #20 TAB Prov:LIDIA URIAS MD 11/03/17 Alprazolam (ALPRAZOLAM) 0.5 Mg Tablet, 1 TAB PO TID for 30 Days, #90 TAB Prov:LIDIA URIAS MD 11/03/17 Reported Medications Amlodipine Besylate (AMLODIPINE BESYLATE) 10 Mg Tablet, 10 MG PO DAILY 02/18/18 Alprazolam (ALPRAZOLAM) 1 Mg Tablet, 1 MG PO PRN TID PRN for ANXIETY / AGITATION 01/22/18 Esomeprazole Magnesium (NEXIUM CAPSULE) 40 Mg Capsule., 1 CAP PO DAILY, #30 CAP 5 Refills 10/04/17 WEI COLLINS MD May 01, 2018 16:03
[2018-05-01] MEDS ORDERED: LACT1CAP19 PO (16:07)
[2018-05-01] MEDS ORDERED: CEFTRIAXONE SODIUM IVP (16:07)
== END 2018-05-01 18:19 | DRG 871 ==
LOC: ER 14:37 → 5 SOUTH 17:10
PROVIDERS: ADMIT Internal Medicine; ATTEND Internal Medicine
DX: A41.9 Sepsis, unspecified organism (principal); G93.41 Metabolic encephalopathy; N39.0 Urinary tract infection, site not specified; N18.9 Chronic kidney disease, unspecified; M79.7 Fibromyalgia; Z96.659 Presence of unspecified artificial knee joint; K21.9 Gastro-esophageal reflux disease without esophagitis; F41.9 Anxiety disorder, unspecified; F32.9 Major depressive disorder, single episode, unspecified; E78.5 Hyperlipidemia, unspecified; I12.9 Hypertensive chronic kidney disease with stage 1 through stage 4 chronic kidney disease, or unspecified chronic kidney disease; D64.9 Anemia, unspecified; K31.84 Gastroparesis; M25.561 Pain in right knee; G89.29 Other chronic pain; F17.200 Nicotine dependence, unspecified, uncomplicated; B96.20 Unspecified Escherichia coli [E. coli] as the cause of diseases classified elsewhere; Z82.49 Family history of ischemic heart disease and other diseases of the circulatory system; Z88.8 Allergy status to other drugs, medicaments and biological substances; Z98.51 Tubal ligation status; Z87.440 Personal history of urinary (tract) infections; Z91.19 Patient's noncompliance with other medical treatment and regimen
CPT/HCPCS: 36415; 51702; 70450; 80048; 80053; 80307; 81001; 82140; 83605; 85007; 85025; 87040; 87086; 87186; 96361; 96365; 96375; G0480; J0690; J0696; J2405; J3010; J7030; 97116; 99285-25; G0479

== ENCOUNTER 2018-05-27 08:15 | Emergency (ER) | payer MEDICARE ==
[~2018-05-27] VITALS: Ht 162.6 cm; Wt 68.0 kg
[~2018-05-27 08:15] MED LIST changes: +CEFTRIAXONE SODIUM IVP; +HYDR-2145 PO; +HYDR-3164 PO; -HYDR-971 PO; -HYDR25TA9 PO; -OXYC-327 PO; -OXYC-328 PO; -OXYC10TA45; +OXYC10TA46; -OXYC15TA60 PO; +OXYC15TA61 PO; +OXYC1TAB19 PO; +OXYC1TAB22 PO; +OXYC5TAB4 PO; -OXYC5TAB95 PO
[2018-05-27 08:25] VITALS: BP 172/101
--- NOTE | 2018-05-27 08:36 | EKG ---
[facility] [address] [place] [address] Test Date: 2018-05-27 Test Time: 08:26:01 Pat Name: SANTI HERRON Department: Room: Gender: F Sales Order Coordinator: : [id number] Requested By: NAT LANDERS Order Number: [id number] Reading MD: Dawood Clayton Measurements Intervals [place] Rate: 88 P: 36 UT: 158 QRS: -10 QRSD: 78 T: 35 QT: 390 QTc: 475 Interpretive Statements SINUS RHYTHM LEFTWARD AXIS PROLONGED QT BORDERLINE ECG Compared to ECG 04/01/2018 18:53:52 Left-axis deviation now present Electronically Signed On 05-28-2018 9:38:48 CORPORATE TAX MANAGER by Dawood Clayton
[2018-05-27 08:40] LABS: BASO % 0 % (0-3); EOS # 0.8 x10^3/uL (0.0-0.7); EOS % 8 % (0-3); HEMATOCRIT 33.3 % (36.0-47.0); HEMOGLOBIN 11.2 g/dL (12.0-15.5); LYMPH # 3.1 x10^3/uL (1.0-4.8); LYMPH % 32 % (24-48); MEAN CORPUSCULAR HEMOGLOBIN 29 pg (25-35); MEAN CORPUSCULAR HGB CONC 34 g/dL (31-37); MEAN CORPUSCULAR VOLUME 85 fL (79-100); MONO # 0.9 x10^3/uL (0.0-1.1); MONO % 9 % (0-9); NEUT # 4.9 x10^3uL (1.8-7.7); NEUT % 51 % (31-73); PLATELET COUNT 214 x10^3/uL (140-400); RED BLOOD COUNT 3.91 x10^6/uL (3.50-5.40); RED CELL DISTRIBUTION WIDTH 16.6 % (11.5-14.5); WHITE BLOOD COUNT 9.7 x10^3/uL (4.0-11.0)
--- NOTE | 2018-05-27 08:41 | PHYS DOC ---
Past Medical History Past Medical History: Fibromyalgia, Hypertension, Renal Disease, Other Additional Past Medical Histor: VRE,C-DIFF,FALLS,CHRONIC BACK/KNEE PAIN Past Surgical History: Knee Replacement, Other Additional Past Surgical Histo: BACK AND FEET SURGERY Smoking: Cigarettes (The patient is a nonsmoker.) Alcohol Use: Heavy Drug Use: None Adult General Chief Complaint Chief Complaint: SHORTNESS OF BREATH HPI HPI Patient is a 62-year-old female who presents to the emergency department for evaluation. She states over the past 24 hours she has had increasing difficult breathing along with a cough, which sounds productive, but she has not brought up any sputum. She denies any new pain other than her chronic neck and back pain. She was recently hospitalized here for a UTI, as well as renal insufficiency and other medical problems, as well as hallucinations in the setting of a history of alcohol abuse. The patient states she was discharged from the hospital to a rehabilitation center, from where she was discharged on Thanksgiving and has thus been living at home with her family. She states the cough started overnight. She denies any chest pain, or fevers. She is noted to have a normal oxygen saturation and is ambulatory upon arrival to the emergency department. There are no alleviating or exacerbating factors to her symptoms. Review of Systems Review of Systems Constitutional: Denies fever or chills [] Eyes: Denies change in visual acuity, redness, or eye pain [] HENT: Denies nasal congestion or sore throat [] Respiratory: Reports cough, shortness of breath, and "a raspy" voice.[] Cardiovascular: The patient denies any chest pain, palpitations, or orthopnea [ ] GI: Denies abdominal pain, nausea, vomiting, bloody stools or diarrhea [] : Denies dysuria or hematuria [] Musculoskeletal: Denies new back pain or joint pain [] Integument: Denies rash or skin lesions [] Neurologic: Denies headache, focal weakness or sensory changes [] Endocrine: Denies polyuria or polydipsia [] All other systems were reviewed and found to be within normal limits, except as documented in this note. Current Medications Current Medications Current Medications Medications (Trade) Dose Ordered Sig/Taz Start Time Stop Time Status Last Admin Dose Admin Albuterol/ Ipratropium (Duoneb) 3 ml 1X ONCE 05/27/18 08:45 05/27/18 08:46 DC 05/27/18 08:44 3 ML Allergies Allergies Allergies Coded Allergies Type Severity Reaction Last Updated Verified levofloxacin Allergy Intermediate 01/23/18 Yes I S O L A T I O N *CONTACT* Allergy Unknown 04/14/18 Yes diphenhydramine HCl Adverse Reaction Intermediate "Jittery on the inside" 01/23 Yes Physical Exam Physical Exam PHYSICAL EXAM: CONSTITUTIONAL: Well developed, well nourished HEAD: normocephalic, atraumatic EENT: PERRL, EOMI. Conjunctivae normal color, sclerae non-icteric; moist mucous membranes. The oropharynx is nonerythematous. Mucous membranes are moist. NECK: Supple, non-tender; no meningismus. LUNGS: There are scattered rhonchi in all lung medeiros, without any wheezes or rales. HEART: Regular rate and rhythm, no murmur CHEST: No deformity; non-tender ABDOMEN: The abdomen is soft, and non-tender, no masses or bruits. EXTREM: Normal ROM; no deformity, no calf tenderness. Normal pulses palpable in all extremities. There is no pedal edema. SKIN: No rash; no diaphoresis NEURO: Alert; normal speech and cognition; CN's grossly intact; strength grossly intact without focal deficit. BACK: No CVA TTP. Current Patient Data Vital Signs Vital Signs Date Time Temp Pulse Resp B/P (MAP) Pulse Ox O2 Delivery O2 Flow Rate FiO2 05/27/18 08:46 99 Room Air 05/27/18 08:25 98.2 87 18 172/101 (124) 98.2 Lab Values Laboratory Tests Test 05/27/18 08:17 05/27/18 08:27 Magnesium Level 1.8 mg/dL (1.8-2.4) Ethyl Alcohol Level < 10 mg/dL (0-10) White Blood Count 9.7 x10^3/uL (4.0-11.0) Red Blood Count 3.91 x10^6/uL (3.50-5.40) Hemoglobin 11.2 g/dL (12.0-15.5) L Hematocrit 33.3 % (36.0-47.0) L Mean Corpuscular Volume 85 fL (79-100) Mean Corpuscular Hemoglobin 29 pg (25-35) Mean Corpuscular Hemoglobin Concent 34 g/dL (31-37) Red Cell Distribution Width 16.6 % (11.5-14.5) H Platelet Count 214 x10^3/uL (140-400) Neutrophils (%) (Auto) 51 % (31-73) Lymphocytes (%) (Auto) 32 % (24-48) Monocytes (%) (Auto) 9 % (0-9) Eosinophils (%) (Auto) 8 % (0-3) H Basophils (%) (Auto) 0 % (0-3) Neutrophils # (Auto) 4.9 x10^3uL (1.8-7.7) Lymphocytes # (Auto) 3.1 x10^3/uL (1.0-4.8) Monocytes # (Auto) 0.9 x10^3/uL (0.0-1.1) Eosinophils # (Auto) 0.8 x10^3/uL (0.0-0.7) H Basophils # (Auto) 0.0 x10^3/uL (0.0-0.2) Sodium Level 138 mmol/L (136-145) Potassium Level 3.7 mmol/L (3.5-5.1) Chloride Level 102 mmol/L (98-107) Carbon Dioxide Level 27 mmol/L (21-32) Anion Gap 9 (6-14) Blood Urea Nitrogen 18 mg/dL (7-20) Creatinine 2.3 mg/dL (0.6-1.0) H Estimated GFR (Cockcroft-Gault) 21.6 BUN/Creatinine Ratio 8 (6-20) Glucose Level 97 mg/dL (70-99) Lactic Acid Level 1.3 mmol/L (0.4-2.0) Calcium Level 9.6 mg/dL (8.5-10.1) Total Bilirubin 0.2 mg/dL (0.2-1.0) Aspartate Amino Transferase (AST) 26 U/L (15-37) Alanine Aminotransferase (ALT) 18 U/L (14-59) Alkaline Phosphatase 90 U/L (46-116) Creatine Kinase 109 U/L (26-192) Creatine Kinase MB (Mass) 4.0 ng/mL (0.0-3.6) H Creatine Kinase MB Relative Index 3.7 % (0-4) Troponin I Quantitative < 0.017 ng/mL (0.000-0.055) PN-[id number]-Type Natriuretic Peptide 1933 pg/mL (0-124) H Total Protein 8.4 g/dL (6.4-8.2) H Albumin 3.4 g/dL (3.4-5.0) Albumin/Globulin Ratio 0.7 (1.0-1.7) L Laboratory Tests 05/27/18 08:27 Laboratory Tests 05/27/18 08:27 EKG EKG [Normal sinus rhythm at a rate of 89 beats for minute, ] and borderline leftward axis, QTC is 476 ms with otherwise normal intervals. There are no acute ischemic ST/T changes. Radiology/Procedures Radiology/Procedures [PROCEDURE: CHEST PA & LATERAL Chest, 2 views, 05/27/2018: HISTORY: Cough and shortness of breath Comparison is made to a study from 02/01/2018. The heart size is normal. There appears to be a small hiatal hernia. The pulmonary vascularity is within normal limits. No pulmonary infiltrate is seen. There is no evidence of pleural fluid. There is a mild thoracolumbar scoliosis with multilevel degenerative change. Surgical rods and screws are evident in the lumbar spine. IMPRESSION: No acute cardiopulmonary abnormality is detected.] Course & Med Decision Making Course & Med Decision Making Pertinent Labs and Imaging studies reviewed. (See chart for details) [The patient's condition remained stable. Her labs are similar or better compared to her recent values. I discussed test results with the patient as well as expectant management. Given her history of C. difficile, I'm hesitant to prescribe antibiotics without a clear indication of bacterial infection. The importance of close PCP follow-up and return precautions were discussed in detail.] Patient states that she would like some pain medication for her chronic back pain. She states she normally takes oxycodone but is out but is planning on seeing her. Primary physician tomorrow. She'll be given a single dose in the emergency department prior to her departure. Dragon Disclaimer Alejandraon Disclaimer This electronic medical record was generated, in whole or in part, using a voice recognition dictation system. Departure Departure Impression: Primary Impression: Cough Additional Impression: CKD (chronic kidney disease) stage 4, GFR 15-29 ml/min Disposition: HOME, SELF-CARE Condition: STABLE Referrals: AIDE CALLE JR, MD (PCP) Patient Instructions: Acute Bronchitis, Cough, Adult Scripts Benzonatate (TESSALON PERLE) 100 Mg Capsule 1 CAP PO TID PRN for COUGH, #21 CAP Prov: NAT LANDERS MD 05/27/18 Albuterol Sulfate (VENTOLIN HFA INHALER) 18 Gm Hfa.aer.ad 2 PUFF INH Q4HRS for FOR ASTHMA for 30 Days, #1 INHALER 0 Refills Prov: NAT LANDERS MD 05/27/18 Problem Qualifiers NAT LANDERS MD May 27, 2018 08:41
[2018-05-27] MEDS ORDERED: IPRATRPIUM/ALBUTEROL 0.5/2.5MG 3 ML NEBU. NEB ONE (08:45)
[2018-05-27 08:58] LABS: CALCIUM 9.6 mg/dL (8.5-10.1); CREATININE 2.3 mg/dL (0.6-1.0); GFR 21.6; POTASSIUM 3.7 mmol/L (3.5-5.1)
[2018-05-27 09:03] LABS: ALBUMIN 3.4 g/dL (3.4-5.0); ALBUMIN/GLOBULIN RATIO 0.7 (1.0-1.7); TOTAL BILIRUBIN 0.2 mg/dL (0.2-1.0); TOTAL PROTEIN 8.4 g/dL (6.4-8.2)
--- NOTE | 2018-05-27 09:17 | RAD ---
Chest, 2 views, 05/27/2018: HISTORY: Cough and shortness of breath Comparison is made to a study from 02/01/2018. The heart size is normal. There appears to be a small hiatal hernia. The pulmonary vascularity is within normal limits. No pulmonary infiltrate is seen. There is no evidence of pleural fluid. There is a mild thoracolumbar scoliosis with multilevel degenerative change. Surgical rods and screws are evident in the lumbar spine. IMPRESSION: No acute cardiopulmonary abnormality is detected. Electronically signed by: Russell Barrera MD (05/27/2018 9:14 AM) [facility]
[2018-05-27] MEDS ORDERED: BENZ100C PO (09:25)
[2018-05-27] MEDS ORDERED: VENTOLIN HFA18 GM INH (09:25)
[2018-05-27] MEDS ORDERED: oxyCODONE/APAP 5/325 1 TAB TABLET PO ONE (09:30)
== END 2018-05-27 09:54 | disposition home or self-care (01) ==
LOC: ER 08:15
DX: I12.9 Hypertensive chronic kidney disease with stage 1 through stage 4 chronic kidney disease, or unspecified chronic kidney disease (principal); N18.4 Chronic kidney disease, stage 4 (severe); R05 Cough; R06.02 Shortness of breath; G89.29 Other chronic pain; M54.2 Cervicalgia; M54.89 Other dorsalgia; M79.7 Fibromyalgia; F10.20 Alcohol dependence, uncomplicated; Z88.1 Allergy status to other antibiotic agents; Z91.041 Radiographic dye allergy status; Z88.8 Allergy status to other drugs, medicaments and biological substances; Y90.0 Blood alcohol level of less than 20 mg/100 ml
CPT/HCPCS: 36415; 71046; 80053; 82553; 83605; 83735; 83880; 84484; 85025; 93005; 94640; 99284; G0480; J7620

== ENCOUNTER 2018-08-16 13:16 | Inpatient (IN) | payer MEDICARE, OTHER ==
[~2018-08-16] VITALS: Ht 162.6 cm; Wt 67.1 kg
[~2018-08-16 13:16] MED LIST changes: -AMLO10TA6 PO; +AMLO10TA8 PO; +AMLO5TAB10 PO; -AMLO5TAB7 PO; +BENZ100C PO; +MECL25TA3 PO; +METH4TAB2 PO; +ORPH100T PO; +TRAZ-118 PO; -TRAZ-85 PO; -VANC125C2 PO; +VANC125C3 PO; +VENTOLIN HFA18 GM INH
--- NOTE | 2018-08-16 14:08 | PHYS DOC ---
Past Medical History Past Medical History: Fibromyalgia, Hypertension, Renal Disease, Other Additional Past Medical Histor: VRE,C-DIFF,FALLS,CHRONIC BACK/KNEE PAIN Past Surgical History: Knee Replacement, Other Additional Past Surgical Histo: BACK AND FEET SURGERY Alcohol Use: Heavy Drug Use: Marijuana Adult General Chief Complaint Chief Complaint: DIZZY/LIGHT HEADED HPI HPI Patient is a 62 year old female with a PMH of chronic pain, renal disease, and hypertension who presents with dizziness, nausea, vomiting, fevers, chills. Patient said that she felt fine yesterday and last night but woke up around 6 am this morning and as she rolled over and sat up to go the bathroom she became dizzy and describes the room spinning around her. The dizziness was so debilitating that she was not able to make it to the restroom and urinated on herself. She reports 12 episodes of non bloody vomiting with epigastric abdominal pain. She attributes the abdominal pain to her gastroparesis. She reports one episode of syncope in the past that was attributed to a low potassium level. Of note she says her renal disease is related to neurogenic bladder as a result of nerve damage from her back surgeries. She takes oxycodone three times a day for her pain management. She denies chest pain, shortness of breath, vision changes. Review of Systems Review of Systems Constitutional: Reports fever or chills Eyes: Denies change in visual acuity, redness, or eye pain HENT: Denies nasal congestion or sore throat Respiratory: Denies cough or shortness of breath GI: Reports abdominal pain, nausea, vomiting, diarrhea : Denies dysuria or hematuria Musculoskeletal: reports back pain Integument: Denies rash or skin lesions Neurologic: Denies focal weakness or sensory changes, reports headche Complete systems were reviewed and found to be within normal limits, except as documented in this note. Current Medications Current Medications Current Medications Medications (Trade) Dose Ordered Sig/Taz Start Time Stop Time Status Last Admin Dose Admin Acetaminophen (Tylenol) 650 mg PRN Q6HRS PRN 08/16/18 17:00 Acetaminophen/ Hydrocodone Bitart (Lortab 5/325) 1 tab PRN Q4HRS PRN 08/16/18 17:00 Albuterol Sulfate (Ventolin Neb Soln) 2.5 mg Q4HRS 08/16/18 20:00 Alprazolam (Xanax) 0.25 mg PRN Q8HRS PRN 08/16/18 17:00 Amlodipine Besylate (Norvasc) 10 mg DAILY 08/17/18 09:00 Benzonatate (Tessalon Perle) 100 mg PRN TID PRN 08/16/18 21:00 Calcium Carbonate/ Glycine (Tums) 500 mg PRN Q3HRS PRN 08/16/18 17:00 Chlordiazepoxide (Librium) 25 mg PRN Q6HRS PRN 08/16/18 17:00 Diazepam (Valium) 5 mg 1X ONCE 08/16/18 16:00 08/16/18 16:02 DC 08/16/18 16:07 5 MG Duloxetine HCl (Cymbalta) 90 mg DAILY 08/17/18 09:00 Famotidine (Pepcid Vial) 20 mg 1X ONCE 08/16/18 15:15 08/16/18 15:16 DC 08/16/18 15:15 20 MG Fentanyl Citrate (Fentanyl 2ml Vial) 50 mcg PRN Q2HR PRN 08/16/18 17:00 08/16/18 17:25 50 MCG Folic Acid (Folic Acid) 1 mg DAILY 08/17/18 09:00 Hydralazine HCl (Apresoline Inj) 20 mg 1X ONCE 08/16/18 16:00 08/16/18 16:02 DC 08/16/18 16:07 20 MG Labetalol HCl (Normodyne Iv Push) 20 mg PRN Q2HR PRN 08/16/18 17:00 Lactobacillus Rhamnosus (Culturelle) 1 cap BID 08/16/18 21:00 Magnesium Hydroxide (Milk Of Magnesia) 2,400 mg PRN Q12HR PRN 08/16/18 17:00 Meclizine HCl (Antivert) 25 mg PRN Q8HRS PRN 08/16/18 17:30 Morphine Sulfate (Morphine Sulfate) 4 mg 1X ONCE 08/16/18 16:00 08/16/18 16:00 DC Multivitamins (Thera M Plus) 1 tab DAILY 08/17/18 09:00 Multivitamins 10 ml/Folic Acid 1 mg/Sodium Chloride 1,010.2 ml @ 999.099 mls/hr 1X ONCE 08/16/18 17:00 08/16/18 18:00 08/16/18 17:25 999.099 MLS/HR Ondansetron HCl (Zofran Odt) 4 mg PRN Q8HRS PRN 08/16/18 17:00 Ondansetron HCl (Zofran) 4 mg PRN Q6HRS PRN 08/16/18 17:00 Oxycodone HCl (Roxicodone) 5 mg PRN Q3HRS PRN 08/16/18 17:00 Oxycodone/ Acetaminophen (Percocet 7.5/ 325) 1 tab PRN QID PRN 08/16/18 17:00 Pantoprazole Sodium (Protonix) 40 mg DAILYAC 08/17/18 07:30 Prochlorperazine (Compazine) 25 mg PRN Q12HR PRN 08/16/18 17:00 Prochlorperazine Edisylate (Compazine) 10 mg PRN Q6HRS PRN 08/16/18 17:00 Sodium Chloride 1,000 ml @ 100 mls/hr Q10H 08/16/18 16:52 08/17/18 02:51 Thiamine Mononitrate (Vitamin B-1) 100 mg ONCE ONCE 08/16/18 17:15 08/16/18 17:25 DC 08/16/18 17:25 100 MG Zolpidem Tartrate (Ambien) 5 mg PRN QHS PRN 08/16/18 17:00 Allergies Allergies Allergies Coded Allergies Type Severity Reaction Last Updated Verified levofloxacin Allergy Intermediate 01/23/18 Yes I S O L A T I O N *CONTACT* Allergy Unknown 04/14/18 Yes diphenhydramine HCl Adverse Reaction Intermediate "Jittery on the inside" 01/23 Yes morphine Adverse Reaction Intermediate BLACKOUT 08/16/18 Yes Physical Exam Physical Exam Constitutional: Well developed, well nourished, appears uncomfortable and anxious HENT: Normocephalic, atraumatic, bilateral external ears normal, oropharynx dry Eyes: PERRL, EOMI, conjunctiva normal, no discharge. Neck: no tenderness, no masses, no JVD Cardiovascular:Regular rhythm, tachycardic, no murmur Lungs & Thorax: Bilateral breath sounds clear to auscultation Abdomen: soft, epigastric tenderness and LLQ tenderness Skin: Warm, dry, no erythema, no rash. Back: lumbar tenderness Extremities: No tenderness, no cyanosis, no clubbing, ROM intact, no edema. Neurologic: Alert and oriented X 3, normal motor function, normal sensory function, no focal deficits noted. Psychologic: Anxious, judgement normal, mood normal. Current Patient Data Vital Signs Vital Signs Date Time Temp Pulse Resp B/P (MAP) Pulse Ox O2 Delivery O2 Flow Rate FiO2 08/16/18 17:25 19 97 Room Air 08/16/18 16:07 90 214/110 08/16/18 13:20 99.3 99.3 Lab Values Laboratory Tests Test 08/16/18 14:15 White Blood Count 5.0 x10^3/uL (4.0-11.0) Red Blood Count 4.51 x10^6/uL (3.50-5.40) Hemoglobin 12.0 g/dL (12.0-15.5) Hematocrit 37.4 % (36.0-47.0) Mean Corpuscular Volume 83 fL (79-100) Mean Corpuscular Hemoglobin 27 pg (25-35) Mean Corpuscular Hemoglobin Concent 32 g/dL (31-37) Red Cell Distribution Width 19.7 % (11.5-14.5) H Platelet Count 198 x10^3/uL (140-400) Neutrophils (%) (Auto) 83 % (31-73) H Lymphocytes (%) (Auto) 10 % (24-48) L Monocytes (%) (Auto) 6 % (0-9) Eosinophils (%) (Auto) 0 % (0-3) Basophils (%) (Auto) 1 % (0-3) Neutrophils # (Auto) 4.1 x10^3uL (1.8-7.7) Lymphocytes # (Auto) 0.5 x10^3/uL (1.0-4.8) L Monocytes # (Auto) 0.3 x10^3/uL (0.0-1.1) Eosinophils # (Auto) 0.0 x10^3/uL (0.0-0.7) Basophils # (Auto) 0.1 x10^3/uL (0.0-0.2) Sodium Level 140 mmol/L (136-145) Potassium Level 4.1 mmol/L (3.5-5.1) Chloride Level 100 mmol/L (98-107) Carbon Dioxide Level 23 mmol/L (21-32) Anion Gap 17 (6-14) H Blood Urea Nitrogen 16 mg/dL (7-20) Creatinine 2.0 mg/dL (0.6-1.0) H Estimated GFR (Cockcroft-Gault) 25.3 BUN/Creatinine Ratio 8 (6-20) Glucose Level 128 mg/dL (70-99) H Calcium Level 10.7 mg/dL (8.5-10.1) H Magnesium Level 1.7 mg/dL (1.8-2.4) L Total Bilirubin 0.7 mg/dL (0.2-1.0) Aspartate Amino Transferase (AST) 25 U/L (15-37) Alanine Aminotransferase (ALT) 17 U/L (14-59) Alkaline Phosphatase 134 U/L (46-116) H Creatine Kinase 60 U/L (26-192) Creatine Kinase MB (Mass) 2.1 ng/mL (0.0-3.6) Creatine Kinase MB Relative Index % (0-4) Troponin I Quantitative < 0.017 ng/mL (0.000-0.055) Total Protein 9.0 g/dL (6.4-8.2) H Albumin 3.4 g/dL (3.4-5.0) Albumin/Globulin Ratio 0.6 (1.0-1.7) L Laboratory Tests 08/16/18 14:15 Laboratory Tests 08/16/18 14:15 EKG EKG @13:49 sinus rhythm, peaked t waves HR of 95 BPM QRS: 72 ms QT/QTc: 368/466 ms Radiology/Procedures Radiology/Procedures PROCEDURE: CT HEAD WO CONTRAST CT HEAD INDICATION: Dizziness COMPARISON: 04/28/2018 Exposure: One or more of the following individualized dose reduction techniques were utilized for this examination: 1. Automated exposure control 2. Adjustment of the mA and/or kV according to patient size 3. Use of iterative reconstruction technique TECHNIQUE: 5 mm contiguous axial images were obtained from the skull base to the vertex in both bone and soft tissue algorithm. FINDINGS: Mild bilateral periventricular white matter hypodensities likely chronic small vessel ischemic disease. No evidence of acute intracranial hemorrhage. No extra-axial fluid collections. No mass effect or midline shift. Ventricular size is appropriate. Basal cisterns are patent. No fractures identified.Eastman-white differentiation is preserved.Globes and orbits are within normal limits. Paranasal sinuses and mastoid air cells are clear. IMPRESSION: No acute intracranial findings. Electronically signed by: John Flannery MD (08/16/2018 3:09 PM) [facility] PROCEDURE: CT ABDOMEN PELVIS WO CONTRAST Examination: CT ABDOMEN PELVIS WO CONTRAST History: luq, llq pain, vomiting Comparison/Correlation: 01/21/2018 CT abdomen and pelvis Findings: Axial images of the abdomen and pelvis were obtained without contrast. Sagittal and coronal reformatted images were provided. Small hiatal hernia is present. Liver, spleen, pancreas, and adrenal glands are normal. No radiopaque collecting system calculi. Left kidney is identified have an extrarenal pelvis. Right pyelocaliectasis is similar to previous exam. Right renal simple cyst suggested. Appendix is normal. Mild diverticulosis is present. Uterus is grossly unremarkable. Large quantity of gas is present within the urinary bladder.. Urinary bladder is moderately distended. Low lumbar spine postoperative spinal fusion noted with degenerative space narrowing at multiple levels. Impression: No radiopaque collecting system calculi or evidence of obstruction. Gas within the moderately distended urinary bladder is again seen. Correlate with history of intervention. No surrounding inflammatory changes about the urinary bladder. Correlate clinically in determining need for further assessment. PQRS Compliance Statement: One or more of the following individualized dose reduction techniques were utilized for this examination: 1. Automated exposure control 2. Adjustment of the mA and/or kV according to patient size 3. Use of iterative reconstruction technique Electronically signed by: Quinn Rodrigues MD (08/16/2018 4:13 PM) [facility] Course & Med Decision Making Course & Med Decision Making Pertinent Labs and Imaging studies reviewed. (See chart for details) [] Dragon Disclaimer Dragon Disclaimer This electronic medical record was generated, in whole or in part, using a voice recognition dictation system. Departure Departure Impression: Primary Impression: Hypertensive urgency Additional Impressions: Dizziness Chronic back pain Disposition: ADMITTED INPATIENT Admitting Physician: Tali Hill Condition: STABLE Referrals: AIDE CALLE JR, MD (PCP) Critical Care Time Critical care time was 30 minutes which includes time at bedside, spent in discussion of patient's care with specialists and/or family members, with interpretation of laboratory and/or radiological studies and is exclusive of procedures. Problem Qualifiers Additional Impressions: Chronic back pain Back pain location: low back pain Back pain laterality: bilateral Sciatica presence: without sciatica Qualified Codes: M54.5 - Low back pain; G89.29 - Other chronic pain PREET DEL RIO DO Aug 16, 2018 14:08
[2018-08-16] MEDS ORDERED: IV NORMAL SALINE 1000ML BAG 1,000 ML IV ONE (14:30)
[2018-08-16 14:39] LABS: BASO # 0.1 x10^3/uL (0.0-0.2); BASO % 1 % (0-3); EOS % 0 % (0-3); HEMATOCRIT 37.4 % (36.0-47.0); LYMPH # 0.5 x10^3/uL (1.0-4.8); LYMPH % 10 % (24-48); MEAN CORPUSCULAR HEMOGLOBIN 27 pg (25-35); MEAN CORPUSCULAR HGB CONC 32 g/dL (31-37); MEAN CORPUSCULAR VOLUME 83 fL (79-100); MONO # 0.3 x10^3/uL (0.0-1.1); MONO % 6 % (0-9); NEUT # 4.1 x10^3uL (1.8-7.7); NEUT % 83 % (31-73); PLATELET COUNT 198 x10^3/uL (140-400); RED BLOOD COUNT 4.51 x10^6/uL (3.50-5.40); RED CELL DISTRIBUTION WIDTH 19.7 % (11.5-14.5)
[2018-08-16] MEDS ORDERED: LABETALOL 20 MG/4 ML DISP.SYRIN. IVP ONE (14:45)
[2018-08-16] MEDS ORDERED: MECLIZINE HCL 12.5 MG TABLET. PO ONE (14:45)
[2018-08-16 14:50] LABS: CALCIUM 10.7 mg/dL (8.5-10.1); GFR 25.3; POTASSIUM 4.1 mmol/L (3.5-5.1)
[2018-08-16 14:58] LABS: ALBUMIN 3.4 g/dL (3.4-5.0); ALBUMIN/GLOBULIN RATIO 0.6 (1.0-1.7); MAGNESIUM 1.7 mg/dL (1.8-2.4); TOTAL BILIRUBIN 0.7 mg/dL (0.2-1.0)
[2018-08-16] MEDS ORDERED: ONDANSETRON PF 4 MG/2 ML VIAL. IV ONE (15:00)
[2018-08-16 15:03] LABS: CREATINE KINASE 60 U/L (26-192)
--- NOTE | 2018-08-16 15:12 | RAD ---
CT HEAD INDICATION: Dizziness COMPARISON: 04/28/2018 Exposure: One or more of the following individualized dose reduction techniques were utilized for this examination: 1. Automated exposure control 2. Adjustment of the mA and/or kV according to patient size 3. Use of iterative reconstruction technique TECHNIQUE: 5 mm contiguous axial images were obtained from the skull base to the vertex in both bone and soft tissue algorithm. FINDINGS: Mild bilateral periventricular white matter hypodensities likely chronic small vessel ischemic disease. No evidence of acute intracranial hemorrhage. No extra-axial fluid collections. No mass effect or midline shift. Ventricular size is appropriate. Basal cisterns are patent. No fractures identified.Eastman-white differentiation is preserved.Globes and orbits are within normal limits. Paranasal sinuses and mastoid air cells are clear. IMPRESSION: No acute intracranial findings. Electronically signed by: John Flannery MD (08/16/2018 3:09 PM) [facility]
[2018-08-16] MEDS ORDERED: fentaNYL PF VIAL 100 MCG/2 ML VIAL IV ONE (15:15)
[2018-08-16] MEDS ORDERED: FAMOTIDINE 20 MG/2 ML VIAL IVP ONE (15:15)
[2018-08-16] MEDS ORDERED: MORPHINE SULFATE 4 MG/ML VIAL. IV ONE (16:00)
[2018-08-16] MEDS ORDERED: hydrALAZINE 20 MG/ML VIAL. IVP ONE (16:00)
[2018-08-16] MEDS ORDERED: diazePAM 5 MG TABLET PO ONE (16:00)
--- NOTE | 2018-08-16 16:16 | RAD ---
Examination: CT ABDOMEN PELVIS WO CONTRAST History: luq, llq pain, vomiting Comparison/Correlation: 01/21/2018 CT abdomen and pelvis Findings: Axial images of the abdomen and pelvis were obtained without contrast. Sagittal and coronal reformatted images were provided. Small hiatal hernia is present. Liver, spleen, pancreas, and adrenal glands are normal. No radiopaque collecting system calculi. Left kidney is identified have an extrarenal pelvis. Right pyelocaliectasis is similar to previous exam. Right renal simple cyst suggested. Appendix is normal. Mild diverticulosis is present. Uterus is grossly unremarkable. Large quantity of gas is present within the urinary bladder.. Urinary bladder is moderately distended. Low lumbar spine postoperative spinal fusion noted with degenerative space narrowing at multiple levels. Impression: No radiopaque collecting system calculi or evidence of obstruction. Gas within the moderately distended urinary bladder is again seen. Correlate with history of intervention. No surrounding inflammatory changes about the urinary bladder. Correlate clinically in determining need for further assessment. PQRS Compliance Statement: One or more of the following individualized dose reduction techniques were utilized for this examination: 1. Automated exposure control 2. Adjustment of the mA and/or kV according to patient size 3. Use of iterative reconstruction technique Electronically signed by: Quinn Rodrigues MD (08/16/2018 4:13 PM) [facility]
[2018-08-16] MEDS ORDERED: IV NORMAL SALINE 1000ML BAG 1,000 ML IV SCH (16:52)
[2018-08-16] MEDS ORDERED: MAGNESIUM HYDROXIDE 2,400 MG/30 ML ORAL.SUSP. PO PRN (17:00)
[2018-08-16] MEDS ORDERED: MULTIVIT INFUSN,ADULT 4,VIT K 10 ML, FOLIC ACID INJ 1 MG in IV NORMAL SALINE 1000ML BAG... IV ONE (17:00)
[2018-08-16] MEDS ORDERED: PROCHLORPERAZINE 25 MG SUPP.RECT. PR PRN (17:00)
[2018-08-16] MEDS ORDERED: PROCHLORPERAZINE 10 MG/2 ML VIAL. IV PRN ×2 (17:00)
[2018-08-16] MEDS ORDERED: HYDROcodone/APAP 5/325MG 1 TAB TABLET PO PRN (17:00)
[2018-08-16] MEDS ORDERED: ACETAMINOPHEN 325 MG TABLET. PO PRN (17:00)
[2018-08-16] MEDS ORDERED: oxyCODONE IR 5 MG TABLET PO PRN (17:00)
[2018-08-16] MEDS ORDERED: CALCIUM CARBONATE 500 MG TAB.CHEW PO PRN (17:00)
[2018-08-16] MEDS ORDERED: chlordiazePOXIDE HCL 25 MG CAPSULE PO PRN (17:00)
--- NOTE | 2018-08-16 17:05 | PDOC1 ---
History and Physical Date of Admission Date of Admission DATE: 08/16/18 TIME: 16:58 Identification/Chief Complaint Chief Complaint Shaking, vomited 12 times today Source Source: Caregiver, Chart review, Patient History of Present Illness History of Present Illness 62-year-old female known to the hospital because she is a frequent flyer for chronic vomiting, chronic UTI from intermittently self catheters, narcotic dependence. She was dropped by private vehicle to the ER claims she has been vomiting 12 times today. She has had 3 visits in the ER for the last 3 months as I look in the records. Creatinine is baseline of 1.5 - she has an element of CK D. No UA sample but for sure she will have another UTI. She has a history of VRE UTI known to infectious disease. She claims she drank wine, she tends to deny when asked about drinking hx, She has depression and dtr actually concerned about frequency of hospital visits but cant seem to do anything about it. In any case, Her blood pressure was 220 systolic on arrival. ER gave 2 blood pressure meds and now 170-180 systolic. Still very shaky. Admitted henceforth, Past Medical History Cardiovascular: HTN, Hyperlipidemia Pulmonary: No pertinent hx GI: GERD, Other Heme/Onc: Anemia NOS Hepatobiliary: Other Psych: Anxiety, Depression Rheumatologic: Fibromyalgia Infectious disease: No pertinent hx, Other Renal/: Chronic renal insuff, Other Past Surgical History Past Surgical History: Total knee replacement, Tubal Ligation, Other ( suprapubic cath placement and taken down afoter few weeks ) Family History Family History: Heart Disease, Hypertension Social History Smoke: No ALCOHOL: heavy Drugs: Marijuana Current Medications Current Medications Current Medications Sodium Chloride 1,000 ml @ 1,000 mls/hr 1X ONCE IV Last administered on at 14:30; Start 08/16/18 at 14:30; Stop 08/16/18 at 15:29; Status DC Ondansetron HCl (Zofran) 4 mg 1X ONCE IV Last administered on 08/16/18at 14:54 ; Start 08/16/18 at 15:00; Stop 08/16/18 at 15:01; Status DC Meclizine HCl (Antivert) 25 mg 1X ONCE PO Last administered on 08/16/18at 14:45 ; Start 08/16/18 at 14:45; Stop 08/16/18 at 14:46; Status DC Labetalol HCl (Normodyne Iv Push) 10 mg 1X ONCE IVP Last administered on at 14:45; Start 08/16/18 at 14:45; Stop 08/16/18 at 14:46; Status DC Fentanyl Citrate (Fentanyl 2ml Vial) 75 mcg 1X ONCE IV Last administered on at 15:15; Start 08/16/18 at 15:15; Stop 08/16/18 at 15:16; Status DC Famotidine (Pepcid Vial) 20 mg 1X ONCE IVP Last administered on 08/16/18at 15: 15; Start 08/16/18 at 15:15; Stop 08/16/18 at 15:16; Status DC Hydralazine HCl (Apresoline Inj) 20 mg 1X ONCE IVP Last administered on at 16:07; Start 08/16/18 at 16:00; Stop 08/16/18 at 16:02; Status DC Morphine Sulfate (Morphine Sulfate) 4 mg 1X ONCE IV ; Start 08/16/18 at 16:00; Stop 08/16/18 at 16:00; Status DC Diazepam (Valium) 5 mg 1X ONCE PO Last administered on 08/16/18at 16:07; Start 08/16/18 at 16:00; Stop 08/16/18 at 16:02; Status DC Sodium Chloride 1,000 ml @ 100 mls/hr Q10H IV ; Start 08/16/18 at 16:52; Stop 08/17/18 at 02:51; Status UNV Ondansetron HCl (Zofran) 4 mg PRN Q6HRS PRN IV NAUSEA/VOMITING; Start 08/16/18 at 17:00; Status UNV Prochlorperazine Edisylate (Compazine) 10 mg PRN Q6HRS PRN IV NAUSEA/VOMITING; Start 08/16/18 at 17:00; Status UNV Prochlorperazine (Compazine) 25 mg PRN Q12HR PRN MI NAUSEA/VOMITING; Start at 17:00; Status UNV Calcium Carbonate/ Glycine (Tums) 500 mg PRN Q3HRS PRN PO UPSET STOMACH; Start 08/16/18 at 17:00; Status UNV Oxycodone HCl (Roxicodone) 5 mg PRN Q3HRS PRN PO BREAKTHROUGH PAIN; Start 08/16 at 17:00; Status UNV Acetaminophen/ Hydrocodone Bitart (Lortab 5/325) 1 tab PRN Q4HRS PRN PO MILD PAIN; Start 08/16/18 at 17:00; Status UNV Acetaminophen (Tylenol) 650 mg PRN Q6HRS PRN PO Headaches, Temp > 101.5F; Start 08/16/18 at 17:00; Status UNV Magnesium Hydroxide (Milk Of Magnesia) 2,400 mg PRN Q12HR PRN PO CONSTIPATION; Start 08/16/18 at 17:00; Status UNV Chlordiazepoxide (Librium) 25 mg PRN Q6HRS PRN PO ANXIETY / AGITATION; Start at 17:00; Status UNV Active Scripts Active Macrobid 100 Mg Capsule (Nitrofurantoin Monohyd/M-Cryst) 100 Mg Capsule 1 Cap PO BID Medrol (Methylprednisolone) 4 Mg Tab.ds.pk 1 Pkg PO UD Orphenadrine Citrate 100 Mg Tablet.er 100 Mg PO BID Meclizine Hcl 25 Mg Tablet 25 Mg PO PRN TID PRN dizziness Tessalon Perle (Benzonatate) 100 Mg Capsule 1 Cap PO TID PRN Ventolin Hfa Inhaler (Albuterol Sulfate) 18 Gm Hfa.aer.ad 2 Puff INH Q4HRS 30 Days Culturelle (Lactobacillus Rhamnosus Gg) 1 Each Cap.sprink 1 Cap PO BID 14 Days [Ceftriaxone Sodium] 1 GM Vial 1 Gm IVP Q24H 7 Days Zofran Odt (Ondansetron) 4 Mg Tab.rapdis 1 Tab SL Q8HRS PRN Zofran Odt (Ondansetron) 4 Mg Tab.rapdis 1 Tab SL Q8HRS Percocet 7.5-325 Mg Tablet (Oxycodone/Acetaminophen) 1 Each Tablet 1 Tab PO QID Cymbalta (Duloxetine Hcl) 30 Mg Capsule. 90 Mg PO DAILY 30 Days Reported Amlodipine Besylate 10 Mg Tablet 10 Mg PO DAILY Nexium Capsule (Esomeprazole Magnesium) 40 Mg Capsule. 1 Cap PO DAILY Allergies Allergies: Coded Allergies: levofloxacin (Verified Allergy, Intermediate, 01/23/18) TOLERATES CIPRO I S O L A T I O N *CONTACT* (Verified Allergy, Unknown, 04/14/18) mrsa, chronic C.diff diphenhydramine HCl (Verified Adverse Reaction, Intermediate, "Jittery on the inside", 01/23/18) morphine (Verified Adverse Reaction, Intermediate, BLACKOUT, 08/16/18) REPORTS WHEN GIVEN IV MORPHINE SHE BLACKS OUT. NO ADVERSE REACTION TO ORAL OR IM ROS Review of System Shaky, diarrhea, weak, nauseated, vomiting Physical Exam General: No acute distress, Other (very shaky) HEENT: Atraumatic, PERRLA, EOMI Lungs: Clear to auscultation, Normal air movement Heart: S1S2, no thrills, no rubs, no gallops, no murmurs, other (sinus tachycardia) Breasts: Normal, Rt breast nml w/o mass, Lt breast nml w/o mass, Nipples normal Abdomen: Soft, Other (hyperactive bowel sounds) Rectal Exam: not examined PELVIC: Nml ext genitalia Extremities: No clubbing, No cyanosis, No edema, Normal pulses, No tenderness/ swelling Skin: No rashes, No breakdown, No significant lesion Neuro: Normal gait, Normal speech, Strength at 5/5 X4 ext, Normal tone, Sensation intact, Cranial nerves 3-12 NL, Reflexes 2+ Psych/Mental Status: Mental status NL, Mood NL Vitals Vitals Vital Signs Date Time Temp Pulse Resp B/P (MAP) Pulse Ox O2 Delivery O2 Flow Rate FiO2 08/16/18 16:11 20 99 Room Air 08/16/18 16:07 90 214/110 08/16/18 13:20 99.3 99.3 Labs Labs Laboratory Tests Test 08/16/18 14:15 White Blood Count 5.0 x10^3/uL (4.0-11.0) Red Blood Count 4.51 x10^6/uL (3.50-5.40) Hemoglobin 12.0 g/dL (12.0-15.5) Hematocrit 37.4 % (36.0-47.0) Mean Corpuscular Volume 83 fL (79-100) Mean Corpuscular Hemoglobin 27 pg (25-35) Mean Corpuscular Hemoglobin Concent 32 g/dL (31-37) Red Cell Distribution Width 19.7 % (11.5-14.5) Platelet Count 198 x10^3/uL (140-400) Neutrophils (%) (Auto) 83 % (31-73) Lymphocytes (%) (Auto) 10 % (24-48) Monocytes (%) (Auto) 6 % (0-9) Eosinophils (%) (Auto) 0 % (0-3) Basophils (%) (Auto) 1 % (0-3) Neutrophils # (Auto) 4.1 x10^3uL (1.8-7.7) Lymphocytes # (Auto) 0.5 x10^3/uL (1.0-4.8) Monocytes # (Auto) 0.3 x10^3/uL (0.0-1.1) Eosinophils # (Auto) 0.0 x10^3/uL (0.0-0.7) Basophils # (Auto) 0.1 x10^3/uL (0.0-0.2) Sodium Level 140 mmol/L (136-145) Potassium Level 4.1 mmol/L (3.5-5.1) Chloride Level 100 mmol/L (98-107) Carbon Dioxide Level 23 mmol/L (21-32) Anion Gap 17 (6-14) Blood Urea Nitrogen 16 mg/dL (7-20) Creatinine 2.0 mg/dL (0.6-1.0) Estimated GFR (Cockcroft-Gault) 25.3 BUN/Creatinine Ratio 8 (6-20) Glucose Level 128 mg/dL (70-99) Calcium Level 10.7 mg/dL (8.5-10.1) Magnesium Level 1.7 mg/dL (1.8-2.4) Total Bilirubin 0.7 mg/dL (0.2-1.0) Aspartate Amino Transf (AST/SGOT) 25 U/L (15-37) Alanine Aminotransferase (ALT/SGPT) 17 U/L (14-59) Alkaline Phosphatase 134 U/L (46-116) Creatine Kinase 60 U/L (26-192) Creatine Kinase MB (Mass) 2.1 ng/mL (0.0-3.6) Creatine Kinase MB Relative Index % (0-4) Troponin I Quantitative < 0.017 ng/mL (0.000-0.055) Total Protein 9.0 g/dL (6.4-8.2) Albumin 3.4 g/dL (3.4-5.0) Albumin/Globulin Ratio 0.6 (1.0-1.7) Laboratory Tests Test 08/16/18 14:15 White Blood Count 5.0 x10^3/uL (4.0-11.0) Red Blood Count 4.51 x10^6/uL (3.50-5.40) Hemoglobin 12.0 g/dL (12.0-15.5) Hematocrit 37.4 % (36.0-47.0) Mean Corpuscular Volume 83 fL (79-100) Mean Corpuscular Hemoglobin 27 pg (25-35) Mean Corpuscular Hemoglobin Concent 32 g/dL (31-37) Red Cell Distribution Width 19.7 % (11.5-14.5) Platelet Count 198 x10^3/uL (140-400) Neutrophils (%) (Auto) 83 % (31-73) Lymphocytes (%) (Auto) 10 % (24-48) Monocytes (%) (Auto) 6 % (0-9) Eosinophils (%) (Auto) 0 % (0-3) Basophils (%) (Auto) 1 % (0-3) Neutrophils # (Auto) 4.1 x10^3uL (1.8-7.7) Lymphocytes # (Auto) 0.5 x10^3/uL (1.0-4.8) Monocytes # (Auto) 0.3 x10^3/uL (0.0-1.1) Eosinophils # (Auto) 0.0 x10^3/uL (0.0-0.7) Basophils # (Auto) 0.1 x10^3/uL (0.0-0.2) Sodium Level 140 mmol/L (136-145) Potassium Level 4.1 mmol/L (3.5-5.1) Chloride Level 100 mmol/L (98-107) Carbon Dioxide Level 23 mmol/L (21-32) Anion Gap 17 (6-14) Blood Urea Nitrogen 16 mg/dL (7-20) Creatinine 2.0 mg/dL (0.6-1.0) Estimated GFR (Cockcroft-Gault) 25.3 BUN/Creatinine Ratio 8 (6-20) Glucose Level 128 mg/dL (70-99) Calcium Level 10.7 mg/dL (8.5-10.1) Magnesium Level 1.7 mg/dL (1.8-2.4) Total Bilirubin 0.7 mg/dL (0.2-1.0) Aspartate Amino Transf (AST/SGOT) 25 U/L (15-37) Alanine Aminotransferase (ALT/SGPT) 17 U/L (14-59) Alkaline Phosphatase 134 U/L (46-116) Creatine Kinase 60 U/L (26-192) Creatine Kinase MB (Mass) 2.1 ng/mL (0.0-3.6) Creatine Kinase MB Relative Index % (0-4) Troponin I Quantitative < 0.017 ng/mL (0.000-0.055) Total Protein 9.0 g/dL (6.4-8.2) Albumin 3.4 g/dL (3.4-5.0) Albumin/Globulin Ratio 0.6 (1.0-1.7) VTE Prophylaxis Ordered VTE Prophylaxis Devices: Yes VTE Pharmacological Prophylaxi: Yes Assessment/Plan Assessment/Plan Emesis 12 today CK D-no evidence of GILES on this admission HTN emergency POA - systolic 220s in gifty background of vomiting SIRS possible sepsis on admission-UA is still pending History of VRE UTI was sensitive to Zyvox-previously on Zyvox before but unable to afford hence doubt compliance Alcohol dependence Depression NOS Narcotic dependence HX neurogenic bladder - self caths AOCD GERD Cyclic vomiting? PLAN: Admit, hydrate, nausea meds, get UA If UA is dirty will need Zyvox/ID consult given complicated UTI hx No PT needs usually Nothing by mouth or liquid diet for now then ADA T once not vomiting any more Address the blood pressure within the next 24 hours his blood pressure was over 200 and admission Alcohol cessation advised 1-1 less than 30 minutes today CIWA protocol Librium when necessary Xanax when necessary PPI etc. and other supportive meds COnt SSRi/anti depressant (seems not to be working) Seen at ER #[id number] FULL CODE dw ptand ER LIDIA SCHNEIDER MD Aug 16, 2018 17:05
[2018-08-16] MEDS ORDERED: THIAMINE 100 MG TABLET. PO ONE (17:15)
[2018-08-16] MEDS: fentaNYL PF VIAL 100 MCG/2 ML VIAL IV PRN ×3 (17:25→21:43)
[2018-08-16] MEDS ORDERED: ONDANSETRON PF 4 MG/2 ML VIAL. IV PRN (17:30)
[2018-08-16] MEDS ORDERED: ALBUTEROL SULFATE 2.5 MG/3 ML NEBU. NEB PRN (18:00)
[2018-08-16 19:00] VITALS: BP 199/124
--- NOTE | 2018-08-16 19:30 | NUR ---
The patient, SANTI HERRON, 62 y/o, F admitted by LIDIA URIAS MD, was given written information regarding hospital policies, unit procedures and contact persons. Valuables were checked and left with patient.
[2018-08-16] MEDS: LABETALOL 20 MG/4 ML DISP.SYRIN. IVP PRN (19:43)
[2018-08-16] MEDS ORDERED: ALBUTEROL SULFATE 2.5 MG/3 ML NEBU. NEB SCH (20:00)
[2018-08-16 20:05] LABS: BILIRUBIN,URINE NEGATIVE (NEG); CLARITY,URINE CLEAR; COLOR,URINE YELLOW; NITRITE,URINE NEGATIVE (NEG); PROTEIN,URINE 100 mg/dL (NEG-TRACE); UROBILINOGEN,URINE 0.2 mg/dL (0.2 mg/dL)
[2018-08-16 20:30] LABS: BACTERIA,URINE MANY /HPF (0-FEW); RBC,URINE 0 /HPF (0-2); WBC,URINE >40 /HPF (0-4)
[2018-08-16] MEDS: ALPRAZolam 0.25 MG TABLET PO PRN (21:37)
[2018-08-16] MEDS: ZOLPIDEM 5 MG TABLET. PO PRN (21:37)
[2018-08-16] MEDS: LACTOBACILLUS RHAMNOSUS GG 1 CAPSULE. PO SCH (21:38)
[2018-08-16 23:00] VITALS: BP 147/84
[2018-08-17] MEDS: fentaNYL PF VIAL 100 MCG/2 ML VIAL IV PRN ×4 (00:52→09:09)
[2018-08-17] MEDS: MECLIZINE HCL 12.5 MG TABLET. PO PRN ×2 (00:58→09:07)
[2018-08-17 03:00] VITALS: BP 162/90
[2018-08-17] MEDS: LABETALOL 20 MG/4 ML DISP.SYRIN. IVP PRN ×2 (03:41→21:11)
[2018-08-17] MEDS: ONDANSETRON PF 4 MG/2 ML VIAL. IV PRN ×2 (03:47→12:38)
[2018-08-17 05:09] LABS: BASO % 1 % (0-3); EOS # 0.1 x10^3/uL (0.0-0.7); EOS % 1 % (0-3); HEMATOCRIT 29.4 % (36.0-47.0); HEMOGLOBIN 9.4 g/dL (12.0-15.5); LYMPH # 1.5 x10^3/uL (1.0-4.8); LYMPH % 29 % (24-48); MEAN CORPUSCULAR HEMOGLOBIN 27 pg (25-35); MEAN CORPUSCULAR HGB CONC 32 g/dL (31-37); MEAN CORPUSCULAR VOLUME 85 fL (79-100); MONO # 0.6 x10^3/uL (0.0-1.1); MONO % 12 % (0-9); NEUT # 2.9 x10^3uL (1.8-7.7); NEUT % 58 % (31-73); PLATELET COUNT 142 x10^3/uL (140-400); RED BLOOD COUNT 3.47 x10^6/uL (3.50-5.40); RED CELL DISTRIBUTION WIDTH 19.6 % (11.5-14.5)
[2018-08-17 06:16] LABS: CALCIUM 8.9 mg/dL (8.5-10.1); CREATININE 2.1 mg/dL (0.6-1.0); GFR 23.9; POTASSIUM 3.2 mmol/L (3.5-5.1)
[2018-08-17 07:00] VITALS: BP 159/98
[2018-08-17] MEDS: ALPRAZolam 0.25 MG TABLET PO PRN (09:00)
[2018-08-17] MEDS: MULTIVITAMIN with MINERAL TABLET. PO SCH (09:05)
[2018-08-17] MEDS: FOLIC ACID 1 MG TABLET. PO SCH (09:05)
[2018-08-17] MEDS: LACTOBACILLUS RHAMNOSUS GG 1 CAPSULE. PO SCH ×2 (09:05→21:10)
[2018-08-17] MEDS: THIAMINE 100 MG TABLET. PO SCH (09:05)
[2018-08-17] MEDS: amLODIPine BESYLATE 10 MG TABLET PO SCH (09:05)
[2018-08-17] MEDS: DULoxetine HCL 30 MG CAPSULE.DR PO SCH (09:07)
[2018-08-17] MEDS: PANTOPRAZOLE 40 MG TABLET.DR. PO SCH (09:07)
--- NOTE | 2018-08-17 10:46 | PDOC ---
PROGRESS NOTES History of Present Illness History of Present Illness Assessment/Plan intractable vomiting hypokalemia, volume depleted CK D- HTN emergency POA - SIRS possible sepsis on admission- History of VRE UTI was sensitive to Zyvox-in past Alcohol dependence Depression NOS Narcotic dependence hx Low lumbar spine postoperative spinal fusion noted with degenerative space narrowing at multiple levels. HX neurogenic bladder - self caths GERD PLAN: Admit, hydrate, nausea meds, iv fluids If UA is dirty will need Zyvox/ID consult given complicated UTI hx liquid diet for now then ADA control blood pressure Alcohol cessation advised CIWA protocol Librium prn Xanax when necessary PPI etc. and other supportive meds Vitals Vitals Vital Signs Date Time Temp Pulse Resp B/P (MAP) Pulse Ox O2 Delivery O2 Flow Rate FiO2 08/17/18 09:09 20 97 Room Air 08/17/18 09:05 82 159/98 08/17/18 07:00 98.5 98.5 Physical Exam Physical Exam Physical Exam General: No acute distress, HEENT: Atraumatic, PERRLA, EOMI Lungs: Clear to auscultation, Normal air movement Heart: S1S2, no thrills, no rubs, no gallops, no murmurs, Abdomen: Soft, Rectal Exam: not examined Extremities: No clubbing, No cyanosis, No edema, Normal pulses, No tenderness/ swelling Skin: No rashes, No breakdown, No significant lesion Neuro: Normal gait, Normal speech, Strength at 5/5 X4 ext, Normal tone, Sensation intact, Cranial nerves 3-12 NL, Reflexes 2+ Psych/Mental Status: Mental status NL, Mood NL General: Alert, Oriented X3, Cooperative, No acute distress, mild distress, Other (very shaky) Heart: Regular rate, No murmurs Lungs: Clear Abdomen: Normal bowel sounds, Soft, No tenderness, No hepatosplenomegaly, Other (nl bowel sounds) Extremities: No clubbing, No cyanosis, No edema, Normal pulses, No tenderness/ swelling Skin: No rashes, No breakdown, No significant lesion Labs LABS Examination: CT ABDOMEN PELVIS WO CONTRAST History: luq, llq pain, vomiting Comparison/Correlation: 01/21/2018 CT abdomen and pelvis Findings: Axial images of the abdomen and pelvis were obtained without contrast. Sagittal and coronal reformatted images were provided. Small hiatal hernia is present. Liver, spleen, pancreas, and adrenal glands are normal. No radiopaque collecting system calculi. Left kidney is identified have an extrarenal pelvis. Right pyelocaliectasis is similar to previous exam. Right renal simple cyst suggested. Appendix is normal. Mild diverticulosis is present. Uterus is grossly unremarkable. Large quantity of gas is present within the urinary bladder.. Urinary bladder is moderately distended. Low lumbar spine postoperative spinal fusion noted with degenerative space narrowing at multiple levels. Impression: No radiopaque collecting system calculi or evidence of obstruction. Gas within the moderately distended urinary bladder is again seen. Correlate with history of intervention. No surrounding inflammatory changes about the urinary bladder. Correlate clinically in determining need for further assessment. Laboratory Tests Test 08/16/18 14:15 08/16/18 19:50 08/16/18 21:00 08/17/18 00:01 White Blood Count 5.0 x10^3/uL (4.0-11.0) Red Blood Count 4.51 x10^6/uL (3.50-5.40) Hemoglobin 12.0 g/dL (12.0-15.5) Hematocrit 37.4 % (36.0-47.0) Mean Corpuscular Volume 83 fL (79-100) Mean Corpuscular Hemoglobin 27 pg (25-35) Mean Corpuscular Hemoglobin Concent 32 g/dL (31-37) Red Cell Distribution Width 19.7 % (11.5-14.5) Platelet Count 198 x10^3/uL (140-400) Neutrophils (%) (Auto) 83 % (31-73) Lymphocytes (%) (Auto) 10 % (24-48) Monocytes (%) (Auto) 6 % (0-9) Eosinophils (%) (Auto) 0 % (0-3) Basophils (%) (Auto) 1 % (0-3) Neutrophils # (Auto) 4.1 x10^3uL (1.8-7.7) Lymphocytes # (Auto) 0.5 x10^3/uL (1.0-4.8) Monocytes # (Auto) 0.3 x10^3/uL (0.0-1.1) Eosinophils # (Auto) 0.0 x10^3/uL (0.0-0.7) Basophils # (Auto) 0.1 x10^3/uL (0.0-0.2) Sodium Level 140 mmol/L (136-145) Potassium Level 4.1 mmol/L (3.5-5.1) Chloride Level 100 mmol/L (98-107) Carbon Dioxide Level 23 mmol/L (21-32) Anion Gap 17 (6-14) Blood Urea Nitrogen 16 mg/dL (7-20) Creatinine 2.0 mg/dL (0.6-1.0) Estimated GFR (Cockcroft-Gault) 25.3 BUN/Creatinine Ratio 8 (6-20) Glucose Level 128 mg/dL (70-99) Calcium Level 10.7 mg/dL (8.5-10.1) Magnesium Level 1.7 mg/dL (1.8-2.4) Total Bilirubin 0.7 mg/dL (0.2-1.0) Aspartate Amino Transf (AST/SGOT) 25 U/L (15-37) Alanine Aminotransferase (ALT/SGPT) 17 U/L (14-59) Alkaline Phosphatase 134 U/L (46-116) Creatine Kinase 60 U/L (26-192) Creatine Kinase MB (Mass) 2.1 ng/mL (0.0-3.6) Creatine Kinase MB Relative Index % (0-4) Troponin I Quantitative < 0.017 ng/mL (0.000-0.055) 0.023 ng/mL (0.000-0.055) < 0.017 ng/mL (0.000-0.055) Total Protein 9.0 g/dL (6.4-8.2) Albumin 3.4 g/dL (3.4-5.0) Albumin/Globulin Ratio 0.6 (1.0-1.7) Ethyl Alcohol Level < 10 mg/dL (0-10) Urine Collection Type Unknown Urine Color Yellow Urine Clarity Clear Urine pH 7.0 Urine Specific [place] <=1.005 Urine Protein 100 mg/dL (NEG-TRACE) Urine Glucose (UA) Negative mg/dL (NEG) Urine Ketones (Stick) Negative mg/dL (NEG) Urine Blood Trace (NEG) Urine Nitrite Negative (NEG) Urine Bilirubin Negative (NEG) Urine Urobilinogen Dipstick 0.2 mg/dL (0.2 mg/dL) Urine Leukocyte Esterase Moderate (NEG) Urine RBC 0 /HPF (0-2) Urine WBC >40 /HPF (0-4) Urine Bacteria Many /HPF (0-FEW) Test 08/17/18 04:05 White Blood Count 5.0 x10^3/uL (4.0-11.0) Red Blood Count 3.47 x10^6/uL (3.50-5.40) Hemoglobin 9.4 g/dL (12.0-15.5) Hematocrit 29.4 % (36.0-47.0) Mean Corpuscular Volume 85 fL (79-100) Mean Corpuscular Hemoglobin 27 pg (25-35) Mean Corpuscular Hemoglobin Concent 32 g/dL (31-37) Red Cell Distribution Width 19.6 % (11.5-14.5) Platelet Count 142 x10^3/uL (140-400) Neutrophils (%) (Auto) 58 % (31-73) Lymphocytes (%) (Auto) 29 % (24-48) Monocytes (%) (Auto) 12 % (0-9) Eosinophils (%) (Auto) 1 % (0-3) Basophils (%) (Auto) 1 % (0-3) Neutrophils # (Auto) 2.9 x10^3uL (1.8-7.7) Lymphocytes # (Auto) 1.5 x10^3/uL (1.0-4.8) Monocytes # (Auto) 0.6 x10^3/uL (0.0-1.1) Eosinophils # (Auto) 0.1 x10^3/uL (0.0-0.7) Basophils # (Auto) 0.0 x10^3/uL (0.0-0.2) Sodium Level 138 mmol/L (136-145) Potassium Level 3.2 mmol/L (3.5-5.1) Chloride Level 102 mmol/L (98-107) Carbon Dioxide Level 22 mmol/L (21-32) Anion Gap 14 (6-14) Blood Urea Nitrogen 14 mg/dL (7-20) Creatinine 2.1 mg/dL (0.6-1.0) Estimated GFR (Cockcroft-Gault) 23.9 Glucose Level 90 mg/dL (70-99) Calcium Level 8.9 mg/dL (8.5-10.1) Assessment and Plan Assessmemt and Plan Problems Medical Problems: (1) Chronic back pain Status: Acute (2) Dizziness Status: Acute (3) Hypertensive urgency Status: Acute Comment Review of Relevant I have reviewed the following items blade (where applicable) has been applied. Labs Laboratory Tests Test 08/16/18 14:15 08/16/18 19:50 08/16/18 21:00 08/17/18 00:01 White Blood Count 5.0 x10^3/uL (4.0-11.0) Red Blood Count 4.51 x10^6/uL (3.50-5.40) Hemoglobin 12.0 g/dL (12.0-15.5) Hematocrit 37.4 % (36.0-47.0) Mean Corpuscular Volume 83 fL (79-100) Mean Corpuscular Hemoglobin 27 pg (25-35) Mean Corpuscular Hemoglobin Concent 32 g/dL (31-37) Red Cell Distribution Width 19.7 % (11.5-14.5) Platelet Count 198 x10^3/uL (140-400) Neutrophils (%) (Auto) 83 % (31-73) Lymphocytes (%) (Auto) 10 % (24-48) Monocytes (%) (Auto) 6 % (0-9) Eosinophils (%) (Auto) 0 % (0-3) Basophils (%) (Auto) 1 % (0-3) Neutrophils # (Auto) 4.1 x10^3uL (1.8-7.7) Lymphocytes # (Auto) 0.5 x10^3/uL (1.0-4.8) Monocytes # (Auto) 0.3 x10^3/uL (0.0-1.1) Eosinophils # (Auto) 0.0 x10^3/uL (0.0-0.7) Basophils # (Auto) 0.1 x10^3/uL (0.0-0.2) Sodium Level 140 mmol/L (136-145) Potassium Level 4.1 mmol/L (3.5-5.1) Chloride Level 100 mmol/L (98-107) Carbon Dioxide Level 23 mmol/L (21-32) Anion Gap 17 (6-14) Blood Urea Nitrogen 16 mg/dL (7-20) Creatinine 2.0 mg/dL (0.6-1.0) Estimated GFR (Cockcroft-Gault) 25.3 BUN/Creatinine Ratio 8 (6-20) Glucose Level 128 mg/dL (70-99) Calcium Level 10.7 mg/dL (8.5-10.1) Magnesium Level 1.7 mg/dL (1.8-2.4) Total Bilirubin 0.7 mg/dL (0.2-1.0) Aspartate Amino Transf (AST/SGOT) 25 U/L (15-37) Alanine Aminotransferase (ALT/SGPT) 17 U/L (14-59) Alkaline Phosphatase 134 U/L (46-116) Creatine Kinase 60 U/L (26-192) Creatine Kinase MB (Mass) 2.1 ng/mL (0.0-3.6) Creatine Kinase MB Relative Index % (0-4) Troponin I Quantitative < 0.017 ng/mL (0.000-0.055) 0.023 ng/mL (0.000-0.055) < 0.017 ng/mL (0.000-0.055) Total Protein 9.0 g/dL (6.4-8.2) Albumin 3.4 g/dL (3.4-5.0) Albumin/Globulin Ratio 0.6 (1.0-1.7) Ethyl Alcohol Level < 10 mg/dL (0-10) Urine Collection Type Unknown Urine Color Yellow Urine Clarity Clear Urine pH 7.0 Urine Specific [place] <=1.005 Urine Protein 100 mg/dL (NEG-TRACE) Urine Glucose (UA) Negative mg/dL (NEG) Urine Ketones (Stick) Negative mg/dL (NEG) Urine Blood Trace (NEG) Urine Nitrite Negative (NEG) Urine Bilirubin Negative (NEG) Urine Urobilinogen Dipstick 0.2 mg/dL (0.2 mg/dL) Urine Leukocyte Esterase Moderate (NEG) Urine RBC 0 /HPF (0-2) Urine WBC >40 /HPF (0-4) Urine Bacteria Many /HPF (0-FEW) Test 08/17/18 04:05 White Blood Count 5.0 x10^3/uL (4.0-11.0) Red Blood Count 3.47 x10^6/uL (3.50-5.40) Hemoglobin 9.4 g/dL (12.0-15.5) Hematocrit 29.4 % (36.0-47.0) Mean Corpuscular Volume 85 fL (79-100) Mean Corpuscular Hemoglobin 27 pg (25-35) Mean Corpuscular Hemoglobin Concent 32 g/dL (31-37) Red Cell Distribution Width 19.6 % (11.5-14.5) Platelet Count 142 x10^3/uL (140-400) Neutrophils (%) (Auto) 58 % (31-73) Lymphocytes (%) (Auto) 29 % (24-48) Monocytes (%) (Auto) 12 % (0-9) Eosinophils (%) (Auto) 1 % (0-3) Basophils (%) (Auto) 1 % (0-3) Neutrophils # (Auto) 2.9 x10^3uL (1.8-7.7) Lymphocytes # (Auto) 1.5 x10^3/uL (1.0-4.8) Monocytes # (Auto) 0.6 x10^3/uL (0.0-1.1) Eosinophils # (Auto) 0.1 x10^3/uL (0.0-0.7) Basophils # (Auto) 0.0 x10^3/uL (0.0-0.2) Sodium Level 138 mmol/L (136-145) Potassium Level 3.2 mmol/L (3.5-5.1) Chloride Level 102 mmol/L (98-107) Carbon Dioxide Level 22 mmol/L (21-32) Anion Gap 14 (6-14) Blood Urea Nitrogen 14 mg/dL (7-20) Creatinine 2.1 mg/dL (0.6-1.0) Estimated GFR (Cockcroft-Gault) 23.9 Glucose Level 90 mg/dL (70-99) Calcium Level 8.9 mg/dL (8.5-10.1) Laboratory Tests Test 08/16/18 14:15 08/16/18 19:50 08/16/18 21:00 08/17/18 00:01 White Blood Count 5.0 x10^3/uL (4.0-11.0) Red Blood Count 4.51 x10^6/uL (3.50-5.40) Hemoglobin 12.0 g/dL (12.0-15.5) Hematocrit 37.4 % (36.0-47.0) Mean Corpuscular Volume 83 fL (79-100) Mean Corpuscular Hemoglobin 27 pg (25-35) Mean Corpuscular Hemoglobin Concent 32 g/dL (31-37) Red Cell Distribution Width 19.7 % (11.5-14.5) Platelet Count 198 x10^3/uL (140-400) Neutrophils (%) (Auto) 83 % (31-73) Lymphocytes (%) (Auto) 10 % (24-48) Monocytes (%) (Auto) 6 % (0-9) Eosinophils (%) (Auto) 0 % (0-3) Basophils (%) (Auto) 1 % (0-3) Neutrophils # (Auto) 4.1 x10^3uL (1.8-7.7) Lymphocytes # (Auto) 0.5 x10^3/uL (1.0-4.8) Monocytes # (Auto) 0.3 x10^3/uL (0.0-1.1) Eosinophils # (Auto) 0.0 x10^3/uL (0.0-0.7) Basophils # (Auto) 0.1 x10^3/uL (0.0-0.2) Sodium Level 140 mmol/L (136-145) Potassium Level 4.1 mmol/L (3.5-5.1) Chloride Level 100 mmol/L (98-107) Carbon Dioxide Level 23 mmol/L (21-32) Anion Gap 17 (6-14) Blood Urea Nitrogen 16 mg/dL (7-20) Creatinine 2.0 mg/dL (0.6-1.0) Estimated GFR (Cockcroft-Gault) 25.3 BUN/Creatinine Ratio 8 (6-20) Glucose Level 128 mg/dL (70-99) Calcium Level 10.7 mg/dL (8.5-10.1) Magnesium Level 1.7 mg/dL (1.8-2.4) Total Bilirubin 0.7 mg/dL (0.2-1.0) Aspartate Amino Transf (AST/SGOT) 25 U/L (15-37) Alanine Aminotransferase (ALT/SGPT) 17 U/L (14-59) Alkaline Phosphatase 134 U/L (46-116) Creatine Kinase 60 U/L (26-192) Creatine Kinase MB (Mass) 2.1 ng/mL (0.0-3.6) Creatine Kinase MB Relative Index % (0-4) Troponin I Quantitative < 0.017 ng/mL (0.000-0.055) 0.023 ng/mL (0.000-0.055) < 0.017 ng/mL (0.000-0.055) Total Protein 9.0 g/dL (6.4-8.2) Albumin 3.4 g/dL (3.4-5.0) Albumin/Globulin Ratio 0.6 (1.0-1.7) Ethyl Alcohol Level < 10 mg/dL (0-10) Urine Collection Type Unknown Urine Color Yellow Urine Clarity Clear Urine pH 7.0 Urine Specific [place] <=1.005 Urine Protein 100 mg/dL (NEG-TRACE) Urine Glucose (UA) Negative mg/dL (NEG) Urine Ketones (Stick) Negative mg/dL (NEG) Urine Blood Trace (NEG) Urine Nitrite Negative (NEG) Urine Bilirubin Negative (NEG) Urine Urobilinogen Dipstick 0.2 mg/dL (0.2 mg/dL) Urine Leukocyte Esterase Moderate (NEG) Urine RBC 0 /HPF (0-2) Urine WBC >40 /HPF (0-4) Urine Bacteria Many /HPF (0-FEW) Test 08/17/18 04:05 White Blood Count 5.0 x10^3/uL (4.0-11.0) Red Blood Count 3.47 x10^6/uL (3.50-5.40) Hemoglobin 9.4 g/dL (12.0-15.5) Hematocrit 29.4 % (36.0-47.0) Mean Corpuscular Volume 85 fL (79-100) Mean Corpuscular Hemoglobin 27 pg (25-35) Mean Corpuscular Hemoglobin Concent 32 g/dL (31-37) Red Cell Distribution Width 19.6 % (11.5-14.5) Platelet Count 142 x10^3/uL (140-400) Neutrophils (%) (Auto) 58 % (31-73) Lymphocytes (%) (Auto) 29 % (24-48) Monocytes (%) (Auto) 12 % (0-9) Eosinophils (%) (Auto) 1 % (0-3) Basophils (%) (Auto) 1 % (0-3) Neutrophils # (Auto) 2.9 x10^3uL (1.8-7.7) Lymphocytes # (Auto) 1.5 x10^3/uL (1.0-4.8) Monocytes # (Auto) 0.6 x10^3/uL (0.0-1.1) Eosinophils # (Auto) 0.1 x10^3/uL (0.0-0.7) Basophils # (Auto) 0.0 x10^3/uL (0.0-0.2) Sodium Level 138 mmol/L (136-145) Potassium Level 3.2 mmol/L (3.5-5.1) Chloride Level 102 mmol/L (98-107) Carbon Dioxide Level 22 mmol/L (21-32) Anion Gap 14 (6-14) Blood Urea Nitrogen 14 mg/dL (7-20) Creatinine 2.1 mg/dL (0.6-1.0) Estimated GFR (Cockcroft-Gault) 23.9 Glucose Level 90 mg/dL (70-99) Calcium Level 8.9 mg/dL (8.5-10.1) Medications Current Medications Sodium Chloride 1,000 ml @ 1,000 mls/hr 1X ONCE IV Last administered on at 14:30; Start 08/16/18 at 14:30; Stop 08/16/18 at 15:29; Status DC Ondansetron HCl (Zofran) 4 mg 1X ONCE IV Last administered on 08/16/18at 14:54 ; Start 08/16/18 at 15:00; Stop 08/16/18 at 15:01; Status DC Meclizine HCl (Antivert) 25 mg 1X ONCE PO Last administered on 08/16/18at 14:45 ; Start 08/16/18 at 14:45; Stop 08/16/18 at 14:46; Status DC Labetalol HCl (Normodyne Iv Push) 10 mg 1X ONCE IVP Last administered on at 14:45; Start 08/16/18 at 14:45; Stop 08/16/18 at 14:46; Status DC Fentanyl Citrate (Fentanyl 2ml Vial) 75 mcg 1X ONCE IV Last administered on at 15:15; Start 08/16/18 at 15:15; Stop 08/16/18 at 15:16; Status DC Famotidine (Pepcid Vial) 20 mg 1X ONCE IVP Last administered on 08/16/18at 15: 15; Start 08/16/18 at 15:15; Stop 08/16/18 at 15:16; Status DC Hydralazine HCl (Apresoline Inj) 20 mg 1X ONCE IVP Last administered on at 16:07; Start 08/16/18 at 16:00; Stop 08/16/18 at 16:02; Status DC Morphine Sulfate (Morphine Sulfate) 4 mg 1X ONCE IV ; Start 08/16/18 at 16:00; Stop 08/16/18 at 16:00; Status DC Diazepam (Valium) 5 mg 1X ONCE PO Last administered on 08/16/18at 16:07; Start 08/16/18 at 16:00; Stop 08/16/18 at 16:02; Status DC Sodium Chloride 1,000 ml @ 100 mls/hr Q10H IV Last administered on 08/16/18at 16:52; Start 08/16/18 at 16:52; Stop 08/17/18 at 02:52; Status DC Ondansetron HCl (Zofran) 4 mg PRN Q6HRS PRN IV NAUSEA/VOMITING Last administered on 08/17/18at 03:47; Start 08/16/18 at 17:00 Prochlorperazine Edisylate (Compazine) 10 mg PRN Q6HRS PRN IV NAUSEA/VOMITING; Start 08/16/18 at 17:00 Prochlorperazine (Compazine) 25 mg PRN Q12HR PRN [place] NAUSEA/VOMITING; Start at 17:00 Calcium Carbonate/ Glycine (Tums) 500 mg PRN Q3HRS PRN PO UPSET STOMACH; Start 08/16/18 at 17:00 Oxycodone HCl (Roxicodone) 5 mg PRN Q3HRS PRN PO BREAKTHROUGH PAIN; Start 08/16 at 17:00 Acetaminophen/ Hydrocodone Bitart (Lortab 5/325) 1 tab PRN Q4HRS PRN PO MILD PAIN; Start 08/16/18 at 17:00 Acetaminophen (Tylenol) 650 mg PRN Q6HRS PRN PO Headaches, Temp > 101.5F; Start 08/16/18 at 17:00 Magnesium Hydroxide (Milk Of Magnesia) 2,400 mg PRN Q12HR PRN PO CONSTIPATION; Start 08/16/18 at 17:00 Chlordiazepoxide (Librium) 25 mg PRN Q6HRS PRN PO ANXIETY / AGITATION; Start at 17:00 Fentanyl Citrate (Fentanyl 2ml Vial) 50 mcg PRN Q2HR PRN IV PAIN Last administered on 08/17/18 09:09; Start 08/16/18 at 17:00 Alprazolam (Xanax) 0.25 mg PRN Q8HRS PRN PO ANXIETY / AGITATION Last administered on 08/16/18 21:37; Start 08/16/18 at 17:00 Zolpidem Tartrate (Ambien) 5 mg PRN QHS PRN PO INSOMNIA Last administered on 21:37; Start 08/16/18 at 17:00 Multivitamins 10 ml/Folic Acid 1 mg/Sodium Chloride 1,010.2 ml @ 999.099 mls/ hr 1X ONCE IV Last administered on 08/16/18 17:25; Start 08/16/18 at 17:00; Stop 08/16/18 at 18:00; Status DC Multivitamins (Thera M Plus) 1 tab DAILY PO Last administered on 08/17/18 09: 05; Start 08/17/18 at 09:00 Thiamine Mononitrate (Vitamin B-1) 100 mg DAILY PO Last administered on 09:05; Start 08/17/18 at 09:00 Folic Acid (Folic Acid) 1 mg DAILY PO Last administered on 08/17/18 09:05; Start 08/17/18 at 09:00 Labetalol HCl (Normodyne Iv Push) 20 mg PRN Q2HR PRN IVP HYPERTENSION, SEE COMMENTS Last administered on 08/17/18at 03:41; Start 08/16/18 at 17:00 Amlodipine Besylate (Norvasc) 10 mg DAILY PO Last administered on 08/17/18 09: 05; Start 08/17/18 at 09:00 Duloxetine HCl (Cymbalta) 90 mg DAILY PO Last administered on 08/17/18at 09:07; Start 08/17/18 at 09:00 Lactobacillus Rhamnosus (Culturelle) 1 cap BID PO Last administered on at 09:05; Start 08/16/18 at 21:00 Ondansetron HCl (Zofran Odt) 4 mg PRN Q8HRS PRN PO NAUSEA; Start 08/16/18 at 17 :00 Oxycodone/ Acetaminophen (Percocet 7.5/ 325) 1 tab PRN QID PRN PO PAIN SEVERE; Start 08/16/18 at 17:00 Albuterol Sulfate (Ventolin Neb Soln) 2.5 mg Q4HRS NEB ; Start 08/16/18 at 20:00 ; Stop 08/16/18 at 20:00; Status DC Benzonatate (Tessalon Perle) 100 mg PRN TID PRN PO COUGH; Start 08/16/18 at 21: 00 Pantoprazole Sodium (Protonix) 40 mg DAILYAC PO Last administered on 08/17/18at 09:07; Start 08/17/18 at 07:30 Meclizine HCl (Antivert) 25 mg PRN Q8HRS PRN PO DIZZINESS Last administered on 08/17/18at 09:07; Start 08/16/18 at 17:30 Prochlorperazine Edisylate (Compazine) 10 mg PRN Q6HRS PRN IV NAUSEA/VOMITING; Start 08/16/18 at 17:00 Thiamine Mononitrate (Vitamin B-1) 100 mg ONCE ONCE PO Last administered on at 17:25; Start 08/16/18 at 17:15; Stop 08/16/18 at 17:25; Status DC Ondansetron HCl (Zofran) 4 mg PRN Q8HRS PRN IV NAUSEA/VOMITING; Start 08/16/18 at 17:30; Stop 08/17/18 at 17:29 Albuterol Sulfate (Ventolin Neb Soln) 2.5 mg PRN Q4HRS PRN NEB WHEEZING; Start 08/16/18 at 18:00 Active Scripts Active Macrobid 100 Mg Capsule (Nitrofurantoin Monohyd/M-Cryst) 100 Mg Capsule 1 Cap PO BID Medrol (Methylprednisolone) 4 Mg Tab.ds.pk 1 Pkg PO UD Orphenadrine Citrate 100 Mg Tablet.er 100 Mg PO BID Meclizine Hcl 25 Mg Tablet 25 Mg PO PRN TID PRN dizziness Tessalon Perle (Benzonatate) 100 Mg Capsule 1 Cap PO TID PRN Ventolin Hfa Inhaler (Albuterol Sulfate) 18 Gm Hfa.aer.ad 2 Puff INH Q4HRS 30 Days Culturelle (Lactobacillus Rhamnosus Gg) 1 Each Cap.sprink 1 Cap PO BID 14 Days [Ceftriaxone Sodium] 1 GM Vial 1 Gm IVP Q24H 7 Days Zofran Odt (Ondansetron) 4 Mg Tab.rapdis 1 Tab SL Q8HRS PRN Zofran Odt (Ondansetron) 4 Mg Tab.rapdis 1 Tab SL Q8HRS Percocet 7.5-325 Mg Tablet (Oxycodone/Acetaminophen) 1 Each Tablet 1 Tab PO QID Cymbalta (Duloxetine Hcl) 30 Mg Capsule. 90 Mg PO DAILY 30 Days Reported Amlodipine Besylate 10 Mg Tablet 10 Mg PO DAILY Nexium Capsule (Esomeprazole Magnesium) 40 Mg Capsule. 1 Cap PO DAILY Vitals/I & O Vital Sign - Last 24 Hours 08/16/18 08/16/18 08/16/18 08/16/18 13:20 13:30 14:00 14:30 Temp 99.3 99.3 Pulse 110 113 101 101 Resp 18 18 18 19 B/P (MAP) 149/75 (99) Pulse Ox 98 99 99 98 O2 Delivery Room Air 08/16/18 08/16/18 08/16/18 08/16/18 14:45 15:00 15:15 15:30 Pulse 111 97 88 Resp 20 19 20 B/P (MAP) 223/117 Pulse Ox 97 98 98 08/16/18 08/16/18 08/16/18 08/16/18 16:07 16:11 16:38 16:54 Pulse 90 124 121 Resp 20 21 21 B/P (MAP) 214/110 Pulse Ox 99 99 99 O2 Delivery Room Air 08/16/18 08/16/18 08/16/18 08/16/18 17:24 17:25 19:00 19:30 Temp 99.0 99.0 Pulse 121 107 Resp 20 19 18 B/P (MAP) 199/124 (149) Pulse Ox 98 97 97 O2 Delivery Room Air Room Air Room Air 08/16/18 08/16/18 08/16/18 08/16/18 19:43 19:44 21:43 23:00 Temp 99.2 99.2 Pulse 107 80 Resp 18 B/P (MAP) 199/124 147/84 (105) Pulse Ox 95 O2 Delivery Room Air Room Air Room Air 08/17/18 08/17/18 08/17/18 08/17/18 00:52 03:00 03:40 03:41 Temp 98.9 98.9 Pulse 80 80 Resp 18 B/P (MAP) 162/90 (114) 162/90 Pulse Ox 97 O2 Delivery Room Air Room Air Room Air 08/17/18 08/17/18 08/17/18 08/17/18 04:15 06:47 07:00 09:05 Temp 98.5 98.5 Pulse 82 82 Resp 24 B/P (MAP) 159/98 (118) 159/98 Pulse Ox 97 O2 Delivery Room Air Room Air Room Air 08/17/18 09:09 Resp 20 Pulse Ox 97 O2 Delivery Room Air Intake and Output 08/16/18 08/16/18 08/17/18 14:59 22:59 06:59 Intake Total 1000 ml Balance 1000 ml WEI COLLINS MD Aug 17, 2018 10:46
[2018-08-17] MEDS ORDERED: POTASSIUM CHLORIDE 20 MEQ TABLET.ER. PO ONE (11:00)
[2018-08-17 11:03] VITALS: BP 169/104
[2018-08-17] MEDS ORDERED: cefTRIAXone IV Push 1 GM VIAL. IVP SCH (11:30)
[2018-08-17] MEDS: HYDROmorphone 2 MG/ML VIAL IV PRN ×3 (12:38→21:11)
[2018-08-17 15:00] VITALS: BP 157/99
[2018-08-17 17:06] LABS: MAGNESIUM 1.6 mg/dL (1.8-2.4); PHOSPHORUS 3.4 mg/dL (2.6-4.7)
[2018-08-17 19:00] VITALS: BP 168/96
[2018-08-17 22:53] VITALS: BP 126/81
[2018-08-18 03:00] VITALS: BP 146/87
[2018-08-18] MEDS: HYDROmorphone 2 MG/ML VIAL IV PRN ×5 (04:38→22:48)
[2018-08-18 07:00] VITALS: BP 159/97
--- NOTE | 2018-08-18 07:39 | PDOC ---
PROGRESS NOTES Chief Complaint Chief Complaint intractable vomiting hypokalemia, volume depleted CKD- HTN emergency POA - SIRS possible sepsis on admission- History of VRE UTI was sensitive to Zyvox-in past Alcohol dependence Depression NOS Narcotic dependence hx Low lumbar spine postoperative spinal fusion noted with degenerative space narrowing at multiple levels. HX neurogenic bladder - self caths GERD History of Present Illness History of Present Illness 62-year-old female known to the hospital for chronic vomiting, chronic UTI from intermittently self caths, narcotic dependence. Creatinine is baseline of 1.5 - she has an element of CK D. Cr. climbed to 2.1 and her bladder noted full of air and some urine, distended. She has a history of VRE UTI known to infectious disease. Her blood pressure was 220 systolic on arrival. ER gave 2 blood pressure meds and now 170-180 systolic. Vomited yesterday evening did not eat. Still with some abdominal pain. Cr 2.2 today. She still has no appetite. PLAN: Hydrate, nausea meds, iv fluids UA is dirty will need Zyvox/ID consult given complicated UTI hx Insert kerns liquid diet for now then ADA control blood pressure Alcohol cessation advised CIWA protocol Librium prn PPI etc. and other supportive meds Vitals Vitals Vital Signs Date Time Temp Pulse Resp B/P (MAP) Pulse Ox O2 Delivery O2 Flow Rate FiO2 08/18/18 05:15 Room Air 08/18/18 03:00 98.4 82 18 146/87 (106) 94 98.4 Physical Exam Physical Exam Physical Exam General: No acute distress, HEENT: Atraumatic, PERRLA, EOMI Lungs: Clear to auscultation, Normal air movement Heart: S1S2, no thrills, no rubs, no gallops, no murmurs, Abdomen: Soft, Rectal Exam: not examined Extremities: No clubbing, No cyanosis, No edema, Normal pulses, No tenderness/ swelling Skin: No rashes, No breakdown, No significant lesion Neuro: Normal gait, Normal speech, Strength at 5/5 X4 ext, Normal tone, Sensation intact, Cranial nerves 3-12 NL, Reflexes 2+ Psych/Mental Status: Mental status NL, Mood NL General: Alert, Oriented X3, Cooperative, No acute distress, mild distress, Other (very shaky) Heart: Regular rate, No murmurs Lungs: Clear Abdomen: Normal bowel sounds, Soft, No tenderness, No hepatosplenomegaly, Other (nl bowel sounds) Extremities: No clubbing, No cyanosis, No edema, Normal pulses, No tenderness/ swelling Skin: No rashes, No breakdown, No significant lesion Assessment and Plan Assessmemt and Plan Problems Medical Problems: (1) Chronic back pain Status: Acute (2) Dizziness Status: Acute (3) Hypertensive urgency Status: Acute Comment Review of Relevant I have reviewed the following items blade (where applicable) has been applied. Labs Laboratory Tests Test 08/16/18 14:15 08/16/18 19:50 08/16/18 21:00 08/17/18 00:01 White Blood Count 5.0 x10^3/uL (4.0-11.0) Red Blood Count 4.51 x10^6/uL (3.50-5.40) Hemoglobin 12.0 g/dL (12.0-15.5) Hematocrit 37.4 % (36.0-47.0) Mean Corpuscular Volume 83 fL (79-100) Mean Corpuscular Hemoglobin 27 pg (25-35) Mean Corpuscular Hemoglobin Concent 32 g/dL (31-37) Red Cell Distribution Width 19.7 % (11.5-14.5) Platelet Count 198 x10^3/uL (140-400) Neutrophils (%) (Auto) 83 % (31-73) Lymphocytes (%) (Auto) 10 % (24-48) Monocytes (%) (Auto) 6 % (0-9) Eosinophils (%) (Auto) 0 % (0-3) Basophils (%) (Auto) 1 % (0-3) Neutrophils # (Auto) 4.1 x10^3uL (1.8-7.7) Lymphocytes # (Auto) 0.5 x10^3/uL (1.0-4.8) Monocytes # (Auto) 0.3 x10^3/uL (0.0-1.1) Eosinophils # (Auto) 0.0 x10^3/uL (0.0-0.7) Basophils # (Auto) 0.1 x10^3/uL (0.0-0.2) Sodium Level 140 mmol/L (136-145) Potassium Level 4.1 mmol/L (3.5-5.1) Chloride Level 100 mmol/L (98-107) Carbon Dioxide Level 23 mmol/L (21-32) Anion Gap 17 (6-14) Blood Urea Nitrogen 16 mg/dL (7-20) Creatinine 2.0 mg/dL (0.6-1.0) Estimated GFR (Cockcroft-Gault) 25.3 BUN/Creatinine Ratio 8 (6-20) Glucose Level 128 mg/dL (70-99) Calcium Level 10.7 mg/dL (8.5-10.1) Magnesium Level 1.7 mg/dL (1.8-2.4) Total Bilirubin 0.7 mg/dL (0.2-1.0) Aspartate Amino Transf (AST/SGOT) 25 U/L (15-37) Alanine Aminotransferase (ALT/SGPT) 17 U/L (14-59) Alkaline Phosphatase 134 U/L (46-116) Creatine Kinase 60 U/L (26-192) Creatine Kinase MB (Mass) 2.1 ng/mL (0.0-3.6) Creatine Kinase MB Relative Index % (0-4) Troponin I Quantitative < 0.017 ng/mL (0.000-0.055) 0.023 ng/mL (0.000-0.055) < 0.017 ng/mL (0.000-0.055) Total Protein 9.0 g/dL (6.4-8.2) Albumin 3.4 g/dL (3.4-5.0) Albumin/Globulin Ratio 0.6 (1.0-1.7) Ethyl Alcohol Level < 10 mg/dL (0-10) Urine Collection Type Unknown Urine Color Yellow Urine Clarity Clear Urine pH 7.0 Urine Specific [place] <=1.005 Urine Protein 100 mg/dL (NEG-TRACE) Urine Glucose (UA) Negative mg/dL (NEG) Urine Ketones (Stick) Negative mg/dL (NEG) Urine Blood Trace (NEG) Urine Nitrite Negative (NEG) Urine Bilirubin Negative (NEG) Urine Urobilinogen Dipstick 0.2 mg/dL (0.2 mg/dL) Urine Leukocyte Esterase Moderate (NEG) Urine RBC 0 /HPF (0-2) Urine WBC >40 /HPF (0-4) Urine Bacteria Many /HPF (0-FEW) Test 2/17/19 04:05 White Blood Count 5.0 x10^3/uL (4.0-11.0) Red Blood Count 3.47 x10^6/uL (3.50-5.40) Hemoglobin 9.4 g/dL (12.0-15.5) Hematocrit 29.4 % (36.0-47.0) Mean Corpuscular Volume 85 fL (79-100) Mean Corpuscular Hemoglobin 27 pg (25-35) Mean Corpuscular Hemoglobin Concent 32 g/dL (31-37) Red Cell Distribution Width 19.6 % (11.5-14.5) Platelet Count 142 x10^3/uL (140-400) Neutrophils (%) (Auto) 58 % (31-73) Lymphocytes (%) (Auto) 29 % (24-48) Monocytes (%) (Auto) 12 % (0-9) Eosinophils (%) (Auto) 1 % (0-3) Basophils (%) (Auto) 1 % (0-3) Neutrophils # (Auto) 2.9 x10^3uL (1.8-7.7) Lymphocytes # (Auto) 1.5 x10^3/uL (1.0-4.8) Monocytes # (Auto) 0.6 x10^3/uL (0.0-1.1) Eosinophils # (Auto) 0.1 x10^3/uL (0.0-0.7) Basophils # (Auto) 0.0 x10^3/uL (0.0-0.2) Sodium Level 138 mmol/L (136-145) Potassium Level 3.2 mmol/L (3.5-5.1) Chloride Level 102 mmol/L (98-107) Carbon Dioxide Level 22 mmol/L (21-32) Anion Gap 14 (6-14) Blood Urea Nitrogen 14 mg/dL (7-20) Creatinine 2.1 mg/dL (0.6-1.0) Estimated GFR (Cockcroft-Gault) 23.9 Glucose Level 90 mg/dL (70-99) Calcium Level 8.9 mg/dL (8.5-10.1) Phosphorus Level 3.4 mg/dL (2.6-4.7) Magnesium Level 1.6 mg/dL (1.8-2.4) Medications Current Medications Sodium Chloride 1,000 ml @ 1,000 mls/hr 1X ONCE IV Last administered on 14:30; Start 08/16/18 at 14:30; Stop 08/16/18 at 15:29; Status DC Ondansetron HCl (Zofran) 4 mg 1X ONCE IV Last administered on 08/16/18 14:54 ; Start 08/16/18 at 15:00; Stop 08/16/18 at 15:01; Status DC Meclizine HCl (Antivert) 25 mg 1X ONCE PO Last administered on 08/16/18at 14:45 ; Start 08/16/18 at 14:45; Stop 08/16/18 at 14:46; Status DC Labetalol HCl (Normodyne Iv Push) 10 mg 1X ONCE IVP Last administered on 14:45; Start 08/16/18 at 14:45; Stop 08/16/18 at 14:46; Status DC Fentanyl Citrate (Fentanyl 2ml Vial) 75 mcg 1X ONCE IV Last administered on at 15:15; Start 08/16/18 at 15:15; Stop 08/16/18 at 15:16; Status DC Famotidine (Pepcid Vial) 20 mg 1X ONCE IVP Last administered on 08/16/18at 15: 15; Start 08/16/18 at 15:15; Stop 08/16/18 at 15:16; Status DC Hydralazine HCl (Apresoline Inj) 20 mg 1X ONCE IVP Last administered on at 16:07; Start 08/16/18 at 16:00; Stop 08/16/18 at 16:02; Status DC Morphine Sulfate (Morphine Sulfate) 4 mg 1X ONCE IV ; Start 08/16/18 at 16:00; Stop 08/16/18 at 16:00; Status DC Diazepam (Valium) 5 mg 1X ONCE PO Last administered on 08/16/18at 16:07; Start 08/16/18 at 16:00; Stop 08/16/18 at 16:02; Status DC Sodium Chloride 1,000 ml @ 100 mls/hr Q10H IV Last administered on 08/16/18at 16:52; Start 08/16/18 at 16:52; Stop 08/17/18 at 02:52; Status DC Ondansetron HCl (Zofran) 4 mg PRN Q6HRS PRN IV NAUSEA/VOMITING Last administered on 08/17/18at 12:38; Start 08/16/18 at 17:00 Prochlorperazine Edisylate (Compazine) 10 mg PRN Q6HRS PRN IV NAUSEA/VOMITING; Start 08/16/18 at 17:00; Stop 08/17/18 at 16:55; Status DC Prochlorperazine (Compazine) 25 mg PRN Q12HR PRN DC NAUSEA/VOMITING; Start at 17:00 Calcium Carbonate/ Glycine (Tums) 500 mg PRN Q3HRS PRN PO UPSET STOMACH; Start 08/16/18 at 17:00 Oxycodone HCl (Roxicodone) 5 mg PRN Q3HRS PRN PO BREAKTHROUGH PAIN; Start 08/16 at 17:00 Acetaminophen/ Hydrocodone Bitart (Lortab 5/325) 1 tab PRN Q4HRS PRN PO MILD PAIN; Start 08/16/18 at 17:00 Acetaminophen (Tylenol) 650 mg PRN Q6HRS PRN PO Headaches, Temp > 101.5F; Start 08/16/18 at 17:00 Magnesium Hydroxide (Milk Of Magnesia) 2,400 mg PRN Q12HR PRN PO CONSTIPATION; Start 08/16/18 at 17:00 Chlordiazepoxide (Librium) 25 mg PRN Q6HRS PRN PO ANXIETY / AGITATION, 2ND CHOIC; Start 08/16/18 at 17:00 Fentanyl Citrate (Fentanyl 2ml Vial) 50 mcg PRN Q2HR PRN IV PAIN Last administered on 08/17/18at 09:09; Start 08/16/18 at 17:00; Stop 08/17/18 at 11:00 ; Status DC Alprazolam (Xanax) 0.25 mg PRN Q8HRS PRN PO ANXIETY / AGITATION, 1ST CHOIC Last administered on 08/17/18at 09:00; Start 08/16/18 at 17:00 Zolpidem Tartrate (Ambien) 5 mg PRN QHS PRN PO INSOMNIA Last administered on at 21:37; Start 08/16/18 at 17:00 Multivitamins 10 ml/Folic Acid 1 mg/Sodium Chloride 1,010.2 ml @ 999.099 mls/ hr 1X ONCE IV Last administered on 08/16/18at 17:25; Start 08/16/18 at 17:00; Stop 08/16/18 at 18:00; Status DC Multivitamins (Thera M Plus) 1 tab DAILY PO Last administered on 08/17/18at 09: 05; Start 08/17/18 at 09:00 Thiamine Mononitrate (Vitamin B-1) 100 mg DAILY PO Last administered on at 09:05; Start 08/17/18 at 09:00 Folic Acid (Folic Acid) 1 mg DAILY PO Last administered on 08/17/18at 09:05; Start 08/17/18 at 09:00 Labetalol HCl (Normodyne Iv Push) 20 mg PRN Q2HR PRN IVP HYPERTENSION, SEE COMMENTS Last administered on 08/17/18at 21:11; Start 08/16/18 at 17:00 Amlodipine Besylate (Norvasc) 10 mg DAILY PO Last administered on 08/17/18at 09: 05; Start 08/17/18 at 09:00 Duloxetine HCl (Cymbalta) 90 mg DAILY PO Last administered on 08/17/18at 09:07; Start 08/17/18 at 09:00 Lactobacillus Rhamnosus (Culturelle) 1 cap BID PO Last administered on at 21:10; Start 08/16/18 at 21:00 Ondansetron HCl (Zofran Odt) 4 mg PRN Q8HRS PRN PO NAUSEA; Start 08/16/18 at 17 :00 Oxycodone/ Acetaminophen (Percocet 7.5/ 325) 1 tab PRN QID PRN PO PAIN SEVERE; Start 08/16/18 at 17:00 Albuterol Sulfate (Ventolin Neb Soln) 2.5 mg Q4HRS NEB ; Start 08/16/18 at 20:00 ; Stop 08/16/18 at 20:00; Status DC Benzonatate (Tessalon Perle) 100 mg PRN TID PRN PO COUGH; Start 08/16/18 at 21: 00 Pantoprazole Sodium (Protonix) 40 mg DAILYAC PO Last administered on 08/17/18at 09:07; Start 08/17/18 at 07:30 Meclizine HCl (Antivert) 25 mg PRN Q8HRS PRN PO DIZZINESS Last administered on 08/17/18at 09:07; Start 08/16/18 at 17:30 Prochlorperazine Edisylate (Compazine) 10 mg PRN Q6HRS PRN IV NAUSEA/VOMITING; Start 08/16/18 at 17:00 Thiamine Mononitrate (Vitamin B-1) 100 mg ONCE ONCE PO Last administered on at 17:25; Start 08/16/18 at 17:15; Stop 08/16/18 at 17:25; Status DC Ondansetron HCl (Zofran) 4 mg PRN Q8HRS PRN IV NAUSEA/VOMITING; Start 08/16/18 at 17:30; Stop 08/17/18 at 17:29; Status DC Albuterol Sulfate (Ventolin Neb Soln) 2.5 mg PRN Q4HRS PRN NEB WHEEZING; Start 08/16/18 at 18:00 Ceftriaxone Sodium (Rocephin) 1 gm Q24H IVP ; Start 08/17/18 at 11:30; Stop at 11:30; Status DC Potassium Chloride (Klor-Con) 40 meq 1X ONCE PO Last administered on at 13:07; Start 08/17/18 at 11:00; Stop 08/17/18 at 11:01; Status DC Potassium Chloride (Klor-Con) 20 meq DAILYWBKFT PO ; Start 08/18/18 at 08:00 Linezolid/Dextrose 300 ml @ 300 mls/hr Q12HR IV Last administered on at 21:33; Start 08/17/18 at 12:00 Hydromorphone HCl (Dilaudid) 1 mg PRN Q4HRS PRN IV PAIN Last administered on at 04:38; Start 08/17/18 at 11:15 Active Scripts Active Macrobid 100 Mg Capsule (Nitrofurantoin Monohyd/M-Cryst) 100 Mg Capsule 1 Cap PO BID Medrol (Methylprednisolone) 4 Mg Tab.ds.pk 1 Pkg PO UD Orphenadrine Citrate 100 Mg Tablet.er 100 Mg PO BID Meclizine Hcl 25 Mg Tablet 25 Mg PO PRN TID PRN dizziness Tessalon Perle (Benzonatate) 100 Mg Capsule 1 Cap PO TID PRN Ventolin Hfa Inhaler (Albuterol Sulfate) 18 Gm Hfa.aer.ad 2 Puff INH Q4HRS 30 Days Culturelle (Lactobacillus Rhamnosus Gg) 1 Each Cap.sprink 1 Cap PO BID 14 Days [Ceftriaxone Sodium] 1 GM Vial 1 Gm IVP Q24H 7 Days Zofran Odt (Ondansetron) 4 Mg Tab.rapdis 1 Tab SL Q8HRS PRN Zofran Odt (Ondansetron) 4 Mg Tab.rapdis 1 Tab SL Q8HRS Percocet 7.5-325 Mg Tablet (Oxycodone/Acetaminophen) 1 Each Tablet 1 Tab PO QID Cymbalta (Duloxetine Hcl) 30 Mg Capsule. 90 Mg PO DAILY 30 Days Reported Amlodipine Besylate 10 Mg Tablet 10 Mg PO DAILY Nexium Capsule (Esomeprazole Magnesium) 40 Mg Capsule. 1 Cap PO DAILY Vitals/I & O Vital Sign - Last 24 Hours 08/17/18 08/17/18 08/17/18 08/17/18 08:00 09:05 09:09 11:03 Temp 98.6 98.6 Pulse 82 87 Resp 20 24 B/P (MAP) 159/98 169/104 (125) Pulse Ox 97 95 O2 Delivery Room Air Room Air Room Air 08/17/18 08/17/18 08/17/18 08/17/18 12:38 13:08 15:00 16:57 Temp 98.8 98.8 Pulse 85 Resp 20 20 22 B/P (MAP) 157/99 (118) Pulse Ox 96 96 O2 Delivery Room Air Room Air Room Air 08/17/18 08/17/18 08/17/18 08/17/18 19:00 19:27 21:11 21:11 Temp 98.2 98.2 Pulse 85 85 Resp 18 B/P (MAP) 168/96 (120) 168/96 Pulse Ox 91 O2 Delivery Room Air Room Air Room Air 08/17/18 08/18/18 08/18/18 08/18/18 22:53 03:00 04:38 05:15 Temp 98.3 98.4 98.3 98.4 Pulse 73 82 Resp 18 18 B/P (MAP) 126/81 (96) 146/87 (106) Pulse Ox 93 94 O2 Delivery Room Air Room Air Room Air Room Air Intake and Output 08/17/18 08/17/18 08/18/18 14:59 22:59 06:59 Intake Total 300 ml Balance 300 ml DEN PACHECO MD Aug 18, 2018 07:39
[2018-08-18 08:09] LABS: ALBUMIN 2.8 g/dL (3.4-5.0); ALBUMIN/GLOBULIN RATIO 0.6 (1.0-1.7); CALCIUM 9.7 mg/dL (8.5-10.1); CREATININE 2.2 mg/dL (0.6-1.0); GFR 22.7; POTASSIUM 3.9 mmol/L (3.5-5.1); TOTAL BILIRUBIN 0.3 mg/dL (0.2-1.0); TOTAL PROTEIN 7.4 g/dL (6.4-8.2)
[2018-08-18] MEDS: PANTOPRAZOLE 40 MG TABLET.DR. PO SCH (08:40)
[2018-08-18] MEDS: POTASSIUM CHLORIDE 20 MEQ TABLET.ER. PO SCH (08:41)
[2018-08-18] MEDS: LACTOBACILLUS RHAMNOSUS GG 1 CAPSULE. PO SCH ×2 (08:42→22:01)
[2018-08-18] MEDS: DULoxetine HCL 30 MG CAPSULE.DR PO SCH (08:43)
[2018-08-18] MEDS: FOLIC ACID 1 MG TABLET. PO SCH (08:44)
[2018-08-18] MEDS: MULTIVITAMIN with MINERAL TABLET. PO SCH (08:44)
[2018-08-18] MEDS: amLODIPine BESYLATE 10 MG TABLET PO SCH (08:44)
[2018-08-18] MEDS: THIAMINE 100 MG TABLET. PO SCH (08:45)
[2018-08-18] MEDS: MECLIZINE HCL 12.5 MG TABLET. PO PRN (08:46)
--- NOTE | 2018-08-18 09:19 | PDOC ---
SUBJECTIVE Subjective Document entered in error. Please see Urology Consult note dated today. OBJECTIVE Objective Vital Signs Vital Signs Date Time Temp Pulse Resp B/P (MAP) Pulse Ox O2 Delivery O2 Flow Rate FiO2 08/18/18 08:47 20 94 Room Air 08/18/18 08:44 76 159/97 08/18/18 07:00 97.8 76 18 159/97 (117) 94 Room Air 97.8 08/18/18 05:15 Room Air 08/18/18 04:38 Room Air 08/18/18 03:00 98.4 82 18 146/87 (106) 94 Room Air 98.4 08/17/18 22:53 98.3 73 18 126/81 (96) 93 Room Air 98.3 08/17/18 21:11 Room Air 08/17/18 21:11 85 168/96 08/17/18 19:27 Room Air 08/17/18 19:00 98.2 85 18 168/96 (120) 91 Room Air 98.2 08/17/18 16:57 Room Air 08/17/18 15:00 98.8 85 22 157/99 (118) 96 Room Air 98.8 08/17/18 13:08 20 96 08/17/18 12:38 20 Room Air 08/17/18 11:03 98.6 87 24 169/104 (125) 95 Room Air 98.6 I & O Intake and Output 08/18/18 06:59 Intake Total 300 ml Balance 300 ml Intake IV Total 300 ml # Voids 2 ASSESSMENT/PLAN Assessment/Plan Document entered in error. Please see Urology Consult note dated today. COMMENT Lab Laboratory Tests Test 08/18/18 07:05 Sodium Level 136 mmol/L (136-145) Potassium Level 3.9 mmol/L (3.5-5.1) Chloride Level 102 mmol/L (98-107) Carbon Dioxide Level 23 mmol/L (21-32) Anion Gap 11 (6-14) Blood Urea Nitrogen 11 mg/dL (7-20) Creatinine 2.2 mg/dL (0.6-1.0) Estimated GFR (Cockcroft-Gault) 22.7 BUN/Creatinine Ratio 5 (6-20) Glucose Level 99 mg/dL (70-99) Calcium Level 9.7 mg/dL (8.5-10.1) Total Bilirubin 0.3 mg/dL (0.2-1.0) Aspartate Amino Transf (AST/SGOT) 21 U/L (15-37) Alanine Aminotransferase (ALT/SGPT) 13 U/L (14-59) Alkaline Phosphatase 97 U/L (46-116) Total Protein 7.4 g/dL (6.4-8.2) Albumin 2.8 g/dL (3.4-5.0) Albumin/Globulin Ratio 0.6 (1.0-1.7) CAROL MORENO APRN Aug 18, 2018 09:19
--- NOTE | 2018-08-18 09:30 | NUR ---
16 [place] kerns catheter with 10ml balloon placed at 0910 am. Pt shellie well 700 ml tatiana color urine returned. Stat lock placed to secure kerns.
--- NOTE | 2018-08-18 09:35 | PDOC2 ---
UROLOGY CONSULT Date of Consult Date of Consult DATE: 08/18/18 TIME: 09:29 Reason for Consult Reason for Consult: Chronic Urinary Retention, Air in bladder. Identification/Chief Complaint Chief Complaint Air in bladder, chronic urinary retention Source Source: Chart review, Patient History of Present Illness Reason for Visit: This 62 year old female is well known to us and a patient of Dr. Coreas. She has chronic urinary retention for which several interventions have been tried. She had an SP tube in May of 2018 which she was not able to tolerate due to pain. Then she tried I and O cathing, which she admits doing well with currently. She does urinate some naturally, but ends up cathing about 2-3 times a day to help herself empty completely. We have had mixed compliance from patient in the past with regard to this. She came into the ED with dizziness, nausea, vomiting, fevers, chills, and on imaging she was found to have air in the bladder and so Urology was consulted. Past Medical History Cardiovascular: HTN, Hyperlipidemia Pulmonary: No pertinent hx GI: GERD, Other Heme/Onc: Anemia NOS Hepatobiliary: Other Psych: Anxiety, Depression Rheumatologic: Fibromyalgia Infectious disease: No pertinent hx, Other Renal/: Chronic renal insuff, Other Past Surgical History Past Surgical History: Total knee replacement, Tubal Ligation, Other ( suprapubic cath placement and taken down afoter few weeks ) Family History Family History: Heart Disease, Hypertension Social History No ALCOHOL: heavy Drugs: Marijuana Lives: Alone Current Problem List Problems: (1) Drummond catheter in place (2) Urinary retention Current Medications Current Medications Current Medications Ceftriaxone Sodium (Rocephin) 1 gm Q24H IVP ; Start 08/17/18 at 11:30; Stop at 11:30; Status DC Hydromorphone HCl (Dilaudid) 1 mg PRN Q4HRS PRN IV PAIN Last administered on at 08:47; Start 08/17/18 at 11:15 Linezolid/Dextrose 300 ml @ 300 mls/hr Q12HR IV Last administered on at 08:42; Start 08/17/18 at 12:00 Potassium Chloride (Klor-Con) 20 meq DAILYWBKFT PO Last administered on at 08:41; Start 08/18/18 at 08:00 Potassium Chloride (Klor-Con) 40 meq 1X ONCE PO Last administered on at 13:07; Start 08/17/18 at 11:00; Stop 08/17/18 at 11:01; Status DC Allergies Allergies: Coded Allergies: levofloxacin (Verified Allergy, Intermediate, 01/23/18) TOLERATES CIPRO I S O L A T I O N *CONTACT* (Verified Allergy, Unknown, 04/14/18) mrsa, chronic C.diff diphenhydramine HCl (Verified Adverse Reaction, Intermediate, "Jittery on the inside", 01/23/18) morphine (Verified Adverse Reaction, Intermediate, BLACKOUT, 08/16/18) REPORTS WHEN GIVEN IV MORPHINE SHE BLACKS OUT. NO ADVERSE REACTION TO ORAL OR IM ROS Review Of Systems: CONSTITUTIONAL: No fever or chills EYES: No recent changes SKIN: No rash or itching CARDIOVASCULAR: No chest pain, syncope, palpitations, or edema RESPIRATORY: No SOB or cough GASTROINTESTINAL: No nausea, vomiting or abdominal pain NEUROLOGICAL: No headaches or weakness ENDOCRINE: No cold or heat intolerance GENITOURINARY: + indwelling Drummond catheter. MUSCULOSKELETAL: No back pain or joint pain LYMPHATICS: No enlarged lymph nodes PSYCHIATRIC: No anxiety or depression Physical Exam Physical Exam: General: Pleasant, no acute distress, well groomed Eyes: conjunctiva anicteric, eyes full range of motion ENT: moist oral mucosa, normal dentition Neck: Trachea midline, no masses Respiratory: unlabored breathing, not using accessory muscles, no crackles or wheezes Cardiovascular: Regular rate and rhythm, no peripheral edema Abdomen: nontender, nondistended, no hepatosplenomegaly, no masses Skin: no rashes or skin lesions on visualized skin Psych: normal mood, affect. Alert and 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. Vitals VITALS Vital Signs Date Time Temp Pulse Resp B/P (MAP) Pulse Ox O2 Delivery O2 Flow Rate FiO2 08/18/18 08:47 20 94 Room Air 08/18/18 08:44 76 159/97 08/18/18 07:00 97.8 97.8 Labs Labs Laboratory Tests Test 08/16/18 14:15 08/16/18 19:50 08/16/18 21:00 08/17/18 00:01 White Blood Count 5.0 x10^3/uL (4.0-11.0) Red Blood Count 4.51 x10^6/uL (3.50-5.40) Hemoglobin 12.0 g/dL (12.0-15.5) Hematocrit 37.4 % (36.0-47.0) Mean Corpuscular Volume 83 fL (79-100) Mean Corpuscular Hemoglobin 27 pg (25-35) Mean Corpuscular Hemoglobin Concent 32 g/dL (31-37) Red Cell Distribution Width 19.7 % (11.5-14.5) Platelet Count 198 x10^3/uL (140-400) Neutrophils (%) (Auto) 83 % (31-73) Lymphocytes (%) (Auto) 10 % (24-48) Monocytes (%) (Auto) 6 % (0-9) Eosinophils (%) (Auto) 0 % (0-3) Basophils (%) (Auto) 1 % (0-3) Neutrophils # (Auto) 4.1 x10^3uL (1.8-7.7) Lymphocytes # (Auto) 0.5 x10^3/uL (1.0-4.8) Monocytes # (Auto) 0.3 x10^3/uL (0.0-1.1) Eosinophils # (Auto) 0.0 x10^3/uL (0.0-0.7) Basophils # (Auto) 0.1 x10^3/uL (0.0-0.2) Sodium Level 140 mmol/L (136-145) Potassium Level 4.1 mmol/L (3.5-5.1) Chloride Level 100 mmol/L (98-107) Carbon Dioxide Level 23 mmol/L (21-32) Anion Gap 17 (6-14) Blood Urea Nitrogen 16 mg/dL (7-20) Creatinine 2.0 mg/dL (0.6-1.0) Estimated GFR (Cockcroft-Gault) 25.3 BUN/Creatinine Ratio 8 (6-20) Glucose Level 128 mg/dL (70-99) Calcium Level 10.7 mg/dL (8.5-10.1) Magnesium Level 1.7 mg/dL (1.8-2.4) Total Bilirubin 0.7 mg/dL (0.2-1.0) Aspartate Amino Transf (AST/SGOT) 25 U/L (15-37) Alanine Aminotransferase (ALT/SGPT) 17 U/L (14-59) Alkaline Phosphatase 134 U/L (46-116) Creatine Kinase 60 U/L (26-192) Creatine Kinase MB (Mass) 2.1 ng/mL (0.0-3.6) Creatine Kinase MB Relative Index % (0-4) Troponin I Quantitative < 0.017 ng/mL (0.000-0.055) 0.023 ng/mL (0.000-0.055) < 0.017 ng/mL (0.000-0.055) Total Protein 9.0 g/dL (6.4-8.2) Albumin 3.4 g/dL (3.4-5.0) Albumin/Globulin Ratio 0.6 (1.0-1.7) Ethyl Alcohol Level < 10 mg/dL (0-10) Urine Collection Type Unknown Urine Color Yellow Urine Clarity Clear Urine pH 7.0 Urine Specific [place] <=1.005 Urine Protein 100 mg/dL (NEG-TRACE) Urine Glucose (UA) Negative mg/dL (NEG) Urine Ketones (Stick) Negative mg/dL (NEG) Urine Blood Trace (NEG) Urine Nitrite Negative (NEG) Urine Bilirubin Negative (NEG) Urine Urobilinogen Dipstick 0.2 mg/dL (0.2 mg/dL) Urine Leukocyte Esterase Moderate (NEG) Urine RBC 0 /HPF (0-2) Urine WBC >40 /HPF (0-4) Urine Bacteria Many /HPF (0-FEW) Test 08/17/18 04:05 08/18/18 07:05 White Blood Count 5.0 x10^3/uL (4.0-11.0) Red Blood Count 3.47 x10^6/uL (3.50-5.40) Hemoglobin 9.4 g/dL (12.0-15.5) Hematocrit 29.4 % (36.0-47.0) Mean Corpuscular Volume 85 fL (79-100) Mean Corpuscular Hemoglobin 27 pg (25-35) Mean Corpuscular Hemoglobin Concent 32 g/dL (31-37) Red Cell Distribution Width 19.6 % (11.5-14.5) Platelet Count 142 x10^3/uL (140-400) Neutrophils (%) (Auto) 58 % (31-73) Lymphocytes (%) (Auto) 29 % (24-48) Monocytes (%) (Auto) 12 % (0-9) Eosinophils (%) (Auto) 1 % (0-3) Basophils (%) (Auto) 1 % (0-3) Neutrophils # (Auto) 2.9 x10^3uL (1.8-7.7) Lymphocytes # (Auto) 1.5 x10^3/uL (1.0-4.8) Monocytes # (Auto) 0.6 x10^3/uL (0.0-1.1) Eosinophils # (Auto) 0.1 x10^3/uL (0.0-0.7) Basophils # (Auto) 0.0 x10^3/uL (0.0-0.2) Sodium Level 138 mmol/L (136-145) 136 mmol/L (136-145) Potassium Level 3.2 mmol/L (3.5-5.1) 3.9 mmol/L (3.5-5.1) Chloride Level 102 mmol/L (98-107) 102 mmol/L (98-107) Carbon Dioxide Level 22 mmol/L (21-32) 23 mmol/L (21-32) Anion Gap 14 (6-14) 11 (6-14) Blood Urea Nitrogen 14 mg/dL (7-20) 11 mg/dL (7-20) Creatinine 2.1 mg/dL (0.6-1.0) 2.2 mg/dL (0.6-1.0) Estimated GFR (Cockcroft-Gault) 23.9 22.7 Glucose Level 90 mg/dL (70-99) 99 mg/dL (70-99) Calcium Level 8.9 mg/dL (8.5-10.1) 9.7 mg/dL (8.5-10.1) Phosphorus Level 3.4 mg/dL (2.6-4.7) Magnesium Level 1.6 mg/dL (1.8-2.4) BUN/Creatinine Ratio 5 (6-20) Total Bilirubin 0.3 mg/dL (0.2-1.0) Aspartate Amino Transf (AST/SGOT) 21 U/L (15-37) Alanine Aminotransferase (ALT/SGPT) 13 U/L (14-59) Alkaline Phosphatase 97 U/L (46-116) Total Protein 7.4 g/dL (6.4-8.2) Albumin 2.8 g/dL (3.4-5.0) Albumin/Globulin Ratio 0.6 (1.0-1.7) Laboratory Tests Test 08/18/18 07:05 Sodium Level 136 mmol/L (136-145) Potassium Level 3.9 mmol/L (3.5-5.1) Chloride Level 102 mmol/L (98-107) Carbon Dioxide Level 23 mmol/L (21-32) Anion Gap 11 (6-14) Blood Urea Nitrogen 11 mg/dL (7-20) Creatinine 2.2 mg/dL (0.6-1.0) Estimated GFR (Cockcroft-Gault) 22.7 BUN/Creatinine Ratio 5 (6-20) Glucose Level 99 mg/dL (70-99) Calcium Level 9.7 mg/dL (8.5-10.1) Total Bilirubin 0.3 mg/dL (0.2-1.0) Aspartate Amino Transf (AST/SGOT) 21 U/L (15-37) Alanine Aminotransferase (ALT/SGPT) 13 U/L (14-59) Alkaline Phosphatase 97 U/L (46-116) Total Protein 7.4 g/dL (6.4-8.2) Albumin 2.8 g/dL (3.4-5.0) Albumin/Globulin Ratio 0.6 (1.0-1.7) Assessment/Plan Assessment/Plan A Drummond has been inserted and this should remain until the patient gets close to discharge. Whenever medical team discharges her home, we can remove the Drummond and provide her with I and O samples to get her home. \\ Discussed above with attending RN. All questions answered. CAROL MORENO APRN Aug 18, 2018 09:35
--- NOTE | 2018-08-18 09:41 | PDOC ---
Infectious Disease Note Vital Sign Vital Signs Vital Signs Date Time Temp Pulse Resp B/P (MAP) Pulse Ox O2 Delivery O2 Flow Rate FiO2 08/18/18 08:47 20 94 Room Air 08/18/18 08:44 76 159/97 08/18/18 07:00 97.8 97.8 Physical Exam PHYSICAL EXAM Physical Exam General: No acute distress, HEENT: Atraumatic, PERRLA, EOMI Lungs: Clear to auscultation, Normal air movement Heart: S1S2, no thrills, no rubs, no gallops, no murmurs, Abdomen: Soft, Rectal Exam: not examined Extremities: No clubbing, No cyanosis, No edema, Normal pulses, No tenderness/ swelling Skin: No rashes, No breakdown, No significant lesion Neuro: Normal gait, Normal speech, Strength at 5/5 X4 ext, Normal tone, Sensation intact, Cranial nerves 3-12 NL, Reflexes 2+ Psych/Mental Status: Mental status NL, Mood NL Labs Lab Laboratory Tests Test 08/18/18 07:05 Sodium Level 136 mmol/L (136-145) Potassium Level 3.9 mmol/L (3.5-5.1) Chloride Level 102 mmol/L (98-107) Carbon Dioxide Level 23 mmol/L (21-32) Anion Gap 11 (6-14) Blood Urea Nitrogen 11 mg/dL (7-20) Creatinine 2.2 mg/dL (0.6-1.0) Estimated GFR (Cockcroft-Gault) 22.7 BUN/Creatinine Ratio 5 (6-20) Glucose Level 99 mg/dL (70-99) Calcium Level 9.7 mg/dL (8.5-10.1) Total Bilirubin 0.3 mg/dL (0.2-1.0) Aspartate Amino Transf (AST/SGOT) 21 U/L (15-37) Alanine Aminotransferase (ALT/SGPT) 13 U/L (14-59) Alkaline Phosphatase 97 U/L (46-116) Total Protein 7.4 g/dL (6.4-8.2) Albumin 2.8 g/dL (3.4-5.0) Albumin/Globulin Ratio 0.6 (1.0-1.7) Micro Impression: No radiopaque collecting system calculi or evidence of obstruction. Gas within the moderately distended urinary bladder is again seen. Correlate with history of intervention. No surrounding inflammatory changes about the urinary bladder. Correlate clinically in determining need for further assessment. Objective Assessment UTI - POA - 2/16 H/o previous Ecoli and Enterococcus CKD HTN N/V/Dizziness POA some better- CT head neg Plan Plan of Care Cont Rocephin/Zyvox for now F/u labs and cults - d/w micro Urine cult is pending Thank you D/c Glory Puckett [facility] Urology # [id number] GILBERTO SEQUEIRA MD Aug 18, 2018 09:41
[2018-08-18 10:15] LABS: BASO % 1 % (0-3); EOS # 0.2 x10^3/uL (0.0-0.7); EOS % 4 % (0-3); HEMATOCRIT 31.6 % (36.0-47.0); LYMPH # 0.8 x10^3/uL (1.0-4.8); LYMPH % 16 % (24-48); MEAN CORPUSCULAR HEMOGLOBIN 27 pg (25-35); MEAN CORPUSCULAR HGB CONC 32 g/dL (31-37); MEAN CORPUSCULAR VOLUME 85 fL (79-100); MONO # 0.4 x10^3/uL (0.0-1.1); MONO % 9 % (0-9); NEUT # 3.5 x10^3uL (1.8-7.7); NEUT % 70 % (31-73); PLATELET COUNT 135 x10^3/uL (140-400); RED BLOOD COUNT 3.72 x10^6/uL (3.50-5.40); RED CELL DISTRIBUTION WIDTH 19.9 % (11.5-14.5)
[2018-08-18] MEDS: ALPRAZolam 0.25 MG TABLET PO PRN ×2 (10:44→22:01)
[2018-08-18] MEDS: cefTRIAXone IV Push 1 GM VIAL. IVP SCH (10:46)
[2018-08-18 10:50] VITALS: BP 137/82
--- NOTE | 2018-08-18 11:09 | NUR ---
IP: Pt has a long hx of chronic C.diff and also has a hx of (R) Enterobacter in urine and + mrsa screens. Pt to be in contact plus precautions for this admission.
--- NOTE | 2018-08-18 13:54 | EKG ---
[facility] [address] [place] [address] Test Date: 2018-08-16 Test Time: 13:49:45 Pat Name: SANTI HERRON Department: Room: 536 1 Gender: Vehicle Return Associate: : 1955 Requested By: PREET DEL RIO Order Number: [id number] Reading MD: Jeff Sanchez Measurements Intervals [place] Rate: P: AL: QRS: QRSD: T: QT: QTc: Interpretive Statements Compared to ECG 06/12/2018 12:14:04 No significant changes Electronically Signed On 08-20-2018 8:55:46 TECHNICAL COMMUNICATION TEACHER by Jeff Sanchez
[2018-08-18 15:00] VITALS: BP 126/76
--- NOTE | 2018-08-18 17:21 | PDOC2 ---
GI CONSULT Reason For Consult: Dysphagia. HPI: HPI: 62 y/o female well known to me. Presented on this occasion as before with N, V , D, recurrent UTI. Asked to see for dysphagia. H/o severe GERD; has had stricture dilated in past. Says compliant with daily PPI and reglan (for gastroparesis). No PUD. No GB, liver, pancreatic history. No tobacco. Formerly abused alcohol. Will have normal stools at home when not ill. H/o C.diff in past. Off and on antibiotics for her recurrent UTI's. Normal colonoscopy 2013 including random biopsies. GIFH negative. No signs/history of active GI bleeding. PMH: PMH: HTN, HLP, CKD, neurogenic bladder with recurrent UTI's/urosepsis, chronic anemia , anxiety/depression, FMS. S/p BTL, TKR, back/foot surgeries. FH: Family History: No pertinent hx Social History: Smoke: No ALCOHOL: heavy Drugs: Marijuana ROS: GEN: Denies fevers, chills, sweats HEENT: Denies blurred vision, sore throat CV: Denies chest pain RESP: Denies shortness of air, cough GI: Per HPI : Denies hematuria, dysuria ENDO: Denies weight changes NEURO: Denies confusion MSK: Denies weakness, joint pain/swelling SKIN: Denies jaundice, pruritus Vitals: Vitals: Vital Signs Date Time Temp Pulse Resp B/P (MAP) Pulse Ox O2 Delivery O2 Flow Rate FiO2 08/18/18 15:00 97.9 80 18 126/76 (93) 92 Room Air 97.9 Labs: Labs: Laboratory Tests Test 08/18/18 07:05 08/18/18 10:00 Sodium Level 136 mmol/L (136-145) Potassium Level 3.9 mmol/L (3.5-5.1) Chloride Level 102 mmol/L (98-107) Carbon Dioxide Level 23 mmol/L (21-32) Anion Gap 11 (6-14) Blood Urea Nitrogen 11 mg/dL (7-20) Creatinine 2.2 mg/dL (0.6-1.0) Estimated GFR (Cockcroft-Gault) 22.7 BUN/Creatinine Ratio 5 (6-20) Glucose Level 99 mg/dL (70-99) Calcium Level 9.7 mg/dL (8.5-10.1) Total Bilirubin 0.3 mg/dL (0.2-1.0) Aspartate Amino Transf (AST/SGOT) 21 U/L (15-37) Alanine Aminotransferase (ALT/SGPT) 13 U/L (14-59) Alkaline Phosphatase 97 U/L (46-116) Total Protein 7.4 g/dL (6.4-8.2) Albumin 2.8 g/dL (3.4-5.0) Albumin/Globulin Ratio 0.6 (1.0-1.7) White Blood Count 5.0 x10^3/uL (4.0-11.0) Red Blood Count 3.72 x10^6/uL (3.50-5.40) Hemoglobin 10.0 g/dL (12.0-15.5) Hematocrit 31.6 % (36.0-47.0) Mean Corpuscular Volume 85 fL (79-100) Mean Corpuscular Hemoglobin 27 pg (25-35) Mean Corpuscular Hemoglobin Concent 32 g/dL (31-37) Red Cell Distribution Width 19.9 % (11.5-14.5) Platelet Count 135 x10^3/uL (140-400) Neutrophils (%) (Auto) 70 % (31-73) Lymphocytes (%) (Auto) 16 % (24-48) Monocytes (%) (Auto) 9 % (0-9) Eosinophils (%) (Auto) 4 % (0-3) Basophils (%) (Auto) 1 % (0-3) Neutrophils # (Auto) 3.5 x10^3uL (1.8-7.7) Lymphocytes # (Auto) 0.8 x10^3/uL (1.0-4.8) Monocytes # (Auto) 0.4 x10^3/uL (0.0-1.1) Eosinophils # (Auto) 0.2 x10^3/uL (0.0-0.7) Basophils # (Auto) 0.0 x10^3/uL (0.0-0.2) Allergies: Coded Allergies: levofloxacin (Verified Allergy, Intermediate, 01/23/18) TOLERATES CIPRO I S O L A T I O N *CONTACT* (Verified Allergy, Unknown, 04/14/18) mrsa, chronic C.diff diphenhydramine HCl (Verified Adverse Reaction, Intermediate, "Jittery on the inside", 01/23/18) morphine (Verified Adverse Reaction, Intermediate, BLACKOUT, 08/16/18) REPORTS WHEN GIVEN IV MORPHINE SHE BLACKS OUT. NO ADVERSE REACTION TO ORAL OR IM Medications: Current Medications Medications (Trade) Dose Ordered Sig/Taz Route PRN Reason Start Time Stop Time Status Last Admin Dose Admin Potassium Chloride (Klor-Con) 20 meq DAILYWBKFT PO 08/18/18 08:00 08/18/18 08:41 Ceftriaxone Sodium (Rocephin) 1 gm Q24H IVP 08/18/18 11:00 08/18/18 10:46 PE: GEN: NAD HEENT: Atraumatic, PERRLA LUNGS: CTAB HEART: RRR, no murmurs ABD: NABS, S/ND/NT, no masses EXTREMITY: No edema SKIN: No rashes, no jaundice NEURO/PSYCH: A & O 3 A/P: A/P: IMP: Dysphagia, probably recurrent stricture. GERD Gastroparesis. H/o C.diff. REC: Continue PPI, metoclopramide, clears for now. EGD in AM. Thank you for allowing me to assist in the care of this patient. Please call if questions. PREET AMEZQUITA MD Aug 18, 2018 17:21
[2018-08-18 19:00] VITALS: BP 129/84
--- NOTE | 2018-08-18 20:45 | CONS ---
DATE OF CONSULTATION: 08/18/2018 INFECTIOUS DISEASE CONSULTATION The patient is in room 506. REQUESTING PHYSICIAN: Dr. Morales. REASON FOR CONSULTATION: UTI, frequency, and self-cath. HISTORY OF PRESENT ILLNESS: The patient is a 62-year-old female with chronic urinary retention complications with neurogenic bladder who at home is supposed to be self cathing. She states for several days she began to feel dizzy and began to vomit. She denies any ill contacts. No fevers, chills or sweats. She denies any change in her urine color or odor. She denies any coughing to the point of vomiting, but she did have some coughing. There has been no blood in her vomit or her cough. She has been having a lot of abdominal discomfort, but does also have a history of gastroparesis. On arrival on the , she had a white count of 5, 83% segs. Urine was concerning for urinary tract infection. Creatinine was 2. CT scan of the head was obtained which was negative. CT scan of the abdomen and pelvis showed some gas within the mildly distended bladder, has been seen before. No surrounding inflammatory changes about the urinary bladder. She was placed on Zyvox as well as Rocephin and admitted to the hospital. This morning, she states she is feeling a little bit better but still feels kind of weak. She did not realize it was Saturday, still thinks it was Saturday. PAST MEDICAL HISTORY: Positive for previous UTIs with enterococcus as well as E coli, history of hypertension, hyperlipidemia, gastroesophageal reflux disease, chronic kidney disease, anemia, anxiety, depression, fibromyalgia, recurrent C diff, history of suprapubic catheter which was removed, history of noncompliance. PAST SURGICAL HISTORY: Positive for suprapubic catheter placement, total knee replacement, tubal ligation. REVIEW OF SYSTEMS: Otherwise negative except for mentioned above. ALLERGIES: LISTED LEVOFLOXACIN BUT SHE HAS TOLERATED CIPRO, MORPHINE IS LISTED AND BENADRYL. SOCIAL HISTORY: She has a history of alcohol abuse. No drugs. Lives with her daughter. Smoking history. FAMILY HISTORY: Noncontributory. CURRENT MEDICATIONS: Include Zyvox, DuoNebs, Xanax, Norvasc, Tessalon Perles, calcium, Librium, Cymbalta, folic acid, labetalol, lactobacillus, Antivert, thiamine, scopolamine, ceftriaxone was dosed on the . PHYSICAL EXAMINATION: VITAL SIGNS: Temperature was 99.3 on arrival, blood pressure of 149/75 on arrival, but shortly thereafter went up to 223/117, current temp 97.8, blood pressure 159/97, satting 94% on room air with a pulse 76, respiratory rate of 20. CONSTITUTIONAL: She is lying in bed. She looks a little tired, but she is in no acute distress. She is cooperative. HEENT: She has normal conjunctivae. Oral cavity, pharynx is clear. NECK: Supple, no JVD. LUNGS: Decreased in the bases without wheeze. HEART: S1, S2. ABDOMEN: Soft, nontender, nondistended with positive bowel sounds, no guarding. GENITOURINARY: Drummond is in place. EXTREMITIES: Without clubbing, cyanosis. No gross edema. SKIN: Warm to touch without signs of rash. NEUROLOGIC: She is nonfocal, answers questions appropriately. PSYCHIATRIC: Affect is somewhat flat. LABORATORY VALUES: White count 17.5, hemoglobin 9.4, platelets of 142, neutrophils are 58, lymphs are 29, creatinine today of 2.2, glucose 99, AST 21, ALT 13, alk phos 97. Urinalysis concerning for her urinary tract infection. RADIOLOGY: Reviewed in the history present illness. IMPRESSION: 1. Urinary tract infection present on admission on the . History of previous E. coli and enterococcus. 2. Chronic kidney disease. 3. Hypertension. 4. Nausea, vomiting, dizziness present on arrival, some better. CT scan of the head negative. RECOMMENDATIONS: For now, continue Rocephin and Zyvox. Follow up labs and cultures. Discussed with microbiology this morning. Urine cultures pending. I also discussed the case with Italo, nurse practitioner for Urology. Thank you for allowing me to participate in the patient's care. Should you have any questions, please do not hesitate to contact me. GILBERTO SEQUEIRA MD DR: ALIYA/hal JOB#: [id number] / [id number]
[2018-08-18] MEDS: ZOLPIDEM 5 MG TABLET. PO PRN (22:01)
[2018-08-18 23:00] VITALS: BP 144/88
[2018-08-19 03:00] VITALS: BP 148/82
[2018-08-19] MEDS: HYDROmorphone 2 MG/ML VIAL IV PRN ×5 (03:05→21:38)
[2018-08-19 07:00] VITALS: BP 144/89
[2018-08-19] MEDS: PANTOPRAZOLE 40 MG TABLET.DR. PO SCH (07:30)
--- NOTE | 2018-08-19 07:52 | PDOC ---
PROGRESS NOTES Chief Complaint Chief Complaint intractable vomiting hypokalemia, volume depleted CKD- HTN emergency POA - SIRS possible sepsis on admission- History of VRE UTI was sensitive to Zyvox-in past Alcohol dependence Depression NOS Narcotic dependence hx Low lumbar spine postoperative spinal fusion noted with degenerative space narrowing at multiple levels. HX neurogenic bladder - self caths GERD History of Present Illness History of Present Illness 62-year-old female known to the hospital for chronic vomiting, chronic UTI from intermittently self caths, narcotic dependence. Creatinine is baseline of 1.5 - she has an element of CK D. Cr. climbed to 2.1 and her bladder noted full of air and some urine, distended. She has a history of VRE UTI known to infectious disease. Her blood pressure was 220 systolic on arrival. ER gave 2 blood pressure meds and now 170-180 systolic. 08/18: Vomited yesterday evening did not eat. Still with some abdominal pain. Cr 2.2 today. She still has no appetite. Seen by urology, ID, GI. Kerns placed yesterday with some relief. Pain is still pretty severe requiring IV meds. Cr stable. PLAN: Hydrate, nausea meds, iv fluids Urine already growing e coli Zyvox + Rocephin - ID consult given complicated UTI hx Inserted kerns liquid diet for now then ADA control blood pressure Alcohol cessation advised CIWA protocol Librium prn PPI etc. and other supportive meds Vitals Vitals Vital Signs Date Time Temp Pulse Resp B/P (MAP) Pulse Ox O2 Delivery O2 Flow Rate FiO2 08/19/18 03:35 18 92 Room Air 08/19/18 03:00 98.6 83 148/82 (104) 98.6 Physical Exam Physical Exam Physical Exam General: No acute distress, HEENT: Atraumatic, PERRLA, EOMI Lungs: Clear to auscultation, Normal air movement Heart: S1S2, no thrills, no rubs, no gallops, no murmurs, Abdomen: Soft, Rectal Exam: not examined Extremities: No clubbing, No cyanosis, No edema, Normal pulses, No tenderness/ swelling Skin: No rashes, No breakdown, No significant lesion Neuro: Normal gait, Normal speech, Strength at 5/5 X4 ext, Normal tone, Sensation intact, Cranial nerves 3-12 NL, Reflexes 2+ Psych/Mental Status: Mental status NL, Mood NL General: Alert, Oriented X3, Cooperative, No acute distress, mild distress, Other (very shaky) Heart: Regular rate, No murmurs Lungs: Clear Abdomen: Normal bowel sounds, Soft, No tenderness, No hepatosplenomegaly, Other (nl bowel sounds) Extremities: No clubbing, No cyanosis, No edema, Normal pulses, No tenderness/ swelling Skin: No rashes, No breakdown, No significant lesion Labs LABS Laboratory Tests Test 08/18/18 10:00 White Blood Count 5.0 x10^3/uL (4.0-11.0) Red Blood Count 3.72 x10^6/uL (3.50-5.40) Hemoglobin 10.0 g/dL (12.0-15.5) Hematocrit 31.6 % (36.0-47.0) Mean Corpuscular Volume 85 fL (79-100) Mean Corpuscular Hemoglobin 27 pg (25-35) Mean Corpuscular Hemoglobin Concent 32 g/dL (31-37) Red Cell Distribution Width 19.9 % (11.5-14.5) Platelet Count 135 x10^3/uL (140-400) Neutrophils (%) (Auto) 70 % (31-73) Lymphocytes (%) (Auto) 16 % (24-48) Monocytes (%) (Auto) 9 % (0-9) Eosinophils (%) (Auto) 4 % (0-3) Basophils (%) (Auto) 1 % (0-3) Neutrophils # (Auto) 3.5 x10^3uL (1.8-7.7) Lymphocytes # (Auto) 0.8 x10^3/uL (1.0-4.8) Monocytes # (Auto) 0.4 x10^3/uL (0.0-1.1) Eosinophils # (Auto) 0.2 x10^3/uL (0.0-0.7) Basophils # (Auto) 0.0 x10^3/uL (0.0-0.2) Assessment and Plan Assessmemt and Plan Problems Medical Problems: (1) Chronic back pain Status: Acute (2) Dizziness Status: Acute (3) Hypertensive urgency Status: Acute Comment Review of Relevant I have reviewed the following items blade (where applicable) has been applied. Labs Laboratory Tests Test 08/18/18 07:05 08/18/18 10:00 Sodium Level 136 mmol/L (136-145) Potassium Level 3.9 mmol/L (3.5-5.1) Chloride Level 102 mmol/L (98-107) Carbon Dioxide Level 23 mmol/L (21-32) Anion Gap 11 (6-14) Blood Urea Nitrogen 11 mg/dL (7-20) Creatinine 2.2 mg/dL (0.6-1.0) Estimated GFR (Cockcroft-Gault) 22.7 BUN/Creatinine Ratio 5 (6-20) Glucose Level 99 mg/dL (70-99) Calcium Level 9.7 mg/dL (8.5-10.1) Total Bilirubin 0.3 mg/dL (0.2-1.0) Aspartate Amino Transf (AST/SGOT) 21 U/L (15-37) Alanine Aminotransferase (ALT/SGPT) 13 U/L (14-59) Alkaline Phosphatase 97 U/L (46-116) Total Protein 7.4 g/dL (6.4-8.2) Albumin 2.8 g/dL (3.4-5.0) Albumin/Globulin Ratio 0.6 (1.0-1.7) White Blood Count 5.0 x10^3/uL (4.0-11.0) Red Blood Count 3.72 x10^6/uL (3.50-5.40) Hemoglobin 10.0 g/dL (12.0-15.5) Hematocrit 31.6 % (36.0-47.0) Mean Corpuscular Volume 85 fL (79-100) Mean Corpuscular Hemoglobin 27 pg (25-35) Mean Corpuscular Hemoglobin Concent 32 g/dL (31-37) Red Cell Distribution Width 19.9 % (11.5-14.5) Platelet Count 135 x10^3/uL (140-400) Neutrophils (%) (Auto) 70 % (31-73) Lymphocytes (%) (Auto) 16 % (24-48) Monocytes (%) (Auto) 9 % (0-9) Eosinophils (%) (Auto) 4 % (0-3) Basophils (%) (Auto) 1 % (0-3) Neutrophils # (Auto) 3.5 x10^3uL (1.8-7.7) Lymphocytes # (Auto) 0.8 x10^3/uL (1.0-4.8) Monocytes # (Auto) 0.4 x10^3/uL (0.0-1.1) Eosinophils # (Auto) 0.2 x10^3/uL (0.0-0.7) Basophils # (Auto) 0.0 x10^3/uL (0.0-0.2) Laboratory Tests Test 08/18/18 10:00 White Blood Count 5.0 x10^3/uL (4.0-11.0) Red Blood Count 3.72 x10^6/uL (3.50-5.40) Hemoglobin 10.0 g/dL (12.0-15.5) Hematocrit 31.6 % (36.0-47.0) Mean Corpuscular Volume 85 fL (79-100) Mean Corpuscular Hemoglobin 27 pg (25-35) Mean Corpuscular Hemoglobin Concent 32 g/dL (31-37) Red Cell Distribution Width 19.9 % (11.5-14.5) Platelet Count 135 x10^3/uL (140-400) Neutrophils (%) (Auto) 70 % (31-73) Lymphocytes (%) (Auto) 16 % (24-48) Monocytes (%) (Auto) 9 % (0-9) Eosinophils (%) (Auto) 4 % (0-3) Basophils (%) (Auto) 1 % (0-3) Neutrophils # (Auto) 3.5 x10^3uL (1.8-7.7) Lymphocytes # (Auto) 0.8 x10^3/uL (1.0-4.8) Monocytes # (Auto) 0.4 x10^3/uL (0.0-1.1) Eosinophils # (Auto) 0.2 x10^3/uL (0.0-0.7) Basophils # (Auto) 0.0 x10^3/uL (0.0-0.2) Microbiology 08/16/18 Urine Culture - Preliminary, Resulted 08/16/18 Urine Culture Result 1 (DARCIE) - Preliminary, Resulted Medications Current Medications Sodium Chloride 1,000 ml @ 1,000 mls/hr 1X ONCE IV Last administered on at 14:30; Start 08/16/18 at 14:30; Stop 08/16/18 at 15:29; Status DC Ondansetron HCl (Zofran) 4 mg 1X ONCE IV Last administered on 08/16/18at 14:54 ; Start 08/16/18 at 15:00; Stop 08/16/18 at 15:01; Status DC Meclizine HCl (Antivert) 25 mg 1X ONCE PO Last administered on 08/16/18 14:45 ; Start 08/16/18 at 14:45; Stop 08/16/18 at 14:46; Status DC Labetalol HCl (Normodyne Iv Push) 10 mg 1X ONCE IVP Last administered on 14:45; Start 08/16/18 at 14:45; Stop 08/16/18 at 14:46; Status DC Fentanyl Citrate (Fentanyl 2ml Vial) 75 mcg 1X ONCE IV Last administered on at 15:15; Start 08/16/18 at 15:15; Stop 08/16/18 at 15:16; Status DC Famotidine (Pepcid Vial) 20 mg 1X ONCE IVP Last administered on 08/16/18at 15: 15; Start 08/16/18 at 15:15; Stop 08/16/18 at 15:16; Status DC Hydralazine HCl (Apresoline Inj) 20 mg 1X ONCE IVP Last administered on 16:07; Start 08/16/18 at 16:00; Stop 08/16/18 at 16:02; Status DC Morphine Sulfate (Morphine Sulfate) 4 mg 1X ONCE IV ; Start 08/16/18 at 16:00; Stop 08/16/18 at 16:00; Status DC Diazepam (Valium) 5 mg 1X ONCE PO Last administered on 08/16/18 16:07; Start 08/16/18 at 16:00; Stop 08/16/18 at 16:02; Status DC Sodium Chloride 1,000 ml @ 100 mls/hr Q10H IV Last administered on 08/16/18at 16:52; Start 08/16/18 at 16:52; Stop 08/17/18 at 02:52; Status DC Ondansetron HCl (Zofran) 4 mg PRN Q6HRS PRN IV NAUSEA/VOMITING 1ST CHOICE Last administered on 2/17/19at 12:38; Start 08/16/18 at 17:00 Prochlorperazine Edisylate (Compazine) 10 mg PRN Q6HRS PRN IV NAUSEA/VOMITING; Start 08/16/18 at 17:00; Stop 08/17/18 at 16:55; Status DC Prochlorperazine (Compazine) 25 mg PRN Q12HR PRN ID NAUSEA/VOMITING; Start at 17:00 Calcium Carbonate/ Glycine (Tums) 500 mg PRN Q3HRS PRN PO UPSET STOMACH; Start 08/16/18 at 17:00 Oxycodone HCl (Roxicodone) 5 mg PRN Q3HRS PRN PO BREAKTHROUGH PAIN; Start 08/16 at 17:00 Acetaminophen/ Hydrocodone Bitart (Lortab 5/325) 1 tab PRN Q4HRS PRN PO MILD PAIN; Start 08/16/18 at 17:00 Acetaminophen (Tylenol) 650 mg PRN Q6HRS PRN PO Headaches, Temp > 101.5F; Start 08/16/18 at 17:00 Magnesium Hydroxide (Milk Of Magnesia) 2,400 mg PRN Q12HR PRN PO CONSTIPATION; Start 08/16/18 at 17:00 Chlordiazepoxide (Librium) 25 mg PRN Q6HRS PRN PO ANXIETY / AGITATION, 2ND CHOIC; Start 08/16/18 at 17:00 Fentanyl Citrate (Fentanyl 2ml Vial) 50 mcg PRN Q2HR PRN IV PAIN Last administered on 08/17/18at 09:09; Start 08/16/18 at 17:00; Stop 08/17/18 at 11:00 ; Status DC Alprazolam (Xanax) 0.25 mg PRN Q8HRS PRN PO ANXIETY / AGITATION, 1ST CHOIC Last administered on 08/18/18at 22:01; Start 08/16/18 at 17:00 Zolpidem Tartrate (Ambien) 5 mg PRN QHS PRN PO INSOMNIA Last administered on at 22:01; Start 08/16/18 at 17:00 Multivitamins 10 ml/Folic Acid 1 mg/Sodium Chloride 1,010.2 ml @ 999.099 mls/ hr 1X ONCE IV Last administered on 08/16/18 17:25; Start 08/16/18 at 17:00; Stop 08/16/18 at 18:00; Status DC Multivitamins (Thera M Plus) 1 tab DAILY PO Last administered on 08/18/18at 08: 44; Start 08/17/18 at 09:00 Thiamine Mononitrate (Vitamin B-1) 100 mg DAILY PO Last administered on 08:45; Start 08/17/18 at 09:00 Folic Acid (Folic Acid) 1 mg DAILY PO Last administered on 08/18/18 08:44; Start 08/17/18 at 09:00 Labetalol HCl (Normodyne Iv Push) 20 mg PRN Q2HR PRN IVP HYPERTENSION, SEE COMMENTS Last administered on 08/17/18at 21:11; Start 08/16/18 at 17:00 Amlodipine Besylate (Norvasc) 10 mg DAILY PO Last administered on 08/18/18 08: 44; Start 08/17/18 at 09:00 Duloxetine HCl (Cymbalta) 90 mg DAILY PO Last administered on 08/18/18 08:43; Start 08/17/18 at 09:00 Lactobacillus Rhamnosus (Culturelle) 1 cap BID PO Last administered on 22:01; Start 08/16/18 at 21:00 Ondansetron HCl (Zofran Odt) 4 mg PRN Q8HRS PRN PO NAUSEA; Start 08/16/18 at 17 :00 Oxycodone/ Acetaminophen (Percocet 7.5/ 325) 1 tab PRN QID PRN PO PAIN SEVERE; Start 08/16/18 at 17:00 Albuterol Sulfate (Ventolin Neb Soln) 2.5 mg Q4HRS NEB ; Start 08/16/18 at 20:00 ; Stop 08/16/18 at 20:00; Status DC Benzonatate (Tessalon Perle) 100 mg PRN TID PRN PO COUGH; Start 08/16/18 at 21: 00 Pantoprazole Sodium (Protonix) 40 mg DAILYAC PO Last administered on 08/18/18at 08:40; Start 08/17/18 at 07:30 Meclizine HCl (Antivert) 25 mg PRN Q8HRS PRN PO DIZZINESS Last administered on 08/18/18at 08:46; Start 08/16/18 at 17:30 Prochlorperazine Edisylate (Compazine) 10 mg PRN Q6HRS PRN IV NAUSEA/VOMITING 2ND CHOICE; Start 08/16/18 at 17:00 Thiamine Mononitrate (Vitamin B-1) 100 mg ONCE ONCE PO Last administered on at 17:25; Start 08/16/18 at 17:15; Stop 08/16/18 at 17:25; Status DC Ondansetron HCl (Zofran) 4 mg PRN Q8HRS PRN IV NAUSEA/VOMITING; Start 08/16/18 at 17:30; Stop 08/17/18 at 17:29; Status DC Albuterol Sulfate (Ventolin Neb Soln) 2.5 mg PRN Q4HRS PRN NEB WHEEZING; Start 08/16/18 at 18:00 Ceftriaxone Sodium (Rocephin) 1 gm Q24H IVP ; Start 08/17/18 at 11:30; Stop at 11:30; Status DC Potassium Chloride (Klor-Con) 40 meq 1X ONCE PO Last administered on at 13:07; Start 08/17/18 at 11:00; Stop 08/17/18 at 11:01; Status DC Potassium Chloride (Klor-Con) 20 meq DAILYWBKFT PO Last administered on at 08:41; Start 08/18/18 at 08:00 Linezolid/Dextrose 300 ml @ 300 mls/hr Q12HR IV Last administered on at 22:02; Start 08/17/18 at 12:00 Hydromorphone HCl (Dilaudid) 1 mg PRN Q4HRS PRN IV PAIN Last administered on 03:05; Start 08/17/18 at 11:15 Ceftriaxone Sodium (Rocephin) 1 gm Q24H IVP Last administered on 08/18/18at 10: 46; Start 08/18/18 at 11:00 Active Scripts Active Macrobid 100 Mg Capsule (Nitrofurantoin Monohyd/M-Cryst) 100 Mg Capsule 1 Cap PO BID Medrol (Methylprednisolone) 4 Mg Tab.ds.pk 1 Pkg PO UD Orphenadrine Citrate 100 Mg Tablet.er 100 Mg PO BID Meclizine Hcl 25 Mg Tablet 25 Mg PO PRN TID PRN dizziness Tessalon Perle (Benzonatate) 100 Mg Capsule 1 Cap PO TID PRN Ventolin Hfa Inhaler (Albuterol Sulfate) 18 Gm Hfa.aer.ad 2 Puff INH Q4HRS 30 Days Culturelle (Lactobacillus Rhamnosus Gg) 1 Each Cap.sprink 1 Cap PO BID 14 Days [Ceftriaxone Sodium] 1 GM Vial 1 Gm IVP Q24H 7 Days Zofran Odt (Ondansetron) 4 Mg Tab.rapdis 1 Tab SL Q8HRS PRN Zofran Odt (Ondansetron) 4 Mg Tab.rapdis 1 Tab SL Q8HRS Percocet 7.5-325 Mg Tablet (Oxycodone/Acetaminophen) 1 Each Tablet 1 Tab PO QID Cymbalta (Duloxetine Hcl) 30 Mg Capsule. 90 Mg PO DAILY 30 Days Reported Amlodipine Besylate 10 Mg Tablet 10 Mg PO DAILY Nexium Capsule (Esomeprazole Magnesium) 40 Mg Capsule. 1 Cap PO DAILY Vitals/I & O Vital Sign - Last 24 Hours 08/18/18 08/18/18 08/18/18 08/18/18 08:00 08:44 08:47 10:50 Temp 97.9 97.9 Pulse 76 79 Resp 20 18 B/P (MAP) 159/97 137/82 (100) Pulse Ox 94 93 O2 Delivery Room Air Room Air Room Air 08/18/18 08/18/18 08/18/18 08/18/18 13:48 15:00 18:31 19:00 Temp 97.9 98.1 97.9 98.1 Pulse 80 94 Resp 20 18 20 18 B/P (MAP) 126/76 (93) 129/84 (99) Pulse Ox 93 92 92 93 O2 Delivery Room Air Room Air Room Air Room Air 08/18/18 08/18/18 08/18/18 08/19/18 20:00 22:48 23:00 03:00 Temp 98.3 98.6 98.3 98.6 Pulse 81 83 Resp 17 18 B/P (MAP) 144/88 (106) 148/82 (104) Pulse Ox 92 95 95 O2 Delivery Room Air Room Air Room Air Room Air 08/19/18 08/19/18 03:05 03:35 Resp 18 18 Pulse Ox 92 92 O2 Delivery Room Air Room Air Intake and Output 08/18/18 08/18/18 08/19/18 15:00 23:00 07:00 Intake Total 560 ml 160 ml Output Total 1200 ml 203 ml Balance -640 ml -43 ml DEN PACHECO MD Aug 19, 2018 07:52
[2018-08-19] MEDS: POTASSIUM CHLORIDE 20 MEQ TABLET.ER. PO SCH (08:00)
--- NOTE | 2018-08-19 08:45 | NUR ---
SW following pt for anticipated dc needs. Chart reviewed. Pt lives at home and on Room air. No PT/OT orders at this time. ID following pt. SW will continue to follow pt to evaluate dc needs.
[2018-08-19] MEDS: IV RINGERS,LACTATED 1000ML 1,000 ML IV SCH ×2 (08:58→16:58)
[2018-08-19] MEDS ORDERED: fentaNYL PF VIAL 100 MCG/2 ML VIAL IV PRN ×2 (09:00)
[2018-08-19] MEDS ORDERED: MIDAZOLAM HCL/PF 2 MG/2 ML VIAL. IV PRN (09:00)
[2018-08-19] MEDS ORDERED: LIDOCAINE 1% PF 2 ML VIAL. ID PRN (09:00)
--- NOTE | 2018-08-19 10:23 | PDOC ---
SUBJECTIVE Subjective Pt resting comfortably. Drummond catheter not bothering her. OBJECTIVE Objective Physical Exam: General appearance: Alert and Oriented Head: Normocephalic, without obvious abnormality Eyes: conjunctivae/corneas clear. PERRL, EOM's intact. Fundi benign Back: negative, no CVA pain bilaterally. Lungs: Regular respirations, non labored breathing. Abdomen: soft, non-tender. No masses, no organomegaly Pelvic: + Drummond catheter in place draining clear yellow urine. Device in good working order. Vital Signs Vital Signs Date Time Temp Pulse Resp B/P (MAP) Pulse Ox O2 Delivery O2 Flow Rate FiO2 08/19/18 08:18 92 Room Air 08/19/18 08:00 Room Air 08/19/18 07:00 98.6 83 20 144/89 (107) 99 Room Air 98.6 08/19/18 03:35 18 92 Room Air 08/19/18 03:05 18 92 Room Air 08/19/18 03:00 98.6 83 18 148/82 (104) 95 Room Air 98.6 08/18/18 23:00 98.3 81 17 144/88 (106) 95 Room Air 98.3 08/18/18 22:48 92 Room Air 08/18/18 20:00 Room Air 08/18/18 19:00 98.1 94 18 129/84 (99) 93 Room Air 98.1 08/18/18 18:31 20 92 Room Air 08/18/18 15:00 97.9 80 18 126/76 (93) 92 Room Air 97.9 08/18/18 13:48 20 93 Room Air 08/18/18 10:50 97.9 79 18 137/82 (100) 93 Room Air 97.9 I & O Intake and Output 08/19/18 06:59 Intake Total 720 ml Output Total 1403 ml Balance -683 ml Intake Oral 720 ml Output Urine Total 1403 ml PHYSICAL EXAM Physical Exam Physical Exam: General appearance: Alert and Oriented Head: Normocephalic, without obvious abnormality Eyes: conjunctivae/corneas clear. PERRL, EOM's intact. Fundi benign Back: negative, no CVA pain bilaterally. Lungs: Regular respirations, non labored breathing. Abdomen: soft, non-tender. No masses, no organomegaly Pelvic: + Drummond catheter in place draining clear yellow urine. Device in good working order. ASSESSMENT/PLAN Assessment/Plan A Rdummond has been inserted and this should remain until the patient gets close to discharge. Unsure if air in bladder is from I and O cathing technique or UTI. Whenever medical team discharges her home, we can remove the Drummond. Discussed above with attending RN. A follow up appointment has been arranged for patient to see Dr. Coreas on 11/05/18 at 1020 am for her annual Urology appointment at [facility] location. Appointment card put in chart. Will follow peripherally until discharge. Problems: (1) Urinary retention CAROL MORENO APRN Aug 19, 2018 10:23
--- NOTE | 2018-08-19 11:31 | PDOC4 ---
PROCEDURE Procedure EGD/balloon dilation/biopsies Indication: Dysphagia/history of stricture, severe GERD Meds: per anesthesia Findings: E--Rebeca? mid esophagus. Mild stricture at 30cm; bulk of reflux healed at this point. Alvarez's? from 30-33cm (GEJ). G--Small HH D--Normal to second portion. --dilated stricture to 45 with balloon. --biopsies 30-33 cm and mid-esophagus. Vinny. well. IMP: Mild stricture, dilated. Rebeca?, biopsied. Probable Alvarez's, biopsied. REC: Soft diet. Continue PPI/resume prokinetic. Await biopsies. Empiric Nystatin pending biopsies. Thanks. PREET AMEZQUITA MD Aug 19, 2018 11:31
[2018-08-19] MEDS ORDERED: PROPOFOL 20 ML IV ONE (11:34)
[2018-08-19] MEDS: cefTRIAXone IV Push 1 GM VIAL. IVP SCH (13:02)
[2018-08-19] MEDS: THIAMINE 100 MG TABLET. PO SCH (13:06)
[2018-08-19] MEDS: FOLIC ACID 1 MG TABLET. PO SCH (13:06)
[2018-08-19] MEDS: MULTIVITAMIN with MINERAL TABLET. PO SCH (13:06)
[2018-08-19] MEDS: LACTOBACILLUS RHAMNOSUS GG 1 CAPSULE. PO SCH ×2 (13:06→20:01)
[2018-08-19] MEDS: amLODIPine BESYLATE 10 MG TABLET PO SCH (13:06)
[2018-08-19] MEDS: DULoxetine HCL 30 MG CAPSULE.DR PO SCH (13:07)
[2018-08-19] MEDS: FLUCONAZOLE 100 MG TABLET. PO SCH (13:11)
[2018-08-19] MEDS: METOCLOPRAMIDE ORAL SOLN 10 MG/10 ML SOLUTION. PO SCH ×3 (13:11→20:18)
[2018-08-19] MEDS: ALPRAZolam 0.25 MG TABLET PO PRN ×2 (13:11→20:01)
[2018-08-19 15:00] VITALS: BP 154/93
[2018-08-19 19:00] VITALS: BP 127/75
[2018-08-19] MEDS: ZOLPIDEM 5 MG TABLET. PO PRN (20:01)
[2018-08-19 23:00] VITALS: BP 130/69
[2018-08-20] MEDS: HYDROmorphone 2 MG/ML VIAL IV PRN ×5 (02:07→21:39)
[2018-08-20 03:00] VITALS: BP 125/68
[2018-08-20] MEDS: METOCLOPRAMIDE ORAL SOLN 10 MG/10 ML SOLUTION. PO SCH ×4 (06:03→21:37)
[2018-08-20] MEDS: PANTOPRAZOLE 40 MG TABLET.DR. PO SCH (06:03)
[2018-08-20 07:00] VITALS: BP 138/84
[2018-08-20] MEDS: LACTOBACILLUS RHAMNOSUS GG 1 CAPSULE. PO SCH ×2 (08:57→21:36)
[2018-08-20] MEDS: POTASSIUM CHLORIDE 20 MEQ TABLET.ER. PO SCH (08:57)
[2018-08-20] MEDS: FOLIC ACID 1 MG TABLET. PO SCH (08:57)
[2018-08-20] MEDS: MULTIVITAMIN with MINERAL TABLET. PO SCH (08:57)
[2018-08-20] MEDS: FLUCONAZOLE 100 MG TABLET. PO SCH (08:58)
[2018-08-20] MEDS: DULoxetine HCL 30 MG CAPSULE.DR PO SCH (08:58)
[2018-08-20] MEDS: THIAMINE 100 MG TABLET. PO SCH (08:58)
[2018-08-20] MEDS: amLODIPine BESYLATE 10 MG TABLET PO SCH (08:59)
[2018-08-20] MEDS ORDERED: cefTRIAXone IV Push 1 GM VIAL. IVP ONE (09:00)
--- NOTE | 2018-08-20 09:02 | PDOC ---
Infectious Disease Note Subjective Subjective better since dilation No F/C/S/SOA/RASH/N/V/D Vital Sign Vital Signs Vital Signs Date Time Temp Pulse Resp B/P (MAP) Pulse Ox O2 Delivery O2 Flow Rate FiO2 08/20/18 07:00 98.5 83 18 138/84 (102) 95 Room Air 98.5 08/20/18 06:39 3.0 Physical Exam PHYSICAL EXAM General: No acute distress, coop in bed HEENT: Atraumatic, PERRLA, EOMI. Oc/Op - clear Lungs: Clear to auscultation, Normal air movement Heart: S1S2, no thrills, no rubs, no gallops, no murmurs, Abdomen: Soft, : kerns Extremities: No clubbing, No cyanosis, No edema, Normal pulses, No tenderness/ swelling Skin: No rashes, No breakdown, No significant lesion Neuro: nonfocal Psych/Mental Status: approp affect Labs Micro URINE CULTURE Final Final report URINE CULTURE RES 1 Final Escherichia coli Greater than 100,000 colony forming units per mL Cefazolin <=4 ug/mL Cefazolin with an DARCIE <=16 predicts susceptibility to the oral agents cefaclor, cefdinir, cefpodoxime, cefprozil, cefuroxime, cephalexin, and loracarbef when used for therapy of uncomplicated urinary tract infections due to E. coli, Klebsiella pneumoniae, and Proteus mirabilis. ANTIMICROBIAL SUSCEPTIBILITY Final Comment S = Susceptible; I = Intermediate; R = Resistant P = Positive; N = Negative MICS are expressed in micrograms per mL Antibiotic RSLT#1 RSLT#2 RSLT#3 RSLT#4 Amoxicillin/Clavulanic Acid S =4 Ampicillin S =4 Cefepime S<=0.12 Ceftriaxone S<=0.25 Cefuroxime S =4 Ciprofloxacin S<=0.25 Ertapenem S<=0.12 Gentamicin S<=1 Imipenem S<=0.25 Levofloxacin S<=0.12 Meropenem S<=0.25 Nitrofurantoin S<=16 Piperacillin/Tazobactam S<=4 Tetracycline S<=1 Tobramycin S<=1 Trimethoprim/Sulfa R>=320 Performed at: [facility] Impression: No radiopaque collecting system calculi or evidence of obstruction. Gas within the moderately distended urinary bladder is again seen. Correlate with history of intervention. No surrounding inflammatory changes about the urinary bladder. Correlate clinically in determining need for further assessment. Objective Assessment Ecoli UTI - POA - 08/16 Dose Rocephin now S/p EGD - dilation ? Rebeca -esophagitis - per GI ? Barretts CKD HTN N/V/Dizziness POA some better- CT head neg Plan Plan of Care Unable to see 08/19 sec to EGD but d/c Zyvox given GNR in urine Cont Rocephin times one then begin Cephalexin 08/21 for 7 days Esophageal Rebeca per GI D/w Kamila LAM GI D/w GILBERTO Kennedy MD Aug 20, 2018 09:02
--- NOTE | 2018-08-20 09:33 | PDOC ---
PROGRESS NOTES Chief Complaint Chief Complaint intractable vomiting hypokalemia, volume depleted CKD- HTN emergency POA - SIRS possible sepsis on admission- History of VRE UTI was sensitive to Zyvox-in past Alcohol dependence Depression NOS Narcotic dependence hx Low lumbar spine postoperative spinal fusion noted with degenerative space narrowing at multiple levels. HX neurogenic bladder - self caths GERD History of Present Illness History of Present Illness 62-year-old female known to the hospital for chronic vomiting, chronic UTI from intermittently self caths, narcotic dependence. Creatinine is baseline of 1.5 - now 2.2 poor appetite, very weak, has been to [facility] a few times for rehab Hydrate, nausea meds, iv fluids Urine already growing e coli Zyvox + Rocephin - ID consult given complicated UTI hx Inserted kenrs liquid diet for now then ADA control blood pressure Alcohol cessation advised CIWA protocol Librium prn PPI etc. and other supportive meds Vitals Vitals Vital Signs Date Time Temp Pulse Resp B/P (MAP) Pulse Ox O2 Delivery O2 Flow Rate FiO2 08/20/18 08:59 83 138/84 08/20/18 07:00 98.5 18 95 Room Air 98.5 08/20/18 06:39 3.0 Physical Exam Physical Exam Physical Exam General: No acute distress, HEENT: Atraumatic, PERRLA, EOMI Lungs: Clear to auscultation, Normal air movement Heart: S1S2, no thrills, no rubs, no gallops, no murmurs, Abdomen: Soft, Rectal Exam: not examined Extremities: No clubbing, No cyanosis, No edema, Normal pulses, No tenderness/ swelling Skin: No rashes, No breakdown, No significant lesion Neuro: Normal gait, Normal speech, Strength at 5/5 X4 ext, Normal tone, Sensation intact, Cranial nerves 3-12 NL, Reflexes 2+ Psych/Mental Status: Mental status NL, Mood NL General: Alert, Oriented X3, Cooperative, No acute distress, mild distress, Other (very shaky) Heart: Regular rate, No murmurs Lungs: Clear Abdomen: Normal bowel sounds, Soft, No tenderness, No hepatosplenomegaly, Other (nl bowel sounds) Extremities: No clubbing, No cyanosis, No edema, Normal pulses, No tenderness/ swelling Skin: No rashes, No breakdown, No significant lesion Assessment and Plan Assessmemt and Plan Problems Medical Problems: (1) Chronic back pain Status: Acute (2) Dizziness Status: Acute (3) Hypertensive urgency Status: Acute Comment Review of Relevant I have reviewed the following items blade (where applicable) has been applied. Labs Laboratory Tests Test 08/18/18 10:00 White Blood Count 5.0 x10^3/uL (4.0-11.0) Red Blood Count 3.72 x10^6/uL (3.50-5.40) Hemoglobin 10.0 g/dL (12.0-15.5) Hematocrit 31.6 % (36.0-47.0) Mean Corpuscular Volume 85 fL (79-100) Mean Corpuscular Hemoglobin 27 pg (25-35) Mean Corpuscular Hemoglobin Concent 32 g/dL (31-37) Red Cell Distribution Width 19.9 % (11.5-14.5) Platelet Count 135 x10^3/uL (140-400) Neutrophils (%) (Auto) 70 % (31-73) Lymphocytes (%) (Auto) 16 % (24-48) Monocytes (%) (Auto) 9 % (0-9) Eosinophils (%) (Auto) 4 % (0-3) Basophils (%) (Auto) 1 % (0-3) Neutrophils # (Auto) 3.5 x10^3uL (1.8-7.7) Lymphocytes # (Auto) 0.8 x10^3/uL (1.0-4.8) Monocytes # (Auto) 0.4 x10^3/uL (0.0-1.1) Eosinophils # (Auto) 0.2 x10^3/uL (0.0-0.7) Basophils # (Auto) 0.0 x10^3/uL (0.0-0.2) Microbiology 08/16/18 Urine Culture - Final, Complete 08/16/18 Urine Culture Result 1 (DARCIE) - Final, Complete 08/16/18 Antimicrobic Susceptibility - Final, Complete Medications Current Medications Sodium Chloride 1,000 ml @ 1,000 mls/hr 1X ONCE IV Last administered on at 14:30; Start 08/16/18 at 14:30; Stop 08/16/18 at 15:29; Status DC Ondansetron HCl (Zofran) 4 mg 1X ONCE IV Last administered on 08/16/18 14:54 ; Start 08/16/18 at 15:00; Stop 08/16/18 at 15:01; Status DC Meclizine HCl (Antivert) 25 mg 1X ONCE PO Last administered on 08/16/18at 14:45 ; Start 08/16/18 at 14:45; Stop 08/16/18 at 14:46; Status DC Labetalol HCl (Normodyne Iv Push) 10 mg 1X ONCE IVP Last administered on at 14:45; Start 08/16/18 at 14:45; Stop 08/16/18 at 14:46; Status DC Fentanyl Citrate (Fentanyl 2ml Vial) 75 mcg 1X ONCE IV Last administered on at 15:15; Start 08/16/18 at 15:15; Stop 08/16/18 at 15:16; Status DC Famotidine (Pepcid Vial) 20 mg 1X ONCE IVP Last administered on 08/16/18at 15: 15; Start 08/16/18 at 15:15; Stop 08/16/18 at 15:16; Status DC Hydralazine HCl (Apresoline Inj) 20 mg 1X ONCE IVP Last administered on at 16:07; Start 08/16/18 at 16:00; Stop 08/16/18 at 16:02; Status DC Morphine Sulfate (Morphine Sulfate) 4 mg 1X ONCE IV ; Start 08/16/18 at 16:00; Stop 08/16/18 at 16:00; Status DC Diazepam (Valium) 5 mg 1X ONCE PO Last administered on 08/16/18at 16:07; Start 08/16/18 at 16:00; Stop 08/16/18 at 16:02; Status DC Sodium Chloride 1,000 ml @ 100 mls/hr Q10H IV Last administered on 08/16/18at 16:52; Start 08/16/18 at 16:52; Stop 08/17/18 at 02:52; Status DC Ondansetron HCl (Zofran) 4 mg PRN Q6HRS PRN IV NAUSEA/VOMITING 1ST CHOICE Last administered on 08/17/18at 12:38; Start 08/16/18 at 17:00 Prochlorperazine Edisylate (Compazine) 10 mg PRN Q6HRS PRN IV NAUSEA/VOMITING; Start 08/16/18 at 17:00; Stop 08/17/18 at 16:55; Status DC Prochlorperazine (Compazine) 25 mg PRN Q12HR PRN VA NAUSEA/VOMITING; Start at 17:00 Calcium Carbonate/ Glycine (Tums) 500 mg PRN Q3HRS PRN PO UPSET STOMACH; Start 08/16/18 at 17:00 Oxycodone HCl (Roxicodone) 5 mg PRN Q3HRS PRN PO BREAKTHROUGH PAIN; Start 08/16 at 17:00 Acetaminophen/ Hydrocodone Bitart (Lortab 5/325) 1 tab PRN Q4HRS PRN PO MILD PAIN; Start 08/16/18 at 17:00 Acetaminophen (Tylenol) 650 mg PRN Q6HRS PRN PO Headaches, Temp > 101.5F; Start 08/16/18 at 17:00 Magnesium Hydroxide (Milk Of Magnesia) 2,400 mg PRN Q12HR PRN PO CONSTIPATION; Start 08/16/18 at 17:00 Chlordiazepoxide (Librium) 25 mg PRN Q6HRS PRN PO ANXIETY / AGITATION, 2ND CHOIC; Start 08/16/18 at 17:00 Fentanyl Citrate (Fentanyl 2ml Vial) 50 mcg PRN Q2HR PRN IV PAIN Last administered on 08/17/18at 09:09; Start 08/16/18 at 17:00; Stop 08/17/18 at 11:00 ; Status DC Alprazolam (Xanax) 0.25 mg PRN Q8HRS PRN PO ANXIETY / AGITATION, 1ST CHOIC Last administered on 08/19/18at 20:01; Start 08/16/18 at 17:00 Zolpidem Tartrate (Ambien) 5 mg PRN QHS PRN PO INSOMNIA Last administered on at 20:01; Start 08/16/18 at 17:00 Multivitamins 10 ml/Folic Acid 1 mg/Sodium Chloride 1,010.2 ml @ 999.099 mls/ hr 1X ONCE IV Last administered on 08/16/18at 17:25; Start 08/16/18 at 17:00; Stop 08/16/18 at 18:00; Status DC Multivitamins (Thera M Plus) 1 tab DAILY PO Last administered on 08/20/18 08: 57; Start 08/17/18 at 09:00 Thiamine Mononitrate (Vitamin B-1) 100 mg DAILY PO Last administered on 08:58; Start 08/17/18 at 09:00 Folic Acid (Folic Acid) 1 mg DAILY PO Last administered on 08/20/18 08:57; Start 08/17/18 at 09:00 Labetalol HCl (Normodyne Iv Push) 20 mg PRN Q2HR PRN IVP HYPERTENSION, SEE COMMENTS Last administered on 08/17/18 21:11; Start 08/16/18 at 17:00 Amlodipine Besylate (Norvasc) 10 mg DAILY PO Last administered on 08/20/18 08: 59; Start 08/17/18 at 09:00 Duloxetine HCl (Cymbalta) 90 mg DAILY PO Last administered on 08/20/18 08:58; Start 08/17/18 at 09:00 Lactobacillus Rhamnosus (Culturelle) 1 cap BID PO Last administered on 08:57; Start 08/16/18 at 21:00 Ondansetron HCl (Zofran Odt) 4 mg PRN Q8HRS PRN PO NAUSEA; Start 08/16/18 at 17 :00 Oxycodone/ Acetaminophen (Percocet 7.5/ 325) 1 tab PRN QID PRN PO PAIN SEVERE; Start 08/16/18 at 17:00 Albuterol Sulfate (Ventolin Neb Soln) 2.5 mg Q4HRS NEB ; Start 08/16/18 at 20:00 ; Stop 08/16/18 at 20:00; Status DC Benzonatate (Tessalon Perle) 100 mg PRN TID PRN PO COUGH; Start 08/16/18 at 21: 00 Pantoprazole Sodium (Protonix) 40 mg DAILYAC PO Last administered on 08/20/18 06:03; Start 08/17/18 at 07:30 Meclizine HCl (Antivert) 25 mg PRN Q8HRS PRN PO DIZZINESS Last administered on 08/18/18 08:46; Start 08/16/18 at 17:30 Prochlorperazine Edisylate (Compazine) 10 mg PRN Q6HRS PRN IV NAUSEA/VOMITING 2ND CHOICE; Start 08/16/18 at 17:00 Thiamine Mononitrate (Vitamin B-1) 100 mg ONCE ONCE PO Last administered on at 17:25; Start 08/16/18 at 17:15; Stop 08/16/18 at 17:25; Status DC Ondansetron HCl (Zofran) 4 mg PRN Q8HRS PRN IV NAUSEA/VOMITING; Start 08/16/18 at 17:30; Stop 08/17/18 at 17:29; Status DC Albuterol Sulfate (Ventolin Neb Soln) 2.5 mg PRN Q4HRS PRN NEB WHEEZING; Start 08/16/18 at 18:00 Ceftriaxone Sodium (Rocephin) 1 gm Q24H IVP ; Start 08/17/18 at 11:30; Stop at 11:30; Status DC Potassium Chloride (Klor-Con) 40 meq 1X ONCE PO Last administered on at 13:07; Start 08/17/18 at 11:00; Stop 08/17/18 at 11:01; Status DC Potassium Chloride (Klor-Con) 20 meq DAILYWBKFT PO Last administered on at 08:57; Start 08/18/18 at 08:00 Linezolid/Dextrose 300 ml @ 300 mls/hr Q12HR IV Last administered on at 22:02; Start 08/17/18 at 12:00; Stop 08/19/18 at 11:27; Status DC Hydromorphone HCl (Dilaudid) 1 mg PRN Q4HRS PRN IV PAIN Last administered on at 06:04; Start 08/17/18 at 11:15 Ceftriaxone Sodium (Rocephin) 1 gm Q24H IVP Last administered on 08/19/18at 13: 02; Start 08/18/18 at 11:00; Stop 08/20/18 at 09:02; Status DC Midazolam HCl (Versed) 2 mg PRN 1X PRN IV PRIOR TO PROCEDURE; Start 08/19/18 at 09:00; Stop 08/20/18 at 08:59; Status DC Fentanyl Citrate (Fentanyl 2ml Vial) 25 mcg PRN Q5MIN PRN IV X 2 DOSES FOR PAIN ; Start 08/19/18 at 09:00; Stop 08/20/18 at 08:59; Status DC Fentanyl Citrate (Fentanyl 2ml Vial) 50 mcg PRN Q5MIN PRN IV X 2 DOSES FOR PAIN ; Start 08/19/18 at 09:00; Stop 08/20/18 at 08:59; Status DC Ringer's Solution 1,000 ml @ 125 mls/hr Q8H IV Last administered on 08/19/18at 08:58; Start 08/19/18 at 08:58; Stop 08/19/18 at 20:57; Status DC Lidocaine HCl (Xylocaine-Mpf 1% 2ml Vial) 2 ml 1X PRN PRN ID IV START; Start at 09:00; Stop 08/20/18 at 08:59; Status DC Propofol 20 ml @ As Directed STK-MED ONCE IV ; Start 08/19/18 at 11:34; Stop at 11:35; Status DC Fluconazole (Diflucan) 100 mg DAILY PO Last administered on 08/20/18at 08:58; Start 08/19/18 at 12:00 Metoclopramide HCl (Reglan Oral Solution) 10 mg TIDACHC PO Last administered on 08/20/18at 06:03; Start 08/19/18 at 12:00 Ceftriaxone Sodium (Rocephin) 1 gm 1X ONCE IVP ; Start 08/20/18 at 09:00; Stop 08/20/18 at 09:15; Status DC Cephalexin HCl (Keflex) 500 mg TID PO ; Start 08/21/18 at 09:00 Active Scripts Active Macrobid 100 Mg Capsule (Nitrofurantoin Monohyd/M-Cryst) 100 Mg Capsule 1 Cap PO BID Medrol (Methylprednisolone) 4 Mg Tab.ds.pk 1 Pkg PO UD Orphenadrine Citrate 100 Mg Tablet.er 100 Mg PO BID Meclizine Hcl 25 Mg Tablet 25 Mg PO PRN TID PRN dizziness Tessalon Perle (Benzonatate) 100 Mg Capsule 1 Cap PO TID PRN Ventolin Hfa Inhaler (Albuterol Sulfate) 18 Gm Hfa.aer.ad 2 Puff INH Q4HRS 30 Days Culturelle (Lactobacillus Rhamnosus Gg) 1 Each Cap.sprink 1 Cap PO BID 14 Days [Ceftriaxone Sodium] 1 GM Vial 1 Gm IVP Q24H 7 Days Zofran Odt (Ondansetron) 4 Mg Tab.rapdis 1 Tab SL Q8HRS PRN Zofran Odt (Ondansetron) 4 Mg Tab.rapdis 1 Tab SL Q8HRS Percocet 7.5-325 Mg Tablet (Oxycodone/Acetaminophen) 1 Each Tablet 1 Tab PO QID Cymbalta (Duloxetine Hcl) 30 Mg Capsule. 90 Mg PO DAILY 30 Days Reported Amlodipine Besylate 10 Mg Tablet 10 Mg PO DAILY Nexium Capsule (Esomeprazole Magnesium) 40 Mg Capsule. 1 Cap PO DAILY Vitals/I & O Vital Sign - Last 24 Hours 08/19/18 08/19/18 08/19/18 08/19/18 10:22 10:24 11:32 11:46 Temp 98.4 97.6 98.4 97.6 Pulse 84 84 78 Resp 20 20 20 B/P (MAP) 133/73 124/72 Pulse Ox 93 95 93 O2 Delivery Room Air Nasal Cannula Room Air O2 Flow Rate 3 08/19/18 08/19/18 08/19/18 08/19/18 12:01 12:59 13:06 15:00 Temp 98.4 98.4 Pulse 75 78 79 Resp 20 20 B/P (MAP) 153/86 154/93 154/93 (113) Pulse Ox 95 95 96 O2 Delivery Room Air Room Air Room Air O2 Flow Rate 3.0 08/19/18 08/19/18 08/19/18 08/19/18 17:31 19:00 20:00 21:38 Temp 98.2 98.2 Pulse 81 Resp 18 18 B/P (MAP) 127/75 (92) Pulse Ox 95 95 95 O2 Delivery Room Air Room Air Room Air Room Air O2 Flow Rate 3.0 08/19/18 08/20/18 08/20/18 08/20/18 23:00 02:07 03:00 06:04 Temp 98.0 98.1 98.0 98.1 Pulse 78 82 Resp 17 18 18 18 B/P (MAP) 130/69 (89) 125/68 (87) Pulse Ox 94 94 93 94 O2 Delivery Room Air Room Air Room Air Room Air O2 Flow Rate 3.0 3.0 08/20/18 08/20/18 08/20/18 06:39 07:00 08:59 Temp 98.5 98.5 Pulse 83 83 Resp 18 18 B/P (MAP) 138/84 (102) 138/84 Pulse Ox 94 95 O2 Delivery Room Air Room Air O2 Flow Rate 3.0 Intake and Output 08/19/18 08/19/18 08/20/18 15:00 23:00 07:00 Intake Total 500 ml 480 ml 360 ml Output Total 850 ml Balance 500 ml 480 ml -490 ml ERNIE FAITH MD Aug 20, 2018 09:33
[2018-08-20] MEDS ORDERED: IV NORMAL SALINE 1000ML BAG 1,000 ML IV ONE (09:45)
--- NOTE | 2018-08-20 09:53 | PDOC ---
Subjective: Subjective: Tolerating PO and stooling w/o issue. Has some leftover upper abd discomfort - better. Objective: Vital Signs: Vital Signs Date Time Temp Pulse Resp B/P (MAP) Pulse Ox O2 Delivery O2 Flow Rate FiO2 08/20/18 08:59 83 138/84 08/20/18 07:00 98.5 18 95 Room Air 98.5 08/20/18 06:39 3.0 Imaging: EGD 08/19 E--Rebeca? mid esophagus. Mild stricture at 30cm; bulk of reflux healed at this point. Alvarez's? from 30-33cm (GEJ). G--Small HH D--Normal to second portion. --dilated stricture to 45 with balloon. --biopsies 30-33 cm and mid-esophagus. IMP: Mild stricture, dilated. Rebeca?, biopsied. Probable Alvarez's, biopsied. PE: GEN: NAD LUNGS: CTAB HEART: RRR ABD: soft, mild discomfort upper abd (?MSK) NEURO/PSYCH: A & O 3 A/P: Dysphagia - resolved s/p dilation of mild esophageal stricture GERD/?Alvarez's - on PPI, path pending ?rebeca - on Diflucan path pending Gastroparesis - has Reglan oziel TIDAC, UTI - E coli Chronic anemia, CKD -- Swallowing improved. Await path. ?increase Reglan to ANNE-MARIE ZAMBRANO Aug 20, 2018 09:52
[2018-08-20 10:40] LABS: CALCIUM 8.9 mg/dL (8.5-10.1); CREATININE 2.3 mg/dL (0.6-1.0); GFR 21.6; POTASSIUM 4.3 mmol/L (3.5-5.1)
[2018-08-20 11:00] VITALS: BP 127/76
--- NOTE | 2018-08-20 11:34 | NUR ---
SW responding to a referral regarding skilled, [place]. PT/OT evaluation pending. SW will await for PT/OT evaluation and proceed accordingly.
--- NOTE | 2018-08-20 14:55 | NUR ---
SW following pt. PT/OT recommends SNU. Spoke with Pt at bedside and pt chose [facility]. Spoke with admissions at [facility] who reported 'they are tight on beds and won't have a bed until Saturday'. Discussed with pt again about other options as pt might be ready to dc by tomorrow and pt declined other facilities. Pt reports she rather go home with [facility] if she has to go by tomorrow. SW phoned and faxed referral to [facility]. Pt admission and acceptance pending. SW will continue to follow.
[2018-08-20 15:00] VITALS: BP 138/88
--- NOTE | 2018-08-20 17:07 | PATHOLOGY ---
[facility] Accession Number: [id number] . 01 Material submitted: . PART A: LOWER ESOPHAGUS BIOPSY PART B: PROXIMAL ESOPHAGUS BIOPSY . 01 Clinical history: . Dysphagia . 02 Diagnosis: A. Esophageal biopsy, lower esophagus: - Segments of gastric mucosa showing active chronic inflammation. . B. Esophageal biopsy, proximal esophagus: - Segments of hyperplastic squamous esophageal mucosa showing focal intraepithelial neutrophils and pseudohyphae consistent with Rebeca esophagitis. . (JPM:mml; 08/20/2018) [facility]/08/20/2018 . 02 Comment: Sections of the lower esophageal biopsy reveal segments of gastric mucosa showing mild to moderate active chronic inflammation. There is no squamous esophageal mucosa identified. There is no evidence of Alvarez's change, dysplasia or malignancy. . Sections of the proximal esophageal biopsy reveal segments of tangentially-oriented hyperplastic squamous esophageal mucosa with focal intraepithelial neutrophils. A PAS stain for fungus reveals focal presence of pseudohyphae consistent with Rebeca esophagitis. . Special stain performed: PAS stain for fungus on B1. . (JPM:mml; 08/20/2018) . 02 Electronically signed: . Morgan Johnston MD, Pathologist NPI- [id number] . 01 Gross description: . A. Received in formalin labeled "Michael, Kat, lower esophagus BX," are 2 segments of banks soft tissue measuring 0.7 x 0.2 x 0.1 cm in aggregate dimensions and ranging from 0.3 to 0.4 cm in maximum dimension. The specimen is submitted entirely in cassette A1. . B. Received in formalin labeled "Michael, Kat, proximal esophagus BX," are 2 segments of banks soft tissue measuring 0.7 x 0.3 x 0.1 cm in aggregate dimensions and ranging from 0.3 to 0.4 cm in maximum dimension. The specimen is submitted entirely in cassette B1. (TSD; 08/19/2018) TOB/TOB . 02 Pathologist provided ICD-10: K20.9, B37.81 . 02 CPT . 019883, 563977, 354131 Specimen Comment: A courtesy copy of this report has been sent to Specimen Comment: [phone], , , . Specimen Comment: Report sent to ,DR URIAS,DR CALLE / DR DEL RIO Specimen Comment: A duplicate report has been generated due to demographic updates. Performed at: 01 [facility] [address], [place] [id number] MD Yared Pittman MD Phone: [phone] Performed at: 02 [facility] [address] [place], [place] [id number] MD Morgan Johnston MD Phone: [phone]
[2018-08-20 19:43] VITALS: BP 130/86
[2018-08-20] MEDS: ZOLPIDEM 5 MG TABLET. PO PRN (21:36)
[2018-08-20] MEDS: ALPRAZolam 0.25 MG TABLET PO PRN (21:36)
[2018-08-20 23:16] VITALS: BP 158/81
[2018-08-21] VITALS (7 sets, daily range): BP systolic 126–171; BP diastolic 80–106
[2018-08-21] MEDS: HYDROmorphone 2 MG/ML VIAL IV PRN ×6 (01:59→22:04)
[2018-08-21] MEDS: PANTOPRAZOLE 40 MG TABLET.DR. PO SCH (08:01)
[2018-08-21] MEDS: METOCLOPRAMIDE ORAL SOLN 10 MG/10 ML SOLUTION. PO SCH ×4 (08:01→21:11)
[2018-08-21] MEDS: CEPHALEXIN 250 MG CAPSULE. PO SCH ×3 (08:40→21:11)
[2018-08-21] MEDS: LACTOBACILLUS RHAMNOSUS GG 1 CAPSULE. PO SCH ×2 (08:40→21:11)
[2018-08-21] MEDS: FOLIC ACID 1 MG TABLET. PO SCH (08:40)
[2018-08-21] MEDS: MULTIVITAMIN with MINERAL TABLET. PO SCH (08:40)
[2018-08-21] MEDS: FLUCONAZOLE 100 MG TABLET. PO SCH (08:40)
[2018-08-21] MEDS: THIAMINE 100 MG TABLET. PO SCH (08:40)
[2018-08-21] MEDS: POTASSIUM CHLORIDE 20 MEQ TABLET.ER. PO SCH (08:40)
[2018-08-21] MEDS: DULoxetine HCL 30 MG CAPSULE.DR PO SCH (08:40)
[2018-08-21] MEDS: amLODIPine BESYLATE 10 MG TABLET PO SCH (08:41)
[2018-08-21] MEDS: MECLIZINE HCL 12.5 MG TABLET. PO PRN ×2 (08:43→16:22)
[2018-08-21] MEDS: BENZONATATE 100 MG CAPSULE. PO PRN (08:50)
[2018-08-21] MEDS: ALPRAZolam 0.25 MG TABLET PO PRN ×3 (08:50→21:11)
[2018-08-21] MEDS: ONDANSETRON ODT 4 MG TAB.RAPDIS. PO PRN ×2 (08:51→16:22)
--- NOTE | 2018-08-21 09:59 | PDOC ---
Infectious Disease Note Subjective Subjective better since dilation. Tolerating meds Occ losse stool No F/C/S/SOA/RASH/N/V ROS ROS o/w neg Vital Sign Vital Signs Vital Signs Date Time Temp Pulse Resp B/P (MAP) Pulse Ox O2 Delivery O2 Flow Rate FiO2 08/21/18 09:56 18 Room Air 08/21/18 08:41 82 171/106 08/21/18 07:00 98.5 95 2.0 98.5 Physical Exam PHYSICAL EXAM General: No acute distress, coop in bed HEENT: Atraumatic, PERRLA, EOMI. Oc/Op - clear Lungs: Clear to auscultation, Normal air movement Heart: S1S2, no thrills, no rubs, no gallops, no murmurs, Abdomen: Soft, : kerns Extremities: No clubbing, No cyanosis, No edema, Normal pulses, No tenderness/ swelling Skin: No rashes, No breakdown, No significant lesion Neuro: nonfocal Psych/Mental Status: approp affect Labs Micro URINE CULTURE Final Final report URINE CULTURE RES 1 Final Escherichia coli Greater than 100,000 colony forming units per mL Cefazolin <=4 ug/mL Cefazolin with an DARCIE <=16 predicts susceptibility to the oral agents cefaclor, cefdinir, cefpodoxime, cefprozil, cefuroxime, cephalexin, and loracarbef when used for therapy of uncomplicated urinary tract infections due to E. coli, Klebsiella pneumoniae, and Proteus mirabilis. ANTIMICROBIAL SUSCEPTIBILITY Final Comment S = Susceptible; I = Intermediate; R = Resistant P = Positive; N = Negative MICS are expressed in micrograms per mL Antibiotic RSLT#1 RSLT#2 RSLT#3 RSLT#4 Amoxicillin/Clavulanic Acid S =4 Ampicillin S =4 Cefepime S<=0.12 Ceftriaxone S<=0.25 Cefuroxime S =4 Ciprofloxacin S<=0.25 Ertapenem S<=0.12 Gentamicin S<=1 Imipenem S<=0.25 Levofloxacin S<=0.12 Meropenem S<=0.25 Nitrofurantoin S<=16 Piperacillin/Tazobactam S<=4 Tetracycline S<=1 Tobramycin S<=1 Trimethoprim/Sulfa R>=320 Performed at: [facility] Impression: No radiopaque collecting system calculi or evidence of obstruction. Gas within the moderately distended urinary bladder is again seen. Correlate with history of intervention. No surrounding inflammatory changes about the urinary bladder. Correlate clinically in determining need for further assessment. Objective Assessment Ecoli UTI - POA - 08/16 S/p EGD - dilation ? Rebeca -esophagitis - per GI ? Barretts CKD HTN N/V/Dizziness POA some better- CT head neg Plan Plan of Care Cont Cephalexin 08/21 for 7 days Esophageal Rebeca per GI ID to sign off GILBERTO SEQUEIRA MD Aug 21, 2018 09:59
--- NOTE | 2018-08-21 10:27 | PDOC ---
CAROL MORENO NATUROPATHIC ONCOLOGY PROVIDER 08/21/18 1027: SUBJECTIVE Subjective Comfortable today OBJECTIVE Objective Physical Exam: General appearance: Alert and Oriented Head: Normocephalic, without obvious abnormality Eyes: conjunctivae/corneas clear. PERRL, EOM's intact. Fundi benign Lungs: Regular respirations, non labored breathing. Abdomen: soft, non-tender. Bowel sounds normal. No masses, no organomegaly Pelvic: + Drummond catheter in place draining clear yellow urine. Vital Signs Vital Signs Date Time Temp Pulse Resp B/P (MAP) Pulse Ox O2 Delivery O2 Flow Rate FiO2 08/21/18 09:56 18 Room Air 08/21/18 08:41 82 171/106 08/21/18 07:00 98.5 82 17 171/106 (127) 95 Nasal Cannula 2.0 98.5 08/21/18 06:34 13 97 Room Air 08/21/18 06:07 17 97 Room Air 08/21/18 03:34 98.6 83 18 153/91 (111) 97 Nasal Cannula 2.0 98.6 08/21/18 01:59 15 96 Room Air 08/20/18 23:16 98.4 87 18 158/81 (106) 96 Nasal Cannula 2.0 98.4 08/20/18 21:39 15 98 Room Air 08/20/18 20:00 Room Air 08/20/18 19:43 98.4 84 18 130/86 (101) 98 Nasal Cannula 2.0 98.4 08/20/18 18:33 3.0 08/20/18 15:00 98.2 94 18 138/88 (105) 97 Room Air 98.2 08/20/18 11:11 95 Room Air 3.0 08/20/18 11:00 98.6 84 18 127/76 (93) 95 Room Air 98.6 I & O Intake and Output 08/21/18 06:59 Intake Total 2100 ml Output Total 1650 ml Balance 450 ml Intake Oral 1100 ml IV Total 1000 ml Output Urine Total 1650 ml PHYSICAL EXAM Physical Exam Physical Exam: General appearance: Alert and Oriented Head: Normocephalic, without obvious abnormality Eyes: conjunctivae/corneas clear. PERRL, EOM's intact. Fundi benign Lungs: Regular respirations, non labored breathing. Abdomen: soft, non-tender. Bowel sounds normal. No masses, no organomegaly Pelvic: + Drummond catheter in place draining clear yellow urine. ASSESSMENT/PLAN Assessment/Plan A Drummond has been inserted and this should remain until the patient gets close to discharge. Unsure if air in bladder is from I and O cathing technique or UTI. Continue UTI treatment per ID. Whenever medical team discharges her home, Nursing staff can remove the Drummond. A follow up appointment has been arranged for patient to see Dr. Coreas on 11/05/18 at 1020 am for her annual Urology appointment at [facility] location. Appointment card put in chart and a copy given to patient. All questions answered. Will sign off at this time but please call with questions or changes in patient condition. Problems: (1) Drummond catheter in place (2) UTI (urinary tract infection) JOSE COREAS MD 08/22/18 1418: ASSESSMENT/PLAN Assessment/Plan agree w CAROL Cervantes APRN Aug 21, 2018 10:27 JOSE COREAS MD Aug 22, 2018 14:18
--- NOTE | 2018-08-21 10:56 | PDOC ---
Subjective: Subjective: Ate three bites of breakfast - no swallowing issues but says doesn't have an appetite and food doesn't taste good. Having loose stools. Objective: Vital Signs: Vital Signs Date Time Temp Pulse Resp B/P (MAP) Pulse Ox O2 Delivery O2 Flow Rate FiO2 08/21/18 09:56 18 Room Air 08/21/18 08:41 82 171/106 08/21/18 07:00 98.5 95 2.0 98.5 Labs: .PART A: LOWER ESOPHAGUS BIOPSY PART B: PROXIMAL ESOPHAGUS BIOPSY Diagnosis: A. Esophageal biopsy, lower esophagus: - Segments of gastric mucosa showing active chronic inflammation. B. Esophageal biopsy, proximal esophagus: - Segments of hyperplastic squamous esophageal mucosa showing focal intraepithelial neutrophils and pseudohyphae consistent with Rebeca esophagitis. Comment: Sections of the lower esophageal biopsy reveal segments of gastric mucosa showing mild to moderate active chronic inflammation. There is no squamous esophageal mucosa identified. There is no evidence of Alvarez's change, dysplasia or malignancy. Sections of the proximal esophageal biopsy reveal segments of tangentially- oriented hyperplastic squamous esophageal mucosa with focal intraepithelial neutrophils. A PAS stain for fungus reveals focal presence of pseudohyphae consistent with Rebeca esophagitis. PE: GEN: NAD LUNGS: CTAB HEART: RRR ABD: S/ND/NT NEURO/PSYCH: A & O 3, flat A/P: Dysphagia - resolved s/p esophageal dilation 08/19/18 Rebeca esophagitis - on Diflucan GERD - on PPI, distal esophagus biopsy negative for Alvarez's Decreased appetite, h/o gastroparesis - has Reglan susp TIDAC Urinary retention, UTI Chronic anemia, CKD, HTN -- Try Reglan QID. ANNE-MARIE GARCIA Aug 21, 2018 10:56
--- NOTE | 2018-08-21 13:25 | NUR ---
D/W Dr. Morales HTN and to renew kerns order for retention, to dc in a.m. prior to discharge. See notes and orders.
--- NOTE | 2018-08-21 13:52 | PDOC ---
PROGRESS NOTES Chief Complaint Chief Complaint intractable vomiting hypokalemia, volume depleted CKD- HTN emergency POA - SIRS possible sepsis on admission- History of VRE UTI was sensitive to Zyvox-in past Alcohol dependence Depression NOS Narcotic dependence hx Low lumbar spine postoperative spinal fusion noted with degenerative space narrowing at multiple levels. HX neurogenic bladder - self caths GERD History of Present Illness History of Present Illness 62-year-old female known to the hospital for chronic vomiting, chronic UTI from intermittently self caths, narcotic dependence. Poor appetite, very weak, has been to [facility] a few times for rehab. She was seen by GI for her dysphagia, was NPO for almost 3 days based on vomiting all clear liquid diet her first 3 days of admission. EGD on 08/19 showed stricture and candidal esophagitis. Started on nystatin. 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 She ate 3 bites of breakfast today, no vomiting. Does not have much appetite. Feels a little better. BP is starting to climb up. Plan: Hydrate, nausea meds, iv fluids Urine already growing e coli Zyvox + Rocephin - ID consult given complicated UTI hx Inserted kerns ADA diet Nystatin for esophageal candidiasis control blood pressure Alcohol cessation advised CIWA protocol Librium prn PPI etc. and other supportive meds Vitals Vitals Vital Signs Date Time Temp Pulse Resp B/P (MAP) Pulse Ox O2 Delivery O2 Flow Rate FiO2 08/21/18 11:00 98.6 83 16 136/91 (106) 95 Nasal Cannula 2.0 98.6 Physical Exam Physical Exam General: No acute distress, coop in bed HEENT: Atraumatic, PERRLA, EOMI. Oc/Op - clear Lungs: Clear to auscultation, Normal air movement Heart: S1S2, no thrills, no rubs, no gallops, no murmurs, Abdomen: Soft, : kerns Extremities: No clubbing, No cyanosis, No edema, Normal pulses, No tenderness/ swelling Skin: No rashes, No breakdown, No significant lesion Neuro: nonfocal Psych/Mental Status: approp affect General: Alert, Oriented X3, Cooperative, No acute distress, mild distress, Other (very shaky) Heart: Regular rate, No murmurs Lungs: Clear Abdomen: Normal bowel sounds, Soft, No tenderness, No hepatosplenomegaly, Other (nl bowel sounds) Extremities: No clubbing, No cyanosis, No edema, Normal pulses, No tenderness/ swelling Skin: No rashes, No breakdown, No significant lesion Assessment and Plan Assessmemt and Plan Problems Medical Problems: (1) Chronic back pain Status: Acute (2) Dizziness Status: Acute (3) Hypertensive urgency Status: Acute Comment Review of Relevant I have reviewed the following items blade (where applicable) has been applied. Labs Laboratory Tests Test 08/20/18 09:50 Sodium Level 140 mmol/L (136-145) Potassium Level 4.3 mmol/L (3.5-5.1) Chloride Level 104 mmol/L (98-107) Carbon Dioxide Level 28 mmol/L (21-32) Anion Gap 8 (6-14) Blood Urea Nitrogen 10 mg/dL (7-20) Creatinine 2.3 mg/dL (0.6-1.0) Estimated GFR (Cockcroft-Gault) 21.6 Glucose Level 70 mg/dL (70-99) Calcium Level 8.9 mg/dL (8.5-10.1) Microbiology 08/16/18 Urine Culture - Final, Complete 08/16/18 Urine Culture Result 1 (DARCIE) - Final, Complete 08/16/18 Antimicrobic Susceptibility - Final, Complete Medications Current Medications Sodium Chloride 1,000 ml @ 1,000 mls/hr 1X ONCE IV Last administered on at 14:30; Start 08/16/18 at 14:30; Stop 08/16/18 at 15:29; Status DC Ondansetron HCl (Zofran) 4 mg 1X ONCE IV Last administered on 08/16/18at 14:54 ; Start 08/16/18 at 15:00; Stop 08/16/18 at 15:01; Status DC Meclizine HCl (Antivert) 25 mg 1X ONCE PO Last administered on 08/16/18at 14:45 ; Start 08/16/18 at 14:45; Stop 08/16/18 at 14:46; Status DC Labetalol HCl (Normodyne Iv Push) 10 mg 1X ONCE IVP Last administered on at 14:45; Start 08/16/18 at 14:45; Stop 08/16/18 at 14:46; Status DC Fentanyl Citrate (Fentanyl 2ml Vial) 75 mcg 1X ONCE IV Last administered on at 15:15; Start 08/16/18 at 15:15; Stop 08/16/18 at 15:16; Status DC Famotidine (Pepcid Vial) 20 mg 1X ONCE IVP Last administered on 08/16/18at 15: 15; Start 08/16/18 at 15:15; Stop 08/16/18 at 15:16; Status DC Hydralazine HCl (Apresoline Inj) 20 mg 1X ONCE IVP Last administered on at 16:07; Start 08/16/18 at 16:00; Stop 08/16/18 at 16:02; Status DC Morphine Sulfate (Morphine Sulfate) 4 mg 1X ONCE IV ; Start 08/16/18 at 16:00; Stop 08/16/18 at 16:00; Status DC Diazepam (Valium) 5 mg 1X ONCE PO Last administered on 08/16/18at 16:07; Start 08/16/18 at 16:00; Stop 08/16/18 at 16:02; Status DC Sodium Chloride 1,000 ml @ 100 mls/hr Q10H IV Last administered on 08/16/18at 16:52; Start 08/16/18 at 16:52; Stop 08/17/18 at 02:52; Status DC Ondansetron HCl (Zofran) 4 mg PRN Q6HRS PRN IV NAUSEA/VOMITING 1ST CHOICE Last administered on 08/17/18at 12:38; Start 08/16/18 at 17:00 Prochlorperazine Edisylate (Compazine) 10 mg PRN Q6HRS PRN IV NAUSEA/VOMITING; Start 08/16/18 at 17:00; Stop 08/17/18 at 16:55; Status DC Prochlorperazine (Compazine) 25 mg PRN Q12HR PRN VA NAUSEA/VOMITING; Start at 17:00 Calcium Carbonate/ Glycine (Tums) 500 mg PRN Q3HRS PRN PO UPSET STOMACH; Start 08/16/18 at 17:00 Oxycodone HCl (Roxicodone) 5 mg PRN Q3HRS PRN PO BREAKTHROUGH PAIN; Start 08/16 at 17:00 Acetaminophen/ Hydrocodone Bitart (Lortab 5/325) 1 tab PRN Q4HRS PRN PO MILD PAIN; Start 08/16/18 at 17:00 Acetaminophen (Tylenol) 650 mg PRN Q6HRS PRN PO Headaches, Temp > 101.5F; Start 08/16/18 at 17:00 Magnesium Hydroxide (Milk Of Magnesia) 2,400 mg PRN Q12HR PRN PO CONSTIPATION; Start 08/16/18 at 17:00 Chlordiazepoxide (Librium) 25 mg PRN Q6HRS PRN PO ANXIETY / AGITATION, 2ND CHOIC; Start 08/16/18 at 17:00 Fentanyl Citrate (Fentanyl 2ml Vial) 50 mcg PRN Q2HR PRN IV PAIN Last administered on 08/17/18at 09:09; Start 08/16/18 at 17:00; Stop 08/17/18 at 11:00 ; Status DC Alprazolam (Xanax) 0.25 mg PRN Q8HRS PRN PO ANXIETY / AGITATION, 1ST CHOIC Last administered on 08/21/18at 08:50; Start 08/16/18 at 17:00 Zolpidem Tartrate (Ambien) 5 mg PRN QHS PRN PO INSOMNIA Last administered on at 21:36; Start 08/16/18 at 17:00 Multivitamins 10 ml/Folic Acid 1 mg/Sodium Chloride 1,010.2 ml @ 999.099 mls/ hr 1X ONCE IV Last administered on 08/16/18at 17:25; Start 08/16/18 at 17:00; Stop 08/16/18 at 18:00; Status DC Multivitamins (Thera M Plus) 1 tab DAILY PO Last administered on 08/21/18at 08: 40; Start 08/17/18 at 09:00 Thiamine Mononitrate (Vitamin B-1) 100 mg DAILY PO Last administered on at 08:40; Start 08/17/18 at 09:00 Folic Acid (Folic Acid) 1 mg DAILY PO Last administered on 08/21/18at 08:40; Start 08/17/18 at 09:00 Labetalol HCl (Normodyne Iv Push) 20 mg PRN Q2HR PRN IVP HYPERTENSION, SEE COMMENTS Last administered on 08/17/18 21:11; Start 08/16/18 at 17:00 Amlodipine Besylate (Norvasc) 10 mg DAILY PO Last administered on 08/21/18 08: 41; Start 08/17/18 at 09:00 Duloxetine HCl (Cymbalta) 90 mg DAILY PO Last administered on 08/21/18 08:40; Start 08/17/18 at 09:00 Lactobacillus Rhamnosus (Culturelle) 1 cap BID PO Last administered on 08:40; Start 08/16/18 at 21:00 Ondansetron HCl (Zofran Odt) 4 mg PRN Q8HRS PRN PO NAUSEA Last administered on 08/21/18 08:51; Start 08/16/18 at 17:00 Oxycodone/ Acetaminophen (Percocet 7.5/ 325) 1 tab PRN QID PRN PO PAIN SEVERE; Start 08/16/18 at 17:00 Albuterol Sulfate (Ventolin Neb Soln) 2.5 mg Q4HRS NEB ; Start 08/16/18 at 20:00 ; Stop 08/16/18 at 20:00; Status DC Benzonatate (Tessalon Perle) 100 mg PRN TID PRN PO COUGH Last administered on 08:50; Start 08/16/18 at 21:00 Pantoprazole Sodium (Protonix) 40 mg DAILYAC PO Last administered on 08/21/18 08:01; Start 08/17/18 at 07:30 Meclizine HCl (Antivert) 25 mg PRN Q8HRS PRN PO DIZZINESS Last administered on 08/21/18 08:43; Start 08/16/18 at 17:30 Prochlorperazine Edisylate (Compazine) 10 mg PRN Q6HRS PRN IV NAUSEA/VOMITING 2ND CHOICE; Start 08/16/18 at 17:00 Thiamine Mononitrate (Vitamin B-1) 100 mg ONCE ONCE PO Last administered on 17:25; Start 08/16/18 at 17:15; Stop 08/16/18 at 17:25; Status DC Ondansetron HCl (Zofran) 4 mg PRN Q8HRS PRN IV NAUSEA/VOMITING; Start 08/16/18 at 17:30; Stop 08/17/18 at 17:29; Status DC Albuterol Sulfate (Ventolin Neb Soln) 2.5 mg PRN Q4HRS PRN NEB WHEEZING; Start 08/16/18 at 18:00 Ceftriaxone Sodium (Rocephin) 1 gm Q24H IVP ; Start 08/17/18 at 11:30; Stop at 11:30; Status DC Potassium Chloride (Klor-Con) 40 meq 1X ONCE PO Last administered on at 13:07; Start 08/17/18 at 11:00; Stop 08/17/18 at 11:01; Status DC Potassium Chloride (Klor-Con) 20 meq DAILYWBKFT PO Last administered on at 08:40; Start 08/18/18 at 08:00 Linezolid/Dextrose 300 ml @ 300 mls/hr Q12HR IV Last administered on at 22:02; Start 08/17/18 at 12:00; Stop 08/19/18 at 11:27; Status DC Hydromorphone HCl (Dilaudid) 1 mg PRN Q4HRS PRN IV PAIN Last administered on at 09:56; Start 08/17/18 at 11:15 Ceftriaxone Sodium (Rocephin) 1 gm Q24H IVP Last administered on 08/19/18at 13: 02; Start 08/18/18 at 11:00; Stop 08/20/18 at 09:02; Status DC Midazolam HCl (Versed) 2 mg PRN 1X PRN IV PRIOR TO PROCEDURE; Start 08/19/18 at 09:00; Stop 08/20/18 at 08:59; Status DC Fentanyl Citrate (Fentanyl 2ml Vial) 25 mcg PRN Q5MIN PRN IV X 2 DOSES FOR PAIN ; Start 08/19/18 at 09:00; Stop 08/20/18 at 08:59; Status DC Fentanyl Citrate (Fentanyl 2ml Vial) 50 mcg PRN Q5MIN PRN IV X 2 DOSES FOR PAIN ; Start 08/19/18 at 09:00; Stop 08/20/18 at 08:59; Status DC Ringer's Solution 1,000 ml @ 125 mls/hr Q8H IV Last administered on 08/19/18at 08:58; Start 08/19/18 at 08:58; Stop 08/19/18 at 20:57; Status DC Lidocaine HCl (Xylocaine-Mpf 1% 2ml Vial) 2 ml 1X PRN PRN ID IV START; Start at 09:00; Stop 08/20/18 at 08:59; Status DC Propofol 20 ml @ As Directed STK-MED ONCE IV ; Start 08/19/18 at 11:34; Stop at 11:35; Status DC Fluconazole (Diflucan) 100 mg DAILY PO Last administered on 08/21/18at 08:40; Start 08/19/18 at 12:00 Metoclopramide HCl (Reglan Oral Solution) 10 mg TIDACHC PO Last administered on 08/21/18at 11:27; Start 08/19/18 at 12:00 Ceftriaxone Sodium (Rocephin) 1 gm 1X ONCE IVP ; Start 08/20/18 at 09:00; Stop 08/20/18 at 09:15; Status DC Cephalexin HCl (Keflex) 500 mg TID PO Last administered on 08/21/18at 08:40; Start 08/21/18 at 09:00 Sodium Chloride 1,000 ml @ 100 mls/hr 1X ONCE IV Last administered on at 11:10; Start 08/20/18 at 09:45; Stop 08/20/18 at 19:44; Status DC Active Scripts Active Macrobid 100 Mg Capsule (Nitrofurantoin Monohyd/M-Cryst) 100 Mg Capsule 1 Cap PO BID Medrol (Methylprednisolone) 4 Mg Tab.ds.pk 1 Pkg PO UD Orphenadrine Citrate 100 Mg Tablet.er 100 Mg PO BID Meclizine Hcl 25 Mg Tablet 25 Mg PO PRN TID PRN dizziness Tessalon Perle (Benzonatate) 100 Mg Capsule 1 Cap PO TID PRN Ventolin Hfa Inhaler (Albuterol Sulfate) 18 Gm Hfa.aer.ad 2 Puff INH Q4HRS 30 Days Culturelle (Lactobacillus Rhamnosus Gg) 1 Each Cap.sprink 1 Cap PO BID 14 Days [Ceftriaxone Sodium] 1 GM Vial 1 Gm IVP Q24H 7 Days Zofran Odt (Ondansetron) 4 Mg Tab.rapdis 1 Tab SL Q8HRS PRN Zofran Odt (Ondansetron) 4 Mg Tab.rapdis 1 Tab SL Q8HRS Percocet 7.5-325 Mg Tablet (Oxycodone/Acetaminophen) 1 Each Tablet 1 Tab PO QID Cymbalta (Duloxetine Hcl) 30 Mg Capsule. 90 Mg PO DAILY 30 Days Reported Amlodipine Besylate 10 Mg Tablet 10 Mg PO DAILY Nexium Capsule (Esomeprazole Magnesium) 40 Mg Capsule. 1 Cap PO DAILY Vitals/I & O Vital Sign - Last 24 Hours 08/20/18 08/20/18 08/20/18 08/20/18 15:00 18:33 19:43 20:00 Temp 98.2 98.4 98.2 98.4 Pulse 94 84 Resp 18 18 B/P (MAP) 138/88 (105) 130/86 (101) Pulse Ox 97 98 O2 Delivery Room Air Nasal Cannula Room Air O2 Flow Rate 3.0 2.0 08/20/18 08/20/18 08/21/18 08/21/18 21:39 23:16 01:59 03:34 Temp 98.4 98.6 98.4 98.6 Pulse 87 83 Resp 15 18 15 18 B/P (MAP) 158/81 (106) 153/91 (111) Pulse Ox 98 96 96 97 O2 Delivery Room Air Nasal Cannula Room Air Nasal Cannula O2 Flow Rate 2.0 2.0 08/21/18 08/21/18 08/21/18 08/21/18 06:07 06:34 07:00 08:00 Temp 98.5 98.5 Pulse 82 Resp 17 17 B/P (MAP) 171/106 (127) Pulse Ox 97 97 95 O2 Delivery Room Air Nasal Cannula Room Air O2 Flow Rate 2.0 08/21/18 08/21/18 08/21/18 08/21/18 08:41 09:56 10:26 11:00 Temp 98.6 98.6 Pulse 82 83 Resp 18 18 16 B/P (MAP) 171/106 136/91 (106) Pulse Ox 95 O2 Delivery Room Air Room Air Nasal Cannula O2 Flow Rate 2.0 Intake and Output 08/20/18 08/20/18 08/21/18 14:59 22:59 06:59 Intake Total 600 ml 1300 ml 200 ml Output Total 650 ml 1000 ml Balance 600 ml 650 ml -800 ml DEN PACHECO MD Aug 21, 2018 13:52
--- NOTE | 2018-08-21 14:01 | NUR ---
JOHNSON following pt. Spoke with Irlanda at [facility]. They have accepted pt pending insurance approval but is not sure if they will have bed available by tomorrow. Mariusz will notify JOHNSON tomorrow by 0900 if they will have a bed or they can take pt on Saturday pending insurance approval. Discussed with pt and she reported she does not want to go anywhere else beside [facility]. Physician notified. Will continue to follow.
[2018-08-21] MEDS: ZOLPIDEM 5 MG TABLET. PO PRN (21:11)
[2018-08-22] MEDS: HYDROmorphone 2 MG/ML VIAL IV PRN ×6 (02:11→22:18)
[2018-08-22 03:00] VITALS: BP 191/92
[2018-08-22] MEDS: LABETALOL 20 MG/4 ML DISP.SYRIN. IVP PRN (03:26)
[2018-08-22 07:00] VITALS: BP 130/82
[2018-08-22] MEDS: PANTOPRAZOLE 40 MG TABLET.DR. PO SCH (07:41)
[2018-08-22] MEDS: METOCLOPRAMIDE ORAL SOLN 10 MG/10 ML SOLUTION. PO SCH ×4 (07:41→21:10)
[2018-08-22] MEDS: CEPHALEXIN 250 MG CAPSULE. PO SCH ×3 (08:25→21:10)
[2018-08-22] MEDS: MULTIVITAMIN with MINERAL TABLET. PO SCH (08:25)
[2018-08-22] MEDS: BENZONATATE 100 MG CAPSULE. PO PRN (08:25)
[2018-08-22] MEDS: DULoxetine HCL 30 MG CAPSULE.DR PO SCH (08:25)
[2018-08-22] MEDS: THIAMINE 100 MG TABLET. PO SCH (08:26)
[2018-08-22] MEDS: ONDANSETRON ODT 4 MG TAB.RAPDIS. PO PRN (08:26)
[2018-08-22] MEDS: amLODIPine BESYLATE 10 MG TABLET PO SCH (08:26)
[2018-08-22] MEDS: MECLIZINE HCL 12.5 MG TABLET. PO PRN (08:26)
[2018-08-22] MEDS: FOLIC ACID 1 MG TABLET. PO SCH (08:26)
[2018-08-22] MEDS: FLUCONAZOLE 100 MG TABLET. PO SCH (08:26)
[2018-08-22] MEDS: ALPRAZolam 0.25 MG TABLET PO PRN ×3 (08:26→21:23)
[2018-08-22] MEDS: POTASSIUM CHLORIDE 20 MEQ TABLET.ER. PO SCH (08:27)
[2018-08-22] MEDS: LACTOBACILLUS RHAMNOSUS GG 1 CAPSULE. PO SCH ×2 (08:27→21:10)
[2018-08-22 11:00] VITALS: BP 129/80
--- NOTE | 2018-08-22 11:49 | PDOC ---
Subjective: Subjective: Significant time spent in her room this morning. No dysphagia/odynophagia or abd pain but has no appetite. Shares that she had an argument with her daughter and her friends don't want to help her anymore. Says her son-in-law is mean to her and her granddaughter won' t talk to her. I asked if she knew any reason why - she thinks maybe because she's been drinking wine. Says she drinks because she wants to faster. Was also off her depression meds for a time because her meds were accidentally thrown away and she didn't want to go back to see her former PCP. Doesn't want to spend her birthday alone in rehab. Doesn't have any clothes to wear there and no one will bring her any. Can't afford a prison but doesn 't want to go home (lives with her daughter, etc.). Interested in stopping drinking again - said inpt alcohol rehab didn't work and AA didn't work. Objective: Vital Signs: Vital Signs Date Time Temp Pulse Resp B/P (MAP) Pulse Ox O2 Delivery O2 Flow Rate FiO2 08/22/18 10:22 18 Room Air 08/22/18 08:26 75 130/82 08/22/18 07:00 98.7 94 98.7 08/21/18 15:00 2.0 PE: GEN: NAD LUNGS: CTAB HEART: RRR ABD: NABS, S/ND/NT NEURO/PSYCH: A & O 3 A/P: Dysphagia - resolved Rebeca esophagitis - on Diflucan GERD - on PPI QD Gastroparesis - on Reglan susp QIDACHS Decreased appetite, depression -- ?DC plans to rehab Encouraged PO. D/w RN and Dr. Morales. ANNE-MARIE GARCIA Aug 22, 2018 11:49
--- NOTE | 2018-08-22 12:00 | NUR ---
SW following. Spoke with Mariusz at [facility] and they wont have a bed even for tomorrow. Discussed with pt and she reports she rather go home. She is also refusing HH at this time. NENITA GUSMAN.
[2018-08-22 15:00] VITALS: BP 111/80
--- NOTE | 2018-08-22 15:08 | NUR ---
JOHNSON notified by RN pt would like to discuss about other options. Pt now reports she knows she needs to go to rehab before she goes home. Discussed about options and medicare star ratings. Pt now agreeable with [facility]. JOHNSON phoned and faxed referral to [facility] and requested [facility] to submit for auth if they accept. Pt acceptance and admission pending. Will continue to follow.
--- NOTE | 2018-08-22 16:13 | NUR ---
SW following. Pt has been accepted at and insurance has approved. Pt will need to dc tomorrow morning to or insurance will . RN and physician notified. Packet on chart.
[2018-08-22 19:00] VITALS: BP 120/76
[2018-08-22] MEDS: ZOLPIDEM 5 MG TABLET. PO PRN (21:23)
[2018-08-22] MEDS: oxyCODONE/APAP 7.5/325 1 TAB TABLET PO PRN (21:23)
--- NOTE | 2018-08-22 21:51 | PDOC ---
PROGRESS NOTES Chief Complaint Chief Complaint intractable vomiting hypokalemia, volume depleted CKD- HTN emergency POA - SIRS possible sepsis on admission- History of VRE UTI was sensitive to Zyvox-in past Alcohol dependence Depression NOS Narcotic dependence hx Low lumbar spine postoperative spinal fusion noted with degenerative space narrowing at multiple levels. HX neurogenic bladder - self caths GERD History of Present Illness History of Present Illness 62-year-old female known to the hospital for chronic vomiting, chronic UTI from intermittently self caths, narcotic dependence. Poor appetite, very weak, has been to [facility] a few times for rehab. She was seen by GI for her dysphagia, was NPO for almost 3 days based on vomiting all clear liquid diet her first 3 days of admission. EGD on 08/19 showed stricture and candidal esophagitis. Started on nystatin. 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 08/21: She ate 3 bites of breakfast today, no vomiting. Does not have much appetite. Feels a little better. BP is starting to climb up. She is feeling somewhat depressed today. Still very weak, feels like eating more. No CP, some SOB. Plan: Hydrate, nausea meds, iv fluids Urine already growing e coli Zyvox + Rocephin - ID consult given complicated UTI hx Inserted kerns ADA diet Nystatin for esophageal candidiasis control blood pressure Alcohol cessation advised CIWA protocol Librium prn PPI etc. and other supportive meds Vitals Vitals Vital Signs Date Time Temp Pulse Resp B/P (MAP) Pulse Ox O2 Delivery O2 Flow Rate FiO2 08/22/18 21:23 20 Room Air 08/22/18 19:00 98.6 78 120/76 (91) 97 98.6 08/21/18 15:00 2.0 Physical Exam Physical Exam General: No acute distress, coop in bed HEENT: Atraumatic, PERRLA, EOMI. Oc/Op - clear Lungs: Clear to auscultation, Normal air movement Heart: S1S2, no thrills, no rubs, no gallops, no murmurs, Abdomen: Soft, : kerns Extremities: No clubbing, No cyanosis, No edema, Normal pulses, No tenderness/ swelling Skin: No rashes, No breakdown, No significant lesion Neuro: nonfocal Psych/Mental Status: approp affect General: Alert, Oriented X3, Cooperative, No acute distress, mild distress, Other (very shaky) Heart: Regular rate, No murmurs Lungs: Clear Abdomen: Normal bowel sounds, Soft, No tenderness, No hepatosplenomegaly, Other (nl bowel sounds) Extremities: No clubbing, No cyanosis, No edema, Normal pulses, No tenderness/ swelling Skin: No rashes, No breakdown, No significant lesion Assessment and Plan Assessmemt and Plan Problems Medical Problems: (1) Chronic back pain Status: Acute (2) Dizziness Status: Acute (3) Hypertensive urgency Status: Acute Comment Review of Relevant I have reviewed the following items blade (where applicable) has been applied. Labs Microbiology 08/16/18 Urine Culture - Final, Complete 08/16/18 Urine Culture Result 1 (DARCIE) - Final, Complete 08/16/18 Antimicrobic Susceptibility - Final, Complete Medications Current Medications Sodium Chloride 1,000 ml @ 1,000 mls/hr 1X ONCE IV Last administered on at 14:30; Start 08/16/18 at 14:30; Stop 08/16/18 at 15:29; Status DC Ondansetron HCl (Zofran) 4 mg 1X ONCE IV Last administered on 08/16/18at 14:54 ; Start 08/16/18 at 15:00; Stop 08/16/18 at 15:01; Status DC Meclizine HCl (Antivert) 25 mg 1X ONCE PO Last administered on 08/16/18at 14:45 ; Start 08/16/18 at 14:45; Stop 08/16/18 at 14:46; Status DC Labetalol HCl (Normodyne Iv Push) 10 mg 1X ONCE IVP Last administered on at 14:45; Start 08/16/18 at 14:45; Stop 08/16/18 at 14:46; Status DC Fentanyl Citrate (Fentanyl 2ml Vial) 75 mcg 1X ONCE IV Last administered on at 15:15; Start 08/16/18 at 15:15; Stop 08/16/18 at 15:16; Status DC Famotidine (Pepcid Vial) 20 mg 1X ONCE IVP Last administered on 08/16/18at 15: 15; Start 08/16/18 at 15:15; Stop 08/16/18 at 15:16; Status DC Hydralazine HCl (Apresoline Inj) 20 mg 1X ONCE IVP Last administered on at 16:07; Start 08/16/18 at 16:00; Stop 08/16/18 at 16:02; Status DC Morphine Sulfate (Morphine Sulfate) 4 mg 1X ONCE IV ; Start 08/16/18 at 16:00; Stop 08/16/18 at 16:00; Status DC Diazepam (Valium) 5 mg 1X ONCE PO Last administered on 08/16/18at 16:07; Start 08/16/18 at 16:00; Stop 08/16/18 at 16:02; Status DC Sodium Chloride 1,000 ml @ 100 mls/hr Q10H IV Last administered on 08/16/18at 16:52; Start 08/16/18 at 16:52; Stop 08/17/18 at 02:52; Status DC Ondansetron HCl (Zofran) 4 mg PRN Q6HRS PRN IV NAUSEA/VOMITING 1ST CHOICE Last administered on 08/17/18at 12:38; Start 08/16/18 at 17:00 Prochlorperazine Edisylate (Compazine) 10 mg PRN Q6HRS PRN IV NAUSEA/VOMITING; Start 08/16/18 at 17:00; Stop 08/17/18 at 16:55; Status DC Prochlorperazine (Compazine) 25 mg PRN Q12HR PRN ND NAUSEA/VOMITING; Start at 17:00 Calcium Carbonate/ Glycine (Tums) 500 mg PRN Q3HRS PRN PO UPSET STOMACH; Start 08/16/18 at 17:00 Oxycodone HCl (Roxicodone) 5 mg PRN Q3HRS PRN PO BREAKTHROUGH PAIN; Start 08/16 at 17:00 Acetaminophen/ Hydrocodone Bitart (Lortab 5/325) 1 tab PRN Q4HRS PRN PO MILD PAIN; Start 08/16/18 at 17:00 Acetaminophen (Tylenol) 650 mg PRN Q6HRS PRN PO Headaches, Temp > 101.5F; Start 08/16/18 at 17:00 Magnesium Hydroxide (Milk Of Magnesia) 2,400 mg PRN Q12HR PRN PO CONSTIPATION; Start 08/16/18 at 17:00 Chlordiazepoxide (Librium) 25 mg PRN Q6HRS PRN PO ANXIETY / AGITATION, 2ND CHOIC; Start 08/16/18 at 17:00 Fentanyl Citrate (Fentanyl 2ml Vial) 50 mcg PRN Q2HR PRN IV PAIN Last administered on 08/17/18at 09:09; Start 08/16/18 at 17:00; Stop 08/17/18 at 11:00 ; Status DC Alprazolam (Xanax) 0.25 mg PRN Q8HRS PRN PO ANXIETY / AGITATION, 1ST CHOIC Last administered on 08/21/18at 08:50; Start 08/16/18 at 17:00; Stop 08/21/18 at 14:11; Status DC Zolpidem Tartrate (Ambien) 5 mg PRN QHS PRN PO INSOMNIA Last administered on 21:23; Start 08/16/18 at 17:00 Multivitamins 10 ml/Folic Acid 1 mg/Sodium Chloride 1,010.2 ml @ 999.099 mls/ hr 1X ONCE IV Last administered on 08/16/18 17:25; Start 08/16/18 at 17:00; Stop 08/16/18 at 18:00; Status DC Multivitamins (Thera M Plus) 1 tab DAILY PO Last administered on 08/22/18 08: 25; Start 08/17/18 at 09:00 Thiamine Mononitrate (Vitamin B-1) 100 mg DAILY PO Last administered on 08:26; Start 08/17/18 at 09:00 Folic Acid (Folic Acid) 1 mg DAILY PO Last administered on 08/22/18 08:26; Start 08/17/18 at 09:00 Labetalol HCl (Normodyne Iv Push) 20 mg PRN Q2HR PRN IVP HYPERTENSION, SEE COMMENTS Last administered on 08/22/18at 03:26; Start 08/16/18 at 17:00 Amlodipine Besylate (Norvasc) 10 mg DAILY PO Last administered on 08/22/18 08: 26; Start 08/17/18 at 09:00 Duloxetine HCl (Cymbalta) 90 mg DAILY PO Last administered on 08/22/18 08:25; Start 08/17/18 at 09:00 Lactobacillus Rhamnosus (Culturelle) 1 cap BID PO Last administered on 21:10; Start 08/16/18 at 21:00 Ondansetron HCl (Zofran Odt) 4 mg PRN Q8HRS PRN PO NAUSEA Last administered on 08/22/18 08:26; Start 08/16/18 at 17:00 Oxycodone/ Acetaminophen (Percocet 7.5/ 325) 1 tab PRN QID PRN PO PAIN SEVERE Last administered on 08/22/18 21:23; Start 08/16/18 at 17:00 Albuterol Sulfate (Ventolin Neb Soln) 2.5 mg Q4HRS NEB ; Start 08/16/18 at 20:00 ; Stop 08/16/18 at 20:00; Status DC Benzonatate (Tessalon Perle) 100 mg PRN TID PRN PO COUGH Last administered on 08:25; Start 08/16/18 at 21:00 Pantoprazole Sodium (Protonix) 40 mg DAILYAC PO Last administered on 08/22/18 07:41; Start 08/17/18 at 07:30 Meclizine HCl (Antivert) 25 mg PRN Q8HRS PRN PO DIZZINESS Last administered on 08/22/18 08:26; Start 08/16/18 at 17:30 Prochlorperazine Edisylate (Compazine) 10 mg PRN Q6HRS PRN IV NAUSEA/VOMITING 2ND CHOICE; Start 08/16/18 at 17:00 Thiamine Mononitrate (Vitamin B-1) 100 mg ONCE ONCE PO Last administered on 17:25; Start 08/16/18 at 17:15; Stop 08/16/18 at 17:25; Status DC Ondansetron HCl (Zofran) 4 mg PRN Q8HRS PRN IV NAUSEA/VOMITING; Start 08/16/18 at 17:30; Stop 08/17/18 at 17:29; Status DC Albuterol Sulfate (Ventolin Neb Soln) 2.5 mg PRN Q4HRS PRN NEB WHEEZING; Start 08/16/18 at 18:00 Ceftriaxone Sodium (Rocephin) 1 gm Q24H IVP ; Start 08/17/18 at 11:30; Stop at 11:30; Status DC Potassium Chloride (Klor-Con) 40 meq 1X ONCE PO Last administered on at 13:07; Start 08/17/18 at 11:00; Stop 08/17/18 at 11:01; Status DC Potassium Chloride (Klor-Con) 20 meq DAILYWBKFT PO Last administered on at 08:27; Start 08/18/18 at 08:00 Linezolid/Dextrose 300 ml @ 300 mls/hr Q12HR IV Last administered on at 22:02; Start 08/17/18 at 12:00; Stop 08/19/18 at 11:27; Status DC Hydromorphone HCl (Dilaudid) 1 mg PRN Q4HRS PRN IV PAIN Last administered on at 17:54; Start 08/17/18 at 11:15 Ceftriaxone Sodium (Rocephin) 1 gm Q24H IVP Last administered on 08/19/18at 13: 02; Start 08/18/18 at 11:00; Stop 08/20/18 at 09:02; Status DC Midazolam HCl (Versed) 2 mg PRN 1X PRN IV PRIOR TO PROCEDURE; Start 08/19/18 at 09:00; Stop 08/20/18 at 08:59; Status DC Fentanyl Citrate (Fentanyl 2ml Vial) 25 mcg PRN Q5MIN PRN IV X 2 DOSES FOR PAIN ; Start 08/19/18 at 09:00; Stop 08/20/18 at 08:59; Status DC Fentanyl Citrate (Fentanyl 2ml Vial) 50 mcg PRN Q5MIN PRN IV X 2 DOSES FOR PAIN ; Start 08/19/18 at 09:00; Stop 08/20/18 at 08:59; Status DC Ringer's Solution 1,000 ml @ 125 mls/hr Q8H IV Last administered on 08/19/18at 08:58; Start 08/19/18 at 08:58; Stop 08/19/18 at 20:57; Status DC Lidocaine HCl (Xylocaine-Mpf 1% 2ml Vial) 2 ml 1X PRN PRN ID IV START; Start at 09:00; Stop 08/20/18 at 08:59; Status DC Propofol 20 ml @ As Directed STK-MED ONCE IV ; Start 08/19/18 at 11:34; Stop at 11:35; Status DC Fluconazole (Diflucan) 100 mg DAILY PO Last administered on 08/22/18at 08:26; Start 08/19/18 at 12:00 Metoclopramide HCl (Reglan Oral Solution) 10 mg TIDACHC PO Last administered on 08/22/18at 21:10; Start 08/19/18 at 12:00 Ceftriaxone Sodium (Rocephin) 1 gm 1X ONCE IVP ; Start 08/20/18 at 09:00; Stop 08/20/18 at 09:15; Status DC Cephalexin HCl (Keflex) 500 mg TID PO Last administered on 08/22/18at 21:10; Start 08/21/18 at 09:00 Sodium Chloride 1,000 ml @ 100 mls/hr 1X ONCE IV Last administered on at 11:10; Start 08/20/18 at 09:45; Stop 08/20/18 at 19:44; Status DC Alprazolam (Xanax) 0.25 mg PRN TID PRN PO ANXIETY / AGITATION, 1ST CHOIC Last administered on 08/22/18at 21:23; Start 08/21/18 at 14:15 Active Scripts Active Macrobid 100 Mg Capsule (Nitrofurantoin Monohyd/M-Cryst) 100 Mg Capsule 1 Cap PO BID Medrol (Methylprednisolone) 4 Mg Tab.ds.pk 1 Pkg PO UD Orphenadrine Citrate 100 Mg Tablet.er 100 Mg PO BID Meclizine Hcl 25 Mg Tablet 25 Mg PO PRN TID PRN dizziness Tessalon Perle (Benzonatate) 100 Mg Capsule 1 Cap PO TID PRN Ventolin Hfa Inhaler (Albuterol Sulfate) 18 Gm Hfa.aer.ad 2 Puff INH Q4HRS 30 Days Culturelle (Lactobacillus Rhamnosus Gg) 1 Each Cap.sprink 1 Cap PO BID 14 Days [Ceftriaxone Sodium] 1 GM Vial 1 Gm IVP Q24H 7 Days Zofran Odt (Ondansetron) 4 Mg Tab.rapdis 1 Tab SL Q8HRS PRN Zofran Odt (Ondansetron) 4 Mg Tab.rapdis 1 Tab SL Q8HRS Percocet 7.5-325 Mg Tablet (Oxycodone/Acetaminophen) 1 Each Tablet 1 Tab PO QID Cymbalta (Duloxetine Hcl) 30 Mg Capsule. 90 Mg PO DAILY 30 Days Reported Amlodipine Besylate 10 Mg Tablet 10 Mg PO DAILY Nexium Capsule (Esomeprazole Magnesium) 40 Mg Capsule. 1 Cap PO DAILY Vitals/I & O Vital Sign - Last 24 Hours 08/21/18 08/21/18 08/22/18 08/22/18 22:04 22:53 02:11 03:00 Temp 98.7 98.7 98.7 98.7 Pulse 88 84 Resp 15 18 18 18 B/P (MAP) 143/80 (101) 191/92 (125) Pulse Ox 97 93 93 94 O2 Delivery Room Air Room Air Room Air Room Air 08/22/18 08/22/18 08/22/18 08/22/18 03:26 06:12 06:36 07:00 Temp 98.7 98.7 Pulse 84 75 Resp 16 14 B/P (MAP) 191/92 130/82 (98) Pulse Ox 93 93 94 O2 Delivery Room Air Room Air 08/22/18 08/22/18 08/22/18 08/22/18 08:00 08:26 09:52 11:00 Temp 98.7 98.7 Pulse 75 77 Resp 18 16 B/P (MAP) 130/82 129/80 (96) Pulse Ox 94 O2 Delivery Room Air Room Air Room Air 08/22/18 08/22/18 08/22/18 08/22/18 14:01 14:31 15:00 17:54 Temp 98.2 98.2 Pulse 80 Resp 18 18 18 B/P (MAP) 111/80 (90) Pulse Ox 98 O2 Delivery Room Air Room Air Room Air Room Air 08/22/18 08/22/18 08/22/18 18:16 19:00 21:23 Temp 98.6 98.6 Pulse 78 Resp 18 18 20 B/P (MAP) 120/76 (91) Pulse Ox 97 O2 Delivery Room Air Room Air Intake and Output 08/21/18 08/21/18 08/22/18 14:59 22:59 06:59 Intake Total 530 ml 425 ml Output Total 600 ml 350 ml 600 ml Balance -70 ml 75 ml -600 ml DEN PACHECO MD Aug 22, 2018 21:51
[2018-08-22 23:00] VITALS: BP 120/85
[2018-08-23] MEDS: HYDROmorphone 2 MG/ML VIAL IV PRN ×2 (02:44→06:57)
[2018-08-23 02:59] VITALS: BP 120/74
[2018-08-23] MEDS: oxyCODONE/APAP 7.5/325 1 TAB TABLET PO PRN ×2 (03:46→11:15)
[2018-08-23 07:00] VITALS: BP 110/77
--- NOTE | 2018-08-23 08:00 | PDOC ---
PROGRESS NOTES Chief Complaint Chief Complaint intractable vomiting hypokalemia, volume depleted CKD- HTN emergency POA - SIRS possible sepsis on admission- History of VRE UTI was sensitive to Zyvox-in past Alcohol dependence Depression NOS Narcotic dependence hx Low lumbar spine postoperative spinal fusion noted with degenerative space narrowing at multiple levels. HX neurogenic bladder - self caths GERD History of Present Illness History of Present Illness 62-year-old female known to the hospital for chronic vomiting, chronic UTI from intermittently self caths, narcotic dependence. Poor appetite, very weak, has been to [facility] for rehab. She was seen by GI for her dysphagia, was NPO for almost 3 days based on vomiting all clear liquid diet her first 3 days of admission. EGD on 08/19 showed stricture and candidal esophagitis. Started on nystatin. 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 08/21: She ate 3 bites of breakfast today, no vomiting. Does not have much appetite. Feels a little better. BP is starting to climb up. She is feeling somewhat depressed today. Still very weak, feels like eating more. No CP, some SOB. She states she is ready to leave the hospital and go to SNF Plan: Hydrate, nausea meds, iv fluids Urine already growing e coli Zyvox + Rocephin - ID consult given complicated UTI hx Inserted kerns ADA diet Nystatin for esophageal candidiasis control blood pressure Alcohol cessation advised CIWA protocol Librium prn PPI etc. and other supportive meds Vitals Vitals Vital Signs Date Time Temp Pulse Resp B/P (MAP) Pulse Ox O2 Delivery O2 Flow Rate FiO2 08/23/18 07:00 98.2 93 18 110/77 (88) 96 Room Air 98.2 Physical Exam Physical Exam General: No acute distress, coop in bed HEENT: Atraumatic, PERRLA, EOMI. Oc/Op - clear Lungs: Clear to auscultation, Normal air movement Heart: S1S2, no thrills, no rubs, no gallops, no murmurs, Abdomen: Soft, : kerns Extremities: No clubbing, No cyanosis, No edema, Normal pulses, No tenderness/ swelling Skin: No rashes, No breakdown, No significant lesion Neuro: nonfocal Psych/Mental Status: approp affect General: Alert, Oriented X3, Cooperative, No acute distress, mild distress, Other (very shaky) Heart: Regular rate, No murmurs Lungs: Clear Abdomen: Normal bowel sounds, Soft, No tenderness, No hepatosplenomegaly, Other (nl bowel sounds) Extremities: No clubbing, No cyanosis, No edema, Normal pulses, No tenderness/ swelling Skin: No rashes, No breakdown, No significant lesion Assessment and Plan Assessmemt and Plan Problems Medical Problems: (1) Chronic back pain Status: Acute (2) Dizziness Status: Acute (3) Hypertensive urgency Status: Acute Comment Review of Relevant I have reviewed the following items blade (where applicable) has been applied. Labs Microbiology 08/16/18 Urine Culture - Final, Complete 08/16/18 Urine Culture Result 1 (DARCIE) - Final, Complete 08/16/18 Antimicrobic Susceptibility - Final, Complete Medications Current Medications Sodium Chloride 1,000 ml @ 1,000 mls/hr 1X ONCE IV Last administered on at 14:30; Start 08/16/18 at 14:30; Stop 08/16/18 at 15:29; Status DC Ondansetron HCl (Zofran) 4 mg 1X ONCE IV Last administered on 08/16/18at 14:54 ; Start 08/16/18 at 15:00; Stop 08/16/18 at 15:01; Status DC Meclizine HCl (Antivert) 25 mg 1X ONCE PO Last administered on 08/16/18at 14:45 ; Start 08/16/18 at 14:45; Stop 08/16/18 at 14:46; Status DC Labetalol HCl (Normodyne Iv Push) 10 mg 1X ONCE IVP Last administered on at 14:45; Start 08/16/18 at 14:45; Stop 08/16/18 at 14:46; Status DC Fentanyl Citrate (Fentanyl 2ml Vial) 75 mcg 1X ONCE IV Last administered on at 15:15; Start 08/16/18 at 15:15; Stop 08/16/18 at 15:16; Status DC Famotidine (Pepcid Vial) 20 mg 1X ONCE IVP Last administered on 08/16/18at 15: 15; Start 08/16/18 at 15:15; Stop 08/16/18 at 15:16; Status DC Hydralazine HCl (Apresoline Inj) 20 mg 1X ONCE IVP Last administered on at 16:07; Start 08/16/18 at 16:00; Stop 08/16/18 at 16:02; Status DC Morphine Sulfate (Morphine Sulfate) 4 mg 1X ONCE IV ; Start 08/16/18 at 16:00; Stop 08/16/18 at 16:00; Status DC Diazepam (Valium) 5 mg 1X ONCE PO Last administered on 08/16/18at 16:07; Start 08/16/18 at 16:00; Stop 08/16/18 at 16:02; Status DC Sodium Chloride 1,000 ml @ 100 mls/hr Q10H IV Last administered on 08/16/18at 16:52; Start 08/16/18 at 16:52; Stop 08/17/18 at 02:52; Status DC Ondansetron HCl (Zofran) 4 mg PRN Q6HRS PRN IV NAUSEA/VOMITING 1ST CHOICE Last administered on 08/17/18at 12:38; Start 08/16/18 at 17:00 Prochlorperazine Edisylate (Compazine) 10 mg PRN Q6HRS PRN IV NAUSEA/VOMITING; Start 08/16/18 at 17:00; Stop 08/17/18 at 16:55; Status DC Prochlorperazine (Compazine) 25 mg PRN Q12HR PRN CO NAUSEA/VOMITING; Start at 17:00 Calcium Carbonate/ Glycine (Tums) 500 mg PRN Q3HRS PRN PO UPSET STOMACH; Start 08/16/18 at 17:00 Oxycodone HCl (Roxicodone) 5 mg PRN Q3HRS PRN PO BREAKTHROUGH PAIN Last administered on 08/23/18at 05:58; Start 08/16/18 at 17:00 Acetaminophen/ Hydrocodone Bitart (Lortab 5/325) 1 tab PRN Q4HRS PRN PO MILD PAIN; Start 08/16/18 at 17:00 Acetaminophen (Tylenol) 650 mg PRN Q6HRS PRN PO Headaches, Temp > 101.5F; Start 08/16/18 at 17:00 Magnesium Hydroxide (Milk Of Magnesia) 2,400 mg PRN Q12HR PRN PO CONSTIPATION; Start 08/16/18 at 17:00 Chlordiazepoxide (Librium) 25 mg PRN Q6HRS PRN PO ANXIETY / AGITATION, 2ND CHOIC; Start 08/16/18 at 17:00 Fentanyl Citrate (Fentanyl 2ml Vial) 50 mcg PRN Q2HR PRN IV PAIN Last administered on 08/17/18at 09:09; Start 08/16/18 at 17:00; Stop 08/17/18 at 11:00 ; Status DC Alprazolam (Xanax) 0.25 mg PRN Q8HRS PRN PO ANXIETY / AGITATION, 1ST CHOIC Last administered on 08/21/18at 08:50; Start 08/16/18 at 17:00; Stop 08/21/18 at 14:11; Status DC Zolpidem Tartrate (Ambien) 5 mg PRN QHS PRN PO INSOMNIA Last administered on at 21:23; Start 08/16/18 at 17:00 Multivitamins 10 ml/Folic Acid 1 mg/Sodium Chloride 1,010.2 ml @ 999.099 mls/ hr 1X ONCE IV Last administered on 08/16/18at 17:25; Start 08/16/18 at 17:00; Stop 08/16/18 at 18:00; Status DC Multivitamins (Thera M Plus) 1 tab DAILY PO Last administered on 08/22/18at 08: 25; Start 08/17/18 at 09:00 Thiamine Mononitrate (Vitamin B-1) 100 mg DAILY PO Last administered on at 08:26; Start 08/17/18 at 09:00 Folic Acid (Folic Acid) 1 mg DAILY PO Last administered on 08/22/18at 08:26; Start 08/17/18 at 09:00 Labetalol HCl (Normodyne Iv Push) 20 mg PRN Q2HR PRN IVP HYPERTENSION, SEE COMMENTS Last administered on 08/22/18at 03:26; Start 08/16/18 at 17:00 Amlodipine Besylate (Norvasc) 10 mg DAILY PO Last administered on 08/22/18at 08: 26; Start 08/17/18 at 09:00 Duloxetine HCl (Cymbalta) 90 mg DAILY PO Last administered on 08/22/18 08:25; Start 08/17/18 at 09:00 Lactobacillus Rhamnosus (Culturelle) 1 cap BID PO Last administered on 21:10; Start 08/16/18 at 21:00 Ondansetron HCl (Zofran Odt) 4 mg PRN Q8HRS PRN PO NAUSEA Last administered on 08/22/18 08:26; Start 08/16/18 at 17:00 Oxycodone/ Acetaminophen (Percocet 7.5/ 325) 1 tab PRN QID PRN PO PAIN SEVERE Last administered on 08/23/18 03:46; Start 08/16/18 at 17:00 Albuterol Sulfate (Ventolin Neb Soln) 2.5 mg Q4HRS NEB ; Start 08/16/18 at 20:00 ; Stop 08/16/18 at 20:00; Status DC Benzonatate (Tessalon Perle) 100 mg PRN TID PRN PO COUGH Last administered on 08:25; Start 08/16/18 at 21:00 Pantoprazole Sodium (Protonix) 40 mg DAILYAC PO Last administered on 08/22/18 07:41; Start 08/17/18 at 07:30 Meclizine HCl (Antivert) 25 mg PRN Q8HRS PRN PO DIZZINESS Last administered on 08/22/18 08:26; Start 08/16/18 at 17:30 Prochlorperazine Edisylate (Compazine) 10 mg PRN Q6HRS PRN IV NAUSEA/VOMITING 2ND CHOICE; Start 08/16/18 at 17:00 Thiamine Mononitrate (Vitamin B-1) 100 mg ONCE ONCE PO Last administered on 17:25; Start 08/16/18 at 17:15; Stop 08/16/18 at 17:25; Status DC Ondansetron HCl (Zofran) 4 mg PRN Q8HRS PRN IV NAUSEA/VOMITING; Start 08/16/18 at 17:30; Stop 08/17/18 at 17:29; Status DC Albuterol Sulfate (Ventolin Neb Soln) 2.5 mg PRN Q4HRS PRN NEB WHEEZING; Start 08/16/18 at 18:00 Ceftriaxone Sodium (Rocephin) 1 gm Q24H IVP ; Start 08/17/18 at 11:30; Stop at 11:30; Status DC Potassium Chloride (Klor-Con) 40 meq 1X ONCE PO Last administered on at 13:07; Start 08/17/18 at 11:00; Stop 08/17/18 at 11:01; Status DC Potassium Chloride (Klor-Con) 20 meq DAILYWBKFT PO Last administered on at 08:27; Start 08/18/18 at 08:00 Linezolid/Dextrose 300 ml @ 300 mls/hr Q12HR IV Last administered on at 22:02; Start 08/17/18 at 12:00; Stop 08/19/18 at 11:27; Status DC Hydromorphone HCl (Dilaudid) 1 mg PRN Q4HRS PRN IV PAIN Last administered on at 06:57; Start 08/17/18 at 11:15 Ceftriaxone Sodium (Rocephin) 1 gm Q24H IVP Last administered on 08/19/18at 13: 02; Start 08/18/18 at 11:00; Stop 08/20/18 at 09:02; Status DC Midazolam HCl (Versed) 2 mg PRN 1X PRN IV PRIOR TO PROCEDURE; Start 08/19/18 at 09:00; Stop 08/20/18 at 08:59; Status DC Fentanyl Citrate (Fentanyl 2ml Vial) 25 mcg PRN Q5MIN PRN IV X 2 DOSES FOR PAIN ; Start 08/19/18 at 09:00; Stop 08/20/18 at 08:59; Status DC Fentanyl Citrate (Fentanyl 2ml Vial) 50 mcg PRN Q5MIN PRN IV X 2 DOSES FOR PAIN ; Start 08/19/18 at 09:00; Stop 08/20/18 at 08:59; Status DC Ringer's Solution 1,000 ml @ 125 mls/hr Q8H IV Last administered on 08/19/18at 08:58; Start 08/19/18 at 08:58; Stop 08/19/18 at 20:57; Status DC Lidocaine HCl (Xylocaine-Mpf 1% 2ml Vial) 2 ml 1X PRN PRN ID IV START; Start at 09:00; Stop 08/20/18 at 08:59; Status DC Propofol 20 ml @ As Directed STK-MED ONCE IV ; Start 08/19/18 at 11:34; Stop at 11:35; Status DC Fluconazole (Diflucan) 100 mg DAILY PO Last administered on 08/22/18at 08:26; Start 08/19/18 at 12:00 Metoclopramide HCl (Reglan Oral Solution) 10 mg TIDACHC PO Last administered on 08/22/18at 21:10; Start 08/19/18 at 12:00 Ceftriaxone Sodium (Rocephin) 1 gm 1X ONCE IVP ; Start 08/20/18 at 09:00; Stop 08/20/18 at 09:15; Status DC Cephalexin HCl (Keflex) 500 mg TID PO Last administered on 08/22/18at 21:10; Start 08/21/18 at 09:00 Sodium Chloride 1,000 ml @ 100 mls/hr 1X ONCE IV Last administered on at 11:10; Start 08/20/18 at 09:45; Stop 08/20/18 at 19:44; Status DC Alprazolam (Xanax) 0.25 mg PRN TID PRN PO ANXIETY / AGITATION, 1ST CHOIC Last administered on 08/22/18at 21:23; Start 08/21/18 at 14:15 Active Scripts Active Macrobid 100 Mg Capsule (Nitrofurantoin Monohyd/M-Cryst) 100 Mg Capsule 1 Cap PO BID Medrol (Methylprednisolone) 4 Mg Tab.ds.pk 1 Pkg PO UD Orphenadrine Citrate 100 Mg Tablet.er 100 Mg PO BID Meclizine Hcl 25 Mg Tablet 25 Mg PO PRN TID PRN dizziness Tessalon Perle (Benzonatate) 100 Mg Capsule 1 Cap PO TID PRN Ventolin Hfa Inhaler (Albuterol Sulfate) 18 Gm Hfa.aer.ad 2 Puff INH Q4HRS 30 Days Culturelle (Lactobacillus Rhamnosus Gg) 1 Each Cap.sprink 1 Cap PO BID 14 Days [Ceftriaxone Sodium] 1 GM Vial 1 Gm IVP Q24H 7 Days Zofran Odt (Ondansetron) 4 Mg Tab.rapdis 1 Tab SL Q8HRS PRN Zofran Odt (Ondansetron) 4 Mg Tab.rapdis 1 Tab SL Q8HRS Percocet 7.5-325 Mg Tablet (Oxycodone/Acetaminophen) 1 Each Tablet 1 Tab PO QID Cymbalta (Duloxetine Hcl) 30 Mg Capsule. 90 Mg PO DAILY 30 Days Reported Amlodipine Besylate 10 Mg Tablet 10 Mg PO DAILY Nexium Capsule (Esomeprazole Magnesium) 40 Mg Capsule. 1 Cap PO DAILY Vitals/I & O Vital Sign - Last 24 Hours 08/22/18 08/22/18 08/22/18 08/22/18 08:26 09:52 11:00 14:01 Temp 98.7 98.7 Pulse 75 77 Resp 18 16 18 B/P (MAP) 130/82 129/80 (96) Pulse Ox 94 O2 Delivery Room Air Room Air Room Air 08/22/18 08/22/18 08/22/18 08/22/18 15:00 17:54 19:00 21:23 Temp 98.2 98.6 98.2 98.6 Pulse 80 78 Resp 18 18 18 20 B/P (MAP) 111/80 (90) 120/76 (91) Pulse Ox 98 97 O2 Delivery Room Air Room Air Room Air Room Air 08/22/18 08/22/18 08/22/18 08/23/18 21:36 22:18 23:00 02:44 Temp 98.6 98.6 Pulse 86 Resp 20 18 20 B/P (MAP) 120/85 (97) Pulse Ox 96 O2 Delivery Room Air Room Air Room Air Room Air 08/23/18 08/23/18 08/23/18 08/23/18 02:59 03:45 03:46 05:13 Temp 98.7 98.7 Pulse 83 Resp 18 20 20 20 B/P (MAP) 120/74 (89) Pulse Ox 94 O2 Delivery Room Air Room Air Room Air Room Air 08/23/18 08/23/18 08/23/18 08/23/18 05:58 06:55 06:57 07:00 Temp 98.2 98.2 Pulse 93 Resp 20 20 20 18 B/P (MAP) 110/77 (88) Pulse Ox 96 O2 Delivery Room Air Room Air Room Air Room Air Intake and Output 08/22/18 08/22/1819 15:00 23:00 07:00 Intake Total 610 ml 360 ml Output Total 575 ml 375 ml Balance 610 ml -215 ml -375 ml DEN PACHECO MD Aug 23, 2018 08:00
[2018-08-23] MEDS ORDERED: ALPR0.254 PO (08:14)
[2018-08-23] MEDS ORDERED: THIA100T22 PO (08:14)
[2018-08-23] MEDS ORDERED: ACET325T9 PO (08:14)
[2018-08-23] MEDS ORDERED: METO10SO PO (08:14)
[2018-08-23] MEDS ORDERED: OXYC1TAB19 PO (08:14)
[2018-08-23] MEDS ORDERED: CEPH250C PO (08:14)
[2018-08-23] MEDS ORDERED: FOLI1TAB16 PO (08:14)
[2018-08-23] MEDS ORDERED: Fluconazole PO (08:14)
--- NOTE | 2018-08-23 08:16 | DISCH ---
DISCHARGE DISCHARGE INFORMATION: DISCHARGE DATE: Aug 23, 2018 FINAL DIAGNOSIS Problems Medical Problems: (1) Chronic back pain Status: Acute (2) Dizziness Status: Acute (3) Hypertensive urgency Status: Acute CONDITION ON DISCHARGE: Stable CODE STATUS: Code Status: Full FDC: SNF STAY <30 DAYS: Yes POST DISCHARGE ORDERS: ACTIVITY ORDERS: Activity as tolerated WEIGHT BEARING STATUS: As tolerated BATHING ORDERS: Shower-keep dressing dry, No Tub Bath until see WOUND/INCISION CARE: Ice to area for comfort, Routine catheter care CHECKS AFTER DISCHARGE: CHECKS AFTER DISCHARGE: Check blood press - daily, Check blood sugar, ac/hs FOLLOW-UP: PHYSICIAN FOLLOW-UP: Urology - Dr. Garza - 2 weeks LAB ORDERS FOR FOLLOW-UP: CMP 08/26/18 TREATMENT/EQUIPMENT ORDERS: ADAPTIVE EQUIPMENT NEEDED: None Physical Therapy For: Evalulation/Treatment Occupational Therapy For: Evaluation/Treatment Speech Language Pathology For: Evaluation/Treatment DISCHARGE MEDICATIONS: Home Meds Active Scripts Thiamine Mononitrate (VITAMIN B-1) 100 Mg Tablet, 100 MG PO DAILY for ETOH abuse for 30 Days, #30 TAB Prov:DEN PACHECO MD 08/23/18 Folic Acid (FOLIC ACID) 1 Mg Tablet, 1 MG PO DAILY for ETOh abuse for 30 Days, # 30 TAB Prov:DEN PACHECO MD 08/23/18 Metoclopramide Hcl (METOCLOPRAMIDE HCL) 10 Mg/10 Ml Solution, 10 MG PO TIDACHC for Gastroparesis for 30 Days, #1 MISC Prov:DEN PACHECO MD 08/23/18 Alprazolam (ALPRAZOLAM) 0.25 Mg Tablet, 0.25 MG PO PRN TID PRN for ANXIETY / AGITATION, 1ST CHOIC for 30 Days, #90 TAB Prov:DEN PACHECO MD 08/23/18 Acetaminophen (TYLENOL) 325 Mg Tablet, 650 MG PO PRN Q6HRS PRN for Headaches, Temp > 101.5F for 30 Days, #60 TAB Prov:DEN PACHECO MD 08/23/18 [Fluconazole] 100 MG TABLET No Conflict Check, 100 MG PO DAILY for Rebeca Esophagitis for 10 Days, #10 TAB Prov:DEN PACHECO MD 08/23/18 Cephalexin (CEPHALEXIN) 250 Mg Capsule, 500 MG PO TID for UTI for 5 Days, #30 CAP Prov:DEN PACHECO MD 08/23/18 Oxycodone/Apap 7.5-325 (PERCOCET 7.5-325 MG TABLET ) 1 Each Tablet, 1 TAB PO PRN Q6HRS PRN for SEVERE PAIN for 6 Days, #24 TAB Prov:DEN PACHECO MD 08/23/18 Meclizine Hcl (MECLIZINE HCL) 25 Mg Tablet, 25 MG PO PRN TID PRN for DIZZINESS, #30 dizziness Prov:PATTI LAWSON MD 06/12/18 Benzonatate (TESSALON PERLE) 100 Mg Capsule, 1 CAP PO TID PRN for COUGH, #21 CAP Prov:NAT LANDERS MD 05/27/18 Albuterol Sulfate (VENTOLIN HFA INHALER) 18 Gm Hfa.aer.ad, 2 PUFF INH Q4HRS for FOR ASTHMA for 30 Days, #1 INHALER 0 Refills Prov:NAT LANDERS MD 05/27/18 Lactobacillus Rhamnosus Gg (CULTURELLE) 1 Each Cap.sprink, 1 CAP PO BID for gut indra for 14 Days, #28 CAP Prov:WEI COLLINS MD 05/01/18 Ondansetron (ZOFRAN ODT) 4 Mg Tab.rapdis, 1 TAB SL Q8HRS PRN for NAUSEA, #15 TAB Prov:MOON IRELAND DO 04/06/18 Duloxetine Hcl (CYMBALTA) 30 Mg Capsule.dr, 90 MG PO DAILY for 30 Days, #90 CAP Prov:KERRIE GONZALEZ MD 11/20/17 Reported Medications Amlodipine Besylate (AMLODIPINE BESYLATE) 10 Mg Tablet, 10 MG PO DAILY 02/18/18 Esomeprazole Magnesium (NEXIUM CAPSULE) 40 Mg Capsule.dr, 1 CAP PO DAILY, #30 CAP 5 Refills 10/04/17 Discontinued Scripts Nitrofurantoin Monohyd/M-Cryst (MACROBID 100 MG CAPSULE) 100 Mg Capsule, 1 CAP PO BID, #10 CAP Prov:REBECCA ALEMAN [employer] 07/26/18 Methylprednisolone (MEDROL) 4 Mg Tab.ds.pk, 1 PKG PO UD, #1 PKG Prov:REBECCA ALEMAN [employer] 07/26/18 Orphenadrine Citrate (ORPHENADRINE CITRATE) 100 Mg Tablet.er, 100 MG PO BID, # 20 TAB.SR Prov:REBECCA ALEMAN [employer] 07/26/18 [cefTRIAXone IV Push] 1 GM VIAL No Conflict Check, 1 GM IVP Q24H for 7 Days, #7 EACH Prov:WEI COLLINS MD 05/01/18 Ondansetron (ZOFRAN ODT) 4 Mg Tab.rapdis, 1 TAB SL Q8HRS, #10 TAB Prov:JONI SLAUGHTER [employer] 02/10/18 DEN PACHECO MD Aug 23, 2018 08:16
[2018-08-23] MEDS: CEPHALEXIN 250 MG CAPSULE. PO SCH (08:45)
[2018-08-23] MEDS: ALPRAZolam 0.25 MG TABLET PO PRN (08:45)
[2018-08-23] MEDS: FOLIC ACID 1 MG TABLET. PO SCH (08:46)
[2018-08-23] MEDS: DULoxetine HCL 30 MG CAPSULE.DR PO SCH (08:46)
[2018-08-23] MEDS: LACTOBACILLUS RHAMNOSUS GG 1 CAPSULE. PO SCH (08:46)
[2018-08-23] MEDS: THIAMINE 100 MG TABLET. PO SCH (08:46)
[2018-08-23] MEDS: POTASSIUM CHLORIDE 20 MEQ TABLET.ER. PO SCH (08:46)
[2018-08-23] MEDS: FLUCONAZOLE 100 MG TABLET. PO SCH (08:46)
[2018-08-23] MEDS: METOCLOPRAMIDE ORAL SOLN 10 MG/10 ML SOLUTION. PO SCH (08:47)
[2018-08-23] MEDS: PANTOPRAZOLE 40 MG TABLET.DR. PO SCH (08:47)
[2018-08-23] MEDS: amLODIPine BESYLATE 10 MG TABLET PO SCH (08:47)
[2018-08-23] MEDS: MULTIVITAMIN with MINERAL TABLET. PO SCH (08:47)
[2018-08-23 11:00] VITALS: BP 108/70
--- NOTE | 2018-08-23 11:27 | NUR ---
Discharge Note: SANTI HERRON Discharge instructions and discharge home medications reviewed with Other facility and a copy given. All questions have been answered and understanding verbalized. The following instructions and handouts were given: N/V Discontinued lines and drains: Peripheral IV intact. Patient discharged to Rehab Facility with Self via Wheelchair
--- NOTE | 2018-09-07 14:00 | PDOC3 ---
Discharge Summary Visit Information Date of Admission: Aug 16, 2018 Date of Discharge: Aug 23, 2018 Admitting Diagnosis: Dysphagia Final Diagnosis Problems Medical Problems: (1) Chronic back pain Status: Acute (2) Dizziness Status: Acute (3) Hypertensive urgency Status: Acute Brief Hospital Course Allergies Allergies Coded Allergies Type Severity Reaction Last Updated Verified levofloxacin Allergy Intermediate 08/19/18 Yes I S O L A T I O N *CONTACT* Allergy Unknown 08/19/18 Yes diphenhydramine HCl Adverse Reaction Intermediate "Jittery on the inside" 08/19 Yes morphine Adverse Reaction Intermediate BLACKOUT 08/19/18 Yes Brief Hospital Course 62-year-old female known to the hospital for chronic vomiting, chronic UTI from intermittently self caths, narcotic dependence. Poor appetite, very weak, has been to [place] a few times for rehab. She was seen by GI for her dysphagia, was NPO for almost 3 days based on vomiting all clear liquid diet her first 3 days of admission. EGD on 08/19 showed stricture and candidal esophagitis. Started on nystatin. 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 08/21: She ate 3 bites of breakfast today, no vomiting. Does not have much appetite. Feels a little better. BP is starting to climb up. She is feeling somewhat depressed today. Still very weak, feels like eating more. No CP, some SOB. Ready to discharge to SNF to continue recovery from wei esophagitis and UTI. Greater than 30 minutes spent on discharge including coordination of follow up and SNF. Assessment: intractable vomiting hypokalemia, volume depleted CKD- HTN emergency POA - SIRS possible sepsis on admission- History of VRE UTI was sensitive to Zyvox-in past Alcohol dependence Depression NOS Narcotic dependence hx Low lumbar spine postoperative spinal fusion noted with degenerative space narrowing at multiple levels. HX neurogenic bladder - self caths GERD Plan: Hydrate, nausea meds, iv fluids Urine already growing e coli Zyvox + Rocephin - ID consult given complicated UTI hx Inserted kerns ADA diet Nystatin for esophageal candidiasis control blood pressure Alcohol cessation advised CIWA protocol Librium prn PPI etc. and other supportive meds Discharge Information Condition at Discharge: Improved Follow Up: Weeks Disposition/Orders: D/C to Another Facility ([facility]) Scheduled Albuterol Sulfate (Ventolin Hfa Inhaler) 18 Gm Hfa.aer.ad, 2 PUFF INH Q4HRS for FOR ASTHMA for 30 Days, #1 Ref 0 Prescribed by: NAT LANDERS MD on 05/27/18924 Last Action: Converted on 08/16/181656 by LIDIA URIAS Amlodipine Besylate (Amlodipine Besylate) 10 Mg Tablet, 10 MG PO DAILY, ( Reported) Entered as Reported by: TYLOR BAH on 02/18/18 0059 Last Action: Continued on 08/16/181656 by LIDIA URIAS Cephalexin (Cephalexin) 250 Mg Capsule, 500 MG PO TID for UTI for 5 Days, #30 Prescribed by: DEN PACHECO MD on 08/23/18 0814 Duloxetine Hcl (Cymbalta) 30 Mg Capsule.dr, 90 MG PO DAILY for 30 Days, #90 Prescribed by: KERRIE GONZALEZ MD on 11/20/17 164 Last Action: Continued on 08/16/181656 by LIDIA URIAS Esomeprazole Magnesium (Nexium Capsule) 40 Mg Capsule.dr, 1 CAP PO DAILY, #30 Ref 5 (Reported) Entered as Reported by: Jesus Mcmullen on 10/04/172003 Last Action: Converted on 08/16/181656 by LIDIA URIAS Folic Acid (Folic Acid) 1 Mg Tablet, 1 MG PO DAILY for ETOh abuse for 30 Days, # 30 Prescribed by: DEN PACHECO MD on 08/23/18 0814 Lactobacillus Rhamnosus Gg (Culturelle) 1 Each Cap.sprink, 1 CAP PO BID for gut indra for 14 Days, #28 Prescribed by: WEI COLLINS MD on 05/01/18 1607 Last Action: Continued on 08/16/181656 by LIDIA URIAS Metoclopramide Hcl (Metoclopramide Hcl) 10 Mg/10 Ml Solution, 10 MG PO TIDACHC for Gastroparesis for 30 Days, #1 Prescribed by: DEN PACHECO MD on 08/23/18 0814 Thiamine Mononitrate (Vitamin B-1) 100 Mg Tablet, 100 MG PO DAILY for ETOH abuse for 30 Days, #30 Prescribed by: DEN PACHECO MD on 08/23/18 08 [Fluconazole] 100 MG TABLET, 100 MG PO DAILY for Wei Esophagitis for 10 Days , #10 Prescribed by: DEN PACHECO MD on 08/23/18813 Scheduled PRN Acetaminophen (Tylenol) 325 Mg Tablet, 650 MG PO PRN Q6HRS PRN for Headaches, Temp > 101.5F for 30 Days, #60 Prescribed by: DEN PACHECO MD on 08/23/18813 Alprazolam (Alprazolam) 0.25 Mg Tablet, 0.25 MG PO PRN TID PRN for ANXIETY / AGITATION, [facility] for 30 Days, #90 Prescribed by: DEN PACHECO MD on 08/23/18813 Benzonatate (Tessalon Perle) 100 Mg Capsule, 1 CAP PO TID PRN for COUGH, #21 Prescribed by: NAT LANDERS MD on 05/27/18 0925 Last Action: Converted on 08/16/181656 by LIDIA URIAS Meclizine Hcl (Meclizine Hcl) 25 Mg Tablet, 25 MG PO PRN TID PRN for DIZZINESS, #30 dizziness Prescribed by: PATTI LAWSON MD on 06/12/18 133 Last Action: Converted on 08/16/181656 by LIDIA URIAS Ondansetron (Zofran Odt) 4 Mg Tab.rapdis, 1 TAB SL Q8HRS PRN for NAUSEA, #15 Prescribed by: MOON IRELAND D.O. on 04/06/18 887 Last Action: Continued on 08/16/181656 by LIDIA URIAS Oxycodone/Apap 7.5-325 (Percocet 7.5-325 Mg Tablet ) 1 Each Tablet, 1 TAB PO PRN Q6HRS PRN for SEVERE PAIN for 6 Days, #24 Prescribed by: DEN PACHECO MD on 08/23/18813 DEN PACHECO MD Sep 07, 2018 14:00
== END 2018-08-23 11:32 | DRG 872 ==
LOC: ER 13:16 → 5 NORTH 17:22
PROVIDERS: ADMIT Internal Medicine; ATTEND Internal Medicine
PROC: 0D758ZZ Dilation of Esophagus, Via Natural or Artificial Opening Endoscopic (ICD-10-PCS; 2018-08-19)
PROC: 0DB38ZX Excision of Lower Esophagus, Via Natural or Artificial Opening Endoscopic, Diagnostic (ICD-10-PCS; principal; 2018-08-19 12:00)
PROC: 0DB18ZX Excision of Upper Esophagus, Via Natural or Artificial Opening Endoscopic, Diagnostic (ICD-10-PCS; 2018-08-19 12:00)
DX: A41.9 Sepsis, unspecified organism (principal); B37.81 Candidal esophagitis; I16.1 Hypertensive emergency; N39.0 Urinary tract infection, site not specified; F11.20 Opioid dependence, uncomplicated; K22.2 Esophageal obstruction; K31.84 Gastroparesis; F32.9 Major depressive disorder, single episode, unspecified; D63.8 Anemia in other chronic diseases classified elsewhere; E87.6 Hypokalemia; E86.9 Volume depletion, unspecified; N18.9 Chronic kidney disease, unspecified; I12.9 Hypertensive chronic kidney disease with stage 1 through stage 4 chronic kidney disease, or unspecified chronic kidney disease; B96.20 Unspecified Escherichia coli [E. coli] as the cause of diseases classified elsewhere; K21.0 Gastro-esophageal reflux disease with esophagitis; M79.7 Fibromyalgia; G89.29 Other chronic pain; M54.9 Dorsalgia, unspecified; K21.9 Gastro-esophageal reflux disease without esophagitis; D64.9 Anemia, unspecified; F10.20 Alcohol dependence, uncomplicated; E78.5 Hyperlipidemia, unspecified; F12.90 Cannabis use, unspecified, uncomplicated; F41.9 Anxiety disorder, unspecified; Z96.659 Presence of unspecified artificial knee joint; Z82.49 Family history of ischemic heart disease and other diseases of the circulatory system; Z98.51 Tubal ligation status; Z98.1 Arthrodesis status; Z88.6 Allergy status to analgesic agent; Z88.8 Allergy status to other drugs, medicaments and biological substances; Z91.19 Patient's noncompliance with other medical treatment and regimen; Z87.891 Personal history of nicotine dependence; Z87.440 Personal history of urinary (tract) infections
CPT/HCPCS: 36415; 43233; 43239; 70450; 74176; 80048; 80053; 81001; 82553; 83735; 84100; 84484; 85025; 87086; 87186; 88305; 88312; 93005; 96361; 96365; 96375; G0480; J0360; J0696; J1170; J2020; J2405; J2704; J3010; J3490; J7030; J7120; J8597; Q0162; 97116; 97530; 97535; 99285-25

== ENCOUNTER 2018-09-08 23:31 | Inpatient (IN) | payer MEDICARE, OTHER ==
[~2018-09-08] VITALS: Ht 162.6 cm; Wt 72.1 kg
[~2018-09-08 23:31] MED LIST changes: +ACET325T9 PO; +CEPH250C PO; +FOLI1TAB16 PO; +METO10SO PO; +THIA100T22 PO
[2018-09-09 00:29] LABS: BILIRUBIN,URINE NEGATIVE (NEG); CLARITY,URINE CLOUDY; COLOR,URINE YELLOW; NITRITE,URINE POSITIVE (NEG); PROTEIN,URINE NEGATIVE (NEG-TRACE); UROBILINOGEN,URINE 0.2 mg/dL (0.2 mg/dL)
[2018-09-09 00:39] LABS: BACTERIA,URINE MANY /HPF (0-FEW); RBC,URINE TNTC /HPF (0-2); SQUAMOUS EPITHELIAL CELL,UR MANY /LPF; WBC,URINE TNTC /HPF (0-4)
[2018-09-09] MEDS ORDERED: cefTRIAXone IM 1 GM VIAL IM ONE (00:45)
--- NOTE | 2018-09-09 01:11 | PHYS DOC ---
Past Medical History Past Medical History: Fibromyalgia, Hypertension, Kidney Infection, Renal Disease, Other Additional Past Medical Histor: VRE,C-DIFF,FALLS,CHRONIC BACK/KNEE PAIN Past Surgical History: Knee Replacement, Other Additional Past Surgical Histo: BACK AND FEET SURGERY Alcohol Use: Heavy Drug Use: Marijuana Adult General Chief Complaint Chief Complaint: MULTIPLE COMPLAINTS HPI HPI Patient is a 63 year old female presents with family for the evaluation of altered mental status. History obtained from patient as well as family members. Family members state over the last 2 days patient has been hallucinating. Family states they have been trying to get the patient to come to the emergency department for evaluation but she has declined. On exam patient is alert--- she knows her name and then family that accompanies her. She states she's had some right upper quadrant abdominal discomfort associated with nausea but has not vomited. She states she has dysuria. Review of Systems Review of Systems Constitutional: Denies fever or chills [] Eyes: Denies change in visual acuity, redness, or eye pain [] HENT: Denies nasal congestion or sore throat [] Respiratory: Denies cough or shortness of breath [] Cardiovascular: No additional information not addressed in HPI [] GI: positive abdominal pain, nausea, vomiting, NO bloody stools or diarrhea [] :positive dysuria no hematuria [] Musculoskeletal: Denies back pain or joint pain [] Integument: Denies rash or skin lesions [] Neurologic: Denies headache, focal weakness or sensory changes [] Endocrine: Denies polyuria or polydipsia [] All other systems were reviewed and found to be within normal limits, except as documented in this note. Current Medications Current Medications Current Medications Medications (Trade) Dose Ordered Sig/Taz Start Time Stop Time Status Last Admin Dose Admin Ceftriaxone Sodium (Rocephin Im) 1 gm 1X ONCE 09/09/18 00:45 09/09/18 00:46 DC 09/09/18 02:05 1 GM Allergies Allergies Allergies Coded Allergies Type Severity Reaction Last Updated Verified levofloxacin Allergy Intermediate 08/19/18 Yes I S O L A T I O N *CONTACT* Allergy Unknown 08/19/18 Yes diphenhydramine HCl Adverse Reaction Intermediate "Jittery on the inside" 08/19 Yes morphine Adverse Reaction Intermediate BLACKOUT 08/19/18 Yes Physical Exam Physical Exam Constitutional: Well developed, well nourished, no acute distress, non-toxic appearance. [] HENT: Normocephalic, atraumatic, bilateral external ears normal, oropharynx moist, no oral exudates, nose normal. [] Eyes: PERRLA, EOMI, conjunctiva normal, no discharge. [] Neck: Normal range of motion, no tenderness, supple, no stridor. [] Cardiovascular:Heart rate regular rhythm, no murmur [] Lungs & Thorax: Bilateral breath sounds clear to auscultation [] Abdomen: Bowel sounds normal, soft, tenderness to palpation RUQ, no masses, no pulsatile masses. [] Skin: Warm, dry, no erythema, no rash. [] Back: No tenderness, no CVA tenderness. [] Extremities: No tenderness, no cyanosis, no clubbing, ROM intact, no edema. [] Neurologic: Alert and oriented X 3, normal motor function, normal sensory function, no focal deficits noted. [] Psychologic: Affect normal, judgement normal, mood normal. [] Current Patient Data Vital Signs Vital Signs Date Time Temp Pulse Resp B/P (MAP) Pulse Ox O2 Delivery O2 Flow Rate FiO2 09/09/18 00:30 96 117/58 (77) 94 09/08/18 23:40 98.5 18 Room Air 98.5 Lab Values Laboratory Tests Test 09/09/18 00:14 09/09/18 00:20 POC Urine HCG, Qualitative Hcg negative (Negative) Urine Collection Type Unknown Urine Color Yellow Urine Clarity Cloudy Urine pH 6.0 Urine Specific [place] 1.025 Urine Protein Negative mg/dL (NEG-TRACE) Urine Glucose (UA) >=1000 mg/dL (NEG) Urine Ketones (Stick) Negative mg/dL (NEG) Urine Blood Large (NEG) Urine Nitrite Positive (NEG) Urine Bilirubin Negative (NEG) Urine Urobilinogen Dipstick 0.2 mg/dL (0.2 mg/dL) Urine Leukocyte Esterase Moderate (NEG) Urine RBC Tntc /HPF (0-2) Urine WBC Tntc /HPF (0-4) Urine Squamous Epithelial Cells Many /LPF Urine Bacteria Many /HPF (0-FEW) EKG EKG [] Radiology/Procedures Radiology/Procedures [] Course & Med Decision Making Course & Med Decision Making Pertinent Labs and Imaging studies reviewed. (See chart for details) []Patient evaluated for chief complaint. Workup consisted of laboratory analysis and radiologic imaging. Results reviewed and discussed with family. Patient's urine consistent with urinary tract infection. Patient's right knee noted to be elevated at 4.9 baseline in the twos. Patient was treated with Rocephin. ET abdomen and pelvis ordered for right upper quadrant pain--- etiology impression abnormalities of the gallbladder. An ultrasound was ordered and pending at time of admission. Dragon Disclaimer Dragon Disclaimer This electronic medical record was generated, in whole or in part, using a voice recognition dictation system. Departure Departure Impression: Primary Impression: Urinary tract infection Additional Impressions: Acute on chronic kidney failure Abdominal pain Disposition: ADMITTED INPATIENT Admitting Physician: Other (Freida) Condition: STABLE Referrals: AIDE CALLE JR, MD (PCP) Problem Qualifiers ALKA IBARRA DO Sep 09, 2018 01:11
[2018-09-09 01:40] LABS: BASO # 0.1 x10^3/uL (0.0-0.2); BASO % 1 % (0-3); EOS % 0 % (0-3); HEMOGLOBIN 8.1 g/dL (12.0-15.5); LYMPH # 1.3 x10^3/uL (1.0-4.8); LYMPH % 10 % (24-48); MEAN CORPUSCULAR HEMOGLOBIN 26 pg (25-35); MEAN CORPUSCULAR HGB CONC 32 g/dL (31-37); MEAN CORPUSCULAR VOLUME 80 fL (79-100); MONO # 1.4 x10^3/uL (0.0-1.1); MONO % 11 % (0-9); NEUT # 10.5 x10^3uL (1.8-7.7); NEUT % 79 % (31-73); PLATELET COUNT 417 x10^3/uL (140-400); RED BLOOD COUNT 3.12 x10^6/uL (3.50-5.40); RED CELL DISTRIBUTION WIDTH 19.1 % (11.5-14.5); WHITE BLOOD COUNT 13.4 x10^3/uL (4.0-11.0)
[2018-09-09] MEDS ORDERED: IV NORMAL SALINE 1000ML BAG 1,000 ML IV ONE ×2 (01:45→03:00)
[2018-09-09] MEDS ORDERED: ONDANSETRON PF 4 MG/2 ML VIAL. IV ONE (01:45)
[2018-09-09 01:50] LABS: CALCIUM 9.3 mg/dL (8.5-10.1); CREATININE 4.9 mg/dL (0.6-1.0); POTASSIUM 3.9 mmol/L (3.5-5.1)
[2018-09-09 01:55] LABS: ALBUMIN 3.1 g/dL (3.4-5.0); ALBUMIN/GLOBULIN RATIO 0.6 (1.0-1.7); TOTAL BILIRUBIN 0.5 mg/dL (0.2-1.0)
[2018-09-09] MEDS ORDERED: ONDANSETRON PF 4 MG/2 ML VIAL. IV PRN ×2 (03:00→08:45)
--- NOTE | 2018-09-09 03:34 | RAD ---
PQRS Compliance statement: One or more of the following individualized dose reduction techniques were utilized for this examination: 1. Automated exposure control. 2. Adjustment of the mA and/or kV according to patient size. 3. Use of iterative reconstruction technique. Indication:PAIN TECHNIQUE: CT abdomen and pelvis without IV contrast with multiplanar reformats. COMPARISON: 08/16/2018 FINDINGS: Limited evaluation of solid abdominal and pelvic organs due to lack of IV contrast. Heart is normal in size. Small right and trace left pleural effusion. Consolidation is seen in the bilateral lower lobes, right more than left. Noncontrast appearance of the liver, spleen, pancreas, adrenals within normal limits. Gallbladder is significantly distended without radiopaque stones. Bilateral atrophic kidneys, right more than left. No nephrolithiasis or hydronephrosis. No enlarged retroperitoneal or pelvic adenopathy. Shotty pelvic lymph nodes most likely reactive. Trace amount of free pelvic fluid. No ascites. No bowel obstruction. Normal appendix. Anteverted uterus. Urinary bladder is distended without radiopaque stones. No pneumoperitoneum. Small sliding hiatal hernia. No suspicious bony lesion. Status post posterior fusion at L3-L5 vertebral bodies. IMPRESSION: Limited evaluation of solid abdominal and pelvic organs due to lack of IV contrast. 1. Small right and trace left pleural effusion with consolidations in the lung bases which may be secondary to passive atelectasis or pneumonia. 2. Diffusely distended gallbladder without radiopaque stones. If concern for acute cholecystitis is high, please consider further evaluation with ultrasound of the gallbladder. Electronically signed by: Davi Baez DO (09/09/2018 3:31 AM) [facility]
[2018-09-09 04:30] VITALS: BP 125/61
[2018-09-09] MEDS ORDERED: METO10TA81 PO (04:54)
[2018-09-09] MEDS ORDERED: OXYC10TA PO (04:54)
[2018-09-09] MEDS ORDERED: traMADol 50 MG TABLET PO PRN (05:30)
[2018-09-09] MEDS: oxyCODONE IR 5 MG TABLET PO PRN ×3 (06:37→16:09)
--- NOTE | 2018-09-09 06:43 | RAD ---
Indication:abnormal ct. abnormal gallbladder TECHNIQUE: Grayscale, color Doppler and spectral waveform is of the abdomen obtained. COMPARISON:CT from the same day FINDINGS: Pancreas not visualized during bowel gas. IVC within normal limits and is patent. Main portal vein is patent. Liver measures 14 cm in longest dimension and is normal in size and echogenicity. Gallbladder is distended with gallbladder wall thickening measuring 8 mm. No radiopaque gallstones. CBD is dilated measuring 7 mm. Right kidney is atrophic and diffusely echogenic measuring 6.9 cm in length. Positive sonographic Brown's sign. IMPRESSION: 1. Distended gallbladder with wall thickening and positive sonographic Brown's sign but without gallstones. Findings may be secondary to acalculus cholecystitis. Electronically signed by: Davi Baez DO (09/09/2018 6:40 AM) [facility]
[2018-09-09 07:00] VITALS: BP 124/65
[2018-09-09] MEDS ORDERED: ACETAMINOPHEN 325 MG TABLET. PO PRN (08:45)
[2018-09-09] MEDS ORDERED: ZOLPIDEM 5 MG TABLET. PO PRN (08:45)
[2018-09-09] MEDS ORDERED: fentaNYL PF VIAL 100 MCG/2 ML VIAL IV PRN (08:45)
[2018-09-09] MEDS ORDERED: ALPRAZolam 0.25 MG TABLET PO PRN (08:45)
[2018-09-09] MEDS: DULoxetine HCL 30 MG CAPSULE.DR PO SCH (09:27)
[2018-09-09] MEDS: amLODIPine BESYLATE 10 MG TABLET PO SCH (09:27)
--- NOTE | 2018-09-09 09:33 | NUR ---
IP: Pt has a long hx of MDRO's with C.diff since 2013 ans most recent on 10/04/17, mrsa screen + 09/04/17 and hx of vre in urine which is resolved. Pt to be in contact plus precautions.
[2018-09-09] MEDS ORDERED: PANTOPRAZOLE 40 MG TABLET.DR. PO SCH (10:00)
[2018-09-09 11:00] VITALS: BP 126/67
--- NOTE | 2018-09-09 11:09 | PDOC ---
Infectious Disease Note Vital Sign Vital Signs Vital Signs Date Time Temp Pulse Resp B/P (MAP) Pulse Ox O2 Delivery O2 Flow Rate FiO2 09/09/18 09:28 Room Air 09/09/18 09:27 99 124/65 09/09/18 07:00 97.5 18 85 97.5 Labs Lab Laboratory Tests Test 09/09/18 00:14 09/09/18 00:20 09/09/18 01:30 Bedside Urine HCG, Qualitative Hcg negative (Negative) Urine Collection Type Unknown Urine Color Yellow Urine Clarity Cloudy Urine pH 6.0 Urine Specific [place] 1.025 Urine Protein Negative mg/dL (NEG-TRACE) Urine Glucose (UA) >=1000 mg/dL (NEG) Urine Ketones (Stick) Negative mg/dL (NEG) Urine Blood Large (NEG) Urine Nitrite Positive (NEG) Urine Bilirubin Negative (NEG) Urine Urobilinogen Dipstick 0.2 mg/dL (0.2 mg/dL) Urine Leukocyte Esterase Moderate (NEG) Urine RBC Tntc /HPF (0-2) Urine WBC Tntc /HPF (0-4) Urine Squamous Epithelial Cells Many /LPF Urine Bacteria Many /HPF (0-FEW) White Blood Count 13.4 x10^3/uL (4.0-11.0) Red Blood Count 3.12 x10^6/uL (3.50-5.40) Hemoglobin 8.1 g/dL (12.0-15.5) Hematocrit 25.0 % (36.0-47.0) Mean Corpuscular Volume 80 fL (79-100) Mean Corpuscular Hemoglobin 26 pg (25-35) Mean Corpuscular Hemoglobin Concent 32 g/dL (31-37) Red Cell Distribution Width 19.1 % (11.5-14.5) Platelet Count 417 x10^3/uL (140-400) Neutrophils (%) (Auto) 79 % (31-73) Lymphocytes (%) (Auto) 10 % (24-48) Monocytes (%) (Auto) 11 % (0-9) Eosinophils (%) (Auto) 0 % (0-3) Basophils (%) (Auto) 1 % (0-3) Neutrophils # (Auto) 10.5 x10^3uL (1.8-7.7) Lymphocytes # (Auto) 1.3 x10^3/uL (1.0-4.8) Monocytes # (Auto) 1.4 x10^3/uL (0.0-1.1) Eosinophils # (Auto) 0.0 x10^3/uL (0.0-0.7) Basophils # (Auto) 0.1 x10^3/uL (0.0-0.2) Sodium Level 133 mmol/L (136-145) Potassium Level 3.9 mmol/L (3.5-5.1) Chloride Level 93 mmol/L (98-107) Carbon Dioxide Level 21 mmol/L (21-32) Anion Gap 19 (6-14) Blood Urea Nitrogen 50 mg/dL (7-20) Creatinine 4.9 mg/dL (0.6-1.0) Estimated GFR (Cockcroft-Gault) 9.0 BUN/Creatinine Ratio 10 (6-20) Glucose Level 148 mg/dL (70-99) Calcium Level 9.3 mg/dL (8.5-10.1) Total Bilirubin 0.5 mg/dL (0.2-1.0) Aspartate Amino Transf (AST/SGOT) 27 U/L (15-37) Alanine Aminotransferase (ALT/SGPT) 18 U/L (14-59) Alkaline Phosphatase 88 U/L (46-116) Total Protein 8.0 g/dL (6.4-8.2) Albumin 3.1 g/dL (3.4-5.0) Albumin/Globulin Ratio 0.6 (1.0-1.7) Lipase 146 U/L (73-393) Objective Assessment Leukocytosis Abd pain Distended GB GILES Encephalopathy - hallucinations UTI - POA 09/09 Plan Plan of Care Cont zyvox Add Zosyn Gen surg eval F/u labs and cults thank you # [phone] GILBERTO SEQUEIRA MD Sep 09, 2018 11:09
--- NOTE | 2018-09-09 11:17 | PDOC2 ---
CONSULT Date of Consult Date of Consult DATE: 09/09/18 TIME: 11:11 Reason for Consult Reason for Consult: GILES Referring Physician Referring Physician: LASHAY Identification/Chief Complaint Chief Complaint CONFUSION Source Source: Chart review History of Present Illness Reason for Visit: THIS IS A 63 YR OLD WITH GILES. SHE IS BROUGHT IN BY HER FAMILY DUE TO CONFUSION. SHE HAS A HX OF CKD STAGE 4 WITH CR OF ABOUT 2.5 ON AVERAGE. CR OF 4.9 NOW. SHE HAS A HX OF NEUROGENIC BLADDER FOR WHICH SHE IS TO PERFORM SELF CATH 4 TIMES A DAY. SHE HAS IN THE PAST BEEN NON COMPLIANT WITH THIS. SHE HAS SEEN UROLOGY IN THE PAST FOR THIS. UNFORTUNATELY SHE HAS HAD RECURRENT PROBLEMS WITH BLADDER INFECTIONS AND UA IS C/W UTI AGAIN. SUSPECT SHE HAS NOT BEEN EATING MUCH Past Medical History Cardiovascular: HTN, Hyperlipidemia Pulmonary: No pertinent hx GI: GERD, Other Heme/Onc: Anemia NOS Hepatobiliary: Other Psych: Anxiety, Depression Rheumatologic: Fibromyalgia Infectious disease: No pertinent hx, Other Renal/: Chronic renal insuff, Other Past Surgical History Past Surgical History: Total knee replacement, Tubal Ligation, Other Family History Family History: Heart Disease, Hypertension Social History ALCOHOL: heavy Drugs: Marijuana Lives: Alone Current Medications Current Medications Current Medications Ceftriaxone Sodium (Rocephin Im) 1 gm 1X ONCE IM Last administered on at 02:05; Start 09/09/18 at 00:45; Stop 09/09/18 at 00:46; Status DC Sodium Chloride 1,000 ml @ 1,000 mls/hr 1X ONCE IV Last administered on at 02:04; Start 09/09/18 at 01:45; Stop 09/09/18 at 02:44; Status DC Ondansetron HCl (Zofran) 4 mg 1X ONCE IV Last administered on 09/09/18at 01:45 ; Start 09/09/18 at 01:45; Stop 09/09/18 at 01:46; Status DC Sodium Chloride 1,000 ml @ 1,000 mls/hr 1X ONCE IV Last administered on at 03:00; Start 09/09/18 at 03:00; Stop 09/09/18 at 03:59; Status DC Ondansetron HCl (Zofran) 4 mg PRN Q8HRS PRN IV NAUSEA/VOMITING Last administered on 09/09/18 07:55; Start 09/09/18 at 03:00; Stop 09/09/18 at 08:37 ; Status DC Tramadol HCl (Ultram) 50 mg PRN Q6HRS PRN PO PAIN Last administered on 05:42; Start 09/09/18 at 05:30 Oxycodone HCl (Roxicodone) 5 mg PRN Q4HRS PRN PO PAIN Last administered on 09/09 11:08; Start 09/09/18 at 05:30 Ondansetron HCl (Zofran) 4 mg PRN Q6HRS PRN IV NAUSEA/VOMITING; Start 09/09/18 at 08:45 Linezolid/Dextrose 300 ml @ 300 mls/hr Q12HR IV Last administered on 10:53; Start 09/09/18 at 10:00 Acetaminophen (Tylenol) 650 mg PRN Q6HRS PRN PO Headaches, Temp > 101.5F; Start 09/09/18 at 08:45 Alprazolam (Xanax) 0.25 mg PRN TID PRN PO ANXIETY / AGITATION, 1ST CHOIC Last administered on 09/09/18 09:28; Start 09/09/18 at 08:45 Amlodipine Besylate (Norvasc) 10 mg DAILY PO Last administered on 09/09/18 09: 27; Start 09/09/18 at 10:00 Duloxetine HCl (Cymbalta) 90 mg DAILY PO Last administered on 09/09/18 09:27; Start 09/09/18 at 10:00 Metoclopramide HCl (Reglan Oral Solution) 5 mg TIDACHC PO ; Start 09/09/18 at 11 :30 Pantoprazole Sodium (Protonix) 40 mg DAILYAC PO Last administered on 09/09/18 09:31; Start 09/09/18 at 10:00 Zolpidem Tartrate (Ambien) 5 mg PRN QHS PRN PO INSOMNIA; Start 09/09/18 at 08: 45 Fentanyl Citrate (Fentanyl 2ml Vial) 25 mcg PRN Q2HR PRN IV PAIN Last administered on 09/09/18 09:28; Start 09/09/18 at 08:45 Piperacillin Sod/ Tazobactam Sod 2.25 gm/Sodium Chloride 50 ml @ 100 mls/hr Q6HRS IV ; Start 09/09/18 at 12:00 Active Scripts Active Metoclopramide Hcl 10 Mg/10 Ml Solution 10 Mg PO TIDACHC 30 Days Alprazolam 0.25 Mg Tablet 0.25 Mg PO PRN TID PRN 30 Days Tylenol (Acetaminophen) 325 Mg Tablet 650 Mg PO PRN Q6HRS PRN 30 Days Cymbalta (Duloxetine Hcl) 30 Mg Capsule.dr 90 Mg PO DAILY 30 Days Reported Oxycodone Hcl Immed.release (Oxycodone Hcl) 10 Mg Tablet 10 Mg PO PRN Q6HRS PRN Reglan (Metoclopramide Hcl) 10 Mg Tablet 1 Tab PO QID Amlodipine Besylate 10 Mg Tablet 10 Mg PO DAILY Nexium Capsule (Esomeprazole Magnesium) 40 Mg Capsule. 1 Cap PO DAILY Allergies Allergies: Coded Allergies: levofloxacin (Verified Allergy, Intermediate, 08/19/18) TOLERATES CIPRO I S O L A T I O N *CONTACT* (Verified Allergy, Unknown, 08/19/18) mrsa, chronic C.diff diphenhydramine HCl (Verified Adverse Reaction, Intermediate, "Jittery on the inside", 08/19/18) morphine (Verified Adverse Reaction, Intermediate, BLACKOUT, 08/19/18) REPORTS WHEN GIVEN IV MORPHINE SHE BLACKS OUT. NO ADVERSE REACTION TO ORAL OR IM ROS Review of System CONFUSED Physical Exam General: Cooperative, No acute distress HEENT: Atraumatic, Other (DRY MUCOSA) Lungs: Clear to auscultation Heart: Regular rate Abdomen: Normal bowel sounds, Soft, No tenderness Skin: No breakdown Neuro: Other (CONFUSED) Psych/Mental Status: Other (CONFUSED) MUSCULOSKELETAL: Other (DIFFUSE MUSCLE ATROPHY) Vitals VITALS Vital Signs Date Time Temp Pulse Resp B/P (MAP) Pulse Ox O2 Delivery O2 Flow Rate FiO2 09/09/18 11:08 90 Nasal Cannula 2.0 09/09/18 09:27 99 124/65 09/09/18 07:00 97.5 18 97.5 Labs Labs Laboratory Tests Test 09/09/18 00:14 09/09/18 00:20 09/09/18 01:30 Bedside Urine HCG, Qualitative Hcg negative (Negative) Urine Collection Type Unknown Urine Color Yellow Urine Clarity Cloudy Urine pH 6.0 Urine Specific [place] 1.025 Urine Protein Negative mg/dL (NEG-TRACE) Urine Glucose (UA) >=1000 mg/dL (NEG) Urine Ketones (Stick) Negative mg/dL (NEG) Urine Blood Large (NEG) Urine Nitrite Positive (NEG) Urine Bilirubin Negative (NEG) Urine Urobilinogen Dipstick 0.2 mg/dL (0.2 mg/dL) Urine Leukocyte Esterase Moderate (NEG) Urine RBC Tntc /HPF (0-2) Urine WBC Tntc /HPF (0-4) Urine Squamous Epithelial Cells Many /LPF Urine Bacteria Many /HPF (0-FEW) White Blood Count 13.4 x10^3/uL (4.0-11.0) Red Blood Count 3.12 x10^6/uL (3.50-5.40) Hemoglobin 8.1 g/dL (12.0-15.5) Hematocrit 25.0 % (36.0-47.0) Mean Corpuscular Volume 80 fL (79-100) Mean Corpuscular Hemoglobin 26 pg (25-35) Mean Corpuscular Hemoglobin Concent 32 g/dL (31-37) Red Cell Distribution Width 19.1 % (11.5-14.5) Platelet Count 417 x10^3/uL (140-400) Neutrophils (%) (Auto) 79 % (31-73) Lymphocytes (%) (Auto) 10 % (24-48) Monocytes (%) (Auto) 11 % (0-9) Eosinophils (%) (Auto) 0 % (0-3) Basophils (%) (Auto) 1 % (0-3) Neutrophils # (Auto) 10.5 x10^3uL (1.8-7.7) Lymphocytes # (Auto) 1.3 x10^3/uL (1.0-4.8) Monocytes # (Auto) 1.4 x10^3/uL (0.0-1.1) Eosinophils # (Auto) 0.0 x10^3/uL (0.0-0.7) Basophils # (Auto) 0.1 x10^3/uL (0.0-0.2) Sodium Level 133 mmol/L (136-145) Potassium Level 3.9 mmol/L (3.5-5.1) Chloride Level 93 mmol/L (98-107) Carbon Dioxide Level 21 mmol/L (21-32) Anion Gap 19 (6-14) Blood Urea Nitrogen 50 mg/dL (7-20) Creatinine 4.9 mg/dL (0.6-1.0) Estimated GFR (Cockcroft-Gault) 9.0 BUN/Creatinine Ratio 10 (6-20) Glucose Level 148 mg/dL (70-99) Calcium Level 9.3 mg/dL (8.5-10.1) Total Bilirubin 0.5 mg/dL (0.2-1.0) Aspartate Amino Transf (AST/SGOT) 27 U/L (15-37) Alanine Aminotransferase (ALT/SGPT) 18 U/L (14-59) Alkaline Phosphatase 88 U/L (46-116) Total Protein 8.0 g/dL (6.4-8.2) Albumin 3.1 g/dL (3.4-5.0) Albumin/Globulin Ratio 0.6 (1.0-1.7) Lipase 146 U/L (73-393) Laboratory Tests Test 09/09/18 00:14 09/09/18 00:20 09/09/18 01:30 Bedside Urine HCG, Qualitative Hcg negative (Negative) Urine Collection Type Unknown Urine Color Yellow Urine Clarity Cloudy Urine pH 6.0 Urine Specific [place] 1.025 Urine Protein Negative mg/dL (NEG-TRACE) Urine Glucose (UA) >=1000 mg/dL (NEG) Urine Ketones (Stick) Negative mg/dL (NEG) Urine Blood Large (NEG) Urine Nitrite Positive (NEG) Urine Bilirubin Negative (NEG) Urine Urobilinogen Dipstick 0.2 mg/dL (0.2 mg/dL) Urine Leukocyte Esterase Moderate (NEG) Urine RBC Tntc /HPF (0-2) Urine WBC Tntc /HPF (0-4) Urine Squamous Epithelial Cells Many /LPF Urine Bacteria Many /HPF (0-FEW) White Blood Count 13.4 x10^3/uL (4.0-11.0) Red Blood Count 3.12 x10^6/uL (3.50-5.40) Hemoglobin 8.1 g/dL (12.0-15.5) Hematocrit 25.0 % (36.0-47.0) Mean Corpuscular Volume 80 fL (79-100) Mean Corpuscular Hemoglobin 26 pg (25-35) Mean Corpuscular Hemoglobin Concent 32 g/dL (31-37) Red Cell Distribution Width 19.1 % (11.5-14.5) Platelet Count 417 x10^3/uL (140-400) Neutrophils (%) (Auto) 79 % (31-73) Lymphocytes (%) (Auto) 10 % (24-48) Monocytes (%) (Auto) 11 % (0-9) Eosinophils (%) (Auto) 0 % (0-3) Basophils (%) (Auto) 1 % (0-3) Neutrophils # (Auto) 10.5 x10^3uL (1.8-7.7) Lymphocytes # (Auto) 1.3 x10^3/uL (1.0-4.8) Monocytes # (Auto) 1.4 x10^3/uL (0.0-1.1) Eosinophils # (Auto) 0.0 x10^3/uL (0.0-0.7) Basophils # (Auto) 0.1 x10^3/uL (0.0-0.2) Sodium Level 133 mmol/L (136-145) Potassium Level 3.9 mmol/L (3.5-5.1) Chloride Level 93 mmol/L (98-107) Carbon Dioxide Level 21 mmol/L (21-32) Anion Gap 19 (6-14) Blood Urea Nitrogen 50 mg/dL (7-20) Creatinine 4.9 mg/dL (0.6-1.0) Estimated GFR (Cockcroft-Gault) 9.0 BUN/Creatinine Ratio 10 (6-20) Glucose Level 148 mg/dL (70-99) Calcium Level 9.3 mg/dL (8.5-10.1) Total Bilirubin 0.5 mg/dL (0.2-1.0) Aspartate Amino Transf (AST/SGOT) 27 U/L (15-37) Alanine Aminotransferase (ALT/SGPT) 18 U/L (14-59) Alkaline Phosphatase 88 U/L (46-116) Total Protein 8.0 g/dL (6.4-8.2) Albumin 3.1 g/dL (3.4-5.0) Albumin/Globulin Ratio 0.6 (1.0-1.7) Lipase 146 U/L (73-393) Assessment/Plan Assessment/Plan IMP GILES-CR OF 4.9 CKD STAGE 4 WITH CR OF 2.5 AT BASELINE DEHYDRATION MET ENCEPHALOPATHY NEUROGENIC BLADDER DM II HTN LEUCOCYTOSIS ANEMIA PLAN HYDRATION ANTIBIOTICS SYLVESTER DESIREE MICHAELS MD Sep 09, 2018 11:17
--- NOTE | 2018-09-09 11:23 | PDOC2 ---
CONSULT Date of Consult Date of Consult DATE: 09/09/18 TIME: 11:18 Reason for Consult Reason for Consult: abdominal pain Referring Physician Referring Physician: Dr Whiting Identification/Chief Complaint Chief Complaint abdominal pain Source Source: Chart review, Patient History of Present Illness Reason for Visit: Patient reports upper abdominal pain and back pain x 3 days. Associated nausea and emesis. Denies constipation or diarrhea. Records reveal frequent admissions for n/v, chronic pain. She does have a hx of heavy alcohol use, gastroparesis--GI has seen multiple times Imaging is concerning for acalc cholecystitis Past Medical History Cardiovascular: HTN, Hyperlipidemia Pulmonary: No pertinent hx GI: GERD, Other Heme/Onc: Anemia NOS Hepatobiliary: Other Psych: Anxiety, Depression Rheumatologic: Fibromyalgia Infectious disease: No pertinent hx, Other Renal/: Chronic renal insuff, Other Past Surgical History Past Surgical History: Total knee replacement, Tubal Ligation, Other Family History Family History: Heart Disease, Hypertension Social History No ALCOHOL: heavy Drugs: Marijuana Lives: Alone Current Medications Current Medications Current Medications Ceftriaxone Sodium (Rocephin Im) 1 gm 1X ONCE IM Last administered on at 02:05; Start 09/09/18 at 00:45; Stop 09/09/18 at 00:46; Status DC Sodium Chloride 1,000 ml @ 1,000 mls/hr 1X ONCE IV Last administered on at 02:04; Start 09/09/18 at 01:45; Stop 09/09/18 at 02:44; Status DC Ondansetron HCl (Zofran) 4 mg 1X ONCE IV Last administered on 09/09/18at 01:45 ; Start 09/09/18 at 01:45; Stop 09/09/18 at 01:46; Status DC Sodium Chloride 1,000 ml @ 1,000 mls/hr 1X ONCE IV Last administered on at 03:00; Start 09/09/18 at 03:00; Stop 09/09/18 at 03:59; Status DC Ondansetron HCl (Zofran) 4 mg PRN Q8HRS PRN IV NAUSEA/VOMITING Last administered on 09/09/18at 07:55; Start 09/09/18 at 03:00; Stop 09/09/18 at 08:37 ; Status DC Tramadol HCl (Ultram) 50 mg PRN Q6HRS PRN PO PAIN Last administered on 05:42; Start 09/09/18 at 05:30 Oxycodone HCl (Roxicodone) 5 mg PRN Q4HRS PRN PO PAIN Last administered on 09/09 11:08; Start 09/09/18 at 05:30 Ondansetron HCl (Zofran) 4 mg PRN Q6HRS PRN IV NAUSEA/VOMITING; Start 09/09/18 at 08:45 Linezolid/Dextrose 300 ml @ 300 mls/hr Q12HR IV Last administered on 10:53; Start 09/09/18 at 10:00 Acetaminophen (Tylenol) 650 mg PRN Q6HRS PRN PO Headaches, Temp > 101.5F; Start 09/09/18 at 08:45 Alprazolam (Xanax) 0.25 mg PRN TID PRN PO ANXIETY / AGITATION, 1ST CHOIC Last administered on 09/09/18 09:28; Start 09/09/18 at 08:45 Amlodipine Besylate (Norvasc) 10 mg DAILY PO Last administered on 09/09/18 09: 27; Start 09/09/18 at 10:00 Duloxetine HCl (Cymbalta) 90 mg DAILY PO Last administered on 09/09/18 09:27; Start 09/09/18 at 10:00 Metoclopramide HCl (Reglan Oral Solution) 5 mg TIDACHC PO ; Start 09/09/18 at 11 :30 Pantoprazole Sodium (Protonix) 40 mg DAILYAC PO Last administered on 09/09/18 09:31; Start 09/09/18 at 10:00 Zolpidem Tartrate (Ambien) 5 mg PRN QHS PRN PO INSOMNIA; Start 09/09/18 at 08: 45 Fentanyl Citrate (Fentanyl 2ml Vial) 25 mcg PRN Q2HR PRN IV PAIN Last administered on 09/09/18 09:28; Start 09/09/18 at 08:45 Piperacillin Sod/ Tazobactam Sod 2.25 gm/Sodium Chloride 50 ml @ 100 mls/hr Q6HRS IV ; Start 09/09/18 at 12:00 Active Scripts Active Metoclopramide Hcl 10 Mg/10 Ml Solution 10 Mg PO TIDACHC 30 Days Alprazolam 0.25 Mg Tablet 0.25 Mg PO PRN TID PRN 30 Days Tylenol (Acetaminophen) 325 Mg Tablet 650 Mg PO PRN Q6HRS PRN 30 Days Cymbalta (Duloxetine Hcl) 30 Mg Capsule. 90 Mg PO DAILY 30 Days Reported Oxycodone Hcl Immed.release (Oxycodone Hcl) 10 Mg Tablet 10 Mg PO PRN Q6HRS PRN Reglan (Metoclopramide Hcl) 10 Mg Tablet 1 Tab PO QID Amlodipine Besylate 10 Mg Tablet 10 Mg PO DAILY Nexium Capsule (Esomeprazole Magnesium) 40 Mg Capsule. 1 Cap PO DAILY Allergies Allergies: Coded Allergies: levofloxacin (Verified Allergy, Intermediate, 08/19/18) TOLERATES CIPRO I S O L A T I O N *CONTACT* (Verified Allergy, Unknown, 08/19/18) mrsa, chronic C.diff diphenhydramine HCl (Verified Adverse Reaction, Intermediate, "Jittery on the inside", 08/19/18) morphine (Verified Adverse Reaction, Intermediate, BLACKOUT, 08/19/18) REPORTS WHEN GIVEN IV MORPHINE SHE BLACKS OUT. NO ADVERSE REACTION TO ORAL OR IM Physical Exam General: Alert, Cooperative, Other (in acute pain) HEENT: Atraumatic, Mucous membr. moist/pink Lungs: Other (diminished, on 02) Heart: Regular rate, Normal S1, Normal S2 Abdomen: Soft, Other (diffusely tender, greater to RUQ and epigastric ) Extremities: No clubbing, No cyanosis Skin: No breakdown, No significant lesion Neuro: Normal speech, Sensation intact Psych/Mental Status: Mental status NL, Mood NL MUSCULOSKELETAL: No deformity, No swelling Vitals VITALS Vital Signs Date Time Temp Pulse Resp B/P (MAP) Pulse Ox O2 Delivery O2 Flow Rate FiO2 09/09/18 11:08 90 Nasal Cannula 2.0 09/09/18 09:27 99 124/65 09/09/18 07:00 97.5 18 97.5 Labs Labs Laboratory Tests Test 09/09/18 00:14 09/09/18 00:20 09/09/18 01:30 Bedside Urine HCG, Qualitative Hcg negative (Negative) Urine Collection Type Unknown Urine Color Yellow Urine Clarity Cloudy Urine pH 6.0 Urine Specific [place] 1.025 Urine Protein Negative mg/dL (NEG-TRACE) Urine Glucose (UA) >=1000 mg/dL (NEG) Urine Ketones (Stick) Negative mg/dL (NEG) Urine Blood Large (NEG) Urine Nitrite Positive (NEG) Urine Bilirubin Negative (NEG) Urine Urobilinogen Dipstick 0.2 mg/dL (0.2 mg/dL) Urine Leukocyte Esterase Moderate (NEG) Urine RBC Tntc /HPF (0-2) Urine WBC Tntc /HPF (0-4) Urine Squamous Epithelial Cells Many /LPF Urine Bacteria Many /HPF (0-FEW) White Blood Count 13.4 x10^3/uL (4.0-11.0) Red Blood Count 3.12 x10^6/uL (3.50-5.40) Hemoglobin 8.1 g/dL (12.0-15.5) Hematocrit 25.0 % (36.0-47.0) Mean Corpuscular Volume 80 fL (79-100) Mean Corpuscular Hemoglobin 26 pg (25-35) Mean Corpuscular Hemoglobin Concent 32 g/dL (31-37) Red Cell Distribution Width 19.1 % (11.5-14.5) Platelet Count 417 x10^3/uL (140-400) Neutrophils (%) (Auto) 79 % (31-73) Lymphocytes (%) (Auto) 10 % (24-48) Monocytes (%) (Auto) 11 % (0-9) Eosinophils (%) (Auto) 0 % (0-3) Basophils (%) (Auto) 1 % (0-3) Neutrophils # (Auto) 10.5 x10^3uL (1.8-7.7) Lymphocytes # (Auto) 1.3 x10^3/uL (1.0-4.8) Monocytes # (Auto) 1.4 x10^3/uL (0.0-1.1) Eosinophils # (Auto) 0.0 x10^3/uL (0.0-0.7) Basophils # (Auto) 0.1 x10^3/uL (0.0-0.2) Sodium Level 133 mmol/L (136-145) Potassium Level 3.9 mmol/L (3.5-5.1) Chloride Level 93 mmol/L (98-107) Carbon Dioxide Level 21 mmol/L (21-32) Anion Gap 19 (6-14) Blood Urea Nitrogen 50 mg/dL (7-20) Creatinine 4.9 mg/dL (0.6-1.0) Estimated GFR (Cockcroft-Gault) 9.0 BUN/Creatinine Ratio 10 (6-20) Glucose Level 148 mg/dL (70-99) Calcium Level 9.3 mg/dL (8.5-10.1) Total Bilirubin 0.5 mg/dL (0.2-1.0) Aspartate Amino Transf (AST/SGOT) 27 U/L (15-37) Alanine Aminotransferase (ALT/SGPT) 18 U/L (14-59) Alkaline Phosphatase 88 U/L (46-116) Total Protein 8.0 g/dL (6.4-8.2) Albumin 3.1 g/dL (3.4-5.0) Albumin/Globulin Ratio 0.6 (1.0-1.7) Lipase 146 U/L (73-393) Laboratory Tests Test 09/09/18 00:14 09/09/18 00:20 09/09/18 01:30 Bedside Urine HCG, Qualitative Hcg negative (Negative) Urine Collection Type Unknown Urine Color Yellow Urine Clarity Cloudy Urine pH 6.0 Urine Specific [place] 1.025 Urine Protein Negative mg/dL (NEG-TRACE) Urine Glucose (UA) >=1000 mg/dL (NEG) Urine Ketones (Stick) Negative mg/dL (NEG) Urine Blood Large (NEG) Urine Nitrite Positive (NEG) Urine Bilirubin Negative (NEG) Urine Urobilinogen Dipstick 0.2 mg/dL (0.2 mg/dL) Urine Leukocyte Esterase Moderate (NEG) Urine RBC Tntc /HPF (0-2) Urine WBC Tntc /HPF (0-4) Urine Squamous Epithelial Cells Many /LPF Urine Bacteria Many /HPF (0-FEW) White Blood Count 13.4 x10^3/uL (4.0-11.0) Red Blood Count 3.12 x10^6/uL (3.50-5.40) Hemoglobin 8.1 g/dL (12.0-15.5) Hematocrit 25.0 % (36.0-47.0) Mean Corpuscular Volume 80 fL (79-100) Mean Corpuscular Hemoglobin 26 pg (25-35) Mean Corpuscular Hemoglobin Concent 32 g/dL (31-37) Red Cell Distribution Width 19.1 % (11.5-14.5) Platelet Count 417 x10^3/uL (140-400) Neutrophils (%) (Auto) 79 % (31-73) Lymphocytes (%) (Auto) 10 % (24-48) Monocytes (%) (Auto) 11 % (0-9) Eosinophils (%) (Auto) 0 % (0-3) Basophils (%) (Auto) 1 % (0-3) Neutrophils # (Auto) 10.5 x10^3uL (1.8-7.7) Lymphocytes # (Auto) 1.3 x10^3/uL (1.0-4.8) Monocytes # (Auto) 1.4 x10^3/uL (0.0-1.1) Eosinophils # (Auto) 0.0 x10^3/uL (0.0-0.7) Basophils # (Auto) 0.1 x10^3/uL (0.0-0.2) Sodium Level 133 mmol/L (136-145) Potassium Level 3.9 mmol/L (3.5-5.1) Chloride Level 93 mmol/L (98-107) Carbon Dioxide Level 21 mmol/L (21-32) Anion Gap 19 (6-14) Blood Urea Nitrogen 50 mg/dL (7-20) Creatinine 4.9 mg/dL (0.6-1.0) Estimated GFR (Cockcroft-Gault) 9.0 BUN/Creatinine Ratio 10 (6-20) Glucose Level 148 mg/dL (70-99) Calcium Level 9.3 mg/dL (8.5-10.1) Total Bilirubin 0.5 mg/dL (0.2-1.0) Aspartate Amino Transf (AST/SGOT) 27 U/L (15-37) Alanine Aminotransferase (ALT/SGPT) 18 U/L (14-59) Alkaline Phosphatase 88 U/L (46-116) Total Protein 8.0 g/dL (6.4-8.2) Albumin 3.1 g/dL (3.4-5.0) Albumin/Globulin Ratio 0.6 (1.0-1.7) Lipase 146 U/L (73-393) Assessment/Plan Assessment/Plan abdominal pain GILES, CKD, HTN, HLD, UTI hx of alcohol use gastroparesis leukocytosis, imaging concerning for acalc cholecystitis will check CHARLES KUMARI CLIENT APPLICATION SUPPORT SPECIALIST Sep 09, 2018 11:23
[2018-09-09] MEDS ORDERED: METOCLOPRAMIDE ORAL SOLN 10 MG/10 ML SOLUTION. PO SCH (11:30)
--- NOTE | 2018-09-09 12:25 | PDOC1 ---
History and Physical Date of Admission Date of Admission DATE: 09/09/18 TIME: : Identification/Chief Complaint Chief Complaint Shaky, abdominal pain, emesis Source Source: Caregiver, Chart review, Patient History of Present Illness History of Present Illness 63-year-old female known to the whole hospital, comes in again after being discharged from [facility] after 6 days of rehabilitation. She has been home only for one week and is now back again here. I saw her [facility] and she was doing very well there. Maybe she started drinking again. But was admitted because of a jump in creatinine shane 4.8, from her baseline, WBC 13 with no fevers, UTI again, she has history of VRE UTI cannot afford Zyvox. So far no diarrhea she does have also history of C. difficile. But CT abdomen and pelvis was done which shows possibly acalculous gallbladder. There is pericholecystic fluid or gallbladder wall thickening and soniographic Brown's, as verified by HIDA scan and now GS also was consulted. Patient is in severe pain requesting IV Dilaudid VS otherwise remained stable Past Medical History Cardiovascular: HTN, Hyperlipidemia Pulmonary: No pertinent hx GI: GERD, Other Heme/Onc: Anemia NOS Hepatobiliary: Other Psych: Anxiety, Depression Rheumatologic: Fibromyalgia Infectious disease: No pertinent hx, Other Renal/: Chronic renal insuff, Other Past Surgical History Past Surgical History: Total knee replacement, Tubal Ligation, Other Family History Family History: Heart Disease, Hypertension Social History Smoke: No ALCOHOL: heavy Drugs: Marijuana Current Medications Current Medications Current Medications Ceftriaxone Sodium (Rocephin Im) 1 gm 1X ONCE IM Last administered on at 02:05; Start 09/09/18 at 00:45; Stop 09/09/18 at 00:46; Status DC Sodium Chloride 1,000 ml @ 1,000 mls/hr 1X ONCE IV Last administered on at 02:04; Start 09/09/18 at 01:45; Stop 09/09/18 at 02:44; Status DC Ondansetron HCl (Zofran) 4 mg 1X ONCE IV Last administered on 09/09/18at 01:45 ; Start 09/09/18 at 01:45; Stop 09/09/18 at 01:46; Status DC Sodium Chloride 1,000 ml @ 1,000 mls/hr 1X ONCE IV Last administered on 03:00; Start 09/09/18 at 03:00; Stop 09/09/18 at 03:59; Status DC Ondansetron HCl (Zofran) 4 mg PRN Q8HRS PRN IV NAUSEA/VOMITING Last administered on 09/09/18at 07:55; Start 09/09/18 at 03:00; Stop 09/09/18 at 08:37 ; Status DC Tramadol HCl (Ultram) 50 mg PRN Q6HRS PRN PO PAIN Last administered on 05:42; Start 09/09/18 at 05:30 Oxycodone HCl (Roxicodone) 5 mg PRN Q4HRS PRN PO PAIN Last administered on 09/09at 11:08; Start 09/09/18 at 05:30 Ondansetron HCl (Zofran) 4 mg PRN Q6HRS PRN IV NAUSEA/VOMITING; Start 09/09/18 at 08:45 Linezolid/Dextrose 300 ml @ 300 mls/hr Q12HR IV Last administered on at 10:53; Start 09/09/18 at 10:00 Acetaminophen (Tylenol) 650 mg PRN Q6HRS PRN PO Headaches, Temp > 101.5F; Start 09/09/18 at 08:45 Alprazolam (Xanax) 0.25 mg PRN TID PRN PO ANXIETY / AGITATION, 1ST CHOIC Last administered on 09/09/18at 09:28; Start 09/09/18 at 08:45 Amlodipine Besylate (Norvasc) 10 mg DAILY PO Last administered on 09/09/18 09: 27; Start 09/09/18 at 10:00 Duloxetine HCl (Cymbalta) 90 mg DAILY PO Last administered on 09/09/18 09:27; Start 09/09/18 at 10:00 Metoclopramide HCl (Reglan Oral Solution) 5 mg TIDACHC PO ; Start 09/09/18 at 11 :30 Pantoprazole Sodium (Protonix) 40 mg DAILYAC PO Last administered on 09/09/18 09:31; Start 09/09/18 at 10:00 Zolpidem Tartrate (Ambien) 5 mg PRN QHS PRN PO INSOMNIA; Start 09/09/18 at 08: 45 Fentanyl Citrate (Fentanyl 2ml Vial) 25 mcg PRN Q2HR PRN IV PAIN Last administered on 09/09/18at 09:28; Start 09/09/18 at 08:45 Piperacillin Sod/ Tazobactam Sod 2.25 gm/Sodium Chloride 50 ml @ 100 mls/hr Q6HRS IV ; Start 09/09/18 at 12:00 Sodium Chloride 1,000 ml @ 100 mls/hr Q10H IV ; Start 09/09/18 at 11:30 Active Scripts Active Metoclopramide Hcl 10 Mg/10 Ml Solution 10 Mg PO TIDACHC 30 Days Alprazolam 0.25 Mg Tablet 0.25 Mg PO PRN TID PRN 30 Days Tylenol (Acetaminophen) 325 Mg Tablet 650 Mg PO PRN Q6HRS PRN 30 Days Cymbalta (Duloxetine Hcl) 30 Mg Capsule.dr 90 Mg PO DAILY 30 Days Reported Oxycodone Hcl Immed.release (Oxycodone Hcl) 10 Mg Tablet 10 Mg PO PRN Q6HRS PRN Reglan (Metoclopramide Hcl) 10 Mg Tablet 1 Tab PO QID Amlodipine Besylate 10 Mg Tablet 10 Mg PO DAILY Nexium Capsule (Esomeprazole Magnesium) 40 Mg Capsule. 1 Cap PO DAILY Allergies Allergies: Coded Allergies: levofloxacin (Verified Allergy, Intermediate, 08/19/18) TOLERATES CIPRO I S O L A T I O N *CONTACT* (Verified Allergy, Unknown, 08/19/18) mrsa, chronic C.diff diphenhydramine HCl (Verified Adverse Reaction, Intermediate, "Jittery on the inside", 08/19/18) morphine (Verified Adverse Reaction, Intermediate, BLACKOUT, 08/19/18) REPORTS WHEN GIVEN IV MORPHINE SHE BLACKS OUT. NO ADVERSE REACTION TO ORAL OR IM ROS Review of System Vomiting, abdominal pain pain, weak, shaky Physical Exam General: Oriented X3, Cooperative, moderate distress, Other (tsymptom magnification, writhing in pain) HEENT: PERRLA Lungs: Clear to auscultation, Normal air movement Heart: S1S2, RRR, no thrills, no rubs, no gallops, no murmurs, no jug vein distention Cardiovascular: S1, S2 Abdomen: Soft, Other (tenderness epigastric area, with voluntary guarding) Rectal Exam: not examined PELVIC: Nml ext genitalia Extremities: No clubbing, No cyanosis, No edema, Normal pulses, No tenderness/ swelling Skin: No rashes, No breakdown, No significant lesion Neuro: Normal gait, Normal speech, Strength at 5/5 X4 ext, Normal tone, Sensation intact, Cranial nerves 3-12 NL, Reflexes 2+ Psych/Mental Status: Mental status NL, Mood NL Vitals Vitals Vital Signs Date Time Temp Pulse Resp B/P (MAP) Pulse Ox O2 Delivery O2 Flow Rate FiO2 09/09/18 11:08 90 Nasal Cannula 2.0 09/09/18 09:27 99 124/65 09/09/18 07:00 97.5 18 97.5 Labs Labs Laboratory Tests Test 09/09/18 00:14 09/09/18 00:20 09/09/18 01:30 Bedside Urine HCG, Qualitative Hcg negative (Negative) Urine Collection Type Unknown Urine Color Yellow Urine Clarity Cloudy Urine pH 6.0 Urine Specific [place] 1.025 Urine Protein Negative mg/dL (NEG-TRACE) Urine Glucose (UA) >=1000 mg/dL (NEG) Urine Ketones (Stick) Negative mg/dL (NEG) Urine Blood Large (NEG) Urine Nitrite Positive (NEG) Urine Bilirubin Negative (NEG) Urine Urobilinogen Dipstick 0.2 mg/dL (0.2 mg/dL) Urine Leukocyte Esterase Moderate (NEG) Urine RBC Tntc /HPF (0-2) Urine WBC Tntc /HPF (0-4) Urine Squamous Epithelial Cells Many /LPF Urine Bacteria Many /HPF (0-FEW) White Blood Count 13.4 x10^3/uL (4.0-11.0) Red Blood Count 3.12 x10^6/uL (3.50-5.40) Hemoglobin 8.1 g/dL (12.0-15.5) Hematocrit 25.0 % (36.0-47.0) Mean Corpuscular Volume 80 fL (79-100) Mean Corpuscular Hemoglobin 26 pg (25-35) Mean Corpuscular Hemoglobin Concent 32 g/dL (31-37) Red Cell Distribution Width 19.1 % (11.5-14.5) Platelet Count 417 x10^3/uL (140-400) Neutrophils (%) (Auto) 79 % (31-73) Lymphocytes (%) (Auto) 10 % (24-48) Monocytes (%) (Auto) 11 % (0-9) Eosinophils (%) (Auto) 0 % (0-3) Basophils (%) (Auto) 1 % (0-3) Neutrophils # (Auto) 10.5 x10^3uL (1.8-7.7) Lymphocytes # (Auto) 1.3 x10^3/uL (1.0-4.8) Monocytes # (Auto) 1.4 x10^3/uL (0.0-1.1) Eosinophils # (Auto) 0.0 x10^3/uL (0.0-0.7) Basophils # (Auto) 0.1 x10^3/uL (0.0-0.2) Sodium Level 133 mmol/L (136-145) Potassium Level 3.9 mmol/L (3.5-5.1) Chloride Level 93 mmol/L (98-107) Carbon Dioxide Level 21 mmol/L (21-32) Anion Gap 19 (6-14) Blood Urea Nitrogen 50 mg/dL (7-20) Creatinine 4.9 mg/dL (0.6-1.0) Estimated GFR (Cockcroft-Gault) 9.0 BUN/Creatinine Ratio 10 (6-20) Glucose Level 148 mg/dL (70-99) Calcium Level 9.3 mg/dL (8.5-10.1) Total Bilirubin 0.5 mg/dL (0.2-1.0) Aspartate Amino Transf (AST/SGOT) 27 U/L (15-37) Alanine Aminotransferase (ALT/SGPT) 18 U/L (14-59) Alkaline Phosphatase 88 U/L (46-116) Total Protein 8.0 g/dL (6.4-8.2) Albumin 3.1 g/dL (3.4-5.0) Albumin/Globulin Ratio 0.6 (1.0-1.7) Lipase 146 U/L (73-393) Laboratory Tests Test 09/09/18 00:14 09/09/18 00:20 09/09/18 01:30 Bedside Urine HCG, Qualitative Hcg negative (Negative) Urine Collection Type Unknown Urine Color Yellow Urine Clarity Cloudy Urine pH 6.0 Urine Specific [place] 1.025 Urine Protein Negative mg/dL (NEG-TRACE) Urine Glucose (UA) >=1000 mg/dL (NEG) Urine Ketones (Stick) Negative mg/dL (NEG) Urine Blood Large (NEG) Urine Nitrite Positive (NEG) Urine Bilirubin Negative (NEG) Urine Urobilinogen Dipstick 0.2 mg/dL (0.2 mg/dL) Urine Leukocyte Esterase Moderate (NEG) Urine RBC Tntc /HPF (0-2) Urine WBC Tntc /HPF (0-4) Urine Squamous Epithelial Cells Many /LPF Urine Bacteria Many /HPF (0-FEW) White Blood Count 13.4 x10^3/uL (4.0-11.0) Red Blood Count 3.12 x10^6/uL (3.50-5.40) Hemoglobin 8.1 g/dL (12.0-15.5) Hematocrit 25.0 % (36.0-47.0) Mean Corpuscular Volume 80 fL (79-100) Mean Corpuscular Hemoglobin 26 pg (25-35) Mean Corpuscular Hemoglobin Concent 32 g/dL (31-37) Red Cell Distribution Width 19.1 % (11.5-14.5) Platelet Count 417 x10^3/uL (140-400) Neutrophils (%) (Auto) 79 % (31-73) Lymphocytes (%) (Auto) 10 % (24-48) Monocytes (%) (Auto) 11 % (0-9) Eosinophils (%) (Auto) 0 % (0-3) Basophils (%) (Auto) 1 % (0-3) Neutrophils # (Auto) 10.5 x10^3uL (1.8-7.7) Lymphocytes # (Auto) 1.3 x10^3/uL (1.0-4.8) Monocytes # (Auto) 1.4 x10^3/uL (0.0-1.1) Eosinophils # (Auto) 0.0 x10^3/uL (0.0-0.7) Basophils # (Auto) 0.1 x10^3/uL (0.0-0.2) Sodium Level 133 mmol/L (136-145) Potassium Level 3.9 mmol/L (3.5-5.1) Chloride Level 93 mmol/L (98-107) Carbon Dioxide Level 21 mmol/L (21-32) Anion Gap 19 (6-14) Blood Urea Nitrogen 50 mg/dL (7-20) Creatinine 4.9 mg/dL (0.6-1.0) Estimated GFR (Cockcroft-Gault) 9.0 BUN/Creatinine Ratio 10 (6-20) Glucose Level 148 mg/dL (70-99) Calcium Level 9.3 mg/dL (8.5-10.1) Total Bilirubin 0.5 mg/dL (0.2-1.0) Aspartate Amino Transf (AST/SGOT) 27 U/L (15-37) Alanine Aminotransferase (ALT/SGPT) 18 U/L (14-59) Alkaline Phosphatase 88 U/L (46-116) Total Protein 8.0 g/dL (6.4-8.2) Albumin 3.1 g/dL (3.4-5.0) Albumin/Globulin Ratio 0.6 (1.0-1.7) Lipase 146 U/L (73-393) VTE Prophylaxis Ordered VTE Prophylaxis Devices: Yes VTE Pharmacological Prophylaxi: Yes Assessment/Plan Assessment/Plan Acalculus cholecystitis Abd pain history of VRE UTI UTI, complicated Intermittently self catheters History of C. difficile-no diarrhea so far Sepsis POA/SIRS etoh drinker Anxiety NOS Depression NOS PLAN: Admit 2 MN HIDA scan verifies CT findings Keep nothing by mouth Fentanyl for now, no morphine GS on board Might need cholecystectomy Zyvox for VRE UTI I did consult ID Contact isolation Other supportive meds CIWA protocol Alcohol cessation counseled one-to-one less than 30 minutes done today LIDIA URIAS MD Sep 09, 2018 12:25
[2018-09-09] MEDS: IV NORMAL SALINE 1000ML BAG 1,000 ML IV SCH (12:27)
[2018-09-09] MEDS: PIPERACILLIN/TAZOBACTAM 2.25 GM in IV NORMAL SALINE 50ML 50 ML IV SCH ×3 (12:28→23:33)
[2018-09-09] MEDS: fentaNYL PF VIAL 100 MCG/2 ML VIAL IV PRN ×3 (12:28→20:42)
[2018-09-09] MEDS ORDERED: METOCLOPRAMIDE ORAL SOLN 10 MG/10 ML SOLUTION. PO PRN (12:30)
--- NOTE | 2018-09-09 14:23 | PDOC ---
Provider Note Provider Note Patient out of room getting HIDA scan. We'll follow up on HIDA scan results if a calculus cholecystitis will need laparoscopic cholecystectomy versus cholecystostomy tube. WEI MONROE MD Sep 09, 2018 14:23
--- NOTE | 2018-09-09 14:36 | NUR ---
SW following pt for anticipated dc needs. Chart reviewed. Pt lives at home and was recently discharged from [facility]. PT/OT pending. SW will continue to follow pt to evaluate dc needs.
[2018-09-09 16:00] VITALS: BP 136/67
--- NOTE | 2018-09-09 16:52 | RAD ---
Radionuclide hepatobiliary scan, 09/09/2018: HISTORY: Abdominal pain, possible acalculous cholecystitis Following IV injection of 5 mCi of technetium 99m Choletec there was prompt uptake of the radionuclide from the blood stream by the liver. Activity is present in the gallbladder and bile ducts at 10 minutes. Initial imaging over 90 minutes demonstrated increasing activity in the gallbladder without extension into the small bowel. IMPRESSION: 1. No evidence of cystic duct obstruction to suggest cholecystitis. 2. Lack of extension of activity into the small bowel over 90 minutes raises the possibility of distal common bile duct obstruction, although this may be physiologic or related to narcotic administration. Delayed images are planned for later this evening, ideally after a fatty meal, and will be reported separately. Electronically signed by: Russell Barrera MD (09/09/2018 4:49 PM) [facility]
[2018-09-09 19:00] VITALS: BP 116/72
[2018-09-09] MEDS: LACTOBACILLUS RHAMNOSUS GG 1 CAPSULE. PO SCH (20:42)
--- NOTE | 2018-09-09 21:00 | NUR ---
Patients oxygen saturation dropped to 78%, titrated oxygen up and repositioned patient. The oxygen saturation is now in the low 90's. Monitoring patient closely. Addendum: 09/10/18 at 0040 by MAHAD GALINDO RN RN Changed oxygen delivery from nasal cannula to simple face mask.
[2018-09-09 23:00] VITALS: BP 115/79
[2018-09-10] VITALS (22 sets, daily range): BP systolic 42–123; BP diastolic 33–71
--- NOTE | 2018-09-10 00:25 | NUR ---
Patient triggers positive for sepsis. ICU nurse notified. Lactic and Blood cultures have been ordered. is aware and ID has been consulted
--- NOTE | 2018-09-10 00:54 | CONS ---
DATE OF CONSULTATION: 09/09/2018 INFECTIOUS DISEASE CONSULTATION: ROOM: 500. REQUESTING PHYSICIAN: Dr. Hill. REASON FOR CONSULTATION: History of VRE. HISTORY OF PRESENT ILLNESS: The patient is a 63-year-old female with a history of recurrent UTIs, renal failure, history of recurrent C. diff colitis, history of positive MRSA screen who was brought to [facility] Emergency Room life enrichment specialist hours of the secondary to hallucinations that had been going on for several days. Currently, the patient is a little bit confused. She has given a history as related to her admission back in March. She denies any active fevers or chills. No change in urine, has some abdominal discomfort, denies any vomiting. No gross shortness of air. On arrival, she had a white count of 13.4. She has been afebrile. She initially underwent a CT scan of the abdomen and pelvis, which revealed a diffusely tender gallbladder without radiopaque stones. There is a small right trace left pleural effusions with consolidations in the lung bases. She then underwent an ultrasound of the abdomen, which showed distended gallbladder with wall thickening and positive sonographic Brown sign without gallstones. Currently, she is lying in the bed and continues to have some hallucinations at times. PAST MEDICAL HISTORY: Positive for recurrent urinary tract infections, has had to do self-catheterizations before, recently had E. coli was sensitive except for Bactrim. She has a history of VRE, history of MRSA, history of C. diff. She has had esophageal strictures, underwent recent dilatation for this by EGD. History of hypertension, hyperlipidemia, gastroesophageal reflux disease, chronic kidney disease, anemia, anxiety, depression, fibromyalgia, history of noncompliance as well. PAST SURGICAL HISTORY: Positive for the above-mentioned esophageal dilatation, suprapubic catheter placement, total knee replacement, tubal ligation. REVIEW OF SYSTEMS: Otherwise negative except as mentioned above. ALLERGIES: LISTED LEVOFLOXACIN, but she has tolerated Cipro. MORPHINE AND BENADRYL ALSO LISTED. SOCIAL HISTORY: Previous history of alcohol abuse. No drugs. Lives with her daughter, does have a history of smoking in the past. FAMILY HISTORY: Noncontributory. CURRENT MEDICATIONS: She is on Zyvox. She is on Rocephin x 1, Cymbalta, Zofran, Protonix, tramadol, Ambien. PHYSICAL EXAMINATION: VITAL SIGNS: She has been afebrile, temperature is 97.5, pulse 99, respirations 18, blood pressure 124/65. She had been on room air, but she was dropped down below 90, so oxygen is being placed currently. CONSTITUTIONAL: She appears comfortable. She is a little confused. No acute distress. HEENT: Pupils equal and reactive. Normal conjunctivae. Oral cavity, pharynx clear. NECK: Supple, no JVD. LUNGS: Clear to auscultation. HEART: S1, S2. ABDOMEN: Soft, mildly distended. There is tenderness and there is no guarding, but there is mild rebound. EXTREMITIES: No clubbing or cyanosis. No gross edema. SKIN: Warm to touch without signs of rash. NEUROLOGIC: She answers questions, but she is confused. PSYCHIATRIC: Affect is flat. LABORATORY DATA: White count 13.4, hemoglobin 8.1, platelets of 417, neutrophils 79, lymphs are 10, creatinine was 4.9, glucose was 148, BUN of 50. Normal liver function study tests. Lipase was 146. Urinalysis concerning for a urinary tract infection. Radiology reviewed in the history of present illness. IMPRESSION: 1. Leukocytosis. 2. Abdominal pain. 3. Distended gallbladder. 4. Acute kidney injury. 5. Encephalopathy with hallucinations. 6. Urinary tract infection present on admission, 09/09/2018. RECOMMENDATIONS: We will continue with Zyvox given her history of MRSA as well as VRE. Given her recent E. coli urinary tract infection, but also some gallbladder concern, we will add Zyvox. Discontinue any further Rocephin. We will have General Surgery evaluation. Follow up labs and cultures. Thank you, Dr. Darnell, for allowing me to participate in this patient's care. Should you have any questions, please do not hesitate to contact me. This was discussed with nursing. GILBERTO SEQUEIRA MD DR: ALIYA/hal JOB#: [id number] / [id number]
[2018-09-10 02:50] LABS: BASO # 0.1 x10^3/uL (0.0-0.2); BASO % 1 % (0-3); EOS % 0 % (0-3); HEMATOCRIT 24.7 % (36.0-47.0); HEMOGLOBIN 7.2 g/dL (12.0-15.5); LYMPH # 2.7 x10^3/uL (1.0-4.8); LYMPH % 13 % (24-48); MEAN CORPUSCULAR HEMOGLOBIN 26 pg (25-35); MEAN CORPUSCULAR HGB CONC 29 g/dL (31-37); MEAN CORPUSCULAR VOLUME 88 fL (79-100); MONO # 1.1 x10^3/uL (0.0-1.1); MONO % 5 % (0-9); NEUT # 17.6 x10^3uL (1.8-7.7); NEUT % 82 % (31-73); PLATELET COUNT 296 x10^3/uL (140-400); RED BLOOD COUNT 2.81 x10^6/uL (3.50-5.40); RED CELL DISTRIBUTION WIDTH 19.8 % (11.5-14.5); WHITE BLOOD COUNT 21.5 x10^3/uL (4.0-11.0)
--- NOTE | 2018-09-10 03:02 | PHYS DOC ---
Past Medical History Past Medical History: Fibromyalgia, Hypertension, Kidney Infection, Renal Disease, Other Additional Past Medical Histor: VRE,C-DIFF,FALLS,CHRONIC BACK/KNEE PAIN Past Surgical History: Knee Replacement, Other Additional Past Surgical Histo: BACK AND FEET SURGERY Alcohol Use: Heavy Drug Use: Marijuana Adult General Chief Complaint Chief Complaint: MULTIPLE COMPLAINTS HPI HPI Cardiac arrest on the Floor. Patient last seen 35 minutes prior to calling ruben lanier. On arrival CPR by acls protocal initiated by Nursing. Patient had received 1 epi prior to my arrival. Shortly patient was intubated 7.5 cuffed ET tube. Cords visualized. Breath sounds bilateral. Positive color change. Total Treatment-- epi x 2, Dextrose 1 amp, calcium, and bicarb. Return of spontaneous circulation--- Patient transferred to ICU-- Labs ordered and pending. Review of Systems Review of Systems unresponsive code blue Current Medications Current Medications Current Medications Medications (Trade) Dose Ordered Sig/Taz Start Time Stop Time Status Last Admin Dose Admin Ceftriaxone Sodium (Rocephin Im) 1 gm 1X ONCE 09/09/18 00:45 09/09/18 00:46 DC 09/09/18 02:05 1 GM Allergies Allergies Allergies Coded Allergies Type Severity Reaction Last Updated Verified levofloxacin Allergy Intermediate 08/19/18 Yes I S O L A T I O N *CONTACT* Allergy Unknown 08/19/18 Yes diphenhydramine HCl Adverse Reaction Intermediate "Jittery on the inside" 08/19 Yes morphine Adverse Reaction Intermediate BLACKOUT 08/19/18 Yes Physical Exam Physical Exam Constitutional: unresponsive HENT: Normocephalic, atraumatic, Cardiovascular:NO PULSE--- Lungs & Thorax: No spontaneous respiration Current Patient Data Vital Signs Vital Signs Date Time Temp Pulse Resp B/P (MAP) Pulse Ox O2 Delivery O2 Flow Rate FiO2 09/09/18 00:30 96 117/58 (77) 94 09/08/18 23:40 98.5 18 Room Air 98.5 Lab Values Laboratory Tests Test 09/09/18 00:14 09/09/18 00:20 POC Urine HCG, Qualitative Hcg negative (Negative) Urine Collection Type Unknown Urine Color Yellow Urine Clarity Cloudy Urine pH 6.0 Urine Specific [place] 1.025 Urine Protein Negative mg/dL (NEG-TRACE) Urine Glucose (UA) >=1000 mg/dL (NEG) Urine Ketones (Stick) Negative mg/dL (NEG) Urine Blood Large (NEG) Urine Nitrite Positive (NEG) Urine Bilirubin Negative (NEG) Urine Urobilinogen Dipstick 0.2 mg/dL (0.2 mg/dL) Urine Leukocyte Esterase Moderate (NEG) Urine RBC Tntc /HPF (0-2) Urine WBC Tntc /HPF (0-4) Urine Squamous Epithelial Cells Many /LPF Urine Bacteria Many /HPF (0-FEW) EKG EKG [] Radiology/Procedures Radiology/Procedures [] Impressions: Chest x-ray ET tube in proper position Course & Med Decision Making Course & Med Decision Making Pertinent Labs and Imaging studies reviewed. (See chart for details) [] Dragon Disclaimer Dragon Disclaimer This electronic medical record was generated, in whole or in part, using a voice recognition dictation system. Departure Departure Impression: Primary Impression: Cardiac arrest Disposition: 09 ADMITTED INPATIENT Condition: CRITICAL ALKA IBARRA DO Sep 10, 2018 03:02
[2018-09-10 03:08] LABS: ALBUMIN 1.8 g/dL (3.4-5.0); ALBUMIN/GLOBULIN RATIO 0.5 (1.0-1.7); CALCIUM 7.9 mg/dL (8.5-10.1); CREATININE 5.3 mg/dL (0.6-1.0); GFR 8.2; POTASSIUM 5.2 mmol/L (3.5-5.1); TOTAL BILIRUBIN 0.4 mg/dL (0.2-1.0); TOTAL PROTEIN 5.7 g/dL (6.4-8.2)
[2018-09-10] MEDS ORDERED: MIDAZOLAM 100mg/100ml NS BAG 100 ML IV PRN (03:30)
--- NOTE | 2018-09-10 03:32 | RAD ---
Indication:ET/OG placement TECHNIQUE:Portable AP chest X-ray COMPARISON:06/12/2018 FINDINGS: ET tube is seen less than 1 cm from the level of windy and should be withdrawn by approximately 2-3 cm. NG tube is seen with its tip in the distal stomach. Heart is normal in size. Diffuse hazy appearance of the right lung compared to the left lung. Dilated small bowel loops are seen in the upper abdomen. Visualized bony thorax within normal limits. No pneumothorax or effusion. IMPRESSION: 1. Please withdraw ET tube by 2-3 cm. 2. Mild diffuse haziness in the right lung likely interstitial infection or edema. Electronically signed by: Davi Baez DO (09/10/2018 3:29 AM) [facility]
[2018-09-10 03:43] LABS: % BANDS 21 % (0-9); % LYMPHS 12 % (24-48); % METAS 1 % (0-0); % MONOS 2 % (0-10); % SEGS 64 % (35-66); ANISOCYTOSIS SLIGHT; HYPOCHROMIA SLIGHT; PLT ESTIMATE ADEQUATE (ADEQUATE); POLYCHROMASIA SLIGHT; TOXIC GRANULATION SLIGHT
[2018-09-10 03:58] LABS: BASE EXCESS ABG -18 mmol/L (-3-3); FIO2 ABG 100; HCO3 ABG 11 mmol/L (21-28); PCO2 ABG 39 mmHg (35-46); PO2 ABG 72 mmHg (65-108); SAT O2 ABG 85 % (92-99)
[2018-09-10] MEDS: NOREPINEPHRIN 8MG/250ML PREMIX 250 ML IV PRN ×3 (03:59→11:47)
[2018-09-10] MEDS ORDERED: SODIUM BICARB ADULT 8.4% 50 MEQ/50 ML DISP.SYRIN. IV ONE (04:00)
[2018-09-10] MEDS: IV NORMAL SALINE 1000ML BAG 1,000 ML IV SCH ×2 (04:04→05:50)
--- NOTE | 2018-09-10 05:11 | NUR ---
Patient arrived on unit at 0245 accompanied by RNs and RTs. Patient coded on 5N, see code blue sheet. Patient was asystole when RN went to check on her, last normal was 30 minutes prior to code blue. Patient is unarousable on the ventilator, no cough, gag, pupil, or corneal responses nor is the patient over-breathing the ventilator. Patient was hypotensive upon arrival, notified Dr. Rosado of code blue and hypotension, received the order to start levophed and consult cardiology and pulmonology. Dr. Sanchez notified of consult, did not want to initiate hypothermia, no new orders received at this time. ABG was drawn, Dr. Gill notified of results and consult, received the order to give two amps of Bicarb and re-check ABG routine in the AM. [facility] called, referral number [id number], was told to call back if there were any neurological testing or patient deteriorates. Based on CXR, ETT was withdrawn from 24 at the lip to 22 at the lip, will verify placement on routine CXR. Daughter, Mónica, was at bedside, updated on patient status.
--- NOTE | 2018-09-10 05:36 | NUR ---
Patient triggered positive sepsis, Dr. Rosado ordered fluid bolus per protocol. Patient should receive 1650 mls according to ideal body weight formula.
[2018-09-10] MEDS ORDERED: IV NORMAL SALINE 1000ML BAG 1,000 ML IV ONE (05:45)
[2018-09-10] MEDS: PIPERACILLIN/TAZOBACTAM 2.25 GM in IV NORMAL SALINE 50ML 50 ML IV SCH ×2 (05:49→12:23)
--- NOTE | 2018-09-10 06:44 | RAD ---
Indication:VERIFY ETT TUBE PLACEMENT TECHNIQUE:Portable AP chest X-ray COMPARISON:Study from the same day earlier FINDINGS: ET tube is seen 2.1 cm from the level of windy. NG tube is seen with its tip in the distal stomach. Heart is normal in size. Diffuse haziness is seen in the right lung. No pneumothorax or pleural effusion. Visualized bony thorax within normal limits. IMPRESSION: 1. ET tube approximately 2 cm from the level of windy in acceptable position. 2. Diffuse haziness in the right lung likely infectious or interstitial edema. Electronically signed by: Davi Baez DO (09/10/2018 6:39 AM) [facility]
[2018-09-10] MEDS ORDERED: PANTOPRAZOLE IV PUSH 40 MG VIAL. IVP SCH (07:30)
[2018-09-10 07:47] LABS: BASE EXCESS ABG -7 mmol/L (-3-3); HCO3 ABG 17 mmol/L (21-28); PCO2 ABG 30 mmHg (35-46); PO2 ABG 112 mmHg (65-108); SAT O2 ABG 98 % (92-99)
[2018-09-10 07:51] LABS: FIO2 ABG 100
--- NOTE | 2018-09-10 08:35 | PDOC ---
Infectious Disease Note Subjective Subjective pt was coded, now on vent and vasopressors ROS ROS no n/v/d/sob Vital Sign Vital Signs Vital Signs Date Time Temp Pulse Resp B/P (MAP) Pulse Ox O2 Delivery O2 Flow Rate FiO2 09/10/18 07:22 100 Ventilator 09/10/18 07:00 100 20 106/52 (70) 09/10/18 02:45 98.5 98.5 09/09/18 23:00 6.0 Physical Exam PHYSICAL EXAM VITAL SIGNS: febrile on vent and vasopressors CONSTITUTIONAL: orally intubated on vent HEENT: Pupils equal and reactive. Normal conjunctivae. Oral cavity, pharynx clear. NECK: Supple, no JVD. LUNGS: Clear to auscultation. HEART: S1, S2. ABDOMEN: Soft, mildly distended. There is tenderness and there is no guarding, but there is mild rebound. EXTREMITIES: No clubbing or cyanosis. No gross edema. SKIN: Warm to touch without signs of rash. NEUROLOGIC: sedated on vent PSYCHIATRIC: sedated on vent Labs Lab Laboratory Tests Test 09/10/18 00:45 09/10/18 02:35 09/10/18 02:46 09/10/18 03:36 Lactic Acid Level 2.1 mmol/L (0.4-2.0) Glucose (Fingerstick) 164 mg/dL (70-99) White Blood Count 21.5 x10^3/uL (4.0-11.0) Red Blood Count 2.81 x10^6/uL (3.50-5.40) Hemoglobin 7.2 g/dL (12.0-15.5) Hematocrit 24.7 % (36.0-47.0) Mean Corpuscular Volume 88 fL (79-100) Mean Corpuscular Hemoglobin 26 pg (25-35) Mean Corpuscular Hemoglobin Concent 29 g/dL (31-37) Red Cell Distribution Width 19.8 % (11.5-14.5) Platelet Count 296 x10^3/uL (140-400) Neutrophils (%) (Auto) 82 % (31-73) Lymphocytes (%) (Auto) 13 % (24-48) Monocytes (%) (Auto) 5 % (0-9) Eosinophils (%) (Auto) 0 % (0-3) Basophils (%) (Auto) 1 % (0-3) Neutrophils # (Auto) 17.6 x10^3uL (1.8-7.7) Lymphocytes # (Auto) 2.7 x10^3/uL (1.0-4.8) Monocytes # (Auto) 1.1 x10^3/uL (0.0-1.1) Eosinophils # (Auto) 0.0 x10^3/uL (0.0-0.7) Basophils # (Auto) 0.1 x10^3/uL (0.0-0.2) Segmented Neutrophils % 64 % (35-66) Band Neutrophils % 21 % (0-9) Lymphocytes % 12 % (24-48) Monocytes % 2 % (0-10) Metamyelocytes % 1 % (0-0) Toxic Granulation Slight Platelet Estimate Adequate (ADEQUATE) Polychromasia Slight Hypochromasia Slight Anisocytosis Slight Sodium Level 134 mmol/L (136-145) Potassium Level 5.2 mmol/L (3.5-5.1) Chloride Level 97 mmol/L (98-107) Carbon Dioxide Level 20 mmol/L (21-32) Anion Gap 17 (6-14) Blood Urea Nitrogen 55 mg/dL (7-20) Creatinine 5.3 mg/dL (0.6-1.0) Estimated GFR (Cockcroft-Gault) 8.2 BUN/Creatinine Ratio 10 (6-20) Glucose Level 365 mg/dL (70-99) Calcium Level 7.9 mg/dL (8.5-10.1) Total Bilirubin 0.4 mg/dL (0.2-1.0) Aspartate Amino Transf (AST/SGOT) 278 U/L (15-37) Alanine Aminotransferase (ALT/SGPT) 98 U/L (14-59) Alkaline Phosphatase 80 U/L (46-116) Troponin I Quantitative 0.050 ng/mL (0.000-0.055) Total Protein 5.7 g/dL (6.4-8.2) Albumin 1.8 g/dL (3.4-5.0) Albumin/Globulin Ratio 0.5 (1.0-1.7) O2 Saturation 85 % (92-99) Arterial Blood pH 7.07 (7.35-7.45) Arterial Blood pCO2 at Patient Temp 39 mmHg (35-46) Arterial Blood pO2 at Patient Temp 72 mmHg (65-108) Arterial Blood HCO3 11 mmol/L (21-28) Arterial Blood Base Excess -18 mmol/L (-3-3) FiO2 100 Test 09/10/18 05:50 09/10/18 07:40 Lactic Acid Level 8.7 mmol/L (0.4-2.0) O2 Saturation 98 % (92-99) Arterial Blood pH 7.37 (7.35-7.45) Arterial Blood pCO2 at Patient Temp 30 mmHg (35-46) Arterial Blood pO2 at Patient Temp 112 mmHg (65-108) Arterial Blood HCO3 17 mmol/L (21-28) Arterial Blood Base Excess -7 mmol/L (-3-3) FiO2 100 Objective Assessment 1. Leukocytosis. 2. Abdominal pain. 3. Distended gallbladder. 4. Acute kidney injury. 5. Encephalopathy with hallucinations. 6. Urinary tract infection present on admission, 09/09/2018. 7. s/p Code blue 8. Lactic acidosis 9. Hypotension 10 Respiratory failure Plan Plan of Care d/c zyvox Zosyn add dapto F/u labs and cults TESS ONEILL MD Sep 10, 2018 08:35
[2018-09-10] MEDS ORDERED: DAPTOmycin (GENERIC) IVPB 430 MG in IV NORMAL SALINE 50ML 50 ML IV SCH (09:00)
[2018-09-10] MEDS: amLODIPine BESYLATE 10 MG TABLET PO SCH (09:00)
[2018-09-10] MEDS: LACTOBACILLUS RHAMNOSUS GG 1 CAPSULE. PO SCH (09:00)
[2018-09-10] MEDS: DULoxetine HCL 30 MG CAPSULE.DR PO SCH (09:00)
--- NOTE | 2018-09-10 09:00 | NUR ---
Pt without pupilary response, no corneal reflex, no cough or gag. She does not withdrawl to pain. Blood pressure maintained with levophed. Family at the bedside and physicians aware.
--- NOTE | 2018-09-10 09:29 | PDOC ---
SURGICAL PROGRESS NOTE Subjective Patient intubated and on ventilator sedated. Family at bedside Vital Signs Vital Signs Date Time Temp Pulse Resp B/P (MAP) Pulse Ox O2 Delivery O2 Flow Rate FiO2 09/10/18 09:11 100 Ventilator 09/10/18 07:00 100 20 106/52 (70) 09/10/18 02:45 98.5 98.5 09/09/18 23:00 6.0 I&O Intake and Output 09/10/18 07:00 Intake Total 2186 ml Output Total 130 ml Balance 2056 ml Intake Oral 0 ml IV Total 2186 ml Output Urine Total 130 ml # Voids 1 PATIENT HAS A SYLVESTER: Yes General: Other (intubated and sedated) Abdomen: Soft Labs Laboratory Tests Test 09/09/18 00:14 09/09/18 00:20 09/09/18 01:30 09/10/18 00:45 Bedside Urine HCG, Qualitative Hcg negative (Negative) Urine Collection Type Unknown Urine Color Yellow Urine Clarity Cloudy Urine pH 6.0 Urine Specific [place] 1.025 Urine Protein Negative mg/dL (NEG-TRACE) Urine Glucose (UA) >=1000 mg/dL (NEG) Urine Ketones (Stick) Negative mg/dL (NEG) Urine Blood Large (NEG) Urine Nitrite Positive (NEG) Urine Bilirubin Negative (NEG) Urine Urobilinogen Dipstick 0.2 mg/dL (0.2 mg/dL) Urine Leukocyte Esterase Moderate (NEG) Urine RBC Tntc /HPF (0-2) Urine WBC Tntc /HPF (0-4) Urine Squamous Epithelial Cells Many /LPF Urine Bacteria Many /HPF (0-FEW) White Blood Count 13.4 x10^3/uL (4.0-11.0) Red Blood Count 3.12 x10^6/uL (3.50-5.40) Hemoglobin 8.1 g/dL (12.0-15.5) Hematocrit 25.0 % (36.0-47.0) Mean Corpuscular Volume 80 fL (79-100) Mean Corpuscular Hemoglobin 26 pg (25-35) Mean Corpuscular Hemoglobin Concent 32 g/dL (31-37) Red Cell Distribution Width 19.1 % (11.5-14.5) Platelet Count 417 x10^3/uL (140-400) Neutrophils (%) (Auto) 79 % (31-73) Lymphocytes (%) (Auto) 10 % (24-48) Monocytes (%) (Auto) 11 % (0-9) Eosinophils (%) (Auto) 0 % (0-3) Basophils (%) (Auto) 1 % (0-3) Neutrophils # (Auto) 10.5 x10^3uL (1.8-7.7) Lymphocytes # (Auto) 1.3 x10^3/uL (1.0-4.8) Monocytes # (Auto) 1.4 x10^3/uL (0.0-1.1) Eosinophils # (Auto) 0.0 x10^3/uL (0.0-0.7) Basophils # (Auto) 0.1 x10^3/uL (0.0-0.2) Sodium Level 133 mmol/L (136-145) Potassium Level 3.9 mmol/L (3.5-5.1) Chloride Level 93 mmol/L (98-107) Carbon Dioxide Level 21 mmol/L (21-32) Anion Gap 19 (6-14) Blood Urea Nitrogen 50 mg/dL (7-20) Creatinine 4.9 mg/dL (0.6-1.0) Estimated GFR (Cockcroft-Gault) 9.0 BUN/Creatinine Ratio 10 (6-20) Glucose Level 148 mg/dL (70-99) Calcium Level 9.3 mg/dL (8.5-10.1) Total Bilirubin 0.5 mg/dL (0.2-1.0) Aspartate Amino Transf (AST/SGOT) 27 U/L (15-37) Alanine Aminotransferase (ALT/SGPT) 18 U/L (14-59) Alkaline Phosphatase 88 U/L (46-116) Total Protein 8.0 g/dL (6.4-8.2) Albumin 3.1 g/dL (3.4-5.0) Albumin/Globulin Ratio 0.6 (1.0-1.7) Lipase 146 U/L (73-393) Lactic Acid Level 2.1 mmol/L (0.4-2.0) Test 09/10/18 02:35 09/10/18 02:46 09/10/18 03:36 09/10/18 05:50 Glucose (Fingerstick) 164 mg/dL (70-99) White Blood Count 21.5 x10^3/uL (4.0-11.0) Red Blood Count 2.81 x10^6/uL (3.50-5.40) Hemoglobin 7.2 g/dL (12.0-15.5) Hematocrit 24.7 % (36.0-47.0) Mean Corpuscular Volume 88 fL (79-100) Mean Corpuscular Hemoglobin 26 pg (25-35) Mean Corpuscular Hemoglobin Concent 29 g/dL (31-37) Red Cell Distribution Width 19.8 % (11.5-14.5) Platelet Count 296 x10^3/uL (140-400) Neutrophils (%) (Auto) 82 % (31-73) Lymphocytes (%) (Auto) 13 % (24-48) Monocytes (%) (Auto) 5 % (0-9) Eosinophils (%) (Auto) 0 % (0-3) Basophils (%) (Auto) 1 % (0-3) Neutrophils # (Auto) 17.6 x10^3uL (1.8-7.7) Lymphocytes # (Auto) 2.7 x10^3/uL (1.0-4.8) Monocytes # (Auto) 1.1 x10^3/uL (0.0-1.1) Eosinophils # (Auto) 0.0 x10^3/uL (0.0-0.7) Basophils # (Auto) 0.1 x10^3/uL (0.0-0.2) Segmented Neutrophils % 64 % (35-66) Band Neutrophils % 21 % (0-9) Lymphocytes % 12 % (24-48) Monocytes % 2 % (0-10) Metamyelocytes % 1 % (0-0) Toxic Granulation Slight Platelet Estimate Adequate (ADEQUATE) Polychromasia Slight Hypochromasia Slight Anisocytosis Slight Sodium Level 134 mmol/L (136-145) Potassium Level 5.2 mmol/L (3.5-5.1) Chloride Level 97 mmol/L (98-107) Carbon Dioxide Level 20 mmol/L (21-32) Anion Gap 17 (6-14) Blood Urea Nitrogen 55 mg/dL (7-20) Creatinine 5.3 mg/dL (0.6-1.0) Estimated GFR (Cockcroft-Gault) 8.2 BUN/Creatinine Ratio 10 (6-20) Glucose Level 365 mg/dL (70-99) Calcium Level 7.9 mg/dL (8.5-10.1) Total Bilirubin 0.4 mg/dL (0.2-1.0) Aspartate Amino Transf (AST/SGOT) 278 U/L (15-37) Alanine Aminotransferase (ALT/SGPT) 98 U/L (14-59) Alkaline Phosphatase 80 U/L (46-116) Troponin I Quantitative 0.050 ng/mL (0.000-0.055) Total Protein 5.7 g/dL (6.4-8.2) Albumin 1.8 g/dL (3.4-5.0) Albumin/Globulin Ratio 0.5 (1.0-1.7) O2 Saturation 85 % (92-99) Arterial Blood pH 7.07 (7.35-7.45) Arterial Blood pCO2 at Patient Temp 39 mmHg (35-46) Arterial Blood pO2 at Patient Temp 72 mmHg (65-108) Arterial Blood HCO3 11 mmol/L (21-28) Arterial Blood Base Excess -18 mmol/L (-3-3) FiO2 100 Lactic Acid Level 8.7 mmol/L (0.4-2.0) Test 09/10/18 07:40 O2 Saturation 98 % (92-99) Arterial Blood pH 7.37 (7.35-7.45) Arterial Blood pCO2 at Patient Temp 30 mmHg (35-46) Arterial Blood pO2 at Patient Temp 112 mmHg (65-108) Arterial Blood HCO3 17 mmol/L (21-28) Arterial Blood Base Excess -7 mmol/L (-3-3) FiO2 100 Laboratory Tests Test 09/10/18 00:45 09/10/18 02:35 09/10/18 02:46 09/10/18 03:36 Lactic Acid Level 2.1 mmol/L (0.4-2.0) Glucose (Fingerstick) 164 mg/dL (70-99) White Blood Count 21.5 x10^3/uL (4.0-11.0) Red Blood Count 2.81 x10^6/uL (3.50-5.40) Hemoglobin 7.2 g/dL (12.0-15.5) Hematocrit 24.7 % (36.0-47.0) Mean Corpuscular Volume 88 fL (79-100) Mean Corpuscular Hemoglobin 26 pg (25-35) Mean Corpuscular Hemoglobin Concent 29 g/dL (31-37) Red Cell Distribution Width 19.8 % (11.5-14.5) Platelet Count 296 x10^3/uL (140-400) Neutrophils (%) (Auto) 82 % (31-73) Lymphocytes (%) (Auto) 13 % (24-48) Monocytes (%) (Auto) 5 % (0-9) Eosinophils (%) (Auto) 0 % (0-3) Basophils (%) (Auto) 1 % (0-3) Neutrophils # (Auto) 17.6 x10^3uL (1.8-7.7) Lymphocytes # (Auto) 2.7 x10^3/uL (1.0-4.8) Monocytes # (Auto) 1.1 x10^3/uL (0.0-1.1) Eosinophils # (Auto) 0.0 x10^3/uL (0.0-0.7) Basophils # (Auto) 0.1 x10^3/uL (0.0-0.2) Segmented Neutrophils % 64 % (35-66) Band Neutrophils % 21 % (0-9) Lymphocytes % 12 % (24-48) Monocytes % 2 % (0-10) Metamyelocytes % 1 % (0-0) Toxic Granulation Slight Platelet Estimate Adequate (ADEQUATE) Polychromasia Slight Hypochromasia Slight Anisocytosis Slight Sodium Level 134 mmol/L (136-145) Potassium Level 5.2 mmol/L (3.5-5.1) Chloride Level 97 mmol/L (98-107) Carbon Dioxide Level 20 mmol/L (21-32) Anion Gap 17 (6-14) Blood Urea Nitrogen 55 mg/dL (7-20) Creatinine 5.3 mg/dL (0.6-1.0) Estimated GFR (Cockcroft-Gault) 8.2 BUN/Creatinine Ratio 10 (6-20) Glucose Level 365 mg/dL (70-99) Calcium Level 7.9 mg/dL (8.5-10.1) Total Bilirubin 0.4 mg/dL (0.2-1.0) Aspartate Amino Transf (AST/SGOT) 278 U/L (15-37) Alanine Aminotransferase (ALT/SGPT) 98 U/L (14-59) Alkaline Phosphatase 80 U/L (46-116) Troponin I Quantitative 0.050 ng/mL (0.000-0.055) Total Protein 5.7 g/dL (6.4-8.2) Albumin 1.8 g/dL (3.4-5.0) Albumin/Globulin Ratio 0.5 (1.0-1.7) O2 Saturation 85 % (92-99) Arterial Blood pH 7.07 (7.35-7.45) Arterial Blood pCO2 at Patient Temp 39 mmHg (35-46) Arterial Blood pO2 at Patient Temp 72 mmHg (65-108) Arterial Blood HCO3 11 mmol/L (21-28) Arterial Blood Base Excess -18 mmol/L (-3-3) FiO2 100 Test 09/10/18 05:50 09/10/18 07:40 Lactic Acid Level 8.7 mmol/L (0.4-2.0) O2 Saturation 98 % (92-99) Arterial Blood pH 7.37 (7.35-7.45) Arterial Blood pCO2 at Patient Temp 30 mmHg (35-46) Arterial Blood pO2 at Patient Temp 112 mmHg (65-108) Arterial Blood HCO3 17 mmol/L (21-28) Arterial Blood Base Excess -7 mmol/L (-3-3) FiO2 100 Problem List Problems Medical Problems: (1) Abdominal pain Status: Acute (2) Acute on chronic kidney failure Status: Acute (3) Cardiac arrest Status: Acute (4) Urinary tract infection Status: Acute Assessment/Plan Multiple medical problems. HIDA scan does not show signs of acute cholecystitis. No surgical plans at this time. If he were to develop cholecystitis would most likely need cholecystostomy tube as opposed to open surgery WEI MONROE MD Sep 10, 2018 09:29
--- NOTE | 2018-09-10 10:28 | CONS ---
DATE OF CONSULTATION: ATTENDING PHYSICIAN: Dr. Hill. REASON FOR CONSULTATION: Respiratory failure, code blue. HISTORY OF PRESENT ILLNESS: The patient is a 63-year-old female who has history of alcohol abuse. Although she has been sober for last 30 days, she was recently discharged from [facility] to [facility] for rehab. She was brought into the hospital with reportedly increased drinking. She was confused and was having hallucinations. The patient had some reportedly abdominal pain as well. She underwent CT abdomen and pelvis, which showed acalculous gallbladder. There was pericholecystic fluid. HIDA scan was performed and it showed that bile duct was no longer visualized and it was not completely obstructed and they said partial obstruction cannot be excluded. Surgeon did not think it was a surgical belly. The patient had a code blue last night. She became acidotic and unresponsive and was in asystole. She had a brief code blue for about 5-6 minutes. She was intubated. I was called with an arterial blood gas results around 3:30 in the morning. She was very acidotic, pH of 7.07, pCO2 of 39, a pO2 72 on 100% FiO2 and bicarbonate was 11. At that time, I kept her on assist control settings, we gave 2 amps of bicarbonate. This morning, pH of 7.37, pCO2 of 30 and a pO2 of 112 and a bicarbonate of 17. She has CKD stage 4 and she is not making any urine. Her chest x-ray shows development of mild pulmonary edema. Her BUN is 55 and a creatinine of 5.3. She is on 30 mcg of Levophed. The family is at the bedside and I had a detailed discussion with her daughter, nieces and other family members. PAST MEDICAL HISTORY: History of hypertension, hyperlipidemia, CKD stage 4, depression, fibromyalgia. PAST SURGICAL HISTORY: Total knee replacement, tubal ligation. FAMILY HISTORY: Heart disease and hypertension. SOCIAL HISTORY: Heavy alcohol use and marijuana use. ALLERGIES: DIPHENHYDRAMINE, LEVOFLOXACIN, and MORPHINE. MEDICATIONS: Current medications were all reviewed, including daptomycin and Zosyn. PHYSICAL EXAMINATION: GENERAL: She is intubated. She is not sedated. She is having acidotic breathing. VITAL SIGNS: Blood pressure 106 systolic on 30 mcg of Levophed. Pupils are fixed and dilated. Pulse ox is 100%. NECK: Supple. LUNGS: With few rhonchi anteriorly. CARDIOVASCULAR: Regular rate. ABDOMEN: Soft. EXTREMITIES: With trace edema. LABORATORY DATA: Reviewed. BUN and creatinine 55 and 5.3. Lactic acid is 8.7. Albumin is 1.8. ABGs are discussed in my history of present illness. White cell count 21.5, hemoglobin 7.2 and platelets are 296. IMPRESSION: 1. Acute respiratory failure secondary to multifactorial etiologies including code blue with asystole, severe metabolic acidosis, [id number] kidney failure and likely septic shock. 2. History of alcohol abuse. Lipase is normal with no evidence of pancreatitis. 3. Marked lactic acidosis secondary to shock, likely septic. 4. Severe hypotension, requiring 30 mcg of Levophed, despite fluid resuscitation and likely related to septic shock. 5. Severe protein-calorie malnutrition. 6. Fixed dilated pupils. Need to rule out a central nervous system event contributing to her code blue. 7. Chronic kidney disease stage 4, now with barely any urine output. Will need dialysis if needs to survive. RECOMMENDATIONS: 1. Discussed with the patient and the daughter and all the family members. They are realistic about her prognosis. They felt that she did not want to be on dialysis on prior discussions. At this point, they are agreeable to make the decision on her behalf if CT head shows any worrisome findings. I will order CT head to rule out any ischemic event or hemorrhagic event. 2. Continue assist control mode with p.r.n. bicarbonate. 3. Renal recommendation and possible need for dialysis, although family may defer that. 4. Continue vasopressor. 5. Continue broad-spectrum antibiotics. 6. Follow lactic acid level. 7. Status post fluid resuscitation. 8. P.r.n. bicarbonate. 9. Further recommendations after review of CT head. As discussed above, family may pursue with a comfort care approach. At this time, they agree for DNR. Critical care time 40 minutes. LONG FOWLER MD DR: NADIRA/hal JOB#: [id number] / [id number]
--- NOTE | 2018-09-10 11:22 | RAD ---
CT of the head without contrast, 09/10/2018: HISTORY: Postcode evaluation Comparison is made to a study from 08/16/2018. Extensive patchy cerebral and cerebellar lucencies have developed. These lucencies involve the [place] and white matter as well as the basal ganglia bilaterally. There is effacement of the ventricles as well as the basilar cisterns. There is no shift of the midline structures. No focal intracranial hemorrhage is seen. IMPRESSION: Extensive patchy cerebral and cerebellar lucencies have developed with effacement of the ventricles, compatible with hypoxic-ischemic encephalopathy (anoxic brain injury). PQRS Compliance Statement: One or more of the following individualized dose reduction techniques were utilized for this examination: 1. Automated exposure control 2. Adjustment of the mA and/or kV according to patient size 3. Use of iterative reconstruction technique Electronically signed by: Russell Barrera MD (09/10/2018 11:19 AM) [facility]
--- NOTE | 2018-09-10 11:30 | PDOC2 ---
CARDIOLOGY CONSULT NOTE CURRENT MEDS: Current Medications Medications (Trade) Dose Ordered Sig/Taz Start Time Stop Time Status Last Admin Dose Admin Acetaminophen (Tylenol) 650 mg PRN Q6HRS PRN 09/09/18 08:45 09/09/18 23:33 650 MG Alprazolam (Xanax) 0.25 mg PRN TID PRN 09/09/18 08:45 09/09/18 09:28 0.25 MG Amlodipine Besylate (Norvasc) 10 mg DAILY 09/09/18 10:00 09/09/18 09:27 10 MG Ceftriaxone Sodium (Rocephin Im) 1 gm 1X ONCE 09/09/18 00:45 09/09/18 00:46 DC 09/09/18 02:05 1 GM Daptomycin 430 mg/ Sodium Chloride 50 ml @ 100 mls/hr Q48H 09/10/18 09:00 09/10/18 09:37 100 MLS/HR Duloxetine HCl (Cymbalta) 90 mg DAILY 09/09/18 10:00 09/09/18 09:27 90 MG Fentanyl Citrate (Fentanyl 2ml Vial) 50 mcg PRN Q2HR PRN 09/09/18 12:30 09/09/18 20:42 50 MCG Lactobacillus Rhamnosus (Culturelle) 1 cap BID 09/09/18 21:00 09/09/18 20:42 1 CAP Linezolid/Dextrose 300 ml @ 300 mls/hr Q12HR 09/09/18 10:00 09/10/18 08:37 DC 09/09/18 20:43 300 MLS/HR Metoclopramide HCl (Reglan Oral Solution) 5 mg PRN QID PRN 09/09/18 12:30 09/09/18 16:55 5 MG Midazolam HCl 100 ml @ 5 mls/hr CONT PRN 09/10/18 03:30 Norepinephrine Bitartrate 250 ml @ 1.875 mls/ hr CONT PRN 09/10/18 03:15 09/10/18 07:29 56.3 MLS/HR Ondansetron HCl (Zofran) 4 mg PRN Q6HRS PRN 09/09/18 08:45 Oxycodone HCl (Roxicodone) 5 mg PRN Q4HRS PRN 09/09/18 05:30 09/09/18 16:09 5 MG Pantoprazole Sodium (PROTONIX VIAL for IV PUSH) 40 mg DAILYAC 09/10/18 07:30 09/10/18 09:36 40 MG Pantoprazole Sodium (Protonix) 40 mg DAILYAC 09/09/18 10:00 09/09/18 12:28 DC 09/09/18 09:31 40 MG Piperacillin Sod/ Tazobactam Sod 2.25 gm/Sodium Chloride 50 ml @ 100 mls/hr Q6HRS 09/09/18 12:00 09/10/18 05:49 100 MLS/HR Sodium Bicarbonate (Sodium Bicarb Adult 8.4% Syr) 100 meq 1X ONCE 09/10/18 04:00 09/10/18 04:01 DC 09/10/18 04:04 100 MEQ Sodium Chloride 1,000 ml @ 1,000 mls/hr 1X ONCE 09/10/18 05:45 09/10/18 06:44 DC 09/10/18 05:48 1,000 MLS/HR Tramadol HCl (Ultram) 50 mg PRN Q6HRS PRN 09/09/18 05:30 09/09/18 05:42 50 MG Zolpidem Tartrate (Ambien) 5 mg PRN QHS PRN 09/09/18 08:45 09/09/18 20:42 5 MG ALLERGIES: Allergies Coded Allergies Type Severity Reaction Last Updated Verified levofloxacin Allergy Intermediate 08/19/18 Yes I S O L A T I O N *CONTACT* Allergy Unknown 08/19/18 Yes diphenhydramine HCl Adverse Reaction Intermediate "Jittery on the inside" 08/19 Yes morphine Adverse Reaction Intermediate BLACKOUT 08/19/18 Yes PHYSICAL EXAM: Vital Signs: Vital Signs Date Time Temp Pulse Resp B/P (MAP) Pulse Ox O2 Delivery O2 Flow Rate FiO2 09/10/18 09:11 100 Ventilator 09/10/18 09:00 107 20 113/62 (79) 09/10/18 08:00 98.3 98.3 09/09/18 23:00 6.0 I & O Intake and Output 09/10/18 07:00 Intake Total 2186 ml Output Total 130 ml Balance 2056 ml Intake Oral 0 ml IV Total 2186 ml Output Urine Total 130 ml # Voids 1 DIAGNOSTIC TESTING: Lab Laboratory Tests Test 09/10/18 00:45 09/10/18 02:35 09/10/18 02:46 09/10/18 03:36 Lactic Acid Level 2.1 mmol/L (0.4-2.0) H Glucose (Fingerstick) 164 mg/dL (70-99) H White Blood Count 21.5 x10^3/uL (4.0-11.0) H Red Blood Count 2.81 x10^6/uL (3.50-5.40) L Hemoglobin 7.2 g/dL (12.0-15.5) L Hematocrit 24.7 % (36.0-47.0) L Mean Corpuscular Volume 88 fL (79-100) # Mean Corpuscular Hemoglobin 26 pg (25-35) Mean Corpuscular Hemoglobin Concent 29 g/dL (31-37) L Red Cell Distribution Width 19.8 % (11.5-14.5) H Platelet Count 296 x10^3/uL (140-400) Neutrophils (%) (Auto) 82 % (31-73) H Lymphocytes (%) (Auto) 13 % (24-48) L Monocytes (%) (Auto) 5 % (0-9) Eosinophils (%) (Auto) 0 % (0-3) Basophils (%) (Auto) 1 % (0-3) Neutrophils # (Auto) 17.6 x10^3uL (1.8-7.7) H Lymphocytes # (Auto) 2.7 x10^3/uL (1.0-4.8) Monocytes # (Auto) 1.1 x10^3/uL (0.0-1.1) Eosinophils # (Auto) 0.0 x10^3/uL (0.0-0.7) Basophils # (Auto) 0.1 x10^3/uL (0.0-0.2) Segmented Neutrophils % 64 % (35-66) Band Neutrophils % 21 % (0-9) H Lymphocytes % 12 % (24-48) L Monocytes % 2 % (0-10) Metamyelocytes % 1 % (0-0) H Toxic Granulation Slight Platelet Estimate Adequate (ADEQUATE) Polychromasia Slight Hypochromasia Slight Anisocytosis Slight Sodium Level 134 mmol/L (136-145) L Potassium Level 5.2 mmol/L (3.5-5.1) H Chloride Level 97 mmol/L (98-107) L Carbon Dioxide Level 20 mmol/L (21-32) L Anion Gap 17 (6-14) H Blood Urea Nitrogen 55 mg/dL (7-20) H Creatinine 5.3 mg/dL (0.6-1.0) H Estimated GFR (Cockcroft-Gault) 8.2 BUN/Creatinine Ratio 10 (6-20) Glucose Level 365 mg/dL (70-99) H Calcium Level 7.9 mg/dL (8.5-10.1) L Total Bilirubin 0.4 mg/dL (0.2-1.0) Aspartate Amino Transf (AST/SGOT) 278 U/L (15-37) H Alkaline Phosphatase 80 U/L (46-116) Total Protein 5.7 g/dL (6.4-8.2) L Albumin 1.8 g/dL (3.4-5.0) L Albumin/Globulin Ratio 0.5 (1.0-1.7) L O2 Saturation 85 % (92-99) L Arterial Blood pH 7.07 (7.35-7.45) *L Arterial Blood pCO2 at Patient Temp 39 mmHg (35-46) Arterial Blood pO2 at Patient Temp 72 mmHg (65-108) Arterial Blood HCO3 11 mmol/L (21-28) L Arterial Blood Base Excess -18 mmol/L (-3-3) L FiO2 100 Test 09/10/18 05:50 09/10/18 07:40 Lactic Acid Level 8.7 mmol/L (0.4-2.0) *H O2 Saturation 98 % (92-99) Arterial Blood pH 7.37 (7.35-7.45) Arterial Blood pCO2 at Patient Temp 30 mmHg (35-46) L Arterial Blood pO2 at Patient Temp 112 mmHg (65-108) H Arterial Blood HCO3 17 mmol/L (21-28) L Arterial Blood Base Excess -7 mmol/L (-3-3) L FiO2 100 PLAN: Patient seen after admission to the ICU after initial asystolic cardiac arrest. Cardiology was asked to evaluate her for her cardiac arrest. Briefly 63-year-old woman without any prior cardiac history. Been admitted for mental status changes after recent stay at [facility]. Being evaluated for infectious process. She probably suffered a cardiac arrest with asystole and had severe metabolic derangements. On examination today she is nonresponsive. Heart tones are regular without any obvious murmurs. Initial troponin negative. Discussed with the family that we will await neurologic recovery before any further cardiac evaluation. Later this evening unfortunately the patient succumbed to her metabolic derangements and . RONNIE MENESES MD Sep 10, 2018 11:30
--- NOTE | 2018-09-10 11:46 | PDOC ---
PROGRESS NOTES History of Present Illness History of Present Illness Assessment/Plan Assessment/Plan Cardiac arrest on the Floor. 09/10 0300 Patient last seen 35 minutes prior to calling ruben lanier. acls protocal initiated by Nursing. er responded Patient had received 1 epi patient was intubated 7.5 cuffed ET tube. transferred to icu, pulm and cardiology consulted 09/10 Diffuse haziness in the right lung likely infectious or interstitial edema. 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 History of C. difficile- Sepsis POA etoh abuse hx Anxiety NOS Depression lactic acidosis PLAN: iv zosyn, daptomycin HIDA scan verifies CT findings GS following NO PLANS FOR SURGERY at this time Zyvox for VRE UTI consult ID Contact isolation supportive meds CIWA protocoL NEUROLOGY CONSULT, FAMILY CONSIDERING EEG VS COMFORT MEASURES PALLIATIVE CARE CONSULT FOR GOALS OF TREATMENT 37 MIN CC TIME Vitals Vitals Vital Signs Date Time Temp Pulse Resp B/P (MAP) Pulse Ox O2 Delivery O2 Flow Rate FiO2 09/10/18 11:32 95 Ventilator 09/10/18 09:00 107 20 113/62 (79) 09/10/18 08:00 98.3 98.3 09/09/18 23:00 6.0 Physical Exam Physical Exam VITAL SIGNS: febrile on vent and vasopressors CONSTITUTIONAL: orally intubated on vent HEENT: Pupils equal and reactive. Normal conjunctivae. Oral cavity, pharynx clear. NECK: Supple, no JVD. LUNGS: Clear to auscultation. HEART: S1, S2. ABDOMEN: Soft, mildly distended. There is tenderness and there is no guarding, but there is mild rebound. EXTREMITIES: No clubbing or cyanosis. No gross edema. SKIN: Warm to touch without signs of rash. NEUROLOGIC: sedated on vent PSYCHIATRIC: sedated on vent General: Other (intubated and sedated) Heart: Regular rate, Normal S1, Normal S2 Lungs: Clear Abdomen: Soft Extremities: No clubbing, No cyanosis, No edema, Normal pulses, No tenderness/ swelling Skin: No rashes, No breakdown, No significant lesion Labs LABS PROCEDURE: PORTABLE CHEST 1V Indication:VERIFY ETT TUBE PLACEMENT TECHNIQUE:Portable AP chest X-ray COMPARISON:Study from the same day earlier FINDINGS: ET tube is seen 2.1 cm from the level of windy. NG tube is seen with its tip in the distal stomach. Heart is normal in size. Diffuse haziness is seen in the right lung. No pneumothorax or pleural effusion. Visualized bony thorax within normal limits. IMPRESSION: 1. ET tube approximately 2 cm from the level of windy in acceptable position. 2. Diffuse haziness in the right lung likely infectious or interstitial edema. Electronically signed by: Davi Baez DO (09/10/2018 6:39 AM) [facility] Laboratory Tests Test 09/10/18 00:45 09/10/18 02:35 09/10/18 02:46 09/10/18 03:36 Lactic Acid Level 2.1 mmol/L (0.4-2.0) Glucose (Fingerstick) 164 mg/dL (70-99) White Blood Count 21.5 x10^3/uL (4.0-11.0) Red Blood Count 2.81 x10^6/uL (3.50-5.40) Hemoglobin 7.2 g/dL (12.0-15.5) Hematocrit 24.7 % (36.0-47.0) Mean Corpuscular Volume 88 fL (79-100) Mean Corpuscular Hemoglobin 26 pg (25-35) Mean Corpuscular Hemoglobin Concent 29 g/dL (31-37) Red Cell Distribution Width 19.8 % (11.5-14.5) Platelet Count 296 x10^3/uL (140-400) Neutrophils (%) (Auto) 82 % (31-73) Lymphocytes (%) (Auto) 13 % (24-48) Monocytes (%) (Auto) 5 % (0-9) Eosinophils (%) (Auto) 0 % (0-3) Basophils (%) (Auto) 1 % (0-3) Neutrophils # (Auto) 17.6 x10^3uL (1.8-7.7) Lymphocytes # (Auto) 2.7 x10^3/uL (1.0-4.8) Monocytes # (Auto) 1.1 x10^3/uL (0.0-1.1) Eosinophils # (Auto) 0.0 x10^3/uL (0.0-0.7) Basophils # (Auto) 0.1 x10^3/uL (0.0-0.2) Segmented Neutrophils % 64 % (35-66) Band Neutrophils % 21 % (0-9) Lymphocytes % 12 % (24-48) Monocytes % 2 % (0-10) Metamyelocytes % 1 % (0-0) Toxic Granulation Slight Platelet Estimate Adequate (ADEQUATE) Polychromasia Slight Hypochromasia Slight Anisocytosis Slight Sodium Level 134 mmol/L (136-145) Potassium Level 5.2 mmol/L (3.5-5.1) Chloride Level 97 mmol/L (98-107) Carbon Dioxide Level 20 mmol/L (21-32) Anion Gap 17 (6-14) Blood Urea Nitrogen 55 mg/dL (7-20) Creatinine 5.3 mg/dL (0.6-1.0) Estimated GFR (Cockcroft-Gault) 8.2 BUN/Creatinine Ratio 10 (6-20) Glucose Level 365 mg/dL (70-99) Calcium Level 7.9 mg/dL (8.5-10.1) Total Bilirubin 0.4 mg/dL (0.2-1.0) Aspartate Amino Transf (AST/SGOT) 278 U/L (15-37) Alanine Aminotransferase (ALT/SGPT) 98 U/L (14-59) Alkaline Phosphatase 80 U/L (46-116) Troponin I Quantitative 0.050 ng/mL (0.000-0.055) Total Protein 5.7 g/dL (6.4-8.2) Albumin 1.8 g/dL (3.4-5.0) Albumin/Globulin Ratio 0.5 (1.0-1.7) O2 Saturation 85 % (92-99) Arterial Blood pH 7.07 (7.35-7.45) Arterial Blood pCO2 at Patient Temp 39 mmHg (35-46) Arterial Blood pO2 at Patient Temp 72 mmHg (65-108) Arterial Blood HCO3 11 mmol/L (21-28) Arterial Blood Base Excess -18 mmol/L (-3-3) FiO2 100 Test 09/10/18 05:50 09/10/18 07:40 Lactic Acid Level 8.7 mmol/L (0.4-2.0) O2 Saturation 98 % (92-99) Arterial Blood pH 7.37 (7.35-7.45) Arterial Blood pCO2 at Patient Temp 30 mmHg (35-46) Arterial Blood pO2 at Patient Temp 112 mmHg (65-108) Arterial Blood HCO3 17 mmol/L (21-28) Arterial Blood Base Excess -7 mmol/L (-3-3) FiO2 100 Assessment and Plan Assessmemt and Plan Problems Medical Problems: (1) Abdominal pain Status: Acute (2) Acute on chronic kidney failure Status: Acute (3) Cardiac arrest Status: Acute (4) Urinary tract infection Status: Acute Comment Review of Relevant I have reviewed the following items blade (where applicable) has been applied. Labs Laboratory Tests Test 09/09/18 00:14 09/09/18 00:20 09/09/18 01:30 09/10/18 00:45 Bedside Urine HCG, Qualitative Hcg negative (Negative) Urine Collection Type Unknown Urine Color Yellow Urine Clarity Cloudy Urine pH 6.0 Urine Specific [place] 1.025 Urine Protein Negative mg/dL (NEG-TRACE) Urine Glucose (UA) >=1000 mg/dL (NEG) Urine Ketones (Stick) Negative mg/dL (NEG) Urine Blood Large (NEG) Urine Nitrite Positive (NEG) Urine Bilirubin Negative (NEG) Urine Urobilinogen Dipstick 0.2 mg/dL (0.2 mg/dL) Urine Leukocyte Esterase Moderate (NEG) Urine RBC Tntc /HPF (0-2) Urine WBC Tntc /HPF (0-4) Urine Squamous Epithelial Cells Many /LPF Urine Bacteria Many /HPF (0-FEW) White Blood Count 13.4 x10^3/uL (4.0-11.0) Red Blood Count 3.12 x10^6/uL (3.50-5.40) Hemoglobin 8.1 g/dL (12.0-15.5) Hematocrit 25.0 % (36.0-47.0) Mean Corpuscular Volume 80 fL (79-100) Mean Corpuscular Hemoglobin 26 pg (25-35) Mean Corpuscular Hemoglobin Concent 32 g/dL (31-37) Red Cell Distribution Width 19.1 % (11.5-14.5) Platelet Count 417 x10^3/uL (140-400) Neutrophils (%) (Auto) 79 % (31-73) Lymphocytes (%) (Auto) 10 % (24-48) Monocytes (%) (Auto) 11 % (0-9) Eosinophils (%) (Auto) 0 % (0-3) Basophils (%) (Auto) 1 % (0-3) Neutrophils # (Auto) 10.5 x10^3uL (1.8-7.7) Lymphocytes # (Auto) 1.3 x10^3/uL (1.0-4.8) Monocytes # (Auto) 1.4 x10^3/uL (0.0-1.1) Eosinophils # (Auto) 0.0 x10^3/uL (0.0-0.7) Basophils # (Auto) 0.1 x10^3/uL (0.0-0.2) Sodium Level 133 mmol/L (136-145) Potassium Level 3.9 mmol/L (3.5-5.1) Chloride Level 93 mmol/L (98-107) Carbon Dioxide Level 21 mmol/L (21-32) Anion Gap 19 (6-14) Blood Urea Nitrogen 50 mg/dL (7-20) Creatinine 4.9 mg/dL (0.6-1.0) Estimated GFR (Cockcroft-Gault) 9.0 BUN/Creatinine Ratio 10 (6-20) Glucose Level 148 mg/dL (70-99) Calcium Level 9.3 mg/dL (8.5-10.1) Total Bilirubin 0.5 mg/dL (0.2-1.0) Aspartate Amino Transf (AST/SGOT) 27 U/L (15-37) Alanine Aminotransferase (ALT/SGPT) 18 U/L (14-59) Alkaline Phosphatase 88 U/L (46-116) Total Protein 8.0 g/dL (6.4-8.2) Albumin 3.1 g/dL (3.4-5.0) Albumin/Globulin Ratio 0.6 (1.0-1.7) Lipase 146 U/L (73-393) Lactic Acid Level 2.1 mmol/L (0.4-2.0) Test 09/10/18 02:35 09/10/18 02:46 09/10/18 03:36 09/10/18 05:50 Glucose (Fingerstick) 164 mg/dL (70-99) White Blood Count 21.5 x10^3/uL (4.0-11.0) Red Blood Count 2.81 x10^6/uL (3.50-5.40) Hemoglobin 7.2 g/dL (12.0-15.5) Hematocrit 24.7 % (36.0-47.0) Mean Corpuscular Volume 88 fL (79-100) Mean Corpuscular Hemoglobin 26 pg (25-35) Mean Corpuscular Hemoglobin Concent 29 g/dL (31-37) Red Cell Distribution Width 19.8 % (11.5-14.5) Platelet Count 296 x10^3/uL (140-400) Neutrophils (%) (Auto) 82 % (31-73) Lymphocytes (%) (Auto) 13 % (24-48) Monocytes (%) (Auto) 5 % (0-9) Eosinophils (%) (Auto) 0 % (0-3) Basophils (%) (Auto) 1 % (0-3) Neutrophils # (Auto) 17.6 x10^3uL (1.8-7.7) Lymphocytes # (Auto) 2.7 x10^3/uL (1.0-4.8) Monocytes # (Auto) 1.1 x10^3/uL (0.0-1.1) Eosinophils # (Auto) 0.0 x10^3/uL (0.0-0.7) Basophils # (Auto) 0.1 x10^3/uL (0.0-0.2) Segmented Neutrophils % 64 % (35-66) Band Neutrophils % 21 % (0-9) Lymphocytes % 12 % (24-48) Monocytes % 2 % (0-10) Metamyelocytes % 1 % (0-0) Toxic Granulation Slight Platelet Estimate Adequate (ADEQUATE) Polychromasia Slight Hypochromasia Slight Anisocytosis Slight Sodium Level 134 mmol/L (136-145) Potassium Level 5.2 mmol/L (3.5-5.1) Chloride Level 97 mmol/L (98-107) Carbon Dioxide Level 20 mmol/L (21-32) Anion Gap 17 (6-14) Blood Urea Nitrogen 55 mg/dL (7-20) Creatinine 5.3 mg/dL (0.6-1.0) Estimated GFR (Cockcroft-Gault) 8.2 BUN/Creatinine Ratio 10 (6-20) Glucose Level 365 mg/dL (70-99) Calcium Level 7.9 mg/dL (8.5-10.1) Total Bilirubin 0.4 mg/dL (0.2-1.0) Aspartate Amino Transf (AST/SGOT) 278 U/L (15-37) Alanine Aminotransferase (ALT/SGPT) 98 U/L (14-59) Alkaline Phosphatase 80 U/L (46-116) Troponin I Quantitative 0.050 ng/mL (0.000-0.055) Total Protein 5.7 g/dL (6.4-8.2) Albumin 1.8 g/dL (3.4-5.0) Albumin/Globulin Ratio 0.5 (1.0-1.7) O2 Saturation 85 % (92-99) Arterial Blood pH 7.07 (7.35-7.45) Arterial Blood pCO2 at Patient Temp 39 mmHg (35-46) Arterial Blood pO2 at Patient Temp 72 mmHg (65-108) Arterial Blood HCO3 11 mmol/L (21-28) Arterial Blood Base Excess -18 mmol/L (-3-3) FiO2 100 Lactic Acid Level 8.7 mmol/L (0.4-2.0) Test 09/10/18 07:40 O2 Saturation 98 % (92-99) Arterial Blood pH 7.37 (7.35-7.45) Arterial Blood pCO2 at Patient Temp 30 mmHg (35-46) Arterial Blood pO2 at Patient Temp 112 mmHg (65-108) Arterial Blood HCO3 17 mmol/L (21-28) Arterial Blood Base Excess -7 mmol/L (-3-3) FiO2 100 Laboratory Tests Test 09/10/18 00:45 09/10/18 02:35 09/10/18 02:46 09/10/18 03:36 Lactic Acid Level 2.1 mmol/L (0.4-2.0) Glucose (Fingerstick) 164 mg/dL (70-99) White Blood Count 21.5 x10^3/uL (4.0-11.0) Red Blood Count 2.81 x10^6/uL (3.50-5.40) Hemoglobin 7.2 g/dL (12.0-15.5) Hematocrit 24.7 % (36.0-47.0) Mean Corpuscular Volume 88 fL (79-100) Mean Corpuscular Hemoglobin 26 pg (25-35) Mean Corpuscular Hemoglobin Concent 29 g/dL (31-37) Red Cell Distribution Width 19.8 % (11.5-14.5) Platelet Count 296 x10^3/uL (140-400) Neutrophils (%) (Auto) 82 % (31-73) Lymphocytes (%) (Auto) 13 % (24-48) Monocytes (%) (Auto) 5 % (0-9) Eosinophils (%) (Auto) 0 % (0-3) Basophils (%) (Auto) 1 % (0-3) Neutrophils # (Auto) 17.6 x10^3uL (1.8-7.7) Lymphocytes # (Auto) 2.7 x10^3/uL (1.0-4.8) Monocytes # (Auto) 1.1 x10^3/uL (0.0-1.1) Eosinophils # (Auto) 0.0 x10^3/uL (0.0-0.7) Basophils # (Auto) 0.1 x10^3/uL (0.0-0.2) Segmented Neutrophils % 64 % (35-66) Band Neutrophils % 21 % (0-9) Lymphocytes % 12 % (24-48) Monocytes % 2 % (0-10) Metamyelocytes % 1 % (0-0) Toxic Granulation Slight Platelet Estimate Adequate (ADEQUATE) Polychromasia Slight Hypochromasia Slight Anisocytosis Slight Sodium Level 134 mmol/L (136-145) Potassium Level 5.2 mmol/L (3.5-5.1) Chloride Level 97 mmol/L (98-107) Carbon Dioxide Level 20 mmol/L (21-32) Anion Gap 17 (6-14) Blood Urea Nitrogen 55 mg/dL (7-20) Creatinine 5.3 mg/dL (0.6-1.0) Estimated GFR (Cockcroft-Gault) 8.2 BUN/Creatinine Ratio 10 (6-20) Glucose Level 365 mg/dL (70-99) Calcium Level 7.9 mg/dL (8.5-10.1) Total Bilirubin 0.4 mg/dL (0.2-1.0) Aspartate Amino Transf (AST/SGOT) 278 U/L (15-37) Alanine Aminotransferase (ALT/SGPT) 98 U/L (14-59) Alkaline Phosphatase 80 U/L (46-116) Troponin I Quantitative 0.050 ng/mL (0.000-0.055) Total Protein 5.7 g/dL (6.4-8.2) Albumin 1.8 g/dL (3.4-5.0) Albumin/Globulin Ratio 0.5 (1.0-1.7) O2 Saturation 85 % (92-99) Arterial Blood pH 7.07 (7.35-7.45) Arterial Blood pCO2 at Patient Temp 39 mmHg (35-46) Arterial Blood pO2 at Patient Temp 72 mmHg (65-108) Arterial Blood HCO3 11 mmol/L (21-28) Arterial Blood Base Excess -18 mmol/L (-3-3) FiO2 100 Test 09/10/18 05:50 09/10/18 07:40 Lactic Acid Level 8.7 mmol/L (0.4-2.0) O2 Saturation 98 % (92-99) Arterial Blood pH 7.37 (7.35-7.45) Arterial Blood pCO2 at Patient Temp 30 mmHg (35-46) Arterial Blood pO2 at Patient Temp 112 mmHg (65-108) Arterial Blood HCO3 17 mmol/L (21-28) Arterial Blood Base Excess -7 mmol/L (-3-3) FiO2 100 Medications Current Medications Ceftriaxone Sodium (Rocephin Im) 1 gm 1X ONCE IM Last administered on at 02:05; Start 09/09/18 at 00:45; Stop 09/09/18 at 00:46; Status DC Sodium Chloride 1,000 ml @ 1,000 mls/hr 1X ONCE IV Last administered on at 02:04; Start 09/09/18 at 01:45; Stop 09/09/18 at 02:44; Status DC Ondansetron HCl (Zofran) 4 mg 1X ONCE IV Last administered on 09/09/18at 01:45 ; Start 09/09/18 at 01:45; Stop 09/09/18 at 01:46; Status DC Sodium Chloride 1,000 ml @ 1,000 mls/hr 1X ONCE IV Last administered on at 03:00; Start 09/09/18 at 03:00; Stop 09/09/18 at 03:59; Status DC Ondansetron HCl (Zofran) 4 mg PRN Q8HRS PRN IV NAUSEA/VOMITING Last administered on 09/09/18 07:55; Start 09/09/18 at 03:00; Stop 09/09/18 at 08:37 ; Status DC Tramadol HCl (Ultram) 50 mg PRN Q6HRS PRN PO MILD PAIN Last administered on 05:42; Start 09/09/18 at 05:30 Oxycodone HCl (Roxicodone) 5 mg PRN Q4HRS PRN PO MODERATE - SEVERE PAIN Last administered on 09/09/18 16:09; Start 09/09/18 at 05:30 Ondansetron HCl (Zofran) 4 mg PRN Q6HRS PRN IV NAUSEA/VOMITING; Start 09/09/18 at 08:45 Linezolid/Dextrose 300 ml @ 300 mls/hr Q12HR IV Last administered on 20:43; Start 09/09/18 at 10:00; Stop 09/10/18 at 08:37; Status DC Acetaminophen (Tylenol) 650 mg PRN Q6HRS PRN PO Headaches, Temp > 101.5F Last administered on 09/09/18 23:33; Start 09/09/18 at 08:45 Alprazolam (Xanax) 0.25 mg PRN TID PRN PO ANXIETY / AGITATION, 1ST CHOIC Last administered on 09/09/18 09:28; Start 09/09/18 at 08:45 Amlodipine Besylate (Norvasc) 10 mg DAILY PO Last administered on 09/09/18 09: 27; Start 09/09/18 at 10:00 Duloxetine HCl (Cymbalta) 90 mg DAILY PO Last administered on 09/09/18 09:27; Start 09/09/18 at 10:00 Metoclopramide HCl (Reglan Oral Solution) 5 mg TIDACHC PO ; Start 09/09/18 at 11 :30; Stop 09/09/18 at 12:28; Status DC Pantoprazole Sodium (Protonix) 40 mg DAILYAC PO Last administered on 09/09/18 09:31; Start 09/09/18 at 10:00; Stop 09/09/18 at 12:28; Status DC Zolpidem Tartrate (Ambien) 5 mg PRN QHS PRN PO INSOMNIA Last administered on 20:42; Start 09/09/18 at 08:45 Fentanyl Citrate (Fentanyl 2ml Vial) 25 mcg PRN Q2HR PRN IV PAIN Last administered on 09/09/18 09:28; Start 09/09/18 at 08:45; Stop 09/09/18 at 12:21 ; Status DC Piperacillin Sod/ Tazobactam Sod 2.25 gm/Sodium Chloride 50 ml @ 100 mls/hr Q6HRS IV Last administered on 09/10/18 05:49; Start 09/09/18 at 12:00 Sodium Chloride 1,000 ml @ 100 mls/hr Q10H IV Last administered on 09/10/18 05:50; Start 09/09/18 at 11:30 Fentanyl Citrate (Fentanyl 2ml Vial) 50 mcg PRN Q2HR PRN IV PAIN Last administered on 09/09/18 20:42; Start 09/09/18 at 12:30 Metoclopramide HCl (Reglan Oral Solution) 5 mg PRN QID PRN PO emesis Last administered on 09/09/18 16:55; Start 09/09/18 at 12:30 Pantoprazole Sodium (PROTONIX VIAL for IV PUSH) 40 mg DAILYAC IVP Last administered on 09/10/18 09:36; Start 09/10/18 at 07:30 Lactobacillus Rhamnosus (Culturelle) 1 cap BID PO Last administered on 20:42; Start 09/09/18 at 21:00 Norepinephrine Bitartrate 250 ml @ 1.875 mls/ hr CONT PRN IV SEE I/O RECORD Last administered on 09/10/18 07:29; Start 09/10/18 at 03:15 Midazolam HCl 100 ml @ 5 mls/hr CONT PRN IV SEE I/O RECORD; Start 09/10/18 at 03:30 Sodium Bicarbonate (Sodium Bicarb Adult 8.4% Syr) 100 meq 1X ONCE IV Last administered on 09/10/18 04:04; Start 09/10/18 at 04:00; Stop 09/10/18 at 04:01 ; Status DC Sodium Chloride 1,000 ml @ 1,000 mls/hr 1X ONCE IV Last administered on 05:48; Start 09/10/18 at 05:45; Stop 09/10/18 at 06:44; Status DC Daptomycin 430 mg/ Sodium Chloride 50 ml @ 100 mls/hr Q48H IV Last administered on 09/10/18at 09:37; Start 09/10/18 at 09:00 Active Scripts Active Metoclopramide Hcl 10 Mg/10 Ml Solution 10 Mg PO TIDACHC 30 Days Alprazolam 0.25 Mg Tablet 0.25 Mg PO PRN TID PRN 30 Days Tylenol (Acetaminophen) 325 Mg Tablet 650 Mg PO PRN Q6HRS PRN 30 Days Cymbalta (Duloxetine Hcl) 30 Mg Capsule.dr 90 Mg PO DAILY 30 Days Reported Oxycodone Hcl Immed.release (Oxycodone Hcl) 10 Mg Tablet 10 Mg PO PRN Q6HRS PRN Reglan (Metoclopramide Hcl) 10 Mg Tablet 1 Tab PO QID Amlodipine Besylate 10 Mg Tablet 10 Mg PO DAILY Nexium Capsule (Esomeprazole Magnesium) 40 Mg Capsule. 1 Cap PO DAILY Vitals/I & O Vital Sign - Last 24 Hours 09/09/18 09/09/18 09/09/18 09/09/18 12:28 12:28 16:00 16:09 Temp 99.3 99.3 Pulse 101 Resp 16 B/P (MAP) 136/67 (90) Pulse Ox 90 90 O2 Delivery Nasal Cannula Nasal Cannula Nasal Cannula O2 Flow Rate 2.0 0.5 2.0 09/09/18 09/09/18 09/09/18 09/09/18 16:10 16:56 19:00 20:42 Temp 100.8 100.8 Pulse 102 Resp 18 17 B/P (MAP) 116/72 (87) Pulse Ox 93 90 O2 Delivery Nasal Cannula Nasal Cannula Simple Mask O2 Flow Rate 2.0 2.0 6.0 2.0 09/09/18 09/09/18 09/10/18 09/10/18 21:12 23:00 02:45 02:45 Temp 101.9 98.5 101.9 98.5 Pulse 99 66 Resp 20 18 20 B/P (MAP) 115/79 (91) 53/37 (42) Pulse Ox 92 90 O2 Delivery Simple Mask Simple Mask Ventilator Ventilator O2 Flow Rate 4.0 6.0 09/10/18 09/10/18 09/10/1813/19 03:00 03:15 03:30 03:45 Pulse 70 66 74 82 Resp 20 20 20 20 B/P (MAP) 42/35 (37) 49/33 (38) 59/40 (46) 72/49 (57) Pulse Ox 85 86 86 92 O2 Delivery Ventilator Ventilator Ventilator Ventilator 09/10/18 09/10/18 09/10/18 09/10/18 03:56 04:00 04:00 04:15 Pulse 86 93 Resp 20 20 B/P (MAP) 79/52 (61) 89/56 (67) Pulse Ox 86 99 99 O2 Delivery Ventilator Mechanical Ventilator Ventilator Ventilator 09/10/18 09/10/18 09/10/18 09/10/18 04:30 04:45 05:00 05:45 Pulse 92 92 91 Resp 20 20 20 B/P (MAP) 89/62 (71) 102/57 (72) 97/62 (74) Pulse Ox 100 100 100 100 O2 Delivery Ventilator Ventilator Ventilator Ventilator 09/10/18 09/10/18 09/10/18 09/10/18 06:00 07:00 07:22 07:45 Pulse 96 100 Resp 20 20 B/P (MAP) 97/54 (68) 106/52 (70) Pulse Ox 100 100 100 O2 Delivery Ventilator Ventilator Ventilator Mechanical Ventilator 09/10/18 09/10/18 09/10/18 09/10/18 08:00 09:00 09:11 11:32 Temp 98.3 98.3 Pulse 104 107 Resp 21 20 B/P (MAP) 102/68 (79) 113/62 (79) Pulse Ox 100 100 100 95 O2 Delivery Ventilator Ventilator Ventilator Ventilator Intake and Output 09/09/18 09/09/18 09/10/18 14:59 22:59 06:59 Intake Total 350 ml 50 ml 1786 ml Output Total 130 ml Balance 350 ml 50 ml 1656 ml WEI COLLINS MD Sep 10, 2018 11:46
--- NOTE | 2018-09-10 12:13 | PDOC ---
Renal-Progress Notes Subjective Notes Notes INTUBATED History of Present Illness Hx of present illness ON VENT Vitals Vitals Vital Signs Date Time Temp Pulse Resp B/P (MAP) Pulse Ox O2 Delivery O2 Flow Rate FiO2 09/10/18 11:32 95 Ventilator 09/10/18 09:00 107 20 113/62 (79) 09/10/18 08:00 98.3 98.3 09/09/18 23:00 6.0 Weight Weight [ ] I.O. Intake and Output Intake and Output 09/10/18 06:59 Intake Total 2186 ml Output Total 130 ml Balance 2056 ml Intake Oral 0 ml IV Total 2186 ml Output Urine Total 130 ml # Voids 1 Labs Labs Laboratory Tests Test 09/10/18 00:45 09/10/18 02:35 09/10/18 02:46 09/10/18 03:36 Lactic Acid Level 2.1 mmol/L (0.4-2.0) Glucose (Fingerstick) 164 mg/dL (70-99) White Blood Count 21.5 x10^3/uL (4.0-11.0) Red Blood Count 2.81 x10^6/uL (3.50-5.40) Hemoglobin 7.2 g/dL (12.0-15.5) Hematocrit 24.7 % (36.0-47.0) Mean Corpuscular Volume 88 fL (79-100) Mean Corpuscular Hemoglobin 26 pg (25-35) Mean Corpuscular Hemoglobin Concent 29 g/dL (31-37) Red Cell Distribution Width 19.8 % (11.5-14.5) Platelet Count 296 x10^3/uL (140-400) Neutrophils (%) (Auto) 82 % (31-73) Lymphocytes (%) (Auto) 13 % (24-48) Monocytes (%) (Auto) 5 % (0-9) Eosinophils (%) (Auto) 0 % (0-3) Basophils (%) (Auto) 1 % (0-3) Neutrophils # (Auto) 17.6 x10^3uL (1.8-7.7) Lymphocytes # (Auto) 2.7 x10^3/uL (1.0-4.8) Monocytes # (Auto) 1.1 x10^3/uL (0.0-1.1) Eosinophils # (Auto) 0.0 x10^3/uL (0.0-0.7) Basophils # (Auto) 0.1 x10^3/uL (0.0-0.2) Segmented Neutrophils % 64 % (35-66) Band Neutrophils % 21 % (0-9) Lymphocytes % 12 % (24-48) Monocytes % 2 % (0-10) Metamyelocytes % 1 % (0-0) Toxic Granulation Slight Platelet Estimate Adequate (ADEQUATE) Polychromasia Slight Hypochromasia Slight Anisocytosis Slight Sodium Level 134 mmol/L (136-145) Potassium Level 5.2 mmol/L (3.5-5.1) Chloride Level 97 mmol/L (98-107) Carbon Dioxide Level 20 mmol/L (21-32) Anion Gap 17 (6-14) Blood Urea Nitrogen 55 mg/dL (7-20) Creatinine 5.3 mg/dL (0.6-1.0) Estimated GFR (Cockcroft-Gault) 8.2 BUN/Creatinine Ratio 10 (6-20) Glucose Level 365 mg/dL (70-99) Calcium Level 7.9 mg/dL (8.5-10.1) Total Bilirubin 0.4 mg/dL (0.2-1.0) Aspartate Amino Transf (AST/SGOT) 278 U/L (15-37) Alanine Aminotransferase (ALT/SGPT) 98 U/L (14-59) Alkaline Phosphatase 80 U/L (46-116) Troponin I Quantitative 0.050 ng/mL (0.000-0.055) Total Protein 5.7 g/dL (6.4-8.2) Albumin 1.8 g/dL (3.4-5.0) Albumin/Globulin Ratio 0.5 (1.0-1.7) O2 Saturation 85 % (92-99) Arterial Blood pH 7.07 (7.35-7.45) Arterial Blood pCO2 at Patient Temp 39 mmHg (35-46) Arterial Blood pO2 at Patient Temp 72 mmHg (65-108) Arterial Blood HCO3 11 mmol/L (21-28) Arterial Blood Base Excess -18 mmol/L (-3-3) FiO2 100 Test 09/10/18 05:50 09/10/18 07:40 Lactic Acid Level 8.7 mmol/L (0.4-2.0) O2 Saturation 98 % (92-99) Arterial Blood pH 7.37 (7.35-7.45) Arterial Blood pCO2 at Patient Temp 30 mmHg (35-46) Arterial Blood pO2 at Patient Temp 112 mmHg (65-108) Arterial Blood HCO3 17 mmol/L (21-28) Arterial Blood Base Excess -7 mmol/L (-3-3) FiO2 100 Physical Exam General Appearance: other (SEDATED) Respiratory: decreased breath sounds Heart: S1S2, RRR Abdomen: soft, bowel sounds present Genitourinary: bladder flat Extremities: pulses present Neurology: other (SEDATE, PUPILS ARE DILATED AND FIXED) Assessment Assessment IMP S/P CODE BLUE ACUTE RESP FAILURE ANOXIC ENCEPHALOPATHY GILES-CR WORSE FROM YESTERDAY AND ANURIA NOW CKD STAGE 4 WITH CR OF 2.5 AT BASELINE DEHYDRATION MET ENCEPHALOPATHY NEUROGENIC BLADDER DM II HTN LEUCOCYTOSIS ANEMIA ETOH ABUSE HX PLAN HYDRATION PRESSORS ANTIBIOTICS SYLVESTER ARANESP VERY POOR PROGNOSIS PT APPARENTLY DID NOT EVER WANT DIALYSIS UPDATED FAMILY SUGGEST PALLIATIVE CARE, WITHDRAWAL AND COMFORT CARE ANSWERED FAMILY QUESTIONS-EXPLAINED THAT SHE WOULD NOT TOLERATE DIALYSIS CT HEAD TODAY D/W DR FOWLER HE AGREES WITH CONSERVATIVE CARE DESIREE HERNANDEZ MD Sep 10, 2018 12:12
--- NOTE | 2018-09-10 12:25 | PDOC2 ---
PALLIATIVE CARE Palliative Care Note Palliative Care Consult requested by Dr. Rosado to address goals of care. Medical Assessment per medical record S/P CODE BLUE ACUTE RESP FAILURE ANOXIC ENCEPHALOPATHY GILES-CR WORSE FROM YESTERDAY AND ANURIA NOW CKD STAGE 4 WITH CR OF 2.5 AT BASELINE DEHYDRATION MET ENCEPHALOPATHY NEUROGENIC BLADDER DM II HTN LEUCOCYTOSIS ANEMIA ETOH ABUSE HX Patient on Vent. Neurological consult pending. Family Meeting at 1530 Spoke with family along with Dr. Gill. Family wishes to withdraw life support after a youth ministry director has given her sacrament of the sick and other family has been here. CAROLYN SESAY Sep 10, 2018 12:25
--- NOTE | 2018-09-10 12:30 | NUR ---
Update called to [facility] on pt status. Instructed to call if pt loses the ability to over breathe the vent and if the decision to move to comfort care or call before extubation.
--- NOTE | 2018-09-10 13:33 | NUR ---
SS following up with discharge planning. Palliative Care Consulted. Family meeting at 1530. Pt currently on the Vent. SS will continue to follow for discharge planning.
--- NOTE | 2018-09-10 14:45 | NUR ---
Cliff with [facility] updated that the family has decided to transition to comfort care and would like to extubate later today.
--- NOTE | 2018-09-10 15:00 | NUR ---
Family decided they wanted no further testing and would like the pressors stopped and pt extubated after the rest of the family and carbonation equipment operator have arrived.
--- NOTE | 2018-09-10 15:05 | NUR ---
Pt extubated at this time. Family at bedside Addendum: 09/10/18 at 1811 by KIMBERLEY LEWIS RN actual time was 1705 not 1505
[2018-09-10] MEDS ORDERED: VASOPRESSIN 40 UNIT in IV DEXTROSE 5% 100ML 100 ML IV PRN (15:15)
--- NOTE | 2018-09-10 16:12 | PDOC2 ---
NEUROLOGY CONSULT Date of Admission Date of Admission DATE: 09/10/18 TIME: 15:38 Reason for Consult Reason for Consult: IMPRESSION: Near brain . Anoxia encephalopathy. Metabolic encephalopathy. S/p cardiac arrest, asystole, downtime unknown. Respiratory failure. Lactic acidosis. Leukocytosis. Sepsis. Renal failure. Multi-organ failure. CKD 4. Hepatic injury. . HTN. DM. Cholecystitis. UTI. ETOH abuse, Hx. No possibility of meaningful recover. RECOMMENDATIONS/PLAN: EEG, family declined it. Brain perfusion study on plan. Continue current life support at the present time per family. Consulted Palliative Care team. Discussed in a great detail with her daughter, son and other family members at bedside in ICU. HCT on 09/10/18: In consistent with severe cerebral edema. HISTORY OF THE PRESENT ILLNESS: This is a 63 -year-old female patient with history of ETOH use/abuse. She was not feeling well for a couple of days but declined family's adverse not seek medical attention until 09/09/18. Her symptoms continued worse and she was eventually brought by her family to the ER of [facility] for the evaluation of altered mental status. Family members state over the last 2 days patient has been hallucinating, mental status changes, right upper quadrant abdominal discomfort associated with nausea, and dysuria. Per ICU nurse, she was noted unresponsive about 2:28 am on 09/10/18 and was found asystole. Resuscitation was performed on the floor then transferred to ICU. Past Medical History Cardiovascular: HTN, Hyperlipidemia Pulmonary: No pertinent hx GI: GERD, Other Heme/Onc: Anemia NOS Hepatobiliary: Other Psych: Anxiety, Depression Rheumatologic: Fibromyalgia Infectious disease: No pertinent hx, Other Renal/: Chronic renal insuff, Other Past Surgical History Total knee replacement, Tubal Ligation. Family History Heart Disease, Hypertension Allergies Coded Allergies: levofloxacin (Verified Allergy, Intermediate, 08/19/18) TOLERATES CIPRO I S O L A T I O N *CONTACT* (Verified Allergy, Unknown, 08/19/18) mrsa, chronic C.diff diphenhydramine HCl (Verified Adverse Reaction, Intermediate, "Jittery on the inside", 08/19/18) morphine (Verified Adverse Reaction, Intermediate, BLACKOUT, 08/19/18) REPORTS WHEN GIVEN IV MORPHINE SHE BLACKS OUT. NO ADVERSE REACTION TO ORAL OR IM MEDICATIONS: Refer to MAR SOCIAL HISTORY: Lives at home. Recent in [facility] discharged to go home a week ago. Denies current smoking. She used marijuana. She drinks alcohol heavily for years. REVIEW OF SYSTEMS: Constitutional: No cachexia. Head: No traumatic brain or head injury. Skin: No edema, or rash. Ear: No infection. Eyes: No vision loss or color blindness. Nose: No bleeding or purulent discharges. Hearing: No hearing decrease. Neck: No injury. Breast: No history of cancer, masses,or discharges. Cardiac: HTN. Pulmonary: No COPD. GI: Cholecystitis. Urinary/genital: UTIs. Endocrinologic: No cousin face, craniofacial dysmorphism, polydactyly. Skeletomuscular: Generalized weakness. Neurological: see HP. Psychiatric: Alcohol use/abuse. Otherwise, not [id number] review of systems. PHYSICAL EXAMINATION: General appearance is in deep coma. HEENT: Normocephalic and nontraumatic. Nose, ears, and throat are unremarkable. Neck is supple. No lymphadenopathy. No crepitus. Cardiovascular: S1, S2.. Pulmonary: On vent. Abdomen: Bowel sounds are not appreciated. Extremities: No rash.. NEUROLOGICAL EXAMINATION: On vent. In deep coma. Not oriented to time, place and person. Right pupil 3 mm non reactive. Left pupil 2 minimal reactive to strong light stimuli. EOMI not elicited. No Doll's sign elicited. Corneal reflex not exist. No gag reflex. No cough reflex. CN: no response to exam.. Muscle tone: Decreased. Muscle strength: 0 DTR: 0 Plantar reflex: No response bilaterally Gait: Not able to walk. Sensory exam: no response to pain stimuli. Not able to access cerebellar signs. F-T-N test not performed due to in coma. Current Medications Current Medications Current Medications Ceftriaxone Sodium (Rocephin Im) 1 gm 1X ONCE IM Last administered on at 02:05; Start 09/09/18 at 00:45; Stop 09/09/18 at 00:46; Status DC Sodium Chloride 1,000 ml @ 1,000 mls/hr 1X ONCE IV Last administered on at 02:04; Start 09/09/18 at 01:45; Stop 09/09/18 at 02:44; Status DC Ondansetron HCl (Zofran) 4 mg 1X ONCE IV Last administered on 09/09/18 01:45 ; Start 09/09/18 at 01:45; Stop 09/09/18 at 01:46; Status DC Sodium Chloride 1,000 ml @ 1,000 mls/hr 1X ONCE IV Last administered on 03:00; Start 09/09/18 at 03:00; Stop 09/09/18 at 03:59; Status DC Ondansetron HCl (Zofran) 4 mg PRN Q8HRS PRN IV NAUSEA/VOMITING Last administered on 09/09/18 07:55; Start 09/09/18 at 03:00; Stop 09/09/18 at 08:37 ; Status DC Tramadol HCl (Ultram) 50 mg PRN Q6HRS PRN PO MILD PAIN Last administered on 05:42; Start 09/09/18 at 05:30 Oxycodone HCl (Roxicodone) 5 mg PRN Q4HRS PRN PO MODERATE - SEVERE PAIN Last administered on 09/09/18 16:09; Start 09/09/18 at 05:30 Ondansetron HCl (Zofran) 4 mg PRN Q6HRS PRN IV NAUSEA/VOMITING; Start 09/09/18 at 08:45 Linezolid/Dextrose 300 ml @ 300 mls/hr Q12HR IV Last administered on 20:43; Start 09/09/18 at 10:00; Stop 09/10/18 at 08:37; Status DC Acetaminophen (Tylenol) 650 mg PRN Q6HRS PRN PO Headaches, Temp > 101.5F Last administered on 09/09/18 23:33; Start 09/09/18 at 08:45 Alprazolam (Xanax) 0.25 mg PRN TID PRN PO ANXIETY / AGITATION, 1ST CHOIC Last administered on 09/09/18 09:28; Start 09/09/18 at 08:45 Amlodipine Besylate (Norvasc) 10 mg DAILY PO Last administered on 09/09/18 09: 27; Start 09/09/18 at 10:00 Duloxetine HCl (Cymbalta) 90 mg DAILY PO Last administered on 09/09/18 09:27; Start 09/09/18 at 10:00 Metoclopramide HCl (Reglan Oral Solution) 5 mg TIDACHC PO ; Start 09/09/18 at 11 :30; Stop 09/09/18 at 12:28; Status DC Pantoprazole Sodium (Protonix) 40 mg DAILYAC PO Last administered on 09/09/18 09:31; Start 09/09/18 at 10:00; Stop 09/09/18 at 12:28; Status DC Zolpidem Tartrate (Ambien) 5 mg PRN QHS PRN PO INSOMNIA Last administered on 20:42; Start 09/09/18 at 08:45 Fentanyl Citrate (Fentanyl 2ml Vial) 25 mcg PRN Q2HR PRN IV PAIN Last administered on 09/09/18 09:28; Start 09/09/18 at 08:45; Stop 09/09/18 at 12:21 ; Status DC Piperacillin Sod/ Tazobactam Sod 2.25 gm/Sodium Chloride 50 ml @ 100 mls/hr Q6HRS IV Last administered on 09/10/18 12:23; Start 09/09/18 at 12:00 Sodium Chloride 1,000 ml @ 100 mls/hr Q10H IV Last administered on 09/10/18 05:50; Start 09/09/18 at 11:30 Fentanyl Citrate (Fentanyl 2ml Vial) 50 mcg PRN Q2HR PRN IV PAIN Last administered on 09/09/18 20:42; Start 09/09/18 at 12:30 Metoclopramide HCl (Reglan Oral Solution) 5 mg PRN QID PRN PO emesis Last administered on 09/09/18 16:55; Start 09/09/18 at 12:30 Pantoprazole Sodium (PROTONIX VIAL for IV PUSH) 40 mg DAILYAC IVP Last administered on 09/10/18 09:36; Start 09/10/18 at 07:30 Lactobacillus Rhamnosus (Culturelle) 1 cap BID PO Last administered on 20:42; Start 09/09/18 at 21:00; Stop 09/10/18 at 15:02; Status DC Norepinephrine Bitartrate 250 ml @ 1.875 mls/ hr CONT PRN IV SEE I/O RECORD Last administered on 09/10/18 11:47; Start 09/10/18 at 03:15 Midazolam HCl 100 ml @ 5 mls/hr CONT PRN IV SEE I/O RECORD; Start 09/10/18 at 03:30 Sodium Bicarbonate (Sodium Bicarb Adult 8.4% Syr) 100 meq 1X ONCE IV Last administered on 09/10/18at 04:04; Start 09/10/18 at 04:00; Stop 09/10/18 at 04:01 ; Status DC Sodium Chloride 1,000 ml @ 1,000 mls/hr 1X ONCE IV Last administered on at 05:48; Start 09/10/18 at 05:45; Stop 09/10/18 at 06:44; Status DC Daptomycin 430 mg/ Sodium Chloride 50 ml @ 100 mls/hr Q48H IV Last administered on 09/10/18at 09:37; Start 09/10/18 at 09:00 Vasopressin 40 unit/Dextrose 102 ml @ 6 mls/hr CONT PRN IV SEE I/O RECORD; Start 09/10/18 at 15:15 Active Scripts Active Metoclopramide Hcl 10 Mg/10 Ml Solution 10 Mg PO TIDACHC 30 Days Alprazolam 0.25 Mg Tablet 0.25 Mg PO PRN TID PRN 30 Days Tylenol (Acetaminophen) 325 Mg Tablet 650 Mg PO PRN Q6HRS PRN 30 Days Cymbalta (Duloxetine Hcl) 30 Mg Capsule. 90 Mg PO DAILY 30 Days Reported Oxycodone Hcl Immed.release (Oxycodone Hcl) 10 Mg Tablet 10 Mg PO PRN Q6HRS PRN Reglan (Metoclopramide Hcl) 10 Mg Tablet 1 Tab PO QID Amlodipine Besylate 10 Mg Tablet 10 Mg PO DAILY Nexium Capsule (Esomeprazole Magnesium) 40 Mg Capsule. 1 Cap PO DAILY Allergies Allergies: Allergies Coded Allergies Type Severity Reaction Last Updated Verified levofloxacin Allergy Intermediate 08/19/18 Yes I S O L A T I O N *CONTACT* Allergy Unknown 08/19/18 Yes diphenhydramine HCl Adverse Reaction Intermediate "Jittery on the inside" 08/19 Yes morphine Adverse Reaction Intermediate BLACKOUT 08/19/18 Yes ROS Review of System The patient denies any associated fevers, chills, headache, ear pain, rhinorrhea , sore throat, stiff neck, productive cough, chest pain, shortness of breath, back or flank pain, abdominal pain, nausea, vomiting, diarrhea, constipation, dysuria, rash, numbness, weakness, tingling, incontinence, difficulty ambulating, or diaphoresis. Physical Exam Physical Exam General: Well developed, well nourished, no acute distress, well appearing HEENT: Pupils equally round and reactive to light, EOMI, no discharge, normal conjunctiva Neck: Supple, no nuchal rigidity, no JVD, trachea midline, no tenderness Cardiac: RRR, no murmurs, no gallops, no rubs Chest/Lungs: CTAB, no wheeze, no rhonchi, no crackles Abdomen: soft, non-distended, no guarding, no peritoneal signs, non-tender Back: No tenderness Extremities: no edema, pulses intact, non-tender,capillary refill <3 sec bilateral upper and lower extremities, Neuro: Alert and oriented x 4, no focal deficits, normal speech Vitals Vitals: Vital Signs Date Time Temp Pulse Resp B/P (MAP) Pulse Ox O2 Delivery O2 Flow Rate FiO2 09/10/18 15:00 120 20 84/57 (66) 98 Ventilator 09/10/18 12:00 98.1 98.1 09/09/18 23:00 6.0 Labs Labs Laboratory Tests Test 09/09/18 00:14 09/09/18 00:20 09/09/18 01:30 09/10/18 00:45 Bedside Urine HCG, Qualitative Hcg negative (Negative) Urine Collection Type Unknown Urine Color Yellow Urine Clarity Cloudy Urine pH 6.0 Urine Specific [place] 1.025 Urine Protein Negative mg/dL (NEG-TRACE) Urine Glucose (UA) >=1000 mg/dL (NEG) Urine Ketones (Stick) Negative mg/dL (NEG) Urine Blood Large (NEG) Urine Nitrite Positive (NEG) Urine Bilirubin Negative (NEG) Urine Urobilinogen Dipstick 0.2 mg/dL (0.2 mg/dL) Urine Leukocyte Esterase Moderate (NEG) Urine RBC Tntc /HPF (0-2) Urine WBC Tntc /HPF (0-4) Urine Squamous Epithelial Cells Many /LPF Urine Bacteria Many /HPF (0-FEW) White Blood Count 13.4 x10^3/uL (4.0-11.0) Red Blood Count 3.12 x10^6/uL (3.50-5.40) Hemoglobin 8.1 g/dL (12.0-15.5) Hematocrit 25.0 % (36.0-47.0) Mean Corpuscular Volume 80 fL (79-100) Mean Corpuscular Hemoglobin 26 pg (25-35) Mean Corpuscular Hemoglobin Concent 32 g/dL (31-37) Red Cell Distribution Width 19.1 % (11.5-14.5) Platelet Count 417 x10^3/uL (140-400) Neutrophils (%) (Auto) 79 % (31-73) Lymphocytes (%) (Auto) 10 % (24-48) Monocytes (%) (Auto) 11 % (0-9) Eosinophils (%) (Auto) 0 % (0-3) Basophils (%) (Auto) 1 % (0-3) Neutrophils # (Auto) 10.5 x10^3uL (1.8-7.7) Lymphocytes # (Auto) 1.3 x10^3/uL (1.0-4.8) Monocytes # (Auto) 1.4 x10^3/uL (0.0-1.1) Eosinophils # (Auto) 0.0 x10^3/uL (0.0-0.7) Basophils # (Auto) 0.1 x10^3/uL (0.0-0.2) Sodium Level 133 mmol/L (136-145) Potassium Level 3.9 mmol/L (3.5-5.1) Chloride Level 93 mmol/L (98-107) Carbon Dioxide Level 21 mmol/L (21-32) Anion Gap 19 (6-14) Blood Urea Nitrogen 50 mg/dL (7-20) Creatinine 4.9 mg/dL (0.6-1.0) Estimated GFR (Cockcroft-Gault) 9.0 BUN/Creatinine Ratio 10 (6-20) Glucose Level 148 mg/dL (70-99) Calcium Level 9.3 mg/dL (8.5-10.1) Total Bilirubin 0.5 mg/dL (0.2-1.0) Aspartate Amino Transf (AST/SGOT) 27 U/L (15-37) Alanine Aminotransferase (ALT/SGPT) 18 U/L (14-59) Alkaline Phosphatase 88 U/L (46-116) Total Protein 8.0 g/dL (6.4-8.2) Albumin 3.1 g/dL (3.4-5.0) Albumin/Globulin Ratio 0.6 (1.0-1.7) Lipase 146 U/L (73-393) Lactic Acid Level 2.1 mmol/L (0.4-2.0) Test 09/10/18 02:35 09/10/18 02:46 09/10/18 03:36 09/10/18 05:42 Glucose (Fingerstick) 164 mg/dL (70-99) White Blood Count 21.5 x10^3/uL (4.0-11.0) Red Blood Count 2.81 x10^6/uL (3.50-5.40) Hemoglobin 7.2 g/dL (12.0-15.5) Hematocrit 24.7 % (36.0-47.0) Mean Corpuscular Volume 88 fL (79-100) Mean Corpuscular Hemoglobin 26 pg (25-35) Mean Corpuscular Hemoglobin Concent 29 g/dL (31-37) Red Cell Distribution Width 19.8 % (11.5-14.5) Platelet Count 296 x10^3/uL (140-400) Neutrophils (%) (Auto) 82 % (31-73) Lymphocytes (%) (Auto) 13 % (24-48) Monocytes (%) (Auto) 5 % (0-9) Eosinophils (%) (Auto) 0 % (0-3) Basophils (%) (Auto) 1 % (0-3) Neutrophils # (Auto) 17.6 x10^3uL (1.8-7.7) Lymphocytes # (Auto) 2.7 x10^3/uL (1.0-4.8) Monocytes # (Auto) 1.1 x10^3/uL (0.0-1.1) Eosinophils # (Auto) 0.0 x10^3/uL (0.0-0.7) Basophils # (Auto) 0.1 x10^3/uL (0.0-0.2) Segmented Neutrophils % 64 % (35-66) Band Neutrophils % 21 % (0-9) Lymphocytes % 12 % (24-48) Monocytes % 2 % (0-10) Metamyelocytes % 1 % (0-0) Toxic Granulation Slight Platelet Estimate Adequate (ADEQUATE) Polychromasia Slight Hypochromasia Slight Anisocytosis Slight Sodium Level 134 mmol/L (136-145) Potassium Level 5.2 mmol/L (3.5-5.1) Chloride Level 97 mmol/L (98-107) Carbon Dioxide Level 20 mmol/L (21-32) Anion Gap 17 (6-14) Blood Urea Nitrogen 55 mg/dL (7-20) Creatinine 5.3 mg/dL (0.6-1.0) Estimated GFR (Cockcroft-Gault) 8.2 BUN/Creatinine Ratio 10 (6-20) Glucose Level 365 mg/dL (70-99) Calcium Level 7.9 mg/dL (8.5-10.1) Total Bilirubin 0.4 mg/dL (0.2-1.0) Aspartate Amino Transf (AST/SGOT) 278 U/L (15-37) Alanine Aminotransferase (ALT/SGPT) 98 U/L (14-59) Alkaline Phosphatase 80 U/L (46-116) Troponin I Quantitative 0.050 ng/mL (0.000-0.055) Total Protein 5.7 g/dL (6.4-8.2) Albumin 1.8 g/dL (3.4-5.0) Albumin/Globulin Ratio 0.5 (1.0-1.7) O2 Saturation 85 % (92-99) Arterial Blood pH 7.07 (7.35-7.45) Arterial Blood pCO2 at Patient Temp 39 mmHg (35-46) Arterial Blood pO2 at Patient Temp 72 mmHg (65-108) Arterial Blood HCO3 11 mmol/L (21-28) Arterial Blood Base Excess -18 mmol/L (-3-3) FiO2 100 Nasal Screen MRSA (PCR) Positive (Negative) Test 09/10/18 05:50 09/10/18 07:40 Lactic Acid Level 8.7 mmol/L (0.4-2.0) O2 Saturation 98 % (92-99) Arterial Blood pH 7.37 (7.35-7.45) Arterial Blood pCO2 at Patient Temp 30 mmHg (35-46) Arterial Blood pO2 at Patient Temp 112 mmHg (65-108) Arterial Blood HCO3 17 mmol/L (21-28) Arterial Blood Base Excess -7 mmol/L (-3-3) FiO2 100 Laboratory Tests Test 09/10/18 00:45 09/10/18 02:35 09/10/18 02:46 09/10/18 03:36 Lactic Acid Level 2.1 mmol/L (0.4-2.0) Glucose (Fingerstick) 164 mg/dL (70-99) White Blood Count 21.5 x10^3/uL (4.0-11.0) Red Blood Count 2.81 x10^6/uL (3.50-5.40) Hemoglobin 7.2 g/dL (12.0-15.5) Hematocrit 24.7 % (36.0-47.0) Mean Corpuscular Volume 88 fL (79-100) Mean Corpuscular Hemoglobin 26 pg (25-35) Mean Corpuscular Hemoglobin Concent 29 g/dL (31-37) Red Cell Distribution Width 19.8 % (11.5-14.5) Platelet Count 296 x10^3/uL (140-400) Neutrophils (%) (Auto) 82 % (31-73) Lymphocytes (%) (Auto) 13 % (24-48) Monocytes (%) (Auto) 5 % (0-9) Eosinophils (%) (Auto) 0 % (0-3) Basophils (%) (Auto) 1 % (0-3) Neutrophils # (Auto) 17.6 x10^3uL (1.8-7.7) Lymphocytes # (Auto) 2.7 x10^3/uL (1.0-4.8) Monocytes # (Auto) 1.1 x10^3/uL (0.0-1.1) Eosinophils # (Auto) 0.0 x10^3/uL (0.0-0.7) Basophils # (Auto) 0.1 x10^3/uL (0.0-0.2) Segmented Neutrophils % 64 % (35-66) Band Neutrophils % 21 % (0-9) Lymphocytes % 12 % (24-48) Monocytes % 2 % (0-10) Metamyelocytes % 1 % (0-0) Toxic Granulation Slight Platelet Estimate Adequate (ADEQUATE) Polychromasia Slight Hypochromasia Slight Anisocytosis Slight Sodium Level 134 mmol/L (136-145) Potassium Level 5.2 mmol/L (3.5-5.1) Chloride Level 97 mmol/L (98-107) Carbon Dioxide Level 20 mmol/L (21-32) Anion Gap 17 (6-14) Blood Urea Nitrogen 55 mg/dL (7-20) Creatinine 5.3 mg/dL (0.6-1.0) Estimated GFR (Cockcroft-Gault) 8.2 BUN/Creatinine Ratio 10 (6-20) Glucose Level 365 mg/dL (70-99) Calcium Level 7.9 mg/dL (8.5-10.1) Total Bilirubin 0.4 mg/dL (0.2-1.0) Aspartate Amino Transf (AST/SGOT) 278 U/L (15-37) Alanine Aminotransferase (ALT/SGPT) 98 U/L (14-59) Alkaline Phosphatase 80 U/L (46-116) Troponin I Quantitative 0.050 ng/mL (0.000-0.055) Total Protein 5.7 g/dL (6.4-8.2) Albumin 1.8 g/dL (3.4-5.0) Albumin/Globulin Ratio 0.5 (1.0-1.7) O2 Saturation 85 % (92-99) Arterial Blood pH 7.07 (7.35-7.45) Arterial Blood pCO2 at Patient Temp 39 mmHg (35-46) Arterial Blood pO2 at Patient Temp 72 mmHg (65-108) Arterial Blood HCO3 11 mmol/L (21-28) Arterial Blood Base Excess -18 mmol/L (-3-3) FiO2 100 Test 09/10/18 05:42 09/10/18 05:50 09/10/18 07:40 Nasal Screen MRSA (PCR) Positive (Negative) Lactic Acid Level 8.7 mmol/L (0.4-2.0) O2 Saturation 98 % (92-99) Arterial Blood pH 7.37 (7.35-7.45) Arterial Blood pCO2 at Patient Temp 30 mmHg (35-46) Arterial Blood pO2 at Patient Temp 112 mmHg (65-108) Arterial Blood HCO3 17 mmol/L (21-28) Arterial Blood Base Excess -7 mmol/L (-3-3) FiO2 100 ITALIA SESAY MD Sep 10, 2018 16:12
--- NOTE | 2018-09-10 16:12 | PN ---
DATE: ADDENDUM I have had a lengthy discussion with the entire family. 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 Per the patient's wishes, the patient does not want to live on invasive means and does not want her life support to continue. They have already discussed that they did not want to pursue with dialysis either. After all other family members are here, they will withdraw the care and the patient will be comfort care. The patient is not expected to survive longer. Palliative care will help with the family as well. LONG FOWLER MD DR: NADIRA/hal JOB#: [id number] / [id number]
--- NOTE | 2018-09-10 16:45 | NUR ---
[facility] staff here to speak with the family about donation.
--- NOTE | 2018-09-10 17:12 | NUR ---
Pt asystole on the monitor.
--- NOTE | 2018-09-10 18:15 | PDOC3 ---
Discharge Summary Date of Admission: Sep 09, 2018 Date of Discharge: Sep 10, 2018 Follow-Up: Other () Admitting Diagnosis comment: summary ======== Assessment/Plan Cardiac arrest on the Floor. 09/10 0300 Patient last seen 35 minutes prior to calling ruben lanier. acls protocal initiated by Nursing. er responded Patient had received 1 epi patient was intubated 7.5 cuffed ET tube. transferred to icu, pulm and cardiology consulted 09/10 Diffuse haziness in the right lung likely infectious or interstitial edema. 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 History of C. difficile- Sepsis POA etoh abuse hx Anxiety NOS Depression lactic acidosis PLAN: pt after extubation this evening iv zosyn, daptomycin HIDA scan verifies CT findings Zyvox for VRE UTI consult ID Contact isolation supportive meds CIWA protocoL NEUROLOGY CONSULT, FAMILY CONSIDERING EEG VS COMFORT MEASURES PALLIATIVE CARE CONSULT FOR GOALS OF TREATMENT 37 MIN CC TIME Vitals Vitals Vital Signs Date Time Temp Pulse Resp B/P (MAP) Pulse Ox O2 Delivery O2 Flow Rate FiO2 09/10/18 11:32 95 Ventilator 09/10/18 09:00 107 20 113/62 (79) 09/10/18 08:00 98.3 98.3 09/09/18 23:00 6.0 Physical Exam Physical Exam VITAL SIGNS: febrile on vent and vasopressors CONSTITUTIONAL: orally intubated on vent HEENT: Pupils equal and reactive. Normal conjunctivae. Oral cavity, pharynx clear. NECK: Supple, no JVD. LUNGS: Clear to auscultation. HEART: S1, S2. ABDOMEN: Soft, mildly distended. There is tenderness and there is no guarding, but there is mild rebound. EXTREMITIES: No clubbing or cyanosis. No gross edema. SKIN: Warm to touch without signs of rash. NEUROLOGIC: sedated on vent PSYCHIATRIC: sedated on vent General: Other (intubated and sedated) Heart: Regular rate, Normal S1, Normal S2 Lungs: Clear Abdomen: Soft Extremities: No clubbing, No cyanosis, No edema, Normal pulses, No tenderness/ swelling Skin: No rashes, No breakdown, No significant lesion FINAL DIAGNOSIS Problems Medical Problems: (1) Abdominal pain Status: Acute (2) Acute on chronic kidney failure Status: Acute (3) Cardiac arrest Status: Acute (4) Urinary tract infection Status: Acute Brief Hospital Course Ms. Rodriguez is a 63 old [sex] who presented with [ ] CONDITION AT DISCHARGE: / () Discharge Medications Current Medications Ceftriaxone Sodium (Rocephin Im) 1 gm 1X ONCE IM Last administered on at 02:05; Start 09/09/18 at 00:45; Stop 09/09/18 at 00:46; Status DC Sodium Chloride 1,000 ml @ 1,000 mls/hr 1X ONCE IV Last administered on at 02:04; Start 09/09/18 at 01:45; Stop 09/09/18 at 02:44; Status DC Ondansetron HCl (Zofran) 4 mg 1X ONCE IV Last administered on 09/09/18at 01:45 ; Start 09/09/18 at 01:45; Stop 09/09/18 at 01:46; Status DC Sodium Chloride 1,000 ml @ 1,000 mls/hr 1X ONCE IV Last administered on at 03:00; Start 09/09/18 at 03:00; Stop 09/09/18 at 03:59; Status DC Ondansetron HCl (Zofran) 4 mg PRN Q8HRS PRN IV NAUSEA/VOMITING Last administered on 09/09/18at 07:55; Start 09/09/18 at 03:00; Stop 09/09/18 at 08:37 ; Status DC Tramadol HCl (Ultram) 50 mg PRN Q6HRS PRN PO MILD PAIN Last administered on 06/18at 05:42; Start 09/09/18 at 05:30 Oxycodone HCl (Roxicodone) 5 mg PRN Q4HRS PRN PO MODERATE - SEVERE PAIN Last administered on 09/09/18at 16:09; Start 09/09/18 at 05:30 Ondansetron HCl (Zofran) 4 mg PRN Q6HRS PRN IV NAUSEA/VOMITING; Start 09/09/18 at 08:45 Linezolid/Dextrose 300 ml @ 300 mls/hr Q12HR IV Last administered on at 20:43; Start 09/09/18 at 10:00; Stop 09/10/18 at 08:37; Status DC Acetaminophen (Tylenol) 650 mg PRN Q6HRS PRN PO Headaches, Temp > 101.5F Last administered on 09/09/18 23:33; Start 09/09/18 at 08:45 Alprazolam (Xanax) 0.25 mg PRN TID PRN PO ANXIETY / AGITATION, 1ST CHOIC Last administered on 09/09/18 09:28; Start 09/09/18 at 08:45 Amlodipine Besylate (Norvasc) 10 mg DAILY PO Last administered on 09/09/18 09: 27; Start 09/09/18 at 10:00 Duloxetine HCl (Cymbalta) 90 mg DAILY PO Last administered on 09/09/18 09:27; Start 09/09/18 at 10:00 Metoclopramide HCl (Reglan Oral Solution) 5 mg TIDACHC PO ; Start 09/09/18 at 11 :30; Stop 09/09/18 at 12:28; Status DC Pantoprazole Sodium (Protonix) 40 mg DAILYAC PO Last administered on 09/09/18 09:31; Start 09/09/18 at 10:00; Stop 09/09/18 at 12:28; Status DC Zolpidem Tartrate (Ambien) 5 mg PRN QHS PRN PO INSOMNIA Last administered on 20:42; Start 09/09/18 at 08:45 Fentanyl Citrate (Fentanyl 2ml Vial) 25 mcg PRN Q2HR PRN IV PAIN Last administered on 09/09/18 09:28; Start 09/09/18 at 08:45; Stop 09/09/18 at 12:21 ; Status DC Piperacillin Sod/ Tazobactam Sod 2.25 gm/Sodium Chloride 50 ml @ 100 mls/hr Q6HRS IV Last administered on 09/10/18 12:23; Start 09/09/18 at 12:00 Sodium Chloride 1,000 ml @ 100 mls/hr Q10H IV Last administered on 09/10/18 05:50; Start 09/09/18 at 11:30 Fentanyl Citrate (Fentanyl 2ml Vial) 50 mcg PRN Q2HR PRN IV PAIN Last administered on 09/09/18 20:42; Start 09/09/18 at 12:30 Metoclopramide HCl (Reglan Oral Solution) 5 mg PRN QID PRN PO emesis Last administered on 09/09/18 16:55; Start 09/09/18 at 12:30 Pantoprazole Sodium (PROTONIX VIAL for IV PUSH) 40 mg DAILYAC IVP Last administered on 09/10/18 09:36; Start 09/10/18 at 07:30 Lactobacillus Rhamnosus (Culturelle) 1 cap BID PO Last administered on 20:42; Start 09/09/18 at 21:00; Stop 09/10/18 at 15:02; Status DC Norepinephrine Bitartrate 250 ml @ 1.875 mls/ hr CONT PRN IV SEE I/O RECORD Last administered on 09/10/18at 11:47; Start 09/10/18 at 03:15 Midazolam HCl 100 ml @ 5 mls/hr CONT PRN IV SEE I/O RECORD; Start 09/10/18 at 03:30 Sodium Bicarbonate (Sodium Bicarb Adult 8.4% Syr) 100 meq 1X ONCE IV Last administered on 09/10/18 04:04; Start 09/10/18 at 04:00; Stop 09/10/18 at 04:01 ; Status DC Sodium Chloride 1,000 ml @ 1,000 mls/hr 1X ONCE IV Last administered on 05:48; Start 09/10/18 at 05:45; Stop 09/10/18 at 06:44; Status DC Daptomycin 430 mg/ Sodium Chloride 50 ml @ 100 mls/hr Q48H IV Last administered on 09/10/18 09:37; Start 09/10/18 at 09:00 Vasopressin 40 unit/Dextrose 102 ml @ 6 mls/hr CONT PRN IV SEE I/O RECORD Last administered on 09/10/18 15:47; Start 09/10/18 at 15:15 Active Scripts Active Metoclopramide Hcl 10 Mg/10 Ml Solution 10 Mg PO TIDACHC 30 Days Alprazolam 0.25 Mg Tablet 0.25 Mg PO PRN TID PRN 30 Days Tylenol (Acetaminophen) 325 Mg Tablet 650 Mg PO PRN Q6HRS PRN 30 Days Cymbalta (Duloxetine Hcl) 30 Mg Capsule.dr 90 Mg PO DAILY 30 Days Reported Oxycodone Hcl Immed.release (Oxycodone Hcl) 10 Mg Tablet 10 Mg PO PRN Q6HRS PRN Reglan (Metoclopramide Hcl) 10 Mg Tablet 1 Tab PO QID Amlodipine Besylate 10 Mg Tablet 10 Mg PO DAILY Nexium Capsule (Esomeprazole Magnesium) 40 Mg Capsule. 1 Cap PO DAILY Vital Signs Vital Signs Date Time Temp Pulse Resp B/P (MAP) Pulse Ox O2 Delivery O2 Flow Rate FiO2 09/10/18 17:00 122 20 74/48 (57) 95 Ventilator 09/10/18 12:00 98.1 98.1 09/09/18 23:00 6.0 Labs Laboratory Tests Test 09/09/18 00:14 09/09/18 00:20 09/09/18 01:30 09/10/18 00:45 Bedside Urine HCG, Qualitative Hcg negative (Negative) Urine Collection Type Unknown Urine Color Yellow Urine Clarity Cloudy Urine pH 6.0 Urine Specific [place] 1.025 Urine Protein Negative mg/dL (NEG-TRACE) Urine Glucose (UA) >=1000 mg/dL (NEG) Urine Ketones (Stick) Negative mg/dL (NEG) Urine Blood Large (NEG) Urine Nitrite Positive (NEG) Urine Bilirubin Negative (NEG) Urine Urobilinogen Dipstick 0.2 mg/dL (0.2 mg/dL) Urine Leukocyte Esterase Moderate (NEG) Urine RBC Tntc /HPF (0-2) Urine WBC Tntc /HPF (0-4) Urine Squamous Epithelial Cells Many /LPF Urine Bacteria Many /HPF (0-FEW) White Blood Count 13.4 x10^3/uL (4.0-11.0) Red Blood Count 3.12 x10^6/uL (3.50-5.40) Hemoglobin 8.1 g/dL (12.0-15.5) Hematocrit 25.0 % (36.0-47.0) Mean Corpuscular Volume 80 fL (79-100) Mean Corpuscular Hemoglobin 26 pg (25-35) Mean Corpuscular Hemoglobin Concent 32 g/dL (31-37) Red Cell Distribution Width 19.1 % (11.5-14.5) Platelet Count 417 x10^3/uL (140-400) Neutrophils (%) (Auto) 79 % (31-73) Lymphocytes (%) (Auto) 10 % (24-48) Monocytes (%) (Auto) 11 % (0-9) Eosinophils (%) (Auto) 0 % (0-3) Basophils (%) (Auto) 1 % (0-3) Neutrophils # (Auto) 10.5 x10^3uL (1.8-7.7) Lymphocytes # (Auto) 1.3 x10^3/uL (1.0-4.8) Monocytes # (Auto) 1.4 x10^3/uL (0.0-1.1) Eosinophils # (Auto) 0.0 x10^3/uL (0.0-0.7) Basophils # (Auto) 0.1 x10^3/uL (0.0-0.2) Sodium Level 133 mmol/L (136-145) Potassium Level 3.9 mmol/L (3.5-5.1) Chloride Level 93 mmol/L (98-107) Carbon Dioxide Level 21 mmol/L (21-32) Anion Gap 19 (6-14) Blood Urea Nitrogen 50 mg/dL (7-20) Creatinine 4.9 mg/dL (0.6-1.0) Estimated GFR (Cockcroft-Gault) 9.0 BUN/Creatinine Ratio 10 (6-20) Glucose Level 148 mg/dL (70-99) Calcium Level 9.3 mg/dL (8.5-10.1) Total Bilirubin 0.5 mg/dL (0.2-1.0) Aspartate Amino Transf (AST/SGOT) 27 U/L (15-37) Alanine Aminotransferase (ALT/SGPT) 18 U/L (14-59) Alkaline Phosphatase 88 U/L (46-116) Total Protein 8.0 g/dL (6.4-8.2) Albumin 3.1 g/dL (3.4-5.0) Albumin/Globulin Ratio 0.6 (1.0-1.7) Lipase 146 U/L (73-393) Lactic Acid Level 2.1 mmol/L (0.4-2.0) Test 09/10/18 02:35 09/10/18 02:46 09/10/18 03:36 09/10/18 05:42 Glucose (Fingerstick) 164 mg/dL (70-99) White Blood Count 21.5 x10^3/uL (4.0-11.0) Red Blood Count 2.81 x10^6/uL (3.50-5.40) Hemoglobin 7.2 g/dL (12.0-15.5) Hematocrit 24.7 % (36.0-47.0) Mean Corpuscular Volume 88 fL (79-100) Mean Corpuscular Hemoglobin 26 pg (25-35) Mean Corpuscular Hemoglobin Concent 29 g/dL (31-37) Red Cell Distribution Width 19.8 % (11.5-14.5) Platelet Count 296 x10^3/uL (140-400) Neutrophils (%) (Auto) 82 % (31-73) Lymphocytes (%) (Auto) 13 % (24-48) Monocytes (%) (Auto) 5 % (0-9) Eosinophils (%) (Auto) 0 % (0-3) Basophils (%) (Auto) 1 % (0-3) Neutrophils # (Auto) 17.6 x10^3uL (1.8-7.7) Lymphocytes # (Auto) 2.7 x10^3/uL (1.0-4.8) Monocytes # (Auto) 1.1 x10^3/uL (0.0-1.1) Eosinophils # (Auto) 0.0 x10^3/uL (0.0-0.7) Basophils # (Auto) 0.1 x10^3/uL (0.0-0.2) Segmented Neutrophils % 64 % (35-66) Band Neutrophils % 21 % (0-9) Lymphocytes % 12 % (24-48) Monocytes % 2 % (0-10) Metamyelocytes % 1 % (0-0) Toxic Granulation Slight Platelet Estimate Adequate (ADEQUATE) Polychromasia Slight Hypochromasia Slight Anisocytosis Slight Sodium Level 134 mmol/L (136-145) Potassium Level 5.2 mmol/L (3.5-5.1) Chloride Level 97 mmol/L (98-107) Carbon Dioxide Level 20 mmol/L (21-32) Anion Gap 17 (6-14) Blood Urea Nitrogen 55 mg/dL (7-20) Creatinine 5.3 mg/dL (0.6-1.0) Estimated GFR (Cockcroft-Gault) 8.2 BUN/Creatinine Ratio 10 (6-20) Glucose Level 365 mg/dL (70-99) Calcium Level 7.9 mg/dL (8.5-10.1) Total Bilirubin 0.4 mg/dL (0.2-1.0) Aspartate Amino Transf (AST/SGOT) 278 U/L (15-37) Alanine Aminotransferase (ALT/SGPT) 98 U/L (14-59) Alkaline Phosphatase 80 U/L (46-116) Troponin I Quantitative 0.050 ng/mL (0.000-0.055) Total Protein 5.7 g/dL (6.4-8.2) Albumin 1.8 g/dL (3.4-5.0) Albumin/Globulin Ratio 0.5 (1.0-1.7) Thyroid Stimulating Hormone (TSH) 2.556 uIU/mL (0.358-3.74) O2 Saturation 85 % (92-99) Arterial Blood pH 7.07 (7.35-7.45) Arterial Blood pCO2 at Patient Temp 39 mmHg (35-46) Arterial Blood pO2 at Patient Temp 72 mmHg (65-108) Arterial Blood HCO3 11 mmol/L (21-28) Arterial Blood Base Excess -18 mmol/L (-3-3) FiO2 100 Nasal Screen MRSA (PCR) Positive (Negative) Test 09/10/18 05:50 09/10/18 07:40 Lactic Acid Level 8.7 mmol/L (0.4-2.0) O2 Saturation 98 % (92-99) Arterial Blood pH 7.37 (7.35-7.45) Arterial Blood pCO2 at Patient Temp 30 mmHg (35-46) Arterial Blood pO2 at Patient Temp 112 mmHg (65-108) Arterial Blood HCO3 17 mmol/L (21-28) Arterial Blood Base Excess -7 mmol/L (-3-3) FiO2 100 Laboratory Tests Test 09/10/18 00:45 09/10/18 02:35 09/10/18 02:46 09/10/18 03:36 Lactic Acid Level 2.1 mmol/L (0.4-2.0) Glucose (Fingerstick) 164 mg/dL (70-99) White Blood Count 21.5 x10^3/uL (4.0-11.0) Red Blood Count 2.81 x10^6/uL (3.50-5.40) Hemoglobin 7.2 g/dL (12.0-15.5) Hematocrit 24.7 % (36.0-47.0) Mean Corpuscular Volume 88 fL (79-100) Mean Corpuscular Hemoglobin 26 pg (25-35) Mean Corpuscular Hemoglobin Concent 29 g/dL (31-37) Red Cell Distribution Width 19.8 % (11.5-14.5) Platelet Count 296 x10^3/uL (140-400) Neutrophils (%) (Auto) 82 % (31-73) Lymphocytes (%) (Auto) 13 % (24-48) Monocytes (%) (Auto) 5 % (0-9) Eosinophils (%) (Auto) 0 % (0-3) Basophils (%) (Auto) 1 % (0-3) Neutrophils # (Auto) 17.6 x10^3uL (1.8-7.7) Lymphocytes # (Auto) 2.7 x10^3/uL (1.0-4.8) Monocytes # (Auto) 1.1 x10^3/uL (0.0-1.1) Eosinophils # (Auto) 0.0 x10^3/uL (0.0-0.7) Basophils # (Auto) 0.1 x10^3/uL (0.0-0.2) Segmented Neutrophils % 64 % (35-66) Band Neutrophils % 21 % (0-9) Lymphocytes % 12 % (24-48) Monocytes % 2 % (0-10) Metamyelocytes % 1 % (0-0) Toxic Granulation Slight Platelet Estimate Adequate (ADEQUATE) Polychromasia Slight Hypochromasia Slight Anisocytosis Slight Sodium Level 134 mmol/L (136-145) Potassium Level 5.2 mmol/L (3.5-5.1) Chloride Level 97 mmol/L (98-107) Carbon Dioxide Level 20 mmol/L (21-32) Anion Gap 17 (6-14) Blood Urea Nitrogen 55 mg/dL (7-20) Creatinine 5.3 mg/dL (0.6-1.0) Estimated GFR (Cockcroft-Gault) 8.2 BUN/Creatinine Ratio 10 (6-20) Glucose Level 365 mg/dL (70-99) Calcium Level 7.9 mg/dL (8.5-10.1) Total Bilirubin 0.4 mg/dL (0.2-1.0) Aspartate Amino Transf (AST/SGOT) 278 U/L (15-37) Alanine Aminotransferase (ALT/SGPT) 98 U/L (14-59) Alkaline Phosphatase 80 U/L (46-116) Troponin I Quantitative 0.050 ng/mL (0.000-0.055) Total Protein 5.7 g/dL (6.4-8.2) Albumin 1.8 g/dL (3.4-5.0) Albumin/Globulin Ratio 0.5 (1.0-1.7) Thyroid Stimulating Hormone (TSH) 2.556 uIU/mL (0.358-3.74) O2 Saturation 85 % (92-99) Arterial Blood pH 7.07 (7.35-7.45) Arterial Blood pCO2 at Patient Temp 39 mmHg (35-46) Arterial Blood pO2 at Patient Temp 72 mmHg (65-108) Arterial Blood HCO3 11 mmol/L (21-28) Arterial Blood Base Excess -18 mmol/L (-3-3) FiO2 100 Test 09/10/18 05:42 09/10/18 05:50 09/10/18 07:40 Nasal Screen MRSA (PCR) Positive (Negative) Lactic Acid Level 8.7 mmol/L (0.4-2.0) O2 Saturation 98 % (92-99) Arterial Blood pH 7.37 (7.35-7.45) Arterial Blood pCO2 at Patient Temp 30 mmHg (35-46) Arterial Blood pO2 at Patient Temp 112 mmHg (65-108) Arterial Blood HCO3 17 mmol/L (21-28) Arterial Blood Base Excess -7 mmol/L (-3-3) FiO2 100 Allergies Allergies Coded Allergies Type Severity Reaction Last Updated Verified levofloxacin Allergy Intermediate 08/19/18 Yes I S O L A T I O N *CONTACT* Allergy Unknown 08/19/18 Yes diphenhydramine HCl Adverse Reaction Intermediate "Jittery on the inside" 08/19 Yes morphine Adverse Reaction Intermediate BLACKOUT 08/19/18 Yes Disposition/Orders: Other WEI COLLINS MD Sep 10, 2018 18:15
== END 2018-09-10 17:12 | disposition expired | DRG 871 ==
LOC: ER 23:31 → 5 NORTH 09-09 00:55 → 1 WEST ICU 09-10 03:11
PROVIDERS: ADMIT Internal Medicine; ATTEND Internal Medicine
PROC: 5A1935Z Respiratory Ventilation, Less than 24 Consecutive Hours (ICD-10-PCS; principal; 2018-09-10)
PROC: 0BH17EZ Insertion of Endotracheal Airway into Trachea, Via Natural or Artificial Opening (ICD-10-PCS; 2018-09-10)
DX: A41.9 Sepsis, unspecified organism (principal); G93.41 Metabolic encephalopathy; E43 Unspecified severe protein-calorie malnutrition; J96.01 Acute respiratory failure with hypoxia; N17.9 Acute kidney failure, unspecified; N39.0 Urinary tract infection, site not specified; N18.4 Chronic kidney disease, stage 4 (severe); G93.1 Anoxic brain damage, not elsewhere classified; R44.3 Hallucinations, unspecified; E87.2 Acidosis; I46.9 Cardiac arrest, cause unspecified; E11.22 Type 2 diabetes mellitus with diabetic chronic kidney disease; E86.0 Dehydration; I12.9 Hypertensive chronic kidney disease with stage 1 through stage 4 chronic kidney disease, or unspecified chronic kidney disease; K81.9 Cholecystitis, unspecified; M79.7 Fibromyalgia; E78.5 Hyperlipidemia, unspecified; K21.9 Gastro-esophageal reflux disease without esophagitis; F41.9 Anxiety disorder, unspecified; F32.9 Major depressive disorder, single episode, unspecified; Z96.659 Presence of unspecified artificial knee joint; K31.84 Gastroparesis; E11.43 Type 2 diabetes mellitus with diabetic autonomic (poly)neuropathy; D64.9 Anemia, unspecified; K82.8 Other specified diseases of gallbladder; Z51.5 Encounter for palliative care; F10.10 Alcohol abuse, uncomplicated; F12.90 Cannabis use, unspecified, uncomplicated; G89.29 Other chronic pain; K72.90 Hepatic failure, unspecified without coma; Z16.21 Resistance to vancomycin; Z68.27 Body mass index [BMI] 27.0-27.9, adult; Z82.49 Family history of ischemic heart disease and other diseases of the circulatory system; Z98.51 Tubal ligation status; Z88.6 Allergy status to analgesic agent; Z88.8 Allergy status to other drugs, medicaments and biological substances; N31.9 Neuromuscular dysfunction of bladder, unspecified; Z86.14 Personal history of Methicillin resistant Staphylococcus aureus infection; Z87.891 Personal history of nicotine dependence; Z91.19 Patient's noncompliance with other medical treatment and regimen; Z87.440 Personal history of urinary (tract) infections
CPT/HCPCS: 36415; 36600; 70450; 71045; 74176; 76705; 78226; 80053; 81001; 81025; 82805; 82962; 83605; 83690; 84443; 84484; 85007; 85025; 87040; 87086; 87186; 87641; 93005; 94002; 94003; 96361; 96372; 96374; A9537; C9113; J0696; J0878; J2020; J2405; J2543; J3010; J3490; J7030; J8597; 99285-25